=== PATIENT | male | born 1955 | race Hispanic/Latino ===

== ENCOUNTER 2018-02-18 11:12 | Emergency (ER) | payer OTHER ==
--- OUTSIDE RECORDS SUMMARY | 2018-02-18 11:14 | XMS REPORT | Clinical Summary ---
:1955 Author Organization [facility] Address [address] [place] [address] Care Team Providers Name Role Phone Michael Castaneda MD Primary Care Provider Unavailable Allergies No Known Allergies Current Medications Prescription Sig. Disp. Refills Start Date End Date Status insulin lispro (HumaLOG) Inject under the Active 100 unit/mL injection skin 2 (two) times a day before meals. (PER SLIDING SCALE) ARIPiprazole (ABILIFY) 10 Take 10 mg by Active MG tablet mouth every morning. esomeprazole (NexIUM) 40 Take 40 mg by Active MG capsule mouth every morning. FLUoxetine (PROzac) 20 MG Take 20 mg by Active capsule mouth 2 (two) times a day. gabapentin (NEURONTIN) 600 Take 600 mg by Active mg tablet mouth 3 (three) times a day. insulin detemir (LEVEMIR) Inject 20 Units Active 100 unit/mL injection under the skin 2 (two) times a day. tamsulosin (FLOMAX) 0.4 mg Take 0.4 mg by Active capsule,extended release mouth every 24hr morning. traZODone (DESYREL) 50 MG Take 50 mg by Active tablet mouth nightly as needed for sleep. venlafaxine XR Take 37.5 mg by Active (EFFEXOR-XR) 37.5 MG 24 hr mouth daily. capsule metFORMIN (GLUCOPHAGE) 500 Take 500 mg by Active mg tablet mouth 3 (three) times a day. cyanocobalamin 1000 MCG Take 1,000 mcg by Active tablet mouth every morning. ascorbic acid, vitamin C, Take 1,000 mg by Active (vitamin C) 1000 MG tablet mouth daily. cholecalciferol, vitamin Take 1,000 Units Active D3, (VITAMIN D3) 1,000 by mouth daily. unit tablet Active Problems Problem Noted Date Bradycardia 12/08/2016 Acidosis 12/08/2016 Parkinson disease 12/08/2016 Encounters Date Type Specialty Care Team Description 10/13/2017 Hospital Encounter Radiology Jessie García MD 10/13/2017 Hospital Encounter Radiology Jessie García MD Tremor 10/04/2017 Transcribe Orders Radiology Jessie García MD Tremor ( Primary Dx) after 02/17/2017 Social History Tobacco Use Types Packs/Day Years Used Date Never Smoker Alcohol Use Drinks/Week oz/Week Comments No Sex Assigned at Date Recorded Not on file Last Filed Vital Signs Not on file Plan of Treatment Health Maintenance Due Date Last Done Comments COLON CANCER SCREENING 2006 SHINGRIX VACCINE (#1) 2006 ZOSTER VACCINE 2016 INFLUENZA VACCINE 03/02/2018 Procedures Procedure Name Priority Date/Time Associated Diagnosis Comments NM BRAIN SPECT W I Routine 10/13/2017 2:43 PM Tremor Results for this 123 DATSCAN CDT procedure are in the results section. after 02/17/2017 Results NM Brain Spect W I 123 Datscan (10/13/2017 2:43 PM) Narrative Performed At PROCEDURE:NM BRAIN SPECT W I 123 DATSCAN [facility] INDICATION:Tremor. TECHNIQUE: The patient was pretreated with potassium iodide drops for thyroid protection and then injected with 4 mCi of I-123 DaTscan IV. Brain SPECT imaging was then performed. FINDINGS:Striatal uptake appears normal, bilaterally. IMPRESSION: 1.Normal study.No evidence for an underlying primary Parkinsonian syndrome. [facility]-[id number] Procedure Note Interface, Radiology Results Incoming - 10/13/2017 4:37 PM CDT PROCEDURE: NM BRAIN SPECT W I 123 DATSCAN INDICATION: Tremor. TECHNIQUE: The patient was pretreated with potassium iodide drops for thyroid protection and then injected with 4 mCi of I-123 DaTscan IV. Brain SPECT imaging was then performed. FINDINGS: Striatal uptake appears normal, bilaterally. IMPRESSION: 1. Normal study. No evidence for an underlying primary Parkinsonian syndrome. [facility]-[id number] Performing Organization Address City/State/Zipcode Phone Number [facility] [address] [place] [address] after 02/17/2017 Insurance Payer Benefit Plan / Group Subscriber ID Type Phone Address UHC MEDICARE AARP MEDICARE COMPLETE MCR xxxxxxxxx O [phone] [address] [place] [address]
[2018-02-18 11:42] LABS: Arterial Blood Carboxyhemoglob 1.7 % (0-1.5); Blood Gas Oxyhemoglobin 92.3 % (94-97); Blood O2 Saturation 94.5 % (92-98.5)
[2018-02-18 11:44] LABS: Protime INR 1.08
[2018-02-18 11:45] LABS: Absolute Lymphocytes (CBC) 2.1 K/uL (0.7-4.9); Absolute Monocytes 0.4 K/uL (0.1-1.3); Basophils % 0.7 % (0-1.3); Eosinophils % 2.9 % (0-4.4); Hematocrit 43.4 % (39.6-49.0); Lymphocytes % 46.1 % (15.3-44.8); MCH 32.1 pg (27.0-35.0); MCV 94.6 fL (80-100); MPV 9.3 fL (7.6-11.3); Monocytes % 7.8 % (3.3-12.3); RBC Red Blood Cell Count 4.59 M/uL (4.33-5.43)
--- NOTE | 2018-02-18 12:02 | RAD REPORT ---
EXAM DESCRIPTION: CT - Head Brain Wo Cont - 02/18/2018 11:44 am CLINICAL HISTORY: Transient alteration of awareness, patient found unresponsive COMPARISON: CT head November 2015 TECHNIQUE: Axial 5 mm thick images of the head were obtained without IV contrast. All CT scans are performed using dose optimization technique as appropriate and may include automated exposure control or mA/KV adjustment according to patient size. FINDINGS: No intracranial hemorrhage, mass, edema or shift of mid-line structures. No acute cortical based infarction. No cortical edema or sulcal effacement. Patient has underlying atrophy and chronic ischemic changes are mild to moderate in degree for the patient's age. Pattern is not substantially different from 2016. Ventricles are in proportion to any volume loss. No abnormal extra-axial fluid c ollections. Physiologic calcifications are present Mastoid air cells and visualized portions of the paranasal sinuses are clear. No acute bony findings. IMPRESSION: No hemorrhage, edema or other acute intracranial finding. Atrophy and chronic ischemic pattern similar to the 2016.
[2018-02-18 12:35] LABS: Urine Blood NEGATIVE (NEG); Urine Glucose 3+ (NEG); Urine Protein NEGATIVE (NEG)
[2018-02-18 12:40] LABS: Barbiturates NEGATIVE (NEGATIVE); Benzodiazepines POSITIVE (NEGATIVE); Cocaine NEGATIVE (NEGATIVE); METHAMPHETAM NEGATIVE (NEGATIVE); Methadone NEGATIVE (NEGATIVE); Opiates NEGATIVE (NEGATIVE); Phencyclidine NEGATIVE (NEGATIVE); THC Cannibis NEGATIVE (NEGATIVE); Urine Bacteria NONE SEEN /HPF (NONE SEEN); Urine RBC NONE SEEN /HPF (NONE SEEN)
[2018-02-18 12:41] LABS: Urine Amorphous Sediment 2+ /HPF (NONE SEEN); Urine Culture Reflex Order NOT NEEDED
[2018-02-18 13:16] LABS: Albumin 3.4 g/dL (3.4-5.0); Bilirubin Direct 0.1 mg/dL (0-0.2); Bilirubin Total 0.5 mg/dL (0.2-1.0); Potassium 3.9 mmol/L (3.5-5.1); Protein, Total 8.3 g/dL (6.4-8.2)
--- NOTE | 2018-02-18 13:35 | RAD REPORT ---
EXAM DESCRIPTION: Itzel Single View02/18/2018 1:25 pm CLINICAL HISTORY: Shortness breath COMPARISON: 2017 FINDINGS: The lungs appear clear of acute infiltrate. The heart is normal size IMPRESSION: No acute abnormalities displayed
[2018-02-18] MEDS ORDERED: NA CHLORIDE 0.9% 1,000 ML ONE (14:33)
--- NOTE | 2018-02-18 15:14 | ER ---
Nurse's Notes [facility] Name: David Lopez Age: 62 yrs Sex: Male : 1955 Arrival Date: 02/18/2018 Time: 11:13 Bed 2 Private MD: Diagnosis: Altered mental status, unspecified Presentation: 02/18 11:16 Presenting complaint: EMS states: family called, the was unresponsive, family was tw2 crying, not much information given from family. Transition of care: patient was not received from another setting of care. Onset of symptoms was February 18, 2018. Risk Assessment: Do you want to hurt yourself or someone else? Patient reports no desire to harm self or others. Care prior to arrival: None. 11:16 Method Of Arrival: EMS: [facility] tw2 11:16 Acuity: LEANNA 2 tw2 11:44 Initial Sepsis Screen: Does the patient meet any 2 criteria? Altered Mental Status. hb Does the patient have a suspected source of infection? No. Patient's initial sepsis screen is negative. Historical: - Allergies: 11:15 No Known Allergies; tw2 - Home Meds: 11:21 tamsulosin 0.4 mg oral cp24 1 cap once daily [Active]; simvastatin 20 mg Oral tab 1 tab iw once daily [Active]; gemfibrozil 600 mg Oral tab daily [Active]; sotalol 80 mg Oral tab 1 tab 2 times per day [Active]; trazodone 50 mg Oral tab nightly [Active]; fluoxetine 40 mg Oral cap 1 cap once daily [Active]; Lyrica 50 mg Oral daily [Active]; oxycodone-acetaminophen 10-650 mg Oral tab every 4 hours [Active]; gabapentin 600 mg oral tab 1 tab 3 times per day [Active]; Risperdal 2 mg Oral tab 1 tab once daily [Active]; alprazolam 1 mg Oral TbDL 1 tab 3 times per day [Active]; omeprazole 20 mg Oral cpDR 1 cap once daily [Active]; - PMHx: 11:15 CVA; Parkinsons; kidney failure; NIDDM; Diabetes - IDDM; Hypertension; tw2 - Immunization history:: Adult Immunizations. - Social history:: Smoking status: unknown. - Ebola Screening: : Patient denies travel to an Ebola-affected area in the 21 days before illness onset Patient negative for fever greater than or equal to 101.5 degrees Fahrenheit, and additional compatible Ebola Virus Disease symptoms Patient denies exposure to infectious person Patient denies travel to an Ebola-affected area in the 21 days before illness onset No symptoms or risks identified at this time. Screenin:18 Abuse screen: Denies threats or abuse. Nutritional screening: No deficits noted. tw2 Tuberculosis screening: No symptoms or risk factors identified. Fall Risk Secondary diagnosis (15 points) impaired mobility, CVA. Assessment: 11:20 General: Appears in no apparent distress. Behavior is Responsive to painful stimuli. hb Pain: Unable to use pain scale. FLACC scale score is 0 out of 10. Neuro: Level of Consciousness is obtunded, Oriented to none Speech is slurred, Pupils are PERRLA, sluggish. Cardiovascular: Heart tones S1 S2 present Capillary refill < 3 seconds Patient's skin is warm and dry. Rhythm is regular. Respiratory: Airway is patent Trachea midline Respiratory effort is even, unlabored, Respiratory pattern is regular, symmetrical, Breath sounds are clear bilaterally. GI: Abdomen is non-distended, Bowel sounds present X 4 quads. Abd is soft and non tender X 4 quads. : No signs and/or symptoms were reported regarding the genitourinary system. Genitalia appear normal. EENT: No deficits noted. Derm: Skin is intact, is healthy with good turgor, Skin is pink, warm \T\ dry. Musculoskeletal: Capillary refill < 3 seconds. 11:39 Reassessment: Pt transported to CT via stretcher with tech. hb 12:00 Reassessment: Patient appears in no apparent distress at this time. No changes from hb previously documented assessment. Patient and/or family updated on plan of care and expected duration. Pain level reassessed. 13:00 Reassessment: Patient appears in no apparent distress at this time. No changes from hb previously documented assessment. Patient and/or family updated on plan of care and expected duration. Pain level reassessed. 13:32 Reassessment: BRICE Avalos at bedside with . hb 15:05 Reassessment: Patient appears in no apparent distress at this time. Patient and/or hb family updated on plan of care and expected duration. Pain level reassessed. pt more alert at this time, eyes open and responds to verbal stimuli. 15:41 Reassessment: Patient appears in no apparent distress at this time. No changes from hb previously documented assessment. Patient and/or family updated on plan of care and expected duration. Pain level reassessed. 16:30 Reassessment: Patient appears in no apparent distress at this time. No changes from hb previously documented assessment. Patient and/or family updated on plan of care and expected duration. Pain level reassessed. Pt remains confused, alert to person and place only. Transfer to [facility] pending. 17:07 Reassessment: Patient appears in no apparent distress at this time. No changes from tw2 previously documented assessment. Patient and/or family updated on plan of care and expected duration. Pain level reassessed. Vital Signs: 11:17 BP 167 / 80; Pulse 64; Resp 17; Temp 98.7(A); Pulse Ox 98% on R/A; tw2 11:53 BP 136 / 71; Pulse 63; Resp 15; Pulse Ox 100% on R/A; hb 13:07 BP 136 / 80; Pulse 61; Resp 14; Pulse Ox 96% on R/A; tw2 13:30 BP 139 / 68; Pulse 59; Resp 16; Pulse Ox 96% on R/A; hb 14:00 BP 140 / 63; Pulse 62; Resp 17; Pulse Ox 96% on R/A; tw2 15:06 BP 143 / 63; Pulse 63; Resp 15; Pulse Ox 98% on R/A; tw2 15:41 BP 151 / 63; Pulse 63; Resp 16; Pulse Ox 96% on R/A; tw2 16:56 BP 129 / 55; Pulse 62; Resp 15; Pulse Ox 96% on R/A; hb [place] Coma Score: 11:27 Eye Response: to pain(2). Verbal Response: incomprehensible(2). Motor Response: jr8 localizes pain(5). Total: 9. ED Course: 11:13 Patient arrived in ED. tw2 11:17 Triage completed. tw2 11:17 Inserted saline lock: 20 gauge in right antecubital area, using aseptic technique. tw2 ,using aseptic technique. per BERNY Martinez Blood collected. 11:18 Robbie Brown PA is PHCP. jr8 11:18 Scooter Hill MD is Attending Physician. jr8 11:18 Arm band placed on. tw2 11:18 Bed in low position. Call light in reach. Side rails up X2. supervisor cabinetmaker on. Pulse tw2 ox on. NIBP on. 11:32 Michelle Alvarez, RN is Primary Nurse. hb 11:37 Mckeon cath inserted, using sterile technique, 16 Fr., by la, balloon inflated, to hb gravity drainage, urine specimen collected. returned clear yellow urine. Patient tolerated well. 11:[address] via stretcher. nj 11:44 CT Head Brain wo Cont In Process Unspecified. EDMS 12:07 EKG done, by geotechnical intern. reviewed by Scooter Hill MD. tc 13:26 Chest Single View XRAY In Process Unspecified. EDMS Administered Medications: 14:33 Drug: NS 0.9% 1000 ml Route: IV; Rate: 75 ml/hr; Site: right antecubital; tw2 17:07 Follow up: IV Status: Infusion continued upon transfer tw2 Outcome: 15:14 ER care complete, transfer ordered by . jr8 17:14 Patient left the ED. hb Signatures: Dispatcher [employer] EDMS Joi Zheng RN RN iw Robbie Brown PA PA jr8 Sarah Guardado, taxi truck driver EKG Ttc Michelle Alvarez RN RN Marsha Enriquez RN RN tw2 Kailash Delgado Corrections: (The following items were deleted from the chart) 11:22 11:15 PMHx: CVA; iw iw 11:22 11:15 PMHx: Diabetes - IDDM; iw iw 11 11:15 PMHx: Hypertension; iw iw 11: 11:15 PMHx: kidney failure; iw iw 11:15 PMHx: NIDDM; iw iw 11:22 11:15 PMHx: Parkinsons; iw iw 16:54 15:05 Reassessment: Patient appears in no apparent distress at this time. Patient hb and/or family updated on plan of care and expected duration. Pain level reassessed. Patient is alert, oriented x 3, equal unlabored respirations, skin warm/dry/pink. pt more alert at this time, eyes open and responds to verbal stimuli tw2 16:55 15:05 Reassessment: Patient appears in no apparent distress at this time. Patient hb and/or family updated on plan of care and expected duration. Pain level reassessed. Patient is alert, oriented x 3, equal unlabored respirations, skin warm/dry/pink. pt more alert at this time, eyes open and responds to verbal stimuli hb 16:55 15:41 Reassessment: Patient appears in no apparent distress at this time. No changes hb from previously documented assessment. Patient and/or family updated on plan of care and expected duration. Pain level reassessed. Patient is alert, oriented x 3, equal unlabored respirations, skin warm/dry/pink. tw2
--- NOTE | 2018-02-18 15:14 | EDPHYS ---
Physician Documentation [facility] Name: David Lopez Age: 62 yrs Sex: Male : 1955 Arrival Date: 02/18/2018 Time: 11:13 Bed 2 Private MD: ED Physician Scooter Hill HPI: 02/18 11:27 This 62 yrs old Male presents to ER via EMS with complaints of Unresponsive. jr8 11:27 Onset: The symptoms/episode began/occurred acutely, today. Severity of symptoms: At jr8 their worst the symptoms were moderate in the emergency department the symptoms are unchanged. Patient's baseline: Neuro: alert and fully oriented, Speech: normal. It is unknown whether or not the patient has had similar symptoms in the past. It is unknown whether or not the patient has recently seen a physician. Patient came in by EMS after being called out for unresponsive patient. EMS stated that family found him like that. Last known normal unknown. Patient upon arrival on responsive to painful stimulus. Speech incomprehensible . Historical: - Allergies: 11:15 No Known Allergies; tw2 - Home Meds: 11:21 tamsulosin 0.4 mg oral cp24 1 cap once daily [Active]; simvastatin 20 mg Oral tab 1 tab iw once daily [Active]; gemfibrozil 600 mg Oral tab daily [Active]; sotalol 80 mg Oral tab 1 tab 2 times per day [Active]; trazodone 50 mg Oral tab nightly [Active]; fluoxetine 40 mg Oral cap 1 cap once daily [Active]; Lyrica 50 mg Oral daily [Active]; oxycodone-acetaminophen 10-650 mg Oral tab every 4 hours [Active]; gabapentin 600 mg oral tab 1 tab 3 times per day [Active]; Risperdal 2 mg Oral tab 1 tab once daily [Active]; alprazolam 1 mg Oral TbDL 1 tab 3 times per day [Active]; omeprazole 20 mg Oral cpDR 1 cap once daily [Active]; - PMHx: 11:15 CVA; Parkinsons; kidney failure; NIDDM; Diabetes - IDDM; Hypertension; tw2 - Immunization history:: Adult Immunizations. - Social history:: Smoking status: unknown. - Ebola Screening: : Patient denies travel to an Ebola-affected area in the 21 days before illness onset Patient negative for fever greater than or equal to 101.5 degrees Fahrenheit, and additional compatible Ebola Virus Disease symptoms Patient denies exposure to infectious person Patient denies travel to an Ebola-affected area in the 21 days before illness onset No symptoms or risks identified at this time. ROS: 11:27 Unable to obtain ROS due to altered mental status. jr8 Exam: 11:27 Head/Face: Normocephalic, atraumatic. Eyes: Pupils equal round and reactive to light jr8 but sluggish. Lids and lashes normal. Conjunctiva and sclera are non-icteric and not injected. Cornea within normal limits. Periorbital areas with no swelling, redness, or edema. ENT: Nares patent. No nasal discharge, no septal abnormalities noted. Tympanic membranes are normal and external auditory canals are clear. Oropharynx with no redness, swelling, or masses, exudates, or evidence of obstruction, uvula midline. Mucous membranes moist. Cardiovascular: Regular rate and rhythm with a normal S1 and S2. No gallops, murmurs, or rubs. Normal PMI, no JVD. No pulse deficits. Respiratory: Lungs have equal breath sounds bilaterally, clear to auscultation and percussion. No rales, rhonchi or wheezes noted. No increased work of breathing, no retractions or nasal flaring. Abdomen/GI: Soft, non-tender, with normal bowel sounds. No distension or tympany Skin: Warm, dry with normal turgor. Normal color with no rashes, no lesions, and no evidence of cellulitis. 11:27 Neuro: Orientation: Not oriented to person, place, time, situation, Mentation: slow to respond, confused, unable to follow commands, somnolent, responsive to pain, seizure activity, is not displayed by the patient, Abnormal movements: there are no abnormal movements. 15:14 Radiologist reports: negative for acute findings jr8 Vital Signs: 11:17 BP 167 / 80; Pulse 64; Resp 17; Temp 98.7(A); Pulse Ox 98% on R/A; tw2 11:53 BP 136 / 71; Pulse 63; Resp 15; Pulse Ox 100% on R/A; hb 13:07 BP 136 / 80; Pulse 61; Resp 14; Pulse Ox 96% on R/A; tw2 13:30 BP 139 / 68; Pulse 59; Resp 16; Pulse Ox 96% on R/A; hb 14:00 BP 140 / 63; Pulse 62; Resp 17; Pulse Ox 96% on R/A; tw2 15:06 BP 143 / 63; Pulse 63; Resp 15; Pulse Ox 98% on R/A; tw2 15:41 BP 151 / 63; Pulse 63; Resp 16; Pulse Ox 96% on R/A; tw2 16:56 BP 129 / 55; Pulse 62; Resp 15; Pulse Ox 96% on R/A; hb [place] Coma Score: 11:27 Eye Response: to pain(2). Verbal Response: incomprehensible(2). Motor Response: jr8 localizes pain(5). Total: 9. MDM: 11:18 Patient medically screened. jr8 14:29 Data reviewed: vital signs, nurses notes, lab test result(s), EKG, radiologic studies, jr8 CT scan, plain films. Data interpreted: Pulse oximetry: on room air is 96 %. Interpretation: normal. Counseling: I had a detailed discussion with the patient and/or guardian regarding: the historical points, exam findings, and any diagnostic results supporting the discharge/admit diagnosis, lab results, radiology results, the need for further work-up and treatment in the hospital. ED course: The of showed up after a while. I went in to introduce myself and discussed with her that thus far all labs and imaging along with EKG has been unremarkable. Before being able to finish talking to her she cut me off and asked if I was a doctor. I told her I was a PA and she goes on to say that she needs to see a "doctor doctor". I told her that we have done everything that is medically prudent thus far but if you like I can go get my attending. kept interrupting me while trying to talk to her. I was finally able to tell her that we are not trying to send him home and want to admit him. finally listened and was pleased. Wants to be transferred to another facility though for further care which I told her we would be more then happy to do so. 15:13 ED course: Dr. Hill Talked to [facility] in which they accepted patient . 8 02/18 11:20 Order name: ABG; Complete Time: 12:20 8 07/20 11:20 Order name: Urine Microscopic Only; Complete Time: 12:42 02/18 11:20 Order name: Basic Metabolic Panel; Complete Time: 13:21 02/18 11:20 Order name: Blood Culture Adult (2) 02/18 11:20 Order name: CBC with Diff; Complete Time: 12:20 02/18 11:20 Order name: CPK; Complete Time: 13:21 02/18 11:20 Order name: Lactate; Complete Time: 12:20 02/18 11:20 Order name: LFT's; Complete Time: 13:21 02/18 11:20 Order name: Lipase; Complete Time: 13:21 02/18 11:20 Order name: Procalcitonin; Complete Time: 12:20 02/18 11:20 Order name: Protime (+inr); Complete Time: 12:20 02/18 11:20 Order name: Troponin (emerg Dept Use Only); Complete Time: 12:20 02/18 11:20 Order name: UDS; Complete Time: 12:42 02/18 11:23 Order name: AMMONIA; Complete Time: 12:20 02/18 11:20 Order name: Cath; Complete Time: 11:39 02/18 11:20 Order name: Chest Single View XRAY; Complete Time: 13:38 02/18 11:20 Order name: Accucheck; Complete Time: 11:33 02/18 11:20 Order name: Cardiac monitoring; Complete Time: 11:02/18 11:20 Order name: EKG - Nurse/Tech; Complete Time: 12:17 02/18 11:20 Order name: IV Saline Lock - Large Bore; Complete Time: 11:02/18 11:20 Order name: Labs collected and sent; Complete Time: :02/18 11:20 Order name: O2 Per Protocol; Complete Time: :02/18 11:20 Order name: O2 Sat Monitoring; Complete Time: :02/18 11:20 Order name: Urine Dipstick-Ancillary (obtain specimen); Complete Time: 11:39 02/18 11:20 Order name: CT Head Brain wo Cont; Complete Time: 12:20 jr8 02/18 12:22 Order name: Urine Dipstick--Ancillary (enter results); Complete Time: 12:42 bd 02/18 14:38 Order name: EKG Electrocardiogram EDMS Administered Medications: 14:33 Drug: NS 0.9% 1000 ml Route: IV; Rate: 75 ml/hr; Site: right antecubital; tw2 17:07 Follow up: IV Status: Infusion continued upon transfer tw2 Disposition: 02/19 07:12 Co-signature as Attending Physician, Scooter Hill MD. rn Disposition: 02/18/18 15:14 Transfer ordered to [facility]. Diagnosis is Altered mental status, unspecified. - Reason for transfer: Higher level of care. - Accepting physician is Grupo. - Condition is Stable. - Problem is new. - Symptoms have improved. Signatures: Dispatcher [employer] EDMS Joi Zheng RN RN iw Scooter Hill MD MD rn Roszak, Josh, PA PA jr8 Michelle Alvarez RN RN Marsha Enriquez RN RN tw2 Corrections: (The following items were deleted from the chart) 02/18 11:22 11:15 PMHx: CVA; [facility] 11:22 11:15 PMHx: Diabetes - IDDM; [facility] 11:22 11:15 PMHx: Hypertension; [facility] 11:22 11:15 PMHx: kidney failure; [facility] 11:22 11:15 PMHx: NIDDM; [facility] 11:22 11:15 PMHx: Parkinsons; [facility] 17:14 15:14 02/18/2018 15:14 Transfer ordered to [facility]. hb Diagnosis is Altered mental status, unspecified. Reason for transfer: Higher level of care. Accepting physician is Grupo. Condition is Stable. Problem is new. Symptoms have improved. jr8
[2018-02-18 17:18] VITALS: TEMP 98.7
[2018-02-18 17:25] VITALS: O2SAT 96
[2018-02-18 17:26] VITALS: BP 129/55
--- NOTE | 2018-02-18 18:49 | EKG ---
Test Date: 2018-02-18 Test Time: 11:58:58 [employer] Sales Representative: CHERRY MEASUREMENT RESULTS: Intervals: Rate: 61 MA: 186 QRSD: 88 QT: 408 QTc: 410 [place]: P: 50 MA: 186 QRS: 31 T: -55 INTERPRETIVE STATEMENTS: Normal sinus rhythm T wave abnormality, consider inferolateral ischemia Abnormal ECG Compared to ECG 11/20/2016 15:20:03 T-wave abnormality now present Possible ischemia now present Sinus bradycardia no longer present Myocardial infarct finding no longer present Electronically Signed On 02-18-18 18:47:21 CDT by Fransisco Edouard
== END 2018-02-18 17:14 | disposition short-term general hospital (02) ==
LOC: ER 11:12
DX: R41.82 Altered mental status, unspecified (principal); N19 Unspecified kidney failure; I10 Essential (primary) hypertension; E11.9 Type 2 diabetes mellitus without complications; G20 Parkinson's disease; Z86.73 Personal history of transient ischemic attack (TIA), and cerebral infarction without residual deficits
CPT/HCPCS: 36415; 51702; 70450; 71045; 80048; 80076; 80307 ×8; 82140; 82550; 82805; 83605; 83690; 84145; 84484; 85025; 85610; 87040 ×2; 93005; 96360; 96361; 99285; J7030; 81003; 81015

== ENCOUNTER 2018-05-27 18:58 | Inpatient (IN) | payer OTHER ==
--- OUTSIDE RECORDS SUMMARY | 2018-05-27 19:00 | XMS REPORT ---
:1955 Author Organization [employer] Care Team Providers Name Role Phone Roxanne Norris Provider Role Unavailable Allergies No Known Allergies Problems Problem Type Condition Code Onset Dates Condition Status Problem Chronic kidney disease, unspecified N18.9 Active CKD stage Problem Bipolar affective disorder, F31.9 Active remission status unspecified Problem Chronic constipation K59.09 Active Problem Polyarthralgia M25.50 Active Problem Chronic pain syndrome G89.4 Active Problem History of CVA (cerebrovascular Z86.73 Active accident) Problem Type 2 diabetes mellitus with E11.21 Active diabetic nephropathy Problem Hyperlipidemia, unspecified E78.5 Active hyperlipidemia type Problem Depression with anxiety F41.8 Active Problem Long-term insulin use Z79.4 Active Problem Uncontrolled type 2 diabetes E11.65 Active mellitus with hyperglycemia Problem 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 Problem Hypertension, unspecified type I10 Active Medications No Known Medications Results No Known Results Summary Purpose [employer] Submission
--- OUTSIDE RECORDS SUMMARY | 2018-05-27 19:00 | XMS REPORT ---
:1955 Author Organization [employer] Care Team Providers Name Role Phone Roxnane Norris Provider Role Unavailable Allergies, Adverse Reactions, Alerts Substance Reaction Event Type N.K.D.A. 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 Assessment Depression with anxiety F41.8 Active Problem Hypertension, unspecified type I10 Active Assessment Chronic pain syndrome G89.4 Active Problem Chronic kidney disease, unspecified N18.9 Active CKD stage Problem Bipolar affective disorder, F31.9 Active remission status unspecified Problem Chronic constipation K59.09 Active Problem Polyarthralgia M25.50 Active Problem Chronic pain syndrome G89.4 Active Assessment Chronic constipation K59.09 Active Assessment Polyarthralgia M25.50 Active Problem History of CVA (cerebrovascular Z86.73 Active accident) Assessment History of CVA (cerebrovascular Z86.73 Active accident) Problem Type 2 diabetes mellitus with E11.21 Active diabetic nephropathy Problem Hyperlipidemia, unspecified E78.5 Active hyperlipidemia type Problem Depression with anxiety F41.8 Active Problem Long-term insulin use Z79.4 Active Assessment Long-term insulin use Z79.4 Active Assessment 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 Assessment Hyperlipidemia, unspecified E78.5 Active hyperlipidemia type Assessment Chronic kidney disease, unspecified N18.9 Active CKD stage Problem Uncontrolled type 2 diabetes E11.65 Active mellitus with hyperglycemia Assessment Uncontrolled type 2 diabetes E11.65 Active mellitus with hyperglycemia Assessment Hypertension, unspecified type I10 Active Medications Medication Code Code Instructions Start End Status Dosage System Date Date Gemfibrozil ND 57143434870 600 MG Orally Apr 20, Active 1 tablet Once a day 2017 Simvastatin ND 43484590828 20 mg Orally Active 1 tablet in Once a day the evening Risperidone ND 39806048533 2 MG Orally Active 1 tablet in Once a day evening Tamsulosin HCl ND 30489424364 0.4 MG Orally December Active 1 capsule Once a day 2018 Lyrica [facility] 08000098136 50 MG Orally Active 1 capsule Twice a day Levemir [facility] 30373709883 100 UNIT/ML Apr 20, Active 20 units FlexTouch Subcutaneous 2017 Twice daily BusPIRone HCl [facility] 93221485608 7.5 MG Orally Apr 20, Active 1 tablet as Twice a day 2017 needed for anxiety Sotalol HCl [facility] 31753619047 80 MG Orally Active 1 tablet every 12 hrs F34-Duodaj [facility] 82605023989 1 MG Orally Active as directed Alprazolam [facility] 14948742589 1 MG Orally Active 1 tablet Twice a day Oxycodone-Aceta [facility] 99582777323 10-325 MG Active 1 tablet as minophen Orally every 6 needed hrs Fluoxetine HCl [facility] 58453207767 40 MG Orally Active 1 capsule Once a day Results No Known Results Summary Purpose eClinicalWorks Submission
--- OUTSIDE RECORDS SUMMARY | 2018-05-27 19:00 | XMS REPORT | Clinical Summary ---
:1955 Author Organization [facility] Address [address] [place] [address] Care Team Providers Name Role Phone Michael [...] Date Bradycardia 12/08/2016 Acidosis 12/08/2016 Parkinson disease (HCC) 12/08/2016 Encounters Date Type Specialty Care Team Description 10/13/2017 Hospital Encounter Radiology Jessie García MD 10/13/2017 Hospital Encounter Radiology Jessie García MD Tremor 10/04/2017 Transcribe Orders Radiology Jessie García MD Tremor ( Primary Dx) after 05/26/2017 Social History Tobacco Use Types Packs/Day Years [...] procedure are in the results section. after 05/26/2017 Results NM Brain Spect W I 123 Datscan (10/13/2017 2:43 PM) Narrative Performed At PROCEDURE:NM BRAIN SPECT W I [facility] INDICATION:Tremor. TECHNIQUE: The patient was pretreated with potassium iodide drops for thyroid protection and then injected with 4 mCi of I-123 DaTscan IV. Brain SPECT imaging was then performed. FINDINGS:Striatal uptake appears normal, bilaterally. IMPRESSION: 1.Normal study.No evidence for an underlying primary Parkinsonian syndrome. [facility]-[id number] Procedure Note Interface, Radiology Results Incoming - [...] evidence for an underlying primary Parkinsonian syndrome. [facility]-[id number] Performing Organization Address City/State/Zipcode Phone Number [facility] [address] [place] [address] after 05/26/2017 Insurance Payer Benefit Plan / Group Subscriber ID Type Phone Address UHC MEDICARE AARP MEDICARE COMPLETE [facility] xxxxxxxxx O
--- NOTE | 2018-05-27 19:58 | RAD REPORT ---
EXAM DESCRIPTION: CT - Head Brain Wo Cont - 05/27/2018 7:46 pm CLINICAL HISTORY: Alteration of awareness/confusion COMPARISON: November 2016 TECHNIQUE: Computed axial tomography of the head was obtained. IV contrast was not requested. All CT scans are performed using dose optimization technique as appropriate and may include automated exposure control or mA/KV adjustment according to patient size. FINDINGS: An intracranial bleed is not seen . The ventricles are normal in caliber. No extra-axial fluid collection is noted. Mild low-density areas within periventricular, deep and sub cortical white matter likely represent ischemic changes secondary to small vessel disease. Fluid within the sinuses/ mastoids is not seen. IMPRESSION: No acute intracranial abnormality is seen. If patient's symptoms persist MRI of the bra in would be recommended.
--- NOTE | 2018-05-27 20:38 | RAD REPORT ---
EXAM DESCRIPTION: Itzel Single View05/27/2018 8:00 pm CLINICAL HISTORY: Chest pain COMPARISON: January 2018 FINDINGS: The lungs appear clear of acute infiltrate. The heart is normal size IMPRESSION: No acute abnormalities displayed
[2018-05-27 21:41] LABS: Absolute Lymphocytes (CBC) 2.4 K/uL (0.7-4.9); Absolute Monocytes 0.5 K/uL (0.1-1.3); Absolute Neutrophil 3.3 K/uL (1.8-8.0); Basophils % 0.6 % (0-1.3); Eosinophils % 1.8 % (0-4.4); Hematocrit 38.9 % (39.6-49.0); Lymphocytes % 38.3 % (15.3-44.8); MCH 32.4 pg (27.0-35.0); MCV 95.8 fL (80-100); MPV 8.5 fL (7.6-11.3); Monocytes % 7.1 % (3.3-12.3); Protime INR 1.11; RBC Red Blood Cell Count 4.06 M/uL (4.33-5.43)
[2018-05-27 22:06] LABS: ALT/SGPT 28 U/L (12-78); AST/SGOT 24 U/L (15-37); Albumin 3.7 g/dL (3.4-5.0); Alkaline Phosphatase 97 U/L (45-117); BUN Blood Urea Nitrogen 21 mg/dL (7-18); Bicarbonate 25 mmol/L (21-32); Bilirubin Direct 0.1 mg/dL (0-0.2); Bilirubin Total 0.4 mg/dL (0.2-1.0); CKMB Creatine Kinase MB < 1.0 ng/mL (0.3-3.6); Creatine Phosphokinase 102 U/L (39-308); Glucose Level 138 mg/dL (74-106); Lipase 135 U/L (73-393); Potassium 4.8 mmol/L (3.5-5.1); Protein, Total 8.4 g/dL (6.4-8.2); Sodium Level 142 mmol/L (136-145); Troponin (Emerg Dept Use Only) < 0.02 ng/mL (0.0-0.045)
--- NOTE | 2018-05-27 22:37 | ER ---
Nurse's Notes [facility] Name: David Lopez Age: 63 yrs Sex: Male : 1955 Arrival Date: 05/27/2018 Time: 19:07 Bed 6 Private MD: Diagnosis: Altered mental status, unspecified Presentation: 05/27 19:13 Presenting complaint: EMS states: "Family says he has has some altered mental status jd3 for the past 2 hours.". Transition of care: patient was not received from another setting of care. Onset of symptoms was May 27, 2018. Risk Assessment: Do you want to hurt yourself or someone else? Patient reports no desire to harm self or others. Initial Sepsis Screen: Does the patient meet any 2 criteria? Altered Mental Status. No. Patient's initial sepsis screen is negative. Does the patient have a suspected source of infection? No. Patient's initial sepsis screen is negative. Care prior to arrival: None. 19:13 Acuity: LEANNA 2 jd3 19:13 Method Of Arrival: EMS: [facility] jd3 Historical: - Allergies: 21:55 No Known Allergies; jd3 - Home Meds: 19:17 simvastatin 20 mg Oral tab 1 tab once daily [Active]; Risperdal 2 mg Oral tab 1 tab jd3 once daily [Active]; 21:55 alprazolam 1 mg Oral TbDL 1 tab 3 times per day [Active]; fluoxetine 40 mg Oral cap 1 jd3 cap once daily [Active]; gabapentin 600 mg Oral tab 1 tab 3 times per day [Active]; gemfibrozil 600 mg Oral tab daily [Active]; Lyrica 50 mg Oral daily [Active]; omeprazole 20 mg Oral cpDR 1 cap once daily [Active]; oxycodone-acetaminophen 10-650 mg Oral tab every 4 hours [Active]; sotalol 80 mg Oral tab 1 tab 2 times per day [Active]; tamsulosin 0.4 mg Oral cp24 1 cap once daily [Active]; trazodone 50 mg Oral tab nightly [Active]; - PMHx: 21:55 CVA; Diabetes - NIDDM; Hypertension; jd3 - PSHx: 21:55 back sx; neck sx; hip sx; jd3 - Immunization history:: Adult Immunizations unknown. - Social history:: Smoking status: unknown. - Ebola Screening: : Patient negative for fever greater than or equal to 101.5 degrees Fahrenheit, and additional compatible Ebola Virus Disease symptoms. Screenin:24 Abuse screen: Denies threats or abuse. Nutritional screening: No deficits noted. jd3 Tuberculosis screening: No symptoms or risk factors identified. Fall Risk Ambulatory Aid- Crutches/Cane/Walker (15 pts). Gait- Impaired (20 pts.). Mental Status- Overestimates/Forgets Limitations (15 pts.). Total Bassett Fall Scale indicates High Risk Score (45 or more points). Fall prevention measures have been instituted. Side Rails Up X 2 Placed Close to Nursing Station Frequent Obs/Assessments Occuring. Assessment: 19:18 General: Appears uncomfortable, Behavior is calm, inappropriate for age. Pain: Denies jd3 pain. Neuro: Level of Consciousness is awake, confused, Oriented to person, place. Cardiovascular: Heart tones S1 S2 present Capillary refill < 3 seconds Patient's skin is warm and dry. Respiratory: Airway is patent Respiratory effort is even, unlabored, Respiratory pattern is regular, symmetrical, Breath sounds are clear bilaterally. GI: Abdomen is round non-distended, Bowel sounds present X 4 quads. Abd is soft and non tender X 4 quads. Patient currently denies nausea, vomiting. : No signs and/or symptoms were reported regarding the genitourinary system. EENT: No signs and/or symptoms were reported regarding the EENT system. Derm: Skin is intact, Skin is dry, Skin is normal, Skin temperature is warm. 20:20 Reassessment: Patient appears in no apparent distress at this time. Patient and/or jd3 family updated on plan of care and expected duration. Pain level reassessed. even and unlabored respirations, no distress noted at this time. 21:05 Reassessment: Patient appears in no apparent distress at this time. No changes from jd3 previously documented assessment. Patient and/or family updated on plan of care and expected duration. Pain level reassessed. 21:56 Reassessment: Patient appears in no apparent distress at this time. No changes from jd3 previously documented assessment. Patient and/or family updated on plan of care and expected duration. Pain level reassessed. family at bedside. 22:30 Reassessment: Patient appears in no apparent distress at this time. No changes from jd3 previously documented assessment. Patient and/or family updated on plan of care and expected duration. Pain level reassessed. 23:18 Reassessment: Patient appears in no apparent distress at this time. No changes from jd3 previously documented assessment. Patient and/or family updated on plan of care and expected duration. Pain level reassessed. 05/28 00:08 Reassessment: Patient appears in no apparent distress at this time. No changes from jd3 previously documented assessment. Patient and/or family updated on plan of care and expected duration. Pain level reassessed. Vital Signs: 05/27 19:17 BP 121 / 77; Pulse 85; Resp 16 S; Temp 98.3(O); Pulse Ox 96% on R/A; Weight 97.52 kg jd3 (R); Height 5 ft. 0 in. (152.40 cm) (R); Pain 0/10; 20:30 BP 124 / 74; Pulse 84; Resp 16 S; Pulse Ox 98% on R/A; jd3 21:03 BP 100 / 69; Pulse 72; Resp 17 S; Pulse Ox 97% on R/A; jd3 21:55 BP 95 / 81; Pulse 70; Resp 16 S; Pulse Ox 100% on R/A; jd3 23:00 BP 106 / 75; Pulse 74; Resp 15 S; Pulse Ox 97% on R/A; jd3 05/28 00:08 BP 121 / 68; Pulse 77; Resp 16 S; Pulse Ox 96% on R/A; jd3 05/27 19:17 Body Mass Index 41.99 (97.52 kg, 152.40 cm) jd3 ED Course: 05/27 19:07 Patient arrived in ED. ak1 19:08 Rory Rust, BERNY is Primary Nurse. jd3 19:14 Triage completed. jd3 19:18 Dannie Rudolph MD is Attending Physician. kdr 19:18 Arm band placed on. jd3 19:24 Patient has correct armband on for positive identification. Placed in gown. Bed in low jd3 position. Call light in reach. Side rails up X2. 19:46 CT Head Brain wo Cont In Process Unspecified. EDMS 19:53 CT completed. Patient tolerated procedure well. Patient moved to radiology. vm2 19:58 X-ray completed. Patient tolerated procedure well. Patient moved back from radiology. 1 19:59 Chest Single View XRAY In Process Unspecified. EDMS 20:17 Inserted saline lock: 20 gauge in right antecubital area, using aseptic technique. jd3 Blood collected. 22:10 Notified ED physician of a critical lab result(s). LAC 2.1 Notified primary nurse of jb4 LAC 2.1. 22:11 Blood Culture Adult (2) Sent. mw2 22:11 CBC with Diff Sent. mw2 22:11 Ckmb Sent. mw2 22:11 CPK Sent. mw2 22:11 Lactate Sent. mw2 22:12 LFT's Sent. mw2 22:12 Lipase Sent. mw2 22:14 Basic Metabolic Panel Sent. mw2 22:36 Reshma Byrd MD is Hospitalizing Provider. kdr 22:45 Straight cath inserted, using sterile technique, 16 Fr. Specimen obtained. Returned jd3 clear yellow urine. Patient tolerated well. 23:26 No provider procedures requiring assistance completed. Patient admitted, IV remains in jd3 place. Administered Medications: No medications were administered Outcome: 22:36 Decision to Hospitalize by Provider. kdr 05/28 00:18 Admitted to Tele accompanied by tech, via stretcher, room 215, with chart, Report jd3 called to [place] RN Condition: stable Instructed on the need for admit, Demonstrated understanding of instructions. 00:36 Patient left the ED. jd3 Signatures: Dispatcher [employer] EDMS Dannie Rudolph MD MD kdr Harvey, Martha 1 Dona Gilmore, RN RN ak1 Rodney Borrero RN RN jb4 Rianna Abdul [facility] Rory Rust RN RN jPrabhjot Miles mw2 Corrections: (The following items were deleted from the chart) 05/27 21:04 20:57 BP 124 / 74; Pulse 84bpm; Resp 16bpm; Spontaneous; Pulse Ox 98% RA; jd3 jd3 21:05 20:20 Reassessment: Patient appears in no apparent distress at this time. Patient jd3 and/or family updated on plan of care and expected duration. Pain level reassessed. Patient is alert, oriented x 3, equal unlabored respirations, skin warm/dry/pink. jd3 21:55 19:25 PMHx: Dementia; jd3 jd3 22:05 19:18 Musculoskeletal: Circulation, motion, and sensation intact. jd3 jd3 22:28 19:13 Initial Sepsis Screen: Does the patient meet any 2 criteria? No. Patient's jd3 initial sepsis screen is negative. Does the patient have a suspected source of infection? No. Patient's initial sepsis screen is negative. jd3
--- NOTE | 2018-05-27 22:37 | EDPHYS ---
Physician Documentation [facility] Name: David Lopez Age: 63 yrs Sex: Male : 1955 Arrival Date: 05/27/2018 Time: 19:07 Bed 6 Private MD: ED Physician Dannie Rudolph HPI: 05/27 21:37 This 63 yrs old Male presents to ER via EMS with complaints of AMS. kdr 21:37 The patient presents with confusion, decreased mental status, decreased responsiveness. kdr The patient presents with Altered mental status - oriented to person and place only. Onset: The symptoms/episode began/occurred gradually, 2 hour(s) ago. Possible causes: low blood sugar, sepsis. Associated signs and symptoms: Pertinent positives: confusion. Current symptoms: In the emergency department the patient's symptoms are unchanged from the initial presentation. It is unknown whether or not the patient has had similar symptoms in the past. It is unknown whether or not the patient has recently seen a physician. Historical: - Allergies: 21:55 No Known Allergies; jd3 - Home Meds: 19:17 simvastatin 20 mg Oral tab 1 tab once daily [Active]; Risperdal 2 mg Oral tab 1 tab jd3 once daily [Active]; 21:55 alprazolam 1 mg Oral TbDL 1 tab 3 times per day [Active]; fluoxetine 40 mg Oral cap 1 jd3 cap once daily [Active]; gabapentin 600 mg Oral tab 1 tab 3 times per day [Active]; gemfibrozil 600 mg Oral tab daily [Active]; Lyrica 50 mg Oral daily [Active]; omeprazole 20 mg Oral cpDR 1 cap once daily [Active]; oxycodone-acetaminophen 10-650 mg Oral tab every 4 hours [Active]; sotalol 80 mg Oral tab 1 tab 2 times per day [Active]; tamsulosin 0.4 mg Oral cp24 1 cap once daily [Active]; trazodone 50 mg Oral tab nightly [Active]; - PMHx: 21:55 CVA; Diabetes - NIDDM; Hypertension; jd3 - PSHx: 21:55 back sx; neck sx; hip sx; jd3 - Immunization history:: Adult Immunizations unknown. - Social history:: Smoking status: unknown. - Ebola Screening: : Patient negative for fever greater than or equal to 101.5 degrees Fahrenheit, and additional compatible Ebola Virus Disease symptoms. ROS: 21:37 Constitutional: Unable to obtain since the patient is confused Eyes: Negative for kdr injury, pain, redness, and discharge, Neck: Negative for injury, pain, and swelling, Cardiovascular: Negative for chest pain, palpitations, and edema, Respiratory: Negative for shortness of breath, cough, wheezing, and pleuritic chest pain, Abdomen/GI: Negative for abdominal pain, nausea, vomiting, diarrhea, and constipation, Back: Negative for injury and pain, : Negative for injury, bleeding, discharge, and swelling. Exam: 21:37 Constitutional: This is a well developed, well nourished patient who is awake, alert, kdr and in no acute distress. Head/Face: Normocephalic, atraumatic. Eyes: Pupils equal round and reactive to light, extra-ocular motions intact. Lids and lashes normal. Conjunctiva and sclera are non-icteric and not injected. Cornea within normal limits. Periorbital areas with no swelling, redness, or edema. Neck: Trachea midline, no thyromegaly or masses palpated, and no cervical lymphadenopathy. Supple, full range of motion without nuchal rigidity, or vertebral point tenderness. No Meningismus. Chest/axilla: Normal chest wall appearance and motion. Nontender with no deformity. No lesions are appreciated. 21:37 ENT: Mouth: Lips: dry, cracked. Vital Signs: 19:17 BP 121 / 77; Pulse 85; Resp 16 S; Temp 98.3(O); Pulse Ox 96% on R/A; Weight 97.52 kg jd3 (R); Height 5 ft. 0 in. (152.40 cm) (R); Pain 0/10; 20:30 BP 124 / 74; Pulse 84; Resp 16 S; Pulse Ox 98% on R/A; jd3 21:03 BP 100 / 69; Pulse 72; Resp 17 S; Pulse Ox 97% on R/A; jd3 21:55 BP 95 / 81; Pulse 70; Resp 16 S; Pulse Ox 100% on R/A; jd3 23:00 BP 106 / 75; Pulse 74; Resp 15 S; Pulse Ox 97% on R/A; jd3 05/28 00:08 BP 121 / 68; Pulse 77; Resp 16 S; Pulse Ox 96% on R/A; jd3 05/27 19:17 Body Mass Index 41.99 (97.52 kg, 152.40 cm) jd3 MDM: 05/27 21:37 Data reviewed: vital signs, nurses notes, lab test result(s), EKG, radiologic studies. kdr Counseling: I had a detailed discussion with the patient and/or guardian regarding: the historical points, exam findings, and any diagnostic results supporting the discharge/admit diagnosis, lab results, radiology results. 22:36 Patient medically screened. [facility] 05/27 19:34 Order name: Basic Metabolic Panel [facility] 05/27 19:34 Order name: Blood Culture Adult (2) kdr 05/27 19:34 Order name: CBC with Diff [facility] 05/27 19:34 Order name: Ckmb [facility] 05/27 19:34 Order name: CPK [facility] 05/27 19:34 Order name: Lactate [facility] 05/27 19:34 Order name: LFT's [facility] 05/27 19:34 Order name: Lipase [facility] 05/27 19:34 Order name: Procalcitonin; Complete Time: 22:25 [facility] 05/27 19:34 Order name: Protime (+inr); Complete Time: 22:04 [facility] 05/27 19:34 Order name: Ptt, Activated; Complete Time: 22:04 [facility] 05/27 19:34 Order name: Troponin (emerg Dept Use Only); Complete Time: 22:25 kdr 05/27 19:34 Order name: Urine Microscopic Only [facility] 05/27 19:34 Order name: Basic Metabolic Panel; Complete Time: 22:25 EDSD 05/27 19:34 Order name: Chest Single View XRAY; Complete Time: 21:35 [facility] 05/27 19:34 Order name: CT Head Brain wo Cont; Complete Time: 21:35 kdr 05/27 19:35 Order name: Blood Culture EDMS 05/27 19:35 Order name: CBC with Automated Diff; Complete Time: 22:04 EDSD 05/27 19:35 Order name: CKMB Creatine Kinase MB; Complete Time: 22:25 EDMS 05/27 19:35 Order name: Creatine Phosphokinase; Complete Time: 22:25 EDMS 05/27 19:35 Order name: Lactate; Complete Time: 22:25 EDSD 05/27 19:35 Order name: Liver (Hepatic) Function; Complete Time: 22:25 EDSD 05/27 19:35 Order name: Lipase; Complete Time: 22:25 EDSD 05/27 19:39 Order name: EKG; Complete Time: 19:39 jd3 05/27 20:31 Order name: Glucose, Ancillary Testing; Complete Time: 21:35 EDSD 05/27 22:46 Order name: CBC with Automated Diff [facility] 05/27 22:46 Order name: CBC with Automated Diff [facility] 05/27 22:46 Order name: Comprehensive Metabolic Panel [facility] 05/27 22:46 Order name: Comprehensive Metabolic Panel [facility] 05/27 22:54 Order name: Urine Dipstick--Ancillary (enter results) ms 05/27 19:34 Order name: Accucheck; Complete Time: 22:11 [facility] 05/27 19:34 Order name: Cardiac monitoring; Complete Time: 19:38 [facility] 05/27 19:34 Order name: EKG - Nurse/Tech; Complete Time: 19:38 [facility] 05/27 19:34 Order name: IV Saline Lock - Large Bore; Complete Time: 20:19 [facility] 05/27 19:34 Order name: Labs collected and sent; Complete Time: 20:19 kdr 05/27 19:34 Order name: O2 Per Protocol; Complete Time: 19:38 kdr 05/27 19:34 Order name: O2 Sat Monitoring; Complete Time: 19:38 [facility] 05/27 19:34 Order name: Urine Dipstick-Ancillary (obtain specimen); Complete Time: 22:54 [facility] 05/27 22:46 Order name: CONS Pharmacy Consult [facility] 05/27 22:46 Order name: NPO [facility] 05/27 22:54 Order name: Straight Cath; Complete Time: 22:54 jd3 Administered Medications: No medications were administered Disposition: 05/27/18 22:36 Hospitalization ordered by Reshma Byrd for Inpatient Admission. Preliminary diagnosis is Altered mental status, unspecified. - Bed requested for Telemetry/MedSurg (Inpatient). - Status is Inpatient Admission. jd3 - Condition is Fair. - Problem is an acute exacerbation. - Symptoms are unchanged. UTI on Admission? No Signatures: Dispatcher [employer] [facility] Anali Weathers RN RN Dannie Rudolph MD MD [facility] Rory Rust RN RN jd3 Corrections: (The following items were deleted from the chart) 21:55 19:25 PMHx: Dementia; jd3 jd3 22:47 22:36 Hospitalization Ordered by Reshma Byrd MD for Inpatient Admission. Preliminary mw diagnosis is Altered mental status, unspecified. Bed requested for Telemetry/MedSurg (Inpatient). Status is Inpatient Admission. Condition is Fair. Problem is an acute exacerbation. Symptoms are unchanged. UTI on Admission? No. kdr 05/28 00:36 05/27 22:47 05/27/2018 22:36 Hospitalization Ordered by Reshma Byrd MD for Inpatient jd3 Admission. Preliminary diagnosis is Altered mental status, unspecified. Bed requested for Telemetry/MedSurg (Inpatient). Status is Inpatient Admission. Condition is Fair. Problem is an acute exacerbation. Symptoms are unchanged. UTI on Admission? No. mw
[2018-05-27] MEDS ORDERED: MORPHINE 2 MG/ML SYR IV PRN (22:44)
[2018-05-27] MEDS ORDERED: ACETAMINOPHEN 500 MG TAB PO PRN (22:44)
[2018-05-27] MEDS ORDERED: ONDANSETRON 4 MG/2 ML VIAL IV PRN (22:44)
[2018-05-27 23:08] LABS: Urine Blood NEGATIVE (NEG); Urine Glucose NEGATIVE (NEG); Urine Protein NEGATIVE (NEG); Urine Specific Gravity 1.025 (1.005-1.030)
[2018-05-27 23:16] LABS: Urine Bacteria <20 /HPF (NONE SEEN); Urine Culture Reflex Order NOT NEEDED; Urine Mucus MOD /HPF (NONE SEEN); Urine RBC NONE SEEN /HPF (NONE SEEN)
[2018-05-28] MEDS: NA CHLORIDE 0.9% 1,000 ML IV SCH ×4 (01:09→23:17)
[2018-05-28 01:54] VITALS: BMI 24.9
[2018-05-28] MEDS: SOTALOL HCL 80 MG TAB PO SCH ×3 (06:19→21:27)
[2018-05-28 07:02] LABS: Albumin 3.3 g/dL (3.4-5.0); Bilirubin Total 0.3 mg/dL (0.2-1.0); Protein, Total 7.7 g/dL (6.4-8.2)
[2018-05-28 07:08] LABS: Absolute Monocytes 0.5 K/uL (0.1-1.3); Absolute Neutrophil 2.5 K/uL (1.8-8.0); Basophils % 0.5 % (0-1.3); Eosinophils % 2.4 % (0-4.4); Hematocrit 34.7 % (39.6-49.0); Lymphocytes % 48.5 % (15.3-44.8); MCV 94.9 fL (80-100); MPV 9.1 fL (7.6-11.3); Monocytes % 7.8 % (3.3-12.3); RBC Red Blood Cell Count 3.65 M/uL (4.33-5.43)
[2018-05-28] MEDS ORDERED: INFLUENZA VACCINE (for 3y+) 0.5 ML DOSE IMVAC ONE (08:00)
[2018-05-28] MEDS: cloNIDine HCl 0.1 MG TAB PO SCH ×2 (09:00→21:00)
[2018-05-28] MEDS ORDERED: GLUCAGON 1 MG/VIAL IM PRN (12:06)
[2018-05-28] MEDS ORDERED: D50W 25 GM/50 ML SYRINGE IV PRN (12:06)
--- NOTE | 2018-05-28 12:27 | EKG ---
Test Date: 2018-05-27 Test Time: 19:28:26 [employer]: JARED MEASUREMENT RESULTS: Intervals: Rate: 75 WV: 164 QRSD: 84 QT: 394 QTc: 439 [place]: P: 37 WV: 164 QRS: 42 T: 14 INTERPRETIVE STATEMENTS: Normal sinus rhythm Possible Inferior infarct, age undetermined Possible Anterior infarct, age undetermined Abnormal ECG Compared to ECG 02/18/2018 11:58:58 Myocardial infarct finding now present T-wave abnormality no longer present Possible ischemia no longer present Electronically Signed On 05-28-18 12:25:41 CDT by Fransisco Edouard
--- NOTE | 2018-05-28 14:42 | PN ---
History: Currently the patient lying in bed. He looks comfortable. He is alert, but not oriented. He has no chest pain. No abdominal pain. No fever. No chills. Review of Systems: Otherwise unobtainable. Physical Examination: Vital Signs: Currently, blood pressure 140/67, respiratory rate 16, pulse 66, temperature 97.9. The patient is saturating 94 on room air. General: He is fully alert, oriented x1. Does not look in any distress. HEENT: Atraumatic, normocephalic. PERRLA. Oral mucosa is moist. Neck: Supple. No JVD. No carotid bruits. Chest: Clear to auscultation. Good air entry. Heart: Regular rate and rhythm. S1, S2 normal. No gallop or murmur. Abdomen: Soft, nontender. No masses. No hepatosplenomegaly. Positive bowel sounds. Extremities: No clubbing, no cyanosis, no edema. No calf tenderness. Neurologic: Grossly intact. Cranial nerve exam 2 through 12 intact. Normal sensation. Normal reflexes. Normal muscle strength. Laboratory Data: This morning, CMP within normal except for chloride 110, BUN of 24, glucose 157. His CBC within normal except for anemia at 12. CT scan was negative for any acute changes. Assessment And Plan: This is a 63-year-old gentleman with history of multiple medical problems, admitted with mental status change and confusion. 1. Mental status change, acute, improved. The patient is totally alert, but he still confused now, most likely polypharmacy based on multiple drug use. We will keep his medicine that can cause confusion on hold, like Lyrica, oxycodone , trazodone, Risperdal, and Xanax for now. GCS score 10 will proceed with Brain MRI, work up for CVA ,check lipid panel and start on daily ASA , 2. Diabetes mellitus. I will resume his home medication when brings his medication list. 3. Hypertension. He is on sotalol. We will continue that. 4. History of Parkinson disease. We will resume his levodopa carbidopa orally 3 times a day. 5. Benign prostatic hyperplasia on Flomax. We will resume that. 6. If Mental status not any better in AM , will consider neurologic consult, if mental status does not improve of sedating medications. 7. Deep vein thrombosis prophylaxis with Lovenox. 8. PT/OT evaluation will be consulted if the patient's mental status improves in a.m. 9. Swallow eval at bed side MT/OSEAS Voice ID: [id number] Report ID: [id number] MTDD
[2018-05-28] MEDS ORDERED: ASPIRIN EC 81 MG TAB PO SCH (16:00)
[2018-05-28] MEDS: ENOXAPARIN 40 MG/0.4 ML SQ SCH (16:21)
--- NOTE | 2018-05-28 18:20 | P.HP ---
Certification for Inpatient Patient admitted to: Inpatient With expected LOS: >2 Midnights Patient will require the following post-hospital care: None Practitioner: I am a practitioner with admitting privileges, knowledge of patient current condition, hospital course, and medical plan of care. Services: Services provided to patient in accordance with Admission requirements found in Title 42 Section 412.3 of the Code of Federal Regulations Patient History Date of Service: 05/27/18 Reason for admission: Altered mental status History of Present Illness: The patient is a 63-year-old gentleman who has a history of Parkinson's disease, chronic pain, hypertension, and diabetes. Patient has had multiple prior admissions for similar complaints. He came into the hospital lethargic and difficult to arouse. Patient was diagnosed with altered mental status. patient has had multiple prior admissions as mentioned before and we last treated him with a similar complaint about a year ago. Once he was hydrated his mentation improved and he was stable for discharge home. At this time will go ahead and check a urine drug screen. He is more awake and following commands. As long as he is able participate with therapy and he is tolerating his diet hopefully he will be able to go home in the morning. Continue with medications as mentioned before. CT of the head was negative. Allergies No Known Allergies Allergy (Uncoded 05/28/18 01:22) Unknown - Past Medical/Surgical History Has patient received pneumonia vaccine in the past: No Diabetic: Yes -: NIDDM -: GERD -: BPH -: Depression -: HTN -: Chronic Pain -: Herpes zoster January 21, 2014 -: asbestos -: left kidney cancer 18 years ago -: femur sx X3 -: neck surg -: [place] hip replacement -: right knee replacement -: left kidney removal -: back surgery - Family History Mother Medical History: Diabetes Brother Medical History: Diabetes - Social History Smoking Status: Former smoker Alcohol use: No CD- Drugs: No Caffeine use: No Place of Residence: Home Review of Systems 10-point ROS is otherwise unremarkable Physical Examination - Vital Signs Temperature: 98.2 F Blood Pressure: 101/58 Pulse: 62 Respirations: 16 Pulse Ox (%): 94 - Physical Exam General: Alert, In no apparent distress, Oriented x2 HEENT: Atraumatic, PERRLA, Mucous membr. moist/pink, EOMI, Sclerae nonicteric Neck: Supple, 2+ carotid pulse no bruit, No LAD, Without JVD or thyroid abnormality Respiratory: Clear to auscultation bilaterally, Normal air movement Cardiovascular: Regular rate/rhythm, Normal S1 S2 Gastrointestinal: Normal bowel sounds, Soft and benign, Non-distended, No tenderness Musculoskeletal: No clubbing, No swelling, No tenderness Integumentary: No rashes Neurological: Normal gait, Normal speech, Normal tone, Normal affect, Abnormal strength Lymphatics: No axilla or inguinal lymphadenopathy - Studies Laboratory Data (last 24 hrs) 05/27/18 21:20: PT 13.1 H, INR 1.11, APTT 37.4 H 05/27/18 21:20: WBC 6.4, Hgb 13.2 L, Hct 38.9 L, Plt Count 177 05/27/18 21:20: Sodium 142, Potassium 4.8, BUN 21 H, Creatinine 1.10, Glucose 138 H, Total Bilirubin 0.4, AST 24, ALT 28, Alkaline Phosphatase 97, Lipase 135 Assessment & Plan - Problems (Diagnosis) (1) Altered mental status Current Visit: No Status: Acute (2) Dehydration Onset Date: 02/21/15 Current Visit: No Status: Acute (3) Diabetes mellitus type II, uncontrolled Onset Date: 06/04/16 Current Visit: No Status: Acute (4) GI bleed Onset Date: 02/21/15 Current Visit: No Status: Acute (5) Parkinson disease Onset Date: 06/04/16 Current Visit: No Status: Acute (6) Weakness Onset Date: 06/04/16 Current Visit: No Status: Acute - Plan Plan: -IV hydration -rule out infection and check UDS -check renal function and electrolytes -MRI of the brain if symptoms do not improve -bed check in place -physical therapy evaluation once mentation is improved -discuss code status with family - Advance Directives Does patient have a Living Will: No Does patient have a Durable POA for Healthcare: No - Code Status/Comfort Care Code Status Assessed: Yes Code Status: Full Code Critical Care: No Time Spent Managing PTS Care (In Minutes): 50
[2018-05-28] MEDS ORDERED: TAMSULOSIN 0.4 MG SR CAP PO SCH (21:00)
[2018-05-29] MEDS ORDERED: OXYCODONE HCL PO PRN (02:23)
[2018-05-29] MEDS ORDERED: TRAZODONE 50 MG TABLET PO PRN (02:23)
[2018-05-29] MEDS ORDERED: DOCUSATE NA 100 MG CAP PO PRN (02:23)
[2018-05-29] MEDS ORDERED: ACETAMINOPHEN PO PRN (02:23)
[2018-05-29] MEDS: SOTALOL HCL 80 MG TAB PO SCH ×3 (06:00→21:29)
[2018-05-29] MEDS ORDERED: OXYCODONE HCL 5 MG TAB PO PRN (06:01)
[2018-05-29] MEDS ORDERED: Oxycodone HCl/Acetaminophen 1 TAB TAB PO PRN (06:04)
[2018-05-29] MEDS: NA CHLORIDE 0.9% 1,000 ML IV SCH ×3 (06:38→21:28)
[2018-05-29] MEDS: INDOMETHACIN 25 MG CAP PO SCH ×2 (08:00→17:05)
[2018-05-29] MEDS: hydrOXYzine HCl 25 MG TAB PO SCH ×3 (09:00→21:36)
[2018-05-29] MEDS: PREGABALIN 50 MG CAP PO SCH ×3 (09:00→19:49)
[2018-05-29] MEDS: GEMFIBROZIL 600 MG TAB PO SCH (09:00)
[2018-05-29] MEDS: CARBIDOPA PO SCH ×3 (09:00→21:00)
[2018-05-29] MEDS: ARIPiprazole 5 MG TAB PO SCH (09:00)
[2018-05-29] MEDS: TAMSULOSIN 0.4 MG SR CAP PO SCH (09:00)
[2018-05-29] MEDS: LEVODOPA PO SCH ×3 (09:00→21:00)
[2018-05-29] MEDS: FLUOXETINE 20 MG CAP PO SCH (09:00)
[2018-05-29] MEDS: ALPRAZOLAM 1 MG TABLET PO SCH ×3 (09:00→19:49)
[2018-05-29] MEDS: ASPIRIN EC 81 MG TAB PO SCH (09:00)
[2018-05-29] MEDS: cloNIDine HCl 0.1 MG TAB PO SCH ×2 (09:00→21:00)
[2018-05-29] MEDS: GABAPENTIN 300 MG CAP PO SCH ×3 (09:00→21:30)
[2018-05-29 10:17] LABS: Barbiturates NEGATIVE (NEGATIVE); Benzodiazepines NEGATIVE (NEGATIVE); Cocaine NEGATIVE (NEGATIVE); METHAMPHETAM NEGATIVE (NEGATIVE); Methadone NEGATIVE (NEGATIVE); Opiates NEGATIVE (NEGATIVE); Phencyclidine NEGATIVE (NEGATIVE); THC Cannibis NEGATIVE (NEGATIVE)
[2018-05-29] MEDS ORDERED: D50W 25 GM/50 ML SYRINGE IV PRN (10:43)
[2018-05-29] MEDS ORDERED: GLUCAGON 1 MG/VIAL IM PRN (10:43)
[2018-05-29] MEDS: INSULIN -REGULAR HUMAN 50 UNIT/0.5 ML ML SQ SCH ×3 (11:30→21:00)
[2018-05-29 12:23] LABS: Absolute Lymphocytes (CBC) 1.9 K/uL (0.7-4.9); Absolute Monocytes 0.4 K/uL (0.1-1.3); Basophils % 0.5 % (0-1.3); Eosinophils % 2.3 % (0-4.4); Hematocrit 33.4 % (39.6-49.0); Lymphocytes % 34.4 % (15.3-44.8); MCH 32.3 pg (27.0-35.0); Monocytes % 8.2 % (3.3-12.3); RBC Red Blood Cell Count 3.55 M/uL (4.33-5.43)
[2018-05-29 12:40] LABS: Albumin 3.1 g/dL (3.4-5.0); Bilirubin Total 0.4 mg/dL (0.2-1.0); Potassium 3.8 mmol/L (3.5-5.1); Protein, Total 7.2 g/dL (6.4-8.2)
--- NOTE | 2018-05-29 16:25 | PN ---
Subjective: Currently, the patient lying in bed. He looks comfortable. at the bedside. He co ntinued to be slow, but he is fully alert. He is able to answer some questions. feels he is ba ck to his baseline. Objective: Vital Signs: Currently; blood pressure is 132/68, respiratory rate 18, pulse 61, tempera ture 98. General: He is alert and oriented x2. Does not look in any distress. HEENT: Atraumatic, normocephalic. PERRLA. Oral mucosa is moist. Neck: Supple. No JVD. No bruits. Chest: Clear to auscultation with good air entry. Heart: Regular rate and rhythm. Normal S1, S2 normal. No gallop. Abdomen: Soft. No masses. No hepatosplenomegaly. Positive bowel sounds. Extremities: No clubbing, cyanosis, or edema. No calf tenderness. Neurologic: Generalized weakness all over extremities. Muscle strength 4/5. There are no good refl exes most likely from his Parkinson. Laboratory Data: Labs today all pending except for glucose in the range of 143 to 200. Lipid panel showed triglyceride 250, ADL of 43, HDL of 31. Assessment And Plan: 1.Mental status changes, improved since admission. Workup in progress. CAT scan was negative, but MRI is still pending. Most likely secondary to polypharmacy with multiple sedative drugs and drug fo r pain control. GCS yesterday was 10, so MRI was ordered. Repeat panel showed elevated triglyceride with low LDL. The patient is on aspirin. 2.Diabetes mellitus. Not well controlled. Continue insulin sliding scale. Check hemoglobin A1c to see if patient will need to be on medication for diabetes as outpatient. 3.Hypertension, on sotalol, well controlled. 4.Neuropathy history, on Lyrica, continue. 5.Benign prostatic hyperplasia history, on Flomax. 6.Elevated triglyceride. The patient is on gemfibrozil 600 mg daily. 7.Deep veinous thrombosis prophylaxis, on Lovenox. 8.PT/OT eval for discharge planning. Hopefully if MRI is negative, the patient can be discharged sa [facility]. 9.Parkinson disease. Continue Rytary ER 1 tablet 3 times a day as before. 10.Hypertension, well controlled, on clonidine 0.1 mg twice a day. MT/RAQUELL Voice ID: [id number] Report ID: [id number]
[2018-05-29] MEDS: ENOXAPARIN 40 MG/0.4 ML SQ SCH (17:04)
[2018-05-29] MEDS ORDERED: RISPERIDONE 1 MG TABLET PO SCH (21:00)
[2018-05-29] MEDS ORDERED: ATORVASTATIN 10 MG TAB PO SCH (21:00)
[2018-05-29] MEDS: BENZTROPINE 1 MG TAB PO SCH (21:28)
[2018-05-30] MEDS: NA CHLORIDE 0.9% 1,000 ML IV SCH ×4 (01:00→21:00)
[2018-05-30 06:26] LABS: Absolute Lymphocytes (CBC) 2.1 K/uL (0.7-4.9); Absolute Monocytes 0.5 K/uL (0.1-1.3); Absolute Neutrophil 2.5 K/uL (1.8-8.0); Basophils % 0.3 % (0-1.3); Eosinophils % 2.6 % (0-4.4); Lymphocytes % 39.6 % (15.3-44.8); MCH 32.8 pg (27.0-35.0); MCV 94.7 fL (80-100); MPV 8.6 fL (7.6-11.3); Monocytes % 9.6 % (3.3-12.3); RBC Red Blood Cell Count 3.38 M/uL (4.33-5.43)
[2018-05-30 06:47] LABS: ALT/SGPT 24 U/L (12-78); AST/SGOT 29 U/L (15-37); Albumin 3.1 g/dL (3.4-5.0); Alkaline Phosphatase 74 U/L (45-117); BUN Blood Urea Nitrogen 10 mg/dL (7-18); Bicarbonate 25 mmol/L (21-32); Bilirubin Total 0.4 mg/dL (0.2-1.0); Glucose Level 127 mg/dL (74-106); Potassium 3.7 mmol/L (3.5-5.1); Protein, Total 6.9 g/dL (6.4-8.2); Sodium Level 143 mmol/L (136-145)
[2018-05-30] MEDS: INSULIN -REGULAR HUMAN 50 UNIT/0.5 ML ML SQ SCH ×4 (07:30→21:00)
[2018-05-30] MEDS: CARBIDOPA PO SCH ×3 (09:00→21:00)
[2018-05-30] MEDS: PREGABALIN 50 MG CAP PO SCH (09:00)
[2018-05-30] MEDS: LEVODOPA PO SCH ×3 (09:00→21:00)
[2018-05-30] MEDS: ALPRAZOLAM 1 MG TABLET PO SCH (09:00)
--- NOTE | 2018-05-30 10:45 | RAD REPORT ---
EXAM DESCRIPTION: MRI - Brain W/Wo Cont - 05/30/2018 10:29 am CLINICAL HISTORY: TIA/CVA COMPARISON: MRA Head Wo Cont dated 05/30/2018; MRA Neck W/Wo Cont dated 05/30/2018; Head Brain Wo Co nt dated 05/27/2018; Head Brain Wo Cont dated 02/18/2018; Brain Wo Cont dated 01/30/2016; Head Brain Wo Cont dated 11/20/2015 TECHNIQUE: Multi-sequence, multiplanar MR imaging of the brain was performed with contrast. FINDINGS: No intracranial hemorrhage, hydrocephalus, extra-axial fluid collection or acute infarctio n.Moderate generalized brain atrophy is present with moderate periventricular and deep white matter c hronic microvascular ischemic changes. No edema or shift of midline structures. No intracranial mass. DWI is negative for acute CVA. The midline structures are normally formed. Mastoid air cells and paranasal sinuses are clear. Post-contrast images show no abnormal enhancement to suggest tumor or infection. IMPRESSION: Negative for acute CVA or other acute intracranial abnormality. No pathologic post-contrast enhancement suspected.
--- NOTE | 2018-05-30 10:47 | RAD REPORT ---
EXAM DESCRIPTION: MRI - MRA Head Wo Cont - 05/30/2018 10:25 am CLINICAL HISTORY: TIA/CVA CVA COMPARISON: Head Brain Wo Cont dated 05/27/2018 FINDINGS: 3D noncontrast [id number] MR angiography of the [place] was performed. No aneurysm, flow-limiting stenosis or vascular malformation is seen. Forward flow seen in codominant vertebral arteries. The visualized dural venous sinuses appear patent. IMPRESSION: No significant flow abnormality of the [place] is identified.
[2018-05-30] MEDS: ARIPiprazole 5 MG TAB PO SCH (10:52)
[2018-05-30] MEDS: GABAPENTIN 300 MG CAP PO SCH ×3 (10:52→21:23)
[2018-05-30] MEDS: INDOMETHACIN 25 MG CAP PO SCH ×2 (10:53→17:09)
[2018-05-30] MEDS: SOTALOL HCL 80 MG TAB PO SCH ×2 (10:53→21:00)
[2018-05-30] MEDS: TAMSULOSIN 0.4 MG SR CAP PO SCH (10:53)
[2018-05-30] MEDS: cloNIDine HCl 0.1 MG TAB PO SCH ×2 (10:53→21:23)
[2018-05-30] MEDS: hydrOXYzine HCl 25 MG TAB PO SCH ×3 (10:53→21:23)
[2018-05-30] MEDS: GEMFIBROZIL 600 MG TAB PO SCH (10:53)
[2018-05-30] MEDS: FLUOXETINE 20 MG CAP PO SCH (10:53)
[2018-05-30] MEDS: ASPIRIN EC 81 MG TAB PO SCH (10:54)
--- NOTE | 2018-05-30 11:07 | RAD REPORT ---
EXAM DESCRIPTION: MRI - MRA Neck W/Wo Cont - 05/30/2018 10:27 am CLINICAL HISTORY: R/O STROKE CVA COMPARISON: No comparisons FINDINGS: Contrast enhance 2D [id number] MR angiography of the neck vessels was performed. Both common carotid arteries are normal in size and contrast enhancement. The right the internal [place] tid artery shows no flow abnormality or evidence of stenosis. There is evidence of a significant stenosis involving the proximal left internal carotid artery bulb estimated at 95-99% based on NASCET criteria. Left external carotid artery branches appear mildly enl arged. Forward flow is seen in both vertebral arteries. IMPRESSION: High-grade stenosis estimated at 95-99% based on NASCET criteria suspected involving the left carotid bulb.
--- NOTE | 2018-05-30 12:12 | P.PN ---
Subjective Date of Service: 05/30/18 Chief Complaint: Altered mental status Patient seen and examined at bedside. No family at bedside. Case discussed with nursing staff. Patient looks comfortable, lying in bed. Alert and oriented x3. No concerns or complaints this morning. Denies any chest pain, shortness of breath, abdominal pain, nausea or vomiting, vision changes, speech changes, headache or episodes of lightheadedness/syncope since being admitted. Review of Systems As noted above Physical Examination - Vital Signs Temperature: 97.8 F Blood Pressure: 139/65 Pulse: 63 Respirations: 16 Pulse Ox (%): 99 - Physical Exam General: Alert, In no apparent distress HEENT: Atraumatic, PERRLA, EOMI Neck: Supple, JVD not distended Respiratory: Clear to auscultation bilaterally, Normal air movement Cardiovascular: Regular rate/rhythm, Normal S1 S2 Gastrointestinal: Normal bowel sounds, No tenderness Musculoskeletal: No tenderness Integumentary: No rashes Neurological: Normal speech, Normal tone, Normal affect - Studies Medications List Reviewed: Yes Assessment And Plan - Current Problems (Diagnosis) (1) Hypertriglyceridemia Current Visit: Yes Status: Acute (2) Carotid stenosis, left Current Visit: Yes Status: Acute (3) Altered mental status Onset Date: 05/30/18 Current Visit: Yes Status: Acute (4) Diabetes mellitus type II, uncontrolled Onset Date: 06/04/16 Current Visit: No Status: Acute (5) Parkinson disease Onset Date: 06/04/16 Current Visit: No Status: Acute - Plan This is a 63-year-old male with history of Parkinson's, hypertension and diabetes admitted for altered mental status, now back to baseline. Patient has multiple admissions due to similar complaints recently. - mental status changes, resolved and back to baseline. CT scan was negative. MRI of the brain negative. MRA of the neck with 95-99% stenosis in left carotid bulb area. This could be the cause of patient's multiple admissions for mental status changes. Cardiology consulted for further evaluation. Continue medical management with aspirin. Increase statin to high intensity ( atorvastatin 40 daily). - diabetes, not well controlled. Continue sliding scale insulin. A1c of 8, elevated. Last inpatient was on any diabetes medication prior to admission. Will need to be discharged on oral diabetes medications, with follow up with primary care physician for further management. - Hypertension: On sotalol and clonidine 0.1 mg twice a day. Well controlled. monitor blood pressure, especially secondary to carotid stenosis. - history of neuropathy: Continue Lyrica - history of BPH: Continue Flomax - elevated triglycerides: Continue home gemfibrozil, increase Atorvastatin to 40 mg daily - history of Parkinson disease: Continue home medications of Rytary ER 1 tablet 3 times a day
[2018-05-30] MEDS: ENOXAPARIN 40 MG/0.4 ML SQ SCH (17:09)
[2018-05-30] MEDS ORDERED: ATORVASTATIN 80 MG TAB PO SCH (21:00)
[2018-05-30] MEDS: BENZTROPINE 1 MG TAB PO SCH (21:22)
--- NOTE | 2018-05-31 02:27 | CON ---
Date of Consultation: 05/30/2018 Reason For Consultation: Altered mental status and severe carotid stenosis. History Of Present Illness: Mr. Lopez is 63 years old and has a history of CVA, diabetes, and hyper tension. Came in with altered mental status, was found to have a fairly unremarkable workup so far i ncluding hemoglobin of 11.1. He, however, had a neck MRA showing 95% to 99% stenosis in the left car otid bulb. I have discussed the case with Dr. Medley. I saw the patient, Mr. Lopez. He was letharg ic. Mental status was not very clear. His family had left the room, but apparently they had express ed interest in going home and go to [place] for further evaluation to be done on his carotids. The p atient denied any cardiac symptoms. Allergies: NONE. Review of Systems: Negative. Social History: Negative. Family History: Noncontributory. Medications: List is extensive and include Lopid, Xanax, aripiprazole, Indocin, Tylenol No. 3, aspir in, Cogentin, Prozac, gabapentin, Lyrica, Zocor, and sotalol. Physical Examination: Vital Signs: Stable. He was in sinus rhythm. HEENT: Negative. Neck: Supple without any lymphadenopathy or JVD. He has a left carotid bruit. Chest: Clear. Cardiac: Revealed a regular rhythm and rate with an S4 gallop. No murmurs or rubs. Abdomen: Benign. Extremities: Revealed no clubbing, cyanosis, or edema. Diagnostic Data: As stated earlier. Impression And Plan: 1.Severe carotid stenosis on the left bulb that needs to be surgically repaired. He may be a candid ate for a stent as well, but the family wants to have him evaluated in [place]. He is to have a card iac workup before his carotid surgery. No cardiac symptoms reported. 2.History of cerebrovascular accident. 3.Diabetes. 4.Hypertension. 5.Dyslipidemia. 6.Atrial fibrillation, in sinus rhythm, on sotalol. I agree with his present regimen. If the famil y decide to keep him here, we will investigate his heart before any further workup. CHAO/OSEAS Voice ID: [id number] Report ID: [id number]
[2018-05-31] MEDS: NA CHLORIDE 0.9% 1,000 ML IV SCH ×2 (03:38→04:42)
[2018-05-31] MEDS: INSULIN -REGULAR HUMAN 50 UNIT/0.5 ML ML SQ SCH ×2 (07:30→12:48)
[2018-05-31] MEDS: LEVODOPA PO SCH (09:00)
[2018-05-31] MEDS: CARBIDOPA PO SCH (09:00)
[2018-05-31] MEDS: GABAPENTIN 300 MG CAP PO SCH ×2 (09:30→13:07)
[2018-05-31] MEDS: ARIPiprazole 5 MG TAB PO SCH (09:30)
[2018-05-31] MEDS: GEMFIBROZIL 600 MG TAB PO SCH (09:31)
[2018-05-31] MEDS: hydrOXYzine HCl 25 MG TAB PO SCH ×2 (09:31→13:07)
[2018-05-31] MEDS: ASPIRIN EC 81 MG TAB PO SCH (09:31)
[2018-05-31] MEDS: FLUOXETINE 20 MG CAP PO SCH (09:31)
[2018-05-31] MEDS: INDOMETHACIN 25 MG CAP PO SCH (09:32)
[2018-05-31] MEDS: cloNIDine HCl 0.1 MG TAB PO SCH (09:32)
[2018-05-31] MEDS: TAMSULOSIN 0.4 MG SR CAP PO SCH (09:32)
[2018-05-31] MEDS: SOTALOL HCL 80 MG TAB PO SCH (09:33)
--- NOTE | 2018-05-31 12:47 | P.DS ---
Admission Date: 05/27/18 Discharge Date: 05/31/18 Disposition: ROUTINE DISCHARGE Discharge Condition: GOOD Reason for Admission: Altered mental status Consultations: Cardiology - Problems (1) Hypertriglyceridemia Current Visit: Yes Status: Acute (2) Carotid stenosis, left Current Visit: Yes Status: Acute (3) Altered mental status Onset Date: 05/30/18 Current Visit: Yes Status: Acute (4) Diabetes mellitus type II, uncontrolled Onset Date: 06/04/16 Current Visit: No Status: Acute (5) Parkinson disease Onset Date: 06/04/16 Current Visit: No Status: Acute Brief History of Present Illness: The patient is a 63-year-old gentleman who has a history of Parkinson's disease , chronic pain, hypertension, and diabetes. Patient has had multiple prior admissions for similar complaints. He came into the hospital lethargic and difficult to arouse. Patient was diagnosed with altered mental status. patient has had multiple prior admissions as mentioned before and we last treated him with a similar complaint about a year ago. Once he was hydrated his mentation improved and he was stable for discharge home. At this time will go ahead and check a urine drug screen. He is more awake and following commands. As long as he is able participate with therapy and he is tolerating his diet hopefully he will be able to go home in the morning. Continue with medications as mentioned before. CT of the head was negative. Hospital Course: Patient was admitted for mental status changes. CT scan was negative as well as the MRI of the brain. The MRA of the neck degenerative dementia percent stenosis of the left carotid bulb area. Patient's statin was continued along with his gemfibrozil and aspirin. Cardiology was consulted. The family decided that they wanted care in [place]. As patient was hemodynamically stable , he was discharged with instructions to the/treated at a hospital in [place], per family's wishes. His diabetes was not well controlled. He did receive sliding scale insulin though his A1c was elevated at 8. Per patient, he was not on any diabetes medications prior to admission. He was discharged home on metformin 1000 mg daily with instructions to follow up outpatient for further diabetes management. He was also instructed not to start taking the metformin until after evaluation at [facility] for possible surgical intervention for carotid stenosis. His hypertension is well controlled throughout the stay on his home sotalol 1 clonidine. No medication changes made to blood pressure medications on discharge. His Lyrica was continued for his history of neuropathy, which remained stable. His Flomax was continued for his history of BPH which also remained stable. His gemfibrozil was continued along with his statin. Did not increase statin to high-intensity on discharge, as patient already on gemfibrozil. For his history of Parkinson disease. He continues home medications. Vital Signs/Physical Exam: Temp Pulse Resp BP Pulse Ox 97.4 F 52 17 153/77 H 98 05/31/18 08:00 05/31/18 09:32 05/31/18 08:00 05/31/18 09:32 05/31/18 08:00 General: Alert, In no apparent distress HEENT: Atraumatic, PERRLA, EOMI Neck: Supple, JVD not distended Respiratory: Clear to auscultation bilaterally, Normal air movement Cardiovascular: Regular rate/rhythm, Normal S1 S2 Gastrointestinal: Normal bowel sounds, No tenderness Musculoskeletal: No tenderness Integumentary: No rashes Neurological: Normal speech, Normal tone, Normal affect Lymphatics: No axilla or inguinal lymphadenopathy Laboratory Data at Discharge: WBC 5.3 K/uL (4.3-10.9) 05/30/18 05:47 Hgb 11.1 g/dL (13.6-17.9) L 05/30/18 05:47 Hct 32.0 % (39.6-49.0) L 05/30/18 05:47 Plt Count 125 K/uL (152-406) L 05/30/18 05:47 PT 13.1 SECONDS (9.5-12.5) H 05/27/18 21:20 INR 1.11 05/27/18 21:20 APTT 37.4 SECONDS (24.3-36.9) H 05/27/18 21:20 Sodium 143 mmol/L (136-145) 05/30/18 05:47 Potassium 3.7 mmol/L (3.5-5.1) 05/30/18 05:47 BUN 10 mg/dL (7-18) 05/30/18 05:47 Creatinine 0.80 mg/dL (0.55-1.3) 05/30/18 05:47 Glucose 127 mg/dL (74-106) H 05/30/18 05:47 Total Bilirubin 0.4 mg/dL (0.2-1.0) 05/30/18 05:47 AST 29 U/L (15-37) 05/30/18 05:47 ALT 24 U/L (12-78) 05/30/18 05:47 Alkaline Phosphatase 74 U/L (45-117) 05/30/18 05:47 Triglycerides 250 mg/dL (<150) H 05/28/18 15:36 Cholesterol 124 mg/dL (<200) 05/28/18 15:36 HDL Cholesterol 31 mg/dL (40-60) L 05/28/18 15:36 Cholesterol/HDL Ratio 4.00 05/28/18 15:36 Lipase 135 U/L (73-393) 05/27/18 21:20 Home Medications: ALPRAZolam [Alprazolam] 1 mg PO TID 05/28/18 ARIPiprazole [Aripiprazole] 10 mg PO DAILY 05/28/18 Aspirin [Aspirin EC 81 MG] 1 tab PO DAILY 05/28/18 Benztropine Mesylate 2 mg PO BEDTIME 05/28/18 Docusate Sodium [Stool Softener] 1 tab PO TIDP PRN 05/28/18 Fluoxetine HCl [Prozac] 1 tab PO DAILY 05/28/18 Gabapentin 1 tab PO TID 05/28/18 Gemfibrozil [Lopid*] 1 tab PO DAILY 05/28/18 Indomethacin 1 tab PO BID 05/28/18 Oxycodone HCl/Acetaminophen [Percocet 10-325 mg Tablet] 1 tab PO Q4HP PRN Pregabalin [Lyrica*] 50 mg PO TID 05/28/18 Simvastatin 20 mg PO BEDTIME 05/28/18 Sotalol HCl [Betapace*] 1 tab PO Q12HR 05/28/18 Tamsulosin HCl 1 tab PO DAILY 05/28/18 Trazodone [Desyrel*] 1 tab PO BEDTIME PRN PRN 05/28/18 hydrOXYzine pamoate [Hydroxyzine Pamoate] 1 tab PO TID 05/28/18 risperiDONE [Risperidone] 2 mg PO BEDTIME 05/28/18 Metformin ER [Glucophage ER*] 1,000 mg PO DAILY #30 tab.sa 05/31/18 New Medications: Metformin ER [Glucophage ER*] 1,000 mg PO DAILY #30 tab.sa Patient Discharge Instructions: You were seen as well as altered mental status/ syncope. You were found to have 95-99% stenosis in left carotid artery, noted on MRA of the neck. As she requested to be evaluated in [place], I would recommend he use to get treatment/further evaluation by going to the hospital in [place] via [facility]. Diet: AHA Activity: Fall precautions Time spent managing pt's care (in minutes): 50
[2018-05-31 14:35] VITALS: BP 176/75; TEMP 97.3
[2018-05-31 14:48] VITALS: O2SAT 97
== END 2018-05-31 14:40 | disposition home health service (06) | DRG 948 ==
LOC: ER 18:58 → ERHOLD 22:42 → 2ND 23:47
PROVIDERS: ADMIT Hospitalist; ATTEND Hospitalist
DX: R41.82 Altered mental status, unspecified (principal); I65.22 Occlusion and stenosis of left carotid artery; G20 Parkinson's disease; E78.1 Pure hyperglyceridemia; I10 Essential (primary) hypertension; G62.9 Polyneuropathy, unspecified; N40.0 Benign prostatic hyperplasia without lower urinary tract symptoms; I48.91 Unspecified atrial fibrillation; E11.65 Type 2 diabetes mellitus with hyperglycemia; Z96.643 Presence of artificial hip joint, bilateral; Z96.651 Presence of right artificial knee joint; Z79.01 Long term (current) use of anticoagulants; Z86.73 Personal history of transient ischemic attack (TIA), and cerebral infarction without residual deficits; Z23 Encounter for immunization
CPT/HCPCS: 36415; 51702; 70450; 70544; 70549; 70553; 71045; 80048; 80053; 80061; 80076; 80307; 81003; 81015; 82550; 82553; 82962; 83036; 83605; 83690; 84145; 84484; 85025; 85610; 85730; 87040; 93005; 97163; 99285; A9577; G0008; J1650; J2270; J2405; J7030; Q2035

== ENCOUNTER 2018-08-11 19:01 | Observation (INO) | payer OTHER ==
--- OUTSIDE RECORDS SUMMARY | 2018-08-11 19:03 | XMS REPORT | Clinical Summary ---
:1955 Author Organization [facility] Address [address] [place] [address] Care Team Providers Name Role Phone Michael Castaneda MD Primary Care Provider Unavailable Allergies No Known Allergies Medications Medication Sig Dispensed Refills Start Date End Date Status insulin lispro (HumaLOG) Inject under the 0 Active 100 unit/mL injection skin 2 (two) times a day before meals. (PER SLIDING SCALE) ARIPiprazole (ABILIFY) Take 10 mg by 0 Active 10 MG tablet mouth every morning. esomeprazole (NexIUM) 40 Take 40 mg by 0 Active MG capsule mouth every morning. FLUoxetine (PROzac) 20 Take 20 mg by 0 Active MG capsule mouth 2 (two) times a day. gabapentin (NEURONTIN) Take 600 mg by 0 Active 600 mg tablet mouth 3 (three) times a day. insulin detemir Inject 20 Units 0 Active (LEVEMIR) 100 unit/mL under the skin 2 injection (two) times a day. tamsulosin (FLOMAX) 0.4 Take 0.4 mg by 0 Active mg capsule,extended mouth every release 24hr morning. traZODone (DESYREL) 50 Take 50 mg by 0 Active MG tablet mouth nightly as needed for sleep. venlafaxine XR Take 37.5 mg by 0 Active (EFFEXOR-XR) 37.5 MG 24 mouth daily. hr capsule metFORMIN (GLUCOPHAGE) Take 500 mg by 0 Active 500 mg tablet mouth 3 (three) times a day. cyanocobalamin 1000 MCG Take 1,000 mcg 0 Active tablet by mouth every morning. ascorbic acid, vitamin Take 1,000 mg by 0 Active C, (vitamin C) 1000 MG mouth daily. tablet cholecalciferol, vitamin Take 1,000 Units 0 Active D3, (VITAMIN D3) 1,000 by mouth daily. unit tablet Active Problems Problem Noted Date Bradycardia 12/08/2016 Acidosis 12/08/2016 Parkinson disease 12/08/2016 Encounters Date Type Specialty Care Team Description 07/15/2018 Telephone Neurology Anali Iyer 10/13/2017 Hospital Encounter Radiology Jessie García MD 10/13/2017 Hospital Encounter Radiology Jessie García MD Tremor 10/04/2017 Transcribe Orders Radiology Jessie García MD Tremor ( Primary Dx) after 08/10/2017 Social History Tobacco Use Types Packs/Day Years Used Date Never Smoker Alcohol Use Drinks/Week oz/Week Comments No Sex Assigned at Date Recorded Not on file Job Start Date Occupation Industry Not on file Not on file Not on file Travel History Travel Start Travel End No recent travel history available. Last Filed Vital Signs Not on file Plan of Treatment Date Type Specialty Care Team Description 08/24/2018 Office Visit Neurology Harshal Anthony MD [address] [facility] [address] [place], [place] [id number] Regan Carter MD [address] [place], [place] [id number] Health Maintenance Due Date Last Done Comments COLON CANCER SCREENING 2006 SHINGLES VACCINES (1 of 2) 2006 INFLUENZA VACCINE 03/02/2018 Procedures Procedure Name Priority Date/Time Associated Diagnosis Comments NM BRAIN SPECT W I Routine 10/13/2017 2:43 PM Tremor Results for this 123 DATSCAN CDT procedure are in the results section. after 08/10/2017 Results NM Brain Spect W I 123 Datscan (10/13/2017 2:43 PM CDT) Narrative Performed At PROCEDURE:NM BRAIN SPECT W I 123 DATSCAN RADIANT INDICATION:Tremor. TECHNIQUE: The patient was pretreated with potassium iodide drops for thyroid protection and then injected with 4 mCi of I-123 DaTscan IV. Brain SPECT imaging was then performed. FINDINGS:Striatal uptake appears normal, bilaterally. IMPRESSION: 1.Normal study.No evidence for an underlying primary Parkinsonian syndrome. [facility]-[id number] Procedure Note Interface, Radiology Results Incoming - [...] evidence for an underlying primary Parkinsonian syndrome. [facility]-[id number] Performing Organization Address City/State/Zipcode Phone Number [facility] [address] [place] [address] after 08/10/2017 Insurance Payer Benefit Plan / Group Subscriber ID Type Phone Address [facility] MEDICARE AARP MEDICARE COMPLETE MCR xxxxxxxxx HMO ([place]) [place] [address] Advance Directives Patient has advance care planning documents on file. For more information, please contact:Carson Valladares[address] [place] [address]
--- OUTSIDE RECORDS SUMMARY | 2018-08-11 19:03 | XMS REPORT ---
:1955 [facility] Address [address] [place] [address] Dr. Castorena [address] [place] [id number] Care Team Providers Name Role Phone Unavailable Unavailable Unavailable Problems This patient has no known problems. Allergies, Adverse Reactions, Alerts This patient has no known allergies or adverse reactions. Medications This patient has no known medications.
--- OUTSIDE RECORDS SUMMARY | 2018-08-11 19:04 | XMS REPORT ---
:1955 Author Organization [employer] Care Team Providers Name Role Phone Roxanne Norris Provider Role Unavailable Allergies, Adverse Reactions, [...] Status Dosage System Date Date Gemfibrozil ND 43246925903 600 MG Orally Apr 20, Active 1 tablet Once a day 2017 Simvastatin ND 05250917134 20 mg Orally Active 1 tablet in Once a day the evening Risperidone ND 97846391376 2 MG Orally Active 1 tablet in Once a day evening Tamsulosin HCl ND 08850043603 0.4 MG Orally December Active 1 capsule Once a day 2018 Lyrica [facility] 30505840015 50 MG Orally Active 1 capsule Twice a day Levemir [facility] 95454517857 100 UNIT/ML Apr 20, Active 20 units FlexTouch Subcutaneous 2017 Twice daily BusPIRone HCl [facility] 26651075687 7.5 MG Orally Apr 20, Active 1 tablet as Twice a day 2017 needed for anxiety Sotalol HCl [facility] 38005474291 80 MG Orally Active 1 tablet every 12 hrs Q53-Suhmil [facility] 24744962021 1 MG Orally Active as directed Alprazolam [facility] 83982254000 1 MG Orally Active 1 tablet Twice a day Oxycodone-Aceta [facility] 06810036921 10-325 MG Active 1 tablet as minophen Orally every 6 needed hrs Fluoxetine HCl [facility] 07916513676 40 MG Orally Active 1 capsule Once a day Results No Known Results Summary Purpose [employer]Works Submission
--- OUTSIDE RECORDS SUMMARY | 2018-08-11 19:04 | XMS REPORT ---
:1955 Author Organization [facility] Care Team Providers Name Role Phone Roxanne Norris Provider Role Unavailable Allergies No Known Allergies Problems Problem Type Condition Code Onset Dates Condition Status Problem Long-term insulin use Z79.4 Active Problem Chronic pain syndrome G89.4 Active Problem Depression with anxiety F41.8 Active Problem Chronic constipation K59.09 Active Problem Bipolar affective disorder, F31.9 Active remission status unspecified Problem Hyperlipidemia, unspecified E78.5 Active hyperlipidemia type Problem Type 2 diabetes mellitus with E11.21 Active diabetic nephropathy Problem Chronic kidney disease, unspecified N18.9 Active CKD stage Problem Hypertension, unspecified type I10 Active Problem Insomnia, unspecified type G47.00 Active Problem History of CVA (cerebrovascular Z86.73 Active accident) Problem Polyarthralgia M25.50 Active Problem 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 Problem Uncontrolled type 2 diabetes E11.65 Active mellitus with hyperglycemia Medications No Known Medications Results No Known Results Summary Purpose Zenph Submission
--- OUTSIDE RECORDS SUMMARY | 2018-08-11 19:04 | XMS REPORT ---
:1955 Author Organization [facility] Care Team Providers Name Role Phone Roxanne [...] Medications Results No Known Results Summary Purpose i-drive Submission
--- OUTSIDE RECORDS SUMMARY | 2018-08-11 19:04 | XMS REPORT ---
:1955 Author Organization [facility] Care Team Providers Name Role Phone Roxanne [...] Medications Results No Known Results Summary Purpose ConforMIS Submission
--- OUTSIDE RECORDS SUMMARY | 2018-08-11 19:04 | XMS REPORT ---
[...] Depression with anxiety F41.8 Active Problem Chronic kidney disease, unspecified N18.9 Active CKD stage Assessment Chronic pain syndrome G89.4 Active Problem Hypertension, unspecified type I10 Active Assessment Insomnia, unspecified type G47.00 Active Assessment Depression with anxiety F41.8 Active Problem Insomnia, unspecified type G47.00 Active Problem History of CVA (cerebrovascular Z86.73 Active accident) Problem Polyarthralgia M25.50 Active Problem 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 Problem Uncontrolled type 2 diabetes E11.65 Active mellitus with hyperglycemia Assessment Long-term insulin use Z79.4 Active Assessment Type 2 diabetes mellitus with E11.21 Active diabetic nephropathy Assessment Hyperlipidemia, unspecified E78.5 Active hyperlipidemia type Assessment Chronic kidney disease, unspecified N18.9 Active CKD stage Problem Chronic constipation K59.09 Active Problem Bipolar affective disorder, F31.9 Active remission status unspecified Assessment Hypertension, unspecified type I10 Active Problem Hyperlipidemia, unspecified E78.5 Active hyperlipidemia type Problem Type 2 diabetes mellitus with E11.21 Active diabetic nephropathy Medications Medication Code Code Instructions Start End Status Dosage System Date Date Fluoxetine HCl [facility] 56444425006 40 MG Orally Active 1 capsule Once a day BusPIRone HCl ND 29157539001 7.5 MG Orally Apr 20, Active 1 tablet as Twice a day 2018 needed for anxiety Alprazolam ND 88611172206 1 MG Orally Active 1 tablet Twice a day Oxycodone-Aceta ND 95288756502 10-325 MG Active 1 tablet as minophen Orally every 6 needed hrs Simvastatin ND 57541254175 20 mg Orally Active 1 tablet in Once a day the evening Levemir ND 36096329561 100 UNIT/ML Apr 20, Active 20 units FlexTouch Subcutaneous 2017 Twice daily Lyrica ND 38022537533 50 MG Orally Active 1 capsule Twice a day Risperidone ND 75803179064 2 MG Orally Active 1 tablet in Once a day evening A17-Mzbmwp [facility] 13912533866 1 MG Orally Active as directed Lancets [facility] 26047304694 - as directed Jul 22, Active as directed Test BS three 2017 (dispense times daily lancets of record) Blood Glucose ND 0 as directed Jul 22, Active as directed Test Strip Test BS three 2017 (DISPENSE times daily BLOOD TEST STRIPS OF RECORD) Gemfibrozil ND 92464750276 600 MG Orally Apr 20, Active 1 tablet Once a day 2017 Sotalol HCl [facility] 90644559038 80 MG Orally Active 1 tablet every 12 hrs [place] [facility] 79787735202 32G X 5 MM Jul 14, Active (TRUE PLUS subcutaneous 2017 PEN Use with NEEDLES) as Levemir directed FlexTouch BID Tamsulosin HCl [facility] 66041810105 0.4 MG Orally Britta Active 1 capsule Once a day 2018 Results No Known Results Summary Purpose [employer]ClinicalWorks Submission
--- OUTSIDE RECORDS SUMMARY | 2018-08-11 19:04 | XMS REPORT ---
:1955 [facility] Team Providers Name Role Phone Roxanne [...] diabetes E11.65 Active mellitus with hyperglycemia Problem Chronic constipation K59.09 Active Problem Bipolar affective disorder, F31.9 Active remission status unspecified Assessment Uncontrolled type 2 diabetes E11.65 Active mellitus with hyperglycemia Problem Hyperlipidemia, unspecified E78.5 Active hyperlipidemia type Problem Type 2 diabetes mellitus with E11.21 Active diabetic nephropathy Medications Medication Code Code Instructions Start End Status Dosage System Date Date Gemfibrozil [facility] 63395611899 600 MG Orally Apr 20, Active 1 tablet Once a day 2017 BusPIRone HCl ND 02126606838 7.5 MG Orally Apr 20, Active 1 tablet as Twice a day 2017 needed for anxiety I90-Ojvabd [facility] 85585879593 1 MG Orally Active as directed Levemir [facility] 25076822708 100 UNIT/ML Apr 20 Active 20 units FlexTouch Subcutaneous 2017 Twice daily Lyrica ND 40636700080 50 MG Orally Active 1 capsule Twice a day Fluoxetine HCl ND 89310883656 40 MG Orally Active 1 capsule Once a day Risperidone ND 27961008679 2 MG Orally Active 1 tablet in Once a day evening [place] [facility] 04758515627 32G X 5 MM Jul 14 (TRUE PLUS subcutaneous 2017 PEN Use with NEEDLES) as Levemir directed FlexTouch BID Tamsulosin HCl ND 49469388623 0.4 MG Orally December Active 1 capsule Once a day 2018 Alprazolam [facility] 94374546142 1 MG Orally Active 1 tablet Twice a day Sotalol HCl [facility] 89954912955 80 MG Orally Active 1 tablet every 12 hrs Oxycodone-Aceta [facility] 55513582868 10-325 MG Active 1 tablet as minophen Orally every 6 needed hrs Simvastatin [facility] 65323458622 20 mg Orally Active 1 tablet in Once a day the evening Results No Known Results Summary Purpose [employer]ClinicalWorks Submission
--- NOTE | 2018-08-11 19:25 | RAD REPORT ---
EXAM DESCRIPTION: CT - Ct Stroke Brain Wo Cont - 08/11/2018 7:11 pm CLINICAL HISTORY: Slurred speech, right-sided facial droop, CVA CLINICAL HISTORY: CT head May 2018 TECHNIQUE: Axial 5 millimeter thick images of the head were obtained without IV contrast. All CT scans are performed using dose optimization technique as appropriate and may include automated exposure control or mA/KV adjustment according to patient size. FINDINGS: No intracranial hemorrhage, mass, or cerebral edema. No acute infarction identifiable. Pat ient has relatively mild underlying atrophy and chronic ischemic change. Findings match the May omparison study. Freitas matter-white matter differentiation is preserved. Visualized portions of the mastoid air cells, paranasal sinuses, and orbits are unremarkable. Findings telephoned to the referring physician 7:20 p.m. IMPRESSION: No hemorrhage is present. No acute cortical based infarction. Mild atrophy and chronic ischemic changes are present. Chronic ischemic changes can mask nonhemorrhagic acute infarction. MR brain followup can be obtained if there is ongoing concern for acute ischemia.
[2018-08-11 19:27] LABS: Absolute Lymphocytes (CBC) 2.4 K/uL (0.7-4.9); Absolute Monocytes 0.3 K/uL (0.1-1.3); Absolute Neutrophil 1.9 K/uL (1.8-8.0); Basophils % 0.8 % (0-1.3); Eosinophils % 3.9 % (0-4.4); Hematocrit 37.7 % (39.6-49.0); Lymphocytes % 48.7 % (15.3-44.8); MPV 9.3 fL (7.6-11.3); Monocytes % 7.1 % (3.3-12.3); RBC Red Blood Cell Count 4.01 M/uL (4.33-5.43)
[2018-08-11 19:31] LABS: Protime INR 1.04
[2018-08-11 19:56] LABS: ALT/SGPT 30 U/L (12-78); AST/SGOT 28 U/L (15-37); Albumin 3.4 g/dL (3.4-5.0); Alkaline Phosphatase 93 U/L (45-117); BUN Blood Urea Nitrogen 13 mg/dL (7-18); Bicarbonate 28 mmol/L (21-32); Bilirubin Direct < 0.1 mg/dL (0-0.2); Bilirubin Total 0.2 mg/dL (0.2-1.0); Glucose Level 189 mg/dL (74-106); Protein, Total 8.2 g/dL (6.4-8.2); Sodium Level 142 mmol/L (136-145); Troponin (Emerg Dept Use Only) < 0.02 ng/mL (0.0-0.045)
--- NOTE | 2018-08-11 20:16 | RAD REPORT ---
EXAM DESCRIPTION: RAD - Chest Single View - 08/11/2018 7:36 pm CLINICAL HISTORY: Facial weakness, Stroke protocol chest exam, shortness of breath COMPARISON: May 27, 2018 TECHNIQUE: AP portable chest image was obtained 1929 hours . FINDINGS: Lung volumes are low accentuating lung markings. No peripheral mass or consolidation. Fail ure and volume overload are not suspected. Heart and vasculature are normal. No measurable pleural ef fusion and no pneumothorax. No acute bony abnormality seen. No acute aortic findings suspected. IMPRESSION: No acute cardiopulmonary process.
--- NOTE | 2018-08-11 20:56 | EDPHYS ---
Physician Documentation [facility] Name: David Lopez Age: 63 yrs Sex: Male : 1955 Arrival Date: 08/11/2018 Time: 19:05 Bed 7 Private MD: ED Physician Michael Monique HPI: 08/11 20:16 This 63 yrs old Male presents to ER via EMS with complaints of S/S of Possible wa Stroke. 20:16 The patient's problem is reported as a facial droop, on right, paresthesias, in right wa side of face, weakness, per , last seen at baseline at 1500 hours. pt noted with right facial droop, mild slurred speech and food dripping from right side of mouth when eating. pt admits to MOSER x 4 days. denies dizziness. admits to SOB but denies chest pain. denies abd pain, nausea, vomiting, fever or problems with urination. pt states has not walked for over a year. uses wheelchair. h/o prior CVA. also has Parkinson's-like tremor he says he developed after a stroke several years back. States was receiving treatment for Parkinson's but has been told lately that he does not have parkinson's . Onset: The symptoms/episode began/occurred at 15:00. Duration: This was a single incident, The episode is continuous. Context: the episode(s) was witnessed, self. , symptoms became apparent at 15:00. occurred at home, occurred while the patient was at rest, Possible contributing factors include: unknown. h/o CVA. The symptoms are alleviated by nothing. The symptoms are aggravated by nothing. Associated signs and symptoms: Pertinent positives: headache, shortness of breath, slurred speech, Pertinent negatives: abdominal pain, agitation, blurred vision, chest pain, confusion, diaphoresis, dizziness, lightheadedness, nausea, palpitations, seizure. Severity of symptoms: At their worst the symptoms were moderate in the emergency department the symptoms are unchanged Pain is currently a 4 / 10. Patient's baseline: Neuro: alert and fully oriented, Motor: bilateral upper and lower extremity weakness. unable to walk at baseline. yes. h/o CVA. The patient has not recently seen a physician. Historical: - Home Meds: 19:19 alprazolam 1 mg Oral TbDL 1 tab 3 times per day [Active]; fluoxetine 40 mg Oral cap 1 tl2 cap once daily [Active]; gabapentin 600 mg Oral tab 1 tab 3 times per day [Active]; gemfibrozil 600 mg Oral tab daily [Active]; Lyrica 50 mg Oral daily [Active]; omeprazole 20 mg Oral cpDR 1 cap once daily [Active]; oxycodone-acetaminophen 10-650 mg Oral tab every 4 hours [Active]; Risperdal 2 mg Oral tab 1 tab once daily [Active]; simvastatin 20 mg Oral tab 1 tab once daily [Active]; sotalol 80 mg Oral tab 1 tab 2 times per day [Active]; tamsulosin 0.4 mg Oral cp24 1 cap once daily [Active]; trazodone 50 mg Oral tab nightly [Active]; - PMHx: 19:19 CVA; Diabetes - NIDDM; Hypertension; Parkinsons; tl2 - Immunization history:: Adult Immunizations up to date. - Social history:: Smoking status: Patient/guardian denies using tobacco. - Ebola Screening: : No symptoms or risks identified at this time. - Family history:: Mother has/had hypertension, Father has/had diabetes, hypertension. - Hospitalizations: : No recent hospitalization is reported. ROS: 20:31 Constitutional: Negative for fever, chills, and weight loss, Eyes: Negative for injury, wa pain, redness, and discharge, ENT: Negative for injury, pain, and discharge, Abdomen/GI: Negative for abdominal pain, nausea, vomiting, diarrhea, and constipation, Back: Negative for injury and pain, : Negative for injury, bleeding, discharge, and swelling, Skin: Negative for injury, rash, and discoloration. 20:31 MS/Extremity: Negative for injury and deformity. 20:31 Neck: Positive for pain at rest. 20:31 Cardiovascular: Negative for chest pain, edema, palpitations. 20:31 Respiratory: Positive for shortness of breath, Negative for cough, hemoptysis, wheezing. 20:31 Neuro: Positive for headache, speech changes, weakness, of the right face, Negative for altered mental status, dizziness, loss of consciousness, seizure activity, syncope, tingling, visual changes. 20:31 All other systems are negative. Exam: 20:33 Radiologist reports: No acute bleed. chronic ischemic changes and mild atrophy wa 20:33 Constitutional: This is a well developed, well nourished patient who is awake, alert, and in no acute distress. Head/Face: Normocephalic, atraumatic. Eyes: Pupils equal round and reactive to light, extra-ocular motions intact. Lids and lashes normal. Conjunctiva and sclera are non-icteric and not injected. Cornea within normal limits. Periorbital areas with no swelling, redness, or edema. ENT: Nares patent. No nasal discharge, no septal abnormalities noted. Tympanic membranes are normal and external auditory canals are clear. Oropharynx with no redness, swelling, or masses, exudates, or evidence of obstruction, uvula midline. Mucous membranes moist. Chest/axilla: Normal chest wall appearance and motion. Nontender with no deformity. No lesions are appreciated. Cardiovascular: Regular rate and rhythm with a normal S1 and S2. No gallops, murmurs, or rubs. Normal PMI, no JVD. No pulse deficits. Respiratory: Lungs have equal breath sounds bilaterally, clear to auscultation and percussion. No rales, rhonchi or wheezes noted. No increased work of breathing, no retractions or nasal flaring. Abdomen/GI: Soft, non-tender, with normal bowel sounds. No distension or tympany. No guarding or rebound. No evidence of tenderness throughout. Back: No spinal tenderness. No costovertebral tenderness. Full range of motion. Skin: Warm, dry with normal turgor. Normal color with no rashes, no lesions, and no evidence of cellulitis. 20:33 Neck: External neck: is normal, C-spine: diffuse tenderness. 20:33 Neuro: Orientation: is normal, Mentation: is normal, Memory: is normal, Cranial nerves: grossly normal, Cerebellar function: not tested due to generalized weakness, Motor: noted flattening of the right nasolabial fold. forehead involvement difficult to assess as pt does not raise eyebrows to my command. bilateral tremor noted. bilateral muscle atrophy noted. no pronator drift. speech not slurred. motor weakness noted in all extremities but symmetrical. 20:33 Psych: Behavior/mood is cooperative, Affect is calm, Judgement / Insight is normal. Vital Signs: 19:19 BP 154 / 80; Pulse 66; Resp 18; Temp 98.9(O); Pulse Ox 99% on R/A; Weight 77.11 kg; tl2 Height 5 ft. 7 in. (170.18 cm); 19:53 BP 141 / 74; Pulse 68; Resp 13; Pulse Ox 98% ; ea 20:01 BP 141 / 74; Pulse 72; Resp 12; Pulse Ox 98% on R/A; tl2 20:53 BP 125 / 91; Pulse 65; Resp 11; Pulse Ox 98% on R/A; tl2 22:05 BP 103 / 69; Pulse 65; Resp 11; Pulse Ox 97% on R/A; tl2 23:11 BP 106 / 66; Pulse 63; Resp 13; Pulse Ox 98% on R/A; ea 19:19 Body Mass Index 26.63 (77.11 kg, 170.18 cm) tl2 NIH Stroke Scale Scores: 19:10 NIHSS Score: 3 tl2 MDM: 19:08 Patient medically screened. wa 20:37 Differential diagnosis: CVA, TIA, metabolic disorder, concern for new CVA. last seen wa normal 4 hours prior to presentation. Not TPA candidate at this time. will work up. if negative CT, ASA, admit for MRI and further neuro eval. admits to SOB. will assess cardiopulm system to r/o acute pathology. Data reviewed: vital signs, nurses notes. Test interpretation: by ED physician or midlevel provider: EKG: at 1917 hrs: HR 67. no acute ischemic changes. no dysrythmia. 20:40 Test interpretation: by ED physician or midlevel provider: labs noted for hyperglycemia nc at 189. . 20:42 Test interpretation: by ED physician or midlevel provider: CXR: no acute process. wa 20:42 Test interpretation: by ED physician or midlevel provider: CXR: no acute process. ED wa course: failed initial swallow study per nurse. will administer ASA [place]. 20:53 Physician consultation: Yvon Perez MD. ED course: will admit. consult neuro on wa call. . 08/11 19:09 Order name: Hepatic Function; Complete Time: 20:06 08/11 19:09 Order name: Troponin (emerg Dept Use Only); Complete Time: 20:06 08/11 19:09 Order name: Basic Metabolic Panel; Complete Time: 20:08/11 19:09 Order name: CBC with Diff; Complete Time: 20:06 08/11 19:09 Order name: Protime (+inr); Complete Time: 20:07 08/11 19:09 Order name: Ptt, Activated; Complete Time: 20:07 08/11 19:07 Order name: CT Stroke Brain w/o Contrast; Complete Time: 20:06 08/11 19:09 Order name: Stroke CXR 1 View; Complete Time: 20:42 08/11 19:09 Order name: EKG; Complete Time: 19:11 08/11 19:09 Order name: Accucheck; Complete Time: 19:26 08/11 19:09 Order name: Cardiac monitoring; Complete Time: 19:26 08/11 20:41 Order name: Urine Microscopic Only 08/11 20:48 Order name: Urine Drug Screen 08/11 19:09 Order name: EKG - Nurse/Tech; Complete Time: 19:26 08/11 19:09 Order name: IV Saline Lock; Complete Time: 19:08/11 19:09 Order name: Labs collected and sent; Complete Time: 19:08/11 19:09 Order name: NPO; Complete Time: 19:29 08/11 19:09 Order name: O2 Per Protocol; Complete Time: 19:08/11 19:09 Order name: O2 Sat Monitoring; Complete Time: 19:08/11 19:09 Order name: Stroke Swallow Screen; Complete Time: 19:31 nc Administered Medications: 20:39 Drug: Aspirin Suppository 300 mg Route: [place]; ea 21:00 Follow up: Response: No adverse reaction ea Point of Care Testing: Blood Glucose: 19:19 Blood Glucose: 204 mg/dL; tl2 Ranges: Critical Glucose Levels:Adult <50 mg/dl or >400 mg/dl <40 mg/dl or >180 mg/dl Disposition: 08/11/18 20:56 Hospitalization ordered by Yvon Perez for Inpatient Admission. Preliminary diagnosis are Acute Right Facial Weakness, Slurred Speech. - Bed requested for Telemetry/MedSurg (Inpatient). - Status is Inpatient Admission. tl2 - Condition is Stable. - Problem is new. - Symptoms have improved. UTI on Admission? No NIH Stroke Scale - NIH Stroke Score Date: 08/11/2018 Time: 19:10 Total Score = 3 1a. Level of Consciousness (LOC) - 0(Alert) 1b. Level of Consciousness (LOC) (Year \T\ Age) - 0(Both) 1c. LOC Commands (Open \T\ Closes Eyes/Protective Signal Operations Supervisor) - 0(Both) 2. Best Gaze (Lateral Gaze Paresis) - 0(Normal) 3. Visual Field Loss - 0(No visual loss) 4. Facial Palsy - 1(Minor Paralysis) 5a. Left Arm: Motor (10-second hold) - 0(No drift) 5b. Right Arm: Motor (10-second hold) - 0(No drift) 6a. Left Leg: Motor (5-second hold - always test supine) - 0(No drift) 6b. Right Leg: Motor (5-second hold - always test supine) - 0(No drift) 7. Limb Ataxia (finger/nose \T\ heel/donato - test with eyes open) - 0(Absent) 8. Sensory Loss (pinprick arms/legs/face) - 1(Mild to moderate loss) 9. Best Language: Aphasia (description/naming/reading) - 0(No aphasia) 10. Dysarthria (speech clarity - read or repeat words) - 1(Mild to Moderate) 11. Extinction and Inattention (visual/tactile/auditory/spatial/personal) - 0(No abnormality) Initials: tl2 Signatures: Dispatcher [employer] EDMS Sudha Lozoya RN RN kl Knox, Taylor, RN RN 2 Janette Santana RN RN ea Appiah, William, MD MD wa Corrections: (The following items were deleted from the chart) 23:17 20:56 Hospitalization Ordered by Yvon Perez MD for Inpatient Admission. brett Preliminary diagnosis is Acute Right Facial Weakness; Slurred Speech. Bed requested for Telemetry/MedSurg (Inpatient). Status is Inpatient Admission. Condition is Stable. Problem is new. Symptoms have improved. UTI on Admission? No. sriram 08/12 00:33 08/11 23:17 08/11/2018 20:56 Hospitalization Ordered by Yvon Perez MD for tl2 Inpatient Admission. Preliminary diagnosis is Acute Right Facial Weakness; Slurred Speech. Bed requested for Telemetry/MedSurg (Inpatient). Status is Inpatient Admission. Condition is Stable. Problem is new. Symptoms have improved. UTI on Admission? No. kl
--- NOTE | 2018-08-11 20:56 | ER ---
Nurse's Notes [facility] Name: David Lopez Age: 63 yrs Sex: Male : 1955 Arrival Date: 08/11/2018 Time: 19:05 Bed 7 Private MD: Diagnosis: Acute Right Facial Weakness;Slurred Speech Presentation: 08/11 19:12 Presenting complaint: EMS states: noticed that when she went to feed pt, he had a tl2 droop on the right side and was having difficulty eating and moderate slurred speech. Pt has hx of parkinson's and is bed bound. Pt AOx3, reports decreased sensation on right side of face. states last known normal was at 1500 today. Transition of care: patient was not received from another setting of care. An acute neurological deficit is present. The charge nurse has been notified. The patients blood glucose was checked prior to arriving to the hospital and was found to be hyperglycemic. Onset of symptoms was August 11, 2018 at 18:30. Risk Assessment: Do you want to hurt yourself or someone else? Patient reports no desire to harm self or others. Initial Sepsis Screen: Does the patient meet any 2 criteria? No. Patient's initial sepsis screen is negative. Does the patient have a suspected source of infection? No. Patient's initial sepsis screen is negative. Care prior to arrival: Glucose check: 182. 19:12 Method Of Arrival: EMS: [facility] tl2 19:12 Acuity: LEANNA 2 tl2 Triage Assessment: 19:10 The onset of the patients symptoms was August 11, 2018 at 15:00. tl2 19:19 The onset of the patients symptoms was more than three but less than six hours ago. tl2 General: Appears in no apparent distress. uncomfortable, Behavior is calm, cooperative, appropriate for age. Pain: Complains of pain in headache, neck pain. Neuro: Level of Consciousness is awake, alert, obeys commands, Oriented to person, place, time, Vibration Technician are equal bilaterally Speech is slurred, Facial droop on right, Tingling in right side of face Reports headache Denies blurred vision dizziness. Cardiovascular: Denies chest pain. Cardiovascular: Rhythm is sinus rhythm. Respiratory: Airway is patent Respiratory effort is even, unlabored, Respiratory pattern is regular, symmetrical. GI: No signs and/or symptoms were reported involving the gastrointestinal system. : No signs and/or symptoms were reported regarding the genitourinary system. Derm: Skin is pink, warm \T\ dry. Musculoskeletal: Circulation, motion, and sensation intact. Stroke Activation: Physician: Stroke Attending; Name: ; Notified At: ; Arrived At: Physician: Chief Stroke Resident; Name: ; Notified At: ; Arrived At: Physician: Stroke Resident; Name: ; Notified At: ; Arrived At: Physician: ED Attending; Name: Kayden; Notified At: 19:06; Arrived At: 19:06 Physician: ED Resident; Name: ; Notified At: ; Arrived At: Historical: - Home Meds: 19:19 alprazolam 1 mg Oral TbDL 1 tab 3 times per day [Active]; fluoxetine 40 mg Oral cap 1 tl2 cap once daily [Active]; gabapentin 600 mg Oral tab 1 tab 3 times per day [Active]; gemfibrozil 600 mg Oral tab daily [Active]; Lyrica 50 mg Oral daily [Active]; omeprazole 20 mg Oral cpDR 1 cap once daily [Active]; oxycodone-acetaminophen 10-650 mg Oral tab every 4 hours [Active]; Risperdal 2 mg Oral tab 1 tab once daily [Active]; simvastatin 20 mg Oral tab 1 tab once daily [Active]; sotalol 80 mg Oral tab 1 tab 2 times per day [Active]; tamsulosin 0.4 mg Oral cp24 1 cap once daily [Active]; trazodone 50 mg Oral tab nightly [Active]; - PMHx: 19:19 CVA; Diabetes - NIDDM; Hypertension; Parkinsons; tl2 - Immunization history:: Adult Immunizations up to date. - Social history:: Smoking status: Patient/guardian denies using tobacco. - Ebola Screening: : No symptoms or risks identified at this time. - Family history:: Mother has/had hypertension, Father has/had diabetes, hypertension. - Hospitalizations: : No recent hospitalization is reported. Screenin:32 Abuse screen: Denies threats or abuse. Nutritional screening: No deficits noted. tl2 Tuberculosis screening: No symptoms or risk factors identified. Fall Risk IV access (20 points). Ambulatory Aid- None/Bed Rest/Nurse Assist (0 pts). Gait- Impaired (20 pts.). Mental Status- Oriented to own ability (0 pts). Assessment: 19:08 Reassessment: Code Stroke called at 1904. iw 19:27 Reassessment: Kaye at [facility] notified to consult stroke team. iw 19:30 T-PA (Activase) Screening: Contraindications: Rapidly improving condition or minor tl2 deficit: Yes. Reassessment: MD denied need for TPA due to last known normal being greater than 3 hours ago. 19:31 The patient has not been NPO before screening. The patient is alert, and able to follow tl2 commands. The patient does not exhibit slurred or garbled speech. The patient is not exhibiting difficulty speaking. The patient does not exhibit difficulty understanding words. The patient is able to swallow own secretions with no drooling or need for suction. Patient tolerated one teaspoon of water. No drooling, immediate coughing, gurgling, or clearing of the throat was noted. The patient did not tolerate 90mL of water. Drooling, immediate coughing, gurgling, or clearing of the throat was noted. Bedside swallow screening discontinued. Patient kept NPO until cleared by Speech Therapy or Physician. The patient failed the bedside swallow screening. The patient will be kept NPO until cleared by Speech Therapy or Physician. Provider notified of bedside swallow screening results: Michael Monique MD. 19:39 Reassessment: called [facility] again, Kaye advises that Dr. Macias is in a procedure at this time and will call back. 19:48 Reassessment: Dr. Monique states he cano snot need consult with Dr. Macias at this time, due iw to Dr. Sy being sales applications engineer. 20:42 Reassessment: Patient and/or family updated on plan of care and expected duration. Pain ea level reassessed. Patient is alert, oriented x 3, equal unlabored respirations, skin warm/dry/pink. 23:10 Reassessment: Patient and/or family updated on plan of care and expected duration. Pain ea level reassessed. Pt resting with eyes closed, respirations even and unlabored. Chest expansions even and symmetrical. No s/s of pain or discomfort noted at this time, pt family member at bedside. Vital Signs: 19:19 BP 154 / 80; Pulse 66; Resp 18; Temp 98.9(O); Pulse Ox 99% on R/A; Weight 77.11 kg; tl2 Height 5 ft. 7 in. (170.18 cm); 19:53 BP 141 / 74; Pulse 68; Resp 13; Pulse Ox 98% ; ea 20:01 BP 141 / 74; Pulse 72; Resp 12; Pulse Ox 98% on R/A; tl2 20:53 BP 125 / 91; Pulse 65; Resp 11; Pulse Ox 98% on R/A; tl2 22:05 BP 103 / 69; Pulse 65; Resp 11; Pulse Ox 97% on R/A; tl2 23:11 BP 106 / 66; Pulse 63; Resp 13; Pulse Ox 98% on R/A; ea 19:19 Body Mass Index 26.63 (77.11 kg, 170.18 cm) tl2 Vitals: 20:01 Cardiac Rhythm Assessment Sinus rhythm. tl2 NIH Stroke Scale Scores: 19:10 NIHSS Score: 3 tl2 ED Course: 19:05 Patient arrived in ED. iw 19:08 Michael Monique MD is Attending Physician. wa 19:08 Inserted saline lock: 20 gauge in right antecubital area, using aseptic technique. ea Blood collected. 19:12 CT Stroke Brain w/o Contrast In Process Unspecified. EDMS 19:16 Triage completed. tl2 19:19 Arm band placed on right wrist. tl2 19:32 Patient has correct armband on for positive identification. Placed in gown. Bed in low tl2 position. Call light in reach. Side rails up X2. 19:36 Stroke CXR 1 View In Process Unspecified. EDMS 20:55 Yvon Perez MD is Hospitalizing Provider. wa 22:05 Jaz Meyer RN is Primary Nurse. tl2 23:12 No provider procedures requiring assistance completed. Patient admitted, IV remains in ea place. Administered Medications: 20:39 Drug: Aspirin Suppository 300 mg Route: AK; ea 21:00 Follow up: Response: No adverse reaction ea Point of Care Testing: Blood Glucose: 19:19 Blood Glucose: 204 mg/dL; tl2 Ranges: Outcome: 20:56 Decision to Hospitalize by Provider. wa 21:30 Discharge instructions given to patient, family, Instructed on the need for admit. ea 08/12 00:31 Admitted to Tele tl2 Condition: stable 00:33 Patient left the ED. tl2 NIH Stroke Scale - NIH Stroke Score Date: 08/11/2018 Time: 19:10 Total Score = 3 1a. Level of Consciousness (LOC) - 0(Alert) 1b. Level of Consciousness (LOC) (Year \T\ Age) - 0(Both) 1c. LOC Commands (Open \T\ Closes Eyes/Technician Preventative Medicine) - 0(Both) 2. Best Gaze (Lateral Gaze Paresis) - 0(Normal) 3. Visual Field Loss - 0(No visual loss) 4. Facial Palsy - 1(Minor Paralysis) 5a. Left Arm: Motor (10-second hold) - 0(No drift) 5b. Right Arm: Motor (10-second hold) - 0(No drift) 6a. Left Leg: Motor (5-second hold - always test supine) - 0(No drift) 6b. Right Leg: Motor (5-second hold - always test supine) - 0(No drift) 7. Limb Ataxia (finger/nose \T\ heel/donato - test with eyes open) - 0(Absent) 8. Sensory Loss (pinprick arms/legs/face) - 1(Mild to moderate loss) 9. Best Language: Aphasia (description/naming/reading) - 0(No aphasia) 10. Dysarthria (speech clarity - read or repeat words) - 1(Mild to Moderate) 11. Extinction and Inattention (visual/tactile/auditory/spatial/personal) - 0(No abnormality) Initials: tl2 Signatures: Dispatcher [employer] EDAK Joi Zheng RN RN Jaz Meyer RN RN 2 Janette Santana RN RN ea Appiah, William, MD MD wa Corrections: (The following items were deleted from the chart) 00:33 00:32 The onset of the patients symptoms was August 11, 2018 at 15:00 tl2 tl2
--- NOTE | 2018-08-11 23:45 | P.HP ---
Certification for Inpatient Patient admitted to: Observation With expected LOS: <2 Midnights Practitioner: I am a practitioner with admitting privileges, knowledge of patient current condition, hospital course, and medical plan of care. 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 No diagnostic made yet) who was in his usual state until today at 3:00 PM, when his noticed that the patient had right facial droop. He was complaining of numbness around his mouth. BS at this time was about 160's. The patient was complaining of headache since 4 days ago. He is not ambulatory, bed bound, he denied new weakeness on his limbs. No history of fever or chills. CT head shows no acute abnormalities. Allergies No Known Allergies Allergy (Unverified 05/30/18 12:45) Home medications list reviewed: Yes Home Medications: ALPRAZolam [Alprazolam] 1 mg PO TID 05/28/18 ARIPiprazole [Aripiprazole] 10 mg PO DAILY 05/28/18 Aspirin [Aspirin EC 81 MG] 1 tab PO DAILY 05/28/18 Benztropine Mesylate 2 mg PO BEDTIME 05/28/18 Docusate Sodium [Stool Softener] 1 tab PO TIDP PRN 05/28/18 Fluoxetine HCl [Prozac] 1 tab PO DAILY 05/28/18 Gabapentin 1 tab PO TID 05/28/18 Gemfibrozil [Lopid*] 1 tab PO DAILY 05/28/18 Indomethacin 1 tab PO BID 05/28/18 Oxycodone HCl/Acetaminophen [Percocet 10-325 mg Tablet] 1 tab PO Q4HP PRN Pregabalin [Lyrica*] 50 mg PO TID 05/28/18 Simvastatin 20 mg PO BEDTIME 05/28/18 Sotalol HCl [Betapace*] 1 tab PO Q12HR 05/28/18 Tamsulosin HCl 1 tab PO DAILY 05/28/18 Trazodone [Desyrel*] 1 tab PO BEDTIME PRN PRN 05/28/18 hydrOXYzine pamoate [Hydroxyzine Pamoate] 1 tab PO TID 05/28/18 risperiDONE [Risperidone] 2 mg PO BEDTIME 05/28/18 Metformin ER [Glucophage ER*] 1,000 mg PO DAILY #30 tab.sa 05/31/18 - Past Medical/Surgical History Diabetic: Yes -: NIDDM -: GERD -: BPH -: Depression -: HTN -: Chronic Pain -: Herpes zoster January 21, 2014 -: asbestos -: left kidney cancer 18 years ago -: femur sx X3 -: neck surg -: [place] hip replacement -: right knee replacement -: left kidney removal -: back surgery - Family History Mother -: Diabetes Brother -: Diabetes - Social History Alcohol use: No CD- Drugs: No Caffeine use: No Place of Residence: Home Review of Systems 10-point ROS is otherwise unremarkable Physical Examination - Physical Exam General: Alert, In no apparent distress HEENT: Atraumatic, PERRLA, Mucous membr. moist/pink, EOMI, Sclerae nonicteric Neck: Supple, 2+ carotid pulse no bruit, No LAD, Without JVD or thyroid abnormality Respiratory: Clear to auscultation bilaterally, Normal air movement Cardiovascular: Regular rate/rhythm, Normal S1 S2 Gastrointestinal: Normal bowel sounds, No tenderness Musculoskeletal: No tenderness Integumentary: No rashes Neurological: Normal speech, Normal tone, Normal affect, Other (the patiet has right facial hemiparesis), Abnormal strength (bilateral LE 1/5, bilateral upper exremity 3/5 (seems to be his baseline)) Lymphatics: No axilla or inguinal lymphadenopathy - Studies Laboratory Data (last 24 hrs) 08/11/18 19:09: PT 12.3, INR 1.04, APTT 35.8 08/11/18 19:09: WBC 4.8, Hgb 12.8 L, Hct 37.7 L, Plt Count 154 08/11/18 19:09: Sodium 142, Potassium 5.0, BUN 13, Creatinine 1.02, Glucose 189 H, Total Bilirubin 0.2, AST 28, ALT 30, Alkaline Phosphatase 93 Assessment and Plan - Problems (Diagnosis) (1) Facial hemiparesis Current Visit: Yes Status: Acute (2) HTN (hypertension) Current Visit: Yes Status: Acute Qualifiers: Hypertension type: essential hypertension Qualified Code(s): I10 - Essential (primary) hypertension (3) Diabetes mellitus Current Visit: Yes Status: Acute Qualifiers: Diabetes mellitus type: type 2 Diabetes mellitus detention insulin 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 The patient arrived to ED outside of thrombolitic therapeutic window. Will start plavix since the patient was taking ASA already, statins, order echo, brain MRI, carotid doppler and neurologist consult. - Advance Directives Does patient have a Living Will: No Does patient have a Durable POA for Healthcare: No - Code Status/Comfort Care Code Status Assessed: Yes Code Status: Full Code
[2018-08-12 00:57] VITALS: O2SAT 98
[2018-08-12] MEDS: INSULIN -REGULAR HUMAN 50 UNIT/0.5 ML ML SQ SCH ×4 (01:39→17:42)
[2018-08-12] MEDS ORDERED: ONDANSETRON 4 MG/2 ML VIAL IV PRN (01:39)
[2018-08-12] MEDS: NA CHLORIDE 0.9% 1,000 ML IV SCH ×3 (01:39→14:59)
[2018-08-12 03:58] VITALS: BMI 26.6
[2018-08-12] MEDS ORDERED: KETOROLAC 30 MG/ML INJ IV ONE (04:03)
[2018-08-12 04:41] LABS: Urine Bacteria <20 /HPF (NONE SEEN); Urine RBC <5 /HPF (NONE SEEN)
[2018-08-12 04:42] LABS: Urine Culture Reflex Order NOT NEEDED
[2018-08-12 04:43] LABS: Barbiturates NEGATIVE (NEGATIVE); Benzodiazepines NEGATIVE (NEGATIVE); Cocaine NEGATIVE (NEGATIVE); METHAMPHETAM NEGATIVE (NEGATIVE); Methadone NEGATIVE (NEGATIVE); Opiates NEGATIVE (NEGATIVE); Phencyclidine NEGATIVE (NEGATIVE); THC Cannibis NEGATIVE (NEGATIVE)
[2018-08-12 06:21] LABS: Absolute Monocytes 0.4 K/uL (0.1-1.3); Basophils % 0.8 % (0-1.3); Eosinophils % 3.4 % (0-4.4); Hematocrit 32.8 % (39.6-49.0); Lymphocytes % 53.1 % (15.3-44.8); MPV 9.2 fL (7.6-11.3); Monocytes % 7.5 % (3.3-12.3); RBC Red Blood Cell Count 3.49 M/uL (4.33-5.43)
[2018-08-12 06:43] LABS: Potassium 4.2 mmol/L (3.5-5.1)
[2018-08-12] MEDS ORDERED: INFLUENZA VACCINE (for 3y+) 0.5 ML DOSE IMVAC ONE (08:00)
--- NOTE | 2018-08-12 09:39 | EKG ---
Test Date: 2018-08-11 Test Time: 19:17:15 Melt Down Furnace Operator: DELMY MEASUREMENT RESULTS: Intervals: Rate: 67 [place]: 150 QRSD: 86 QT: 442 QTc: 467 [place]: P: 71 [place]: 150 QRS: 26 T: 22 INTERPRETIVE STATEMENTS: Normal sinus rhythm Normal ECG Compared to ECG 05/27/2018 19:28:26 Myocardial infarct finding no longer present Electronically Signed On 08-12-18 09:38:20 SERVICE COUNTER CASHIER by Jakob Abdullahi
[2018-08-12] MEDS ORDERED: ALPRAZOLAM 1 MG TABLET PO PRN (10:59)
[2018-08-12] MEDS: ENOXAPARIN 40 MG/0.4 ML SQ SCH (11:04)
--- NOTE | 2018-08-12 11:04 | RAD REPORT ---
EXAM DESCRIPTION: RAD - Chest Single View - 08/12/2018 10:54 am CLINICAL HISTORY: Stroke Chest pain. COMPARISON: Chest Single View dated 08/11/2018; Chest Single View dated 05/27/2018; Chest Single View dated 02/18/2018; Chest Single View dated 11/20/2016 FINDINGS: Portable technique limits examination quality. The lungs are grossly clear. The heart is normal in size. No displaced fractures. IMPRESSION: No acute intrathoracic process suspected.
--- NOTE | 2018-08-12 12:10 | RAD REPORT ---
EXAM DESCRIPTION: MRI - Brain W/Wo Cont - 08/12/2018 12:00 pm CLINICAL HISTORY: cva CVA symptomology, weakness, headache COMPARISON: MRA Head Wo Cont dated 08/12/2018; Brain W/Wo Cont dated 05/30/2018; MRA Head Wo Cont [place] ed 05/30/2018; Brain Wo Cont dated 01/30/2016 TECHNIQUE: Multi-sequence, multiplanar MR imaging of the brain was performed with contrast. FINDINGS: No intracranial hemorrhage, hydrocephalus, or extra-axial fluid collection.Areas of T2/FLA IR hyperintensity in the periventricular and deep white matter most compatible with chronic microvasc ular ischemic changes. No edema or shift of midline structures. No intracranial mass. DWI is negative for acute CVA. The midline structures are normally formed. Mastoid air cells and paranasal sinuses are clear. Post-contrast images show no abnormal enhancement to suggest tumor or infection. IMPRESSION: Negative for acute CVA or other acute intracranial abnormality. No pathologic post-contrast enhancement suspected.
--- NOTE | 2018-08-12 12:11 | RAD REPORT ---
EXAM DESCRIPTION: MRI - MRA Head Wo Cont - 08/12/2018 11:59 am CLINICAL HISTORY: R/O Acute CVA CVA symptomology, weakness, headache COMPARISON: Ct Stroke Brain Wo Cont dated 08/11/2018; Brain W/Wo Cont dated 05/30/2018; MRA Head Wo C ont dated 05/30/2018; Brain Wo Cont dated 01/30/2016 FINDINGS: 3D noncontrast [id number] MR angiography of the [place] of [place] was performed. No aneurysm, flow-limiting stenosis or vascular malformation is seen. Forward flow seen in codominant vertebral arteries. The visualized dural venous sinuses appear patent. IMPRESSION: No significant flow abnormality of the [place] is identified.
--- NOTE | 2018-08-12 12:14 | RAD REPORT ---
EXAM DESCRIPTION: MRI - MRA Neck W/Wo Cont - 08/12/2018 12:00 pm CLINICAL HISTORY: cva CVA symptomology, neck pain COMPARISON: MRA Neck W/Wo Cont dated 05/30/2018; Carotid Artery Bilateral dated 08/12/2018; Brain W/W o Cont dated 05/30/2018; MRA Head Wo Cont dated 05/30/2018 FINDINGS: Contrast enhance 2D [id number] MR angiography of the neck vessels was performed. Atherosclerotic narrowing is present involving the left carotid bulb. Estimated stenosis is 70% based on NASCET criteria. No significant right internal carotid artery stenosis seen. Both common carotid arteries are widely patent. Codominant antegrade flow seen in both vertebral yelena nakul. IMPRESSION: Atherosclerotic stenosis of the left carotid bulb is seen estimated at 70%.
--- NOTE | 2018-08-12 12:34 | RAD REPORT ---
EXAM DESCRIPTION: USCarotid Artery Bilateral08/12/2018 9:35 am CLINICAL HISTORY: CVA COMPARISON: May 2018 MRA FINDINGS: The velocity of the right internal carotid artery equals 55 cm/sec. The right ICA/CCA rati o 0.9 The velocity of the left internal carotid artery equals 73 cm/sec. The left ICA/CCA ratio 1.1 Severe plaque is present within the left carotid bulb. The velocity of the left internal carotid yelena ry is not elevated. This probably is secondary to technical factors as a high-grade stenosis is seen on the MRA as well as the current ultrasound Mild plaque is present within the remainder of the common carotid and right internal carotid arteries . The vertebral arteries demonstrate antegrade flow IMPRESSION: Severe plaque plaque within the left carotid bulb NASCET criteria used. Mild 0-49% stenosis Moderate 50-69% stenosis Severe 70-99% stenosis
--- NOTE | 2018-08-12 14:14 | RAD REPORT ---
EXAM DESCRIPTION: RAD - Barium Swallow Modified - 08/12/2018 2:07 pm CLINICAL HISTORY: DIFFICULTY SWALLOWING FINDINGS: PHARYNGEAL RESIDUE: VALLECULAR AND PYRIFORM - MILD WITH REGULAR SOLIDS, CLEARED WITH THIN LIQUID WASH 2 SECOND SWALLOW DELAY NO ASPIRATION SEEN. SUPRAGLOTTIC PENETRATION NOT VISUALIZED FLUOROSCOPY TIME 3 MINUTES 1 SECOND. Eighteen fluoroscopic spot series obtained
--- NOTE | 2018-08-12 15:08 | RAD REPORT ---
EXAM DESCRIPTION: MRI - C Spine Wo Cont - 08/12/2018 2:22 pm CLINICAL HISTORY: Left arm radiculopathy. COMPARISON: 2009 MRI. TECHNIQUE: Axial and sagittal magnetic resonance imaging of the cervical spine obtained. FINDINGS: Disc bulge and osteophytes are present at C2-C3 which do not significantly encroach upon t he thecal sac. Mild narrowing the right neural foramina is noted. Postsurgical changes involve the mid and distal cervical spine. Laminectomies have been performed wit h posterior instrumentation. Artifact from the hardware does limit detail somewhat. A small disc bulge is present at C3-C4 with osteophytes. Facet hypertrophy is present. There is moder ate narrowing of the right neural foramina and mild narrowing of the left neural foramina Disc bulge and osteophytes are present at C4-C5 minimally encroaching upon the thecal sac. Mild narro wing neural foramina bilaterally is noted. Disc bulge and osteophytes are present C5-C6. Facet hypertrophy facet hypertrophy is present. There i s moderate narrowing of the neural foramina bilaterally. Facet hypertrophy and osteophytes at C6-C7 result in moderate narrowing left and mild narrowing the r ight neural foramina. C7-T1 demonstrates no significant abnormality. No significant abnormal signal within the spinal cord is noted. Vertebra demonstrate normal signal. IMPRESSION: 1. Postsurgical changes involving the mid and distal cervical spine. 2. Spondylosis resulting in mild to moderate narrowing of the neural foramina of the mid and distal c ervical spine.
--- NOTE | 2018-08-12 17:00 | ECHO ---
HEIGHT: 5 ft 7 in WEIGHT: 170 lb 0 oz DATE OF STUDY: 08/12/[address]: Yvon Forte MD 2-DIMENSIONAL: YES M.MODE: YES DOPPLER: YES COLOR FLOW: YES TDS: PORTABLE: DEFINITY: BUBBLE STUDY: DIAGNOSIS: STROKE CARDIAC HISTORY: CATHERIZATION: NO SURGERY: NO PROSTHETIC VALVE: NO PACEMAKER: NO MEASUREMENTS (cm) DIASTOLIC (NORMALS) SYSTOLIC (NORMALS) IVSd 1.1 (0.6-1.2) LA Diam 3.5 (1.9-4.0) LVEF 69% LVIDd 4.5 (3.5-5.7) LVIDs 2.7 (2.0-3.5) %FS 39% LVPWd 1.2 (0.6-1.2) Ao Diam 3.0 (2.0-3.7) 2 DIMENSIONAL ASSESSMENT: RIGHT ATRIUM: NORMAL LEFT ATRIUM: NORMAL RIGHT VENTRICLE: NORMAL LEFT VENTRICLE: NORMAL TRICUSPID VALVE: NORMAL MITRAL VALVE: NORMAL PULMONIC VALVE: NORMAL AORTIC VALVE: SCLEROSIS PERICARDIAL EFFUSION: NONE AORTIC ROOT: NORMAL LEFT VENTRICULAR WALL MOTION: NORMAL DOPPLER/COLOR FLOW: TRACE MITRAL REGURGITATION. NORMAL RIGHT VENTRICULAR SYSTOLIC PRESSURE. NO AORTIC STENOSIS OR AORTIC REGURGITATION. COMMENTS: NORMAL LEFT VENTRICULAR EJECTION FRACTION. AORTIC SCLEROSIS WITH NO AORTIC STENOSIS OR AORTIC REGURGITATION. TRACE TRICUSPID REGURGITATION. TECHNOLOGIST: CORI MCDONNELL
[2018-08-12] MEDS: CLOPIDOGREL 75 MG TABLET PO SCH (17:23)
[2018-08-12] MEDS: GABAPENTIN 300 MG CAP PO SCH ×2 (17:24→21:00)
[2018-08-12] MEDS: METHYLPREDNISOLONE 40 MG INJ IV SCH (17:27)
[2018-08-12] MEDS ORDERED: ATORVASTATIN 20 MG TAB PO SCH (21:00)
[2018-08-12] MEDS: INSULIN GLARGINE 100 UNITS/ML SQ SCH (21:00)
[2018-08-12] MEDS: PROMOD 30 ML DOSE PO SCH (21:00)
[2018-08-12] MEDS ORDERED: TRAZODONE 50 MG TABLET PO SCH (21:00)
[2018-08-12] MEDS: Oxycodone HCl/Acetaminophen 1 TAB TAB PO PRN (21:26)
[2018-08-12] MEDS: PHENYTOIN ER 100 MG CAP PO SCH (22:00)
[2018-08-12] MEDS: SOTALOL HCL 80 MG TAB PO SCH (22:00)
--- NOTE | 2018-08-12 22:43 | PN ---
Date of Progress Note: 08/12/2018 Subjective: Patient is seen and examined. Chart reviewed and case discussed with RN and Dr. Sy. Family at the bedside. Treatment plan explained. All questions answered. The patient still has facial droop, consistent with Richards's palsy. Medications: List reviewed. Physical Examination: Vital Signs: Temperature 97.1, heart rate 52, blood pressure 153/76, respirations 18, O2 99% on room air. General: Awake, alert, oriented x3. Elderly male, ill-appearing. CV: S1 and S2. Regular rate and rhythm. Peripheral pulses present bilaterally. Respiratory: Moving air well bilaterally. No wheezing or stridor. Gastrointestinal: Abdomen is soft, nontender, nondistended. Positive bowel sounds. Extremities: No clubbing, cyanosis, or edema. Neuro: The patient has facial droop on the right including the forehead. The sounds are louder on the right side. Decreased sensation on the right side as well to light touch. Patient overall has no focal weakness, however does have some stiffness. Reflexes are minimal to absent. Laboratory Data: Sodium 143, potassium 4.2, chloride 110, CO2 25, BUN 15, creatinine 0.89, glucose 122, calcium 8.6. Triglycerides 216, cholesterol 102, LDL 35, HDL 34. WBC 5.7, H and H 11.6 and 32.8, platelets 154. UDS negative. UA negative. Chest x-ray shows no acute intrathoracic process. Carotid artery ultrasound shows severe plaque within the left carotid bulb. MRA of the head shows no significant flow abnormality of [place]. Neck MRA shows atherosclerotic stenosis of the left carotid bulb, estimated at 70%. Cervical spine MRI; postsurgical changes involving the mid and distal cervical spine, spondylosis at C4-C5 and C5-C6 resulting in moderate bilateral foraminal stenosis. Brain MRI; negative for acute CVA or other acute intracranial abnormality, no pathologic postcontrast enhancement suspected. Assessment And Plan: 1. 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 Cerebrovascular accident has been ruled out. Appreciate Dr. Sy's input. We will start on IV steroids. 2. Essential hypertension. We will resume home medications as appropriate. 3. Diabetes mellitus type 2 without long-term use of insulin. We will continue sliding scale insulin and continue Accu-Cheks. 4. Left carotid stenosis. The patient will need outpatient workup and stenting. The patient does have appointment with neurologist in [place]. 5. Stiff person syndrome. We will start trial of Dilantin per Neurology recommendations and baclofen if not improving. Parkinson's has been ruled out in the patient. Plan; continue Plavix, statin, and Lovenox for deep venous thrombosis prophylaxis. Resume home medications as appropriate. We will hold Lyrica for now. The patient is already on gabapentin. We will hold Risperdal. The patient does seem to have some extrapyramidal symptoms. Plan; monitor for signs of clinical improvement. Likely discharge in the next 24-48 hours. /OSEAS Voice ID: [id number] Report ID: [id number] MTDD
--- NOTE | 2018-08-12 23:28 | CON ---
Reason For Consultation: Consultation called because of possible stroke. History Of Present Illness: Mr. Lopez is a 63-year-old patient who is admitted to the hospital afte r and a family member noted more right facial drooping and some mild decrease in orientation. Keily de león was brought in back for hospital on 08/11/2018. Head CT scan was done showing no acute ischemic or hemorrhagic change. Subsequent brain MRI identified no acute ischemic or hemorrhagic stroke. There was mild atrophy. Magnetic resonance angiogram of the head showed no abnormalities to the [place] or intracranial vessels, but neck MRA identified about 70% stenosis on the left internal barragan tid, 50% stenosis on the right. A subsequent MRI of the neck identified postsurgical changes on mult ilevel, from C2 through C6 with no significant cord compression. The patient's noted, this is p rior history, he began having tremors in the lower extremities about 4 years ago and was evaluated an d initially diagnosed as Parkinson disease. He was put on medications for Parkinson disease, but juliet t did not improve his tremors. Subsequently, a PET scan ruled out Parkinson's as it was normal and w as not consistent with idiopathic Parkinson disease. Medications for Parkinson were discontinued. H owever, since that time, the patient has had progressive stiffness in the lower more than upper extre mities and has been unable to ambulate for about 2 years, due to this stiffness where his feet actual ly is dorsiflexed and knees are extended. He also has more stiffness but to a lesser degree in the u pper extremities bilaterally, and in his face with decreased smiling or facial expression. With rega rd to the facial drooping, the patient's thought over the last day or so, actually 2 days, his r ight face seemed to be somewhat some more droopy than the left side. Past Medical History: Irg-lbiwdwo-ufyzowyqs diabetes mellitus, gastroesophageal reflux disease, bianca gn prostatic hypertrophy, hypertension, depression, cervical spondylosis, history of herpes zoster, a sbestosis, left kidney cancer. Surgical History: Extensive decompression of neck, surgery on the femur, bilateral hip replacement, right knee replacement, left kidney removal, and lower back surgery. Family History: Positive for diabetes in mother and brother. Current Medications: 1.Alprazolam 1 mg, 3 times daily. 2.Aripiprazole 10 mg daily. 3.Aspirin 1 tablet daily. 4.Benztropine mesylate 2 mg at bedtime. 5.Stool softener, Colace 1 daily. 6.Prozac 1 daily. 7.Gabapentin 1 tablet 3 times daily. 8.Lopid daily. 9.Indomethacin twice daily. 10.Percocet 10/325 every 4 hours. 11.Lyrica 50 mg 3 times daily. 12.Simvastatin 20 mg at bedtime. 13.Betapace 1 twice daily. 14.Tamsulosin daily. 15.Desyrel 10 mg at bedtime. 16.Risperidone 2 mg at bedtime. 17.Metformin 1000 mg daily. Social History: The patient resides with family, at home. No alcohol, tobacco, or IV drug use. Review of Systems: As indicated, the patient has had diffuse stiffness in the legs more than arms, unable to walk for at least 2 years, had some difficulty with swallowing with loose liquids from the right corner of the out, but has no fevers, chills. No myalgias, arthralgias, headache, weight change, rash. No psychi atric issues. Physical Examination: Vital Signs: Blood pressure 185/84, earlier today was 118/64, pulse ranged 52 to 61, respiratory rat e 15 to 18, temperature 98.0. General: Mr. Lopez is resting in bed. He appears to be in no acute distress. He has some mild droo ling from the right corner of his mouth. HEENT: He is otherwise atraumatic, normocephalic. Sclera are anicteric. Oropharynx is moist. Chest: Shows good air movement. Abdomen: Soft. Extremities: Show markedly increased stiffness with his toes pointed down and ankles plantar flexed. Neurological examination: On cranial nerves, he does have a mild decrease of the right nasolabial fol d and mild decrease in wrinkling of the right forehead, although there is very little movement bilate rally noted in his forehead. He has more movement to the left eyebrow than the right, and he has elisa e eye closure weakness on the right compared to the left side. His tongue and palate appear midline. On motor examination, he has marked increased tone in the upper extremities with some paratonia not ed and cogwheeling in both upper extremities. He does have 4+ strength in the upper extremities bila terally, proximally and distally. In the lower extremities, he has 3+/5 strength proximally and dist ally a 2/5 with markedly increased tone in the lower extremities. Reflexes are depressed despite the patient's increased tone, was unable to elicit at the patellae and in the biceps and triceps. Unabl e to perform coordination exam in the lower extremities due to the marked stiffness as the patient is unable to bend and extend with any degree of ease. His upper extremities, his movements appeared sm ooth, but very slow. Unable to ambulate. Laboratory Studies: He had complete blood count with differential, remarkable for slightly low hemog lobin, hematocrit, platelets are normal. INR is normal at 1.04. Chemistries showed elevated glucose ranging from 122 to 152, otherwise normal calcium. Sodium, potas sium, carbon dioxide, and BUN. Liver function studies are normal. Urinalysis unremarkable. Echocardiogram shows ejection fraction of 69%, essentially unremarkable study except for aortic scler osis with no stenosis and trace regurgitation of the tricuspid. Assessment: Mr. 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 He does have progressive stiffness in the distal to proximal pattern of lower more than upper ex tremity. He has history of cervical cord compression, status post decompression, but his MRI of the cervical spine does not show any active compression. He does not have loss of bowel or bladder contr ol as well. Brain MRI does not show any acute stroke and his carotid artery ultrasound and MRA of th e neck show some stenosis, around 70% to the left, 50% to the right, that does not explain the patien t's symptoms. He does have what appears to be a partial right Richards's palsy as well. Plan: 1.We will try the patient on Dilantin or benzodiazepine for his possible stiff person syndrome. May also use baclofen to try to improve his tone. 2.We may use steroids for his partial Richards's palsy. 3.The patient may benefit from a range of motion exercises to the upper and lower extremities. 4.He may be discharged home with family with home health to perform the range of motion exercises fr om both physical and occupational therapy standpoint. 5.He should have a speech evaluation to determine his ability to swallow safely prior to discharge. He actually did have earlier today a modified barium swallow study, which showed no aspiration. Pen etration was not visualized. However, there was a 2 second swallow delay, but his issues in terms of swallowing were flared with thin liquids. Therefore, he should be able to swallow without significa nt difficulty. Again after discharge, the patient may follow up in Dr. Sy's clinic in a month. NELSY/OSEAS Voice ID: [id number] Report ID: [id number]
[2018-08-13] MEDS: METHYLPREDNISOLONE 40 MG INJ IV SCH ×2 (01:00→09:27)
[2018-08-13] MEDS: NA CHLORIDE 0.9% 1,000 ML IV SCH ×2 (01:05→11:11)
[2018-08-13 06:14] LABS: Magnesium 1.9 mg/dL (1.8-2.4); Potassium 4.4 mmol/L (3.5-5.1)
[2018-08-13] MEDS ORDERED: PANTOPRAZOLE 40MG TABLET PO SCH (06:30)
[2018-08-13] MEDS ORDERED: PREGABALIN 50 MG CAP PO SCH (09:00)
[2018-08-13] MEDS: PROMOD 30 ML DOSE PO SCH (09:00)
[2018-08-13] MEDS ORDERED: RISPERIDONE 1 MG TABLET PO SCH (09:00)
[2018-08-13] MEDS ORDERED: GEMFIBROZIL 600 MG TAB PO SCH (09:00)
[2018-08-13] MEDS ORDERED: TAMSULOSIN 0.4 MG SR CAP PO SCH (09:00)
[2018-08-13] MEDS ORDERED: FLUOXETINE 20 MG CAP PO SCH (09:00)
[2018-08-13] MEDS: SOTALOL HCL 80 MG TAB PO SCH (09:26)
[2018-08-13] MEDS: GABAPENTIN 300 MG CAP PO SCH ×2 (09:26→13:22)
[2018-08-13] MEDS: PHENYTOIN ER 100 MG CAP PO SCH (09:26)
[2018-08-13] MEDS: CLOPIDOGREL 75 MG TABLET PO SCH (09:26)
[2018-08-13] MEDS: INSULIN GLARGINE 100 UNITS/ML SQ SCH (09:27)
[2018-08-13] MEDS: INSULIN -REGULAR HUMAN 50 UNIT/0.5 ML ML SQ SCH ×4 (09:27→12:32)
[2018-08-13] MEDS: ENOXAPARIN 40 MG/0.4 ML SQ SCH (09:28)
[2018-08-13] MEDS: Oxycodone HCl/Acetaminophen 1 TAB TAB PO PRN (11:11)
[2018-08-13 12:33] VITALS: BP 169/72; TEMP 97.7
--- NOTE | 2018-08-14 08:18 | DS ---
Date of Discharge: 08/13/2018 Pulper: Dr. Sy with Neurology. Admitting Diagnoses: 1. Facial hemiparesis. 2. Essential hypertension. 3. Diabetes mellitus type 2 without long-term use of insulin. 4. Left carotid stenosis. Discharge Diagnoses: 1. 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 2. Essential hypertension. 3. Diabetes mellitus type 2 without long-term use of insulin with hyperglycemia. 4. Left carotid stenosis. 5. Non-parkinsonian stiff person syndrome. 6. Oral phase dysphagia. Hospital Course: The patient is a 63-year-old male who was admitted to the hospital after he was noticed to have right-sided facial drooping and decreased mental status. Initial CT scan was negative. MRI did not show any acute ischemic or hemorrhagic stroke, did show some mild atrophy. It should be noted that the patient has been ruled out for Parkinson's previously with extensive neurological workup including PET scan and trial of antiparkinsonian medications. MRA did not show any abnormalities of [place] or intracranial vessels. Neck MRA, however, did identify 70% stenosis on the left internal carotid artery and 50% stenosis on the right. MRI of the neck, cervical spine identified postsurgical changes from C2 through C6, no significant cord compression. The patient was evaluated by Dr. Sy with Neurology and was found to have stiffness in the lower extremities and upper extremities and regarding the facial drooping was thought to be due to Richards's palsy. The patient was started on IV steroids for the Richards's palsy. He showed some improvement regarding the stiff person syndrome, which is non- parkinsonian. The patient was placed on trial of Dilantin 100 mg twice a day, which showed some mild improvement. The patient will need extensive physical therapy, and he will need to follow up with Neurology in [place] as outpatient for stent placement in the left carotid artery. The patient already has an appointment set up. Overall, the patient did well. He was able to tolerate his diet. He did have a modified barium swallow study done and was placed on a modified diet due to some oropharyngeal dysphagia. The patient was then cleared for discharge. He was sent home in a stable condition with home health care. Medications: As per medication reconciliation list. Followup: Follow up with primary care physician in 2 to 3 days. Follow up with neurologist in [place] in 2 weeks. Return to ER for worsening condition. Diet: Diabetic with modified diet. Activity: Fall precautions. Physical Examination: General: Awake, alert, oriented x3, no acute distress. CV: S1, S2. No murmurs. Respiratory: Moving air well bilaterally. No wheezing. Gastrointestinal: Abdomen is soft, nontender, nondistended. Positive bowel sounds. Extremities: No clubbing, cyanosis, edema. Neuro: The patient has right-sided facial droop and stiffness of the lower extremities, worse in the upper extremities. SA/MODYashira Voice ID: [id number] Report ID: [id number] MTDD
== END 2018-08-13 15:31 | disposition home health service (06) ==
LOC: ER 19:01 → ERHOLD 22:26 → 4TH 08-12 00:01
PROVIDERS: ADMIT Internal Medicine; ATTEND Internal Medicine
DX: G51.0 Bell's palsy (principal); I10 Essential (primary) hypertension; E11.65 Type 2 diabetes mellitus with hyperglycemia; I65.22 Occlusion and stenosis of left carotid artery; G81.91 Hemiplegia, unspecified affecting right dominant side; G25.82 Stiff-man syndrome; R13.11 Dysphagia, oral phase; Z96.643 Presence of artificial hip joint, bilateral; Z96.651 Presence of right artificial knee joint; Z79.82 Long term (current) use of aspirin
CPT/HCPCS: 36415 ×2; 70450; 70544; 70549; 70553; 71045 ×2; 72141; 74230; 80048 ×3; 80061; 80076; 80307 ×8; 81015; 82962 ×12; 83735; 84484; 85025 ×2; 85610; 85730; 92611; 93005; 93306; 93880; 97163; 99285; A9577; G0378 ×2; J1650 ×2; J2920 ×3; J7030 ×3

== ENCOUNTER 2018-08-19 07:26 | Emergency (ER) | payer OTHER ==
--- OUTSIDE RECORDS SUMMARY | 2018-08-19 07:29 | XMS REPORT ---
:1955 [facility] Address [address] [place] [address] Dr. Castorena [address] [place] [address] Care Team Providers Name Role Phone Unavailable Unavailable Unavailable Problems This patient has no known problems. Allergies, Adverse Reactions, Alerts This patient has no known allergies or adverse reactions. Medications This patient has no known medications.
--- OUTSIDE RECORDS SUMMARY | 2018-08-19 07:29 | XMS REPORT ---
:1955 Author Organization [employer] Care Team Providers Name Role Phone Roxanne [...] Medications Results No Known Results Summary Purpose [employer] Submission
--- OUTSIDE RECORDS SUMMARY | 2018-08-19 07:29 | XMS REPORT ---
[...] Status Dosage System Date Date Gemfibrozil ND 78185750096 600 MG Orally Apr 20, Active 1 tablet Once a day 2017 Simvastatin ND 13441752871 20 mg Orally Active 1 tablet in Once a day the evening Risperidone ND 13987869116 2 MG Orally Active 1 tablet in Once a day evening Tamsulosin HCl ND 87724733107 0.4 MG Orally December Active 1 capsule Once a day 2018 Lyrica [facility] 91416262754 50 MG Orally Active 1 capsule Twice a day Levemir [facility] 95529992703 100 UNIT/ML Apr 20, Active 20 units FlexTouch Subcutaneous 2017 Twice daily BusPIRone HCl [facility] 42030646510 7.5 MG Orally Apr 20, Active 1 tablet as Twice a day 2017 needed for anxiety Sotalol HCl [facility] 98966184254 80 MG Orally Active 1 tablet every 12 hrs U56-Xroebs [facility] 36679803974 1 MG Orally Active as directed Alprazolam [facility] 41503740059 1 MG Orally Active 1 tablet Twice a day Oxycodone-Aceta [facility] 95921470895 10-325 MG Active 1 tablet as minophen Orally every 6 needed hrs Fluoxetine HCl [facility] 92281948446 40 MG Orally Active 1 capsule Once a day Results No Known Results Summary Purpose [employer] Submission
--- OUTSIDE RECORDS SUMMARY | 2018-08-19 07:29 | XMS REPORT ---
[...] Status Dosage System Date Date Fluoxetine HCl [facility] 30328513544 40 MG Orally Active 1 capsule Once a day BusPIRone HCl ND 14587954222 7.5 MG Orally Apr 20, Active 1 tablet as Twice a day 2018 needed for anxiety Alprazolam ND 64586835024 1 MG Orally Active 1 tablet Twice a day Oxycodone-Aceta ND 68442827957 10-325 MG Active 1 tablet as minophen Orally every 6 needed hrs Simvastatin ND 17144677253 20 mg Orally Active 1 tablet in Once a day the evening Levemir ND 33141246371 100 UNIT/ML Apr 20, Active 20 units FlexTouch Subcutaneous 2017 Twice daily Lyrica ND 08067260078 50 MG Orally Active 1 capsule Twice a day Risperidone ND 89456595292 2 MG Orally Active 1 tablet in Once a day evening I19-Wdbjil [facility] 88139359290 1 MG Orally Active as directed Lancets [facility] 75959562668 - as directed Jul 22, Active as directed Test BS three 2017 (dispense times daily lancets of record) Blood Glucose ND 0 as directed Jul 22, Active as directed Test Strip Test BS three 2017 (DISPENSE times daily BLOOD TEST STRIPS OF RECORD) Gemfibrozil ND 88844760113 600 MG Orally Apr 20, Active 1 tablet Once a day 2017 Sotalol HCl [facility] 16605743683 80 MG Orally Active 1 tablet every 12 hrs Pen Leigh [facility] 25336834532 32G X 5 MM Jul 14, Active (TRUE PLUS subcutaneous 2017 PEN Use with NEEDLES) as Levemir directed FlexTouch BID Tamsulosin HCl [facility] 50406070982 0.4 MG Orally Britta Active 1 capsule Once a day 2018 Results No Known Results Summary Purpose [employer]Clinical[employer] Submission
--- OUTSIDE RECORDS SUMMARY | 2018-08-19 07:29 | XMS REPORT ---
:1955 Author Organization [employer] Care Team Providers Name Role Phone Roxanne [...] Medications Results No Known Results Summary Purpose [employer] Submission
--- OUTSIDE RECORDS SUMMARY | 2018-08-19 07:29 | XMS REPORT | Clinical Summary ---
:1955 Author Organization [facility] Address [address] [place] [address] Care Team Providers Name Role Phone Michael [...] García MD Tremor ( Primary Dx) after 08/18/2017 Social History Tobacco Use Types Packs/Day Years [...] 08/24/2018 Office Visit Neurology Harshal Anthony MD [address] [place], [place] [id number] Regan Carter MD [address] [place], [place] [id number] Health Maintenance Due Date Last Done Comments COLON CANCER SCREENING 2006 SHINGLES VACCINES (1 of 2) 2006 INFLUENZA VACCINE 03/02/2018 Procedures Procedure Name Priority Date/Time Associated Diagnosis Comments NM BRAIN SPECT W I Routine 10/13/2017 2:43 PM Tremor Results for this 123 DATSCAN CDT procedure are in the results section. after 08/18/2017 Results NM Brain Spect W I 123 [...] evidence for an underlying primary Parkinsonian syndrome. [facility]-[id number] Procedure Note Interface, Radiology Results Incoming - [...] evidence for an underlying primary Parkinsonian syndrome. [facility]-[id number] Performing Organization Address City/State/Zipcode Phone Number [facility] [address] [place] [address] after 08/18/2017 Insurance Payer Benefit Plan / Group Subscriber ID Type Phone Address [facility] MEDICARE AARP MEDICARE COMPLETE MCR xxxxxxxxx HMO ([place]) [place] [address] Advance Directives Patient has advance care planning documents on file. For more information, please contact:Carson Valladares[address] [place] [address]
--- OUTSIDE RECORDS SUMMARY | 2018-08-19 07:29 | XMS REPORT ---
[...] Start End Status Dosage System Date Date Risperidone [facility] 53373852291 2 MG Orally Active 1 tablet in Once a day evening Fluoxetine HCl [facility] 81375146102 40 MG Orally Active 1 capsule Once a day Oxycodone-Aceta ND 72406522822 10-325 MG Active 1 tablet as minophen Orally every 6 needed hrs Lyrica ND 93878586601 50 MG Orally Active 1 capsule Twice a day Sotalol HCl ND 02128368049 80 MG Orally Active 1 tablet every 12 hrs Q98-Hrkure [facility] 05903154559 1 MG Orally Active as directed Simvastatin ND 59896890431 20 mg Orally Active 1 tablet in Once a day the evening BusPIRone HCl ND 94141493969 7.5 MG Orally Apr 20, Active 1 tablet as Twice a day 2017 needed for anxiety Gemfibrozil ND 46155371924 600 MG Orally Apr 20, Active 1 tablet Once a day 2017 Tamsulosin HCl ND 67431388410 0.4 MG Orally Britta Active 1 capsule Once a day 2018 Blood Glucose NDC 0 as directed Jul 22, Active as directed Test Strip Test BS three 2017 (DISPENSE times daily BLOOD TEST STRIPS OF RECORD) Lancets ND 63509332077 - as directed Jul 22, Active as directed Test BS three 2017 (dispense times daily lancets of record) Pen [place] [facility] 96207424315 32G X 5 MM Jul 14, Active (TRUE PLUS subcutaneous 2017 PEN Use with NEEDLES) as Levemir directed FlexTouch BID Alprazolam ND 53141041484 1 MG Orally Active 1 tablet Twice a day Levemir ND 51033293859 100 UNIT/ML Apr 20, Active 20 units FlexTouch Subcutaneous 2017 Twice daily MetFORMIN HCl ND 22764657155 500 MG Orally Active 1 tablet ER Twice a day Results No Known Results Summary Purpose [employer] Submission
--- OUTSIDE RECORDS SUMMARY | 2018-08-19 07:29 | XMS REPORT ---
:1955 [facility] Care Team Providers Name Role Phone [...] End Status Dosage System Date Date Gemfibrozil [facility] 84064108264 600 MG Orally Apr 20, Active 1 tablet Once a day 2017 BusPIRone HCl ND 97876018952 7.5 MG Orally Apr 20, Active 1 tablet as Twice a day 2017 needed for anxiety R86-Tvbegm [facility] 20282499285 1 MG Orally Active as directed Levemir [facility] 34831670557 100 UNIT/ML Apr 20 Active 20 units FlexTouch Subcutaneous 2017 Twice daily Lyrica ND 03068529912 50 MG Orally Active 1 capsule Twice a day Fluoxetine HCl ND 20442979815 40 MG Orally Active 1 capsule Once a day Risperidone ND 06994543271 2 MG Orally Active 1 tablet in Once a day evening Pen [place] [facility] 02453866080 32G X 5 MM Jul 14 (TRUE PLUS subcutaneous 2017 PEN Use with NEEDLES) as Levemir directed FlexTouch BID Tamsulosin HCl ND 56336330055 0.4 MG Orally December Active 1 capsule Once a day 2018 Alprazolam [facility] 63106765831 1 MG Orally Active 1 tablet Twice a day Sotalol HCl [facility] 87862121479 80 MG Orally Active 1 tablet every 12 hrs Oxycodone-Aceta [facility] 58531404706 10-325 MG Active 1 tablet as minophen Orally every 6 needed hrs Simvastatin [facility] 94951235070 20 mg Orally Active 1 tablet in Once a day the evening Results No Known Results Summary Purpose [employer] Submission
--- OUTSIDE RECORDS SUMMARY | 2018-08-19 07:29 | XMS REPORT ---
:1955 Author Organization [employer] Care Team Providers Name Role Phone Roxanne [...] Medications Results No Known Results Summary Purpose [facility] Submission
[2018-08-19] MEDS ORDERED: MEPERIDINE HCL 25 MG/0.5 ML ONE (07:57)
--- NOTE | 2018-08-19 08:08 | RAD REPORT ---
EXAM DESCRIPTION: CT - Head Brain Wo Cont - 08/19/2018 7:52 am CLINICAL HISTORY: HEADACHE Drowsiness COMPARISON: Ct Stroke Brain Wo Cont dated 08/11/2018; Head Brain Wo Cont dated 05/27/2018; Brain W/Wo Cont dated 08/12/2018 TECHNIQUE: All CT scans are performed using dose optimization technique as appropriate and may inclu de automated exposure control or mA/KV adjustment according to patient size. FINDINGS: No intracranial hemorrhage, hydrocephalus or extra-axial fluid collection.No areas of brai n edema or evidence of midline shift. The paranasal sinuses and mastoids are clear. The calvarium is intact. IMPRESSION: No acute intracranial abnormality.
[2018-08-19 08:51] LABS: Potassium 3.9 mmol/L (3.5-5.1)
[2018-08-19] MEDS ORDERED: NA CHLORIDE 0.9% 500 ML ONE (10:13)
--- NOTE | 2018-08-19 10:28 | ER ---
Nurse's Notes [facility] Name: David Lopez Age: 63 yrs Sex: Male : 1955 Arrival Date: 08/19/2018 Time: 07:32 Bed 15 Private MD: Diagnosis: Headache Presentation: 08/19 07:34 Presenting complaint: EMS states: He was here 5 days ago and dx with [place] Palsy, since jl7 then his MOSER has gotten worse. Transition of care: patient was not received from another setting of care. Onset of symptoms was August 14, 2018. Risk Assessment: Do you want to hurt yourself or someone else? Patient reports no desire to harm self or others. Initial Sepsis Screen: Does the patient meet any 2 criteria? No. Patient's initial sepsis screen is negative. Does the patient have a suspected source of infection? No. Patient's initial sepsis screen is negative. Care prior to arrival: None. 07:34 Method Of Arrival: EMS: [facility] 07:34 Acuity: LEANNA 3 jl7 Historical: - Allergies: 07:56 No Known Allergies; jl7 - Home Meds: 07:56 alprazolam 1 mg Oral TbDL 1 tab 3 times per day [Active]; fluoxetine 40 mg Oral cap 1 jl7 cap once daily [Active]; gabapentin 600 mg Oral tab 1 tab 3 times per day [Active]; gemfibrozil 600 mg Oral tab daily [Active]; Lyrica 50 mg Oral daily [Active]; omeprazole 20 mg Oral cpDR 1 cap once daily [Active]; oxycodone-acetaminophen 10-650 mg Oral tab every 4 hours [Active]; Risperdal 2 mg Oral tab 1 tab once daily [Active]; simvastatin 20 mg Oral tab 1 tab once daily [Active]; sotalol 80 mg Oral tab 1 tab 2 times per day [Active]; tamsulosin 0.4 mg Oral cp24 1 cap once daily [Active]; trazodone 50 mg Oral tab nightly [Active]; - PMHx: 07:56 CVA; Diabetes - NIDDM; Hypertension; Parkinsons; jl7 - Immunization history:: Adult Immunizations up to date. - Social history:: Smoking status: . - Family history:: not pertinent. - Ebola Screening: : No symptoms or risks identified at this time. - Hospitalizations: : No recent hospitalization is reported. Screenin:40 Abuse screen: Denies threats or abuse. Denies injuries from another. Nutritional jl7 screening: No deficits noted. Tuberculosis screening: No symptoms or risk factors identified. Fall Risk None identified. Gait- Normal/Bed Rest/Wheelchair (0 pts). Assessment: 07:40 General: Appears in no apparent distress. uncomfortable, Behavior is calm, cooperative, jl7 appropriate for age. Pain: Complains of pain in occipital area Pain does not radiate. Pain currently is 8 out of 10 on a pain scale. Pain began 2-3 days ago. Is continuous. Neuro: Level of Consciousness is awake, alert, obeys commands, Oriented to person, place, time, situation. Cardiovascular: Heart tones S1 S2 present Patient's skin is warm and dry. Respiratory: Airway is patent Respiratory effort is even, unlabored, Respiratory pattern is regular, symmetrical. GI: No signs and/or symptoms were reported involving the gastrointestinal system. : No signs and/or symptoms were reported regarding the genitourinary system. EENT: No signs and/or symptoms were reported regarding the EENT system. Derm: Skin is pink, warm \\T\\ dry. Musculoskeletal: No signs and/or symptoms reported regarding the musculoskeletal system. 08:42 Reassessment: Patient appears in no apparent distress at this time. Patient and/or jl7 family updated on plan of care and expected duration. Pain level reassessed. Patient is alert, oriented x 3, equal unlabored respirations, skin warm/dry/pink. pt reports mild decrease in pain, rated 6-7/10 at this time. 10:32 Reassessment: Pt's is on her way to pick pt up. Pt will be discharged once she jl7 arrives. 13:05 Reassessment: Pt's reports "He was supposed to have something done for his neck. jl7 His neck has been hurting for 3 days." informed that the pt only c/o a MOSER. ERD notified and told that the ERD would be in as soon as he is done with another pt. 13:10 Reassessment: Pt's states "We're ready to go." does not want to wait for ERD jl7 at this time. 13:19 Reassessment: Harshal and Asaf, house designer's preparing pt to transport to private vehicle, jl7 ERD at bedside talking with the . Vital Signs: 07:34 BP 139 / 74; Pulse 58; Resp 16 S; Temp 97.2(O); Pulse Ox 97% on R/A; jl7 09:30 BP 132 / 75; Pulse 60; Resp 16; Pulse Ox 98% on R/A; jl7 11:30 BP 135 / 75; Pulse 61; Resp 16 S; Pulse Ox 97% on R/A; jl7 13:00 BP 134 / 74; Pulse 62; Resp 16 S; Pulse Ox 97% on R/A; jl7 Bridger Coma Score: 10:06 Eye Response: spontaneous(4). Verbal Response: oriented(5). Motor Response: obeys rn commands(6). Total: 15. ED Course: 07:32 Patient arrived in ED. ss 07:32 Scooter Hill MD is Attending Physician. rn 07:34 Argelia Abreu RN is Primary Nurse. jl7 07:34 Arm band placed on right wrist. jl7 07:36 Triage completed. jl7 07:[address] vm2 07:40 Patient has correct armband on for positive identification. Placed in gown. Bed in low jl7 position. Call light in reach. Side rails up X2. shelter monitor on. Pulse ox on. NIBP on. Warm blanket given. 07:51 CT completed. Patient tolerated procedure well. Patient moved back from CT. sj 07:53 CT Head Brain wo Cont In Process Unspecified. EDMS 08:13 Initial lab(s) drawn, by me, sent to lab. Inserted saline lock: 22 gauge in right jl7 antecubital area, using aseptic technique. Blood collected. 13:23 No provider procedures requiring assistance completed. IV discontinued, intact, jl7 bleeding controlled, No redness/swelling at site. Pressure dressing applied. Administered Medications: 08:13 Drug: Demerol 25 mg Route: IVP; Site: right antecubital; jl7 08:43 Follow up: Response: No adverse reaction; Pain is decreased jl7 10:20 Drug: NS 0.9% 500 ml Route: IV; Rate: bolus; Site: right antecubital; jl7 11:00 Follow up: Response: No adverse reaction; IV Status: Completed infusion jl7 Outcome: 10:07 Discharge ordered by . rn 13:23 Discharged to home ambulatory. jl7 13:23 Condition: stable 13:23 Discharge instructions given to patient, family, Instructed on discharge instructions, follow up and referral plans. Demonstrated understanding of instructions, follow-up care. 13:23 Patient left the ED. jl7 Signatures: Dispatcher [employer] Mica Gorman Roman, MD MD rn Smirch, Shelby, RN RN ss Leal, Jahala, RN RN jl7 Rianna Abdul [facility]
--- NOTE | 2018-08-19 10:28 | EDPHYS ---
Physician Documentation [facility] Name: David Lopez Age: 63 yrs Sex: Male : 1955 Arrival Date: 08/19/2018 Time: 07:32 Bed 15 Private MD: ED Physician Scooter Hill HPI: 08/19 07:45 This 63 yrs old Male presents to ER via EMS with complaints of Headache > rn 24hrs Old. 07:45 The patient complains of pain to the back of head. The patient describes the headache rn as aching. Onset: The symptoms/episode began/occurred 1 week(s) ago. Associated signs and symptoms: Pertinent positives: This patient does not have any pertinent positive signs or symptoms associated with a headache. Pertinent negatives: altered mental status, dizziness, fever, neck stiffness, paresthesias, Photophobia rash, vision changes, vision loss, vomiting. Severity of symptoms: At its worst the pain was moderate, in the emergency department the pain has improved. The patient has not experienced similar symptoms in the past. The patient has been recently seen by a physician:. Reports seen here approx 1 week ago, told had bells palsy, reports since then having increased headaches, back of head, no vomiting, no head trauma, no neck pain, no new focal neurological deficits, + hx of stroke and parkinsons. . Historical: - Allergies: 07:56 No Known Allergies; jl7 - Home Meds: 07:56 alprazolam 1 mg Oral TbDL 1 tab 3 times per day [Active]; fluoxetine 40 mg Oral cap 1 jl7 cap once daily [Active]; gabapentin 600 mg Oral tab 1 tab 3 times per day [Active]; gemfibrozil 600 mg Oral tab daily [Active]; Lyrica 50 mg Oral daily [Active]; omeprazole 20 mg Oral cpDR 1 cap once daily [Active]; oxycodone-acetaminophen 10-650 mg Oral tab every 4 hours [Active]; Risperdal 2 mg Oral tab 1 tab once daily [Active]; simvastatin 20 mg Oral tab 1 tab once daily [Active]; sotalol 80 mg Oral tab 1 tab 2 times per day [Active]; tamsulosin 0.4 mg Oral cp24 1 cap once daily [Active]; trazodone 50 mg Oral tab nightly [Active]; - PMHx: 07:56 CVA; Diabetes - NIDDM; Hypertension; Parkinsons; jl7 - Immunization history:: Adult Immunizations up to date. - Social history:: Smoking status: . - Family history:: not pertinent. - Ebola Screening: : No symptoms or risks identified at this time. - Hospitalizations: : No recent hospitalization is reported. ROS: 07:45 Constitutional: Negative for fever, chills, and weight loss, Eyes: Negative for injury, rn pain, redness, and discharge, Neck: Negative for injury, pain, and swelling, Cardiovascular: Negative for chest pain, palpitations, and edema, Respiratory: Negative for shortness of breath, cough, wheezing, and pleuritic chest pain, Abdomen/GI: Negative for abdominal pain, nausea, vomiting, diarrhea, and constipation, MS/Extremity: Negative for injury and deformity, Skin: Negative for injury, rash, and discoloration, Neuro: Negative for weakness, numbness, tingling, and seizure. Exam: 07:45 Constitutional: This is a well developed, well nourished patient who is awake, alert, rn and in no acute distress. Head/Face: Normocephalic, atraumatic. Eyes: Pupils equal round and reactive to light, extra-ocular motions intact. Lids and lashes normal. Conjunctiva and sclera are non-icteric and not injected. Cornea within normal limits. Periorbital areas with no swelling, redness, or edema. Neck: Trachea midline, no thyromegaly or masses palpated, and no cervical lymphadenopathy. Supple, full range of motion without nuchal rigidity, or vertebral point tenderness. No Meningismus. Cardiovascular: Bradycardic, regular, no murmur Respiratory: Lungs have equal breath sounds bilaterally, clear to auscultation. No increased work of breathing, no retractions or nasal flaring. Abdomen/GI: soft, non-tender Skin: Warm, dry with normal turgor. Normal color with no rashes, no lesions, and no evidence of cellulitis. Neuro: Awake and alert, GCS 15, oriented to person, place, time, and situation. Cranial nerves II-XII grossly intact. Motor strength 4/5 bilateral upper ext and 3/5 strength, sensation intact, + coarse extremity tremor. Vital Signs: 07:34 BP 139 / 74; Pulse 58; Resp 16 S; Temp 97.2(O); Pulse Ox 97% on R/A; jl7 09:30 BP 132 / 75; Pulse 60; Resp 16; Pulse Ox 98% on R/A; jl7 11:30 BP 135 / 75; Pulse 61; Resp 16 S; Pulse Ox 97% on R/A; jl7 13:00 BP 134 / 74; Pulse 62; Resp 16 S; Pulse Ox 97% on R/A; jl7 Maite Coma Score: 10:06 Eye Response: spontaneous(4). Verbal Response: oriented(5). Motor Response: obeys rn commands(6). Total: 15. MDM: 07:32 Patient medically screened. rn 10:06 Differential diagnosis: hypertensive headache, migraine, tension headache, vasomotor rn headache. Data reviewed: vital signs, nurses notes, lab test result(s), radiologic studies, CT scan, and as a result, I will discharge patient. Counseling: I had a detailed discussion with the patient and/or guardian regarding: the historical points, exam findings, and any diagnostic results supporting the discharge/admit diagnosis, lab results, radiology results, the need for outpatient follow up, to return to the emergency department if symptoms worsen or persist or if there are any questions or concerns that arise at home. Response to treatment: the patient's symptoms have markedly improved after treatment, the patient's condition has returned to base line, the patient is now symptom free, patient is well hydrated. and as a result, I will discharge patient. Special discussion: I discussed with the patient/guardian in detail that at this point there is no indication for admission to the hospital. It is understood, however, that if the symptoms persist or worsen the patient needs to return immediately for re-evaluation. 08/19 07:32 Order name: CBC with Diff rn 08/19 07:32 Order name: Basic Metabolic Panel; Complete Time: 09:22 rn 08/19 07:32 Order name: Protime (+inr); Complete Time: 08:49 rn 08/19 07:32 Order name: Ptt, Activated; Complete Time: 08:49 rn 08/19 07:32 Order name: CT Head Brain wo Cont; Complete Time: 08:12 rn 08/19 07:32 Order name: IV Start; Complete Time: 08:38 rn Administered Medications: 08:13 Drug: Demerol 25 mg Route: IVP; Site: right antecubital; jl7 08:43 Follow up: Response: No adverse reaction; Pain is decreased jl7 10:20 Drug: NS 0.9% 500 ml Route: IV; Rate: bolus; Site: right antecubital; jl7 11:00 Follow up: Response: No adverse reaction; IV Status: Completed infusion jl7 Disposition: 08/19/18 10:07 Discharged to Home. Impression: Headache. - Condition is Stable. - Discharge Instructions: General Headache Without Cause, Migraine Headache, Hypertension. - Prescriptions for Medrol ([place]) 4 mg Oral Tablets, Dose Pack - take 1 tablet by ORAL route as directed - follow package instructions; 1 packet. - Medication Reconciliation Form, Thank You Letter, Antibiotic Education, Prescription Opioid Use form. - Follow up: Private Physician; When: As needed; Reason: Recheck today's complaints, Re-evaluation by your physician. - Problem is new. - Symptoms have improved. Signatures: Dispatcher [employer] EDMS Scooter Hill MD MD rn Leal, Jahala, RN RN jl7 Corrections: (The following items were deleted from the chart) 13:23 10:07 08/19/2018 10:07 Discharged to Home. Impression: Headache. Condition is Stable. jl7 Forms are Medication Reconciliation Form, Thank You Letter, Antibiotic Education, Prescription Opioid Use. Follow up: Private Physician; When: As needed; Reason: Recheck today's complaints, Re-evaluation by your physician. Problem is new. Symptoms have improved. rn
[2018-08-19 13:35] VITALS: TEMP 97.2
[2018-08-19 13:38] VITALS: O2SAT 97
[2018-08-19 13:39] VITALS: BP 134/74
== END 2018-08-19 13:23 | disposition home or self-care (01) ==
LOC: ER 07:26
DX: R51 Headache (principal); I10 Essential (primary) hypertension; E11.9 Type 2 diabetes mellitus without complications; G20 Parkinson's disease
CPT/HCPCS: 36415; 70450; 80048; 85025; 85610; 85730; J2175

== ENCOUNTER 2018-09-17 15:03 | Emergency (ER) | payer OTHER ==
--- OUTSIDE RECORDS SUMMARY | 2018-09-17 15:05 | XMS REPORT ---
:1955 [facility] Address [address] [place] [address] Dr. Castorena [address] [place] [id number] Care Team Providers Name Role Phone Unavailable Unavailable Unavailable Problems This patient has no known problems. Allergies, Adverse Reactions, Alerts This patient has no known allergies or adverse reactions. Medications This patient has no known medications.
--- OUTSIDE RECORDS SUMMARY | 2018-09-17 15:05 | XMS REPORT ---
[...] Status Dosage System Date Date Gemfibrozil ND 72446355441 600 MG Orally Apr 20, Active 1 tablet Once a day 2017 Simvastatin ND 89958836167 20 mg Orally Active 1 tablet in Once a day the evening Risperidone ND 60750009213 2 MG Orally Active 1 tablet in Once a day evening Tamsulosin HCl ND 05514612134 0.4 MG Orally December Active 1 capsule Once a day 2018 Lyrica [facility] 30334504869 50 MG Orally Active 1 capsule Twice a day Levemir [facility] 85918699258 100 UNIT/ML Apr 20, Active 20 units FlexTouch Subcutaneous 2017 Twice daily BusPIRone HCl [facility] 81586672732 7.5 MG Orally Apr 20, Active 1 tablet as Twice a day 2017 needed for anxiety Sotalol HCl [facility] 56219532094 80 MG Orally Active 1 tablet every 12 hrs P48-Uebcty [facility] 98406328207 1 MG Orally Active as directed Alprazolam [facility] 29987875773 1 MG Orally Active 1 tablet Twice a day Oxycodone-Aceta [facility] 90106662409 10-325 MG Active 1 tablet as minophen Orally every 6 needed hrs Fluoxetine HCl [facility] 73638828120 40 MG Orally Active 1 capsule Once a day Results No Known Results Summary Purpose [employer] Submission
--- OUTSIDE RECORDS SUMMARY | 2018-09-17 15:05 | XMS REPORT | Clinical Summary ---
:1955 Author Organization [facility] Address [address] [place] [address] Care Team Providers Name Role Phone Michael Castaneda MD Primary Care Provider Unavailable Allergies No Known Allergies Medications Medication Sig Dispensed Refills Start Date End Date Status insulin lispro Inject under 0 Active (HumaLOG) 100 the skin 2 unit/mL injection (two) times a day before meals. (PER SLIDING SCALE) ARIPiprazole Take 10 mg by 0 Active (ABILIFY) 10 MG mouth every tablet morning. FLUoxetine (PROzac) Take 20 mg by 0 Active 20 MG capsule mouth 2 (two) times a day. gabapentin Take 600 mg 0 Active (NEURONTIN) 600 mg by mouth 3 tablet (three) times a day. insulin detemir Inject 20 0 Active (LEVEMIR) 100 Units under unit/mL injection the skin 2 (two) times a day. tamsulosin (FLOMAX) Take 0.4 mg 0 Active 0.4 mg by mouth capsule,extended every release 24hr morning. traZODone (DESYREL) Take 50 mg by 0 Active 50 MG tablet mouth nightly as needed for sleep. venlafaxine XR Take 37.5 mg 0 Active (EFFEXOR-XR) 37.5 MG by mouth 24 hr capsule daily. metFORMIN Take 500 mg 0 Active (GLUCOPHAGE) 500 mg by mouth 3 tablet (three) times a day. cyanocobalamin 1000 Take 1,000 0 Active MCG tablet mcg by mouth every morning. ascorbic acid, Take 1,000 mg 0 Active vitamin C, (vitamin by mouth C) 1000 MG tablet daily. hydrOXYzine Take 25 mg by 0 Active (VISTARIL) 25 MG mouth 3 capsule (three) times a day as needed for itching. clopidogrel (PLAVIX) Take 75 mg by 0 Active 75 mg tablet mouth daily. phenytoin (DILANTIN) Take by 0 Active 100 MG ER capsule mouth. gemfibrozil (LOPID) Take 600 mg 0 Active 600 MG tablet by mouth 2 (two) times a day before meals. predniSONE Take 40 mg by 0 Active (DELTASONE) 20 mg mouth daily. tablet atorvastatin Take 80 mg by 0 Active (LIPITOR) 80 MG mouth daily. tablet aspirin (ECOTRIN) 81 Take 81 mg by 0 Active MG enteric coated mouth daily. tablet docusate sodium Take by 0 Active (STOOL SOFTENER mouth. ORAL) esomeprazole Take 40 mg by 0 08/24/2018 Discontinued (NexIUM) 40 MG mouth every capsule morning. cholecalciferol, Take 1,000 0 08/24/2018 Discontinued vitamin D3, (VITAMIN Units by D3) 1,000 unit mouth daily. 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 Last Filed Vital Signs Vital Sign Reading Time Taken Blood Pressure 142/75 08/24/2018 9:38 AM [employer] Pulse 73 08/24/2018 9:38 AM [employer] Temperature - - Respiratory Rate - - Oxygen Saturation - - Inhaled Oxygen Concentration - - Weight - - Height 162.6 cm (5' 4") 08/24/2018 9:38 AM [employer] Body Mass Index - - Plan of Treatment Date Type Specialty Care Team Description 09/21/2018 Office Visit Neurology Regan Carter MD [address] [facility] [address] [place] [address] Health Maintenance Due Date Last Done Comments COLON CANCER SCREENING 2006 SHINGLES VACCINES (1 of 2) 2006 INFLUENZA VACCINE 03/02/2018 Procedures Procedure Name Priority Date/Time Associated Diagnosis Comments NM BRAIN SPECT W I Routine 10/13/2017 2:43 PM Tremor Results for this 123 DATSCAN CDT procedure are in the results section. after 09/16/2017 Results NM Brain Spect W I 123 Datscan (10/13/2017 2:43 PM CDT) Narrative Performed At PROCEDURE:[facility] I [facility] INDICATION:Tremor. TECHNIQUE: The patient was pretreated with potassium iodide drops for thyroid protection and then injected with 4 mCi of I-123 DaTscan IV. Brain SPECT imaging was then performed. FINDINGS:Striatal uptake appears normal, bilaterally. IMPRESSION: 1.Normal study.No evidence for an underlying primary Parkinsonian syndrome. [facility]-[id number] Procedure Note Interface, Radiology Results Incoming - [...] evidence for an underlying primary Parkinsonian syndrome. [facility]-[id number] Performing Organization Address City/State/Zipcode Phone Number [facility] [address] [place] [address] after 09/16/2017 Insurance Payer Benefit Plan / Group Subscriber ID Type Phone Address UHC MEDICARE AARP MEDICARE COMPLETE [facility] xxxxxxxxx O Advance Directives Patient has advance care planning documents on file. For more information, please contact:Carson Valladares[address] [place] [address]
--- OUTSIDE RECORDS SUMMARY | 2018-09-17 15:06 | XMS REPORT ---
:1955 Author Organization [facility] [employer] [employer] Care Team Providers Name Role Phone Roxanne [...] Medications Results No Known Results Summary Purpose [employer] Submission
--- OUTSIDE RECORDS SUMMARY | 2018-09-17 15:06 | XMS REPORT ---
:1955 Author Organization [employer] Care Team Providers Name Role Phone Roxanne [...] Medications Results No Known Results Summary Purpose [employer] Submission
--- OUTSIDE RECORDS SUMMARY | 2018-09-17 15:06 | XMS REPORT ---
[...] Status Dosage System Date Date Fluoxetine HCl [facility] 65907167563 40 MG Orally Active 1 capsule Once a day BusPIRone HCl ND 54792885377 7.5 MG Orally Apr 20, Active 1 tablet as Twice a day 2018 needed for anxiety Alprazolam ND 00788391293 1 MG Orally Active 1 tablet Twice a day Oxycodone-Aceta ND 45743428989 10-325 MG Active 1 tablet as minophen Orally every 6 needed hrs Simvastatin ND 84744127388 20 mg Orally Active 1 tablet in Once a day the evening Levemir ND 57803477820 100 UNIT/ML Apr 20, Active 20 units FlexTouch Subcutaneous 2017 Twice daily Lyrica ND 57058500460 50 MG Orally Active 1 capsule Twice a day Risperidone ND 61394566454 2 MG Orally Active 1 tablet in Once a day evening Q07-Fdzcqn [facility] 24360015827 1 MG Orally Active as directed Lancets [facility] 66762464636 - as directed Jul 22, Active as directed Test BS three 2017 (dispense times daily lancets of record) Blood Glucose ND 0 as directed Jul 22, Active as directed Test Strip Test BS three 2017 (DISPENSE times daily BLOOD TEST STRIPS OF RECORD) Gemfibrozil ND 82329696087 600 MG Orally Apr 20, Active 1 tablet Once a day 2017 Sotalol HCl [facility] 16909704664 80 MG Orally Active 1 tablet every 12 hrs Pen Stitzer [facility] 18657165888 32G X 5 MM Jul 14, Active (TRUE PLUS subcutaneous 2017 PEN Use with NEEDLES) as Levemir directed FlexTouch BID Tamsulosin HCl [facility] 90431653034 0.4 MG Orally Britta Active 1 capsule Once a day 2018 Results No Known Results Summary Purpose [employer] Submission
--- OUTSIDE RECORDS SUMMARY | 2018-09-17 15:06 | XMS REPORT ---
[...] End Status Dosage System Date Date Risperidone [facility] 93112567026 2 MG Orally Active 1 tablet in Once a day evening Fluoxetine HCl [facility] 04088530423 40 MG Orally Active 1 capsule Once a day Oxycodone-Aceta ND 64166549356 10-325 MG Active 1 tablet as minophen Orally every 6 needed hrs Lyrica ND 75780366117 50 MG Orally Active 1 capsule Twice a day Sotalol HCl ND 51674222456 80 MG Orally Active 1 tablet every 12 hrs L77-Vqcbyn [facility] 91757044181 1 MG Orally Active as directed Simvastatin ND 64235952397 20 mg Orally Active 1 tablet in Once a day the evening BusPIRone HCl ND 08151589500 7.5 MG Orally Apr 20, Active 1 tablet as Twice a day 2017 needed for anxiety Gemfibrozil ND 25669615735 600 MG Orally Apr 20, Active 1 tablet Once a day 2017 Tamsulosin HCl ND 05904811449 0.4 MG Orally Britta Active 1 capsule Once a day 2018 Blood Glucose NDC 0 as directed Jul 22, Active as directed Test Strip Test BS three 2017 (DISPENSE times daily BLOOD TEST STRIPS OF RECORD) Lancets ND 13739213399 - as directed Jul 22, Active as directed Test BS three 2017 (dispense times daily lancets of record) Pen [place] [facility] 38492693800 32G X 5 MM Jul 14, Active (TRUE PLUS subcutaneous 2017 PEN Use with NEEDLES) as Levemir directed FlexTouch BID Alprazolam ND 25153624006 1 MG Orally Active 1 tablet Twice a day Levemir ND 56024577491 100 UNIT/ML Apr 20, Active 20 units FlexTouch Subcutaneous 2017 Twice daily MetFORMIN HCl ND 66653378023 500 MG Orally Active 1 tablet ER Twice a day Results No Known Results Summary Purpose [employer] Submission
--- OUTSIDE RECORDS SUMMARY | 2018-09-17 15:06 | XMS REPORT ---
:1955 Author Organization [employer] Care Team Providers Name Role Phone Roxanne [...] Medications Results No Known Results Summary Purpose [employer] Submission
--- OUTSIDE RECORDS SUMMARY | 2018-09-17 15:06 | XMS REPORT ---
:1955 [facility] Care Team Providers Name Role Phone [...] End Status Dosage System Date Date Gemfibrozil [facility] 22293201488 600 MG Orally Apr 20, Active 1 tablet Once a day 2017 BusPIRone HCl ND 22174463187 7.5 MG Orally Apr 20, Active 1 tablet as Twice a day 2017 needed for anxiety C82-Ewkalh [facility] 75372960139 1 MG Orally Active as directed Levemir [facility] 88116602095 100 UNIT/ML Apr 20 Active 20 units FlexTouch Subcutaneous 2017 Twice daily Lyrica ND 55645469945 50 MG Orally Active 1 capsule Twice a day Fluoxetine HCl ND 47714838692 40 MG Orally Active 1 capsule Once a day Risperidone ND 95873344805 2 MG Orally Active 1 tablet in Once a day evening Pen [place] [facility] 54626227306 32G X 5 MM Jul 14 (TRUE PLUS subcutaneous 2017 PEN Use with NEEDLES) as Levemir directed FlexTouch BID Tamsulosin HCl ND 80124914035 0.4 MG Orally December Active 1 capsule Once a day 2018 Alprazolam [facility] 37520557663 1 MG Orally Active 1 tablet Twice a day Sotalol HCl [facility] 99004032593 80 MG Orally Active 1 tablet every 12 hrs Oxycodone-Aceta [facility] 01645457213 10-325 MG Active 1 tablet as minophen Orally every 6 needed hrs Simvastatin [facility] 86999562778 20 mg Orally Active 1 tablet in Once a day the evening Results No Known Results Summary Purpose [employer]Works Submission
--- OUTSIDE RECORDS SUMMARY | 2018-09-17 15:06 | XMS REPORT ---
:1955 Author Organization [employer] Care Team Providers Name Role Phone Roxanne [...] Medications Results No Known Results Summary Purpose [employer] Submission
[2018-09-17] MEDS ORDERED: METRONIDAZOLE 500mg IVPB 500 MG/100 ML BAG IV ONE (15:45)
[2018-09-17] MEDS ORDERED: KETOROLAC 30 MG/ML INJ ONE (15:57)
[2018-09-17] MEDS ORDERED: NA CHLORIDE 0.9% 1,000 ML ONE (15:58)
[2018-09-17] MEDS ORDERED: ONDANSETRON 4 MG/2 ML VIAL ONE (15:58)
[2018-09-17 16:03] LABS: Absolute Lymphocytes (CBC) 1.8 K/uL (0.7-4.9); Absolute Monocytes 0.4 K/uL (0.1-1.3); Absolute Neutrophil 3.1 K/uL (1.8-8.0); Basophils % 1.2 % (0-1.3); Eosinophils % 4.6 % (0-4.4); Hematocrit 37.3 % (39.6-49.0); Lymphocytes % 32.4 % (15.3-44.8); MPV 8.5 fL (7.6-11.3); Monocytes % 7.1 % (3.3-12.3); RBC Red Blood Cell Count 3.98 M/uL (4.33-5.43)
[2018-09-17 16:19] LABS: ALT/SGPT 30 U/L (12-78); AST/SGOT 34 U/L (15-37); Albumin 3.3 g/dL (3.4-5.0); Alkaline Phosphatase 154 U/L (45-117); BUN Blood Urea Nitrogen 9 mg/dL (7-18); Bicarbonate 25 mmol/L (21-32); Bilirubin Direct < 0.1 mg/dL (0-0.2); Bilirubin Total 0.2 mg/dL (0.2-1.0); Glucose Level 157 mg/dL (74-106); Lipase 121 U/L (73-393); Potassium 4.4 mmol/L (3.5-5.1); Protein, Total 7.5 g/dL (6.4-8.2); Sodium Level 143 mmol/L (136-145)
--- NOTE | 2018-09-17 17:13 | RAD REPORT ---
EXAM DESCRIPTION: CTAbdomen Pelvis W Contrast - 09/17/2018 5:03 pm CLINICAL HISTORY: Abdominal pain. upper abdomen and back pain COMPARISON: No comparisons TECHNIQUE: Biphasic CT imaging of the abdomen and pelvis was performed with 100 ml non-ionic IV cont rast. All CT scans are performed using dose optimization technique as appropriate and may include automated exposure control or mA/KV adjustment according to patient size. FINDINGS: The lung bases are clear. The liver, spleen, pancreas, right adrenal gland and right kidney are within normal limits. 14 mm nod ule is present left adrenal gland. Left kidney appears absent. No bowel obstruction, free air, free fluid or abscess. The appendix is normal. No evidence of signi ficant lymphadenopathy. Bilateral hip arthroplasties noted. IMPRESSION: No acute intra-abdominal or pelvic finding.
[2018-09-17] MEDS ORDERED: FENTANYL CITR 100 MCG/2 ML ONE (17:56)
[2018-09-17 18:16] LABS: Urine Blood NEGATIVE (NEG); Urine Glucose NEGATIVE (NEG); Urine Protein TRACE (NEG); Urine pH 6.5 (5.0-7.0)
[2018-09-17 18:20] LABS: Urine Bacteria NONE SEEN /HPF (NONE SEEN); Urine RBC <5 /HPF (NONE SEEN)
[2018-09-17 18:21] LABS: Urine Culture Reflex Order NOT NEEDED; Urine Mucus 1+ /HPF (NONE SEEN)
--- NOTE | 2018-09-17 18:32 | EDPHYS ---
Physician Documentation [facility] Name: David Lopez Age: 63 yrs Sex: Male : 1955 Arrival Date: 09/17/2018 Time: 15:06 Bed 30 Private MD: ED Physician David Parker HPI: 09/17 15:45 This 63 yrs old Male presents to ER via EMS with complaints of epigastric and cp mid back pain. 15:45 The patient presents with abdominal pain in the epigastric area, in the upper abdomen. cp 15:45 Onset: The symptoms/episode began/occurred 1 week(s) ago. Associated signs and cp symptoms: Pertinent positives: mid back pain, Pertinent negatives: blood in stools, chest pain, constipation, fever, palpitations, shortness of breath, testicular pain. The symptoms are described as waxing/waning. Severity of pain: in the emergency department the pain is unchanged. Historical: - Allergies: 15:15 No Known Allergies; mg2 - Home Meds: 15:15 alprazolam 1 mg Oral TbDL 1 tab 3 times per day [Active]; fluoxetine 40 mg Oral cap 1 mg2 cap once daily [Active]; gabapentin 600 mg Oral tab 1 tab 3 times per day [Active]; gemfibrozil 600 mg Oral tab daily [Active]; Lyrica 50 mg Oral daily [Active]; omeprazole 20 mg Oral cpDR 1 cap once daily [Active]; oxycodone-acetaminophen 10-650 mg Oral tab every 4 hours [Active]; Risperdal 2 mg Oral tab 1 tab once daily [Active]; simvastatin 20 mg Oral tab 1 tab once daily [Active]; sotalol 80 mg Oral tab 1 tab 2 times per day [Active]; tamsulosin 0.4 mg Oral cp24 1 cap once daily [Active]; trazodone 50 mg Oral tab nightly [Active]; - PMHx: 15:15 CVA; Diabetes - NIDDM; Hypertension; Parkinsons; mg2 - PSHx: 15:15 Knee surgery; hip replacement; elbow surgery; back surgery; mg2 - Immunization history:: Flu vaccine is not up to date. - Social history:: Smoking status: Patient/guardian denies using tobacco, Patient/guardian denies using alcohol, street drugs, IV drugs. - Ebola Screening: : No symptoms or risks identified at this time. ROS: 15:50 Constitutional: Negative for body aches, chills, fever, poor PO intake. cp 15:50 Eyes: Negative for injury, pain, redness, and discharge. cp 15:50 Cardiovascular: Negative for chest pain, edema, palpitations. cp 15:50 ENT: Negative for drainage from ear(s), ear pain, difficulty swallowing, difficulty cp handling secretions. 15:50 Neck: Negative for pain with movement, pain at rest, stiffness. 15:50 Respiratory: Negative for cough, shortness of breath, wheezing. 15:50 Abdomen/GI: Positive for abdominal pain, Negative for vomiting, diarrhea, constipation, black/tarry stool, rectal bleeding. 15:50 Back: Positive for pain at rest, pain with movement, of the mid back area. 15:50 : Negative for urinary symptoms, testicular pain 15:50 Skin: Negative for cellulitis, rash. 15:50 Neuro: Negative for altered mental status. 15:50 All other systems are negative. Exam: 16:00 Constitutional: The patient appears in no acute distress, alert, awake, cp non-diaphoretic, non-toxic, well developed, well nourished. 16:00 Head/face: Exam is negative for acute changes. cp 16:00 Eyes: Periorbital structures: appear normal, Conjunctiva: normal, no exudate, no injection, Sclera: no appreciated abnormality, Lids and lashes: appear normal, bilaterally. 16:00 ENT: External ear(s): are unremarkable, Nose: is normal, Mouth: Lips: moist, Oral mucosa: pink and intact, moist, Posterior pharynx: is normal, airway is patent, no erythema, no exudate. 16:00 Chest/axilla: Inspection: normal, Palpation: is normal, no crepitus, no tenderness. 16:00 Cardiovascular: Rate: normal, Rhythm: regular, Edema: is not appreciated. 16:00 Respiratory: the patient does not display signs of respiratory distress, Respirations: normal, no use of accessory muscles, no retractions, no splinting, no tachypnea, labored breathing, is not present, Breath sounds: are clear throughout, no decreased breath sounds, no stridor, no wheezing. 16:00 Abdomen/GI: Inspection: abdomen appears normal, Bowel sounds: active, all quadrants, Palpation: soft, in all quadrants, moderate abdominal tenderness, in the epigastric area and right upper quadrant, rebound tenderness, is not appreciated, involuntary guarding, is not appreciated. 16:00 Back: pain, that is moderate, of the right mid back. 16:00 Skin: cellulitis, is not appreciated, no rash present. 16:00 Neuro: Orientation: to person, place \T\ time. Mentation: is normal. Vital Signs: 15:11 BP 154 / 81; Pulse 83; Resp 18; Temp 97.9(TE); Pulse Ox 98% on R/A; Weight 77.11 kg; mg2 Height 5 ft. 3 in. (160.02 cm); Pain 3/10; 16:14 BP 137 / 71; Pulse 80; Resp 18; Pulse Ox 100% on R/A; mg2 17:28 BP 144 / 71; Pulse 75; Resp 18; Pulse Ox 98% on R/A; tl3 18:17 BP 152 / 78; Pulse 70; Resp 18; Pulse Ox 98% on R/A; mg2 18:49 BP 138 / 80; Pulse 80; Resp 18; Pulse Ox 100% on R/A; Pain 0/10; mg2 15:11 Body Mass Index 30.11 (77.11 kg, 160.02 cm) mg2 MDM: 15:13 Patient medically screened. cp 16:00 Differential diagnosis: bowel obstruction, cholecystitis, Cholelithiasis, cp diverticulitis, gastritis, pancreatitis, Ureterolithiasis, urinary tract infection. 18:30 Data reviewed: vital signs, nurses notes, lab test result(s), radiologic studies, CT cp scan. 18:30 Counseling: I had a detailed discussion with the patient and/or guardian regarding: the cp historical points, exam findings, and any diagnostic results supporting the discharge/admit diagnosis, lab results, radiology results, to return to the emergency department if symptoms worsen or persist or if there are any questions or concerns that arise at home. Response to treatment: the patient's symptoms have markedly improved after treatment, and as a result, I will discharge patient. 09/17 15:39 Order name: Basic Metabolic Panel; Complete Time: 16:59 cp 09/17 16:59 Interpretation: Normal except: CL 111; GLUC 157. cp 09/17 15:39 Order name: CBC with Diff; Complete Time: 16:14 cp 09/17 17:19 Interpretation: Normal except: RBC 3.98; HGB 12.7; HCT 37.3; PLT 147; EOSINOPHIL % 4.6. cp 09/17 15:39 Order name: Creatinine for Radiology; Complete Time: 16:59 cp 09/17 15:39 Order name: Hepatic Function; Complete Time: 16:59 cp 16 16:59 Interpretation: Normal except: ALK 154; ALB 3.3; GLOB 4.2; A/G 0.8. cp 09/17 15:39 Order name: Lipase; Complete Time: 16:59 cp 09/17 15:39 Order name: Urine Microscopic Only; Complete Time: 18:23 cp 09/17 16:15 Order name: CT Abd/Pelvis - W/Contrast: no oral contrast; Complete Time: 17:18 cp 09/17 17:20 Order name: US Abdomen Limited cp 09/17 18:05 Order name: Urine Dipstick--Ancillary (enter results); Complete Time: 18:23 ms 09/17 15:39 Order name: IV Saline Lock; Complete Time: 15:59 cp 09/17 15:39 Order name: Labs collected and sent; Complete Time: 15:59 cp 09/17 15:39 Order name: Urine Dipstick-Ancillary (obtain specimen); Complete Time: 18:04 cp 09/17 17:00 Order name: Cath; Complete Time: 18:04 cp Administered Medications: 15:58 Drug: TORadol 30 mg Route: IVP; Site: right antecubital; mg2 17:29 Follow up: Response: No adverse reaction tl3 15:58 Drug: NS 0.9% 500 ml Route: IV; Rate: bolus; Site: right antecubital; mg2 16:30 Follow up: IV Status: Completed infusion; IV Intake: 500ml tl3 15:59 Drug: Zofran 4 mg Route: IVP; Site: right antecubital; mg2 17:29 Follow up: Response: No adverse reaction tl3 16:38 Drug: NS 0.9% 1000 ml Route: IV; Rate: 125 ml/hr; Site: right antecubital; mg2 18:34 Follow up: Response: No adverse reaction; IV Status: Order to discontinue infusion mg2 17:47 Drug: fentaNYL (PF) 25 mcg Route: IVP; Site: right antecubital; mg2 18:34 Follow up: Response: No adverse reaction; Marked relief of symptoms mg2 Disposition: 19:00 Chart complete. 09/18 17:37 Co-signature as Attending Physician, David Parker MD. Disposition: 09/17/18 18:31 Discharged to Home. Impression: Upper abdominal pain, unspecified, Back Pain. - Condition is Stable. - Discharge Instructions: Abdominal Pain, Adult, Back Pain, Adult. - Prescriptions for Protonix 40 mg Oral Tablet, Delayed Release (E.C.) - take 1 tablet by ORAL route once daily; 10 tablet. Diclofenac Sodium 75 mg Oral Tablet, Delayed Release (E.C.) - take 1 tablet by ORAL route 2 times per day; 15 tablet. - Medication Reconciliation Form, Thank You Letter, Antibiotic Education, Prescription Opioid Use form. - Follow up: Private Physician; When: 2 - 3 days; Reason: Recheck today's complaints. - Problem is new. - Symptoms have improved. Signatures: Dispatcher [employer] EDMS Forest Kc PA PA David Parker MD MD Arturo Sewell RN RN [facility] Sol Fink RN tl3 Corrections: (The following items were deleted from the chart) 09/17 18:50 18:31 09/17/2018 18:31 Discharged to Home. Impression: Upper abdominal pain, mg2 unspecified; Back Pain. Condition is Stable. Discharge Instructions: Abdominal Pain, Adult, Back Pain, Adult. Prescriptions for Diclofenac Sodium 75 mg Oral Tablet, Delayed Release (E.C.) - take 1 tablet by ORAL route 2 times per day; 15 tablet, Protonix 40 mg Oral Tablet, Delayed Release (E.C.) - take 1 tablet by ORAL route once daily; 10 tablet. and Forms are Medication Reconciliation Form, Thank You Letter, Antibiotic Education, Prescription Opioid Use. Follow up: Private Physician; When: 2 - 3 days; Reason: Recheck today's complaints. Problem is new. Symptoms have improved. cp
--- NOTE | 2018-09-17 18:32 | ER ---
Nurse's Notes [facility] Name: David Lopez Age: 63 yrs Sex: Male : 1955 Arrival Date: 09/17/2018 Time: 15:06 Bed 30 Private MD: Diagnosis: Upper abdominal pain, unspecified;Back Pain Presentation: 09/17 15:09 Presenting complaint: EMS states: patient is complaining of back pain and epigastric mg2 pain for a week now. denies n/v. Temp on scene 99.7 F. Transition of care: patient was not received from another setting of care. Onset of symptoms was September 2018. Risk Assessment: Do you want to hurt yourself or someone else? Patient reports no desire to harm self or others. Initial Sepsis Screen: Does the patient meet any 2 criteria? No. Patient's initial sepsis screen is negative. Does the patient have a suspected source of infection? No. Patient's initial sepsis screen is negative. Care prior to arrival: None. 15:09 Method Of Arrival: EMS: [facility] 15:09 Acuity: LEANNA 3 mg2 Triage Assessment: 15:59 General: Appears in no apparent distress. comfortable, Behavior is calm, cooperative. mg2 Pain: Complains of pain in back and epigastrium Pain does not radiate. Pain currently is 10 out of 10 on a pain scale. Quality of pain is described as aching, Pain began gradually, 1 week ago Is intermittent. EENT: No signs and/or symptoms were reported regarding the EENT system. Neuro: Level of Consciousness is awake, alert, obeys commands, Oriented to person, place, time, situation. Cardiovascular: Capillary refill < 3 seconds Patient's skin is warm and dry. Respiratory: Airway is patent Respiratory effort is even, unlabored, Respiratory pattern is regular, symmetrical. GI: No signs and/or symptoms were reported involving the gastrointestinal system. GI: GI: Reports epigastric pain. : No signs and/or symptoms were reported regarding the genitourinary system. Derm: Skin is intact, is healthy with good turgor, Skin is pink, warm \T\ dry. normal. Musculoskeletal: Circulation, motion, and sensation intact. Capillary refill < 3 seconds, Reports pain in back. Historical: - Allergies: 15:15 No Known Allergies; mg2 - Home Meds: 15:15 alprazolam 1 mg Oral TbDL 1 tab 3 times per day [Active]; fluoxetine 40 mg Oral cap 1 mg2 cap once daily [Active]; gabapentin 600 mg Oral tab 1 tab 3 times per day [Active]; gemfibrozil 600 mg Oral tab daily [Active]; Lyrica 50 mg Oral daily [Active]; omeprazole 20 mg Oral cpDR 1 cap once daily [Active]; oxycodone-acetaminophen 10-650 mg Oral tab every 4 hours [Active]; Risperdal 2 mg Oral tab 1 tab once daily [Active]; simvastatin 20 mg Oral tab 1 tab once daily [Active]; sotalol 80 mg Oral tab 1 tab 2 times per day [Active]; tamsulosin 0.4 mg Oral cp24 1 cap once daily [Active]; trazodone 50 mg Oral tab nightly [Active]; - PMHx: 15:15 CVA; Diabetes - NIDDM; Hypertension; Parkinsons; mg2 - PSHx: 15:15 Knee surgery; hip replacement; elbow surgery; back surgery; mg2 - Immunization history:: Flu vaccine is not up to date. - Social history:: Smoking status: Patient/guardian denies using tobacco, Patient/guardian denies using alcohol, street drugs, IV drugs. - Ebola Screening: : No symptoms or risks identified at this time. Screenin:15 Abuse screen: Denies threats or abuse. Denies injuries from another. Nutritional mg2 screening: No deficits noted. Tuberculosis screening: No symptoms or risk factors identified. Fall Risk Ambulatory Aid- None/Bed Rest/Nurse Assist (0 pts). Gait- Impaired (20 pts.). Assessment: 16:01 Reassessment: see triage assessment. mg2 16:57 Reassessment: patient sent to ct scan via stretcher. mg2 17:28 Reassessment: Patient appears in no apparent distress at this time. No changes from tl3 previously documented assessment. Patient and/or family updated on plan of care and expected duration. Pain level reassessed. Patient is alert, oriented x 3, equal unlabored respirations, skin warm/dry/pink. no needs at this time. 18:49 Reassessment: Patient denies pain at this time. mg2 Vital Signs: 15:11 BP 154 / 81; Pulse 83; Resp 18; Temp 97.9(TE); Pulse Ox 98% on R/A; Weight 77.11 kg; mg2 Height 5 ft. 3 in. (160.02 cm); Pain 3/10; 16:14 BP 137 / 71; Pulse 80; Resp 18; Pulse Ox 100% on R/A; mg2 17:28 BP 144 / 71; Pulse 75; Resp 18; Pulse Ox 98% on R/A; tl3 18:17 BP 152 / 78; Pulse 70; Resp 18; Pulse Ox 98% on R/A; mg2 18:49 BP 138 / 80; Pulse 80; Resp 18; Pulse Ox 100% on R/A; Pain 0/10; mg2 15:11 Body Mass Index 30.11 (77.11 kg, 160.02 cm) mg2 ED Course: 15:06 Patient arrived in ED. mg2 15:09 Arturo Sewell, BERNY is Primary Nurse. mg2 15:11 Triage completed. mg2 15:12 Forest Kc PA is PHCP. cp 15:13 David Parker MD is Attending Physician. cp 15:15 Arm band placed on. mg2 16:01 Patient has correct armband on for positive identification. Door closed. Warm blanket mg2 given. 16:01 No provider procedures requiring assistance completed. Inserted saline lock: 20 gauge mg2 in right antecubital area, using aseptic technique. Blood collected. 17:02 CT completed. Patient tolerated procedure well. Patient moved back from CT. mw3 17:02 CT Abd/Pelvis - W/Contrast: no oral contrast In Process Unspecified. EDMS 18:04 Straight cath inserted, using sterile technique, 16 Fr. Returned clear yellow urine. mg2 Patient tolerated well. 18:30 US Abdomen Limited In Process Unspecified. EDMS 18:50 IV discontinued, intact, bleeding controlled, No redness/swelling at site. Pressure mg2 dressing applied. Administered Medications: 15:58 Drug: TORadol 30 mg Route: IVP; Site: right antecubital; mg2 17:29 Follow up: Response: No adverse reaction tl3 15:58 Drug: NS 0.9% 500 ml Route: IV; Rate: bolus; Site: right antecubital; mg2 16:30 Follow up: IV Status: Completed infusion; IV Intake: 500ml tl3 15:59 Drug: Zofran 4 mg Route: IVP; Site: right antecubital; mg2 17:29 Follow up: Response: No adverse reaction tl3 16:38 Drug: NS 0.9% 1000 ml Route: IV; Rate: 125 ml/hr; Site: right antecubital; mg2 18:34 Follow up: Response: No adverse reaction; IV Status: Order to discontinue infusion mg2 17:47 Drug: fentaNYL (PF) 25 mcg Route: IVP; Site: right antecubital; mg2 18:34 Follow up: Response: No adverse reaction; Marked relief of symptoms mg2 Intake: 16:30 IV: 500ml; Total: 500ml. tl3 Outcome: 18:31 Discharge ordered by MD. cp 18:49 Discharged to home via wheelchair, with family. mg2 18:49 Condition: stable 18:49 Discharge instructions given to patient, family, Instructed on discharge instructions, follow up and referral plans. medication usage, Demonstrated understanding of instructions, follow-up care, medications, Prescriptions given X 2. 18:50 Patient left the ED. mg2 Signatures: Dispatcher [employer] EDMS Forest Kc PA PA cp Lowrey, Tammy, RN RN tl3 Arturo Sewell RN RN mg2 Audra Roth mw3
--- NOTE | 2018-09-17 18:38 | RAD REPORT ---
EXAM DESCRIPTION: US - Abdomen Exam Limited - 09/17/2018 6:29 pm CLINICAL HISTORY: EPIGASTRIC PAIN COMPARISON: RP EXAM COMPLETE dated 07/20/2015 FINDINGS: The gallbladder demonstrates no gallstones. No pericholecystic fluid or gallbladder wall t hickening. The common bile duct is normal measuring 4 mm. The liver demonstrates no findings of intrahepatic biliary dilatation. IMPRESSION: Unremarkable examination.
[2018-09-17 19:38] VITALS: TEMP 97.9
[2018-09-17 19:43] VITALS: BP 138/80; O2SAT 100
== END 2018-09-17 18:50 | disposition home or self-care (01) ==
LOC: ER 15:03
DX: M54.9 Dorsalgia, unspecified (principal); I10 Essential (primary) hypertension; E11.9 Type 2 diabetes mellitus without complications; G20 Parkinson's disease; Z86.73 Personal history of transient ischemic attack (TIA), and cerebral infarction without residual deficits
CPT/HCPCS: 36415; 51702; 74177; 76705; 80048; 80076; 83690; 85025; 96361; 96374; 96375; 99284; J2405; J3010; J7030; Q9967; 81003; 81015

== ENCOUNTER 2019-06-21 15:37 | Emergency (ER) | payer OTHER ==
--- OUTSIDE RECORDS SUMMARY | 2019-06-21 15:39 | XMS REPORT | Summary of Care ---
:1955 Author Organization [facility] Address [address] [place] [address] Care Team Providers Name Role Phone Unknown, Attending Primary Care Provider Unavailable Reason for Referral (Routine) Status Reason Specialty Diagnoses / Referred By Referred To Procedures Contact Contact New Request Sleep Disorder Diagnoses Dyspnea on exertion Jalen, Diagnostic Procedures SLEEP STUDY, ATTENDED Madelyn Morales MD [address] [place], [place] [phone] (Routine) Status Reason Specialty Diagnoses / Referred By Referred To Procedures Contact Contact New Request Pulmonary Function Diagnoses Dyspnea on exertion Jalen, Technologist Procedures DIAGNOSTIC PROCEDURE Preferred Location: [place] [facility] Madelyn Morales MD [address] [place], [place] [phone] (Routine) Status Reason Specialty Diagnoses / Referred By Referred To Procedures Contact Contact New Request Speech-Language Diagnoses Dyspnea on exertion Jalen, Pathologist Procedures CONSULT SPEECH (DYSPHAGIA) Madelyn Morales MD [address] [place] [phone] Reason for Visit Reason Comments Follow-up dyspnea and cough Encounter Details Date Type Department Care Team Description 02/23/2019 Office Visit [facility] Madelyn Rao MD [address] [place] [address], [place] [address] [phone] Dyspnea on exertion Pulmonary- [place] Enoch Cabrera MD [address] [place] [phone] (Primary Dx) [facility] [address] [place] [address] Allergies Active Allergy Reactions Severity Noted Date Comments Carbidopa-Levodopa Other - See comments 03/25/2017 Unable to walk. documented as of this encounter (statuses as of 02/23/2019) Medications Medication Sig Dispensed Refills Start Date End Date Status triamcinolone acetonide Apply to 80 g 3 10/04/2014 Active (TRIDERM) 0.1 % area(s) 2 (two) creamIndications: times daily. Pruritus ARIPiprazole 10 mg TK 1 T PO QD 5 09/10/2016 Active tablet documented as of this encounter (statuses as of 02/23/2019) Active Problems Problem Noted Date Fever, unknown origin 09/20/2017 Bradycardia 12/08/2016 Parkinson's disease 01/02/2016 Hypotension 12/30/2015 Right wrist injury 11/08/2015 DM (diabetes mellitus) 08/26/2015 CHAPO on CPAP 08/26/2015 Chest pain 08/24/2015 SOB (shortness of breath) 03/29/2014 Dyspnea and respiratory abnormality 03/23/2011 Overview: ICD10 Diagnosis Term Operater Utility Surgical aftercare, musculoskeletal system 08/01/2009 GERD (gastroesophageal reflux disease) 08/01/2009 Other voice and resonance disorders 12/21/2008 Enlarged prostate without lower urinary tract symptoms (luts) 12/07/2008 Overview: ICD10 Diagnosis Term Operater Utility Fasciitis 11/22/2008 Overview: ICD10 Diagnosis Term Operater Utility Arthropathy associated with another systemic disease 11/22/2008 Overview: ICD10 Diagnosis Term Operater Utility Degeneration of intervertebral disc, site unspecified Overview: 2 to trauma Malignant neoplasm of kidney excluding renal pelvis Overview: left nephrectomy in ICD10 Diagnosis Term Operater Utility Essential hypertension Overview: ICD10 Diagnosis Term Operater Utility Backache Overview: back surgeries in , ICD10 Diagnosis Term Operater Utility Hip joint replacement by other means Overview: B/L Asbestosis Overview: ICD10 Diagnosis Term Operater Utility Gout Overview: ICD10 Diagnosis Term Operater Utility HLD (hyperlipidemia) Overview: ICD10 Diagnosis Term Operater Utility documented as of this encounter (statuses as of 02/23/2019) Resolved Problems Problem Noted Date Resolved Date Other diseases of vocal cords 12/21/2008 02/11/2009 documented as of this encounter (statuses as of 02/23/2019) Immunizations Name Administration Dates Next Due Pneumococcal Polysaccharide, PPSV23 (PNEUMOVAX) 08/31/2011 documented as of this encounter Social History Tobacco Use Types Packs/Day Years Used Date Former Smoker Cigarettes Smokeless Tobacco: Current User Comments: states smoked occasionly for about 3 years Alcohol Use Drinks/Week oz/Week Comments Yes .5 Standard drinks or equivalent 0.0 once per month Sex Assigned at Date Recorded Not on file Job Start Date Occupation Industry Not on file Not on file Not on file Travel History Travel Start Travel End No recent travel history available. documented as of this encounter Last Filed Vital Signs Vital Sign Reading Time Taken Comments Blood Pressure 146/86 02/23/2019 3:43 PM CDT Pulse 66 02/23/2019 3:43 PM CDT Temperature 36.6 C (97.9 F) 02/23/2019 3:43 PM CDT Respiratory Rate 12 02/23/2019 3:43 PM CDT Oxygen Saturation 97% 02/23/2019 3:43 PM CDT Inhaled Oxygen Concentration - - Weight 67.4 kg (148 lb 11.2 oz) 02/23/2019 3:43 PM CDT Height 162.6 cm (5' 4") 02/23/2019 3:43 PM CDT Body Mass Index 25.52 02/23/2019 3:43 PM CDT documented in this encounter Progress Notes Enoch Cabrera MD - 02/23/2019 3:00 PM CDT PULMONARY MEDICINE CONSULTATION NOTE Consultation requested by: No admitting provider for patient encounter. Date of Service: 02/23/2019 15:46 HD #: 0 CC: dyspnea Reason for Consultation: dyspnea History of Present Illness David Lopez Sr. is a 63 year old male with chronic dyspnea , worse with activities. Patient has seen 3 different neurologist and is being evaluated for a neuro muscular disorder that has progressively worsened over the years to the point that he is unable to walk anymore. He reports chronic cough, worse when drinks or eats liquid foods. He reports chronic back pain in his lumbar spine . His is concerned that pain may be coming from his lungs. 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 Patient has had left kidney cancer s/p nephrectomy . Patient is a non smoker. Grandfather had lung cancer. He was a non smoker. on his Patient's notices that patient has difficulty sleeping at night. Patient is sleepy all day. He does take morphine intermittently for pain. Social History Tobacco Use Smoking Status Former Smoker Types: Cigarettes Smokeless Tobacco Current User Tobacco Comment states smoked occasionly for about 3 years PAST MEDICAL HISTORY Past Medical History: Diagnosis Date Asbestosis(501) CHRONIC BACK PAIN back surgeries in , Degeneration of intervertebral disc, site unspecified 2 to trauma Gout Hip joint replacement by other means B/L Other and unspecified hyperlipidemia Parkinson's disease RA (rheumatoid arthritis) RENAL CANCER left nephrectomy in Renal failure Right wrist injury 11/08/2015 Stroke Transfusion history Type II or unspecified type diabetes mellitus without mention of complication, not stated as uncontrolled diet controlled Unspecified essential hypertension Past Surgical History: Procedure Laterality Date BACK SURGERY FEMUR ORIF 11/16/2011 Surgeon:Ness MONTAÑO; Location:[facility] OR [facility] HYDROCELECTOMY 08/15/2013 Surgeon: Maldonado Ramirez MD; Location: [facility] OR [facility] LAMINECTOMY,CERVICAL 2008 NEPHRECTOMY left nephrectomy 1997 TOTAL HIP ARTHROPLASTY TOTAL KNEE ARTHROPLASTY 07/31/2009 Right Family History Problem Relation Age of Onset Other - see comments Other multiple family members with gout Diabetes Maternal Grandmother Social History Socioeconomic History Marital status: Spouse name: Not on file Number of children: Not on file Years of education: Not on file Highest education level: Not on file Occupational History Not on file Social Needs Financial resource strain: Not on file Food insecurity: Worry: Not on file Inability: Not on file Transportation needs: Medical: Not on file Non-medical: Not on file Tobacco Use Smoking status: Former Smoker Types: Cigarettes Smokeless tobacco: Current User Tobacco comment: states smoked occasionly for about 3 years Substance and Sexual Activity Alcohol use: Yes Alcohol/week: 0.0 oz Types: 1 Standard drinks or equivalent per week Comment: once per month Drug use: No Sexual activity: Not on file Lifestyle Physical activity: Days per week: Not on file Minutes per session: Not on file Stress: Not on file Relationships Social connections: Talks on phone: Not on file Gets together: Not on file Attends uatsdin service: Not on file Active member of club or organization: Not on file Attends meetings of clubs or organizations: Not on file Relationship status: Not on file Intimate partner violence: Fear of current or ex partner: Not on file Emotionally abused: Not on file Physically abused: Not on file Forced sexual activity: Not on file Other Topics Concern Not on file Social History Narrative Not on file Allergies: Rytary [carbidopa-levodopa] Current Hospital Medications: Current Outpatient Medications Medication Sig Dispense Refill ARIPiprazole 10 mg tablet TK 1 T PO QD 5 triamcinolone acetonide (TRIDERM) 0.1 % cream Apply to area(s) 2 (two) times daily. 80 g 3 No current facility-administered medications for this visit. Home Medications: Current Outpatient Medications Medication Sig Dispense Refill ARIPiprazole 10 mg tablet TK 1 T PO QD 5 triamcinolone acetonide (TRIDERM) 0.1 % cream Apply to area(s) 2 (two) times daily. 80 g 3 No current facility-administered medications for this visit. Review of Systems: General: - fever, - chills, + weight loss, - dizziness, + fatigue, - change in appetite HEENT: - headache, - change in hearing, - change in vision, - sinus congestion, rhinorrhea, - post nasal drainage, - watery eyes, - sore throat Hematologic: - bleeding disorder Respiratory: +cough, +shortness of breath, + dyspnea on exertion, - wheezing - orthopnea, - PND Cardiovascular: - chest pain, - palpitations, - syncope, -lower extremity swelling, Gastrointestinal: - abdominal pain, - nausea, - vomiting, - diarrhea, - constipation, - melena, - hematochezia, - hematemesis Genitourinary: - dysuria, - hematuria, - increased frequency, - difficulty urinating, - difficulty initiating Neurologic: -weakness, -dizziness, -headache Endocrine: - heat/cold intolerance, -polyuria Musculoskeletal: - joint pain, - back pain, - muscle spasms Integument: - rash, - lesion Psych: -depression, -anxiety Physical Exam and Objective Data BP (!) 146/86 (BP Location: Right arm, Patient Position: Sitting, BP CUFF SIZE: Adult Medium) | Pulse 66 | Temp 36.6 C (97.9 F) (Oral) | Resp 12 | Ht 5 ' 4" (1.626 m) | Wt 148 lb 11.2 oz (67.4 kg) | SpO2 97% | BMI 25.52 kg/m Constitutional: patient alert and in no acute distress Head: normocephalic and atraumatic Eyes: normal external eye, corneas clear, conjunctiva and sclera normal and pupils equal, round, reactive to light and accomodation ENT: nasal passages clear ; moist oral mucosa, no erythema or tonsillar enlargement, posterior pharynx clear; no cervical lymphadenopathy Cardiovascular: regular rate and rhythm, no murmur, no JVD, no lower extremity pitting edema, symmetrical peripheral pulses Respiratory: clear to auscultation bilaterally, without wheezes, rales or rhonchi Gastrointestinal: soft, non-tender, non-distended , obese abdomen Musculoskeletal: No clubbing or cyanosis Neurologic: cranial nerves II - XII grossly intact Integument: skin color, texture and turgor are normal; no bruising, rashes or lesions noted Lymphatic: No appreciable supraclavicular, submandibular or axillary LAD appreciable LABORATORY CBC BMP LFTs WBC x10^3 (/uL) Date Value 10/04/2014 8.0 WBC (10*3/uL) Date Value 09/21/2017 6.30 NA Date Value 05/23/2018 144 mmol/L 10/04/2014 144 MMOL/L ALK PHOS (U/L) Date Value 09/20/2017 120 10/04/2014 126 (H) HGB Date Value 09/21/2017 12.1 g/dL (L) 10/04/2014 12.7 G/DL K Date Value 05/23/2018 4.6 mmol/L 10/04/2014 5.0 MMOL/L ALT(SGPT) (U/L) Date Value 09/20/2017 78 (H) 10/04/2014 52 (H) HCT (%) Date Value 09/21/2017 36.1 (L) 10/04/2014 37.0 (L) CALCIUM Date Value 05/23/2018 9.6 mg/dL 10/04/2014 10.3 MG/DL AST(SGOT) (U/L) Date Value 09/20/2017 96 (H) 10/04/2014 85 (H) PLT x10^3 (/uL) Date Value 10/04/2014 234 PLT (10*3/uL) Date Value 09/21/2017 155 CL Date Value 05/23/2018 112 mmol/L (H) 10/04/2014 102 MMOL/L RBC x10^6 (/uL) Date Value 10/04/2014 3.89 (L) RBC (10*6/uL) Date Value 09/21/2017 3.95 (L) BUN Date Value 05/23/2018 14 mg/dL 10/04/2014 30 MG/DL (H) Cardio CREATININE Date Value 05/23/2018 0.83 mg/dL 10/04/2014 1.20 MG/DL NT-proBNP (pg/mL) Date Value 10/25/2015 398 (H) 03/28/2014 399 (H) Thyroid TSH Date Value 09/20/2017 0.96 mIU/L 03/17/2011 1.39 uIU/mL No components found for: GLUC RESULTS REVIEWED: CT thorax 10/2015 personally reviewed. No severe pulmonary parenchymal disease noted. PFTs 04/2011 Arterial Blood Gas / Pulse Oximetry: Room air pulse oximetry is 95 %. Predicted A-a gradient for the patient's age (age x 0.3) is 16 mmHg. The patient's calculated A-a gradient [150 - (PCO2/0.8) - PO2] is 13 mmHg (with a PO2 of 82 mmHg). Mixed respiratory and metabolic acidosis is present. Shunt Study: PaO2 on 100% oxygen was 283 mmHg. The A-a gradient on 100% oxygen [713 - (PCO2/0.8) - PaO2] was 370 mmHg. Shunt fraction [ (A-a gradient0 / (A-a gradient + 1670) ] was 18 % (normal <= 5 %). Impression: Increased shunt fraction. Anatomic (pulmonary circulation), intra- cardiac (such as ASD, PF, ...), may also be lobar atelectasis, pneumonia and pulmonary edema 03/2011 Spirometry: FVC is slightly reduced FEV1 is mildly reduced FEF 25-75% is normal FEV1/FVC is normal Bronchodilator response is not significant (FEV1 improvement of < 12% or < 200 ml's). Lung Volumes: TLC is normal ERV is reduced RV is normal Diffusion Capacity: Diffusing capacity is normal Diffusing capacity per alveolar volume is normal. Arterial Blood Gas / Pulse Oximetry Room air pulse oximetry is 94.3 % Predicted A-a gradient for the patient's age (age x 0.3) is 16 mmHg. The patient's calculated A-a gradient ( 150-(PCO2/0.8)-PO2) is 26.6 mmHg Chronic respiratory acidosis is present Impression: Nonspecific ventilatory defect. The response to bronhodilators is not significant based on ATS standards but there is still a 10% response. TTE 08/2015 Interpretation Summary Left ventricular systolic function is normal. Ejection Fraction=55-60%. The left ventricular wall motion is normal. Right ventricular systolic pressure is elevated at 35-40 mmHg. Assessment & Plan David Lopez Sr. is a 63 year old male with: // Dyspnea with mild activities. Plan: PFTs and abg ordered. CBC, CMP, NT-pro bnp prdered to evaluate for other causes of dyspnea. CXR 2 views ordered. // Chronic cough specially with liquid food, suspect due to chronic aspiration. Speech evaluation ordered. // Probable sleep disordered breathing. Plan: Sleep study ordered. // Chronic Degenerative neuromuscular disease, suspect is the main wheelchair driver for all of patient's symptoms. // Chronic hypercapnic respiratory failure likely due to chronic neuromuscular disease. Plan After sleep study and pfts with abg will see if patient qualifies for RAD and or BPAP. // Occupational exposure to asbestos [address] chest from 2016 do not show evidence of pulmonary fibrosis suggestive of asbestosis, pfts from 2010 with normal lung volumes. //Chronic back pain, unlikely related To primary pulmonary etiology. Asked patient to be evaluate by pain specialist. Plan was reviewed with Dr Sin and discussed with the patient. All concerns were addressed and all questions answered. Enoch Tang MD PGY4 Fellow Pulmonary & Critical Care Medicine Pager [phone] documented in this encounter Plan of Treatment Date Type Specialty Care Team Description 02/23/2019 Truck Driver Helper Visit Phlebotomy aMdelyn Rao MD [address] [place] [address] [phone] Arrived [facility] 04/25/2019 Office Visit Urology Uriah Cantrell [id number] [place] [address] [phone] 07/07/2019 Office Visit Pulmonary Disease Fellow, Pulmonary Name Type Priority Associated Order Schedule Diagnoses DIAGNOSTIC PROCEDURE PULMONARY FUNCTION Routine Dyspnea on exertion Expected: Preferred Location: LAB 02/23/2019, [place] [facility] Expires: 08/26/2020 SLEEP STUDY, ATTENDED PROCEDURES Routine Dyspnea on exertion Expected: 02/23/2019, Expires: 08/26/2020 XR CHEST 2 VW IMAGING Routine Dyspnea on exertion Expected: 02/23/2019, Expires: 02/24/2020 N-TERMINAL PRO-BNP LAB Routine Dyspnea on exertion Ordered: 02/23/2019 CBC WITH DIFF LAB Routine Dyspnea on exertion Ordered: 02/23/2019 COMP. METABOLIC PANEL LAB Routine Dyspnea on exertion Ordered: ([id number]) 02/23/2019 CBC WITH DIFFERENTIAL LAB Routine Dyspnea on exertion Ordered: 02/23/2019 Health Maintenance Due Date Last Done Comments EYE EXAM 1966 URINE MICROALBUMIN 1966 FOOT EXAM 1974 DTaP,Tdap,and Td Vaccines (1 - 1975 Tdap) COLONOSCOPY 2006 Zoster Recombinant Vaccine 2006 (SHINGRIX) (1 of 2) PNEUMOCOCCAL 0-64 YEARS COMBINED 08/31/2012 08/31/2011 SERIES (2 of 3 - PCV13) LDL-C 11/13/2012 11/14/2011, 03/17/2011, 09/02/2005 HgA1C 09/29/2014 03/29/2014, 08/30/2011, 11/22/2008 LUNG CANCER SCREEN: Recommended 03/29/2015 03/29/2014, 04/08/2011 for age 55-80 with 30 + pack year history INFLUENZA VACCINE 04/02/2019 CREATININE (SERUM) 05/23/2019 05/23/2018, 09/21/2017, 09/20/2017, Additional history exists HEPATITIS C (HCV) SCREEN Completed 11/22/2008 documented as of this encounter Implants Implanted Type Area Horse Racing Analyst Device Identifier Shelf Expiration Model / Serial Date / Lot Femur Femur Hip HIP Teofilo TEOFILO documented as of this encounter Results Not on filedocumented in this encounter Visit Diagnoses Diagnosis Dyspnea on exertion - Primary Other dyspnea and respiratory abnormality documented in this encounter Insurance Payer Benefit Plan / Subscriber ID Effective Phone Address Type Group Dates [facility] [id number] 2017-Prese Medicare Adv HEALTHCARE - HEALTHCARE nt PPO MANAGED MEDICARE GOLD MEDICARE documented as of this encounter Advance Directives Type Date Recorded Patient Control Operator Flow Coat Explanation Advance Directives and 08/04/2013 10:53 AM Living Will Power of Calender Tender Kina Cruz
--- OUTSIDE RECORDS SUMMARY | 2019-06-21 15:39 | XMS REPORT | Summary of Care ---
:1955 Author Organization [facility] Address [address] [place] [address] Care Team Providers Name Role Phone Unknown, Attending Primary Care Provider Unavailable Reason for Referral (Routine) Status Reason Specialty Diagnoses / Referred By Referred To Procedures Contact Contact New Request Sleep Disorder Diagnoses Dyspnea on exertion Jalen, Diagnostic Procedures SLEEP STUDY, ATTENDED Madelyn Morales MD [address] [place], [place] [phone] (Routine) Status Reason Specialty Diagnoses / Referred By Referred To Procedures Contact Contact New Request Pulmonary Function Diagnoses Dyspnea on exertion Jalen, Technologist Procedures DIAGNOSTIC PROCEDURE Preferred Location: [place] [facility] Madelyn Morales MD [address] [place], [place] [phone] (Routine) Status Reason Specialty Diagnoses / Referred By Referred To Procedures Contact Contact New Request Speech-Language Diagnoses Dyspnea on exertion Jalen, Pathologist Procedures CONSULT SPEECH (DYSPHAGIA) Madelyn Morales MD [address] [place] [phone] Reason for Visit Reason Comments Follow-up dyspnea and cough Encounter Details Date Type Department Care Team Description 02/23/2019 Office Visit [facility] Madelyn Rao MD [address] [place] [address], [place] [address] [phone] Dyspnea on exertion Pulmonary- [place] Enoch Cabrera MD [address] [place] [phone] (Primary Dx) [facility] [address] [place] [address] Allergies Active Allergy Reactions Severity [...] respiratory abnormality 03/23/2011 Overview: ICD10 Diagnosis Term Senior Chemical Process Engineer Utility Surgical aftercare, musculoskeletal system 08/01/2009 GERD (gastroesophageal reflux disease) 08/01/2009 Other voice and resonance disorders 12/21/2008 Enlarged prostate without lower urinary tract symptoms (luts) 12/07/2008 Overview: ICD10 Diagnosis Term Senior Chemical Process Engineer Utility Fasciitis 11/22/2008 Overview: ICD10 Diagnosis Term Senior Chemical Process Engineer Utility Arthropathy associated with another systemic disease 11/22/2008 Overview: ICD10 Diagnosis Term Senior Chemical Process Engineer Utility Degeneration of intervertebral disc, site unspecified Overview: 2 to trauma Malignant neoplasm of kidney excluding renal pelvis Overview: left nephrectomy in ICD10 Diagnosis Term Senior Chemical Process Engineer Utility Essential hypertension Overview: ICD10 Diagnosis Term Senior Chemical Process Engineer Utility Backache Overview: back surgeries in , ICD10 Diagnosis Term Senior Chemical Process Engineer Utility Hip joint replacement by other means Overview: B/L Asbestosis Overview: ICD10 Diagnosis Term Senior Chemical Process Engineer Utility Gout Overview: ICD10 Diagnosis Term Senior Chemical Process Engineer Utility HLD (hyperlipidemia) Overview: ICD10 Diagnosis Term Senior Chemical Process Engineer Utility documented as of this encounter (statuses [...] BACK SURGERY FEMUR ORIF 11/16/2011 Surgeon:Ness MONTAÑO; [facility] 08/15/2013 Surgeon: Maldonado Ramirez MD; Location: [facility] OR [facility] LAMINECTOMY,CERVICAL 2008 NEPHRECTOMY left nephrectomy 1997 TOTAL [...] file Gets together: Not on file Attends hinduism service: Not on file Active member of [...] Degenerative neuromuscular disease, suspect is the main clark driver for all of patient's symptoms. // [...] Fellow Pulmonary & Critical Care Medicine Pager [phone] documented in this encounter Plan of Treatment Date Type Specialty Care Team Description 02/23/2019 Slot Editor Visit Phlebotomy Madelyn Rao MD [address] [place] [address] [phone] Arrived [facility] 04/25/2019 Office Visit Urology Uriah Cantrell [id number] [place] [address] [phone] 07/07/2019 Office Visit Pulmonary Disease Fellow, Pulmonary Name Type Priority Associated Order Schedule Diagnoses DIAGNOSTIC PROCEDURE PULMONARY FUNCTION Routine Dyspnea on exertion Expected: Preferred Location: LAB 02/23/2019, [place] [facility] Expires: 08/26/2020 SLEEP STUDY, ATTENDED PROCEDURES Routine Dyspnea on exertion Expected: 02/23/2019, Expires: 08/26/2020 XR CHEST 2 VW IMAGING Routine Dyspnea on exertion Expected: 02/23/2019, Expires: 02/24/2020 N-TERMINAL PRO-BNP LAB Routine Dyspnea on exertion Ordered: 02/23/2019 CBC WITH DIFF LAB Routine Dyspnea on exertion Ordered: 02/23/2019 COMP. METABOLIC PANEL LAB Routine Dyspnea on exertion Ordered: ([id number]) 02/23/2019 CBC WITH DIFFERENTIAL LAB Routine Dyspnea [...] of this encounter Implants Implanted Type Area Cleat Layer Device Identifier Shelf Expiration Model / Serial Date / Lot Femur Femur Hip HIP Teofilo TEOFILO documented as of this encounter Results Not on filedocumented in this encounter Visit Diagnoses Diagnosis Dyspnea on exertion - Primary Other dyspnea and respiratory abnormality documented in this encounter Insurance Payer Benefit Plan / Subscriber ID Effective Phone Address Type Group Dates [facility] [id number] 2017-Prese Medicare Adv HEALTHCARE - HEALTHCARE nt PPO MANAGED MEDICARE GOLD MEDICARE documented as of this encounter Advance Directives Type Date Recorded Patient Feeder Catcher Explanation Advance Directives and 08/04/2013 10:53 AM Living Will Power of Childhood Teacher Kina Cruz
--- OUTSIDE RECORDS SUMMARY | 2019-06-21 15:39 | XMS REPORT ---
:1955 Author Organization [facility] Address [address] [place] [address] Dr. Castorena [address] [place] [address] Care Team Providers Name Role Phone Unavailable Unavailable Unavailable Problems This patient has no known problems. Allergies, Adverse Reactions, Alerts This patient has no known allergies or adverse reactions. Medications This patient has no known medications.
--- OUTSIDE RECORDS SUMMARY | 2019-06-21 15:40 | XMS REPORT | Summary of Care ---
:1955 Author Organization [facility] - [facility] Address [address] [place] [address] Care Team Providers Name Role Phone Unknown, Attending Primary Care Provider Unavailable Reason for Visit Reason Comments LAB Encounter Details Date Type Department Care Team Description 02/23/2019 Hunter Guide Visit ANCILLARY LABS Madelyn Rao MD [address] [place] [address] Dyspnea on exertion [facility] Allergies Active Allergy Reactions Severity Noted Date [...] respiratory abnormality 03/23/2011 Overview: ICD10 Diagnosis Term Wood Milling Machine Hand Utility Surgical aftercare, musculoskeletal system 08/01/2009 GERD (gastroesophageal reflux disease) 08/01/2009 Other voice and resonance disorders 12/21/2008 Enlarged prostate without lower urinary tract symptoms (luts) 12/07/2008 Overview: ICD10 Diagnosis Term Wood Milling Machine Hand Utility Fasciitis 11/22/2008 Overview: ICD10 Diagnosis Term Wood Milling Machine Hand Utility Arthropathy associated with another systemic disease 11/22/2008 Overview: ICD10 Diagnosis Term Wood Milling Machine Hand Utility Degeneration of intervertebral disc, site unspecified Overview: 2 to trauma Malignant neoplasm of kidney excluding renal pelvis Overview: left nephrectomy in ICD10 Diagnosis Term Wood Milling Machine Hand Utility Essential hypertension Overview: ICD10 Diagnosis Term Wood Milling Machine Hand Utility Backache Overview: back surgeries in , ICD10 Diagnosis Term Wood Milling Machine Hand Utility Hip joint replacement by other means Overview: B/L Asbestosis Overview: ICD10 Diagnosis Term Wood Milling Machine Hand Utility Gout Overview: ICD10 Diagnosis Term Wood Milling Machine Hand Utility HLD (hyperlipidemia) Overview: ICD10 Diagnosis Term Wood Milling Machine Hand Utility documented as of this encounter (statuses [...] of this encounter Last Filed Vital Signs Not on filedocumented in this encounter Plan of Treatment Date Type Specialty Care Team Description 04/25/2019 Office Visit Urology [id number] [place] [address] [phone] 07/07/2019 Office Visit Pulmonary Disease Fellow, Pulmonary Health Maintenance Due Date Last Done Comments [...] of this encounter Implants Implanted Type Area Penetration Tester Device Identifier Shelf Expiration Model / Serial Date / Lot Femur Femur Hip HIP Teofilo TEOFILO documented as of this encounter Results Not on filedocumented in this encounter Visit Diagnoses Diagnosis Dyspnea on exertion Other dyspnea and respiratory abnormality documented in this encounter Insurance Payer Benefit Plan / Subscriber ID Effective Phone Address Type Group Dates [facility] [id number] 2017-[facility] Medicare [facility] GOLD MEDICARE documented as of this encounter Advance Directives Type Date Recorded Patient Funeral Planner Explanation Advance Directives and 08/04/2013 10:53 AM Living Will Power of Correction Officer Kina Cruz
--- OUTSIDE RECORDS SUMMARY | 2019-06-21 15:40 | XMS REPORT | Summary of Care ---
:1955 Author Organization [facility] - [facility] Address [address] [place] [address] Care Team Providers Name Role Phone Unknown, Attending Primary Care Provider Unavailable Encounter Details Date Type Department Care Team Description 02/23/2019 Hospital Encounter [facility] Radiology Madelyn Rao Arrived [address] Andrew MD [place] [id number] [facility] [phone] [place] [address] [phone] Allergies Active Allergy Reactions Severity Noted Date Comments Carbidopa-Levodopa Other - See comments 03/25/2017 Unable to walk. documented as of this encounter (statuses as of 02/24/2019) Medications Medication Sig Dispensed Refills Start Date End Date Status triamcinolone acetonide Apply to 80 g 3 10/04/2014 Active (TRIDERM) 0.1 % area(s) 2 (two) creamIndications: times daily. Pruritus ARIPiprazole 10 mg TK 1 T PO QD 5 09/10/2016 Active tablet documented as of this encounter (statuses as of 02/24/2019) Active Problems Problem Noted Date Fever, unknown origin 09/20/2017 Bradycardia 12/08/2016 Parkinson's disease 01/02/2016 Hypotension 12/30/2015 Right wrist injury 11/08/2015 DM (diabetes mellitus) 08/26/2015 CHAPO on CPAP 08/26/2015 Chest pain 08/24/2015 SOB (shortness of breath) 03/29/2014 Dyspnea and respiratory abnormality 03/23/2011 Overview: ICD10 Diagnosis Term Interior Block Wirer Utility Surgical aftercare, musculoskeletal system 08/01/2009 GERD (gastroesophageal reflux disease) 08/01/2009 Other voice and resonance disorders 12/21/2008 Enlarged prostate without lower urinary tract symptoms (luts) 12/07/2008 Overview: ICD10 Diagnosis Term Interior Block Wirer Utility Fasciitis 11/22/2008 Overview: ICD10 Diagnosis Term Interior Block Wirer Utility Arthropathy associated with another systemic disease 11/22/2008 Overview: ICD10 Diagnosis Term Interior Block Wirer Utility Degeneration of intervertebral disc, site unspecified Overview: 2 to trauma Malignant neoplasm of kidney excluding renal pelvis Overview: left nephrectomy in ICD10 Diagnosis Term Interior Block Wirer Utility Essential hypertension Overview: ICD10 Diagnosis Term Interior Block Wirer Utility Backache Overview: back surgeries in , ICD10 Diagnosis Term Interior Block Wirer Utility Hip joint replacement by other means Overview: B/L Asbestosis Overview: ICD10 Diagnosis Term Interior Block Wirer Utility Gout Overview: ICD10 Diagnosis Term Interior Block Wirer Utility HLD (hyperlipidemia) Overview: ICD10 Diagnosis Term Interior Block Wirer Utility documented as of this encounter (statuses as of 02/24/2019) Resolved Problems Problem Noted Date Resolved Date Other diseases of vocal cords 12/21/2008 02/11/2009 documented as of this encounter (statuses as of 02/24/2019) Immunizations Name Administration Dates Next Due Pneumococcal [...] 04/25/2019 Office Visit Urology [id number] [place], [place] [id number] 07/07/2019 Office Visit Pulmonary Disease Fellow, Pulmonary [...] of this encounter Implants Implanted Type Area Trash Truck Driver Device Identifier Shelf Expiration Model / Serial Date / Lot Femur Femur Hip HIP Teofilo TEOFILO documented as of this encounter Procedures Procedure Name Priority Date/Time Associated Diagnosis Comments XR CHEST 2 VW Routine 02/23/2019 5:21 PM Dyspnea on exertion Results for this CDT procedure are in the results section. documented in this encounter Results XR CHEST 2 VW (02/23/2019 5:21 PM CDT) Specimen Impressions Performed At PACS/VR/DOSE No acute intrathoracic abnormality. Narrative Performed At * * * * * * * * ORIGINAL REPORT * * * * * * * * PACS/VR/DOSE PROCEDURE: XR CHEST 2 VW CLINICAL INDICATION: dyspnea COMPARISON: 09/20/2017 FINDINGS: The lungs are clear, no infiltrate or nodule seen. No pleural effusion or pneumothorax is seen. The cardiomediastinal silhouette is normal. No acute bony abnormality. Mild arthritic changes throughout spine and shoulders. Procedure Note [facility], Radiant Results Inft User - 02/23/2019 8:04 PM CDT * * * * * * * * ORIGINAL REPORT * * * * * * * * PROCEDURE: XR CHEST 2 VW CLINICAL INDICATION: dyspnea COMPARISON: 09/20/2017 FINDINGS: The lungs are clear, no infiltrate or nodule seen. No pleural effusion or pneumothorax is seen. The cardiomediastinal silhouette is normal. No acute bony abnormality. Mild arthritic changes throughout spine and shoulders. IMPRESSION No acute intrathoracic abnormality. Performing Organization Address City/State/Zipcode Phone Number PACS/VR/DOSE documented in this encounter Visit Diagnoses Diagnosis Dyspnea on exertion Other dyspnea and respiratory abnormality documented in this encounter Insurance Payer Benefit Plan / Subscriber ID Effective Phone Address Type Group Dates [facility] [id number] 2017-Prese Medicare Adv [facility] - [facility] MANAGED MEDICARE GOLD MEDICARE documented as of this encounter Advance Directives Type Date Recorded Patient Platinum And Palladium Kettle Tender Explanation Advance Directives and 08/04/2013 10:53 AM Living Will Power of Roller Billet Mill Kina Cruz
--- OUTSIDE RECORDS SUMMARY | 2019-06-21 15:40 | XMS REPORT | Summary of Care ---
:1955 Author Organization [facility] - [facility] Address [address] [place] [address] Care Team Providers Name Role Phone Unknown, Attending Primary Care Provider Unavailable Reason for Referral (Routine) Status Reason Specialty Diagnoses / Referred By Referred To Procedures Contact Contact New Request Speech-Language Diagnoses Aspiration pneumonitis Jalen, Pathologist Procedures CONSULT SPEECH Madelyn Morales MD [address] [place] [address] (Routine) Status Reason Specialty Diagnoses / Referred By Referred To Procedures Contact Contact New Request Diagnostic Diagnoses Aspiration pneumonitis Jalen, Radiology Procedures MOD BARIUM SWALLOW, (COOKIE) Madelyn Morales MD [address] [place] [address] Reason for Visit Reason Comments Case Management Encounter Details Date Type Department Care Team Description 03/07/2019 Case Management [facility] Pulmonary- Madelyn Rao Case Management Akila Morales MD [facility] [address] [place] [address] [facility], [address] [address] [phone] Allergies Active Allergy Reactions Severity Noted Date Comments Carbidopa-Levodopa Other - See comments 03/25/2017 Unable to walk. documented as of this encounter (statuses as of 03/07/2019) Medications Medication Sig Dispensed Refills Start Date End Date Status triamcinolone acetonide Apply to 80 g 3 10/04/2014 Active (TRIDERM) 0.1 % area(s) 2 (two) creamIndications: times daily. Pruritus ARIPiprazole 10 mg TK 1 T PO QD 5 09/10/2016 Active tablet documented as of this encounter (statuses as of 03/07/2019) Active Problems Problem Noted Date Fever, unknown origin 09/20/2017 Bradycardia 12/08/2016 Parkinson's disease 01/02/2016 Hypotension 12/30/2015 Right wrist injury 11/08/2015 DM (diabetes mellitus) 08/26/2015 CHAPO on CPAP 08/26/2015 Chest pain 08/24/2015 SOB (shortness of breath) 03/29/2014 Dyspnea and respiratory abnormality 03/23/2011 Overview: ICD10 Diagnosis Term Personnel Arbitrator Utility Surgical aftercare, musculoskeletal system 08/01/2009 GERD (gastroesophageal reflux disease) 08/01/2009 Other voice and resonance disorders 12/21/2008 Enlarged prostate without lower urinary tract symptoms (luts) 12/07/2008 Overview: ICD10 Diagnosis Term Personnel Arbitrator Utility Fasciitis 11/22/2008 Overview: ICD10 Diagnosis Term Personnel Arbitrator Utility Arthropathy associated with another systemic disease 11/22/2008 Overview: ICD10 Diagnosis Term Personnel Arbitrator Utility Degeneration of intervertebral disc, site unspecified Overview: 2 to trauma Malignant neoplasm of kidney excluding renal pelvis Overview: left nephrectomy in '98 ICD10 Diagnosis Term Personnel Arbitrator Utility Essential hypertension Overview: ICD10 Diagnosis Term Personnel Arbitrator Utility Backache Overview: back surgeries in '86, '87 ICD10 Diagnosis Term Personnel Arbitrator Utility Hip joint replacement by other means Overview: B/L Asbestosis Overview: ICD10 Diagnosis Term Personnel Arbitrator Utility Gout Overview: ICD10 Diagnosis Term Personnel Arbitrator Utility HLD (hyperlipidemia) Overview: ICD10 Diagnosis Term Personnel Arbitrator Utility documented as of this encounter (statuses as of 03/07/2019) Resolved Problems Problem Noted Date Resolved Date Other diseases of vocal cords 12/21/2008 02/11/2009 documented as of this encounter (statuses as of 03/07/2019) Immunizations Name Administration Dates Next Due Pneumococcal [...] Treatment Date Type Specialty Care Team Description 04/12/2019 Technical Photographer Visit Pulmonary Function Testing, [facility] Technologist Pulmonary Function 04/25/2019 Office Visit Urology Uriah [id number] [place] [address] 07/07/2019 Office Visit Pulmonary Disease Fellow, Pulmonary Name Type Priority Associated Diagnoses Order Schedule MOD BARIUM SWALLOW, IMAGING Routine Aspiration pneumonitis Expected: 2018, (VAN) Expires: 03/07/2020 Health Maintenance Due Date Last Done Comments [...] year history INFLUENZA VACCINE 04/02/2019 CREATININE (SERUM) 02/24/2020 02/23/2019, 05/23/2018, 09/21/2017, Additional history exists HEPATITIS C (HCV) SCREEN Completed 11/22/2008 documented as of this encounter Implants Implanted Type Area Dramatic Arts Historian Device Identifier Shelf Expiration Model / Serial Date / Lot Femur Femur Hip HIP Teofilo TEOFILO documented as of this encounter Results Not on filedocumented in this encounter Visit Diagnoses Diagnosis Aspiration pneumonitis - Primary Pneumonitis due to inhalation of food or vomitus documented in this encounter Insurance Payer Benefit Plan / Subscriber ID Effective Phone Address Type Group Dates [facility] [id number] 2017-Prese Medicare Adv HEALTHCARE - HEALTHCARE nt O MANAGED MEDICARE GOLD MEDICARE documented as of this encounter Advance Directives Type Date Recorded 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
--- OUTSIDE RECORDS SUMMARY | 2019-06-21 15:40 | XMS REPORT | Summary of Care ---
:1955 Author Organization [address] [address] Care Team Providers Name Role Phone Unknown, Attending Primary Care Provider Unavailable Reason for Visit Reason Comments Results Encounter Details Date Type Department Care Team Description 03/08/2019 Telephone [facility] Pulmonary- Enoch Cabrera MD Results [address] [place] [address] [place] [address] [place] [address] Allergies Active Allergy Reactions Severity Noted Date Comments Carbidopa-Levodopa Other - See comments 03/25/2017 Unable to walk. documented as of this encounter (statuses as of 03/08/2019) Medications Medication Sig Dispensed Refills Start Date End Date Status triamcinolone acetonide Apply to 80 g 3 10/04/2014 Active (TRIDERM) 0.1 % area(s) 2 (two) creamIndications: times daily. Pruritus ARIPiprazole 10 mg TK 1 T PO QD 5 09/10/2016 Active tablet documented as of this encounter (statuses as of 03/08/2019) Active Problems Problem Noted Date Fever, unknown origin 09/20/2017 Bradycardia 12/08/2016 Parkinson's disease 01/02/2016 Hypotension 12/30/2015 Right wrist injury 11/08/2015 DM (diabetes mellitus) 08/26/2015 CHAPO on CPAP 08/26/2015 Chest pain 08/24/2015 SOB (shortness of breath) 03/29/2014 Dyspnea and respiratory abnormality 03/23/2011 Overview: ICD10 Diagnosis Term Crusher Assembler Utility Surgical aftercare, musculoskeletal system 08/01/2009 GERD (gastroesophageal reflux disease) 08/01/2009 Other voice and resonance disorders 12/21/2008 Enlarged prostate without lower urinary tract symptoms (luts) 12/07/2008 Overview: ICD10 Diagnosis Term Crusher Assembler Utility Fasciitis 11/22/2008 Overview: ICD10 Diagnosis Term Crusher Assembler Utility Arthropathy associated with another systemic disease 11/22/2008 Overview: ICD10 Diagnosis Term Crusher Assembler Utility Degeneration of intervertebral disc, site unspecified Overview: 2 to trauma Malignant neoplasm of kidney excluding renal pelvis Overview: left nephrectomy in ICD10 Diagnosis Term Crusher Assembler Utility Essential hypertension Overview: ICD10 Diagnosis Term Crusher Assembler Utility Backache Overview: back surgeries in , ICD10 Diagnosis Term Crusher Assembler Utility Hip joint replacement by other means Overview: B/L Asbestosis Overview: ICD10 Diagnosis Term Crusher Assembler Utility Gout Overview: ICD10 Diagnosis Term Crusher Assembler Utility HLD (hyperlipidemia) Overview: ICD10 Diagnosis Term Crusher Assembler Utility documented as of this encounter (statuses as of 03/08/2019) Resolved Problems Problem Noted Date Resolved Date Other diseases of vocal cords 12/21/2008 02/11/2009 documented as of this encounter (statuses as of 03/08/2019) Immunizations Name Administration Dates Next Due Pneumococcal [...] Treatment Date Type Specialty Care Team Description 03/27/2019 Appointment Radiology Madelyn Rao MD [address] [place] [address] [phone] 04/12/2019 Retail District Manager Visit Pulmonary Function Testing, [facility] Technologist Pulmonary Function 04/25/2019 Office Visit Urology Uriah [id number] [place], [place] [address] 07/07/2019 Office Visit Pulmonary Disease Fellow, Pulmonary [...] of this encounter Implants Implanted Type Area Wastewater Engineer Device Identifier Shelf Expiration Model / Serial Date / Lot Femur Femur Hip HIP Teofilo TEOFILO documented as of this encounter Results Not on filedocumented in this encounter Insurance Payer Benefit Plan / Subscriber ID Effective Phone Address Type Group Dates [facility] [id number] 2017-Prese Medicare Adv HEALTHCARE - HEALTHCARE nt PPO MANAGED MEDICARE GOLD MEDICARE documented as of this encounter Advance Directives Type Date Recorded Patient Complaint Investigations Officer Explanation Advance Directives and 08/04/2013 10:53 AM Living Will Power of Caddymaster Kina Cruz
--- OUTSIDE RECORDS SUMMARY | 2019-06-21 15:40 | XMS REPORT | Summary of Care ---
:1955 Author Organization [facility] Address [address] [place] [address] Care Team Providers Name Role Phone Unknown, Attending Primary Care Provider Unavailable Reason for Referral (Routine) Status Reason Specialty Diagnoses / Referred By Referred To Procedures Contact Contact New Request Sleep Disorder Diagnoses Dyspnea on exertion Jalen, Diagnostic Procedures SLEEP STUDY, ATTENDED Madelyn Morales MD [address] [place], [place] [phone] (Routine) Status Reason Specialty Diagnoses / Referred By Referred To Procedures Contact Contact New Request Pulmonary Function Diagnoses Dyspnea on exertion Jalen, Technologist Procedures DIAGNOSTIC PROCEDURE Preferred Location: [facility] Madelyn Morales MD [address] [place], [place] [phone] (Routine) Status Reason Specialty Diagnoses / Referred By Referred To Procedures Contact Contact New Request Speech-Language Diagnoses Dyspnea on exertion Jalen, Pathologist Procedures CONSULT SPEECH (DYSPHAGIA) Madelyn Morales MD [address] [place] [address] Reason for Visit Reason Comments Follow-up dyspnea and cough Encounter Details Date Type Department Care Team Description 02/23/2019 Office Visit [facility] Madelyn Rao MD [address] [place] [address], [place] [address] [phone] Dyspnea on exertion Pulmonary- [facility] E[facility]ch Cabrera MD [address] [place] [phone] (Primary Dx) [facility] Clinics [address] [place] [address] Allergies Active Allergy Reactions Severity [...] respiratory abnormality 03/23/2011 Overview: ICD10 Diagnosis Term Concrete Products Dispatcher Utility Surgical aftercare, musculoskeletal system 08/01/2009 GERD (gastroesophageal reflux disease) 08/01/2009 Other voice and resonance disorders 12/21/2008 Enlarged prostate without lower urinary tract symptoms (luts) 12/07/2008 Overview: ICD10 Diagnosis Term Concrete Products Dispatcher Utility Fasciitis 11/22/2008 Overview: ICD10 Diagnosis Term Concrete Products Dispatcher Utility Arthropathy associated with another systemic disease 11/22/2008 Overview: ICD10 Diagnosis Term Concrete Products Dispatcher Utility Degeneration of intervertebral disc, site unspecified Overview: 2 to trauma Malignant neoplasm of kidney excluding renal pelvis Overview: left nephrectomy in ICD10 Diagnosis Term Concrete Products Dispatcher Utility Essential hypertension Overview: ICD10 Diagnosis Term Concrete Products Dispatcher Utility Backache Overview: back surgeries in , ICD10 Diagnosis Term Concrete Products Dispatcher Utility Hip joint replacement by other means Overview: B/L Asbestosis Overview: ICD10 Diagnosis Term Concrete Products Dispatcher Utility Gout Overview: ICD10 Diagnosis Term Concrete Products Dispatcher Utility HLD (hyperlipidemia) Overview: ICD10 Diagnosis Term Concrete Products Dispatcher Utility documented as of this encounter (statuses [...] CDT documented in this encounter Progress Notes Demario Sin MD - 02/23/2019 3:00 PM CDTI personally examined the patient on 02/23/[address] Clyde Pacheco's note as written. Iactively participated in the decision-making process. Please see the fellow's note for additional details. 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 // Chronic hypercapnic respiratory failure likely due to chronic neuromuscular disease. Plan After sleep study and pfts with abg will see if patient qualifies for RAD and or BPAP. // Occupational exposure to asbestos [address] chest from 2015 do not show evidence of pulmonary fibrosis [...] Fellow Pulmonary & Critical Care Medicine Pager [phone] documented in this encounter Plan of Treatment Date Type Specialty Care Team Description 04/25[facility]2019 [facility] [id number] [place], [place] [phone] 07/07/2019 Office Visit Pulmonary Disease Fellow, Pulmonary Name Type Priority Associated Diagnoses Date/Time XR CHEST 2 VW IMAGING Routine Dyspnea on exertion 02/23/2019 5:21 PM CDT N-TERMINAL PRO-BNP LAB Routine Dyspnea on exertion 02/23/2019 4:53 PM CDT CBC WITH DIFF LAB Routine Dyspnea on exertion 02/23/2019 4:53 PM CDT COMP. METABOLIC PANEL LAB Routine Dyspnea on exertion 02/23/2019 4:53 PM (39075) CDT CBC WITH DIFFERENTIAL LAB Routine Dyspnea on exertion 02/23/2019 4:53 PM CDT Name Type Priority Associated Order Schedule Diagnoses DIAGNOSTIC PROCEDURE PULMONARY FUNCTION Routine Dyspnea on exertion Expected: Preferred Location: LAB 02/23/2019, [facility] Expires: 08/26/2020 SLEEP STUDY, PROCEDURES Routine Dyspnea on exertion Expected: ATTENDED 02/23/2019, Expires: 08/26/2020 XR CHEST 2 VW IMAGING Routine Dyspnea on exertion Expected: 02/23/2019, Expires: 02/24/2020 Health Maintenance Due Date Last Done Comments [...] of this encounter Implants Implanted Type Area Cancer Researcher Device Identifier Shelf Expiration Model / Serial Date / Lot Femur Femur Hip HIP Teofilo TEOFILO documented as of this encounter Results Not on filedocumented in this encounter Visit Diagnoses Diagnosis Dyspnea on exertion - Primary Other dyspnea and respiratory abnormality documented in this encounter Insurance Payer Benefit Plan / Subscriber ID Effective Phone Address Type Group Dates [facility] [id number] 2017-[facility] Medicare [facility] HEALTHCARE - HEALTHCARE nt PPO MANAGED MEDICARE GOLD MEDICARE documented as of this encounter Advance Directives Type Date Recorded Patient Nurses Superintendent Explanation Advance Directives and 08/04/2013 10:53 AM Living Will Power of Spray Crew Kina Cruz
--- OUTSIDE RECORDS SUMMARY | 2019-06-21 15:41 | XMS REPORT ---
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 Problem Uncontrolled type 2 diabetes E11.65 Active mellitus with hyperglycemia Problem Chronic kidney disease, unspecified N18.9 Active CKD stage Problem Hypertension, unspecified type I10 Active Assessment Uncontrolled type 2 diabetes E11.65 Active mellitus with hyperglycemia Problem Hyperlipidemia, unspecified E78.5 Active hyperlipidemia type Problem Type 2 diabetes mellitus with E11.21 Active diabetic nephropathy Problem Chronic constipation K59.09 Active Problem Long-term insulin use Z79.4 Active Problem Bipolar affective disorder, F31.9 Active remission status unspecified Problem Depression with anxiety F41.8 Active Medications Medication Code Code Instructions Start End Status Dosage System Date Date Pen [place] [facility] 67512885289 32G X 4 MM Jun 12, Active 1 pen subcutaneously 2019 needle twice a day Pen [place] [facility] 90915625001 32G X 5 MM Jul 14, Inactive (TRUE PLUS subcutaneous Use 2018 PEN with Levemir NEEDLES) as FlexTouch BID directed Lancets [facility] [id number] - in vitro three Jun 12, Active 1 lancet times a day 2019 Results No Known Results Summary Purpose eClinicalWorks Submission
--- OUTSIDE RECORDS SUMMARY | 2019-06-21 15:41 | XMS REPORT ---
:1955 Author Organization eClinicalWorks Care Team Providers Name Role Phone Bryant Loera Provider Role Unavailable Allergies, Adverse Reactions, Alerts Substance Reaction Event Type N.K.D.A. Info Not Available Non Drug Allergy Problems Problem Type Condition Code Onset Dates Condition Status Assessment Anemia, unspecified type D64.9 Active Assessment Elevated total protein R77.8 Active Assessment Elevated alkaline phosphatase level R74.8 Active Assessment Benign prostatic hyperplasia with N40.1 Active lower urinary tract symptoms, symptom details unspecified Assessment Left carotid artery stenosis I65.22 Active Assessment History of CVA (cerebrovascular Z86.73 Active accident) Assessment Type 2 diabetes mellitus with E11.21 Active diabetic nephropathy Problem History of CVA (cerebrovascular Z86.73 Active accident) Assessment Chronic kidney disease, unspecified N18.9 Active CKD stage Problem Chronic constipation K59.09 Active Assessment Bipolar affective disorder, F31.9 Active remission status unspecified Problem Bipolar affective disorder, F31.9 Active remission status unspecified Problem Uncontrolled type 2 diabetes E11.65 Active mellitus with hyperglycemia Problem Hyperlipidemia, unspecified E78.5 Active hyperlipidemia type Problem Benign prostatic hyperplasia with N40.1 Active lower urinary tract symptoms, symptom details unspecified Problem Left carotid artery stenosis I65.22 Active Assessment Hyperlipidemia, unspecified E78.5 Active hyperlipidemia type Assessment Hypertension, unspecified type I10 Active Problem Constipation, unspecified K59.00 Active constipation type Assessment Depression with anxiety F41.8 Active Problem Hypertension, unspecified type I10 Active Problem 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 Problem Insomnia, unspecified type G47.00 Active Problem Chronic kidney disease, unspecified N18.9 Active CKD stage Problem Type 2 diabetes mellitus with E11.21 Active diabetic nephropathy Assessment Uncontrolled type 2 diabetes E11.65 Active mellitus with hyperglycemia Assessment Constipation, unspecified K59.00 Active constipation type Problem Chronic pain syndrome G89.4 Active Problem Polyarthralgia M25.50 Active Problem Long-term insulin use Z79.4 Active Problem Depression with anxiety F41.8 Active Medications Medication Code Code Instructions Start End Status Dosage System Date Date Venlafaxine HCl [facility] 45840180362 75 MG Orally Active 1 capsule ER Once a day with food MetFORMIN HCl [facility] 95337171482 500 MG Orally Active 1 tablet ER BID with evening meal Gemfibrozil [facility] 91968481308 600 MG Orally Inactive 1 tablet Once a day Plavix [facility] 73439567245 75 MG Orally Active 1 tablet Once a day Blood Glucose ND 0 as directed Jul 22, Active as Test Strip Test BS three 2017 directed times daily (DISPENSE BLOOD TEST STRIPS OF RECORD) D3 Adult [facility] 32364510724 1000 UNIT Orally Active 1 tablet Once a day Baclofen [facility] 08939159794 10 MG Orally Active 1 tablet Three times a with food day or milk Levemir [facility] 98966016145 100 UNIT/ML Active 20 units FlexTouch Subcutaneous Twice daily Indocin [facility] [address]-34 25 MG Orally Active 1 capsule Twice a day with food or milk Atorvastatin [facility] 87007858898 80 MG Orally Active 1 tablet Calcium Once a day Aspir-Low [facility] 32700739461 81 MG Orally Active 1 tablet Once a day Sotalol HCl [facility] 69529937806 80 MG Orally Active 1 tablet Once a day Lancets [facility] 55845520132 - in vitro three Jun 12, Active 1 lancet times a day 2019 One Touch Ultra [facility] 703403250369 1 In Vitro twice December 01, Active 1 strip to Test Strips daily 2019 test blood glucose Aripiprazole [facility] 40593567530 5 MG Orally Once Inactive 1 tablet a day Atorvastatin [facility] 71252010100 80 MG Orally Active 1 tablet Calcium Once a day Pen [place] [facility] 30247699902 32G X 4 MM Jun 12, Active 1 pen subcutaneously 2019 needle twice a day Desipramine HCl [facility] 06841445423 10 MG Orally Active 1 tablet Once a day R48-Tuezeb [facility] 15888610890 1 MG Orally Active as directed Gabapentin [facility] 53592498498 600 MG Orally Active as TID directed Sotalol HCl [facility] 67745648375 80 MG Orally Active 1 tablet Once a day Results No Known Results Summary Purpose eClinicalWorks Submission
--- OUTSIDE RECORDS SUMMARY | 2019-06-21 15:41 | XMS REPORT ---
[...] Medications Medication Code Code Instructions Start End Date Status Dosage System Date Levemir [facility] [id number] 100 UNIT/ML Active 20 units FlexTouch Subcutaneous Twice a day Results No Known Results Summary Purpose eClinicalWorks Submission
[2019-06-21 17:22] LABS: Absolute Lymphocytes (CBC) 2.1 K/uL (0.7-4.9); Basophils % 0.8 % (0-1.3); Hematocrit 35.8 % (39.6-49.0); Lymphocytes % 26.6 % (15.3-44.8); MPV 8.7 fL (7.6-11.3); RBC Red Blood Cell Count 3.93 M/uL (4.33-5.43)
[2019-06-21 17:41] LABS: Bilirubin Direct 0.2 mg/dL (0-0.2); Bilirubin Total 0.4 mg/dL (0.2-1.0); Potassium 4.7 mmol/L (3.5-5.1); Protein, Total 9.2 g/dL (6.4-8.2)
--- NOTE | 2019-06-21 18:36 | RAD REPORT ---
EXAM DESCRIPTION: CT - Abdomen Pelvis W Contrast - 06/21/2019 6:19 pm CLINICAL HISTORY: Abdominal pain COMPARISON: September 2018 and 2015 TECHNIQUE: Computed axial tomography of the abdomen pelvis was obtained. 100 cc Isovue-300 was admin istered intravenously. All CT scans are performed using dose optimization technique as appropriate and may include automated exposure control or mA/KV adjustment according to patient size. FINDINGS: The liver, spleen, pancreas, right adrenal and right kidney appear unremarkable. Left nephrectomy. Small left adrenal adenoma There is no evidence of diverticulitis. Normal appendix Spondylosis involves the lumbar spine resulting spinal stenosis. Atrophy of the left ileo psoas muscle is present. A portion of the left lateral abdominal wall muscul ature is absent within the lower abdomen. IMPRESSION: No acute abnormality is displayed.
[2019-06-21] MEDS ORDERED: BISACODYL 10 MG RECTAL SUPP ONE (18:50)
[2019-06-21] MEDS ORDERED: MAGNESIUM CITRATE 300 ML BOT ONE (18:51)
[2019-06-21] MEDS ORDERED: FLEET ENEMA ADULT PR ONE (18:51)
--- NOTE | 2019-06-21 20:59 | ER ---
Nurse's Notes [facility] Name: David Lopez Age: 64 yrs Sex: Male : 1955 Arrival Date: 06/21/2019 Time: 15:38 Bed 30 Private MD: Diagnosis: Constipation, unspecified Presentation: 06/21 15:58 Presenting complaint: states: "I took him to Dr. Loera Wednesday, he hasn't been aj1 wanting to eat for about 5 days, and today he didn't want anything not even his Glucerna and last night he was throwing up pretty bad. He has not been able to go to the bathroom for 4 days and his stomach hurts. Transition of care: patient was not received from another setting of care. Onset of symptoms was 2018. Risk Assessment: Do you want to hurt yourself or someone else? Patient reports no desire to harm self or others. Initial Sepsis Screen: Does the patient meet any 2 criteria? No. Patient's initial sepsis screen is negative. Does the patient have a suspected source of infection? Yes: Acute abdominal pain. Care prior to arrival: None. 15:58 Method Of Arrival: Wheelchair aj1 15:58 Acuity: LEANNA 3 aj1 Triage Assessment: 16:07 General: Appears in no apparent distress. comfortable, Behavior is calm, cooperative, aj1 appropriate for age. Pain: Complains of pain in abdomen Pain currently is 8 out of 10 on a pain scale. Neuro: Level of Consciousness is awake, alert, obeys commands, Oriented to person, place, time, situation. Cardiovascular: Patient's skin is warm and dry. Respiratory: Airway is patent Respiratory effort is even, unlabored, Respiratory pattern is regular, symmetrical. GI: Reports lower abdominal pain, upper abdominal pain, constipation, nausea. Historical: - Allergies: 16:07 No Known Allergies; aj1 - Home Meds: 16:07 gabapentin 600 mg Oral tab 1 tab 3 times per day [Active]; sotalol 80 mg Oral tab 1 tab aj1 2 times per day [Active]; lubiprostone oral oral 2 times per day [Active]; metformin 500 mg Oral Tb24 1 tab 2 times per day [Active]; desipramine 10 mg Oral tab 1 tab 3 times per day [Active]; venlafaxine 75 mg oral cp24 1 cap once daily [Active]; atorvastatin 80 mg oral tab 1 tab once daily [Active]; buprenorphine HCl buccal buccal 2 times per day [Active]; clopidogrel 75 mg oral tab 1 tab once daily [Active]; baclofen 10 mg Oral tab 1 tab twice daily [Active]; indomethacin 25 mg Oral cap 1 cap 2 times per day [Active]; aspirin 81 mg Oral chew 1 tab once daily [Active]; Humulin R [Active]; Levemir 100 unit/mL subcutaneous soln 20 units twice a day [Active]; Amitiza 8 mcg oral cap 1 cap 2 times per day [Active]; - PMHx: 16:07 CVA; Diabetes - NIDDM; Hypertension; Parkinsons; aj1 - Immunization history:: Flu vaccine is not up to date. - Social history:: Smoking status: Patient/guardian denies using tobacco. - Ebola Screening: : Patient denies travel to an Ebola-affected area in the 21 days before illness onset. Screenin:25 Abuse screen: Denies threats or abuse. Denies injuries from another. Nutritional rv screening: No deficits noted. Tuberculosis screening: No symptoms or risk factors identified. Fall Risk None identified. Assessment: 18:00 General: Appears in no apparent distress. comfortable, Behavior is calm, cooperative. rv 18:00 Pain: Denies pain. Neuro: Level of Consciousness is awake, alert, obeys commands, rv Oriented to person, place, time, situation. Cardiovascular: Patient's skin is warm and dry. Respiratory: Airway is patent. GI: Bowel sounds present X 4 quads. Abd is soft and non tender X 4 quads. : No signs and/or symptoms were reported regarding the genitourinary system. EENT: No signs and/or symptoms were reported regarding the EENT system. Derm: Skin is intact. Musculoskeletal: No signs and/or symptoms reported regarding the musculoskeletal system. Vital Signs: 16:07 BP 106 / 86; Pulse 66; Resp 18; Temp 97.3; Pulse Ox 100% on R/A; Weight 61.23 kg (R); aj1 Height 5 ft. 4 in. (162.56 cm) (R); Pain 8/10; 16:30 BP 115 / 79 LA (/reg); Pulse 59; Pulse Ox 98% on R/A; jp3 18:26 BP 118 / 73; Pulse 57; Resp 16; Pulse Ox 99% on R/A; rv 19:30 BP 116 / 76; Pulse 61; Resp 16; Pulse Ox 100% on R/A; rv 20:30 BP 118 / 71; Pulse 58; Resp 15; Pulse Ox 100% on R/A; rv 21:00 BP 121 / 78; Pulse 66; Resp 16; Pulse Ox 100% on R/A; rv 16:07 Body Mass Index 23.17 (61.23 kg, 162.56 cm) aj1 ED Course: 15:38 Patient arrived in ED. as 16:01 Triage completed. aj1 16:07 Arm band placed on Patient placed in waiting room, Patient notified of wait time. aj1 16:45 Patient maintains SpO2 saturation greater than 95% on room air. jp3 16:46 Mustapha Justice PA is PHCP. jmm 16:46 Reshma Fox MD is Attending Physician. [facility] 17:00 Marion Olivares, BERNY is Primary Nurse. 17:00 Radiology exam delayed due to lab results not completed at this time. (BUN/Creatinine). az 17:09 Initial lab(s) drawn, by me, sent to lab. Inserted saline lock: 22 gauge in right jp3 antecubital area, using aseptic technique. Blood collected. 17:10 Bed in low position. Call light in reach. Side rails up X 1. Warm blanket given. Verbal jp3 reassurance given. campus monitor on. Pulse ox on. NIBP on. 18:21 CT Abd/Pelvis - IV Contrast Only In Process Unspecified. EDMS 20:58 Juan Carlos Morgan MD is Referral Physician. jmm 21:18 No provider procedures requiring assistance completed. IV discontinued, intact, rv bleeding controlled, No redness/swelling at site. Pressure dressing applied. Administered Medications: 19:19 Drug: Magnesium Citrate Liquid 300 ml Route: PO; rv 21:19 Follow up: Response: No adverse reaction rv 19:19 Drug: Fleet Bisacodyl Enema (10 mg/30mL) 10 mg Route: NE; rv 21:19 Follow up: Response: No adverse reaction rv 20:07 CANCELLED (Duplicate Order): Fleet Enema 133 ml NE once rv Outcome: 20:59 Discharge ordered by . jmm 21:19 Discharged to home via wheelchair, with family. rv 21:19 Condition: good 21:19 Discharge instructions given to patient, family, Instructed on discharge instructions, follow up and referral plans. medication usage, Demonstrated understanding of instructions, follow-up care, medications, Prescriptions given X 1. 21:19 Patient left the ED. rv Signatures: Dispatcher [employer] EDSimona Gómez RN RN aj1 Mustapha Justice PA PA jmm Martinez, Amelia as Smirch, Shelby, BERNY RN Kailash Hackett Ronaldo, RN RN rv Andrews Garcia jp3
--- NOTE | 2019-06-21 21:00 | EDPHYS ---
Physician Documentation [facility] Name: David Lopez Age: 64 yrs Sex: Male : 1955 Arrival Date: 06/21/2019 Time: 15:38 Bed 30 Private MD: ED Physician Reshma Fox HPI: 06/21 16:54 This 64 yrs old Male presents to ER via Wheelchair with complaints of jmm Constipation, Decreased Appetite. 16:54 The patient presents with abdominal pain. Onset: The symptoms/episode began/occurred jmm gradually, 5 day(s) ago. The symptoms do not radiate. Associated signs and symptoms: Pertinent positives: constipation, nausea, Pertinent negatives: vomiting. The symptoms are described as achy, crampy. Modifying factors: The symptoms are alleviated by nothing, the symptoms are aggravated by nothing. Historical: - Allergies: 16:07 No Known Allergies; aj1 - Home Meds: 16:07 gabapentin 600 mg Oral tab 1 tab 3 times per day [Active]; sotalol 80 mg Oral tab 1 tab aj1 2 times per day [Active]; lubiprostone oral oral 2 times per day [Active]; metformin 500 mg Oral Tb24 1 tab 2 times per day [Active]; desipramine 10 mg Oral tab 1 tab 3 times per day [Active]; venlafaxine 75 mg oral cp24 1 cap once daily [Active]; atorvastatin 80 mg oral tab 1 tab once daily [Active]; buprenorphine HCl buccal buccal 2 times per day [Active]; clopidogrel 75 mg oral tab 1 tab once daily [Active]; baclofen 10 mg Oral tab 1 tab twice daily [Active]; indomethacin 25 mg Oral cap 1 cap 2 times per day [Active]; aspirin 81 mg Oral chew 1 tab once daily [Active]; Humulin R [Active]; Levemir 100 unit/mL subcutaneous soln 20 units twice a day [Active]; Amitiza 8 mcg oral cap 1 cap 2 times per day [Active]; - PMHx: 16:07 CVA; Diabetes - NIDDM; Hypertension; Parkinsons; aj1 - Immunization history:: Flu vaccine is not up to date. - Social history:: Smoking status: Patient/guardian denies using tobacco. - Ebola Screening: : Patient denies travel to an Ebola-affected area in the 21 days before illness onset. ROS: 16:54 Constitutional: Negative for fever, chills, and weight loss, Cardiovascular: Negative jm for chest pain, palpitations, and edema, Respiratory: Negative for shortness of breath, cough, wheezing, and pleuritic chest pain. 16:54 Abdomen/GI: Positive for abdominal pain, constipation. 16:54 All other systems are negative. Exam: 16:54 Constitutional: This is a well developed, well nourished patient who is awake, alert, jmm and in no acute distress. Head/Face: atraumatic. Eyes: EOMI, no conjunctival erythema appreciated ENT: Moist Mucus Membranes Neck: Trachea midline, Supple Chest/axilla: Normal chest wall appearance and motion. Cardiovascular: Regular rate and rhythm. No edema appreciated Respiratory: Normal respirations, no respiratory distress appreciated 16:54 Back: Normal ROM Skin: General appearance color normal MS/ Extremity: Moves all extremities, no obvious deformities appreciated, no edema noted to the lower extremities Neuro: Awake and alert, normal gait Psych: Behavior is normal, Mood is normal, Patient is cooperative and pleasant 16:54 Abdomen/GI: Inspection: abdomen appears normal, Bowel sounds: normal, Palpation: abdomen is soft and non-tender, in all quadrants. Vital Signs: 16:07 BP 106 / 86; Pulse 66; Resp 18; Temp 97.3; Pulse Ox 100% on R/A; Weight 61.23 kg (R); aj1 Height 5 ft. 4 in. (162.56 cm) (R); Pain 8/10; 16:30 BP 115 / 79 LA (/reg); Pulse 59; Pulse Ox 98% on R/A; jp3 18:26 BP 118 / 73; Pulse 57; Resp 16; Pulse Ox 99% on R/A; rv 19:30 BP 116 / 76; Pulse 61; Resp 16; Pulse Ox 100% on R/A; rv 20:30 BP 118 / 71; Pulse 58; Resp 15; Pulse Ox 100% on R/A; rv 21:00 BP 121 / 78; Pulse 66; Resp 16; Pulse Ox 100% on R/A; rv 16:07 Body Mass Index 23.17 (61.23 kg, 162.56 cm) aj1 MDM: 16:54 Patient medically screened. [facility] 20:57 Data reviewed: vital signs, nurses notes. Counseling: I had a detailed discussion with [facility] the patient and/or guardian regarding: the historical points, exam findings, and any diagnostic results supporting the discharge/admit diagnosis, lab results, radiology results, the need for outpatient follow up, to return to the emergency department if symptoms worsen or persist or if there are any questions or concerns that arise at home. 20:57 ED course: Patient had a large bowel movement in the ED. Patient is advised to follow jm up with GI for reevaluation. patient was otherwise given strict return precautions. patient understood and agrees with the plan of care. . 06/21 16:55 Order name: Basic Metabolic Panel; Complete Time: 18:01 [facility] 06/21 16:55 Order name: CBC with Diff; Complete Time: 17:50 [facility] 06/21 16:55 Order name: Creatinine for Radiology; Complete Time: 17:50 [facility] 06/21 16:55 Order name: Hepatic Function; Complete Time: 18:01 [facility] 06/21 16:55 Order name: Lipase; Complete Time: 18:01 [facility] 06/21 16:55 Order name: CT Abd/Pelvis - IV Contrast Only; Complete Time: 18:42 [facility] 06/21 16:55 Order name: IV Saline Lock; Complete Time: 17:10 [facility] 06/21 16:55 Order name: Labs collected and sent; Complete Time: 17:10 [facility] Administered Medications: 19:19 Drug: Magnesium Citrate Liquid 300 ml Route: PO; rv 21:19 Follow up: Response: No adverse reaction rv 19:19 Drug: Fleet Bisacodyl Enema (10 mg/30mL) 10 mg Route: TN; rv 21:19 Follow up: Response: No adverse reaction rv 20:07 CANCELLED (Duplicate Order): Fleet Enema 133 ml TN once rv Disposition: 06/21/19 20:59 Discharged to Home. Impression: Constipation, unspecified. - Condition is Stable. - Discharge Instructions: Constipation, Adult. - Prescriptions for Miralax 17 gram/dose Oral - take 1 packet by ORAL route once daily dilute powder in 8 ounces of water or juice; 1 Pack. - Medication Reconciliation Form, Thank You Letter, Antibiotic Education, Prescription Opioid Use form. - Follow up: Juan Carlos Morgan MD; When: 2 - 3 days; Reason: Recheck today's complaints, Continuance of care, Re-evaluation by your physician. Signatures: Dispatcher [employer] Simona Hogan RN RN aj1 Mustapha Justice PA PA jmm Vicente, Ronaldo, BERNY RN rv Corrections: (The following items were deleted from the chart) 20:07 20:06 Fleet Enema 133 ml TN once ordered. rv rv 21:19 20:59 06/21/2019 20:59 Discharged to Home. Impression: Constipation, unspecified. rv Condition is Stable. Forms are Medication Reconciliation Form, Thank You Letter, Antibiotic Education, Prescription Opioid Use. Follow up: Juan Carlos Morgan; When: 2 - 3 days; Reason: Recheck today's complaints, Continuance of care, Re-evaluation by your physician. luisito
[2019-06-21 23:59] VITALS: TEMP 97.3
[2019-06-22 00:31] VITALS: O2SAT 100
[2019-06-22 00:34] VITALS: BP 121/78
== END 2019-06-21 21:19 | disposition home or self-care (01) ==
LOC: ER 15:37
DX: K59.00 Constipation, unspecified (principal); I10 Essential (primary) hypertension; G20 Parkinson's disease; E11.9 Type 2 diabetes mellitus without complications; Z79.82 Long term (current) use of aspirin; Z79.4 Long term (current) use of insulin
CPT/HCPCS: 85025; 80048; 36415; 80076; 83690; 74177; Q9967

== ENCOUNTER 2020-11-14 10:16 | Observation (INO) | payer OTHER ==
--- OUTSIDE RECORDS SUMMARY | 2020-11-14 10:19 | XMS REPORT | Continuity of Care Document ---
:1955 Author Organization [facility] t Address [facility] [place] [address] Care Team Providers Name Role Phone Conner Loera DO Primary Care Physician Sharon Moore MD Attending Clinician Lisa IGNACIO Attending Clinician Clyde Pacheco MD Attending Clinician Andrew Rao MD Attending Clinician Payers Payer Name Policy Type Policy Effective Date Expiration Date Sour ce Number UHC MEDICAREUHC [id number] 2018 [place] MEDICARE 00:00:00 Restoration [id number] /08/2018-PresentHM O Problems Condition Condition Condition Status Onset Resolution Last Treating Co mments Source Name Details Category Date Date Treatment Clinician Date Cervical Cervical Disease Active [place] disc disc 12-08 Methodi disease disease 00:00: st 00 Lumbar Lumbar Disease Active [place] disc disc 12-08 [facility] disease disease 00:00: st 00 Bradycardi Bradycardi Disease Active [place] a a 12-08 Methodi 00:00: st 00 Acidosis Acidosis Disease Active [place] 12-08 Methodi 00:00: st 00 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 00:00: st sm sm 00 Allergies, Adverse Reactions, Alerts Allergy Allergy Status Severity Reaction(s) Onset Inactive Treating Comm ents Source Name Type Date Date Clinician No Known DA Active U 2011-08 [facility] 0 Clear Allergie 00:00: Cabrera s 00 [facility] Social History Social Habit Start Date Stop Date Quantity Comments Source Exposure to Not sure [place] Metho dist SARS-CoV-2 (event) Alcohol intake 2019-08-22 2019-08-22 Current [facility] thodist 00:00:00 00:00:00 non-drinker of alcohol (finding) Tobacco use and 2019-08-22 2019-08-22 Never used [facility] ethodist exposure 00:00:00 00:00:00 [birth year] [facility] ethodist 00:00:00 00:00:00 Smoking Status Start Date Stop Date Source Never smoker [place] Methodis t Medications Ordered Filled Start Stop Current Ordering Indication Dosage Frequency Signature Comments Components Source Medication Medication Date Date Medication? Clinician (SIG) Name Name Humulin R Humulin R 2019- Yes Bryant [address] [facility] 8-07 [place] PRN for BG [facility] - 00:[facility]: >200 1 hr Memoria 00 after l meals Outpati ent Clinics baclofen Yes Paraparesis 10mg Q.5D Take 1 [place] (LIORESAL) 3-11 of both tablet (10 Methodi 10 MG 00:00: lower limbs mg total) st tablet 00 (HCC) by mouth 2 (two) times a day. insulin 2019- Yes Q.5D Inject [place] lispro 1-21 under the Methodi (HumaLOG) 09:04: skin 2 st 100 unit/mL 33 (two) injection times a day before meals. (PER SLIDING SCALE) gabapentin 2020-0 Yes 600mg Q.[id number] Take 600 [place] (NEURONTIN) 1-21 [id number] mg by M ethodi 600 mg 09:04: 3D mouth 3 st tablet 33 (three) times a day. tamsulosin 2020-0 Yes .4mg QD Take 0.4 Ana [place] (FLOMAX) 1-21 mg by Methodi 0.4 mg 09:04: mouth st capsule,ext 33 every ended morning. release 24hr metFORMIN 2020-0 Yes 500mg Q.[id number] Take 500 [place] (GLUCOPHAGE 1-21 [id number] mg by M ethodi ) 500 mg 09:04: 3D mouth 3 st tablet 33 (three) times a day. cyanocobala 2020-0 Yes 1000ug QD Take 1,000 [place] min 1000 1-21 mcg by Methodi MCG tablet 09:04: mouth st 33 every morning. clopidogrel 2020-0 Yes 75mg QD Take 75 mg [place] (PLAVIX) 75 1-21 by mouth Meth ivette mg tablet 09:04: daily. st 33 gemfibrozil 2020-0 Yes 600mg Q.5D Take 600 [place] (LOPID) 600 1-21 mg by Methodi MG tablet 09:04: mouth 2 st 33 (two) times a day before meals. atorvastati 2020-0 Yes 80mg QD Take 80 mg Byrd n (LIPITOR) 1-21 by mouth Meth ivette 80 MG 09:04: daily. st tablet 33 aspirin 2020-0 Yes 81mg QD Take 81 mg [place] (ECOTRIN) 1-21 by mouth Method i 81 MG 09:04: daily. st enteric 33 coated tablet docusate 2020-0 Yes Take by [place] sodium 1-21 mouth. Methodi (STOOL 09:04: st SOFTENER 33 ORAL) buprenorphi 2020-0 Yes 8mg Q.5D 8 mg 2 [place] ne HCL -06 (two) Methodi (SUBUTEX) 8 00:00: times a st mg tablet, 00 day. sublingual Pen [place] Pen Cresson 2018-08 Yes Bryant [address] [facility] 08-12 [facility] needle [facility] - 00:00: Memoria 00 l Outpati ent Clinics Lancets Lancets 2018-08 Yes Bryant [address] 1-11 Loera [facility] - 00:00: Memoria 00 l [facility] Clinics desipramine Yes 10mg QD Take 10 mg [place] (NOPRAMIN) 8-02 by mouth Metho di 10 MG 00:00: nightly. st tablet 00 sotalol Yes 80mg QD Take 80 mg [place] (BETAPACE) 7-31 by mouth Metho di 80 MG 00:00: daily. st tablet 00 LEVEMIR Yes [place] FLEXTOUCH 7-31 Methodi U-100 00:00: st INSULN 100 00 unit/mL (3 mL) insulin pen EMBEDA 50-2 Yes [place] mg 7-24 Methodi capsule,ora 00:00: st l 00 only,ext.re l shelby venlafaxine Yes 37.5mg QD Take 37.5 [place]rd XR 7-19 mg by Methodi (EFFEXOR-XR 00:00: mouth st ) 37.5 MG 00 daily. 24 hr capsule TRUEPLUS Yes [place]rd PEN NEEDLE 6-27 Methodi 32 gauge x 00:00: st 5/32" 00 needle One Touch One Touch Yes Bryant [address] [facility] Ultra Test Ultra Test 5-02 Loera test blood [facility] - Strips Strips 00:00: glucose Memori a 00 l [facility] ent Clinics sertraline Yes 1{tbl} QD Take 1 Ana ston (ZOLOFT) 3-12 tablet by Method i 100 MG 00:00: mouth st tablet 00 daily. Blood Blood 2017-08 Yes Bryant as [facility] Glucose Glucose 2-21 Loera directed Luke s - Test Strip Test Strip 00:00: (DISPENSE Memoria 00 BLOOD TEST l STRIPS OF Outpati RECORD) ent Clinics [id number] Yes Bryant as C HI [facility] Loera directed [facility] Aripiprazol Aripiprazol Yes Bryant [address] e e Loera [facility] Levemir Levemir Yes Bryant [address] FlexTouch FlexTouch Loera [facility] - [facility] Atorvastati Atorvastati Yes Bryant [address] [facility] n Calcium n Calcium Loera [facility] Gemfibrozil Gemfibrozil Yes Bryant [address] Loera [facility] Baclofen Baclofen Yes Bryant [address] Loera with food [facility] - or milk Memoria l [facility] ent Clinics Sotalol HCl Sotalol HCl Yes Bryant [address] Loera [facility] Aspir-Low Aspir-Low Yes Bryant [address] Loera [facility] MetFORMIN MetFORMIN Yes Bryant [address] HCl ER HCl ER Loera with [facility] - evening Memoria meal l [facility] ent Clinics OneTouch OneTouch Yes Bryant USE [address] [facility] [facility] Ultra Ultra Loera STRIP TO [facility] - TEST BLOOD Memoria GLUCOSE l TWICE [facility] ent Clinics Venlafaxine Venlafaxine Yes Bryant [address] HCl ER HCl ER Loera with food [facility] Gabapentin Gabapentin Yes Bryant as C [facility] directed [facility] Plavix Plavix Yes Bryant TAKE [address] [facility] Loera TABLET BY [facility] - MOUTH Memoria DAILY l [facility] MetFORMIN MetFORMIN Yes Bryant TAKE [address] HCl ER HCl ER Loera TABLET BY [facility] - MOUTH Memoria TWICE l DAILY [facility] Indocin Indocin Yes Bryant [address] Loera with food [facility] - or milk Memoria l [facility] Clinics Desipramine Desipramine Yes Bryant [address] [facility] HCl HCl Loera [facility] D3 Adult D3 Adult Yes Bryant [address] Loera [facility] Procedures Procedure Date / Time Performed Performing Clinician [facility] e CT CHEST WO CONTRAST 2020-11-07 13:49:00 Arvind Moore Plan of Care Planned Activity Planned Date Details Comments Source Future Scheduled 2021-03-02 INFLUENZA VACCINE Marato andrew [facility] Test 00:00:00 [code = INFLUENZA VACCINE] Future Scheduled 2006 COLONOSCOPY SCREENING Alton mendoza [facility] 00:00:00 [code = COLONOSCOPY SCREENING] Future Scheduled 2006 SHINGLES VACCINES (#1) H jennifer [facility] Test 00:00:00 [code = SHINGLES VACCINES (#1)] Future Scheduled 1974 Hepatitis C screening [place] [facility] Test 00:00:00 (procedure) [code = 838836074] Future Scheduled 1972 COVID-19 VACCINE (1) Ana ston [facility] 00:00:00 [code = COVID-19 VACCINE (1)] Future Scheduled 1966 DIABETES: RETINAL EYE [place] [facility] 00:00:00 EXAM [code = DIABETES: RETINAL EYE EXAM] Future Scheduled 1966 DIABETIC FOOT EXAM [place] [facility] 00:00:00 [code = DIABETIC FOOT EXAM] Future Scheduled 1966 URINE MICROALBUMIN [place] [facility] Test 00:00:00 [code = URINE MICROALBUMIN] Encounters Start End Encounter Admission Attending Care Care Encounter Source Date/Time Date/Time Type Type Clinicians Facility Department ID 2020-11-07 2020-11-07 Outpatient WEN [facility] [id number] [place] 00:00:00 00:00:00 ARVIND Reed [facility] 2020-10-15 2020-10-15 Outpatient [facility] [id number] [facility] 00:[facility] 2020-09-25 2020-09-25 Outpatient [facility] [id number] [facility] [place]te 00:00:00 00:00:00 [facility] 2020-09-23 2020-09-23 [facility] [id number] [facility] 00[facility]00[facility]00 00[facility]00[facility]00 [facility] 2020-08-23 2020-08-23 [facility] [id number] [facility] 00:00[facility]00 00[facility]00[facility]00 [facility] 2020-08-20 2020-08-20 [facility] [id number] [facility] 00:00[facility]00 00[facility]00[facility]00 [facility] 2020-08-14 2020-08-14 [facility] [id number] [facility] 00[facility]00[facility]00 00[facility]00:00 [facility] 2020-08-12 2020-08-12 Outpatient [facility] [id number] [facility] 2020-08-09 2020-08-09 Outpatient [facility] [id number] [facility] 2020-03-22 2020-03-22 [facility] [id number] 08:45:00 08:45:00 [place] [employer] [place] [facility] - Drive [facility] Medicine Medicine Outpati ent Clinics 2020-03-08 2020-03-08 [facility] [id number] 10:26:00 10:26:00 [place] [employer] [place] [facility] - Drive [facility] Medicine Outpati ent Clinics 2020-03-05 2020-03-05 [facility] [id number] 16:14:00 16:14:00 t [employer] s - Drive [facility] Medicine Outpati ent Clinics 2020-03-01 2020-03-01 [facility] [id number] 10:00:00 10:00:00 [place] [employer] [place] [facility] - Drive [facility] l Medicine Outpati ent Clinics 2020-03-01 2020-03-01 [facility] [id number] 10:00:00 10:00:00 t [employer] s - Drive [facility] Medicine Outpati ent Clinics 2020-01-10 2020-01-10 [facility] [id number] 13:52:00 13:52:00 t Specialty/U Jessica kes - Specialty rology Memori a /Urology Clinic l Clinic Outpati ent Clinics 2019-12-28 2019-12-28 [facility] [id number] 13:15:00 13:15:00 t Specialty/U Jessica kes - Specialty rology Memori a /Urology Clinic l Clinic Outpati ent Clinics 2019-11-16 2019-11-16 [facility] [id number] 15:00:00 15:00:00 t Specialty/U Jessica kes - Specialty rology Memori a /Urology Clinic l Clinic Outpati ent Clinics 2019-10-20 2019-10-20 [facility] [id number] 10:09:00 10:09:00 t Specialty/U Jessica kes - Specialty rology Memori a /Urology Clinic l Clinic Outpati ent Clinics 2019-10-18 2019-10-18 [facility] [id number] 08:30:00 08:30:00 t Specialty/U Jessica kes - Specialty rology Memori a /Urology Clinic l Clinic Outpati ent Clinics 2019-10-17 2019-10-17 [facility] [id number] 15:00:00 15:00:00 t [place] [employer] [facility] - Drive [facility] l Medicine Outpati ent Clinics 2019-10-13 2019-10-13 [facility] [id number] 15:13:00 15:13:00 t [place] [employer] [place] [facility] - Drive [facility] l Medicine Outpati ent Clinics 2019-09-15 2019-09-15 [facility] [id number] 09:00:00 09:00:00 t [place] [employer] [facility] - Drive [facility] l Medicine Outpati ent Clinics 2019-08-10 2019-08-10 [facility] [id number] 11:32:00 11:32:00 t [place] [employer] [facility] - Drive [facility] l Medicine Outpati ent Clinics 2019-07-17 2019-07-17 [facility] [id number] 16:43:00 16:43:00 t [place] [employer] [facility] - Drive [facility] l Medicine Outpati ent Clinics 2019-06-21 2019-06-21 [facility] [id number] 11:12:00 11:12:00 t [place] [employer] [facility] - Drive [facility] l Medicine Outpati ent Clinics 2019-06-19 2019-06-19 [facility] [id number] 14:00:00 14:00:00 [place] [employer] - Drive [facility] Medicine l Medicine Outpati ent Clinics 2019-06-12 2019-06-12 [facility] [id number] 15:55:00 15:55:[address] Luke s - [address] [facility] Medicine Outpati ent Clinics 2019-06-01 2019-06-01 [facility] [id number] 13:44:00 13:44:[address] Luke s - [address] [facility] Medicine l Medicine Outpati ent Clinics 2019-05-24 2019-05-24 [facility] [id number] 13:44:00 13:44:[address] Luke s - [address] [facility] Medicine Medicine Outpati ent Clinics 2019-05-18 2019-05-18 [facility] [id number] 10:50:00 10:50:[address] Luke s - [address] [facility] Medicine Outpati ent Clinics 2019-05-05 2019-05-05 Outpatient LISA, [facility] [id number] [address] [place] [address] 00:00:00 00:00:00 DEB [address] 2019-05-01 2019-05-01 [facility] [id number] 15:00:00 15:00:[address] Luke s - [address] [facility] Medicine Outpati ent Clinics 2019-04-14 2019-04-14 [facility] [id number] 16:09:00 16:09:[address] Luke s - [address] [facility] Medicine Outpati ent Clinics 2019-03-08 2019-03-08 [place] [id number] 00:00:00 00:00:00 Tara, Y HEALTH [id number] [facility] [id number] 082019-03-07 2019-03-07 Case Jalen, [facility] [id number] 00:00:00 00:00:00 Management Madelyn [facility] HE[facility] [id number] [facility] [id number] 2019-03-01 2019-03-01 [facility] [id number] 13:52:00 13:52:[address] Luke s - [address] [facility] Medicine l Medicine Outpati ent Clinics 2019-02-23 2019-02-[address] [facility] [id number] 16:56:13 23:59:00 Encounter Madelyn [facility] [id number] [facility] [id number] 2019-02-23 2019-02-23 Office [facility] [id number] 15:34:50 18:38:56 Visit [facility] [id number] [facility] [id number] 2018-12-01 2018-12-01 [facility] [id number] 10:52:00 10:52:00 [facility] Medicine Outpati ent Clinics 2018-11-29 2018-11-29 [facility] [id number] 14:45:00 14:45:[address] [facility] Medicine Medicine Outpati ent Clinics 2018-09-28 2018-09-28 [facility] [id number] 10:43:00 10:43:00 t [facility] Medicine Outpati ent Clinics 2018-08-16 2018-08-16 [facility] [id number] 12:06:00 12:06:00 t [facility] Medicine l Medicine Outpati ent Clinics 2018-07-25 2018-07-25 [facility] [id number] 10:56:00 10:56:00 t [facility] [employer] [facility] Medicine l Medicine Outpati ent Clinics 2018-07-22 2018-07-22 [facility] [id number] 01:11:00 01:11:00 t [facility] [employer] [facility] Medicine Outpati ent Clinics 2018-07-20 2018-07-20 [facility] [id number] 13:00:00 13:00:00 t Cabrera [facility] Medicine Outpati ent Clinics 2018-07-19 2018-07-19 [facility] [id number] 14:38:00 14:38:00 t [facility] Medicine Outpati ent Clinics 2018-07-15 2018-07-15 [facility] [id number] 16:01:00 16:01:00 t [facility] Medicine Outpati ent Clinics 2018-07-14 2018-07-14 [facility] [id number] 15:35:00 15:35:00 t [facility] Medicine Outpati ent Clinics 2018-04-21 2018-04-21 [facility] [id number] 09:04:00 09:04:00 [facility] Medicine Outpati ent Clinics 2018-04-20 2018-04-20 [facility] [id number] 22:17:00 22:17:00 t [facility] Medicine Outpati ent Clinics 2018-04-20 2018-04-20 [facility] [id number] 14:30:00 14:30:00 [facility] Results Test Description Test Time Test Comments Results Result [facility] e Comments CT Chest Wo 0 [facility] Contrast [address] 13:55:19 Incoming - 11/07/2020 1:58 PM CDT EXAMINATION: CT CHEST WO CONTRASTCLINICAL HISTORY:R06.02 Shortness of breath, SOBTECHNIQUE:Multiple axial images of the chest were obtained without intravenous contrast. The lack of intravenous contrast reduces the sensitivity of detecting solid organ disease and evaluating vasculature. Sagittal and coronal computerized reformatted images were also obtained.CT imaging was performed with iterative reconstruction techniques and/or automated exposure control to reduce radiation dose. COMPARISON:12/11/2016F INDINGS:1.Minor juxtapleural reticular scarring in the posterior lung bases and juxtapleural left anterior upper lobe is stable. Otherwise the lungs are clear.2.There is no pleural or pericardial effusion.3.No significant thoracic lymphadenopathy is seen.4.The heart size is normal.5.There is a stable benign 14 mm left adrenal nodule. There is no acute upper abdominal finding.6.No acute skeletal abnormalities seen.IMPRESSION:No acute cardiopulmonary disease.[id number] GLUCOSE BEDSIDE TESTING 2019-10-02 16:50:00 Test Item Value Reference Range Interpretation Comme nts GLUCOSE BEDSIDE TESTING (test code = GLUBED) 98 mg/dL 70-110 N - XR FLUOROSCOPY 0-60 [id number] 16:05:00 Name: ANABELA RUTH [facility] : 1955 Age/S: 64 / M [address] Unit #: [id number] Loc: [place] [address] Phys: Trever Calvillo MD Acct: [id number] Dis Date: Status: [facility] PHONE #: [phone] Exam Date: 10/02/2019 1500 FAX #: Reason: LEFT FEMUR JUN PLATE REMOVAL EXAMS: CPT: [id number] XR FLUOROSCOPY 0-60 MIN 39220 Fluoro Time: 17 SEC DAP (Gy m2): Air Kerma (mGy): EXAM: - XR FLUOROSCOPY 0-60 MIN HISTORY: LEFT FEMUR JUN PLATE REMOVAL Location code:B2 COMPARISON: CT lower extremity 09/19/2019 FINDINGS: Intraoperative fluoroscopy was provided for orthopedic procedure/partial hardware removal. Radiologist was not present for the procedure. 5 fluoroscopy images were obtained. Please see official surgical report for additional detailed findings. IMPRESSION: 1. As above. Fluoro scopy time: 17.6 seconds Cumulative dose: 1.0 mGy at 1605 Reported and signed by: Sudha Magallanes M.D. CC: Trever Calvillo MD PAGE 1 Signed Report Name: ANABELA RUTH [place] : 1955 Age/S: 64 / M [id number] Unit #: [id number] Loc: [place] [address] Phys: Trever Calvillo MD Acct: [id number] Dis Date: Status: [facility] PHONE #: [phone] Exam Date: 10/02/2019 1500 FAX #: Reason: LEFT FEMUR JUN PLATE REMOVAL EXAMS: CPT: [id number] XR FLUOROSCOPY 0-60 MIN 22471 Fluoro Time: 17 SEC DAP (Gy m2): Air Kerma (mGy): <Continued> Technologist: Raine Vera RT(R) Trnscb Date/Time: 10/02/2019 (8477) [id number] Orig Print D/T: S: 10/02/2019 (7321) PAGE 2 Signed Report UA RFLX MICR CULT IF [id number] 08:47:00 Test Item Value Reference Range Interpretation Comments UA COLOR (test code = LIGHT YELLOW YEL/STRAW COLU) discript UA APPEARANCE (test code CLEAR discript CLEAR = APPU) UA GLUCOSE DIPSTICK (test NEGATIVE mg/dL NEG code = DGLUU) UA BILIRUBIN DIPSTICK NEGATIVE mg/dL NEG (test code = BILU) UA KETONE DIPSTICK (test NEGATIVE mg/dL NEG code = KETU) UA SPECIFIC GRAVITY (test <=1.005 SG 1.005-1.030 code = SGU) UA BLOOD DIPSTICK (test NEGATIVE mg/DL NEG code = MARQUITA) UA PH DIPSTICK (test code 6.5 pH UNITS 5.0-7.0 = ASIA) UA PROTEIN DIPSTICK (test NEGATIVE mg/dL NEG code = PROU) UA UROBILINIOGEN DIPSTICK 0.2 mg/dL <2.0 (test code = URO) UA NITRITE DIPSTICK (test NEGATIVE SCREEN NEG code = ALEJANDRO) UA LEUKOCYTE ESTERASE NEGATIVE Leuk/mcL NEGATIVE DIPSTICK (test code = LEUU) SOURCE OF URINE: CLEAN CATCHIndication for culture: Dysuria/FrequencySpec Comments: INDICATION: PRE OP EVALUA RFLX MICR CULT IF [id number] 08:46:00 Test Item Value Reference Range Interpretation Comments UA COLOR (test code = LIGHT YELLOW YEL/STRAW COLU) discript UA APPEARANCE (test code CLEAR discript CLEAR = APPU) UA GLUCOSE DIPSTICK (test NEGATIVE mg/dL NEG code = DGLUU) UA BILIRUBIN DIPSTICK NEGATIVE mg/dL NEG (test code = BILU) UA KETONE DIPSTICK (test NEGATIVE mg/dL NEG code = KETU) UA SPECIFIC GRAVITY (test <=1.005 SG 1.005-1.030 code = SGU) UA BLOOD DIPSTICK (test NEGATIVE mg/DL NEG code = MARQUITA) UA PH DIPSTICK (test code 6.5 pH UNITS 5.0-7.0 = ASIA) UA PROTEIN DIPSTICK (test NEGATIVE mg/dL NEG code = PROU) UA UROBILINIOGEN DIPSTICK 0.2 mg/dL <2.0 (test code = URO) UA NITRITE DIPSTICK (test NEGATIVE SCREEN NEG code = ALEJANDRO) UA LEUKOCYTE ESTERASE NEGATIVE Leuk/mcL NEGATIVE DIPSTICK (test code = LEUU) UA CULTURE NEEDED? (test Criteria Culture CHK code = UACULT) SOURCE OF URINE: CLEAN CATCHIndication for culture: Dysuria/FrequencySpec Comments: INDICATION: PRE OP EVALBASIC METABOLIC [id number] 07:29:00 Test Item Value Reference Range Interpretation Comments SODIUM (test code = NA) 138 mmol/L 134-147 N POTASSIUM (test code = 3.8 mmol/L 3.4-5.0 N K) CHLORIDE (test code = 107 mmol/L 100-108 N CL) CARBON DIOXIDE (test 26 mmol/L 21-32 N code = CO2) ANION GAP (test code = 5.0 GAP calc 4.0-15.0 N GAP) GLUCOSE (test code = 139 MG/DL 70-110 H GLU) BLOOD UREA NITROGEN 14 MG/DL 7-18 N (test code = BUN) GLOMERULAR FILTRATION >=60 max estimate >60 RATE (test code = GFR) estGFR CREATININE (test code = 1.1 MG/DL 0.8-1.3 N CREAT) CALCIUM (test code = CA) 9.1 MG/DL 8.5-10.1 N VITAMIN D [id number] 07:29:00 Test Item Value Reference Range Interpretation Comments VITAMIN D 14.1 ng/mL 30.0-100.0 A Vitamin D defic iency has 25-HYDROXY (test been define d by the code = VITD25) [place] [facility] edicine and an Endocrine So ciety practice guidel ine as alevel of serum 25-OH vitamin D less than 20 ng/mL (1,2).The Endocrine Society went on to further define vitamin Dinsufficiency as a level between 21 and 29 ng/mL (2).1. IOM (Ins titute of Medicine). 2010 . Dietary reference int akes for calcium and D. [place]: [employer] .2. Sailaja MF, Antonio DELEON, Dianna moody MOSER, et al. Evaluatio n, treatment, and prevention of vitamin D deficiency: an Endocrine Society clinica l practice guideline. CONRAD EM. 2010; 96(2):1911-30.P erformed At: [facility] [id number] [place], [place] [id number] Trever Ac MD Ph:[phone] BASIC METABOLIC [id number] 07:08:00 Test Item Value Reference Range Interpretation Comments SODIUM (test code = NA) 138 mmol/L 134-147 N POTASSIUM (test code = 3.8 mmol/L 3.4-5.0 N K) CHLORIDE (test code = 107 mmol/L 100-108 N CL) CARBON DIOXIDE (test 26 mmol/L 21-32 N code = CO2) ANION GAP (test code = 5.0 GAP calc 4.0-15.0 N GAP) GLUCOSE (test code = 139 MG/DL 70-110 H GLU) BLOOD UREA NITROGEN 14 MG/DL 7-18 N (test code = BUN) GLOMERULAR FILTRATION >=60 max estimate >60 RATE (test code = GFR) estGFR CREATININE (test code = 1.1 MG/DL 0.8-1.3 N CREAT) CALCIUM (test code = CA) 9.1 MG/DL 8.5-10.1 N VITAMIN D [id number] 07:08:00 Test Item Value Reference Range Interpretation Comments VITAMIN D 25-HYDROXY (test code = 14.1 VITD25) CBC W/AUTO [id number] 14:54:00 Test Item Value Reference Range Interpretation Comments WHITE BLOOD CELL (test code = 8.6 K/mm3 3.5-11.0 N WBC) RED BLOOD CELL (test code = RBC) 3.72 M/mm3 4.70-6.10 L HEMOGLOBIN (test code = HGB) 11.3 G/DL 12.3-15.9 L HEMATOCRIT (test code = HCT) 34.6 % 35.8-46.7 L MEAN CELL VOLUME (test code = 93.0 Fl 86.3-98.9 N MCV) MEAN CELL HGB (test code = MCH) 30.4 pg 28.9-34.4 N MEAN CELL HGB CONCETRATION (test 32.7 G/DL 32.1-34.5 N code = MCHC) RED CELL DISTRIBUTION WIDTH (test 13.2 SD 11.5-14.5 N code = RDW) PLATELET COUNT (test code = PLT) 226.0 K/mm3 150-450 N MEAN PLATELET VOLUME (test code = 10.30 fL 7.0-9.6 H MPV) NEUTROPHIL % (test code = NT%) 52.5 % 40-76 N LYMPHOCYTE % (test code = LY%) 38.0 % 20.5-51.1 N MONOCYTE % (test code = MO%) 6.9 % 1.7-9.3 N EOSINOPHIL % (test code = EO%) 2.4 % 0.0-6.0 N BASOPHIL % (test code = BA%) 0.2 % 0.0-2.0 N NEUTROPHIL # (test code = NT#) 4.52 K/mm3 1.8-7.6 N LYMPHOCYTE # (test code = LY#) 3.3 K/mm3 0.6-3.0 H MONOCYTE # (test code = MO#) 0.6 K/mm3 0.2-1.5 N EOSINOPHIL # (test code = EO#) 0.2 K/mm3 0.0-0.4 N BASOPHIL # (test code = BA#) 0.0 K/mm3 0.0-0.2 N MANUAL DIFF REQUIRED (test code = NO DIFF/SCN CRITERIA MDIFF) SED [id number] 14:54:00 Test Item Value Reference Range Interpretation Comments SED RATE (test code = SEDW) 80 mm/hr 0-20 H - XR CHEST 2 [id number] 14:38:00 Name: ANABELA RUTH [facility] : 1955 Age/S: 64 / M [address] Unit #: [id number] Loc: [place] [address] Phys: Trever Calvillo MD Acct: [id number] Dis Date: Status: PRE SDC PHONE #: [phone] Exam Date: 09/19/2019 1400 FAX #: Reason: PREOP EXAMS: CPT: [id number] XR CHEST 2 V 73123 Fluoro Time: DAP (Gy m2): Air Kerma (mGy): EXAMINATION: - XR CHEST 2 V. LOCATION: S17. HISTORY: PREOP, T84.398A. COMPARISON: None. FINDINGS: Cardiac silhouette/Mediastinal contour: Within normal limits. Atherosclerotic calcification of aortic arch. Lungs: No focal consolidation. No pleural effusion. Osseous Structures: Degenerative changes of thoracic spine, including both shoulders. IMPRESSION: No focal consolidation. at 1438 Reported and signed by: Harsh Hendrix M.D. CC: Trever Calvillo MD PAGE 1 Signed Report Name: ANABELA RUTH [facility] : 1955 Age/S: 64 / M [id number] Unit #: [id number] Loc: [place] [address] Phys: Trever Calvillo MD Acct: [id number] Dis Date: Status: PRE [facility] PHONE #: [phone] Exam Date: 09/19/2019 1400 FAX #: Reason: PREOP EXAMS: CPT: [id number] XR CHEST 2 V 92290 Fluoro Time: DAP (Gy m2): Air Kerma (mGy): <Continued> Technologist: Raine Vera, RT(R) Trnscb Date/Time: 09/19/2019 (1438) [email or web address] Orig Print D/T: S: 09/19/2019 (7012) PAGE 2 Signed ReportC REACTIVE [id number] 13:53:00 Test Item Value Reference Range Interpretation Comments C REACTIVE PROTEIN (test code = 0.629 MG/DL 0.000-0.3 H CRP) BASIC METABOLIC [id number] 13:52:00 Test Item Value Reference Range Interpretation Comments SODIUM (test code = NA) 138 mmol/L 134-147 N POTASSIUM (test code = 3.8 mmol/L 3.4-5.0 N K) CHLORIDE (test code = 107 mmol/L 100-108 N CL) CARBON DIOXIDE (test 26 mmol/L 21-32 N code = CO2) ANION GAP (test code = 5.0 GAP calc 4.0-15.0 N GAP) GLUCOSE (test code = 139 MG/DL 70-110 H GLU) BLOOD UREA NITROGEN 14 MG/DL 7-18 N (test code = BUN) GLOMERULAR FILTRATION >=60 max estimate >60 RATE (test code = GFR) estGFR CREATININE (test code = 1.1 MG/DL 0.8-1.3 N CREAT) CALCIUM (test code = CA) 9.1 MG/DL 8.5-10.1 N VITAMIN D [id number] 13:52:00 Test Item Value Reference Range Interpretation Comments VITAMIN D 25-HYDROXY (test code = VITD25) PROTHROMBIN [id number] 13:42:00 Test Item Value Reference Range Interpretation Comments PT PATIENT (test code = PTP) 13.2 SECONDS 9.3-12.9 H INTERNATIONAL NORMAL RATIO 1.16 INR Unit 0.8-1.2 N (test code = INR) THROMBOPLASTIN TIME [id number] 13:42:00 Test Item Value Reference Range Interpretation Comments THROMBOPLASTIN TIME PARTIAL 34.7 SECONDS 26-35 N (test code = PTT) CBC W/AUTO [id number] 13:33:00 Test Item Value Reference Range Interpretation Comments WHITE BLOOD CELL (test code = 8.6 K/mm3 3.5-11.0 N WBC) RED BLOOD CELL (test code = RBC) 3.72 M/mm3 4.70-6.10 L HEMOGLOBIN (test code = HGB) 11.3 G/DL 12.3-15.9 L HEMATOCRIT (test code = HCT) 34.6 % 35.8-46.7 L MEAN CELL VOLUME (test code = 93.0 Fl 86.3-98.9 N MCV) MEAN CELL HGB (test code = MCH) 30.4 pg 28.9-34.4 N MEAN CELL HGB CONCETRATION (test 32.7 G/DL 32.1-34.5 N code = MCHC) RED CELL DISTRIBUTION WIDTH (test 13.2 SD 11.5-14.5 N code = RDW) PLATELET COUNT (test code = PLT) 226.0 K/mm3 150-450 N MEAN PLATELET VOLUME (test code = 10.30 fL 7.0-9.6 H MPV) NEUTROPHIL % (test code = NT%) 52.5 % 40-76 N LYMPHOCYTE % (test code = LY%) 38.0 % 20.5-51.1 N MONOCYTE % (test code = MO%) 6.9 % 1.7-9.3 N EOSINOPHIL % (test code = EO%) 2.4 % 0.0-6.0 N BASOPHIL % (test code = BA%) 0.2 % 0.0-2.0 N NEUTROPHIL # (test code = NT#) 4.52 K/mm3 1.8-7.6 N LYMPHOCYTE # (test code = LY#) 3.3 K/mm3 0.6-3.0 H MONOCYTE # (test code = MO#) 0.6 K/mm3 0.2-1.5 N EOSINOPHIL # (test code = EO#) 0.2 K/mm3 0.0-0.4 N BASOPHIL # (test code = BA#) 0.0 K/mm3 0.0-0.2 N MANUAL DIFF REQUIRED (test code = NO DIFF/SCN CRITERIA MDIFF) SED [id number] 13:33:00 Test Item Value Reference Range Interpretation Comments SED RATE (test code = SEDW) mm/hr 0-20 - CT LOWER EXTRM W/O C [id number] 11:45:00 Name: ANABELA RUTH [facility] : 1955 Age/S: 64 / M [address] Unit #: [id number] Loc: [place] [address] Phys: Trever Calvillo MD Acct: [id number] Dis Date: Status: PRE CLI PHONE #: [phone] Exam Date: 09/19/2019 1100 FAX #: Reason: PAIN LFT KNEE EXAMS: CPT: [id number] [place] L[place] EXTRM W/[place] [address] EXAM: - CTLOWER EXTRM W/O C LT HISTORY: PAIN LFT KNEE Location code:C3 COMPARISON: 05/04/2012 TECHNIQUE: Multiple axial CT images were obtained of the leftfemur without the use of IV contrast. Coronal and sagittal reformatted images are provided. One or more of the following dose reduction techniques were used: Automated exposure control, adjustment of the mA and/or kV according to patient size, and/or utilization of iterative reconstruction technique. DLP: 747 mGy-cm. FINDINGS: Left total hip arthroplasty with 2 separate plate and screw fixation of the left femur present. There is also cerclage wire placement seen. The more anterior plate adjacent to the superior femur lies 12 mm anterior lateral femoral cortex with many of the screws lying within the anterior femoral c ortex rather than centrally through the medullary space with the 2 most distal screws possiblyreaching the superficial anterior femoral cortex. The lateral plate appears intact and fully engaged. The left total hip arthroplasty appears intact and fully engaged. The hardwarecreates significant streak artifact limiting evaluation. On axial image 79 of series 2 there is suggestion of linear lucency in the medial aspect of the femur lying medial to the endometrial femoral stem which could represent nondisplaced fracture however there is no displacement and there is hardware bridging this location. There is also overlying callus formation which appears uninvolved by the fracture. IMPRESSION: 1. Postsurgical fixation as above. 2. Questionable incomplete fracture of the medial femur and medialto the femoral stem of the hip arthroplasty as detailed above however there is overlying callus not involved by the fracture and this is bridged by both the anterolateral and lateral hardware. PAGE 1 Signed Report (CONTINUED) Name: ANABELA RUTH [facility] : 1955 Age/S: 64 / M [id number] [facility] Unit #: [id number] Loc: [place] [address] Phys: Trever Calvillo MD Acct: [id number] Dis Date: Status: PRE CLI PHONE #: [phone] Exam Date: 09/19/2019 1100 FAX #: Reason: PAIN LFT KNEE EXAMS: CPT: [id number] CT LOWER EXTRM W/[place] [address] <Continued> at 1145 Reported and signed by: Oswald Devi MD CC: Trever Calvillo MD; Kiran Loera MD Technologist:Desire Hernandez, RT(R)(MR) CTDI: DLP: Trnscb Date/Time: 09/19/2019 (5597) [email or web address] Orig Print D/T: S: 09/19/2019 (9306) PAGE 2 Signed Report
[2020-11-14 11:32] LABS: Absolute Lymphocytes (CBC) 0.7 K/uL (0.7-4.9); Basophils % 0.6 % (0-1.3); Lymphocytes % 10.6 % (15.3-44.8); RBC Red Blood Cell Count 3.38 M/uL (4.33-5.43)
[2020-11-14] MEDS ORDERED: NA CHLORIDE 0.9% 3,000 ML ONE (11:45)
--- NOTE | 2020-11-14 12:00 | RAD REPORT ---
EXAM DESCRIPTION: RAD - Chest Single View - 11/14/2020 11:45 am CLINICAL HISTORY: FEVER Chest pain. COMPARISON: Chest Single View dated 08/12/2018; Chest Single View dated 08/11/2018; Chest Single View dated 05/27/2018; Chest Single View dated 02/18/2018 FINDINGS: Portable technique limits examination quality. The lungs are grossly clear. The heart is normal in size. No displaced fractures. IMPRESSION: No acute intrathoracic process suspected.
[2020-11-14 12:33] LABS: Protime INR 1.14
[2020-11-14 12:41] LABS: ALT/SGPT 25 U/L (12-78); AST/SGOT 25 U/L (15-37); Alkaline Phosphatase 95 U/L (45-117); Amylase 43 U/L (25-115); BUN Blood Urea Nitrogen 15 mg/dL (7-18); Bicarbonate 25 mmol/L (21-32); Bilirubin Direct 0.2 mg/dL (0-0.2); Bilirubin Total 0.5 mg/dL (0.2-1.0); CKMB Creatine Kinase MB < 1.0 ng/mL (0.3-3.6); Creatine Phosphokinase 86 U/L (39-308); Glucose Level 165 mg/dL (74-106); Lipase 55 U/L (73-393); Protein, Total 7.1 g/dL (6.4-8.2); Sodium Level 137 mmol/L (136-145); Troponin (Emerg Dept Use Only) 0.02 ng/mL (0.0-0.045)
[2020-11-14 13:21] LABS: Urine Blood 2+ (Negative); Urine Glucose Negative (Negative); Urine Protein Trace (Negative); Urine pH 6.5 (5.0-7.0)
[2020-11-14 13:49] LABS: Urine Blood 2+ (Negative); Urine Glucose Negative (Negative); Urine Protein Negative (Negative); Urine pH 6.5 (5.0-7.0)
[2020-11-14 13:59] LABS: Urine Bacteria >50 /HPF (NONE SEEN); Urine RBC <5 /HPF (NONE SEEN)
--- NOTE | 2020-11-14 14:06 | ER ---
Nurse's Notes [facility] Name: David Lopez Age: 65 yrs Sex: Male : 1955 Arrival Date: 11/14/2020 Time: 10:17 Bed 16 Private MD: Diagnosis: Altered mental status, unspecified;Fever, unspecified;Urinary tract infection, site not specified;Weakness Presentation: 11/14 10:18 Chief complaint: Patient states: Fever and AMS. Denies pain. EMS states: Fever 103.0, ll1 fingerstick 169. Given 20 units of insulin this am. 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 Coronavirus screen: Client denies travel out of the [place] in the last 14 days. Ebola Screen: Patient denies travel to an Ebola-affected area in the 21 days before illness onset. Initial Sepsis Screen: Does the patient meet any 2 criteria? No. Patient's initial sepsis screen is negative. Does the patient have a suspected source of infection? Yes: Other: fever'AMS. Risk Assessment: Do you want to hurt yourself or someone else? Patient reports no desire to harm self or others. Onset of symptoms was November 14, 2020. 10:18 Method Of Arrival: EMS: [facility] 1 10:18 Acuity: LEANNA 3 ll1 Historical: - Allergies: 10:17 No Known Allergies; ll1 - PMHx: 10:17 CVA; Diabetes - NIDDM; Hypertension; Parkinsons; ll1 - Immunization history:: Flu vaccine is up to date. - Social history:: Smoking status: Patient denies any tobacco usage or history of. Screenin:21 Abuse screen: Denies threats or abuse. Nutritional screening: No deficits noted. ll1 Tuberculosis screening: No symptoms or risk factors identified. Fall Risk Fall in past 12 months (25 points). Secondary diagnosis (15 points) CVA, IV access (20 points). Gait- Impaired (20 pts.). Mental Status- Overestimates/Forgets Limitations (15 pts.). Total Bassett Fall Scale indicates High Risk Score (45 or more points). Fall prevention measures have been instituted. Side Rails Up X 2 Frequent Obs/Assessments Occuring As available patient and family educated on Fall Prevention Program and Strategies. Assessment: 10:18 General: Appears ill, Behavior is calm, cooperative, appropriate for age. General: ll1 Fever and dizzy for 3 days. Pain: Denies pain. Neuro: Level of Consciousness is awake, alert, obeys commands, Oriented to person, place, Appropriate for age Sox Analyst are weak bilaterally Full function Weakness Speech is normal, Facial symmetry appears normal, Reports dizziness. Cardiovascular: No deficits noted. Respiratory: No deficits noted. GI: No deficits noted. Abdomen is flat, Bowel sounds present X 4 quads. Abd is soft and non tender X 4 quads. Patient currently denies diarrhea, nausea, vomiting. : No deficits noted. 12:00 Reassessment: Patient appears in no apparent distress at this time. Patient and/or ca1 family updated on plan of care and expected duration. Pain level reassessed. Patient is alert, oriented x 3, equal unlabored respirations, skin warm/dry/pink. 13:00 Reassessment: Patient appears in no apparent distress at this time. Patient and/or ca1 family updated on plan of care and expected duration. Pain level reassessed. Patient is alert, oriented x 3, equal unlabored respirations, skin warm/dry/pink. 13:45 Reassessment: Patient appears in no apparent distress at this time. Patient and/or ca1 family updated on plan of care and expected duration. Pain level reassessed. Patient is alert, oriented x 3, equal unlabored respirations, skin warm/dry/pink. 14:30 Reassessment: Patient appears in no apparent distress at this time. Patient and/or ca1 family updated on plan of care and expected duration. Pain level reassessed. Patient is alert, oriented x 3, equal unlabored respirations, skin warm/dry/pink. 15:30 Reassessment: Patient appears in no apparent distress at this time. Patient and/or ca1 family updated on plan of care and expected duration. Pain level reassessed. Patient is alert, oriented x 3, equal unlabored respirations, skin warm/dry/pink. 16:30 Reassessment: Patient appears in no apparent distress at this time. Patient and/or ca1 family updated on plan of care and expected duration. Pain level reassessed. Patient is alert, oriented x 3, equal unlabored respirations, skin warm/dry/pink. 20:54 Reassessment: Patient to CT scan via hospital bed then to floor with automotive maintenance technician. Vital Signs: 10:18 BP 106 / 68; Pulse 84; Resp 20; Temp 99.1; Pulse Ox 97% ; Pain 0/10; ll1 11:19 Weight 72.57 kg (R); Height 5 ft. 7 in. (170.18 cm); ll1 12:10 BP 107 / 58; Pulse 68; Resp 18; Pulse Ox 99% ; ll1 12:46 BP 90 / 56; Pulse 65; Resp 15 S; Pulse Ox 100% on R/A; ca1 13:15 BP 93 / 55; Pulse 67; Resp 15 S; Pulse Ox 98% on R/A; ca1 14:00 BP 110 / 57; Pulse 63; Resp 15 S; Pulse Ox 98% on R/A; ca1 15:00 BP 92 / 54; Pulse 63; Resp 18 S; Pulse Ox 97% on R/A; ca1 15:00 BP 104 / 51; Pulse 58; Resp 19 S; Pulse Ox 100% on R/A; ca1 20:00 BP 108 / 52; Pulse 59; Resp 18; Pulse Ox 100% ; sf 11:19 Body Mass Index 25.06 (72.57 kg, 170.18 cm) ll1 ED Course: 10:17 Patient arrived in ED. ds1 10:17 Laura Lozoya RN is Primary Nurse. ll1 10:17 Arm band placed on Patient placed in an exam room, on a stretcher. ll1 10:21 Triage completed. ll1 10:22 Patient has correct armband on for positive identification. Bed in low position. Call ll1 light in reach. Side rails up X2. Pulse ox on. NIBP on. 10:34 Dannie Rudolph MD is Attending Physician. kdr 11:05 Inserted saline lock: 22 gauge in left forearm, using aseptic technique. Blood ll1 collected. 11:45 Chest Single View XRAY In Process Unspecified. EDMS 13:55 Urine collected: straight cath specimen, cloudy, aj colored. jp3 14:10 Cleaned of incontinence. jp3 14:27 Jin Soler DO is Hospitalizing Provider. kdr 15:27 Moved to Hospital Bed. jp3 15:40 COVID swab sent to lab. jp3 17:51 No provider procedures requiring assistance completed. Patient admitted, IV remains in ca1 place. 19:06 Report given to BERNY Maruqez. ca1 Administered Medications: 11:39 Drug: NS 0.9% (30 ml/kg) 30 ml/kg Route: IV; Rate: bolus; Site: left forearm; ll1 13:30 Follow up: Response: No adverse reaction; IV Status: Completed infusion; IV Intake: ca1 2000ml 14:15 Drug: Rocephin (cefTRIAXone) 1 grams Route: IV; Rate: calculated rate; Site: left ca1 forearm; 14:31 Follow up: Response: No adverse reaction; IV Status: Completed infusion ca1 15:24 Drug: NS 0.9% 500 ml Route: IV; Rate: bolus; Site: left forearm; ca1 16:01 Follow up: Response: No adverse reaction; IV Status: Completed infusion; IV Intake: ca1 500ml Intake: 13:30 IV: 2000ml; Total: 2000ml. ca1 16:01 IV: 500ml; Total: 2500ml. ca1 Outcome: 14:05 Discharge ordered by . kdr 14:28 Decision to Hospitalize by Provider. kdr 17:51 Admitted to ER Hold. Please see [facility] for further documentation. ca1 17:51 Condition: stable 17:51 Instructed on the need for admit. 20:15 Admitted to Tele accompanied by nurse, via stretcher, room 231, Report called to trina Savage RN 20:54 Patient left the ED. sf Signatures: Dispatcher [employer] EDMS Dannie Rudolph MD MD kdr Joy Beaver ds1 Andrews Garcia jp3 Azucena Aburto RN RN ca1 Laura Lozoya RN RN ll1 Jimmy Johnson RN RN sf Corrections: (The following items were deleted from the chart) 14:01 13:45 BP 93 / 55; Pulse 67bpm; Resp 15bpm; Spontaneous; Pulse Ox 98% RA; ca1 ca1 16:51 14:30 BP 92 / 54; Pulse 63bpm; Resp 18bpm; Spontaneous; Pulse Ox 97% RA; ca1 ca1
--- NOTE | 2020-11-14 14:06 | EDPHYS ---
Physician Documentation [facility] Name: David Lopez Age: 65 yrs Sex: Male : 1955 Arrival Date: 11/14/2020 Time: 10:17 Bed 16 Private MD: ED Physician Dannie Rudolph HPI: 11/14 17:49 This 65 yrs old Male presents to ER via EMS with complaints of AMS, fever. kdr 17:49 The patient was noted to be confused and have a fever at home this morning.. Onset: The kdr symptoms/episode began/occurred suddenly, this morning. Severity of symptoms: At their worst the symptoms were mild moderate just prior to arrival, in the emergency department the symptoms are unchanged. The patient has not experienced similar symptoms in the past. The patient has not recently seen a physician. Historical: - Allergies: : No Known Allergies; ll1 - PMHx: : CVA; Diabetes - NIDDM; Hypertension; Parkinsons; ll1 - Immunization history:: Flu vaccine is up to date. - Social history:: Smoking status: Patient denies any tobacco usage or history of. ROS: 17:49 Constitutional: Negative for weight loss - has had fever 103 this AM Eyes: Negative for kdr injury, pain, redness, and discharge, ENT: Negative for injury, pain, and discharge, Neck: Negative for injury, pain, and swelling, Cardiovascular: Negative for chest pain, palpitations, and edema, Respiratory: Negative for shortness of breath, cough, wheezing, and pleuritic chest pain, Abdomen/GI: Negative for abdominal pain, nausea, vomiting, diarrhea, and constipation, Back: Negative for injury and pain, : Negative for injury, bleeding, discharge, and swelling, MS/Extremity: Negative for injury and deformity, Skin: Negative for injury, rash, and discoloration, Psych: Negative for depression, anxiety, suicide ideation, homicidal ideation, and hallucinations, Allergy/Immunology: Negative for hives, rash, and allergies, Endocrine: Negative for neck swelling, polydipsia, polyuria, polyphagia, and marked weight changes, Hematologic/Lymphatic: Negative for swollen nodes, abnormal bleeding, and unusual bruising. 17:49 Neuro: Positive for altered mental status, weakness. Exam: 17:49 Constitutional: This is a well developed, well nourished patient who is awake, alert, kdr and in no acute distress. Head/Face: Normocephalic, atraumatic. Eyes: Pupils equal round and reactive to light, extra-ocular motions intact. Lids and lashes normal. Conjunctiva and sclera are non-icteric and not injected. Cornea within normal limits. Periorbital areas with no swelling, redness, or edema. Neck: Trachea midline, no thyromegaly or masses palpated, and no cervical lymphadenopathy. Supple, full range of motion without nuchal rigidity, or vertebral point tenderness. No Meningismus. Chest/axilla: Normal chest wall appearance and motion. Nontender with no deformity. No lesions are appreciated. Cardiovascular: Regular rate and rhythm with a normal S1 and S2. No gallops, murmurs, or rubs. Normal PMI, no JVD. No pulse deficits. Respiratory: Lungs have equal breath sounds bilaterally, clear to auscultation and percussion. No rales, rhonchi or wheezes noted. No increased work of breathing, no retractions or nasal flaring. Abdomen/GI: Soft, non-tender, with normal bowel sounds. No distension or tympany. No guarding or rebound. No evidence of tenderness throughout. Back: No spinal tenderness. No costovertebral tenderness. Full range of motion. Skin: Warm, dry with normal turgor. Normal color with no rashes, no lesions, and no evidence of cellulitis. Psych: Awake, alert, with orientation to person, place and time. Behavior, mood, and affect are within normal limits. 17:49 Neuro: Mentation: slow to respond, confused, Motor: The patient is bed bound and rigid and does not ambulate. Vital Signs: 10:18 BP 106 / 68; Pulse 84; Resp 20; Temp 99.1; Pulse Ox 97% ; Pain 0/10; ll1 11:19 Weight 72.57 kg (R); Height 5 ft. 7 in. (170.18 cm); ll1 12:10 BP 107 / 58; Pulse 68; Resp 18; Pulse Ox 99% ; ll1 12:46 BP 90 / 56; Pulse 65; Resp 15 S; Pulse Ox 100% on R/A; ca1 13:15 BP 93 / 55; Pulse 67; Resp 15 S; Pulse Ox 98% on R/A; ca1 14:00 BP 110 / 57; Pulse 63; Resp 15 S; Pulse Ox 98% on R/A; ca1 15:00 BP 92 / 54; Pulse 63; Resp 18 S; Pulse Ox 97% on R/A; ca1 15:00 BP 104 / 51; Pulse 58; Resp 19 S; Pulse Ox 100% on R/A; ca1 20:00 BP 108 / 52; Pulse 59; Resp 18; Pulse Ox 100% ; sf 11:19 Body Mass Index 25.06 (72.57 kg, 170.18 cm) [facility] MDM: 14:05 Patient medically screened. kdr 17:56 Data reviewed: vital signs, nurses notes, lab test result(s), radiologic studies. kdr Counseling: I had a detailed discussion with the patient and/or guardian regarding: the historical points, exam findings, and any diagnostic results supporting the discharge/admit diagnosis, lab results, radiology results, the need for further work-up and treatment in the hospital. 11/14 11:18 Order name: Amylase, Serum; Complete Time: 12:45 11/14 11:18 Order name: Basic Metabolic Panel; Complete Time: 12:45 11/14 11:18 Order name: Blood Culture Adult (2) [facility] 11/14 11:18 Order name: CBC with Diff; Complete Time: 12:45 11/14 11:18 Order name: Ckmb; Complete Time: 12:45 11/14 11:18 Order name: CPK; Complete Time: 12:45 11/14 11:18 Order name: Lactate; Complete Time: 12:45 11/14 11:18 Order name: LFT's; Complete Time: 12:45 11/14 11:18 Order name: Lipase; Complete Time: 12:45 11/14 11:18 Order name: Procalcitonin; Complete Time: 14:12 11/14 11:18 Order name: Protime (+inr); Complete Time: 12:45 11/14 11:18 Order name: Ptt, Activated; Complete Time: 12:45 11/14 11:18 Order name: Troponin (emerg Dept Use Only); Complete Time: 12:45 11/14 11:18 Order name: Urine Microscopic Only; Complete Time: 14:12 ll11/14 11:18 Order name: Chest Single View XRAY; Complete Time: 12:45 [facility] 11/14 11:18 Order name: Cardiac monitoring; Complete Time: 11:38 [facility] 11/14 11:18 Order name: EKG - Nurse/Tech; Complete Time: 11:38 [facility] 11/14 11:18 Order name: IV Saline Lock - Large Bore; Complete Time: 11:18 [facility] 11/14 13:21 Order name: Urine Dipstick-Ancillary; Complete Time: 14:12 [facility] 11/14 13:48 Order name: Urine Dipstick-Ancillary; Complete Time: 14:12 [facility] 11/14 14:00 Order name: Urine Culture [facility] 11/14 15:17 Order name: CORONAVIRUS [facility] 11/14 15:19 Order name: Abdomen 1 View (KUB); Complete Time: 18:34 [facility] 11/14 15:30 Order name: COVID-19 : Document "Date of Symptom Onset" if Symptomatic. ca1 11/14 17:03 Order name: SARS-COV-2 RT PCR; Complete Time: 18:34 [facility] 11/14 20:52 Order name: Blood Culture [facility] 11/14 11:18 Order name: Labs collected and sent; Complete Time: 11:18 [facility] 11/14 11:18 Order name: O2 Per Protocol; Complete Time: 11:18 [facility] 11/14 11:18 Order name: O2 Sat Monitoring; Complete Time: 11:19 [facility] 11/14 11:18 Order name: Urine Dipstick-Ancillary (obtain specimen); Complete Time: 13:27 [facility] 11/14 11:40 Order name: Labs - recollect needed: All labs need recollect except lactate; Complete em1 Time: 12:14 Administered Medications: 11:39 Drug: NS 0.9% (30 ml/kg) 30 ml/kg Route: IV; Rate: bolus; Site: left forearm; ll1 13:30 Follow up: Response: No adverse reaction; IV Status: Completed infusion; IV Intake: ca1 2000ml 14:15 Drug: Rocephin (cefTRIAXone) 1 grams Route: IV; Rate: calculated rate; Site: left ca1 forearm; 14:31 Follow up: Response: No adverse reaction; IV Status: Completed infusion ca1 15:24 Drug: NS 0.9% 500 ml Route: IV; Rate: bolus; Site: left forearm; ca1 16:01 Follow up: Response: No adverse reaction; IV Status: Completed infusion; IV Intake: ca1 500ml Disposition: 11/14/20 14:28 Hospitalization ordered by Jin Soler for Observation. Preliminary diagnosis are Altered mental status, unspecified, Fever, unspecified, Urinary tract infection, site not specified, Weakness. - Bed requested for Telemetry/MedSurg (observation). - Status is Observation. sf - Condition is Fair. - Problem is new. - Symptoms have improved. Signatures: Dispatcher [employer] EDMS Dannie Rudolph MD MD kdr [place] em1 Marion Olivares RN RN ss Azucena Aburto RN RN ca1 Laura Lozoya RN RN ll1 Jimmy Johnson RN RN sf Corrections: (The following items were deleted from the chart) 11:39 11:18 Accucheck ordered. ll1 ll1 14:26 14:05 11/14/2020 14:05 Discharged to Home. Impression: Urinary tract infection, site kdr not specified; Weakness. Condition is Stable. Forms are Medication Reconciliation Form, Thank You Letter, Antibiotic Education, Prescription Opioid Use. Follow up: Private Physician; When: 2 - 3 days; Reason: If symptoms return, Further diagnostic work-up, Recheck today's complaints, Continuance of care, Re-evaluation by your physician. Problem is new. Symptoms have improved. kdr 16:57 14:28 Hospitalization Ordered by Jin Soler DO for Observation. Preliminary ss diagnosis is Altered mental status, unspecified; Fever, unspecified; Urinary tract infection, site not specified; Weakness. Bed requested for Telemetry/MedSurg (observation). Status is Observation. Condition is Fair. Problem is new. Symptoms have improved. kdr 18:07 16:57 11/14/2020 14:28 Hospitalization Ordered by Jin Soler DO for Observation. em1 Preliminary diagnosis is Altered mental status, unspecified; Fever, unspecified; Urinary tract infection, site not specified; Weakness. Bed requested for [facility] ER HOLD. Status is Observation. Condition is Fair. Problem is new. Symptoms have improved. ss 20:54 18:07 11/14/2020 14:28 Hospitalization Ordered by Jin Prezas DO for Observation. sf Preliminary diagnosis is Altered mental status, unspecified; Fever, unspecified; Urinary tract infection, site not specified; Weakness. Bed requested for Telemetry/MedSurg (observation). Status is Observation. Condition is Fair. Problem is new. Symptoms have improved. em1
[2020-11-14] MEDS ORDERED: CEFTRIAXONE/SWI 1gm 1 GM/10 ML SYR ONE (14:30)
--- NOTE | 2020-11-14 15:55 | P.HP ---
Certification for Inpatient Patient admitted to: Observation With expected LOS: <2 Midnights Patient will require the following post-hospital care: None Practitioner: I am a practitioner with admitting privileges, knowledge of patient current condition, hospital course, and medical plan of care. Services: Services provided to patient in accordance with Admission requirements found in Title 42 Section 412.3 of the Code of Federal Regulations Patient History Date of Service: 11/14/20 Primary Care Provider: Dr. Loera; Pain-Dr. Payan Reason for admission: Altered mental status History of Present Illness: 65-year-old male with history of diabetes, hypertension, atrial fibrillation, chronic pain, diabetic neuropathy and depression. Patient was brought in by . reports patient has had some confusion overnight. Some fever noted. reports patient feeling tired and weak. Patient has had mild abdominal pain with constipation. No significant nausea, vomiting, chest pain or shortness of breath. Patient came to the ER for further evaluation. Patient takes multiple medications including Metformin, gabapentin, Lipitor, desipramine, sotalol, Effexor, buprenorphine, Plavix, baclofen, aspirin, Levemir and Humulin. In the ER patient was evaluated. Chest x-ray unremarkable. White count normal at 6.5, hemoglobin 10.4. Platelet count 123. Sodium 137, potassium 4.0. BUN of 15, creatinine 0.89 with a GFR of 88. Glucose 168. Urine was positive for UTI. Troponin negative. Procalcitonin 0.23 lactic acid normal. Patient admitted for further evaluation and treatment. Patient given IV fluids in the emergency room. Antibiotics to be initiated. Allergies No Known Allergies Allergy (Verified 08/12/18 00:38) Home medications list reviewed: Yes Home Medications: ALPRAZolam [Xanax*] 1 mg PO TID PRN 08/12/18 Fluoxetine HCl [Prozac] 40 mg PO DAILY 08/12/18 Gabapentin [Neurontin] 600 mg PO TID 08/12/18 Insulin Detemir [Levemir] 20 units SQ BID 08/12/18 Omeprazole 20 mg PO DAILY 08/12/18 Oxycodone HCl/Acetaminophen [Percocet 5/325 Tab*] 2 tab PO Q4H PRN 08/12/18 Sotalol HCl [Betapace*] 80 mg PO BID 08/12/18 Tamsulosin [Flomax*] 0.4 mg PO DAILY 08/12/18 Trazodone [Desyrel*] 50 mg PO BEDTIME 08/12/18 gemfibroziL [Lopid*] 600 mg PO DAILY 08/12/18 Atorvastatin Calcium [Lipitor] 80 mg PO DAILY #30 tablet 08/13/18 Clopidogrel Bisulfate [Plavix*] 75 mg PO DAILY #30 tablet 08/13/18 Insulin -Regular Human [Novolin -R*] See Protocol SQ ACHS #1 vial 08/13/18 PHENYTOIN ER Cap [Dilantin ER Cap*] 100 mg PO BID #60 cap 08/13/18 predniSONE [Prednisone] 40 mg PO DAILY #10 tablet 08/13/18 - Past Medical/Surgical History Diabetic: Yes -: Diabetes mellitus type 2 insulin-dependent -: GERD -: BPH -: Depression -: HTN -: Chronic Pain -: History of asbestosis exposure -: Atrial fibrillation -: left kidney cancer 18 years ago -: CVA -: femur sx X3 -: neck surg -: [place] hip replacement -: right knee replacement -: left kidney removal -: back surgery Psychosocial/ Personal History: Patient lives at home - Family History Mother -: Diabetes Brother -: Diabetes - Social History Smoking Status: Unknown if ever smoked Alcohol use: No CD- Drugs: No Caffeine use: No Place of Residence: Home Review of Systems General: Weakness, As per HPI Eyes: Unremarkable ENT: Unremarkable Respiratory: Unremarkable Cardiovascular: Unremarkable Gastrointestinal: As per HPI Genitourinary: Unremarkable Musculoskeletal: As per HPI Integumentary: Unremarkable Neurological: As per HPI Lymphatics: Unremarkable Physical Examination - Physical Exam General: Alert, In no apparent distress, Oriented x3, Cooperative, Other (Patient no longer confused.) HEENT: Atraumatic Neck: Supple Respiratory: Clear to auscultation bilaterally, Normal air movement Cardiovascular: Normal pulses, Regular rate/rhythm Gastrointestinal: Normal bowel sounds, Soft and benign, Non-distended, No tenderness, No masses, No rebound, No guarding Musculoskeletal: No tenderness, No warmth Integumentary: No tenderness/swelling Neurological: Normal affect, Abnormal strength (Some weakness to the extremities. Patient with multiple surgeries to the right side. Right hip surgery. Right knee surgery scars noted) - Studies Laboratory Data (last 24 hrs) 11/14/20 12:00: PT 13.1 H, INR 1.14, APTT 28.3 11/14/20 12:00: Sodium 137, Potassium 4.0, BUN 15, Creatinine 0.87, Glucose 165 H, Total Bilirubin 0.5, AST 25, ALT 25, Alkaline Phosphatase 95, Amylase 43, Lipase 55 L 11/14/20 11:10: WBC 6.50, Hgb 10.4 L, Hct 31.0 L, Plt Count 123 L Assessment and Plan - Plan Impression: Toxic encephalopathy secondary to UTI with dehydration Diabetes mellitus type 2 insulin-dependent Atrial fibrillation History of CVA Depression with anxiety Chronic pain GERD Plan: Patient will be admitted for further evaluation and treatment. Patient with UTI. Will start Rocephin. Will also give fluid bolus and initiate maintenance IV fluids. Continue home medication of gabapentin, sotalol, Effexor, Plavix, aspirin. Will provide basal insulin. Will have bring in medication that he takes from home for pain to restart. Anticipate improvement over the next 24 hours. Suspect GERD. Will start Protonix. Will also provide folic acid and thiamine. May need to make adjustments to his medications at home. She takes multimedications that can increase sedation and cause confusion. Will monitor closely. Will check CT head as well. Blood, urine cultures obtained. Anticipate improvement over the next 24 to 48 hours. Discharge Plan: Home Plan to discharge in: 48 Hours - Advance Directives Does patient have a Living Will: No Does patient have a Durable POA for Healthcare: No - Code Status/Comfort Care Code Status Assessed: Yes (patient is full code) Time Spent Managing Pts Care (In Minutes): 55
[2020-11-14] MEDS: NA CHLORIDE 0.9% 1,000 ML IV SCH ×2 (16:00→22:27)
--- NOTE | 2020-11-14 16:28 | RAD REPORT ---
EXAM DESCRIPTION: RAD - Abdomen 1 View (KUB) - 11/14/2020 4:19 pm CLINICAL HISTORY: Abdomen pain. FINDINGS: The bowel gas pattern is unremarkable. Bilateral hip arthroplasties have been performed.
[2020-11-14] MEDS ORDERED: PNEUMOCOCCAL VACCINE 0.5 ML IMVAC ONE (20:00)
[2020-11-14] MEDS ORDERED: ACETAMINOPHEN 500 MG TAB PO PRN (20:44)
[2020-11-14] MEDS ORDERED: D50W 25 GM/50 ML SYRINGE IV PRN (20:44)
[2020-11-14] MEDS ORDERED: ONDANSETRON 4 MG/2 ML VIAL IV PRN (20:44)
[2020-11-14] MEDS ORDERED: SOTALOL HCL 80 MG TAB PO SCH (20:44)
[2020-11-14] MEDS ORDERED: GLUCAGON 1 MG/VIAL IM PRN (20:44)
[2020-11-14] MEDS ORDERED: INSULIN GLARGINE 100 UNITS/ML SQ SCH (21:00)
[2020-11-14] MEDS: INSULIN -REGULAR HUMAN 50 UNIT/0.5 ML ML SQ SCH (21:00)
--- NOTE | 2020-11-14 21:28 | RAD REPORT ---
EXAM DESCRIPTION: CT - Head Brain Wo Cont - 11/14/2020 9:00 pm CLINICAL HISTORY: Alteration of awareness/confusion COMPARISON: 2019 TECHNIQUE: Computed axial tomography of the head was obtained. IV contrast was not requested. All CT scans are performed using dose optimization technique as appropriate and may include automated exposure control or mA/KV adjustment according to patient size. FINDINGS: An intracranial bleed is not seen . The ventricles are normal in caliber. No extra-axial fluid collection is noted. Mild low-density areas within periventricular, deep and subcortical white matter likely represent is chemic changes secondary to small vessel disease. Fluid within the sinuses/ mastoids is not seen. IMPRESSION: No acute intracranial abnormality is seen. If patient's symptoms persist MRI of the bra in would be recommended.
[2020-11-14] MEDS: GABAPENTIN 300 MG CAP PO SCH (22:26)
[2020-11-14 22:50] VITALS: BMI 27.6
[2020-11-14] MEDS ORDERED: IBUPROFEN 400 MG TAB PO PRN (23:28)
[2020-11-15] MEDS: BUPRENORPHINE HCL 8 MG SL SCH ×3 (00:59→16:01)
[2020-11-15] MEDS: NA CHLORIDE 0.9% 1,000 ML IV SCH ×2 (02:00→08:29)
[2020-11-15] MEDS ORDERED: PANTOPRAZOLE 40MG TABLET PO SCH ×2 (06:30→09:00)
[2020-11-15 06:40] LABS: BUN Blood Urea Nitrogen 10 mg/dL (7-18); Bicarbonate 22 mmol/L (21-32); Glucose Level 108 mg/dL (74-106); Magnesium 1.5 mg/dL (1.8-2.4); Potassium 4.6 mmol/L (3.5-5.1); Sodium Level 141 mmol/L (136-145); Thyroid Stimulating Hormone 0.197 uIU/mL (0.360-3.740)
[2020-11-15] MEDS ORDERED: Magnesium Sulfate 2gm IVPB 2 G/50 ML BAG IV ONE (06:42)
[2020-11-15 07:00] LABS: Absolute Lymphocytes (CBC) 0.8 K/uL (0.7-4.9); Basophils % 0.6 % (0-1.3); Hematocrit 26.9 % (39.6-49.0); Lymphocytes % 24.7 % (15.3-44.8); MPV 8.2 fL (7.6-11.3); RBC Red Blood Cell Count 2.93 M/uL (4.33-5.43)
[2020-11-15] MEDS: INSULIN -REGULAR HUMAN 50 UNIT/0.5 ML ML SQ SCH ×3 (07:30→16:55)
[2020-11-15] MEDS: GABAPENTIN 300 MG CAP PO SCH ×2 (08:23→15:11)
[2020-11-15 08:46] LABS: Blood Morphology Comment NOT SEEN (NOT SEEN); Platelet Estimate DECR
[2020-11-15] MEDS ORDERED: ENOXAPARIN 40 MG/0.4 ML SQ SCH (09:00)
[2020-11-15] MEDS ORDERED: CEFTRIAXONE/SWI 1gm 1 GM/10 ML SYR IV SCH (09:00)
[2020-11-15] MEDS ORDERED: ASPIRIN EC 81 MG TAB PO SCH (09:00)
[2020-11-15] MEDS ORDERED: SOTALOL HCL 80 MG TAB PO SCH (09:00)
[2020-11-15] MEDS ORDERED: CLOPIDOGREL 75 MG TABLET PO SCH ×2 (09:00)
[2020-11-15] MEDS ORDERED: GABAPENTIN 300 MG CAP PO SCH (09:00)
[2020-11-15] MEDS ORDERED: VENLAFAXINE HCL XR 75 MG CAP PO SCH ×2 (09:00)
[2020-11-15] MEDS ORDERED: ATORVASTATIN 80 MG TAB PO SCH (09:00)
[2020-11-15] MEDS ORDERED: VENLAFAXINE HCL 37.5 MG TAB PO SCH (09:00)
[2020-11-15] MEDS ORDERED: INDOMETHACIN 25 MG CAP PO SCH (09:00)
[2020-11-15] MEDS ORDERED: clonazePAM 0.5 MG TAB PO SCH (09:00)
[2020-11-15 11:25] VITALS: O2SAT 92
--- NOTE | 2020-11-15 12:49 | P.DS ---
Admission Date: 11/14/20 Discharge Date: 11/15/20 Primary Care Provider: Dr. Loera; Pain-Dr. Payan Disposition: DC HOME/HOME HEALTH CARE Discharge Condition: GOOD Reason for Admission: Altered mental status Consultations: none Procedures: COVID: Negative CT Head: FINDINGS: An intracranial bleed is not seen . The ventricles are normal in caliber. No extra-axial fluid collection is noted. Mild low-density areas within periventricular, deep and subcortical white matter likely represent ischemic changes secondary to small vessel disease. Fluid within the sinuses/ mastoids is not seen. IMPRESSION: No acute intracranial abnormality is seen KUB: FINDINGS: The bowel gas pattern is unremarkable. Bilateral hip arthroplasties have been performed. CXR: FINDINGS: Portable technique limits examination quality. The lungs are grossly clear. The heart is normal in size. No displaced fractures. IMPRESSION: No acute intrathoracic process suspected. Medical problem list: Toxic encephalopathy secondary to UTI with dehydration Diabetes mellitus type 2 insulin-dependent Atrial fibrillation History of CVA Depression with anxiety Chronic pain GERD Anemia of chronic disease with iron deficiency Brief History of Present Illness: 65-year-old male with history of diabetes, hypertension, atrial fibrillation, chronic pain, diabetic neuropathy and depression. Patient was brought in by . reports patient has had some confusion overnight. Some fever noted. reports patient feeling tired and weak. Patient has had mild abdominal pain with constipation. No significant nausea, vomiting, chest pain or shortness of breath. Patient came to the ER for further evaluation. Patient takes multiple medications including Metformin, gabapentin, Lipitor, desipramine, sotalol, Effexor, buprenorphine, Plavix, baclofen, aspirin, Levemir and Humulin. In the ER patient was evaluated. Chest x-ray unremarkable. White count normal at 6.5, hemoglobin 10.4. Platelet count 123. Sodium 137, potassium 4.0. BUN of 15, creatinine 0.89 with a GFR of 88. Glucose 168. Urine was positive for UTI. Troponin negative. Procalcitonin 0.23 lactic acid normal. Patient admitted for further evaluation and treatment. Patient given IV fluids in the emergency room. Antibiotics to be initiated. Hospital Course: Patient presented with confusion. This was secondary to toxic encephalopathy related to UTI and dehydration. CT head unremarkable. Chest x-ray unremarkable. Patient was found to have a UTI. Patient was started on antibiotic therapy with improvement. Patient now back to baseline. Patient was evaluated by physical therapy. 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 Patient with prior multiple procedures in the past as well. At discharge physical therapy recommended a Maia lift to help at home. At discharge the patient will continue with Augmentin 500 mg twice daily for 7 days to treat for the UTI. UTI prevention will be educated. Patient will continue with home health and physical therapy at discharge. Recommend follow-up with PCP to monitor and follow-up cultures. Education on UTI prevention provided to who takes care of patient. Patient likely with underlying GERD. Patient had reported some discomfort. KUB unremarkable. Patient tolerating diet. No further pain noted. Patient is madelin ing ibuprofen and indomethacin for chronic pain. Will recommend to discontinue both due to history of gastritis. Will recommend at discharged to discontinue ibuprofen and indomethacin. Will change Prilosec to Protonix 40 mg daily. Recommend follow-up with GI as an outpatient to further address. Patient with anemia of chronic disease and iron deficiency. Previous lab reviewed. Will recommend to start iron supplementation twice daily along with thiamine 100 mg daily and folic acid daily. Recommend to recheck labCBC in 1 week to monitor his progress. Patient with diabetes mellitus type 2. At discharge patient may continue with Metformin 500 mg 1 pill twice daily. Recommend to maintain blood sugar less than 140 fasting and less than 200 after meals. Further adjustment can be done by his PCP. Patient with atrial fibrillation. Rate controlled. Overall stable. At discharge patient will continue with sotalol 80 mg daily. Patient also takes Plavix 75 mg daily. Patient with history of CVA and hyperlipidemia. At discharge patient will continue with Plavix 75 mg daily and Lipitor 80 mg daily. Patient with chronic pain. As mentioned above indomethacin and ibuprofen has been discontinued due to his history of gastritis, anemia. Patient may continue with his other medications including gabapentin 600 mg 1 pill twice daily. Patient also taking buprenorphine 8 mg 3 times a day. This is being managed by pain management. Recommend follow-up with pain management to further monitor and address. As recommended above patient will use Maia lift and continue with home health and physical therapy. Patient with depression and anxiety. At discharge patient will continue with Effexor as directed and clonazepam as directed. Vital Signs/Physical Exam: Temp Pulse Resp BP Pulse Ox 99.1 F 76 16 118/58 L 95 11/15/20 12:00 11/15/20 12:00 11/15/20 12:00 11/15/20 12:00 11/15/20 12:00 General: Alert, In no apparent distress, Oriented x3, Cooperative HEENT: Atraumatic Neck: Supple Respiratory: Clear to auscultation bilaterally, Normal air movement Cardiovascular: Normal pulses, Regular rate/rhythm Gastrointestinal: Soft and benign, Non-distended, No tenderness, No masses, No rebound, No guarding Neurological: Normal affect, Other (Weakness to the lower extremities bilateral. Patient with chronic arthritis especially to the right side.), Abnormal strength Laboratory Data at Discharge: WBC 3.30 K/uL (4.3-10.9) L D 11/15/20 06:39 Hgb 9.0 g/dL (13.6-17.9) L 11/15/20 06:39 Hct 26.9 % (39.6-49.0) L 11/15/20 06:39 Plt Count 87 K/uL (152-406) L D 11/15/20 06:39 PT 13.1 SECONDS (9.5-12.5) H 11/14/20 12:00 INR 1.14 11/14/20 12:00 APTT 28.3 SECONDS (24.3-36.9) 11/14/20 12:00 Sodium 141 mmol/L (136-145) 11/15/20 06:00 Potassium 4.6 mmol/L (3.5-5.1) 11/15/20 06:00 BUN 10 mg/dL (7-18) 11/15/20 06:00 Creatinine 0.62 mg/dL (0.55-1.3) 11/15/20 06:00 Glucose 108 mg/dL (74-106) H 11/15/20 06:00 Magnesium 1.5 mg/dL (1.8-2.4) L 11/15/20 06:00 Total Bilirubin 0.5 mg/dL (0.2-1.0) 11/14/20 12:00 AST 25 U/L (15-37) 11/14/20 12:00 ALT 25 U/L (12-78) 11/14/20 12:00 Alkaline Phosphatase 95 U/L (45-117) 11/14/20 12:00 Amylase 43 U/L (25-115) 11/14/20 12:00 Lipase 55 U/L (73-393) L 11/14/20 12:00 Home Medications: Sotalol HCl [Betapace*] 80 mg PO DAILY 08/12/18 Atorvastatin Calcium [Lipitor] 80 mg PO DAILY #30 tablet 08/13/18 Clopidogrel Bisulfate [Plavix*] 75 mg PO DAILY #30 tablet 08/13/18 Insulin -Regular Human [Novolin -R*] See Protocol SQ ACHS #1 vial 08/13/18 Gabapentin 1 tab PO TID 11/14/20 Metformin HCl [Metformin HCl ER] 1 tab PO BID 11/14/20 Venlafaxine HCl [Venlafaxine HCl ER] 1 cap PO DAILY 11/14/20 buprenorphine HCL [Buprenorphine HCl] 8 mg SL Q8HR 11/14/20 clonazePAM [Clonazepam] 1 tab PO BID 11/14/20 Amox/Clavulanate [Augmentin 500-125 mg Tab] 500 mg PO BID #14 tab 11/15/20 Ferrous Sulfate [Iron] 325 mg PO BID #60 tablet 11/15/20 Folic Acid 1 mg PO DAILY #90 tablet 11/15/20 Pantoprazole [Protonix Tab] 40 mg PO DAILY #40 tab 11/15/20 Thiamine HCl 100 mg PO DAILY #90 tablet 11/15/20 New Medications: Amox/Clavulanate [Augmentin 500-125 mg Tab] 500 mg PO BID #14 tab Folic Acid 1 mg PO DAILY #90 tablet Ferrous Sulfate [Iron] 325 mg PO BID #60 tablet Pantoprazole [Protonix Tab] 40 mg PO DAILY #40 tab Thiamine HCl 100 mg PO DAILY #90 tablet Physician Discharge Instructions: Patient presented with confusion. This was secondary to toxic encephalopathy related to UTI and dehydration. CT head unremarkable. Chest x-ray unremarkable. Patient was found to have a UTI. Patient was started on antibiotic therapy with improvement. Patient now back to baseline. Patient was evaluated by physical therapy. 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 Patient with prior multiple procedures in the past as well. At discharge physical therapy recommended a Maia lift to help at home. At d ischarge the patient will continue with Augmentin 500 mg twice daily for 7 days to treat for the UTI. UTI prevention will be educated. Patient will continue with home health and physical therapy at discharge. Recommend follow-up with PCP to monitor and follow-up cultures. Education on UTI prevention provided to who takes care of patient. Patient likely with underlying GERD. Patient had reported some discomfort. KUB unremarkable. Patient tolerating diet. No further pain noted. Patient is taking ibuprofen and indomethacin for chronic pain. Will recommend to discontinue both due to history of gastritis. Will recommend at discharged to discontinue ibuprofen and indomethacin. Will change Prilosec to Protonix 40 mg daily. Recommend follow-up with GI as an outpatient to further address. Patient with anemia of chronic disease and iron deficiency. Previous lab reviewed. Will recommend to start iron supplementation twice daily along with thiamine 100 mg daily and folic acid daily. Recommend to recheck labCBC in 1 week to monitor his progress. Patient with diabetes mellitus type 2. At discharge patient may continue with Metformin 500 mg 1 pill twice daily. Recommend to maintain blood sugar less than 140 fasting and less than 200 after meals. Further adjustment can be done by his PCP. Patient with atrial fibrillation. Rate controlled. Overall stable. At [facility] patient will continue with sotalol 80 mg daily. Patient also takes Plavix 75 mg daily. Patient with history of CVA and hyperlipidemia. At discharge patient will continue with Plavix 75 mg daily and Lipitor 80 mg daily. Patient with chronic pain. As mentioned above indomethacin and ibuprofen has been discontinued due to his history of gastritis, anemia. Patient may continue with his other medications including gabapentin 600 mg 1 pill twice daily. Patient also taking buprenorphine 8 mg 3 times a day. This is being managed by pain management. Recommend follow-up with pain management to further monitor and address. As recommended above patient will use Maia lift and continue with home health and physical therapy. Patient with depression and anxiety. At discharge patient will continue with Effexor as directed and clonazepam as directed. Diet: ADA Activity: Fall precautions Followup: [facility] [Primary Care Provider] - Time spent managing pt's care (in minutes): 55
[2020-11-15 22:33] VITALS: BP 175/74; TEMP 98.8
== END 2020-11-15 20:45 | disposition home health service (06) ==
LOC: ER 10:16 → ERHOLD 15:01 → 2ND 20:41
PROVIDERS: ADMIT Family Medicine; ATTEND Family Medicine
DX: N39.0 Urinary tract infection, site not specified (principal); E86.0 Dehydration; G92 Toxic encephalopathy; E11.40 Type 2 diabetes mellitus with diabetic neuropathy, unspecified; I48.91 Unspecified atrial fibrillation; I10 Essential (primary) hypertension; N40.0 Benign prostatic hyperplasia without lower urinary tract symptoms; F41.8 Other specified anxiety disorders; G89.29 Other chronic pain; R53.1 Weakness; K21.9 Gastro-esophageal reflux disease without esophagitis; D63.8 Anemia in other chronic diseases classified elsewhere; E61.1 Iron deficiency; E78.5 Hyperlipidemia, unspecified; M19.90 Unspecified osteoarthritis, unspecified site; G20 Parkinson's disease; Z79.02 Long term (current) use of antithrombotics/antiplatelets; Z79.4 Long term (current) use of insulin; Z87.19 Personal history of other diseases of the digestive system; Z86.73 Personal history of transient ischemic attack (TIA), and cerebral infarction without residual deficits; Z85.528 Personal history of other malignant neoplasm of kidney; Z90.5 Acquired absence of kidney; Z77.090 Contact with and (suspected) exposure to asbestos; Z20.822 Contact with and (suspected) exposure to COVID-19; Z83.3 Family history of diabetes mellitus
CPT/HCPCS: 96365; 96367; 96361; 93005; 87040 ×2; 87088; 85025 ×2; 87086; 80048 ×2; 36415; 82150; 83735; 82550; 87205; 85610; 82947 ×5; 80076; 83605; 85730; 84443; 87077 ×2; 87186 ×2; 84484; 82553; 84439; 83690; 84145; 70450; 74018; 71045; 97161; 97530 ×2; 99285; U0003; J1650; J3475; J0696; J7030 ×3; 81003; 81015; G0378; J1815

== ENCOUNTER 2020-11-23 17:18 | Emergency (ER) | payer OTHER ==
--- OUTSIDE RECORDS SUMMARY | 2020-11-23 17:21 | XMS REPORT | Continuity of Care Document ---
:1955 Author Organization [facility] t Address [address] [place] [address] Care Team Providers Name Role Phone WEN Attending Clinician Unavailable LISA Attending Clinician Unavailable Clyde Pacheco MD Attending Clinician Andrew Rao MD Attending Clinician Payers Payer Name Policy Type Policy Number Effective Date Expiration Date S ource Problems This patient has no known problems. Allergies, Adverse Reactions, Alerts Allergy Allergy Status Severity Reaction(s) Onset Inactive Treating Comm ents Source Name Type Date Date Clinician No Known DA Active U 2011-08 [facility] 0-03 Clear Allergie 00:00: Cabrera [facility] Medications Ordered Filled Start Stop Current Ordering Indication Dosage Frequency Signature Comments Components Source Medication Medication Date Date Medication? Clinician (SIG) Name Name Humulin R Humulin R 2020-0 Yes Bryant [address] [facility] 8-07 [place] PRN for BG [facility] >200 1 hr [facility] 00 after l meals Outpati ent Clinics Pen Garnett Pen Garnett 2018-08 Yes Bryant [address] [facility] 1-11 [facility] needle [facility] Lancets Lancets 2018-08 Yes Bryant [address] 1[facility]11 [facility] Clinics One Touch One Touch Yes Bryant [address] [facility] Ultra Test Ultra Test 5-02 [place] test blood [facility] - Strips Strips 00:00: glucose [facility] a 00 l Outpati ent Clinics Blood Blood 2017-08 Yes Bryant as [facility] Glucose Glucose 2-21 [place] directed Luke [facility] - Test Strip Test Strip 00:00: (DISPENSE [facility] 00 BLOOD TEST l STRIPS OF Outpati RECORD) ent Clinics [id number] Yes Bryant as [facility] directed [facility] Aripiprazol Aripiprazol Yes Bryant [address] [facility] e Loera [facility] Levemir Levemir Yes Bryant [address] [facility] [address] FlexTouch FlexTouch [facility] Atorvastati Atorvastati Yes Bryant [address] [facility] n Calcium n Calcium Loera [facility] Gemfibrozil Gemfibrozil Yes Bryant [address] [facility] Baclofen Baclofen Yes Bryant [address] [facility] with food [facility] - or milk [facility] Sotalol HCl Sotalol HCl Yes Bryant [address] [facility] Loera [facility] Aspir-Low Aspir-Low Yes Bryant [address] [facility] Loera [facility] MetFORMIN MetFORMIN Yes Bryant [address] [facility] HCl ER HCl ER [facility] with [facility] evening [facility] meal l [facility] OneTouch OneTouch Yes Bryant USE [address] [facility] Ultra Ultra [place] STRIP TO [facility] - TEST BLOOD [facility] GLUCOSE l TWICE Outpati DAILY ent Clinics Venlafaxine Venlafaxine Yes Bryant [address] [facility] HCl ER HCl ER [place] with food [facility] Gabapentin Gabapentin Yes Bryant as [facility] directed [facility] Plavix Plavix Yes Bryant TAKE [address] [facility] [place]era TABLET BY [facility] - MOUTH [facility] DAILY l Outpati ent Clinics MetFORMIN MetFORMIN Yes Bryant TAKE [address] HCl ER HCl ER [place] TABLET BY [facility] TWICE l DAILY Outpati ent Clinics Indocin Indocin Yes Bryant [address] [facility] with food [facility] - or milk [facility]ics Desipramine Desipramine Yes Bryant [address] [facility] HCl HCl [facility] D3 Adult D3 Adult Yes Bryant [address] [facility] Procedures This patient has no known procedures. Encounters Start End Encounter Admission Attending Care Care Encounter Source Date/Time Date/Time Type Type Clinicians Facility Department ID 2020-11-07 2020-11-07 Outpatient WEN [facility] [id number] [place] 00:00:00 00:00:00 ALICIA [facility] 2020-10-15 2020-10-15 Outpatient [facility] [id number] [facility] 00:00:00 00[facility]00[facility]00 [facility] 2020-09-25 2020-09-25 Outpatient [facility] [id number] [facility] 00:00:00 00[facility]00:00 [facility] 2020-09-23 2020-09-23 Outpatient [facility] [id number] [facility] 00:00:00 00:00:00 [facility] 2020-08-23 2020-08-23 Outpatient [facility] [id number] [facility] 00[facility]00:00 00[facility]00:00 [facility] 2020-08-20 2020-08-20 Outpatient [facility] [id number] [facility] 2020-08-14 2020-08-14 Outpatient [facility] [id number] [facility] 00:00:00 00[facility]00:00 [facility] 2020-08-12 2020-08-12 [facility] [id number] [facility] 2020-08-09 2020-08-09 Outpatient [facility] [id number] [facility] 2020-03-22 2020-03-22 [facility] [id number] [address] 08:45:00 08:45:00 t Conway loanDepot s - Drive [facility] l Medicine Outpati ent Clinics 2020-03-08 2020-03-08 [facility] [id number] 10:26:00 10:26:00 t [place] [employer] s - Drive [facility] Medicine Outpati ent Clinics 2020-03-05 2020-03-05 [facility] [id number] [address] 16:14:00 16:14:00 t Sophie & Juliet s - [place] [facility] l Medicine Outpati ent Clinics 2020-03-01 2020-03-01 [facility] [id number] [address] 10:00:00 10:00:00 t [place] loanDep[employer] s - Drive [facility] Medicine l Medicine Outpati ent Clinics 2020-03-01 2020-03-01 [facility] [id number] 10[facility]00:00 10:00:00 t Sophie & Juliet s - Drive [facility] Medicine Medicine Outpati ent Clinics 2020-01-10 2020-01-10 [facility] [id number] 13:52:00 13:52:00 t Specialty/U Jessica kes - Specialty rology Memori a /Urology Clinic l Clinic Outpati ent Clinics 2019-12-28 2019-12-28 [facility] [id number] 13:15:00 13:15:00 t Specialty/U Jessica kes - Specialty rology Memori a /Urology Clinic l Clinic Outpati ent Clinics 2019-11-16 2019-11-16 [facility] [id number] 15:00:00 15:00:00 t Specialty/U Jessica kes - Specialty rology Memori a /Urology Clinic l Clinic Outpati ent Clinics 2019-10-20 2019-10-20 [facility] [id number] 10:09:00 10:09:00 t Specialty/U Jessica kes - Specialty rology Memori a /Urology Clinic l Clinic Outpati ent Clinics 2019-10-18 2019-10-18 [facility] [id number] 08:30:00 08:30:00 t Specialty/U Jessica kes - Specialty rology Memori a /Urology Clinic l Clinic Outpati ent Clinics 2019-10-17 2019-10-17 [facility] [id number] 15:00:00 15:00:00 t Conway [employer] Project Luke s - Drive [facility] l Medicine Outpati ent Clinics 2019-10-13 2019-10-13 [facility] [id number] 15[facility]13:00 15:13:00 t Sophie & Juliet s - Drive [facility] l Medicine Outpati ent Clinics 2019-09-15 2019-09-15 [facility] [id number] 09:00:00 09:00:00 t [place] [employer] s - Drive [facility] l Medicine Outpati ent Clinics 2019-08-10 2019-08-10 [facility] [id number] 11:32:00 11:32:00 t [place] [employer] s - Drive [facility] l Medicine Outpati ent Clinics 2019-07-17 2019-07-17 [facility] [id number] 16:43:00 16:43:00 t [place] [employer] s - Drive [facility] l Medicine Outpati ent Clinics 2019-06-21 2019-06-21 [facility] [id number] 11:12:00 11:12:00 t [place] [employer] s - Drive [facility] l Medicine Outpati ent Clinics 2019-06-19 2019-06-19 [facility] [id number] 14:00:00 14:00:00 t [place] [employer] s - Drive [facility] Medicine l Medicine Outpati ent Clinics 2019-06-12 2019-06-12 [facility] [id number] 15:55:00 15:55:[address] Luke s - Drive [facility] Medicine Medicine Outpati ent Clinics 2019-06-01 2019-06-01 [facility] [id number] 13:44:00 13:44:[address] Luke s - Drive [facility] l Medicine Outpati ent Clinics 2019-05-24 2019-05-24 [facility] [id number] 13:44:00 13:44:[address] Luke s - Drive [facility] Medicine Medicine Outpati ent Clinics 2019-05-18 2019-05-18 [facility] [id number] 10:50:00 10:50:[address] Luke s - Drive [facility] Medicine Outpati ent Clinics 2019-05-05 2019-05-05 Outpatient LISA, [facility] [id number] [address] [place] [address] 00:00:00 00:00:00 DEB [address] 2019-05-01 2019-05-01 [facility] [id number] 15:00:00 15:00:[address] Luke s - Drive [facility] Medicine Outpati ent Clinics 2019-04-14 2019-04-14 [facility] [id number] 16:09:00 16:09:[address] Luke s - Drive [facility] Medicine Outpati ent Clinics 2019-03-08 2019-03-08 [place] [id number] 00:00:00 00:00:00 Tara, Y HEALTH [id number] [facility] [id number] 082019-03-07 2019-03-07 Case Jalen, [facility] [id number] 00:00:00 00:00:00 Management Madelyn [facility] [id number] [facility] [id number] 2019-03-01 2019-03-01 [facility] [id number] 13:52:00 13:52:[address] Luke s - Drive [facility] l Medicine Outpati ent Clinics 2019-02-23 2019-02-23 [facility] [id number] 16:56:13 23:59:00 Encounter Madelyn [facility] [id number] [facility] [id number] 2019-02-23 2019-02-23 Office [facility] [id number] 15:34:50 18:38:56 Visit [facility] [id number] [facility] [id number] 2018-12-01 2018-12-01 [facility] [id number] 10:52:00 10:52:00 Kiwi Crate [facility] l Medicine Outpati ent Clinics 2018-11-29 2018-11-29 [facility] [id number] 14:45:00 14:45:00 [facility] Medicine l Medicine Outpati ent Clinics 2018-09-28 2018-09-28 [facility] [id number] 10:43:00 10:43:[address] [facility] Medicine l Medicine Outpati ent Clinics 2018-08-16 2018-08-16 [facility] [id number] 12:06:00 12:06:[address] [facility] Medicine l Medicine Outpati ent Clinics 2018-07-25 2018-07-25 [facility] [id number] 10:56:00 10:56:[address] [facility] Medicine l Medicine Outpati ent Clinics 2018-07-22 2018-07-22 [facility] [id number] 01:11:00 01:11:[address] [facility] Medicine l Medicine Outpati ent Clinics 2018-07-20 2018-07-20 [facility] [id number] 13:00:00 13:00:[address] [facility] Medicine l Medicine Outpati ent Clinics 2018-07-19 2018-07-19 [facility] [id number] 14:38:00 14:38:00 t [facility] Medicine Outpati ent Clinics 2018-07-15 2018-07-15 [facility] [id number] 16:01:00 16:01:00 [facility] Medicine Outpati ent Clinics 2018-07-14 2018-07-14 [facility] [id number] 15:35:00 15:35:00 [facility] Medicine Outpati ent Clinics 2018-04-21 2018-04-21 [facility] [id number] 09:04:00 09:04:00 [facility] Medicine Outpati ent Clinics 2018-04-20 2018-04-20 [facility] [id number] [facility] 22:17:00 22:17:00 [facility] Medicine Outpati ent Clinics 2018-04-20 2018-04-20 [facility] [id number] 14:30:00 14:30:00 [facility] Outpati ent Clinics Results Test Description Test Time Test Comments Results Result Comments Source GLUCOSE BEDSIDE TESTING 2019-10-02 16:50:00 Test Item Value Reference Range Interpretation Comme nts GLUCOSE BEDSIDE TESTING (test code = GLUBED) 98 mg/dL 70-110 N - XR FLUOROSCOPY 0-60 [id number] 16:05:00 Name: ANABELA RUTH [facility] : 1955 Age/S: 64 / M [address] Unit #: [id number] Loc: [place] [address] Phys: Trever Calvillo MD Acct: [id number] Dis Date: Status: [facility] PHONE #: [phone] Exam Date: 10/02/2019 1500 FAX #: Reason: LEFT FEMUR JUN PLATE REMOVAL EXAMS: CPT: [id number] XR FLUOROSCOPY 0-60 MIN 14603 Fluoro Time: 17 SEC DAP (Gy m2): [...] PAGE 1 Signed Report Name: ANABELA RUTH [facility] : 1955 Age/S: 64 / M [address] Unit #: [id number] Loc: [place] [address] Phys: Trever Calvillo MD Acct: [id number] Dis Date: Status: REG [facility] PHONE #: [phone] Exam Date: 10/02/2019 1500 FAX #: Reason: LEFT FEMUR JUN PLATE REMOVAL EXAMS: CPT: [id number] XR FLUOROSCOPY 0-60 MIN 84460 Fluoro Time: 17 SEC DAP (Gy m2): Air Kerma (mGy): <Continued> Technologist: Raine Vera, RT(R) Trnscb Date/Time: 10/02/2019 (160) [email or web address] Orig Print D/T: S: 10/02/2019 (9391) PAGE 2 Signed Report UA RFLX MICR CULT IF [id number] 08:47:00 Test Item Value Reference Range Interpretation [...] PRE OP EVALUA RFLX MICR CULT IF [id number] 08:46:00 Test Item Value Reference Range Interpretation [...] Dysuria/FrequencySpec Comments: INDICATION: PRE OP EVALBASIC METABOLIC [id number] 07:29:00 Test Item Value Reference Range Interpretation [...] CA) 9.1 MG/DL 8.5-10.1 N VITAMIN D [id number] 07:29:00 Test Item Value Reference Range Interpretation Comments VITAMIN D 14.1 ng/mL 30.0-100.0 A Vitamin D defic iency has 25-HYDROXY (test been define d by the code = VITD25) [facility] edicine and an Endocrine So ciety practice guidel ine as alevel of serum 25-OH vitamin D less than 20 ng/mL (1,2).The Endocrine Society went on to further define vitamin Dinsufficiency as a level between 21 and 29 ng/mL (2).1. IOM (Ins titute of Medicine). 2010 . Dietary reference int akes for calcium and D. Pace DC: The [employer] .2. Sailaja MF, [place], Dianna i MOSER, et al. Evaluatio n, treatment, and prevention of vitamin D deficiency: an Endocrine Society clinica l practice guideline. CONRAD EM. 2010; 96(7):1911-30.P erformed At: [facility] [id number] [place], [place] [id number] Trever Ac MD Ph:[phone] BASIC METABOLIC [id number] 07:08:00 Test Item Value Reference Range Interpretation [...] CA) 9.1 MG/DL 8.5-10.1 N VITAMIN D [id number] 07:08:00 Test Item Value Reference Range Interpretation Comments VITAMIN D 25-HYDROXY (test code = 14.1 VITD25) CBC W/AUTO [id number] 14:54:00 Test Item Value Reference Range Interpretation [...] code = NO DIFF/SCN CRITERIA MDIFF) SED [id number] 14:54:00 Test Item Value Reference Range Interpretation Comments SED RATE (test code = SEDW) 80 mm/hr 0-20 H - XR CHEST 2 [id number] 14:38:00 [facility] [place] [facility] 1955 Age/S: 64 / M [address] Unit #: [id number] Loc: [place] [address] Phys: Trever Calvillo MD Acct: [id number] Dis Date: Status: PRE NCC PHONE #: [phone] Exam Date: 09/19/2019 1400 FAX #: Reason: PREOP EXAMS: CPT: [id number] XR CHEST 2 V 94881 Fluoro Time: DAP (Gy m2): Air Kerma [...] PAGE 1 Signed Report Name: [facility] [place] [facility] 1955 Age/S: 64 / M [address] Unit #: [id number] Loc: [place] [address] Phys: Trever Calvillo MD Acct: [id number] Dis Date: Status: PRE SDC PHONE #: [phone] Exam Date: 09/19/2019 1400 FAX #: Reason: PREOP EXAMS: CPT: [id number] XR CHEST 2 V 46039 Fluoro Time: DAP (Gy m2): Air Kerma (mGy): <Continued> Technologist: Raine Vera, RT(R) Trnscb Date/Time: 09/19/2019 (9365) [email or web address] Orig Print D/T: S: 09/19/2019 (8760) PAGE 2 Signed ReportC REACTIVE [id number] 13:53:00 Test Item Value Reference Range Interpretation Comments C REACTIVE PROTEIN (test code = 0.629 MG/DL 0.000-0.3 H CRP) BASIC METABOLIC [id number] 13:52:00 Test Item Value Reference Range Interpretation [...] CA) 9.1 MG/DL 8.5-10.1 N VITAMIN D [id number] 13:52:00 Test Item Value Reference Range Interpretation Comments VITAMIN D 25-HYDROXY (test code = VITD25) PROTHROMBIN [id number] 13:42:00 Test Item Value Reference Range Interpretation Comments PT PATIENT (test code = PTP) 13.2 SECONDS 9.3-12.9 H INTERNATIONAL NORMAL RATIO 1.16 INR Unit 0.8-1.2 N (test code = INR) THROMBOPLASTIN TIME [id number] 13:42:00 Test Item Value Reference Range Interpretation Comments THROMBOPLASTIN TIME PARTIAL 34.7 SECONDS 26-35 N (test code = PTT) CBC W/AUTO [id number] 13:33:00 Test Item Value Reference Range Interpretation [...] code = NO DIFF/SCN CRITERIA MDIFF) SED [id number] 13:33:00 Test Item Value Reference Range Interpretation Comments SED RATE (test code = SEDW) mm/hr 0-20 - CT LOWER EXTRM W/O C [id number] 11:45:00 Name[facility] [place] [facility] 1955 Age/S: 64 / M [address] Unit #: [id number] Loc: [place] [address] Phys: Trever Calvillo MD Acct: [id number] Dis Date: Status: PRE CLI PHONE #: [phone] Exam Date: 09/19/2019 1100 FAX #: Reason: PAIN LFT KNEE EXAMS: CPT: [id number] [place]TRM W/[place] [address] EXAM: - CTLOWER EXTRM W/O C LT [...] PAGE 1 Signed Report (CONTINUED) Name: ANABELA RUTHland : 1955 Age/S: 64 / M [address] Unit #: [id number] Loc: [place] [address] Phys: Trever Calvillo MD Acct: [id number] Dis Date: Status: PRE CLI PHONE #: [phone] Exam Date: 09/19/2019 1100 FAX #: Reason: PAIN LFT KNEE EXAMS: CPT: [id number] [place]OWER EXTRM W/[place] [address] <Continued> at 1145 Reported and signed by: Oswald Devi MD CC: Trever Calvillo MD; Kiran Loera MD Technologist:Desire Hernandez RT(R)(MR) CTDI: DLP: Trnscb Date/Time: 09/19/2019 (1145) [email or web address] Orig Print D/T: S: 09/19/2019 (8288) PAGE 2 Signed Report
[2020-11-23 22:07] LABS: Absolute Lymphocytes (CBC) 2.2 K/uL (0.7-4.9); Basophils % 0.3 % (0-1.3); Hematocrit 31.7 % (39.6-49.0); Lymphocytes % 24.1 % (15.3-44.8); MPV 8.1 fL (7.6-11.3); RBC Red Blood Cell Count 3.46 M/uL (4.33-5.43)
[2020-11-23 22:24] LABS: Protime INR 1.08
[2020-11-23] MEDS ORDERED: NA CHLORIDE 0.9% 1,000 ML ONE (22:35)
[2020-11-23] MEDS ORDERED: FAMOTIDINE 20 MG/2 ML VIAL IV ONE (22:35)
[2020-11-23 22:36] LABS: ALT/SGPT 32 U/L (12-78); AST/SGOT 33 U/L (15-37); Albumin 3.6 g/dL (3.4-5.0); Alkaline Phosphatase 112 U/L (45-117); BUN Blood Urea Nitrogen 13 mg/dL (7-18); Bicarbonate 28 mmol/L (21-32); Bilirubin Direct 0.1 mg/dL (0-0.2); Bilirubin Total 0.4 mg/dL (0.2-1.0); Glucose Level 117 mg/dL (74-106); Lipase 78 U/L (73-393); Magnesium 1.7 mg/dL (1.8-2.4); NT PRO-BNP 145 pg/mL (<125); Potassium 4.1 mmol/L (3.5-5.1); Protein, Total 8.7 g/dL (6.4-8.2); Sodium Level 140 mmol/L (136-145); Troponin (Emerg Dept Use Only) < 0.02 ng/mL (0.0-0.045)
[2020-11-23 23:25] LABS: Urine Blood Trace-lysed (Negative); Urine Glucose Negative (Negative); Urine Protein Trace (Negative); Urine pH 5.5 (5.0-7.0)
--- NOTE | 2020-11-24 03:22 | EDPHYS ---
Physician Documentation [facility] Name: David Lopez Age: 65 yrs Sex: Male : 1955 Arrival Date: 11/23/2020 Time: 17:20 Bed 27 Private MD: ED Physician Nemesio Lara HPI: 11/23 22:32 This 65 yrs old Male presents to ER via Wheelchair with complaints of mh7 weakness. diarrhea. dehydration. 22:32 The patient presents to the emergency department with nausea, that is moderate, mh7 diarrhea, that is intermittent. Onset: The symptoms/episode began/occurred yesterday. Possible causes: unknown. The symptoms are aggravated by nothing. The symptoms are alleviated by nothing. Associated signs and symptoms: Pertinent positives: anorexia, diarrhea, nausea, generalized weakness, Pertinent negatives: abdominal pain, belching, constipation, dysuria, fever, flatulence, GI bleeding, hematuria. Severity of symptoms: At their worst the symptoms were moderate yesterday, in the emergency department the symptoms are unchanged. The patient has been recently been admitted at [facility], was discharged earlier this week. Historical: - Allergies: 18:07 No Known Allergies; ll1 - PMHx: 18:07 CVA; Diabetes - NIDDM; Hypertension; ll1 - PSHx: 18:07 back sx x 3, femur x 3, bilat hips; L kidney CA; ll1 - Immunization history:: Client reports receiving the 2nd dose of the Covid vaccine, Flu vaccine is up to date. - Social history:: Smoking status: Patient denies any tobacco usage or history of. ROS: 22:32 Constitutional: Negative for fever, chills, and weight loss, Eyes: Negative for injury, mh7 pain, redness, and discharge, ENT: Negative for injury, pain, and discharge, Neck: Negative for injury, pain, and swelling, Cardiovascular: Negative for chest pain, palpitations, and edema, Respiratory: Negative for shortness of breath, cough, wheezing, and pleuritic chest pain, Back: Negative for injury and pain, : Negative for injury, bleeding, discharge, and swelling, MS/Extremity: Negative for injury and deformity, Skin: Negative for injury, rash, and discoloration. 22:32 Psych: Negative for depression, anxiety, suicide ideation, homicidal ideation, and hallucinations, Allergy/Immunology: Negative for hives, rash, and allergies, Endocrine: Negative for neck swelling, polydipsia, polyuria, polyphagia, and marked weight changes, Hematologic/Lymphatic: Negative for swollen nodes, abnormal bleeding, and unusual bruising. 22:32 Neuro: Positive for altered mental status, per , Negative for dizziness, headache, hearing loss, loss of consciousness, numbness, seizure activity, speech changes, syncope, near syncope, tingling, tinnitus, tremor, visual changes. Exam: 22:36 Head/Face: Normocephalic, atraumatic. Eyes: Pupils equal round and reactive to light, mh7 extra-ocular motions intact. Lids and lashes normal. Conjunctiva and sclera are non-icteric and not injected. Cornea within normal limits. Periorbital areas with no swelling, redness, or edema. Neck: Trachea midline, no thyromegaly or masses palpated, and no cervical lymphadenopathy. Supple, full range of motion without nuchal rigidity, or vertebral point tenderness. No Meningismus. Chest/axilla: Normal chest wall appearance and motion. Nontender with no deformity. No lesions are appreciated. Cardiovascular: Regular rate and rhythm with a normal S1 and S2. No gallops, murmurs, or rubs. Normal PMI, no JVD. No pulse deficits. Respiratory: Lungs have equal breath sounds bilaterally, clear to auscultation and percussion. No rales, rhonchi or wheezes noted. No increased work of breathing, no retractions or nasal flaring. Abdomen/GI: Soft, non-tender, with normal bowel sounds. No distension or tympany. No guarding or rebound. No evidence of tenderness throughout. Back: No spinal tenderness. No costovertebral tenderness. Full range of motion. Skin: Warm, dry with normal turgor. Normal color with no rashes, no lesions, and no evidence of cellulitis. 22:36 Psych: Awake, alert, with orientation to person, place and time. Behavior, mood, and affect are within normal limits. 22:36 Constitutional: The patient appears in no acute distress, alert, awake, frail. 22:36 Musculoskeletal/extremity: Circulation is intact in all extremities. Sensation intact. Weight bearing: is unable to bear weight, baseline non ambulatory. 22:36 Neuro: Orientation: is normal, Mentation: appropriate for stated age, Memory: appropriate for stated age, Cranial nerves: grossly normal, Cerebellar function: is grossly normal, Motor: upper extremities normal, lower extremities rigid, Sensation: is normal, Gait: not tested. seizure activity, is not displayed by the patient, Abnormal movements: there are no abnormal movements. Vital Signs: 18:02 BP 108 / 75; Pulse 91; Resp 16; Temp 99.3; Pulse Ox 96% ; Weight 65.77 kg; Height 5 ft. ll1 2 in. (157.48 cm); Pain 8/10; 21:55 BP 115 / 71 LA Supine (auto/reg); Pulse 73; Resp 18; Pulse Ox 96% on R/A; Pain 8/10; jp3 23:00 BP 134 / 61; Pulse 69; Resp 11; Pulse Ox 97% ; Pain 6/10; jp3 11/24 00:00 BP 133 / 60; Pulse 72; Resp 16 S; Pulse Ox 97% on R/A; bb 01:00 BP 124 / 68; Pulse 73; Resp 16 S; Pulse Ox 97% on R/A; bb 03:11 BP 133 / 69; Pulse 72; Resp 16; Pulse Ox 98% on R/A; tt3 03:39 BP 133 / 67; Pulse 78; Resp 20 S; Temp 98.3(O); Pulse Ox 98% ; bb 11/23 18:02 Body Mass Index 26.52 (65.77 kg, 157.48 cm) ll1 MDM: 03:18 Differential diagnosis: pancreatitis, diverticulitis, viral gastroenteritis, mh7 gastroenteritis, Diarrhea, dehydration. Data reviewed: vital signs, nurses notes, old medical records, lab test result(s), cardiac enzymes, CBC, electrolytes, urinalysis, EKG, radiologic studies, CT scan. Data interpreted: Pulse oximetry: on room air is 98 %. Interpretation: normal. Counseling: I had a detailed discussion with the patient and/or guardian regarding: the historical points, exam findings, and any diagnostic results supporting the discharge/admit diagnosis, lab results, radiology results, the need for outpatient follow up. Response to treatment: the patient's symptoms have resolved after treatment, the patient's blood pressure is in an acceptable range, mental status has returned to baseline, the patient no longer shows bradycardia, the patient is not short of breath, the patient is not tachycardic, the patient's pain is gone, the patient's temperature has normalized, patient is well hydrated. 03:[address] [facility] 11/23 21:43 Order name: Basic Metabolic Panel [facility] 11/23 21:43 Order name: CBC with Diff [facility] 11/23 21:43 Order name: LFT's; Complete Time: 22:45 [facility] 11/23 21:43 Order name: Magnesium; Complete Time: 22:45 [facility] 11/23 21:43 Order name: NT PRO-BNP; Complete Time: 22:45 [facility] 11/23 21:43 Order name: PT-INR; Complete Time: 22:40 [facility] 11/23 21:43 Order name: Troponin (emerg Dept Use Only); Complete Time: 22:45 [facility] 11/23 21:43 Order name: XRAY Chest (1 view) [facility] 11/23 21:43 Order name: Lipase; Complete Time: 22:45 [facility] 11/23 21:43 Order name: Basic Metabolic Panel; Complete Time: 22:45 [facility] 11/23 21:43 Order name: CBC with Automated Diff; Complete Time: 22:13 [facility] 11/23 22:46 Order name: CT Head Brain wo Cont [facility] 11/23 22:46 Order name: CT Abd/Pelvis - IV Contrast Only [facility] 11/23 23:24 Order name: Urine Dipstick-Ancillary; Complete Time: 00:10 [facility] 11/23 21:43 Order name: EKG; Complete Time: 21:44 [facility] 11/23 21:43 Order name: Cardiac monitoring; Complete Time: 23:25 [facility] 11/23 21:43 Order name: EKG - Nurse/Tech; Complete Time: 23:25 [facility] 11/23 21:43 Order name: IV Saline Lock; Complete Time: 23:25 [facility] 11/23 21:43 Order name: Labs collected and sent; Complete Time: 23:25 [facility] 11/23 21:43 Order name: O2 Per Protocol; Complete Time: 23:25 [facility] 11/23 21:43 Order name: O2 Sat Monitoring; Complete Time: 23:25 [facility] 11/23 21:43 Order name: Urine Dipstick-Ancillary (obtain specimen); Complete Time: 23:28 [facility] Administered Medications: 11/23 22:25 Drug: NS 0.9% 1000 ml Route: IV; Rate: 1000 ml; Site: right antecubital; bb 23:00 Follow up: IV Status: Completed infusion; IV Intake: 1000ml 22:25 Drug: Pepcid (famotidine) 20 mg Route: IVP; Site: right antecubital; bb 23:30 Follow up: Response: No adverse reaction bb Disposition: 11/24/20 03:21 Discharged to Home. Impression: Gastroenteritis, Dehydration, Generalized Weakness. - Condition is Stable. - Discharge Instructions: Viral Gastroenteritis, Adult, [id number], Weakness, [id number], Dehydration, Adult, [id number]. - Prescriptions for Zofran ODT 4 mg Oral tablet,disintegrating - place 1 tablet by TRANSLINGUAL route every 8 hours As needed; 6 tablet. Bentyl 20 mg Oral Tablet - take 1 tablet by ORAL route every 6 hours As needed; 20 tablet. Pepcid 20 mg Oral Tablet - take 1 tablet by ORAL route every 12 hours for 5 days; 10 tablet. - Medication Reconciliation Form, Thank You Letter, Antibiotic Education, Prescription Opioid Use form. - Follow up: Private Physician; When: 1 - 2 days; Reason: Worsening of condition, Recheck today's complaints, Continuance of care, Re-evaluation by your physician. Follow up: Michael Kang MD; When: 1 - 2 days; Reason: Worsening of condition, Recheck today's complaints. Signatures: Dispatcher [employer] EDJacquelin Gomez RN RN bb Lewis, Lynsay, RN RN 1 Nemesio Lara MD MD mh7 Corrections: (The following items were deleted from the chart) 11/24 03:41 03:21 11/24/2020 03:21 Discharged to Home. Impression: Gastroenteritis; Dehydration; bb Generalized Weakness. Condition is Stable. Forms are Medication Reconciliation Form, Thank You Letter, Antibiotic Education, Prescription Opioid Use. Follow up: Private Physician; When: 1 - 2 days; Reason: Worsening of condition, Recheck today's complaints, Continuance of care, Re-evaluation by your physician. Follow up: Michael Kang; When: 1 - 2 days; Reason: Worsening of condition, Recheck today's complaints. mh7
--- NOTE | 2020-11-24 03:22 | ER ---
Nurse's Notes [facility] Name: David Lopez Age: 65 yrs Sex: Male : 1955 Arrival Date: 11/23/2020 Time: 17:20 Bed 27 Private MD: Diagnosis: Gastroenteritis;Dehydration;Generalized Weakness Presentation: 11/23 18:02 Chief complaint: Patient states: Weakness, dehydration, diarrhea for 2 days. Finished ll1 antibiotic for UTI last week. states he has slowly been getting worse and more weak recently. Confusion for 2 days, but didn't want us to know ( told me). Coronavirus screen: Client denies travel out of the [place] in the last 14 days. At this time, the client does not indicate any symptoms associated with coronavirus-19. Ebola Screen: Patient denies travel to an Ebola-affected area in the 21 days before illness onset. Initial Sepsis Screen: Does the patient meet any 2 criteria? HR > 90 bpm. No. Patient's initial sepsis screen is negative. Does the patient have a suspected source of infection? Yes: Acute abdominal pain. Risk Assessment: Do you want to hurt yourself or someone else? Patient reports no desire to harm self or others. Onset of symptoms was November 22, 2020. 18:02 Method Of Arrival: Wheelchair ll1 18:02 Acuity: LEANNA 3 ll1 Triage Assessment: 18:08 General: Appears ill, Behavior is calm, cooperative, appropriate for age. Pain: ll1 Complains of pain in abdomen Quality of pain is described as aching, crampy. Neuro: Level of Consciousness is awake, alert, obeys commands, Oriented to person, place, time, situation, Full function Weakness Gait is unsteady, Speech is normal, Facial symmetry appears normal, Reports weakness. Cardiovascular: No deficits noted. Respiratory: No deficits noted. GI: Abdomen is flat, Bowel sounds present X 4 quads. Abd is soft and non tender X 4 quads. Reports lower abdominal pain, upper abdominal pain, diarrhea, nausea. Musculoskeletal: Circulation, motion, and sensation intact. Capillary refill < 3 seconds, Range of motion: intact in all extremities, Reports pain all over. Historical: - Allergies: 18:07 No Known Allergies; ll1 - PMHx: 18:07 CVA; Diabetes - NIDDM; Hypertension; ll1 - PSHx: 18:07 back sx x 3, femur x 3, bilat hips; L kidney CA; ll1 - Immunization history:: Client reports receiving the 2nd dose of the Covid vaccine, Flu vaccine is up to date. - Social history:: Smoking status: Patient denies any tobacco usage or history of. Screenin:40 Abuse screen: Denies threats or abuse. Nutritional screening: No deficits noted. bb Tuberculosis screening: No symptoms or risk factors identified. Fall Risk None identified. Assessment: 21:40 General: Appears in no apparent distress. Neuro: Level of Consciousness is awake, bb alert, obeys commands, Oriented to person, place, situation. Cardiovascular: Capillary refill < 3 seconds Patient's skin is warm and dry. Respiratory: Respiratory effort is even, unlabored, Respiratory pattern is regular. GI: No signs and/or symptoms were reported involving the gastrointestinal system. Derm: Skin is pink, warm \T\ dry. Musculoskeletal: Circulation, motion, and sensation intact. Reports weakness in generalized area. 23:00 Reassessment: Patient is alert, oriented x 3, equal unlabored respirations, skin bb warm/dry/pink. pt awaiting diagnostic results. 11/24 00:00 Reassessment: Patient is alert, oriented x 3, equal unlabored respirations, skin bb warm/dry/pink. pt resting quietly, IV site intact, no erythema or edema noted. 01:18 Reassessment: Patient is alert, oriented x 3, equal unlabored respirations, skin bb warm/dry/pink. pt resting quietly, family at bedside. 03:40 Reassessment: Patient is alert, oriented x 3, equal unlabored respirations, skin bb warm/dry/pink. pt states he is feeling better, pt and family verbalized understanding of and agree on plan of care discharge instructions given pt assisted to wheelchair by [employer] air traffic systems technician and accompanied to exit by spouse. Vital Signs: 11/23 18:02 BP 108 / 75; Pulse 91; Resp 16; Temp 99.3; Pulse Ox 96% ; Weight 65.77 kg; Height 5 ft. ll1 2 in. (157.48 cm); Pain 8/10; 21:55 BP 115 / 71 LA Supine (auto/reg); Pulse 73; Resp 18; Pulse Ox 96% on R/A; Pain 8/10; jp3 23:00 BP 134 / 61; Pulse 69; Resp 11; Pulse Ox 97% ; Pain 6/10; jp3 11/24 00:00 BP 133 / 60; Pulse 72; Resp 16 S; Pulse Ox 97% on R/A; bb 01:00 BP 124 / 68; Pulse 73; Resp 16 S; Pulse Ox 97% on R/A; bb 03:11 BP 133 / 69; Pulse 72; Resp 16; Pulse Ox 98% on R/A; tt3 03:39 BP 133 / 67; Pulse 78; Resp 20 S; Temp 98.3(O); Pulse Ox 98% ; bb 11/23 18:02 Body Mass Index 26.52 (65.77 kg, 157.48 cm) ll1 ED Course: 11/23 17:20 Patient arrived in ED. ds1 18:05 Triage completed. ll1 18:07 Arm band placed on. ll1 21:23 Nemesio Lara MD is Attending Physician. 7 21:45 Initial lab(s) drawn, by ia, sent to lab. Inserted saline lock: 20 gauge in right 3 antecubital area, using aseptic technique. Blood collected. Patient maintains SpO2 saturation greater than 95% on room air. 22:01 Bed in low position. Call light in reach. Side rails up X2. Warm blanket given. Verbal jp3 reassurance given. Pulse ox on. NIBP on. 22:27 XRAY Chest (1 view) In Process Unspecified. EDMS 22:40 EKG done, by ED staff, reviewed by Nemesio Lara MD. 3 23:25 Urine collected: clean catch specimen, clear, aj colored, Amount Voided: 300mL. jp3 11/24 00:24 CT Head Brain wo Cont In Process Unspecified. EDMS 00:24 CT Abd/Pelvis - IV Contrast Only In Process Unspecified. EDMS 03:20 Michael Kang MD is Referral Physician. mh7 03:39 IV discontinued, intact, bleeding controlled, No redness/swelling at site. Pressure bb dressing applied. 03:41 No provider procedures requiring assistance completed. bb Administered Medications: 11/23 22:25 Drug: NS 0.9% 1000 ml Route: IV; Rate: 1000 ml; Site: right antecubital; bb 23:00 Follow up: IV Status: Completed infusion; IV Intake: 1000ml bb 22:25 Drug: Pepcid (famotidine) 20 mg Route: IVP; Site: right antecubital; bb 23:30 Follow up: Response: No adverse reaction bb Intake: 23:00 IV: 1000ml; Total: 1000ml. bb Outcome: 11/24 03:21 Discharge ordered by . dixie 03:41 Discharged to home via wheelchair, with family. bb 03:41 Condition: stable 03:41 Discharge instructions given to patient, family, Instructed on discharge instructions, follow up and referral plans. medication usage, Demonstrated understanding of instructions, follow-up care, medications, Prescriptions given X 3. 03:41 Patient left the ED. bb Signatures: Dispatcher [employer] EDAZ Joy Beaver ds1 Jacquelin Desir RN RN bb Andrews Garcia jp3 Laura Lozoya RN RN ll1 Nemesio Lara MD MD 7 Edgar Cabrales tt3 Corrections: (The following items were deleted from the chart) 11/23 18:09 18:02 Chief complaint: Patient states: Weakness, dehydration, diarrhea for 2 days. ll1 Finished antibiotic for UTI last week. states he has slowly been getting worse and more weak recently. ll1
[2020-11-24 04:04] VITALS: O2SAT 98
[2020-11-24 04:06] VITALS: BP 133/67; TEMP 98.3
--- NOTE | 2020-11-24 08:15 | EKG ---
Test Date: 2020-11-23 Test Time: 22:40:22 Account Resolution Analyst: VANI MEASUREMENT RESULTS: Intervals: Rate: 72 MN: 166 QRSD: 84 QT: 406 QTc: 444 Clio: P: 34 MN: 166 QRS: 80 T: 8 INTERPRETIVE STATEMENTS: Normal sinus rhythm ST abnormality, possible digitalis effect Abnormal ECG Compared to ECG 11/14/2020 11:34:21 ST (T wave) deviation now present T-wave abnormality no longer present Electronically Signed On 11-24-20 08:15:11 CDT by Fransisco Edouard
--- NOTE | 2020-11-24 10:57 | RAD REPORT ---
EXAM DESCRIPTION: Itzel Single View11/23/2020 10:27 pm CLINICAL HISTORY: Abdominal pain COMPARISON: November 14, 2020 FINDINGS: The lungs appear clear of acute infiltrate. The heart is normal size IMPRESSION: No acute abnormalities displayed
--- NOTE | 2020-11-24 12:20 | RAD REPORT ---
EXAM DESCRIPTION: CT - Head Brain Wo Cont - 11/24/2020 6:15 am CLINICAL HISTORY: The patient is 65 years old and is Male; CONFUSED TECHNIQUE: Axial computed tomography images of the head/brain without intravenous contrast. Sagitt al and coronal reformatted images were created and reviewed. This CT exam was performed using one o r more of the following dose reduction techniques: automated exposure control, adjustment of the mA and/or kV according to patient size, and/or use of iterative reconstruction technique. COMPARISON: CT head 11/14/2020. FINDINGS: Brain: Unremarkable. No hemorrhage. No significant white matter disease. No edema. Ventricles: Unremarkable. No ventriculomegaly. Bones/joints: Unremarkable. No acute fracture. Soft tissues: Unremarkable. Sinuses: Unremarkable as visualized. Mastoid air cells: Unremarkable as visualized. No mastoid effusion. IMPRESSION: No acute intracranial abnormality. Electronically signed by: David Crowley MD 11/24/2020 12:48 AM CDT Due to temporary technical issues with the PACS/Fluency reporting system, reports are being signed by the in house radiologists without review as a courtesy to insure prompt reporting. The interpreting radiologist is fully responsible for the content of the report
--- NOTE | 2020-11-24 12:35 | RAD REPORT ---
EXAM DESCRIPTION: CT - Abdomen Pelvis W Contrast - 11/24/2020 6:16 am CLINICAL HISTORY: The patient is 65 years old and is Male; diarrhea;Nausea / vomiting TECHNIQUE: Axial computed tomography images of the abdomen and pelvis with intravenous contrast. S agittal and coronal reformatted images were created and reviewed. This CT exam was performed using one or more of the following dose reduction techniques: automated exposure control, adjustment of t he mA and/or kV according to patient size, and/or use of iterative reconstruction technique. COMPARISON: CT abdomen and pelvis with contrast 06/21/2019. FINDINGS: Lung bases: Bibasilar atelectasis. ABDOMEN: Liver: Unremarkable. No mass. Gallbladder and bile ducts: Unremarkable. No calcified stones. No ductal dilation. Pancreas: Unremarkable. No mass. No ductal dilation. Spleen: Unremarkable. No splenomegaly. Adrenals: Stable 1.2 cm indeterminate left adrenal nodule. ACR White Paper guidelines (Crys et al. JACR 2017; 14(8):5595-2426) suggest no follow-up is necessary. Kidneys and ureters: The left kidney is absent. No hydronephrosis. Stomach and bowel: Unremarkable. No obstruction. No mucosal thickening. PELVIS: Appendix: No findings to suggest acute appendicitis. Bladder: Unremarkable. No mass. Reproductive: Unremarkable as visualized. ABDOMEN and PELVIS: Intraperitoneal space: Unremarkable. No free air. No significant fluid collection. Bones/joints: Minimal anterolisthesis of L5 on S1. 5 mm of retrolisthesis of L3 on L4. Multilevel disc space narrowing with degenerative changes throughout the lower thoracic and t he lumbar spine. Bilateral hip arthroplasty. No acute fracture. No dislocation. Soft tissues: Unremarkable. Vasculature: Scattered atherosclerotic vascular calcifications. No abdominal aortic aneurysm. Lymph nodes: Unremarkable. No enlarged lymph nodes. IMPRESSION: No acute findings in the abdomen or pelvis. Electronically signed by: David Crowley MD 11/24/2020 12:56 AM CDT Due to temporary technical issues with the PACS/Fluency reporting system, reports are being signed by the in house radiologists without review as a courtesy to insure prompt reporting. The interpreting radiologist is fully responsible for the content of the report
== END 2020-11-24 03:41 | disposition home or self-care (01) ==
LOC: ER 17:18
DX: E86.0 Dehydration (principal); K52.9 Noninfective gastroenteritis and colitis, unspecified; I10 Essential (primary) hypertension; E11.9 Type 2 diabetes mellitus without complications; Z85.528 Personal history of other malignant neoplasm of kidney
CPT/HCPCS: 93005; 85025; 80048; 36415; 83735; 85610; 80076; 81003; 84484; 83690; 83880; 70450; 74177; 71045; Q9967; J7030; 96361; 96374; 99285

== ENCOUNTER 2021-04-16 18:48 | Inpatient (IN) | payer OTHER ==
--- OUTSIDE RECORDS SUMMARY | 2021-04-16 18:51 | XMS REPORT | Continuity of Care Document ---
:1955 Author Organization [facility] t Address [address] [place] [address] Care Team Providers Name Role Phone Tiffany Loera Primary Care Physician Ashvin IGNACIO Attending Clinician Wen IGNACIO, Sharon Attending Clinician LISA Attending Clinician Unavailable Clyde Pacheco MD Attending Clinician Jalen IGNACIO, Andrew Attending Clinician Payers Payer Name Policy Type Policy Number Effective Expiration Source Date Date [facility] - [id number] 2017 [facility] rsity of MANAGED 00:00:00 [place] [facility] MEDICAREUNITED Branch HEALTHCARE MEDICARE [id number] 18-PresentMedicare Adv PPO Problems Condition Condition Condition Status Onset Resolution Last Treating Co mments Source Name Details Category Date Date Treatment Clinician Date Urinary Urinary Disease Active Univers tract tract 6-11 ity of infection infection 00:00: Juan Antonio s due to due to 00 Medical ESBL ESBL Branch Klebsiella Klebsiella Cervical Cervical Disease Active Metho di disc disc 12-08 st disease disease 00:00: Hospita 00 l Lumbar Lumbar Disease Active Methodi disc disc 12-08 st disease disease 00:00: Hospita 00 l Fever, Fever, Disease Active Univers unknown unknown 2-19 ity of origin origin 00:00: [place] [facility] Bradycardi Bradycardi Disease Active M ethodi a a 12-08 00:00: Hospita 00 l Acidosis Acidosis Disease Active Metho di 12-08 00:00: Hospita 00 l 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 00:00: Ho spita sm sm 00 l Parkinson' Parkinson' Disease Active U nivers s disease s disease 6-02 ity of 00:00: [place] [facility] Hypotensio Hypotensio Disease Active U nivers n n 5-30 ity of 00:: [place] [facility] Right Right Disease Active Univers wrist wrist 4-08 ity of injury injury 00:00: [place] [facility] DM DM Disease Active Univers (diabetes (diabetes 1-25 ity of mellitus) mellitus) 00:00: [facility] CHAPO on CHAPO on Disease Active Univers CPAP CPAP 1-25 ity of 00:00: [place] [facility] Chest pain Chest pain Disease Active U nivers 1-23 ity of 00:00: [place] [facility] SOB SOB Disease Active Univers (shortness (shortness 8-28 it y of of breath) of breath) 00:[place] [facility] Dyspnea Dyspnea Disease Active Overview: Univ ers and and 8 Formattin ity of respirator respirator 00:00: g of this [place] y y note Medical abnormalit abnormalit might be Branch y y different from the original. ICD10 Diagnosis Term Acid Crane Operator Utility Surgical Surgical Disease Active 2008-08 Unive rs aftercare, aftercare, it y of musculoske musculoske 00:[place] let[place] letal 00 Medical system system Branch GERD GERD Disease Active 2008-08 Univers (gastroeso (gastroeso it y of phageal phageal 00:00: [place] reflux reflux 00 Medical disease) disease) Branch Other Other Disease Active Univers voice and voice and 12-21 ity of resonance resonance 00:00[place] disorders disorders 00 Medi maria esther Branch Enlarged Enlarged Disease Active Overview: Un bib prostate prostate 12-07 Formattin ity of without without 00:00: g of this [place] lower lower 00 note Medical urinary urinary might be Branch tract tract different symptoms symptoms from the (luts) (luts) original. ICD10 Diagnosis Term Acid Crane Operator Utility Fasciitis Fasciitis Disease Active Overview: Univers 11-22 Formattin ity of 00:00: g of this [place] 00 note Medical might be Branch different from the original. ICD10 Diagnosis Term Acid Crane Operator Utility Arthropath Arthropath Disease Active Overview : Univers y y 11-22 Formattin ity of associated associated 00:00: g of this [place] with with 00 note Medical another another might be Branch systemic systemic different disease disease from the original. ICD10 Diagnosis Term Acid Crane Operator Utility Degenerati Degenerati Disease Active Overview : Univers on of on of Formattin ity of interverte interverte g of this [place] bral disc, bral disc, note Me dical site site might be Branch unspecifie unspecifie different d d from the original. 2 to trauma Malignant Malignant Disease Active Overview: Univers neoplasm neoplasm Formattin ity of of kidney of kidney g of this [place] excluding excluding note Medi maria esther renal renal might be Branch pelvis pelvis different from the original. left nephrecto my in [id number] Diagnosis Term Acid Crane Operator Utility Essential Essential Disease Active Overview: Univers hypertensi hypertensi Formattin ity of on on g of this [place] note Medical might be Branch different from the original. ICD10 Diagnosis Term Acid Crane Operator Utility Backache Backache Disease Active Overview: Un bib Formattin ity of g of this [place] note Medical might be Branch different from the original. back surgeries in , [id number] Diagnosis Term Acid Crane Operator Utility Hip joint Hip joint Disease Active Overview: Univers replacemen replacemen Formattin ity of t by other t by other g of this [place] means means note Medical might be Branch different from the original. B/L Asbestosis Asbestosis Disease Active Overview : Univers Formattin ity of g of this [place] note Medical might be Branch different from the original. ICD10 Diagnosis Term Acid Crane Operator Utility Gout Gout Disease Active Overview: Univer s Formattin ity of g of this [place] note Medical might be Branch different from the original. ICD10 Diagnosis Term Acid Crane Operator Utility HLD HLD Disease Active Overview: Univer s (hyperlipi (hyperlipi Formattin ity of demia) demia) g of this [place] note Medical might be Branch different from the original. ICD10 Diagnosis Term Acid Crane Operator Utility Allergies, Adverse Reactions, Alerts Allergy Allergy Status Severity Reaction(s) Onset Inactive Treating Comm ents Source Name Type Date Date Clinician Luma Peters Active Other - See Unable t o Univers a-Levodo ty to comments 03-25 walk. ity of pa adverse 00:00: [place] reaction 00 Medical s Branch No Known DA Active U 2011-08 [facility] 0-03 Clear Allergie 00:00: [place] s [address] [place] [address] Social History Social Habit Start Date Stop Date Quantity Comments Source History of Cigarette Smoker Universi ty of tobacco use [facility] Exposure to Not sure University of SARS-CoV-2 [facility] (event) Branch Tobacco use and 2019-08-22 2019-08-22 Never used [facility] exposure 00:00:00 [facility]:00:00 Hospital Alcohol intake 2019-08-22 2019-08-22 Current [facility] 00:00:00 00:00:00 non-drinker of Hospital alcohol (finding) Alcohol Comment 2008-12-04 2008-12-04 once per month Unive rsity of 00:00:00 00:00:00 [facility] Tobacco Comment 2008-11-22 2008-11-22 states smoked Univer sity of 00:00:00 00:00:00 occasionly for [facility] about 3 years Branch Sex Assigned At [birth year] [facility] 00:00:[facility]:00 [facility] Smoking Status Start Date Stop Date Source Former smoker 2021-02-20 00:00:00 2021-02-20 00:00:00 Universi ty of [facility] smoker [facility] Medications Ordered Filled Start Stop Current Ordering Indication Dosage Frequency Signature Comments Components Source Medication Medication Date Date Medication? Clinician (SIG) Name Name NaCl 0.9% 2020- No 1000mL at 999 Uni vers (NS) bolus 04-01 08-31 mL/hr, ity of infusion 05:30: 05:30 1,000 mL, Dante as 1,000 mL 00 :00 IV Medical Infusion, Branch ONCE, 1 dose, 04/01/21 at 0030, STAT NaCl 0.9% 2020- No 500mL at 999 Univ ers (NS) bolus 04-01 08-31 mL/hr, 500 it y of infusion 02:15: 02:55 mL, IV [place] 500 mL 00 :00 Piggyback, Medical ONCE, 1 Branch dose, 03/31/21 at 2115, STAT amLODIPine 2020- Yes [id number] 10mg Take 1 Univers 10 mg 7-29 10-28 tablet by ity of tablet 00:00: 04:59 mouth [place] 00 :00 daily for Medical 90 days. Branch gabapentin Yes 600mg Take 600 Un bib 300 mg 7-28 mg by ity of capsule 23:25: mouth 3 [place] 24 (three) Medical times Branch daily. venlafaxine Yes 112.5mg Take 112.5 Univers XR 37.5 mg 7-28 mg by ity of 24 hr 23:25: mouth [place] capsule 24 daily with Medica l breakfast. Branch baclofen 5 Yes 10mg Take 10 mg U nivers mg tablet 7-28 by mouth 2 ity of 23:25: (two) [place] 24 times Medical daily as Branch needed (back pain). insulin Yes 20U inject 20 Unive rs detemir 7-28 Units ity of (LEVEMIR 23:25: under the [place] U-100 24 skin 2 Medical INSULIN SC) (two) Branch times daily before breakfast and dinner. atorvastati Yes 80mg Take 80 mg Univers n 80 mg 7-28 by mouth ity of tablet 23:25: at [place] 24 bedtime. Medical Branch metFORMIN Yes 500mg Take 500 Uni vers 500 mg 7-28 mg by ity of tablet 23:25: mouth 2 [place] 24 (two) Medical times Branch daily with meals. clopidogreL Yes 75mg Take 75 mg Univers (PLAVIX) 75 7-28 by mouth ity of mg tablet 23:25: daily. [place] [facility] sennosides Yes [id number] 8.6mg Take 1 Univers 8.6 mg 7-28 tablet by ity of tablet 00:00: mouth 2 [place] 00 (two) Medical times Branch daily. polyethylen Yes [id number] 17g Take 1 Univers e glycol 7-28 Packet by ity of 3350 17 00:00: mouth 2 [place] gram powder 00 (two) Medical times Branch daily. pantoprazol Yes [id number] 40mg Take 1 Univers e 40 mg EC 7-28 tablet by ity of tablet 00:00: mouth 00 daily. Medical Branch bisacodyL Yes [id number] 10mg Insert 1 Univers 10 mg 7-28 Suppositor ity of suppository 00:00: y into [place] 00 rectum at Medical bedtime. Branch clonazePAM Yes [id number] .5mg Take 1 Un bib 0.5 mg 6-18 tablet by ity of tablet 00:00: mouth 2 [place] (two) Medical times [place] daily as needed (anxiety). Humulin R Humulin R 2019-0 Yes [place] [address] 8-07 [place] PRN for BG [facility] - 00:00: >200 1 hr Memoria 00 after l meals Outpati ent Clinics baclofen 2020-0 Yes [id number] 10mg Q.5D Take 1 Meth ivette (LIORESAL) 3-11 tablet (10 st 10 MG 00:00: mg total) Hospita tablet 00 by mouth 2 l (two) times a day. insulin 2020-0 Yes Q.5D Inject Methodi lispro 1-[address] (HumaLOG) 15:04: skin 2 Hospit a 100 unit/mL 33 (two) l injection times a day before meals. (PER SLIDING SCALE) gabapentin 2020-0 Yes 600mg Q.[id number] Take 600 Methodi (NEURONTIN) 1-21 [id number] mg by s t 600 mg 15:04: 3D mouth 3 Hospita tablet 33 (three) l times a day. tamsulosin 2020-0 Yes .4mg QD Take 0.4 Met hodi (FLOMAX) 1-[address] 0.4 mg 15:04: mouth Hospita capsule,ext 33 every l ended morning. release 24hr metFORMIN 2020-0 Yes 500mg Q.[id number] Take 500 Methodi (GLUCOPHAGE 1-21 [id number] mg by s t ) 500 mg 15:04: 3D mouth 3 Hospit a tablet 33 (three) l times a day. cyanocobala 2020-0 Yes 1000ug QD Take 1,000 Methodi min 1000 1-[address] MCG tablet 15:04: mouth Hospit a 33 every l morning. clopidogrel 2020-0 Yes 75mg QD Take 75 mg Methodi (PLAVIX) 75 1-[address] mg tablet 15:04: daily. Hospit a 33 l gemfibrozil 2020-0 Yes 600mg Q.5D Take 600 M ethodi (LOPID) 600 1-[address] MG tablet 15:04: mouth 2 Hospi ta 33 (two) l times a day before meals. atorvastati 2020-0 Yes 80mg QD Take 80 mg Methodi n (LIPITOR) 1-[address] 80 MG 15:04: daily. Hospita tablet 33 l aspirin 2020-0 Yes 81mg QD Take 81 mg Meth ivette (ECOTRIN) 1-[address] 81 MG 15:04: daily. Hospita enteric 33 l coated tablet docusate 2020-0 Yes Take by Method i sodium 1-[address] (STOOL 15:04: Hospita SOFTENER 33 l ORAL) buprenorphi 2020-0 Yes 8mg Q.5D 8 mg 2 Meth ivette ne HCL -06 (two) st (SUBUTEX) 8 00:00: times a Hos vikram mg tablet, 00 day. l sublingual Pen Grayson Pen Grayson 2018-08 Yes Bryant [address] 11 [place] needle [facility] - 00[facility]00: Memoria 00 l [facility] ent Clinics Lancets Lancets 2018-08 Yes [place] [address] 11 [place] [facility] - 00:00: Memoria 00 l [facility] Clinics desipramine Yes 10mg QD Take 10 mg Methodi (NOPRAMIN) 8-[address] 10 MG 00:00: nightly. Hospita tablet 00 l sotalol Yes 80mg QD Take 80 mg Meth ivette (BETAPACE) 7-[address] 80 MG 00:00: daily. Hospita tablet 00 l LEVEMIR Yes Methodi FLEXTOUCH 7-31 st U-100 00:00: Hospita INSULN 100 00 l unit/mL (3 mL) insulin pen EMBEDA 50-2 Yes Method i mg 7-24 st capsule,ora 00:00: Hospit a l 00 l only,ext.re l [place] venlafaxine Yes 37.5mg QD Take 37.5 Methodi XR 7-[address] (EFFEXOR-XR 00:00: mouth Hospi ta ) 37.5 MG 00 daily. l 24 hr capsule TRUEPLUS Yes Methodi PEN NEEDLE 6-27 st 32 gauge x 00:00: Hospita " 00 l needle One Touch One Touch Yes Bryant [address] Ultra Test Ultra Test 5-02 [place] test blood [facility] - Strips Strips 00:00: glucose Memori a 00 l Outpati ent Clinics sertraline Yes 1{tbl} QD Take 1 Met hodi (ZOLOFT) 3-[address] 100 MG 00:00: mouth Hospita tablet 00 daily. l Blood Blood 2017-08 Yes Bryant as [facility] Glucose Glucose 2-21 [place] directed Luke s - Test Strip Test Strip 00:00: (DISPENSE Memoria 00 BLOOD TEST l STRIPS OF Outpati RECORD) ent Clinics [id number] Yes Bryant as C [facility] [place] directed [facility] Aripiprazol Aripiprazol Yes Bryant 1 [...] food [facility]ukes - or milk Memoria l [facility]ics Sotalol HCl Sotalol HCl Yes Bryant [address] Loera [facility] Aspir-Low Aspir-Low Yes Bryant [address] Loera [facility] MetFORMIN MetFORMIN Yes Bryant [address] HCl ER HCl ER [place] with [facility]ukes - evening Memoria meal l [facility] Clinics OneTouch OneTouch Yes Bryant USE [address] [facility] Ultra Ultra [place] STRIP TO Lukes - TEST BLOOD Memoria GLUCOSE l TWICE [facility] DAILY ent Clinics Venlafaxine Venlafaxine Yes Bryant [address] HCl ER HCl ER [place] with food [facility] Gabapentin Gabapentin Yes Bryant as C [facility] [place] directed [facility] Plavix Plavix Yes Bryant TAKE [address] [facility] Loear TABLET BY Lukes - MOUTH Memoria DAILY l [facility] ent Clinics MetFORMIN MetFORMIN Yes Bryant TAKE [address] HCl ER HCl ER [place] TABLET BY [facility]ukes - MOUTH Memoria TWICE l DAILY [facility] Clinics Indocin Indocin Yes Bryant [address] [place] with food [facility]ukes - or milk Memoria l [facility] Clinics Desipramine Desipramine Yes Bryant [address] HCl HCl Loera [facility] D3 Adult D3 Adult Yes Bryant [address] [facility] ent Clinics Immunizations Ordered Filled Immunization Date Status Comments [facility] e Immunization Name Name Pneumococcal 2011-08-31 Completed [place] o f Polysaccharide, 00:00:00 [facility] [place] [facility] ical PPSV23 (PNEUMOVAX) [place] Vital Signs Vital Name Observation Time Observation Value Comments Source Systolic blood 2021-04-01 05:00:00 127 mm[Hg] Univer sity of pressure [facility] Diastolic blood 2021-04-01 05:00:00 60 mm[Hg] [facility] Heart rate 2021-04-01 05:00:00 62 /min [facility] Respiratory rate 2021-04-01 05:00:00 17 /min [facility] Oxygen saturation in 2021-04-01 05:00:00 98 /min [facility] blood by [facility] Pulse oximetry Branch Body temperature 2021-04-01 04:00:00 36.72 Mitzi [facility] Body weight 2021-04-01 00:54:00 63.504 kg [facility] BMI 2021-04-01 00:54:00 23.30 kg/m2 [facility] Procedures Procedure Date / Time Performing Clinician Source Performed BLOOD CULTURE SCREEN 2021-04-01 02:34:00 Laz Lock [facility] CT HEAD WO CONTRAST 2021-04-01 02:07:16 Laz Lock [facility] URINALYSIS 2021-04-01 01:55:00 Laz Lock [facility] COVID-19 (ID NOW RAPID 2021-04-01 01:45:00 Laz Lock [facility] TESTING) [facility] CBC WITH DIFF 2021-04-01 01:41:00 Laz Lock [facility] PROTHROMBIN TIME / INR 2021-04-01 01:41:00 Laz Lock [facility] ACTIVATED PARTIAL 2021-04-01 01:41:00 Laz Lock [facility] THRMPLAS RADHA [facility] BLOOD CULTURE SCREEN 2021-04-01 01:38:00 Laz Lock [facility] LIPASE 2021-04-01 01:38:00 Laz Lock [facility] TROPONIN I 2021-04-01 01:38:00 Laz Lock [facility] COMP. METABOLIC PANEL 2021-04-01 01:38:00 Laz Lock [facility] ([id number]) [facility] N-TERMINAL PRO-BNP 2021-04-01 01:38:00 Laz Lock [facility] AC PANEL 21 + LACTIC 2021-04-01 01:37:00 Laz Lock [facility] ACID [facility] NOTICE OF PRIVACY 2021-04-01 00:48:38 Doctor Unassigned, No Univ [facility] PRACTICES Name [facility] CONSENT/REFUSAL FOR 2021-04-01 00:46:04 [facility]ATMENT Name [facility] CT CHEST WO CONTRAST 2020-11-07 18:49:00 Arvind [facility] Plan of Care Planned Activity Planned Date Details Comments Source Future Scheduled Test DIABETES: RETINAL EYE [facility] EXAM [code = DIABETES: RETINAL EYE EXAM] Future Scheduled Test DIABETIC FOOT EXAM [facility] [code = DIABETIC FOOT EXAM] Future Scheduled Test URINE MICROALBUMIN [facility] [code = URINE MICROALBUMIN] Future Scheduled Test COVID-19 VACCINE (1) [facility] [code = COVID-19 VACCINE (1)] Future Scheduled Test Hepatitis C screening [facility] (procedure) [code = 531870609] Future Scheduled Test COLONOSCOPY SCREENING [facility] [code = COLONOSCOPY SCREENING] Future Scheduled Test SHINGLES VACCINES (#1) [facility] [code = SHINGLES VACCINES (#1)] Future Scheduled Test INFLUENZA VACCINE [code [facility] = INFLUENZA VACCINE] Encounters Start End Encounter Admission Attending Care Care Encounter Source Date/Time Date/Time Type Type Clinicians Facility Department ID 2021-04-14 2021-04-14 Outpatient [facility] [id number] [facility] 2021-04-14 2021-04-14 Outpatient [facility] [id number] [facility] 2021-04-11 2021-04-11 Outpatient [facility] [id number] [facility] 2021-03-31 2021-04-01 Emergency [place], [facility] [id number] Univers 19:55:00 01:41:00 [facility] [id number] i ty [facility] [id number] [facility] [id number] [facility] maria esther 084 Branch 2021-03-21 2021-03-21 [facility] [id number] 2021-03-20 2021-03-20 Outpatient [facility] [id number] [facility] 2021-03-07 2021-03-07 Outpatient [facility] [id number] [facility] 2021-03-07 2021-03-07 Outpatient [facility] [id number] [facility] 2021-02-27 2021-02-27 Outpatient [facility] [id number] [facility] 2021-02-27 2021-02-27 Outpatient [facility] [id number] [facility] 2021-02-24 2021-02-24 Outpatient [facility] [id number] [facility] 2021-02-19 2021-02-19 Outpatient [facility] [id number] [facility] 2021-02-17 2021-02-17 Outpatient [facility] [id number] [facility] 2021-01-01 2021-01-01 Outpatient [facility] [id number] [facility] 2020-12-23 2020-12-23 Outpatient [facility] [id number] [facility] 2020-12-02 2020-12-02 Outpatient [facility] [id number] [facility] 2020-11-07 2020-11-[address]1 [id number] Methodi 13:30:00 23:59:00 Encounter Arvind [id number] [place] 3.430.2.7 Hospit a .3.084359 l .8 2020-11-07 2020-11-07 Outpatient WEN, [facility] [id number] [place] 00:00:00 00:00:[address] 2020-11-07 2020-11-07 Travel 1.2.840.1 [id number] Methodi 00:00:00 00:00:[id number] 3.430.2.7 0.2.7.3.698 Ho spita .[id number] 084.8 l .8 2020-10-18 2020-10-18 Travel 1.2.840.1 [id number] [facility]i 00:00:00 00:00:[address] 3.430.2.7 0.2.7.3.698 Ho spita .3.151321 084.8 l .8 2020-10-15 2020-10-15 Outpatient [facility] [id number] [facility] 2020-10-15 2020-10-15 Transcribe Wen, .2.840.1 [id number] [facility] 00:00:00 00:00:00 Orders Arvind [id number] [facility] 3.430.2.7 Hospit a .3.518365 l .8 2020-09-25 2020-09-25 Outpatient [facility] [id number] [facility] 2020-09-23 2020-09-23 Outpatient [facility] [id number] [facility] 2020-08-23 2020-08-23 Outpatient [facility] [id number] [facility] 2020-08-20 2020-08-20 Outpatient [facility] [id number] [facility] 2020-08-14 2020-08-14 Outpatient [facility] [id number] [facility] 2020-08-12 2020-08-12 Outpatient [facility] [id number] [facility] 2020-08-09 2020-08-09 Outpatient [facility] [id number] [facility] 2020-03-22 2020-03-22 [facility] [id number] 08:45:00 08:45:00 [place] [employer] s - [facility] Medicine l Medicine Outpati ent Clinics 2020-03-08 2020-03-08 [facility] [id number] 10:26:00 10:26:00 t [place] [employer] s - [facility] Medicine l Medicine Outpati ent Clinics 2020-03-05 2020-03-05 [facility] [id number] 16:14:00 16:14:00 t [employer] s - Drive [facility] Medicine l Medicine Outpati ent Clinics 2020-03-01 2020-03-01 [facility] [id number] 10:00:00 10:00:00 t [place] [employer] s - [facility] Medicine l Medicine Outpati ent Clinics 2020-03-01 2020-03-01 [facility] [id number] 10:00:00 10:00:00 t [place] [employer] s - [facility] Medicine l Medicine Outpati ent Clinics 2020-01-10 2020-01-10 [facility] [id number] 13:52:00 13:52:00 t Specialty/U Jessica kes - Specialty rology Memori a /Urology Clinic l Clinic Outpati ent Clinics 2019-12-28 2019-12-28 [facility] [id number] 13:15:00 13:15:00 t Specialty/U Jessica kes - Specialty rology Memori a /Urology Clinic l Clinic Outpati ent Clinics 2019-11-16 2019-11-16 [facility] [id number] 15:00:00 15:00:00 t Specialty/U Jessica kes - Specialty rology Memori a /Urology Clinic l Clinic Outpati ent Clinics 2019-10-20 2019-10-20 [facility] [id number] 10:09:00 10:09:00 t Specialty/U Jessica kes - Specialty rology Memori a /Urology Clinic l Clinic Outpati ent Clinics 2019-10-18 2019-10-18 [facility] [id number] 08:30:00 08:30:00 t Specialty/U Jessica kes - Specialty rology Memori a /Urology [facility] l Clinic Outpati ent Clinics 2019-10-17 2019-10-17 [facility] [id number] [address] 15:00:00 15:00:00 [place] [employer] [address] - [address] [facility] l Medicine Outpati ent Clinics 2019-10-13 2019-10-13 [facility] [id number] 15:13:00 15:13:00 [place] [employer] - [facility] l Medicine Outpati ent Clinics 2019-09-15 2019-09-15 [facility] [id number] 09:00:00 09:00:00 [place] [employer] - [address] [facility] l Medicine Outpati ent Clinics 2019-08-10 2019-08-10 [facility] [id number] 11:32:00 11:32:00 [place] [employer] [address] - [address] [facility] l Medicine Outpati ent Clinics 2019-07-17 2019-07-17 [facility] [id number] 16:43:00 16:43:00 [place] [employer] [place] - Drive [facility] Medicine l Medicine Outpati ent Clinics 2019-06-21 2019-06-21 [facility] [id number] 11:12:00 11:12:00 [place] [address] [place] [address] - Drive [facility] Medicine Outpati ent Clinics 2019-06-19 2019-06-19 [facility] [id number] 14:00:00 14:00:00 [place] [address] [place] [address] - Drive [facility] Medicine Outpati ent Clinics 2019-06-12 2019-06-12 [facility] [id number] 15:55:00 15:55:[address] [place] [address] [place] [address] - Drive [facility] Medicine Outpati ent Clinics 2019-06-01 2019-06-01 [facility] [id number] 13:44:00 13:44:00 [address] [place] [address] [place] [address] - Drive [facility] Medicine Outpati ent Clinics 2019-05-24 2019-05-24 [facility] [id number] 13:44:00 13:44:00 [address] [place] [address] [place] [address] - Drive [facility] Medicine Outpati ent Clinics 2019-05-18 2019-05-18 [facility] [id number] 10:50:00 10:50:00 [address] [place] [address] [place] [address] - Drive [facility] Medicine Outpati ent Clinics 2019-05-05 2019-05-05 Outpatient [facility] [id number] [address] [place] [address] 00:00:00 00:00:00 DEB [address] 2019-05-01 2019-05-01 [facility] [id number] 15:00:00 15:00:00 [address] [place] [address] [place] [address] - Drive [facility] Medicine Outpati ent Clinics 2019-04-14 2019-04-14 [facility] [id number] 16:09:00 16:09:00 [address] [place] [address] [place] [address] - Drive [facility] Medicine Outpati ent Clinics 2019-03-08 2019-03-08 Telephone [facility] [id number] 00:00:00 00:00:00 [facility] 350.1.13.10 [facility] 4.2.7.2.686 [id number] 2019-03-07 2019-03-07 Case [id number] 00:00:00 00:00:00 Management [place] [id number] [facility] 4.2.7.2.686 [id number] 2019-03-01 2019-03-01 [facility] [id number] 13:52:00 13:52:00 [place] [employer] [facility] Medicine l Medicine Outpati ent Clinics 2019-02-23 2019-02-[id number] 16:56:13 23:59:00 Encounter [facility] 350.1.13.10 [facility] 4.2.7.2.686 [id number] 2019-02-23 2019-02-23 [id number] [id number] 15:34:50 18:38:56 Visit [facility] 350.1.13.10 [facility] 4.2.7.2.686 [id number] 2018-12-01 2018-12-01 [facility] [id number] 10:52:00 10:52:00 [place] [employer] [facility] l Medicine Outpati ent Clinics 2018-11-29 2018-11-29 [facility] [id number] 14:45:00 14:45:00 [place] [employer] [address] - Drive [facility] Medicine l Medicine Outpati ent Clinics 2018-09-28 2018-09-28 [facility] [id number] 10:43:00 10:43:00 t [employer] [address] - Road [facility] Medicine l Medicine Outpati ent Clinics 2018-08-16 2018-08-16 [facility] [id number] 12:06:00 12:06:00 t [employer] - Road [facility] Medicine l Medicine Outpati ent Clinics 2018-07-25 2018-07-25 [facility] [id number] 10:56:00 10:56:00 t [facility] Medicine Outpati ent Clinics 2018-07-22 2018-07-22 [facility] [id number] 01:11:00 01:11:00 t [facility] Medicine Outpati ent Clinics 2018-07-20 2018-07-20 [facility] [id number] 13:00:00 13:00:00 [facility] Medicine Outpati ent Clinics 2018-07-19 2018-07-19 [facility] [id number] 14:38:00 14:38:00 [facility] Medicine Outpati ent Clinics 2018-07-15 2018-07-15 [facility] [id number] 16:01:00 16:01:00 [facility] Medicine Outpati ent Clinics 2018-07-14 2018-07-14 [facility] [id number] 15:35:00 15:35:00 [facility] Medicine Outpati ent Clinics 2018-04-21 2018-04-21 [facility] [id number] 09:04:00 09:04:00 [facility] Medicine Outpati ent Clinics 2018-04-20 2018-04-20 [facility] [id number] 22:17:00 22:17:00 [facility] Medicine Outpati ent Clinics 2018-04-20 2018-04-20 [facility] [id number] 14:30:00 14:30:00 [facility] Medicine Outpati ent Clinics Results Test Description Test Time Test Comments Results Result Comments Source URINALYSIS 2021-04-01 03:04:09 Test Item Value Reference Range Interpretation Comme nts APPEARANCE (test code = Clear Clear 2636085050) COLOR (test code = 2196760363) Yellow Yellow PH (test code = 4381247210) 4.8-8.0 SP GRAVITY (test code = 1.003-1.030 1879494159) GLU U QUAL (test code = Normal Normal 6079658100) BLOOD (test code = 9803477158) Negative Negative KETONES (test code = 9140883199) Negative Negative PROTEIN (test code = 2887-8) Negative Negative UROBILIN (test code = 2.0 mg/dL Normal A 2623650636) BILIRUBIN (test code = Negative Negative 0737236334) NITRITE (test code = 3995700371) Negative Negative LEUK MIGDALIA (test code = Negative Negative 7164741992) RBC/HPF (test code = 7833174405) See_Comment H [Automated message] The system which ge nerated this result transmit elaine reference range: 0 - 3 HP F. The reference range was not used to interpret th is result as normal/abnormal . WBC/HPF (test code = 6260178671) See_Comment [Automated message] The system which ge nerated this result transmit elaine reference range: 0 - 5 HP F. The reference range was not used to interpret th is result as normal/abnormal . BACTERIA (test code = Few Negative A 1390092479) MUCOUS (test code = 3675936016) Slight Negative LPF A SQ EPITH (test code = HPF 5852935360) HYAL CAST (test code = See_Comment H [Aut omated message] The 1286258419) system which ge nerated this result transmit elaine reference range: <=2 LPF. The reference range was not used to interpret th is result as normal/abnormal . GRAN CASTS (test code = See_Comment H [Au tomated message] The 1715845507) system which Sendoid nerated this result transmit elaine reference range: <=1 LPF. The reference range was not used to interpret th is result as normal/abnormal . Lab Interpretation (test code = Abnormal 88137-6) [facility]KELLEPRISMA [facility] H[facility]PITALSTU [id number] 02:31:36 Test Item Value Reference Range Interpretation Comments TROPONIN I (test code = 0.003 ng/mL See_Comment [Au tomated 2340452223) message] The sy stem which generated this result transmitted reference range : <=0.034. The reference range was not used to interpret this result as normal/abnormal . ANU (test code = ANU) Lab Interpretation Normal (test code = 39517-6) [facility] SpringsN-TERMINAL [id number] 02:28:37 Test Item Value Reference Range Interpretation Comments NT-proBNP (test code = 231 pg/mL See_Comment H [Aut omated message] 1549535416) The system [employer] generated this result transmit elaine reference range : <=125. The refe rence range was not u sed to interpret th is result as normal/abnormal . ANU (test code = ANU) Lab Interpretation (test Abnormal code = 12788-1) [facility] SpringsACTIVATED PARTIAL THRMPLAS [id number] 02:26:55 Test Item Value Reference Range Interpretation Comments APTT Patient (test code = See_Comment [ Automated message] 3173-2) The system [employer] generated this result transmitted ref erence range: 23 - 38 Seconds. The re ference range was not u sed to interpret this result as normal/abnor mal. ANU (test code = ANU) Lab Interpretation (test Normal code = 66762-0) [facility] SpringsPROTHROMBIN TIME / [id number] 02:24:54 Test Item Value Reference Range Interpretation Comments PROTIME PATIENT (test See_Comment [Auto mated message] code = 5964-2) The system The [facility] [place] generated this result transmitted ref erence range: 12.0 - 1 4.7 Seconds. The re ference range was not u sed to interpret this result as normal/abnor mal. INR (test code = 6301-6) Lab Interpretation (test Normal code = 88967-2) [facility] SpringsCOMP. METABOLIC PANEL (03850)2021-04-01 02:20:56 Test Item Value Reference Range Interpretation Comments NA (test code = 4468510224) 139 mmol/L 135-145 K (test code = 6214701319) 3.6 mmol/L 3.5-5.0 CL (test code = 9920564562) 98 mmol/L 98-108 CO2 TOTAL (test code = 4418972789) 29 mmol/L 23-31 AGAP (test code = 5759812836) 2-16 BUN (test code = 9174918768) 17 mg/dL 7-23 GLUCOSE (test code = 5729903682) 241 mg/dL 70-110 H CREATININE (test code = 0.98 mg/dL 0.60-1.25 7956965746) TOTAL BILI (test code = 0.5 mg/dL 0.1-1.1 1368401364) CALCIUM (test code = 8011689991) 9.5 mg/dL 8.6-10.6 T PROTEIN (test code = 1636535357) 8.9 g/dL 6.3-8.2 H ALBUMIN (test code = 6936377950) 4.6 g/dL 3.5-5.0 ALK PHOS (test code = 4309244189) 124 U/L 34-122 H ALTv (test code = 1742-6) 26 U/L 5-50 AST(SGOT) (test code = 8877987199) 39 U/L 13-40 eGFR (test code = 4552675593) mL/min/1.73m2 ANU (test code = ANU) Lab Interpretation (test code = Abnormal 46405-7) [facility] SpringsLIPASE2021-08-31 02:20:14 Test Item Value Reference Range Interpretation Comments LIPASE (test code = 5052800282) 74 U/L 0-220 Lab Interpretation (test code = Normal 99153-8) [facility] SpringsCOVID-19 (ID NOW RAPID TESTING)2021-04-01 02:20:14 Test Item Value Reference Range Interpretation Comments SARS-CoV-2 Rapid ID NOW (test Not Detected Not Detected code = 02199-2) ANU (test code = ANU) Lab Interpretation (test code = Normal 40216-6) [facility] SpringsCT HEAD WO [id number] 02:13:29No acute findings. HISTORY:Mental status change, unknown cause TECHNIQUE: Noncontrast head CT was performed. COMPARISON:01/10/2021. FINDINGS: The ventricles and sulci are appropriate for patient's age. There is no midline shift. The basal cisterns are preserved. No largevascular territory infarction,intracranial hemorrhage or mass effect isseen. The extracranial tissues demonstrate no acute findings. [facility], Radiant Results Inft User - 03/31/2021 9:14 PM CDT HISTORY:Mental status change, unknown cause TECHNIQUE: Noncontrast head CT was performed.COMPARISON:01/10/2021.FINDINGS:The ventricles and sulci are appropriate for patient's age.There is no midline shift. The basal cisterns are preserved. No largevascular territory infarction, intracranial hemorrhage or mass effect isseen.The extracranial tissues demonstrate no acute findings.IMPRESSIONNo acute findings.[facility] WITH [id number] 02:05:52 Test Item Value Reference Range Interpretation Comments WBC (test code = See_Comment [Automated 6690-2) message] The sy stem which generated this result transmitted reference range : 4.20 - 10.70 10*3/?L. The reference range was not used to interpret this result as normal/abnormal . RBC (test code = See_Comment L [Automated 789-8) message] The sy stem which generated this result transmitted reference range : 4.26 - 5.52 10*6/?L. The reference range was not used to interpret this result as normal/abnormal . HGB (test code = 10.3 g/dL 12.2-16.4 L 718-7) HCT (test code = 31.3 % 38.4-49.3 L 4544-3) MCV (test code = 93.2 fL 81.7-95.6 787-2) MCH (test code = 30.7 pg 26.1-32.7 785-6) MCHC (test code = 32.9 g/dL 31.2-35.0 786-4) RDW-SD (test code = 44.7 fL 38.5-51.6 70905-5) RDW-CV (test code = 13.2 % 12.1-15.4 788-0) PLT (test code = See_Comment [Automated 777-3) message] The sy stem which generated this result transmitted reference range : 150 - 328 10*3/ ?L. The reference r dustin was not used to interpret this result as normal/abnormal . MPV (test code = 10.3 fL 9.8-13.0 06561-9) NRBC/100 WBC (test See_Comment [Automat ed code = 8458264119) message] The system which generated this result transmitted reference range : 0.0 - 10.0 /100 WBCs. The refer ence range was not u sed to interpret th is result as normal/abnormal . NRBC x10^3 (test code <0.01 See_Comment [Auto mated = 0666873426) message] The s ystem which generated this result transmitted reference range : 10*3/?L. The reference range was not used to interpret this result as normal/abnormal . GRAN MAT (NEUT) % 54.9 % (test code = 770-8) IMM GRAN % (test code 0.20 % = 7247767384) LYMPH % (test code = 34.3 % 736-9) MONO % (test code = 7.0 % 5905-5) EOS % (test code = 3.0 % 713-8) BASO % (test code = 0.6 % 706-2) GRAN MAT x10^3(ANC) 4.59 10*3/uL 1.99-6.95 (test code = 1891123792) IMM GRAN x10^3 (test <0.03 0.00-0.06 code = 7816045353) LYMPH x10^3 (test code 2.87 10*3/uL 1.09-3.23 = 731-0) MONO x10^3 (test code 0.59 10*3/uL 0.36-1.02 = 742-7) EOS x10^3 (test code = 0.25 10*3/uL 0.06-0.53 711-2) BASO x10^3 (test code 0.05 10*3/uL 0.01-0.09 = 704-7) Lab Interpretation Abnormal (test code = 67422-8) [facility] SpringsAC PANEL 21 + LACTIC [id number] 01:48:54 Test Item Value Reference Range Interpretation Comments PH (test code = 7.32-7.42 7452250620) PCO2 TAJ (test code = See_Comment H [Auto mated 9111987099) message] The sy stem which generated this result transmitted reference range : 41 - 51 mmHg. The reference range was not used to interpret this result as normal/abnormal . PO2 TAJ (test code = See_Comment [Autom ated 8329777913) message] The sy stem which generated this result transmitted reference range : 25 - 40 mmHg. The reference range was not used to interpret this result as normal/abnormal . HCO3 TAJ (test code = See_Comment [Auto mated 5026185948) message] The sy stem which generated this result transmitted reference range : 24 - 28 mEq/L. The reference range was not used to interpret this result as normal/abnormal . AC VBE(BEAKER) (test mEq/L code = 9153973009) THB TAJ (test code = 11.2 g/dL 13.5-18.0 L 8254426709) %O2HB TAJ (test code = 51.0 % 52.0-63.0 L 9149288339) %COHB TAJ (test code = 1.1 % 0.0-1.5 0410820573) %METHB TAJ (test code = 0.3 % 0.4-1.5 L 6781995121) VOL%O2 TAJ (test code = 8.0 % 6.0-12.0 8754717989) NA (test code = 138 mmol/L 135-145 0112954856) K+ (test code = 3.7 mmol/L 3.5-5.0 9852537003) AC CA IONZ (test code = 4.60 mg/dL 4.50-5.30 1706632695) GLUCOSE (test code = 236 mg/dL 70-110 H 0961725594) LACTIC ACID (test code 2.61 mmol/L 0.50-2.20 H = 2584215960) Lab Interpretation Abnormal (test code = 03035-0) [facility] SpringsCT Chest Wo [id number] 18:55:19 EXAMINATION:CT CHEST WO CONTRAST CLINICAL HISTORY:R06.02 Shortness of breath, SOB TECHNIQUE:Multipleaxial images of the chest were obtained without intravenous contrast. The lack of intravenous contrast reduces the sensitivity of detecting solid organ disease and evaluating vasculature. Sagittal and c oronal computerized reformatted images were also obtained.CT imaging was performed with iterative reconstruction techniques and/or automated exposure control to reduce radiation dose. COMPARISON:12/11/2016 FINDINGS:1.Minor juxtapleural reticular scarring in the posterior lung bases and juxtapleural le ft anterior upper lobe is stable. Otherwise the lungs are clear.2.There is no pleural or pericardialeffusion.3.No significant thoracic lymphadenopathy is seen.4.The heart size is normal.5.There is a stable benign 14 mm left adrenal nodule. There is no acute upper abdominal finding.6.No acute skeletal abnormalities seen. IMPRESSION:No acute cardiopulmonary disease. [id number] Hm Interface, Radiology Results Incoming - 11/07/2020 1:58 PM CDT EXAMINATION:CT CHEST WO CONTRASTCLINICAL HISTORY:R06.02 Shortness of breath, SOBTECHNIQUE:Multiple axial images of the chest were obtained without intravenous contrast. The lack of intravenous contrast reduces the sensitivity of detecting solid organ disease and evaluating vasculature. Sagittal andcoronal computerized reformatted images were also obtained.CT imaging was performed with iterative reconstruction techniques and/or automated exposure control to reduce radiation dose. COMPARISON:12/11/2016FINDINGS:1.Minor juxtapleural reticular scarring in the posterior lung bases and juxtapleural left anterior upper lobe is stable. Otherwise the lungs are clear.2.There is no pleural or pericardial effusion.3.No significant thoracic lymphadenopathy is seen.4.The heart size is normal.5.There is a stable benign 14 mm left adrenal nodule. There is no acute upper abdominal finding.6.No acute skeletal abnormalities seen.IMPRESSION:No acute cardiopulmonary disease.[id number] 2019-10-02 16:50:00 Test Item Value Reference Range Interpretation Comments GLUCOSE BEDSIDE TESTING (test code = 98 mg/dL 70-110 N GLUBED) - XR FLUOROSCOPY 0-60 [id number] 16:05:00 Name: ANABELA LOPEZ [facility] : 1955 Age/S: 64 / M [address] Unit #: [id number] Loc: [place] [address] Phys: Trever Calvillo MD Acct: [id number] Dis Date: Status: [facility] PHONE #: [phone] Exam Date: 10/02/2019 1500 FAX #: Reason: LEFT FEMUR JUN PLATE REMOVAL EXAMS: CPT: [id number] XR FLUOROSCOPY 0-60 MIN 05041 Fluoro Time: 17 SEC DAP (Gy m2): [...] MD PAGE 1 Signed Report Name: ANABELA LOPEZ [facility] : 1955 Age/S: 64 / M [address] Unit #: [id number] Loc: [place] [address] Phys: Trever Calvillo MD Acct: [id number] Dis Date: Status: [facility] PHONE #: [phone] Exam Date: 10/02/2019 1500 FAX #: Reason: LEFT FEMUR JUN PLATE REMOVAL EXAMS: CPT: [id number] XR FLUOROSCOPY 0-60 MIN 81997 Fluoro Time: 17 SEC DAP (Gy m2): Air Kerma (mGy): <Continued> Technologist: Raine Vera, RT(R) Trnscb Date/Time: 10/02/2019 (160) [email or web address] Orig Print D/T: S: 10/02/2019 (1608) PAGE 2 Signed Report UA RFLX MICR CULT IF [id number] 08:47:00 Test Item Value Reference Range Interpretation [...] PRE OP EVALUA RFLX MICR CULT IF [id number] 08:46:00 Test Item Value Reference Range Interpretation [...] Dysuria/FrequencySpec Comments: INDICATION: PRE OP EVALBASIC METABOLIC [id number] 07:29:00 Test Item Value Reference Range Interpretation [...] CA) 9.1 MG/DL 8.5-10.1 N VITAMIN D [id number] 07:29:00 Test Item Value Reference Range Interpretation Comments VITAMIN D 14.1 ng/mL 30.0-100.0 A Vitamin D defic iency has 25-HYDROXY (test been define d by the code = VITD25) [place] of edicine and an Endocrine So ciety practice guidel ine as alevel of serum 25-OH vitamin D less than 20 ng/mL (1,2).The Endocrine Society went on to further define vitamin Dinsufficiency as a level between 21 and 29 ng/mL (2).1. IOM (Ins titute of Medicine). 2010 . Dietary reference int akes for calcium and D. [place]: The [employer] .2. Sailaja MF, [place], Dianna moody MOSER, et al. Evaluatio n, treatment, and prevention of vitamin D deficiency: an Endocrine Society clinica l practice guideline. CONRAD EM. 2010; 96(0):1911-30.P erformed At: [facility] [id number] [place], [place] [id number] Trever Ac MD Ph:[phone] BASIC METABOLIC [id number] 07:08:00 Test Item Value Reference Range Interpretation [...] CA) 9.1 MG/DL 8.5-10.1 N VITAMIN D [id number] 07:08:00 Test Item Value Reference Range Interpretation Comments VITAMIN D 25-HYDROXY (test code = 14.1 VITD25) CBC W/AUTO [id number] 14:54:00 Test Item Value Reference Range Interpretation [...] code = NO DIFF/SCN CRITERIA MDIFF) SED [id number] 14:54:00 Test Item Value Reference Range Interpretation Comments SED RATE (test code = SEDW) 80 mm/hr 0-20 H - XR CHEST 2 [id number] 14:38:00 Name: [facility] [place] : 1955 Age/S: 64 / M [address] Unit #: [id number] Loc: [place] [address] Phys: Trever Calvillo MD Acct: [id number] Dis Date: Status: PRE SDC PHONE #: [phone] Exam Date: 09/19/2019 1400 FAX #: Reason: PREOP EXAMS: CPT: [id number] XR CHEST 2 V 82516 Fluoro Time: DAP (Gy m2): Air Kerma [...] MD PAGE 1 Signed Report Name: ANABELA LOPEZ [facility] [place] : 1955 Age/S: 64 / M [address] Unit #: [id number] Loc: [place] [address] Phys: Trever Calvillo MD Acct: [id number] Dis Date: Status: PRE SDC PHONE #: [phone] Exam Date: 09/19/2019 1400 FAX #: Reason: PREOP EXAMS: CPT: [id number] XR CHEST 2 V 27295 Fluoro Time: DAP (Gy m2): Air Kerma (mGy): <Continued> Technologist: Raine Vera, RT(R) Trnscb Date/Time: 09/19/2019 (1468) [email or web address] Orig Print D/T: S: 09/19/2019 (1432) PAGE 2 Signed ReportC REACTIVE [id number] 13:53:00 Test Item Value Reference Range Interpretation Comments C REACTIVE PROTEIN (test code = 0.629 MG/DL 0.000-0.3 H CRP) BASIC METABOLIC [id number] 13:52:00 Test Item Value Reference Range Interpretation [...] CA) 9.1 MG/DL 8.5-10.1 N VITAMIN D [id number] 13:52:00 Test Item Value Reference Range Interpretation Comments VITAMIN D 25-HYDROXY (test code = VITD25) PROTHROMBIN [id number] 13:42:00 Test Item Value Reference Range Interpretation Comments PT PATIENT (test code = PTP) 13.2 SECONDS 9.3-12.9 H INTERNATIONAL NORMAL RATIO 1.16 INR Unit 0.8-1.2 N (test code = INR) THROMBOPLASTIN TIME [id number] 13:42:00 Test Item Value Reference Range Interpretation Comments THROMBOPLASTIN TIME PARTIAL 34.7 SECONDS 26-35 N (test code = PTT) CBC W/AUTO [id number] 13:33:00 Test Item Value Reference Range Interpretation [...] code = NO DIFF/SCN CRITERIA MDIFF) SED [id number] 13:33:00 Test Item Value Reference Range Interpretation Comments SED RATE (test code = SEDW) mm/hr 0-20 - CT LOWER EXTRM W/O C [id number] 11:45:00 Name: ANABELA LOPEZ [facility]: 1955 Age/S: 64 / M [address] Unit #: [id number] Loc: [place] [address] Phys: Trever Cavlillo MD Acct: [id number] Dis Date: Status: PRE CLI PHONE #: [phone] Exam Date: 09/19/2019 1100 FAX #: Reason: PAIN LFT KNEE EXAMS: CPT: [id number] [place] LOWER EXTRM W/[place] [address] EXAM: - CTLOWER EXTRM W/O C LT [...] PAGE 1 Signed Report (CONTINUED) Name: ANABELA LOPEZ [facility] : 1955 Age/S: 64 / M [address] Unit #: [id number] Loc: [place] [address] Phys: Trever Calvillo MD Acct: [id number] Dis Date: Status: PRE CLI PHONE #: [phone] Exam Date: 09/19/2019 1100 FAX #: Reason: PAIN LFT KNEE EXAMS: CPT: [id number] [place] LOWER EXTRM W/[place] [address] <Continued> at 1145 Reported and signed by: Oswald Devi MD CC: Trever Calvillo MD; Kiran Loera MD Technologist:Desire Hernandez RT(R)(MR) CTDI: DLP: Trnscb Date/Time: 09/19/2019 (1140) [email or web address] Orig Print D/T: S: 09/19/2019 (6826) PAGE 2 Signed Report
[2021-04-16 19:24] LABS: Absolute Lymphocytes (CBC) 1.6 K/uL (0.7-4.9); Basophils % 0.4 % (0-1.3); Hematocrit 32.7 % (39.6-49.0); Lymphocytes % 23.7 % (15.3-44.8); MPV 8.4 fL (7.6-11.3); RBC Red Blood Cell Count 3.53 M/uL (4.33-5.43)
[2021-04-16 19:27] LABS: Protime INR 0.97
--- NOTE | 2021-04-16 19:33 | EDPHYS ---
Physician Documentation [facility] Name: David Lopez Age: 65 yrs Sex: Male : 1955 Arrival Date: 04/16/2021 Time: 18:49 Bed 5 Private MD: ED Physician Forest Guerra HPI: 04/16 19:26 This 65 yrs old Male presents to ER via EMS with complaints of Chest Pain. emerald 19:26 The patient or guardian reports chest pain that is located primarily in the substernal emerald area. Onset: today. The pain radiates to the left arm. Associated signs and symptoms: The patient has no apparent associated signs or symptoms. The chest pain is described as a heaviness. Duration: The patient or guardian reports a single episode, that is still ongoing, but improving. Modifying factors: The symptoms are alleviated by nothing. the symptoms are aggravated by nothing. Severity of pain: At its worst the pain was mild in the emergency department the pain is unchanged. The patient has experienced similar episodes in the past, several times. Historical: - Allergies: 18:51 No Known Allergies; hb - Home Meds: 18:51 alprazolam 1 mg Oral TbDL 1 tab 3 times per day [Active]; Amitiza 8 mcg Oral cap 1 cap hb 2 times per day [Active]; aspirin 81 mg Oral chew 1 tab once daily [Active]; atorvastatin 80 mg Oral tab 1 tab once daily [Active]; baclofen 10 mg Oral tab 1 tab twice daily [Active]; buprenorphine HCl buccal 2 times per day [Active]; clopidogrel 75 mg Oral tab 1 tab once daily [Active]; desipramine 10 mg Oral tab 1 tab 3 times per day [Active]; fluoxetine 40 mg Oral cap 1 cap once daily [Active]; gabapentin 600 mg Oral tab 1 tab 3 times per day [Active]; gemfibrozil 600 mg Oral tab daily [Active]; Humulin R [Active]; indomethacin 25 mg Oral cap 1 cap 2 times per day [Active]; Levemir 100 unit/mL subcutaneous soln 20 units twice a day [Active]; lubiprostone Oral 2 times per day [Active]; Lyrica 50 mg Oral daily [Active]; metformin 500 mg Oral Tb24 1 tab 2 times per day [Active]; omeprazole 20 mg Oral cpDR 1 cap once daily [Active]; oxycodone-acetaminophen 10-650 mg Oral tab every 4 hours [Active]; Risperdal 2 mg Oral tab 1 tab once daily [Active]; simvastatin 20 mg Oral tab 1 tab once daily [Active]; sotalol 80 mg Oral tab 1 tab 2 times per day [Active]; tamsulosin 0.4 mg Oral cp24 1 cap once daily [Active]; trazodone 50 mg Oral tab nightly [Active]; venlafaxine 75 mg Oral cp24 1 cap once daily [Active]; - PMHx: 18:51 CVA; Diabetes - NIDDM; Hypertension; Parkinsons; hb - Immunization history:: Client reports receiving the 2nd dose of the Covid vaccine. - Social history:: Smoking status: Patient denies any tobacco usage or history of. - Family history:: not pertinent. ROS: 19:26 Constitutional: Negative for fever, chills, and weight loss, Eyes: Negative for injury, emerald pain, redness, and discharge, ENT: Negative for injury, pain, and discharge, Neck: Negative for injury, pain, and swelling, Respiratory: Negative for shortness of breath, cough, wheezing, and pleuritic chest pain, Abdomen/GI: Negative for abdominal pain, nausea, vomiting, diarrhea, and constipation, Back: Negative for injury and pain, : Negative for injury, bleeding, discharge, and swelling, MS/Extremity: Negative for injury and deformity, Skin: Negative for injury, rash, and discoloration, Neuro: Negative for headache, weakness, numbness, tingling, and seizure, Psych: Negative for depression, anxiety, suicide ideation, homicidal ideation, and hallucinations, Allergy/Immunology: Negative for hives, rash, and allergies, Endocrine: Negative for neck swelling, polydipsia, polyuria, polyphagia, and marked weight changes, Hematologic/Lymphatic: Negative for swollen nodes, abnormal bleeding, and unusual bruising. 19:26 Cardiovascular: Positive for chest pain, of the chest. Exam: 19:26 Constitutional: This is a well developed, well nourished patient who is awake, alert, emerald and in no acute distress. Head/Face: Normocephalic, atraumatic. Eyes: Pupils equal round and reactive to light, extra-ocular motions intact. Lids and lashes normal. Conjunctiva and sclera are non-icteric and not injected. Cornea within normal limits. Periorbital areas with no swelling, redness, or edema. ENT: Nares patent. No nasal discharge, no septal abnormalities noted. Tympanic membranes are normal and external auditory canals are clear. Oropharynx with no redness, swelling, or masses, exudates, or evidence of obstruction, uvula midline. Mucous membranes moist. Neck: Trachea midline, no thyromegaly or masses palpated, and no cervical lymphadenopathy. Supple, full range of motion without nuchal rigidity, or vertebral point tenderness. No Meningismus. Chest/axilla: Normal chest wall appearance and motion. Nontender with no deformity. No lesions are appreciated. Cardiovascular: Regular rate and rhythm with a normal S1 and S2. No gallops, murmurs, or rubs. Normal PMI, no JVD. No pulse deficits. Respiratory: Lungs have equal breath sounds bilaterally, clear to auscultation and percussion. No rales, rhonchi or wheezes noted. No increased work of breathing, no retractions or nasal flaring. Abdomen/GI: Soft, non-tender, with normal bowel sounds. No distension or tympany. No guarding or rebound. No evidence of tenderness throughout. Back: No spinal tenderness. No costovertebral tenderness. Full range of motion. Male : Normal genitalia with no discharge or lesions. Skin: Warm, dry with normal turgor. Normal color with no rashes, no lesions, and no evidence of cellulitis. MS/ Extremity: Pulses equal, no cyanosis. Neurovascular intact. Full, normal range of motion. Neuro: Awake and alert, GCS 15, oriented to person, place, time, and situation. Cranial nerves II-XII grossly intact. Motor strength 5/5 in all extremities. Sensory grossly intact. Cerebellar exam normal. Normal gait. Psych: Awake, alert, with orientation to person, place and time. Behavior, mood, and affect are within normal limits. 19:26 ECG was reviewed by the Attending Physician. Vital Signs: 18:49 BP 139 / 81; Pulse 91; Resp 17; Temp 98; Pulse Ox 98% on R/A; Weight 77.11 kg; Height 5 hb ft. 4 in. (162.56 cm); Pain 7/10; 20:00 BP 106 / 61; Pulse 89; Resp 18; Pulse Ox 97% on R/A; Pain 6/10; ms4 18:49 Body Mass Index 29.18 (77.11 kg, 162.56 cm) hb MDM: 19:12 Patient medically screened. emerald 19:30 Differential diagnosis: abnormal EKG, acute myocardial infarction, anxiety, coronary emerald artery disease congestive heart failure costochondritis, hiatal hernia, pancreatitis, pericarditis, pleurisy, pneumonia, pneumothorax, pulmonary embolus, stable angina, unstable angina. HEART Score: History: Moderately Suspicious (1), ECG: Non specific repolarization disturbance / LBTB / PM (1), Age: > 45 and < 65 years (1), Risk Factors: > or = 3 Risk factors for atherosclerotic disease (2), [Hypercholesterolemia] [Hypertension] [DM] [+ Family HX] [Obesity] Troponin: < or = 1 x Normal Limit (0). The patient was given aspirin in the Emergency Department. The patient's deep vein thrombosis risk score was calculated as follows: Total Score: 0. This patient was found to be at low risk for a deep vein thrombosis by using the Well's assessment criteria. The patient's pulmonary embolism risk score was calculated as follows: Total Score: 0-2 points. This patient was found to be at low risk for a pulmonary embolism by using the Well's assessment criteria. ROSCOE Risk Score: TOTAL SCORE = 0. Data reviewed: vital signs, nurses notes, lab test result(s), EKG, radiologic studies, CT scan, plain films. Data interpreted: playground monitor: rate is 91 beats/min, rhythm is regular, Pulse oximetry: is not applicable for this patient encounter. Test interpretation: by ED physician or midlevel provider: ECG, plain radiologic studies. 04/16 18:50 Order name: Basic Metabolic Panel; Complete Time: 05:56 ap3 04/16 18:50 Order name: CBC with Diff; Complete Time: 20:02 ap3 04/16 18:50 Order name: LFT's; Complete Time: 05:56 ap3 04/16 18:50 Order name: Magnesium; Complete Time: 05:56 ap3 04/16 18:50 Order name: NT PRO-BNP; Complete Time: 05:56 ap3 04/16 18:50 Order name: PT-INR; Complete Time: 20:02 ap3 04/16 18:50 Order name: Troponin (emerg Dept Use Only); Complete Time: 05:56 ap3 04/16 19:24 Order name: COVID-19 : Document "Date of Symptom Onset" if Symptomatic. [facility] 04/16 20:02 Order name: Lipase [facility] 04/16 20:36 Order name: SARS-COV-2 RT PCR; Complete Time: 05:56 EDMS 04/16 20:50 Order name: Lipase; Complete Time: 05:56 [facility] 04/16 22:33 Order name: Glucose, Ancillary Testing; Complete Time: 05:56 [facility] 04/16 23:11 Order name: Troponin I; Complete Time: 05:56 EDMS 04/16 18:50 Order name: XRAY Chest (1 view); Complete Time: 20:02 ap3 04/17 04:37 Order name: Basic Metabolic Panel; Complete Time: 05:56 [facility] 04/17 04:44 Order name: Troponin I; Complete Time: 05:56 [facility] 04/17 05:16 Order name: CBC with Automated Diff; Complete Time: 05:56 [facility] 04/17 07:44 Order name: Glucose, Ancillary Testing [facility] 04/17 12:28 Order name: Glucose, Ancillary Testing [facility] 04/17 17:17 Order name: Glucose, Ancillary Testing [facility] 04/17 18:45 Order name: Hemoglobin A1c [facility] 04/17 20:53 Order name: Glucose, Ancillary Testing [facility] 04/18 03:38 Order name: CBC with Automated Diff [facility] 04/18 04:05 Order name: Comprehensive Metabolic Panel [facility] 04/18 04:05 Order name: Lipid Profile [facility] 04/18 04:05 Order name: Thyroid Stimulating Hormone [facility] 04/18 08:11 Order name: Glucose, Ancillary Testing [facility] 04/18 12:48 Order name: MRI [facility] 04/18 12:55 Order name: Glucose, Ancillary Testing [facility] 04/16 18:50 Order name: EKG; Complete Time: 18:50 ap3 04/16 18:50 Order name: Cardiac monitoring; Complete Time: 18:50 ap3 04/16 18:50 Order name: EKG - Nurse/Tech; Complete Time: 18:50 ap3 04/16 18:50 Order name: IV Saline Lock; Complete Time: 19:07 ap3 04/16 18:50 Order name: Labs collected and sent; Complete Time: 19:07 ap3 04/16 18:50 Order name: O2 Per Protocol; Complete Time: 18:50 3 04/16 18:50 Order name: O2 Sat Monitoring; Complete Time: 18:50 [facility] 04/16 19:38 Order name: CONS Physician Consult EDMS EC: Rate is 90 beats/min. Rhythm is regular. QRS [place] is Normal. ID interval is normal. QRS emerald interval is normal. QT interval is normal. No Q waves. T waves are Normal in leads II, III, aVF, V3, V4, V5, V6. Clinical impression: Abnormal EKG without significant change. Interpreted by me. Reviewed by me. Administered Medications: : CANCELLED (Duplicate Order): Aspirin Chewable Tablet 162 mg PO once emerald 19:41 Drug: Pepcid (famotidine) 20 mg Route: IVP; Site: left forearm; ms4 19:41 Drug: morphine 2 mg Route: IVP; Site: left forearm; ms4 19:41 Drug: Zofran (Ondansetron) 4 mg Route: IVP; Site: left forearm; ms4 19:42 Drug: Aspirin Chewable Tablet 81 mg Route: PO; ms4 20:00 Drug: Lovenox (enoxaparin) 1 mg/kg Route: Sub-Q; Site: right upper arm; ms4 Disposition Summary: 04/16/21 19:32 Hospitalization Ordered Hospitalization Status: Observation emerald Condition: Stable emerald Problem: new emerald Symptoms: have improved emerald Bed/Room Type: Standard emerald Provider: Mike Victoria(04/17/21 06:03) emerald Location: Telemetry/MedSurg (observation)(04/18/21 12:44) ja1 Room Assignment: [facility](04/18/21 12:44) ja1 Diagnosis - Chest pain, unspecified emerald - Type 2 diabetes mellitus with hyperglycemia emerald - Angina pectoris, unspecified emerald Forms: - Medication Reconciliation Form emerald - SBAR form emerald Signatures: Dispatcher [employer] EDMS Forest Guerra MD MD cha Lasagna, Tonya RN RN tl1 Michelle Alvarez RN RN Rafa Coffman RN RN ja1 Joselyn Dupree RN RN ap3 Brittny Franco RN RN ms4 Corrections: (The following items were deleted from the chart) 19:26 19:24 Aspirin Chewable Tablet 162 mg PO once ordered. formerly [facility] 19:42 19:24 CORONAVIRUS ordered. EDMS EDMS 21:32 19:32 Telemetry/MedSurg (observation) [place] [id number] 21:32 19:32 [place] [id number] 04/17 05:57 04/16 19:32 Samantha Fish formerly [facility] 04/17 06:03 05:57 Tyrese Hill formerly [facility] 04/18 12:44 04/16 21:32 [facility] 04/18 12:44 04/16 21:32 ERHOLD- tl1 ja1
--- NOTE | 2021-04-16 19:33 | ER ---
Nurse's Notes [facility] Name: David Lopez Age: 65 yrs Sex: Male : 1955 Arrival Date: 04/16/2021 Time: 18:49 Bed 5 Private MD: Diagnosis: Chest pain, unspecified;Type 2 diabetes mellitus with hyperglycemia;Angina pectoris, unspecified Presentation: 04/16 18:49 Chief complaint: EMS states: Intermittent substernal chest pain that radiates to left hb arm since this morning. Pain is worse with deep breathing. 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 Coronavirus screen: At this time, the client does not indicate any symptoms associated with coronavirus-19. Ebola Screen: No symptoms or risks identified at this time. Initial Sepsis Screen: Does the patient meet any 2 criteria? No. Patient's initial sepsis screen is negative. Does the patient have a suspected source of infection? No. Patient's initial sepsis screen is negative. Risk Assessment: Do you want to hurt yourself or someone else? Patient reports no desire to harm self or others. Onset of symptoms was April 16, 2021. 18:49 Method Of Arrival: EMS: [facility] 18:49 Acuity: LEANNA 3 hb Triage Assessment: 18:51 General: Appears in no apparent distress. Behavior is calm, cooperative. Pain: Pain hb currently is 7 out of 10 on a pain scale. EENT: No signs and/or symptoms were reported regarding the EENT system. Neuro: Level of Consciousness is awake, alert, obeys commands, Oriented to person, place, time, situation. Cardiovascular: Reports chest pain, Patient's skin is warm and dry. Rhythm is regular. Respiratory: Respiratory effort is even, unlabored, Respiratory pattern is regular, symmetrical. GI: No signs and/or symptoms were reported involving the gastrointestinal system. : No signs and/or symptoms were reported regarding the genitourinary system. Derm: Skin is pink, warm \\T\\ dry. Musculoskeletal: No signs and/or symptoms reported regarding the musculoskeletal system. Historical: - Allergies: 18:51 No Known Allergies; hb - Home Meds: 18:51 alprazolam 1 mg Oral TbDL 1 tab 3 times per day [Active]; Amitiza 8 mcg Oral cap 1 cap hb 2 times per day [Active]; aspirin 81 mg Oral chew 1 tab once daily [Active]; atorvastatin 80 mg Oral tab 1 tab once daily [Active]; baclofen 10 mg Oral tab 1 tab twice daily [Active]; buprenorphine HCl buccal 2 times per day [Active]; clopidogrel 75 mg Oral tab 1 tab once daily [Active]; desipramine 10 mg Oral tab 1 tab 3 times per day [Active]; fluoxetine 40 mg Oral cap 1 cap once daily [Active]; gabapentin 600 mg Oral tab 1 tab 3 times per day [Active]; gemfibrozil 600 mg Oral tab daily [Active]; Humulin R [Active]; indomethacin 25 mg Oral cap 1 cap 2 times per day [Active]; Levemir 100 unit/mL subcutaneous soln 20 units twice a day [Active]; lubiprostone Oral 2 times per day [Active]; Lyrica 50 mg Oral daily [Active]; metformin 500 mg Oral Tb24 1 tab 2 times per day [Active]; omeprazole 20 mg Oral cpDR 1 cap once daily [Active]; oxycodone-acetaminophen 10-650 mg Oral tab every 4 hours [Active]; Risperdal 2 mg Oral tab 1 tab once daily [Active]; simvastatin 20 mg Oral tab 1 tab once daily [Active]; sotalol 80 mg Oral tab 1 tab 2 times per day [Active]; tamsulosin 0.4 mg Oral cp24 1 cap once daily [Active]; trazodone 50 mg Oral tab nightly [Active]; venlafaxine 75 mg Oral cp24 1 cap once daily [Active]; - PMHx: 18:51 CVA; Diabetes - NIDDM; Hypertension; Parkinsons; hb - Immunization history:: Client reports receiving the 2nd dose of the Covid vaccine. - Social history:: Smoking status: Patient denies any tobacco usage or history of. - Family history:: not pertinent. Screenin:53 Abuse screen: Denies threats or abuse. Denies injuries from another. Nutritional hb screening: No deficits noted. Tuberculosis screening: No symptoms or risk factors identified. Fall Risk None identified. Assessment: 18:52 General: see triage assessment.. hb 20:54 General: Appears in no apparent distress. Behavior is calm, cooperative, appropriate ms4 for age. Pain: Complains of pain in chest. Cardiovascular: Reports chest pain, shortness of breath. Vital Signs: 18:49 BP 139 / 81; Pulse 91; Resp 17; Temp 98; Pulse Ox 98% on R/A; Weight 77.11 kg; Height 5 hb ft. 4 in. (162.56 cm); Pain 7/10; 20:00 BP 106 / 61; Pulse 89; Resp 18; Pulse Ox 97% on R/A; Pain 6/10; ms4 18:49 Body Mass Index 29.18 (77.11 kg, 162.56 cm) hb ED Course: 18:49 Patient arrived in ED. hb 18:51 Triage completed. hb 18:51 Arm band placed on. EKG completed in triage. Results shown to MD. hb 18:53 Patient has correct armband on for positive identification. Bed in low position. Call hb light in reach. 18:53 monitoring engineer on. Pulse ox on. NIBP on. hb 18:54 Joselyn Dupree, BERNY is Primary Nurse. ap3 19:08 Inserted saline lock: 20 gauge in left forearm, using aseptic technique. Blood ap3 collected. 19:12 Forest Guerra MD is Attending Physician. emerald 19:27 XRAY Chest (1 view) In Process Unspecified. EDMS 19:32 Samantha Fish MD is Hospitalizing Provider. emerald 19:42 COVID-19 : Document "Date of Symptom Onset" if Symptomatic. Sent. ms4 20:52 Lipase Sent. ms4 04/17 05:57 Tyrese Hill MD is Hospitalizing Provider. emerald 06:03 Mike Victoria MD is Hospitalizing Provider. emerald 07:03 Primary Nurse role handed off by Joselyn Dupree RN [facility] 07:03 Oswald Lundberg RN is Primary Nurse. [facility] Administered Medications: 04/16 19:26 CANCELLED (Duplicate Order): Aspirin Chewable Tablet 162 mg PO once emerald 19:41 Drug: Pepcid (famotidine) 20 mg Route: IVP; Site: left forearm; ms4 19:41 Drug: morphine 2 mg Route: IVP; Site: left forearm; ms4 19:41 Drug: Zofran (Ondansetron) 4 mg Route: IVP; Site: left forearm; ms4 19:42 Drug: Aspirin Chewable Tablet 81 mg Route: PO; ms4 20:00 Drug: Lovenox (enoxaparin) 1 mg/kg Route: Sub-Q; Site: right upper arm; ms4 Outcome: 19:32 Decision to Hospitalize by Provider. emerald 21:51 Admitted to ER Hold. Please see [facility] for further documentation. fern 21:51 Condition: stable 21:51 Instructed on the need for admit. 04/18 15:15 Patient left the ED. ll1 Signatures: Dispatcher [employer] EDForest Goldman MD MD cha Baxter, Heather, RN RN Janette Santana RN RN ea Prokisch, Amanda, RN RN ap3 Laura Lozoya RN RN ll1 Brittny Franco RN RN ms4 Oswald Lundberg RN RN ch5
[2021-04-16 19:40] LABS: ALT/SGPT 39 U/L (12-78); AST/SGOT 43 U/L (15-37); Albumin 3.4 g/dL (3.4-5.0); Alkaline Phosphatase 161 U/L (45-117); BUN Blood Urea Nitrogen 11 mg/dL (7-18); Bicarbonate 26 mmol/L (21-32); Bilirubin Direct 0.1 mg/dL (0-0.2); Bilirubin Total 0.5 mg/dL (0.2-1.0); Glucose Level 350 mg/dL (74-106); Magnesium 1.9 mg/dL (1.8-2.4); NT PRO-BNP 228 pg/mL (<125); Potassium 4.2 mmol/L (3.5-5.1); Protein, Total 8.3 g/dL (6.4-8.2); Sodium Level 138 mmol/L (136-145); Troponin (Emerg Dept Use Only) < 0.02 ng/mL (0.0-0.045)
--- NOTE | 2021-04-16 19:40 | RAD REPORT ---
EXAM DESCRIPTION: RAD - Chest Single View - 04/16/2021 7:27 pm CLINICAL HISTORY: CHEST PAIN Chest pain. COMPARISON: Chest Single View dated 11/23/2020; Abdomen 1 View (KUB) dated 11/14/2020; Chest Single Vi ew dated 11/14/2020; Chest Single View dated 08/12/2018 FINDINGS: Portable technique limits examination quality. The lungs are grossly clear. The heart is normal in size. No displaced fractures.Cervical hardware no elaine. IMPRESSION: No acute intrathoracic process suspected.
[2021-04-16] MEDS ORDERED: ASPIRIN 81 MG CHEWABLE TABLET ONE (19:52)
[2021-04-16] MEDS ORDERED: FAMOTIDINE 20 MG/2 ML VIAL IV ONE (19:53)
[2021-04-16] MEDS ORDERED: ONDANSETRON 4 MG/2 ML VIAL ONE (19:53)
[2021-04-16] MEDS ORDERED: MORPHINE 2 MG/ML SYR ONE (19:53)
[2021-04-16] MEDS ORDERED: ENOXAPARIN 80 MG/0.8 ML SQ ONE (20:21)
[2021-04-16 20:49] LABS: Lipase 96 U/L (73-393)
[2021-04-16] MEDS ORDERED: ACETAMINOPHEN 325 MG TABLET PO PRN (21:57)
[2021-04-16] MEDS ORDERED: ONDANSETRON 4 MG/2 ML VIAL IV PRN (21:57)
[2021-04-16] MEDS ORDERED: MORPHINE 2 MG/ML SYR IV PRN (21:57)
[2021-04-16] MEDS ORDERED: GLUCAGON 1 MG/VIAL IM PRN (21:57)
[2021-04-16] MEDS: FAMOTIDINE 20 MG/2 ML VIAL IV SCH (21:57)
[2021-04-16] MEDS: ENOXAPARIN 80 MG/0.8 ML SQ SCH (21:57)
[2021-04-16] MEDS: INSULIN -REGULAR HUMAN 50 UNIT/0.5 ML ML SQ SCH (21:57)
[2021-04-16] MEDS ORDERED: D50W 25 GM/50 ML SYRINGE IV PRN (21:57)
[2021-04-16] MEDS ORDERED: INSULIN -REGULAR HUMAN 50 UNIT/0.5 ML ML ONE (22:58)
[2021-04-17 04:37] LABS: Potassium 3.9 mmol/L (3.5-5.1)
[2021-04-17 05:04] LABS: Hematocrit 29.7 % (39.6-49.0); RBC Red Blood Cell Count 3.24 M/uL (4.33-5.43)
[2021-04-17 05:05] LABS: Absolute Lymphocytes (CBC) 2.8 K/uL (0.7-4.9); Basophils % 0.7 % (0-1.3); Lymphocytes % 42.6 % (15.3-44.8); MPV 8.5 fL (7.6-11.3)
[2021-04-17] MEDS: INSULIN -REGULAR HUMAN 50 UNIT/0.5 ML ML SQ SCH ×3 (07:30→21:00)
[2021-04-17] MEDS ORDERED: ENOXAPARIN 80 MG/0.8 ML SQ ONE (08:27)
[2021-04-17] MEDS ORDERED: CLOPIDOGREL 75 MG TABLET ONE (08:27)
[2021-04-17] MEDS ORDERED: FAMOTIDINE 20 MG/2 ML VIAL IV ONE (08:28)
[2021-04-17] MEDS: FAMOTIDINE 20 MG/2 ML VIAL IV SCH (09:00)
[2021-04-17] MEDS: CLOPIDOGREL 75 MG TABLET PO SCH (09:00)
[2021-04-17] MEDS: ENOXAPARIN 80 MG/0.8 ML SQ SCH (09:00)
[2021-04-17] MEDS: ASPIRIN EC 81 MG TAB PO SCH (09:00)
[2021-04-17] MEDS ORDERED: INSULIN -REGULAR HUMAN 50 UNIT/0.5 ML ML ONE ×3 (12:50→21:53)
[2021-04-17] MEDS ORDERED: D50W 25 GM/50 ML SYRINGE IV PRN ×2 (15:48→17:11)
[2021-04-17] MEDS ORDERED: GLUCAGON 1 MG/VIAL IM PRN ×2 (15:48→17:11)
[2021-04-17] MEDS: NA CHLORIDE 0.9% 1,000 ML IV SCH (16:00)
[2021-04-17] MEDS ORDERED: INSULIN -REGULAR HUMAN 50 UNIT/0.5 ML ML SQ SCH (16:30)
--- NOTE | 2021-04-17 17:23 | P.HP ---
Certification for Inpatient Patient admitted to: Inpatient With expected LOS: >2 Midnights Patient will require the following post-hospital care: Home Health Services Practitioner: I am a practitioner with admitting privileges, knowledge of patient current condition, hospital course, and medical plan of care. Services: Services provided to patient in accordance with Admission requirements found in Title 42 Section 412.3 of the Code of Federal Regulations Patient History Date of Service: 04/17/21 Primary Care Provider: Tiffany Loera Reason for admission: confusion History of Present Illness: Patient is a pleasant gentleman who comes in complaining of chest pain He has a history of dm2, htn. However his came in and states he has a history of a cva approx 4 years ago. His pcp thought he had parkinsons However work up was negative. He has not been walking for about 4 years. The patient has been confused for the past month. He has not had covid and has been vaccinated. Has been confused and has been speaking to his grandfather. The patient has also been fearing being placed in a assisted. He has been to Dr. Loera. Who was planning on a out patient work up. However the patients conditions worsened. he complaints of chest pain 7/10 dull radiating to his left arm Allergies No Known Allergies Allergy (Verified 08/12/18 00:38) Home Medications: Sotalol HCl [Betapace*] 80 mg PO DAILY 08/12/18 Atorvastatin Calcium [Lipitor] 80 mg PO DAILY #30 tablet 08/13/18 Clopidogrel Bisulfate [Plavix*] 75 mg PO DAILY #30 tablet 08/13/18 Insulin -Regular Human [Novolin -R*] See Protocol SQ ACHS #1 vial 08/13/18 Gabapentin 1 tab PO TID 11/14/20 Metformin HCl [Metformin HCl ER] 1 tab PO BID 11/14/20 Venlafaxine HCl [Venlafaxine HCl ER] 1 cap PO DAILY 11/14/20 buprenorphine HCL [Buprenorphine HCl] 8 mg SL Q8HR 11/14/20 clonazePAM [Clonazepam] 1 tab PO BID 11/14/20 Amox/Clavulanate [Augmentin 500-125 mg Tab] 500 mg PO BID #14 tab 11/15/20 Ferrous Sulfate [Iron] 325 mg PO BID #60 tablet 11/15/20 Folic Acid 1 mg PO DAILY #90 tablet 11/15/20 Pantoprazole [Protonix Tab] 40 mg PO DAILY #40 tab 11/15/20 Thiamine HCl 100 mg PO DAILY #90 tablet 11/15/20 - Past Medical/Surgical History Has patient received pneumonia vaccine in the past: Yes Diabetic: Yes -: Diabetes mellitus type 2 insulin-dependent -: GERD -: BPH -: Depression -: HTN -: Chronic Pain -: History of asbestosis exposure -: Atrial fibrillation -: left kidney cancer 18 years ago -: CVA -: femur sx X3 -: neck surg -: [place] hip replacement -: right knee replacement -: left kidney removal -: back surgery Psychosocial/ Personal History: Patient lives at home - Family History Mother -: Diabetes Brother -: Diabetes - Social History Smoking Status: Unknown if ever smoked Alcohol use: No CD- Drugs: No Caffeine use: No Review of Systems Cardiovascular: Chest Pain Neurological: Confusion Physical Examination - Vital Signs Blood Pressure: 120/63 Pulse: 73 Respirations: 14 Pulse Ox (%): 98 - Physical Exam General: Alert, In no apparent distress HEENT: Atraumatic, PERRLA, Mucous membr. moist/pink, EOMI, Sclerae nonicteric Neck: Supple, 2+ carotid pulse no bruit, No LAD, Without JVD or thyroid abnormality Respiratory: Clear to auscultation bilaterally, Normal air movement Cardiovascular: Regular rate/rhythm, Normal S1 S2 Gastrointestinal: Normal bowel sounds, No tenderness Musculoskeletal: No tenderness Integumentary: No rashes Neurological: Normal gait, Normal speech, Normal strength at 5/5 x4 extr, Normal tone, Normal affect Lymphatics: No axilla or inguinal lymphadenopathy - Studies Laboratory Data (last 24 hrs) 04/16/21 19:05: PT 11.2, INR 0.97 04/16/21 19:05: WBC 6.90, Hgb 11.0 L, Hct 32.7 L, Plt Count 127 L 04/16/21 19:05: Sodium 138, Potassium 4.2, BUN 11, Creatinine 1.10, Glucose 350 H, Magnesium 1.9, Total Bilirubin 0.5, AST 43 H, ALT 39, Alkaline Phosphatase 161 H, Lipase 96 Assessment and Plan - Problems (Diagnosis) (1) Altered mental status Onset Date: 05/30/18 Current Visit: No Status: Chronic Plan: Patient has change in mental status Will consult Dr. Sy. Order an MRI stroke protochol. hold metformin and will give iv fluids as will need contrast. Will have PT evaluate him. Will see if the patient has a Parkinsons syndrome, CVA vs small vessel disease. Will check lipid profile and a1c Qualifiers: Altered mental status type: disorientation Qualified Code(s): R41.0 - Disorientation, unspecified (2) Chest pain Current Visit: Yes Status: Acute Plan: Patient has 3 negative troponins. Will have him seen by Dr Edouard. We can consider an outpatient work up. Qualifiers: Chest pain type: other chest pain Qualified Code(s): R07.89 - Other chest pain; R07.8 - Other chest pain (3) DM2 (diabetes mellitus, type 2) Current Visit: Yes Status: Acute Plan: Will hold the metformin. Will keep him on a sliding scale. Qualifiers: Diabetes mellitus retirement insulin use: without retirement use Diabetes mellitus complication status: without complication Qualified Code(s): E11.9 - Type 2 diabetes mellitus without complications (4) HTN (hypertension) Onset Date: 08/12/18 Current Visit: No Status: Acute Plan: will contine home meds. Adjust as necessary. Qualifiers: Hypertension type: primary hypertension Qualified Code(s): I10 - Essential (primary) hypertension - Advance Directives Does patient have a Living Will: No Does patient have a Durable POA for Healthcare: No - Code Status/Comfort Care Code Status Assessed: Yes Code Status: Full Code Physician Review: Patient Assessed, Agree with Above Assessment and Plan Critical Care: No Time Spent Managing Pts Care (In Minutes): 55
[2021-04-17] MEDS ORDERED: GABAPENTIN 300 MG CAP ONE (20:42)
[2021-04-17] MEDS ORDERED: HOME MED 1 EA UNK (Gabapentin [Gabapentin] 600 MG Tablet) PO SCH (21:00)
[2021-04-17] MEDS: GABAPENTIN 300 MG CAP PO SCH (21:00)
--- NOTE | 2021-04-17 21:25 | CON ---
Date of Consultation: 04/17/2021 Reason For Consultation: Chest pain. History Of Present Illness: This is a 65-year-old male, poor historian, presented with chest pain, r etrosternal, started today, radiates to the left arm. No shortness of breath. Had 1 episode and has resolved on its own. Past Medical History: Diabetes, hypertension, CVA, Parkinson disease. Medications: Refer to reconciliation sheet for detailed list. Allergies: NO KNOWN DRUG ALLERGIES. Family History: No premature coronary artery disease or cancer. Social History: Does not drink or use any drugs. Review of Systems: All systems reviewed are negative except for what mentioned in the HPI. Physical Examination: Vital Signs: Temperature is 98.3, pulse 73, breathing at 14, blood pressure 120/60, saturating 90% o n room air. General: Pleasant middle-aged male, in no apparent distress. Head and Neck: Pupils are equal, reactive to light. Intact eye movements. Neck: No JVD. No cervical lymphadenopathy. Neck is supple. Thyroid is not enlarged. Lungs: Clear to auscultation bilaterally. No rhonchi, rales, or crackles. No accessory muscle use. Heart: Regular rate and rhythm. No extra sounds. Abdomen: Soft, nontender. Bowel sounds positive. No organomegaly. No masses or hernia. No rigidi ty or rebound. Extremities: No edema, clubbing, cyanosis. Intact pulses. Skin: No rashes. Neurologic: Alert, awake, oriented x3. No acute focal deficits appreciated. Investigations: Troponins x3 are negative. Creatinine is normal. Assessment And Recommendation: Chest pain is atypical; however, the patient has risk factors includi ng diabetes and hypertension. Recommend Lexiscan nuclear stress test. If the patient remains chest pain free, can be released and the test can be done as an outpatient along with an echocardiogram. S tart on baby aspirin and lifestyle modification. SR/MODL Voice ID: [id number] Report ID: [id number]
[2021-04-18 03:32] LABS: Absolute Lymphocytes (CBC) 2.1 K/uL (0.7-4.9); Basophils % 0.6 % (0-1.3); Hematocrit 27.9 % (39.6-49.0); Lymphocytes % 37.6 % (15.3-44.8); MPV 8.3 fL (7.6-11.3); RBC Red Blood Cell Count 3.04 M/uL (4.33-5.43)
[2021-04-18 04:05] LABS: Bilirubin Total 0.3 mg/dL (0.2-1.0); Potassium 4.3 mmol/L (3.5-5.1); Protein, Total 7.3 g/dL (6.4-8.2); Thyroid Stimulating Hormone 0.986 uIU/mL (0.360-3.740)
[2021-04-18] MEDS: INSULIN -REGULAR HUMAN 50 UNIT/0.5 ML ML SQ SCH ×4 (07:30→21:15)
--- NOTE | 2021-04-18 07:39 | ECHO ---
HEIGHT: 5 ft 4 in WEIGHT: 169 lb 0 oz DATE OF STUDY: 04/17/[address]: Forest Guerra MD 2-DIMENSIONAL: YES M.MODE: YES DOPPLER: YES COLOR FLOW: YES TDS: PORTABLE: DEFINITY: BUBBLE STUDY: DIAGNOSIS: CHEST PAIN CARDIAC HISTORY: CATHERIZATION: NO SURGERY: NO PROSTHETIC VALVE: NO PACEMAKER: NO MEASUREMENTS (cm) DIASTOLIC (NORMALS) SYSTOLIC (NORMALS) IVSd 1.0 (0.6-1.2) LA Diam 2.8 (1.9-4.0) LVEF 55-60% LVIDd 4.7 (3.5-5.7) LVIDs 3.4 (2.0-3.5) %FS 28% LVPWd 1.2 (0.6-1.2) Ao Diam 2.8 (2.0-3.7) 2 DIMENSIONAL ASSESSMENT: RIGHT ATRIUM: NORMAL LEFT ATRIUM: NORMAL RIGHT VENTRICLE: NORMAL LEFT VENTRICLE: NORMAL TRICUSPID VALVE: NORMAL MITRAL VALVE: NORMAL PULMONIC VALVE: NORMAL AORTIC VALVE: NORMAL PERICARDIAL EFFUSION: NONE AORTIC ROOT: NORMAL LEFT VENTRICULAR WALL MOTION: NORMAL DOPPLER/COLOR FLOW: SEE BELOW COMMENTS: NORMAL LEFT VENTRICULAR EJECTION FRACTION 55-60%. NORMAL WALL MOTION. MILD TRICUSPID REGURGITATION. TECHNOLOGIST: LAN JONES
[2021-04-18] MEDS ORDERED: PANTOPRAZOLE 40MG TABLET PO ONE (07:42)
[2021-04-18] MEDS ORDERED: CLOPIDOGREL 75 MG TABLET ONE (07:43)
[2021-04-18] MEDS ORDERED: FOLIC ACID 1 MG TABLET ONE (07:43)
[2021-04-18] MEDS ORDERED: ASPIRIN EC 81 MG TAB PO ONE (07:43)
[2021-04-18] MEDS ORDERED: THIAMINE HCL 100 MG TABLET ONE (07:43)
[2021-04-18] MEDS ORDERED: GABAPENTIN 300 MG CAP ONE ×2 (07:44→14:31)
[2021-04-18] MEDS: NA CHLORIDE 0.9% 1,000 ML IV SCH ×2 (07:50→17:14)
[2021-04-18] MEDS ORDERED: NA CHLORIDE 0.9% 1,000 ML ONE (08:08)
[2021-04-18] MEDS: ASPIRIN EC 81 MG TAB PO SCH (08:48)
[2021-04-18] MEDS: FOLIC ACID 1 MG TABLET PO SCH (08:48)
[2021-04-18] MEDS: PANTOPRAZOLE 40MG TABLET PO SCH (08:49)
[2021-04-18] MEDS: ATORVASTATIN 80 MG TAB PO SCH (08:49)
[2021-04-18] MEDS: GABAPENTIN 300 MG CAP PO SCH ×3 (08:49→21:15)
[2021-04-18] MEDS: THIAMINE HCL 100 MG TABLET PO SCH (08:49)
[2021-04-18] MEDS: CLOPIDOGREL 75 MG TABLET PO SCH (08:49)
[2021-04-18] MEDS ORDERED: ATORVASTATIN 80 MG TAB ONE (09:05)
--- NOTE | 2021-04-18 12:17 | P.PN ---
Subjective Date of Service: 04/18/21 Primary Care Provider: Tiffany Loera Chief Complaint: confusion Subjective: No new changes Review of Systems 10-point ROS is otherwise unremarkable Physical Examination - Vital Signs Temperature: 98.0 F Blood Pressure: 117/62 Pulse: 72 Respirations: 15 Pulse Ox (%): 100 - Physical Exam General: Alert, In no apparent distress, Oriented x1, Delirious HEENT: Atraumatic, PERRLA, EOMI Neck: Supple, JVD not distended Respiratory: Clear to auscultation bilaterally, Normal air movement Cardiovascular: Regular rate/rhythm, Normal S1 S2 Gastrointestinal: Normal bowel sounds, No tenderness Musculoskeletal: No tenderness Integumentary: No rashes Neurological: Normal speech, Normal tone, Normal affect Lymphatics: No axilla or inguinal lymphadenopathy Assessment & Plan - Problems (Diagnosis) (1) Altered mental status Onset Date: 05/30/18 Current Visit: No Status: Chronic Plan: Patient has change in mental status Will consult Dr. Sy. Order an MRI stroke protochol. hold metformin and will give iv fluids as will need contrast. Will have PT evaluate him. Will see if the patient has a Parkinsons syndrome, CVA vs small vessel disease. Will check lipid profile and a1c 04/18 Awaiting mri and consult with Dr. Sy. Qualifiers: Altered mental status type: disorientation Qualified Code(s): R41.0 - Disorientation, unspecified (2) Chest pain Current Visit: Yes Status: Acute Plan: Patient has 3 negative troponins. Will have him seen by Dr Edouard. We can consider an outpatient work up. Qualifiers: Chest pain type: other chest pain Qualified Code(s): R07.89 - Other chest pain; R07.8 - Other chest pain (3) DM2 (diabetes mellitus, type 2) Current Visit: Yes Status: Acute Plan: Will hold the metformin. Will keep him on a sliding scale. Qualifiers: Diabetes mellitus medical terminologist insulin use: without care home use Diabetes mellitus complication status: without complication Qualified Code(s): E11.9 - Type 2 diabetes mellitus without complications (4) HTN (hypertension) Onset Date: 08/12/18 Current Visit: No Status: Acute Plan: will contine home meds. Adjust as necessary. Qualifiers: Hypertension type: primary hypertension Qualified Code(s): I10 - Essential (primary) hypertension Discharge Plan: Home Plan to discharge in: Greater than 2 days - Code Status/Comfort Care Code Status Assessed: No Physician Review: Patient Assessed, Agree with Above Assessment and Plan Critical Care: No Time Spent Managing Pts Care (In Minutes): 20
--- NOTE | 2021-04-18 12:48 | RAD REPORT ---
EXAM DESCRIPTION: MRI - Brain W/Wo Cont - 04/18/2021 12:29 pm CLINICAL HISTORY: Dementia COMPARISON: 2019 TECHNIQUE: Axial, sagittal, and coronal magnetic images of the brain were obtained. 17 cc MultiHance administered intravenously FINDINGS: Mild to moderate signal within periventricular, deep and subcortical white matter probably ischemic changes secondary to small vessel disease The ventricles are normal in caliber. Diffusion-weighted/ ADC mapping sequences do not demonstrate evidence of an acute infarction. No abnormal enhancement within the brain is seen. An extra-axial fluid collection is not noted. Fluid within the sinuses/mastoids is not seen IMPRESSION: No acute intracranial abnormality displayed
[2021-04-18] MEDS ORDERED: INSULIN -REGULAR HUMAN 50 UNIT/0.5 ML ML ONE (13:23)
[2021-04-18] MEDS ORDERED: ENOXAPARIN 30 MG/0.3 ML SQ SCH (17:00)
[2021-04-18 17:53] LABS: Urine Appearance CLEAR (Clear); Urine Bilirubin NEGATIVE (Negative); Urine Blood NEGATIVE (Negative); Urine Color YELLOW (Yellow); Urine Glucose TRACE (Negative); Urine Protein NEGATIVE (Negative); Urine Urobilinogen 0.2 mg/dL (0.2-1.0)
[2021-04-18 18:01] LABS: Urine Microscopic Reflex NO UMIC
--- NOTE | 2021-04-19 02:15 | PN ---
Reason For Consultation: Consultation called because of confusion. History Of Present Illness: Mr. Lopez is a 65-year-old right-handed patient who is admitte d to [facility] with chest pain and rule out [place]. He has a history of hypertension, diabetes mellitus, reported prior stroke, and Parkinson disease. Dr. Victoria, his primary care physician noted that over the last month or more he has had a decline in cognitive functioning and it is not his bas rodríguez level of functioning including communication with memory, language, and his judgment. At the t jayden of my evaluation, he was already ruled out for myocardial infarction. Head CT scan and brain MRI revealed no acute ischemic or hemorrhagic changes. Brain MRI showed [id number] small-vessel i schemic disease without acute stroke. No evidence of a prior large stroke or hemorrhage. He has ech ocardiogram showed normal ejection fraction of 55% to 60% and otherwise show mild tricuspid regurgita tion. The patient was lying in the emergency room bed. He was oriented to person. He knows he is in the ospital and the emergency room, the city, the year, and the month but did not know the exact floor. He is followed my commands with no difficulty. Past Medical History: As noted. Allergies: NO KNOWN DRUG ALLERGIES. Medications: Alprazolam 1 mg 3 times daily, Amitiza 8 mcg 1 capsule twice daily, aspirin 81 mg daily , atorvastatin 80 mg daily. Baclofen 10 mg twice daily, Plavix 75 mg daily, 10 mg 3 times daily, paroxetine 40 mg daily, gabapentin 600 mg 3 times daily, gemfibrozil 600 mg daily, indomethac in 25 mg twice daily, Levemir 20 units twice daily. Please continue medications Lyrica 50 mg daily, metformin 500 mg daily, omeprazole 20 mg daily, rispe ridone 2 mg daily, Flomax 0.4 mg daily, trazodone 50 mg daily, venlafaxine 75 mg daily. Social History: The patient lives with family. Review of Systems: Aside from mentioned, no recent fevers, chills, nausea, vomiting, myalgias, arthralgias, headache, we ight change, rash. No psychiatric issues. No gastrointestinal or genitourinary issues. He did have chest pain and has noted some confusion. Physical Examination: Vital Signs: Blood pressure 137/73, pulse 72, respiratory rate 16, temperature 98.0, oxygen saturati on 99% on room air. Weight 169 pounds, height 5 feet 4 inches, BMI 29. General: Mr. Lopez is rest ing comfortably. He is in no acute distress. He appears normocephalic, atraumatic. His sclerae are nonicteric. Oropharynx is pink and moist. Neck: Supple. Chest: Clear. Heart: Regular. Extremities: Show no edema or cyanosis. His speech is mildly slur red. He does not have any obvious focal cranial nerve findings with symmetric face and equal excursi ons on smiling. Hearing appears intact bilaterally. Motor examination in the upper and lower extrem ities appears to be equal and symmetric strength at least 5- out of 5 proximally and distally. Lower extremities are similarly so. No significant weakness noted in the left or right lower extremity. Sensation appeared intact except for mild stocking-glove loss, light touch and temperature. Reflexes are trace in upper and lower extremities. The patient had increased tone with some truncal and appe ndicular rigidity, making it difficult for ambulation. Laboratory Studies: Complete blood count with differential shows a low hemoglobin of 9.3, otherwise essentially unremarkable. Coagulation panel unremarkable. Chemistries showed glucose range from 160 to 265. His AST slightly elevated at 60. Otherwise, liver function studies unremarkable. TSH 0.98 6. His urinalysis is negative and COVID-19 test is negative. Assessment: Mr. Lopez is a 65-year-old patient who was on polypharmacy, possibly contributing to co nfusion. He does have parkinsonism with increased tone, stiffness and difficulty with ambulation. Keily de león has no evidence of stroke on brain MRI. He is on aspirin, Plavix along with folic acid and statin combination. He is on gabapentin for peripheral neuropathy. In terms of his cognitive functioning, he would benefit from careful neuropsychologic evaluation, EEG, and blood work to rule out reversible causes of dementia. This was actually discussed with the patient's primary care physician and he is going to be admitted for ambulation, optimization of his medical management, and after discharge, he should call Dr. Sy's office for further workup for cognitive issues. Otherwise, the patient w ill be discharged home once cleared by his primary care physician. NELSY/OSEAS Voice ID: [id number] Report ID: [id number]
[2021-04-19] MEDS: NA CHLORIDE 0.9% 1,000 ML IV SCH (04:17)
[2021-04-19 06:50] LABS: Absolute Lymphocytes (CBC) 1.9 K/uL (0.7-4.9); Basophils % 0.6 % (0-1.3); Hematocrit 31.3 % (39.6-49.0); MPV 8.2 fL (7.6-11.3); RBC Red Blood Cell Count 3.39 M/uL (4.33-5.43)
[2021-04-19 07:03] LABS: ALT/SGPT 62 U/L (12-78); AST/SGOT 55 U/L (15-37); Albumin 3.1 g/dL (3.4-5.0); Alkaline Phosphatase 117 U/L (45-117); BUN Blood Urea Nitrogen 12 mg/dL (7-18); Bicarbonate 29 mmol/L (21-32); Bilirubin Total 0.2 mg/dL (0.2-1.0); Glucose Level 201 mg/dL (74-106); Potassium 4.2 mmol/L (3.5-5.1); Protein, Total 7.8 g/dL (6.4-8.2); Sodium Level 141 mmol/L (136-145)
[2021-04-19 08:44] VITALS: BMI 28.8
[2021-04-19] MEDS: GABAPENTIN 300 MG CAP PO SCH ×2 (08:48→13:58)
[2021-04-19] MEDS: ASPIRIN EC 81 MG TAB PO SCH (08:49)
[2021-04-19] MEDS: THIAMINE HCL 100 MG TABLET PO SCH (08:49)
[2021-04-19] MEDS: ATORVASTATIN 80 MG TAB PO SCH (08:49)
[2021-04-19] MEDS: CLOPIDOGREL 75 MG TABLET PO SCH (08:49)
[2021-04-19] MEDS: PANTOPRAZOLE 40MG TABLET PO SCH (08:49)
[2021-04-19] MEDS: INSULIN -REGULAR HUMAN 50 UNIT/0.5 ML ML SQ SCH ×3 (08:50→16:30)
[2021-04-19] MEDS: FOLIC ACID 1 MG TABLET PO SCH (08:50)
[2021-04-19 09:42] VITALS: O2SAT 98
--- NOTE | 2021-04-19 11:08 | P.DS ---
Admission Date: 04/18/21 Discharge Date: 04/19/21 Primary Care Provider: Tiffany Loera Disposition: ROUTINE DISCHARGE Discharge Condition: FAIR Reason for Admission: confusion - Problems (1) Altered mental status Onset Date: 05/30/18 Current Visit: No Status: Chronic Qualifiers: Altered mental status type: disorientation Qualified Code(s): R41.0 - Disorientation, unspecified (2) Chest pain Current Visit: Yes Status: Acute Qualifiers: Chest pain type: other chest pain Qualified Code(s): R07.89 - Other chest pain; R07.8 - Other chest pain (3) DM2 (diabetes mellitus, type 2) Current Visit: Yes Status: Acute Qualifiers: Diabetes mellitus ocean transportation intermediary insulin use: without ocean transportation intermediary use Diabetes mellitus complication status: without complication Qualified Code(s): E11.9 - Type 2 diabetes mellitus without complications (4) HTN (hypertension) Onset Date: 08/12/18 Current Visit: No Status: Acute Qualifiers: Hypertension type: primary hypertension Qualified Code(s): I10 - Essential (primary) hypertension Brief History of Present Illness: Patient is a pleasant gentleman who comes in complaining of chest pain He has a history of dm2, htn. However his came in and states he has a history of a cva approx 4 years ago. His pcp thought he had parkinsons However work up was negative. He has not been walking for about 4 years. The patient has been confused for the past month. He has not had covid and has been vaccinated. Has been confused and has been speaking to his grandfather. The patient has also been fearing being placed in a alf. He has been to Dr. Loera. Who was planning on a out patient work up. However the patients conditions worsened. he complaints of chest pain 7/10 dull radiating to his left arm Hospital Course: Patient presented with worsening confusion. He suddenly had worsening mental function per his . had a negative mri. The patient was seen by Dr. Sy. Will have him follow up for a full work up. Start the patient on namenda. Arrange for home health and PT. Vital Signs/Physical Exam: Temp Pulse Resp BP Pulse Ox 97.8 F 67 18 147/74 H 98 04/19/21 08:00 04/19/21 08:00 04/19/21 08:00 04/19/21 08:00 04/19/21 08:00 General: Alert, In no apparent distress HEENT: Atraumatic, PERRLA, EOMI Neck: Supple, JVD not distended Respiratory: Clear to auscultation bilaterally, Normal air movement Cardiovascular: Regular rate/rhythm, Normal S1 S2 Gastrointestinal: Normal bowel sounds, No tenderness Musculoskeletal: No tenderness Integumentary: No rashes Neurological: Normal speech, Normal tone, Normal affect Lymphatics: No axilla or inguinal lymphadenopathy Laboratory Data at Discharge: WBC 4.60 K/uL (4.3-10.9) D 04/19/21 06:23 Hgb 10.7 g/dL (13.6-17.9) L 04/19/21 06:23 Hct 31.3 % (39.6-49.0) L 04/19/21 06:23 Plt Count 117 K/uL (152-406) L 04/19/21 06:23 PT 11.2 SECONDS (9.5-12.5) 04/16/21 19:05 INR 0.97 04/16/21 19:05 Sodium 141 mmol/L (136-145) 04/19/21 06:23 Potassium 4.2 mmol/L (3.5-5.1) 04/19/21 06:23 BUN 12 mg/dL (7-18) 04/19/21 06:23 Creatinine 0.75 mg/dL (0.55-1.3) 04/19/21 06:23 Glucose 201 mg/dL (74-106) H 04/19/21 06:23 Magnesium 1.9 mg/dL (1.8-2.4) 04/16/21 19:05 Total Bilirubin 0.2 mg/dL (0.2-1.0) 04/19/21 06:23 AST 55 U/L (15-37) H 04/19/21 06:23 ALT 62 U/L (12-78) 04/19/21 06:23 Alkaline Phosphatase 117 U/L (45-117) 04/19/21 06:23 Troponin I < 0.02 ng/mL (0.0-0.045) 04/17/21 04:10 Triglycerides Cancelled 04/18/21 06:00 Cholesterol Cancelled 04/18/21 06:00 HDL Cholesterol Cancelled 04/18/21 06:00 Cholesterol/HDL Ratio Cancelled 04/18/21 06:00 Lipase Cancelled 04/16/21 20:02 Home Medications: Sotalol HCl [Betapace*] 80 mg PO DAILY 08/12/18 Atorvastatin Calcium [Lipitor] 80 mg PO DAILY #30 tablet 08/13/18 Clopidogrel Bisulfate [Plavix*] 75 mg PO DAILY #30 tablet 08/13/18 Metformin HCl [Metformin HCl ER] 1 tab PO BID 11/14/20 Venlafaxine HCl [Venlafaxine HCl ER] 150 mg PO DAILY 11/14/20 buprenorphine HCL [Buprenorphine HCl] 8 mg SL Q8HR 11/14/20 clonazePAM [Clonazepam] 1 mg PO BID 11/14/20 Pantoprazole [Protonix Tab] 40 mg PO DAILY #40 tab 11/15/20 Amlodipine [Norvasc*] 10 mg PO DAILY 04/18/21 Dicyclomine [Bentyl*] 20 mg PO Q6HP PRN 04/18/21 Indomethacin 25 mg PO BID 04/18/21 Memantine HCl [Namenda] 10 mg PO 30 MIN BEFORE HS 30 Days #30 tablet 04/19/21 New Medications: Memantine HCl [Namenda] 10 mg PO 30 MIN BEFORE HS 30 Days #30 tablet Diet: ADA Activity: Fall precautions Followup: Anant Sy MD [ASSOCIATE-ACTIVE - CAN ADMIT] - 1-2 Weeks Bryant Loera DO [ACTIVE - CAN ADMIT] - 1 Week Time spent managing pt's care (in minutes): 30
[2021-04-19 12:24] VITALS: BP 149/72; TEMP 97.2
--- NOTE | 2021-04-20 08:22 | PN ---
Date of Progress Note: 04/18/2021 History Of Present Illness: Mr. Lopez was admitted by Dr. Fish, seen by Dr. Ha for atypical ananda st pain. He has diabetes, atrial fibrillation, altered mental status, neuropathy, anemia, gastroesop hageal reflux disease, as well as paroxysmal atrial fibrillation and anxiety. He is pain free. Neur ological consultation has been obtained, but the patient has not been seen by them yet. He has no co mplaint today. Has ruled out for myocardial infarction. I am comfortable with him going home, and opal de león will make an arrangement for him to have an outpatient appointment and a stress test. Continue pre sent regimen. CHAO/OSEAS Voice ID: [id number] Report ID: [id number]
== END 2021-04-19 16:55 | disposition home or self-care (01) | DRG 948 ==
LOC: ER 18:48 → ERHOLD 19:36 → 2ND 04-18 14:23 → OBSVTOIN 04-18 17:56
PROVIDERS: ADMIT Internal Medicine; ATTEND Internal Medicine
DX: R41.0 Disorientation, unspecified (principal); R07.89 Other chest pain; E11.9 Type 2 diabetes mellitus without complications; I10 Essential (primary) hypertension; I48.0 Paroxysmal atrial fibrillation; G20 Parkinson's disease; Z86.73 Personal history of transient ischemic attack (TIA), and cerebral infarction without residual deficits; Z96.643 Presence of artificial hip joint, bilateral; Z96.651 Presence of right artificial knee joint; Z20.822 Contact with and (suspected) exposure to COVID-19
CPT/HCPCS: 36415; 70553; 71045; 80048; 80053; 80061; 80076; 81003; 82947; 83036; 83690; 83735; 83880; 84443; 84484; 85025; 85610; 93005; 93306; 96372; 96374; 96375; 97161; 99285; A9577; G0378; J1650; J2270; J2405; J7030; U0003

== ENCOUNTER 2021-09-12 23:51 | Inpatient (IN) | payer OTHER ==
--- OUTSIDE RECORDS SUMMARY | 2021-09-13 | XMS REPORT | Continuity of Care Document ---
:1955 Author Organization [facility] t Address [address] [place] [address] Care Team Providers Name Role Phone Conner Loera DO Primary Care Physician Tiffany Loera Attending Clinician Unavailable Helen Calvillo Attending Clinician Unavailable ALEN STARKEY Attending Clinician Unavailable Samantha COLIN Attending Clinician Unavailable Simran IGNACIO Attending Clinician KRISTIN Attending Clinician Unavailable Ashvin IGNACIO Attending Clinician Doctor Unassigned, Name Attending Clinician Unavailable BREONNA JETER Attending Clinician Unavailable Lisseth ARRIETA Attending Clinician Unavailable Frantz IGNACIO, Vini Attending Clinician Rosalie IGNACIO Attending Clinician Linda IGNACIO Attending Clinician Corona NARVAEZ, Breonna Attending Clinician Teresa IGNACIO, Sharon Attending Clinician Clyde Pacheco MD Attending Clinician Jalen IGNACIO, Andrew Attending Clinician [facility] Attending Clinician Unavailable Linda IGNACIO Admitting Clinician KNOW Admitting Clinician Unavailable Payers Payer Name Policy Type Policy Number Effective Date Expiration Date [place] [facility] [id number] 2017 MEDICARE GOLD 00:00:00 MEDICARE PART A \\T\\ [id number] B - MEDICARE DUAL COMPLETE SNP [id number] PPO(WELLMED)-[facility] Problems Condition Condition Condition Status Onset Resolution Last Treating Co mments Source Name Details Category Date Date Treatment Clinician Date Other Other Disease Active Univers constipati constipati 7-24 it y of on on 00:00: [place] 00 Medical Branch Fever due Fever due Disease Active Uni vers to to 7-23 [place] Urinary Urinary Disease Active Univers tract tract 6-11 [place] 00 [facility] ESBL ESBL Branch Klebsiella Klebsiella UTI UTI Disease Active Univers (urinary (urinary 6-11 ity of tract tract 00:00: [place] infection) infection) 00 Me dical Branch Cervical Cervical Disease Active [facility] di disc disc 12-08 st disease disease 00:00: [facility] 00 l Lumbar Lumbar Disease Active Methodi disc disc 12-08 st disease disease 00:00: [facility] 00 l Fever, Fever, Disease Active Univers unknown unknown 2-19 ity of origin origin 00:00: [place] [facility] Bradycardi Bradycardi Disease Active M ethodi a a 12-08 st 00:00: Hospita 00 l Acidosis Acidosis Disease Active [facility] di 12-08 st 00:00: [facility] 00 l 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 00:00: Ho spita sm sm 00 l Parkinson' Parkinson' Disease Active U nivers s disease s disease 01-01 ity of 00:00: [place] [facility] Hypotensio Hypotensio Disease Active U nivers n n 5-30 ity of 00:00: [place] [facility] Right Right Disease Active Univers wrist wrist 408 ity of injury injury 00:00: [place] [facility] DM DM Disease Active Univers (diabetes (diabetes 1-25 ity of mellitus) mellitus) 00:00[place] [facility] [place] CHAPO on CHAPO on Disease Active Univers CPAP CPAP 1- ity of 00:00: [place] [facility] Chest pain Chest pain Disease Active U nivers 1-23 ity of 00:00: [place] [facility] SOB SOB Disease Active Univers (shortness (shortness 828 it y of of breath) of breath) [place] [facility] [place] Dyspnea Dyspnea Disease Active Overview: Univ ers and and 03-23 Formattin ity of respirator respirator 00:00: g of this [place] y y note Medical abnormalit abnormalit might be Branch y y different from the original. ICD10 Diagnosis Term Community Support Worker Utility Surgical Surgical Disease Active 2008-08 Unive rs aftercare, aftercare, 2 it y of musculoske musculoske [place] letal letal 00 Medical system system Branch GERD GERD Disease Active 2008-08 Univers (gastroeso (gastroeso it y of phageal phageal 00:00: [place] reflux reflux 00 Medical disease) disease) Branch Other Other Disease Active Univers voice and voice and 12-21 ity of resonance resonance 00:00[place] disorders disorders 00 Medi maria esther Branch Other Other Disease Active Univers voice [...] the (luts) (luts) original. ICD10 Diagnosis Term Community Support Worker Utility Fasciitis Fasciitis Disease Active Overview: Univers 4-23 Formattin ity of 00:00: g of this [place] 00 note Medical might be Branch different from the original. ICD10 Diagnosis Term Community Support Worker Utility Arthropath Arthropath Disease Active Overview : Univers y y 4-23 Formattin ity of associated associated 00:00: g of this [place] with with 00 note Medical another another might be Branch systemic systemic different disease disease from the original. ICD10 Diagnosis Term Community Support Worker Utility Degenerati Degenerati Disease Active Overview : Univers on of on of Formattin ity of interverte interverte g of this [place] bral disc, bral disc, note Me dical [...] from the original. left nephrecto my in [id number] Diagnosis Term Community Support Worker Utility Essential Essential Disease Active Overview: Univers hypertensi hypertensi Formattin ity of on on g of this [place] note Medical might be Branch different from the original. ICD10 Diagnosis Term Community Support Worker Utility Backache Backache Disease Active Overview: Un bib Formattin ity of g of this [place] note Medical might be Branch different from the original. back surgeries in , [id number] Diagnosis Term Community Support Worker Utility Hip joint Hip joint Disease Active Overview: Univers replacemen replacemen Formattin ity of t by other t by other g of this [place] means means note Medical might be Branch different from the original. B/L Asbestosis Asbestosis Disease Active Overview : Univers Formattin ity of g of this [place] note Medical might be Branch different from the original. ICD10 Diagnosis Term Community Support Worker Utility Gout Gout Disease Active Overview: Univer s Formattin ity of g of this [place] note Medical might be Branch different from the original. ICD10 Diagnosis Term Community Support Worker Utility HLD HLD Disease Active Overview: Univer s (hyperlipi (hyperlipi Formattin ity of demia) demia) g of this [place] note Medical might be Branch different from the original. ICD10 Diagnosis Term Community Support Worker Utility Allergies, Adverse Reactions, Alerts Allergy Allergy Status Severity Reaction(s) Onset Inactive Treating Comm ents Source Name Type Date Date Clinician Luma Propensi Active Other - See Unable t o Univers a-Levodo ty to comments 03-25 walk. ity of pa adverse 00:00: [place] reaction 00 Medical s Branch CARBIDOP DRUG Active Other-Cmnt Univ ers A-LEVODO 03-25 ity of PA 00:00: [place] 00 Medical Branch No Known DA Active U 2011-08 [facility] 0-03 Clear Allergie 00:00: [place] 00 [facility] No Known DA Active U 2011-08 [facility] 0-03 Clear Allergie 00:00: [place] 00 [facility] Social History Social Habit Start Date Stop Date Quantity Comments Source History of Cigarette Smoker Universi ty of tobacco use [place] [facility] Exposure to Not sure University of SARS-CoV-2 [place] Medical (event) Branch History SDOH University o f Alcohol Frequency [facility] edical Branch History SDOH University o f Alcohol Std [place] Medical Drinks Branch History SDOH University o f Alcohol Binge [place] Medic al Branch Tobacco use and 2021-09-10 2021-09-10 Former smokeless [facility] of exposure 00:00:00 00:00:00 tobacco user Medicine Alcohol intake 2019-08-22 2019-08-22 Current [facility] 00:00:00 00:00:00 non-drinker of Hospital alcohol (finding) Alcohol Comment 2008-12-04 2008-12-04 once per month Unive rsity of 00:00:00 00:00:00 [facility] Branch Tobacco Comment 2008-11-22 2008-11-22 states smoked Univer sity of 00:00:00 00:00:00 occasionly for [facility] maria esther about 3 years Branch Sex Ass[birth year] [facility] of 00:00:00 00:00:00 Medicine Smoking Status Start Date Stop Date Source Ex-smoker 2021-09-10 00:00:00 2021-09-10 00:00:00 [facility] mandeep of Medicine Never smoker [facility] Medications Ordered Filled Start Stop Current Ordering Indication Dosage Frequency Signature Comments Components Source Medication Medication Date Date Medication? Clinician (SIG) Name Name metformin Yes 500mg Take 500 [place] rachel (GLUCOPHAGE 2-09 mg by [place] ) 500 MG 13:58: mouth of tablet 52 daily. Medicin e clonazepam Yes 1mg Take 1 mg [facility] (KLONOPIN) 2-09 by mouth Colle ge 1 MG tablet 13:58: daily. of 52 Medicin e venlafaxine Yes 75mg Take 75 mg Jaren (EFFEXOR-XR 2-09 by mouth Alyssa ege ) 75 MG XR 13:58: daily. of capsule 52 Medicin e clopidogrel Yes 75mg Take 75 mg [facility] (PLAVIX) 75 2-09 by mouth Alyssa ege MG Tablet 13:58: daily. of 52 Medicin e indomethaci Yes 25mg Take 25 mg Jaren n (INDOCIN) 2-09 by mouth 3 Co llege 25 MG 13:58: times of capsule 52 daily. Medicin e Aspirin Yes 81mg Take 81 mg [place] (ASPIR-LOW) 2-09 by mouth Alyssa ege 81 MG 13:58: once. of tablet 52 Medicin e Cyanocobala Yes Take by Ba florenceor min (B-12) 2-09 mouth. [place] 2500 MCG 13:58: of TABS 52 Medicin e Ascorbic Yes Take by [facility] [facility] Acid 2-09 mouth. [place] (VITAMIN C) 13:58: of 500 MG CAPS 52 Medicin e Ferrous Yes Take by [facility] Sulfate 2-09 mouth. [place] (IRON) 325 13:58: of (65 Fe) MG 52 Medicin TABS e Insulin Yes 20U Inject 20 [facility] Detemir 2-09 Units into Colleg e (LEVEMIR 13:58: the skin. of [place]) 52 Medicin e Buprenorphi Yes 8mg Take 8 mg B aylor ne HCl 8 MG 1-19 by mouth [place]a ege SUBL 00:00: every 8 of 00 hours as Medicin needed. e sotalol 2020-08 Yes 80mg Take 80 mg [facility] (BETAPACE) 2-13 by mouth Colle ge 80 MG 00:00: daily. of tablet 00 Medicin e atorvastati 2021-1 Yes 80mg Take 80 mg [facility] n (LIPITOR) 2-13 by mouth Alyssa ege 80 MG 00:00: daily. of tablet 00 Medicin e AMLODIPINE 2020-08 Yes TAKE 1 Unive rs 10 mg 1-26 TABLET BY ity of tablet 00:00: MOUTH [place] 00 DAILY Medical Branch PANTOPRAZOL 2020-08 Yes [id number] 40mg TAKE 1 Univers E 40 mg EC 0-11 TABLET BY ity of tablet 00:00: MOUTH [place] 00 DAILY Medical Branch PANTOPRAZOL 2020-08 Yes [id number] 40mg TAKE 1 Univers E 40 mg EC 0-11 TABLET BY ity of tablet 00:00: MOUTH [place] 00 DAILY Medical Branch memantine Yes 10mg Take 10 mg [facility] (NAMENDA) 9-18 by mouth Colleg e 10 MG 00:00: two times of tablet 00 daily. Medicin e NaCl 0.9% 2020- No 1000mL at 999 Uni vers (NS) bolus 8- 08-31 mL/hr, ity of infusion 05:30: 05:30 1,000 mL, [place] as 1,000 mL 00 :00 IV Medical Infusion, Branch ONCE, 1 dose, 04/01/21 at 0030, STAT NaCl 0.9% 2020- No 1000mL at 999 Uni vers (NS) bolus 8- 08-31 mL/hr, ity of infusion 05:30: 05:30 [...] 1 Branch dose, 03/31/21 at 2115, STAT NaCl 0.9% 0 2020- No 500mL at 999 Univ ers (NS) bolus 04-01 08-31 mL/hr, 500 it y of infusion 02:15: 02:55 mL, IV [place] 500 mL 00 :00 Piggyback, Medical ONCE, 1 Branch dose, 8/30/21 at 2115, STAT amLODIPine 2020- No [id number] 10mg Take 1 Univers 10 mg 7-29 10-28 tablet by ity of tablet 00:00: 04:59 mouth [place] 00 :00 daily for Medical 90 days. Branch amLODIPine 2020- No [id number] 10mg Take 1 Univers 10 mg 7-29 10-28 tablet by ity of tablet 00:00: 04:59 mouth [place] 00 :00 daily for Medical 90 days. Branch amLODIPine 2020- No [id number] 10mg Take 1 Univers 10 mg 7-29 10-28 tablet by ity of tablet 00:00: 04:59 mouth [place] 00 :00 daily for Medical 90 days. Branch amLODIPine 2020- No [id number] 10mg Take 1 Univers 10 mg 7-29 10-28 tablet by ity of tablet 00:00: 04:59 mouth [place] 00 :00 daily for Medical 90 days. Branch amLODIPine 2020- No [id number] 10mg Take 1 Univers 10 mg 7-29 10-28 tablet by ity of tablet 00:00: 04:59 mouth [place] 00 :00 daily for Medical 90 days. Branch amLODIPine 2020- No [id number] 10mg Take 1 Univers 10 mg 7-29 [...] times daily before breakfast and dinner. atorvastati 2020-0 Yes 80mg Take 80 mg Univers n 80 mg 7-28 by mouth ity of tablet 23:25: at [place] [address] bedtime. Medical Branch metFORMIN 2020-0 Yes 500mg Take 500 Uni vers 500 mg 7-28 mg by ity of tablet 23:25: mouth 2 [place] [address] (two) Medical times Branch daily with meals. clopidogreL 2020-0 Yes 75mg Take 75 mg Univers (PLAVIX) 75 7-28 by mouth ity of mg tablet 23:25: daily. [place] [address] Medical Branch gabapentin 2020-0 Yes 600mg Take 600 Un bib 300 mg 7-28 mg by ity of capsule 23:25: mouth 3 [place] [address] (three) Medical times Branch daily. venlafaxine 2020-0 Yes 112.5mg Take 112.5 Univers XR 37.5 mg 7-28 mg by ity of 24 hr 23:25: mouth [facility] 24 daily with Medica l breakfast. Branch baclofen 5 0 Yes 10mg Take 10 mg U nivers mg tablet 7-28 by mouth 2 ity of 23:25: (two) [place] [address] times Medical daily as Branch needed (back pain). insulin 2020-0 Yes 20U inject 20 Unive rs detemir 7-28 Units ity of (LEVEMIR 23:25: under the [facility] s U-100 24 skin 2 Medical INSULIN [place]) (two) Branch times daily before breakfast and dinner. atorvastati 2020-0 Yes 80mg Take 80 mg Univers n 80 mg 7-28 by mouth ity of tablet 23:25: at [place] [address] bedtime. Medical Branch metFORMIN 2020-0 Yes 500mg Take 500 Uni vers 500 mg 7-28 mg by ity of tablet 23:25: mouth 2 [place] [address] (two) Medical times Branch daily with meals. clopidogreL 2020-0 Yes 75mg Take 75 mg Univers (PLAVIX) 75 7-28 by mouth ity of mg tablet 23:25: daily. [place] [address] Medical Branch gabapentin 2020-0 Yes 600mg Take 600 Un bib 300 mg 7-28 mg by ity of capsule 23:25: mouth 3 [place] [address] (three) Medical times Branch daily. venlafaxine 2020-0 Yes 112.5mg Take 112.5 Univers XR 37.5 mg 7-28 mg by ity of 24 hr 23:25: mouth [place] capsule 24 daily with Medica l breakfast. Branch baclofen 5 Yes 10mg Take 10 mg U nivers mg tablet 7-28 by mouth 2 ity of 23:25: (two) [place] 24 times Medical daily as Branch needed (back pain). insulin Yes 20U inject 20 Unive rs detemir 7-28 Units ity of (LEVEMIR 23:25: under the [facility] s U-100 24 skin 2 Medical INSULIN [place]) (two) Branch times daily before breakfast and dinner. atorvastati Yes 80mg Take 80 mg Univers n 80 mg 7-28 by mouth ity of tablet 23:25: at [place] [address] bedtime. Medical Branch metFORMIN Yes 500mg Take 500 Uni vers 500 mg 7-28 mg by ity of tablet 23:25: mouth 2 [place] 24 (two) Medical times Branch daily with meals. clopidogreL Yes 75mg Take 75 mg Univers (PLAVIX) 75 7-28 by mouth ity of mg tablet 23:25: daily. [place] [address] Medical Branch gabapentin Yes 600mg Take 600 Un bib 300 mg 7-28 mg by ity of capsule 23:25: mouth 3 [place] 24 (three) Medical times Branch daily. venlafaxine Yes 112.5mg Take 112.5 Univers XR 37.5 mg 7-28 mg by ity of 24 hr 23:25: mouth [place] capsule 24 daily with Medica l breakfast. Branch baclofen 5 Yes 10mg Take 10 mg U nivers mg tablet 7-28 by mouth 2 ity of 23:25: (two) [place] 24 times Medical daily as Branch needed (back pain). insulin Yes 20U inject 20 Unive rs detemir 7-28 Units ity of (LEVEMIR 23:25: under the [place] U-100 24 skin 2 Medical INSULIN [place]) (two) Branch times daily before breakfast and dinner. atorvastati Yes 80mg Take 80 mg Univers n 80 mg 7-28 by mouth ity of tablet 23:25: at [place] [address] bedtime. Medical Branch metFORMIN Yes 500mg Take 500 Uni vers 500 mg 7-28 mg by ity of tablet 23:25: mouth 2 [place] 24 (two) Medical times Branch daily with meals. clopidogreL 0 Yes 75mg Take 75 mg Univers (PLAVIX) 75 7-28 by mouth ity of mg tablet 23:25: daily. [place] [address] Medical Branch gabapentin 2020-0 Yes 600mg Take 600 Un bib 300 mg 7-28 mg by ity of capsule 23:25: mouth 3 [place] 24 (three) Medical times Branch daily. venlafaxine 2020-0 Yes 112.5mg Take 112.5 Univers XR 37.5 mg 7-28 mg by ity of 24 hr 23:25: mouth [place] capsule 24 daily with Medica l breakfast. Branch baclofen 5 0 Yes 10mg Take 10 mg U nivers mg tablet 7-28 by mouth 2 ity of 23:25: (two) [place] [address] times Medical daily as Branch needed (back pain). insulin 2020-0 Yes 20U inject 20 Unive rs detemir 7-28 Units ity of (LEVEMIR 23:25: under the [facility] s U-100 24 skin 2 Medical INSULIN [place]) (two) Branch times daily before breakfast and dinner. atorvastati 0 Yes 80mg Take 80 mg Univers n 80 mg 7-28 by mouth ity of tablet 23:25: at [place] [address] bedtime. Medical Branch metFORMIN 2020-0 Yes 500mg Take 500 Uni vers 500 mg 7-28 mg by ity of tablet 23:25: mouth 2 [place] [address] (two) Medical times Branch daily with meals. clopidogreL 0 Yes 75mg Take 75 mg Univers (PLAVIX) 75 7-28 by mouth ity of mg tablet 23:25: daily. [place] [address] Medical Branch gabapentin 2020-0 Yes 600mg Take 600 Un bib 300 mg 7-28 mg by ity of capsule 18:25: mouth 3 [place] 24 (three) Medical times Branch daily. venlafaxine 2020-0 Yes 112.5mg Take 112.5 Univers XR 37.5 mg 7-28 mg by ity of 24 hr 18:25: mouth [place] capsule 24 daily with Medica l breakfast. Branch baclofen 5 2020-0 Yes 10mg Take 10 mg U nivers mg tablet 7-28 by mouth 2 ity of 18:25: (two) [place] [address] times Medical daily as Branch needed (back pain). insulin Yes 20U inject 20 Unive rs detemir 7-28 Units ity of (LEVEMIR 18:25: under the [facility] s U-100 24 skin 2 Medical INSULIN [place]) (two) Branch times daily before breakfast and dinner. atorvastati Yes 80mg Take 80 mg Univers n 80 mg 7-28 by mouth ity of tablet 18:25: at [place] [address] bedtime. Medical Branch metFORMIN Yes 500mg Take 500 Uni vers 500 mg 7-28 mg by ity of tablet 18:25: mouth 2 [place] [address] (two) Medical times Branch daily with meals. clopidogreL Yes 75mg Take 75 mg Univers (PLAVIX) 75 7-28 by mouth ity of mg tablet 18:25: daily. [place] [address] Medical Branch gabapentin Yes 600mg Take 600 Un bib 300 mg 7-28 mg by ity of capsule 18:25: mouth 3 [place] [address] (three) Medical times Branch daily. venlafaxine Yes 112.5mg Take 112.5 Univers XR 37.5 mg 7-28 mg by ity of 24 hr 18:25: mouth [place] capsule 24 daily with Medica l breakfast. Branch baclofen 5 Yes 10mg Take 10 mg U nivers mg tablet 7-28 by mouth 2 ity of 18:25: (two) [place] [address] times Medical daily as Branch needed (back pain). insulin Yes 20U inject 20 Unive rs detemir 7-28 Units ity of (LEVEMIR 18:25: under the [facility] U-100 24 skin 2 Medical INSULIN [place]) (two) Branch times daily before breakfast and dinner. atorvastati Yes 80mg Take 80 mg Univers n 80 mg 7-28 by mouth ity of tablet 18:25: at [place] [address] bedtime. Medical Branch metFORMIN Yes 500mg Take 500 Uni vers 500 mg 7-28 mg by ity of tablet 18:25: mouth 2 [place] [address] (two) Medical times Branch daily with meals. clopidogreL Yes 75mg Take 75 mg Univers (PLAVIX) 75 7-28 by mouth ity of mg tablet 18:25: daily. [place] [address] Medical Branch desipramine 2020-0 202- No 10mg Take 10 mg Univers 10 mg 02-26 by mouth 3 ity of tablet 17:05: 00:00 (three) [place] 58 :00 times Medical daily. Branch BUPRENORPHI No 10mg Place 10 U nivers NE HCL 02-26- mg in ity of BUCCAL 17:05: 00:00 cheeks [place] 58 :00 every 12 Medical (twelve) Branch hours. sotaloL 2020- No 80mg Take 80 mg Uni vers (SOTALOL 02-26 by mouth ity of AF) 80 mg 17:05: 00:00 daily. [place] tablet 58 :00 Medical Branch amLODIPine- No amlodipine Univers benazepriL 02-26 10 ity of 10-40 mg 17:05: 00:00 mg-benazep [place] per capsule 58 :00 ril 40 mg Med ical capsule Branch amLODIPine Yes 10mg 10 mg, Unive rs (NORVASC) 02-26 Oral, ity of tablet 10 14:00: DAILY, [place] mg 00 First dose Medical (after Branch last modificati on) on Wed02/26/21 at 0900, Until Discontinu ed, Routine sennosides Yes [id number] 8.6mg Take 1 Univers 8.6 mg 7-28 tablet by ity of tablet 00:00: mouth 2 [place] 00 (two) Medical times Branch daily. polyethylen Yes [id number] 17g Take 1 Univers e glycol -28 Packet by ity of 3350 17 00:00: mouth 2 [place] gram powder 00 (two) Medical times Branch daily. pantoprazol Yes [id number] 40mg Take 1 Univers e 40 mg EC 7-28 tablet by ity of tablet 00:00: mouth [place] 00 daily. Medical Branch bisacodyL Yes [id number] 10mg Insert 1 Univers 10 mg -28 Suppositor ity of suppository 00:00: y into [place] 00 rectum at Medical bedtime. Branch sennosides Yes [id number] 8.6mg Take 1 Univers 8.6 mg 7-28 tablet by ity of tablet 00:00: mouth 2 [place] 00 (two) Medical times Branch daily. polyethylen Yes [id number] 17g Take 1 Univers e glycol 7-28 Packet by ity of 3350 17 00:00: mouth 2 [place] gram powder (two) Medical times Branch daily. pantoprazol Yes [id number] 40mg Take 1 Univers e 40 mg EC 7-28 tablet by ity of tablet 00:00: mouth [place] 00 daily. Medical Branch bisacodyL Yes [id number] 10mg Insert 1 Univers 10 mg 7-28 Suppositor ity of suppository 00:00: y [place] 00 rectum at Medical bedtime. Branch sennosides Yes [id number] 8.6mg Take 1 Univers 8.6 mg 7-28 tablet by ity of tablet 00:00: mouth 2 (two) Medical times Branch daily. polyethylen Yes [id number] 17g Take 1 Univers e glycol 7-28 Packet by ity of 3350 17 00:00: mouth 2 [place] gram powder (two) Medical times Branch daily. pantoprazol Yes [id number] 40mg Take 1 Univers e 40 mg EC 7-28 tablet by ity of tablet 00:00: mouth 00 daily. Medical Branch bisacodyL Yes [id number] 10mg Insert 1 Univers 10 mg 7-28 Suppositor ity of suppository 00:00: y into [place] 00 rectum at Medical bedtime. Branch sennosides Yes [id number] 8.6mg Take 1 Univers 8.6 mg 7-28 tablet by ity of tablet 00:00: mouth 2 (two) Medical times Branch daily. polyethylen Yes [id number] 17g Take 1 Univers e glycol 7-28 Packet by ity of 3350 17 00:00: mouth 2 [place] gram powder (two) Medical times Branch daily. pantoprazol Yes [id number] 40mg Take 1 Univers e 40 mg EC 7-28 tablet by ity of tablet 00:00: mouth [place] 00 daily. Medical Branch bisacodyL Yes [id number] 10mg Insert 1 Univers 10 mg 7-28 Suppositor ity of suppository 00:00: y into [place] 00 rectum at Medical bedtime. Branch sennosides Yes [id number] 8.6mg Take 1 Univers 8.6 mg 7-28 tablet by ity of tablet 00:00: mouth 2 (two) Medical times Branch daily. polyethylen Yes [id number] 17g Take 1 Univers e glycol 7-28 Packet by ity of 3350 17 00:00: mouth 2 [place] gram powder (two) Medical times Branch daily. pantoprazol Yes [id number] 40mg Take 1 Univers e 40 mg EC 7-28 tablet by ity of tablet 00:00: mouth daily. Medical Branch bisacodyL Yes [id number] 10mg Insert 1 Univers 10 mg 7-28 Suppositor ity of suppository 00:00: y into [place] 00 rectum at Medical bedtime. Branch sennosides Yes [id number] 8.6mg Take 1 Univers 8.6 mg 7-28 tablet by ity of tablet 00:00: mouth 2 (two) Medical times Branch daily. polyethylen Yes [id number] 17g Take 1 Univers e glycol 7-28 Packet by ity of 3350 17 00:00: mouth 2 [place] gram powder (two) Medical times Branch daily. bisacodyL Yes [id number] 10mg Insert 1 Univers 10 mg 7-28 Suppositor ity of suppository 00:00: y into [place] 00 rectum at Medical bedtime. Branch sennosides Yes [id number] 8.6mg Take 1 Univers 8.6 mg 7-28 tablet by ity of tablet 00:00: mouth 2 (two) Medical times Branch daily. polyethylen Yes [id number] 17g Take 1 Univers e glycol 7-28 Packet by ity of 3350 17 00:00: mouth 2 [place] gram powder (two) Medical times Branch daily. bisacodyL Yes [id number] 10mg Insert 1 Univers 10 mg 7-28 Suppositor ity of suppository 00:00: y into [place] 00 rectum at Medical bedtime. Branch pantoprazol 2020- No [id number] 40mg Take 1 Univers e 40 mg EC 02-26 tablet by ity of tablet 00:00: 00:00 mouth [place] 00 :00 daily. Medical Branch sulfamethox 2020- No [id number] 1{tbl} Take 1 Univers azole-trime 02-26-11 tablet by it y of thoprim 00:00: 04:59 mouth 2 [place] 800-160 mg 00 :00 (two) Medical per tablet times Branch daily for 13 days. sulfamethox 2020- No [id number] 1{tbl} Take 1 Univers azole-trime 02-26 tablet by it y of thoprim 00:00: 04:59 mouth 2 [place] 800-160 mg 00 :00 (two) Medical per tablet times Branch daily for 13 days. clonazePAM Yes .5mg 0.5 mg, Univ ers (KLONOPIN) 02-25 Oral, ity of tablet 0.5 19:45: DAILY, [place] mg 00 First dose Medical on [facility] 02/25/21 at 1445, Until Discontinu ed, Routine amLODIPine 2020- No 5mg 5 mg, [facility] rs (NORVASC) 02-25 Oral, ity of tablet 5 mg 19:41: 20:59 [place]CE, 1 [place] :[place] dose, [facility] 02/25/21 at Branch 1445, Routine clopidogreL Yes 75mg 75 mg, [facility] ers (PLAVIX) 02-25 Oral, ity of tablet 75 14:00: DAILY, [place] mg 00 First dose Medical on [facility] 02/25/21 at 0900, Until Discontinu ed, Routine insulin Yes 20U 20 Units, [facility] rs detemir 02-25 Subcutaneo ity of U-100 12:30: us, BIDAC, [place] (LEVEMIR 00 First dose Medic al U-100 on [facility] INSULIN) 02/25/21 at injection 0730, 20 Units Until Discontinu ed
Rest ricted - To be dispensed only to: Continuati on from home Sliding Yes Subcutaneo Univ ers Scale 02-25 us, TID ity of Insulin - 02:00: MEALS+HS, [place] as Lispro 00 First dose Medical (HumaLOG) + (after [place] [facility] last Testing modificati on) on [facility] 02/24/21 at 2100, Until Discontinu ed, Routine atorvastati Yes 80mg 80 mg, Univ ers n (LIPITOR) 02-25 Oral, QHS, it y of tablet 80 02:00: [place] dose [place] mg 00 on [facility] 02/24/21 at Branch 2100, Until Discontinu ed, Routine gabapentin Yes 600mg 600 mg, Uni vers (NEURONTIN) 02-25 Oral, TID, it y of capsule 600 01:00: First dose [place] mg 00 on [facility] 02/24/21 at Branch 2000, Until Discontinu ed, Routine sulfamethox Yes 1{tbl} 1 tablet, [facility] azole-trime 02-25 Oral, BID, it [place] of thoprim 01:00: [place] (BACTRIM 00 on [facility] DS) 800-160 02/24/21 at Br anch mg per 1999, tablet 1 Until tablet Discontinu ed, EDIL
Re ason for Anti-Infec tive: Documented Infection< br>Documen elaine Infection Site: Urine
D uration of Therapy: 7 days baclofen Yes 10mg 10 mg, Univers (LIORESAL) 02-24 Oral, ity of tablet 10 22:29: BIDPRN, [place] mg 21 Starting Medical [facility] 02/24/21 at 1729, Until Discontinu ed, Routine, back pain famotidine 2020- No 20mg 20 mg, [facility] ers (PEPCID AC) 02-24 Oral, ity of tablet 20 15:00: 14:19 ONCE, 1 [place] mg 00 :00 dose, [facility] 02/24/21 at Branch 1000, Routine amLODIPine 2020- No 5mg 5 mg, Unive rs (NORVASC) 02-24 Oral, ity of tablet 5 mg 14:00: 19:41 DAILY, [place] 00 :51 First dose Medical on [facility] 02/24/21 at 0900, Until Discontinu ed, Routine bisacodyL Yes 10mg 10 mg, Univer s (DULCOLAX) 02-23 Rectal, ity of suppository 02:00: QHS, First [place] 10 mg 00 dose Medical (after Branch last modificati on) on Wed02/22/21 at 2100, Until Discontinu ed, Routine sennosides Yes 8.6mg 8.6 mg, Uni vers (SENOKOT) 02-21 Oral, BID, ity of tablet 8.6 21:30: First dose [place] mg 00 on Wed Medical 02/21/21 at Branch 1630, Until Discontinu ed, Routine polyethylen Yes 17g 17 g, Unive rs e glycol 02-21 Oral, BID, ity o f 3350 powder 21:30: First dose [place] 17 g 00 on Wed Medical 02/21/21 at Branch 1630, Until Discontinu ed, Routine piperacilli 2020- No 3.375g 3.375 g, Univers n-tazobacta 02-21 IV ity of m (ZOSYN) 14:30: 20:43 Pig[place]back, [place] 3.375 00 :53 Q6H ABX, Medical gram/50 mL First dose Bra [facility] Piggyback (after RTU 3.375 g last reorder) on Wed02/21/21 at 0930, Until Discontinu ed, 50 mL
Reas on for Anti-Infec tive: Documented Infection< br>Documen elaine Infection Site: Urine
D uration of Therapy: Other (see Comments) magnesium 2020- No 2000mg 2,000 mg, Univers sulfate in 02-21 IV ity of water 2 14:15: 16:54 [place]fusion, [place] gram/50 mL 00 :00 ONCE, 1 Medica l (4 %) 2,000 dose, Wed [facility] mg 02/21/21 at piggyback 0915 pantoprazol Yes 40mg 40 mg, Univ ers e 02-21 Oral, ity of (PROTONIX) 14:00: DAILY, [place] EC tablet 00 First dose Medi maria esther 40 mg on Wed Branch 02/21/21 at 0900, Until Discontinu ed, Routine sennosides- 2020- No 1{tbl} 1 tablet, Univers docusate 02-2124 Oral, ity of sodium 14:00: 14:06 DAILY, [place] (SENOKOT-S) 00 :29 First dose Me dical 8.6-50 mg on Wed Branch per tablet 02/21/21 at 1 tablet 0900, Until Discontinu ed, Routine heparin Yes 5000U 5,000 Univers (porcine) 02-21 Units, ity of injection 13:00: Subcutaneo [place] 5,000 Units 00 us, Q12H, Med ical First dose Branch on Wed02/21/21 at 0800, Until Discontinu ed, Routine Sliding 2020- No Subcutaneo Uni vers Scale 02-21 , AC+HS, ity of Insulin-Reg 12:30: 00:28 First dose [place] ular + Fsbg 00 :19 on Wed Medica l Testing 02/21/21 at [place] 0730, Until Discontinu ed, Routine acetaminoph Yes 650mg 650 mg, Un bib en 02-21 Oral, ity of (TYLENOL) 10:38: Q6HPRN, [place] tablet 650 43 Starting Medic al mg Wed Branch 02/21/21 at 0538, Until Discontinu ed, Routine, Pain (scale 1-3), Temp > 38.5 C NaCl 0.9% 2020- No 1000mL at 999 Uni vers (NS) bolus 02-21 mL/hr, ity of infusion 10:15: 11:19 1,000 mL, [place] as 1,000 mL 00 :00 [facility] dose, Wed02/21/21 at 0515, STAT cefTRIAXone 2020- No 1000mg 1,000 mg, Univers (ROCEPHIN) 02-21 IV ity of 1,000 mg in 10:02: 13:18 [place], [place] NaCl 0.9% 00 :11 Q24H ABX, Medic al (NS) 50 mL First dose Bra nch MINI-BAG on Wed02/21/21 at 0515, Until Discontinu ed, 50 mL
R laura for Anti-Infec tive: Documented Infection< br>Documen elaine Infection Site: Urine<br&g t;Duration of Therapy: 14 days piperacilli 2020- No 3.375g 3.375 g, Univers n-tazobacta 02-21 IV ity of m (ZOSYN) 07:15: 07:40 [place]back, [place] 3.375 g in 00 :00 ONCE, 1 Medica l NaCl 0.9% dose, Fri Branc h (NS) 100 mL 02/21/21 at MINI-BAG 0215, 100 mL
Reas on for Anti-Infec tive: Documented Infection< br>Documen elaine Infection Site: Urine
D uration of Therapy: Other (see Comments) NaCl 0.9% 2020- No 1000mL at 100 Uni vers (NS) IV 02-21 mL/hr, ity of infusion 07:00: 17:01 Intravenou [place] 1,000 mL 00 :20 s, Medical [facility] Branch , Starting Wed02/21/21 at 0200, Until Wed02/21/21 at 1201, Routine clindamycin 2020- No 600mg 600 mg, IV Univers (CLEOCIN) 02-21 Piggyback, ity of injection 03:15: 03:15 ONCE, 1 [place] 600 mg 00 :00 dose, [place] Medical 02/20/21 at Branch 2215, EDIL
Re ason for Anti-Infec tive: Documented Infection< br>Documen elaine Infection Site: Urine
D uration of Therapy: Other (see Comments)< br>Restric elaine use approved by: [employer] PROVIDER iopamidol 2020- No [id number] 120mL 120 mL, Univers (ISOVUE 02-21 Intravenou ity o f 370-500 mL) 02:33: 02:33 s, ONCE, 1 [place] injection 00 :00 dose, [facility] Medic al 120 mL 02/20/21 at Branch 2145, Routine NaCl 0.9% 2020- No 1000mL at 999 Uni vers (NS) bolus 02-21 mL/hr, ity of infusion 02:00: 05:10 1,000 mL, [place] as 1,000 mL 00 :00 IV Medical Piggyback, Branch ONCE, 1 dose, [facility] 02/20/21 at 2100, STAT clonazePAM 2020-0 Yes [id number] .5mg Take 1 Un bib 0.5 mg 6-18 tablet by ity of tablet 00:00: mouth 2 (two) Medical times Branch daily as needed (anxiety). amLODIPine 2020-0 Yes [id number] 5mg Take 1 U nivers 5 mg tablet 6-18 tablet by ity of 00:00: mouth [place] 00 daily. Medical Branch carvediloL 2020-0 Yes [id number] 12.5mg Take 1 Univers 12.5 mg 6-18 tablet by ity of tablet 00:00: mouth 2 (two) Medical times Branch daily with meals. NaCl 0.9% 2020-0 Yes [id number] 2000mg Infuse U nivers (NS) SolP 6-18 2,000 mg ity of 100 mL with 00:00: every 8 [place] ceFAZolin 00 (eight) Medical 10 gram hours. Branch SolR 2,000 mg clonazePAM 2020-0 Yes [id number] .5mg Take 1 Un bib 0.5 mg 6-18 tablet by ity of tablet 00:00: mouth (two) Medical times Branch daily as needed (anxiety). amLODIPine 2020-0 Yes [id number] 5mg Take 1 U nivers 5 mg tablet 6-18 tablet by ity of 00:00: mouth [place] 00 daily. Medical Branch carvediloL 2020-0 Yes [id number] 12.5mg Take 1 Univers 12.5 mg 6-18 tablet by ity of tablet 00:00: mouth 2 (two) Medical times Branch daily with meals. NaCl 0.9% 2020-0 Yes [id number] 2000mg Infuse U nivers (NS) SolP 6-18 2,000 mg ity of 100 mL with 00:00: every 8 [place] ceFAZolin 00 (eight) Medical 10 gram hours. Branch SolR 2,000 mg clonazePAM 1-0 Yes [id number] .5mg Take 1 Un bib 0.5 mg 6-18 tablet by ity of tablet 00:00: mouth 2 00 (two) Medical times Branch daily as needed (anxiety). amLODIPine 2020-0 Yes [id number] 5mg Take 1 U nivers 5 mg tablet 6-18 tablet by ity of 00:00: mouth 00 daily. Medical Branch carvediloL 2020-0 Yes [id number] 12.5mg Take 1 Univers 12.5 mg 6-18 tablet by ity of tablet 00:00: mouth 2 (two) Medical times Branch daily with meals. NaCl 0.9% 1-0 Yes [id number] 2000mg Infuse U nivers (NS) SolP 6-18 2,000 mg ity of 100 mL with 00:00: every 8 [place] ceFAZolin 00 (eight) Medical 10 gram hours. Branch SolR 2,000 mg clonazePAM 1-0 Yes [id number] .5mg Take 1 Un bib 0.5 mg 6-18 tablet by ity of tablet 00:00: mouth (two) Medical times Branch daily as needed (anxiety). amLODIPine 2020-0 Yes [id number] 5mg Take 1 U nivers 5 mg tablet 6-18 tablet by ity of 00:00: mouth 00 daily. Medical Branch carvediloL 2020-0 Yes [id number] 12.5mg Take 1 Univers 12.5 mg 6-18 tablet by ity of tablet 00:00: mouth (two) Medical times Branch daily with meals. NaCl 0.9% 2020-0 Yes [id number] 2000mg Infuse U nivers (NS) SolP 6-18 2,000 mg ity of 100 mL with 00:00: every 8 [place] ceFAZolin 00 (eight) Medical 10 gram hours. Branch SolR 2,000 mg clonazePAM 2021-0 Yes [id number] .5mg Take 1 Un bib 0.5 mg 6-18 tablet by ity of tablet 00:00: mouth (two) Medical times Branch daily as needed (anxiety). clonazePAM 2021-0 Yes [id number] .5mg Take 1 Un bib 0.5 mg 6-18 tablet by ity of tablet 00:00: mouth 2 (two) Medical times Branch daily as needed (anxiety). clonazePAM 2021-0 Yes [id number] .5mg Take 1 Un bib 0.5 mg 6-18 tablet by ity of tablet 00:00: mouth 2 (two) Medical times Branch daily as needed (anxiety). clonazePAM 2020-0 Yes [id number] .5mg Take 1 Un bib 0.5 mg 6-18 tablet by ity of tablet 00:00: mouth 2 (two) Medical times Branch daily as needed (anxiety). clonazePAM 2020-0 Yes [id number] .5mg Take 1 Un bib 0.5 mg 6-18 tablet by ity of tablet 00:00: mouth 2 (two) Medical times Branch daily as needed (anxiety). clonazePAM 2020-0 Yes [id number] .5mg Take 1 Un bib 0.5 mg 6-18 tablet by ity of tablet 00:00: mouth 2 (two) Medical times Branch daily as needed (anxiety). clonazePAM 2020-0 Yes [id number] .5mg Take 1 Un bib 0.5 mg 6-18 tablet by ity of tablet 00:00: mouth 2 (two) Medical times Branch daily as needed (anxiety). amLODIPine 2020- No [id number] 5mg Take 1 Univers 5 mg tablet -18 - tablet by it y of 00:00: 00:00 mouth [place] 00 :00 daily. Medical Branch carvediloL 2020- No [id number] 12.5mg Take 1 Univers 12.5 mg 6-18 - tablet by ity of tablet 00:00: 00:00 mouth 2 00 :00 (two) Medical times Branch daily with meals. NaCl 0.9% 2020- No [id number] 2000mg Infuse Univers (NS) SolP 6-18 - 2,000 mg ity o f 100 mL with 00:00: 00:00 every 8 [place] ceFAZolin 00 :00 (eight) Medical 10 gram hours. Branch SolR 2,000 mg Humulin R Humulin R 2019- Yes [place] [address] 8-07 [place] PRN for BG [facility] - 00:00: >200 1 hr [facility] 00 after l meals Outpati ent Clinics baclofen 2019-0 Yes [id number] 10mg Q.5D Take 1 Meth ivette (LIORESAL) 3-11 tablet (10 st 10 MG 00:00: mg total) Hospita tablet 00 by mouth 2 l (two) times a day. insulin 2020-0 Yes Q.5D Inject Methodi lispro 1-[address] (HumaLOG) 15:04: skin 2 Hospit a 100 unit/mL 33 (two) l injection times a day before meals. (PER SLIDING SCALE) gabapentin 2020-0 Yes 600mg Q.[id number] Take 600 [facility] (NEURONTIN) 1-21 [id number] mg by s t 600 mg 15:04: 3D mouth 3 Hospita tablet 33 (three) l times a day. tamsulosin 2020-0 Yes .4mg QD Take 0.4 Met hodi (FLOMAX) 1-[address] 0.4 mg 15:04: mouth Hospita capsule,ext 33 every l ended morning. release 24hr metFORMIN 2020-0 Yes 500mg Q.[id number] Take 500 [facility] (GLUCOPHAGE 1-21 [id number] mg by s t ) 500 mg [...] 8 mg 2 Meth ivette ne HCL 1-06 (two) st (SUBUTEX) 8 00:00: times a Hos vikram mg tablet, 00 day. l sublingual Pen [place] Pen [place] 2018-08 Yes [place] [address] 1-11 [place] needle [facility] - 00:00: [facility] 00 l [facility] ent Clinics Lancets Lancets 2018-08 Yes [place] [address] 1-11 [facility] - 00:00: [facility] 00 l [facility] ent Clinics desipramine Yes 10mg QD Take [...] 6-27 st 32 gauge x 00:00: Hospita 5/32" 00 l needle One Touch One Touch Yes [place] [address] [address] Ultra Test Ultra Test 5-02 [place] test blood [facility] - Strips Strips 00:00: glucose Memori a 00 l [facility] ent Clinics sertraline Yes 1{tbl} QD Take 1 Met hodi (ZOLOFT) 3-[address] 100 MG 00:00: mouth Hospita tablet 00 daily. l Blood Blood 2017-08 Yes Bryant as [facility] Glucose Glucose 2-21 [place] directed Luke s - Test Strip Test Strip 00:00: (DISPENSE [facility]oria 00 BLOOD TEST l STRIPS OF [facility] RECORD) ent Clinics ARIPiprazol Yes TK 1 T PO U nivers e 10 mg 2-09 QD ity of tablet 00:00: [address] ARIPiprazol 2017-0 Yes TK 1 T PO U nivers e 10 mg 2-09 QD ity of tablet 00:00: [place] 00 Medical Branch ARIPiprazol 2017-0 Yes TK 1 T PO U nivers e 10 mg 2-09 QD ity of tablet 00:00: [place] [facility] Branch ARIPiprazol 2017-0 Yes TK 1 T PO U nivers e 10 mg 2-09 QD ity of tablet 00:00: [place] [facility] Branch ARIPiprazol 2017-0 Yes TK 1 T PO U nivers e 10 mg 2-09 QD ity of tablet 00:00: [place] [facility] ARIPiprazol 2017-0 Yes TK 1 T PO U nivers e 10 mg 2-09 QD ity of tablet 00:00: [place] [facility] ARIPiprazol 2017-0 Yes TK 1 T PO U nivers e 10 mg 2-09 QD ity of tablet 00:00: [place] [facility] ARIPiprazol 2017-0 Yes TK 1 T PO U nivers e 10 mg 2-09 QD ity of tablet 00:00: [place] [facility] ARIPiprazol 2017-0 Yes TK 1 T PO U nivers e 10 mg 2-09 QD ity of tablet 00:00: [place] [facility] ARIPiprazol 2017-0 Yes TK 1 T PO U nivers e 10 mg 2-09 QD ity of tablet 00:00: [place] [facility] ARIPiprazol 2017-0 Yes TK 1 T PO U nivers e 10 mg 2-09 QD ity of tablet 00:00: [place] [facility] ARIPiprazol 2017-0 2021- No TK 1 T PO Univers e 10 mg 2-09 07-28 QD ity of tablet 00:00: 00:00 [place] 00 :00 [facility] triamcinolo 2015-0 Yes [id number] Apply to Univers ne 3-05 area(s) 2 ity of acetonide 00:00: (two) [place] (TRIDER) 00 times Medical 0.1 % cream daily. Branch triamcinolo Yes [id number] Apply to Univers ne 3-05 area(s) 2 ity of acetonide 00:00: (two) [place] (TRIDER) 00 times Medical 0.1 % cream daily. Branch triamcinolo 2015-0 Yes [id number] Apply to [facility] ne 3-05 area(s) 2 ity of acetonide 00:00: (two) [place] (TRIDERM) 00 times Medical 0.1 % cream daily. Branch triamcinbryson 2014- Yes [id number] Apply to Univers ne 3-05 area(s) 2 ity of acetonide 00:00: (two) [place] (TRIDERM) 00 times Medical 0.1 % cream daily. Branch triamcinbryson 2014- Yes [id number] Apply to Univers ne 3-05 area(s) 2 ity of acetonide 00:00: (two) [place] (TRIDERM) 00 times Medical 0.1 % cream daily. Branch triamcinolo Yes [id number] Apply to [facility] ne 3-05 area(s) 2 ity of acetonide 00:00: (two) [place] (TRIDERM) 00 times Medical 0.1 % cream daily. Branch triamcinbryson Yes [id number] Apply to [facility] ne 3-05 area(s) 2 ity of acetonide 00:00: (two) [place] (TRIDERM) 00 times Medical 0.1 % cream daily. Branch triamcinbryson Yes [id number] Apply to [facility] ne 3-05 area(s) 2 ity of acetonide 00:00: (two) [place] (TRIDERM) 00 times Medical 0.1 % cream daily. Branch triamcinbryson Yes [id number] Apply to [facility] ne 3-05 area(s) 2 ity of acetonide 00:00: (two) [place] (TRIDERM) 00 times Medical 0.1 % cream daily. Branch triamcinbryson Yes [id number] Apply to [facility] ne 3-05 area(s) 2 ity of acetonide 00:00: (two) [place] (TRIDERM) 00 times Medical 0.1 % cream daily. Branch triamcinbryson 2014- Yes [id number] Apply to [facility] ne 3-05 area(s) 2 ity of acetonide 00:00: (two) [place] (TRIDERM) 00 times Medical 0.1 % cream daily. Victor Manuel triamcinbryson 2014-2020- No [id number] Apply to [facility] ne 3-05 07-28 area(s) 2 ity of acetonide 00:00: 00:00 (two) [place] (TRIDERM) 00 :00 times Medical 0.1 % cream daily. Branch [id number] Yes [place] as C [facility] directed [facility] Clinics Aripiprazol Aripiprazol Yes [place] [address] e e [facility] Levemir Levemir Yes [place] [address] FlexTouch FlexTouch [facility]ics Atorvastati Atorvastati Yes [place] [address] n Calcium n Calcium Lo[facility]ics Gemfibrozil Gemfibrozil Yes [place] [address] [facility]ics Baclofen Baclofen Yes Bryant [...] HI [facility] Immunizations Ordered Filled Immunization Date Status Comments [facility] e Immunization Name Name Pneumococcal 2011-08-31 Completed University o f Polysaccharide, 00:00:00 [place] Med ical PPSV23 (PNEUMOVAX) Branch Pneumococcal 2011-08-31 Completed University o f Polysaccharide, 00:00:00 [place] Med ical PPSV23 (PNEUMOVAX) Branch Pneumococcal 2011-08-31 Completed University o f Polysaccharide, 00:00:00 [place] Med ical PPSV23 (PNEUMOVAX) Branch Pneumococcal 2011-08-31 Completed University o f Polysaccharide, 00:00:00 [place] Med ical PPSV23 (PNEUMOVAX) Branch Pneumococcal 2011-08-31 Completed University o f Polysaccharide, 00:00:00 [place] Med ical PPSV23 (PNEUMOVAX) Branch Pneumococcal 2011-08-31 Completed University o f Polysaccharide, 00:00:00 [place] Med ical PPSV23 (PNEUMOVAX) Branch Pneumococcal 2011-08-31 Completed University o f Polysaccharide, 00:00:00 [place] Med ical PPSV23 (PNEUMOVAX) Branch Pneumococcal 2011-08-31 Completed University o f Polysaccharide, 00:00:00 [place] Med ical PPSV23 (PNEUMOVAX) Branch Pneumococcal 2011-08-31 Completed University o f Polysaccharide, 00:00:00 [place] Med ical PPSV23 (PNEUMOVAX) Branch Pneumococcal 2011-08-31 Completed University o f Polysaccharide, 00:00:00 [place] Med ical PPSV23 (PNEUMOVAX) Branch Pneumococcal 2011-08-31 Completed University o f Polysaccharide, 00:00:00 [place] Med ical PPSV23 (PNEUMOVAX) Branch Pneumococcal 2011-08-31 Completed University o f Polysaccharide, 00:00:00 [place] Med ical PPSV23 (PNEUMOVAX) Branch Pneumococcal 2011-08-31 Completed University o f Polysaccharide, 00:00:00 [place] Med ical PPSV23 (PNEUMOVAX) Branch Pneumococcal 2011-08-31 Completed University o f Polysaccharide, 00:00:00 [place] Med ical PPSV23 (PNEUMOVAX) Branch Pneumococcal 2011-08-31 Completed University o f Polysaccharide, 00:00:00 [place] Med ical PPSV23 (PNEUMOVAX) Branch Pneumococcal 2011-08-31 Completed University o f Polysaccharide, 00:00:00 [place] Med ical PPSV23 (PNEUMOVAX) Branch Pneumococcal 2011-08-31 Completed [place] o f Polysaccharide, 00:00:00 [facility] ical PPSV23 (PNEUMOVAX) Branch Pneumococcal 2011-08-31 Completed [place] o f Polysaccharide, 00:00:00 [facility] ical PPSV23 (PNEUMOVAX) Branch Vital Signs Vital Name Observation Time Observation Value Comments Source Systolic blood 2021-09-10 19:49:00 116 mm[Hg] [facility] Medicine Diastolic blood 2021-09-10 19:49:00 76 mm[Hg] [facility] Medicine Heart rate 2021-09-10 19:49:00 65 /min [facility] Body temperature 2021-09-10 19:49:00 37 Mitzi [facility] Respiratory rate 2021-09-10 19:49:00 16 /min [facility] Body height 2021-09-10 19:49:00 160 cm [facility] Body weight 2021-09-10 19:49:00 65.772 kg [facility] BMI 2021-09-10 19:49:00 25.69 kg/m2 [facility] Systolic blood 2021-04-01 05:00:00 127 mm[Hg] [facility]iver [facility] Diastolic blood 2021-04-01 05:00:00 60 mm[facility]Hg[facility] 2021-04-01 05:00:00 62 /min [facility] Respiratory rate 2021-04-01 05:00:00 17 /min Univ [facility] Oxygen saturation in 2021-04-01 05:00:00 98 /min [facility] Arterial blood by [facility] Pulse oximetry Branch Body temperature 2021-04-01 04:00:00 36.72 [facility] weight 2021-04-01 00:54:00 63.504 kg [facility] BMI 2021-04-01 00:54:00 23.30 kg/m2 [facility] Systolic blood 2021-02-26 20:30:00 120 mm[Hg] Univer [facility] Diastolic blood 2021-02-26 20:30:00 76 mm[Hg] Unive rsity of pressure [place] [facility] Heart rate 2021-02-26 20:30:00 81 /min [facility] [place] [facility] Body temperature 2021-02-26 20:30:00 36.56 Mitzi Univ ers[facility] [place] [facility] Respiratory rate 2021-02-26 20:30:00 18 /min Univ ers[facility] [place] [facility] Oxygen saturation in 2021-02-26 20:30:00 98 /min University of Arterial blood by [facility] Pulse oximetry Branch Body height 2021-02-21 10:48:00 165.1 cm [facility]i [facility] [place] [facility] Body weight 2021-02-21 10:48:00 63.504 kg [facility]i [facility] [place] [facility] BMI 2021-02-21 10:48:00 23.30 kg/m2 Universi ty of [facility] Branch Systolic blood 2021-02-14 15:12:00 144 mm[Hg] Univer sity of pressure [place] [facility] Diastolic blood 2021-02-14 15:12:00 76 mm[Hg] Unive rsity of pressure [place] [facility] Heart rate 2021-02-14 15:12:00 60 /min [facility]i ty [facility] [place] [facility] Body temperature 2021-02-14 15:12:00 36.67 Mitzi Univ ersity [facility] [place] [facility] Body height 2021-02-14 15:12:00 162.6 cm Universi ty of [facility] Branch Oxygen saturation in 2021-02-14 15:12:00 98 /min University of Arterial blood by [facility] Pulse oximetry Branch Systolic blood 2019-02-23 20:43:00 146 mm[Hg] Univer sity of pressure [place] [facility] Diastolic blood 2019-02-23 20:43:00 86 mm[Hg] Unive rsity of pressure [place] [facility] Heart rate 2019-02-23 20:43:00 66 /min [facility]i [facility] [place] [facility] Body temperature 2019-02-23 20:43:00 36.61 Mitzi Univ ers[facility] [place] [facility] Respiratory rate 2019-02-23 20:43:00 12 /min Univ ers[facility] [place] [facility] Body height 2019-02-23 20:43:00 162.6 cm [facility]i [facility] [place] [facility] Body weight 2019-02-23 20:43:00 67.45 kg [facility]i [facility] [place] [facility] [place] BMI 2019-02-23 20:43:00 25.52 kg/m2 [facility] [place] [facility] [place] Oxygen saturation in 2019-02-23 20:43:00 97 /min University of Arterial blood by [facility] Pulse oximetry Branch Systolic blood 2019-02-23 20:43:00 146 mm[Hg] Univer sity of pressure [facility] Diastolic blood 2019-02-23 20:43:00 86 mm[facility]Hg] [facility] Heart rate 2019-02-23 20:43:00 66 /min Universi ty of [facility] Body temperature 2019-02-23 20:43:00 36.61 Mitzi [facility] Respiratory rate 2019-02-23 20:43:00 12 /min [facility] Body height 2019-02-23 20:43:00 162.6 cm Universi ty of [facility] Body weight 2019-02-23 20:43:00 67.45 kg Universi ty [facility] [place] [facility] BMI 2019-02-23 20:43:00 25.52 kg/m2 Universi ty [facility] [place] [facility] Oxygen saturation in 2019-02-23 20:43:00 97 /min University of Arterial blood by [facility] Pulse oximetry Branch Procedures Procedure Date / Time Performing Clinician Source Performed BLOOD CULTURE SCREEN 2021-04-01 02:34:00 Laz Lock [facility] CT HEAD WO CONTRAST 2021-04-01 02:07:16 Laz Lock [facility] URINALYSIS 2021-04-01 01:55:[address] [facility] COVID-19 (ID NOW RAPID 2021-04-01 01:45:00 [facility] CBC WITH DIFF 2021-04-01 01:41:[address] [facility] PROTHROMBIN TIME / INR 2021-04-01 01:41:00 [facility] ACTIVATED PARTIAL 2021-04-01 01:41:00 Laz Lock [facility] BLOOD CULTURE SCREEN 2021-04-01 01:38:00 Laz Lock [facility] LIPASE 2021-04-01 01:38:00 Laz Lock [facility] TROPONIN I 2021-04-01 01:38:00 Laz Lock [facility] COMP. METABOLIC PANEL 2021-04-01 01:38:00 Laz Lock [facility] ([id number]) [facility] N-TERMINAL PRO-BNP 2021-04-01 01:38:00 [facility] AC PANEL 21 + LACTIC 2021-04-01 01:37:00 Laz Lock [facility] ACID [facility] NOTICE OF PRIVACY 2021-04-01 00:48:38 Doctor Unassigned, No [facility] PRACTICES Name [facility] CONSENT/REFUSAL FOR 2021-04-01 00:46:04 Doctor Unassigned, No [facility] DIAGNOSIS AND TREATMENT Name [facility] REFERRAL- 2021-03-21 05:01:00 Doctor Unassigned, No [facility] REQUEST/RESPONSE Name [facility] POCT GLUCOSE (AUTOMATED) 2021-02-26 22:10:00 Etta Mckeon Un iversity [facility] POCT GLUCOSE (AUTOMATED) 2021-02-26 17:16:00 Etta Mckeon Un iversity [facility] POCT GLUCOSE (AUTOMATED) 2021-02-26 13:42:00 [facility] BASIC METABOLIC PANEL 2021-02-26 10:38:00 [facility] (NA, K, CL, CO2, Medical Branch GLUCOSE, BUN, CREATININE, CA) CBC WITH DIFF 2021-02-26 10:38:00 Lillie Wilkins [facility] POCT GLUCOSE (AUTOMATED) 2021-02-26 02:23:00 Etta Mckeon Un iversity of [facility] POCT GLUCOSE (AUTOMATED) 2021-02-25 21:53:00 Etta Mckeon Un iversity [facility] POCT GLUCOSE (AUTOMATED) 2021-02-25 16:05:00 Etta Mckeon Un iversity of [facility] POCT GLUCOSE (AUTOMATED) 2021-02-25 12:38:00 Etta Mckeon Un iversity of [facility] BASIC METABOLIC PANEL 2021-02-25 08:09:00 Sarah Ricketts [facility] (NA, K, CL, CO2, Medical Branch GLUCOSE, BUN, CREATININE, CA) CBC WITH DIFF 2021-02-25 08:09:00 Sarah Ricketts [facility] POCT GLUCOSE (AUTOMATED) 2021-02-25 02:14:00 Etta Mckeon Un iversity of [facility] POCT GLUCOSE (AUTOMATED) 2021-02-24 21:52:00 Etta Mckeon Un iversity of [facility] POCT GLUCOSE (AUTOMATED) 2021-02-24 16:38:00 Etta Mckeon Un iversity of [facility] POCT GLUCOSE (AUTOMATED) 2021-02-24 12:35:00 Etta Mckeon Un iversity of [facility] BASIC METABOLIC PANEL 2021-02-24 08:47:00 Lillie Wilkins [facility] (NA, K, CL, CO2, Medical Branch GLUCOSE, BUN, CREATININE, CA) CBC WITH DIFF 2021-02-24 08:47:00 Lillie Wilkins [place] [facility] GLYCOSYLATED HEMOGLOBIN 2021-02-24 08:47:00 Zane Ricketts i [facility] (A1C) [facility] POCT GLUCOSE (AUTOMATED) 2021-02-24 01:40:00 Etta Mckeon Un iversity of [facility] POCT GLUCOSE (AUTOMATED) 2021-02-23 22:45:00 Etta Mckeon iversity of [facility] POCT GLUCOSE (AUTOMATED) 2021-02-23 16:55:00 Etta Mckeon Un iversity of [facility] POCT GLUCOSE (AUTOMATED) 2021-02-23 14:08:00 Etta Mckeon Un iversity of [facility] BASIC METABOLIC PANEL 2021-02-23 08:46:00 Sarah Ricketts [facility] (NA, K, CL, CO2, Medical Branch GLUCOSE, BUN, CREATININE, CA) CBC WITH DIFF 2021-02-23 08:46:00 Sarah Ricketts [facility] POCT GLUCOSE (AUTOMATED) 2021-02-23 02:23:00 [facility] PO[facility] GLUCOSE (AUTOMATED) 2021-02-22 22:50:00 [facility] POCT GLUCOSE (AUTOMATED) 2021-02-22 17:08:00 Etta Mckeon Un [facility] BASIC METABOLIC PANEL 2021-02-22 09:31:00 [facility] (NA, K, CL, CO2, Medical Branch GLUCOSE, BUN, CREATININE, CA) CBC WITH DIFF 2021-02-22 09:31:00 Sarah Ricketts [facility] POCT GLUCOSE (AUTOMATED) 2021-02-22 01:56:00 Etta [facility]keon [facility] POCT GLUCOSE (AUTOMATED) 2021-02-21 21:28:00 [facility] POCT GLUCOSE (AUTOMATED) 2021-02-21 17:19:00 Wiggins [facility] POCT GLUCOSE (AUTOMATED) 2021-02-21 14:48:00 Jaclyn Wiggins [facility] PHOSPHORUS 2021-02-21 11:17:00 Joseph [facility] MAGNESIUM 2021-02-21 11:17:00 Joseph [facility] HEPATIC FUNCTION PANEL 2021-02-21 11:17:00 [id number] (ALB,T.PRO,BILI [facility] T,BU/BC,ALT,AST,ALK PHOS) BASIC METABOLIC PANEL 2021-02-21 11:17:00 [facility] ([facility], K, CL, CO2, Medical Branch GLUCOSE, BUN, CREATININE, CA) CBC WITH DIFF 2021-02-21 11:17:00 Joseph [facility] PROTHROMBIN TIME / INR 2021-02-21 11:17:00 Gene Ruiz [facility] ACTIVATED PARTIAL 2021-02-21 11:17:00 Gene Ruiz [facility] THRMPLAS RADHA [facility] LACTIC ACID WHOLE BLOOD 2021-02-21 11:17:00 Gene Ruiz [facility] CHEST 1 VW 2021-02-21 02:52:40 Elsa Landry [facility] CT ABDOMEN PELVIS W 2021-02-21 02:39:56 Elsa Landry [facility] CONTRAST [facility] URINALYSIS 2021-02-21 01:08:00 [facility] URINE CULTURE 2021-02-21 01:08:00 Joseph [facility] HB ECG ROUTINE & RHYTHM 2021-02-21 01:01:32 Elsa Landry [facility] STRIP [facility] BLOOD CULTURE SCREEN 2021-02-21 00:58:00 Shefali Ruiz [facility] LIP[facility] 2021-02-21 00:58:00 Joseph [facility] TROPONIN I 2021-02-21 00:58:00 Joseph [facility] HEPATIC FUNCTION PANEL 2021-02-21 00:58:00 Joseph [facility] ([id number]) (ALB,T.PRO,BILI [facility] T,BU/BC,ALT,AST,ALK PHOS) COMP. METABOLIC PANEL 2021-02-21 00:58:00 Joseph Shefali [facility] ([id number]) [facility] CBC WITH DIFF 2021-02-21 00:58:00 Joseph [facility] COVID-19 (ID NOW RAPID 2021-02-21 00:58:00 Ruiz, [facility] TESTING) [facility] LACTIC ACID WHOLE BLOOD 2021-02-21 00:57:00 Shefali Ruiz [facility] acute hospital NOTICE OF PRIVACY 2021-02-21 00:23:04 Doctor Unassigned, No [facility] PRACTICES Name Medical Branch PATIENT QUESTIONNAIRE 2021-02-14 05:01:00 Doctor Unassigned, No [facility] CT CHEST WO CONTRAST 2020-11-07 18:49:00 Arvind [facility] XR CHEST 2 VW 2019-02-23 22:21:03 Enoch Cabrera [facility] Plan of Care Planned Activity Planned Date Details Comments Source Future Scheduled 2021-09-10 COMPLETE PFT WITHOUT 1 Occurrences [employer] Test 14:22:58 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 [code starting of Medi cine = 05091] 09/10/2021 until 09/10/2022 Future Scheduled 2021-09-10 CT CHEST HIGH 1 Occurrences [facility] [employer] Test 14:14:59 RESOLUTION WO starting of Medicine CONTRAST [code = 09/10/2021 until 15461-5] 09/10/2022 Future Scheduled 2021-09-10 Screening for [facility] [employer] Test 14:00:29 malignant neoplasm of of Med icine colon (procedure) [code = 843540007] Future Scheduled 2021-09-10 COVID-19 Vaccine (1) [employer] [facility] 14:00:29 [code = COVID-19 of Medicine Vaccine (1)] Future Scheduled 2021-09-10 TETANUS SHOT (ADULT) [employer] Test 14:00:29 [code = TETANUS SHOT of Medi cine (ADULT)] Future Scheduled 2021-09-10 Hepatitis C screening [employer] Test 14:00:29 (procedure) [code = of Medic ine [id number]] Future Scheduled 2021-09-10 ZOSTER VACCINE (1 of [employer] Test 14:00:29 2) [code = ZOSTER of Medicin e VACCINE (1 of 2)] Future Scheduled 2021-09-10 FLU VACCINE > 6 [facility] [employer] Test 14:00:29 MONTHS [code = FLU of Medici ne VACCINE > 6 MONTHS] Future Scheduled 2021-09-10 FALL SCREEN [code = [employer] [facility] 14:00:29 FALL SCREEN] of Medicine Future Scheduled 2021-09-10 Pneumococcal 65+ (1 [employer] Test 14:00:29 of 1 - PPSV23) [code of Medi cine = Pneumococcal 65+ (1 of 1 - PPSV23)] Future Scheduled 2021-09-10 MEDICARE AWV [facility] Alyssa ege Test 14:00:29 (Initial) [code = of Medicin e MEDICARE AWV (Initial)] Future Scheduled DIABETES: RETINAL EYE [facility] EXAM [code = Hospital DIABETES: RETINAL EYE EXAM] Future Scheduled DIABETIC FOOT EXAM [facility] [code = DIABETIC FOOT Hospit al EXAM] Future Scheduled URINE MICROALBUMIN [facility] [code = URINE Hospital MICROALBUMIN] Future Scheduled COVID-19 VACCINE (1) [facility] [code = COVID-19 Hospital VACCINE (1)] Future Scheduled Hepatitis C screening [facility] (procedure) [code = Hospital [id number]] Future Scheduled COLONOSCOPY SCREENING [facility] [code = COLONOSCOPY Hospital SCREENING] Future Scheduled SHINGLES VACCINES [facility] (#1) [code = SHINGLES Hospit al VACCINES (#1)] Future Scheduled INFLUENZA VACCINE [facility] [code = INFLUENZA Hospital VACCINE] Encounters Start End Encounter Admission Attending Care Care Encounter Source Date/Time Date/Time Type Type Clinicians Facility Department ID 2021-08-27 Outpatient Loera, [facility] 14:24:19 Bryant [id number] [facility] 2021-08-27 Outpatient Loera, [facility] 14:23:28 Bryant [id number] [facility] 2021-08-27 Outpatient Loera, [facility] 13:11:30 Bryant [id number] [facility] 2021-08-27 Outpatient Loera, [facility] 12:58:11 Bryant [id number] [facility] 2021-08-27 Outpatient Loera, [facility] 12:50:45 Bryant [id number] [facility] 2021-08-27 Outpatient Loera, [facility] 12:33:09 Bryant [id number] [facility] 2021-08-27 Outpatient Loera, [facility] 11:21:28 Bryant [id number] [facility] 2021-08-27 Outpatient Loera, [facility] [id number] 11:14:28 Bryant [id number] [facility] 2021-08-27 Outpatient Loera, [facility]LMLC [facility] [id number] 11:07:10 Bryant [id number] [facility] 2021-08-27 Outpatient Loera, [facility] [id number] 11:01:07 Bryant [id number] [facility] 2021-08-27 Outpatient Loera, [facility]LMLC [facility] [id number] 11:00:53 Bryant [id number] [facility] 2021-08-27 Outpatient Loera, [facility]LMLC [facility] [id number] 10:58:57 Bryant [id number] [facility] 2021-06-02 Emergency [facility] [id number] Univers 19:11:59 ity [facility] 2021-06-02 Emergency [facility] [id number] Univers 10:12:20 ity [facility] 2021-06-02 Emergency [facility] [id number] Univers 00:43:37 ity [facility] 2019-10-02 Inpatient Rajinder [facility] SILAS [id number] [facility] 08:00:00 Trever [facility] 2019-09-19 Inpatient MIHIR Calvillo [facility] RADI [id number] [facility] 11:00:00 Trever [id number] [facility] 2021-09-10 2021-09-10 Office LALITO, [facility] [id number] [facility] 13:40:43 14:43:07 Visit DIPABEN AMBULATOR [id number] College Y 0.2.7.2.686 [id number] [facility] 315 e 2021-07-14 2021-07-14 ambulatory [facility] [id number] [facility] 2021-07-08 2021-07-08 ambulatory [facility]MLC [facility] [id number] [facility] 2021-07-03 2021-07-03 [id number] Univers 10:00:00 10:00:00 SAWYER [id number] [facility] 2021-07-03 2021-07-03 Outpatient Kat[facility] [id number] Univers 10:00:00 10:00:00 SAWYER [facility] 2021-06-11 2021-06-11 [facility] 1.2.840.114 [id number] Univers 00:00:00 00:00:00 [facility] [id number] it y of CANCER 4.2.7.2.686 [facility] [id number] [address] 2021-05-15 2021-05-15 Outpatient [facility] [id number] [facility] St 00:00:00 00:00:00 [facility] 2021-05-09 2021-05-09 [facility] 1.2.840.[id number] [place] [address] 00:00:00 00:00:00 [place] [id number] it y of Cancer 4.2.7.2.686 [facility] [phone] [address] 2021-04-16 2021-04-16 Outpatient [facility] [id number] [facility] 2021-04-14 2021-04-14 Outpatient [facility] [id number] [facility] 2021-04-14 2021-04-14 Outpatient [facility] [id number] [facility] 2021-04-14 2021-04-14 Outpatient [facility] [id number] [facility] 2021-04-11 2021-04-11 Outpatient [facility] [id number] [facility] 2021-04-04 2021-04-04 [facility] [id number] Univers 10:30:00 10:30:00 [facility] [id number] [facility] 2021-04-04 2021-04-04 [facility] [id number] Univers 10:30:00 10:30:00 NANCI [facility] 2021-03-31 2021-04-01 Emergency [facility] [id number] Univers 19:55:00 01:41:00 Laz Sullivan [id number] i ty [facility] 4.2.7.2.686 [facility] [id number] [facility] 084 Branch 2021-03-21 2021-03-21 [facility] [id number] [facility] 2021-03-21 2021-03-21 Orders Doctor MILTON [id number] [id number] Univers 00:00:00 00:00:00 Only Unassigned, MICHAEL 350.1.13.10 ity of [facility] 4.2.7.2.686 [facility] [id number] [facility] 009 Branch 2021-03-20 2021-03-20 [facility] [id number] [facility]00 [facility] 2021-03-07 2021-03-07 Outpatient [facility] [id number] [facility]00 [facility] 2021-03-07 2021-03-07 Outpatient [facility] [id number] [facility]00 [facility] 2021-02-28 2021-02-28 Outpatient Katy JETER [facility] [id number] Univers 10:30:00 10:30:00 BETTYE [id number] ity [facility] 2021-02-28 2021-02-28 Outpatient Katy JETER [facility] [id number] Univers 00:00:00 00:00:00 BETTYE [facility] 2021-02-27 2021-02-27 Outpatient [facility] [id number] [facility]00 [facility] 2021-02-27 2021-02-27 Outpatient [facility] [id number] [facility]00 [facility] 2021-02-27 2021-02-27 Transition Maria L Montanez 1.2.840.114 [id number] Univers 00:00:00 00:00:00 of Care Niya Tobar [id number] it y of [place] 4.2.7.2.686 [facility] [phone] [place] [address] Branch 2021-02-20 2021-02-26 [facility] 1.2.840. 114 [id number] Univers 19:39:00 18:25:00 Encounter Jaclyn Wiggins [id number] ity [facility] 4.2.7.2.686 Angel Camacho [id number] [place] [address] Branch 2021-02-24 2021-02-24 Outpatient [facility] [id number] [facility]00 [facility] 2021-02-19 2021-02-19 Outpatient [facility] [id number] [facility]00 [facility] 2021-02-17 2021-02-17 Outpatient [facility] [id number] [facility]00 [facility] 2021-02-14 2021-02-[address] [facility] 1.2.840.114 [id number] Univers 10:04:09 11:24:24 Visit Bettye SPECIALTY [id number] ity of [place] [facility] 4.2.7.2.686 [place] [phone] Ms reina FUENTES 072 [facility] 2021-02-14 2021-02-14 [facility] [id number] Univers 10:00:00 10:00:00 BETTYE [id number] ity [facility] 2021-02-14 2021-02-14 Outpatient R CORONA [facility] [id number] Univers 10:00:00 10:00:00 BETTYE ity [facility] 2021-02-14 2021-02-14 Orders Doctor MILTON 1.2.840.114 [id number] Univers 00:00:00 00:00:00 Only Unassigned, MICHAEL 350.1.13.10 ity of [place] [facility] 4.2.7.2.686 Dante as [id number] [facility] 009 Branch 2021-02-10 2021-02-10 Outpatient R [facility] [id number] Univers 14:00:00 14:00:00 [id number] ity [facility] 2021-02-10 2021-02-10 Outpatient R [facility] [id number] Univers 14:00:00 14:00:00 ity [facility] 2021-01-20 2021-01-20 Transition Maria L Montanez 1.2.840.114 [id number] Univers 00:00:00 00:00:00 of Care Niya Tobar 350.1.13.10 it [place] of [place]2.7.2.686 [place] [id number] [facility] 403 Branch 2021-01-01 2021-01-01 Outpatient [facility] [id number] [facility] 2020-12-23 2020-12-23 Outpatient [facility] [id number] [facility]00 [facility] 2020-12-02 2020-12-02 Outpatient [facility] [id number] [facility]00 [facility] 2020-11-07 2020-11-07 [facility], 1.2.840.1 [id number] [id number] Methodi 13:30:00 23:59:00 Encounter Arvind 60339.1.[address] [place] 3.430.2.7 Hospit a .3.600366 l .8 2020-11-07 2020-11-07 Travel 1.2.840.1 [id number] [id number] Methodi 00:00:00 00:00:[address] 3.430.2.7 0.2.7.3.698 Ho spita .3.407337 084.8 l .8 2020-10-18 2020-10-18 Travel 1.2.840.1 1.2.724.138 [id number] Methodi 00:00:00 00:00:[address] 3.430.2.7 0.2.7.3.698 Ho spita .3.289095 084.8 l .8 2020-10-15 2020-10-15 Outpatient [facility] [id number] [facility]00 [facility] 2020-10-15 2020-10-15 [facility], 1.2.840.1 [id number] Methodi 00:00:00 00:00:00 Orders Arvind 28014.1.[address] 3.430.2.7 Hospit a .3.759940 l .8 2020-09-25 2020-09-25 Outpatient [facility] [id number] [facility]00 [facility] 2020-09-23 2020-09-23 Outpatient [facility] [id number] [facility] 2020-08-23 2020-08-23 Outpatient [facility] [id number] [facility] 2020-08-20 2020-08-20 Outpatient [facility] [id number] [facility]00 [facility] 2020-08-14 2020-08-14 Outpatient [facility] [id number] [facility] 2020-08-12 2020-08-12 Outpatient [facility] [id number] [facility] 2020-08-09 2020-08-09 Outpatient [facility] [id number] [facility]00 [facility] 2020-03-22 2020-03-22 [facility] [id number] 08:45:00 08:45:00 [place] [employer] [place] - [facility] l Medicine Outpati ent Clinics 2020-03-08 2020-03-08 [facility] [id number] 10:26:00 10:26:00 [place] s - Drive [facility] l Medicine Outpati ent Clinics 2020-03-05 2020-03-05 [facility] [id number] 16:14:00 16:14:00 [place] [employer] [place] - [facility] l Medicine Outpati ent Clinics 2020-03-01 2020-03-01 [facility] [id number] 10:00:00 10:00:00 [place] [employer] [place] - [facility] Medicine l Medicine Outpati ent Clinics 2020-03-01 2020-03-01 [facility] [id number] 10:00:00 10:00:00 [place] [address] [place] - Drive [facility] Medicine l Medicine Outpati ent Clinics 2020-01-10 2020-01-10 [facility] [id number] 13:52:00 13:52:00 t Specialty/U Jessica kes - Specialty rology Memori a /Urology Clinic l Clinic Outpati ent Clinics 2019-12-28 2019-12-28 [facility] [id number] 13:15:00 13:15:00 t Specialty/U Jessica kes - Specialty rology Memori a /Urology Clinic l Clinic Outpati ent Clinics 2019-11-16 2019-11-16 [facility] [id number] 15:00:00 15:00:00 t Specialty/U Jessica kes - Specialty rology Memori a /Urology Clinic l Clinic Outpati ent Clinics 2019-10-20 2019-10-20 [facility] [id number] 10:09:00 10:09:00 t Specialty/U Jessica kes - Specialty rology Memori a /Urology Clinic l Clinic Outpati ent Clinics 2019-10-18 2019-10-18 [facility] [id number] 08:30:00 08:30:00 t Specialty/U Jessica kes - Specialty rology Memori a /Urology Clinic l Clinic Outpati ent Clinics 2019-10-17 2019-10-17 [facility] [id number] 15:00:00 15:00:00 t [employer] [facility] Outpati ent Clinics 2019-10-13 2019-10-13 [facility] [id number] 15:13:00 15:13:00 t [employer] [facility] Outpati ent Clinics 2019-10-02 2019-10-02 Outpatient YOKO Calvillo OUTD [id number] [facility] 23:54:[facility] 23:54:00 Trever [facility] 2019-09-18 2019-09-18 Outpatient ARMANDO Calvillo RADI [id number] [facility] 09:00:00 09:00:00 Trever [id number] [facility] 2019-09-15 2019-09-15 [facility] [id number] 09:00:00 09:00:00 t [employer] [facility] Outpati ent Clinics 2019-08-10 2019-08-10 [facility] [id number] 11:32:00 11:32:00 [place] [address] [place] - Drive [facility] Medicine l Medicine Outpati ent Clinics 2019-07-17 2019-07-17 [facility] [id number] 16:43:00 16:43:00 [place] [address] [place] - Drive [facility] Medicine l Medicine Outpati ent Clinics 2019-06-21 2019-06-21 [facility] [id number] 11:12:00 11:12:00 t [place] [address] [place] - Drive [facility] Medicine l Medicine Outpati ent Clinics 2019-06-19 2019-06-19 Outpatient [facility] [id number] 14:00:00 14:00:00 [place] [employer] [place] - [address] [facility] Medicine l Medicine Outpati ent Clinics 2019-06-12 2019-06-12 [facility] [id number] [address] 15:55:00 15:55:00 [place] [employer] [place] [employer] [place] - Drive [facility] Medicine l Medicine Outpati ent Clinics 2019-06-01 2019-06-01 [facility] [id number] 13:44:00 13:44:00 [place] [employer] [place] - Drive [facility] Medicine l Medicine Outpati ent Clinics 2019-05-24 2019-05-24 [facility] [id number] 13:44:00 13:44:00 [place] [employer] [place] - Drive [facility] Medicine Medicine Outpati ent Clinics 2019-05-18 2019-05-18 [facility] [id number] 10:50:00 10:50:00 [place] - Drive [facility] Medicine Medicine Outpati ent Clinics 2019-05-01 2019-05-01 [facility] [id number] 15:00:00 15:00:00 [place] [address] [place] - Drive [facility] Medicine l Medicine Outpati ent Clinics 2019-04-14 2019-04-14 [facility] [id number] 16:09:00 16:09:00 [facility] Medicine Medicine Outpati ent [facility] 2019-03-08 2019-03-08 [facility]114 [id number] Univers 00:00:00 00:00:00 Tara, Karina HEALTH 350.1.13.10 i [id number] 2532[address] [place] 2019-03-08 2019-03-08 Telephone [facility]ERSIT 1.2.840.114 [id number] 00:00:00 00:00:00 Tara, Y HEALTH 350.1.13.10 [place] [facility] 4.2.7.2.686 [id number] [facility] 2019-03-07 2019-03-07 Case Jalen, [facility] [id number] Univers 00:00:00 00:00:00 Management Madelyn Y HEALTH 350.1.13.10 [id number] [place] 253294 [place] 2019-03-07 2019-03-07 [facility] Jalen, [facility] [id number] 00:00:00 00:00:00 Management Madelyn Y HEALTH 350.1.13.10 [place] [facility] 4.2.7.2.686 [id number] [facility] 2019-03-01 2019-03-01 [facility] [id number] 13:52:00 13:52:00 [facility] Medicine Medicine Outpati ent [facility] 2019-02-23 2019-02-23 [facility] 1.2.840.114 [id number] [facility] 16:56:13 23:59:00 Encounter Madelyn Y HEALTH 350.1.13.10 [place] [id number] [facility] 8[address] Branch 2019-02-23 2019-02-23 [facility] 1.[facility].840.114 [id number] 16:56:13 23:59:00 Encounter Madelyn Y HEALTH 350.1.13.10 [place] CL[facility]ICS 4.2.7.2.686 [id number] 2019-02-23 2019-02-23 Office ClyedEnoch Leiva [facility] 1.2 .840.114 [id number] [facility] 15:34:50 18:38:56 Visit Madelyn Rao HEALTH 350.1. 13.10 it[place] [id number] [facility] 0[address] Branch 2019-02-23 2019-02-23 Office [facility] [id number] 15:34:50 18:38:56 Visit Karina Pacheco 350.1.13.10 [facility] 4.2.7.2.686 [id number] 084 2019-02-23 2019-02-[address] [facility] 1.2.840.114 [id number] [facility] 16:32:11 16:43:54 Visit Madelyn Rao [facility] 350.1. 13.10 ity [place] [id number] [facility] [address] Branch 2018-12-01 2018-12-01 [facility] [id number] 10:52:00 10:52:00 [employer] [facility] Medicine Outpati ent Clinics 2018-11-29 2018-11-29 [facility] [id number] 14:45:00 14:45:00 [facility] Medicine l Medicine Outpati ent Clinics 2018-09-28 2018-09-28 [facility] [id number] 10:43:00 10:43:00 [facility] Medicine l Medicine Outpati ent Clinics 2018-08-16 2018-08-16 [facility] [id number] [address] 12:06:00 12:06:00 [facility] Medicine l Medicine Outpati ent Clinics 2018-07-25 2018-07-25 [facility] [id number] 10:56:00 10:56:00 t [facility] Medicine Outpati ent Clinics 2018-07-22 2018-07-22 [facility] [id number] 01:11:00 01:11:00 t [facility] Medicine Outpati ent Clinics 2018-07-20 2018-07-20 [facility] [id number] 13:00:00 13:00:00 t [facility] Medicine Outpati ent Clinics 2018-07-19 2018-07-19 [facility] [id number] 14:38:00 14:38:00 t [facility] Medicine Outpati ent Clinics 2018-07-15 2018-07-15 [facility] [id number] 16:01:00 16:01:00 t [facility] Medicine Outpati ent Clinics 2018-07-14 2018-07-14 [facility] [id number] 15:35:00 15:35:00 t [facility] Medicine Outpati ent Clinics 2018-04-21 2018-04-21 [facility] [id number] 09:04:00 09:04:00 t [facility] Medicine Outpati ent Clinics 2018-04-20 2018-04-20 [facility] [id number] 22:17:00 22:17:00 t [facility] Medicine Outpati ent Clinics 2018-04-20 2018-04-20 [facility] [id number] 14:30:00 14:30:00 t [facility] Medicine Outpati ent Clinics Results Test Description Test Time Test Comments Results Result Comments Source URINALYSIS 2021-04-01 03:04:09 Test Item Value Reference Range Interpretation Comme nts APPEARANCE (test code = Clear Clear 8293590113) COLOR (test code = 5946870142) Yellow Yellow PH (test code = 6349473748) 4.8-8.0 SP GRAVITY (test code = 1.003-1.030 1037015715) GLU U QUAL (test code = Normal Normal 8373541951) BLOOD (test code = 9834923081) Negative Negative Interference from ascorbic acid may cause false negative results. KETONES (test code = Negative Negative 8176544910) PROTEIN (test code = 2887-8) Negative Negative UROBILIN (test code = 2.0 mg/dL Normal A 7667255659) BILIRUBIN (test code = Negative Negative 2821386389) NITRITE (test code = Negative Negative 7861366319) LEUK MIGDALIA (test code = Negative Negative 8198885810) RBC/HPF (test code = See_Comment H [Autom ated message] The 1914539292) system which ge nerated this result transmit elaine reference range: 0 - 3 HP F. The reference range was not used to interpret th is result as normal/abnormal . WBC/HPF (test code = See_Comment [Autom ated message] The 3300880713) system which ge nerated this result transmit elaine reference range: 0 - 5 HP F. The reference range was not used to interpret th is result as normal/abnormal . BACTERIA (test code = Few Negative A 4327754565) MUCOUS (test code = 1613172397) Slight Negative LPF A SQ EPITH (test code = HPF 8437972573) HYAL CAST (test code = See_Comment H [Aut omated message] The 9948763971) system which ge nerated this result transmit elaine reference range: <=2 LPF. The reference range was not u sed to interpret this result as normal/abnormal . GRAN CASTS (test code = See_Comment H [Au tomated message] The 8794594325) system which ge nerated this result transmit elaine reference range: <=1 LPF. The reference range was not u sed to interpret this result as normal/abnormal . Lab Interpretation (test code = Abnormal 71155-1) [facility] Test Item Value Reference Range Interpretation Comments APPEARANCE (test code = Clear Clear 5405144864) COLOR (test code = Yellow Yellow 7281227364) PH (test code = 4.8-8.0 5213076306) SP GRAVITY (test code = 1.003-1.030 0030301646) GLU U QUAL (test code = Normal Normal 6200686960) BLOOD (test code = Negative Negative 6531910579) KETONES (test code = Negative Negative 2198404615) PROTEIN (test code = Negative Negative 2887-8) UROBILIN (test code = 2.0 mg/dL Normal A 8523171341) BILIRUBIN (test code = Negative Negative 4223013837) NITRITE (test code = Negative Negative 1415136075) LEUK MIGDALIA (test code = Negative Negative 2647894900) RBC/HPF (test code = See_Comment H [Autom ated message] 5958968543) The system [employer] generated this result transmit elaine reference range : 0 - 3 HPF. The refe rence range was not u sed to interpret th is result as normal/abnormal . WBC/HPF (test code = See_Comment [Autom ated message] 7050938047) The system [employer] generated this result transmit elaine reference range : 0 - 5 HPF. The refe rence range was not u sed to interpret th is result as normal/abnormal . BACTERIA (test code = Few Negative A 8946884146) MUCOUS (test code = Slight Negative LPF A 6765679393) SQ EPITH (test code = HPF 7061973040) HYAL CAST (test code = See_Comment H [Aut omated message] 1815981894) The system [employer] generated this result transmit elaine reference range : <=2 LPF. The refere nce range was not u sed to interpret th is result as normal/abnormal . GRAN CASTS (test code = See_Comment H [Au tomated message] 9065293660) The system [employer] generated this result transmit elaine reference range : <=1 LPF. The refere nce range was not u sed to interpret th is result as normal/abnormal . Lab Interpretation (test Abnormal code = 23291-5) [facility] [id number] 02:31:36 Test Item Value Reference Interpretation Comments Range TROPONIN I (test 0.003 ng/mL See_Comment [Automated code = 1144413800) message] The system which generated this result transmitted reference range : <=0.034. The reference range was not used to interpret this result as normal/abnormal . ANU (test code = Reference (Normal) ANU) Range (defined by the 99th percentile reference limit): <= 0.034 ng/mL Note: Cardiac troponin begins to rise 3-4 hours after the onset of ischemia. Repeat in 4-6 hours if the sample was drawn within 3-4 hours of the onset of the symptom and found normal. Diagnosis of myocardial injury is made with acute changes in cTn concentrations with at least one serial sample above the 99th percentile upper reference limit (URL), taken together with the patient's clinical presentation. Biotin has been reported to cause a negative bias, interpret results relative to patient's use of biotin. Lab Interpretation Normal (test code = 08789-3) [facility] [id number] 02:31:36 Test Item Value Reference Range Interpretation Comments TROPONIN I (test code = 0.003 ng/mL See_Comment [Au tomated 7539548802) message] The sy stem which generated this result transmitted reference range : <=0.034. The reference range was not used to interpret this result as normal/abnormal . ANU (test code = ANU) Lab Interpretation Normal (test code = 72741-0) [facility] [id number] 02:28:37 Test Item Value Reference Range Interpretation Comments NT-proBNP (test code 231 pg/mL See_Comment H [Autom ated = 0853117921) message] The system which generated this result transmitted reference range : <=125. The reference range was not used to interpret this result as normal/abnormal . ANU (test code = ANU) Biotin has been reported to cause a negative bias, interpret results relative to patient's use of biotin. Lab Interpretation Abnormal (test code = 27292-6) [facility] [id number] 02:28:37 Test Item Value Reference Range Interpretation Comments NT-proBNP (test code = 231 pg/mL See_Comment H [Aut omated message] 0881001633) The system [employer] generated this result transmit elaine reference range : <=125. The refe rence range was not u sed to interpret th is result as normal/abnormal . ANU (test code = ANU) Lab Interpretation (test Abnormal code = 68010-7) [facility] THRM[facility] [id number] 02:26:55 Test Item Value Reference Range Interpretation Comments APTT Patient (test See_Comment [Automat ed code = 3173-2) message] The system which generated this result transmitted reference range : 23 - 38 Seconds . The reference range was not used to interpr et this result as normal/abnormal . ANU (test code = ANU) The [facility] patient population mean normal value for aPTT is 30 seconds. Lab Interpretation Normal (test code = 38702-4) [facility] TH[facility] [id number] 02:26:55 Test Item Value Reference Range Interpretation Comments APTT Patient (test code = See_Comment [ Automated message] 3173-2) The system [employer] generated this result transmitted ref erence range: 23 - 38 Seconds. The re ference range was not u sed to interpret this result as normal/abnor mal. ANU (test code = ANU) Lab Interpretation (test Normal code = 73164-3) [facility] / [id number] 02:24:54 Test Item Value Reference Range Interpretation Comments PROTIME PATIENT (test See_Comment [Auto mated message] code = 5964-2) The system [employer] generated this result transmitted ref erence range: 12.0 - 1 4.7 Seconds. The re ference range was not u sed to interpret this result as normal/abnor mal. INR (test code = 6301-6) Nor mal INR <1.1; Warfarin Therap eutic range 2.0 to 3. 0 or 2.5 to 3.5, dep ending upon the indica tions. Lab Interpretation (test Normal code = 13306-7) [facility] / [id number] 02:24:54 Test Item Value Reference Range Interpretation Comments PROTIME PATIENT (test See_Comment [Auto mated message] code = 5964-2) The system [employer] generated this result transmitted ref erence range: 12.0 - 1 4.7 Seconds. The re ference range was not u sed to interpret this result as normal/abnor mal. INR (test code = 6301-6) Lab Interpretation (test Normal code = 36430-5) [facility] METABOLIC PANEL (23341)2021-04-01 02:20:56 Test Item Value Reference Range Interpretation Comments NA (test code = 139 mmol/L 135-145 0698116248) K (test code = 3.6 mmol/L 3.5-5.0 8555724609) CL (test code = 98 mmol/L 98-108 0748728639) CO2 TOTAL (test code = 29 mmol/L 23-31 2566865255) AGAP (test code = 2-16 7426480285) BUN (test code = 17 mg/dL 7-23 0829980691) GLUCOSE (test code = 241 mg/dL 70-110 H 9510037678) CREATININE (test code = 0.98 mg/dL 0.60-1.25 6466972937) TOTAL BILI (test code = 0.5 mg/dL 0.1-1.9 8310914933) CALCIUM (test code = 9.5 mg/dL 8.6-10.6 5419920667) T PROTEIN (test code = 8.9 g/dL 6.3-8.2 H 5486428180) ALBUMIN (test code = 4.6 g/dL 3.5-5.0 7466131420) ALK PHOS (test code = 124 U/L 34-122 H 6142435935) ALTv (test code = 26 U/L 5-50 1742-6) AST(SGOT) (test code = 39 U/L 13-40 9772897674) eGFR (test code = mL/min/1.73m2 9978693841) ANU (test code = ANU) Association of Glomerular Filtration Rate (GFR) and Staging of Kidney Disease* + --+ --+ ------+| GFR (mL/min/1.73 m2) ?| With Kidney Damage ?| ?Without Kidney Damage+ --------+ --------+ +| ?>90 ?| ?Stage one ?| ? Normal ?+ ---+ ---+ -------+| ?60-89 ?| ?Stage two ?| ? Decreased GFR ? + --+ --+ ------+| ?30-59 ?| ?Stage three ?| ? Stage three ? + --+ --+ ------+| ?15-29 ?| ?Stage four ? | ? Stage four ?+ ---+ ---+ -------+| ?<15 (or dialysis) ? ?| ?Stage five ? | ? Stage five ?+ ---+ ---+ -------+ *Each stage assumes the associated GFR level has been in effect for at least three months. ?Stages 1 to 5, with or without kidney disease, indicate chronic kidney disease. Notes: Determination of stages one and two (with eGFR >59mL/min/1.73 m2) requires estimation of kidney damage for at least three months as defined by structural or functional abnormalities of the kidney, manifested by either:Pathological abnormalities or Markers of kidney damage (including abnormalities in the composition of the blood or urine or abnormalities in imaging tests). Lab Interpretation Abnormal (test code = 33440-2) [facility]. METABOLIC PANEL (88246)2021-04-01 02:20:56 Test Item Value Reference Range Interpretation Comments NA (test code = 2617424759) 139 mmol/L 135-145 K (test code = 4594758657) 3.6 mmol/L 3.5-5.0 CL (test code = 8890819850) 98 mmol/L 98-108 CO2 TOTAL (test code = 5975532131) 29 mmol/L 23-31 AGAP (test code = 5549175092) 2-16 BUN (test code = 4986205586) 17 mg/dL 7-23 GLUCOSE (test code = 1441469493) 241 mg/dL 70-110 H CREATININE (test code = 0.98 mg/dL 0.60-1.25 8132742373) TOTAL BILI (test code = 0.5 mg/dL 0.1-1.4 1327214941) CALCIUM (test code = 8662035817) 9.5 mg/dL 8.6-10.6 T PROTEIN (test code = 6453052284) 8.9 g/dL 6.3-8.2 H ALBUMIN (test code = 0173506400) 4.6 g/dL 3.5-5.0 ALK PHOS (test code = 1397437571) 124 U/L 34-122 H ALTv (test code = 1742-6) 26 U/L 5-50 AST(SGOT) (test code = 5692382124) 39 U/L 13-40 eGFR (test code = 3060952209) mL/min/1.73m2 ANU (test code = ANU) Lab Interpretation (test code = Abnormal 59491-0) [facility] 02[facility]20:14 Test Item Value Reference Range Interpretation Comments LIPASE (test code = 2708484650) 74 U/L 0-220 Lab Interpretation (test code = Normal 56888-2) [facility] (ID NOW RAPID TESTING)2021-04-01 02:20:14 Test Item Value Reference Range Interpretation Comments SARS-CoV-2 Rapid ID NOW Not Detected Not Detected (test code = 94220-3) ANU (test code = ANU) ID NOW COVID-19 Assay is an isothermal nucleic acid amplification test intended for the qualitative detection of nucleic acid from SARS-CoV-2 viral RNA in nasopharyngeal (TECHNICAL STENOGRAPHER) specimens. It is used under Emergency Use Authorization (EUA) by FDA. The limit of detection (LOD) of the assay is 125 Genome Equivalents/mL. A positive result is indicative of the presence of SARS-CoV-2 RNA. ?Clinical correlation with patient history and other diagnostic information is necessary to determine patient infection status. A negative (Not Detected) result does not preclude SARS-CoV-2 infection. In patients with clinical symptoms and other tests that are consistent with SARS-CoV-2 infection, negative results should be treated as presumptive negative and a new specimen should be tested with alternative PCR molecular test. Invalid: Please collect a new specimen for repeat patient testing if clinically indicated. Lab Interpretation Normal (test code = 99788-0) [facility] 02:20:14 Test Item Value Reference Range Interpretation Comments LIPASE (test code = 9459358330) 74 U/L 0-220 Lab Interpretation (test code = Normal 63096-6) [facility] ([facility] NOW RAPID TESTING)2021-04-01 02:20:14 Test Item Value Reference Range Interpretation Comments SARS-CoV-2 Rapid ID NOW (test Not Detected Not Detected code = 52888-9) ANU (test code = ANU) Lab Interpretation (test code = Normal 98091-4) [facility] WO [id number] 02:13:29No acute findings. HISTORY:Mental status change, unknown [...] extracranial tissues demonstrate no acute findings.IMPRESSIONNo acute findings.[facility] HospitalCT HEAD WO [id number] 02:13:29No acute findings. HISTORY:Mental status change, unknown [...] extracranial tissues demonstrate no acute findings.IMPRESSIONNo acute findings.[facility] HospitalCB WITH [id number] 02:05:52 Test Item Value Reference Range Interpretation Comments WBC (test code = See_Comment [Automated 5875-2) message] The sy stem which generated this [...] RDW-SD (test code = 44.7 fL 38.5-51.6 36453-4) RDW-CV (test code = 13.2 % 12.1-15.4 788-0) PLT (test code = See_Comment [Automated 777-3) message] The sy stem which generated this result transmitted reference range : 150 - 328 10*3/ ?L. The reference r dustin was not used to interpret this result as normal/abnormal . MPV (test code = 10.3 fL 9.8-13.0 92441-0) NRBC/100 WBC (test See_Comment [Automat ed code = 4452834149) message] The system which generated this result transmitted reference range : 0.0 - 10.0 /100 WBCs. The refer ence range was not u sed to interpret th is result as normal/abnormal . NRBC x10^3 (test code <0.01 See_Comment [Auto mated = 2925215844) message] The s ystem which generated this result transmitted reference range : 10*3/?L. The reference range was not used to interpret this result as normal/abnormal . GRAN MAT (NEUT) % 54.9 % (test code = 770-8) IMM GRAN % (test code 0.20 % = 5082555495) LYMPH % (test code = 34.3 % 736-9) MONO % (test code = 7.0 % 5905-5) EOS % (test code = 3.0 % 713-8) BASO % (test code = 0.6 % 706-2) GRAN MAT x10^3(ANC) 4.59 10*3/uL 1.99-6.95 (test code = 9603371544) IMM GRAN x10^3 (test <0.03 0.00-0.06 code = 2370027729) LYMPH x10^3 (test code 2.87 10*3/uL 1.09-3.23 = 731-0) MONO x10^3 (test code 0.59 10*3/uL 0.36-1.02 = 742-7) EOS x10^3 (test code = 0.25 10*3/uL 0.06-0.53 711-2) BASO x10^3 (test code 0.05 10*3/uL 0.01-0.09 = 704-7) Lab Interpretation Abnormal (test code = 80655-9) [facility] WITH [id number] 02:05:52 Test Item Value Reference Range Interpretation Comments WBC (test code = See_Comment [Automated 1690-2) message] The sy stem which generated this result transmitted reference range : 4.20 - 10.70 10*3/?L. The reference range was not used to interpret this result as normal/abnormal . RBC (test code = See_Comment L [Automated 059-8) message] The sy stem which generated this [...] RDW-SD (test code = 44.7 fL 38.5-51.6 90907-7) RDW-CV (test code = 13.2 % 12.1-15.4 788-0) PLT (test code = See_Comment [Automated 777-3) message] The sy stem which generated this result transmitted reference range : 150 - 328 10*3/ ?L. The reference r dustin was not used to interpret this result as normal/abnormal . MPV (test code = 10.3 fL 9.8-13.0 85087-0) NRBC/100 WBC (test See_Comment [Automat ed code = 9679022573) message] The system which generated this result transmitted reference range : 0.0 - 10.0 /100 WBCs. The refer ence range was not u sed to interpret th is result as normal/abnormal . NRBC x10^3 (test code <0.01 See_Comment [Auto mated = 0316298102) message] The s ystem which generated this result transmitted reference range : 10*3/?L. The reference range was not used to interpret this result as normal/abnormal . GRAN MAT (NEUT) % 54.9 % (test code = 770-8) IMM GRAN % (test code 0.20 % = 8465014933) LYMPH % (test code = 34.3 % 736-9) MONO % (test code = 7.0 % 5905-5) EOS % (test code = 3.0 % 713-8) BASO % (test code = 0.6 % 706-2) GRAN MAT x10^3(ANC) 4.59 10*3/uL 1.99-6.95 (test code = 8541787161) IMM GRAN x10^3 (test <0.03 0.00-0.06 code = 5362152785) LYMPH x10^3 (test code 2.87 10*3/uL 1.09-3.23 = 731-0) MONO x10^3 (test code 0.59 10*3/uL 0.36-1.02 = 742-7) EOS x10^3 (test code = 0.25 10*3/uL 0.06-0.53 711-2) BASO x10^3 (test code 0.05 10*3/uL 0.01-0.09 = 704-7) Lab Interpretation Abnormal (test code = 92229-0) [facility] + LACTIC [id number] 01:48:54 Test Item Value Reference Range Interpretation Comments PH (test code = 7.32-7.42 7653983329) PCO2 TAJ (test code = See_Comment H [Auto mated 5874371798) message] The sy stem which generated this result transmitted reference range : 41 - 51 mmHg. The reference range was not used to interpret this result as normal/abnormal . PO2 TAJ (test code = See_Comment [Autom ated 3801270050) message] The sy stem which generated this result transmitted reference range : 25 - 40 mmHg. The reference range was not used to interpret this result as normal/abnormal . HCO3 TAJ (test code = See_Comment [Auto mated 7694771629) message] The sy stem which generated this result transmitted reference range : 24 - 28 mEq/L. The reference range was not used to interpret this result as normal/abnormal . AC VBE(BEAKER) (test mEq/L code = 3115454282) THB TAJ (test code = 11.2 g/dL 13.5-18.0 L 4966161875) %O2HB TAJ (test code = 51.0 % 52.0-63.0 L 6625391613) %COHB TAJ (test code = 1.1 % 0.0-1.5 7856947113) %METHB TAJ (test code = 0.3 % 0.4-1.5 L 8707334349) VOL%O2 TAJ (test code = 8.0 % 6.0-12.0 2251451652) NA (test code = 138 mmol/L 135-145 5291003075) K+ (test code = 3.7 mmol/L 3.5-5.0 2630372562) AC CA IONZ (test code = 4.60 mg/dL 4.50-5.30 8152993293) GLUCOSE (test code = 236 mg/dL 70-110 H 7950496112) LACTIC ACID (test code 2.61 mmol/L 0.50-2.20 H = 9818330447) Lab Interpretation Abnormal (test code = 80723-0) [id number] 01:48:54 Test Item Value Reference Range Interpretation Comments PH (test code = 7.32-7.42 4971430818) PCO2 TAJ (test code = See_Comment H [Auto mated 7431586157) message] The sy stem which generated this result transmitted reference range : 41 - 51 mmHg. The reference range was not used to interpret this result as normal/abnormal . PO2 TAJ (test code = See_Comment [Autom ated 5300020169) message] The sy stem which generated this result transmitted reference range : 25 - 40 mmHg. The reference range was not used to interpret this result as normal/abnormal . HCO3 TAJ (test code = See_Comment [Auto mated 5447298033) message] The sy stem which generated this result transmitted reference range : 24 - 28 mEq/L. The reference range was not used to interpret this result as normal/abnormal . AC VBE(BEAKER) (test mEq/L code = 6957620207) THB TAJ (test code = 11.2 g/dL 13.5-18.0 L 2495002932) %O2HB TAJ (test code = 51.0 % 52.0-63.0 L 9533834726) %COHB TAJ (test code = 1.1 % 0.0-1.5 0884044447) %METHB TAJ (test code = 0.3 % 0.4-1.5 L 7286808898) VOL%O2 TAJ (test code = 8.0 % 6.0-12.0 0747905374) NA (test code = 138 mmol/L 135-145 8869699879) K+ (test code = 3.7 mmol/L 3.5-5.0 0771746189) AC CA IONZ (test code = 4.60 mg/dL 4.50-5.30 0672624544) GLUCOSE (test code = 236 mg/dL 70-110 H 8828770035) LACTIC ACID (test code 2.61 mmol/L 0.50-2.20 H = 4632626988) Lab Interpretation Abnormal (test code = 11130-2) [facility] GLUCOSE (AUTOMATED)2021-02-26 22:12:16 Test Item Value Reference Range Interpretation Comments POCT GLU (test code = 9715681004) 187 mg/dL 70-110 H Lab Interpretation (test code = Abnormal 62173-2) [facility] GLUCOSE (AUTOMATED)2021-02-26 17:17:18 Test Item Value Reference Range Interpretation Comments POCT GLU (test code = 6458511101) 189 mg/dL 70-110 H Lab Interpretation (test code = Abnormal 50641-8) [facility] GLUCOSE (AUTOMATED)2021-02-26 13:53:52 Test Item Value Reference Range Interpretation Comments POCT GLU (test code = 9740823406) 132 mg/dL 70-110 H Lab Interpretation (test code = Abnormal 96944-0) [facility] METABOLIC PANEL (NA, K, CL, CO2, GLUCOSE, BUN, CREATININE, CA)2021-02-26 11:27:38 Test Item Value Reference Range Interpretation Comments NA (test code = 142 mmol/L 135-145 6276929208) K (test code = 4.0 mmol/L 3.5-5.0 9210110128) CL (test code = 106 mmol/L 98-108 3439667611) CO2 TOTAL (test code = 25 mmol/L 23-31 7888551529) AGAP (test code = 2-16 4378579010) BUN (test code = 13 mg/dL 7-23 9751471174) GLUCOSE (test code = 129 mg/dL 70-110 H 1811498323) CREATININE (test code = 0.97 mg/dL 0.60-1.25 4770047539) CALCIUM (test code = 9.3 mg/dL 8.6-10.6 7668440395) eGFR (test code = mL/min/1.73m2 1938320808) ANU (test code = ANU) Association of Glomerular Filtration Rate (GFR) and Staging of Kidney Disease* + --+ --+ ------+| GFR (mL/min/1.73 m2) ?| With Kidney Damage ?| ?Without Kidney Damage+ --------+ --------+ +| ?>90 ?| ?Stage one ?| ? Normal ?+ ---+ ---+ -------+| ?60-89 ?| ?Stage two ?| ? Decreased GFR ? + --+ --+ ------+| ?30-59 ?| ?Stage three ?| ? Stage three ? + --+ --+ ------+| ?15-29 ?| ?Stage four ? | ? Stage four ?+ ---+ ---+ -------+| ?<15 (or dialysis) ? ?| ?Stage five ? | ? Stage five ?+ ---+ ---+ -------+ *Each stage assumes the associated GFR level has been in effect for at least three months. ?Stages 1 to 5, with or without kidney disease, indicate chronic kidney disease. Notes: Determination of stages one and two (with eGFR >59mL/min/1.73 m2) requires estimation of kidney damage for at least three months as defined by structural or functional abnormalities of the kidney, manifested by either:Pathological abnormalities or Markers of kidney damage (including abnormalities in the composition of the blood or urine or abnormalities in imaging tests). Lab Interpretation Abnormal (test code = 09160-8) [facility] WITH [id number] 10:55:37 Test Item Value Reference Range Interpretation Comments WBC (test code = See_Comment [Automated 2190-2) message] The sy stem which generated this [...] as normal/abnormal . HGB (test code = 9.7 g/dL 12.2-16.4 L 718-7) HCT (test code = 28.7 % 38.4-49.3 L 4544-3) MCV (test code = 91.1 fL 81.7-95.6 787-2) MCH (test code = 30.8 pg 26.1-32.7 785-6) MCHC (test code = 33.8 g/dL 31.2-35.0 786-4) RDW-SD (test code = 42.0 fL 38.5-51.6 85480-7) RDW-CV (test code = 12.7 % 12.1-15.4 788-0) PLT (test code = See_Comment [Automated 777-3) message] The sy stem which generated this result transmitted reference range : 150 - 328 10*3/ ?L. The reference r dustin was not used to interpret this result as normal/abnormal . MPV (test code = 9.5 fL 9.8-13.0 L 94852-9) NRBC/100 WBC (test See_Comment [Automat ed code = 5650999784) message] The system which generated this result transmitted reference range : 0.0 - 10.0 /100 WBCs. The refer ence range was not u sed to interpret th is result as normal/abnormal . NRBC x10^3 (test code <0.01 See_Comment [Auto mated = 0134534873) message] The s ystem which generated this result transmitted reference range : 10*3/?L. The reference range was not used to interpret this result as normal/abnormal . GRAN MAT (NEUT) % 59.7 % (test code = 770-8) IMM GRAN % (test code 0.50 % = 2008191878) LYMPH % (test code = 30.1 % 736-9) MONO % (test code = 6.8 % 5905-5) EOS % (test code = 2.3 % 713-8) BASO % (test code = 0.6 % 706-2) GRAN MAT x10^3(ANC) 5.13 10*3/uL 1.99-6.95 (test code = 6708762522) IMM GRAN x10^3 (test 0.04 10*3/uL 0.00-0.06 code = 5286833283) LYMPH x10^3 (test code 2.58 10*3/uL 1.09-3.23 = 731-0) MONO x10^3 (test code 0.58 10*3/uL 0.36-1.02 = 742-7) EOS x10^3 (test code = 0.20 10*3/uL 0.06-0.53 711-2) BASO x10^3 (test code 0.05 10*3/uL 0.01-0.09 = 704-7) Lab Interpretation Abnormal (test code = 13172-2) [facility] 02:24:21 Test Item Value Reference Range Interpretation Comments POCT GLU (test code = 8129503180) 226 mg/dL 70-110 H Lab Interpretation (test code = Abnormal 73877-1) [facility] # [id number] 02:01:55 Test Item Value Reference Range Interpretation Comments Blood Culture-Aerobic No organisms No growth Previo us (test code = 54874-2) isolated prelim inary verified result was Culture In Progress on 02/21/2021 at 00 01 CDTPrevious preliminary verified result was No growth a t 24 hours on 02/21/2021 at 21 01 CDTPrevious preliminary verified result was No growth a t 48 hours on 02/22/2021 at 21 01 CDTPrevious preliminary verified result was No growth a t 72 hours on 02/23/2021 at 21 01 CDT Blood No organisms No growth Previous Culture-Anaerobic isolated preliminar y (test code = 92860-6) verifi ed result was Culture In Progress on 02/21/2021 at 00 01 CDTPrevious preliminary verified result was No growth a t 24 hours on 02/21/2021 at 21 01 CDTPrevious preliminary verified result was No growth a t 48 hours on 02/22/2021 at 21 CDTPrevious preliminary verified result was No growth a t 72 hours on 02/23/2021 at 21 01 CDT Lab Interpretation Normal (test code = 88824-9) [facility] # [id number] 02:01:55 Test Item Value Reference Range Interpretation Comments Blood Culture-Aerobic No organisms No growth Previo us (test code = 33165-1) isolated prelim inary verified result was Culture In Progress on 02/21/2021 at 00 02 CDTPrevious preliminary verified result was No growth a t 24 hours on 02/21/2021 at 21 CDTPrevious preliminary verified result was No growth a t 48 hours on 02/22/2021 at 21 CDTPrevious preliminary verified result was No growth a t 72 hours on 02/23/2021 at 21 01 CDT Blood No organisms No growth Previous Culture-Anaerobic isolated preliminar y (test code = 07251-3) verifi ed result was Culture In Progress on 02/21/2021 at 00 02 CDTPrevious preliminary verified result was No growth a t 24 hours on 02/21/2021 at 21 01 CDTPrevious preliminary verified result was No growth a t 48 hours on 02/22/2021 at 21 01 CDTPrevious preliminary verified result was No growth a t 72 hours on 02/23/2021 at 21 01 CDT Lab Interpretation Normal (test code = 60454-3) [facility] GLUCOSE (AUTOMATED)2021-02-25 21:54:18 Test Item Value Reference Range Interpretation Comments POCT GLU (test code = 0179631091) 254 mg/dL 70-110 H Lab Interpretation (test code = Abnormal 89773-5) [facility] GLUCOSE (AUTOMATED)2021-02-25 16:06:47 Test Item Value Reference Range Interpretation Comments POCT GLU (test code = 4302577067) 178 mg/dL 70-110 H Lab Interpretation (test code = Abnormal 55941-5) [facility] GLUCOSE (AUTOMATED)2021-02-25 12:41:08 Test Item Value Reference Range Interpretation Comments POCT GLU (test code = 8839048298) 141 mg/dL 70-110 H Lab Interpretation (test code = Abnormal 55377-2) [facility] METABOLIC PANEL (NA, K, CL, CO2, GLUCOSE, BUN, CREATININE, CA)2021-02-25 09:30:31 Test Item Value Reference Range Interpretation Comments NA (test code = 140 mmol/L 135-145 5390953628) K (test code = 3.7 mmol/L 3.5-5.0 6444157336) CL (test code = 104 mmol/L 98-108 6508785681) CO2 TOTAL (test code = 27 mmol/L 23-31 2797931227) AGAP (test code = 2-16 4754568963) BUN (test code = 9 mg/dL 7-23 4918885322) GLUCOSE (test code = 143 mg/dL 70-110 H 0767458801) CREATININE (test code = 0.69 mg/dL 0.60-1.25 0571397604) CALCIUM (test code = 9.4 mg/dL 8.6-10.6 0842897037) eGFR (test code = mL/min/1.73m2 4249921746) ANU (test code = ANU) Association of Glomerular Filtration Rate (GFR) and Staging of Kidney Disease* + --+ --+ ------+| GFR (mL/min/1.73 m2) ?| With Kidney Damage ?| ?Without Kidney Damage+ --------+ --------+ +| ?>90 ?| ?Stage one ?| ? Normal ?+ ---+ ---+ -------+| ?60-89 ?| ?Stage two ?| ? Decreased GFR ? + --+ --+ ------+| ?30-59 ?| ?Stage three ?| ? Stage three ? + --+ --+ ------+| ?15-29 ?| ?Stage four ? | ? Stage four ?+ ---+ ---+ -------+| ?<15 (or dialysis) ? ?| ?Stage five ? | ? Stage five ?+ ---+ ---+ -------+ *Each stage assumes the associated GFR level has been in effect for at least three months. ?Stages 1 to 5, with or without kidney disease, indicate chronic kidney disease. Notes: Determination of stages one and two (with eGFR >59mL/min/1.73 m2) requires estimation of kidney damage for at least three months as defined by structural or functional abnormalities of the kidney, manifested by either:Pathological abnormalities or Markers of kidney damage (including abnormalities in the composition of the blood or urine or abnormalities in imaging tests). Lab Interpretation Abnormal (test code = 75619-5) [facility] WITH [id number] 09:12:53 Test Item Value Reference Range Interpretation Comments WBC (test code = See_Comment [Automated 7363-2) message] The sy stem which generated this result transmitted reference range : 4.20 - 10.70 10*3/?L. The reference range was not used to interpret this result as normal/abnormal . RBC (test code = See_Comment L [Automated 979-8) message] The sy stem which generated this result transmitted reference range : 4.26 - 5.52 10*6/?L. The reference range was not used to interpret this result as normal/abnormal . HGB (test code = 9.4 g/dL 12.2-16.4 L 718-7) HCT (test code = 28.4 % 38.4-49.3 L 4544-3) MCV (test code = 92.2 fL 81.7-95.6 787-2) MCH (test code = 30.5 pg 26.1-32.7 785-6) MCHC (test code = 33.1 g/dL 31.2-35.0 786-4) RDW-SD (test code = 42.1 fL 38.5-51.6 03412-1) RDW-CV (test code = 12.7 % 12.1-15.4 788-0) PLT (test code = See_Comment L [Automated 777-3) message] The sy stem which generated this result transmitted reference range : 150 - 328 10*3/ ?L. The reference r dustin was not used to interpret this result as normal/abnormal . MPV (test code = 10.3 fL 9.8-13.0 59683-8) NRBC/100 WBC (test See_Comment [Automat ed code = 7883180025) message] The system which generated this result transmitted reference range : 0.0 - 10.0 /100 WBCs. The refer ence range was not u sed to interpret th is result as normal/abnormal . NRBC x10^3 (test code <0.01 See_Comment [Auto mated = 3994366297) message] The s ystem which generated this result transmitted reference range : 10*3/?L. The reference range was not used to interpret this result as normal/abnormal . GRAN MAT (NEUT) % 48.6 % (test code = 770-8) IMM GRAN % (test code 0.30 % = 4227747098) LYMPH % (test code = 38.6 % 736-9) MONO % (test code = 9.2 % 5905-5) EOS % (test code = 2.7 % 713-8) BASO % (test code = 0.6 % 706-2) GRAN MAT x10^3(ANC) 3.23 10*3/uL 1.99-6.95 (test code = 5097139961) IMM GRAN x10^3 (test <0.03 0.00-0.06 code = 1265463545) LYMPH x10^3 (test code 2.56 10*3/uL 1.09-3.23 = 731-0) MONO x10^3 (test code 0.61 10*3/uL 0.36-1.02 = 742-7) EOS x10^3 (test code = 0.18 10*3/uL 0.06-0.53 711-2) BASO x10^3 (test code 0.04 10*3/uL 0.01-0.09 = 704-7) Lab Interpretation Abnormal (test code = 77130-5) [facility] GLUCOSE (AUTOMATED)2021-02-25 02:15:28 Test Item Value Reference Range Interpretation Comments POCT GLU (test code = 204 mg/dL 70-110 H Notifi ed Provider 7306753233) Lab Interpretation (test Abnormal code = 90234-7) [facility]-25 00:03:48 Test Item Value Reference Range Interpretation Comments HGB A1C (test code = 7.8 % 4.0-5.7 H 4548-4) ANU (test code = ANU) Reference RangesNormal: <5.7%Prediabetes: 5.7 - 6.4%Diabetes: > 6.5% Lab Interpretation (test Abnormal code = 44173-4) [facility] GLUCOSE (AUTOMATED)2021-02-24 21:53:33 Test Item Value Reference Range Interpretation Comments POCT GLU (test code = 2248728269) 170 mg/dL 70-110 H Lab Interpretation (test code = Abnormal 72764-4) [facility] GLUCOSE (AUTOMATED)2021-02-24 16:39:31 Test Item Value Reference Range Interpretation Comments POCT GLU (test code = 5736789804) 147 mg/dL 70-110 H Lab Interpretation (test code = Abnormal 13650-1) [facility] GLUCOSE (AUTOMATED)2021-02-24 12:37:30 Test Item Value Reference Range Interpretation Comments POCT GLU (test code = 3689419104) 141 mg/dL 70-110 H Lab Interpretation (test code = Abnormal 00538-3) [facility] (NA, K, CL, CO2, GLUCOSE, BUN, CREATININE, CA)2021-02-24 09:52:22 Test Item Value Reference Range Interpretation Comments NA (test code = 141 mmol/L 135-145 5388664666) K (test code = 4.3 mmol/L 3.5-5.0 7670024369) CL (test code = 107 mmol/L 98-108 4046441008) CO2 TOTAL (test code = 26 mmol/L 23- 3491602340) AGAP (test code = 2-16 8566902664) BUN (test code = 10 mg/dL 7- 9988344964) GLUCOSE (test code = 145 mg/dL 70-110 H 8059153837) CREATININE (test code = 0.72 mg/dL 0.60-1.25 6372507510) CALCIUM (test code = 9.3 mg/dL 8.6-10.6 9553488537) eGFR (test code = mL/min/1.73m2 2119759684) ANU (test code = ANU) Association of Glomerular Filtration Rate (GFR) and Staging of Kidney Disease* + --+ --+ ------+| GFR (mL/min/1.73 m2) ?| With Kidney Damage ?| ?Without Kidney Damage+ --------+ --------+ +| ?>90 ?| ?Stage one ?| ? Normal ?+ ---+ ---+ -------+| ?60-89 ?| ?Stage two ?| ? Decreased GFR ? + --+ --+ ------+| ?30-59 ?| ?Stage three ?| ? Stage three ? + --+ --+ ------+| ?15-29 ?| ?Stage four ? | ? Stage four ?+ ---+ ---+ -------+| ?<15 (or dialysis) ? ?| ?Stage five ? | ? Stage five ?+ ---+ ---+ -------+ *Each stage assumes the associated GFR level has been in effect for at least three months. ?Stages 1 to 5, with or without kidney disease, indicate chronic kidney disease. Notes: Determination of stages one and two (with eGFR >59mL/min/1.73 m2) requires estimation of kidney damage for at least three months as defined by structural or functional abnormalities of the kidney, manifested by either:Pathological abnormalities or Markers of kidney damage (including abnormalities in the composition of the blood or urine or abnormalities in imaging tests). Lab Interpretation Abnormal (test code = 25978-9) [facility] WITH [id number] 09:19:21 Test Item Value Reference Range Interpretation Comments WBC (test code = See_Comment [Automated 0390-2) message] The sy stem which generated this [...] as normal/abnormal . HGB (test code = 9.2 g/dL 12.2-16.4 L 718-7) HCT (test code = 28.1 % 38.4-49.3 L 4544-3) MCV (test code = 91.8 fL 81.7-95.6 787-2) MCH (test code = 30.1 pg 26.1-32.7 785-6) MCHC (test code = 32.7 g/dL 31.2-35.0 786-4) RDW-SD (test code = 42.5 fL 38.5-51.6 75004-5) RDW-CV (test code = 12.8 % 12.1-15.4 788-0) PLT (test code = See_Comment L [Automated 777-3) message] The sy stem which generated this result transmitted reference range : 150 - 328 10*3/ ?L. The reference r dustin was not used to interpret this result as normal/abnormal . MPV (test code = 9.9 fL 9.8-13.0 22797-7) NRBC/100 WBC (test See_Comment [Automat ed code = 3029021087) message] The system which generated this result transmitted reference range : 0.0 - 10.0 /100 WBCs. The refer ence range was not u sed to interpret th is result as normal/abnormal . NRBC x10^3 (test code <0.01 See_Comment [Auto mated = 9130123242) message] The s ystem which generated this result transmitted reference range : 10*3/?L. The reference range was not used to interpret this result as normal/abnormal . GRAN MAT (NEUT) % 47.7 % (test code = 770-8) IMM GRAN % (test code 0.20 % = 2834570513) LYMPH % (test code = 39.0 % 736-9) MONO % (test code = 10.3 % 5905-5) EOS % (test code = 2.3 % 713-8) BASO % (test code = 0.5 % 706-2) GRAN MAT x10^3(ANC) 2.96 10*3/uL 1.99-6.95 (test code = 8741950658) IMM GRAN x10^3 (test <0.03 0.00-0.06 code = 4217813283) LYMPH x10^3 (test code 2.42 10*3/uL 1.09-3.23 = 731-0) MONO x10^3 (test code 0.64 10*3/uL 0.36-1.02 = 742-7) EOS x10^3 (test code = 0.14 10*3/uL 0.06-0.53 711-2) BASO x10^3 (test code 0.03 10*3/uL 0.01-0.09 = 704-7) Lab Interpretation Abnormal (test code = 07078-1) [facility] GLUCOSE (AUTOMATED)2021-02-24 01:42:01 Test Item Value Reference Range Interpretation Comments POCT GLU (test code = 2672059759) 178 mg/dL 70-110 H Lab Interpretation (test code = Abnormal 65072-8) [facility] GLUCOSE (AUTOMATED)2021-02-23 22:46:27 Test Item Value Reference Range Interpretation Comments POCT GLU (test code = 0400952875) 156 mg/dL 70-110 H Lab Interpretation (test code = Abnormal 37780-9) [facility] GLUCOSE (AUTOMATED)2021-02-23 16:57:14 Test Item Value Reference Range Interpretation Comments POCT GLU (test code = 0924002498) 185 mg/dL 70-110 H Lab Interpretation (test code = Abnormal 67436-6) [facility] GLUCOSE (AUTOMATED)2021-02-23 14:09:23 Test Item Value Reference Range Interpretation Comments POCT GLU (test code = 5854798234) 180 mg/dL 70-110 H Lab Interpretation (test code = Abnormal 59121-1) [facility] METABOLIC PANEL (NA, K, CL, CO2, GLUCOSE, BUN, CREATININE, CA)2021-02-23 09:26:37 Test Item Value Reference Range Interpretation Comments NA (test code = 141 mmol/L 135-145 2950341047) K (test code = 3.9 mmol/L 3.5-5.0 5952431460) CL (test code = 111 mmol/L 98-108 H 6748890821) CO2 TOTAL (test code = 23 mmol/L 23-31 2233262388) AGAP (test code = 2-16 3743688733) BUN (test code = 12 mg/dL 7-23 5488177910) GLUCOSE (test code = 164 mg/dL 70-110 H 5917013037) CREATININE (test code = 0.78 mg/dL 0.60-1.25 9291000840) CALCIUM (test code = 9.1 mg/dL 8.6-10.6 9797770973) eGFR (test code = mL/min/1.73m2 5359653059) ANU (test code = ANU) Association of Glomerular Filtration Rate (GFR) and Staging of Kidney Disease* + --+ --+ ------+| GFR (mL/min/1.73 m2) ?| With Kidney Damage ?| ?Without Kidney Damage+ --------+ --------+ +| ?>90 ?| ?Stage one ?| ? Normal ?+ ---+ ---+ -------+| ?60-89 ?| ?Stage two ?| ? Decreased GFR ? + --+ --+ ------+| ?30-59 ?| ?Stage three ?| ? Stage three ? + --+ --+ ------+| ?15-29 ?| ?Stage four ? | ? Stage four ?+ ---+ ---+ -------+| ?<15 (or dialysis) ? ?| ?Stage five ? | ? Stage five ?+ ---+ ---+ -------+ *Each stage assumes the associated GFR level has been in effect for at least three months. ?Stages 1 to 5, with or without kidney disease, indicate chronic kidney disease. Notes: Determination of stages one and two (with eGFR >59mL/min/1.73 m2) requires estimation of kidney damage for at least three months as defined by structural or functional abnormalities of the kidney, manifested by either:Pathological abnormalities or Markers of kidney damage (including abnormalities in the composition of the blood or urine or abnormalities in imaging tests). Lab Interpretation Abnormal (test code = 72599-2) [facility] WITH [id number] 09:04:37 Test Item Value Reference Range Interpretation Comments [...] as normal/abnormal . HGB (test code = 9.5 g/dL 12.2-16.4 L 718-7) HCT (test code = 29.0 % 38.4-49.3 L 4544-3) MCV (test code = 92.1 fL 81.7-95.6 787-2) MCH (test code = 30.2 pg 26.1-32.7 785-6) MCHC (test code = 32.8 g/dL 31.2-35.0 786-4) RDW-SD (test code = 43.5 fL 38.5-51.6 92947-4) RDW-CV (test code = 12.8 % 12.1-15.4 788-0) PLT (test code = See_Comment L [Automated 777-3) message] The sy stem which generated this result transmitted reference range : 150 - 328 10*3/ ?L. The reference r dustin was not used to interpret this result as normal/abnormal . MPV (test code = 10.1 fL 9.8-13.0 70876-5) NRBC/100 WBC (test See_Comment [Automat ed code = 2337725445) message] The system which generated this result transmitted reference range : 0.0 - 10.0 /100 WBCs. The refer ence range was not u sed to interpret th is result as normal/abnormal . NRBC x10^3 (test code <0.01 See_Comment [Auto mated = 0411732450) message] The s itembasetem which generated this result transmitted reference range : 10*3/?L. The reference range was not used to interpret this result as normal/abnormal . GRAN MAT (NEUT) % 57.5 % (test code = 770-8) IMM GRAN % (test code 0.30 % = 5557985964) LYMPH % (test code = 31.0 % 736-9) MONO % (test code = 8.6 % 5905-5) EOS % (test code = 2.3 % 713-8) BASO % (test code = 0.3 % 706-2) GRAN MAT x10^3(ANC) 3.73 10*3/uL 1.99-6.95 (test code = 9875648017) IMM GRAN x10^3 (test <0.03 0.00-0.06 code = 1101809037) LYMPH x10^3 (test code 2.01 10*3/uL 1.09-3.23 = 731-0) MONO x10^3 (test code 0.56 10*3/uL 0.36-1.02 = 742-7) EOS x10^3 (test code = 0.15 10*3/uL 0.06-0.53 711-2) BASO x10^3 (test code <0.03 0.01-0.09 = 704-7) Lab Interpretation Abnormal (test code = 70389-7) [facility] GLUCOSE (AUTOMATED)2021-02-23 02:29:54 Test Item Value Reference Range Interpretation Comments POCT GLU (test code = 7560444474) 155 mg/dL 70-110 H Lab Interpretation (test code = Abnormal 57098-5) [facility] GLUCOSE (AUTOMATED)2021-02-22 22:51:30 Test Item Value Reference Range Interpretation Comments POCT GLU (test code = 2573768182) 176 mg/dL 70-110 H Lab Interpretation (test code = Abnormal 31973-1) [facility] GLUCOSE (AUTOMATED)2021-02-22 17:09:21 Test Item Value Reference Range Interpretation Comments POCT GLU (test code = 7909760223) 194 mg/dL 70-110 H Lab Interpretation (test code = Abnormal 63796-5) [facility] METABOLIC PANEL (NA, K, CL, CO2, GLUCOSE, BUN, CREATININE, CA)2021-02-22 11:26:26 Test Item Value Reference Range Interpretation Comments NA (test code = 136 mmol/L 135-145 8684188603) K (test code = 3.9 mmol/L 3.5-5.0 4459084284) CL (test code = 108 mmol/L 98-108 5611920935) CO2 TOTAL (test code 25 mmol/L 23-31 = 0220503680) AGAP (test code = 2-16 2586632425) BUN (test code = 14 mg/dL 7-23 6186399574) GLUCOSE (test code = 109 mg/dL 70-110 7760431550) CREATININE (test code 0.84 mg/dL 0.60-1.25 = 2944023273) CALCIUM (test code = 8.6 mg/dL 8.6-10.6 7062700294) eGFR (test code = mL/min/1.73m2 8403614102) ANU (test code = ANU) Association of Glomerular Filtration Rate (GFR) and Staging of Kidney Disease* + + +- +| GFR (mL/min/1.73 m2) ?| With Kidney Damage ?| ?Without Kidney Damage+ ------+ ----+ ------+| ?>90 ?| ?Stage one ?| ? Normal ?+ -+ + -+| ?60-89 ?| ?Stage two ?| ? Decreased GFR ? + + +- +| ?30-59 ?| ?Stage three ?| ? Stage three ? + + +- +| ?15-29 ?| ?Stage four ? | ? Stage four ?+ -+ + -+| ?<15 (or dialysis) ? ?| ?Stage five ? | ? Stage five ?+ -+ + -+ *Each stage assumes the associated GFR level has been in effect for at least three months. ?Stages 1 to 5, with or without kidney disease, indicate chronic kidney disease. Notes: Determination of stages one and two (with eGFR >59mL/min/1.73 m2) requires estimation of kidney damage for at least three months as defined by structural or functional abnormalities of the kidney, manifested by either:Pathological abnormalities or Markers of kidney damage (including abnormalities in the composition of the blood or urine or abnormalities in imaging tests). [facility] WITH [id number] 10:58:44 Test Item Value Reference Range Interpretation Comments [...] as normal/abnormal . HGB (test code = 9.1 g/dL 12.2-16.4 L 718-7) HCT (test code = 27.9 % 38.4-49.3 L 4544-3) MCV (test code = 94.9 fL 81.7-95.6 787-2) MCH (test code = 31.0 pg 26.1-32.7 785-6) MCHC (test code = 32.6 g/dL 31.2-35.0 786-4) RDW-SD (test code = 44.7 fL 38.5-51.6 93503-9) RDW-CV (test code = 12.8 % 12.1-15.4 788-0) PLT (test code = See_Comment L [Automated 777-3) message] The sy stem which generated this result transmitted reference range : 150 - 328 10*3/ ?L. The reference r dustin was not used to interpret this result as normal/abnormal . MPV (test code = 10.5 fL 9.8-13.0 67053-2) NRBC/100 WBC (test See_Comment [Automat ed code = 0465598949) message] The system which generated this result transmitted reference range : 0.0 - 10.0 /100 WBCs. The refer ence range was not u sed to interpret th is result as normal/abnormal . NRBC x10^3 (test code <0.01 See_Comment [Auto mated = 0885108737) message] The s ystem which generated this result transmitted reference range : 10*3/?L. The reference range was not used to interpret this result as normal/abnormal . GRAN MAT (NEUT) % 51.1 % (test code = 770-8) IMM GRAN % (test code 0.30 % = 3989978375) LYMPH % (test code = 36.1 % 736-9) MONO % (test code = 10.3 % 5905-5) EOS % (test code = 1.7 % 713-8) BASO % (test code = 0.5 % 706-2) GRAN MAT x10^3(ANC) 3.31 10*3/uL 1.99-6.95 (test code = 4406343511) IMM GRAN x10^3 (test <0.03 0.00-0.06 code = 2243582428) LYMPH x10^3 (test code 2.34 10*3/uL 1.09-3.23 = 731-0) MONO x10^3 (test code 0.67 10*3/uL 0.36-1.02 = 742-7) EOS x10^3 (test code = 0.11 10*3/uL 0.06-0.53 711-2) BASO x10^3 (test code 0.03 10*3/uL 0.01-0.09 = 704-7) Lab Interpretation Abnormal (test code = 07857-6) [facility] GLUCOSE (AUTOMATED)2021-02-22 02:14:29 Test Item Value Reference Range Interpretation Comments POCT GLU (test code = 0512901957) 151 mg/dL 70-110 H Lab Interpretation (test code = Abnormal 51894-2) [facility] GLUCOSE (AUTOMATED)2021-02-21 21:29:33 Test Item Value Reference Range Interpretation Comments POCT GLU (test code = 5577127039) 147 mg/dL 70-110 H Lab Interpretation (test code = Abnormal 77895-2) [facility] GLUCOSE (AUTOMATED)2021-02-21 17:20:58 Test Item Value Reference Range Interpretation Comments POCT GLU (test code = 1842787379) 155 mg/dL 70-110 H Lab Interpretation (test code = Abnormal 27665-3) [facility] 14:49:36 Test Item Value Reference Range Interpretation Comments POCT GLU (test code = 1588868589) 146 mg/dL 70-110 H Lab Interpretation (test code = Abnormal 82047-3) [facility] WITH [id number] 11:59:53 Test Item Value Reference Range Interpretation Comments [...] as normal/abnormal . HGB (test code = 9.8 g/dL 12.2-16.4 L 718-7) HCT (test code = 29.3 % 38.4-49.3 L 4544-3) MCV (test code = 93.0 fL 81.7-95.6 787-2) MCH (test code = 31.1 pg 26.1-32.7 785-6) MCHC (test code = 33.4 g/dL 31.2-35.0 786-4) RDW-SD (test code = 43.3 fL 38.5-51.6 87366-2) RDW-CV (test code = 12.8 % 12.1-15.4 788-0) PLT (test code = See_Comment L [Automated 777-3) message] The sy stem which generated this result transmitted reference range : 150 - 328 10*3/ ?L. The reference r dustin was not used to interpret this result as normal/abnormal . MPV (test code = 9.9 fL 9.8-13.0 72503-8) NRBC/100 WBC (test See_Comment [Automat ed code = 4273575514) message] The system which generated this result transmitted reference range : 0.0 - 10.0 /100 WBCs. The refer ence range was not u sed to interpret th is result as normal/abnormal . NRBC x10^3 (test code <0.01 See_Comment [Auto mated = 7007867855) message] The s ystem which generated this result transmitted reference range : 10*3/?L. The reference range was not used to interpret this result as normal/abnormal . GRAN MAT (NEUT) % 66.2 % (test code = 770-8) IMM GRAN % (test code 0.50 % = 2087628690) LYMPH % (test code = 20.0 % 736-9) MONO % (test code = 12.7 % 5905-5) EOS % (test code = 0.3 % 713-8) BASO % (test code = 0.3 % 706-2) GRAN MAT x10^3(ANC) 6.16 10*3/uL 1.99-6.95 (test code = 8767652885) IMM GRAN x10^3 (test 0.05 10*3/uL 0.00-0.06 code = 0658801498) LYMPH x10^3 (test code 1.86 10*3/uL 1.09-3.23 = 731-0) MONO x10^3 (test code 1.18 10*3/uL 0.36-1.02 H = 742-7) EOS x10^3 (test code = 0.03 10*3/uL 0.06-0.53 L 711-2) BASO x10^3 (test code 0.03 10*3/uL 0.01-0.09 = 704-7) GIANT PLATELETS (test Present See_Comment A [Auto mated code = 5908-9) message] The system which generated this result transmitted reference range : (none). The reference range was not used to interpret this result as normal/abnormal . Lab Interpretation Abnormal (test code = 35280-7) [facility] Hospital[facility]osphorus [id number] 11:54:57 Test Item Value Reference Range Interpretation Comments PHOSPHORUS (test code = 2040797317) 3.7 mg/dL 2.5-5.0 Lab Interpretation (test code = Normal 90039-3) [facility]OL[facility] PAN[facility] (NA, K, CL, CO2, GLUCOSE, BUN, CREATININE, CA)2021-02-21 11:54:56 Test Item Value Reference Range Interpretation Comments NA (test code = 136 mmol/L 135-145 5496002324) K (test code = 3.6 mmol/L 3.5-5.0 9778212574) CL (test code = 104 mmol/L 98-108 7471668013) CO2 TOTAL (test code = 23 mmol/L 23-31 1651245616) AGAP (test code = 2-16 1987113083) BUN (test code = 17 mg/dL 7-23 4924681000) GLUCOSE (test code = 176 mg/dL 70-110 H 5935558772) CREATININE (test code = 0.82 mg/dL 0.60-1.25 8965372113) CALCIUM (test code = 8.6 mg/dL 8.6-10.6 1442595585) eGFR (test code = mL/min/1.73m2 9115268299) ANU (test code = ANU) Association of Glomerular Filtration Rate (GFR) and Staging of Kidney Disease* + --+ --+ ------+| GFR (mL/min/1.73 m2) ?| With Kidney Damage ?| ?Without Kidney Damage+ --------+ --------+ +| ?>90 ?| ?Stage one ?| ? Normal ?+ ---+ ---+ -------+| ?60-89 ?| ?Stage two ?| ? Decreased GFR ? + --+ --+ ------+| ?30-59 ?| ?Stage three ?| ? Stage three ? + --+ --+ ------+| ?15-29 ?| ?Stage four ? | ? Stage four ?+ ---+ ---+ -------+| ?<15 (or dialysis) ? ?| ?Stage five ? | ? Stage five ?+ ---+ ---+ -------+ *Each stage assumes the associated GFR level has been in effect for at least three months. ?Stages 1 to 5, with or without kidney disease, indicate chronic kidney disease. Notes: Determination of stages one and two (with eGFR >59mL/min/1.73 m2) requires estimation of kidney damage for at least three months as defined by structural or functional abnormalities of the kidney, manifested by either:Pathological abnormalities or Markers of kidney damage (including abnormalities in the composition of the blood or urine or abnormalities in imaging tests). Lab Interpretation Abnormal (test code = 01966-6) [facility] (20541) (ALB,T.PRO,BILI T,BU/BC,ALT,AST,ALK PHOS)2021-02-21 11:54:56 Test Item Value Reference Range Interpretation Comments TOTAL BILI (test code = 4232273614) 0.6 mg/dL 0.1-1.1 BILI UNCON (test code = 8576581030) 0.3 mg/dL 0.1-1.1 BILI CONJ (test code = 9929699130) 0.0 mg/dL 0.0-0.3 T PROTEIN (test code = 7625184092) 7.4 g/dL 6.3-8.2 ALBUMIN (test code = 5484074685) 3.7 g/dL 3.5-5.0 ALK PHOS (test code = 8676700009) 87 U/L 34-122 ALTv (test code = 1742-6) 15 U/L 5-50 AST(SGOT) (test code = 9321854421) 28 U/L 13-40 Lab Interpretation (test code = Normal 57897-6) [facility] HospitalMagnesium [id number] 11:54:56 Test Item Value Reference Range Interpretation Comments MAGNESIUM (test code = 0567868386) 1.5 mg/dL 1.7-2.4 L Lab Interpretation (test code = Abnormal 37525-2) [facility] HospitalProthrombin Time / [id number] 11:47:31 Test Item Value Reference Range Interpretation Comments PROTIME PATIENT (test See_Comment H [Auto mated message] code = 5964-2) The system [employer] generated this result transmitted ref erence range: 10.1 - 1 2.6 Seconds. The reference range was not used to int erpret this result as normal/abnormal . INR (test code = 6301-6) Nor mal INR <1.1; Warfarin Therap eutic range 2.0 to 3. 0 or 2.5 to 3.5, dep ending upon the indica tions. Lab Interpretation (test Abnormal code = 97587-4) [facility] HospitalaPTT2021-07-23 11:47:31 Test Item Value Reference Range Interpretation Comments APTT Patient (test code = See_Comment [ Automated message] 3173-2) The system [employer] generated this result transmitted ref erence range: 26 - 36 Seconds. The re ference range was not u sed to interpret this result as normal/abnor mal. Lab Interpretation (test Normal code = 91374-3) [facility] HospitalLactic Acid Whole [id number] 11:28:22 Test Item Value Reference Range Interpretation Comments LACTIC ACID (test code = 1.83 mmol/L 0.50-2.20 5475151933) Lab Interpretation (test code = Normal 11821-3) [facility] HospitalCT ABDOMEN PELVIS W [id number] 03:45:35 Thickening of the distal gastric wall, with mild mucosal enhancement,possibly reflecting gastritis or peptic ulcer disease. 16 mm left adrenal nodule, indeterminate by density. Comparison with anyprior noncontrast CT of the chest or abdomen or follow-up with renal massprotocol imaging could be considered. RL: 460 AFC: [id number] Ordering physician: ELSA LANDRY Indication: Acute abdominal pain, fever COMPARISON: None TECHNIQUE: Axial images of the abdomen and pelvis are performed followingadministration of intravenous contrast material. Images were reformatted inthe coronal and sagittal plane. CT scan was performed accordingto ALARA(as low as reasonably achievable) policy. FINDINGS: The lung bases are clear. The liver, gallbladder, spleen, rightadrenal gland and pancreas are within normal limits. There is a 16 mm leftadrenal nodule, indeterminate by density. The right kidney is unremarkable.The left kidney is absent. There is no abdominal aortic aneurysm ordissection. There is thickening of the distal gastric wall, withmildmucosal enhancement. There is no free fluid in the pelvis. There is no bowel obstruction,widespread diverticulosis or acute diverticulitis. The appendix isidentified and within normal limits. ?Bonewindows through the abdomen andpelvis demonstrate no osseous destructive lesion. The patient is statuspost bilateral hip arthroplasty. [facility], Radiant Results Inft User - 02/20/2021 10:46 PM CDT Ordering physician: ELSA LANDRYIndication: Acute abdominal pain, feverCOMPARISON: NoneTECHNIQUE: Axial images of the abdomen and pelvis are performed followingadministration of intravenous contrast material. Images were reformatted inthe coronal and sagittal plane. CT scan was performed according to ALARA(as low as reasonably achievable) policy.FINDINGS: The lung bases are clear. The liver, gallbladder, spleen, rightadrenal gland and pancreas are within normal limits. There is a 16 mm leftadrenal nodule, indeterminate by density. The right kidney is unremarkable.The left kidney is absent. There is no abdominal aortic aneurysm ordissection. There is thickening of the distal gastric wall, with mildmucosal enhancement.There is no free fluid in the pelvis. There is no bowel obstruction,widespread diverticulosis or acute diverticulitis. The appendix isidentified and within normal limits. Bone windows through the abdomen andpelvis demonstrate noosseous destructive lesion. The patient is statuspost bilateral hip arthroplasty.IMPRESSIONThickening of the distal gastric wall, with mild mucosal enhancement,possibly reflecting gastritis or peptic ul cer disease.16 mm left adrenal nodule, indeterminate by density. Comparison with anyprior noncontrast CT of the chest or abdomen or follow-up with renal massprotocol imaging could be considered.RL: 460AFC: [id number] [facility] HospitalXR CHEST 1 [id number] 03:38:53No radiographic evidence for acute cardiopulmonary abnormality. RL: 111 EXAMINATION:XR CHEST 1 VW ORDERING PHYSICIAN: ELSA KAHN HISTORY: Fever ; COMPARISON:Chest one view dated 01/14/2021 TECHNIQUE:Single frontal view ofthe chest FINDINGS:Lungs are well expanded. No pulmonary consolidation or confluentpulmonary opacity. No pneumothorax or pleural effusion. Cardiomediastinalsilhouette is within normal limits. Degenerative changes of the thoracicspine. [facility], Radiant Results Inft User - 02/20/2021 10:39 PM CDTFormattingof this note might be different from the original.EXAMINATION:XR CHEST 1 VWORDERING PHYSICIAN: WAKILI S YARIMACLINICAL HISTORY: Fever ;COMPARISON:Chest one view dated 01/14/2021TECHNIQUE:Single frontal view of the chestFINDINGS:Lungs are well expanded. No pulmonary consolidation or confluentpulmonary opacity. No pneumothorax or pleural effusion. Cardiomediastinalsilhouette is within normal limits. Degenerative changes of the thoracicspine.IMPRESSIONNo radiographic evidence for acute cardiopulmonary abnormality.RL: 111 [facility] HospitalTRFORMERLY [facility]ENTERNIN [id number] 01:47:17 Test Item Value Reference Interpretation Comments Range TROPONIN I (test 0.030 ng/mL See_Comment [Automated code = 9253019050) message] The system which generated this result transmitted reference range : <=0.034. The reference range was not used to interpret this result as normal/abnormal . ANU (test code = Reference (Normal) ANU) Range (defined by the 99th percentile reference limit): <= 0.034 ng/mL Note: Cardiac troponin begins to rise 3-4 hours after the onset of ischemia. Repeat in 4-6 hours if the sample was drawn within 3-4 hours of the onset of the symptom and found normal. Diagnosis of myocardial injury is made with acute changes in cTn concentrations with at least one serial sample above the 99th percentile upper reference limit (URL), taken together with the patient's clinical presentation. Biotin has been reported to cause a negative bias, interpret results relative to patient's use of biotin. Lab Interpretation Normal (test code = 61879-1) [facility] HospitalURINALYSIS2021-07-23 01:47:06 Test Item Value Reference Range Interpretation Comments APPEARANCE (test code = Cloudy Clear A 5415455656) COLOR (test code = Dona Yellow A 7209394570) PH (test code = 4.8-8.0 1718242261) SP GRAVITY (test code = 1.003-1.030 2198294004) GLU U QUAL (test code = Normal Normal 8594464197) BLOOD (test code = 2+ Negative A 5825704591) KETONES (test code = Negative Negative 1810464218) PROTEIN (test code = 100 mg/dL Negative A 2887-8) UROBILIN (test code = Normal Normal 5909069294) BILIRUBIN (test code = Negative Negative 1154961784) NITRITE (test code = Negative Negative 9954334226) LEUK MIGDALIA (test code = 250/uL Negative A 7897491903) RBC/HPF (test code = See_Comment H [Autom ated message] 9902128515) The system [employer] generated this result transmit elaine reference range : 0 - 3 HPF. The refe rence range was not u sed to interpret th is result as normal/abnormal . WBC/HPF (test code = >182 See_Comment H [Autom ated message] 3179137338) The system [employer] generated this result transmit elaine reference range : 0 - 5 HPF. The refe rence range was not u sed to interpret th is result as normal/abnormal . BACTERIA (test code = Many Negative A 4202144546) AMORPHOUS (test code = Few Rare HPF A 0381370029) WBC CLUMPS (test code = See_Comment H [Au tomated message] 7776694687) The system [employer] generated this result transmit elaine reference range : <=1 HPF. The refere nce range was not u sed to interpret th is result as normal/abnormal . Lab Interpretation (test Abnormal code = 77088-1) [facility] HospitalHEPATIC FUNCTION PANEL (94237) (ALB,T.PRO,BILI T,BU/BC,ALT,AST,ALK PHOS)2021-02-21 01:36:37 Test Item Value Reference Range Interpretation Comments TOTAL BILI (test code = 7965444380) 0.6 mg/dL 0.1-1.1 BILI UNCON (test code = 3093563179) 0.4 mg/dL 0.1-1.1 BILI CONJ (test code = 9335746998) 0.0 mg/dL 0.0-0.3 T PROTEIN (test code = 8315415861) 9.2 g/dL 6.3-8.2 H ALBUMIN (test code = 0667011422) 4.7 g/dL 3.5-5.0 ALK PHOS (test code = 6214292703) 126 U/L 34-122 H ALTv (test code = 1742-6) 18 U/L 5-50 AST(SGOT) (test code = 4310044847) 38 U/L 13-40 Lab Interpretation (test code = Abnormal 96019-4) [facility] HospitalCOM. METABOLIC PANEL (21661)2021-02-21 01:36:36 Test Item Value Reference Range Interpretation Comments NA (test code = 138 mmol/L 135-145 4494703452) K (test code = 4.4 mmol/L 3.5-5.0 5416253076) CL (test code = 100 mmol/L 98-108 6979155792) CO2 TOTAL (test code = 25 mmol/L 23-31 3334723207) AGAP (test code = 2-16 1463235820) BUN (test code = 19 mg/dL 7-23 8575588123) GLUCOSE (test code = 195 mg/dL 70-110 H 2525506371) CREATININE (test code = 0.90 mg/dL 0.60-1.25 9436453754) TOTAL BILI (test code = 0.6 mg/dL 0.1-1.8 8423352637) CALCIUM (test code = 9.8 mg/dL 8.6-10.6 9049592974) T PROTEIN (test code = 9.2 g/dL 6.3-8.2 H 1398286034) ALBUMIN (test code = 4.7 g/dL 3.5-5.0 9115257531) ALK PHOS (test code = 126 U/L 34-122 H 8407741548) ALTv (test code = 18 U/L 5-50 1742-6) AST(SGOT) (test code = 38 U/L 13-40 4725783109) eGFR (test code = mL/min/1.73m2 4512592436) ANU (test code = ANU) Association of Glomerular Filtration Rate (GFR) and Staging of Kidney Disease* + --+ --+ ------+| GFR (mL/min/1.73 m2) ?| With Kidney Damage ?| ?Without Kidney Damage+ --------+ --------+ +| ?>90 ?| ?Stage one ?| ? Normal ?+ ---+ ---+ -------+| ?60-89 ?| ?Stage two ?| ? Decreased GFR ? + --+ --+ ------+| ?30-59 ?| ?Stage three ?| ? Stage three ? + --+ --+ ------+| ?15-29 ?| ?Stage four ? | ? Stage four ?+ ---+ ---+ -------+| ?<15 (or dialysis) ? ?| ?Stage five ? | ? Stage five ?+ ---+ ---+ -------+ *Each stage assumes the associated GFR level has been in effect for at least three months. ?Stages 1 to 5, with or without kidney disease, indicate chronic kidney disease. Notes: Determination of stages one and two (with eGFR >59mL/min/1.73 m2) requires estimation of kidney damage for at least three months as defined by structural or functional abnormalities of the kidney, manifested by either:Pathological abnormalities or Markers of kidney damage (including abnormalities in the composition of the blood or urine or abnormalities in imaging tests). Lab Interpretation Abnormal (test code = 64199-6) [facility] HospitalLIPASE2021-07-23 01:36:16 Test Item Value Reference Range Interpretation Comments LIPASE (test code = 7656146256) 50 U/L 0-220 Lab Interpretation (test code = Normal 45466-2) [facility] HospitalCOVID-19 (ID NOW RAPID TESTING)2021-02-21 01:35:20 Test Item Value Reference Range Interpretation Comments SARS-CoV-2 Rapid ID NOW Not Detected Not Detected (test code = 69964-0) ANU (test code = ANU) ID NOW COVID-19 Assay is an isothermal nucleic acid amplification test intended for the qualitative detection of nucleic acid from SARS-CoV-2 viral RNA in nasopharyngeal (TECHNICAL STENOGRAPHER) specimens. It is used under Emergency Use Authorization (EUA) by FDA. The limit of detection (LOD) of the assay is 125 Genome Equivalents/mL. A positive result is indicative of the presence of SARS-CoV-2 RNA. ?Clinical correlation with patient history and other diagnostic information is necessary to determine patient infection status. A negative (Not Detected) result does not preclude SARS-CoV-2 infection. In patients with clinical symptoms and other tests that are consistent with SARS-CoV-2 infection, negative results should be treated as presumptive negative and a new specimen should be tested with alternative PCR molecular test. Invalid: Please collect a new specimen for repeat patient testing if clinically indicated. Lab Interpretation Normal (test code = 19927-8) [facility] HospitalCB WITH [id number] 01:28:19 Test Item Value Reference Range Interpretation Comments [...] as normal/abnormal . HGB (test code = 11.5 g/dL 12.2-16.4 L 718-7) HCT (test code = 35.2 % 38.4-49.3 L 4544-3) MCV (test code = 94.6 fL 81.7-95.6 787-2) MCH (test code = 30.9 pg 26.1-32.7 785-6) MCHC (test code = 32.7 g/dL 31.2-35.0 786-4) RDW-SD (test code = 43.2 fL 38.5-51.6 25310-9) RDW-CV (test code = 12.5 % 12.1-15.4 788-0) PLT (test code = See_Comment [Automated 777-3) message] The sy stem which generated this result transmitted reference range : 150 - 328 10*3/ ?L. The reference r dustin was not used to interpret this result as normal/abnormal . MPV (test code = 10.1 fL 9.8-13.0 08828-6) NRBC/100 WBC (test See_Comment [Automat ed code = 1851752820) message] The system which generated this result transmitted reference range : 0.0 - 10.0 /100 WBCs. The refer ence range was not u sed to interpret th is result as normal/abnormal . NRBC x10^3 (test code <0.01 See_Comment [Auto mated = 8624445351) message] The s ystem which generated this result transmitted reference range : 10*3/?L. The reference range was not used to interpret this result as normal/abnormal . GRAN MAT (NEUT) % 78.2 % (test code = 770-8) IMM GRAN % (test code 0.60 % = 6036829790) LYMPH % (test code = 11.1 % 736-9) MONO % (test code = 9.2 % 5905-5) EOS % (test code = 0.4 % 713-8) BASO % (test code = 0.5 % 706-2) GRAN MAT x10^3(ANC) 7.80 10*3/uL 1.99-6.95 H (test code = 6521975990) IMM GRAN x10^3 (test 0.06 10*3/uL 0.00-0.06 code = 2078749540) LYMPH x10^3 (test code 1.11 10*3/uL 1.09-3.23 = 731-0) MONO x10^3 (test code 0.92 10*3/uL 0.36-1.02 = 742-7) EOS x10^3 (test code = 0.04 10*3/uL 0.06-0.53 L 711-2) BASO x10^3 (test code 0.05 10*3/uL 0.01-0.09 = 704-7) Lab Interpretation Abnormal (test code = 37323-5) [facility] HospitalLactic Acid Whole [id number] 01:04:41 Test Item Value Reference Range Interpretation Comments LACTIC ACID (test code = 2.15 mmol/L 0.50-2.20 1074870380) Lab Interpretation (test code = Normal 31323-6) [facility] HospitalCT Chest Wo Pxnrqfuj1054-21-83 18:55:19 EXAMINATION:CT CHEST WO CONTRAST CLINICAL HISTORY:R06.02 [...] abnormalities seen. IMPRESSION:No acute cardiopulmonary disease. [id number] Interface, Radiology Results Incoming - 11/07/2020 1:58 [...] finding.6.No acute skeletal abnormalities seen.IMPRESSION:No acute cardiopulmonary disease.[id number] 2019-10-02 16:50:00 Test Item Value Reference Range Interpretation Comments GLUCOSE BEDSIDE TESTING (test code = 98 mg/dL 70-110 N GLUBED) - XR FLUOROSCOPY 0-60 [id number] 16:05:00 Name: ANABELA RUTH [facility] : 1955 Age/S: 64 / M [address] Unit #: [id number] Loc: [place] [address] Phys: Trever Calvillo MD Acct: [id number] Dis Date: Status: REG [facility] PHONE #: [phone] Exam Date: 10/02/2019 1500 FAX #: Reason: LEFT FEMUR JUN PLATE REMOVAL EXAMS: CPT: [id number] XR FLUOROSCOPY 0-60 MIN 69565 Fluoro Time: 17 SEC DAP (Gy m2): [...] PAGE 1 Signed Report Name: ANABELA RUTH [facility] : 1955 Age/S: 64 / M [address] Unit #: [id number] Loc: [place] [address] Phys: Trever Calvillo MD Acct: [id number] Dis Date: Status: REG [facility] PHONE #: [phone] Exam Date: 10/02/2019 1500 FAX #: Reason: LEFT FEMUR JUN PLATE REMOVAL EXAMS: CPT: [id number] XR FLUOROSCOPY 0-60 MIN 33767 Fluoro Time: 17 SEC DAP (Gy m2): Air Kerma (mGy): <Continued> Technologist: Raine Vera, RT(R) Trnscb Date/Time: 10/02/2019 (160) [email or web address] Orig Print D/T: S: 10/02/2019 (1603) PAGE 2 Signed Report UA RFLX MICR CULT IF [id number] 08:47:00 Test Item Value Reference Range Interpretation [...] PRE OP EVALUA RFLX MICR CULT IF [id number] 08:46:00 Test Item Value Reference Range Interpretation [...] Dysuria/FrequencySpec Comments: INDICATION: PRE OP EVALBASIC METABOLIC [id number] 07:29:00 Test Item Value Reference Range Interpretation [...] CA) 9.1 MG/DL 8.5-10.1 N VITAMIN D [id number] 07:29:00 Test Item Value Reference Range Interpretation Comments VITAMIN D 14.1 ng/mL 30.0-100.0 A Vitamin D defic iency has 25-HYDROXY (test been define d by the code = VITD25) [place] of edicine and an Endocrine So ciety practice guidel ine as alevel of serum 25-OH vitamin D less than 20 ng/mL (1,2).The Endocrine Society went on to further define vitamin Dinsufficiency as a level between 21 and 29 ng/mL (2).1. IOM (Ins titute of Medicine). 2010 . Dietary reference int akes for calcium and D. [place]: [employer] .2. Sailaja MF, Antonio NC, Oscar-Jessica i MOSER, et al. Evaluatio n, treatment, and prevention of vitamin D deficiency: an Endocrine Society clinica l practice guideline. CONRAD EM. 2010; 96(7):1911-30.P erformed At: [facility] [id number] [place], [place] [id number] Kyle L MD Ph:[phone] BASIC METABOLIC [id number] 07:08:00 Test Item Value Reference Range Interpretation [...] CA) 9.1 MG/DL 8.5-10.1 N VITAMIN D [id number] 07:08:00 Test Item Value Reference Range Interpretation Comments VITAMIN D 25-HYDROXY (test code = 14.1 VITD25) CBC W/AUTO [id number] 14:54:00 Test Item Value Reference Range Interpretation [...] code = NO DIFF/SCN CRITERIA MDIFF) SED [id number] 14:54:00 Test Item Value Reference Range Interpretation Comments SED RATE (test code = SEDW) 80 mm/hr 0-20 H - XR CHEST 2 [id number] 14:38:00 Name: ANABELA RUTH [facility] : 1955 Age/S: 64 / M [id number] Unit #: [id number] Loc: [place] [address] Phys: Trever Calvillo MD Acct: [id number] Dis Date: Status: PRE [facility] PHONE #: [phone] Exam Date: 09/19/2019 1400 FAX #: Reason: PREOP EXAMS: CPT: [id number] XR CHEST 2 V 94197 Fluoro Time: DAP (Gy m2): Air Kerma [...] PAGE 1 Signed Report Name: ANABELA RUTH [facility] : 1955 Age/S: 64 / M [id number] Unit #: [id number] Loc: [place] [address] Phys: Trever Calvillo MD Acct: [id number] Dis Date: Status: PRE [facility] PHONE #: [phone] Exam Date: 09/19/2019 1400 FAX #: Reason: PREOP EXAMS: CPT: [id number] XR CHEST 2 V [id number] Fluoro Time: DAP (Gy m2): Air Kerma (mGy): <Continued> Technologist: Raine Vera, RT(R) Trnscb Date/Time: 09/19/2019 (2592) [email or web address] Orig Print D/T: S: 09/19/2019 (2914) PAGE 2 Signed ReportC REACTIVE [id number] 13:53:00 Test Item Value Reference Range Interpretation Comments C REACTIVE PROTEIN (test code = 0.629 MG/DL 0.000-0.3 H CRP) BASIC METABOLIC [id number] 13:52:00 Test Item Value Reference Range Interpretation [...] CA) 9.1 MG/DL 8.5-10.1 N VITAMIN D [id number] 13:52:00 Test Item Value Reference Range Interpretation Comments VITAMIN D 25-HYDROXY (test code = VITD25) PROTHROMBIN [id number] 13:42:00 Test Item Value Reference Range Interpretation Comments PT PATIENT (test code = PTP) 13.2 SECONDS 9.3-12.9 H INTERNATIONAL NORMAL RATIO 1.16 INR Unit 0.8-1.2 N (test code = INR) THROMBOPLASTIN TIME [id number] 13:42:00 Test Item Value Reference Range Interpretation Comments THROMBOPLASTIN TIME PARTIAL 34.7 SECONDS 26-35 N (test code = PTT) CBC W/AUTO [id number] 13:33:00 Test Item Value Reference Range Interpretation [...] code = NO DIFF/SCN CRITERIA MDIFF) SED [id number] 13:33:00 Test Item Value Reference Range Interpretation Comments SED RATE (test code = SEDW) mm/hr 0-20 - CT LOWER EXTRM W/O C [id number] 11:45:00 Name: ANABELA RUTH [facility] : 1955 Age/S: 64 / M [id number] Unit #: [id number] Loc: [place] [address] Phys: Trever Calvillo MD Acct: [id number] Dis Date: Status: PRE CLI PHONE #: [phone] Exam Date: 09/19/2019 1100 FAX #: Reason: PAIN LFT KNEE EXAMS: CPT: [id number] [place] EXTRM W/[place] [address] EXAM: - CTLOWER EXTRM W/O C LT [...] 1 Signed Report (CONTINUED) Name: ANABELA RUTH [facility] : 1955 Age/S: 64 / M [id number] Unit #: [id number] Loc: [place] [address] Phys: Trever Calvillo MD Acct: [id number] Dis Date: Status: PRE CLI PHONE #: [phone] Exam Date: 09/19/2019 1100 FAX #: Reason: PAIN LFT KNEE EXAMS: CPT: [id number] CT LOWER EXTRM W/[place] [address] <Continued> at 1145 Reported and signed by: Oswald Devi MD CC: Trever Calvillo MD; Kiran Loera MD Technologist:Desire Hernandez, RT(R)(MR) CTDI: DLP: Trnscb Date/Time: 09/19/2019 (7259) [email or web address] Orig Print D/T: S: 09/19/2019 (3230) PAGE 2 Signed ReportXR CHEST 2 [id number] 01:04:06 No acute intrathoracic abnormality.* * * * * * * * ORIGINAL REPORT * * * * * * * *PROCEDURE: XR CHEST 2 VW CLINICAL INDICATION: dyspnea COMPARISON: 09/20/2017 FINDINGS: The lungs are clear, no infiltrate or nodule seen. No pleural effusion or pneumothorax is seen. The cardiomediastinal silhouette is normal. No acute bony abnormality. Mild arthritic changes throughout spine andshoulders. [facility], Radiant Results Inft User - 02/23/2019 8:04 PM CDT* * * * * * * * ORIGINAL REPORT * * * * * * * *PROCEDURE: XR CHEST 2 VWCLINICAL INDICATION: dyspnea COMPARISON: 09/20/2017FINDINGS:The lungs are clear, no infiltrate or nodule seen. No pleural effusion or pneumothorax is seen. The cardiomediastinal silhouetteis normal. No acute bony abnormality. Mild arthritic changes throughout spine andshoulders.IMPRESSIONNo acute intrathoracic abnormality.[facility]
[2021-09-13] MEDS ORDERED: NA CHLORIDE 0.9% 500 ML ONE ×2 (01:20→04:48)
[2021-09-13 01:37] LABS: Absolute Lymphocytes (CBC) 1.5 K/uL (0.7-4.9); Hematocrit 31.5 % (39.6-49.0); Lymphocytes % 28.7 % (15.3-44.8); MPV 9.3 fL (7.6-11.3); RBC Red Blood Cell Count 3.33 M/uL (4.33-5.43)
[2021-09-13] MEDS ORDERED: ONDANSETRON 4 MG/2 ML VIAL ONE (02:18)
[2021-09-13] MEDS ORDERED: MORPHINE 4 MG/ML SYR ONE (02:18)
[2021-09-13 02:20] LABS: Albumin 2.7 g/dL (3.4-5.0); Bilirubin Direct 0.1 mg/dL (0-0.2); Bilirubin Total 0.4 mg/dL (0.2-1.0); Potassium 4.1 mmol/L (3.5-5.1); Protein, Total 8.2 g/dL (6.4-8.2)
[2021-09-13 02:57] LABS: Urine Blood 3+ (Negative); Urine Glucose Negative (Negative); Urine Protein 3+ (Negative); Urine Specific Gravity 1.025 (1.005-1.030); Urine pH 5.5 (5.0-7.0)
[2021-09-13 03:08] LABS: Urine Bacteria LOADED /HPF (NONE SEEN); Urine Mucus 1+ /HPF (NONE SEEN); Urine RBC LOADED /HPF (NONE SEEN)
[2021-09-13] MEDS ORDERED: CEFTRIAXONE 1000 MG/VIAL ONE ×3 (03:26→21:36)
[2021-09-13] MEDS ORDERED: NA CHLORIDE 0.9% 50 ML ONE ×3 (03:27→21:49)
[2021-09-13] MEDS ORDERED: MORPHINE 4 MG/ML SYR IV PRN (03:51)
[2021-09-13] MEDS ORDERED: ACETAMINOPHEN 500 MG TAB PO PRN (03:51)
[2021-09-13] MEDS ORDERED: ONDANSETRON 4 MG/2 ML VIAL IV PRN (03:51)
[2021-09-13] MEDS ORDERED: D50W 25 GM/50 ML SYRINGE IV PRN (03:54)
[2021-09-13] MEDS ORDERED: GLUCAGON 1 MG/VIAL IM PRN (03:54)
[2021-09-13] MEDS ORDERED: NA CHLORIDE 0.9% 1,000 ML IV SCH (04:00)
--- NOTE | 2021-09-13 04:05 | EDPHYS ---
Physician Documentation [facility] Name: David Lopez Age: 66 yrs Sex: Male : 1955 Arrival Date: 09/12/2021 Time: 23:53 Bed 5 Private MD: ED Physician Nemesio Lara HPI: 09/13 01:00 This 66 yrs old Male presents to ER via EMS with complaints of Dark Urine. cp 01:00 The patient presents with urinary symptoms, dysuria, dark colored urine, fever. cp 01:00 Onset: The symptoms/episode began/occurred 18 day(s) ago. cp 01:00 Associated signs and symptoms: Pertinent positives: abdominal pain, Pertinent cp negatives: constipation, diarrhea, vomiting. Severity of symptoms: in the emergency department the symptoms are unchanged, despite home interventions. Historical: - Allergies: 09/12 23:59 No Known Allergies; vc1 - Home Meds: 23:59 aspirin 81 mg Oral chew 1 tab once daily [Active]; atorvastatin 80 mg Oral tab 1 tab vc1 once daily [Active]; gabapentin 600 mg Oral tab 1 tab 3 times per day [Active]; Humulin R [Active]; venlafaxine 75 mg Oral cp24 1 cap once daily [Active]; metformin 500 mg Oral Tb24 1 tab 2 times per day [Active]; buprenorphine HCl buccal 2 times per day [Active]; - PMHx: 23:59 Diabetes - NIDDM; Hypertension; vc1 09/13 00:50 CVA; Parkinsons; vc1 - PSHx: 09/12 23:59 hip replacement; vc1 - Immunization history:: Adult Immunizations up to date, Client reports receiving the 2nd dose of the Covid vaccine, Pneumococcal vaccine is up to date, Flu vaccine is up to date. - Social history:: Smoking status: Patient denies any tobacco usage or history of. ROS: 09/13 01:05 Constitutional: Negative for body aches, chills, fever, poor PO intake. cp 01:05 Respiratory: Negative for cough, shortness of breath, wheezing. cp 01:05 Abdomen/GI: Positive for abdominal pain. 01:05 : Positive for dark colored urine. 01:05 Neuro: Negative for altered mental status, headache, weakness. 01:05 All other systems are negative. Exam: 01:10 Constitutional: The patient appears in no acute distress, alert, awake, cp non-diaphoretic, non-toxic, well developed, well nourished. 01:10 Head/Face: Normocephalic, atraumatic. cp 01:10 Eyes: Periorbital structures: appear normal, Conjunctiva: normal, no exudate, no injection, Lids and lashes: appear normal, bilaterally. 01:10 ENT: External ear(s): are unremarkable, Nose: is normal, Mouth: Lips: moist, Oral mucosa: moist, Posterior pharynx: Airway: no evidence of obstruction, patent. 01:10 Neck: ROM/movement: is normal, is supple, without pain, no range of motions limitations. 01:10 Chest/axilla: Inspection: normal. 01:10 Cardiovascular: Rate: normal. 01:10 Respiratory: the patient does not display signs of respiratory distress, Respirations: normal, no use of accessory muscles, no retractions, labored breathing, is not present, Breath sounds: are clear throughout, no decreased breath sounds, no stridor, no wheezing. 01:10 Abdomen/GI: Inspection: distension, that is mild, Bowel sounds: active, all quadrants, Palpation: soft, in all quadrants, moderate abdominal tenderness, in the right lower quadrant and left lower quadrant, rebound tenderness, is not appreciated, involuntary guarding, is not appreciated. 01:10 Back: pain, is absent, ROM is normal. 01:10 Neuro: Orientation: to person, place \\T\\ time. Mentation: is normal. Vital Signs: 00:46 BP 132 / 78; Pulse 74; Resp 20; Temp 97.9; Pulse Ox 98% on R/A; Weight 74.39 kg; Height vc1 5 ft. 4 in. (162.56 cm); 02:10 BP 129 / 57; Pulse 69; Resp 19; Pulse Ox 99% ; ll3 00:46 Body Mass Index 28.15 (74.39 kg, 162.56 cm) vc1 MDM: 00:54 Patient medically screened. cp 01:30 Differential diagnosis: appendicitis, UTI, urinary retention, prostatitis, urethritis, cp sepsis, bowel obstruction. 03:30 Data reviewed: vital signs, nurses notes, lab test result(s), radiologic studies, CT cp scan, and as a result, I will admit patient. 03:45 Counseling: I had a detailed discussion with the patient and/or guardian regarding: the cp historical points, exam findings, and any diagnostic results supporting the discharge/admit diagnosis, lab results, radiology results, the need for further work-up and treatment in the hospital. 03:45 Physician consultation: Conrado NARVAEZ was called at 03:45, was contacted at 03:45, regarding admission, to the medical/surgical unit. patient's condition. 09/13 00:54 Order name: Basic Metabolic Panel cp 09/13 00:54 Order name: CBC with Diff cp 09/13 00:54 Order name: Hepatic Function cp 09/13 00:54 Order name: Lipase; Complete Time: 02:21 cp 09/13 00:54 Order name: CK; Complete Time: 02:21 cp 09/13 00:54 Order name: Urine Microscopic Only; Complete Time: 03:16 cp 02 03:16 Interpretation: Normal except: UWBC 5-10; URBC LOADED; UBACT LOADED. cp 02 00:54 Order name: Basic Metabolic Panel; Complete Time: 02:21 EDMS 02 02:21 Interpretation: Normal except: CL 109; GLUC 306; GFR 68. cp 02 00:54 Order name: CBC with Automated Diff; Complete Time: 02:18 EDMS 02 02:18 Interpretation: Normal except: RBC 3.33; HGB 10.0; HCT 31.5; MCHC 31.9; PLT 128. cp 02 00:54 Order name: Liver (Hepatic) Function; Complete Time: 02:21 EDMS 02 02:22 Interpretation: Normal except: AST 63; ALK 173; ALB 2.7; GLOB 5.5. cp 02 02:53 Order name: Urine Culture cp 09/13 02:57 Order name: Urine Dipstick-Ancillary; Complete Time: 03:16 EDMS 02 03:16 Interpretation: Normal except: UKET Trace; UBLD 3+; UPROT 3+; U NIT Positive; UESTR cp Trace. 02 03:32 Order name: Procalcitonin cp 09/13 03:32 Order name: Lactate cp 09/13 03:32 Order name: Procalcitonin EDMS 09/13 02:22 Order name: CT Stone Protocol 09/13 03:32 Order name: Lactate EDMS 09/13 03:34 Order name: Blood Culture Adult (2) cp 09/13 03:55 Order name: Basic Metabolic Panel EDMS 09/13 03:55 Order name: Basic Metabolic Panel EDMS 09/13 03:55 Order name: CBC with Automated Diff EDMS 09/13 03:55 Order name: CBC with Automated Diff EDMS 09/13 03:55 Order name: Lipase EDMS 09/13 03:55 Order name: Lipase EDMS 09/13 03:55 Order name: Liver (Hepatic) Function EDMS 09/13 03:55 Order name: Liver (Hepatic) Function EDMS 09/13 04:24 Order name: COVID-19/FLU A+B/RSV (Document "Date of Onset" if Symptomatic) cs9 09/13 05:50 Order name: COVID-19/FLU A+B/RSV EDMS 09/13 08:12 Order name: Glucose, Ancillary Testing EDSC 09/13 00:54 Order name: IV Saline Lock; Complete Time: 01:16 cp 09/13 00:54 Order name: Labs collected and sent; Complete Time: 01:16 cp 09/13 00:54 Order name: Urine Dipstick-Ancillary (obtain specimen); Complete Time: 03:30 cp 09/13 04:04 Order name: 60g Consistent Carbohydrate (ADA ) EDMS Administered Medications: 01:26 Drug: NS 0.9% 500 ml Route: IV; Rate: 500 ml/hr; Site: left forearm; st1 02:33 Follow up: Response: No adverse reaction; IV Status: Completed infusion; IV Intake: ll3 500ml 02:28 Drug: Zofran (Ondansetron) 4 mg Route: IVP; Site: left antecubital; ll3 04:49 Follow up: Response: No adverse reaction; Marked relief of symptoms vc1 02:30 Drug: morphine 4 mg Route: IVP; Site: left antecubital; ll3 04:49 Follow up: Response: No adverse reaction; Pain is decreased vc1 03:29 Drug: Rocephin - (cefTRIAXone) 1 grams Route: IVPB; Infused Over: 30 mins; Site: left vc1 antecubital; 04:48 Drug: NS 0.9% 500 ml Route: IV; Rate: bolus; Site: left wrist; vc1 Disposition Summary: 09/13/21 04:04 Hospitalization Ordered Hospitalization Status: Inpatient Admission cp Provider: Reshma Byrd cp Condition: Stable cp Problem: new cp Symptoms: have improved cp Bed/Room Type: Standard cp Location: Telemetry/MedSurg (Inpatient)(09/13/21 06:51) mw Room Assignment: 216(09/13/21 09:18) dw Diagnosis - UTI/ Urinary tract infection, site not specified cp Forms: - Medication Reconciliation Form cp - SBAR form cp Signatures: Dispatcher [employer] EDMS Anali Weathers RN RN Beba Ruano RN RN Forest Rascon PA PA cp Lissett Grant Lynsea RN RN ll3 Amy Fields RN RN st1 Sharri Rosado RN RN vc1 Corrections: (The following items were deleted from the chart) 04:03 03:55 NPO ordered. EDMS EDMS 06:42 04:04 cp eb 06:51 04:04 Telemetry/MedSurg (Inpatient) cp mw 06:51 06:42 216 eb mw 09:18 06:51 mw dw
--- NOTE | 2021-09-13 04:05 | ER ---
Nurse's Notes [facility] Name: David Lopez Age: 66 yrs Sex: Male : 1955 Arrival Date: 09/12/2021 Time: 23:53 Bed 5 Private MD: Diagnosis: UTI/ Urinary tract infection, site not specified Presentation: 09/12 23:58 Chief complaint: EMS states: They called us for dark urine with blood in it. He said vc1 he's been urinating more and it hurts to pee. Normally a water drinker but has been drinking cokes more often. 09/13 00:46 Chief complaint: Patient states: I have been having burning when I pee and peeing more vc1 often. This has been like this for about 18 days. Coronavirus screen: Vaccine status: Patient reports receiving the 2nd dose of the covid vaccine. no booster, Moderna At this time, the client does not indicate any symptoms associated with coronavirus-19. Ebola Screen: No symptoms or risks identified at this time. Initial Sepsis Screen: Does the patient meet any 2 criteria? No. Patient's initial sepsis screen is negative. Does the patient have a suspected source of infection? Yes: Dysuria/Frequency/Urgency/UTI No. Patient's initial sepsis screen is negative. Risk Assessment: Do you want to hurt yourself or someone else? Patient reports no desire to harm self or others. Onset of symptoms is unknown. 00:46 Method Of Arrival: EMS: [facility] vc1 00:46 Acuity: LEANNA 3 vc1 Triage Assessment: 00:46 General: Appears in no apparent distress. comfortable, Behavior is calm, flat. Neuro: vc1 Level of Consciousness is awake, alert, obeys commands, Oriented to person, place, time, situation, Appropriate for age Weakness. : Reports burning with urination, urinary frequency, since 18 days. Historical: - Allergies: 09/12 23:59 No Known Allergies; vc1 - Home Meds: 23:59 aspirin 81 mg Oral chew 1 tab once daily [Active]; atorvastatin 80 mg Oral tab 1 tab vc1 once daily [Active]; gabapentin 600 mg Oral tab 1 tab 3 times per day [Active]; Humulin R [Active]; venlafaxine 75 mg Oral cp24 1 cap once daily [Active]; metformin 500 mg Oral Tb24 1 tab 2 times per day [Active]; buprenorphine HCl buccal 2 times per day [Active]; - PMHx: 23:59 Diabetes - NIDDM; Hypertension; vc1 09/13 00:50 CVA; Parkinsons; vc1 - PSHx: 09/12 23:59 hip replacement; vc1 - Immunization history:: Adult Immunizations up to date, Client reports receiving the 2nd dose of the Covid vaccine, Pneumococcal vaccine is up to date, Flu vaccine is up to date. - Social history:: Smoking status: Patient denies any tobacco usage or history of. Screenin/12 00:47 Abuse screen: Denies threats or abuse. Nutritional screening: No deficits noted. st1 Tuberculosis screening: No symptoms or risk factors identified. Fall Risk None identified. No fall in past 12 months (0 pts). Secondary diagnosis (15 points) CVA, IV access (20 points). Ambulatory Aid- Crutches/Cane/Walker (15 pts). Gait- Impaired (20 pts.). Mental Status- Oriented to own ability (0 pts). Total Bassett Fall Scale indicates High Risk Score (45 or more points). Fall prevention measures have been instituted. Side Rails Up X 2 Placed Close to Nursing Station Frequent Obs/Assessments Occuring As available patient and family educated on Fall Prevention Program and Strategies. Assessment: 00:46 Reassessment: Patient appears in no apparent distress at this time. Patient is alert, st1 oriented x 3, equal unlabored respirations, skin warm/dry/pink. the patient is having abdominal pain upon assessment. General: Appears in no apparent distress. uncomfortable, well groomed, well developed, Behavior is calm, cooperative. Cardiovascular: No deficits noted. Respiratory: No deficits noted. Musculoskeletal: No deficits noted. 00:47 : Reports pain with urination. st1 02:17 Reassessment: Pt requested a "pain shot", stated pain is in lower back and is a 7/10 on ll3 a pain scale of 0/10, SONIDO NARVAEZ, notified, gave VO orders for 4 mg of Zofran and 4 mg of Morphine. 04:00 Reassessment: Patient appears in no apparent distress at this time. Patient is alert, vc1 oriented x 3, equal unlabored respirations, skin warm/dry/pink. Vital Signs: 00:46 BP 132 / 78; Pulse 74; Resp 20; Temp 97.9; Pulse Ox 98% on R/A; Weight 74.39 kg; Height vc1 5 ft. 4 in. (162.56 cm); 02:10 BP 129 / 57; Pulse 69; Resp 19; Pulse Ox 99% ; ll3 00:46 Body Mass Index 28.15 (74.39 kg, 162.56 cm) vc1 ED Course: 09/12 23:53 Patient arrived in ED. wm 09/13 00:31 Forest Kc PA is PHCP. cp 00:31 Nemesio Lara MD is Attending Physician. cp 00:32 Amy Fields, BERNY is Primary Nurse. st1 00:46 Arm band placed on right wrist. vc1 00:48 Patient has correct armband on for positive identification. Fall risk band placed. st1 Placed in gown. Bed in low position. Call light in reach. Side rails up X2. Pulse ox on. NIBP on. Door closed. Verbal reassurance given. Head of bed elevated. shirt removed. 00:49 Triage completed. vc1 01:16 CBC with Automated Diff Sent. st1 01:16 Liver (Hepatic) Function Sent. st1 01:16 Basic Metabolic Panel Sent. st1 01:16 Basic Metabolic Panel Sent. st1 01:16 CBC with Diff Sent. st1 01:16 Hepatic Function Sent. st1 01:27 Inserted saline lock: 22 gauge in left forearm, using aseptic technique. st1 02:45 CT Stone Protocol In Process Unspecified. EDMS 03:30 Urine Culture Sent. vc1 04:04 Reshma Byrd MD is Hospitalizing Provider. cp 04:48 COVID-19/FLU A+B/RSV (Document "Date of Onset" if Symptomatic) Sent. vc1 05:41 Notified ED physician of a critical lab result(s). lactate of 2.5 Dr Lara notified. bb 10:12 No provider procedures requiring assistance completed. Patient admitted, IV remains in vg1 place. Administered Medications: 01:26 Drug: NS 0.9% 500 ml Route: IV; Rate: 500 ml/hr; Site: left forearm; st1 02:33 Follow up: Response: No adverse reaction; IV Status: Completed infusion; IV Intake: ll3 500ml 02:28 Drug: Zofran (Ondansetron) 4 mg Route: IVP; Site: left antecubital; ll3 04:49 Follow up: Response: No adverse reaction; Marked relief of symptoms vc1 02:30 Drug: morphine 4 mg Route: IVP; Site: left antecubital; ll3 04:49 Follow up: Response: No adverse reaction; Pain is decreased vc1 03:29 Drug: Rocephin - (cefTRIAXone) 1 grams Route: IVPB; Infused Over: 30 mins; Site: left vc1 antecubital; 04:48 Drug: NS 0.9% 500 ml Route: IV; Rate: bolus; Site: left wrist; vc1 Intake: 02:33 IV: 500ml; Total: 500ml. ll3 Outcome: 04:04 Decision to Hospitalize by Provider. cp 09:53 Admitted to Tele accompanied by tech, via stretcher, Report called to [facility] 09:53 Condition: stable 09:53 Instructed on the need for admit. 10:13 Patient left the ED. vg1 Signatures: Dispatcher [employer] EDMS Jacquelin Desir, RN RN Forest Cotto PA PA cp Garcia, Victoria RN RN vg1 Sonali Chaudhari Lynsea RN RN ll3 Perla Ariza RN RN 6 Amy Fields RN RN st1 Sharri Rosado RN RN vc1 Corrections: (The following items were deleted from the chart) 02:20 02:17 Reassessment: Pt requested a "pain shot", stated pain is in lower back and is a ll3 7/10 on a pain scale of 0/10 ll3
[2021-09-13] MEDS: NA CHLORIDE 0.9% 1,000 ML IV SCH ×2 (05:03→18:23)
--- NOTE | 2021-09-13 05:08 | P.HP ---
Certification for Inpatient Patient admitted to: Inpatient With expected LOS: <2 Midnights Patient will require the following post-hospital care: None Practitioner: I am a practitioner with admitting privileges, knowledge of patient current condition, hospital course, and medical plan of care. Services: Services provided to patient in accordance with Admission requirements found in Title 42 Section 412.3 of the Code of Federal Regulations <Conrado Oseguera - Last Filed: 09/13/21 05:11> Patient History Date of Service: 09/13/21 Primary Care Provider: Evaristo Reason for admission: UTI History of Present Illness: Mr. Lopez is a 66 yo bedbound M with dementia, DM, HTN, HLD, history of RCC s/p nephrectomy, history of CVA who was brought in for abdominal pain and dark urine. His says for the past few days he has been unwilling to drink water, and has been asking for soda instead. He had an episode of nausea and vomiting last night. Denies fever. UA shows nitrites, leukocyte esterase, WBCs, and bacteria. 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 Hgb 10 Plt 128 GFR 68 Glu 306 - Past Medical/Surgical History Diabetic: Yes -: Diabetes mellitus type 2 insulin-dependent -: GERD -: BPH -: Depression -: HTN -: Chronic Pain -: History of asbestosis exposure -: Atrial fibrillation -: left kidney cancer 18 years ago -: CVA -: femur sx X3 -: neck surg -: [place] hip replacement -: right knee replacement -: left kidney removal -: back surgery Psychosocial/ Personal History: Patient lives at home - Family History Mother -: Diabetes Brother -: Diabetes - Social History Smoking Status: Never smoker Alcohol use: No CD- Drugs: No Caffeine use: No Place of Residence: Home <Conrado Oseguera Vini - Last Filed: 09/13/21 05:11> Date of Service: 09/13/21 <Reshma Byrd - Last Filed: 09/15/21 05:38> Allergies No Known Allergies Allergy (Verified 08/12/18 00:38) Home Medications: Sotalol HCl [Betapace*] 80 mg PO DAILY 08/12/18 Atorvastatin Calcium [Lipitor] 80 mg PO DAILY #30 tablet 08/13/18 Clopidogrel Bisulfate [Plavix*] 75 mg PO DAILY #30 tablet 08/13/18 Metformin HCl [Metformin HCl ER] 1 tab PO BID 11/14/20 buprenorphine HCL [Buprenorphine HCl] 8 mg SL Q8HR 11/14/20 clonazePAM [Clonazepam] 1 mg PO BID 11/14/20 Pantoprazole [Protonix Tab*] 40 mg PO DAILY #40 tab 11/15/20 Ascorbic Acid [Vitamin C] 1 tab PO DAILY 09/13/21 Aspirin 1 tab PO DAILY 09/13/21 Cyanocobalamin (Vitamin B-12) [Vitamin B-12] 1 tab PO DAILY 09/13/21 Insulin Detemir [Levemir Flextouch] 20 unit SQ BID 09/13/21 Iron 65 mg PO DAILY 09/13/21 Memantine HCl [Namenda] 10 mg PO BID 09/13/21 Colchicine [Colcrys *] 0.6 mg PO BID #10 tab 09/14/21 Sulfamethoxazole/Trimethoprim [Bactrim Ds Tablet] 1 each PO BID #20 tablet 09/14/21 allopurinoL [Zyloprim*] 300 mg PO DAILY #30 tab 09/14/21 predniSONE [Prednisone*] 20 mg PO BID #11 tab 09/14/21 Review of Systems 10-point ROS is otherwise unremarkable General: Unremarkable Eyes: Unremarkable ENT: Unremarkable Respiratory: Unremarkable Cardiovascular: Unremarkable Gastrointestinal: Nausea, Vomiting, Abdominal Pain Genitourinary: Hematuria Musculoskeletal: Unremarkable Integumentary: Unremarkable Neurological: Unremarkable Lymphatics: Unremarkable <Conrado Oseguera - Last Filed: 09/13/21 05:11> Physical Examination - Physical Exam General: Alert, In no apparent distress HEENT: Atraumatic, PERRLA, Mucous membr. moist/pink, EOMI, Sclerae nonicteric Neck: Supple, 2+ carotid pulse no bruit, No LAD, Without JVD or thyroid abnormality Respiratory: Clear to auscultation bilaterally, Normal air movement Cardiovascular: No edema, Regular rate/rhythm, Normal S1 S2 Gastrointestinal: Normal bowel sounds, No tenderness Musculoskeletal: No tenderness Integumentary: No rashes Neurological: Sensation intact, Abnormal speech, Abnormal affect (at baseline ) Lymphatics: No axilla or inguinal lymphadenopathy - Studies Laboratory Data (last 24 hrs) 09/13/21 01:15: WBC 5.40, Hgb 10.0 L, Hct 31.5 L, Plt Count 128 L 09/13/21 01:15: Sodium 142, Potassium 4.1, BUN 12, Creatinine 1.09, Glucose 306 H, Total Bilirubin 0.4, AST 63 H, ALT 34, Alkaline Phosphatase 173 H, Lipase 126 <Conrado Oseguera - Last Filed: 09/13/21 05:11> Assessment and Plan - Problems (Diagnosis) (1) UTI (urinary tract infection) Status: Acute Qualifiers: Urinary tract infection type: acute cystitis Hematuria presence: with hematuria Qualified Code(s): N30.01 - Acute cystitis with hematuria (2) Anemia Onset Date: 02/21/15 Status: Chronic Qualifiers: Anemia type: unspecified type Qualified Code(s): D64.9 - Anemia, unspecified (3) DM2 (diabetes mellitus, type 2) Status: Chronic Qualifiers: Diabetes mellitus snf insulin use: without snf use Diabetes mellitus complication status: without complication Qualified Code(s): E11.9 - Type 2 diabetes mellitus without complications (4) HTN (hypertension) Onset Date: 08/12/18 Status: Chronic Qualifiers: Hypertension type: primary hypertension Qualified Code(s): I10 - Essential (primary) hypertension - Plan continue IV ceftriaxone reconcile and continue home medications sliding scale insulin and accuchecks, A1c pending gentle IV fluid hydration pain management, antiemetics as needed DVT ppx Discharge Plan: Home Plan to discharge in: 48 Hours - Advance Directives Does patient have a Living Will: No Does patient have a Durable POA for Healthcare: No - Code Status/Comfort Care Code Status Assessed: Yes (full code ) Critical Care: No Time Spent Managing Pts Care (In Minutes): 70 <Conrado Oseguera - Last Filed: 09/13/21 05:11> Date of Service: 09/13/21 Subjective: HPI as mentioned above Physical Examination: Vitals: Afebrile vital signs are stable Physical exam: Cardiovascular: Within normal limits. Lungs: Within normal limits Abdomen: Within normal limits Neuro: Awake, alert, oriented to person place and time Assessment: 1. Emphysematous cystitis Plan: 1. Continue with current plan of care as mentioned above <Reshma Byrd - Last Filed: 09/15/21 05:38>
[2021-09-13 05:50] LABS: SARS-COV-2 RT PCR NEGATIVE (NEGATIVE)
[2021-09-13] MEDS: INSULIN -REGULAR HUMAN 50 UNIT/0.5 ML ML SQ SCH ×4 (07:30→21:00)
[2021-09-13] MEDS: CEFTRIAXONE 1,000 MG in NA CHLORIDE 0.9% 50 ML IVPB SCH ×2 (08:40→21:00)
[2021-09-13] MEDS ORDERED: NA CHLORIDE 0.9% 1,000 ML ONE (08:45)
[2021-09-13] MEDS ORDERED: INSULIN -REGULAR HUMAN 50 UNIT/0.5 ML ML ONE (08:45)
[2021-09-13 08:48] VITALS: BMI 24.0
[2021-09-13] MEDS ORDERED: MORPHINE 2 MG/ML SYR IV PRN (10:00)
[2021-09-13] MEDS ORDERED: HYDROCORTISONE SUC 100 MG INJ IV ONE (13:13)
[2021-09-13] MEDS ORDERED: COLCHICINE 0.6 MG TAB PO ONE (13:13)
[2021-09-13] MEDS: BUPRENORPHINE HCL 8 MG SL SCH (17:00)
--- NOTE | 2021-09-13 19:04 | RAD REPORT ---
EXAM DESCRIPTION: CT - Stone Protocol - 09/13/2021 7:19 am CLINICAL HISTORY: The patient is 66 years old and is Male; abdominal pain TECHNIQUE: Axial computed tomography images of the abdomen and pelvis without intravenous contrast. Sagittal and coronal reformatted images were created and reviewed. This CT exam was performed usi ng one or more of the following dose reduction techniques: automated exposure control, adjustment o f the mA and/or kV according to patient size, and/or use of iterative reconstruction technique. COMPARISON: No relevant prior studies available. FINDINGS: Lung bases: Unremarkable. No mass. No consolidation. ABDOMEN: Liver: Unremarkable. Gallbladder and bile ducts: Unremarkable. No calcified stones. No ductal dilation. Pancreas: Unremarkable. No ductal dilation. Spleen: Unremarkable. No splenomegaly. Adrenals: 1.3 cm left adrenal nodule with attenuation suggestive of a adrenal adenoma. Kidneys and ureters: [id number] right perinephric/right lower quadrant fat stranding. No hy dronephrosis. Left kidney is absent. The distal right ureter and right UVJ are not visualized due to artifact. Stomach and bowel: Unremarkable. No obstruction. No mucosal thickening. PELVIS: Appendix: No findings to suggest acute appendicitis. Bladder: The bladder is poorly visualized due to artifact, but there appears to be gas within the bladder lumen and bladder wall. No stones. Reproductive: Unremarkable as visualized. ABDOMEN and PELVIS: Intraperitoneal space: Unremarkable. No free air. No significant fluid collection. Bones/joints: Multilevel severe disc space narrowing with degenerative endplate changes in the sp ine. 5 mm of anterolisthesis of L5 on S1. 1.2 cm nonspecific lucent lesion in the T12 vertebral body. Bilateral hip arthroplasty with related artifact limiting evaluation of the pelvis. No acute fracture. No dislocation. Soft tissues: Unremarkable. Vasculature: Scattered atherosclerotic vascular calcifications. No abdominal aortic aneurysm. Lymph nodes: Unremarkable. No enlarged lymph nodes. IMPRESSION: 1. [id number] right perinephric/right lower quadrant fat stranding. No hydroneph rosis. Correlate with any concern for pyelonephritis/UTI. 2. The bladder is poorly visualized due to artifact, but there appears to be gas within the bladder lumen and bladder wall. Findings are concerning for emphysematous cystitis. Electronically signed by: David Crowley MD 09/13/2021 3:23 AM [employer] REPA[employer] Due to temporary technical issues with the PACS/Fluency reporting system, reports are being signed by the in house radiologists without review as a courtesy to insure prompt reporting. The interpreting radiologist is fully responsible for the content of the report.
[2021-09-13] MEDS: HYDROCORTISONE SUC 100 MG INJ IV SCH (21:51)
[2021-09-13] MEDS: clonazePAM 0.5 MG TAB PO SCH (21:52)
[2021-09-13] MEDS: MEMANTINE HCL 10 MG TABLET PO SCH (21:52)
[2021-09-13] MEDS: COLCHICINE 0.6 MG TAB PO SCH (21:52)
[2021-09-13] MEDS: METFORMIN ER 500 MG TAB PO SCH (21:52)
[2021-09-13] MEDS: INSULIN GLARGINE 100 UNIT/ML SQ SCH (21:53)
[2021-09-14] MEDS: BUPRENORPHINE HCL 8 MG SL SCH ×3 (01:00→16:29)
[2021-09-14 06:21] LABS: Absolute Lymphocytes (CBC) 1.1 K/uL (0.7-4.9); Lymphocytes % 22.1 % (15.3-44.8); MPV 8.5 fL (7.6-11.3); RBC Red Blood Cell Count 3.23 M/uL (4.33-5.43)
[2021-09-14 06:42] LABS: Albumin 2.5 g/dL (3.4-5.0); Bilirubin Direct 0.1 mg/dL (0-0.2); Bilirubin Total 0.3 mg/dL (0.2-1.0); Magnesium 1.8 mg/dL (1.8-2.4); Phosphorus 2.6 mg/dL (2.5-4.9); Potassium 3.9 mmol/L (3.5-5.1); Protein, Total 7.5 g/dL (6.4-8.2)
[2021-09-14] MEDS: NA CHLORIDE 0.9% 1,000 ML IV SCH (07:43)
[2021-09-14] MEDS ORDERED: ASCORBIC ACID 500 MG TABLET PO SCH (09:00)
[2021-09-14] MEDS ORDERED: CLOPIDOGREL 75 MG TABLET PO SCH (09:00)
[2021-09-14] MEDS ORDERED: CYANOCOBALAMIN 1,000 MCG TAB PO SCH (09:00)
[2021-09-14] MEDS ORDERED: FERROUS SULFATE 325 MG TAB PO SCH (09:00)
[2021-09-14] MEDS ORDERED: allopurinoL 300 MG TAB PO SCH (09:00)
[2021-09-14] MEDS ORDERED: PANTOPRAZOLE 40MG TABLET PO SCH (09:00)
[2021-09-14] MEDS ORDERED: ATORVASTATIN 80 MG TAB PO SCH (09:00)
[2021-09-14] MEDS ORDERED: ASPIRIN 81 MG CHEWABLE TABLET PO SCH (09:00)
[2021-09-14] MEDS ORDERED: SOTALOL HCL 80 MG TAB PO SCH (09:00)
[2021-09-14] MEDS: HYDROCORTISONE SUC 100 MG INJ IV SCH (09:04)
[2021-09-14] MEDS: INSULIN GLARGINE 100 UNIT/ML SQ SCH (09:05)
[2021-09-14] MEDS: CEFTRIAXONE 1,000 MG in NA CHLORIDE 0.9% 50 ML IVPB SCH (09:05)
[2021-09-14] MEDS: INSULIN -REGULAR HUMAN 50 UNIT/0.5 ML ML SQ SCH ×3 (09:05→16:28)
[2021-09-14] MEDS: COLCHICINE 0.6 MG TAB PO SCH (09:08)
[2021-09-14] MEDS: METFORMIN ER 500 MG TAB PO SCH (09:08)
[2021-09-14] MEDS: clonazePAM 0.5 MG TAB PO SCH (09:08)
[2021-09-14] MEDS: MEMANTINE HCL 10 MG TABLET PO SCH (09:08)
[2021-09-14 10:02] VITALS: O2SAT 97
[2021-09-14 13:44] VITALS: BP 142/63; TEMP 98
--- NOTE | 2021-09-15 05:39 | P.DS ---
Discharge Date: 09/14/21 Primary Care Provider: Evaristo Disposition: ROUTINE DISCHARGE Discharge Condition: GOOD Reason for Admission: UTI Brief History of Present Illness: Mr. Lopez is a 66 yo bedbound M with dementia, DM, HTN, HLD, history of RCC s/p nephrectomy, history of CVA who was brought in for abdominal pain and dark urine. His says for the past few days he has been unwilling to drink water, and has been asking for soda instead. He had an episode of nausea and vomiting last night. Denies fever. UA shows nitrites, leukocyte esterase, WBCs, and bacteria. 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 Hgb 10 Plt 128 GFR 68 Glu 306 Hospital Course: Patient is doing well during hospital stay. At this time, will switch to oral antibiotics. Patient should continue this for another 10-14 days. Patient is afebrile and he feels much better. He is wanting to go home. Plan to discharge patient home. Outpatient follow with PCP. Vital Signs/Physical Exam: Temp Pulse Resp BP Pulse Ox 98 F 57 19 142/63 H 98 09/14/21 12:00 09/14/21 12:00 09/14/21 12:00 09/14/21 12:00 09/14/21 12:00 General: Alert, In no apparent distress, Oriented x3 Respiratory: Clear to auscultation bilaterally, Normal air movement Cardiovascular: Regular rate/rhythm, Normal S1 S2, Systolic murmur Gastrointestinal: Normal bowel sounds, Soft and benign, Non-distended Laboratory Data at Discharge: WBC 4.80 K/uL (4.3-10.9) 09/14/21 05:33 Hgb 9.9 g/dL (13.6-17.9) L 09/14/21 05:33 Hct 30.0 % (39.6-49.0) L 09/14/21 05:33 Plt Count 102 K/uL (152-406) L D 09/14/21 05:33 Sodium 140 mmol/L (136-145) 09/14/21 05:33 Potassium 3.9 mmol/L (3.5-5.1) 09/14/21 05:33 BUN 11 mg/dL (7-18) 09/14/21 05:33 Creatinine 0.92 mg/dL (0.55-1.3) 09/14/21 05:33 Glucose 278 mg/dL (74-106) H 09/14/21 05:33 Phosphorus 2.6 mg/dL (2.5-4.9) 09/14/21 05:33 Magnesium 1.8 mg/dL (1.8-2.4) 09/14/21 05:33 Total Bilirubin 0.3 mg/dL (0.2-1.0) 09/14/21 05:33 AST 48 U/L (15-37) H 09/14/21 05:33 ALT 31 U/L (12-78) 09/14/21 05:33 Alkaline Phosphatase 152 U/L (45-117) H 09/14/21 05:33 Lipase 87 U/L (73-393) 09/14/21 05:33 Home Medications: Sotalol HCl [Betapace*] 80 mg PO DAILY 08/12/18 Atorvastatin Calcium [Lipitor] 80 mg PO DAILY #30 tablet 08/13/18 Clopidogrel Bisulfate [Plavix*] 75 mg PO DAILY #30 tablet 08/13/18 Metformin HCl [Metformin HCl ER] 1 tab PO BID 11/14/20 buprenorphine HCL [Buprenorphine HCl] 8 mg SL Q8HR 11/14/20 clonazePAM [Clonazepam] 1 mg PO BID 11/14/20 Pantoprazole [Protonix Tab*] 40 mg PO DAILY #40 tab 11/15/20 Ascorbic Acid [Vitamin C] 1 tab PO DAILY 09/13/21 Aspirin 1 tab PO DAILY 09/13/21 Cyanocobalamin (Vitamin B-12) [Vitamin B-12] 1 tab PO DAILY 09/13/21 Insulin Detemir [Levemir Flextouch] 20 unit SQ BID 09/13/21 Iron 65 mg PO DAILY 09/13/21 Memantine HCl [Namenda] 10 mg PO BID 09/13/21 Colchicine [Colcrys *] 0.6 mg PO BID #10 tab 09/14/21 Sulfamethoxazole/Trimethoprim [Bactrim Ds Tablet] 1 each PO BID #20 tablet 09/14/21 allopurinoL [Zyloprim*] 300 mg PO DAILY #30 tab 09/14/21 predniSONE [Prednisone*] 20 mg PO BID #11 tab 09/14/21 New Medications: Sulfamethoxazole/Trimethoprim [Bactrim Ds Tablet] 1 each PO BID #20 tablet Colchicine [Colcrys *] 0.6 mg PO BID #10 tab predniSONE [Prednisone*] 20 mg PO BID #11 tab allopurinoL [Zyloprim*] 300 mg PO DAILY #30 tab Physician Discharge Instructions: -DC IV and DC home -Follow-up with PCP in 1 to 2 weeks -Follow-up with Urology in 1 to 2 weeks -Please call Dr. Byrd at [phone] if any questions regarding hospital stay -Please call nursing station at [phone] if any nursing or medication questions -Return to the emergency room if symptoms worsen Diet: AHA Activity: Fall precautions Followup: NONE,NONE [Primary Care Provider] - Time spent managing pt's care (in minutes): 35
== END 2021-09-14 17:15 | disposition home or self-care (01) | DRG 690 ==
LOC: ER 23:51 → ERHOLD 09-13 04:06 → 2ND 09-13 09:53
PROVIDERS: ADMIT Hospitalist; ATTEND Hospitalist
DX: N30.81 Other cystitis with hematuria (principal); F03.90 Unspecified dementia, unspecified severity, without behavioral disturbance, psychotic disturbance, mood disturbance, and anxiety; E11.9 Type 2 diabetes mellitus without complications; I10 Essential (primary) hypertension; E78.5 Hyperlipidemia, unspecified; K21.9 Gastro-esophageal reflux disease without esophagitis; N40.0 Benign prostatic hyperplasia without lower urinary tract symptoms; D64.9 Anemia, unspecified; Z85.528 Personal history of other malignant neoplasm of kidney; Z90.5 Acquired absence of kidney; Z96.643 Presence of artificial hip joint, bilateral; Z96.651 Presence of right artificial knee joint; Z74.01 Bed confinement status; Z20.822 Contact with and (suspected) exposure to COVID-19
CPT/HCPCS: 0241U; 36415; 74176; 76377; 80048; 80076; 81003; 81015; 82550; 82947; 83036; 83605; 83690; 83735; 84100; 84145; 85025; 87040; 87077; 87086; 87088; 87186; 96361; 96374; 96375; 99285; J1720; J2405; J7030; J7040

== ENCOUNTER 2021-11-14 01:11 | Emergency (ER) | payer OTHER ==
--- OUTSIDE RECORDS SUMMARY | 2021-11-14 01:23 | XMS REPORT | Continuity of Care Document ---
:1955 Author Organization [facility] t Address [address] [place] [address] Care Team Providers Name Role Phone Conner Loera DO Primary Care Physician Tiffany Loera Attending Clinician Unavailable Helen Calvillo Attending Clinician Unavailable ALEN STARKEY Attending Clinician Unavailable ALEN STARKEY Attending Clinician Unavailable Simran IGNACIO Attending Clinician Samantha COLIN Attending Clinician Unavailable KRISTIN Attending Clinician Unavailable Ashvin IGNACIO Attending Clinician Doctor Unassigned, Name Attending Clinician Unavailable BREONNA JETER Attending Clinician Unavailable Lisseth ARRIETA Attending Clinician Unavailable Frantz IGNACIO, Vini Attending Clinician Rosalie IGNACIO Attending Clinician Linda IGNACIO Attending Clinician Breonna Pierce Attending Clinician Teresa IGNACIO, Sharon Attending Clinician Clyde Pacheco MD Attending Clinician Jalen IGNACIO, Tyrelmn Attending Clinician [facility] Attending Clinician Unavailable Linda IGNACIO Admitting Clinician KNOW Admitting Clinician Unavailable Payers Payer Name Policy Type Policy Number Effective Date Expiration Date S [place] [facility] [id number] 2017 MEDICARE GOLD 00:00:00 [facility] SECURE [id number] 2021 HORIZONS 00:00:00 MEDICARE PART A \\T\\ [id number] B - MEDICARE WELLMED DUAL [id number] COMPLETE SNP [facility] MEDIGAP-GENERIC - [id number] GENERIC PAYOR Problems Condition Condition Condition Status Onset Resolution Last Treating Co mments Source Name Details Category Date Date Treatment Clinician Date Other Other Disease Active Univers constipati constipati 7-24 it y of on on 00:00: [place] 00 Medical Branch Fever due Fever due Disease Active Uni vers to to 7-23 [place] Urinary Urinary Disease Active Univers tract tract 6-11 [place] 00 Medical ESBL ESBL Branch Klebsiella Klebsiella UTI UTI Disease Active Univers (urinary (urinary 6-11 ity of tract tract 00:00: [place] infection) infection) 00 Me dical Branch Cervical Cervical Disease Active [facility] di disc disc 5-09 st disease disease 00:00: [facility] 00 l Lumbar Lumbar Disease Active Methodi disc disc 5-09 st disease disease 00:00: [facility] 00 l Fever, Fever, Disease Active Univers unknown unknown 2-19 ity of origin origin 00:00: [place] [facility] Bradycardi Bradycardi Disease Active M ethodi a a 5-09 st 00:00: [facility]ospita 00 l Acidosis Acidosis Disease Active [facility] di 12-08 00:00: [facility]osp[facility] 00 l 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 00:00: Ho spita sm sm 00 l Parkinson' Parkinson' Disease Active U nivers s disease s disease 01-01 ity of 00:00: Medical Branch Hypotensio Hypotensio Disease Active U nivers n n 5-30 ity of 00:00: Medical Branch Right Right Disease Active Univers wrist wrist 4 ity of injury injury 00:00: Medical Branch DM DM Disease Active Univers (diabetes (diabetes 1-25 ity of mellitus) mellitus) [place] [facility] [place] CHAPO on CHAPO on Disease Active Univers CPAP CPAP 1-25 ity of 00:00: [place] [facility] Chest pain Chest pain Disease Active U nivers 1-23 ity of 00:00: Medical Branch SOB SOB Disease Active Univers (shortness (shortness 828 it y of of breath) of breath) [place] [facility] [place] Dyspnea Dyspnea Disease Active Overview: Univ ers and and 03-23 Formattin ity of respirator respirator 00:00: g of this [place] y y 00 note Medical abnormalit abnormalit might be Branch y y different from the original. 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 ICD10 Diagnosis [employer] Utility Fasciitis Fasciitis Disease Active Overview: Univers 4-23 Formattin ity of 00:00: g of this [place] 00 note Medical might be Branch different from the original. ICD10 Diagnosis [employer] Special[facility] Utility Arthropath Arthropath Disease Active Overview : Univers y y 4- Formattin ity of associated associated 00:00: g of this [place] with with 00 note Medical another another might be Branch systemic systemic different disease disease from the original. ICD10 Diagnosis Term [employer] Specialist Utility Degenerati Degenerati Disease Active Overview : [...] from the original. left nephrecto my in [id number] Diagnosis Term [employer] Special[facility] Utility Essential Essential Disease Active Overview: Univers hypertensi hypertensi Formattin ity of on on g of this [place] note Medical might be Branch different from the original. ICD10 Diagnosis [facility] [employer] Utility Backache Backache Disease Active Overview: Un bib Formattin ity of g of this [place] note Medical might be Branch different from the original. back surgeries in , [id number] Diagnosis [employer] Utility Hip joint Hip joint Disease Active Overview: Univers replacemen replacemen Formattin ity of t by other t by other g of this [place] means means note Medical might be Branch different from the original. B/L Asbestosis Asbestosis Disease Active Overview : Univers Formattin ity of g of this [place] note Medical might be Branch different from the original. ICD10 Diagnosis Term [employer] [facility] Special[facility] Utility Gout Gout Disease Active Overview: Univer s Formattin ity of g of this [place] note Medical might be Branch different from the original. ICD10 Diagnosis Term [employer] Special[facility] Utility HLD HLD Disease Active Overview: Univer s (hyperlipi (hyperlipi Formattin ity of demia) demia) g of this [place] note Medical might be Branch different from the original. 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 ity of pa adverse 00:00: [place] reaction 00 Medical s Branch CARBIDOP DRUG Active Other-Cmnt Univ ers A-LEVODO 03-25 ity of [place] 00:00: [place] 00 Medical Branch No Known DA Active U 2011-08 [facility]03 Clear Allergie 00:00: [place] 00 [facility] No Known DA Active U 2011-08 [facility] 0-03 Clear Allergie 00:00: [place] 00 [facility] NO KNOWN Allergy Active [facility] Social History Social Habit Start Date Stop Date Quantity Comments Source History of Cigarette Smoker Universi ty of tobacco use [facility] Branch Exposure to Not sure University of SARS-CoV-2 [place] Medical (event) Branch History SDOH University o f Alcohol Frequency [facility] edical Branch History SDOH University o f Alcohol Std [place] Medical Drinks Branch History SDOH University o f Alcohol Binge [place] Medic al Branch Tobacco use and 2021-09-10 2021-09-10 Former smokeless [facility] of exposure 00:00:00 00:00:00 tobacco user Medicine Alcohol intake 2019-08-22 2019-08-22 Current [facility] 00:00:00 00:00:00 non-drinker of Hospital alcohol (finding) Alcohol Comment 2008-12-04 2008-12-04 once per month Unive rsity of 00:00:00 00:00:00 [facility] Branch Tobacco Comment 2008-11-22 2008-11-22 states smoked Univer sity of 00:00:00 00:00:00 occasionly for [facility] about 3 years Branch Sex Ass[birth year] [employer] of 00:00:00 00:00:00 Medicine Smoking Status Start Date Stop Date Source Ex-smoker 2021-09-10 00:00:00 2021-09-10 00:00:00 [facility] mandeep of Medicine Never smoker [facility] Medications Ordered Filled Start Stop Current Ordering Indication Dosage Frequency Signature Comments Components Source Medication Medication Date Date Medication? Clinician (SIG) Name Name metformin Yes 500mg Take 500 [place] rachel (GLUCOPHAGE 2-09 mg by [place] ) 500 MG 13:58: mouth of tablet 52 daily. Medicin e clonazepam Yes 1mg Take 1 mg [facility] (KLONOPIN) 2-09 by mouth Colle ge 1 MG tablet 13:58: daily. of 52 Medicin e venlafaxine Yes 75mg Take 75 mg [place] (EFFEXOR-XR 2-09 by mouth Alyssa ege ) 75 MG XR 13:58: daily. of capsule 52 Medicin e clopidogrel Yes 75mg Take 75 mg J[facility] (PLAVIX) 75 2-09 by mouth Alyssa ege MG Tablet 13:58: daily. of 52 Medicin e indomethaci Yes 25mg Take 25 mg [place] n (INDOCIN) 2-09 by mouth 3 [facility] 25 MG 13:58: times of capsule 52 daily. Medicin e Aspirin Yes 81mg Take 81 mg [place] (ASPIR-LOW) 2-09 by mouth Alyssa ege 81 MG 13:58: once. of tablet 52 Medicin e Cyanocobala Yes Take by Jayy gomez min (B-12) 2-09 mouth. [place] 2500 MCG 13:58: of TABS 52 Medicin e Ascorbic Yes Take by [facility] [facility] Acid 2-09 mouth. [place] (VITAMIN C) 13:58: of 500 MG CAPS 52 Medicin e Ferrous Yes Take by [place] Sulfate 2-09 mouth. [place] (IRON) 325 13:58: of (65 Fe) MG 52 Medicin TABS e Insulin Yes 20U Inject 20 [facility] Detemir 2-09 Units into Colle e (LEVEMIR 13:58: the skin. of [place]) 52 Medicin e Buprenorphi Yes 8mg Take 8 mg B aylor ne HCl 8 MG 1-19 by mouth [place] e[place] SUBL 00:00: every 8 of 00 hours as Medicin needed. e sotalol 2020-08 Yes 80mg Take 80 mg [place] (BETAPACE) 2-13 by mouth Colle ge 80 MG 00:00: daily. of tablet 00 Medicin e atorvastati 2020-08 Yes 80mg Take 80 mg J[place] n (LIPITOR) 2-13 by mouth [place] e[place] 80 MG 00:00: daily. of tablet 00 Medicin e AMLODIPINE 2020-08 Yes TAKE 1 Unive rs 10 mg 1-26 TABLET BY ity of tablet 00:00: MOUTH [place] 00 DAILY Medical Branch AMLODIPINE 2020-08 Yes TAKE 1 Unive rs 10 mg 1-26 TABLET BY ity of tablet 00:00: MOUTH [place] 00 DAILY Medical Branch PANTOPRAZOL 2020-08 Yes [id number] 40mg TAKE 1 Univers E 40 mg EC 0-11 TABLET BY ity of tablet 00:00: MOUTH [place] 00 DAILY Medical Branch PANTOPRAZOL 2020-08 Yes [id number] 40mg TAKE 1 Univers E 40 mg EC 0-11 TABLET BY ity of tablet 00:00: MOUTH [place] 00 DAILY Medical Branch PANTOPRAZOL 2020-08 Yes [id number] 40mg TAKE 1 Univers E 40 mg EC 0-11 TABLET BY ity of tablet 00:00: MOUTH [place] 00 DAILY Medical Branch memantine Yes 10mg Take 10 mg [facility] (NAMENDA) 9-18 by mouth Colleg e 10 MG 00:00: two times of tablet 00 daily. Medicin e NaCl 0.9% 2020- No 1000mL at 999 Uni vers (NS) bolus 8 08-31 mL/hr, ity of infusion 05:30: 05:30 1,000 mL, [place] as 1,000 mL 00 :00 IV Medical Infusion, Branch ONCE, 1 dose, Wed04/01/21 at 0030, STAT NaCl 0.9% 2020- No 1000mL at 999 Uni vers (NS) bolus 8 08-31 mL/hr, ity of infusion 05:30: 05:30 1,000 mL, [place] as 1,000 mL 00 :00 IV Medical Infusion, Branch ONCE, 1 dose, Wed04/01/21 at 0030, STAT NaCl 0.9% 2020- No 500mL at 999 Univ ers (NS) bolus 8 08-31 mL/hr, 500 it y of infusion 02:15: 02:55 mL, IV [place] 500 mL 00 :00 Piggyback, Medical ONCE, 1 Branch dose, 03/31/21 at 2115, STAT NaCl 0.9% 2020- No 500mL at 999 Univ ers (NS) bolus 04-01 08-31 mL/hr, 500 it y of infusion 02:15: 02:55 mL, IV [place] 500 mL 00 :00 Piggyback, Medical ONCE, 1 Branch dose, 03/31/21 at 2115, STAT amLODIPine 2020- No [id number] 10mg Take 1 Univers 10 mg 7-29 10-28 tablet by ity of tablet 00:00: 04:59 mouth [place] 00 :00 daily for Medical 90 days. Branch amLODIPine 2020- No [id number] 10mg Take 1 Univers 10 mg 7-29 10-28 tablet by ity of tablet 00:00: 04:59 mouth [place] 00 :00 daily for Medical 90 days. Branch amLODIPine 2020- No [id number] 10mg Take 1 Univers 10 mg 7-29 10-28 tablet by ity of tablet 00:00: 04:59 mouth [place] 00 :00 daily for Medical 90 days. Branch amLODIPine 2020- No [id number] 10mg Take 1 Univers 10 mg 7-29 10-28 tablet by ity of tablet 00:00: 04:59 mouth [place] 00 :00 daily for Medical 90 days. Branch amLODIPine 2020- No [id number] 10mg Take 1 Univers 10 mg 7-29 10-28 tablet by ity of tablet 00:00: 04:59 mouth [place] 00 :00 daily for Medical 90 days. Branch amLODIPine 2020- No [id number] 10mg Take 1 Univers 10 mg 7-29 [...] by mouth 2 ity of 23:25: (two) [place] 24 times Medical daily as Branch needed (back pain). insulin 0 Yes 20U inject 20 Unive rs detemir 7-28 Units ity of (LEVEMIR 23:25: under the [facility] s U-100 24 skin 2 Medical INSULIN SC) (two) Branch times daily before breakfast and dinner. atorvastati Yes 80mg Take 80 mg Univers n 80 mg 7-28 by mouth ity of tablet 23:25: at [place] [address] bedtime. Medical Branch metFORMIN Yes 500mg Take 500 Uni vers 500 mg 7-28 mg by ity of tablet 23:25: mouth 2 [place] [address] (two) Medical times Branch daily with meals. clopidogreL Yes 75mg Take 75 mg Univers (PLAVIX) 75 7-28 by mouth ity of mg tablet 23:25: daily. [place] [address] Medical Branch gabapentin Yes 600mg Take 600 Un bib 300 mg 7-28 mg by ity of capsule 23:25: mouth 3 [place] 24 (three) Medical times Branch daily. venlafaxine Yes 112.5mg Take 112.5 Univers XR 37.5 mg 7-28 mg by ity of 24 hr 23:25: mouth [place] capsule 24 daily with Medica l breakfast. Branch baclofen 5 Yes 10mg Take 10 mg U nivers mg tablet 7-28 by mouth 2 ity of 23:25: (two) [place] 24 times Medical daily as Branch needed (back pain). insulin 0 Yes 20U inject 20 Unive rs detemir 7-28 Units ity of (LEVEMIR 23:25: [facility] the [place] [facility] U-100 24 skin 2 Medical INSULIN SC) (two) Branch times daily before breakfast and dinner. atorvastati Yes 80mg Take 80 mg Univers n 80 mg 7-28 by mouth ity of tablet 23:25: at [place] [address] bedtime. Medical Branch metFORMIN Yes 500mg Take 500 Uni vers 500 mg 7-28 mg by ity of tablet 23:25: mouth 2 [place] 24 (two) Medical times Branch daily with meals. clopidogreL 2021-0 Yes 75mg Take 75 mg Univers (PLAVIX) 75 7-28 by mouth ity of mg tablet 23:25: daily. [place] [address] Medical Branch gabapentin 2020-0 Yes 600mg Take 600 Un bib 300 mg 7-28 mg by ity of capsule 23:25: mouth 3 [place] 24 (three) Medical times Branch daily. venlafaxine 0 Yes 112.5mg Take 112.5 Univers XR 37.5 mg 7-28 mg by ity of 24 hr 23:25: mouth [place] capsule 24 daily with Medica l breakfast. Branch baclofen 5 Yes 10mg Take 10 mg U nivers mg tablet 7-28 by mouth 2 ity of 23:25: (two) [place] [address] times Medical daily as Branch needed (back pain). insulin 2020-0 Yes 20U inject 20 Unive rs detemir 7-28 Units ity of (LEVEMIR 23:25: under the [facility] s U-100 24 skin 2 Medical INSULIN SC) (two) Branch times daily before breakfast and dinner. atorvastati 0 Yes 80mg Take 80 mg Univers n 80 mg 7-28 by mouth ity of tablet 23:25: at [place] [address] bedtime. Medical Branch metFORMIN 0 Yes 500mg Take 500 Uni vers 500 mg 7-28 mg by ity of tablet 23:25: mouth 2 [place] [address] (two) Medical times Branch daily with meals. clopidogreL 0 Yes 75mg Take 75 mg Univers (PLAVIX) 75 7-28 by mouth ity of mg tablet 23:25: daily. [place] [address] Medical Branch gabapentin 0 Yes 600mg Take 600 Un bib 300 mg 7-28 mg by ity of capsule 23:25: mouth 3 [place] 24 (three) Medical times Branch daily. venlafaxine 2020-0 Yes 112.5mg Take 112.5 Univers XR 37.5 mg 7-28 mg by ity of 24 hr 23:25: mouth [place] capsule 24 daily with Medica l breakfast. Branch baclofen 5 Yes 10mg Take 10 mg U nivers mg tablet 7-28 by mouth 2 ity of 23:25: (two) [place] 24 times Medical daily as Branch needed (back pain). insulin 2020-0 Yes 20U inject 20 Unive rs detemir 7-28 Units ity of (LEVEMIR 23:25: under the [facility] s U-100 24 skin 2 Medical INSULIN SC) (two) Branch times daily before breakfast and dinner. atorvastati 2020-0 Yes 80mg Take 80 mg Univers n 80 mg 7-28 by mouth ity of tablet 23:25: at [place] [address] bedtime. Medical Branch metFORMIN 2020-0 Yes 500mg Take 500 Uni vers 500 mg 7-28 mg by ity of tablet 23:25: mouth 2 [place] [address] (two) Medical times Branch daily with meals. clopidogreL 2020-0 Yes 75mg Take 75 mg Univers (PLAVIX) 75 7-28 by mouth ity of mg tablet 23:25: daily. [place] [address] Medical Branch gabapentin 2020-0 Yes 600mg Take 600 Un bib 300 mg 7-28 mg by ity of capsule 23:25: mouth 3 [place] [address] (three) Medical times Branch daily. venlafaxine 2020-0 Yes 112.5mg Take 112.5 Univers XR 37.5 mg 7-28 mg by ity of 24 hr 23:25: mouth [facility] 24 daily with Medica l breakfast. Branch baclofen 5 0 Yes 10mg Take 10 mg U nivers mg tablet 7-28 by mouth 2 ity of 23:25: (two) [place] [address] times [facility] daily as Branch needed (back pain). insulin 0 Yes 20U inject 20 Unive rs detemir 7-28 Units ity of (LEVEMIR 23:25: under the [facility] s U-100 24 skin 2 Medical INSULIN SC) (two) Branch times daily before breakfast and dinner. atorvastati 0 Yes 80mg Take 80 mg Univers n 80 mg 7-28 by mouth ity of tablet 23:25: at [place] [address] bedtime. Medical Branch metFORMIN 2020-0 Yes 500mg Take 500 Uni vers 500 mg 7-28 mg by ity of tablet 23:25: mouth 2 [place] [address] (two) Medical times Branch daily with meals. clopidogreL 2020-0 Yes 75mg Take 75 mg Univers (PLAVIX) 75 7-28 by mouth ity of mg tablet 23:25: daily. [place] [address] Medical Branch gabapentin 2020-0 Yes 600mg Take 600 Un bib 300 mg 7-28 mg by ity of capsule 18:25: mouth 3 [place] [address] (three) Medical times Branch daily. venlafaxine Yes 112.5mg Take 112.5 Univers XR 37.5 mg 7-28 mg by ity of 24 hr 18:25: mouth [place] capsule 24 daily with Medica l breakfast. Branch baclofen 5 Yes 10mg Take 10 mg U nivers mg tablet 7-28 by mouth 2 ity of 18:25: (two) [place] [address] times Medical daily as Branch needed (back pain). insulin 0 Yes 20U inject 20 Unive rs detemir 7-28 Units ity of (LEVEMIR 18:25: under the [place] [facility] U-100 24 skin 2 Medical INSULIN SC) (two) Branch times daily before breakfast and dinner. atorvastati Yes 80mg Take 80 mg Univers n 80 mg 7-28 by mouth ity of tablet 18:25: at [place] [address] bedtime. Medical Branch metFORMIN Yes 500mg Take 500 Uni vers 500 mg 7-28 mg by ity of tablet 18:25: mouth 2 [place] [address] (two) Medical times Branch daily with meals. clopidogreL Yes 75mg Take 75 mg Univers (PLAVIX) 75 7-28 by mouth ity of mg tablet 18:25: daily. [place] [address] Medical Branch gabapentin Yes 600mg Take 600 Un bib 300 mg 7-28 mg by ity of capsule 18:25: mouth 3 [place] 24 (three) Medical times Branch daily. venlafaxine Yes 112.5mg Take 112.5 Univers XR 37.5 mg 7-28 mg by ity of 24 hr 18:25: mouth [place] capsule 24 daily with Medica l breakfast. Branch baclofen 5 Yes 10mg Take 10 mg U nivers mg tablet 7-28 by mouth 2 ity of 18:25: (two) [place] [address] times Medical daily as Branch needed (back pain). insulin 0 Yes 20U inject 20 Unive rs detemir 7-28 Units ity of (LEVEMIR 18:25: under the [place] U-100 24 skin 2 Medical INSULIN SC) (two) Branch times daily before breakfast and dinner. atorvastati Yes 80mg Take 80 mg Univers n 80 mg 7-28 by mouth ity of tablet 18:25: at [place] [address] bedtime. Medical Branch metFORMIN Yes 500mg Take 500 Uni vers 500 mg 7-28 mg by ity of tablet 18:25: mouth 2 [place] [address] (two) Medical times Branch daily with meals. clopidogreL Yes 75mg Take 75 mg Univers (PLAVIX) 75 7-28 by mouth ity of mg tablet 18:25: daily. [place] [address] Medical Branch gabapentin 0 Yes 600mg Take 600 Un bib 300 mg 7-28 mg by ity of capsule 18:25: mouth 3 [place] 24 (three) Medical times Branch daily. venlafaxine Yes 112.5mg Take 112.5 Univers XR 37.5 mg 7-28 mg by ity of 24 hr 18:25: mouth [place] capsule 24 daily with Medica l breakfast. Branch baclofen 5 Yes 10mg Take 10 mg U nivers mg tablet 7-28 by mouth 2 ity of 18:25: (two) [place] [address] times Medical daily as Branch needed (back pain). insulin Yes 20U inject 20 Unive rs detemir 7-28 Units ity of (LEVEMIR 18:25: under the [place] U-100 24 skin 2 Medical INSULIN SC) (two) Branch times daily before breakfast and dinner. atorvastati Yes 80mg Take 80 mg Univers n 80 mg 7-28 by mouth ity of tablet 18:25: at [place] [address] bedtime. Medical Branch metFORMIN Yes 500mg Take 500 Uni vers 500 mg 7-28 mg by ity of tablet 18:25: mouth 2 [place] [address] (two) Medical times Branch daily with meals. clopidogreL Yes 75mg Take 75 mg Univers (PLAVIX) 75 7-28 by mouth ity of mg tablet 18:25: daily. [place] [address] Medical Branch desipramine 2020-2020- No 10mg Take 10 mg Univers 10 mg 7-28 07-28 by mouth 3 ity of tablet 17:05: 00:00 (three) [place] 58 :00 times Medical daily. Branch BUPRENORPHI 2020-0 2020- No 10mg Place 10 U nivers NE HCL 7-28 07-28 mg in ity of BUCCAL 17:05: 00:00 cheeks [place] 58 :00 every 12 Medical (twelve) Branch hours. sotaloL 2020- No 80mg Take 80 mg Uni vers (SOTALOL 02-26 by mouth ity of AF) 80 mg 17:05: 00:00 daily. [place] tablet 58 :00 Medical Branch amLODIPine- 2020- No amlodipine Univers benazepriL 02-26- 10 ity of 10-40 mg 17:05: 00:00 mg-benazep [place] per capsule 58 :00 ril 40 mg Med ical capsule Branch amLODIPine Yes 10mg 10 mg, Unive rs (NORVASC) -28 Oral, ity of tablet 10 14:00: DAILY, [place] mg 00 First dose Medical (after Branch last modificati on) on Wed02/26/21 at 0900, Until Discontinu ed, Routine sennosides Yes [id number] 8.6mg Take 1 Univers 8.6 mg 7-28 tablet by ity of tablet 00:00: mouth 2 (two) Medical times Branch daily. polyethylen Yes [id number] 17g Take 1 Univers e glycol 7-28 Packet by ity of 3350 17 00:00: mouth 2 [place] gram powder 00 (two) Medical times Branch daily. pantoprazol Yes [id number] 40mg Take 1 Univers e 40 mg EC 7-28 tablet by ity of tablet 00:00: mouth [place] 00 daily. Medical Branch bisacodyL Yes [id number] 10mg Insert 1 Univers 10 mg 7-28 Suppositor ity of suppository 00:00: y into [place] 00 rectum at Medical bedtime. Branch sennosides Yes [id number] 8.6mg Take 1 Univers 8.6 mg 7-28 tablet by ity of tablet 00:00: mouth 2 [place] (two) Medical times Branch daily. polyethylen Yes [id number] 17g Take 1 Univers e glycol 7-28 Packet by ity of 3350 17 00:00: mouth 2 [place] gram powder 00 (two) Medical times Branch daily. pantoprazol Yes [id number] 40mg Take 1 Univers e 40 mg EC 7-28 tablet by ity of tablet 00:00: mouth [place] 00 daily. Medical Branch bisacodyL Yes [id number] 10mg Insert 1 Univers 10 mg 7-28 Suppositor ity of suppository 00:00: y into [place] 00 rectum at Medical bedtime. Branch sennosides Yes [id number] 8.6mg Take 1 Univers 8.6 mg 7-28 tablet by ity of tablet 00:00: mouth 2 (two) Medical times Branch daily. polyethylen Yes [id number] 17g Take 1 Univers e glycol 7-28 Packet by ity of 3350 17 00:00: mouth 2 [place] gram powder (two) Medical times Branch daily. pantoprazol Yes [id number] 40mg Take 1 Univers e 40 mg EC 7-28 tablet by ity of tablet 00:00: mouth 00 daily. Medical Branch bisacodyL Yes [id number] 10mg Insert 1 Univers 10 mg 7-28 Suppositor ity of suppository 00:00: y into [place] 00 rectum at Medical bedtime. Branch sennosides Yes [id number] 8.6mg Take 1 Univers 8.6 mg 7-28 tablet by ity of tablet 00:00: mouth (two) Medical times Branch daily. polyethylen Yes [id number] 17g Take 1 Univers e glycol 7-28 Packet by ity of 3350 17 00:00: mouth 2 [place] gram powder (two) Medical times Branch daily. pantoprazol Yes [id number] 40mg Take 1 Univers e 40 mg EC 7-28 tablet by ity of tablet 00:00: mouth 00 daily. Medical Branch bisacodyL Yes [id number] 10mg Insert 1 Univers 10 mg 7-28 Suppositor ity of suppository 00:00: y into [place] 00 rectum at Medical bedtime. Branch sennosides Yes [id number] 8.6mg Take 1 Univers 8.6 mg 7-28 tablet by ity of tablet 00:00: mouth 2 (two) Medical times Branch daily. polyethylen Yes [id number] 17g Take 1 Univers e glycol 7-28 Packet by ity of 3350 17 00:00: mouth 2 [place] gram powder 00 (two) Medical times Branch daily. pantoprazol Yes [id number] 40mg Take 1 Univers e 40 mg EC 7-28 tablet by ity of tablet 00:00: mouth 00 daily. Medical Branch bisacodyL Yes [id number] 10mg Insert 1 Univers 10 mg 7-28 Suppositor ity of suppository 00:00: y into [place] 00 rectum at Medical bedtime. Branch sennosides Yes [id number] 8.6mg Take 1 Univers 8.6 mg 7-28 tablet by ity of tablet 00:00: mouth 2 (two) Medical times Branch daily. polyethylen Yes [id number] 17g Take 1 Univers e glycol 7-28 Packet by ity of 3350 17 00:00: mouth 2 [place] gram powder (two) Medical times Branch daily. bisacodyL Yes [id number] 10mg Insert 1 Univers 10 mg 7-28 Suppositor [place] of suppository 00:00: [place] 00 rectum at Medical bedtime. Branch sennosides Yes [id number] 8.6mg Take 1 Univers 8.6 mg 7-28 tablet by ity of tablet 00:00: mouth 2 (two) Medical times Branch daily. polyethylen Yes [id number] 17g Take 1 Univers e glycol 7-28 Packet by ity of 3350 17 00:00: mouth 2 [place] gram powder (two) Medical times Branch daily. bisacodyL Yes [id number] 10mg Insert 1 Univers 10 mg 7-28 Suppositor [place] of suppository 00:00: [place] 00 rectum at Medical bedtime. Branch sennosides Yes [id number] 8.6mg Take 1 Univers 8.6 mg 7-28 tablet by ity of tablet 00:00: mouth 2 [place] (two) Medical times Branch daily. polyethylen Yes [id number] 17g Take 1 Univers e glycol 7-28 Packet by ity of 3350 17 00:00: mouth 2 [place] gram powder 00 (two) Medical times Branch daily. bisacodyL Yes [id number] 10mg Insert 1 Univers 10 mg 02-26 Suppositor ity of suppository 00:00: y [place] 00 rectum at Medical bedtime. Branch pantoprazol 2020- No [id number] 40mg Take 1 Univers e 40 mg EC 02-26 10-11 tablet by ity of tablet 00:00: 00:00 mouth [place] 00 :00 daily. Medical Branch sulfamethox 2020- No [id number] 1{tbl} Take 1 Univers azole-trime - 08-11 tablet by it y of thoprim 00:00: 04:59 mouth 2 [place] 800-160 mg 00 :00 (two) Medical per tablet times Branch daily for 13 days. sulfamethox 2020- No [id number] 1{tbl} Take 1 Univers azole-trime 02-26 08-11 tablet by it y of thoprim 00:00: 04:59 mouth 2 [place] 800-160 mg 00 :00 (two) Medical per tablet times Branch daily for 13 days. clonazePAM Yes .5mg 0.5 mg, Univ ers (KLONOPIN) 02-25 Oral, ity of tablet 0.5 19:45: DAILY, [place] mg 00 First dose Medical on [facility] 02/25/21 at 1445, Until Discontinu ed, Routine amLODIPine 2020- No 5mg 5 mg, [facility] (NORVASC) 02-25 0727 Oral, ity of tablet 5 mg 19:41: 20:59 ONCE, 1 [place] 00 :[place] dose, [facility] 02/25/21 at Branch 1445, Routine clopidogreL Yes 75mg 75 mg, Univ ers (PLAVIX) 02-25 Oral, ity of tablet 75 14:00: DAILY, [place] mg 00 First dose Medical on [facility] 02/25/21 at 0900, Until Discontinu ed, Routine insulin Yes 20U 20 Units, [facility] detemir 02-25 Subcutaneo ity of U-100 12:30: us, BIDAC, [place] (LEVEMIR 00 First dose Medic al U-100 on [facility] INSULIN) 02/25/21 at injection 0730, 20 Units Until Discontinu ed
Rest ricted - To be dispensed only to: Continuati on from home Sliding Yes Subcutaneo Univ ers Scale 02-25 us, TID ity of Insulin - 02:00: MEALS+HS, [place] as Lispro 00 First dose Medical (HumaLOG) + (after Vivian Fsbg last Testing modificati on) on [facility] 02/24/21 at 2100, Until Discontinu ed, Routine atorvastati Yes 80mg 80 mg, Univ ers n (LIPITOR) 02-25 Oral, QHS, it y of tablet 80 02:00: First dose [place] mg 00 on [facility] 02/24/21 at Vivian 2100, Until Discontinu ed, Routine gabapentin Yes 600mg 600 mg, Uni vers (NEURONTIN) 02-25 Oral, TID, it y of capsule 600 01:00: First dose [place] mg 00 on [facility] 02/24/21 at Branch 2000, Until Discontinu ed, Routine sulfamethox Yes 1{tbl} 1 tablet, [facility] azole-trime 02-25 Oral, BID, it y of thoprim 01:00: [place] (BACTRIM 00 on [facility] DS) 800-160 02/24/21 at Br anch mg per 1999, tablet 1 Until tablet Discontinu ed, EDIL
Re ason for Anti-Infec tive: Documented Infection< br>Documen elaine Infection Site: Urine
D uration of Therapy: 7 days baclofen Yes 10mg 10 mg, Univers (LIORESAL) 02-24 Oral, ity of tablet 10 22:29: BIDPRN, [place] mg 21 Starting Medical [facility] 02/24/21 at 1729, Until Discontinu ed, Routine, back pain famotidine 2020- No 20mg 20 mg, Univ ers (PEPCID AC) 02-24 Oral, ity of tablet 20 15:00: 14:19 ONCE, 1 [place] mg 00 :00 dose, [facility] 02/24/21 at Vivian 1000, Routine amLODIPine 2020- No 5mg 5 mg, Unive rs (NORVASC) 02-24 Oral, ity of tablet 5 mg 14:00: 19:41 DAILY, [place] as 00 :51 First dose Medical on Wed Branch 02/24/21 at 0900, Until Discontinu ed, Routine [...] dose [place] mg 00 on Wed [facility] 02/21/21 at Branch 1630, Until Discontinu ed, [...] Q6H ABX, Medical gram/50 mL First dose [facility] Piggyback (after RTU 3.375 g last reorder) on Wed02/21/21 at 0930, Until Discontinu ed, 50 mL
Reas on for Anti-Infec tive: Documented Infection< br>Documen elaine Infection Site: Urine
D uration of Therapy: Other (see Comments) magnesium 2020-0 2020- No 2000mg 2,000 mg, Univers sulfate in 02-21 IV ity of water 2 14:15: 16:54 Infusion, [place] gram/50 mL 00 :00 ONCE, 1 Medica l (4 %) 2,000 dose, Fri Bra ndh mg 02/21/21 at piggyback 0915 pantoprazol Yes 40mg 40 mg, Univ ers e 02-21 Oral, ity of (PROTONIX) 14:00: DAILY, [place] EC tablet 00 First dose Medi maria esther 40 mg on Wed Branch 02/21/21 at 0900, Until Discontinu ed, Routine sennosides- 2020- No 1{tbl} 1 tablet, Univers docusate 02-2124 Oral, ity of sodium 14:00: 14:06 DAILY, [place] (SENOKOT-S) 00 :29 First dose Me dical [...] 2020- No Subcutaneo Uni vers Scale 02-21 0727 , AC+HS, ity of Insulin-Reg 12:30: 00:28 First dose [place] ular + Fsbg 00 :19 on Wed Medica l Testing 02/21/21 at Branch 0730, Until Discontinu ed, Routine acetaminoph Yes 650mg 650 mg, Un bib en 02-21 Oral, ity of (TYLENOL) 10:38: Q6HPRN, [place] tablet 650 43 Starting Medic al mg Fri Branch 02/21/21 at 0538, Until Discontinu ed, Routine, Pain (scale 1-3), Temp > 38.5 C NaCl 0.9% 2020- No 1000mL at 999 Uni vers (NS) bolus 02-21 mL/hr, ity of infusion 10:15: 11:19 1,000 mL, [place] as 1,000 mL 00 :00 IV Medical Piggyback, [place] ONCE, 1 dose, Wed02/21/21 at 0515, STAT cefTRIAXone 2020- No 1000mg 1,000 mg, Univers (ROCEPHIN) 02-21 IV ity of 1,000 mg in 10:02: 13:18 Piggyback, [place] NaCl 0.9% 00 :11 Q24H ABX, Medic [...] [place] 1,000 mL 00 :20 s, [facility] , Starting Wed02/21/21 at 0200, Until Wed02/21/21 at 1201, Routine clindamycin 2020- No 600mg 600 mg, IV Univers (CLEOCIN) 02-21 Piggyback, ity of injection 03:15: 03:15 ONCE, 1 [place] 600 mg 00 :00 dose, [facility] Medical 02/20/21 at Branch 2215, EDIL
Re ason for Anti-Infec tive: Documented Infection< br>Documen elaine Infection Site: Urine
D uration of Therapy: Other (see Comments)< br>Restric elaine use approved by: [employer] PROVIDER iopamidol 2020- No [id number] 120mL 120 mL, Univers (ISOVUE 02-21 Intravenou ity o f 370-500 mL) 02:33: 02:33 s, ONCE, 1 [place] injection 00 :00 dose, Maricel Medic al 120 mL 02/20/21 at Branch 2145, Routine NaCl 0.9% 2020-0 2020- No 1000mL at 999 Uni vers (NS) bolus 02-21 07-23 mL/hr, ity of infusion 02:00: 05:10 1,000 mL, [place] as 1,000 mL 00 :00 IV Medical Piggyback, Branch ONCE, 1 dose, [place] 02/20/21 at 2100, STAT clonazePAM 2020-0 Yes [id number] .5mg Take 1 Un bib 0.5 mg 6-18 tablet by ity of tablet 00:00: mouth 2 (two) Medical times Vivian daily as needed (anxiety). amLODIPine 2020-0 Yes [id number] 5mg Take 1 U nivers 5 mg tablet 6-18 tablet by ity of 00:00: mouth [place] 00 daily. [facility] Branch carvediloL 2020-0 Yes [id number] 12.5mg Take 1 Univers 12.5 mg 6-18 tablet by ity of tablet 00:00: mouth 2 (two) Medical times Vivian daily with meals. NaCl 0.9% 2020-0 Yes [id number] 2000mg Infuse U nivers (NS) SolP 6-18 2,000 mg ity of 100 mL with 00:00: every 8 [place] as ceFAZolin 00 (eight) Medical 10 gram hours. Branch SolR 2,000 mg clonazePAM 2020-0 Yes [id number] .5mg Take 1 Un bib 0.5 mg 6-18 tablet by ity of tablet 00:00: mouth 2 (two) Medical times Vivian daily as needed (anxiety). amLODIPine 2020-0 Yes [id number] 5mg Take 1 U nivers 5 mg tablet 6-18 tablet by ity of 00:00: mouth [place] 00 daily. Medical Branch carvediloL 2020-0 Yes [id number] 12.5mg Take 1 Univers 12.5 mg 6-18 tablet by ity of tablet 00:00: mouth 2 (two) Medical [facility] daily with meals. NaCl 0.9% 2020-0 Yes [id number] 2000mg Infuse U nivers (NS) SolP 6-18 2,000 mg ity of 100 mL with 00:00: every 8 [place] ceFAZolin 00 (eight) Medical 10 gram hours. Branch SolR 2,000 mg clonazePAM 2020-0 Yes [id number] .5mg Take 1 Un bib 0.5 mg 6-18 tablet by ity of tablet 00:00: mouth (two) Medical times Branch daily as needed (anxiety). amLODIPine 1-0 Yes [id number] 5mg Take 1 U nivers 5 mg tablet 6-18 tablet by ity of 00:00: mouth 00 daily. Medical Branch carvediloL 2020-0 Yes [id number] 12.5mg Take 1 Univers 12.5 mg 6-18 tablet by ity of tablet 00:00: mouth (two) Medical times Branch daily with meals. NaCl 0.9% 2021-0 Yes [id number] 2000mg Infuse U nivers (NS) SolP 6-18 2,000 mg ity of 100 mL with 00:00: every 8 [place] ceFAZolin 00 (eight) Medical 10 gram hours. Branch SolR 2,000 mg clonazePAM 1-0 Yes [id number] .5mg Take 1 Un bib 0.5 mg 6-18 tablet by ity of tablet 00:00: mouth (two) Medical times Branch daily as needed (anxiety). amLODIPine 2020-0 Yes [id number] 5mg Take 1 U nivers 5 mg tablet 6-18 tablet by ity of 00:00: mouth 00 daily. Medical Branch carvediloL 2020-0 Yes [id number] 12.5mg Take 1 Univers 12.5 mg 6-18 tablet by ity of tablet 00:00: mouth (two) Medical times Branch daily with meals. NaCl 0.9% 1-0 Yes [id number] 2000mg Infuse U nivers (NS) SolP 6-18 2,000 mg ity of 100 mL with 00:00: every 8 [place] as ceFAZolin 00 (eight) Medical 10 gram hours. Branch SolR 2,000 mg clonazePAM 2021-0 Yes [id number] .5mg Take 1 Un bib 0.5 mg 6-18 tablet by ity of tablet 00:00: mouth (two) Medical times Branch daily as needed (anxiety). clonazePAM 2021-0 Yes [id number] .5mg Take 1 Un bib 0.5 mg 6-18 tablet by ity of tablet 00:00: mouth (two) Medical times Branch daily as needed (anxiety). clonazePAM 2021-0 Yes [id number] .5mg Take 1 Un bib 0.5 mg 6-18 tablet by ity of tablet 00:00: mouth (two) Medical times Branch daily as needed (anxiety). clonazePAM 2021-0 Yes [id number] .5mg Take 1 Un bib 0.5 mg 6-18 tablet by ity of tablet 00:00: mouth (two) Medical times Branch daily as needed (anxiety). clonazePAM 2021-0 Yes [id number] .5mg Take 1 Un bib 0.5 mg 6-18 tablet by ity of tablet 00:00: mouth (two) Medical times Branch daily as needed (anxiety). clonazePAM 2021-0 Yes [id number] .5mg Take 1 Un bib 0.5 mg 6-18 tablet by ity of tablet 00:00: mouth (two) Medical times Branch daily as needed (anxiety). clonazePAM 2021-0 Yes [id number] .5mg Take 1 Un bib 0.5 mg 6-18 tablet by ity of tablet 00:00: mouth (two) Medical times Branch daily as needed (anxiety). clonazePAM 2021-0 Yes [id number] .5mg Take 1 Un bib 0.5 mg 6-18 tablet by ity of tablet 00:00: mouth (two) Medical times Branch daily as needed (anxiety). amLODIPine 2020-2020- No [id number] 5mg Take 1 Univers 5 mg tablet 6-18 - tablet by it y of 00:00: 00:00 mouth [place] 00 :00 daily. Medical Branch carvediloL 2020-2020- No [id number] 12.5mg Take 1 Univers 12.5 mg 6-18 - tablet by ity of tablet 00:00: 00:00 mouth 2 [place] 00 :00 (two) Medical times Branch daily with meals. NaCl 0.9% 2020-2020- No [id number] 2000mg Infuse Univers (NS) SolP 6-18 07-28 2,000 mg ity o f 100 mL with 00:00: 00:00 every 8 [place] ceFAZolin 00 :00 (eight) Medical 10 gram hours. Branch SolR 2,000 mg Humulin R Humulin R 2020-0 Yes [place] [address] [facility] [address] 8-07 [place] PRN for BG [facility] - 00:00: >200 1 hr [facility] 00 after l meals Outpati ent Clinics baclofen 2020-0 Yes [id number] 10mg Q.5D Take 1 Meth ivette (LIORESAL) 3-11 tablet (10 st 10 MG 00:00: mg total) Hospita tablet 00 by mouth 2 l (two) times a day. insulin 2020-0 Yes Q.5D Inject [facility]i lispro 1-[address] (HumaLOG) 15:04: skin 2 Hospit a 100 unit/mL 33 (two) l injection times a day before meals. (PER SLIDING SCALE) gabapentin 2020-0 Yes 600mg Q.[id number] Take 600 [facility] (NEURONTIN) 1-21 [id number] mg by s t 600 mg 15:04: 3D mouth 3 Hospita tablet 33 (three) l times a day. tamsulosin 2020-0 Yes .4mg QD Take 0.4 Met hodi (FLOMAX) 1-[address] 0.4 mg 15:04: mouth Hospita capsule,ext 33 every l ended morning. release 24hr metFORMIN 2020-0 Yes 500mg Q.[id number] Take 500 [facility] (GLUCOPHAGE 1-21 [id number] mg by s t ) 500 mg [...] Hospita enteric 33 l coated tablet docusate Yes Take by Method i sodium 1-[address] (STOOL 15:04: Hospita SOFTENER 33 l ORAL) buprenorphi Yes 8mg Q.5D 8 mg 2 Meth ivette ne HCL 1-06 (two) st (SUBUTEX) 8 00:00: times a Hos ivkram mg tablet, 00 day. l sublingual Pen [facility] Pen [facility] 2018-08 Yes [place] [address] 1-11 [place] needle [facility] - 00[facility]00: Memoria 00 [facility] ent Clinics Lancets Lancets 2018-08 Yes [place] [address] -11 [facility] - 00:00: Memoria 00 [facility] ent [facility] desipramine Yes 10mg QD Take 10 mg [facility] (NOPRAMIN) 8-[address] 10 MG 00:00: nightly. Hospita tablet 00 l sotalol Yes 80mg QD Take 80 mg Meth ivette (BETAPACE) [address] 80 MG 00:00: daily. [...] 6-27 st 32 gauge x 00:00: Hospita 532" 00 l needle One Touch One Touch Yes [place] [address] [facility] [address] Ultra Test Ultra Test 5-02 [place] test blood [facility] - Strips Strips 00:00: glucose Memori a 00 l [facility] ent [facility] sertraline Yes 1{tbl} QD Take 1 Met hodi (ZOLOFT) 3-[address] 100 MG 00:00: mouth Hospita tablet 00 daily. l Blood Blood 2018- Yes Bryant as [facility] Glucose Glucose 2-21 [place] directed Luke s - Test Strip Test Strip 00:00: [facility] l STRIPS OF Outpati RECORD) ent Clinics ARIPiprazol Yes TK 1 T PO U nivers e 10 mg 2-09 QD ity of tablet 00:00: [place] [facility] ARIPiprazol 2017 Yes TK 1 T PO U nivers e 10 mg 2-09 QD ity of tablet 00:00: [place] [facility] ARIPiprazol Yes TK 1 T PO U nivers e 10 mg 2-09 QD ity of tablet 00:00: [place] [facility] ARIPiprazol Yes TK 1 T PO U nivers e 10 mg 2-09 QD ity of tablet 00:00: [place] [facility] ARIPiprazol Yes TK 1 T PO U nivers e 10 mg 2-09 QD ity of tablet 00:00: [place] [facility] ARIPiprazol Yes TK 1 T PO U nivers e 10 mg 2-09 QD ity of tablet 00:00: [place] [facility] ARIPiprazol Yes TK 1 T PO U nivers e 10 mg 2-09 QD ity of tablet 00:00: [place] [facility] ARIPiprazol Yes TK 1 T PO U nivers e 10 mg 2-09 QD ity of tablet 00:00: [place] [facility] ARIPiprazol 2017 Yes TK 1 T PO U nivers e 10 mg 2-09 QD ity of tablet 00:00: [place] [facility] ARIPiprazol 2017 Yes TK 1 T PO U nivers e 10 mg 2-09 QD ity of tablet 00:00: [place] [facility] ARIPiprazol Yes TK 1 T PO U nivers e 10 mg 2-09 QD ity of tablet 00:00: [place] [facility] ARIPiprazol 2017-0 2020- No TK 1 T PO Univers e 10 mg 2-09 07-28 QD ity of tablet 00:00: 00:00 [place] 00 :00 [facility] 2015-0 Yes [id number] Apply to Univers ne 3-05 area(s) 2 ity of acetonide 00:00: (two) [place] (TRIDERM) 00 times Medical 0.1 % cream daily. Branch triamcinolo 2014-0 Yes [id number] Apply to Univers ne 3-05 area(s) 2 ity of acetonide 00:00: (two) [place] (TRIDERM) 00 times Medical 0.1 % cream daily. Branch triamcinolo 2014-0 Yes [id number] Apply to Univers ne 3-05 area(s) 2 ity of acetonide 00:00: (two) [place] (TRIDERM) 00 times Medical 0.1 % cream daily. Branch triamcinolo 2014-0 Yes [id number] Apply to Univers ne 3-05 area(s) 2 ity of acetonide 00:00: (two) [place] (TRIDERM) 00 times Medical 0.1 % cream daily. Branch triamcinolo 2014-0 Yes [id number] Apply to Univers ne 3-05 area(s) 2 ity of acetonide 00:00: (two) [place] (TRIDERM) 00 times Medical 0.1 % cream daily. Branch triamcinolo 2014-0 Yes [id number] Apply to Univers ne 3-05 area(s) 2 ity of acetonide 00:00: (two) [place] (TRIDERM) 00 times Medical 0.1 % cream daily. Branch triamcinolo 2014-0 Yes [id number] Apply to Univers ne 3-05 area(s) 2 ity of acetonide 00:00: (two) [place] (TRIDERM) 00 times Medical 0.1 % cream daily. Branch triamcinolo 2014-0 Yes [id number] Apply to Univers ne 3-05 area(s) 2 ity of acetonide 00:00: (two) [place] (TRIDERM) 00 times Medical 0.1 % cream daily. Branch triamcinolo 2014-0 Yes [id number] Apply to Univers ne 3-05 area(s) 2 ity of acetonide 00:00: (two) [place] (TRIDERM) 00 times Medical 0.1 % cream daily. Branch triamcinolo 2014-0 Yes [id number] Apply to Univers ne 3-05 area(s) 2 ity of acetonide 00:00: (two) [place] (TRIDER) 00 times Medical 0.1 % cream daily. Branch triamcinbryson Yes [id number] Apply to [facility] 10-04 area(s) 2 ity of acetonide 00:00: (two) [place] (TRIDER) 00 times Medical 0.1 % cream daily. Branch triamcinbryson 2021- No [id number] Apply to [facility] 10-04 07-28 area(s) 2 ity of acetonide 00:00: 00:00 (two) [place] (TRIDERM) 00 :00 times Medical 0.1 % cream daily. Branch [id number] Yes [place] as [facility] [...] with [facility] - evening [facility] meal l Outpati ent Clinics OneTouch OneTouch Yes Bryant USE [...] [facility] - MOUTH [facility] TWICE l DAILY [facility] Indocin Indocin Yes [place] [address] [place] with food [facility] - or milk [facility] l [facility] Clinics Desipramine Desipramine Yes [place] [address] HCl HCl [facility] - [facility] l [facility] Clinics D3 Adult D3 Adult Yes [place] [address] [facility] - [facility] l [facility] Clinics Immunizations Ordered Filled Immunization Date Status Comments [facility] Immunization Name Name Pneumococcal 2011-08-31 Completed [...] 00:00:00 [place] Med ical PPSV23 (PNEUMOVAX) Branch Vital Signs Vital Name Observation Time Observation Value Comments Source Systolic blood 2021-09-10 19:49:00 116 mm[Hg] [facility] Medicine Diastolic blood 2021-09-10 19:49:00 76 mm[Hg] [facility] Medicine Heart rate 2021-09-10 19:49:00 65 /min [facility] Body temperature 2021-09-10 19:49:00 37 Mitzi [facility] Respiratory rate 2021-09-10 19:49:00 16 /min [facility] Body height 2021-09-10 19:49:00 160 cm [facility] Body weight 2021-09-10 19:49:00 65.772 kg [facility] BMI 2021-09-10 19:49:00 25.69 kg/m2 [facility] Systolic blood 2021-04-01 05:00:00 127 mm[Hg] Univer sity of [facility] Diastolic blood 2021-04-01 05:00:00 60 mm[Hg] Unive rsity of [facility] Heart rate 2021-04-01 05:00:00 62 /min Universi ty of [facility] Respiratory rate 2021-04-01 05:00:00 17 /min Univ ersity of [place] [facility] Oxygen saturation in 2021-04-01 05:00:00 98 /min University of Arterial blood by [place] [employer] maria esther Pulse oximetry Branch Body temperature 2021-04-01 04:00:00 36.72 Mitzi Univ ersity of [place] [facility] Body weight 2021-04-01 00:54:00 63.504 kg Universi ty [facility] [place] [facility] BMI 2021-04-01 00:54:00 23.30 kg/m2 [facility]i ty [facility] [place] [facility] Systolic blood 2021-02-26 20:30:00 120 mm[Hg] Univer sity of pressure [place] [facility] Diastolic blood 2021-02-26 20:30:00 76 mm[Hg] Unive rsity of pressure [place] [facility] Heart rate 2021-02-26 20:30:00 81 /min Universi ty [facility] [place] [facility] Body temperature 2021-02-26 20:30:00 36.56 Mitzi Univ ers[facility] [place] [facility] Respiratory rate 2021-02-26 20:30:00 18 /min Univ ersity of [place] [facility] Oxygen saturation in 2021-02-26 20:30:00 98 /min University of Arterial blood by [place] [employer] maria esther Pulse oximetry Branch Body height 2021-02-21 10:48:00 165.1 cm Universi ty [facility] [place] [facility] Body weight 2021-02-21 10:48:00 63.504 kg [facility]i ty [facility] [place] [facility] BMI 2021-02-21 10:48:00 23.30 kg/m2 [facility]i [facility] [place] [facility] Systolic blood 2021-02-14 15:12:00 144 mm[Hg] Univer sity of pressure [place] [facility] Diastolic blood 2021-02-14 15:12:00 76 mm[Hg] Unive rsity of pressure [place] [facility] Heart rate 2021-02-14 15:12:00 60 /min Universi ty [facility] [place] [facility] Body temperature 2021-02-14 15:12:00 36.67 Mitzi Univ ers[facility] [place] [facility] Body height 2021-02-14 15:12:00 162.6 cm Universi ty [facility] [place] [facility] Oxygen saturation in 2021-02-14 15:12:00 98 /min University of Arterial blood by [place] [employer] maria esther Pulse oximetry Branch Systolic blood 2019-02-23 20:43:00 146 mm[Hg] Univer sity of pressure [place] Medical Vivian Diastolic blood 2019-02-23 20:43:00 86 mm[Hg] Unive rsity of pressure [place] [facility] Heart rate 2019-02-23 20:43:00 66 /min Universi ty of [place] [facility] Vivian Body temperature 2019-02-23 20:43:00 36.61 Mitzi Univ ersity [facility] [place] [facility] Respiratory rate 2019-02-23 20:43:00 12 /min Univ ersity [facility] [place] [facility] Body height 2019-02-23 20:43:00 162.6 cm [facility]i ty [facility] [place] [facility] Body weight 2019-02-23 20:43:00 67.45 kg [facility]i ty [facility] [place] [facility] BMI 2019-02-23 20:43:00 25.52 kg/m2 Universi ty of [facility] Oxygen saturation in 2019-02-23 20:43:00 97 /min University of Arterial blood by [facility] Pulse oximetry Branch Systolic blood 2019-02-23 20:43:00 146 mm[Hg] Univer sity of pressure [place] [facility] Diastolic blood 2019-02-23 20:43:00 86 mm[Hg] Unive rsity of pressure [place] [facility] Heart rate 2019-02-23 20:43:00 66 /min Universi ty [facility] [place] [facility] Body temperature 2019-02-23 20:43:00 36.61 Mitzi Univ ersity of [facility] Respiratory rate 2019-02-23 20:43:00 12 /min Univ ersity of [facility] Body height 2019-02-23 20:43:00 162.6 cm [facility] [place] [facility] Body weight 2019-02-23 20:43:00 67.45 kg [facility]i [facility] [place] [facility] BMI 2019-02-23 20:43:00 25.52 kg/m2 [facility] [place] [facility] Oxygen saturation in 2019-02-23 20:43:00 97 /min University of Arterial blood by [place] [employer] [facility] Pulse oximetry Branch Procedures Procedure Date / Time Performing Clinician Source Performed BLOOD CULTURE SCREEN 2021-04-01 02:34:[address] [facility] CT HEAD WO CONTRAST 2021-04-01 02:07:16 Laz Lock [facility] URINALYSIS 2021-04-01 01:55:00 Lock, Laz [facility] COVID-19 (ID NOW RAPID 2021-04-01 01:45:00 Laz Lock [facility] TESTING) Medical Branch CBC WITH DIFF 2021-04-01 01:41:00 Laz Lock [facility] PROTHROMBIN TIME / INR 2021-04-01 01:41:00 Laz Lock [facility] ACTIVATED PARTIAL 2021-04-01 01:41:[address] [facility] THRMPLAS RADHA [facility] BLOOD CULTURE SCREEN 2021-04-01 01:38:[address] [facility] LIPASE 2021-04-01 01:38:00 Laz Lock [facility] TROPONIN I 2021-04-01 01:38:00 Laz Lock [facility] COMP. METABOLIC PANEL 2021-04-01 01:38:00 Laz Lock [facility] ([id number]) [facility] Branch N-TERMINAL PRO-BNP 2021-04-01 01:38:00 Laz Lock [facility] AC PANEL 21 + LACTIC 2021-04-01 01:37:00 Laz Lock [facility] ACID [facility] NOTICE OF PRIVACY 2021-04-01 00:48:38 Doctor Unassigned, No [facility] PRACTICES Name [facility] CONSENT/REFUSAL FOR 2021-04-01 00:46:04 Doctor Unassigned, No [facility] DIAGNOSIS AND TREATMENT Name [facility] REFERRAL- 2021-03-21 05:01:00 Doctor Unassigned, No [facility] REQUEST/RESPONSE Name [facility] POCT GLUCOSE (AUTOMATED) 2021-02-26 22:10:00 [facility]) 2021-02-26 17:16:00 [facility] (AUTOMATED) 2021-02-26 13:42:00 Etta Mckeon Un [facility] BASIC METABOLIC PANEL 2021-02-26 10:38:00 Lillie Wilkins [facility] (NA, K, CL, CO2, Medical Branch GLUCOSE, BUN, CREATININE, CA) CBC WITH DIFF 2021-02-26 10:38:00 [facility] 2021-02-26 02:23:00 [facility] POCT GLUCOSE (AUTOMATED) 2021-02-25 21:53:00 Etta Mckeon [facility] POCT GLUCOSE (AUTOMATED) 2021-02-25 16:05:00 Etta Mckeon [facility] POCT GLUCOSE (AUTOMATED) 2021-02-25 12:38:00 Etta Mckeon Un [facility] BASIC METABOLIC PANEL 2021-02-25 08:09:[address] [facility] (NA, K, CL, CO2, Medical Branch GLUCOSE, BUN, CREATININE, CA) CBC WITH DIFF 2021-02-25 08:09:00 Sarah Ricketts [facility] POCT GLUCOSE (AUTOMATED) 2021-02-25 02:14:00 Etta Mckeon Un [facility] POCT GLUCOSE (AUTOMATED) 2021-02-24 21:52:00 Etta Mckeon Un [facility] POCT GLUCOSE (AUTOMATED) 2021-02-24 16:38:00 Etta Mckeon Un [facility] POCT GLUCOSE (AUTOMATED) 2021-02-24 12:35:00 Etta Mckeon Un iversity of [facility] BASIC METABOLIC PANEL 2021-02-24 08:47:00 Lillie Wilkins [facility] (NA, K, CL, CO2, Medical Branch GLUCOSE, BUN, CREATININE, CA) CBC WITH DIFF 2021-02-24 08:47:00 [facility] GLYCOS[facility]EMOGLOBIN 2021-02-24 08:47:[address] [facility] (A1C) [facility] POCT GLUCOSE (AUTOMATED) 2021-02-24 01:40:00 Etta Mckeon Un [facility] POCT GLUCOSE (AUTOMATED) 2021-02-23 22:45:00 Etta Mckeon Un [facility] POCT GLUCOSE (AUTOMATED) 2021-02-23 16:55:00 Etta Mckeon Un [facility] POCT GLUCOSE (AUTOMATED) 2021-02-23 14:08:00 Etta Mckeon Un [facility] BASIC METABOLIC PANEL 2021-02-23 08:46:[address] [facility] (NA, K, CL, CO2, Medical Branch GLUCOSE, BUN, CREATININE, CA) CBC WITH DIFF 2021-02-23 08:46:00 [facility] POCT GLUCOSE (AUTOMATED) 2021-02-23 02:23:00 Etta Mckeon Un [facility] POCT GLUCOSE (AUTOMATED) 2021-02-22 22:50:00 Etta Mckeon Un [facility] POCT GLUCOSE (AUTOMATED) 2021-02-22 17:08:00 Etta Mckeon Un [facility] BASIC METABOLIC PANEL 2021-02-22 09:31:[address] [facility] (NA, K, CL, CO2, Medical Branch GLUCOSE, BUN, CREATININE, CA) CBC WITH DIFF 2021-02-22 09:31:00 Sarah Ricketts [facility] POCT GLUCOSE (AUTOMATED) 2021-02-22 01:56:00 Etta Mckeon Un [facility] POCT GLUCOSE (AUTOMATED) 2021-02-21 21:28:00 Rosaile Jaclyn Uni versity [facility] POCT GLUCOSE (AUTOMATED) 2021-02-21 17:19:00 Wiggins Jaclyn Uni versity [facility] POCT GLUCOSE (AUTOMATED) 2021-02-21 14:48:00 Wiggins [facility] 2021-02-21 11:17:00 [facility] 2021-02-21 11:17:00 Joseph [facility] HEPATIC FUNCTION PANEL 2021-02-21 11:17:00 Gene Ruiz [facility] ([id number]) (ALB,T.PRO,[facility] Medical Branch T,BU/BC,ALT,AST,ALK PHOS) BASIC METABOLIC PANEL 2021-02-21 11:17:00 [facility] (NA, K, CL, CO2, Medical Branch GLUCOSE, BUN, CREATININE, CA) CBC WITH DIFF 2021-02-21 11:17:00 [facility] INR 2021-02-21 11:17:00 Gene Ruiz [facility] ACTIVATED PARTIAL 2021-02-21 11:17:00 Gene Ruiz [facility] L[facility] ACID WHOLE BLOOD 2021-02-21 11:17:00 [facility]ST 1 VW 2021-02-21 02:52:40 Elsa Landry [facility] CT ABDOMEN PELVIS W 2021-02-21 02:39:56 Elsa Landry [facility] URINALYSIS 2021-02-21 01:08:00 Joseph [facility] URINE CULTURE 2021-02-21 01:08:00 Joseph [facility] HB ECG ROUTINE & RHYTHM 2021-02-21 01:01:32 Elsa Landry [facility] BLOOD CULTURE SCREEN 2021-02-21 00:58:00 Shefali Ruiz [facility] LIPASE 2021-02-21 00:58:00 Joseph [facility] TROPONIN I 2021-02-21 00:58:00 Joseph [facility] HEPATIC FUNCTION PANEL 2021-02-21 00:58:00 Joseph [facility] ([id number]) (ALB,T.PRO,[facility] T,BU/BC,ALT,AST,ALK PHOS) COMP. METABOLIC PANEL 2021-02-21 00:58:00 Shefali Ruiz [facility] ([id number]) Medical Branch CBC WITH DIFF 2021-02-21 00:58:00 Shefali Ruiz [facility] COVID-19 (ID NOW RAPID 2021-02-21 00:58:00 Shefali Ruiz [facility] TESTING) Medical Branch LACTIC ACID WHOLE BLOOD 2021-02-21 00:57:00 Shefali Ruiz [facility] NOTICE OF PRIVACY 2021-02-21 00:23:04 Doctor Unassigned, No [facility] PRACTICES Name [facility] PATIENT QUESTIONNAIRE 2021-02-14 05:01:00 Doctor Unassigned, No 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 [code starting of Medi cine = 92007] 09/10/2021 until 09/10/2022 Future Scheduled 2021-09-10 CT CHEST HIGH 1 Occurrences [employer] [facility] 14:14:59 RESOLUTION WO starting of Medicine CONTRAST [code = 09/10/2021 until 33023-4] 09/10/2022 Future Scheduled 2021-09-10 Screening for [employer] [facility] 14:00:29 malignant neoplasm of of Med icine colon (procedure) [code = 100874350] Future Scheduled 2021-09-10 COVID-19 Vaccine (1) [employer] [facility] 14:00:29 [code = COVID-19 of Medicine Vaccine (1)] Future Scheduled 2021-09-10 TETANUS SHOT (ADULT) [employer] [facility] 14:00:29 [code = TETANUS SHOT of Medi cine (ADULT)] Future Scheduled 2021-09-10 Hepatitis C screening [employer] [facility] 14:00:29 (procedure) [code = of Medic ine 766610126] Future Scheduled 2021-09-10 ZOSTER VACCINE (1 of [employer] Test 14:00:29 2) [code = ZOSTER of Medicin e VACCINE (1 of 2)] Future Scheduled 2021-09-10 FLU VACCINE > 6 [employer] [facility] 14:00:29 MONTHS [code = FLU of Medici ne VACCINE > 6 MONTHS] Future Scheduled 2021-09-10 FALL SCREEN [code = [employer] [facility] 14:00:29 FALL SCREEN] of Medicine Future Scheduled 2021-09-10 Pneumococcal 65+ (1 [employer] [facility] 14:00:29 of 1 - PPSV23) [code of Medi cine = Pneumococcal 65+ (1 of 1 - PPSV23)] Future Scheduled 2021-09-10 MEDICARE AWV Jaren Alyssa [employer] Test 14:00:29 (Initial) [code = [...] [facility] (procedure) [code = Hospital [id number]] Future Scheduled COLONOSCOPY SCREENING [facility] Test [code = COLONOSCOPY Hospital SCREENING] Future Scheduled SHINGLES VACCINES Method ist Test (#1) [code = SHINGLES Hospit al VACCINES (#1)] Future Scheduled INFLUENZA VACCINE Method ist Test [code = INFLUENZA Hospital VACCINE] Encounters Start End Encounter Admission Attending Care Care Encounter Source Date/Time Date/Time Type Type Clinicians Facility Department ID 2021-08-27 Outpatient Loera, [facility] [id number] 14:24:19 [facility] [id number] [facility] 2021-08-27 Outpatient Loera, [facility] [id number] 14:23:28 Bryant 47704 [facility] 2021-08-27 Outpatient Loera, [facility] [id number] 13:11:30 Bryant 13270 [facility] 2021-08-27 Outpatient Loera, [facility] [id number] 12:58:11 Bryant 66977 [facility] 2021-08-27 [facility], [facility] [id number] 12:50:45 Bryant 73856 [facility] 2021-08-27 Outpatient Loera, [facility] [id number] 12:33:09 Bryant 99855 [facility] 2021-08-27 Outpatient Loera, [facility] [id number] 11:21:28 Bryant 83566 [facility] 2021-08-27 Outpatient Loera, [facility] [id number] 11:14:28 Bryant [id number] [facility] 2021-08-27 Outpatient Loera, [facility] [id number] 11:07:10 Bryant 66980 [facility] 2021-08-27 Outpatient Loera, [facility] [id number] 11:01:07 Bryant 76864 [facility] 2021-08-27 Outpatient Loera, [facility] [id number] 11:00:53 Bryant 99638 [facility] 2021-08-27 Outpatient Loera, [facility] [id number] 10:58:57 Bryant [id number] [facility] 2021-06-02 Emergency [facility] [id number] Univers 19:11:59 ity [facility] 2021-06-02 Emergency [facility] [id number] Univers 10:12:20 ity [facility] 2021-06-02 Emergency [facility] [id number] Univers 00:43:37 ity [facility] 2019-10-02 Inpatient CalvilloARMANDO SILAS [id number] [facility] 08:00:00 Trever [facility] 2019-09-19 Inpatient ARMANDO Vernon RADI [id number] [facility] 11:00:00 Trever [id number] [facility] 2021-10-24 2021-10-[address] [facility] [id number] [facility] 00:00:00 00:00:00 DIPABEN 2021-10-23 2021-10-23 ambulatory [facility]MLC [facility] [id number] [facility] 2021-10-20 2021-10-20 ambulatory [facility]LMLC [facility] [id number] [facility] 2021-10-17 2021-10-17 Outpatient B[facility] [id number] [address] [place] [address] 13:09:29 13:09:29 Donnie de león of Medicin e 2021-09-29 2021-09-29 Outpatient JASWINDER [facility] [id number] [facility] 00:00:00 00:00:00 DIPABEN 2021-09-22 2021-09-22 ambulatory STLMLC [facility]LML[facility] [id number] [facility] 2021-09-22 2021-09-22 ambulatory [facility]LMLC [facility] [id number] [facility]00 [facility] 2021-09-10 2021-09-10 Office LALITO, ABBIE 1.2.840.[id number] [place] [address] 13:40:43 14:43:07 Visit DIPABEN AMBULATOR 350.1.13.21 College Y 0.2.7.2.686 [id number] Medi carmelina 315 e 2021-08-26 2021-08-26 Refill Simran, [facility] 1.2.840.[id number] [place] [address] 00:00:00 00:00:00 Angel HEALTH 350.1.13.10 it y of CANCER 4.2.7.2.686 [facility] [id number] Med ical MDA 144 Branch 2021-07-14 2021-07-14 ambulatory STLMLC [facility] [id number] [facility]00 [facility] 2021-07-08 2021-07-08 ambulatory [facility]LMLC STLC [id number] [facility]00 [facility] 2021-07-03 2021-07-03 Outpatient Katy COLIN [facility] [id number] Univers 10:00:00 10:00:00 SAWYER [id number] [facility] 2021-07-03 2021-07-03 Outpatient Katy COLIN [facility] [id number] Univers 10:00:00 10:00:00 SAWYER [facility] 2021-06-11 2021-06-11 [facility] 1.2.840.114 [id number] Univers 00:00:00 00:00:00 [facility] 350.1.13.10 it y of CANCER 4.2.7.2.686 [facility] [id number] [address] 2021-05-15 2021-05-15 Outpatient STLMLC STLC [id number] [facility]00 [facility] 2021-05-09 2021-05-09 [facility] 1.2.840.114 [id number] Univers 00:00:00 00:00:00 [facility] 350.1.13.10 it y of Cancer 4.2.7.2.686 [facility] [id number] [address] 2021-04-16 2021-04-16 Outpatient STLMLC STLC [id number] [facility]00 [facility] 2021-04-14 2021-04-14 Outpatient STLMLC STLC [id number] [facility]00 [facility] 2021-04-14 2021-04-14 Outpatient STLMLC [facility]ML[facility] [id number] [facility]00 [facility] 2021-04-14 2021-04-14 Outpatient [facility]LMLC STLC [id number] [facility]00 [facility] 2021-04-11 2021-04-11 [facility] [id number] [facility]00 [facility] 2021-04-04 2021-04-04 [facility] [id number] Univers 10:30:00 10:30:00 NANCI [id number] ity [facility] 2021-04-04 2021-04-04 [facility] [id number] Univers 10:30:00 10:30:00 NANCI [facility] 2021-03-31 2021-04-01 Emergency [facility] [id number] Univers 19:55:00 01:41:00 Laz Sullivan 350.1.13.10 i [facility] 4.2.7.2.686 [facility] [id number] [facility] 084 Branch 2021-03-21 2021-03-21 [facility] [id number] 2021-03-21 2021-03-21 Orders Doctor MILTON 1.2.840.114 [id number] Univers 00:00:00 00:00:00 Only Unassigned, MARIA C 350.1.13.10 ity [facility] 4.2.7.2.686 [facility] [id number] [facility] 009 Branch 2021-03-20 2021-03-20 [facility] [id number] [facility]00 [facility] 2021-03-07 2021-03-07 [facility] [id number] [facility]00 [facility] 2021-03-07 2021-03-07 [facility] [id number] [facility]00 [facility] 2021-02-28 2021-02-28 Outpatient Katy JETER [facility] [id number] Univers 10:30:00 10:30:00 BETTYE [id number] ity [facility] 2021-02-28 2021-02-28 Outpatient Katy JETER [facility] [id number] Univers 00:00:00 00:00:00 BETTYE [facility] 2021-02-27 2021-02-27 Outpatient [facility] [id number] [facility]00 [facility] 2021-02-27 2021-02-27 Out[facility] [id number] [facility]00 [facility] 2021-02-27 2021-02-27 Transition Maria L Montanez 1.2.840.114 [id number] Univers 00:00:00 00:00:00 of Care Niya Tobar 350.1.13.10 it y of [place] 4.2.7.2.686 [facility] [id number] [place] [address] Branch 2021-02-20 2021-02-26 [facility] AlissonmoElsa 1.2.840. 114 [id number] Univers 19:39:00 18:25:00 Encounter Wiggins Jaclyn Maria C 350.1.13.10 ity [facility] 4.2.7.2.686 Angel Camacho [id number] [place] [id number] Branch 2021-02-24 2021-02-24 Outpatient [facility] [id number] [facility]00 [facility] 2021-02-19 2021-02-19 Outpatient [facility]MLC [facility] [id number] [facility]00 [facility] 2021-02-17 2021-02-17 Outpatient [facility] [id number] [facility]00 [facility] 2021-02-14 2021-02-[address] [facility] 1.2.840.114 [id number] Univers 10:04:09 11:24:24 Visit Bettye SPECIALTY 350.1.13.10 ity of [place] [facility] 4.2.7.2.686 [place] [phone] Ca reina FUENTES [address] [place] [address] 2021-02-14 2021-02-14 [facility] [id number] Univers 10:00:00 10:00:00 BETTYE [id number] ity [facility] 2021-02-14 2021-02-14 [facility] [id number] Univers 10:00:00 10:00:00 BETTYE [facility] 2021-02-14 2021-02-14 Orders Doctor MILTON 1.2.840.114 [id number] Univers 00:00:00 00:00:00 Only Unassigned, MARIA C 350.1.13.10 ity of [place] [facility] 4.2.7.2.686 Dante as [id number] [facility] 009 Vivian 2021-02-10 2021-02-10 Outpatient R [facility] [id number] Univers 14:00:00 14:00:00 [id number] ity [facility] 2021-02-10 2021-02-10 Outpatient R [facility] [id number] Univers 14:00:00 14:00:00 ity [facility] 2021-01-20 2021-01-20 Transition Maria L Montanez 1.2.840.114 [id number] Univers 00:00:00 00:00:00 of Care Niya Tobar 350.1.13.10 [place]2.[place] [id number] [facility] 403 Branch 2021-01-01 2021-01-01 [facility] [id number] [facility]00 [facility] 2020-12-23 2020-12-23 Out[facility] [id number] [facility]00 [facility] 2020-12-022020-12-02 Outpatient [facility]MLC [facility] [id number] [facility]00 [facility] 2020-11-07 2020-11-07 [facility], 1.2.840.1 [id number] Methodi 13:30:00 23:59:00 Encounter Arvind 72403.1.[address] [place] 3.430.2.7 Hospit a .3.892883 l .8 2020-11-07 2020-11-07 Travel 1.2.840.1 [id number] [id number] Methodi 00:00:00 00:00:[address] 3.430.2.7 0.2.7.3.698 Ho spita .3.357082 084.8 l .8 2020-10-18 2020-10-18 Travel 1.2.840.1 1.2.405.386 [id number] Methodi 00:00:00 00:00:[address] 3.430.2.7 0.2.7.3.698 Ho spita .3.696738 084.8 l .8 2020-10-15 2020-10-15 Outpatient [facility] [id number] [facility] 00:00:00 [facility] 2020-10-15 2020-10-15 [facility], 1.2.840.1 [id number] Methodi 00:00:00 00:00:00 Orders Arvind 49490.1.[address] [place] 3.430.2.7 Hospit a .3.704431 l .8 2020-09-25 2020-09-25 Outpatient [facility]MLC [facility] [id number] [facility] 2020-09-23 2020-09-23 Outpatient [facility] [id number] [facility] 2020-08-23 2020-08-23 Outpatient [facility]LMLC [facility] [id number] [facility]00 [facility] 2020-08-20 2020-08-20 Outpatient [facility]LMLC [facility] [id number] [facility]00 [facility] 2020-08-14 2020-08-14 Outpatient [facility]LMLC [facility] [id number] [facility]00 [facility] 2020-08-12 2020-08-12 Outpatient [facility]LMLC [facility] [id number] [facility]00 [facility] 2020-08-09 2020-08-09 Outpatient [facility]LMLC [facility] [id number] [facility]00 [facility] 2020-03-22 2020-03-22 [facility] [id number] 08:45:00 08:45:[address] Luke s - Drive [facility] Family Medicine l Medicine Outpati ent Clinics 2020-03-08 2020-03-08 [facility] [id number] 10:26:00 10:26:[address] Luke s - Drive [facility] Family Medicine l Medicine Outpati ent Clinics 2020-03-05 2020-03-05 [facility] [id number] 16:14:00 16:14:[address] Luke s - Drive [facility] Family Medicine l Medicine Outpati ent Clinics 2020-03-01 2020-03-01 [facility] [id number] 10:00:00 10:00:[address] Luke s - Drive [facility] Family Medicine l Medicine Outpati ent Clinics 2020-03-01 2020-03-01 [facility] [id number] 10:00:00 10:00:[address] Luke s - Drive [facility] Family Medicine l Medicine Outpati ent Clinics 2020-01-10 2020-01-10 [facility] [id number] 13:52:00 13:52:00 t Specialty/U Jessica kes - Specialty rology Memori a /Urology Clinic l Clinic Outpati ent Clinics 2019-12-28 2019-12-28 [facility] [id number] 13:15:00 13:15:00 t Specialty/U Jessica kes - Specialty rology Memori a /Urology Clinic l Clinic Outpati ent Clinics 2019-11-16 2019-11-16 [facility] [id number] 15:00:00 15:00:00 t Specialty/U Jessica kes - Specialty rology Memori a /Urology Clinic l Clinic Outpati ent Clinics 2019-10-20 2019-10-20 [facility] [id number] 10:09:00 10:09:00 t Specialty/U Jessica kes - Specialty rology Memori a /Urology Clinic l Clinic Outpati ent Clinics 2019-10-18 2019-10-18 [facility] [id number] 08:30:00 08:30:00 t Specialty/U Jessica [facility] Clinic Outpati ent Clinics 2019-10-17 2019-10-17 [facility] [id number] 15:00:00 15:00:00 t Aireon [facility] Outpati ent Clinics 2019-10-13 2019-10-13 [facility] [id number] 15:13:00 15:13:00 t Aireon [facility] Outpati ent Clinics 2019-10-02 2019-10-02 Outpatient Calvillo JORDICL OUTD [id number] [facility] 23:54:00 23:54:00 Trever [facility] 2019-09-18 2019-09-18 Outpatient Rajinder JORDIPM RADI [id number] [facility] 09:00:00 09:00:00 Trever [id number] [facility] 2019-09-15 2019-09-15 [facility] [id number] 09:00:00 09:00:[address] Luke s - Drive [facility] Medicine Medicine Outpati ent Clinics 2019-08-10 2019-08-10 [facility] [id number] 11:32:00 11:32:[address] Luke s - Drive [facility] Medicine l Medicine Outpati ent Clinics 2019-07-17 2019-07-17 [facility] [id number] 16:43:00 16:43:00 t [place] Luke s - Drive [facility] Medicine Outpati ent Clinics 2019-06-21 2019-06-21 [facility] [id number] [facility] 11:12:00 11:12:00 t [place] Luke s - Drive [facility] l Medicine Outpati ent Clinics 2019-06-19 2019-06-19 [facility] [id number] [facility] 14:00:00 14:00:00 [place] LuTBS s - Drive [facility] Medicine Outpati ent Clinics 2019-06-12 2019-06-12 [facility] [id number] [facility] [address] 15:55:00 15:55:00 t [place] Luke s - Drive [facility] Medicine l Medicine Outpati ent Clinics 2019-06-01 2019-06-01 [facility] [id number] [facility] [address] 13:44:00 13:44:00 t [place] LuTBS s - Drive [facility] l Medicine Outpati ent Clinics 2019-05-24 2019-05-24 [facility] [id number] [facility] 13:44:00 13:44:00 t [place] Luke s - Drive [facility] Medicine Medicine Outpati ent Clinics 2019-05-18 2019-05-18 [facility] [id number] [facility] 10:50:00 10:50:00 t [place] Luke s - Drive [facility] Medicine l Medicine Outpati ent Clinics 2019-05-01 2019-05-01 [facility] [id number] 15:00:00 15:00:00 [place] [facility] [address] [facility] l Medicine Outpati ent Clinics 2019-04-14 2019-04-14 [facility] [id number] 16:09:00 16:09:00 [facility] [place] [facility] LuTBS s - [facility] Medicine Medicine Outpati ent Clinics 2019-03-08 2019-03-08 [facility] 1.2.840.114 [id number] Univers 00:00:00 00:00:00 Tara, Y HEALTH 350.1.13.10 i ty of [id number] [address] Vivian 2019-03-08 2019-03-08 [facility] 1.2.840.114 [id number] 00:00:00 00:00:00 Tara, Y HEALTH 350.1.13.10 [place] [facility] 4.2.7.2.686 [id number] [facility] 2019-03-07 2019-03-07 [facility] Jalen, [facility] 1.2.930.540 [id number] [facility] 00:00:00 00:00:00 Management Madelyn Y HEALTH 350.1.13.10 ity of [id number] [address]284 Vivian 2019-03-07 2019-03-07 [facility] 1.2.705.806 [id number] 00:00:00 00:00:00 Management Madelyn Y HEALTH 350.1.13.10 [place] CL[facility]ICS 4.2.7.2.686 [id number] [facility] 2019-03-01 2019-03-01 [facility] [id number] [facility] 13:52:00 13:52:00 [facility] [place] [facility] Medicine Medicine Outpati ent Clinics 2019-02-23 2019-02-23 [facility] 1.2.840.114 [id number] [facility] 16:56:13 23:59:00 Encounter Madelyn Y HEALTH 350.1.13.10 ity [place] [id number] [facility] [address] 2019-02-23 2019-02-23 [facility] 1.2.840.114 [id number] 16:56:13 23:59:00 Encounter Madelyn Y [facility] 350.1.13.10 [place] CLINICS 4.2.7.2.686 [id number] 807 2019-02-23 2019-02-23 Office [facility] 1.2 .840.114 [id number] [facility] 15:34:50 18:38:56 [facility] 350.1. 13.10 [place] [id number] [facility] [address] 2019-02-23 2019-02-23 Office [facility] 1.2.700.112 [id number] 15:34:50 18:38:56 Visit Tara [facility] 350.1.13.10 [place] [facility] 4.2.7.2.686 [id number] 08 2019-02-23 2019-02-23 [employer] [facility] UNIVERS 1.2.840.114 [id number] [facility] 16:32:11 16:43:54 [facility] 350.1. 13.10 [place] [id number] [facility] [address] 2018-12-01 2018-12-01 [facility] [id number] 10:52:00 10:52:00 [facility] Suniva [facility] Medicine Outpati ent Clinics 2018-11-29 2018-11-29 [facility] [id number] 14:45:00 14:45:00 [facility] l Medicine Outpati ent Clinics 2018-09-28 2018-09-28 [facility] [id number] 10:43:00 10:43:00 [facility] Medicine l Medicine Outpati ent Clinics 2018-08-16 2018-08-16 [facility] [id number] 12:06:00 12:06:00 [facility] Medicine l Medicine Outpati ent Clinics 2018-07-25 2018-07-25 [facility] [id number] 10:56:00 10:56:00 t [facility] Medicine Outpati ent Clinics 2018-07-22 2018-07-22 [facility] [id number] 01:11:00 01:11:00 t [facility] Medicine Outpati ent Clinics 2018-07-20 2018-07-20 [facility] [id number] 13:00:00 13:00:00 t [facility] Medicine Outpati ent Clinics 2018-07-19 2018-07-19 [facility] [id number] 14:38:00 14:38:00 t [facility] Medicine Outpati ent Clinics 2018-07-15 2018-07-15 [facility] [id number] 16:01:00 16:01:00 t [facility] Medicine Outpati ent Clinics 2018-07-14 2018-07-14 [facility] [id number] 15:35:00 15:35:00 t [facility] Medicine Outpati ent Clinics 2018-04-21 2018-04-21 [facility] [id number] 09:04:00 09:04:00 t [facility] Medicine Outpati ent Clinics 2018-04-20 2018-04-20 [facility] [id number] 22:17:00 22:17:00 t [facility] Medicine Outpati ent Clinics 2018-04-20 2018-04-20 [facility] [id number] 14:30:00 14:30:00 t [facility] Medicine Outpati ent Clinics Results Test Description Test Time Test Comments Results Result Comments Source URINALYSIS 2021-04-01 03:04:09 Test Item Value Reference Range Interpretation Comme nts APPEARANCE (test code = Clear Clear 1860116981) COLOR (test code = 4110285588) Yellow Yellow PH (test code = 1266158180) 4.8-8.0 SP GRAVITY (test code = 1.003-1.030 8962289827) GLU U QUAL (test code = Normal Normal 3291679817) BLOOD (test code = 4063143681) Negative Negative Interference from ascorbic acid may cause false negative results. KETONES (test code = Negative Negative 0331746295) PROTEIN (test code = 2887-8) Negative Negative UROBILIN (test code = 2.0 mg/dL Normal A 1913928881) BILIRUBIN (test code = Negative Negative 8004122743) NITRITE (test code = Negative Negative 3910267162) LEUK MIGDALIA (test code = Negative Negative 2345516841) RBC/HPF (test code = See_Comment H [Autom ated message] The 4320878121) system which ge nerated this result transmit elaine reference range: 0 - 3 HP F. The reference range was not used to interpret th is result as normal/abnormal . WBC/HPF (test code = See_Comment [Autom ated message] The 6833006389) system which ge nerated this result transmit elaine reference range: 0 - 5 HP F. The reference range was not used to interpret th is result as normal/abnormal . BACTERIA (test code = Few Negative A 5530905577) MUCOUS (test code = 5665959385) Slight Negative LPF A SQ EPITH (test code = HPF 9131550398) HYAL CAST (test code = See_Comment H [Aut omated message] The 1598096961) system which ge nerated this result transmit elaine reference range: <=2 LPF. The reference range was not u sed to interpret this result as normal/abnormal . GRAN CASTS (test code = See_Comment H [Au tomated message] The 0297889122) system which ge nerated this result transmit elaine reference range: <=1 LPF. The reference range was not u sed to interpret this result as normal/abnormal . Lab Interpretation (test code = Abnormal 93746-9) [facility] [id number] 03:04:09 Test Item Value Reference Range Interpretation Comments APPEARANCE (test code = Clear Clear 9822215426) COLOR (test code = Yellow Yellow 5212432778) PH (test code = 4.8-8.0 9415117862) SP GRAVITY (test code = 1.003-1.030 9251958228) GLU U QUAL (test code = Normal Normal 7781423093) BLOOD (test code = Negative Negative 5515542614) KETONES (test code = Negative Negative 8505596946) PROTEIN (test code = Negative Negative 2887-8) UROBILIN (test code = 2.0 mg/dL Normal A 2425194069) BILIRUBIN (test code = Negative Negative 6697568091) NITRITE (test code = Negative Negative 2007189264) LEUK MIGDALIA (test code = Negative Negative 9452178264) RBC/HPF (test code = See_Comment H [Autom ated message] 6786226551) The system [employer] generated this result transmit elaine reference range : 0 - 3 HPF. The refe rence range was not u sed to interpret th is result as normal/abnormal . WBC/HPF (test code = See_Comment [Autom ated message] 7990230532) The system [employer] generated this result transmit elaine reference range : 0 - 5 HPF. The refe rence range was not u sed to interpret th is result as normal/abnormal . BACTERIA (test code = Few Negative A 9463613380) MUCOUS (test code = Slight Negative LPF A 6865014915) SQ EPITH (test code = HPF 2058361606) HYAL CAST (test code = See_Comment H [Aut omated message] 6049228020) The system [employer] generated this result transmit elaine reference range : <=2 LPF. The refere nce range was not u sed to interpret th is result as normal/abnormal . GRAN CASTS (test code = See_Comment H [Au tomated message] 0713184060) The system [employer] generated this result transmit elaine reference range : <=1 LPF. The refere nce range was not u sed to interpret th is result as normal/abnormal . Lab Interpretation (test Abnormal code = 25574-4) [id number] 02:31:36 Test Item Value Reference Interpretation Comments Range TROPONIN I (test 0.003 ng/mL See_Comment [Automated code = 2419532231) message] The system which generated this result [...] biotin. Lab Interpretation Normal (test code = 36771-7) [facility] [id number] 02:31:36 Test Item Value Reference Range Interpretation Comments TROPONIN I (test code = 0.003 ng/mL See_Comment [Au tomated 8215896076) message] The sy stem which generated this result transmitted reference range : <=0.034. The reference range was not used to interpret this result as normal/abnormal . ANU (test code = ANU) Lab Interpretation Normal (test code = 15530-8) [facility] [id number] 02:28:37 Test Item Value Reference Range Interpretation Comments NT-proBNP (test code 231 pg/mL See_Comment H [Autom ated = 8326896863) message] The system which generated this result transmitted reference range : <=125. The reference range was not used to interpret this result as normal/abnormal . ANU (test code = ANU) Biotin has been reported to cause a negative bias, interpret results relative to patient's use of biotin. Lab Interpretation Abnormal (test code = 09321-2) [facility] [id number] 02:28:37 Test Item Value Reference Range Interpretation Comments NT-proBNP (test code = 231 pg/mL See_Comment H [Aut omated message] 5496512633) The system [employer] generated this result transmit elaine reference range : <=125. The refe rence range was not u sed to interpret th is result as normal/abnormal . ANU (test code = ANU) Lab Interpretation (test Abnormal code = 85162-8) [facility]icsACT[facility] PART[facility] THRMPLAS [id number] 02:26:55 Test Item Value Reference Range Interpretation Comments APTT Patient (test See_Comment [Automat ed code = 3173-2) message] The system which generated this result transmitted reference range : 23 - 38 Seconds . The reference range was not used to interpr et this result as normal/abnormal . ANU (test code = ANU) The [facility] patient population mean normal value for aPTT is 30 seconds. Lab Interpretation Normal (test code = 03075-7) [facility] PART[facility] THRMPLAS [id number] 02:26:55 Test Item Value Reference Range Interpretation Comments APTT Patient (test code = See_Comment [ Automated message] 3173-2) The system gau[employer] h generated this result transmitted ref erence range: 23 - 38 Seconds. The re ference range was not u sed to interpret this result as normal/abnor mal. ANU (test code = ANU) Lab Interpretation (test Normal code = 56905-8) [facility]icsPROTHROMBIN TIME / [id number] 02:24:54 Test Item Value Reference Range Interpretation Comments PROTIME PATIENT (test See_Comment [Auto mated message] code = 5964-2) The system [employer] generated this result transmitted ref erence range: 12.0 - 1 4.7 Seconds. The re ference range was not u sed to interpret this result as normal/abnor mal. INR (test code = 6301-6) Nor mal INR <1.1; Warfarin Therap eutic range 2.0 to 3. 0 or 2.5 to 3.5, dep ending upon the indica tions. Lab Interpretation (test Normal code = 06765-7) [facility]icsPROTHROMBIN TIME / [id number] 02:24:54 Test Item Value Reference Range Interpretation Comments PROTIME PATIENT (test See_Comment [Auto mated message] code = 5964-2) The system [employer] generated this result transmitted ref erence range: 12.0 - 1 4.7 Seconds. The re ference range was not u sed to interpret this result as normal/abnor mal. INR (test code = 6301-6) Lab Interpretation (test Normal code = 87056-0) [facility]. METABOLIC PANEL ([id number])2021-04-01 02:20:56 Test Item Value Reference Range Interpretation Comments NA (test code = 139 mmol/L 135-145 5271213757) K (test code = 3.6 mmol/L 3.5-5.0 5226131847) CL (test code = 98 mmol/L 98-108 9644686561) CO2 TOTAL (test code = 29 mmol/L 23-31 4003098292) AGAP (test code = 2-16 7344845665) BUN (test code = 17 mg/dL 7-23 1690768639) GLUCOSE (test code = 241 mg/dL 70-110 H 3870093757) CREATININE (test code = 0.98 mg/dL 0.60-1.25 2205443897) TOTAL BILI (test code = 0.5 mg/dL 0.1-1.8 5660307824) CALCIUM (test code = 9.5 mg/dL 8.6-10.6 1371428447) T PROTEIN (test code = 8.9 g/dL 6.3-8.2 H 3490103842) ALBUMIN (test code = 4.6 g/dL 3.5-5.0 9818413821) ALK PHOS (test code = 124 U/L 34-122 H 4943899019) ALTv (test code = 26 U/L 5-50 1742-6) AST(SGOT) (test code = 39 U/L 13-40 2778949017) eGFR (test code = mL/min/1.73m2 4370741457) ANU (test code = ANU) Association of [...] tests). Lab Interpretation Abnormal (test code = 06291-8) [facility]. METABOLIC PANEL (19969)2021-04-01 02:20:56 Test Item Value Reference Range Interpretation Comments NA (test code = 1964774962) 139 mmol/L 135-145 K (test code = 9274132739) 3.6 mmol/L 3.5-5.0 CL (test code = 6055781990) 98 mmol/L 98-108 CO2 TOTAL (test code = 0727214440) 29 mmol/L 23-31 AGAP (test code = 9144576839) 2-16 BUN (test code = 5534073591) 17 mg/dL 7-23 GLUCOSE (test code = 6310871922) 241 mg/dL 70-110 H CREATININE (test code = 0.98 mg/dL 0.60-1.25 9408525594) TOTAL BILI (test code = 0.5 mg/dL 0.1-1.0 8053417774) CALCIUM (test code = 7055578562) 9.5 mg/dL 8.6-10.6 T PROTEIN (test code = 0846510635) 8.9 g/dL 6.3-8.2 H ALBUMIN (test code = 4646520153) 4.6 g/dL 3.5-5.0 ALK PHOS (test code = 4819623323) 124 U/L 34-122 H ALTv (test code = 1742-6) 26 U/L 5-50 AST(SGOT) (test code = 2842361438) 39 U/L 13-40 eGFR (test code = 6083340426) mL/min/1.73m2 ANU (test code = ANU) Lab Interpretation (test code = Abnormal 70763-8) [facility]icsLIPASE2021-08-31 02:20:14 Test Item Value Reference Range Interpretation Comments LIPASE (test code = 3049803349) 74 U/L 0-220 Lab Interpretation (test code = Normal 12833-5) [facility]icsCOVID-19 (ID NOW RAPID TESTING)2021-04-01 02:20:14 Test Item Value Reference Range Interpretation Comments SARS-CoV-2 Rapid ID NOW Not Detected Not Detected (test code = 94784-7) ANU (test code = ANU) ID NOW COVID-19 Assay is an isothermal nucleic acid amplification test intended for the qualitative detection of nucleic acid from SARS-CoV-2 viral RNA in nasopharyngeal (ROTARY OPERATOR) specimens. It is used under Emergency Use [...] indicated. Lab Interpretation Normal (test code = 38290-9) [facility]icsL[facility]ASE2021-08-31 02:20:14 Test Item Value Reference Range Interpretation Comments LIPASE (test code = 5376386435) 74 U/L 0-220 Lab Interpretation (test code = Normal 52952-7) [facility]icsC[facility] (ID NOW RAPID TESTING)2021-04-01 02:20:14 Test Item Value Reference Range Interpretation Comments SARS-CoV-2 Rapid ID NOW (test Not Detected Not Detected code = 92812-5) ANU (test code = ANU) Lab Interpretation (test code = Normal 70962-4) [facility] ClinicsCT HEAD WO [id number] 02:13:29No acute findings. HISTORY:Mental status change, unknown [...] extracranial tissues demonstrate no acute findings.IMPRESSIONNo acute findings.[facility] ClinicsCT HEAD WO [id number] 02:13:29No acute findings. HISTORY:Mental status change, unknown [...] extracranial tissues demonstrate no acute findings.IMPRESSIONNo acute findings.[facility] ClinicsCB WITH [id number] 02:05:52 Test Item Value Reference Range Interpretation [...] RDW-SD (test code = 44.7 fL 38.5-51.6 52529-8) RDW-CV (test code = 13.2 % 12.1-15.4 788-0) PLT (test code = See_Comment [Automated 777-3) message] The sy stem which generated this result transmitted reference range : 150 - 328 10*3/ ?L. The reference r dustin was not used to interpret this result as normal/abnormal . MPV (test code = 10.3 fL 9.8-13.0 39988-3) NRBC/100 WBC (test See_Comment [Automat ed code = 7392056110) message] The system which generated this result transmitted reference range : 0.0 - 10.0 /100 WBCs. The refer ence range was not u sed to interpret th is result as normal/abnormal . NRBC x10^3 (test code <0.01 See_Comment [Auto mated = 8959902823) message] The s ystem which generated this result transmitted reference range : 10*3/?L. The reference range was not used to interpret this result as normal/abnormal . GRAN MAT (NEUT) % 54.9 % (test code = 770-8) IMM GRAN % (test code 0.20 % = 3004428908) LYMPH % (test code = 34.3 % 736-9) MONO % (test code = 7.0 % 5905-5) EOS % (test code = 3.0 % 713-8) BASO % (test code = 0.6 % 706-2) GRAN MAT x10^3(ANC) 4.59 10*3/uL 1.99-6.95 (test code = 5723618312) IMM GRAN x10^3 (test <0.03 0.00-0.06 code = 9965227429) LYMPH x10^3 (test code 2.87 10*3/uL 1.09-3.23 = 731-0) MONO x10^3 (test code 0.59 10*3/uL 0.36-1.02 = 742-7) EOS x10^3 (test code = 0.25 10*3/uL 0.06-0.53 711-2) BASO x10^3 (test code 0.05 10*3/uL 0.01-0.09 = 704-7) Lab Interpretation Abnormal (test code = 98160-7) [facility] WITH [id number] 02:05:52 Test Item Value Reference Range Interpretation [...] RDW-SD (test code = 44.7 fL 38.5-51.6 69005-4) RDW-CV (test code = 13.2 % 12.1-15.4 788-0) PLT (test code = See_Comment [Automated 777-3) message] The sy stem which generated this result transmitted reference range : 150 - 328 10*3/ ?L. The reference r dustin was not used to interpret this result as normal/abnormal . MPV (test code = 10.3 fL 9.8-13.0 84092-9) NRBC/100 WBC (test See_Comment [Automat ed code = 7299200206) message] The system which generated this result transmitted reference range : 0.0 - 10.0 /100 WBCs. The refer ence range was not u sed to interpret th is result as normal/abnormal . NRBC x10^3 (test code <0.01 See_Comment [Auto mated = 9612842899) message] The s ystem which generated this result transmitted reference range : 10*3/?L. The reference range was not used to interpret this result as normal/abnormal . GRAN MAT (NEUT) % 54.9 % (test code = 770-8) IMM GRAN % (test code 0.20 % = 8208034371) LYMPH % (test code = 34.3 % 736-9) MONO % (test code = 7.0 % 5905-5) EOS % (test code = 3.0 % 713-8) BASO % (test code = 0.6 % 706-2) GRAN MAT x10^3(ANC) 4.59 10*3/uL 1.99-6.95 (test code = 4035349036) IMM GRAN x10^3 (test <0.03 0.00-0.06 code = 0197254969) LYMPH x10^3 (test code 2.87 10*3/uL 1.09-3.23 = 731-0) MONO x10^3 (test code 0.59 10*3/uL 0.36-1.02 = 742-7) EOS x10^3 (test code = 0.25 10*3/uL 0.06-0.53 711-2) BASO x10^3 (test code 0.05 10*3/uL 0.01-0.09 = 704-7) Lab Interpretation Abnormal (test code = 75785-1) [facility] + LACTIC [id number] 01:48:54 Test Item Value Reference Range Interpretation Comments PH (test code = 7.32-7.42 3512837684) PCO2 TAJ (test code = See_Comment H [Auto mated 8751821228) message] The sy stem which generated this result transmitted reference range : 41 - 51 mmHg. The reference range was not used to interpret this result as normal/abnormal . PO2 TAJ (test code = See_Comment [Autom ated 3728760370) message] The sy stem which generated this result transmitted reference range : 25 - 40 mmHg. The reference range was not used to interpret this result as normal/abnormal . HCO3 TAJ (test code = See_Comment [Auto mated 7597491221) message] The sy stem which generated this result transmitted reference range : 24 - 28 mEq/L. The reference range was not used to interpret this result as normal/abnormal . AC VBE(BEAKER) (test mEq/L code = 9670402397) THB TAJ (test code = 11.2 g/dL 13.5-18.0 L 4301085549) %O2HB TAJ (test code = 51.0 % 52.0-63.0 L 8596546377) %COHB TAJ (test code = 1.1 % 0.0-1.5 4650501565) %METHB TAJ (test code = 0.3 % 0.4-1.5 L 7357603391) VOL%O2 TAJ (test code = 8.0 % 6.0-12.0 2772288760) NA (test code = 138 mmol/L 135-145 5361247843) K+ (test code = 3.7 mmol/L 3.5-5.0 5300586039) AC CA IONZ (test code = 4.60 mg/dL 4.50-5.30 3621865685) GLUCOSE (test code = 236 mg/dL 70-110 H 6035773653) LACTIC ACID (test code 2.61 mmol/L 0.50-2.20 H = 4528449268) Lab Interpretation Abnormal (test code = 56230-7) [facility] + LACTIC [id number] 01:48:54 Test Item Value Reference Range Interpretation Comments PH (test code = 7.32-7.42 7390614334) PCO2 TAJ (test code = See_Comment H [Auto mated 3054537477) message] The sy stem which generated this result transmitted reference range : 41 - 51 mmHg. The reference range was not used to interpret this result as normal/abnormal . PO2 TAJ (test code = See_Comment [Autom ated 8408020019) message] The sy stem which generated this result transmitted reference range : 25 - 40 mmHg. The reference range was not used to interpret this result as normal/abnormal . HCO3 TAJ (test code = See_Comment [Auto mated 6366834456) message] The sy stem which generated this result transmitted reference range : 24 - 28 mEq/L. The reference range was not used to interpret this result as normal/abnormal . AC VBE(BEAKER) (test mEq/L code = 0419986717) THB TAJ (test code = 11.2 g/dL 13.5-18.0 L 2822851457) %O2HB TAJ (test code = 51.0 % 52.0-63.0 L 8081407619) %COHB TAJ (test code = 1.1 % 0.0-1.5 0349888249) %METHB TAJ (test code = 0.3 % 0.4-1.5 L 8742968258) VOL%O2 TAJ (test code = 8.0 % 6.0-12.0 2421066955) NA (test code = 138 mmol/L 135-145 1197042962) K+ (test code = 3.7 mmol/L 3.5-5.0 5182034713) AC CA IONZ (test code = 4.60 mg/dL 4.50-5.30 9560723336) GLUCOSE (test code = 236 mg/dL 70-110 H 0848763400) LACTIC ACID (test code 2.61 mmol/L 0.50-2.20 H = 0124622872) Lab Interpretation Abnormal (test code = 34856-3) [facility] GLUCOSE (AUTOMATED)2021-02-26 22:12:16 Test Item Value Reference Range Interpretation Comments POCT GLU (test code = 9389393260) 187 mg/dL 70-110 H Lab Interpretation (test code = Abnormal 91089-4) [facility] GLUCOSE (AUTOMATED)2021-02-26 17:17:18 Test Item Value Reference Range Interpretation Comments POCT GLU (test code = 7906475635) 189 mg/dL 70-110 H Lab Interpretation (test code = Abnormal 44357-2) [facility]2021-02-26 13:53:52 Test Item Value Reference Range Interpretation Comments POCT GLU (test code = 6680946199) 132 mg/dL 70-110 H Lab Interpretation (test code = Abnormal 04239-5) [facility] METABOLIC PANEL (NA, K, CL, CO2, GLUCOSE, BUN, CREATININE, CA)2021-02-26 11:27:38 Test Item Value Reference Range Interpretation Comments NA (test code = 142 mmol/L 135-145 1865177255) K (test code = 4.0 mmol/L 3.5-5.0 3643225503) CL (test code = 106 mmol/L 98-108 9813545340) CO2 TOTAL (test code = 25 mmol/L 23-31 7389357143) AGAP (test code = 2-16 7946691357) BUN (test code = 13 mg/dL 7-23 6317597434) GLUCOSE (test code = 129 mg/dL 70-110 H 7992691771) CREATININE (test code = 0.97 mg/dL 0.60-1.25 6458069466) CALCIUM (test code = 9.3 mg/dL 8.6-10.6 2780255123) eGFR (test code = mL/min/1.73m2 3546693748) ANU (test code = ANU) Association of [...] tests). Lab Interpretation Abnormal (test code = 63189-0) [facility] WITH [id number] 10:55:37 Test Item Value Reference Range Interpretation Comments WBC (test code = See_Comment [Automated 1590-2) message] The sy stem which generated this result transmitted reference range : 4.20 - 10.70 10*3/?L. The reference range was not used to interpret this result as normal/abnormal . RBC (test code = See_Comment L [Automated 529-8) message] The sy stem which generated this [...] RDW-SD (test code = 42.0 fL 38.5-51.6 68375-4) RDW-CV (test code = 12.7 % 12.1-15.4 788-0) PLT (test code = See_Comment [Automated 777-3) message] The sy stem which generated this result transmitted reference range : 150 - 328 10*3/ ?L. The reference r dustin was not used to interpret this result as normal/abnormal . MPV (test code = 9.5 fL 9.8-13.0 L 21954-5) NRBC/100 WBC (test See_Comment [Automat ed code = 5947040951) message] The system which generated this result transmitted reference range : 0.0 - 10.0 /100 WBCs. The refer ence range was not u sed to interpret th is result as normal/abnormal . NRBC x10^3 (test code <0.01 See_Comment [Auto mated = 7402209228) message] The s ystem which generated this result transmitted reference range : 10*3/?L. The reference range was not used to interpret this result as normal/abnormal . GRAN MAT (NEUT) % 59.7 % (test code = 770-8) IMM GRAN % (test code 0.50 % = 3014006194) LYMPH % (test code = 30.1 % 736-9) MONO % (test code = 6.8 % 5905-5) EOS % (test code = 2.3 % 713-8) BASO % (test code = 0.6 % 706-2) GRAN MAT x10^3(ANC) 5.13 10*3/uL 1.99-6.95 (test code = 3278343561) IMM GRAN x10^3 (test 0.04 10*3/uL 0.00-0.06 code = 0008591531) LYMPH x10^3 (test code 2.58 10*3/uL 1.09-3.23 = 731-0) MONO x10^3 (test code 0.58 10*3/uL 0.36-1.02 = 742-7) EOS x10^3 (test code = 0.20 10*3/uL 0.06-0.53 711-2) BASO x10^3 (test code 0.05 10*3/uL 0.01-0.09 = 704-7) Lab Interpretation Abnormal (test code = 65676-4) [facility] GLUCOSE (AUTOMATED)2021-02-26 02:24:21 Test Item Value Reference Range Interpretation Comments POCT GLU (test code = 4187383168) 226 mg/dL 70-110 H Lab Interpretation (test code = Abnormal 69975-2) [facility] Culture - Peripheral # [id number] 02:01:55 Test Item Value Reference Range Interpretation Comments Blood Culture-Aerobic No organisms No growth Previo us (test code = 26350-5) isolated prelim inary verified result was Culture [...] Culture-Anaerobic isolated preliminar y (test code = 05821-4) verifi ed result was Culture In Progress [...] CDT Lab Interpretation Normal (test code = 84072-0) [facility] Culture - Peripheral # [id number] 02:01:55 Test Item Value Reference Range Interpretation Comments Blood Culture-Aerobic No organisms No growth Previo us (test code = 89232-1) isolated prelim inary verified result was Culture [...] Culture-Anaerobic isolated preliminar y (test code = 32947-1) verifi ed result was Culture In Progress [...] CDT Lab Interpretation Normal (test code = 30040-4) [facility] GLUCOSE (AUTOMATED)2021-02-25 21:54:18 Test Item Value Reference Range Interpretation Comments POCT GLU (test code = 0727417327) 254 mg/dL 70-110 H Lab Interpretation (test code = Abnormal 64636-1) [facility] GLUCOSE (AUTOMATED)2021-02-25 16:06:47 Test Item Value Reference Range Interpretation Comments POCT GLU (test code = 3859119027) 178 mg/dL 70-110 H Lab Interpretation (test code = Abnormal 18350-2) [facility] GLUCOSE (AUTOMATED)2021-02-25 12:41:08 Test Item Value Reference Range Interpretation Comments POCT GLU (test code = 1027504403) 141 mg/dL 70-110 H Lab Interpretation (test code = Abnormal 15345-9) [facility] METABOLIC PANEL (NA, K, CL, CO2, GLUCOSE, BUN, CREATININE, CA)2021-02-25 09:30:31 Test Item Value Reference Range Interpretation Comments NA (test code = 140 mmol/L 135-145 7444800066) K (test code = 3.7 mmol/L 3.5-5.0 1621472175) CL (test code = 104 mmol/L 98-108 3873293665) CO2 TOTAL (test code = 27 mmol/L 23-31 8797127950) AGAP (test code = 2-16 9482434887) BUN (test code = 9 mg/dL 7-23 8333289145) GLUCOSE (test code = 143 mg/dL 70-110 H 1798999101) CREATININE (test code = 0.69 mg/dL 0.60-1.25 5432743266) CALCIUM (test code = 9.4 mg/dL 8.6-10.6 4016550383) eGFR (test code = mL/min/1.73m2 6914939116) ANU (test code = ANU) Association of [...] tests). Lab Interpretation Abnormal (test code = 28393-2) [facility] WITH [id number] 09:12:53 Test Item Value Reference Range Interpretation Comments WBC (test code = See_Comment [Automated 8042-2) message] The sy stem which generated this result transmitted reference range : 4.20 - 10.70 10*3/?L. The reference range was not used to interpret this result as normal/abnormal . RBC (test code = See_Comment L [Automated 868-8) message] The sy stem which generated this [...] RDW-SD (test code = 42.1 fL 38.5-51.6 87188-6) RDW-CV (test code = 12.7 % 12.1-15.4 788-0) PLT (test code = See_Comment L [Automated 777-3) message] The sy stem which generated this result transmitted reference range : 150 - 328 10*3/ ?L. The reference r dustin was not used to interpret this result as normal/abnormal . MPV (test code = 10.3 fL 9.8-13.0 13402-7) NRBC/100 WBC (test See_Comment [Automat ed code = 2986391650) message] The system which generated this result transmitted reference range : 0.0 - 10.0 /100 WBCs. The refer ence range was not u sed to interpret th is result as normal/abnormal . NRBC x10^3 (test code <0.01 See_Comment [Auto mated = 6085405597) message] The s ystem which generated this result transmitted reference range : 10*3/?L. The reference range was not used to interpret this result as normal/abnormal . GRAN MAT (NEUT) % 48.6 % (test code = 770-8) IMM GRAN % (test code 0.30 % = 3120678765) LYMPH % (test code = 38.6 % 736-9) MONO % (test code = 9.2 % 5905-5) EOS % (test code = 2.7 % 713-8) BASO % (test code = 0.6 % 706-2) GRAN MAT x10^3(ANC) 3.23 10*3/uL 1.99-6.95 (test code = 6975564553) IMM GRAN x10^3 (test <0.03 0.00-0.06 code = 0854990583) LYMPH x10^3 (test code 2.56 10*3/uL 1.09-3.23 = 731-0) MONO x10^3 (test code 0.61 10*3/uL 0.36-1.02 = 742-7) EOS x10^3 (test code = 0.18 10*3/uL 0.06-0.53 711-2) BASO x10^3 (test code 0.04 10*3/uL 0.01-0.09 = 704-7) Lab Interpretation Abnormal (test code = 49342-8) [facility] GLUCOSE (AUTOMATED)2021-02-25 02:15:28 Test Item Value Reference Range Interpretation Comments POCT GLU (test code = 204 mg/dL 70-110 H Notifi ed Provider [id number]) Lab Interpretation (test Abnormal code = 51833-4) [facility]21-02-25 00:03:48 Test Item Value Reference Range Interpretation Comments HGB A1C (test code = 7.8 % 4.0-5.7 H 4548-4) ANU (test code = ANU) Reference RangesNormal: <5.7%Prediabetes: 5.7 - 6.4%Diabetes: > 6.5% Lab Interpretation (test Abnormal code = 85871-9) [facility] GLUCOSE (AUTOMATED)2021-02-24 21:53:33 Test Item Value Reference Range Interpretation Comments POCT GLU (test code = 0450239532) 170 mg/dL 70-110 H Lab Interpretation (test code = Abnormal 19063-4) [facility] GLUCOSE (AUTOMATED)2021-02-24 16:39:31 Test Item Value Reference Range Interpretation Comments POCT GLU (test code = 1213294083) 147 mg/dL 70-110 H Lab Interpretation (test code = Abnormal 03540-0) [facility] GLUCOSE (AUTOMATED)2021-02-24 12:37:30 Test Item Value Reference Range Interpretation Comments POCT GLU (test code = 5335452450) 141 mg/dL 70-110 H Lab Interpretation (test code = Abnormal 22487-7) [facility] (NA, K, CL, CO2, GLUCOSE, BUN, CREATININE, CA)2021-02-24 09:52:22 Test Item Value Reference Range Interpretation Comments NA (test code = 141 mmol/L 135-145 6810623175) K (test code = 4.3 mmol/L 3.5-5.0 0140472269) CL (test code = 107 mmol/L 98-108 2065232893) CO2 TOTAL (test code = 26 mmol/L 23-31 4493574809) AGAP (test code = 2-16 2943322821) BUN (test code = 10 mg/dL 7-23 6939957222) GLUCOSE (test code = 145 mg/dL 70-110 H 6503923524) CREATININE (test code = 0.72 mg/dL 0.60-1.25 1674070233) CALCIUM (test code = 9.3 mg/dL 8.6-10.6 8338794107) eGFR (test code = mL/min/1.73m2 8198738630) ANU (test code = ANU) Association of [...] tests). Lab Interpretation Abnormal (test code = 00330-4) [facility] WITH [id number] 09:19:21 Test Item Value Reference Range Interpretation [...] RDW-SD (test code = 42.5 fL 38.5-51.6 41354-4) RDW-CV (test code = 12.8 % 12.1-15.4 788-0) PLT (test code = See_Comment L [Automated 777-3) message] The sy stem which generated this result transmitted reference range : 150 - 328 10*3/ ?L. The reference r dustin was not used to interpret this result as normal/abnormal . MPV (test code = 9.9 fL 9.8-13.0 55190-1) NRBC/100 WBC (test See_Comment [Automat ed code = 3720976941) message] The system which generated this result transmitted reference range : 0.0 - 10.0 /100 WBCs. The refer ence range was not u sed to interpret th is result as normal/abnormal . NRBC x10^3 (test code <0.01 See_Comment [Auto mated = 5167580795) message] The s ystem which generated this result transmitted reference range : 10*3/?L. The reference range was not used to interpret this result as normal/abnormal . GRAN MAT (NEUT) % 47.7 % (test code = 770-8) IMM GRAN % (test code 0.20 % = 8224111234) LYMPH % (test code = 39.0 % 736-9) MONO % (test code = 10.3 % 5905-5) EOS % (test code = 2.3 % 713-8) BASO % (test code = 0.5 % 706-2) GRAN MAT x10^3(ANC) 2.96 10*3/uL 1.99-6.95 (test code = 6008881219) IMM GRAN x10^3 (test <0.03 0.00-0.06 code = 0670454674) LYMPH x10^3 (test code 2.42 10*3/uL 1.09-3.23 = 731-0) MONO x10^3 (test code 0.64 10*3/uL 0.36-1.02 = 742-7) EOS x10^3 (test code = 0.14 10*3/uL 0.06-0.53 711-2) BASO x10^3 (test code 0.03 10*3/uL 0.01-0.09 = 704-7) Lab Interpretation Abnormal (test code = 67473-1) [facility] GLUCOSE (AUTOMATED)2021-02-24 01:42:01 Test Item Value Reference Range Interpretation Comments POCT GLU (test code = 7821134498) 178 mg/dL 70-110 H Lab Interpretation (test code = Abnormal 19267-8) [facility] GLUCOSE (AUTOMATED)2021-02-23 22:46:27 Test Item Value Reference Range Interpretation Comments POCT GLU (test code = 3730416410) 156 mg/dL 70-110 H Lab Interpretation (test code = Abnormal 39926-0) [facility] GLUCOSE (AUTOMATED)2021-02-23 16:57:14 Test Item Value Reference Range Interpretation Comments POCT GLU (test code = 4597346108) 185 mg/dL 70-110 H Lab Interpretation (test code = Abnormal 63113-3) [facility] GLUCOSE (AUTOMATED)2021-02-23 14:09:23 Test Item Value Reference Range Interpretation Comments POCT GLU (test code = 7154905742) 180 mg/dL 70-110 H Lab Interpretation (test code = Abnormal 09175-1) [facility] METABOLIC PANEL (NA, K, CL, CO2, GLUCOSE, BUN, CREATININE, CA)2021-02-23 09:26:37 Test Item Value Reference Range Interpretation Comments NA (test code = 141 mmol/L 135-145 5267804243) K (test code = 3.9 mmol/L 3.5-5.0 2392158240) CL (test code = 111 mmol/L 98-108 H 6921019000) CO2 TOTAL (test code = 23 mmol/L 23-31 5195063943) AGAP (test code = 2-16 5861114982) BUN (test code = 12 mg/dL 7-23 6034672088) GLUCOSE (test code = 164 mg/dL 70-110 H 9891079739) CREATININE (test code = 0.78 mg/dL 0.60-1.25 0495552366) CALCIUM (test code = 9.1 mg/dL 8.6-10.6 4313941524) eGFR (test code = mL/min/1.73m2 2097095290) ANU (test code = ANU) Association of [...] tests). Lab Interpretation Abnormal (test code = 73535-8) [facility] WITH [id number] 09:04:37 Test Item Value Reference Range Interpretation [...] RDW-SD (test code = 43.5 fL 38.5-51.6 08773-7) RDW-CV (test code = 12.8 % 12.1-15.4 788-0) PLT (test code = See_Comment L [Automated 777-3) message] The sy stem which generated this result transmitted reference range : 150 - 328 10*3/ ?L. The reference r dustin was not used to interpret this result as normal/abnormal . MPV (test code = 10.1 fL 9.8-13.0 72991-2) NRBC/100 WBC (test See_Comment [Automat ed code = 1238760157) message] The system which generated this result transmitted reference range : 0.0 - 10.0 /100 WBCs. The refer ence range was not u sed to interpret th is result as normal/abnormal . NRBC x10^3 (test code <0.01 See_Comment [Auto mated = 4039789397) message] The s ystem which generated this result transmitted reference range : 10*3/?L. The reference range was not used to interpret this result as normal/abnormal . GRAN MAT (NEUT) % 57.5 % (test code = 770-8) IMM GRAN % (test code 0.30 % = 9062193519) LYMPH % (test code = 31.0 % 736-9) MONO % (test code = 8.6 % 5905-5) EOS % (test code = 2.3 % 713-8) BASO % (test code = 0.3 % 706-2) GRAN MAT x10^3(ANC) 3.73 10*3/uL 1.99-6.95 (test code = 5285631528) IMM GRAN x10^3 (test <0.03 0.00-0.06 code = 7581502095) LYMPH x10^3 (test code 2.01 10*3/uL 1.09-3.23 = 731-0) MONO x10^3 (test code 0.56 10*3/uL 0.36-1.02 = 742-7) EOS x10^3 (test code = 0.15 10*3/uL 0.06-0.53 711-2) BASO x10^3 (test code <0.03 0.01-0.09 = 704-7) Lab Interpretation Abnormal (test code = 75587-4) [facility] GLUCOSE (AUTOMATED)2021-02-23 02:29:54 Test Item Value Reference Range Interpretation Comments POCT GLU (test code = 0509867361) 155 mg/dL 70-110 H Lab Interpretation (test code = Abnormal 94601-2) [facility] GLUCOSE (AUTOMATED)2021-02-22 22:51:30 Test Item Value Reference Range Interpretation Comments POCT GLU (test code = 2502307971) 176 mg/dL 70-110 H Lab Interpretation (test code = Abnormal 73677-5) [facility] GLUCOSE (AUTOMATED)2021-02-22 17:09:21 Test Item Value Reference Range Interpretation Comments POCT GLU (test code = 5747674930) 194 mg/dL 70-110 H Lab Interpretation (test code = Abnormal 73298-1) [facility] (NA, K, CL, CO2, GLUCOSE, BUN, CREATININE, CA)2021-02-22 11:26:26 Test Item Value Reference Range Interpretation Comments NA (test code = 136 mmol/L 135-145 0168427629) K (test code = 3.9 mmol/L 3.5-5.0 2419438641) CL (test code = 108 mmol/L 98-108 0768933132) CO2 TOTAL (test code 25 mmol/L 23-31 = 6489042961) AGAP (test code = 2-16 5799474089) BUN (test code = 14 mg/dL 7-23 9654260577) GLUCOSE (test code = 109 mg/dL 70-110 6751526075) CREATININE (test code 0.84 mg/dL 0.60-1.25 = 7290450513) CALCIUM (test code = 8.6 mg/dL 8.6-10.6 3078437880) eGFR (test code = mL/min/1.73m2 1779419140) ANU (test code = ANU) Association of [...] or urine or abnormalities in imaging tests). [facility] WITH [id number] 10:58:44 Test Item Value Reference Range Interpretation [...] RDW-SD (test code = 44.7 fL 38.5-51.6 39294-8) RDW-CV (test code = 12.8 % 12.1-15.4 788-0) PLT (test code = See_Comment L [Automated 777-3) message] The sy stem which generated this result transmitted reference range : 150 - 328 10*3/ ?L. The reference r dustin was not used to interpret this result as normal/abnormal . MPV (test code = 10.5 fL 9.8-13.0 32287-9) NRBC/100 WBC (test See_Comment [Automat ed code = 2116513445) message] The system which generated this result transmitted reference range : 0.0 - 10.0 /100 WBCs. The refer ence range was not u sed to interpret th is result as normal/abnormal . NRBC x10^3 (test code <0.01 See_Comment [Auto mated = 0057669078) message] The s ystem which generated this result transmitted reference range : 10*3/?L. The reference range was not used to interpret this result as normal/abnormal . GRAN MAT (NEUT) % 51.1 % (test code = 770-8) IMM GRAN % (test code 0.30 % = 2654144065) LYMPH % (test code = 36.1 % 736-9) MONO % (test code = 10.3 % 5905-5) EOS % (test code = 1.7 % 713-8) BASO % (test code = 0.5 % 706-2) GRAN MAT x10^3(ANC) 3.31 10*3/uL 1.99-6.95 (test code = 3939326869) IMM GRAN x10^3 (test <0.03 0.00-0.06 code = 0081810300) LYMPH x10^3 (test code 2.34 10*3/uL 1.09-3.23 = 731-0) MONO x10^3 (test code 0.67 10*3/uL 0.36-1.02 = 742-7) EOS x10^3 (test code = 0.11 10*3/uL 0.06-0.53 711-2) BASO x10^3 (test code 0.03 10*3/uL 0.01-0.09 = 704-7) Lab Interpretation Abnormal (test code = 40923-5) [facility] GLUCOSE (AUTOMATED)2021-02-22 02:14:29 Test Item Value Reference Range Interpretation Comments POCT GLU (test code = 5344699784) 151 mg/dL 70-110 H Lab Interpretation (test code = Abnormal 03139-2) [facility] GLUCOSE (AUTOMATED)2021-02-21 21:29:33 Test Item Value Reference Range Interpretation Comments POCT GLU (test code = 9765447037) 147 mg/dL 70-110 H Lab Interpretation (test code = Abnormal 62370-1) [facility] GLUCOSE (AUTOMATED)2021-02-21 17:20:58 Test Item Value Reference Range Interpretation Comments POCT GLU (test code = 6378546006) 155 mg/dL 70-110 H Lab Interpretation (test code = Abnormal 69364-1) [facility]-21 14:49:36 Test Item Value Reference Range Interpretation Comments POCT GLU (test code = 0961948943) 146 mg/dL 70-110 H Lab Interpretation (test code = Abnormal 67061-0) [facility] WITH [id number] 11:59:53 Test Item Value Reference Range Interpretation [...] RDW-SD (test code = 43.3 fL 38.5-51.6 27052-9) RDW-CV (test code = 12.8 % 12.1-15.4 788-0) PLT (test code = See_Comment L [Automated 777-3) message] The sy stem which generated this result transmitted reference range : 150 - 328 10*3/ ?L. The reference r dustin was not used to interpret this result as normal/abnormal . MPV (test code = 9.9 fL 9.8-13.0 28022-8) NRBC/100 WBC (test See_Comment [Automat ed code = 3908414278) message] The system which generated this result transmitted reference range : 0.0 - 10.0 /100 WBCs. The refer ence range was not u sed to interpret th is result as normal/abnormal . NRBC x10^3 (test code <0.01 See_Comment [Auto mated = 1838063901) message] The s ystem which generated this result transmitted reference range : 10*3/?L. The reference range was not used to interpret this result as normal/abnormal . GRAN MAT (NEUT) % 66.2 % (test code = 770-8) IMM GRAN % (test code 0.50 % = 5884072654) LYMPH % (test code = 20.0 % 736-9) MONO % (test code = 12.7 % 5905-5) EOS % (test code = 0.3 % 713-8) BASO % (test code = 0.3 % 706-2) GRAN MAT x10^3(ANC) 6.16 10*3/uL 1.99-6.95 (test code = 3084657235) IMM GRAN x10^3 (test 0.05 10*3/uL 0.00-0.06 code = 9383257745) LYMPH x10^3 (test code 1.86 10*3/uL 1.09-3.23 [...] . Lab Interpretation Abnormal (test code = 93024-2) [facility]icsPhosphorus [id number] 11:54:57 Test Item Value Reference Range Interpretation Comments PHOSPHORUS (test code = 8252590147) 3.7 mg/dL 2.5-5.0 Lab Interpretation (test code = Normal 68547-8) [facility] (NA, K, CL, CO2, GLUCOSE, BUN, CREATININE, CA)2021-02-21 11:54:56 Test Item Value Reference Range Interpretation Comments NA (test code = 136 mmol/L 135-145 7225501252) K (test code = 3.6 mmol/L 3.5-5.0 8652390387) CL (test code = 104 mmol/L 98-108 0563557220) CO2 TOTAL (test code = 23 mmol/L 23-31 1601420379) AGAP (test code = 2-16 8671256123) BUN (test code = 17 mg/dL 7-23 0366480797) GLUCOSE (test code = 176 mg/dL 70-110 H 0629574116) CREATININE (test code = 0.82 mg/dL 0.60-1.25 7966210620) CALCIUM (test code = 8.6 mg/dL 8.6-10.6 4009158561) eGFR (test code = mL/min/1.73m2 0692412686) ANU (test code = ANU) Association of [...] tests). Lab Interpretation Abnormal (test code = 49923-6) [facility]icsHEPATIC FUNCTION PANEL (59755) (ALB,T.PRO,BILI T,BU/BC,ALT,AST,ALK PHOS)2021-02-21 11:54:56 Test Item Value Reference Range Interpretation Comments TOTAL BILI (test code = 5958235213) 0.6 mg/dL 0.1-1.1 BILI UNCON (test code = 3691395193) 0.3 mg/dL 0.1-1.1 BILI CONJ (test code = 4290515234) 0.0 mg/dL 0.0-0.3 T PROTEIN (test code = 1121069387) 7.4 g/dL 6.3-8.2 ALBUMIN (test code = 8526067634) 3.7 g/dL 3.5-5.0 ALK PHOS (test code = 0960969731) 87 U/L 34-122 ALTv (test code = 1742-6) 15 U/L 5-50 AST(SGOT) (test code = 2883955255) 28 U/L 13-40 Lab Interpretation (test code = Normal 01368-2) [facility] ClinicsMagnesium [id number] 11:54:56 Test Item Value Reference Range Interpretation Comments MAGNESIUM (test code = 8377568162) 1.5 mg/dL 1.7-2.4 L Lab Interpretation (test code = Abnormal 49489-1) [facility] ClinicsProthrombin Time / [id number] 11:47:31 Test Item Value Reference Range Interpretation Comments PROTIME PATIENT (test See_Comment H [Auto mated message] code = 5964-2) The system [employer] generated this result transmitted ref erence range: 10.1 - 1 2.6 Seconds. The reference range was not used to int erpret this result as normal/abnormal . INR (test code = 6301-6) Nor mal INR <1.1; Warfarin Therap eutic range 2.0 to 3. 0 or 2.5 to 3.5, dep ending upon the indica tions. Lab Interpretation (test Abnormal code = 98374-9) [facility] ClinicsaPTT2021-07-23 11:47:31 Test Item Value Reference Range Interpretation Comments APTT Patient (test code = See_Comment [ Automated message] 3173-2) The system [employer] generated this result transmitted ref erence range: 26 - 36 Seconds. The re ference range was not u sed to interpret this result as normal/abnor mal. Lab Interpretation (test Normal code = 52097-8) [facility] ClinicsLactic Acid Whole [id number] 11:28:22 Test Item Value Reference Range Interpretation Comments LACTIC ACID (test code = 1.83 mmol/L 0.50-2.20 1875355006) Lab Interpretation (test code = Normal 04644-8) [facility] ClinicsCT ABDOMEN PELVIS W [id number] 03:45:35 Thickening of the distal gastric wall, with mild mucosal enhancement,possibly reflecting gastritis or peptic ulcer disease. 16 mm left adrenal nodule, indeterminate by density. Comparison with anyprior noncontrast CT of the chest or abdomen or follow-up with renal massprotocol imaging could be considered. RL: 460 AFC: [id number] Ordering physician: ELSA LANDRY Indication: Acute abdominal [...] The patient is statuspost bilateral hip arthroplasty. [facility], Radiant Results Inft User - 02/20/2021 10:46 [...] renal massprotocol imaging could be considered.RL: 460AFC: [id number] [facility] ClinicsXR CHEST 1 [id number] 03:38:53No radiographic evidence for acute cardiopulmonary abnormality. RL: 111 EXAMINATION:XR CHEST 1 VW ORDERING PHYSICIAN: ELSA BECKERMACLINICAL HISTORY: Fever ; COMPARISON:Chest one view dated 01/14/2021 TECHNIQUE:Single frontal view ofthe chest FINDINGS:Lungs are well expanded. No pulmonary consolidation or confluentpulmonary opacity. No pneumothorax or pleural effusion. Cardiomediastinalsilhouette is within normal limits. Degenerative changes of the thoracicspine. [facility], Radiant Results Inft User - 02/20/2021 10:39 PM CDTFormattingof this note might be different from the original.EXAMINATION:XR CHEST 1 VWORDERING PHYSICIAN: ELSA Martini YARIMACLINICAL HISTORY: Fever ;COMPARISON:Chest one view dated 01/14/2021TECHNIQUE:Single frontal view of the chestFINDINGS:Lungs are well expanded. No pulmonary consolidation or confluentpulmonary opacity. No pneumothorax or pleural effusion. Cardiomediastinalsilhouette is within normal limits. Degenerative changes of the thoracicspine.IMPRESSIONNo radiographic evidence for acute cardiopulmonary abnormality.RL: 111 [id number] 01:47[facility]17 Test Item Value Reference Interpretation Comments Range TROPONIN I (test 0.030 ng/mL See_Comment [Automated code = 9520384640) message] The system which generated this result [...] biotin. Lab Interpretation Normal (test code = 62094-4) [facility] ClinicsURINALYSIS2021-07-23 01:47:06 Test Item Value Reference Range Interpretation Comments APPEARANCE (test code = Cloudy Clear A 4399634349) COLOR (test code = Dona Yellow A 5531466168) PH (test code = 4.8-8.0 9472939788) SP GRAVITY (test code = 1.003-1.030 9287011190) GLU U QUAL (test code = Normal Normal 5652795922) BLOOD (test code = 2+ Negative A 7365837000) KETONES (test code = Negative Negative 9636127261) PROTEIN (test code = 100 mg/dL Negative A 2887-8) UROBILIN (test code = Normal Normal 7074077303) BILIRUBIN (test code = Negative Negative 5695346360) NITRITE (test code = Negative Negative 5055902381) LEUK MIGDALIA (test code = 250/uL Negative A 3282399533) RBC/HPF (test code = See_Comment H [Autom ated message] [id number]) The system [employer] generated this result transmit elaine reference range : 0 - 3 HPF. The refe rence range was not u sed to interpret th is result as normal/abnormal . WBC/HPF (test code = >182 See_Comment H [Autom ated message] 2345143789) The system [employer] generated this result transmit eliane reference range : 0 - 5 HPF. The refe rence range was not u sed to interpret th is result as normal/abnormal . BACTERIA (test code = Many Negative A 5591378648) AMORPHOUS (test code = Few Rare HPF A 4904362248) WBC CLUMPS (test code = See_Comment H [Au tomated message] 7516569154) The system [employer] generated this result transmit elaine reference range : <=1 HPF. The refere nce range was not u sed to interpret th is result as normal/abnormal . Lab Interpretation (test Abnormal code = 18543-6) [facility]26287[facility] (ALB,T.PRO,BILI T,BU/BC,ALT,AST,ALK PHOS)2021-02-21 01:36:37 Test Item Value Reference Range Interpretation Comments TOTAL BILI (test code = 6015041423) 0.6 mg/dL 0.1-1.1 BILI UNCON (test code = 9900976641) 0.4 mg/dL 0.1-1.1 BILI CONJ (test code = 0443578677) 0.0 mg/dL 0.0-0.3 T PROTEIN (test code = 3911323041) 9.2 g/dL 6.3-8.2 H ALBUMIN (test code = 5731651981) 4.7 g/dL 3.5-5.0 ALK PHOS (test code = 6412298235) 126 U/L 34-122 H ALTv (test code = 1742-6) 18 U/L 5-50 AST(SGOT) (test code = 4717693509) 38 U/L 13-40 Lab Interpretation (test code = Abnormal 79142-3) [facility]. METABOLIC PANEL (79811)2021-02-21 01:36:36 Test Item Value Reference Range Interpretation Comments NA (test code = 138 mmol/L 135-145 7281725168) K (test code = 4.4 mmol/L 3.5-5.0 2496467859) CL (test code = 100 mmol/L 98-108 6788437068) CO2 TOTAL (test code = 25 mmol/L 23-31 1064658697) AGAP (test code = 2-16 9365834851) BUN (test code = 19 mg/dL 7-23 9295539696) GLUCOSE (test code = 195 mg/dL 70-110 H 2796259817) CREATININE (test code = 0.90 mg/dL 0.60-1.25 0485156070) TOTAL BILI (test code = 0.6 mg/dL 0.1-1.6 7814734466) CALCIUM (test code = 9.8 mg/dL 8.6-10.6 2575142050) T PROTEIN (test code = 9.2 g/dL 6.3-8.2 H 6802994288) ALBUMIN (test code = 4.7 g/dL 3.5-5.0 8616246661) ALK PHOS (test code = 126 U/L 34-122 H 5569138403) ALTv (test code = 18 U/L 5-50 1742-6) AST(SGOT) (test code = 38 U/L 13-40 3163528198) eGFR (test code = mL/min/1.73m2 9512594459) ANU (test code = ANU) Association of [...] tests). Lab Interpretation Abnormal (test code = 82656-5) [facility]2021-[facility] 01:36:16 Test Item Value Reference Range Interpretation Comments LIPASE (test code = 6473814455) 50 U/L 0-220 Lab Interpretation (test code = Normal 99225-5) [facility]icsCOVID-19 (ID NOW RAPID TESTING)2021-02-21 01:35:20 Test Item Value Reference Range Interpretation Comments SARS-CoV-2 Rapid ID NOW Not Detected Not Detected (test code = 54560-6) ANU (test code = ANU) ID NOW COVID-19 Assay is an isothermal nucleic acid amplification test intended for the qualitative detection of nucleic acid from SARS-CoV-2 viral RNA in nasopharyngeal (ROTARY OPERATOR) specimens. It is used under Emergency Use [...] indicated. Lab Interpretation Normal (test code = 41830-4) [facility] WITH [id number] 01:28:19 Test Item Value Reference Range Interpretation [...] RDW-SD (test code = 43.2 fL 38.5-51.6 78538-0) RDW-CV (test code = 12.5 % 12.1-15.4 788-0) PLT (test code = See_Comment [Automated 777-3) message] The sy stem which generated this result transmitted reference range : 150 - 328 10*3/ ?L. The reference r dustin was not used to interpret this result as normal/abnormal . MPV (test code = 10.1 fL 9.8-13.0 28898-8) NRBC/100 WBC (test See_Comment [Automat ed code = 8858475076) message] The system which generated this result transmitted reference range : 0.0 - 10.0 /100 WBCs. The refer ence range was not u sed to interpret th is result as normal/abnormal . NRBC x10^3 (test code <0.01 See_Comment [Auto mated = 8882644189) message] The s ystem which generated this result transmitted reference range : 10*3/?L. The reference range was not used to interpret this result as normal/abnormal . GRAN MAT (NEUT) % 78.2 % (test code = 770-8) IMM GRAN % (test code 0.60 % = 6763843879) LYMPH % (test code = 11.1 % 736-9) MONO % (test code = 9.2 % 5905-5) EOS % (test code = 0.4 % 713-8) BASO % (test code = 0.5 % 706-2) GRAN MAT x10^3(ANC) 7.80 10*3/uL 1.99-6.95 H (test code = 4670500595) IMM GRAN x10^3 (test 0.06 10*3/uL 0.00-0.06 code = 8860303732) LYMPH x10^3 (test code 1.11 10*3/uL 1.09-3.23 = 731-0) MONO x10^3 (test code 0.92 10*3/uL 0.36-1.02 = 742-7) EOS x10^3 (test code = 0.04 10*3/uL 0.06-0.53 L 711-2) BASO x10^3 (test code 0.05 10*3/uL 0.01-0.09 = 704-7) Lab Interpretation Abnormal (test code = 08935-0) [facility]icsLactic Acid Whole [id number] 01:04:41 Test Item Value Reference Range Interpretation Comments LACTIC ACID (test code = 2.15 mmol/L 0.50-2.20 8048334677) Lab Interpretation (test code = Normal 87709-6) [facility]icsCT Chest Wo [id number] 18:55:19 EXAMINATION:CT CHEST WO CONTRAST CLINICAL HISTORY:R06.02 [...] finding.6.No acute skeletal abnormalities seen.IMPRESSION:No acute cardiopulmonary disease.[id number] 2019-10-02 16:50:00 Test Item Value Reference Range Interpretation Comments GLUCOSE BEDSIDE TESTING (test code = 98 mg/dL 70-110 N GLUBED) - XR FLUOROSCOPY 0-60 [id number] 16:05:00 Name: ANABELA RUTH [facility] : 1955 Age/S: 64 / M [address] Unit #: [id number] Loc: [place] [address] Phys: Trever Calvillo MD Acct: [id number] Dis Date: [place] [facility] [facility] [place]: [phone] Exam Date: 10/02/2019 1500 FAX #: Reason: LEFT FEMUR JUN PLATE REMOVAL EXAMS: CPT: [id number] XR FLUOROSCOPY 0-60 MIN 19903 Fluoro Time: 17 SEC DAP (Gy m2): [...] PAGE 1 Signed Report Name: ANABELA RUTH [facility] : 1955 Age/S: 64 / M [address] Unit #: [id number] Loc: [place] [address] Phys: Trever Calvillo MD Acct: [id number] Dis Date: [place] [facility] [place] #: [phone] Exam Date: 10/02/2019 1500 FAX #: Reason: LEFT FEMUR JUN PLATE REMOVAL EXAMS: CPT: [id number] XR FLUOROSCOPY 0-60 MIN 27629 Fluoro Time: 17 SEC DAP (Gy m2): Air Kerma (mGy): <Continued> Technologist: Raine Vera, RT(R) Trnscb Date/Time: 10/02/2019 (160) [email or web address] Orig Print D/T: S: 10/02/2019 (1601) PAGE 2 Signed Report UA RFLX MICR CULT IF [id number] 08:47:00 Test Item Value Reference Range Interpretation [...] PRE OP EVALUA RFLX MICR CULT IF [id number] 08:46:00 Test Item Value Reference Range Interpretation [...] Dysuria/FrequencySpec Comments: INDICATION: PRE OP EVALBASIC METABOLIC [id number] 07:29:00 Test Item Value Reference Range Interpretation [...] CA) 9.1 MG/DL 8.5-10.1 N VITAMIN D [id number] 07:29:00 Test Item Value Reference Range Interpretation Comments VITAMIN D 14.1 ng/mL 30.0-100.0 A Vitamin D defic iency has 25-HYDROXY (test been define d by the code = VITD25) [facility] edicine and an Endocrine So ciety practice guidel ine as alevel of serum 25-OH vitamin D less than 20 ng/mL (1,2).The Endocrine Society went on to further define vitamin Dinsufficiency as a level between 21 and 29 ng/mL (2).1. IOM (Ins titute of Medicine). 2010 . Dietary reference int akes for calcium and D. [place]: The [employer] .2. Sail[place] MF, [place], Osacr-Jessica i MOSER, et al. Evaluatio n, treatment, and prevention of vitamin D deficiency: an Endocrine Society clinica l practice guideline. EM. 2010; 96(7):1911-30.P erformed At: [facility] [address] [place], [place] [id number] Trever Ac MD Ph:[phone] BASIC METABOLIC [id number] 07:08:00 Test Item Value Reference Range Interpretation [...] CA) 9.1 MG/DL 8.5-10.1 N VITAMIN D [id number] 07:08:00 Test Item Value Reference Range Interpretation Comments VITAMIN D 25-HYDROXY (test code = 14.1 VITD25) CBC W/AUTO [id number] 14:54:00 Test Item Value Reference Range Interpretation [...] code = NO DIFF/SCN CRITERIA MDIFF) SED [id number] 14:54:00 Test Item Value Reference Range Interpretation Comments SED RATE (test code = SEDW) 80 mm/hr 0-20 H - XR CHEST 2 [id number] 14:38:00 Name: ANABELA RUTH [facility] : 1955 Age/S: 64 / M [address] Unit #: [id number] Loc: [place] [address] Phys: Trevre Calvillo MD Acct: [id number] Dis Date: Status: PRE SDC PHONE #: [phone] Exam Date: 09/19/2019 1400 FAX #: Reason: PREOP EXAMS: CPT: [id number] XR CHEST 2 V 01083 Fluoro Time: DAP (Gy m2): Air Kerma [...] PAGE 1 Signed Report Name: ANABELA RUTH [facility] : 1955 Age/S: 64 / M [address] Unit #: [id number] Loc: [place] [address] Phys: Trever Calvillo MD Acct: [id number] Dis Date: Status: PRE SDC PHONE #: [phone] Exam Date: 09/19/2019 1400 FAX #: Reason: PREOP EXAMS: CPT: [id number] XR CHEST 2 V 18172 Fluoro Time: DAP (Gy m2): Air Kerma (mGy): <Continued> Technologist: Raine Vera, RT(R) Trnscb Date/Time: 09/19/2019 (0689) [email or web address] Orig Print D/T: S: 09/19/2019 (6695) PAGE 2 Signed ReportC REACTIVE [id number] 13:53:00 Test Item Value Reference Range Interpretation Comments C REACTIVE PROTEIN (test code = 0.629 MG/DL 0.000-0.3 H CRP) BASIC METABOLIC [id number] 13:52:00 Test Item Value Reference Range Interpretation [...] CA) 9.1 MG/DL 8.5-10.1 N VITAMIN D [id number] 13:52:00 Test Item Value Reference Range Interpretation Comments VITAMIN D 25-HYDROXY (test code = VITD25) PROTHROMBIN [id number] 13:42:00 Test Item Value Reference Range Interpretation Comments PT PATIENT (test code = PTP) 13.2 SECONDS 9.3-12.9 H INTERNATIONAL NORMAL RATIO 1.16 INR Unit 0.8-1.2 N (test code = INR) THROMBOPLASTIN TIME [id number] 13:42:00 Test Item Value Reference Range Interpretation Comments THROMBOPLASTIN TIME PARTIAL 34.7 SECONDS 26-35 N (test code = PTT) CBC W/AUTO [id number] 13:33:00 Test Item Value Reference Range Interpretation [...] code = NO DIFF/SCN CRITERIA MDIFF) SED [id number] 13:33:00 Test Item Value Reference Range Interpretation Comments SED RATE (test code = SEDW) mm/hr 0-20 - CT LOWER EXTRM W/O C [id number] 11:45:00 Name: ANABELA RUTH : 1955 Age/S: 64 / M [address] Unit #: [id number] Loc: [place] [address] Phys: Trever Calvillo MD Acct: [id number] Dis Date: Status: PRE CLI PHONE #: [phone] Exam Date: 09/19/2019 1100 FAX #: Reason: PAIN LFT KNEE EXAMS: CPT: [id number] [place] LOWER EXTRM W/[place] [address] EXAM: - CTLOWER EXTRM W/O C LT [...] 1 Signed Report (CONTINUED) Name: ANABELA RUTH [facility] : 1955 Age/S: 64 / M [address] Unit #: [id number] Loc: [place] [address] Phys: Trever Calvillo MD Acct: [id number] Dis Date: Status: PRE CLI PHONE #: [phone] Exam Date: 09/19/2019 1100 FAX #: Reason: PAIN LFT KNEE EXAMS: CPT: [id number] [place] LOWER EXTRM W/[place] [address] <Continued> at 1145 Reported and signed by: Oswald Devi MD CC: Trever Calvillo MD; Kiran Loera MD Technologist:Desire Hernandez, RT(R)(MR) CTDI: DLP: Trnscb Date/Time: 09/19/2019 (2555) [email or web address] Orig Print D/T: S: 09/19/2019 (5649) PAGE 2 Signed ReportXR CHEST 2 [id number] 01:04:06 No acute intrathoracic abnormality.* * * [...] arthritic changes throughout spine andshoulders.IMPRESSIONNo acute intrathoracic abnormality.[facility]
[2021-11-14 01:59] LABS: Urine Blood 3+ (Negative); Urine Glucose Negative (Negative); Urine Protein 3+ (Negative); Urine Specific Gravity >=1.030 (1.005-1.030)
--- NOTE | 2021-11-14 02:21 | EDPHYS ---
Physician Documentation [facility] Name: David Lopez Age: 66 yrs Sex: Male : 1955 Arrival Date: 11/14/2021 Time: 01:17 Bed Treatment Private MD: ED Physician Dannie Rudolph HPI: 11/14 04:51 This 66 yrs old Male presents to ER via EMS with complaints of Concern for kdr possible UTI. 04:51 The patient presents with urinary symptoms, dribbling of urine, dysuria, urinary kdr frequency. Onset: The symptoms/episode began/occurred at an unknown time. Modifying factors: The symptoms are alleviated by nothing, the symptoms are aggravated by nothing. Associated signs and symptoms: The patient has no apparent associated signs or symptoms. Severity of symptoms: At their worst the symptoms were very mild, in the emergency department the symptoms are unchanged. It is unknown whether or not the patient has had similar symptoms in the past. The patient has not recently seen a physician. Patient is concerned that he may have a urinary tract infection and wants to be evaluated.. Historical: - Allergies: 01:25 No Known Allergies; ag7 - Home Meds: 01:25 gabapentin 600 mg Oral tab 1 tab 3 times per day [Active]; baclofen 10 mg Oral tab 1 ag7 tab twice daily [Active]; buprenorphine HCl buccal 2 times per day [Active]; atorvastatin 80 mg Oral tab 1 tab once daily [Active]; aspirin 81 mg Oral chew 1 tab once daily [Active]; fluoxetine 40 mg Oral cap 1 cap once daily [Active]; Humulin R [Active]; metformin 500 mg Oral Tb24 1 tab 2 times per day [Active]; venlafaxine 75 mg Oral cp24 1 cap once daily [Active]; - PMHx: 01:25 CVA; Diabetes - NIDDM; Hypertension; Parkinsons; ag7 - PSHx: 01:25 hip replacement; ag7 - Immunization history:: Adult Immunizations up to date, Client reports having NOT received the Covid vaccine. Flu vaccine is not up to date. Patient has never been vaccinated. - Social history:: Smoking status: Patient denies any tobacco usage or history of. ROS: 04:51 Constitutional: Negative for fever, chills, and weight loss, Eyes: Negative for injury, kdr pain, redness, and discharge, ENT: Negative for injury, pain, and discharge, Neck: Negative for injury, pain, and swelling, Cardiovascular: Negative for chest pain, palpitations, and edema, Respiratory: Negative for shortness of breath, cough, wheezing, and pleuritic chest pain, Abdomen/GI: Negative for abdominal pain, nausea, vomiting, diarrhea, and constipation, Back: Negative for injury and pain, : Negative for injury, bleeding, discharge, and swelling, MS/Extremity: Negative for injury and deformity, Skin: Negative for injury, rash, and discoloration, Neuro: Negative for headache, weakness, numbness, tingling, and seizure activity. Psych: Negative for depression, anxiety, suicide ideation, homicidal ideation, and hallucinations, Allergy/Immunology: Negative for hives, rash, and allergies, Endocrine: Negative for neck swelling, polydipsia, polyuria, polyphagia, and marked weight changes, Hematologic/Lymphatic: Negative for swollen nodes, abnormal bleeding, and unusual bruising. Exam: 04:51 Constitutional: This is a well developed, well nourished patient who is awake, alert, kdr and in no acute distress. Head/Face: Normocephalic, atraumatic. Eyes: Pupils equal round and reactive to light, extra-ocular motions intact. Lids and lashes normal. Conjunctiva and sclera are non-icteric and not injected. Cornea within normal limits. Periorbital areas with no swelling, redness, or edema. ENT: Nares patent. No nasal discharge, no septal abnormalities noted. Tympanic membranes are normal and external auditory canals are clear. Oropharynx with no redness, swelling, or masses, exudates, or evidence of obstruction, uvula midline. Mucous membranes moist. Neck: Trachea midline, no thyromegaly or masses palpated, and no cervical lymphadenopathy. Supple, full range of motion without nuchal rigidity, or vertebral point tenderness. No Meningismus. Chest/axilla: Normal chest wall appearance and motion. Nontender with no deformity. No lesions are appreciated. Cardiovascular: Regular rate and rhythm with a normal S1 and S2. No gallops, murmurs, or rubs. Normal PMI, no JVD. No pulse deficits. Respiratory: Lungs have equal breath sounds bilaterally, clear to auscultation and percussion. No rales, rhonchi or wheezes noted. No increased work of breathing, no retractions or nasal flaring. Abdomen/GI: Soft, non-tender, with normal bowel sounds. No distension or tympany. No guarding or rebound. No evidence of tenderness throughout. Back: No spinal tenderness. No costovertebral tenderness. Full range of motion. Skin: Warm, dry with normal turgor. Normal color with no rashes, no lesions, and no evidence of cellulitis. MS/ Extremity: Pulses equal, no cyanosis. Neurovascular intact. Full, normal range of motion. Neuro: Awake and alert, GCS 15, oriented to person, place, time, and situation. Cranial nerves II-XII grossly intact. Motor strength 5/5 in all extremities. Sensory grossly intact. Cerebellar exam normal. Normal gait. Psych: Awake, alert, with orientation to person, place and time. Behavior, mood, and affect are within normal limits. 04:51 : Exam negative for Vital Signs: 01:22 BP 119 / 69 RA (auto/reg); Pulse 76 MON; Resp 16 S; Temp 98.1(O); Pulse Ox 96% on R/A; ag7 Weight 69.4 kg (R); Height 5 ft. 4 in. (162.56 cm) (R); Pain 9/10; 01:22 Body Mass Index 26.26 (69.40 kg, 162.56 cm) ag7 MDM: 02:20 Patient medically screened. kdr 04:51 Data reviewed: vital signs, nurses notes, lab test result(s). Counseling: I had a kdr detailed discussion with the patient and/or guardian regarding: the historical points, exam findings, and any diagnostic results supporting the discharge/admit diagnosis, lab results, radiology results, the need for outpatient follow up. 11/14 01:59 Order name: Urine Dipstick-Ancillary EDNH 11/14 02:04 Order name: Urine Microscopic Only vc1 11/14 01:18 Order name: Urine Dipstick-Ancillary (obtain specimen); Complete Time: 02:00 kdr 11/14 01:55 Order name: Straight Cath - Urine; Complete Time: 01:55 vc1 11/14 02:33 Order name: Urine Culture EDMS Administered Medications: 02:29 Drug: Cipro (ciprofloxacin) 500 mg Route: PO; ag7 03:00 Follow up: Response: No adverse reaction ag7 Disposition Summary: 11/14/21 02:20 Discharge Ordered Location: Home kdr Problem: new kdr Symptoms: have improved kdr Condition: Stable kdr Diagnosis - UTI/ Urinary tract infection, site not specified kdr Followup: kdr - With: Private Physician - When: 2 - 3 days - Reason: If symptoms return, Further diagnostic work-up, Recheck today's complaints, Continuance of care, Re-evaluation by your physician Discharge Instructions: - Discharge Summary Sheet kdr - Urinary Tract Infection, Adult, Wegb-gw-Ujfj kdr Forms: - Medication Reconciliation Form kdr - Thank You Letter kdr - Antibiotic Education kdr Prescriptions: - Cipro 500 mg Oral Tablet - take 1 tablet by ORAL route every 12 hours for 7 days; 14 tablet; Refills: 0, kdr Product Selection Permitted Signatures: Dispatcher [employer] Dannie Ferrera MD MD kdr Sharri Rosado RN RN vc1 Simona Lynn RN RN ag7
--- NOTE | 2021-11-14 02:21 | ER ---
Nurse's Notes [facility] Name: David Lopez Age: 66 yrs Sex: Male : 1955 Arrival Date: 11/14/2021 Time: 01:17 Bed Treatment Private MD: Diagnosis: UTI/ Urinary tract infection, site not specified Presentation: 11/14 01:22 Chief complaint: EMS states: EMS report that the patient is complaining of pain with ag7 urination and wants to be checked for a UTI. Coronavirus screen: Client denies travel out of the [place] in the last 14 days. At this time, the client does not indicate any symptoms associated with coronavirus-19. Ebola Screen: Patient negative for fever greater than or equal to 101.5 degrees Fahrenheit, and additional compatible Ebola Virus Disease symptoms Patient denies exposure to infectious person. Patient denies travel to an Ebola-affected area in the 21 days before illness onset. Initial Sepsis Screen: Does the patient meet any 2 criteria? No. Patient's initial sepsis screen is negative. Does the patient have a suspected source of infection? No. Patient's initial sepsis screen is negative. Risk Assessment: Do you want to hurt yourself or someone else? Patient reports no desire to harm self or others. Onset of symptoms was November 14, 2021. :22 Method Of Arrival: EMS: [facility] 01:22 Acuity: LEANNA 3 ag7 Historical: - Allergies: 01:25 No Known Allergies; ag7 - Home Meds: 01:25 gabapentin 600 mg Oral tab 1 tab 3 times per day [Active]; baclofen 10 mg Oral tab 1 ag7 tab twice daily [Active]; buprenorphine HCl buccal 2 times per day [Active]; atorvastatin 80 mg Oral tab 1 tab once daily [Active]; aspirin 81 mg Oral chew 1 tab once daily [Active]; fluoxetine 40 mg Oral cap 1 cap once daily [Active]; Humulin R [Active]; metformin 500 mg Oral Tb24 1 tab 2 times per day [Active]; venlafaxine 75 mg Oral cp24 1 cap once daily [Active]; - PMHx: 01:25 CVA; Diabetes - NIDDM; Hypertension; Parkinsons; ag7 - PSHx: 01:25 hip replacement; ag7 - Immunization history:: Adult Immunizations up to date, Client reports having NOT received the Covid vaccine. Flu vaccine is not up to date. Patient has never been vaccinated. - Social history:: Smoking status: Patient denies any tobacco usage or history of. Screenin:46 Abuse screen: Denies threats or abuse. Nutritional screening: No deficits noted. ag7 Tuberculosis screening: No symptoms or risk factors identified. Fall Risk No fall in past 12 months (0 pts). Secondary diagnosis (15 points) impaired mobility, No IV (0 pts). Ambulatory Aid- None/Bed Rest/Nurse Assist (0 pts). Gait- Weak (10 pts.). Mental Status- Oriented to own ability (0 pts). Total Bassett Fall Scale indicates Low Risk Score (25-44 pts). Fall prevention measures have been instituted. Side Rails Up X 2 Placed close to Nursing Station Frequent Obs/Assesments occuring As available Patient and Family Educated on Fall Prevention Program and strategies. Assessment: 01:28 General: Appears in no apparent distress. Behavior is calm, cooperative, appropriate ag7 for age. Pain: Complains of pain in pelvis Pain does not radiate. Pain currently is 9 out of 10 on a pain scale. Quality of pain is described as Pain began suddenly, Is continuous. Neuro: Level of Consciousness is awake, alert, obeys commands, Oriented to person, place, situation, Release Coordinator are weak bilaterally. Cardiovascular: Heart tones S1 S2 present Capillary refill < 3 seconds in bilateral fingers. Respiratory: Airway is patent Trachea midline Respiratory effort is even, unlabored, Breath sounds are diminished bilaterally. : Reports pain with urination, difficulty urinating. 01:59 Reassessment: Patient straight cath per MD request and charge nurse collect, urine ag7 collected, patient tolerate well. Vital Signs: 01:22 BP 119 / 69 RA (auto/reg); Pulse 76 MON; Resp 16 S; Temp 98.1(O); Pulse Ox 96% on R/A; ag7 Weight 69.4 kg (R); Height 5 ft. 4 in. (162.56 cm) (R); Pain 9/10; 01:22 Body Mass Index 26.26 (69.40 kg, 162.56 cm) ag7 ED Course: 01:17 Patient arrived in ED. ll3 01:17 Dannie Rudolph MD is Attending Physician. kdr 01:22 Simona Lynn, RN is Primary Nurse. ag7 01:25 Triage completed. ag7 01:47 Arm band placed on left wrist. ag7 01:47 Patient has correct armband on for positive identification. Bed in low position. Call ag7 light in reach. Side rails up X 1. 01:47 No provider procedures requiring assistance completed. ag7 03:00 Patient did not have IV access during this emergency room visit. ag7 Administered Medications: 02:29 Drug: Cipro (ciprofloxacin) 500 mg Route: PO; ag7 03:00 Follow up: Response: No adverse reaction ag7 Outcome: 02:20 Discharge ordered by . kdr 02:59 Condition: stable ag7 02:59 Discharge instructions given to patient, Instructed on discharge instructions, follow up and referral plans. medication usage, Demonstrated understanding of instructions, follow-up care, medications, Prescriptions given X 1. 03:20 Patient left the ED. vc1 Signatures: Dannie Rudolph MD MD [facility] Eusebio Miller RN RN 3 Sharri Rosado RN RN vc1 Simona Lynn, RN RN ag7 Corrections: (The following items were deleted from the chart) 01:31 01:22 BP 119 / 69 Auto R Arm Regular; Pulse 76bpm; MonitorResp 16bpm; Spontaneous; ag7 Pulse Ox 96% RA; Temp 98.1F Oral; 69.4 kg Reported; Height 5 ft. 4 in. Reported; BMI: 26.2; Pain 3/10; ag7
[2021-11-14 02:29] LABS: Urine Bacteria LOADED /HPF (NONE SEEN); Urine Mucus 2+ /HPF (NONE SEEN); Urine RBC >50 /HPF (NONE SEEN)
[2021-11-14] MEDS ORDERED: CIPROFLOXACIN HCL 500 MG TAB ONE (02:30)
[2021-11-14 11:15] VITALS: BP 119/69; TEMP 98.1; O2SAT 96
== END 2021-11-14 03:20 | disposition home or self-care (01) ==
LOC: ER 01:11
DX: N39.0 Urinary tract infection, site not specified (principal); E11.9 Type 2 diabetes mellitus without complications; I10 Essential (primary) hypertension; G20 Parkinson's disease; Z86.73 Personal history of transient ischemic attack (TIA), and cerebral infarction without residual deficits; Z79.82 Long term (current) use of aspirin; Z79.4 Long term (current) use of insulin
CPT/HCPCS: 81003; 81015; 87077; 87086; 87088; 87186; 99283

== ENCOUNTER 2021-12-06 14:19 | Emergency (ER) | payer OTHER ==
--- OUTSIDE RECORDS SUMMARY | 2021-12-06 14:27 | XMS REPORT | Continuity of Care Document ---
:1955 Author Organization [facility] t Address [address] [place] [place] [address] Care Team Providers Name Role Phone Conner [...] Clinician Unavailable Lisseth ARRIETA Attending Clinician Unavailable Vini Landry MD Attending Clinician Rosalie IGNACIO Attending Clinician Linda IGNACIO Attending Clinician Breonna Pierce Attending Clinician Teresa IGNACIO, Sharon Attending Clinician Clyde Pacheco MD Attending Clinician Jalen IGNACIO, Tyrelfl Attending Clinician [facility] Attending Clinician Unavailable Linda IGNACIO Admitting Clinician KNOW Admitting Clinician Unavailable Payers Payer Name Policy Type Policy Number Effective Date Expiration Date S apolinar [facility] [id number] 2017 MEDICARE GOLD 00:00:00 [facility] [id number] 2021 HORIZONS 00:00:00 MEDICARE PART A \\T\\ [id number] B - MEDICARE WELLMED DUAL [id number] COMPLETE SNP [facility] - [id number] GENERIC PAYOR Problems Condition Condition Condition Status Onset Resolution Last Treating Co mments Source Name Details Category Date Date Treatment Clinician Date Other Other Disease Active NPI:183 constipati constipati 02-22 13 17139 on on 00:00: 00 Fever due Fever due Disease Active NPI :183 to to 723 [id number] infection infection 00:00: 00 Urinary Urinary Disease Active NPI:183 tract tract 6-11 4049207 infection infection 00:00: due to due to 00 ESBL ESBL Klebsiella Klebsiella UTI UTI Disease Active NPI:183 (urinary (urinary 6-11 995932 1 tract tract 00:00: infection) infection) 00 Cervical Cervical Disease Active [facility]o di disc disc 5-09 st disease disease 00:00: Hospita 00 l Lumbar Lumbar Disease Active Methodi disc disc 5-09 st disease disease 00:00: Hospita 00 l Fever, Fever, Disease Active NPI:183 unknown unknown 2-19 1431366 origin origin 00:00: 00 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 00:00: Ho spita sm sm 00 l Bradycardi Bradycardi Disease Active M ethodi a a 12-08 00:00: Hospita 00 l Acidosis Acidosis Disease Active Metho di 12-08 00:00: Hospita 00 l Parkinson' Parkinson' Disease Active N PI:183 s disease s disease 01-01 1318 781 00:00: 00 Hypotensio Hypotensio Disease Active N PI:183 n n 12-29 5190547 00:00: 00 Right Right Disease Active NPI:183 wrist wrist 11-07 3013592 injury injury 00:00: 00 DM DM Disease Active NPI:183 (diabetes (diabetes 08-26 1318 781 mellitus) mellitus) 00:00: 00 CHAPO on CHAPO on Disease Active NPI:183 CPAP CPAP 08-26 1083681 00:00: 00 Chest pain Chest pain Disease Active N PI:183 08-24 [id number] 00:00: 00 SOB SOB Disease Active NPI:183 (shortness (shortness 03-29 13 45880 of breath) of breath) 00:00: 00 Dyspnea Dyspnea Disease Active Overview: NPI: 183 and and 03-23 Formatt[place] 3322769 respirator respirator 00:00: g of this y y 00 note abnormalit abnormalit might be y y different from the original. 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 ICD10 Diagnosis Term Lay Out And Detail Drafter Utility Fasciitis Fasciitis Disease Active Overview: NPI:183 4 Formattin [id number] 00:00: g of this 00 note might be different from the original. ICD10 Diagnosis Term Lay Out And Detail Drafter Utility Arthropath Arthropath Disease Active Overview : NPI:183 y y 4 Formattin [id number] associated associated 00:00: g of this with with 00 note another another might be systemic systemic different disease disease from the original. ICD10 Diagnosis Term Lay Out And Detail Drafter Utility Degenerati Degenerati Disease Active Overview : NPI:183 on of on of Formatt[place] 9955422 interverte interverte g of this bral disc, bral disc, note site site might be unspecifie unspecifie different d d from the original. 2 to trauma Malignant Malignant Disease Active Overview: NPI:183 neoplasm neoplasm Formatt[place] 131 8781 of kidney of kidney g of this excluding excluding note renal renal might be pelvis pelvis different from the original. left nephrecto my in [id number] Diagnosis Term Lay Out And Detail Drafter Utility Essential Essential Disease Active Overview: NPI:183 hypertensi hypertensi Form[place] 3985494 on on g of this note might be different from the original. ICD10 Diagnosis Term Lay Out And Detail Drafter Utility Backache Backache Disease Active Overview: [employer] I:183 Formattin 4177183 g of this note might be different from the original. back surgeries in ', [id number] Diagnosis Term Lay Out And Detail Drafter Utility Hip joint Hip joint Disease Active Overview: NPI:183 replacemen replacemen Formatt[place] 9834304 t by other t by other g of this means means note might be different from the original. B/L Asbestosis Asbestosis Disease Active Overview : NPI:183 Form[place] 0835328 g of this note might be different from the original. ICD10 Diagnosis Term Lay Out And Detail Drafter Utility Gout Gout Disease Active Overview: NPI:18 3 Formattin 9787193 g of this note might be different from the original. ICD10 Diagnosis Term Lay Out And Detail Drafter Utility HLD HLD Disease Active Overview: NPI:18 3 (hyperlipi (hyperlipi Formattin 3059346 demia) demia) g of this note might be different from the original. ICD10 Diagnosis Term Lay Out And Detail Drafter Utility Allergies, Adverse Reactions, Alerts Allergy Allergy Status Severity Reaction(s) Onset Inactive Treating Comm ents Source Name Type Date Date Clinician Luma Propensi Active Other - See Unable t o NPI:183 a-Levodo ty to comments 03-25 walk. 714068 1 pa adverse 00:00: reaction 00 s CARBIDOP DRUG Active Other-Cmnt NPI: 183 A-LEVODO 03-25 [id number] PA 00:00: 00 No Known DA Active U 2011-08 [facility] 0-03 Clear Allergie 00:00: Cabrera s [address] [facility] No Known DA Active U 2011-08 [facility] 0-03 Clear Allergie 00:00: Cabrera s [address] [facility] NO KNOWN Allergy Active NPI:118 ALLERGIE [id number] S Social History Social Habit Start Date Stop Date Quantity Comments Source History of Cigarette Smoker NPI:1831 [id number] tobacco use Exposure to Not sure NPI:[id number] 1 SARS-CoV-2 (event) History SDOH NPI:[id number] Alcohol Frequency History SDOH NPI:[id number] Alcohol Std Drinks History SDOH NPI:[id number] 81 Alcohol Binge Tobacco use and 2021-09-10 2021-09-10 Former smokeless [facility] exposure 00:00:00 00:00:00 tobacco user of Medicine Alcohol intake 2019-08-22 2019-08-22 Current [employer] 00:00:00 00:00:00 non-drinker of Hospital alcohol (finding) Alcohol Comment 2008-12-04 2008-12-04 once per month NPI:1 [id number] 00:00:00 00:00:00 Tobacco Comment 2008-11-22 2008-11-22 states smoked NPI:18 [id number] 00:00:00 00:00:00 occasionly for about 3 years Sex [birth year] [facility] 00:00:00 00:00:00 of Medicine Smoking Status Start Date Stop Date Source Ex-smoker 2021-09-10 00:00:00 2021-09-10 00:00:00 [facility] mandeep of Medicine [facility] smoker [facility] Medications Ordered Filled Start Stop Current Ordering Indication Dosage Frequency Signature Comments Components Source Medication Medication Date Date Medication? Clinician (SIG) Name Name metformin Yes 500mg Take 500 [place] rachel (GLUCOPHAGE 2-09 mg by [place] ) 500 MG 13:58: mouth of tablet 52 daily. Medicin e clonazepam Yes 1mg Take 1 mg [facility] (KLONOPIN) 2-09 by mouth Colle ge 1 MG tablet 13:58: daily. of 52 Medicin e venlafaxine Yes 75mg Take 75 mg [facility] (EFFEXOR-XR 2-09 by mouth Alyssa ege ) 75 MG XR 13:58: daily. of capsule 52 Medicin e clopidogrel 0 Yes 75mg Take 75 mg [facility] (PLAVIX) 75 2-09 by mouth Alyssa ege [...] Medicin e Cyanocobala Yes Take by [facility] min (B-12) 2-09 mouth. [place] 2500 MCG 13:58: of TABS 52 Medicin e Ascorbic Yes Take by [place] [facility] Acid 2-09 mouth. [place] (VITAMIN C) 13:58: of 500 MG CAPS 52 Medicin e Ferrous Yes Take by [facility] Sulfate 2-09 mouth. [place] (IRON) 325 13:58: of (65 Fe) MG [...] atorvastati 2020-08 Yes 80mg Take 80 mg [facility] n (LIPITOR) 2-13 by mouth Alyssa ege 80 MG 00:00: daily. of tablet 00 Medicin e AMLODIPINE 2020-08 Yes TAKE 1 NPI:1 83 10 mg 1-26 TABLET BY [id number] tablet 00:00: MOUTH 00 DAILY AMLODIPINE 2020-08 Yes TAKE 1 NPI:1 83 10 mg 1-26 TABLET BY [id number] tablet 00:00: MOUTH 00 DAILY PANTOPRAZOL 2020-08 Yes [id number] 40mg TAKE 1 NPI:183 E 40 mg EC 0-11 TABLET BY 1318 781 tablet 00:00: MOUTH 00 DAILY PANTOPRAZOL 2020-08 Yes [id number] 40mg TAKE 1 NPI:183 E 40 mg EC 0-11 TABLET BY 1318 781 tablet 00:00: MOUTH 00 DAILY PANTOPRAZOL 2020-08 Yes [id number] 40mg TAKE 1 NPI:183 E 40 mg EC 0-11 TABLET BY 1318 781 tablet 00:00: MOUTH 00 DAILY memantine Yes 10mg Take 10 mg [facility] (NAMENDA) 9-18 by mouth Colleg e 10 MG 00:00: two times of tablet 00 daily. Medicin e NaCl 0.9% 2020- No 1000mL at 999 NPI :183 (NS) bolus 8- 08-31 mL/hr, [id number] 1 infusion 05:30: 05:30 1,000 mL, 1,000 mL 00 :00 IV Infusion, ONCE, 1 dose, Wed04/01/21 at 0030, STAT NaCl 0.9% 2020- No 1000mL at 999 NPI :183 (NS) bolus 8-31 08-31 mL/hr, [id number] 1 infusion 05:30: 05:30 1,000 mL, 1,000 mL 00 :00 IV Infusion, ONCE, 1 dose, Wed04/01/21 at 0030, STAT NaCl 0.9% 2020- No 500mL at 999 NPI: 183 (NS) bolus 8-31 08-31 mL/hr, 500 13 [id number] infusion 02:15: 02:55 mL, IV 500 mL 00 :00 Piggyback, ONCE, 1 dose, Wed03/31/21 at 2115, STAT NaCl 0.9% 2020- No 500mL at 999 NPI: 183 (NS) bolus 04-01 08-31 mL/hr, 500 13 [id number] infusion 02:15: 02:55 mL, IV 500 mL 00 :00 Piggyback, ONCE, 1 dose, 03/31/21 at 2115, STAT amLODIPine 2020- No [id number] 10mg Take 1 NPI:183 10 mg 7-29 10-28 tablet by [id number] tablet 00:00: 04:59 mouth 00 :00 daily for 90 days. amLODIPine 2020- No [id number] 10mg Take 1 NPI:183 10 mg 7-29 10-28 tablet by [id number] tablet 00:00: 04:59 mouth 00 :00 daily for 90 days. amLODIPine 2020- No [id number] 10mg Take 1 NPI:183 10 mg 7-29 10-28 tablet by [id number] tablet 00:00: 04:59 mouth 00 :00 daily for 90 days. amLODIPine 2020- No [id number] 10mg Take 1 NPI:183 10 mg 7-29 10-28 tablet by [id number] tablet 00:00: 04:59 mouth 00 :00 daily for 90 days. amLODIPine 2020- No [id number] 10mg Take 1 NPI:183 10 mg 7-29 10-28 tablet by [id number] tablet 00:00: 04:59 mouth 00 :00 daily for 90 days. amLODIPine 2020- No [id number] 10mg Take 1 NPI:183 10 mg 7-29 10-28 tablet by [id number] tablet 00:00: 04:59 mouth 00 :00 daily for 90 days. gabapentin Yes 600mg Take 600 [employer] I:183 300 mg 7-28 mg by [id number] capsule 23:25: mouth 3 24 (three) times daily. venlafaxine Yes 112.5mg Take 112.5 NPI:183 XR 37.5 mg 7-28 mg by [id number] 24 hr 23:25: mouth capsule 24 daily with breakfast. baclofen 5 Yes 10mg Take 10 mg N PI:183 mg tablet 7-28 by mouth 2 1318 781 23:25: (two) 24 times daily as needed (back pain). insulin 2020 Yes 20U inject 20 NPI:1 83 detemir 7-28 Units [id number] (LEVEMIR 23:25: under the U-100 24 skin 2 INSULIN SC) (two) times daily before breakfast and dinner. atorvastati 0 Yes 80mg Take 80 mg NPI:183 n 80 mg 7-28 by mouth [id number] tablet 23:25: at 24 bedtime. metFORMIN 2020-0 Yes 500mg Take 500 NPI :183 500 mg 7-28 mg by [id number] tablet 23:25: mouth 2 24 (two) times daily with meals. clopidogreL 0 Yes 75mg Take 75 mg NPI:183 (PLAVIX) 75 7-28 by mouth 1318 781 mg tablet 23:25: daily. 24 gabapentin 2020-0 Yes 600mg Take 600 [employer] I:183 300 mg 7-28 mg by [id number] capsule 23:25: mouth 3 24 (three) times daily. venlafaxine 0 Yes 112.5mg Take 112.5 NPI:183 XR 37.5 mg 7-28 mg by [id number] 24 hr 23:25: mouth capsule 24 daily with breakfast. baclofen 5 0 Yes 10mg Take 10 mg N PI:183 mg tablet 7-28 by mouth 2 1318 781 23:25: (two) 24 times daily as needed (back pain). insulin 0 Yes 20U inject 20 NPI:1 83 detemir 7-28 Units [id number] (LEVEMIR 23:25: under the U-100 24 skin 2 INSULIN SC) (two) times daily before breakfast and dinner. atorvastati 0 Yes 80mg Take 80 mg NPI:183 n 80 mg 7-28 by mouth [id number] tablet 23:25: at 24 bedtime. metFORMIN 2020-0 Yes 500mg Take 500 NPI :183 500 mg 7-28 mg by [id number] tablet 23:25: mouth 2 24 (two) times daily with meals. clopidogreL 2020-0 Yes 75mg Take 75 mg NPI:183 (PLAVIX) 75 7-28 by mouth 1318 781 mg tablet 23:25: daily. 24 gabapentin 2020-0 Yes 600mg Take 600 [employer] I:183 300 mg 7-28 mg by [id number] capsule 23:25: mouth 3 24 (three) times daily. venlafaxine 0 Yes 112.5mg Take 112.5 NPI:183 XR 37.5 mg 7-28 mg by [id number] 24 hr 23:25: mouth capsule 24 daily with breakfast. baclofen 5 0 Yes 10mg Take 10 mg N PI:183 mg tablet 7-28 by mouth 2 1318 781 23:25: (two) 24 times daily as needed (back pain). insulin 2020-0 Yes 20U inject 20 NPI:1 83 detemir 7-28 Units [id number] (LEVEMIR 23:25: under the U-100 24 skin 2 INSULIN SC) (two) times daily before breakfast and dinner. atorvastati 0 Yes 80mg Take 80 mg NPI:183 n 80 mg 7-28 by mouth [id number] tablet 23:25: at 24 bedtime. metFORMIN 0 Yes 500mg Take 500 NPI :183 500 mg 7-28 mg by [id number] tablet 23:25: mouth 2 24 (two) times daily with meals. clopidogreL 0 Yes 75mg Take 75 mg NPI:183 (PLAVIX) 75 7-28 by mouth 1318 781 mg tablet 23:25: daily. 24 gabapentin 0 Yes 600mg Take 600 [employer] I:183 300 mg 7-28 mg by [id number] capsule 23:25: mouth 3 24 (three) times daily. venlafaxine 2020-0 Yes 112.5mg Take 112.5 NPI:183 XR 37.5 mg 7-28 mg by [id number] 24 hr 23:25: mouth capsule 24 daily with breakfast. baclofen 5 0 Yes 10mg Take 10 mg N PI:183 mg tablet 7-28 by mouth 2 1318 781 23:25: (two) 24 times daily as needed (back pain). insulin 2020-0 Yes 20U inject 20 NPI:1 83 detemir 7-28 Units [id number] (LEVEMIR 23:25: under the U-100 24 skin 2 INSULIN SC) (two) times daily before breakfast and dinner. atorvastati 2020-0 Yes 80mg Take 80 mg NPI:183 n 80 mg 7-28 by mouth [id number] tablet 23:25: at 24 bedtime. metFORMIN 2021-0 Yes 500mg Take 500 NPI :183 500 mg 7-28 mg by [id number] tablet 23:25: mouth 2 24 (two) times daily with meals. clopidogreL 2021-0 Yes 75mg Take 75 mg NPI:183 (PLAVIX) 75 7-28 by mouth 1318 781 mg tablet 23:25: daily. 24 gabapentin 202-0 Yes 600mg Take 600 [employer] I:183 300 mg 7-28 mg by [id number] capsule 23:25: mouth 3 24 (three) times daily. venlafaxine 202-0 Yes 112.5mg Take 112.5 NPI:183 XR 37.5 mg 7-28 mg by [id number] 24 hr 23:25: mouth capsule 24 daily with breakfast. baclofen 5 2020-0 Yes 10mg Take 10 mg N PI:183 mg tablet 7-28 by mouth 2 1318 781 23:25: (two) 24 times daily as needed (back pain). insulin 2020-0 Yes 20U inject 20 NPI:1 83 detemir 7-28 Units [id number] (LEVEMIR 23:25: under the U-100 24 skin 2 INSULIN SC) (two) times daily before breakfast and dinner. atorvastati 2020-0 Yes 80mg Take 80 mg NPI:183 n 80 mg 7-28 by mouth [id number] tablet 23:25: at 24 bedtime. metFORMIN 2020-0 Yes 500mg Take 500 NPI :183 500 mg 7-28 mg by [id number] tablet 23:25: mouth 2 24 (two) times daily with meals. clopidogreL 2021-0 Yes 75mg Take 75 mg NPI:183 (PLAVIX) 75 7-28 by mouth 1318 781 mg tablet 23:25: daily. 24 gabapentin 2021-0 Yes 600mg Take 600 [employer] I:183 300 mg 7-28 mg by [id number] capsule 18:25: mouth 3 24 (three) times daily. venlafaxine 2021-0 Yes 112.5mg Take 112.5 NPI:183 XR 37.5 mg 7-28 mg by [id number] 24 hr 18:25: mouth capsule 24 daily with breakfast. baclofen 5 2020-0 Yes 10mg Take 10 mg N PI:183 mg tablet 7-28 by mouth 2 1318 781 18:25: (two) 24 times daily as needed (back pain). insulin 202-0 Yes 20U inject 20 NPI:1 83 detemir 7-28 Units [id number] (LEVEMIR 18:25: under the U-100 24 skin 2 INSULIN SC) (two) times daily before breakfast and dinner. atorvastati 0 Yes 80mg Take 80 mg NPI:183 n 80 mg 7-28 by mouth [id number] tablet 18:25: at 24 bedtime. metFORMIN 0 Yes 500mg Take 500 NPI :183 500 mg 7-28 mg by [id number] tablet 18:25: mouth 2 24 (two) times daily with meals. clopidogreL 0 Yes 75mg Take 75 mg NPI:183 (PLAVIX) 75 7-28 by mouth 1318 781 mg tablet 18:25: daily. 24 gabapentin 0 Yes 600mg Take 600 [employer] I:183 300 mg 7-28 mg by [id number] capsule 18:25: mouth 3 24 (three) times daily. venlafaxine 0 Yes 112.5mg Take 112.5 NPI:183 XR 37.5 mg 7-28 mg by [id number] 24 hr 18:25: mouth capsule 24 daily with breakfast. baclofen 5 0 Yes 10mg Take 10 mg N PI:183 mg tablet 7-28 by mouth 2 1318 781 18:25: (two) 24 times daily as needed (back pain). insulin 0 Yes 20U inject 20 NPI:1 83 detemir 7-28 Units [id number] (LEVEMIR 18:25: under the U-100 24 skin 2 INSULIN SC) (two) times daily before breakfast and dinner. atorvastati 0 Yes 80mg Take 80 mg NPI:183 n 80 mg 7-28 by mouth [id number] tablet 18:25: at 24 bedtime. metFORMIN 0 Yes 500mg Take 500 NPI :183 500 mg 7-28 mg by [id number] tablet 18:25: mouth 2 24 (two) times daily with meals. clopidogreL 2020-0 Yes 75mg Take 75 mg NPI:183 (PLAVIX) 75 7-28 by mouth 1318 781 mg tablet 18:25: daily. 24 gabapentin 2021-0 Yes 600mg Take 600 [employer] I:183 300 mg 7-28 mg by [id number] capsule 18:25: mouth 3 24 (three) times daily. venlafaxine Yes 112.5mg Take 112.5 NPI:183 XR 37.5 mg 7-28 mg by [id number] 24 hr 18:25: mouth capsule 24 daily with breakfast. baclofen 5 Yes 10mg Take 10 mg N PI:183 mg tablet 7-28 by mouth 2 1318 781 18:25: (two) 24 times daily as needed (back pain). insulin Yes 20U inject 20 NPI:1 83 detemir 7-28 Units [id number] (LEVEMIR 18:25: under the U-100 24 skin 2 INSULIN SC) (two) times daily before breakfast and dinner. atorvastati Yes 80mg Take 80 mg NPI:183 n 80 mg 7-28 by mouth [id number] tablet 18:25: at 24 bedtime. metFORMIN Yes 500mg Take 500 NPI :183 500 mg 7-28 mg by [id number] tablet 18:25: mouth 2 24 (two) times daily with meals. clopidogreL Yes 75mg Take 75 mg NPI:183 (PLAVIX) 75 7-28 by mouth 1318 781 mg tablet 18:25: daily. 24 desipramine 2020- No 10mg Take 10 mg NPI:183 10 mg -26 02-28 by mouth 3 [id number] tablet 17:05: 00:00 (three) 58 :00 times daily. BUPRENORPHI 2020- No 10mg Place 10 N PI:183 NE HCL 02-26-28 mg in [id number] BUCCAL 17:05: 00:00 cheeks 58 :00 every 12 (twelve) hours. sotaloL 2020- No 80mg Take 80 mg NPI :183 (SOTALOL 02-26- by mouth [id number] 1 AF) 80 mg 17:05: 00:00 daily. tablet 58 :00 amLODIPine- 2020- No amlodipine NPI:183 benazepriL - 07-28 10 [id number] 10-40 mg 17:05: 00:00 mg-benazep per capsule 58 :00 ril 40 mg capsule amLODIPine Yes 10mg 10 mg, NPI:1 83 (NORVASC) 7-28 Oral, [id number] tablet 10 14:00: DAILY, mg 00 First dose (after last modificati on) on Wed02/26/21 at 0900, Until Discontinu ed, Routine sennosides Yes [id number] 8.6mg Take 1 NPI:183 8.6 mg 7-28 tablet by [id number] tablet 00:00: mouth 2 00 (two) times daily. polyethylen Yes [id number] 17g Take 1 NPI:183 e glycol 7-28 Packet by [id number] 1 3350 17 00:00: mouth 2 gram powder 00 (two) times daily. pantoprazol Yes [id number] 40mg Take 1 NPI:183 e 40 mg EC 7-28 tablet by 1318 781 tablet 00:00: mouth 00 daily. bisacodyL Yes [id number] 10mg Insert 1 NPI:183 10 mg 7-28 Suppositor [id number] suppository 00:00: y into 00 rectum at bedtime. sennosides Yes [id number] 8.6mg Take 1 NPI:183 8.6 mg 7-28 tablet by [id number] tablet 00:00: mouth 2 00 (two) times daily. polyethylen Yes [id number] 17g Take 1 NPI:183 e glycol 7-28 Packet by [id number] 1 3350 17 00:00: mouth 2 gram powder 00 (two) times daily. pantoprazol Yes [id number] 40mg Take 1 NPI:183 e 40 mg EC 7-28 tablet by 1318 781 tablet 00:00: mouth 00 daily. bisacodyL Yes [id number] 10mg Insert 1 NPI:183 10 mg 7-28 Suppositor [id number] suppository 00:00: y into 00 rectum at bedtime. sennosides Yes [id number] 8.6mg Take 1 NPI:183 8.6 mg 7-28 tablet by [id number] tablet 00:00: mouth 2 00 (two) times daily. polyethylen Yes [id number] 17g Take 1 NPI:183 e glycol 7-28 Packet by [id number] 1 3350 17 00:00: mouth 2 gram powder 00 (two) times daily. pantoprazol Yes [id number] 40mg Take 1 NPI:183 e 40 mg EC 7-28 tablet by 1318 781 tablet 00:00: mouth 00 daily. bisacodyL Yes [id number] 10mg Insert 1 NPI:183 10 mg 7-28 Suppositor [id number] suppository 00:00: y into 00 rectum at bedtime. sennosides Yes [id number] 8.6mg Take 1 NPI:183 8.6 mg 7-28 tablet by [id number] tablet 00:00: mouth 2 00 (two) times daily. polyethylen Yes [id number] 17g Take 1 NPI:183 e glycol 7-28 Packet by [id number] 1 3350 17 00:00: mouth 2 gram powder 00 (two) times daily. pantoprazol Yes [id number] 40mg Take 1 NPI:183 e 40 mg EC 7-28 tablet by 1318 781 tablet 00:00: mouth 00 daily. bisacodyL Yes [id number] 10mg Insert 1 NPI:183 10 mg 7-28 Suppositor [id number] suppository 00:00: y into 00 rectum at bedtime. sennosides Yes [id number] 8.6mg Take 1 NPI:183 8.6 mg 7-28 tablet by [id number] tablet 00:00: mouth 2 00 (two) times daily. polyethylen Yes [id number] 17g Take 1 NPI:183 e glycol 7-28 Packet by [id number] 1 3350 17 00:00: mouth 2 gram powder 00 (two) times daily. pantoprazol Yes [id number] 40mg Take 1 NPI:183 e 40 mg EC 7-28 tablet by 1318 781 tablet 00:00: mouth 00 daily. bisacodyL Yes [id number] 10mg Insert 1 NPI:183 10 mg 7-28 Suppositor [id number] suppository 00:00: y into 00 rectum at bedtime. sennosides 0 Yes [id number] 8.6mg Take 1 NPI:183 8.6 mg 7-28 tablet by [id number] tablet 00:00: mouth 2 00 (two) times daily. polyethylen 0 Yes [id number] 17g Take 1 NPI:183 e glycol 7-28 Packet by [id number] 1 3350 17 00:00: mouth 2 gram powder 00 (two) times daily. bisacodyL 0 Yes [id number] 10mg Insert 1 NPI:183 10 mg 7-28 Suppositor [id number] suppository 00:00: y into 00 rectum at bedtime. sennosides 0 Yes [id number] 8.6mg Take 1 NPI:183 8.6 mg 7-28 tablet by [id number] tablet 00:00: mouth 2 00 (two) times daily. polyethylen 0 Yes [id number] 17g Take 1 NPI:183 e glycol 7-28 Packet by [id number] 1 3350 17 00:00: mouth 2 gram powder 00 (two) times daily. bisacodyL 0 Yes [id number] 10mg Insert 1 NPI:183 10 mg 7-28 Suppositor [id number] suppository 00:00: y into 00 rectum at bedtime. sennosides 0 Yes [id number] 8.6mg Take 1 NPI:183 8.6 mg 7-28 tablet by [id number] tablet 00:00: mouth 2 00 (two) times daily. polyethylen 0 Yes [id number] 17g Take 1 NPI:183 e glycol 7-28 Packet by [id number] 1 3350 17 00:00: mouth 2 gram powder 00 (two) times daily. bisacodyL 0 Yes [id number] 10mg Insert 1 NPI:183 10 mg 7-28 Suppositor [id number] suppository 00:00: y into 00 rectum at bedtime. pantoprazol 202- No [id number] 40mg Take 1 NPI:183 e 40 mg EC 7-28 10-11 tablet by [id number] tablet 00:00: 00:00 mouth 00 :00 daily. sulfamethox 2020- No [id number] 1{tbl} Take 1 NPI:183 azole-trime 02-26 tablet by thoprim 00:00: 04:59 mouth 2 800-160 mg 00 :00 (two) per tablet times daily for 13 days. sulfamethox 2020- No [id number] 1{tbl} Take 1 NPI:183 azole-trime 02-26 tablet by thoprim 00:00: 04:59 mouth 2 800-160 mg 00 :00 (two) per tablet times daily for 13 days. clonazePAM Yes .5mg 0.5 mg, NPI: 183 (KLONOPIN) 02-25 Oral, [id number] tablet 0.5 19:45: DAILY, mg 00 First dose on Wed02/25/21 at 1445, Until Discontinu ed, Routine amLODIPine 2020- No 5mg 5 mg, NPI:1 83 (NORVASC) 02-25 Oral, [id number] tablet 5 mg 19:41: 20:59 ONCE, 1 00 :00 dose, Wed02/25/21 at 1445, Routine clopidogreL Yes 75mg 75 mg, NPI: 183 (PLAVIX) 02-25 Oral, [id number] tablet 75 14:00: DAILY, mg 00 First dose on Wed02/25/21 at 0900, Until Discontinu ed, Routine insulin Yes 20U 20 Units, NPI:1 83 [id number] U-100 12:30: us, BIDAC, (LEVEMIR 00 First dose U-100 on Wed INSULIN) 02/25/21 at injection 0730, 20 Units Until Discontinu ed
Rest ricted - To be dispensed only to: Continuati on from home Sliding Yes Subcutaneo NPI: 183 Scale 02-25 us, TID [id number] Insulin - 02:00: MEALS+HS, Lispro 00 First dose (HumaLOG) + (after Fsbg last Testing modificati on) on Wed02/24/21 at 2100, Until Discontinu ed, Routine atorvastati Yes 80mg 80 mg, NPI: 183 n (LIPITOR) 02-25 Oral, QHS, tablet 80 02:00: First dose mg 00 on Wed02/24/21 at 2100, Until Discontinu ed, Routine gabapentin Yes 600mg 600 mg, NPI :183 (NEURONTIN) 02-25 Oral, TID, capsule 600 01:00: First dose mg 00 on Wed02/24/21 at 2000, Until Discontinu ed, Routine sulfamethox Yes 1{tbl} 1 tablet, NPI:183 azole-trime 02-25 Oral, BID, thoprim 01:00: First dose (BACTRIM 00 on Wed) 800-160 02/24/21 at mg per 1999, tablet 1 Until tablet Discontinu ed, EDIL
Re ason for Anti-Infec tive: Documented Infection< br>Documen elaine Infection Site: Urine
D uration of Therapy: 7 days baclofen Yes 10mg 10 mg, NPI:183 (LIORESAL) 02-24 Oral, [id number] tablet 10 22:29: BIDPRN, mg 21 Starting Wed02/24/21 at 1729, Until Discontinu ed, Routine, back pain famotidine 2020- No 20mg 20 mg, NPI: 183 (PEPCID AC) 02-24 Oral, [id number] 1 tablet 20 15:00: 14:19 ONCE, 1 mg 00 :00 dose, Wed02/24/21 at 1000, Routine amLODIPine 2020- No 5mg 5 mg, NPI:1 83 (NORVASC) 02-24 Oral, [id number] tablet 5 mg 14:00: 19:41 DAILY, 00 :51 First dose on Wed02/24/21 at 0900, Until Discontinu ed, Routine bisacodyL Yes 10mg 10 mg, NPI:18 3 (DULCOLAX) 02-23 Rectal, [id number] 1 suppository 02:00: QHS, First 10 mg 00 dose (after last modificati on) on Wed02/22/21 at 2100, Until Discontinu ed, Routine sennosides Yes 8.6mg 8.6 mg, NPI :183 (SENOKOT) 02-21 Oral, BID, [id number] 781 tablet 8.6 21:30: First dose mg 00 on Wed02/21/21 at 1630, Until Discontinu ed, Routine polyethylen Yes 17g 17 g, NPI:1 83 e glycol 02-21 Oral, BID, 80264 81 3350 powder 21:30: First dose 17 g 00 on Wed02/21/21 at 1630, Until Discontinu ed, Routine piperacilli 2020- No 3.375g 3.375 g, NPI:183 n-tazobacta 02-21 IV [id number] m (ZOSYN) 14:30: 20:43 Piggyback, 3.375 00 :53 Q6H ABX, gram/50 mL First dose Piggyback (after RTU 3.375 g last reorder) on Wed02/21/21 at 0930, Until Discontinu ed, 50 mL
Reas on for Anti-Infec tive: Documented Infection< br>Documen elaine Infection Site: Urine
D uration of Therapy: Other (see Comments) magnesium 2020- No 2000mg 2,000 mg, NPI:183 sulfate in 02-21 IV [id number] water 2 14:15: 16:54 Infusion, gram/50 mL 00 :00 ONCE, 1 (4 %) 2,000 dose, Fri mg 02/21/21 at piggyback 0915 pantoprazol Yes 40mg 40 mg, NPI: 183 e 02-21 Oral, [id number] (PROTONIX) 14:00: DAILY, EC tablet 00 First dose 40 mg on Wed02/21/21 at 0900, Until Discontinu ed, Routine sennosides- 2020- No 1{tbl} 1 tablet, NPI:183 docusate 02-21 Oral, [id number] sodium 14:00: 14:06 DAILY, (SENOKOT-S) 00 :29 First dose 8.6-50 mg on Fri per tablet 02/21/21 at 1 tablet 0900, Until Discontinu ed, Routine heparin Yes 5000U 5,000 NPI:183 (porcine) 02-21 Units, [id number] injection 13:00: Subcutaneo 5,000 Units 00 us, Q12H, First dose on Wed02/21/21 at 0800, Until Discontinu ed, Routine Sliding 2020- No Subcutaneo NPI :183 Scale 02-21 07-27 us, AC+HS, [id number] Insulin-Reg 12:30: 00:28 First dose ular + Fsbg 00 :19 on Wed Testing 02/21/21 at 0730, Until Discontinu ed, Routine acetaminoph Yes 650mg 650 mg, [employer] I:183 en 02-21 Oral, [id number] (TYLENOL) 10:38: Q6HPRN, tablet 650 43 Starting mg Wed02/21/21 at 0538, Until Discontinu ed, Routine, Pain (scale 1-3), Temp > 38.5 C NaCl 0.9% 2020- No 1000mL at 999 NPI :183 (NS) bolus 02-21 mL/hr, [id number] 1 infusion 10:15: 11:19 1,000 mL, 1,000 mL 00 :00 IV Piggyback, ONCE, 1 dose, Wed02/21/21 at 0515, STAT cefTRIAXone No 1000mg 1,000 mg, NPI:183 (ROCEPHIN) 02-21 IV [id number] 1,000 mg in 10:02: 13:18 Piggyback, NaCl 0.9% 00 :11 Q24H ABX, (NS) 50 mL First dose MINI-BAG on Wed02/21/21 at 0515, Until Discontinu ed, 50 mL
R laura for Anti-Infec tive: Documented Infection< br>Documen elaine Infection Site: Urine<br&g t;Duration of Therapy: 14 days piperacilli 2020- No 3.375g 3.375 g, NPI:183 n-tazobacta 02-21 IV [id number] m (ZOSYN) 07:15: 07:40 Piggyback, 3.375 g in 00 :00 ONCE, 1 NaCl 0.9% dose, Wed (NS) 100 mL 02/21/21 at MINI-BAG 0215, 100 mL
Reas on for Anti-Infec tive: Documented Infection< br>Documen elaine Infection Site: Urine
D uration of Therapy: Other (see Comments) NaCl 0.9% 2020- No 1000mL at 100 NPI :183 (NS) IV 02-21-23 mL/hr, [id number] infusion 07:00: 17:01 Intravenou 1,000 mL 00 :20 s, CONTINUOUS , Starting Wed02/21/21 at 0200, Until Wed02/21/21 at 1201, Routine clindamycin 2020- No 600mg 600 mg, IV NPI:183 (CLEOCIN) 02-21 Piggyback, [id number] injection 03:15: 03:15 ONCE, 1 600 mg 00 :00 dose, Maricel 02/20/21 at 2215, EDIL
Re ason for Anti-Infec tive: Documented Infection< br>Documen elaine Infection Site: Urine
D uration of Therapy: Other (see Comments)< br>Restric elaine use approved by: [employer] PROVIDER iopamidol 2020- No [id number] 120mL 120 mL, NPI:183 (ISOVUE 02-21 Intravenou 60555 81 370-500 mL) 02:33: 02:33 s, ONCE, 1 injection 00 :00 dose, Maricel 120 mL 02/20/21 at 2145, Routine NaCl 0.9% 2020- No 1000mL at 999 NPI :183 (NS) bolus 02-21 mL/hr, [id number] 1 infusion 02:00: 05:10 1,000 mL, 1,000 mL 00 :00 IV Piggyback, ONCE, 1 dose, Maricel 02/20/21 at 2100, STAT clonazePAM Yes [id number] .5mg Take 1 [employer] I:183 0.5 mg 6-18 tablet by [id number] tablet 00:00: mouth 2 00 (two) times daily as needed (anxiety). amLODIPine Yes [id number] 5mg Take 1 N PI:183 5 mg tablet 6-18 tablet by 131 8781 00:00: mouth 00 daily. carvediloL 2021-0 Yes [id number] 12.5mg Take 1 NPI:183 12.5 mg 6-18 tablet by [id number] tablet 00:00: mouth 2 00 (two) times daily with meals. NaCl 0.9% 1-0 Yes [id number] 2000mg Infuse N PI:183 (NS) SolP 6-18 2,000 mg [id number] 1 100 mL with 00:00: every 8 ceFAZolin 00 (eight) 10 gram hours. SolR 2,000 mg clonazePAM 2021-0 Yes [id number] .5mg Take 1 [employer] I:183 0.5 mg 6-18 tablet by [id number] tablet 00:00: mouth 2 00 (two) times daily as needed (anxiety). amLODIPine 1-0 Yes [id number] 5mg Take 1 N PI:183 5 mg tablet 6-18 tablet by 131 8781 00:00: mouth 00 daily. carvediloL 1-0 Yes [id number] 12.5mg Take 1 NPI:183 12.5 mg 6-18 tablet by [id number] tablet 00:00: mouth 2 00 (two) times daily with meals. NaCl 0.9% 2020-0 Yes [id number] 2000mg Infuse N PI:183 (NS) SolP 6-18 2,000 mg [id number] 1 100 mL with 00:00: every 8 ceFAZolin 00 (eight) 10 gram hours. SolR 2,000 mg clonazePAM 1-0 Yes [id number] .5mg Take 1 [employer] I:183 0.5 mg 6-18 tablet by [id number] tablet 00:00: mouth 2 00 (two) times daily as needed (anxiety). amLODIPine 1-0 Yes [id number] 5mg Take 1 N PI:183 5 mg tablet 6-18 tablet by 131 8781 00:00: mouth 00 daily. carvediloL 2021-0 Yes [id number] 12.5mg Take 1 NPI:183 12.5 mg 6-18 tablet by [id number] tablet 00:00: mouth 2 00 (two) times daily with meals. NaCl 0.9% 2021-0 Yes [id number] 2000mg Infuse N PI:183 (NS) SolP 6-18 2,000 mg 945198 1 100 mL with 00:00: every 8 ceFAZolin 00 (eight) 10 gram hours. SolR 2,000 mg clonazePAM 2021-0 Yes [id number] .5mg Take 1 [employer] I:183 0.5 mg 6-18 tablet by [id number] tablet 00:00: mouth 2 00 (two) times daily as needed (anxiety). amLODIPine 1-0 Yes [id number] 5mg Take 1 N PI:183 5 mg tablet 6-18 tablet by 131 8781 00:00: mouth 00 daily. carvediloL 2021-0 Yes [id number] 12.5mg Take 1 NPI:183 12.5 mg 6-18 tablet by [id number] tablet 00:00: mouth 2 00 (two) times daily with meals. NaCl 0.9% 2021-0 Yes [id number] 2000mg Infuse N PI:183 (NS) SolP 6-18 2,000 mg 194623 1 100 mL with 00:00: every 8 ceFAZolin 00 (eight) 10 gram hours. SolR 2,000 mg clonazePAM 2021-0 Yes [id number] .5mg Take 1 [employer] I:183 0.5 mg 6-18 tablet by [id number] tablet 00:00: mouth 2 00 (two) times daily as needed (anxiety). clonazePAM 2021-0 Yes [id number] .5mg Take 1 [employer] I:183 0.5 mg 6-18 tablet by [id number] tablet 00:00: mouth 2 00 (two) times daily as needed (anxiety). clonazePAM 2021-0 Yes [id number] .5mg Take 1 [employer] I:183 0.5 mg 6-18 tablet by [id number] tablet 00:00: mouth 2 00 (two) times daily as needed (anxiety). clonazePAM 2021-0 Yes [id number] .5mg Take 1 [employer] I:183 0.5 mg 6-18 tablet by [id number] tablet 00:00: mouth 2 00 (two) times daily as needed (anxiety). clonazePAM 2021-0 Yes [id number] .5mg Take 1 [employer] I:183 0.5 mg 6-18 tablet by [id number] tablet 00:00: mouth 2 00 (two) times daily as needed (anxiety). clonazePAM 2021-0 Yes [id number] .5mg Take 1 [employer] I:183 0.5 mg 6-18 tablet by [id number] tablet 00:00: mouth 2 00 (two) times daily as needed (anxiety). clonazePAM 2020-0 Yes [id number] .5mg Take 1 [employer] I:183 0.5 mg 6-18 tablet by [id number] tablet 00:00: mouth 2 00 (two) times daily as needed (anxiety). clonazePAM 2020-0 Yes [id number] .5mg Take 1 [employer] I:183 0.5 mg 6-18 tablet by [id number] tablet 00:00: mouth 2 00 (two) times daily as needed (anxiety). amLODIPine 2020- No [id number] 5mg Take 1 NPI:183 5 mg tablet 01-17- tablet by 13 61355 00:00: 00:00 mouth 00 :00 daily. carvediloL 2020- No [id number] 12.5mg Take 1 NPI:183 12.5 mg -18 - tablet by [id number] 1 tablet 00:00: 00:00 mouth 2 00 :00 (two) times daily with meals. NaCl 0.9% 2020- No [id number] 2000mg Infuse NPI:183 (NS) SolP -18 - 2,000 mg 78158 81 100 mL with 00:00: 00:00 every 8 ceFAZolin 00 :00 (eight) 10 gram hours. SolR 2,000 mg Humulin R Humulin R 2020-0 Yes Bryant 5 units NPI:174 8-07 [facility] PRN for BG [id number] 00:00: >200 1 hr 00 after meals baclofen 2020-0 Yes [id number] 10mg Q.5D Take 1 Meth ievtte (LIORESAL) 3-11 tablet (10 st 10 MG 00:00: mg total) [facility] tablet 00 by mouth 2 l (two) times a day. insulin 2020-0 Yes Q.5D Inject [facility] lispro 1-[address] (HumaLOG) 15:04: skin 2 Hospit a 100 unit/mL 33 (two) l injection times a day before meals. (PER SLIDING SCALE) gabapentin 2020-0 Yes 600mg Q.48684176 Take 600 [facility] (NEURONTIN) 1-21 [id number] mg by s t 600 mg 15:04: 3D mouth 3 [facility] tablet 33 (three) l times a day. tamsulosin 2020-0 Yes .4mg QD Take 0.4 [facility] (FLOMAX) 1-[address] 0.4 mg 15:04: mouth [facility] capsule,ext 33 every l ended morning. release 24hr metFORMIN 2020-0 Yes 500mg Q.18425397 Take 500 [facility] (GLUCOPHAGE 1-21 [id number] mg by s t ) 500 mg [...] mg tablet, 00 day. l sublingual Pen [place] Pen [place] 2018-08 Yes Bryatn 1 pen NPI:174 1-11 [facility] needle [id number] 00:00: 00 Lancets Lancets 2018-08 Yes Bryant 1 lancet N PI:174 1-11 [facility] [id number] 00:00: 00 desipramine 2019-0 Yes 10mg QD Take 10 mg [facility] (NOPRAMIN) -[address] 10 MG 00:00: nightly. [facility] tablet 00 l sotalol 2019-0 Yes 80mg QD Take 80 mg Meth [...] 6-27 st 32 gauge x 00:00: [facility]osp[facility] /32" 00 l needle One Touch One Touch Yes Bryant 1 strip to NPI:174 Ultra Test Ultra Test 5-02 [facility] test blood [id number] Strips Strips 00:00: glucose 00 sertraline Yes 1{tbl} QD Take 1 [facility] (ZOLOFT) 3-[address] 100 MG 00:00: mouth [facility] tablet 00 daily. l Blood Blood 2017-08 Yes Bryant as NPI:174 Glucose Glucose 2-21 [facility] directed 0805 876 Test Strip Test Strip 00:00: (DISPENSE 00 BLOOD TEST STRIPS OF RECORD) ARIPiprazol Yes TK 1 T PO N PI:183 e 10 mg 2-09 QD [id number] tablet 00:00: 00 ARIPiprazol Yes TK 1 T PO N PI:183 e 10 mg 2-09 QD [id number] tablet 00:00: 00 ARIPiprazol Yes TK 1 T PO N PI:183 e 10 mg 2-09 QD [id number] tablet 00:00: 00 ARIPiprazol Yes TK 1 T PO N PI:183 e 10 mg 2-09 QD [id number] tablet 00:00: 00 ARIPiprazol Yes TK 1 T PO N PI:183 e 10 mg 2-09 QD [id number] tablet 00:00: 00 ARIPiprazol Yes TK 1 T PO N PI:183 e 10 mg 2-09 QD [id number] tablet 00:00: 00 ARIPiprazol 2017-0 Yes TK 1 T PO N PI:183 e 10 mg 2-09 QD [id number] tablet 00:00: 00 ARIPiprazol 2017-0 Yes TK 1 T PO N PI:183 e 10 mg 2-09 QD [id number] tablet 00:00: 00 ARIPiprazol 2017-0 Yes TK 1 T PO N PI:183 e 10 mg 2-09 QD [id number] tablet 00:00: 00 ARIPiprazol 2017-0 Yes TK 1 T PO N PI:183 e 10 mg 2-09 QD [id number] tablet 00:00: 00 ARIPiprazol 2017-0 Yes TK 1 T PO N PI:183 e 10 mg 2-09 QD [id number] tablet 00:00: 00 ARIPiprazol 2017-0 2021- No TK 1 T PO NPI:183 e 10 mg 2-09 07-28 QD [id number] tablet 00:00: 00:00 00 :00 triamcinolo 2015-0 Yes [id number] Apply to NPI:183 ne 3-05 area(s) 2 [id number] acetonide 00:00: (two) (TRIDERM) 00 times 0.1 % cream daily. triamcinolo 2015-0 Yes [id number] Apply to NPI:183 ne 3-05 area(s) 2 [id number] acetonide 00:00: (two) (TRIDERM) 00 times 0.1 % cream daily. triamcinolo 2015-0 Yes [id number] Apply to NPI:183 ne 3-05 area(s) 2 [id number] acetonide 00:00: (two) (TRIDERM) 00 times 0.1 % cream daily. triamcinolo 2015-0 Yes [id number] Apply to NPI:183 ne 3-05 area(s) 2 [id number] acetonide 00:00: (two) (TRIDERM) 00 times 0.1 % cream daily. triamcinolo 2015-0 Yes [id number] Apply to NPI:183 ne 3-05 area(s) 2 [id number] acetonide 00:00: (two) (TRIDERM) 00 times 0.1 % cream daily. triamcinolo 2015-0 Yes [id number] Apply to NPI:183 ne 3-05 area(s) 2 [id number] acetonide 00:00: (two) (TRIDERM) 00 times 0.1 % cream daily. triamcinolo Yes [id number] Apply to NPI:183 ne 3-05 area(s) 2 [id number] acetonide 00:00: (two) (TRIDERM) 00 times 0.1 % cream daily. triamcinolo Yes [id number] Apply to NPI:183 ne 3-05 area(s) 2 [id number] acetonide 00:00: (two) (TRIDERM) 00 times 0.1 % cream daily. triamcinolo Yes [id number] Apply to NPI:183 ne 3-05 area(s) 2 [id number] acetonide 00:00: (two) (TRIDERM) 00 times 0.1 % cream daily. triamcinolo Yes [id number] Apply to NPI:183 ne 3-05 area(s) 2 [id number] acetonide 00:00: (two) (TRIDERM) 00 times 0.1 % cream daily. triamcinolo Yes [id number] Apply to NPI:183 ne 3-05 area(s) 2 3015394 acetonide 00:00: (two) (TRIDERM) 00 times 0.1 % cream daily. triamcinolo 2020- No [id number] Apply to NPI:183 ne 3-05 07-28 area(s) 2 [id number] acetonide 00:00: 00:00 (two) (TRIDERM) 00 :00 times 0.1 % cream daily. Z30-Oazzdc O94-Wcshls Yes Bryant as N PI:174 [facility] directed [id number] Aripiprazol Aripiprazol Yes Bryant 1 tablet NPI:174 e e [facility] [id number] Levemir Levemir Yes Bryant 20 units NPI :174 FlexTouch FlexTouch [facility] 0485 879 Atorvastati Atorvastati Yes Bryant 1 tablet NPI:174 n Calcium n Calcium [facility] 0485 879 Gemfibrozil Gemfibrozil Yes Bryant 1 tablet NPI:174 [facility] [id number] Baclofen Baclofen Yes Bryant 1 tablet N PI:174 [facility] with food 0811881 or milk Sotalol HCl Sotalol HCl Yes Bryant 1 tablet NPI:174 [facility] 6475619 Aspir-Low Aspir-Low Yes Bryant 1 tablet NPI:174 [facility] 7427338 MetFORMIN MetFORMIN Yes Bryant 1 tablet NPI:174 HCl ER HCl ER [facility] with 4814212 evening meal OneTouch OneTouch Yes Bryant USE 1 NPI: 174 Ultra Ultra [facility] STRIP TO [id number] TEST BLOOD GLUCOSE TWICE DAILY Venlafaxine Venlafaxine Yes Bryant 1 capsule NPI:174 HCl ER HCl ER [facility] with food 57300 79 Gabapentin Gabapentin Yes Bryant as N PI:174 [facility] directed 7265176 Plavix Plavix Yes Bryant TAKE 1 NPI:174 [facility] TABLET BY 1466385 MOUTH DAILY MetFORMIN MetFORMIN Yes Bryant TAKE 1 N PI:174 [place] [address] 79 MOUTH TWICE DAILY Indocin Indocin Yes Bryant 1 capsule [employer] I:174 [facility] with food 6963802 or milk Desipramine Desipramine Yes Bryant 1 tablet NPI:174 HCl HCl [facility] 9971422 D3 Adult D3 Adult Yes Bryant 1 tablet N PI:174 [facility] 7092386 Immunizations Ordered Immunization Filled Immunization Date Status Commen ts Source Name Name Pneumococcal 2011-08-31 Completed NPI:[id number] Polysaccharide, 00:00:00 PPSV23 (PNEUMOVAX) Pneumococcal 2011-08-31 Completed NPI:[id number] Polysaccharide, 00:00:00 PPSV23 (PNEUMOVAX) Pneumococcal 2011-08-31 Completed NPI:[id number] 81 Polysaccharide, 00:00:00 PPSV23 (PNEUMOVAX) Pneumococcal 2011-08-31 Completed NPI:[id number] 81 Polysaccharide, 00:00:00 PPSV23 (PNEUMOVAX) Pneumococcal 2011-08-31 Completed NPI:[id number] 81 Polysaccharide, 00:00:00 PPSV23 (PNEUMOVAX) Pneumococcal 2011-08-31 Completed NPI:[id number] 81 Polysaccharide, 00:00:00 PPSV23 (PNEUMOVAX) Pneumococcal 2011-08-31 Completed NPI:[id number] 81 Polysaccharide, 00:00:00 PPSV23 (PNEUMOVAX) Pneumococcal 2011-08-31 Completed NPI:[id number] 81 Polysaccharide, 00:00:00 PPSV23 (PNEUMOVAX) Pneumococcal 2011-08-31 Completed NPI:[id number] 81 Polysaccharide, 00:00:00 PPSV23 (PNEUMOVAX) Pneumococcal 2011-08-31 Completed NPI:[id number] 81 Polysaccharide, 00:00:00 PPSV23 (PNEUMOVAX) Pneumococcal 2011-08-31 Completed NPI:[id number] 81 Polysaccharide, 00:00:00 PPSV23 (PNEUMOVAX) Pneumococcal 2011-08-31 Completed NPI:[id number] 81 Polysaccharide, 00:00:00 PPSV23 (PNEUMOVAX) Pneumococcal 2011-08-31 Completed NPI:[id number] 81 Polysaccharide, 00:00:00 PPSV23 (PNEUMOVAX) Pneumococcal 2011-08-31 Completed NPI:[id number] 81 Polysaccharide, 00:00:00 PPSV23 (PNEUMOVAX) Pneumococcal 2011-08-31 Completed NPI:[id number] 81 Polysaccharide, 00:00:00 PPSV23 (PNEUMOVAX) Pneumococcal 2011-08-31 Completed NPI:[id number] 81 Polysaccharide, 00:00:00 PPSV23 (PNEUMOVAX) Pneumococcal 2011-08-31 Completed NPI:[id number] 81 Polysaccharide, 00:00:00 PPSV23 (PNEUMOVAX) Pneumococcal 2011-08-31 Completed NPI:[id number] 81 Polysaccharide, 00:00:00 PPSV23 (PNEUMOVAX) Pneumococcal 2011-08-31 Completed NPI:[id number] 81 Polysaccharide, 00:00:00 PPSV23 (PNEUMOVAX) Vital Signs Vital Name Observation Time Observation Value Comments Source Systolic blood 2021-09-10 19:49:00 116 mm[Hg] [facility] pressure Medicine Diastolic blood 2021-09-10 19:49:00 76 mm[Hg] [facility] Medicine Heart rate 2021-09-10 19:49:00 65 /min [facility] Body temperature 2021-09-10 19:49:00 37 Mitzi [facility] Respiratory rate 2021-09-10 19:49:00 16 /min [facility] Body height 2021-09-10 19:49:00 160 cm [facility] Body weight 2021-09-10 19:49:00 65.772 kg [facility] BMI 2021-09-10 19:49:00 25.69 kg/m2 [facility] Systolic blood 2021-04-01 05:00:00 127 mm[Hg] NPI:18 [id number] pressure Diastolic blood 2021-04-01 05:00:00 60 mm[Hg] NPI:1 [id number] pressure Heart rate 2021-04-01 05:00:00 62 /min NPI:1831 [id number] Respiratory rate 2021-04-01 05:00:00 17 /min Oxygen saturation in 2021-04-01 05:00:00 98 /min Arterial blood by Pulse oximetry Body temperature 2021-04-01 04:00:00 36.72 Mitzi Body weight 2021-04-01 00:54:00 63.504 kg NPI:1831 [id number] BMI 2021-04-01 00:54:00 23.30 kg/m2 NPI:1831 [id number] Systolic blood 2021-02-26 20:30:00 120 mm[Hg] NPI:18 [id number] pressure Diastolic blood 2021-02-26 20:30:00 76 mm[Hg] NPI:1 [id number] pressure Heart rate 2021-02-26 20:30:00 81 /min NPI:1831 [id number] Body temperature 2021-02-26 20:30:00 36.56 Mitzi Respiratory rate 2021-02-26 20:30:00 18 /min Oxygen saturation in 2021-02-26 20:30:00 98 /min Arterial blood by Pulse oximetry Body height 2021-02-21 10:48:00 165.1 cm NPI:1831 [id number] Body weight 2021-02-21 10:48:00 63.504 kg NPI:1831 311805 BMI 2021-02-21 10:48:00 23.30 kg/m2 NPI:1831 [id number] Systolic blood 2021-02-14 15:12:00 144 mm[Hg] NPI:18 [id number] pressure Diastolic blood 2021-02-14 15:12:00 76 mm[Hg] NPI:1 [id number] pressure Heart rate 2021-02-14 15:12:00 60 /min NPI:1831 [id number] Body temperature 2021-02-14 15:12:00 36.67 Mitzi Body height 2021-02-14 15:12:00 162.6 cm NPI:1831 124644 Oxygen saturation in 2021-02-14 15:12:00 98 /min Arterial blood by Pulse oximetry Body weight 2019-02-23 20:43:00 67.45 kg NPI:1831 443162 BMI 2019-02-23 20:43:00 25.52 kg/m2 NPI:1831 119800 Oxygen saturation in 2019-02-23 20:43:00 97 /min Arterial blood by Pulse oximetry Systolic blood 2019-02-23 20:43:00 146 mm[Hg] NPI:18 [id number] pressure Diastolic blood 2019-02-23 20:43:00 86 mm[Hg] NPI:1 [id number] pressure Heart rate 2019-02-23 20:43:00 66 /min NPI:1831 903329 Body temperature 2019-02-23 20:43:00 36.61 Mitzi Respiratory rate 2019-02-23 20:43:00 12 /min Body height 2019-02-23 20:43:00 162.6 cm NPI:1831 [id number] Body weight 2019-02-23 20:43:00 67.45 kg NPI:1831 057595 BMI 2019-02-23 20:43:00 25.52 kg/m2 NPI:1831 093092 Oxygen saturation in 2019-02-23 20:43:00 97 /min Arterial blood by Pulse oximetry Systolic blood 2019-02-23 20:43:00 146 mm[Hg] NPI:18 [id number] pressure Diastolic blood 2019-02-23 20:43:00 86 mm[Hg] NPI:1 [id number] pressure Heart rate 2019-02-23 20:43:00 66 /min NPI:1831 658755 Body temperature 2019-02-23 20:43:00 36.61 Mitzi Respiratory rate 2019-02-23 20:43:00 12 /min Body height 2019-02-23 20:43:00 162.6 cm NPI:1831 [id number] Procedures Procedure Date / Time Performing Clinician Source Performed BLOOD CULTURE SCREEN 2021-04-01 02:34:00 Laz Lock NPI:[id number] HEAD WO CONTRAST 2021-04-01 02:07:16 Laz Lock NPI:1831 [id number] URINALYSIS 2021-04-01 01:55:00 Laz Lock NPI:[id number] COVID-19 (ID NOW RAPID 2021-04-01 01:45:00 Laz Lock NPI:1 [id number] TESTING) CBC WITH DIFF 2021-04-01 01:41:00 Laz Lock NPI:[id number] PROTHROMBIN TIME / INR 2021-04-01 01:41:00 Laz Lock NPI:1 [id number] ACTIVATED PARTIAL 2021-04-01 01:41:00 Laz Lock NPI:[id number] THRMPLAS RADHA BLOOD CULTURE SCREEN 2021-04-01 01:38:00 Laz Lock NPI:037 [id number] LIPASE 2021-04-01 01:38:00 Laz Lock NPI:[id number] TROPONIN I 2021-04-01 01:38:00 Laz Lock NPI:[id number] 81 COMP. 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 I:[id number] NOTICE OF PRIVACY 2021-04-01 00:48:38 Doctor Unassigned, No PRACTICES Name CONSENT/REFUSAL FOR 2021-04-01 00:46:04 Doctor Unassigned, No [employer] I:[id number] DIAGNOSIS AND TREATMENT Name REFERRAL- 2021-03-21 05:01:00 Doctor Unassigned, No NPI:18 [id number] REQUEST/RESPONSE Name POCT GLUCOSE (AUTOMATED) 2021-02-26 22:10:00 Etta Mckeon [employer] FINANCE I:[id number] POCT GLUCOSE (AUTOMATED) 2021-02-26 17:16:00 Etta Mckeon [employer]ICE PRES[employer] FINANCE I:[id number] POCT GLUCOSE (AUTOMATED) 2021-02-26 13:42:00 Etta Mckeon [employer]ICE [employer] FINANCE I:[id number] BASIC METABOLIC PANEL 2021-02-26 10:38:00 ClaudetteLillie NPI:18 [id number] (NA, K, CL, CO2, GLUCOSE, BUN, CREATININE, CA) CBC WITH DIFF 2021-02-26 10:38:00 ClaudetteLillie NPI:[id number] POCT GLUCOSE (AUTOMATED) 2021-02-26 02:23:00 Etta Mckeon [employer]ICE PRESIDENT [employer] FINANCE I:[id number] POCT GLUCOSE (AUTOMATED) 2021-02-25 21:53:00 Etta Mckeon VICE PRESIDENT OF FINANCE I:[id number] POCT GLUCOSE (AUTOMATED) 2021-02-25 16:05:00 Etta Mckeon VICE PRESIDENT OF FINANCE I:[id number] POCT GLUCOSE (AUTOMATED) 2021-02-25 12:38:00 Etta Mckeon VICE PRESIDENT OF FINANCE I:[id number] BASIC METABOLIC PANEL 2021-02-25 08:09:00 Rhea Rickettsjali (NA, K, CL, CO2, GLUCOSE, BUN, CREATININE, CA) CBC WITH DIFF 2021-02-25 08:09:00 Jamarcus Sarah NPI:[id number] POCT GLUCOSE (AUTOMATED) 2021-02-25 02:14:00 Etta Mckeon VICE PRESIDENT OF FINANCE I:[id number] POCT GLUCOSE (AUTOMATED) 2021-02-24 21:52:00 Etta Mckeon VICE PRESIDENT OF FINANCE I:[id number] POCT GLUCOSE (AUTOMATED) 2021-02-24 16:38:00 Etta Mckeon VICE PRESIDENT OF FINANCE I:[id number] POCT GLUCOSE (AUTOMATED) 2021-02-24 12:35:00 Etta Mckeon VICE PRESIDENT OF FINANCE I:[id number] BASIC METABOLIC PANEL 2021-02-24 08:47:00 Lillie Wilkins NPI:[id number] (NA, K, CL, CO2, GLUCOSE, BUN, CREATININE, CA) CBC WITH DIFF 2021-02-24 08:47:00 Lillie Wilkins NPI:[id number] GLYCOSYLATED HEMOGLOBIN 2021-02-24 08:47:00 Zane Ricketts i (A1C) POCT GLUCOSE (AUTOMATED) 2021-02-24 01:40:00 CesardaniloJeffryEtta VICE PRESIDENT OF FINANCE I:[id number] POCT GLUCOSE (AUTOMATED) 2021-02-23 22:45:00 Etta Mckeon VICE PRESIDENT OF FINANCE I:[id number] POCT GLUCOSE (AUTOMATED) 2021-02-23 16:55:00 Etta Mckeon VICE PRESIDENT OF FINANCE I:[id number] POCT GLUCOSE (AUTOMATED) 2021-02-23 14:08:00 Etta Mckeon VICE PRESIDENT OF FINANCE I:[id number] BASIC METABOLIC PANEL 2021-02-23 08:46:00 Shuningrid Sarah (NA, K, CL, CO2, GLUCOSE, BUN, CREATININE, CA) CBC WITH DIFF 2021-02-23 08:46:00 Shuningrid Sarah NPI:[id number] POCT GLUCOSE (AUTOMATED) 2021-02-23 02:23:00 Jovannamitesh Etta VICE PRESIDENT OF FINANCE I:[id number] POCT GLUCOSE (AUTOMATED) 2021-02-22 22:50:00 Etta Mckeon VICE PRESIDENT OF FINANCE I:[id number] POCT GLUCOSE (AUTOMATED) 2021-02-22 17:08:00 Jeffry Mckeonina VICE PRESIDENT OF FINANCE I:[id number] BASIC METABOLIC PANEL 2021-02-22 09:31:00 Jamarcus Sarah (NA, K, CL, CO2, GLUCOSE, BUN, CREATININE, CA) CBC WITH DIFF 2021-02-22 09:31:00 ShunrobyalexisjanelRheaSarah NPI:[id number] POCT GLUCOSE (AUTOMATED) 2021-02-22 01:56:00 Etta Mckeon VICE PRESIDENT OF FINANCE I:[id number] POCT GLUCOSE (AUTOMATED) 2021-02-21 21:28:00 Jaclyn Wiggins NPI :[id number] POCT GLUCOSE (AUTOMATED) 2021-02-21 17:19:00 Jaclyn Wiggins NPI :[id number] POCT GLUCOSE (AUTOMATED) 2021-02-21 14:48:00 Jaclyn Wiggins NPI :[id number] PHOSPHORUS 2021-02-21 11:17:00 Gene Ruiz NPI:[id number] MAGNESIUM 2021-02-21 11:17:00 Gene Ruiz NPI:[id number] HEPATIC FUNCTION PANEL 2021-02-21 11:17:00 RuizJohn patiñoo NPI :[id number] ([id number]) (ALB,T.PRO,BILI T,BU/BC,ALT,AST,ALK PHOS) BASIC METABOLIC PANEL 2021-02-21 11:17:00 RuizJohn patiñoo (NA, K, CL, CO2, GLUCOSE, BUN, CREATININE, CA) CBC WITH DIFF 2021-02-21 11:17:00 John Ruizo NPI:[id number] PROTHROMBIN TIME / INR 2021-02-21 11:17:00 RuizJohn patiñoo NPI :[id number] ACTIVATED PARTIAL 2021-02-21 11:17:00 RuizJohn patiñoo NPI:[id number] THRMPLAS RADHA LACTIC ACID WHOLE BLOOD 2021-02-21 11:17:00 JosephJosé LuisGene VICE PRESIDENT OF FINANCE I:[id number] XR CHEST 1 VW 2021-02-21 02:52:40 Elsa Landry NPI:[id number] CT ABDOMEN PELVIS W 2021-02-21 02:39:56 Elsa Landry NPI:[id number] CONTRAST URINALYSIS 2021-02-21 01:08:00 Shefali Ruiz NPI:[id number] URINE CULTURE 2021-02-21 01:08:00 Shefali Ruiz NPI:[id number] HB ECG ROUTINE & RHYTHM 2021-02-21 01:01:32 Elsa Landry NPI :[id number] STRIP BLOOD CULTURE SCREEN 2021-02-21 00:58:00 Shefali Ruiz NPI:[id number] LIPASE 2021-02-21 00:58:00 Ruiz, Shefali NPI:[id number] TROPONIN I 2021-02-21 00:58:00 Ruiz, Shefali NPI:[id number] HEPATIC FUNCTION PANEL 2021-02-21 00:58:00 Reyna Ruizanne ([id number]) (ALB,T.PRO,BILI T,BU/BC,ALT,AST,ALK PHOS) COMP. METABOLIC PANEL 2021-02-21 00:58:00 Ruiz, Shefali NPI:1 [id number] ([id number]) CBC WITH DIFF 2021-02-21 00:58:00 Ruiz Shefali NPI:[id number] COVID-19 (ID NOW RAPID 2021-02-21 00:58:00 RuizShefali TESTING) LACTIC ACID WHOLE BLOOD 2021-02-21 00:57:00 RuizShefali NPI :[id number] NOTICE OF PRIVACY 2021-02-21 00:23:04 Doctor Unassigned, No PRACTICES Name PATIENT QUESTIONNAIRE 2021-02-14 05:01:00 Doctor Unassigned, No Name CT CHEST WO CONTRAST 2020-11-07 18:49:[address] [facility] XR CHEST 2 VW 2019-02-23 22:21:03 Enoch Cabrera NPI:[id number] Plan of Care Planned Activity Planned Date Details Comments Source Future Scheduled 2021-09-10 COMPLETE PFT WITHOUT 1 Occurrences [employer] Test 14:22:58 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 [code starting of Medi cine = 96623] 09/10/2021 until 09/10/2022 Future Scheduled 2021-09-10 CT CHEST HIGH 1 Occurrences [facility] [employer] Test 14:14:59 RESOLUTION WO starting of Medicine CONTRAST [code = 09/10/2021 until 32614-1] 09/10/2022 Future Scheduled 2021-09-10 Screening for [employer] [employer] Test 14:00:29 malignant neoplasm of of Med icine colon (procedure) [code = 379527712] Future Scheduled 2021-09-10 COVID-19 Vaccine (1) [facility] Test 14:00:29 [code = COVID-19 of Medicine Vaccine (1)] Future Scheduled 2021-09-10 TETANUS SHOT (ADULT) [facility] Test 14:00:29 [code = TETANUS SHOT of Medi cine (ADULT)] Future Scheduled 2021-09-10 Hepatitis C screening Ba [facility] Test 14:00:29 (procedure) [code = of Medic ine 122186276] Future Scheduled 2021-09-10 ZOSTER VACCINE (1 of [facility] Test 14:00:29 2) [code = ZOSTER of Medicin e VACCINE (1 of 2)] Future Scheduled 2021-09-10 FLU VACCINE > 6 [facility] [employer] Test 14:00:29 MONTHS [code = FLU of Medici ne VACCINE > 6 MONTHS] Future Scheduled 2021-09-10 FALL SCREEN [code = [employer] Test 14:00:29 FALL SCREEN] of Medicine Future Scheduled 2021-09-10 Pneumococcal 65+ (1 [employer] Test 14:00:29 of 1 - PPSV23) [code of Medi cine = Pneumococcal 65+ (1 of 1 - PPSV23)] Future Scheduled 2021-09-10 MEDICARE AWV [facility] Alyssa ege Test 14:00:29 (Initial) [code = [...] [facility] (procedure) [code = Hospital [id number]] Future Scheduled COLONOSCOPY SCREENING [facility] [code = COLONOSCOPY Hospital SCREENING] Future Scheduled SHINGLES VACCINES Method ist Test (#1) [code = SHINGLES Hospit al VACCINES (#1)] Future Scheduled INFLUENZA VACCINE Method ist Test [code = INFLUENZA Hospital VACCINE] Encounters Start End Encounter Admission Attending Care Care Encounter Source Date/Time Date/Time Type Type Clinicians Facility Department ID 2021-11-26 Outpatient Loera, STLMLC STLMLC [id number] NPI:174 09:54:01 Bryant [id number] 2021-08-27 Outpatient Loera, STLMLC STLMLC [id number] NPI:174 14:24:19 Bryant [id number] 2021-08-27 Outpatient Loera, STLMLC STLMLC [id number] NPI:174 14:23:28 Bryant [id number] 2021-08-27 Outpatient Loera, STLMLC STLMLC [id number] NPI:174 13:11:30 Bryant [id number] 2021-08-27 Outpatient Loera, STLMLC STLMLC [id number] NPI:174 12:58:11 Bryant [id number] 2021-08-27 Outpatient Loera, STLMLC STLMLC [id number] NPI:174 12:50:45 Bryant [id number] 2021-08-27 Outpatient Loera, STLMLC STLMLC [id number] NPI:174 12:33:09 Bryant [id number] 2021-08-27 Outpatient Loera, STLMLC STLMLC [id number] NPI:174 11:21:28 Bryant [id number] 2021-08-27 Outpatient Loera, STLMLC STLMLC [id number] NPI:174 11:14:28 Bryant [id number] 2021-08-27 Outpatient Loera, STLMLC STLMLC [id number] NPI:174 11:07:10 Bryant [id number] 2021-08-27 Outpatient Loera, STLMLC STLMLC [id number] NPI:174 11:01:07 Bryant [id number] 2021-08-27 Outpatient Loera, STLMLC STLMLC [id number] NPI:174 11:00:53 Bryant [id number] 2021-08-27 Outpatient Olera, STLMLC STLMLC [id number] NPI:174 10:58:57 Bryant [id number] 2021-06-02 Emergency [facility] [id number] NPI:183 19:11:59 [id number] 2001-11-01 Emergency [facility] [id number] NPI:183 10:12:20 [id number] 8526-11-01 Emergency [facility] [id number] NPI:183 00:43:37 [id number] 0450-03-02 Inpatient ARMANDO Calvillo SILAS [id number] [facility] 08:00:00 Trever [facility] 2019-09-19 Inpatient ARMANDO Vernon RADI [id number] [facility] 11:00:00 Trever [id number] [facility] 2021-11-26 2021-11-26 Outpatient MIHIR STARKEY [facility] [id number] [facility] 00:00:00 00:00:00 DIPABEN 2021-11-25 2021-11-25 ambulatory STLMLC STLMLC [id number] NPI:174 00:00:00 00:00:00 [id number] 2021-10-24 2021-10-24 Outpatient MIHIR STARKEY [facility] [id number] [facility] 00:00:00 00:00:00 DIPABEN 2021-10-23 2021-10-23 ambulatory STLMLC STLMLC [id number] NPI:174 00:00:00 00:00:00 [id number] 2021-10-20 2021-10-20 ambulatory STLMLC STLMLC [id number] NPI:174 00:00:00 00:00:00 [id number] 9 2021-10-17 2021-10-17 Outpatient [facility] [id number] [facility] 13:09:29 13:09:29 Génesisin e 2021-09-29 2021-09-29 Outpatient MIHIR STARKEY [facility] [id number] [facility] 00:00:00 00:00:00 DIPABEN 2021-09-22 2021-09-22 ambulatory STLMLC STLMLC [id number] NPI:174 00:00:00 00:00:00 [id number] 2021-09-22 2021-09-22 ambulatory STLMLC STLMLC [id number] NPI:174 00:00:00 00:00:00 [id number] 2021-09-10 2021-09-10 Office LALITO, [facility] 1.2.840.114 [id number] [facility] 13:40:43 14:43:07 Visit DIPABEN AMBULATOR 350.1.13.21 College Y 0.2.7.2.686 [id number] [facility] 315 e 2021-08-26 2021-08-26 [facility] 1.2.840.114 [id number] NPI:183 00:00:00 00:00:00 Angel HEALTH 350.1.13.10 13 [id number] CANCER 4.2.7.2.686 [place] - [phone] MDA 144 2021-07-14 2021-07-14 ambulatory STLMLC STLMLC [id number] NPI:174 00:00:00 00:00:00 [id number] 2021-07-08 2021-07-08 ambulatory STLMLC STLMLC [id number] NPI:174 00:00:00 00:00:00 [id number] 9 2021-07-03 2021-07-03 [id number]P-20 NPI:183 10:00:00 10:00:00 SAWYER [id number] 2021-07-03 2021-07-03 [id number] NPI:183 10:00:00 10:00:00 SAWYER 0702 223 8512-11-10 2021[facility]06[facility] 1.2.840.114 [id number] NPI:183 00:00:00 00:00:00 Angel HEALTH 350.1.13.10 13 [id number] CANCER 4.2.7.2.686 [facility] [phone] MDA 144 2021-05-15 2021-05-15 Outpatient STLMLC STLMLC [id number] NPI:174 00:00:00 00:00:00 [id number] 2021-05-09 2021-05-09 [facility] 1.2.840.114 [id number] NPI:183 00:00:00 00:00:00 [facility] 350.1.13.10 13 [id number] Cancer 4.2.7.2.686 [facility] [id number] [facility] 144 2021-04-16 2021-04-16 Outpatient STLMLC STLMLC [id number] NPI:174 00:00:00 00:00:00 [id number] 9 2021-04-14 2021-04-14 Outpatient STLMLC STLMLC [id number] NPI:174 00:00:00 00:00:00 [id number] 9 2021-04-14 2021-04-14 Outpatient STLMLC STLMLC [id number] NPI:174 00:00:00 00:00:00 [id number] 9 2021-04-14 2021-04-14 Outpatient STLMLC STLMLC [id number] NPI:174 00:00:00 00:00:00 [id number] 9 2021-04-11 2021-04-11 Outpatient STLMLC STLMLC [id number] NPI:174 00:00:00 00:00:00 [id number] 9 2021-04-04 2021-04-04 Outpatient Katy [facility] [id number] -20 NPI:183 10:30:00 10:30:00 NANCI [id number] 1 2021-04-04 2021-04-04 Outpatient [facility] [id number] NPI:183 10:30:00 10:30:00 NANCI [id number] 1 2021-03-31 2021-04-01 Emergency [facility] 1.2.847.698 [id number] NPI:183 19:55:00 01:41:00 Laz Sullivan 350.1.13.10 1 [id number] Martin 4.2.7.2.686 [place] [id number] 084 2021-03-21 2021-03-21 Outpatient STLMLC STLMLC [id number] NPI:174 00:00:00 00:00:00 [id number] 2021-03-21 2021-03-21 Orders Doctor ROSE 1.2.840.114 [id number] NPI:183 00:00:00 00:00:00 Only Unassigned, MICHAEL 350.1.13.[id number] [facility] 4.2.7.2.686 [id number] 009 2021-03-20 2021-03-20 Outpatient STLMLC STLMLC [id number] NPI:174 00:00:00 00:00:00 [id number] 9 2021-03-07 2021-03-07 Outpatient STLMLC STLMLC [id number] NPI:174 00:00:00 00:00:00 [id number] 9 2021-03-07 2021-03-07 Outpatient STLMLC STLMLC [id number] NPI:174 00:00:00 00:00:00 [id number] 9 2021-02-28 2021-02-28 [id number] -[id number] NPI:183 10:30:00 10:30:00 BETTYE [id number] 1 2021-02-28 2021-02-28 Outpatient Katy CORONA [facility] [id number] NPI:183 00:00:00 00:00:00 BETTYE [id number] 1 2021-02-27 2021-02-27 Outpatient STLMLC STLMLC [id number] NPI:174 00:00:00 00:00:00 [id number] 9 2021-02-27 2021-02-27 Outpatient STLMLC STLMLC [id number] NPI:174 00:00:00 00:00:00 [id number] 9 2021-02-27 2021-02-27 [facility] Maria L Montanez 1.2.840.114 [id number] NPI:183 00:00:00 00:00:00 of Anayeli Tobar 350.1.13.10 13 [id number] Jason 4.2.7.2.686 [id number] 2021-02-20 2021-02-26 [facility] Elsa Landry 1.2.840. 114 [id number] NPI:183 19:39:00 18:25:00 Encounter Jaclyn Wiggins 350.1.13.[id number] [facility] 4.2.7.2.686 Angel Khalil [id number] 096 2021-02-24 2021-02-24 Outpatient STLMLC STLMLC [id number] NPI:174 00:00:00 00:00:00 [id number] 9 2021-02-19 2021-02-19 [facility] [id number] NPI:174 00:00:00 00:00:00 [id number] 9 2021-02-17 2021-02-17 [facility] [id number] NPI:174 00:00:00 00:00:00 [id number] 9 2021-02-14 2021-02-14 [facility] 1.2.840.114 [id number] NPI:183 10:04:09 11:24:24 Visit [facility]e [facility] 350.1.13.10 [id number] [facility] 4.2.7.2.686 CENTER AT [id number] JESUSITAKarina 0[address] [place] 2021-02-14 2021-02-14 [facility] [id number] -[id number] NPI:183 10:00:00 10:00:00 [place] [id number] 1 2021-02-14 2021-02-14 Out[facility] [id number] NPI:183 10:00:00 10:00:00 [place] [id number] 1 2021-02-14 2021-02-14 Orders Doctor MILTON 1.2.840.114 [id number] NPI:183 00:00:00 00:00:00 Only Unassigned, MICHAEL 350.1.13.10 [id number] [place] [facility] 4.2.7.2.686 [id number] 009 2021-02-10 2021-02-10 Outpatient R [facility] [id number] -20 NPI:183 14:00:00 14:00:00 [id number] 1 2021-02-10 2021-02-10 Outpatient R [facility] [id number] NPI:183 14:00:00 14:00:00 [id number] 1 2021-01-20 2021-01-20 Transition Maria L Montanez 1.2.840.114 [id number] NPI:183 00:00:00 00:00:00 of Care Niya Tobar 350.1.13.10 13 [id number] [place] 4.2.7.2.686 [id number] 403 2021-01-01 2021-01-01 Outpatient STLMLC STLMLC [id number] NPI:174 00:00:00 00:00:00 [id number] 9 2020-12-23 2020-12-23 Outpatient STLMLC STLMLC [id number] NPI:174 00:00:00 00:00:00 [id number] 9 2020-12-02 2020-12-02 Outpatient STLMLC STLMLC [id number] NPI:174 00:00:00 00:00:00 [id number] 9 2020-11-07 2020-11-07 [facility], 1.2.840.1 [id number] [id number] Methodi 13:30:00 23:59:00 Encounter Arvind 47268.1.[address] [place] 3.430.2.7 Hospit a .3.554398 l .8 2020-11-07 2020-11-07 Travel 1.2.840.1 1.2.747.054 [id number] Methodi 00:00:00 00:00:[address] 3.430.2.7 0.2.7.3.698 Ho spita .3.154315 084.8 l .8 2020-10-18 2020-10-18 Travel 1.2.840.1 1.2.304.966 2627 [id number] Methodi 00:00:00 00:00:[address] 3.430.2.7 0.2.7.3.698 Ho spita .3.794738 084.8 l .8 2020-10-15 2020-10-15 Outpatient STLMLC STLMLC [id number] NPI:174 00:00:00 00:00:00 [id number] 9 2020-10-15 2020-10-15 [facility] 1.2.840.1 [id number] Methodi 00:00:00 00:00:00 Orders Arvind 36563.1.[address] [place] 3.430.2.7 [facility] .[facility].122257 l .8 2020-09-25 2020-09-25 Outpatient STLMLC STLMLC [id number] NPI:174 00:00:00 00:00:00 [id number] 9 2020-09-23 2020-09-23 Outpatient STLMLC STLMLC [id number] NPI:174 00:00:00 00:00:00 [id number] 9 2020-08-23 2020-08-23 Outpatient STLMLC STLMLC [id number] NPI:174 00:00:00 00:00:00 [id number] 9 2020-08-20 2020-08-20 Outpatient STLMLC STLMLC [id number] NPI:174 00:00:00 00:00:00 [id number] 9 2020-08-14 2020-08-14 Outpatient STLMLC STLMLC [id number] NPI:174 00:00:00 00:00:00 [id number] 9 2020-08-12 2020-08-12 Outpatient STLMLC STLMLC [id number] NPI:174 00:00:00 00:00:00 [id number] 9 2020-08-09 2020-08-09 Outpatient STLMLC STLMLC [id number] NPI:174 00:00:00 00:00:00 [id number] 9 2020-03-22 2020-03-22 [facility] [id number] NPI:174 08:45:00 08:45:[address] [facility] Medicine Medicine 2020-03-08 2020-03-08 Out[facility] 31 [id number] NPI:174 10:26:00 10:26:[address] [facility] Medicine Medicine 2020-03-05 2020-03-05 Out[facility] 31 [id number] NPI:174 16:14:00 16:14:[address] [facility] Medicine Medicine 2020-03-01 2020-03-01 Outpatient [facility] 30 [id number] NPI:174 10:00:00 10:00:[address] [facility] Medicine Medicine 2020-03-01 2020-03-01 Outpatient [facility] 30 [id number] NPI:174 10:00:00 10:00:00 t Pressi [address] [facility] Medicine 2020-01-10 2020-01-10 Outpatient [facility] 31 [id number] NPI:174 13:52:00 13:52:00 t Specialty/U 04 38178 Specialty rology /Urology Clinic Clinic 2019-12-28 2019-12-28 Out[facility] 30 [id number] NPI:174 13:15:00 13:15:00 t Specialty/U 04 25874 Specialty rology /Urology Clinic Clinic 2019-11-16 2019-11-16 Out[facility] 30 [id number] NPI:174 15:00:00 15:00:00 t Specialty/U 04 07897 Specialty rology /Urology Clinic Clinic 2019-10-20 2019-10-20 Outpatient [facility] 30 [id number] NPI:174 10:09:00 10:09:00 t Specialty/U 04 42702 Specialty rology /Urology Clinic Clinic 2019-10-18 2019-10-18 Outpatient [facility] 30 [id number] NPI:174 08:30:00 08:30:00 t Specialty/U 04 18845 Specialty rology /Urology Clinic Clinic 2019-10-17 2019-10-17 Outpatient [facility] 29 [id number] NPI:174 15:00:00 15:00:00 t [address] [facility] 2019-10-13 2019-10-13 Out[facility] 29 [id number] NPI:174 15:13:00 15:13:00 t Pressi [address] [facility] 2019-10-02 2019-10-02 Outpatient Rajinder JORDICL OUTD [id number] 0-20 [facility] 23:54:00 23:54:00 Trever [facility] 2019-09-18 2019-09-18 Outpatient Calvillo JORDIPM RADI [id number] 0-20 [facility] 09:00:00 09:00:00 Trever [id number] [facility] 2019-09-15 2019-09-15 [facility] 29 [id number] NPI:174 09:00:00 09:00:00 t [address] [facility] Medicine 2019-08-10 2019-08-10 Out[facility] 29 [id number] NPI:174 11:32:00 11:32:00 t [address] [facility] Medicine 2019-07-17 2019-07-17 Outpatient [facility] 28 [id number] NPI:174 16:43:00 16:43:00 t [address] [facility] Medicine 2019-06-21 2019-06-21 Outpatient [facility] 28 [id number] NPI:174 11:12:00 11:12:00 t [address] [facility] Medicine 2019-06-19 2019-06-19 Out[facility] 28 [id number] NPI:174 14:00:00 14:00:00 t [address] [facility] Medicine 2019-06-12 2019-06-12 Out[facility] 28 [id number] NPI:174 15:55:00 15:55:00 t [address] [facility] Medicine 2019-06-01 2019-06-01 Outpatient [facility] 28 [id number] NPI:174 13:44:00 13:44:00 t [address] [facility] Medicine 2019-05-24 2019-05-24 Outpatient [facility] 28 [id number] NPI:174 13:44:00 13:44:00 t [employer] [address] [facility] Medicine 2019-05-18 2019-05-18 Outpatient [facility] 27 [id number] NPI:174 10:50:00 10:50:00 t [address] [facility] Medicine 2019-05-01 2019-05-01 Outpatient [facility] 27 [id number] NPI:174 15:00:00 15:00:00 t [address] [facility] Medicine 2019-04-14 2019-04-14 Outpatient [facility] 27 [id number] NPI:174 16:09:00 16:09:00 t [address] [employer] [address] [facility] Medicine 2019-03-08 2019-03-08 [facility] 1.2.840.114 [id number] 00:00:00 00:00:00 [facility] 350.1.13.10 [facility] 4.2.7.2.686 [id number] 2019-03-08 2019-03-[address]114 70 [id number] NPI:183 00:00:00 00:00:00 TaraKarina [facility] 350.1.13.10 1 [id number] [facility] 4.2.7.2.686 [id number] [facility] 2019-03-07 2019-03-07 [facility] 1.2.916.841 [id number] 00:00:00 00:00:00 Management [facility] 350.1.13.10 [facility] 4.2.7.2.686 [id number] 08 2019-03-07 2019-03-07 [facility] [place] [address].2.117.161 [id number] NPI:183 00:00:00 00:00:00 Management [facility] 350.1.13.10 [id number] [facility] 4.2.7.2.686 [id number] [facility] 2019-03-01 2019-03-01 Outpatient [facility] 26 [id number] NPI:174 13:52:00 13:52:[address] Medicine Medicine 2019-02-23 2019-02-23 [place] [address]57.2.840.114 705 [id number] 16:56:13 23:59:00 Encounter Madelyn [facility] 350.1.13.10 [facility] 4.2.7.2.686 [id number] [facility] 2019-02-23 2019-02-[address]840[address]114 705 84571 NPI:183 16:56:13 23:59:00 Encounter [facility] 350.1.13.10 [id number] [facility] 4.2.7.2.686 [id number] 2019-02-23 2019-02-[address]108[address]649 9571 6906 15:34:50 18:38:56 Visit Karina Pacheco [facility] 350.1.13.10 [facility] 4.2.7.2.686 [id number] 084 2019-02-23 2019-02-23 Office Enoch Cabrera [facility] 1.2 .840.114 [id number] NPI:183 15:34:50 18:38:56 Visit Madelyn Rao [place] [address].1. 13.10 [id number] [facility] 4.2.7.2.686 [id number] 084 2019-02-23 2019-02-23 Floor Coverings [facility] 1.2.840.114 [id number] NPI:183 16:32:11 16:43:54 Visit Madelyn Rao [facility] 350.1. 13.10 [id number] [facility] 4.2.7.2.686 [id number] 316 2018-12-01 2018-12-01 Out[facility] 25 [id number] NPI:174 10:52:00 10:52:[address] [place] [address] 2018-11-29 2018-11-29 [facility] 25 [id number] NPI:174 14:45:00 14:45:[address] [place] [address] 2018-09-28 2018-09-28 Out[facility] 24 [id number] NPI:174 10:43:00 10:43:[address] [employer] [address] [place] [address] Medicine 2018-08-16 2018-08-16 Out[facility] 23 [id number] NPI:174 12:06:00 12:06:00 [employer] [address] [place] [address] Medicine 2018-07-25 2018-07-25 Outpatient [facility] 23 [id number] NPI:174 10:56:00 10:56:[address] [employer] [address] [place] [address] Medicine 2018-07-22 2018-07-22 Out[facility] 23 [id number] NPI:174 01:11:00 01:11:[address] [employer] [address] [place] [address] Medicine 2018-07-20 2018-07-20 Out[facility] 21 [id number] NPI:174 13:00:00 13:00:[address] 2018-07-19 2018-07-19 Out[facility] 23 [id number] NPI:174 14:38:00 14:38:[address] 2018-07-15 2018-07-15 Out[facility] 23 [id number] NPI:174 16:01:00 16:01:[address] 2018-07-14 2018-07-14 [facility] [id number] NPI:174 15:35:00 15:35:[address] 2018-04-21 2018-04-21 [facility] [id number] NPI:174 09:04:00 09:04:[address] 2018-04-20 2018-04-20 [facility] [id number] NPI:174 22:17:00 22:17:[address] 2018-04-20 2018-04-20 [facility] 15 [id number] NPI:174 14:30:00 14:30:[address] Results Test Description Test Time Test Comments Results Result Comments Source URINALYSIS 2021-04-01 03:04:09 Test Item Value Reference Range Interpretation Comme nts APPEARANCE (test code = Clear Clear 6711322542) COLOR (test code = 2406945132) Yellow Yellow PH (test code = 7636031373) 4.8-8.0 SP GRAVITY (test code = 1.003-1.030 2628996139) GLU U QUAL (test code = Normal Normal 8819803921) BLOOD (test code = 1109222119) Negative Negative Interference from ascorbic acid may cause false negative results. KETONES (test code = Negative Negative 9201717965) PROTEIN (test code = 2887-8) Negative Negative UROBILIN (test code = 2.0 mg/dL Normal A 3129359544) BILIRUBIN (test code = Negative Negative 0756593685) NITRITE (test code = Negative Negative 1770541498) LEUK MIGDALIA (test code = Negative Negative 3313526761) RBC/HPF (test code = See_Comment H [Autom ated message] The 2355462720) system which ge nerated this result transmit elaine reference range: 0 - 3 HP F. The reference range was not used to interpret th is result as normal/abnormal . WBC/HPF (test code = See_Comment [Autom ated message] The 1484224550) system which ge nerated this result transmit elaine reference range: 0 - 5 HP F. The reference range was not used to interpret th is result as normal/abnormal . BACTERIA (test code = Few Negative A 7982234772) MUCOUS (test code = 5447683295) Slight Negative LPF A SQ EPITH (test code = HPF 4009482974) HYAL CAST (test code = See_Comment H [Aut omated message] The 7324901646) system which ge nerated this result transmit elaine reference range: <=2 LPF. The reference range was not u sed to interpret this result as normal/abnormal . GRAN CASTS (test code = See_Comment H [Au tomated message] The 7397055555) system which ge nerated this result transmit elaine reference range: <=1 LPF. The reference range was not u sed to interpret this result as normal/abnormal . Lab Interpretation (test code = Abnormal 59273-0) NPI:[id number] 03:04:09 Test Item Value Reference Range Interpretation Comments APPEARANCE (test code = Clear Clear 9892909727) COLOR (test code = Yellow Yellow 2604280673) PH (test code = 4.8-8.0 6184616724) SP GRAVITY (test code = 1.003-1.030 5345078874) GLU U QUAL (test code = Normal Normal 1759699438) BLOOD (test code = Negative Negative 3931009353) KETONES (test code = Negative Negative 5548301382) PROTEIN (test code = Negative Negative 2887-8) UROBILIN (test code = 2.0 mg/dL Normal A 6653514583) BILIRUBIN (test code = Negative Negative 5480166608) NITRITE (test code = Negative Negative 6077440823) LEUK MIGDALIA (test code = Negative Negative 5120793332) RBC/HPF (test code = See_Comment H [Autom ated message] 0100071542) The system Mobill[employer] generated this result transmit elaine reference range : 0 - 3 HPF. The refe rence range was not u sed to interpret th is result as normal/abnormal . WBC/HPF (test code = See_Comment [Autom ated message] 6195997335) The system [employer] generated this result transmit elaine reference range : 0 - 5 HPF. The refe rence range was not u sed to interpret th is result as normal/abnormal . BACTERIA (test code = Few Negative A 4064158861) MUCOUS (test code = Slight Negative LPF A 4638747838) SQ EPITH (test code = HPF 1291541467) HYAL CAST (test code = See_Comment H [Aut omated message] 3521657935) The system Mobill[employer] generated this result transmit elaine reference range : <=2 LPF. The refere nce range was not u sed to interpret th is result as normal/abnormal . GRAN CASTS (test code = See_Comment H [Au tomated message] 6184935205) The system [employer] generated this result transmit elaine reference range : <=1 LPF. The refere nce range was not u sed to interpret th is result as normal/abnormal . Lab Interpretation (test Abnormal code = 57536-6) NPI:[id number] [id number] 02:31:36 Test Item Value Reference Interpretation Comments Range TROPONIN I (test 0.003 ng/mL See_Comment [Automated code = 1163163268) message] The system which generated this result [...] biotin. Lab Interpretation Normal (test code = 97596-8) NPI:[id number] [id number] 02:31:36 Test Item Value Reference Range Interpretation Comments TROPONIN I (test code = 0.003 ng/mL See_Comment [Au tomated 6955396306) message] The sy stem which generated this result transmitted reference range : <=0.034. The reference range was not used to interpret this result as normal/abnormal . ANU (test code = ANU) Lab Interpretation Normal (test code = 65368-2) NPI:[id number] 02:28:37 Test Item Value Reference Range Interpretation Comments NT-proBNP (test code 231 pg/mL See_Comment H [Autom ated = 2264730085) message] The system which generated this result transmitted reference range : <=125. The reference range was not used to interpret this result as normal/abnormal . ANU (test code = ANU) Biotin has been reported to cause a negative bias, interpret results relative to patient's use of biotin. Lab Interpretation Abnormal (test code = 56318-3) NPI:[id number] 02:28:37 Test Item Value Reference Range Interpretation Comments NT-proBNP (test code = 231 pg/mL See_Comment H [Aut omated message] 7084773478) The system [employer] h generated this result transmit elaine reference range : <=125. The refe rence range was not u sed to interpret th is result as normal/abnormal . ANU (test code = ANU) Lab Interpretation (test Abnormal code = 03779-1) NPI:[id number] PARTIAL THRMPLAS [id number] 02:26:55 Test Item Value Reference Range Interpretation Comments APTT Patient (test See_Comment [Automat ed code = 3173-2) message] The system which generated this result transmitted reference range : 23 - 38 Seconds . The reference range was not used to interpr et this result as normal/abnormal . ANU (test code = ANU) The [facility] patient population mean normal value for aPTT is 30 seconds. Lab Interpretation Normal (test code = 89236-2) NPI:[id number] PARTIAL THRMPLAS [id number] 02:26:55 Test Item Value Reference Range Interpretation Comments APTT Patient (test code = See_Comment [ Automated message] 3173-2) The system [employer] h generated this result transmitted ref erence range: 23 - 38 Seconds. The re ference range was not u sed to interpret this result as normal/abnor mal. ANU (test code = ANU) Lab Interpretation (test Normal code = 82428-6) NPI:[id number] TIME / [id number] 02:24:54 Test Item Value Reference Range Interpretation Comments PROTIME PATIENT (test See_Comment [Auto mated message] code = 5964-2) The system [employer] generated this result transmitted ref erence range: 12.0 - 1 4.7 Seconds. The re ference range was not u sed to interpret this result as normal/abnor mal. INR (test code = 6301-6) Nor mal INR <1.1; Warfarin Therap eutic range 2.0 to 3. 0 or 2.5 to 3.5, dep ending upon the indica tions. Lab Interpretation (test Normal code = 79920-3) NPI:[id number] TIME / [id number] 02:24:54 Test Item Value Reference Range Interpretation Comments PROTIME PATIENT (test See_Comment [Auto mated message] code = 5964-2) The system [employer] generated this result transmitted ref erence range: 12.0 - 1 4.7 Seconds. The re ference range was not u sed to interpret this result as normal/abnor mal. INR (test code = 6301-6) Lab Interpretation (test Normal code = 49563-2) NPI:[id number]. METABOLIC PANEL (90352)2021-04-01 02:20:56 Test Item Value Reference Range Interpretation Comments NA (test code = 139 mmol/L 135-145 2284221360) K (test code = 3.6 mmol/L 3.5-5.0 3682779168) CL (test code = 98 mmol/L 98-108 4094676406) CO2 TOTAL (test code = 29 mmol/L - 0356041886) AGAP (test code = 2-16 0712888326) BUN (test code = 17 mg/dL 7-23 9749201489) GLUCOSE (test code = 241 mg/dL 70-110 H 7526095731) CREATININE (test code = 0.98 mg/dL 0.60-1.25 9385019493) TOTAL BILI (test code = 0.5 mg/dL 0.1-1.8 9152116233) CALCIUM (test code = 9.5 mg/dL 8.6-10.6 4243325587) T PROTEIN (test code = 8.9 g/dL 6.3-8.2 H 6283048002) ALBUMIN (test code = 4.6 g/dL 3.5-5.0 4680050368) ALK PHOS (test code = 124 U/L 34-122 H 9562698926) ALTv (test code = 26 U/L 5-50 2-6) AST(SGOT) (test code = 39 U/L 13-40 5482330914) eGFR (test code = mL/min/1.73m2 7022353244) ANU (test code = ANU) Association of [...] tests). Lab Interpretation Abnormal (test code = 29666-9) NPI:[id number]. METABOLIC PANEL (51213)2021-04-01 02:20:56 Test Item Value Reference Range Interpretation Comments NA (test code = 3608689884) 139 mmol/L 135-145 K (test code = 5116920151) 3.6 mmol/L 3.5-5.0 CL (test code = 8328528736) 98 mmol/L 98-108 CO2 TOTAL (test code = 7834000743) 29 mmol/L 23-31 AGAP (test code = 7453578365) 2-16 BUN (test code = 3240488525) 17 mg/dL 7-23 GLUCOSE (test code = 5493959228) 241 mg/dL 70-110 H CREATININE (test code = 0.98 mg/dL 0.60-1.25 4652084229) TOTAL BILI (test code = 0.5 mg/dL 0.1-1.4 6494346694) CALCIUM (test code = 7208774696) 9.5 mg/dL 8.6-10.6 T PROTEIN (test code = 4448096106) 8.9 g/dL 6.3-8.2 H ALBUMIN (test code = 6504209735) 4.6 g/dL 3.5-5.0 ALK PHOS (test code = 5901326982) 124 U/L 34-122 H ALTv (test code = 1742-6) 26 U/L 5-50 AST(SGOT) (test code = 5885870084) 39 U/L 13-40 eGFR (test code = 1599064937) mL/min/1.73m2 ANU (test code = ANU) Lab Interpretation (test code = Abnormal 51162-0) NPI:[id number] 02:20:14 Test Item Value Reference Range Interpretation Comments LIPASE (test code = 8576011059) 74 U/L 0-220 Lab Interpretation (test code = Normal 60085-2) NPI:[id number] (ID NOW RAPID TESTING)2021-04-01 02:20:14 Test Item Value Reference Range Interpretation Comments SARS-CoV-2 Rapid ID NOW Not Detected Not Detected (test code = 74541-0) ANU (test code = ANU) ID NOW COVID-19 Assay is an isothermal nucleic acid amplification test intended for the qualitative detection of nucleic acid from SARS-CoV-2 viral RNA in nasopharyngeal ([employer]) specimens. It is used under Emergency Use [...] indicated. Lab Interpretation Normal (test code = 85908-3) NPI:[id number] 02:20:14 Test Item Value Reference Range Interpretation Comments LIPASE (test code = 9187165283) 74 U/L 0-220 Lab Interpretation (test code = Normal 97291-4) NPI:[id number] (ID NOW RAPID TESTING)2021-04-01 02:20:14 Test Item Value Reference Range Interpretation Comments SARS-CoV-2 Rapid ID NOW (test Not Detected Not Detected code = 47857-8) ANU (test code = ANU) Lab Interpretation (test code = Normal 11137-8) NPI:[id number] HEAD WO [id number] 02:13:29No acute findings. HISTORY:Mental status change, unknown [...] extracranial tissues demonstrate no acute findings.IMPRESSIONNo acute findings.NPI:[id number] HEAD WO [id number] 02:13:29No acute findings. HISTORY:Mental status change, unknown [...] extracranial tissues demonstrate no acute findings.IMPRESSIONNo acute findings.NPI:[id number] WITH [id number] 02:05:52 Test Item Value Reference Range Interpretation Comments WBC (test code = See_Comment [Automated 9527-2) message] The sy stem which generated this result transmitted reference range : 4.20 - 10.70 10*3/?L. The reference range was not used to interpret this result as normal/abnormal . RBC (test code = See_Comment L [Automated 601-8) message] The sy stem which generated this [...] RDW-SD (test code = 44.7 fL 38.5-51.6 87481-7) RDW-CV (test code = 13.2 % 12.1-15.4 788-0) PLT (test code = See_Comment [Automated 777-3) message] The sy stem which generated this result transmitted reference range : 150 - 328 10*3/ ?L. The reference r dustin was not used to interpret this result as normal/abnormal . MPV (test code = 10.3 fL 9.8-13.0 88040-1) NRBC/100 WBC (test See_Comment [Automat ed code = 9998682569) message] The system which generated this result transmitted reference range : 0.0 - 10.0 /100 WBCs. The refer ence range was not u sed to interpret th is result as normal/abnormal . NRBC x10^3 (test code <0.01 See_Comment [Auto mated = 9869708119) message] The s ystem which generated this result transmitted reference range : 10*3/?L. The reference range was not used to interpret this result as normal/abnormal . GRAN MAT (NEUT) % 54.9 % (test code = 770-8) IMM GRAN % (test code 0.20 % = 0153723943) LYMPH % (test code = 34.3 % 736-9) MONO % (test code = 7.0 % 5905-5) EOS % (test code = 3.0 % 713-8) BASO % (test code = 0.6 % 706-2) GRAN MAT x10^3(ANC) 4.59 10*3/uL 1.99-6.95 (test code = 8318221772) IMM GRAN x10^3 (test <0.03 0.00-0.06 code = 3926903859) LYMPH x10^3 (test code 2.87 10*3/uL 1.09-3.23 = 731-0) MONO x10^3 (test code 0.59 10*3/uL 0.36-1.02 = 742-7) EOS x10^3 (test code = 0.25 10*3/uL 0.06-0.53 711-2) BASO x10^3 (test code 0.05 10*3/uL 0.01-0.09 = 704-7) Lab Interpretation Abnormal (test code = 56961-1) NPI:[id number] WITH [id number] 02:05:52 Test Item Value Reference Range Interpretation [...] RDW-SD (test code = 44.7 fL 38.5-51.6 05334-8) RDW-CV (test code = 13.2 % 12.1-15.4 788-0) PLT (test code = See_Comment [Automated 777-3) message] The sy stem which generated this result transmitted reference range : 150 - 328 10*3/ ?L. The reference r dustin was not used to interpret this result as normal/abnormal . MPV (test code = 10.3 fL 9.8-13.0 35073-4) NRBC/100 WBC (test See_Comment [Automat ed code = 4480332945) message] The system which generated this result transmitted reference range : 0.0 - 10.0 /100 WBCs. The refer ence range was not u sed to interpret th is result as normal/abnormal . NRBC x10^3 (test code <0.01 See_Comment [Auto mated = 8138560663) message] The s ystem which generated this result transmitted reference range : 10*3/?L. The reference range was not used to interpret this result as normal/abnormal . GRAN MAT (NEUT) % 54.9 % (test code = 770-8) IMM GRAN % (test code 0.20 % = 3858754106) LYMPH % (test code = 34.3 % 736-9) MONO % (test code = 7.0 % 5905-5) EOS % (test code = 3.0 % 713-8) BASO % (test code = 0.6 % 706-2) GRAN MAT x10^3(ANC) 4.59 10*3/uL 1.99-6.95 (test code = 3667026500) IMM GRAN x10^3 (test <0.03 0.00-0.06 code = 5697822161) LYMPH x10^3 (test code 2.87 10*3/uL 1.09-3.23 = 731-0) MONO x10^3 (test code 0.59 10*3/uL 0.36-1.02 = 742-7) EOS x10^3 (test code = 0.25 10*3/uL 0.06-0.53 711-2) BASO x10^3 (test code 0.05 10*3/uL 0.01-0.09 = 704-7) Lab Interpretation Abnormal (test code = 61568-1) NPI:[id number] PANEL 21 + LACTIC [id number] 01:48:54 Test Item Value Reference Range Interpretation Comments PH (test code = 7.32-7.42 9218685467) PCO2 TAJ (test code = See_Comment H [Auto mated 2622444385) message] The sy stem which generated this result transmitted reference range : 41 - 51 mmHg. The reference range was not used to interpret this result as normal/abnormal . PO2 TAJ (test code = See_Comment [Autom ated 8896263468) message] The sy stem which generated this result transmitted reference range : 25 - 40 mmHg. The reference range was not used to interpret this result as normal/abnormal . HCO3 TAJ (test code = See_Comment [Auto mated 8269744770) message] The sy stem which generated this result transmitted reference range : 24 - 28 mEq/L. The reference range was not used to interpret this result as normal/abnormal . AC VBE(BEAKER) (test mEq/L code = 8058447079) THB TAJ (test code = 11.2 g/dL 13.5-18.0 L 2042090905) %O2HB TAJ (test code = 51.0 % 52.0-63.0 L 7760846585) %COHB TAJ (test code = 1.1 % 0.0-1.5 7388862787) %METHB TAJ (test code = 0.3 % 0.4-1.5 L 0627788544) VOL%O2 TAJ (test code = 8.0 % 6.0-12.0 6442625153) NA (test code = 138 mmol/L 135-145 5310871289) K+ (test code = 3.7 mmol/L 3.5-5.0 2408976271) AC CA IONZ (test code = 4.60 mg/dL 4.50-5.30 6217756317) GLUCOSE (test code = 236 mg/dL 70-110 H 4534534526) LACTIC ACID (test code 2.61 mmol/L 0.50-2.20 H = 2071198316) Lab Interpretation Abnormal (test code = 62799-3) NPI:[id number] PANEL 21 + LACTIC [id number] 01:48:54 Test Item Value Reference Range Interpretation Comments PH (test code = 7.32-7.42 1382264198) PCO2 TAJ (test code = See_Comment H [Auto mated 0025411467) message] The sy stem which generated this result transmitted reference range : 41 - 51 mmHg. The reference range was not used to interpret this result as normal/abnormal . PO2 TAJ (test code = See_Comment [Autom ated 7993879624) message] The sy stem which generated this result transmitted reference range : 25 - 40 mmHg. The reference range was not used to interpret this result as normal/abnormal . HCO3 TAJ (test code = See_Comment [Auto mated 4806048824) message] The sy stem which generated this result transmitted reference range : 24 - 28 mEq/L. The reference range was not used to interpret this result as normal/abnormal . AC VBE(BEAKER) (test mEq/L code = 1061037119) THB TAJ (test code = 11.2 g/dL 13.5-18.0 L 4648887319) %O2HB TAJ (test code = 51.0 % 52.0-63.0 L 0127383005) %COHB TJA (test code = 1.1 % 0.0-1.5 0011928623) %METHB TAJ (test code = 0.3 % 0.4-1.5 L 6202049676) VOL%O2 TAJ (test code = 8.0 % 6.0-12.0 0742970782) NA (test code = 138 mmol/L 135-145 3239903649) K+ (test code = 3.7 mmol/L 3.5-5.0 4308939582) AC CA IONZ (test code = 4.60 mg/dL 4.50-5.30 4514748716) GLUCOSE (test code = 236 mg/dL 70-110 H 7737210985) LACTIC ACID (test code 2.61 mmol/L 0.50-2.20 H = 1543793138) Lab Interpretation Abnormal (test code = 19615-6) NPI:[id number] GLUCOSE (AUTOMATED)2021-02-26 22:12:16 Test Item Value Reference Range Interpretation Comments POCT GLU (test code = 3994491477) 187 mg/dL 70-110 H Lab Interpretation (test code = Abnormal 51563-8) NPI:[id number] GLUCOSE (AUTOMATED)2021-02-26 17:17:18 Test Item Value Reference Range Interpretation Comments POCT GLU (test code = 9619296753) 189 mg/dL 70-110 H Lab Interpretation (test code = Abnormal 67872-0) NPI:[id number] GLUCOSE (AUTOMATED)2021-02-26 13:53:52 Test Item Value Reference Range Interpretation Comments POCT GLU (test code = 8055115598) 132 mg/dL 70-110 H Lab Interpretation (test code = Abnormal 21174-6) NPI:[id number] METABOLIC PANEL (NA, K, CL, CO2, GLUCOSE, BUN, CREATININE, CA)2021-02-26 11:27:38 Test Item Value Reference Range Interpretation Comments NA (test code = 142 mmol/L 135-145 0538101452) K (test code = 4.0 mmol/L 3.5-5.0 8083967188) CL (test code = 106 mmol/L 98-108 9727738789) CO2 TOTAL (test code = 25 mmol/L 23-31 9200531249) AGAP (test code = 2-16 6086027971) BUN (test code = 13 mg/dL 7-23 4073888899) GLUCOSE (test code = 129 mg/dL 70-110 H 7828900716) CREATININE (test code = 0.97 mg/dL 0.60-1.25 2491340199) CALCIUM (test code = 9.3 mg/dL 8.6-10.6 2156829540) eGFR (test code = mL/min/1.73m2 8192198182) ANU (test code = ANU) Association of [...] tests). Lab Interpretation Abnormal (test code = 17258-7) NPI:[id number] WITH [id number] 10:55:37 Test Item Value Reference Range Interpretation [...] RDW-SD (test code = 42.0 fL 38.5-51.6 45426-5) RDW-CV (test code = 12.7 % 12.1-15.4 788-0) PLT (test code = See_Comment [Automated 777-3) message] The sy stem which generated this result transmitted reference range : 150 - 328 10*3/ ?L. The reference r dustin was not used to interpret this result as normal/abnormal . MPV (test code = 9.5 fL 9.8-13.0 L 29975-0) NRBC/100 WBC (test See_Comment [Automat ed code = 3615149100) message] The system which generated this result transmitted reference range : 0.0 - 10.0 /100 WBCs. The refer ence range was not u sed to interpret th is result as normal/abnormal . NRBC x10^3 (test code <0.01 See_Comment [Auto mated = 4865412971) message] The s ystem which generated this result transmitted reference range : 10*3/?L. The reference range was not used to interpret this result as normal/abnormal . GRAN MAT (NEUT) % 59.7 % (test code = 770-8) IMM GRAN % (test code 0.50 % = 2787601911) LYMPH % (test code = 30.1 % 736-9) MONO % (test code = 6.8 % 5905-5) EOS % (test code = 2.3 % 713-8) BASO % (test code = 0.6 % 706-2) GRAN MAT x10^3(ANC) 5.13 10*3/uL 1.99-6.95 (test code = 7985623861) IMM GRAN x10^3 (test 0.04 10*3/uL 0.00-0.06 code = 0762543702) LYMPH x10^3 (test code 2.58 10*3/uL 1.09-3.23 = 731-0) MONO x10^3 (test code 0.58 10*3/uL 0.36-1.02 = 742-7) EOS x10^3 (test code = 0.20 10*3/uL 0.06-0.53 711-2) BASO x10^3 (test code 0.05 10*3/uL 0.01-0.09 = 704-7) Lab Interpretation Abnormal (test code = 42148-7) NPI:[id number] GLUCOSE (AUTOMATED)2021-02-26 02:24:21 Test Item Value Reference Range Interpretation Comments POCT GLU (test code = 6914367999) 226 mg/dL 70-110 H Lab Interpretation (test code = Abnormal 27154-9) NPI:[id number] Culture - Peripheral # 02:01:55 Test Item Value Reference Range Interpretation Comments Blood Culture-Aerobic No organisms No growth Previo us (test code = 66469-1) isolated prelim inary verified result was Culture [...] Culture-Anaerobic isolated preliminar y (test code = 45719-7) verifi ed result was Culture In Progress on 02/21/2021 at 00 01 CDTPrevious preliminary verified result was No growth a t 24 hours on 02/21/2021 at 21 CDTPrevious preliminary verified result was No growth a t 48 hours on 02/22/2021 at 21 CDTPrevious preliminary verified result was No growth a t 72 hours on 02/23/2021 at 21 CDT Lab Interpretation Normal (test code = 97052-0) NPI:[id number] Culture - Peripheral # [id number] 02:01:55 Test Item Value Reference Range Interpretation Comments Blood Culture-Aerobic No organisms No growth Previo us (test code = 00353-2) isolated prelim inary verified result was Culture [...] Culture-Anaerobic isolated preliminar y (test code = 28103-6) verifi ed result was Culture In Progress [...] CDT Lab Interpretation Normal (test code = 16493-2) NPI:[id number] GLUCOSE (AUTOMATED)2021-02-25 21:54:18 Test Item Value Reference Range Interpretation Comments POCT GLU (test code = 2513518721) 254 mg/dL 70-110 H Lab Interpretation (test code = Abnormal 75315-5) NPI:[id number] GLUCOSE (AUTOMATED)2021-02-25 16:06:47 Test Item Value Reference Range Interpretation Comments POCT GLU (test code = 5803766723) 178 mg/dL 70-110 H Lab Interpretation (test code = Abnormal 55742-5) NPI:[id number] GLUCOSE (AUTOMATED)2021-02-25 12:41:08 Test Item Value Reference Range Interpretation Comments POCT GLU (test code = 4218483402) 141 mg/dL 70-110 H Lab Interpretation (test code = Abnormal 77656-6) NPI:[id number] METABOLIC PANEL (NA, K, CL, CO2, GLUCOSE, BUN, CREATININE, CA)2021-02-25 09:30:31 Test Item Value Reference Range Interpretation Comments NA (test code = 140 mmol/L 135-145 1849738262) K (test code = 3.7 mmol/L 3.5-5.0 5843295782) CL (test code = 104 mmol/L 98-108 9542172714) CO2 TOTAL (test code = 27 mmol/L 23-31 1652353243) AGAP (test code = 2-16 2605361664) BUN (test code = 9 mg/dL 7-23 9570370175) GLUCOSE (test code = 143 mg/dL 70-110 H 1772578502) CREATININE (test code = 0.69 mg/dL 0.60-1.25 3542101634) CALCIUM (test code = 9.4 mg/dL 8.6-10.6 7503913068) eGFR (test code = mL/min/1.73m2 9417609892) ANU (test code = ANU) Association of [...] tests). Lab Interpretation Abnormal (test code = 34878-8) NPI:[id number] WITH [id number] 09:12:53 Test Item Value Reference Range Interpretation Comments WBC (test code = See_Comment [Automated 2190-2) message] The sy stem which generated this result transmitted reference range : 4.20 - 10.70 10*3/?L. The reference range was not used to interpret this result as normal/abnormal . RBC (test code = See_Comment L [Automated 359-8) message] The sy stem which generated this [...] RDW-SD (test code = 42.1 fL 38.5-51.6 81632-1) RDW-CV (test code = 12.7 % 12.1-15.4 788-0) PLT (test code = See_Comment L [Automated 777-3) message] The sy stem which generated this result transmitted reference range : 150 - 328 10*3/ ?L. The reference r dustin was not used to interpret this result as normal/abnormal . MPV (test code = 10.3 fL 9.8-13.0 77120-7) NRBC/100 WBC (test See_Comment [Automat ed code = 7184925017) message] The system which generated this result transmitted reference range : 0.0 - 10.0 /100 WBCs. The refer ence range was not u sed to interpret th is result as normal/abnormal . NRBC x10^3 (test code <0.01 See_Comment [Auto mated = 3082983025) message] The s ystem which generated this result transmitted reference range : 10*3/?L. The reference range was not used to interpret this result as normal/abnormal . GRAN MAT (NEUT) % 48.6 % (test code = 770-8) IMM GRAN % (test code 0.30 % = 6668127421) LYMPH % (test code = 38.6 % 736-9) MONO % (test code = 9.2 % 5905-5) EOS % (test code = 2.7 % 713-8) BASO % (test code = 0.6 % 706-2) GRAN MAT x10^3(ANC) 3.23 10*3/uL 1.99-6.95 (test code = 3121077294) IMM GRAN x10^3 (test <0.03 0.00-0.06 code = 0656503503) LYMPH x10^3 (test code 2.56 10*3/uL 1.09-3.23 = 731-0) MONO x10^3 (test code 0.61 10*3/uL 0.36-1.02 = 742-7) EOS x10^3 (test code = 0.18 10*3/uL 0.06-0.53 711-2) BASO x10^3 (test code 0.04 10*3/uL 0.01-0.09 = 704-7) Lab Interpretation Abnormal (test code = 39947-5) NPI:[id number] GLUCOSE (AUTOMATED)2021-02-25 02:15:28 Test Item Value Reference Range Interpretation Comments POCT GLU (test code = 204 mg/dL 70-110 H Notifi ed Provider 3971283460) Lab Interpretation (test Abnormal code = 28772-6) NPI:[id number] HEMOGLOBIN (A1C)2021-02-25 00:03:48 Test Item Value Reference Range Interpretation Comments HGB A1C (test code = 7.8 % 4.0-5.7 H 4548-4) ANU (test code = ANU) Reference RangesNormal: <5.7%Prediabetes: 5.7 - 6.4%Diabetes: > 6.5% Lab Interpretation (test Abnormal code = 92116-4) NPI:[id number] GLUCOSE (AUTOMATED)2021-02-24 21:53:33 Test Item Value Reference Range Interpretation Comments POCT GLU (test code = 4599056687) 170 mg/dL 70-110 H Lab Interpretation (test code = Abnormal 09518-3) NPI:[id number] GLUCOSE (AUTOMATED)2021-02-24 16:39:31 Test Item Value Reference Range Interpretation Comments POCT GLU (test code = 4232034578) 147 mg/dL 70-110 H Lab Interpretation (test code = Abnormal 70806-4) NPI:[id number] GLUCOSE (AUTOMATED)2021-02-24 12:37:30 Test Item Value Reference Range Interpretation Comments POCT GLU (test code = [id number]) 141 mg/dL 70-110 H Lab Interpretation (test code = Abnormal 84527-6) NPI:[id number] METABOLIC PANEL (NA, K, CL, CO2, GLUCOSE, BUN, CREATININE, CA)2021-02-24 09:52:22 Test Item Value Reference Range Interpretation Comments NA (test code = 141 mmol/L 135-145 [id number]) K (test code = 4.3 mmol/L 3.5-5.0 2041792625) CL (test code = 107 mmol/L 98-108 1959599979) CO2 TOTAL (test code = 26 mmol/L 23-31 3293146016) AGAP (test code = 2-16 8630256213) BUN (test code = 10 mg/dL 7-23 [id number]) GLUCOSE (test code = 145 mg/dL 70-110 H [id number]) CREATININE (test code = 0.72 mg/dL 0.60-1.25 4841641633) CALCIUM (test code = 9.3 mg/dL 8.6-10.6 1802895104) eGFR (test code = mL/min/1.73m2 7774358802) ANU (test code = ANU) Association of [...] tests). Lab Interpretation Abnormal (test code = 26870-4) NPI:[id number] WITH [id number] 09:19:21 Test Item Value Reference Range Interpretation [...] RDW-SD (test code = 42.5 fL 38.5-51.6 92887-9) RDW-CV (test code = 12.8 % 12.1-15.4 788-0) PLT (test code = See_Comment L [Automated 777-3) message] The sy stem which generated this result transmitted reference range : 150 - 328 10*3/ ?L. The reference r dustin was not used to interpret this result as normal/abnormal . MPV (test code = 9.9 fL 9.8-13.0 33138-7) NRBC/100 WBC (test See_Comment [Automat ed code = 3762976861) message] The system which generated this result transmitted reference range : 0.0 - 10.0 /100 WBCs. The refer ence range was not u sed to interpret th is result as normal/abnormal . NRBC x10^3 (test code <0.01 See_Comment [Auto mated = 6351466127) message] The s ystem which generated this result transmitted reference range : 10*3/?L. The reference range was not used to interpret this result as normal/abnormal . GRAN MAT (NEUT) % 47.7 % (test code = 770-8) IMM GRAN % (test code 0.20 % = 3990006520) LYMPH % (test code = 39.0 % 736-9) MONO % (test code = 10.3 % 5905-5) EOS % (test code = 2.3 % 713-8) BASO % (test code = 0.5 % 706-2) GRAN MAT x10^3(ANC) 2.96 10*3/uL 1.99-6.95 (test code = 2198421849) IMM GRAN x10^3 (test <0.03 0.00-0.06 code = 1107517674) LYMPH x10^3 (test code 2.42 10*3/uL 1.09-3.23 = 731-0) MONO x10^3 (test code 0.64 10*3/uL 0.36-1.02 = 742-7) EOS x10^3 (test code = 0.14 10*3/uL 0.06-0.53 711-2) BASO x10^3 (test code 0.03 10*3/uL 0.01-0.09 = 704-7) Lab Interpretation Abnormal (test code = 40927-6) NPI:[id number] GLUCOSE (AUTOMATED)2021-02-24 01:42:01 Test Item Value Reference Range Interpretation Comments POCT GLU (test code = 8955932642) 178 mg/dL 70-110 H Lab Interpretation (test code = Abnormal 20539-1) NPI:[id number] GLUCOSE (AUTOMATED)2021-02-23 22:46:27 Test Item Value Reference Range Interpretation Comments POCT GLU (test code = 0913936780) 156 mg/dL 70-110 H Lab Interpretation (test code = Abnormal 11512-0) NPI:[id number] GLUCOSE (AUTOMATED)2021-02-23 16:57:14 Test Item Value Reference Range Interpretation Comments POCT GLU (test code = 1074340811) 185 mg/dL 70-110 H Lab Interpretation (test code = Abnormal 62681-6) NPI:[id number] GLUCOSE (AUTOMATED)2021-02-23 14:09:23 Test Item Value Reference Range Interpretation Comments POCT GLU (test code = 0709272143) 180 mg/dL 70-110 H Lab Interpretation (test code = Abnormal 91314-5) NPI:[id number] METABOLIC PANEL (NA, K, CL, CO2, GLUCOSE, BUN, CREATININE, CA)2021-02-23 09:26:37 Test Item Value Reference Range Interpretation Comments NA (test code = 141 mmol/L 135-145 8667854056) K (test code = 3.9 mmol/L 3.5-5.0 2164733619) CL (test code = 111 mmol/L 98-108 H 9174489367) CO2 TOTAL (test code = 23 mmol/L 23-31 7975307727) AGAP (test code = 2-16 6975461780) BUN (test code = 12 mg/dL 7-23 4207353497) GLUCOSE (test code = 164 mg/dL 70-110 H 7384451181) CREATININE (test code = 0.78 mg/dL 0.60-1.25 4112792339) CALCIUM (test code = 9.1 mg/dL 8.6-10.6 9695489606) eGFR (test code = mL/min/1.73m2 8371110090) ANU (test code = ANU) Association of [...] tests). Lab Interpretation Abnormal (test code = 88274-1) NPI:[id number] WITH [id number] 09:04:37 Test Item Value Reference Range Interpretation [...] RDW-SD (test code = 43.5 fL 38.5-51.6 52477-9) RDW-CV (test code = 12.8 % 12.1-15.4 788-0) PLT (test code = See_Comment L [Automated 777-3) message] The sy stem which generated this result transmitted reference range : 150 - 328 10*3/ ?L. The reference r dustin was not used to interpret this result as normal/abnormal . MPV (test code = 10.1 fL 9.8-13.0 47414-9) NRBC/100 WBC (test See_Comment [Automat ed code = 9624571857) message] The system which generated this result transmitted reference range : 0.0 - 10.0 /100 WBCs. The refer ence range was not u sed to interpret th is result as normal/abnormal . NRBC x10^3 (test code <0.01 See_Comment [Auto mated = 8490536486) message] The s ystem which generated this result transmitted reference range : 10*3/?L. The reference range was not used to interpret this result as normal/abnormal . GRAN MAT (NEUT) % 57.5 % (test code = 770-8) IMM GRAN % (test code 0.30 % = 5906149219) LYMPH % (test code = 31.0 % 736-9) MONO % (test code = 8.6 % 5905-5) EOS % (test code = 2.3 % 713-8) BASO % (test code = 0.3 % 706-2) GRAN MAT x10^3(ANC) 3.73 10*3/uL 1.99-6.95 (test code = 1622225155) IMM GRAN x10^3 (test <0.03 0.00-0.06 code = 2850504367) LYMPH x10^3 (test code 2.01 10*3/uL 1.09-3.23 = 731-0) MONO x10^3 (test code 0.56 10*3/uL 0.36-1.02 = 742-7) EOS x10^3 (test code = 0.15 10*3/uL 0.06-0.53 711-2) BASO x10^3 (test code <0.03 0.01-0.09 = 704-7) Lab Interpretation Abnormal (test code = 14569-5) NPI:[id number] GLUCOSE (AUTOMATED)2021-02-23 02:29:54 Test Item Value Reference Range Interpretation Comments POCT GLU (test code = 2094265824) 155 mg/dL 70-110 H Lab Interpretation (test code = Abnormal 74224-9) NPI:[id number] GLUCOSE (AUTOMATED)2021-02-22 22:51:30 Test Item Value Reference Range Interpretation Comments POCT GLU (test code = 6351923226) 176 mg/dL 70-110 H Lab Interpretation (test code = Abnormal 02990-3) NPI:[id number] GLUCOSE (AUTOMATED)2021-02-22 17:09:21 Test Item Value Reference Range Interpretation Comments POCT GLU (test code = 3117944048) 194 mg/dL 70-110 H Lab Interpretation (test code = Abnormal 73668-7) NPI:[id number] METABOLIC PANEL (NA, K, CL, CO2, GLUCOSE, BUN, CREATININE, CA)2021-02-22 11:26:26 Test Item Value Reference Range Interpretation Comments NA (test code = 136 mmol/L 135-145 1218245041) K (test code = 3.9 mmol/L 3.5-5.0 5440698569) CL (test code = 108 mmol/L 98-108 9319627532) CO2 TOTAL (test code 25 mmol/L 23-31 = 5724978869) AGAP (test code = 2-16 8335576449) BUN (test code = 14 mg/dL 7-23 0353996066) GLUCOSE (test code = 109 mg/dL 70-110 9478460608) CREATININE (test code 0.84 mg/dL 0.60-1.25 = 8162908328) CALCIUM (test code = 8.6 mg/dL 8.6-10.6 1545734831) eGFR (test code = mL/min/1.73m2 8530606746) ANU (test code = ANU) Association of [...] or urine or abnormalities in imaging tests). NPI:[id number] WITH [id number] 10:58:44 Test Item Value Reference Range Interpretation [...] RDW-SD (test code = 44.7 fL 38.5-51.6 70013-9) RDW-CV (test code = 12.8 % 12.1-15.4 788-0) PLT (test code = See_Comment L [Automated 777-3) message] The sy stem which generated this result transmitted reference range : 150 - 328 10*3/ ?L. The reference r dustin was not used to interpret this result as normal/abnormal . MPV (test code = 10.5 fL 9.8-13.0 13671-2) NRBC/100 WBC (test See_Comment [Automat ed code = 7712166162) message] The system which generated this result transmitted reference range : 0.0 - 10.0 /100 WBCs. The refer ence range was not u sed to interpret th is result as normal/abnormal . NRBC x10^3 (test code <0.01 See_Comment [Auto mated = 9054749661) message] The s ystem which generated this result transmitted reference range : 10*3/?L. The reference range was not used to interpret this result as normal/abnormal . GRAN MAT (NEUT) % 51.1 % (test code = 770-8) IMM GRAN % (test code 0.30 % = 0961473665) LYMPH % (test code = 36.1 % 736-9) MONO % (test code = 10.3 % 5905-5) EOS % (test code = 1.7 % 713-8) BASO % (test code = 0.5 % 706-2) GRAN MAT x10^3(ANC) 3.31 10*3/uL 1.99-6.95 (test code = 0294128216) IMM GRAN x10^3 (test <0.03 0.00-0.06 code = 7912368496) LYMPH x10^3 (test code 2.34 10*3/uL 1.09-3.23 = 731-0) MONO x10^3 (test code 0.67 10*3/uL 0.36-1.02 = 742-7) EOS x10^3 (test code = 0.11 10*3/uL 0.06-0.53 711-2) BASO x10^3 (test code 0.03 10*3/uL 0.01-0.09 = 704-7) Lab Interpretation Abnormal (test code = 68600-8) NPI:[id number] GLUCOSE (AUTOMATED)2021-02-22 02:14:29 Test Item Value Reference Range Interpretation Comments POCT GLU (test code = 2502021944) 151 mg/dL 70-110 H Lab Interpretation (test code = Abnormal 67440-9) NPI:[id number] GLUCOSE (AUTOMATED)2021-02-21 21:29:33 Test Item Value Reference Range Interpretation Comments POCT GLU (test code = 5707351065) 147 mg/dL 70-110 H Lab Interpretation (test code = Abnormal 67022-4) NPI:[id number] GLUCOSE (AUTOMATED)2021-02-21 17:20:58 Test Item Value Reference Range Interpretation Comments POCT GLU (test code = 7897860241) 155 mg/dL 70-110 H Lab Interpretation (test code = Abnormal 99363-0) NPI:[id number] GLUCOSE (AUTOMATED)2021-02-21 14:49:36 Test Item Value Reference Range Interpretation Comments POCT GLU (test code = 2980347426) 146 mg/dL 70-110 H Lab Interpretation (test code = Abnormal 45687-9) NPI:[id number] WITH [id number] 11:59:53 Test Item Value Reference Range Interpretation [...] RDW-SD (test code = 43.3 fL 38.5-51.6 84834-6) RDW-CV (test code = 12.8 % 12.1-15.4 788-0) PLT (test code = See_Comment L [Automated 777-3) message] The sy stem which generated this result transmitted reference range : 150 - 328 10*3/ ?L. The reference r dustin was not used to interpret this result as normal/abnormal . MPV (test code = 9.9 fL 9.8-13.0 82608-8) NRBC/100 WBC (test See_Comment [Automat ed code = 3306463962) message] The system which generated this result transmitted reference range : 0.0 - 10.0 /100 WBCs. The refer ence range was not u sed to interpret th is result as normal/abnormal . NRBC x10^3 (test code <0.01 See_Comment [Auto mated = 7640700091) message] The s ystem which generated this result transmitted reference range : 10*3/?L. The reference range was not used to interpret this result as normal/abnormal . GRAN MAT (NEUT) % 66.2 % (test code = 770-8) IMM GRAN % (test code 0.50 % = 3243722002) LYMPH % (test code = 20.0 % 736-9) MONO % (test code = 12.7 % 5905-5) EOS % (test code = 0.3 % 713-8) BASO % (test code = 0.3 % 706-2) GRAN MAT x10^3(ANC) 6.16 10*3/uL 1.99-6.95 (test code = 8136944225) IMM GRAN x10^3 (test 0.05 10*3/uL 0.00-0.06 code = 9137005431) LYMPH x10^3 (test code 1.86 10*3/uL 1.09-3.23 [...] . Lab Interpretation Abnormal (test code = 56888-1) NPI:[id number] Bbjil4228-76-90 11:54:57 Test Item Value Reference Range Interpretation Comments PHOSPHORUS (test code = 5694564675) 3.7 mg/dL 2.5-5.0 Lab Interpretation (test code = Normal 70752-1) NPI:[id number] METABOLIC PANEL (NA, K, CL, CO2, GLUCOSE, BUN, CREATININE, CA)2021-02-21 11:54:56 Test Item Value Reference Range Interpretation Comments NA (test code = 136 mmol/L 135-145 0841977791) K (test code = 3.6 mmol/L 3.5-5.0 2419425379) CL (test code = 104 mmol/L 98-108 1264962712) CO2 TOTAL (test code = 23 mmol/L 23-31 3528881769) AGAP (test code = 2-16 3533458046) BUN (test code = 17 mg/dL 7-23 9789539072) GLUCOSE (test code = 176 mg/dL 70-110 H 2702775225) CREATININE (test code = 0.82 mg/dL 0.60-1.25 9713503718) CALCIUM (test code = 8.6 mg/dL 8.6-10.6 1076511417) eGFR (test code = mL/min/1.73m2 1387401702) ANU (test code = ANU) Association of [...] tests). Lab Interpretation Abnormal (test code = 62500-0) NPI:[id number] FUNCTION PANEL (93359) (ALB,T.PRO,BILI T,BU/BC,ALT,AST,ALK PHOS)2021-02-21 11:54:56 Test Item Value Reference Range Interpretation Comments TOTAL BILI (test code = 8978198690) 0.6 mg/dL 0.1-1.1 BILI UNCON (test code = 0295604206) 0.3 mg/dL 0.1-1.1 BILI CONJ (test code = 7650877921) 0.0 mg/dL 0.0-0.3 T PROTEIN (test code = 4507435148) 7.4 g/dL 6.3-8.2 ALBUMIN (test code = 8239365827) 3.7 g/dL 3.5-5.0 ALK PHOS (test code = 0374000839) 87 U/L 34-122 ALTv (test code = 1742-6) 15 U/L 5-50 AST(SGOT) (test code = 4117926855) 28 U/L 13-40 Lab Interpretation (test code = Normal 51967-1) NPI:[id number] Emzgb1820-39-77 11:54:56 Test Item Value Reference Range Interpretation Comments MAGNESIUM (test code = 2512251287) 1.5 mg/dL 1.7-2.4 L Lab Interpretation (test code = Abnormal 06826-2) NPI:[id number] Time / [id number] 11:47:31 Test Item Value Reference Range Interpretation Comments PROTIME PATIENT (test See_Comment H [Auto mated message] code = 5964-2) The system [employer] generated this result transmitted ref erence range: 10.1 - 1 2.6 Seconds. The reference range was not used to int erpret this result as normal/abnormal . INR (test code = 6301-6) Nor mal INR <1.1; Warfarin Therap eutic range 2.0 to 3. 0 or 2.5 to 3.5, dep ending upon the indica tions. Lab Interpretation (test Abnormal code = 55224-8) NPI:[id number] 11:47:31 Test Item Value Reference Range Interpretation Comments APTT Patient (test code = See_Comment [ Automated message] 3173-2) The system [employer] generated this result transmitted ref erence range: 26 - 36 Seconds. The re ference range was not u sed to interpret this result as normal/abnor mal. Lab Interpretation (test Normal code = 16565-0) NPI:[id number] Acid Whole Hogsg1969-59-25 11:28:22 Test Item Value Reference Range Interpretation Comments LACTIC ACID (test code = 1.83 mmol/L 0.50-2.20 4195053476) Lab Interpretation (test code = Normal 19218-9) NPI:[id number] ABDOMEN PELVIS W [id number] 03:45:35 Thickening of the distal gastric wall, with mild mucosal enhancement,possibly reflecting gastritis or peptic ulcer disease. 16 mm left adrenal nodule, indeterminate by density. Comparison with anyprior noncontrast CT of the chest or abdomen or follow-up with renal massprotocol imaging could be considered. RL: 460 AFC: 05012 Or dering physician: ELSA LANDRY Indication: Acute abdominal pain, [...] renal massprotocol imaging could be considered.RL: 460AFC: 92976 NPI:[id number] CHEST 1 VW 2021-02-21 03:38:53No radiographic evidence for acute cardiopulmonary abnormality. [...] the original.EXAMINATION:XR CHEST 1 VWORDERING PHYSICIAN: ELSA MAHONEYRIMACLINICAL HISTORY: Fever ;COMPARISON:Chest one view dated 01/14/2021TECHNIQUE:Single frontal view of the chestFINDINGS:Lungs are well expanded. No pulmonary consolidation or confluentpulmonary opacity. No pneumothorax or pleural effusion. Cardiomediastinalsilhouette is within normal limits. Degenerative changes of the thoracicspine.IMPRESSIONNo radiographic evidence for acute cardiopulmonary ab normality.RL: 111 NPI:[id number] T5715-52-62 01:47:17 Test Item Value Reference Interpretation Comments Range TROPONIN I (test 0.030 ng/mL See_Comment [Automated code = 5424520440) message] The system which generated this result [...] biotin. Lab Interpretation Normal (test code = 26309-1) NPI:[id number] 01:47:06 Test Item Value Reference Range Interpretation Comments APPEARANCE (test code = Cloudy Clear A 8575278256) COLOR (test code = Dona Yellow A 2052252934) PH (test code = 4.8-8.0 0245982883) SP GRAVITY (test code = 1.003-1.030 0826272264) GLU U QUAL (test code = Normal Normal 3731170885) BLOOD (test code = 2+ Negative A 4702667205) KETONES (test code = Negative Negative 9149232796) PROTEIN (test code = 100 mg/dL Negative A 2887-8) UROBILIN (test code = Normal Normal 5241330928) BILIRUBIN (test code = Negative Negative 2108104524) NITRITE (test code = Negative Negative 6463749506) LEUK MIGDALIA (test code = 250/uL Negative A 1585194036) RBC/HPF (test code = See_Comment H [Autom ated message] 9709211518) The system [employer] generated this result transmit elaine reference range : 0 - 3 HPF. The refe rence range was not u sed to interpret th is result as normal/abnormal . WBC/HPF (test code = >182 See_Comment H [Autom ated message] 2711037052) The system [employer] generated this result transmit elaine reference range : 0 - 5 HPF. The refe rence range was not u sed to interpret th is result as normal/abnormal . BACTERIA (test code = Many Negative A 2597274299) AMORPHOUS (test code = Few Rare HPF A 8281597233) WBC CLUMPS (test code = See_Comment H [Au tomated message] 0640779812) The system [employer] generated this result transmit elaine reference range : <=1 HPF. The refere nce range was not u sed to interpret th is result as normal/abnormal . Lab Interpretation (test Abnormal code = 83982-3) NPI:[id number] FUNCTION PANEL (11504) (ALB,T.PRO,BILI T,BU/BC,ALT,AST,ALK PHOS)2021-02-21 01:36:37 Test Item Value Reference Range Interpretation Comments TOTAL BILI (test code = 6299118459) 0.6 mg/dL 0.1-1.1 BILI UNCON (test code = 4295345233) 0.4 mg/dL 0.1-1.1 BILI CONJ (test code = 4340350008) 0.0 mg/dL 0.0-0.3 T PROTEIN (test code = 8831395267) 9.2 g/dL 6.3-8.2 H ALBUMIN (test code = 5757401558) 4.7 g/dL 3.5-5.0 ALK PHOS (test code = 4320194815) 126 U/L 34-122 H ALTv (test code = 1742-6) 18 U/L 5-50 AST(SGOT) (test code = 9953775903) 38 U/L 13-40 Lab Interpretation (test code = Abnormal 27011-7) NPI:[id number]. METABOLIC PANEL (31195)2021-02-21 01:36:36 Test Item Value Reference Range Interpretation Comments NA (test code = 138 mmol/L 135-145 2929912216) K (test code = 4.4 mmol/L 3.5-5.0 3589780680) CL (test code = 100 mmol/L 98-108 9460229881) CO2 TOTAL (test code = 25 mmol/L 23-31 0369772402) AGAP (test code = 2-16 9095179974) BUN (test code = 19 mg/dL 7-23 2169271498) GLUCOSE (test code = 195 mg/dL 70-110 H 5553219582) CREATININE (test code = 0.90 mg/dL 0.60-1.25 3683271719) TOTAL BILI (test code = 0.6 mg/dL 0.1-1.2 1454752605) CALCIUM (test code = 9.8 mg/dL 8.6-10.6 7557312730) T PROTEIN (test code = 9.2 g/dL 6.3-8.2 H 1837530113) ALBUMIN (test code = 4.7 g/dL 3.5-5.0 8265981252) ALK PHOS (test code = 126 U/L 34-122 H 4665601153) ALTv (test code = 18 U/L 5-50 1742-6) AST(SGOT) (test code = 38 U/L 13-40 7308617519) eGFR (test code = mL/min/1.73m2 9399027538) ANU (test code = ANU) Association of [...] tests). Lab Interpretation Abnormal (test code = 02131-1) NPI:[id number] 01:36:16 Test Item Value Reference Range Interpretation Comments LIPASE (test code = 0604256262) 50 U/L 0-220 Lab Interpretation (test code = Normal 71745-6) NPI:[id number] (ID NOW RAPID TESTING)2021-02-21 01:35:20 Test Item Value Reference Range Interpretation Comments SARS-CoV-2 Rapid ID NOW Not Detected Not Detected (test code = 96874-2) ANU (test code = ANU) ID NOW COVID-19 Assay is an isothermal nucleic acid amplification test intended for the qualitative detection of nucleic acid from SARS-CoV-2 viral RNA in nasopharyngeal ([employer]) specimens. It is used under Emergency Use [...] indicated. Lab Interpretation Normal (test code = 00697-1) NPI:[id number] WITH [id number] 01:28:19 Test Item Value Reference Range Interpretation [...] RDW-SD (test code = 43.2 fL 38.5-51.6 98950-4) RDW-CV (test code = 12.5 % 12.1-15.4 788-0) PLT (test code = See_Comment [Automated 777-3) message] The sy stem which generated this result transmitted reference range : 150 - 328 10*3/ ?L. The reference r dustin was not used to interpret this result as normal/abnormal . MPV (test code = 10.1 fL 9.8-13.0 64092-8) NRBC/100 WBC (test See_Comment [Automat ed code = 2173062276) message] The system which generated this result transmitted reference range : 0.0 - 10.0 /100 WBCs. The refer ence range was not u sed to interpret th is result as normal/abnormal . NRBC x10^3 (test code <0.01 See_Comment [Auto mated = 9386595343) message] The s ystem which generated this result transmitted reference range : 10*3/?L. The reference range was not used to interpret this result as normal/abnormal . GRAN MAT (NEUT) % 78.2 % (test code = 770-8) IMM GRAN % (test code 0.60 % = 4477733406) LYMPH % (test code = 11.1 % 736-9) MONO % (test code = 9.2 % 5905-5) EOS % (test code = 0.4 % 713-8) BASO % (test code = 0.5 % 706-2) GRAN MAT x10^3(ANC) 7.80 10*3/uL 1.99-6.95 H (test code = 9441496151) IMM GRAN x10^3 (test 0.06 10*3/uL 0.00-0.06 code = 1588896408) LYMPH x10^3 (test code 1.11 10*3/uL 1.09-3.23 = 731-0) MONO x10^3 (test code 0.92 10*3/uL 0.36-1.02 = 742-7) EOS x10^3 (test code = 0.04 10*3/uL 0.06-0.53 L 711-2) BASO x10^3 (test code 0.05 10*3/uL 0.01-0.09 = 704-7) Lab Interpretation Abnormal (test code = 28451-8) NPI:[id number] Acid Whole [id number] 01:04:41 Test Item Value Reference Range Interpretation Comments LACTIC ACID (test code = 2.15 mmol/L 0.50-2.20 1107618917) Lab Interpretation (test code = Normal 30500-2) NPI:[id number] Chest Wo Hmxjjony1037-03-55 18:55:19EXAMINATION:CT CHEST WO CONTRAST CLINICAL HISTORY:R06.02 Shortness of breath, SOB TECHNIQUE:Multiple axial images of the chest were obtained [...] is no acute upper abdominal finding.6.No acute skeletalabnormalities seen. IMPRESSION:No acute cardiopulmonary disease. [id number] Interface, [...] are clear.2.There is no pleural or pericardial e ffusion.3.No significant thoracic lymphadenopathy is seen.4.The heart size is normal.5.There is a stable benign 14 mm left adrenal nodule. There is no acute upper abdominal finding.6.No acute skeletal abnormalities seen.IMPRESSION:No acute cardiopulmonary disease.[id number] [id number] 16:50:00 Test Item Value Reference Range Interpretation Comments GLUCOSE BEDSIDE TESTING (test code = 98 mg/dL 70-110 N GLUBED) - XR FLUOROSCOPY 0-60 [id number] 16:05:00 Name: ANABELA RUTH [facility] : 1955 Age/S: 64 / M [address] [place] Unit #: [id number] Loc: [place] [address] Phys: Trever Calvillo MD Acct: [id number] Dis Date: Status: [facility] PHONE #: [phone] Exam Date: 10/02/2019 1500 FAX #: Reason: LEFT FEMUR JUN PLATE REMOVAL EXAMS: CPT: [id number] XR FLUOROSCOPY 0-60 MIN 44593 Fluoro Time: 17 SEC DAP (Gy m2): [...] Signed Report Name: ANABELA RUTH [facility] : 1955 Age/S: 64 / M [address] [place] Unit #: [id number] Loc: [place] [address] Phys: Trever Calvillo MD Acct: [id number] Dis Date: Status: [facility] [place]ONE #: [phone] Exam Date: 10/02/2019 1500 FAX #: Reason: LEFT FEMUR JUN PLATE REMOVAL EXAMS: CPT: [id number] XR FLUOROSCOPY 0-60 MIN 70421 Fluoro Time: 17 SEC DAP (Gy m2): Air Kerma (mGy): <Continued> Technologist: Raine Vera, RT(R) Trnscb Date/Time: 10/02/2019 (160) [id number] Orig Print D/T: S: 10/02/2019 (9553) PAGE 2 Signed Report UA RFLX MICR CULT IF [id number] 08:47:00 Test Item Value Reference Range Interpretation [...] PRE OP EVALUA RFLX MICR CULT IF [id number] 08:46:00 Test Item Value Reference Range Interpretation [...] Dysuria/FrequencySpec Comments: INDICATION: PRE OP EVALBASIC METABOLIC [id number] 07:29:00 Test Item Value Reference Range Interpretation [...] CA) 9.1 MG/DL 8.5-10.1 N VITAMIN D [id number] 07:29:00 Test Item Value Reference Range Interpretation Comments VITAMIN D 14.1 ng/mL 30.0-100.0 A Vitamin D defic iency has 25-HYDROXY (test been define d by the code = VITD25) [facility] edicine and an Endocrine So ciety practice guidel ine as alevel of serum 25-OH vitamin D less than 20 ng/mL (1,2).The Endocrine Society went on to further define vitamin Dinsufficiency as a level between 21 and 29 ng/mL (2).1. IOM (Ins titute of Medicine). 2010 . Dietary reference int akes for calcium and D. [place]: The [employer] .2. Sailaja MF, Antonio NC, Dianna i MOSER, et al. Evaluatio n, treatment, and prevention of vitamin D deficiency: an Endocrine Society clinica l practice guideline. [employer]RAD EM. 2010; 96(7):1911-30.P erformed At: [facility] [address] [place], [place] [id number] Trever Ac MD Ph:[phone] BASIC METABOLIC [id number] 07:08:00 Test Item Value Reference Range Interpretation [...] CA) 9.1 MG/DL 8.5-10.1 N VITAMIN D [id number] 07:08:00 Test Item Value Reference Range Interpretation Comments VITAMIN D 25-HYDROXY (test code = 14.1 VITD25) CBC W/AUTO [id number] 14:54:00 Test Item Value Reference Range Interpretation [...] code = NO DIFF/SCN CRITERIA MDIFF) SED [id number] 14:54:00 Test Item Value Reference Range Interpretation Comments SED RATE (test code = SEDW) 80 mm/hr 0-20 H - XR CHEST 2 [id number] 14:38:00 Name: ANABELA RUTH [facility] : 1955 Age/S: 64 / M [id number] [place] Unit #: [id number] Loc: [place] [place] [address] Phys: Trever Calvillo MD Acct: [id number] Dis Date: Status: PRE SDC PHONE #: [phone] Exam Date: 09/19/2019 1400 FAX #: Reason: PREOP EXAMS: CPT: [id number] XR CHEST 2 V 22606 Fluoro Time: DAP (Gy m2): Air Kerma [...] PAGE 1 Signed Report Name: [facility] : 1955 Age/S: 64 / M [id number] [place] Unit #: [id number] Loc: [place] [address] Phys: Trever Calvillo MD Acct: [id number] Dis Date: Status: PRE SDC PHONE #: [phone] Exam Date: 09/19/2019 1400 FAX #: Reason: PREOP EXAMS: CPT: [id number] XR CHEST 2 V 07726 Fluoro Time: DAP (Gy m2): Air Kerma (mGy): <Continued> Technologist: Raine Vera, RT(R) Trnscb Date/Time: 09/19/2019 (9118) [email or web address] Orig Print D/T: S: 09/19/2019 (3310) PAGE 2 Signed ReportC REACTIVE [id number] 13:53:00 Test Item Value Reference Range Interpretation Comments C REACTIVE PROTEIN (test code = 0.629 MG/DL 0.000-0.3 H CRP) BASIC METABOLIC [id number] 13:52:00 Test Item Value Reference Range Interpretation [...] CA) 9.1 MG/DL 8.5-10.1 N VITAMIN D [id number] 13:52:00 Test Item Value Reference Range Interpretation Comments VITAMIN D 25-HYDROXY (test code = VITD25) PROTHROMBIN [id number] 13:42:00 Test Item Value Reference Range Interpretation Comments PT PATIENT (test code = PTP) 13.2 SECONDS 9.3-12.9 H INTERNATIONAL NORMAL RATIO 1.16 INR Unit 0.8-1.2 N (test code = INR) THROMBOPLASTIN TIME [id number] 13:42:00 Test Item Value Reference Range Interpretation Comments THROMBOPLASTIN TIME PARTIAL 34.7 SECONDS 26-35 N (test code = PTT) CBC W/AUTO [id number] 13:33:00 Test Item Value Reference Range Interpretation [...] code = NO DIFF/SCN CRITERIA MDIFF) SED [id number] 13:33:00 Test Item Value Reference Range Interpretation Comments SED RATE (test code = SEDW) mm/hr 0-20 - CT LOWER EXTRM W/O C [id number] 11:45:00 Name: ANABELA RUTH Transfer : 1955 Age/S: 64 / M [address] [place] Unit #: [id number] Loc: [place] [address] Phys: Trever Calvillo MD Acct: [id number] Dis Date: Status: PRE CLI PHONE #: [phone] Exam Date: 09/19/2019 1100 FAX #: Reason: PAIN LFT KNEE EXAMS: CPT: [id number] [place] LOWER EXTRM W/[place] [address] EXAM: - CTLOWER EXTRM W/O C LT [...] 1 Signed Report (CONTINUED) Name: ANABELA RUTH : 1955 Age/S: 64 / M [address] [place] Unit #: [id number] Loc: [place] [address] Phys: Trever Calvillo MD Acct: [id number] Dis Date: Status: PRE CLI PHONE #: [phone] Exam Date: 09/19/2019 1100 FAX #: Reason: PAIN LFT KNEE EXAMS: CPT: [id number] CT LOWER EXTRM W/[place] [address] <Continued> at 1145 Reported and signed by: Oswald Devi MD CC: Trever Calvillo MD; Kiran Loera MD Technologist:Desire Hernandez, RT(R)(MR) CTDI: DLP: Trnscb Date/Time: 09/19/2019 (1145) [email or web address] Orig Print D/T: S: 09/19/2019 (9507) PAGE 2 Signed ReportXR CHEST 2 [id number] 01:04:06 No acute intrathoracic abnormality.* * * * * * * * ORIGINAL REPORT * * * * * * * *PROCEDURE: XR CHEST 2 VW CLINICAL INDICATION: dyspnea COMPARISON: 09/20/2017 FINDINGS: The lungs are clear, no infiltrate or nodule seen. No pleural effusion or pneumothorax is seen. The cardiomediastinal silhouette is normal. No acute bony abnormality. Mild arthritic changes throughout spine andshoulders. [facility], Radiant Results Inft User - 02/23/2019 8:04 [...] arthritic changes throughout spine andshoulders.IMPRESSIONNo acute intrathoracic abnormality.
[2021-12-06 15:14] LABS: Absolute Lymphocytes (CBC) 2.5 K/uL (0.7-4.9); Hematocrit 36.9 % (39.6-49.0); Lymphocytes % 27.8 % (15.3-44.8); MPV 8.4 fL (7.6-11.3); RBC Red Blood Cell Count 3.86 M/uL (4.33-5.43)
[2021-12-06 15:24] LABS: Albumin 3.2 g/dL (3.4-5.0); Potassium 4.3 mmol/L (3.5-5.1)
[2021-12-06 15:28] LABS: Bilirubin Total 0.4 mg/dL (0.2-1.0); Protein, Total 7.8 g/dL (6.4-8.2)
--- NOTE | 2021-12-06 15:46 | RAD REPORT ---
EXAM DESCRIPTION: RAD - Chest Single View - 12/06/2021 3:39 pm CLINICAL HISTORY: ABDOMINAL DISTENTION COMPARISON: <Comparisons> FINDINGS: Lines: None. Lungs: No evidence of edema or pneumonia. Pleural: No significant pleural effusions or pneumothorax. Cardiac: The heart size is within normal limits. Bones: No acute fractures. Fusion hardware in the cervical spine. Other: IMPRESSION: No acute cardiopulmonary disease.
--- NOTE | 2021-12-06 15:58 | RAD REPORT ---
EXAM DESCRIPTION: CTAbdomen Pelvis W Contrast - 12/06/2021 3:49 pm CLINICAL HISTORY: Abdominal pain, acute, nonlocalized COMPARISON: Abdomen Pelvis W Contrast dated 11/23/2020; Abdomen Pelvis W Contrast dated 9; Abdomen Pelvis W Contrast dated 09/17/2018 TECHNIQUE: CT of the abdomen and pelvis was performed. All CT scans are performed using dose optimization technique as appropriate and may include automated exposure control or mA/KV adjustment according to patient size. FINDINGS: Lower chest: No acute abnormality. Liver: No acute abnormality or suspicious lesions. Biliary: No biliary ductal dilatation. Stomach: No significant focal abnormality. Duodenum: No significant focal abnormality. Pancreas: No significant abnormality. Spleen: No significant abnormality. Adrenal: Unchanged benign left adrenal nodule. Kidney/ureter: No hydronephrosis. No renal calculi. Absent left kidney. Too small to characterize rig ht renal lesion, likely a cyst. Retroperitoneum: No retroperitoneal adenopathy. Vascular: No aneurysm. Bowel: Large sigmoid and rectal stool burden.. Peritoneum: No ascites or free air. Bladder: Grossly unremarkable. Reproductive: High-riding right testicle in the right inguinal canal. Bones: No acute fracture. Multilevel degenerative changes are present in the spine. Other: n/a IMPRESSION: Large stool burden in the sigmoid and rectum consistent with constipation. Equivocal for fecal impaction.
[2021-12-06] MEDS ORDERED: BISACODYL 10 MG RECTAL SUPP ONE ×2 (16:42→19:01)
[2021-12-06] MEDS ORDERED: LACTULOSE 20 GM/30 ML UCUP ONE (16:42)
[2021-12-06] MEDS ORDERED: NA CHLORIDE 0.9% 500 ML ONE (16:42)
[2021-12-06] MEDS ORDERED: MORPHINE 2 MG/ML SYR ONE (16:58)
[2021-12-06] MEDS ORDERED: ONDANSETRON 4 MG/2 ML VIAL ONE (16:59)
[2021-12-06] MEDS ORDERED: MINERAL OIL ENEMA 135 ML BTL PR ONE (18:32)
--- NOTE | 2021-12-06 19:17 | ER ---
Nurse's Notes [facility] Name: David Lopez Age: 66 yrs Sex: Male : 1955 Arrival Date: 12/06/2021 Time: 14:22 Bed 4 Private MD: Diagnosis: Constipation, unspecified Presentation: 12/06 14:22 Chief complaint: EMS states: constipation and abdominal pain x3 days. enema not sun working. Coronavirus screen: Vaccine status: Patient reports being unvaccinated. Ebola Screen: Patient denies travel to an Ebola-affected area in the 21 days before illness onset. Initial Sepsis Screen: Does the patient meet any 2 criteria? No. Patient's initial sepsis screen is negative. Does the patient have a suspected source of infection? No. Patient's initial sepsis screen is negative. Risk Assessment: Do you want to hurt yourself or someone else? Patient reports no desire to harm self or others. Onset of symptoms was December 03, 2021. 14:22 Method Of Arrival: EMS: [facility] 14:22 Acuity: LEANNA 3 sun Triage Assessment: 14:28 General: Appears in no apparent distress. Behavior is calm, cooperative. sun Historical: - Home Meds: 14:26 aspirin 81 mg Oral chew 1 tab once daily [Active]; atorvastatin 80 mg Oral tab 1 tab sun once daily [Active]; baclofen 10 mg Oral tab 1 tab twice daily [Active]; buprenorphine HCl buccal 2 times per day [Active]; fluoxetine 40 mg Oral cap 1 cap once daily [Active]; gabapentin 600 mg Oral tab 1 tab 3 times per day [Active]; Humulin R [Active]; metformin 500 mg Oral Tb24 1 tab 2 times per day [Active]; venlafaxine 75 mg Oral cp24 1 cap once daily [Active]; - PMHx: 14:26 CVA; Diabetes - NIDDM; Hypertension; Parkinsons; sun - PSHx: 14:26 hip replacement; sun - Immunization history:: Adult Immunizations. - Social history:: Smoking status: Patient denies any tobacco usage or history of. Screenin:26 Abuse screen: Denies threats or abuse. Denies injuries from another. Nutritional sun screening: No deficits noted. Tuberculosis screening: No symptoms or risk factors identified. Fall Risk Secondary diagnosis (15 points) CVA, Mental Status- Overestimates/Forgets Limitations (15 pts.). Assessment: 14:25 Pain: Complains of pain in abdomen. GI: Abdomen is non-distended, Abd is soft sun Parent/caregiver reports the patient having constipation, pain. 19:43 Reassessment: pt is resting quietly spouses states he has had bowel movement. Spouse bb verbalized understanding of and agrees to plan of care discharge instructions given, EMS notified of pt's need for transportation home. Vital Signs: 14:22 BP 144 / 86; Pulse 70; Resp 17; Temp 98.1; Pulse Ox 98% on R/A; Weight 63.5 kg; Height sun 5 ft. 5 in. (165.10 cm); 19:17 BP 140 / 74; Pulse 76; Resp 18 S; Pulse Ox 98% on R/A; as6 19:43 BP 142 / 76; Pulse 81; Resp 16 S; Pulse Ox 99% on R/A; bb 14:22 Body Mass Index 23.30 (63.50 kg, 165.10 cm) sun ED Course: 14:22 Patient arrived in ED. sun 14:22 Forest Kc PA is PHCP. cp 14:22 Forest Guerra MD is Attending Physician. cp 14:24 Triage completed. sun 14:25 Michelle Coley, RN is Primary Nurse. sun 14:28 Arm band placed on. sun 14:28 Patient has correct armband on for positive identification. Bed in low position. sun 14:28 No provider procedures requiring assistance completed. sun 14:57 CBC with Diff Sent. sun 14:57 CMP Sent. sun 14:57 Lipase Sent. sun 15:40 XRAY Chest (1 view) In Process Unspecified. EDMS 15:50 CT Abd/Pelvis - IV Contrast Only In Process Unspecified. EDMS 19:29 Primary Nurse role handed off by Michelle Coley, RN mw2 19:52 IV discontinued, intact, bleeding controlled, No redness/swelling at site. Pressure bb dressing applied. Administered Medications: 16:58 Drug: Lactulose 30 grams Volume: 45 ml; Route: PO; sun 16:59 Follow up: Response: No adverse reaction sun 16:58 Drug: Dulcolax (bisacodyl) Suppository 10 mg Route: GA; sun 17:00 Follow up: Response: No adverse reaction sun 16:58 Drug: NS 0.9% 500 ml Route: IV; Rate: 500 ml/hr; Site: right antecubital; sun 20:38 Follow up: Response: No adverse reaction; IV Status: Completed infusion; IV Intake: as6 500ml 16:59 Drug: Zofran (Ondansetron) 4 mg Route: IVP; Site: right antecubital; sun 16:59 Follow up: Response: No adverse reaction sun 16:59 Drug: morphine 2 mg Route: IVP; Site: right antecubital; sun 20:37 Follow up: Response: No adverse reaction; RASS: Alert and Calm (0) as6 18:51 Drug: Fleet Enema (sodium phosphate) 133 ml Route: GA; sun 18:51 Follow up: Response: No adverse reaction sun Intake: 20:38 IV: 500ml; Total: 500ml. as6 Outcome: 19:16 Discharge ordered by MD. tanya 19:44 Discharged to home via ambulance, with family. bb 19:44 Condition: stable 19:44 Discharge instructions given to family, Instructed on discharge instructions, follow up and referral plans. medication usage, Demonstrated understanding of instructions, follow-up care, medications, Prescriptions given X 2. 20:39 Patient left the ED. as6 Signatures: Dispatcher [employer] EDMS Jacquelin Desir RN RN bb Forest Kc PA PA cp [place], MyKena mw2 Israel Santoyo RN RN as6 Thania-Michelle Sauer RN RN sun
--- NOTE | 2021-12-06 19:17 | EDPHYS ---
Physician Documentation [facility] Name: David Lopez Age: 66 yrs Sex: Male : 1955 Arrival Date: 12/06/2021 Time: 14:22 Bed 4 Private MD: ED Physician Forest Guerra HPI: 12/06 14:30 This 66 yrs old Male presents to ER via EMS with complaints of Constipation. cp 14:30 The patient presents with abdominal pain that is diffuse. Associated signs and cp symptoms: Pertinent positives: constipation, Pertinent negatives: anorexia, blood in stools, chest pain, diarrhea, dysuria, fever, vomiting. 14:30 Severity of pain: in the emergency department the pain is unchanged despite home cp interventions. 14:30 reports she has given several enemas without patient having bowel movement. cp reports last bowel movement was 1 week ago. Historical: - Home Meds: 14:26 aspirin 81 mg Oral chew 1 tab once daily [Active]; atorvastatin 80 mg Oral tab 1 tab sun once daily [Active]; baclofen 10 mg Oral tab 1 tab twice daily [Active]; buprenorphine HCl buccal 2 times per day [Active]; fluoxetine 40 mg Oral cap 1 cap once daily [Active]; gabapentin 600 mg Oral tab 1 tab 3 times per day [Active]; Humulin R [Active]; metformin 500 mg Oral Tb24 1 tab 2 times per day [Active]; venlafaxine 75 mg Oral cp24 1 cap once daily [Active]; - PMHx: 14:26 CVA; Diabetes - NIDDM; Hypertension; Parkinsons; sun - PSHx: 14:26 hip replacement; sun - Immunization history:: Adult Immunizations. - Social history:: Smoking status: Patient denies any tobacco usage or history of. ROS: 14:35 Constitutional: Negative for body aches, chills, fever, poor PO intake. cp 14:35 Eyes: Negative for injury, pain, redness, and discharge. cp 14:35 Cardiovascular: Negative for chest pain. 14:35 Respiratory: Negative for cough, shortness of breath, wheezing. 14:35 Abdomen/GI: Positive for abdominal pain, constipation, Negative for vomiting, diarrhea. 14:35 Back: Positive for pain at rest, pain with movement. 14:35 : Negative for urinary symptoms. 14:35 Neuro: Negative for altered mental status. 14:35 All other systems are negative. Exam: 17:00 Head/Face: Normocephalic, atraumatic. cp 17:00 Constitutional: The patient appears in no acute distress, alert, awake, non-diaphoretic, well developed, well nourished. 17:00 Chest/axilla: Inspection: normal, Palpation: is normal, no crepitus, no tenderness. 17:00 Cardiovascular: Rate: normal, Rhythm: regular, Edema: is not appreciated, JVD: is not appreciated. 17:00 Respiratory: the patient does not display signs of respiratory distress, Respirations: normal, no use of accessory muscles, no retractions, labored breathing, is not present, Breath sounds: are clear throughout, no decreased breath sounds, no stridor, no wheezing. 17:00 Abdomen/GI: Inspection: distension, that is mild, in the abdomen diffusely, Bowel sounds: active, all quadrants, Palpation: soft, in all quadrants, mild abdominal tenderness, in all quadrants, rebound tenderness, is not appreciated, voluntary guarding, is elicited in the abdomen diffusely, Rectal exam: Stool: brown, guaiac negative, loose. 17:00 Back: CVA tenderness, is absent. cp 17:00 Neuro: Orientation: no acute changes, per EMS, Mentation: no acute changes, per EMS. Vital Signs: 14:22 BP 144 / 86; Pulse 70; Resp 17; Temp 98.1; Pulse Ox 98% on R/A; Weight 63.5 kg; Height sun 5 ft. 5 in. (165.10 cm); 19:17 BP 140 / 74; Pulse 76; Resp 18 S; Pulse Ox 98% on R/A; as6 19:43 BP 142 / 76; Pulse 81; Resp 16 S; Pulse Ox 99% on R/A; bb 14:22 Body Mass Index 23.30 (63.50 kg, 165.10 cm) sun MDM: 14:24 Patient medically screened. cp 15:00 Differential diagnosis: bowel obstruction, constipation, ileus. cp 19:15 Data reviewed: vital signs, nurses notes, lab test result(s), radiologic studies, CT cp scan. 19:15 Counseling: I had a detailed discussion with the patient and/or guardian regarding: the cp historical points, exam findings, and any diagnostic results supporting the discharge/admit diagnosis, lab results, radiology results, to return to the emergency department if symptoms worsen or persist or if there are any questions or concerns that arise at home. Response to treatment: Improved. Patient observed to have several small bowel movements by nurse. Will discharge to home for continued monitoring. 12/06 14:24 Order name: CBC with Diff; Complete Time: 15:48 12/06 15:48 Interpretation: Normal except: RBC 3.86; HGB 12.0; HCT 36.9; PLT 129; RDW 16.1. cp 12/06 14:24 Order name: CMP; Complete Time: 15:48 12/06 15:48 Interpretation: Normal except: CL 110; GLUC 62; ALB 3.2; GFR 63; ALK 130; A/G 0.7; GLOB cp 4.6. 12/06 14:24 Order name: Lipase; Complete Time: 15:48 12/06 14:24 Order name: XRAY Chest (1 view); Complete Time: 15:48 12/06 15:49 Interpretation: Report review. 12/06 15:02 Order name: CT Abd/Pelvis - IV Contrast Only; Complete Time: 16:01 12/06 14:24 Order name: IV Saline Lock; Complete Time: 14:56 12/06 14:24 Order name: Labs collected and sent; Complete Time: 14:56 12/06 14:24 Order name: Urine Dipstick-Ancillary (obtain specimen) cp Administered Medications: 16:58 Drug: Lactulose 30 grams Volume: 45 ml; Route: PO; sun 16:59 Follow up: Response: No adverse reaction sun 16:58 Drug: Dulcolax (bisacodyl) Suppository 10 mg Route: OR; sun 17:00 Follow up: Response: No adverse reaction sun 16:58 Drug: NS 0.9% 500 ml Route: IV; Rate: 500 ml/hr; Site: right antecubital; sun 20:38 Follow up: Response: No adverse reaction; IV Status: Completed infusion; IV Intake: as6 500ml 16:59 Drug: Zofran (Ondansetron) 4 mg Route: IVP; Site: right antecubital; snu 16:59 Follow up: Response: No adverse reaction sun 16:59 Drug: morphine 2 mg Route: IVP; Site: right antecubital; sun 20:37 Follow up: Response: No adverse reaction; RASS: Alert and Calm (0) as6 18:51 Drug: Fleet Enema (sodium phosphate) 133 ml Route: OR; sun 18:51 Follow up: Response: No adverse reaction sun Disposition Summary: 12/06/21 19:16 Discharge Ordered Location: Home cp Problem: new cp Symptoms: have improved cp Condition: Stable cp Diagnosis - Constipation, unspecified cp Followup: cp - With: Private Physician - When: 2 - 3 days - Reason: Recheck today's complaints Discharge Instructions: - Discharge Summary Sheet cp - Constipation, Adult cp Forms: - Medication Reconciliation Form cp - Thank You Letter cp - Antibiotic Education cp - Prescription Opioid Use cp - SBAR form as6 Prescriptions: - Dulcolax (bisacodyl) 10 mg Rectal suppository - insert 1 suppository by RECTAL route once daily as needed for constipation; 20 cp suppository; Refills: 0, Product Selection Permitted - Miralax 17 gram Oral powder in packet - take 1 packet by ORAL route once daily As needed; 20 packet; Refills: 0, cp Product Selection Permitted Signatures: Dispatcher [employer] EDMS Forest Kc PA PA cp Michelle Coley RN RN Israel Santoyo RN as6 Corrections: (The following items were deleted from the chart) 12/07 17:41 12/06 17:00 Abdomen/GI: Inspection: distension, that is mild, in the abdomen diffusely, cp Bowel sounds: active, all quadrants, Palpation: soft, in all quadrants, mild abdominal tenderness, in all quadrants, rebound tenderness, is not appreciated, voluntary guarding, is elicited in the abdomen diffusely, cp 12/07 18:58 12/06 14:30 Associated signs and symptoms: Pertinent positives: constipation, cp cp
[2021-12-06 21:16] VITALS: TEMP 98.1
[2021-12-06 21:19] VITALS: BP 142/76; O2SAT 99
== END 2021-12-06 20:39 | disposition home or self-care (01) ==
LOC: ER 14:19
DX: K59.00 Constipation, unspecified (principal); I10 Essential (primary) hypertension; G20 Parkinson's disease; E11.9 Type 2 diabetes mellitus without complications; Z86.73 Personal history of transient ischemic attack (TIA), and cerebral infarction without residual deficits; Z79.82 Long term (current) use of aspirin
CPT/HCPCS: 96361; 85025; 36415; 83690; 80053; 74177; 71045; 96375; 96374; 99284; Q9967; J2270; J7040; J2405

== ENCOUNTER 2021-12-23 03:39 | Observation (INO) | payer OTHER ==
--- OUTSIDE RECORDS SUMMARY | 2021-12-23 03:48 | XMS REPORT | Continuity of Care Document ---
:1955 Author Organization [facility] t Address [address] [place] [address] Care Team Providers Name Role Phone Conner [...] Clyde Pacheco MD Attending Clinician Jalen IGNACIO, Tyrelpa Attending Clinician [facility] Attending Clinician Unavailable Linda IGNACIO Admitting Clinician KNOW Admitting Clinician Unavailable Payers Payer Name Policy Type Policy Number Effective Date Expiration Date S [place] [facility] [id number] 2017 MEDICARE GOLD 00:00:00 [facility] SECURE [id number] 2021 HORIZONS 00:00:00 MEDICARE PART A \\T\\ [id number] B - MEDICARE WELLMED DUAL [id number] COMPLETE SNP [facility] MEDIGAP-GENERIC - [id number] GENERIC PAYOR Problems Condition Condition Condition Status [...] different from the original. ICD10 Diagnosis Term Dependency Program Director Utility Surgical Surgical Disease Active 2008-08 Unive [...] the (luts) (luts) original. ICD10 Diagnosis Term Dependency Program Director Utility Fasciitis Fasciitis Disease Active Overview: Univers 4-23 Formattin ity of 00:00: g of this [place] 00 note Medical might be Branch different from the original. ICD10 Diagnosis Term Dependency Program Director Utility Arthropath Arthropath Disease Active Overview : Univers y y 4- Formattin ity of associated associated 00:00: g of this [place] with with 00 note Medical another another might be Branch systemic systemic different disease disease from the original. ICD10 Diagnosis Term Dependency Program Director Utility Degenerati Degenerati Disease Active Overview : [...] from the original. left nephrecto my in [id number] Diagnosis Term Dependency Program Director Utility Essential Essential Disease Active Overview: Univers hypertensi hypertensi Formattin ity of on on g of this [place] note Medical might be Branch different from the original. ICD10 Diagnosis Term Dependency Program Director Utility Backache Backache Disease Active Overview: Un bib Formattin ity of g of this [place] note Medical might be Branch different from the original. back surgeries in , [id number] Diagnosis Term Dependency Program Director Utility Hip joint Hip joint Disease Active Overview: Univers replacemen replacemen Formattin ity of t by other t by other g of this [place] means means note Medical might be Branch different from the original. B/L Asbestosis Asbestosis Disease Active Overview : Univers Formattin ity of g of this [place] note Medical might be Branch different from the original. ICD10 Diagnosis Term Dependency Program Director Utility Gout Gout Disease Active Overview: Univer s Formattin ity of g of this [place] note Medical might be Branch different from the original. ICD10 Diagnosis Term Dependency Program Director Utility HLD HLD Disease Active Overview: Univer s (hyperlipi (hyperlipi Formattin ity of demia) demia) g of this [place] note Medical might be Branch different from the original. ICD10 Diagnosis Term Dependency Program Director Utility Allergies, Adverse Reactions, Alerts Allergy Allergy [...] 0-03 Clear Allergie 00:00: [place] s 00 [facility] No Known DA Active U 2011-08 [facility] 0-03 Clear Allergie 00:00: [place] 00 [facility] NO KNOWN Allergy Active [facility] Social History Social Habit Start Date Stop Date Quantity Comments Source History of Cigarette Smoker Universi ty of tobacco use [place] [facility] Branch Exposure to Not sure University of SARS-CoV-2 [place] Medical (event) Branch History SDOH University o f Alcohol Frequency [facility] edical Branch History SDOH University o f Alcohol Std [place] Medical Drinks Branch History SDOH University o f Alcohol Binge [place] Medic al Branch Tobacco use and 2021-09-10 2021-09-10 Former smokeless [facility] of exposure 00:00:00 00:00:00 tobacco user Medicine Alcohol intake 2019-08-22 2019-08-22 Current [facility] 00:00:00 00:00:00 non-drinker of Hospital alcohol (finding) Alcohol Comment 2008-12-04 2008-12-04 once per month Unive rsity of 00:00:00 00:00:00 [facility] Branch Tobacco Comment 2008-11-22 2008-11-22 states smoked Univer sity of 00:00:00 00:00:00 occasionly for [facility] about 3 years Branch Sex Ass[birth year] [facility] Co llege of 00:00:00 00:00:00 Medicine Smoking Status Start Date Stop Date Source Ex-smoker 2021-09-10 00:00:00 2021-09-10 00:00:00 [facility] mandeep of Medicine Never smoker [facility] Medications Ordered Filled Start Stop Current Ordering Indication Dosage Frequency Signature Comments Components Source Medication Medication Date Date Medication? Clinician (SIG) Name Name metformin Yes 500mg Take 500 [place] rachel (GLUCOPHAGE 2-09 mg by [place] ) 500 MG 13:58: mouth of tablet [...] e clopidogrel Yes 75mg Take 75 mg [facility] (PLAVIX) 75 2-09 by mouth Alyssa ege MG Tablet 13:58: daily. of 52 Medicin e indomethaci Yes 25mg Take 25 mg [facility] n (INDOCIN) 2-09 by mouth 3 Co llege 25 MG 13:58: times of capsule 52 daily. Medicin e Aspirin Yes 81mg Take 81 mg [place] (ASPIR-LOW) 2-09 by mouth Alyssa ege 81 MG 13:58: once. of tablet 52 Medicin e Cyanocobala Yes Take by Jayy gomez min (B-12) 2-09 mouth. [place] 2500 MCG 13:58: of TABS 52 Medicin e Ascorbic Yes Take by [place] Acid 2-09 mouth. [place] (VITAMIN C) 13:58: of 500 MG CAPS 52 Medicin e Ferrous Yes Take by Jaren Sulfate 2-09 mouth. [place] (IRON) 325 13:58: of (65 Fe) MG [...] atorvastati 2020-08 Yes 80mg Take 80 mg [facility] n (LIPITOR) 2-13 by mouth [...] 00 DAILY Medical Branch PANTOPRAZOL 2020-08 Yes [id number] 40mg TAKE 1 Univers E 40 mg EC 0-11 TABLET BY ity of tablet 00:00: MOUTH [place] 00 DAILY Medical Branch PANTOPRAZOL 2020-08 Yes [id number] 40mg TAKE 1 Univers E 40 mg EC 0-11 TABLET BY ity of tablet 00:00: MOUTH [place] 00 DAILY Medical Branch PANTOPRAZOL 2020-08 Yes [id number] 40mg TAKE 1 Univers E 40 mg [...] 03/31/21 at 2115, STAT amLODIPine 2020- No [id number] 10mg Take 1 Univers 10 mg 7-29 10-28 tablet by ity of tablet 00:00: 04:59 mouth [place] 00 :00 daily for Medical 90 days. Branch amLODIPine 2020- No [id number] 10mg Take 1 Univers 10 mg 7-29 10-28 tablet by ity of tablet 00:00: 04:59 mouth [place] 00 :00 daily for Medical 90 days. Branch amLODIPine 2020- No [id number] 10mg Take 1 Univers 10 mg 7-29 10-28 tablet by ity of tablet 00:00: 04:59 mouth [place] 00 :00 daily for Medical 90 days. Branch amLODIPine 2020- No [id number] 10mg Take 1 Univers 10 mg 7-29 10-28 tablet by ity of tablet 00:00: 04:59 mouth [place] 00 :00 daily for Medical 90 days. Branch amLODIPine 2020- No [id number] 10mg Take 1 Univers 10 mg 7-29 10-28 tablet by ity of tablet 00:00: 04:59 mouth [place] 00 :00 daily for Medical 90 days. Branch amLODIPine 2020- No [id number] 10mg Take 1 Univers 10 mg 7-29 [...] Units ity of (LEVEMIR 23:25: [facility] U-100 24 skin 2 Medical INSULIN SC) (two) Branch times daily before breakfast and dinner. atorvastati Yes 80mg Take 80 mg Univers n 80 mg 7-28 by mouth ity of tablet 23:25: at [place] [address] bedtime. Medical Branch metFORMIN Yes 500mg Take 500 Uni vers 500 mg 7-28 mg by ity of tablet 23:25: mouth 2 [place] [address] (two) Medical times Branch daily with meals. clopidogreL Yes 75mg Take 75 mg Univers (PLAVIX) 75 7-28 by mouth ity of mg tablet 23:25: daily. [place] [address] Medical Branch gabapentin Yes 600mg Take 600 [...] by mouth ity of tablet 23:25: at [place] [address] bedtime. Medical Branch metFORMIN 0 Yes 500mg Take 500 Uni vers 500 mg 7-28 mg by ity of tablet 23:25: mouth 2 [place] 24 (two) Medical times Branch daily with meals. clopidogreL 2020-0 Yes 75mg Take 75 mg Univers (PLAVIX) 75 7-28 by mouth ity of mg tablet 23:25: daily. [place] [address] Medical Branch gabapentin 0 Yes 600mg Take [...] Units ity of (LEVEMIR 23:25: under the [facility] s U-100 24 skin 2 Medical INSULIN SC) (two) Branch times daily before breakfast and dinner. atorvastati Yes 80mg Take 80 mg Univers n 80 mg 7-28 by mouth ity of tablet 23:25: at [place] [address] bedtime. Medical Branch metFORMIN Yes 500mg Take 500 Uni vers 500 mg 7-28 mg by ity of tablet 23:25: mouth 2 [place] [address] (two) Medical times Branch daily with meals. clopidogreL Yes 75mg Take 75 mg Univers (PLAVIX) 75 7-28 by mouth ity of mg tablet 23:25: daily. [place] [address] Medical Branch gabapentin Yes 600mg Take 600 [...] Units ity of (LEVEMIR 23:25: under the [facility] s U-100 24 skin 2 Medical INSULIN SC) (two) Branch times daily before breakfast and dinner. atorvastati 0 Yes 80mg Take 80 mg Univers n 80 mg 7-28 by mouth ity of tablet 23:25: at [place] [address] bedtime. Medical Branch metFORMIN 2020-0 Yes 500mg Take 500 Uni vers 500 mg 7-28 mg by ity of tablet 23:25: mouth 2 [place] [address] (two) Medical times Branch daily with meals. clopidogreL 2020-0 Yes 75mg Take 75 mg Univers (PLAVIX) 75 7-28 by mouth ity of mg tablet 23:25: daily. [place] [address] Medical Branch gabapentin 2020-0 Yes 600mg Take 600 Un bib 300 mg 7-28 mg by ity of capsule 23:25: mouth 3 [place] [address] (three) Medical times Branch daily. venlafaxine 2020-0 Yes 112.5mg Take 112.5 Univers XR 37.5 mg 7-28 mg by ity of 24 hr 23:25: mouth [facility] 24 daily with Medica l breakfast. Branch baclofen 5 Yes 10mg Take 10 mg U nivers mg tablet 7-28 by mouth 2 ity of 23:25: (two) [place] [address] times [facility] daily as Branch needed (back pain). insulin 0 Yes 20U inject 20 Unive rs detemir 7-28 Units ity of (LEVEMIR 23:25: under the [facility] [employer] s U-100 24 skin 2 Medical INSULIN SC) (two) Branch times daily before breakfast and dinner. atorvastati 0 Yes 80mg Take 80 mg Univers n 80 mg 7-28 by mouth ity of tablet 23:25: at [place] [address] bedtime. Medical Branch metFORMIN 2020-0 Yes 500mg Take 500 Uni vers 500 mg 7-28 mg by ity of tablet 23:25: mouth 2 [place] [address] (two) Medical times Branch daily with meals. clopidogreL 2020-0 Yes 75mg Take 75 mg Univers (PLAVIX) 75 7-28 by mouth ity of mg tablet 23:25: daily. [place] [address] Medical Branch gabapentin 2020-0 Yes 600mg Take 600 Un bib 300 mg 7-28 mg by ity of capsule 18:25: mouth 3 [place] 24 (three) Medical times Branch daily. venlafaxine Yes 112.5mg Take 112.5 Univers XR 37.5 mg 7-28 mg by ity of 24 hr 18:25: mouth [place] capsule 24 daily with Medica l breakfast. Branch baclofen 5 Yes 10mg Take 10 mg U nivers mg tablet 7-28 by mouth 2 ity of 18:25: (two) [place] 24 times Medical daily as Branch needed (back pain). insulin 0 Yes 20U inject 20 Unive rs detemir 7-28 Units ity of (LEVEMIR 18:25: [place] the [place] U-100 24 skin 2 Medical INSULIN SC) (two) Branch times daily before breakfast and dinner. atorvastati Yes 80mg Take 80 mg Univers n 80 mg 7-28 by mouth ity of tablet 18:25: at [place] [address] bedtime. Medical Branch metFORMIN Yes 500mg Take 500 Uni vers 500 mg 7-28 mg by ity of tablet 18:25: mouth 2 [place] 24 (two) Medical times Branch daily with meals. clopidogreL Yes 75mg Take 75 mg Univers (PLAVIX) 75 7-28 by mouth ity of mg tablet 18:25: daily. [place] [address] Medical Branch gabapentin Yes 600mg Take 600 [...] by mouth 2 ity of 18:25: (two) [place] 24 times Medical daily as Branch needed (back pain). insulin 0 Yes 20U inject 20 Unive rs detemir 7-28 Units ity of (LEVEMIR 18:25: [place] U-100 24 skin 2 Medical INSULIN SC) (two) Branch times daily before breakfast and dinner. atorvastati Yes 80mg Take 80 mg Univers n 80 mg 7-28 by mouth ity of tablet 18:25: at [place] [address] bedtime. Medical Branch metFORMIN Yes 500mg Take 500 Uni vers 500 mg 7-28 mg by ity of tablet 18:25: mouth 2 [place] [address] (two) Medical times Branch daily with meals. clopidogreL Yes 75mg Take 75 mg Univers (PLAVIX) 75 7-28 by mouth ity of mg tablet 18:25: daily. [place] [address] Medical Branch gabapentin Yes 600mg Take 600 [...] by mouth 2 ity of 18:25: (two) [place] [address] times Medical daily as Branch needed (back pain). insulin Yes 20U inject 20 Unive rs detemir 7-28 Units ity of (LEVEMIR 18:25: under [place] U-100 24 skin 2 Medical INSULIN SC) (two) Branch times daily before breakfast and dinner. atorvastati Yes 80mg Take 80 mg Univers n 80 mg 7-28 by mouth ity of tablet 18:25: at [place] [address] bedtime. Medical Branch metFORMIN Yes 500mg Take 500 Uni vers 500 mg 7-28 mg by ity of tablet 18:25: mouth 2 [place] [address] (two) Medical times Branch daily with meals. clopidogreL Yes 75mg Take 75 mg Univers (PLAVIX) 75 7-28 by mouth ity of mg tablet 18:25: daily. [place] [address] Medical Branch desipramine 2020-2020- No 10mg Take [...] 0900, Until Discontinu ed, Routine sennosides Yes [id number] 8.6mg Take 1 Univers 8.6 mg 7-28 tablet by ity of tablet 00:00: mouth 2 [place] 00 (two) Medical times Branch daily. polyethylen Yes [id number] 17g Take 1 Univers e glycol 7-28 Packet by ity of 3350 17 00:00: mouth 2 [place] gram powder 00 (two) Medical times Branch daily. pantoprazol Yes [id number] 40mg Take 1 Univers e 40 mg EC 7-28 tablet by ity of tablet 00:00: mouth [place] 00 daily. Medical Branch bisacodyL Yes [id number] 10mg Insert 1 Univers 10 mg 7-28 Suppositor ity of suppository 00:00: y [place] 00 rectum at Medical bedtime. Branch sennosides Yes [id number] 8.6mg Take 1 Univers 8.6 mg 7-28 tablet by ity of tablet 00:00: mouth 2 [place] 00 (two) Medical times Branch daily. polyethylen Yes [id number] 17g Take 1 Univers e glycol 7-28 Packet by ity of 3350 17 00:00: mouth 2 [place] gram powder 00 (two) Medical times Branch daily. pantoprazol Yes [id number] 40mg Take 1 Univers e 40 mg EC 7-28 tablet by ity of tablet 00:00: mouth [place] 00 daily. Medical Branch bisacodyL Yes [id number] 10mg Insert 1 Univers 10 mg 7-28 Suppositor ity of suppository 00:00: y into [place] 00 rectum at Medical bedtime. Branch sennosides Yes [id number] 8.6mg Take 1 Univers 8.6 mg 7-28 tablet by ity of tablet 00:00: mouth 2 (two) Medical times Branch daily. polyethylen Yes [id number] 17g Take 1 Univers e glycol 7-28 Packet by ity of 3350 17 00:00: mouth 2 [place] gram powder (two) Medical times Branch daily. pantoprazol Yes [id number] 40mg Take 1 Univers e 40 mg EC 7-28 tablet by ity of tablet 00:00: mouth 00 daily. Medical Branch bisacodyL Yes [id number] 10mg Insert 1 Univers 10 mg 7-28 Suppositor ity of suppository 00:00: y into [place] 00 rectum at Medical bedtime. Branch sennosides Yes [id number] 8.6mg Take 1 Univers 8.6 mg 7-28 tablet by ity of tablet 00:00: mouth (two) Medical times Branch daily. polyethylen Yes [id number] 17g Take 1 Univers e glycol 7-28 Packet by ity of 3350 17 00:00: mouth 2 [place] gram powder (two) Medical times Branch daily. pantoprazol Yes [id number] 40mg Take 1 Univers e 40 mg EC 7-28 tablet by ity of tablet 00:00: mouth 00 daily. Medical Branch bisacodyL Yes [id number] 10mg Insert 1 Univers 10 mg 7-28 Suppositor ity of suppository 00:00: y into [place] 00 rectum at Medical bedtime. Branch sennosides Yes [id number] 8.6mg Take 1 Univers 8.6 mg 7-28 tablet by ity of tablet 00:00: mouth 2 (two) Medical times Branch daily. polyethylen Yes [id number] 17g Take 1 Univers e glycol 7-28 Packet by ity of 3350 17 00:00: mouth 2 [place] gram powder 00 (two) Medical times Branch daily. pantoprazol Yes [id number] 40mg Take 1 Univers e 40 mg EC 7-28 tablet by ity of tablet 00:00: mouth [place] 00 daily. Medical Branch bisacodyL Yes [id number] 10mg Insert 1 Univers 10 mg 7-28 Suppositor ity of suppository 00:00: y into [place] 00 rectum at Medical bedtime. Branch sennosides Yes [id number] 8.6mg Take 1 Univers 8.6 mg 7-28 tablet by ity of tablet 00:00: mouth 2 (two) Medical times Branch daily. polyethylen Yes [id number] 17g Take 1 Univers e glycol 7-28 Packet by ity of 3350 17 00:00: mouth 2 [place] gram powder (two) Medical times Branch daily. bisacodyL Yes [id number] 10mg Insert 1 Univers 10 mg 7-28 Suppositor ity of suppository 00:00: y into [place] 00 rectum at Medical bedtime. Branch sennosides Yes [id number] 8.6mg Take 1 Univers 8.6 mg 7-28 tablet by ity of tablet 00:00: mouth 2 (two) Medical times Branch daily. polyethylen Yes [id number] 17g Take 1 Univers e glycol 7-28 Packet by ity of 3350 17 00:00: mouth 2 [place] gram powder (two) Medical times Branch daily. bisacodyL Yes [id number] 10mg Insert 1 Univers 10 mg 7-28 Suppositor ity of suppository 00:00: y into [place] 00 rectum at Medical bedtime. Branch sennosides Yes [id number] 8.6mg Take 1 Univers 8.6 mg 7-28 tablet by ity of tablet 00:00: mouth 2 (two) Medical times Branch daily. polyethylen Yes [id number] 17g Take 1 Univers e glycol 7-28 Packet by ity of 3350 17 00:00: mouth 2 [place] gram powder 00 (two) Medical times Branch daily. bisacodyL Yes [id number] 10mg Insert 1 Univers 10 mg 02-26 Suppositor ity of suppository 00:00: y into [place] 00 rectum at Medical bedtime. Branch pantoprazol 2020- No [id number] 40mg Take 1 Univers e 40 mg EC 02-26 10-11 tablet by ity of tablet 00:00: 00:00 mouth [place] 00 :00 daily. Medical Branch sulfamethox 2020- No [id number] 1{tbl} Take 1 Univers azole-trime - 08-11 tablet by it y of thoprim 00:00: 04:59 mouth 2 [place] 800-160 mg 00 :00 (two) Medical per tablet times Branch daily for 13 days. sulfamethox 2020- No [id number] 1{tbl} Take 1 Univers azole-trime 02-26 08-11 tablet by it y of thoprim 00:00: 04:59 mouth 2 [place] 800-160 mg 00 :00 (two) Medical per tablet times Branch daily for 13 days. clonazePAM Yes .5mg 0.5 mg, Univ ers (KLONOPIN) 02-25 Oral, ity of tablet 0.5 19:45: DAILY, [place] mg 00 First dose Medical on [facility] 02/25/21 at 1445, Until Discontinu ed, Routine amLODIPine 2020- No [facility]mg 5 [facility], [facility] 02-25 0727 Oral, ity of tablet 5 mg 19:41: 20:59 ONCE, 1 [place] 00 :[place] dose, [facility] 02/25/21 at Branch 1445, Routine clopidogreL Yes 75mg 75 mg, [facility] ers (PLAVIX) 02-25 Oral, ity of tablet 75 14:00: DAILY, [place] mg 00 First dose Medical on [facility] 02/25/21 at 0900, Until Discontinu ed, Routine insulin Yes 20U 20 Units, [facility] detemir 02-25 Subcutaneo ity of U-100 12:30: us, BIDAC, [place] (LEVEMIR 00 First dose Medic al U-[facility] on [facility] INSULIN) 02/25/21 at injection 0730, 20 Units Until Discontinu ed
Rest ricted - To be dispensed only to: Continuati on from home Sliding Yes Subcutaneo Univ ers Scale 02-25 us, TID ity of Insulin - 02:00: MEALS+HS, [place] Lispro 00 First dose Medical (HumaLOG) + (after [place] [facility] last Testing modificati on) on [facility] 02/24/21 at 2100, Until Discontinu ed, Routine atorvastati Yes 80mg 80 mg, Univ ers n (LIPITOR) 02-25 Oral, QHS, it y of tablet 80 02:00: First dose [place] mg 00 on [facility] 02/24/21 at [place] 2100, Until Discontinu ed, Routine gabapentin Yes 600mg 600 mg, Uni vers (NEURONTIN) 02-25 Oral, TID, it y of capsule 600 01:00: First dose [place] mg 00 on [facility] 02/24/21 at [place] 2000, Until Discontinu ed, Routine sulfamethox Yes 1{tbl} 1 tablet, [facility] azole-trime 02-25 Oral, BID, it y of thoprim 01:00: First [place] (BACTRIM 00 on [facility] DS) 800-160 02/24/21 at Br anch mg per 1999, tablet 1 Until tablet Discontinu ed, EDIL
Re ason for Anti-Infec tive: Documented Infection< br>Documen elaine Infection Site: Urine
D uration of Therapy: 7 days baclofen Yes 10mg 10 mg, Univers (LIORESAL) 02-24 Oral, ity of tablet 10 22:29: BIDPRN, [place] mg 21 Starting Medical [facility] 02/24/21 at 1729, Until Discontinu ed, Routine, back pain famotidine 2020- No 20mg 20 mg, Univ ers (PEPCID AC) 02-24 Oral, ity of tablet 20 15:00: 14:19 ONCE, 1 [place] mg 00 :00 dose, [facility] 02/24/21 at [place] 1000, Routine amLODIPine 2020- No 5mg 5 mg, Unive rs (NORVASC) 02-24 Oral, ity of tablet 5 mg 14:00: 19:41 DAILY, [place] 00 :51 First dose Medical on Mon Branch 02/24/21 at 0900, Until Discontinu ed, [...] Q6H ABX, Medical gram/50 mL First dose [facility] Piggyback (after RTU 3.375 g last reorder) on Wed02/21/21 at 0930, Until Discontinu ed, 50 mL
Reas on for Anti-Infec tive: Documented Infection< br>Documen elaine Infection Site: Urine
D uration of Therapy: Other (see Comments) magnesium 2020-2020- No 2000mg 2,000 mg, Univers sulfate in 02-21 IV ity of water 2 14:15: 16:54 Infusion, [place] gram/50 mL 00 :00 ONCE, 1 Medica l (4 %) 2,000 dose, Fri Bra nch mg 02/21/21 at piggyback 0915 pantoprazol [...] 1,000 mL 00 :00 IV Medical Piggyback, [place] ONCE, 1 dose, Wed02/21/21 at 0515, STAT cefTRIAXone 2020- No 1000mg 1,000 mg, Univers (ROCEPHIN) 02-21 IV ity of 1,000 mg in 10:02: 13:18 Piggyback, [place] NaCl 0.9% 00 :11 Q24H ABX, Medic al (NS) 50 mL First dose Bra [facility] MINI-BAG on Wed02/21/21 at 0515, Until Discontinu [...] 1,000 mL 00 :20 s, [facility] , Starting Wed02/21/21 at 0200, Until Wed02/21/21 at 1201, Routine clindamycin 2020- No 600mg 600 mg, IV Univers (CLEOCIN) 02-21 Piggyback, ity of injection 03:15: 03:15 ONCE, 1 [place] 600 mg 00 :00 dose, [facility] 02/20/21 at Branch 2215, EDIL
Re ason for Anti-Infec tive: Documented Infection< br>Documen elaine Infection Site: Urine
D uration of Therapy: Other (see Comments)< br>Restric elaine use approved by: [employer] PROVIDER iopamidol 2020- No [id number] 120mL 120 mL, Univers (ISOVUE 02-21 Intravenou ity o f 370-500 mL) 02:33: 02:33 s, ONCE, 1 [place] injection 00 :00 dose, [facility] Medic al 120 mL 7/22/21 at Branch 2145, Routine NaCl 0.9% 2020-0 2021- No 1000mL at 999 Uni vers (NS) bolus 02-21 07-23 mL/hr, ity of infusion 02:00: 05:10 1,000 mL, [place] 1,000 mL 00 :00 IV Medical Piggyback, Branch ONCE, 1 dose, [place] 02/20/21 at 2100, STAT clonazePAM 2020-0 Yes [id number] .5mg Take 1 Un bib 0.5 mg 6-18 tablet by ity of tablet 00:00: mouth 2 (two) Medical times [place] daily as needed (anxiety). amLODIPine 2020-0 Yes [id number] 5mg Take 1 U nivers 5 mg tablet 6-18 tablet by ity of 00:00: mouth [place] 00 daily. [facility] Branch carvediloL 2020-0 Yes [id number] 12.5mg Take 1 Univers 12.5 mg 6-18 tablet by ity of tablet 00:00: mouth 2 (two) Medical [facility] daily with meals. NaCl 0.9% 2020-0 Yes [id number] 2000mg Infuse U nivers (NS) SolP 6-18 2,000 mg ity of 100 mL with 00:00: every 8 [place] ceFAZolin 00 (eight) Medical 10 gram hours. Branch SolR 2,000 mg clonazePAM 2020-0 Yes [id number] .5mg Take 1 Un bib 0.5 mg 6-18 tablet by ity of tablet 00:00: mouth 2 00 (two) Medical [facility] daily as needed (anxiety). amLODIPine 2020-0 Yes [id number] 5mg Take 1 U nivers 5 mg tablet 6-18 tablet by ity of 00:00: mouth [place] 00 daily. Medical Branch carvediloL 2020-0 Yes [id number] 12.5mg Take 1 Univers 12.5 mg 6-18 tablet by ity of tablet 00:00: mouth 2 (two) Medical [facility] daily with meals. NaCl 0.9% 2020-0 Yes [id number] 2000mg Infuse U nivers (NS) SolP 6-18 2,000 mg ity of 100 mL with 00:00: every 8 [place] ceFAZolin 00 (eight) Medical 10 gram hours. Branch SolR 2,000 mg clonazePAM 2020-0 Yes [id number] .5mg Take 1 Un bib 0.5 mg 6-18 tablet by ity of tablet 00:00: mouth (two) Medical times Branch daily as needed (anxiety). amLODIPine 1-0 Yes [id number] 5mg Take 1 U nivers 5 mg tablet 6-18 tablet by ity of 00:00: mouth 00 daily. Medical Branch carvediloL 2020-0 Yes [id number] 12.5mg Take 1 Univers 12.5 mg 6-18 tablet by ity of tablet 00:00: mouth (two) Medical times Branch daily with meals. NaCl 0.9% 1-0 Yes [id number] 2000mg Infuse U nivers (NS) SolP 6-18 2,000 mg ity of 100 mL with 00:00: every 8 [place] ceFAZolin 00 (eight) Medical 10 gram hours. Branch SolR 2,000 mg clonazePAM 1-0 Yes [id number] .5mg Take 1 Un bib 0.5 mg 6-18 tablet by ity of tablet 00:00: mouth (two) Medical times Branch daily as needed (anxiety). amLODIPine 2020-0 Yes [id number] 5mg Take 1 U nivers 5 mg tablet 6-18 tablet by ity of 00:00: mouth 00 daily. Medical Branch carvediloL 2020-0 Yes [id number] 12.5mg Take 1 Univers 12.5 mg 6-18 tablet by ity of tablet 00:00: mouth (two) Medical times Branch daily with meals. NaCl 0.9% 1-0 Yes [id number] 2000mg Infuse U nivers (NS) SolP 6-18 2,000 mg ity of 100 mL with 00:00: every 8 [place] as ceFAZolin 00 (eight) Medical 10 gram hours. Branch SolR 2,000 mg clonazePAM 2021-0 Yes [id number] .5mg Take 1 Un bib 0.5 mg 6-18 tablet by ity of tablet 00:00: mouth (two) Medical times Branch daily as needed (anxiety). clonazePAM 2021-0 Yes [id number] .5mg Take 1 Un bib 0.5 mg 6-18 tablet by ity of tablet 00:00: mouth (two) Medical times Branch daily as needed (anxiety). clonazePAM 2021-0 Yes [id number] .5mg Take 1 Un bib 0.5 mg 6-18 tablet by ity of tablet 00:00: mouth 2 (two) Medical times Branch daily as needed (anxiety). clonazePAM 2021-0 Yes [id number] .5mg Take 1 Un bib 0.5 mg 6-18 tablet by ity of tablet 00:00: mouth (two) Medical times Branch daily as needed (anxiety). clonazePAM 2021-0 Yes [id number] .5mg Take 1 Un bib 0.5 mg 6-18 tablet by ity of tablet 00:00: mouth (two) Medical times Branch daily as needed (anxiety). clonazePAM 2021-0 Yes [id number] .5mg Take 1 Un bib 0.5 mg 6-18 tablet by ity of tablet 00:00: mouth (two) Medical times Branch daily as needed (anxiety). clonazePAM 2021-0 Yes [id number] .5mg Take 1 Un bib 0.5 mg 6-18 tablet by ity of tablet 00:00: mouth (two) Medical times Branch daily as needed (anxiety). clonazePAM 2021-0 Yes [id number] .5mg Take 1 Un bib 0.5 mg 6-18 tablet by ity of tablet 00:00: mouth (two) Medical times Branch daily as needed (anxiety). amLODIPine 2020-2020- No [id number] 5mg Take 1 Univers 5 mg tablet 6-18 - tablet by it y of 00:00: 00:00 mouth [place] 00 :00 daily. Medical Branch carvediloL 2020-2020- No [id number] 12.5mg Take 1 Univers 12.5 mg 6-18 - tablet by ity of tablet 00:00: 00:00 mouth 2 [place] 00 :00 (two) Medical times Branch daily with meals. NaCl 0.9% 2020- No [id number] 2000mg Infuse Univers (NS) SolP 6-18 07-28 2,000 mg ity o f 100 mL with 00:00: 00:00 every 8 [place] ceFAZolin 00 :00 (eight) Medical 10 gram hours. Branch SolR 2,000 mg Humulin R Humulin R 2020-0 Yes Bryant 5 units Common 8-07 [place] PRN for BG Spirit 00:00: >200 1 hr - [facility] [address] [facility] baclofen 2020-0 Yes [id number] 10mg Q.5D Take 1 Meth ivette (LIORESAL) 3-11 tablet (10 st 10 MG 00:00: mg total) Hospita tablet 00 by mouth 2 l (two) times a day. insulin 2020-0 Yes Q.5D Inject Methodi lispro 1-[address] (HumaLOG) 15:04: skin 2 Hospit a 100 unit/mL 33 (two) l injection times a day before meals. (PER SLIDING SCALE) gabapentin 2020-0 Yes 600mg Q.[id number] Take 600 Methodi (NEURONTIN) 1-21 [id number] mg by s t 600 mg 15:04: 3D mouth 3 Hospita tablet 33 (three) l times a day. tamsulosin 2020-0 Yes .4mg QD Take 0.4 Met hodi (FLOMAX) 1-[address] 0.4 mg 15:04: mouth Hospita capsule,ext 33 every l ended morning. release 24hr metFORMIN 2020-0 Yes 500mg Q.[id number] Take 500 Methodi (GLUCOPHAGE 1-21 [id number] mg by s t ) 500 mg [...] mg tablet, 00 day. l sublingual Pen Bussey Pen Bussey 2018-08 Yes Bryant 1 pen Common 08-12 [facility] needle Spirit 00:00: - [facility] Lancets Lancets 2018-08 Yes Bryant 1 lancet C ommon 11 [facility] Spirit 00:00: - [facility] desipramine Yes 10mg QD Take 10 mg Methodi (NOPRAMIN) [address] 10 MG 00:00: nightly. Hospita tablet 00 l sotalol Yes 80mg QD Take 80 mg Meth ivette (BETAPACE) 03-[address] 80 MG 00:00: daily. Hospita tablet 00 l LEVEMIR Yes Methodi FLEXTOUCH 731 st U-100 00:00: Hospita INSULN 100 00 [...] One Touch Yes Bryant 1 strip to Common Ultra Test Ultra Test 12-01 [facility] test blood Spirit Strips Strips 00:00: glucose - [facility] sertraline 2018- Yes 1{tbl} QD Take 1 Met hodi (ZOLOFT) 3-[address] 100 MG 00:00: mouth Hospita tablet 00 daily. l Blood Blood 2017-08 Yes Rbyant as Common Glucose Glucose 2-21 [facility] directed Spir it Test Strip Test Strip 00:00: (DISPENSE - CHI [address] STRIPS OF [facility]) [facility] rosezol Yes TK 1 T PO U nivers e 10 mg 2-09 QD ity of tablet 00:00: [place] [facility] ARIPiprazol Yes TK 1 T PO U nivers e 10 mg 2-09 QD ity of tablet 00:00: [place] [facility] ARIPiprazol Yes TK 1 T PO U nivers e 10 mg 2-09 QD ity of tablet 00:00: [place] [facility] ARIPiprazol Yes TK 1 T PO U nivers e 10 mg 2-09 QD ity of tablet 00:00: [place] [facility] ARIPiprazol Yes TK 1 T PO U nivers e 10 mg 2-09 QD ity of tablet 00:00: [place] [facility] ARIPiprazol Yes TK 1 T PO U nivers e 10 mg 2-09 QD ity of tablet 00:00: [place] [facility] ARIPiprazol Yes TK 1 T PO U nivers e 10 mg 2-09 QD ity of tablet 00:00: [place] [facility] ARIPiprazol Yes TK 1 T PO U nivers e 10 mg 2-09 QD ity of tablet 00:00: [place] [facility] ARIPiprazol Yes TK 1 T PO U nivers e 10 mg 2-09 QD ity of tablet 00:00: [place] [facility] ARIPiprazol Yes TK 1 T PO U nivers e 10 mg 2-09 QD ity of tablet 00:00: [place] [facility] ARIPiprazol Yes TK 1 T PO U nivers e 10 mg 2-09 QD ity of tablet 00:00: [place] [facility] ARIPiprazol 2017-0 2020- No TK 1 T PO Univers e 10 mg 2-09 07-28 QD ity of tablet 00:00: 00:00 [place] 00 :00 [facility] triamcinolo 2015-0 Yes [id number] Apply to [facility] 3-05 area(s) 2 ity of acetonide 00:00: (two) [place] (TRIDERM) 00 times Medical 0.1 % cream daily. Branch triamcinolo 2015-0 Yes [id number] Apply to Univers ne 3-05 area(s) 2 ity of acetonide 00:00: (two) [place] (TRIDERM) 00 times Medical 0.1 % cream daily. Branch triamcinolo 2015-0 Yes [id number] Apply to Univers ne 3-05 area(s) 2 ity of acetonide 00:00: (two) [place] (TRIDERM) 00 times Medical 0.1 % cream daily. Branch triamcinolo 2014-0 Yes [id number] Apply to Univers ne 3-05 area(s) 2 ity of acetonide 00:00: (two) [place] (TRIDERM) 00 times Medical 0.1 % cream daily. Branch triamcinolo 2014-0 Yes [id number] Apply to Univers ne 3-05 area(s) 2 ity of acetonide 00:00: (two) [place] (TRIDERM) 00 times Medical 0.1 % cream daily. Branch triamcinolo 2014-0 Yes [id number] Apply to Univers ne 3-05 area(s) 2 ity of acetonide 00:00: (two) [place] (TRIDERM) 00 times Medical 0.1 % cream daily. Branch triamcinolo 2014-0 Yes [id number] Apply to Univers ne 3-05 area(s) 2 ity of acetonide 00:00: (two) [place] (TRIDERM) 00 times Medical 0.1 % cream daily. Branch triamcinolo 2014-0 Yes [id number] Apply to Univers ne 3-05 area(s) 2 ity of acetonide 00:00: (two) [place] (TRIDERM) 00 times Medical 0.1 % cream daily. Branch triamcinolo 2014-0 Yes [id number] Apply to Univers ne 3-05 area(s) 2 ity of acetonide 00:00: (two) [place] (TRIDERM) 00 times Medical 0.1 % cream daily. Branch triamcinolo 2014-0 Yes [id number] Apply to Univers ne 3-05 area(s) 2 ity of acetonide 00:00: (two) [place] (TRIDERM) 00 times Medical 0.1 % cream daily. [facility] [id number] Apply to [facility] 10-04 area(s) 2 ity of acetonide 00:00: (two) [place] (TRIDERM) 00 times Medical 0.1 % cream daily. Victor Manuel price 202- No [id number] Apply to [facility] 10-04 07-28 area(s) 2 ity of acetonide 00:00: 00:00 (two) [place] (TRIDERM) 00 :00 times Medical 0.1 % cream daily. Branch [id number] Yes Bryant as C ommon [facility] directed [facility] Aripiprazol Aripiprazol Yes Bryant 1 tablet Common e e Loera [facility] Levemir Levemir Yes Bryant 20 units Com mon FlexTouch FlexTouch [facility] Spir [facility] Atorvastati Atorvastati Yes Bryant 1 tablet Common n Calcium n Calcium [facility] Spir [facility] Gemfibrozil Gemfibrozil Yes Bryant 1 tablet Common Loera [facility] Baclofen Baclofen Yes Bryant 1 tablet C ommon [facility] with food Spirit or milk - [facility] Sotalol HCl Sotalol HCl Yes Bryant 1 tablet Common Loera [facility] Aspir-Low Aspir-Low Yes Bryant 1 tablet Common Loera [facility] MetFORMIN MetFORMIN Yes Bryant 1 tablet Common HCl ER HCl ER [facility] with Spirit evening - CHI meal [facility] OneTouch OneTouch Yes Bryant USE 1 Comm on Ultra Ultra [facility] STRIP TO Spirit TEST BLOOD - CHI GLUCOSE [facility] Venlafaxine Venlafaxine Yes Bryant 1 capsule Common HCl ER HCl ER [facility] with food [facility] t [facility] Gabapentin Gabapentin Yes Bryant as C ommon [facility] directed [facility] Plavix Plavix Yes Bryant TAKE 1 Common [facility] TABLET BY Spirit MOUTH - CHI DAILY [facility] MetFORMIN MetFORMIN Yes Bryant TAKE 1 C ommon HCl ER HCl ER [facility] TABLET BY Spiri t MOUTH - CHI TWICE [facility] Indocin Indocin Yes Bryant 1 capsule Co mmon [place] with food Spirit or milk - [facility] Desipramine Desipramine Yes Bryant 1 tablet Common HCl HCl [facility] D3 Adult D3 Adult Yes Bryant 1 tablet C ommon [facility] Immunizations Ordered Filled Immunization Date Status Comments Sour e Immunization Name Name Pneumococcal 2011-08-31 Completed [...] 2011-08-31 Completed University o f Polysaccharide, 00:00:00 [place] Med ical PPSV23 (PNEUMOVAX) Branch Vital Signs Vital Name Observation Time Observation Value Comments Source Systolic blood 2021-09-10 19:49:00 116 mm[Hg] [facility] Diastolic blood 2021-09-10 19:49:00 76 mm[Hg] [facility] Heart rate 2021-09-10 19:49:00 65 /min [facility] Body temperature 2021-09-10 19:49:00 37 Mitzi [facility] Respiratory rate 2021-09-10 19:49:00 16 /min [facility] Body height 2021-09-10 19:49:00 160 cm [facility] Body weight 2021-09-10 19:49:00 65.772 kg [facility] BMI 2021-09-10 19:49:00 25.69 kg/m2 [facility] Systolic blood 2021-04-01 05:00:00 127 mm[Hg] Univer sity of pressure [facility] Diastolic blood 2021-04-01 05:00:00 60 mm[Hg] Unive rsity of [facility] Heart rate 2021-04-01 05:00:00 62 /min [facility] Respiratory rate 2021-04-01 05:00:00 17 /min [facility] Oxygen saturation in 2021-04-01 05:00:00 98 /min [facility] Arterial blood by [facility] Pulse oximetry Branch Body temperature 2021-04-01 04:00:00 36.72 Mitzi [facility] Body weight 2021-04-01 00:54:00 63.504 kg Universi [...] /min University of Arterial blood by [place] Uniregistry maria esther Pulse oximetry Branch Body height [...] 98 /min University of Arterial blood by Starteed maria sether Pulse oximetry Branch Diastolic blood 2019-02-23 20:43:00 86 mm[Hg] [...] 25.52 kg/m2 Universi ty of [place] [facility] [place] Oxygen saturation in 2019-02-23 20:43:00 97 /min University of Arterial blood by [facility] Pulse oximetry Branch Systolic blood 2019-02-23 20:43:00 146 mm[Hg] Univer sity [facility] [place] Diastolic blood 2019-02-23 20:43:00 86 mm[Hg] [facility] Heart rate 2019-02-23 20:43:00 66 /min Universi ty of [facility] Body temperature 2019-02-23 20:43:00 36.61 Mitzi [facility] [place] [facility] [place] Respiratory rate 2019-02-23 20:43:00 12 /min [facility] ersity of [place] [facility] Body height 2019-02-23 20:43:00 162.6 cm Universi ty [facility] [place] [facility] Body weight 2019-02-23 20:43:00 67.45 kg Universi ty [facility] [place] [facility] BMI 2019-02-23 20:43:00 25.52 kg/m2 [facility]i ty [facility] [place] [facility] Oxygen saturation in 2019-02-23 20:43:00 97 /min University of Arterial blood by [facility] Pulse oximetry Branch Systolic blood 2019-02-23 20:43:00 146 mm[Hg] [facility] Procedure Date / Time Performing Clinician Source Performed BLOOD CULTURE SCREEN 2021-04-01 02:34:00 Laz Lock [facility] CT HEAD WO CONTRAST 2021-04-01 02:07:16 Laz Lock [facility] of [facility] URINALYSIS 2021-04-01 01:55:00 Laz Lock o [facility] COVID-19 (ID NOW RAPID 2021-04-01 01:45:00 [facility] Medical Branch CBC WITH DIFF 2021-04-01 01:41:00 Lock, Laz [facility] PROTHROMBIN TIME / INR 2021-04-01 01:41:00 Laz Lock [facility] ACTIVATED PARTIAL 2021-04-01 01:41:00 Laz Lock [facility] THRMPLAS RADHA [facility] BLOOD CULTURE SCREEN 2021-04-01 01:38:00 Laz Lock [facility] LIPASE 2021-04-01 01:38:00 Laz Lock [facility] TROPONIN I 2021-04-01 01:38:00 Laz Lock [facility] COMP. METABOLIC PANEL 2021-04-01 01:38:00 Laz Lock [facility] ([id number]) [facility] N-TERMINAL PRO-BNP 2021-04-01 01:38:00 Laz Lock [facility] AC PANEL 21 + LACTIC 2021-04-01 01:37:00 Laz Lock [facility] ACID [facility] Branch NOTICE OF PRIVACY 2021-04-01 00:48:38 Doctor Unassigned, No [facility] PRACTICES Name [facility] CONSENT/REFUSAL FOR 2021-04-01 00:46:04 Doctor Unassigned, No [facility] DIAGNOSIS AND TREATMENT Name Medical Branch REFERRAL- 2021-03-21 05:01:00 Doctor Unassigned, No [facility] REQUEST/RESPONSE Name [facility] POCT GLUCOSE (AUTOMATED) 2021-02-26 22:10:00 [facility] 2021-02-26 17:16:00 [facility] PO[facility]SE (AUTOMATED) 2021-02-26 13:42:00 Etta Mckeon [facility] BASIC METABOLIC PANEL 2021-02-26 10:38:00 [facility] (NA, K, CL, CO2, Medical Branch GLUCOSE, BUN, CREATININE, CA) CBC WITH DIFF 2021-02-26 10:38:00 Lillie Wilkins [facility] POCT GLUCOSE (AUTOMATED) 2021-02-26 02:23:00 Etta Mckeon Un iversity of [place] [facility] POCT GLUCOSE (AUTOMATED) 2021-02-25 21:53:00 Etta Mckeon iversity of [facility] Branch POCT GLUCOSE (AUTOMATED) 2021-02-25 16:05:00 Etta Mckeon Un iversity of [facility] Branch POCT GLUCOSE (AUTOMATED) 2021-02-25 12:38:00 Etta Mckeon iversity of [facility] BASIC METABOLIC PANEL 2021-02-25 08:09:00 Sarah Ricketts [facility] (NA, K, CL, CO2, Medical Branch GLUCOSE, BUN, CREATININE, CA) CBC WITH DIFF 2021-02-25 08:09:00 Sarah Ricketts [facility] POCT GLUCOSE (AUTOMATED) 2021-02-25 02:14:00 Etta Mckeon Un iversity of [facility] POCT GLUCOSE (AUTOMATED) 2021-02-24 21:52:00 Etta Mckeon iversity of [facility] Branch POCT GLUCOSE (AUTOMATED) 2021-02-24 16:38:00 Etta Mckeon Un iversity of [facility] POCT GLUCOSE (AUTOMATED) 2021-02-24 12:35:00 Etta Mckeon iversity of [facility] BASIC METABOLIC PANEL 2021-02-24 08:47:00 Lillie Wilkins [facility] (NA, K, CL, CO2, Medical Branch GLUCOSE, BUN, CREATININE, CA) CBC WITH DIFF 2021-02-24 08:47:00 Lillie Wilkins [place] [facility] Branch GLYCOSYLATED HEMOGLOBIN 2021-02-24 08:47:00 Zane Ricketts i [facility] (A1C) [facility] POCT GLUCOSE (AUTOMATED) 2021-02-24 01:40:00 Etta Mckeon Un iversity of [facility] Branch POCT GLUCOSE (AUTOMATED) 2021-02-23 22:45:00 Etta Mckeon Un iversity of [facility] POCT GLUCOSE (AUTOMATED) 2021-02-23 16:55:00 [facility] PO[facility] GLUCOSE (AUTOMATED) 2021-02-23 14:08:00 Etta Mckeon Un iversity [facility] BASIC METABOLIC PANEL 2021-02-23 08:46:00 [facility] (NA, K, CL, CO2, Medical Branch GLUCOSE, BUN, CREATININE, CA) CBC WITH DIFF 2021-02-23 08:46:00 [facility] ([facility]OMATED) 2021-02-23 02:23:00 Etta Mckeon Un iversity of [facility] POCT GLUCOSE (AUTOMATED) 2021-02-22 22:50:00 Etta Mckeon Un iversity [facility] POCT GLUCOSE (AUTOMATED) 2021-02-22 17:08:00 [facility] BASIC METABOLIC PANEL 2021-02-22 09:31:00 [facility] (NA, K, CL, CO2, Medical Branch GLUCOSE, BUN, CREATININE, CA) CBC WITH DIFF 2021-02-22 09:31:00 [facility] ([facility]) 2021-02-22 01:56:00 Etta Mckeon Un iversity [facility] POCT GLUCOSE (AUTOMATED) 2021-02-21 21:28:[address] W[address] Uni [facility] POCT GLUCOSE (AUTOMATED) 2021-02-21 17:19:00 Wiggins, Jaclyn Uni [facility] POCT GLUCOSE (AUTOMATED) 2021-02-21 14:48:[address] Uni [facility] PHOSPHORUS 2021-02-21 11:17:00 Gene Ruiz [facility] MAGNESIUM 2021-02-21 11:17:00 Joseph [facility] HEPATIC FUNCTION PANEL 2021-02-21 11:17:00 Gene Ruiz [facility] ([id number]) (ALB,T.PRO,BILI Medical Branch T,BU/BC,ALT,AST,ALK PHOS) BASIC METABOLIC PANEL 2021-02-21 11:17:00 Gene Ruiz [facility] (NA, K, CL, CO2, Medical Branch GLUCOSE, BUN, CREATININE, CA) CBC WITH DIFF 2021-02-21 11:17:00 Gene Ruiz [facility] PROTHROMBIN TIME / INR 2021-02-21 11:17:00 Gene Ruiz [facility] ACTIVATED PARTIAL 2021-02-21 11:17:00 Gene Ruiz [facility] LACTIC ACID WHOLE BLOOD 2021-02-21 11:17:00 Gene [facility]ST 1 VW 2021-02-21 02:52:40 Elsa Landry [facility] CT ABDOMEN PELVIS W 2021-02-21 02:39:56 Elsa Landry [facility] CONTRAST [facility] URINALYSIS 2021-02-21 01:08:00 Joseph [facility] URINE CULTURE 2021-02-21 01:08:00 Joseph [facility] HB ECG ROUTINE & RHYTHM 2021-02-21 01:01:32 Elsa Landry [facility] [place] BLOOD CULTURE SCREEN 2021-02-21 00:58:00 Shefali Ruiz [facility] LIPASE 2021-02-21 00:58:00 Joseph [facility] TROPONIN I 2021-02-21 00:58:00 Joseph [facility] HEPATIC FUNCTION PANEL 2021-02-21 00:58:00 Joseph [facility] ([id number]) (ALB,T.PRO,BILI [facility] Branch T,BU/BC,ALT,AST,ALK PHOS) COMP. METABOLIC PANEL 2021-02-21 00:58:00 [id number] Branch CBC WITH DIFF 2021-02-21 00:58:00 Joseph [facility] COVID-19 (ID NOW RAPID 2021-02-21 00:58:00 Shefali Ruiz [facility] TESTING) [facility] Branch LACTIC ACID WHOLE BLOOD 2021-02-21 00:57:00 Shefali Ruiz [facility] NOTICE OF PRIVACY 2021-02-21 00:23:04 Doctor Unassigned, No [facility] Name [facility] PATIENT QUESTIONNAIRE 2021-02-14 05:01:00 Doctor Unassigned, No [facility] CT CHEST WO CONTRAST 2020-11-07 18:49:00 Arvind Moore [facility] XR CHEST 2 VW 2019-02-23 22:21:03 Enoch Cabrera [facility] Plan of Care Planned Activity Planned Date Details Comments Source Future Scheduled 2021-09-10 COMPLETE PFT WITHOUT 1 Occurrences [employer] Test 14:22:58 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 [code starting of Medi cine = 99327] 09/10/2021 until 09/10/2022 Future Scheduled 2021-09-10 CT CHEST HIGH 1 Occurrences [facility] Test 14:14:59 RESOLUTION WO starting of Medicine CONTRAST [code = 09/10/2021 until 38569-5] 09/10/2022 Future Scheduled 2021-09-10 Screening for [facility] Col lege Test 14:00:29 malignant neoplasm of of Med icine colon (procedure) [code = 249920766] Future Scheduled 2021-09-10 COVID-19 Vaccine (1) [facility] Test 14:00:29 [code = COVID-19 of Medicine Vaccine (1)] Future Scheduled 2021-09-10 TETANUS SHOT (ADULT) [employer] Test 14:00:29 [code = TETANUS SHOT of Medi cine (ADULT)] Future Scheduled 2021-09-10 Hepatitis C screening [employer] Test 14:00:29 (procedure) [code = of Medic ine 758270720] Future Scheduled 2021-09-10 ZOSTER VACCINE (1 of [employer] Test 14:00:29 2) [code = ZOSTER of Medicin e VACCINE (1 of 2)] Future Scheduled 2021-09-10 FLU VACCINE > 6 [facility] C [facility]lege Test 14:00:29 MONTHS [...] [facility] Test (procedure) [code = Hospital 375683109] Future Scheduled COLONOSCOPY SCREENING [facility] Test [code = COLONOSCOPY Hospital SCREENING] Future Scheduled SHINGLES VACCINES Method ist Test (#1) [code = SHINGLES Hospit al VACCINES (#1)] Future Scheduled INFLUENZA VACCINE Method ist Test [code = INFLUENZA Hospital VACCINE] Encounters Start End Encounter Admission Attending Care Care Encounter Source Date/Time Date/Time Type Type Clinicians Facility Department ID 2021-11-26 Outpatient [place], [facility] [id number] Common 09:54:01 [facility] 2021-08-27 Outpatient [place], [facility] [id number] Common 14:24:19 Bryant [address] [facility] 2021-08-27 Outpatient [place], [facility] [id number] Common 14:23:28 Bryant [address] [facility] 2021-08-27 Outpatient [place], [facility] [id number] Common 13:11:30 Bryant [address]236 [facility] 2021-08-27 Outpatient [place], [facility] [id number] Common 12:58:11 Bryant [address] [facility] 2021-08-27 Outpatient [place], STLMLC STLMLC [id number] Common 12:50:45 Bryant [address] [facility] 2021-08-27 Outpatient [place], STLMLC STLMLC [id number] Common 12:33:09 Bryant [address] [facility] 2021-08-27 Outpatient [place], STLMLC STLMLC [id number] Common 11:21:28 Bryant [address] [facility] 2021-08-27 Outpatient [place], STLMLC STLMLC [id number] Common 11:14:28 Bryant [address] [facility] 2021-08-27 Outpatient [place], STLMLC STLMLC [id number] Common 11:07:10 Bryant [address] [facility] 2021-08-27 Outpatient [place], STLMLC STLMLC [id number] Common 11:01:07 Bryant [address] [facility] 2021-08-27 Outpatient [place], STLMLC STLMLC [id number] Common 11:00:53 Bryant [address] [facility] 2021-08-27 Outpatient [place], STLMLC STLMLC [id number] Common 10:58:57 Bryant [address] [facility] 2021-06-02 Emergency [facility] [id number] Univers 19:11:59 ity [facility] 2021-06-02 Emergency [facility] [id number] Univers [facility]:12[facility] [id number] Univers 00:43:37 ity [facility] 2019-10-02 [id number] 08:00:00 Tre[facility] 2019-09-19 Inpatient MIHIR Calvillo HCAPM RADI [id number] [facility] 11:00:00 Trever [id number] [facility] 2021-12-18 2021-12-18 Outpatient EL LALITO, SLEKeily SLE [id number] [facility] 13:32:29 23:59:00 DIPABEN 2021-11-26 2021-11-26 Outpatient EL LALITO, SLEH SLEH [id number] [facility] 00:00:00 00:00:00 DIPABEN 2021-11-25 2021-11-25 ambulatory STLMLC STLMLC [id number] Common 00:00:00 00:00:00 [facility] 2021-10-24 2021-10-24 [facility] [id number] SLEH 00:00:00 00:00:00 DIPABEN 2021-10-23 2021-10-23 ambulatory STLMLC STLMLC [id number] Common 00:00:00 00:00:00 [facility] 2021-10-20 2021-10-20 ambulatory STLMLC STLMLC [id number] Common 00:00:00 00:00:00 [facility] 2021-10-17 2021-10-17 Outpatient BCM [facility] [id number] [address] [place] [address] 13:09:29 13:09:29 Wilfrid Medicin e 2021-09-29 2021-09-29 Outpatient EL LALITO, [facility] [id number] SLE 00:00:00 00:00:00 DIPABEN 2021-09-22 2021-09-22 ambulatory STLMLC STLMLC [id number] Common 00:00:00 00:00:00 [facility] 2021-09-22 2021-09-22 ambulatory STLMLC STLMLC [id number] Common 00:00:00 00:00:00 [facility] 2021-09-10 2021-09-10 Office JACKELIN STARKEY 1.2.840.114 [id number] [facility] 13:40:43 14:43:07 Visit DIPABEN AMBULATOR 350.1.13.21 College Y 0.2.7.2.686 [id number] Medi carmelina 315 e 2021-08-26 2021-08-26 Refill MARLENI Khalil 1.2.840.[id number] [place] [address] 00:00:00 00:00:00 Angel HEALTH 350.1.13.10 it y of CANCER 4.2.7.2.686 [facility] [id number] Med ica MDA [address] 2021-07-14 2021-07-14 ambulatory STLMLC STLMLC [id number] Common 00:00:00 00:00:00 [facility] 2021-07-08 2021-07-08 ambulatory STLMLC STLMLC [id number] Common 00:00:00 00:00:00 [facility] 2021-07-03 2021-07-03 Outpatient Katy COLIN [facility] [id number] 00P-20 Univers 10:00:00 10:00:00 SAWYER [id number] [facility] 2021-07-03 2021-07-03 [facility]patient [facility] [id number] Univers 10:00:00 10:00:00 SAWYER [facility] 2021-06-11 2021-06-11 [facility] 1.2.840.114 [id number] Univers 00:00:00 00:00:00 [facility] 350.1.13.10 it y of CANCER 4.2.7.2.686 [facility] [id number] [facility] MDA [address] 2021-05-15 2021-05-15 Outpatient STLMLC STLMLC [id number] Common 00:00:00 00:00:00 [facility] 2021-05-09 2021-05-09 [facility] 1.2.840.114 [id number] Univers 00:00:00 00:00:00 [facility] 350.1.13.10 it y of Cancer 4.2.7.2.686 [facility] [phone] Med ica MDA [address] 2021-04-16 2021-04-16 Outpatient STLMLC STLMLC [id number] Common 00:00:00 00:00:00 [facility] 2021-04-14 2021-04-14 Outpatient STLMLC STLMLC [id number] Common 00:00:00 00:00:00 [facility] 2021-04-14 2021-04-14 Outpatient STLMLC STLMLC [id number] Common 00:00:00 00:00:00 [facility] 2021-04-14 2021-04-14 Outpatient STLMLC STLMLC [id number] Common 00:00:00 00:00:00 [facility] 2021-04-11 2021-04-11 Outpatient STLMLC STLMLC [id number] Common 00:00:00 00:00:00 [facility] 2021-04-04 2021-04-04 Outpatient Katy FOSTER [facility] [id number] Univers 10:30:00 10:30:00 NANCI [id number] ity [facility] 2021-04-04 2021-04-04 Outpatient Kat[facility] [id number] Univers 10:30:00 10:30:00 NANCI [facility] 2021-03-31 2021-04-01 Emergency [facility] 1.2.793.397 [id number] Univers 19:55:00 01:41:00 Laz Sullivan 350.1.13.10 i [facility] 4.2.7.2.686 [facility] [id number] [facility] 084 Branch 2021-03-21 2021-03-21 Outpatient STLMLC STLMLC [id number] Common 00:00:00 00:00:00 [facility] 2021-03-21 2021-03-21 Orders Doctor ROSE 1.2.840.114 [id number] Univers 00:00:00 00:00:00 Only Unassigned, MICHAEL 350.1.13.10 ity [facility] 4.2.7.2.686 [facility] [id number] [facility] 009 Branch 2021-03-20 2021-03-20 Outpatient STLMLC STLMLC [id number] Common 00:00:00 00:00:00 [facility] 2021-03-07 2021-03-07 Outpatient STLMLC STLMLC [id number] Common 00:00:00 00:00:00 [facility] 2021-03-07 2021-03-07 Outpatient STLMLC STLMLC [id number] Common 00:00:00 00:00:00 [facility] 2021-02-28 2021-02-28 Outpatient Katy JETER [facility] [id number] -[id number] Univers 10:30:00 10:30:00 BETTYE [id number] ity [facility] 2021-02-28 2021-02-28 Outpatient Katy JETER [facility] [id number] Univers 00:00:00 00:00:00 BETTYE jada [facility] 2021-02-27 2021-02-27 Outpatient STLMLC STLMLC [id number] Common 00:00:00 00:00:00 [facility] 2021-02-27 2021-02-27 Outpatient STLMLC STLMLC [id number] Common 00:00:00 00:00:00 [facility] 2021-02-27 2021-02-27 Transition Maria L Montanez 1.2.840.114 [id number] Univers 00:00:00 00:00:00 of Care Niya Tobar 350.1.13.10 it y of [place] 4.2.7.2.686 [facility] [id number] [place] [address] Branch 2021-02-20 2021-02-26 [facility] Elsa Landry 1.2.840. 114 [id number] Univers 19:39:00 18:25:00 Encounter Jaclyn Wiggins 350.1.13.10 ity [facility] 4.2.7.2.686 Angel Camacho [phone] [place] [id number] Branch 2021-02-24 2021-02-24 Outpatient STLMLC STLMLC [id number] Common 00:00:00 00:00:00 [facility] 2021-02-19 2021-02-19 Outpatient STLMLC STLMLC [id number] Common 00:00:00 00:00:00 [facility] 2021-02-17 2021-02-17 Outpatient STLMLC STLMLC [id number] Common 00:00:00 00:00:00 [facility] 2021-02-14 2021-02-14 Office [facility] 1.2.840.114 [id number] Univers 10:04:09 11:24:24 Visit Bettye SPECIALTY 350.1.13.10 ity [id number] N[place] reina FUENTES 072 [facility] 2021-02-14 2021-02-14 Outpatient R [facility] [id number] -[id number] Univers 10:00:00 10:00:00 BETTYE [id number] ity [facility] 2021-02-14 2021-02-14 Outpatient R [facility] [id number] Univers 10:00:00 10:00:00 BETTYE jada [facility] 2021-02-14 2021-02-14 Orders Doctor MILTON 1.2.840.114 [id number] Univers 00:00:00 00:00:00 Only Unassigned, MICHAEL 350.1.13.10 ity of [place] [facility] 4.2.7.2.686 Dante as [phone] [facility] 009 Branch 2021-02-10 2021-02-10 Outpatient R [facility] [id number] -[id number] Univers 14:00:00 14:00:00 [id number] ity [facility] 2021-02-10 2021-02-10 Outpatient R [facility] [id number] Univers 14:00:00 14:00:00 ity [facility] 2021-01-20 2021-01-20 Transition Maria L Montanez 1.2.840.114 [id number] Univers 00:00:00 00:00:00 of Care Niya Tobar 350.1.13.10 [place] [phone] [facility] 403 [address] 2021-01-01 2021-01-01 Outpatient STLMLC STLMLC [id number] Common 00:00:00 00:00:00 [facility] 2020-12-23 2020-12-23 Outpatient STLMLC STLMLC [id number] Common 00:00:00 00:00:00 [facility] 2020-12-022020-12-02 Outpatient STLMLC STLMLC [id number] Common 00:00:00 00:00:00 [facility] 2020-11-07 2020-11-07 [facility], 1.2.840.1 [id number] Methodi 13:30:00 23:59:00 Encounter Arvind 47531.1.[address] [place] 3.430.2.7 Hospit a .3.491072 l .8 2020-11-07 2020-11-07 Travel 1.2.840.1 1.2.262.801 [id number] Methodi 00:00:00 00:00:[address] 3.430.2.7 0.2.7.3.698 Ho spita .3.668097 084.8 l .8 2020-10-18 2020-10-18 Travel 1.2.840.1 1.2.215.674 [id number] Methodi 00:00:00 00:00:[address] 3.430.2.7 0.2.7.3.698 Ho spita .3.185266 084.8 l .8 2020-10-15 2020-10-15 Transcribe [facility], 1.2.840.1 [id number] Methodi 00:00:00 00:00:00 Orders Arvind 52840.1.[address] [place] 3.430.2.7 Hospit a .3.052343 l .8 2020-10-15 2020-10-15 Outpatient STLMLC STLMLC [id number] Common 00:00:00 00:00:00 [facility] 2020-09-25 2020-09-25 Outpatient STLMLC STLMLC [id number] Common 00:00:00 00:00:00 [facility] 2020-09-23 2020-09-23 Outpatient STLMLC STLMLC [id number] Common 00:00:00 00:00:00 [facility] 2020-08-23 2020-08-23 Outpatient STLMLC STLMLC [id number] Common 00:00:00 00:00:00 [facility] 2020-08-20 2020-08-20 Outpatient STLMLC STLMLC [id number] Common 00:00:00 00:00:00 [facility] 2020-08-14 2020-08-14 Outpatient STLMLC STLMLC [id number] Common 00:00:00 00:00:00 [facility] 2020-08-12 2020-08-12 Outpatient STLMLC STLMLC [id number] Common 00:00:00 00:00:00 [facility] 2020-08-09 2020-08-09 Outpatient STLMLC STLMLC [id number] Common 00:00:00 00:00:00 [facility] 2020-03-22 2020-03-22 [facility] [id number] Common 08:45:00 08:45:[address] [facility] 2020-03-08 2020-03-08 [facility] [id number] Common 10:26:00 10:26:[address] [facility] 2020-03-05 2020-03-05 [facility] [id number] Common 16:14:00 16:14:[address] [facility] 2020-03-01 2020-03-01 [facility] [id number] Common 10:00:00 10:00:[address] [facility] 2020-03-01 2020-03-01 Out[facility] [id number] Common 10:00:00 10:00:[address] [facility] 2020-01-10 2020-01-10 [facility] [id number] Common 13:52:00 13:52:00 t Specialty/U Sp g[facility] Specialty rology - [facility] 2019-12-28 2019-12-28 [facility] [id number] Common 13:15:00 13:15:00 t Specialty/U Sp garth Specialty rology - [facility] /Urology Clinic [facility] 2019-11-16 2019-11-16 [facility] [id number] Common 15:00:00 15:00:00 t Specialty/U Sp garth Specialty rology - [facility] 2019-10-20 2019-10-20 [facility] [id number] Common 10:09:00 10:09:00 t Specialty/U Sp garth Specialty rology - [facility] 2019-10-18 2019-10-18 [facility] [id number] Common 08:30:00 08:30:00 t Specialty/U Sp garth Specialty rology - [facility] /Urology Clinic [facility] 2019-10-17 2019-10-17 [facility] [id number] Common 15:00:00 15:00:00 t [place] [address] [facility] 2019-10-13 2019-10-13 [facility] [id number] Common 15:13:00 15:13:00 t [place] [address] [facility] 2019-10-02 2019-10-02 Outpatient JORDI CalvilloCL OUTD [id number] 0-20 [facility] 23:54:00 23:54:00 [facility] 2019-09-18 2019-09-18 Outpatient JORDI CalvilloPM RADI [id number] [facility] 09:00:00 09:00:00 Tre[place] [id number] [facility] 2019-09-15 2019-09-15 [facility] [id number] Common 09:00:00 09:00:00 t [place] [address] [facility] 2019-08-10 2019-08-10 Out[facility] [id number] Common 11:32:00 11:32:00 t [place] [address] [facility] 2019-07-17 2019-07-17 [facility] [id number] Common 16:43:00 16:43:[address] [facility] 2019-06-21 2019-06-21 [facility] [id number] Common 11:12:00 11:12:[address] [facility] 2019-06-19 2019-06-19 [facility] [id number] Common 14:00:00 14:00:[address] [facility] 2019-06-12 2019-06-12 [facility] [id number] Common 15:55:00 15:55:[address] [facility] 2019-06-01 2019-06-01 [facility] [id number] Common 13:44:00 13:44:[address] [facility] 2019-05-24 2019-05-24 [facility] [id number] Common 13:44:00 13:44:[address] [facility] 2019-05-18 2019-05-18 [facility] [id number] Common 10:50:00 10:50:[address] [facility] 2019-05-01 2019-05-01 Out[facility] [id number] Common 15:00:00 15:00:[address] [facility] 2019-04-14 2019-04-14 [facility] [id number] Common 16:09:00 16:09:[address] [facility] 2019-03-08 2019-03-08 [facility] 1.2.840.114 [id number] Univers 00:00:00 00:00:00 Tara, Y HEALTH 350.1.13.10 i ty of [facility] [place].2.[place] [id number] [facility] 084 [address] 2019-03-08 2019-03-08 [facility] 1.2.840.114 [id number] 00:00:00 00:00:00 Tara, Y HEALTH 350.1.13.10 [facility] 4.2.7.2.686 [id number] [facility] 2019-03-07 2019-03-07 [facility] Jalen [facility] 1.2.904.231 [id number] Univers 00:00:00 00:00:00 Management Madelyn Y HEALTH 350.1.13.10 ity of [place] [facility] [id number] [facility] 084 [address] 2019-03-07 2019-03-07 [facility] Jalen [facility] 1.2.053.641 [id number] 00:00:00 00:00:00 Management Madelyn Y HEALTH 350.1.13.10 [place] [facility] .2.7.2.686 [id number] [facility] 2019-03-01 2019-03-01 Out[facility] [id number] Common 13:52:00 13:52:00 [employer] [facility] 2019-02-23 2019-02-23 [facility] 1.2.840.114 [id number] [facility] 16:56:13 23:59:00 Encounter Madelyn Y HEALTH 350.1.13.10 ity of [place] [id number] [facility] [address] [place] 2019-02-23 2019-02-23 [facility] 1.2.840.114 [id number] 16:56:13 23:59:00 Encounter Madelyn Y HEALTH 350.1.13.10 [place] [facility] 4.2.7.2.686 [id number] [facility] 2019-02-23 2019-02-23 Office Enoch Cabrera [facility] 1.2 .840.114 [id number] [facility] 15:34:50 18:38:56 Visit Madelyn Raopa Y HEALTH 350.1. 13.10 ity of CL[place]ICS [place] [id number] [facility] 0[address] 2019-02-23 2019-02-23 Office [facility] 1.2.849.819 [id number] 15:34:50 18:38:56 Visit Jada Pacheco HEALTH 350.1.13.10 [place] 4.2.7.2.686 [id number] [facility] 2019-02-23 2019-02-23 Environmental Systems Coordinator [facility] 1.2.840.114 [id number] [facility] 16:32:11 16:43:54 Visit Madelyn Rao [facility] 350.1. 13.10 ity of CLINICS 4[place]2.[place] [id number] [facility] 316 [address] 2018-12-01 2018-12-01 [facility] [id number] Common 10:52:00 10:52:[address] [facility] 2018-11-29 2018-11-29 [facility] [id number] Common 14:45:00 14:45:[address] [facility] 2018-09-28 2018-09-28 [facility] [id number] Common 10:43:00 10:43:[address] [facility] 2018-08-16 2018-08-16 [facility] [id number] Common 12:06:00 12:06:[address] [facility] 2018-07-25 2018-07-25 [facility] [id number] Common 10:56:00 10:56:[address] [facility] 2018-07-22 2018-07-22 [facility] [id number] Common 01:11:00 01:11:[address] [facility] 2018-07-20 2018-07-20 [facility] [id number] Common 13:00:00 13:00:00 t [facility] [address] [facility] 2018-07-19 2018-07-19 [facility] [id number] Common 14:38:00 14:38:00 t [facility] [address] [facility] 2018-07-15 2018-07-15 [facility] [id number] Common 16:01:00 16:01:[address] [facility] 2018-07-14 2018-07-14 [facility] [id number] Common 15:35:00 15:35:00 t [facility] [address] [facility] 2018-04-21 2018-04-21 [facility] [id number] Common 09:04:00 09:04:00 t [facility] [address] [facility] 2018-04-20 2018-04-20 [facility] [id number] Common 22:17:00 22:17:[address] [facility] 2018-04-20 2018-04-20 [facility] [id number] Common 14:30:00 14:30:00 t [facility] [address] [facility] Results Test Description Test Time Test Comments Results Result Comments Source URINALYSIS 2021-04-01 03:04:09 Test Item Value Reference Range Interpretation Comme nts APPEARANCE (test code = Clear Clear 8048043926) COLOR (test code = 2284016260) Yellow Yellow PH (test code = 5037934377) 4.8-8.0 SP GRAVITY (test code = 1.003-1.030 0034419855) GLU U QUAL (test code = Normal Normal 2833792138) BLOOD (test code = 8869481826) Negative Negative Interference from ascorbic acid may cause false negative results. KETONES (test code = Negative Negative 0277541455) PROTEIN (test code = 2887-8) Negative Negative UROBILIN (test code = 2.0 mg/dL Normal A 0988850165) BILIRUBIN (test code = Negative Negative 0684277683) NITRITE (test code = Negative Negative 0494350512) LEUK MIGDALIA (test code = Negative Negative 8302398266) RBC/HPF (test code = See_Comment H [Autom ated message] The 8383787413) system which ge nerated this result transmit elaine reference range: 0 - 3 HP F. The reference range was not used to interpret th is result as normal/abnormal . WBC/HPF (test code = See_Comment [Autom ated message] The 6612889027) system which ge nerated this result transmit elaine reference range: 0 - 5 HP F. The reference range was not used to interpret th is result as normal/abnormal . BACTERIA (test code = Few Negative A 5030308825) MUCOUS (test code = 3603037311) Slight Negative LPF A SQ EPITH (test code = HPF 5063107688) HYAL CAST (test code = See_Comment H [Aut omated message] The 9223363613) system which ge nerated this result transmit elaine reference range: <=2 LPF. The reference range was not u sed to interpret this result as normal/abnormal . GRAN CASTS (test code = See_Comment H [Au tomated message] The 3889636701) system which ge nerated this result transmit elaine reference range: <=1 LPF. The reference range was not u sed to interpret this result as normal/abnormal . Lab Interpretation (test code = Abnormal 37635-3) [facility] Test Item Value Reference Range Interpretation Comments APPEARANCE (test code = Clear Clear 1447543760) COLOR (test code = Yellow Yellow 0986116171) PH (test code = 4.8-8.0 2617567082) SP GRAVITY (test code = 1.003-1.030 6034236266) GLU U QUAL (test code = Normal Normal 5334876298) BLOOD (test code = Negative Negative 4939186637) KETONES (test code = Negative Negative 0503109913) PROTEIN (test code = Negative Negative 2887-8) UROBILIN (test code = 2.0 mg/dL Normal A 4946148255) BILIRUBIN (test code = Negative Negative 7225638189) NITRITE (test code = Negative Negative 9750772151) LEUK MIGDALIA (test code = Negative Negative 2036919008) RBC/HPF (test code = See_Comment H [Autom ated message] 0325429263) The system [employer] generated this result transmit elaine reference range : 0 - 3 HPF. The refe rence range was not u sed to interpret th is result as normal/abnormal . WBC/HPF (test code = See_Comment [Autom ated message] 5497372468) The system [employer] generated this result transmit elaine reference range : 0 - 5 HPF. The refe rence range was not u sed to interpret th is result as normal/abnormal . BACTERIA (test code = Few Negative A 9963115753) MUCOUS (test code = Slight Negative LPF A 8122236611) SQ EPITH (test code = HPF 3779848753) HYAL CAST (test code = See_Comment H [Aut omated message] 3013925007) The system [employer] generated this result transmit elaine reference range : <=2 LPF. The refere nce range was not u sed to interpret th is result as normal/abnormal . GRAN CASTS (test code = See_Comment H [Au tomated message] 7164063505) The system [employer] generated this result transmit elaine reference range : <=1 LPF. The refere nce range was not u sed to interpret th is result as normal/abnormal . Lab Interpretation (test Abnormal code = 57817-7) [facility] [id number] 02:31:36 Test Item Value Reference Interpretation Comments Range TROPONIN I (test 0.003 ng/mL See_Comment [Automated code = 2214865495) message] The system which generated this result [...] biotin. Lab Interpretation Normal (test code = 93184-7) [facility] [id number] 02:31:36 Test Item Value Reference Range Interpretation Comments TROPONIN I (test code = 0.003 ng/mL See_Comment [Au tomated 7242717980) message] The sy stem which generated this result transmitted reference range : <=0.034. The reference range was not used to interpret this result as normal/abnormal . ANU (test code = ANU) Lab Interpretation Normal (test code = 94141-0) [facility] [id number] 02:28:37 Test Item Value Reference Range Interpretation Comments NT-proBNP (test code 231 pg/mL See_Comment H [Autom ated = 6992634726) message] The system which generated this result transmitted reference range : <=125. The reference range was not used to interpret this result as normal/abnormal . ANU (test code = ANU) Biotin has been reported to cause a negative bias, interpret results relative to patient's use of biotin. Lab Interpretation Abnormal (test code = 97722-5) [facility] [id number] 02:28:37 Test Item Value Reference Range Interpretation Comments NT-proBNP (test code = 231 pg/mL See_Comment H [Aut omated message] 1154664163) The system [employer] h generated this result transmit elaine reference range : <=125. The refe rence range was not u sed to interpret th is result as normal/abnormal . ANU (test code = ANU) Lab Interpretation (test Abnormal code = 07702-2) [facility] TH[facility] [id number] 02:26:55 Test Item Value Reference Range Interpretation Comments APTT Patient (test See_Comment [Automat ed code = 3173-2) message] The system which generated this result transmitted reference range : 23 - 38 Seconds . The reference range was not used to interpr et this result as normal/abnormal . ANU (test code = ANU) The [facility] patient population mean normal value for aPTT is 30 seconds. Lab Interpretation Normal (test code = 45050-3) [facility] [id number] 02:26:55 Test Item Value Reference Range Interpretation Comments APTT Patient (test code = See_Comment [ Automated message] 3173-2) The system [employer] h generated this result transmitted ref erence range: 23 - 38 Seconds. The re ference range was not u sed to interpret this result as normal/abnor mal. ANU (test code = ANU) Lab Interpretation (test Normal code = 73688-8) [facility] / [id number] 02:24:54 Test Item Value Reference Range Interpretation Comments PROTIME PATIENT (test See_Comment [Auto mated message] code = 5964-2) The system [employer] ich generated this result transmitted ref erence range: 12.0 - 1 4.7 Seconds. The re ference range was not u sed to interpret this result as normal/abnor mal. INR (test code = 6301-6) Nor mal INR <1.1; Warfarin Therap eutic range 2.0 to 3. 0 or 2.5 to 3.5, dep ending upon the indica tions. Lab Interpretation (test Normal code = 98401-7) [facility] / [id number] 02:24:54 Test Item Value Reference Range Interpretation Comments PROTIME PATIENT (test See_Comment [Auto mated message] code = 5964-2) The system [employer] ich generated this result transmitted ref erence range: 12.0 - 1 4.7 Seconds. The re ference range was not u sed to interpret this result as normal/abnor mal. INR (test code = 6301-6) Lab Interpretation (test Normal code = 26625-3) [facility]OL[facility] PANEL ([id number])2021-04-01 02:20:56 Test Item Value Reference Range Interpretation Comments NA (test code = 139 mmol/L 135-145 8734041479) K (test code = 3.6 mmol/L 3.5-5.0 3545902612) CL (test code = 98 mmol/L 98-108 7696813200) CO2 TOTAL (test code = 29 mmol/L - 9804933342) AGAP (test code = 2-16 3226513195) BUN (test code = 17 mg/dL 7-23 6340316003) GLUCOSE (test code = 241 mg/dL 70-110 H 8555653298) CREATININE (test code = 0.98 mg/dL 0.60-1.25 4449291601) TOTAL BILI (test code = 0.5 mg/dL 0.1-1.0 1324722889) CALCIUM (test code = 9.5 mg/dL 8.6-10.6 8980085757) T PROTEIN (test code = 8.9 g/dL 6.3-8.2 H 9730027241) ALBUMIN (test code = 4.6 g/dL 3.5-5.0 3151508631) ALK PHOS (test code = 124 U/L 34-122 H 4443103723) ALTv (test code = 26 U/L 5-50 1742-6) AST(SGOT) (test code = 39 U/L 13-40 8645104793) eGFR (test code = mL/min/1.73m2 8727751439) ANU (test code = ANU) Association of [...] tests). Lab Interpretation Abnormal (test code = 08575-3) [facility] ([id number])2021-04-01 02:20:56 Test Item Value Reference Range Interpretation Comments NA (test code = 8528291148) 139 mmol/L 135-145 K (test code = 2823381799) 3.6 mmol/L 3.5-5.0 CL (test code = 3246742947) 98 mmol/L 98-108 CO2 TOTAL (test code = 6025197258) 29 mmol/L 23-31 AGAP (test code = 1694401073) 2-16 BUN (test code = 6334498102) 17 mg/dL 7-23 GLUCOSE (test code = 1552345781) 241 mg/dL 70-110 H CREATININE (test code = 0.98 mg/dL 0.60-1.25 2568246900) TOTAL BILI (test code = 0.5 mg/dL 0.1-1.6 0749811465) CALCIUM (test code = 6503453376) 9.5 mg/dL 8.6-10.6 T PROTEIN (test code = 4231896378) 8.9 g/dL 6.3-8.2 H ALBUMIN (test code = 3131222074) 4.6 g/dL 3.5-5.0 ALK PHOS (test code = 6260855778) 124 U/L 34-122 H ALTv (test code = 1742-6) 26 U/L 5-50 AST(SGOT) (test code = 0074984570) 39 U/L 13-40 eGFR (test code = 0921801221) mL/min/1.73m2 ANU (test code = ANU) Lab Interpretation (test code = Abnormal 03217-1) [facility] 02:20:14 Test Item Value Reference Range Interpretation Comments LIPASE (test code = 6578585863) 74 U/L 0-220 Lab Interpretation (test code = Normal 72629-0) [facility] CenterCOVID-[facility] (ID NOW RAPID TESTING)2021-04-01 02:20:14 Test Item Value Reference Range Interpretation Comments SARS-CoV-2 Rapid ID NOW Not Detected Not Detected (test code = 66783-2) ANU (test code = ANU) ID NOW COVID-19 Assay is an isothermal nucleic acid amplification test intended for the qualitative detection of nucleic acid from SARS-CoV-2 viral RNA in nasopharyngeal (TABLE MAKER) specimens. It is used under Emergency Use [...] indicated. Lab Interpretation Normal (test code = 66545-0) [facility]20[facility] 02:20:14 Test Item Value Reference Range Interpretation Comments LIPASE (test code = 6037648698) 74 U/L 0-220 Lab Interpretation (test code = Normal 35067-8) [facility] ([facility] NOW RAPID TESTING)2021-04-01 02:20:14 Test Item Value Reference Range Interpretation Comments SARS-CoV-2 Rapid ID NOW (test Not Detected Not Detected code = 60723-5) ANU (test code = ANU) Lab Interpretation (test code = Normal 20186-3) [facility] CenterCT [facility] WO [id number] 02:13:29No acute findings. HISTORY:Mental status change, unknown [...] extracranial tissues demonstrate no acute findings.IMPRESSIONNo acute findings.[facility] CenterCT HEAD WO [id number] 02:13:29No acute findings. HISTORY:Mental status change, unknown [...] extracranial tissues demonstrate no acute findings.IMPRESSIONNo acute findings.[facility] CenterCBC WITH [id number] 02:05:52 Test Item Value Reference Range Interpretation Comments WBC (test code = See_Comment [Automated 0490-2) message] The sy stem which generated this result transmitted reference range : 4.20 - 10.70 10*3/?L. The reference range was not used to interpret this result as normal/abnormal . RBC (test code = See_Comment L [Automated 269-8) message] The sy stem which generated this [...] RDW-SD (test code = 44.7 fL 38.5-51.6 70166-8) RDW-CV (test code = 13.2 % 12.1-15.4 788-0) PLT (test code = See_Comment [Automated 777-3) message] The sy stem which generated this result transmitted reference range : 150 - 328 10*3/ ?L. The reference r dustin was not used to interpret this result as normal/abnormal . MPV (test code = 10.3 fL 9.8-13.0 48180-3) NRBC/100 WBC (test See_Comment [Automat ed code = 1114285625) message] The system which generated this result transmitted reference range : 0.0 - 10.0 /100 WBCs. The refer ence range was not u sed to interpret th is result as normal/abnormal . NRBC x10^3 (test code <0.01 See_Comment [Auto mated = 2285290671) message] The s ystem which generated this result transmitted reference range : 10*3/?L. The reference range was not used to interpret this result as normal/abnormal . GRAN MAT (NEUT) % 54.9 % (test code = 770-8) IMM GRAN % (test code 0.20 % = 8745314584) LYMPH % (test code = 34.3 % 736-9) MONO % (test code = 7.0 % 5905-5) EOS % (test code = 3.0 % 713-8) BASO % (test code = 0.6 % 706-2) GRAN MAT x10^3(ANC) 4.59 10*3/uL 1.99-6.95 (test code = 7909003947) IMM GRAN x10^3 (test <0.03 0.00-0.06 code = 7906031012) LYMPH x10^3 (test code 2.87 10*3/uL 1.09-3.23 = 731-0) MONO x10^3 (test code 0.59 10*3/uL 0.36-1.02 = 742-7) EOS x10^3 (test code = 0.25 10*3/uL 0.06-0.53 711-2) BASO x10^3 (test code 0.05 10*3/uL 0.01-0.09 = 704-7) Lab Interpretation Abnormal (test code = 30915-9) [facility] WITH [id number] 02:05:52 Test Item Value Reference Range Interpretation [...] RDW-SD (test code = 44.7 fL 38.5-51.6 91430-6) RDW-CV (test code = 13.2 % 12.1-15.4 788-0) PLT (test code = See_Comment [Automated 777-3) message] The sy stem which generated this result transmitted reference range : 150 - 328 10*3/ ?L. The reference r dustin was not used to interpret this result as normal/abnormal . MPV (test code = 10.3 fL 9.8-13.0 67802-4) NRBC/100 WBC (test See_Comment [Automat ed code = 2813737387) message] The system which generated this result transmitted reference range : 0.0 - 10.0 /100 WBCs. The refer ence range was not u sed to interpret th is result as normal/abnormal . NRBC x10^3 (test code <0.01 See_Comment [Auto mated = 8673129926) message] The s ystem which generated this result transmitted reference range : 10*3/?L. The reference range was not used to interpret this result as normal/abnormal . GRAN MAT (NEUT) % 54.9 % (test code = 770-8) IMM GRAN % (test code 0.20 % = 4243577723) LYMPH % (test code = 34.3 % 736-9) MONO % (test code = 7.0 % 5905-5) EOS % (test code = 3.0 % 713-8) BASO % (test code = 0.6 % 706-2) GRAN MAT x10^3(ANC) 4.59 10*3/uL 1.99-6.95 (test code = 2924722070) IMM GRAN x10^3 (test <0.03 0.00-0.06 code = 6566596350) LYMPH x10^3 (test code 2.87 10*3/uL 1.09-3.23 = 731-0) MONO x10^3 (test code 0.59 10*3/uL 0.36-1.02 = 742-7) EOS x10^3 (test code = 0.25 10*3/uL 0.06-0.53 711-2) BASO x10^3 (test code 0.05 10*3/uL 0.01-0.09 = 704-7) Lab Interpretation Abnormal (test code = 68663-2) [facility] CenterAC [facility] + LACTIC [id number] 01:48:54 Test Item Value Reference Range Interpretation Comments PH (test code = 7.32-7.42 7697061342) PCO2 TAJ (test code = See_Comment H [Auto mated 7952053304) message] The sy stem which generated this result transmitted reference range : 41 - 51 mmHg. The reference range was not used to interpret this result as normal/abnormal . PO2 TAJ (test code = See_Comment [Autom ated 4279291837) message] The sy stem which generated this result transmitted reference range : 25 - 40 mmHg. The reference range was not used to interpret this result as normal/abnormal . HCO3 TAJ (test code = See_Comment [Auto mated 0117275081) message] The sy stem which generated this result transmitted reference range : 24 - 28 mEq/L. The reference range was not used to interpret this result as normal/abnormal . AC VBE(BEAKER) (test mEq/L code = 5235321561) THB TAJ (test code = 11.2 g/dL 13.5-18.0 L 6578174546) %O2HB TAJ (test code = 51.0 % 52.0-63.0 L 4334913565) %COHB TAJ (test code = 1.1 % 0.0-1.5 5818230614) %METHB TAJ (test code = 0.3 % 0.4-1.5 L 7355372017) VOL%O2 TAJ (test code = 8.0 % 6.0-12.0 6001757345) NA (test code = 138 mmol/L 135-145 2299960269) K+ (test code = 3.7 mmol/L 3.5-5.0 4872772838) AC CA IONZ (test code = 4.60 mg/dL 4.50-5.30 3963219296) GLUCOSE (test code = 236 mg/dL 70-110 H 4256016286) LACTIC ACID (test code 2.61 mmol/L 0.50-2.20 H = 9185490175) Lab Interpretation Abnormal (test code = 29522-8) [facility] L[facility] [id number] 01:48:54 Test Item Value Reference Range Interpretation Comments PH (test code = 7.32-7.42 8450949145) PCO2 TAJ (test code = See_Comment H [Auto mated 5157916254) message] The sy stem which generated this result transmitted reference range : 41 - 51 mmHg. The reference range was not used to interpret this result as normal/abnormal . PO2 TAJ (test code = See_Comment [Autom ated 2829251642) message] The sy stem which generated this result transmitted reference range : 25 - 40 mmHg. The reference range was not used to interpret this result as normal/abnormal . HCO3 TAJ (test code = See_Comment [Auto mated 4824434340) message] The sy stem which generated this result transmitted reference range : 24 - 28 mEq/L. The reference range was not used to interpret this result as normal/abnormal . AC VBE(BEAKER) (test mEq/L code = 5103470066) THB TAJ (test code = 11.2 g/dL 13.5-18.0 L 9128952191) %O2HB TAJ (test code = 51.0 % 52.0-63.0 L 3859422182) %COHB TAJ (test code = 1.1 % 0.0-1.5 1260200644) %METHB TAJ (test code = 0.3 % 0.4-1.5 L 6078507831) VOL%O2 TAJ (test code = 8.0 % 6.0-12.0 1145524489) NA (test code = 138 mmol/L 135-145 9744381838) K+ (test code = 3.7 mmol/L 3.5-5.0 8166121361) AC CA IONZ (test code = 4.60 mg/dL 4.50-5.30 4298208862) GLUCOSE (test code = 236 mg/dL 70-110 H 5138593195) LACTIC ACID (test code 2.61 mmol/L 0.50-2.20 H = 8546857618) Lab Interpretation Abnormal (test code = 97059-4) [facility] GLUCOSE (AUTOMATED)2021-02-26 22:12:16 Test Item Value Reference Range Interpretation Comments POCT GLU (test code = 9620998862) 187 mg/dL 70-110 H Lab Interpretation (test code = Abnormal 87200-2) [facility] GLUCOSE (AUTOMATED)2021-02-26 17:17:18 Test Item Value Reference Range Interpretation Comments POCT GLU (test code = 6919120707) 189 mg/dL 70-110 H Lab Interpretation (test code = Abnormal 72846-6) [facility] GLUCOSE (AUTOMATED)2021-02-26 13:53:52 Test Item Value Reference Range Interpretation Comments POCT GLU (test code = 0256004926) 132 mg/dL 70-110 H Lab Interpretation (test code = Abnormal 60660-7) [facility] METABOLIC PANEL (NA, K, CL, CO2, GLUCOSE, BUN, CREATININE, CA)2021-02-26 11:27:38 Test Item Value Reference Range Interpretation Comments NA (test code = 142 mmol/L 135-145 0314740035) K (test code = 4.0 mmol/L 3.5-5.0 1579536595) CL (test code = 106 mmol/L 98-108 9002719691) CO2 TOTAL (test code = 25 mmol/L 23-31 7248528812) AGAP (test code = 2-16 3896288363) BUN (test code = 13 mg/dL 7-23 4526015578) GLUCOSE (test code = 129 mg/dL 70-110 H 5253508530) CREATININE (test code = 0.97 mg/dL 0.60-1.25 7270338976) CALCIUM (test code = 9.3 mg/dL 8.6-10.6 0468570828) eGFR (test code = mL/min/1.73m2 1419457355) ANU (test code = ANU) Association of [...] tests). Lab Interpretation Abnormal (test code = 18532-9) [facility] WITH [id number] 10:55:37 Test Item Value Reference Range Interpretation [...] RDW-SD (test code = 42.0 fL 38.5-51.6 07662-5) RDW-CV (test code = 12.7 % 12.1-15.4 788-0) PLT (test code = See_Comment [Automated 777-3) message] The sy stem which generated this result transmitted reference range : 150 - 328 10*3/ ?L. The reference r dustin was not used to interpret this result as normal/abnormal . MPV (test code = 9.5 fL 9.8-13.0 L 94762-7) NRBC/100 WBC (test See_Comment [Automat ed code = 1240527359) message] The system which generated this result transmitted reference range : 0.0 - 10.0 /100 WBCs. The refer ence range was not u sed to interpret th is result as normal/abnormal . NRBC x10^3 (test code <0.01 See_Comment [Auto mated = 1496085362) message] The s ystem which generated this result transmitted reference range : 10*3/?L. The reference range was not used to interpret this result as normal/abnormal . GRAN MAT (NEUT) % 59.7 % (test code = 770-8) IMM GRAN % (test code 0.50 % = 6141295182) LYMPH % (test code = 30.1 % 736-9) MONO % (test code = 6.8 % 5905-5) EOS % (test code = 2.3 % 713-8) BASO % (test code = 0.6 % 706-2) GRAN MAT x10^3(ANC) 5.13 10*3/uL 1.99-6.95 (test code = 9526223867) IMM GRAN x10^3 (test 0.04 10*3/uL 0.00-0.06 code = 4886083429) LYMPH x10^3 (test code 2.58 10*3/uL 1.09-3.23 = 731-0) MONO x10^3 (test code 0.58 10*3/uL 0.36-1.02 = 742-7) EOS x10^3 (test code = 0.20 10*3/uL 0.06-0.53 711-2) BASO x10^3 (test code 0.05 10*3/uL 0.01-0.09 = 704-7) Lab Interpretation Abnormal (test code = 73917-4) [facility] 02:24:21 Test Item Value Reference Range Interpretation Comments POCT GLU (test code = 1682269183) 226 mg/dL 70-110 H Lab Interpretation (test code = Abnormal 03894-1) [facility] - [facility]ipheral # [id number] 02:01:55 Test Item Value Reference Range Interpretation Comments Blood Culture-Aerobic No organisms No growth Previo us (test code = 49415-6) isolated prelim inary verified result was Culture [...] Culture-Anaerobic isolated preliminar y (test code = 74384-3) verifi ed result was Culture In Progress [...] CDT Lab Interpretation Normal (test code = 00428-7) [facility] Culture - Peripheral # [id number] 02:01:55 Test Item Value Reference Range Interpretation Comments Blood Culture-Aerobic No organisms No growth Previo us (test code = 17518-1) isolated prelim inary verified result was Culture [...] Culture-Anaerobic isolated preliminar y (test code = 64115-7) verifi ed result was Culture In Progress [...] CDT Lab Interpretation Normal (test code = 56681-3) [facility] GLUCOSE (AUTOMATED)2021-02-25 21:54:18 Test Item Value Reference Range Interpretation Comments POCT GLU (test code = 4039065891) 254 mg/dL 70-110 H Lab Interpretation (test code = Abnormal 50060-2) [facility] GLUCOSE (AUTOMATED)2021-02-25 16:06:47 Test Item Value Reference Range Interpretation Comments POCT GLU (test code = 7205479262) 178 mg/dL 70-110 H Lab Interpretation (test code = Abnormal 83341-0) [facility]21-[facility]-25 12:41:08 Test Item Value Reference Range Interpretation Comments POCT GLU (test code = 8159525783) 141 mg/dL 70-110 H Lab Interpretation (test code = Abnormal 47417-5) [facility] METABOLIC PANEL (NA, K, CL, CO2, GLUCOSE, BUN, CREATININE, CA)2021-02-25 09:30:31 Test Item Value Reference Range Interpretation Comments NA (test code = 140 mmol/L 135-145 2088134973) K (test code = 3.7 mmol/L 3.5-5.0 8922746101) CL (test code = 104 mmol/L 98-108 7179068909) CO2 TOTAL (test code = 27 mmol/L 23-31 7136837879) AGAP (test code = 2-16 6781452466) BUN (test code = 9 mg/dL 7-23 7671502582) GLUCOSE (test code = 143 mg/dL 70-110 H 4184903793) CREATININE (test code = 0.69 mg/dL 0.60-1.25 3963470168) CALCIUM (test code = 9.4 mg/dL 8.6-10.6 7779387102) eGFR (test code = mL/min/1.73m2 6399393667) ANU (test code = ANU) Association of [...] tests). Lab Interpretation Abnormal (test code = 87450-4) [facility] WITH [id number] 09:12:53 Test Item Value Reference Range Interpretation Comments WBC (test code = See_Comment [Automated 3090-2) message] The sy stem which generated this [...] RDW-SD (test code = 42.1 fL 38.5-51.6 16457-8) RDW-CV (test code = 12.7 % 12.1-15.4 788-0) PLT (test code = See_Comment L [Automated 777-3) message] The sy stem which generated this result transmitted reference range : 150 - 328 10*3/ ?L. The reference r dustin was not used to interpret this result as normal/abnormal . MPV (test code = 10.3 fL 9.8-13.0 99269-9) NRBC/100 WBC (test See_Comment [Automat ed code = 1612618959) message] The system which generated this result transmitted reference range : 0.0 - 10.0 /100 WBCs. The refer ence range was not u sed to interpret th is result as normal/abnormal . NRBC x10^3 (test code <0.01 See_Comment [Auto mated = 1958674355) message] The s ystem which generated this result transmitted reference range : 10*3/?L. The reference range was not used to interpret this result as normal/abnormal . GRAN MAT (NEUT) % 48.6 % (test code = 770-8) IMM GRAN % (test code 0.30 % = 5590513644) LYMPH % (test code = 38.6 % 736-9) MONO % (test code = 9.2 % 5905-5) EOS % (test code = 2.7 % 713-8) BASO % (test code = 0.6 % 706-2) GRAN MAT x10^3(ANC) 3.23 10*3/uL 1.99-6.95 (test code = 5216011864) IMM GRAN x10^3 (test <0.03 0.00-0.06 code = 8604187719) LYMPH x10^3 (test code 2.56 10*3/uL 1.09-3.23 = 731-0) MONO x10^3 (test code 0.61 10*3/uL 0.36-1.02 = 742-7) EOS x10^3 (test code = 0.18 10*3/uL 0.06-0.53 711-2) BASO x10^3 (test code 0.04 10*3/uL 0.01-0.09 = 704-7) Lab Interpretation Abnormal (test code = 20495-6) [facility] 02:15:28 Test Item Value Reference Range Interpretation Comments POCT GLU (test code = 204 mg/dL 70-110 H Notifi ed Provider 3003617415) Lab Interpretation (test Abnormal code = 44289-9) [facility]GL[facility] (A1C)2021-02-25 00:03:48 Test Item Value Reference Range Interpretation Comments HGB A1C (test code = 7.8 % 4.0-5.7 H 4548-4) ANU (test code = ANU) Reference RangesNormal: <5.7%Prediabetes: 5.7 - 6.4%Diabetes: > 6.5% Lab Interpretation (test Abnormal code = 84849-8) [facility] GLUCOSE (AUTOMATED)2021-02-24 21:53:33 Test Item Value Reference Range Interpretation Comments POCT GLU (test code = 6028405705) 170 mg/dL 70-110 H Lab Interpretation (test code = Abnormal 85454-5) [facility] GLUCOSE (AUTOMATED)2021-02-24 16:39:31 Test Item Value Reference Range Interpretation Comments POCT GLU (test code = 6133273753) 147 mg/dL 70-110 H Lab Interpretation (test code = Abnormal 20445-0) [facility] GLUCOSE (AUTOMATED)2021-02-24 12:37:30 Test Item Value Reference Range Interpretation Comments POCT GLU (test code = 1379754835) 141 mg/dL 70-110 H Lab Interpretation (test code = Abnormal 77489-9) [facility] METABOLIC PANEL (NA, K, CL, CO2, GLUCOSE, BUN, CREATININE, CA)2021-02-24 09:52:22 Test Item Value Reference Range Interpretation Comments NA (test code = 141 mmol/L 135-145 0917594948) K (test code = 4.3 mmol/L 3.5-5.0 3292220665) CL (test code = 107 mmol/L 98-108 2380036978) CO2 TOTAL (test code = 26 mmol/L 23-31 9250871469) AGAP (test code = 2-16 4764895940) BUN (test code = 10 mg/dL 7-23 6530506886) GLUCOSE (test code = 145 mg/dL 70-110 H 6817719154) CREATININE (test code = 0.72 mg/dL 0.60-1.25 1518043743) CALCIUM (test code = 9.3 mg/dL 8.6-10.6 8506220496) eGFR (test code = mL/min/1.73m2 8115475832) ANU (test code = ANU) Association of [...] tests). Lab Interpretation Abnormal (test code = 20977-6) [facility] WITH [id number] 09:19:21 Test Item Value Reference Range Interpretation Comments WBC (test code = See_Comment [Automated 5507-2) message] The sy stem which generated this result transmitted reference range : 4.20 - 10.70 10*3/?L. The reference range was not used to interpret this result as normal/abnormal . RBC (test code = See_Comment L [Automated 273-8) message] The sy stem which generated this [...] RDW-SD (test code = 42.5 fL 38.5-51.6 84323-7) RDW-CV (test code = 12.8 % 12.1-15.4 788-0) PLT (test code = See_Comment L [Automated 777-3) message] The sy stem which generated this result transmitted reference range : 150 - 328 10*3/ ?L. The reference r dustin was not used to interpret this result as normal/abnormal . MPV (test code = 9.9 fL 9.8-13.0 49373-7) NRBC/100 WBC (test See_Comment [Automat ed code = 3275162841) message] The system which generated this result transmitted reference range : 0.0 - 10.0 /100 WBCs. The refer ence range was not u sed to interpret th is result as normal/abnormal . NRBC x10^3 (test code <0.01 See_Comment [Auto mated = 0325814101) message] The s ystem which generated this result transmitted reference range : 10*3/?L. The reference range was not used to interpret this result as normal/abnormal . GRAN MAT (NEUT) % 47.7 % (test code = 770-8) IMM GRAN % (test code 0.20 % = 3358347861) LYMPH % (test code = 39.0 % 736-9) MONO % (test code = 10.3 % 5905-5) EOS % (test code = 2.3 % 713-8) BASO % (test code = 0.5 % 706-2) GRAN MAT x10^3(ANC) 2.96 10*3/uL 1.99-6.95 (test code = 6752567645) IMM GRAN x10^3 (test <0.03 0.00-0.06 code = 7059711682) LYMPH x10^3 (test code 2.42 10*3/uL 1.09-3.23 = 731-0) MONO x10^3 (test code 0.64 10*3/uL 0.36-1.02 = 742-7) EOS x10^3 (test code = 0.14 10*3/uL 0.06-0.53 711-2) BASO x10^3 (test code 0.03 10*3/uL 0.01-0.09 = 704-7) Lab Interpretation Abnormal (test code = 19678-0) [facility] GLUCOSE (AUTOMATED)2021-02-24 01:42:01 Test Item Value Reference Range Interpretation Comments POCT GLU (test code = 6601420386) 178 mg/dL 70-110 H Lab Interpretation (test code = Abnormal 44015-1) [facility] GLUCOSE (AUTOMATED)2021-02-23 22:46:27 Test Item Value Reference Range Interpretation Comments POCT GLU (test code = 9203751379) 156 mg/dL 70-110 H Lab Interpretation (test code = Abnormal 33458-3) [facility] GLUCOSE (AUTOMATED)2021-02-23 16:57:14 Test Item Value Reference Range Interpretation Comments POCT GLU (test code = 7206766292) 185 mg/dL 70-110 H Lab Interpretation (test code = Abnormal 31827-5) [facility] GLUCOSE (AUTOMATED)2021-02-23 14:09:23 Test Item Value Reference Range Interpretation Comments POCT GLU (test code = 7254135524) 180 mg/dL 70-110 H Lab Interpretation (test code = Abnormal 87436-1) [facility] METABOLIC PANEL (NA, K, CL, CO2, GLUCOSE, BUN, CREATININE, CA)2021-02-23 09:26:37 Test Item Value Reference Range Interpretation Comments NA (test code = 141 mmol/L 135-145 5700618211) K (test code = 3.9 mmol/L 3.5-5.0 3943350157) CL (test code = 111 mmol/L 98-108 H 4853528404) CO2 TOTAL (test code = 23 mmol/L 23-31 7758485122) AGAP (test code = 2-16 1972970846) BUN (test code = 12 mg/dL 7-23 5936737533) GLUCOSE (test code = 164 mg/dL 70-110 H [id number]) CREATININE (test code = 0.78 mg/dL 0.60-1.25 3115076902) CALCIUM (test code = 9.1 mg/dL 8.6-10.6 7583885866) eGFR (test code = mL/min/1.73m2 2603416485) ANU (test code = ANU) Association of [...] tests). Lab Interpretation Abnormal (test code = 37279-7) [facility] WITH [id number] 09:04:37 Test Item Value Reference Range Interpretation [...] RDW-SD (test code = 43.5 fL 38.5-51.6 50388-3) RDW-CV (test code = 12.8 % 12.1-15.4 788-0) PLT (test code = See_Comment L [Automated 777-3) message] The sy stem which generated this result transmitted reference range : 150 - 328 10*3/ ?L. The reference r dustin was not used to interpret this result as normal/abnormal . MPV (test code = 10.1 fL 9.8-13.0 54863-1) NRBC/100 WBC (test See_Comment [Automat ed code = 4728042368) message] The system which generated this result transmitted reference range : 0.0 - 10.0 /100 WBCs. The refer ence range was not u sed to interpret th is result as normal/abnormal . NRBC x10^3 (test code <0.01 See_Comment [Auto mated = 0608436714) message] The s ystem which generated this result transmitted reference range : 10*3/?L. The reference range was not used to interpret this result as normal/abnormal . GRAN MAT (NEUT) % 57.5 % (test code = 770-8) IMM GRAN % (test code 0.30 % = 1590827895) LYMPH % (test code = 31.0 % 736-9) MONO % (test code = 8.6 % 5905-5) EOS % (test code = 2.3 % 713-8) BASO % (test code = 0.3 % 706-2) GRAN MAT x10^3(ANC) 3.73 10*3/uL 1.99-6.95 (test code = 0235412184) IMM GRAN x10^3 (test <0.03 0.00-0.06 code = 8792608620) LYMPH x10^3 (test code 2.01 10*3/uL 1.09-3.23 = 731-0) MONO x10^3 (test code 0.56 10*3/uL 0.36-1.02 = 742-7) EOS x10^3 (test code = 0.15 10*3/uL 0.06-0.53 711-2) BASO x10^3 (test code <0.03 0.01-0.09 = 704-7) Lab Interpretation Abnormal (test code = 24994-0) [facility] GLUCOSE (AUTOMATED)2021-02-23 02:29:54 Test Item Value Reference Range Interpretation Comments POCT GLU (test code = 3320883952) 155 mg/dL 70-110 H Lab Interpretation (test code = Abnormal 45502-2) [facility] GLUCOSE (AUTOMATED)2021-02-22 22:51:30 Test Item Value Reference Range Interpretation Comments POCT GLU (test code = 2132499330) 176 mg/dL 70-110 H Lab Interpretation (test code = Abnormal 56658-3) [facility] GLUCOSE (AUTOMATED)2021-02-22 17:09:21 Test Item Value Reference Range Interpretation Comments POCT GLU (test code = 5440064384) 194 mg/dL 70-110 H Lab Interpretation (test code = Abnormal 38510-7) [facility] (NA, K, CL, CO2, GLUCOSE, BUN, CREATININE, CA)2021-02-22 11:26:26 Test Item Value Reference Range Interpretation Comments NA (test code = 136 mmol/L 135-145 5181972002) K (test code = 3.9 mmol/L 3.5-5.0 0024215663) CL (test code = 108 mmol/L 98-108 2335664522) CO2 TOTAL (test code 25 mmol/L 23-31 = 4900754651) AGAP (test code = 2-16 7450577825) BUN (test code = 14 mg/dL 7-23 6647096483) GLUCOSE (test code = 109 mg/dL 70-110 2811961261) CREATININE (test code 0.84 mg/dL 0.60-1.25 = 0886064615) CALCIUM (test code = 8.6 mg/dL 8.6-10.6 4480179494) eGFR (test code = mL/min/1.73m2 3771708944) ANU (test code = ANU) Association of [...] or urine or abnormalities in imaging tests). [facility] WITH [id number] 10:58:44 Test Item Value Reference Range Interpretation [...] RDW-SD (test code = 44.7 fL 38.5-51.6 77605-1) RDW-CV (test code = 12.8 % 12.1-15.4 788-0) PLT (test code = See_Comment L [Automated 777-3) message] The sy stem which generated this result transmitted reference range : 150 - 328 10*3/ ?L. The reference r dustin was not used to interpret this result as normal/abnormal . MPV (test code = 10.5 fL 9.8-13.0 07150-3) NRBC/100 WBC (test See_Comment [Automat ed code = 6393708850) message] The system which generated this result transmitted reference range : 0.0 - 10.0 /100 WBCs. The refer ence range was not u sed to interpret th is result as normal/abnormal . NRBC x10^3 (test code <0.01 See_Comment [Auto mated = 4776173015) message] The s ystem which generated this result transmitted reference range : 10*3/?L. The reference range was not used to interpret this result as normal/abnormal . GRAN MAT (NEUT) % 51.1 % (test code = 770-8) IMM GRAN % (test code 0.30 % = 8166217559) LYMPH % (test code = 36.1 % 736-9) MONO % (test code = 10.3 % 5905-5) EOS % (test code = 1.7 % 713-8) BASO % (test code = 0.5 % 706-2) GRAN MAT x10^3(ANC) 3.31 10*3/uL 1.99-6.95 (test code = 0455431493) IMM GRAN x10^3 (test <0.03 0.00-0.06 code = 9221359712) LYMPH x10^3 (test code 2.34 10*3/uL 1.09-3.23 = 731-0) MONO x10^3 (test code 0.67 10*3/uL 0.36-1.02 = 742-7) EOS x10^3 (test code = 0.11 10*3/uL 0.06-0.53 711-2) BASO x10^3 (test code 0.03 10*3/uL 0.01-0.09 = 704-7) Lab Interpretation Abnormal (test code = 36247-0) [facility] GLUCOSE (AUTOMATED)2021-02-22 02:14:29 Test Item Value Reference Range Interpretation Comments POCT GLU (test code = 6000703711) 151 mg/dL 70-110 H Lab Interpretation (test code = Abnormal 50764-3) [facility] GLUCOSE (AUTOMATED)2021-02-21 21:29:33 Test Item Value Reference Range Interpretation Comments POCT GLU (test code = 8168416503) 147 mg/dL 70-110 H Lab Interpretation (test code = Abnormal 04321-8) [facility] GLUCOSE (AUTOMATED)2021-02-21 17:20:58 Test Item Value Reference Range Interpretation Comments POCT GLU (test code = 0500490021) 155 mg/dL 70-110 H Lab Interpretation (test code = Abnormal 87946-4) [facility] GLUCOSE (AUTOMATED)2021-02-21 14:49:36 Test Item Value Reference Range Interpretation Comments POCT GLU (test code = 1370861925) 146 mg/dL 70-110 H Lab Interpretation (test code = Abnormal 92757-7) [facility] WITH [id number] 11:59:53 Test Item Value Reference Range Interpretation [...] RDW-SD (test code = 43.3 fL 38.5-51.6 06144-4) RDW-CV (test code = 12.8 % 12.1-15.4 788-0) PLT (test code = See_Comment L [Automated 777-3) message] The sy stem which generated this result transmitted reference range : 150 - 328 10*3/ ?L. The reference r dustin was not used to interpret this result as normal/abnormal . MPV (test code = 9.9 fL 9.8-13.0 42429-7) NRBC/100 WBC (test See_Comment [Automat ed code = 5527265224) message] The system which generated this result transmitted reference range : 0.0 - 10.0 /100 WBCs. The refer ence range was not u sed to interpret th is result as normal/abnormal . NRBC x10^3 (test code <0.01 See_Comment [Auto mated = 4896103057) message] The s ystem which generated this result transmitted reference range : 10*3/?L. The reference range was not used to interpret this result as normal/abnormal . GRAN MAT (NEUT) % 66.2 % (test code = 770-8) IMM GRAN % (test code 0.50 % = 3040334916) LYMPH % (test code = 20.0 % 736-9) MONO % (test code = 12.7 % 5905-5) EOS % (test code = 0.3 % 713-8) BASO % (test code = 0.3 % 706-2) GRAN MAT x10^3(ANC) 6.16 10*3/uL 1.99-6.95 (test code = 4595503020) IMM GRAN x10^3 (test 0.05 10*3/uL 0.00-0.06 code = 9845001547) LYMPH x10^3 (test code 1.86 10*3/uL 1.09-3.23 [...] . Lab Interpretation Abnormal (test code = 29805-2) [facility]osphorus Cscpp6046-62-29 11:54:57 Test Item Value Reference Range Interpretation Comments PHOSPHORUS (test code = 3865283722) 3.7 mg/dL 2.5-5.0 Lab Interpretation (test code = Normal 23597-4) [facility] (NA, K, CL, CO2, GLUCOSE, BUN, CREATININE, CA)2021-02-21 11:54:56 Test Item Value Reference Range Interpretation Comments NA (test code = 136 mmol/L 135-145 7299803692) K (test code = 3.6 mmol/L 3.5-5.0 6275812436) CL (test code = 104 mmol/L 98-108 5249693540) CO2 TOTAL (test code = 23 mmol/L 23-31 8448016216) AGAP (test code = 2-16 4755729729) BUN (test code = 17 mg/dL 7-23 6046574835) GLUCOSE (test code = 176 mg/dL 70-110 H 2599869849) CREATININE (test code = 0.82 mg/dL 0.60-1.25 6328491493) CALCIUM (test code = 8.6 mg/dL 8.6-10.6 5300581584) eGFR (test code = mL/min/1.73m2 2305771784) ANU (test code = ANU) Association of [...] tests). Lab Interpretation Abnormal (test code = 75273-4) [facility] PAN[facility] (41610) (ALB,T.PRO,BILI T,BU/BC,ALT,AST,ALK PHOS)2021-02-21 11:54:56 Test Item Value Reference Range Interpretation Comments TOTAL BILI (test code = 5997539593) 0.6 mg/dL 0.1-1.1 BILI UNCON (test code = 4163513130) 0.3 mg/dL 0.1-1.1 BILI CONJ (test code = 4195473996) 0.0 mg/dL 0.0-0.3 T PROTEIN (test code = 8821406340) 7.4 g/dL 6.3-8.2 ALBUMIN (test code = 1409974793) 3.7 g/dL 3.5-5.0 ALK PHOS (test code = 7527372676) 87 U/L 34-122 ALTv (test code = 1742-6) 15 U/L 5-50 AST(SGOT) (test code = 8246601833) 28 U/L 13-40 Lab Interpretation (test code = Normal 36817-0) [facility] CenterMagnesium Iccoi6527-52-44 11:54:56 Test Item Value Reference Range Interpretation Comments MAGNESIUM (test code = 4653337521) 1.5 mg/dL 1.7-2.4 L Lab Interpretation (test code = Abnormal 01117-3) [facility] CenterProthrombin Time / [id number] 11:47:31 Test Item Value Reference Range Interpretation Comments PROTIME PATIENT (test See_Comment H [Auto mated message] code = 5964-2) The system [employer] generated this result transmitted ref erence range: 10.1 - 1 2.6 Seconds. The reference range was not used to int erpret this result as normal/abnormal . INR (test code = 6301-6) Nor mal INR <1.1; Warfarin Therap eutic range 2.0 to 3. 0 or 2.5 to 3.5, dep ending upon the indica tions. Lab Interpretation (test Abnormal code = 92442-7) [facility]eraPTT2021-07-23 11:47:31 Test Item Value Reference Range Interpretation Comments APTT Patient (test code = See_Comment [ Automated message] 3173-2) The system [employer] generated this result transmitted ref erence range: 26 - 36 Seconds. The re ference range was not u sed to interpret this result as normal/abnor mal. Lab Interpretation (test Normal code = 92550-4) [facility] CenterLactic Acid Whole [id number] 11:28:22 Test Item Value Reference Range Interpretation Comments LACTIC ACID (test code = 1.83 mmol/L 0.50-2.20 1972988814) Lab Interpretation (test code = Normal 57892-2) [facility] CenterCT ABDOMEN PELVIS W [id number] 03:45:35 Thickening of the distal gastric wall, with mild mucosal enhancement,possibly reflecting gastritis or peptic ulcer disease. 16 mm left adrenal nodule, indeterminate by density. Comparison with anyprior noncontrast CT of the chest or abdomen or follow-up with renal massprotocol imaging could be considered. RL: 460 AF: 59184 Ordering physician: ELSA LANDRY Indication: Acute abdominal [...] The patient is statuspost bilateral hip arthroplasty. Nemb, Radiant Results Inft User - 02/20/2021 10:46 [...] renal massprotocol imaging could be considered.RL: 460AFC: 21072 [facility] CenterXR CHEST 1 [id number] 03:38:53No radiographic evidence for acute cardiopulmonary abnormality. RL: 111 EXAMINATION:XR CHEST 1 VW ORDERING PHYSICIAN: ELSA MAHONEYRIMACLINICAL HISTORY: Fever ; COMPARISON:Chest one view dated 01/14/2021 TECHNIQUE:Single frontal view ofthe chest FINDINGS:Lungs are well expanded. No pulmonary consolidation or confluentpulmonary opacity. No pneumothorax or pleural effusion. Cardiomediastinalsilhouette is within normal limits. Degenerative changes of the thoracicspine. Nemb, Radiant Results Inft User - 02/20/2021 10:39 PM CDTFormattingof this note might be different from the original.EXAMINATION:XR CHEST 1 VWORDERING PHYSICIAN: ELSA AGUILARLINMACY HISTORY: Fever ;COMPARISON:Chest one view dated 01/14/2021TECHNIQUE:Single frontal view of the chestFINDINGS:Lungs are well expanded. No pulmonary consolidation or confluentpulmonary opacity. No pneumothorax or pleural effusion. Cardiomediastinalsilhouette is within normal limits. Degenerative changes of the thoracicspine.IMPRESSIONNo radiographic evidence for acute cardiopulmonary abnormality.RL: 111 [facility] CenterTRJEAN CLAUDEN [id number] 01:47:17 Test Item Value Reference Interpretation Comments Range TROPONIN I (test 0.030 ng/mL See_Comment [Automated code = 1014841210) message] The system which generated this result [...] biotin. Lab Interpretation Normal (test code = 96753-9) [facility] CenterURINALYSIS2021-07-23 01:47:06 Test Item Value Reference Range Interpretation Comments APPEARANCE (test code = Cloudy Clear A 5999713520) COLOR (test code = Dona Yellow A 5114465144) PH (test code = 4.8-8.0 9580716508) SP GRAVITY (test code = 1.003-1.030 5608492197) GLU U QUAL (test code = Normal Normal 7212762805) BLOOD (test code = 2+ Negative A 8484199271) KETONES (test code = Negative Negative 0017503319) PROTEIN (test code = 100 mg/dL Negative A 2887-8) UROBILIN (test code = Normal Normal 4999691298) BILIRUBIN (test code = Negative Negative 3069855791) NITRITE (test code = Negative Negative 9449914813) LEUK MIGDALIA (test code = 250/uL Negative A 7625500206) RBC/HPF (test code = See_Comment H [Autom ated message] 5012310062) The system [employer] generated this result transmit elaine reference range : 0 - 3 HPF. The refe rence range was not u sed to interpret th is result as normal/abnormal . WBC/HPF (test code = >182 See_Comment H [Autom ated message] 4162191995) The system [employer] generated this result transmit elaine reference range : 0 - 5 HPF. The refe rence range was not u sed to interpret th is result as normal/abnormal . BACTERIA (test code = Many Negative A 6337675937) AMORPHOUS (test code = Few Rare HPF A 4411980273) WBC CLUMPS (test code = See_Comment H [Au tomated message] 1185867321) The system [employer] generated this result transmit elaine reference range : <=1 HPF. The refere nce range was not u sed to interpret th is result as normal/abnormal . Lab Interpretation (test Abnormal code = 67191-2) [facility] CenterHEPATIC FUNCTION PANEL (88130) (ALB,T.PRO,BILI T,BU/BC,ALT,AST,ALK PHOS)2021-02-21 01:36:37 Test Item Value Reference Range Interpretation Comments TOTAL BILI (test code = 7205810932) 0.6 mg/dL 0.1-1.1 BILI UNCON (test code = 3903554506) 0.4 mg/dL 0.1-1.1 BILI CONJ (test code = 1887062567) 0.0 mg/dL 0.0-0.3 T PROTEIN (test code = 2368505285) 9.2 g/dL 6.3-8.2 H ALBUMIN (test code = 8737955091) 4.7 g/dL 3.5-5.0 ALK PHOS (test code = 9984661567) 126 U/L 34-122 H ALTv (test code = 1742-6) 18 U/L 5-50 AST(SGOT) (test code = 7070540126) 38 U/L 13-40 Lab Interpretation (test code = Abnormal 71205-5) [facility] CenterCOMP. METABOLIC PANEL (10037)2021-02-21 01:36:36 Test Item Value Reference Range Interpretation Comments NA (test code = 138 mmol/L 135-145 4370195973) K (test code = 4.4 mmol/L 3.5-5.0 2776745552) CL (test code = 100 mmol/L 98-108 9468945916) CO2 TOTAL (test code = 25 mmol/L 23-31 9158067503) AGAP (test code = 2-16 0760023641) BUN (test code = 19 mg/dL 7-23 3091420556) GLUCOSE (test code = 195 mg/dL 70-110 H 1174170317) CREATININE (test code = 0.90 mg/dL 0.60-1.25 9235392163) TOTAL BILI (test code = 0.6 mg/dL 0.1-1.4 5947922132) CALCIUM (test code = 9.8 mg/dL 8.6-10.6 8618992338) T PROTEIN (test code = 9.2 g/dL 6.3-8.2 H 8722960195) ALBUMIN (test code = 4.7 g/dL 3.5-5.0 8168711583) ALK PHOS (test code = 126 U/L 34-122 H 1649161610) ALTv (test code = 18 U/L 5-50 1742-6) AST(SGOT) (test code = 38 U/L 13-40 6502972634) eGFR (test code = mL/min/1.73m2 3992002367) ANU (test code = ANU) Association of [...] tests). Lab Interpretation Abnormal (test code = 75459-1) [facility] CenterLIPASE2021-07-23 01:36:16 Test Item Value Reference Range Interpretation Comments LIPASE (test code = 8264562848) 50 U/L 0-220 Lab Interpretation (test code = Normal 96413-5) [facility] CenterCOVID-19 (ID NOW RAPID TESTING)2021-02-21 01:35:20 Test Item Value Reference Range Interpretation Comments SARS-CoV-2 Rapid ID NOW Not Detected Not Detected (test code = 99091-5) ANU (test code = ANU) ID NOW COVID-19 Assay is an isothermal nucleic acid amplification test intended for the qualitative detection of nucleic acid from SARS-CoV-2 viral RNA in nasopharyngeal (TABLE MAKER) specimens. It is used under Emergency Use [...] indicated. Lab Interpretation Normal (test code = 73384-8) [facility] CenterCB WITH [id number] 01:28:19 Test Item Value Reference Range Interpretation Comments WBC (test code = See_Comment [Automated 9790-2) message] The sy stem which generated this [...] RDW-SD (test code = 43.2 fL 38.5-51.6 72601-2) RDW-CV (test code = 12.5 % 12.1-15.4 788-0) PLT (test code = See_Comment [Automated 777-3) message] The sy stem which generated this result transmitted reference range : 150 - 328 10*3/ ?L. The reference r dustin was not used to interpret this result as normal/abnormal . MPV (test code = 10.1 fL 9.8-13.0 30104-5) NRBC/100 WBC (test See_Comment [Automat ed code = 6667355765) message] The system which generated this result transmitted reference range : 0.0 - 10.0 /100 WBCs. The refer ence range was not u sed to interpret th is result as normal/abnormal . NRBC x10^3 (test code <0.01 See_Comment [Auto mated = 7190912671) message] The s ystem which generated this result transmitted reference range : 10*3/?L. The reference range was not used to interpret this result as normal/abnormal . GRAN MAT (NEUT) % 78.2 % (test code = 770-8) IMM GRAN % (test code 0.60 % = 2427899789) LYMPH % (test code = 11.1 % 736-9) MONO % (test code = 9.2 % 5905-5) EOS % (test code = 0.4 % 713-8) BASO % (test code = 0.5 % 706-2) GRAN MAT x10^3(ANC) 7.80 10*3/uL 1.99-6.95 H (test code = 4301823458) IMM GRAN x10^3 (test 0.06 10*3/uL 0.00-0.06 code = 7096521938) LYMPH x10^3 (test code 1.11 10*3/uL 1.09-3.23 = 731-0) MONO x10^3 (test code 0.92 10*3/uL 0.36-1.02 = 742-7) EOS x10^3 (test code = 0.04 10*3/uL 0.06-0.53 L 711-2) BASO x10^3 (test code 0.05 10*3/uL 0.01-0.09 = 704-7) Lab Interpretation Abnormal (test code = 03349-1) [facility] CenterLactic Acid Whole Wywnx4677-77-08 01:04:41 Test Item Value Reference Range Interpretation Comments LACTIC ACID (test code = 2.15 mmol/L 0.50-2.20 1692114277) Lab Interpretation (test code = Normal 65398-9) [facility] CenterCT Chest Wo Zktricwc9008-15-28 18:55:19 EXAMINATION:CT CHEST WO CONTRAST CLINICAL HISTORY:R06.02 [...] acute cardiopulmonary disease. [id number] Interface, Radiology Results 11/07/2020 1:58 PM CDT EXAMINATION:CT CHEST WO [...] finding.6.No acute skeletal abnormalities seen.IMPRESSION:No acute cardiopulmonary disease.[id number] 2019-10-02 16:50:00 Test Item Value Reference Range Interpretation Comments GLUCOSE BEDSIDE TESTING (test code = 98 mg/dL 70-110 N GLUBED) - XR FLUOROSCOPY 0-60 [id number] 16:05:00 Name: ANABELA RUTH [facility] : 1955 Age/S: 64 / M [address] [address] Unit #: [id number] Loc: [place] [address] Phys: Trever Calvillo MD Acct: [id number] Dis Date: Status: [facility] PHONE #: [phone] Exam Date: 10/02/2019 1500 FAX #: Reason: LEFT FEMUR JUN PLATE REMOVAL EXAMS: CPT: [id number] XR FLUOROSCOPY 0-60 MIN 93321 Fluoro Time: 17 SEC DAP (Gy m2): [...] MD PAGE 1 Signed Report Name: [place] : 1955 Age/S: 64 / M [address] [address] Unit #: [id number] Loc: [place] [address] Phys: Trever Calvillo MD Acct: [id number] Dis Date: Status: REG SDC PHONE #: [phone] Exam Date: 10/02/2019 1500 FAX #: Reason: LEFT FEMUR JUN PLATE REMOVAL EXAMS: CPT: [id number] XR FLUOROSCOPY 0-60 MIN 36014 Fluoro Time: 17 SEC DAP (Gy m2): Air Kerma (mGy): <Continued> Technologist: Raine Vera, RT(R) Trnscb Date/Time: 10/02/2019 (4852) [email or web address] Orig Print D/T: S: 10/02/2019 (5608) PAGE 2 Signed Report UA RFLX MICR CULT IF [id number] 08:47:00 Test Item Value Reference Range Interpretation [...] PRE OP EVALUA RFLX MICR CULT IF [id number] 08:46:00 Test Item Value Reference Range Interpretation [...] Dysuria/FrequencySpec Comments: INDICATION: PRE OP EVALBASIC METABOLIC [id number] 07:29:00 Test Item Value Reference Range Interpretation [...] CA) 9.1 MG/DL 8.5-10.1 N VITAMIN D 80-[id number] 07:29:00 Test Item Value Reference Range Interpretation Comments VITAMIN D 14.1 ng/mL 30.0-100.0 A Vitamin D defic iency has 25-HYDROXY (test been define d by the code = VITD25) [place] of edicine and an Endocrine So ciety practice guidel ine as alevel of serum 25-OH vitamin D less than 20 ng/mL (1,2).The Endocrine Society went on to further define vitamin Dinsufficiency as a level between 21 and 29 ng/mL (2).1. IOM (Ins titute of Medicine). 2010 . Dietary reference int akes for calcium and D. [place]: [employer] .2. Sailaja MF, [place], Dianna i MOSER, et al. Evaluatio n, treatment, and prevention of vitamin D deficiency: an Endocrine Society clinica l practice guideline. CONRAD EM. 2010; 96(7):1911-30.P erformed At: [facility] [address] [place], [place] [id number] Trever Ac MD Ph:[phone] BASIC METABOLIC [id number] 07:08:00 Test Item Value Reference Range Interpretation [...] CA) 9.1 MG/DL 8.5-10.1 N VITAMIN D 47-[id number] 07:08:00 Test Item Value Reference Range Interpretation Comments VITAMIN D 25-HYDROXY (test code = 14.1 VITD25) CBC W/AUTO [id number] 14:54:00 Test Item Value Reference Range Interpretation [...] code = NO DIFF/SCN CRITERIA MDIFF) SED [id number] 14:54:00 Test Item Value Reference Range Interpretation Comments SED RATE (test code = SEDW) 80 mm/hr 0-20 H - XR CHEST 2 [id number] 14:38:00 Name: ANABELA RUTH [place] : 1955 Age/S: 64 / M [address] [address] Unit #: [id number] Loc: [place] [address] Phys: Trever Calvillo MD Acct: [id number] Dis Date: Status: PRE SDC PHONE #: [phone] Exam Date: 09/19/2019 1400 FAX #: Reason: PREOP EXAMS: CPT: [id number] XR CHEST 2 V 83938 Fluoro Time: DAP (Gy m2): Air Kerma [...] PAGE 1 Signed Report Name: ANABELA RUTH [place] : 1955 Age/S: 64 / M [address] [address] Unit #: [id number] Loc: [place] [address] Phys: Trever Calvillo MD Acct: [id number] Dis Date: Status: PRE ALC PHONE #: [phone] Exam Date: 09/19/2019 1400 FAX #: Reason: PREOP EXAMS: CPT: [id number] XR CHEST 2 V 47562 Fluoro Time: DAP (Gy m2): Air Kerma (mGy): <Continued> Technologist: Raine Vera, RT(R) Trnscb Date/Time: 09/19/2019 (1438) [email or web address] Orig Print D/T: S: 09/19/2019 (7045) PAGE 2 Signed ReportC REACTIVE [id number] 13:53:00 Test Item Value Reference Range Interpretation Comments C REACTIVE PROTEIN (test code = 0.629 MG/DL 0.000-0.3 H CRP) BASIC METABOLIC [id number] 13:52:00 Test Item Value Reference Range Interpretation [...] CA) 9.1 MG/DL 8.5-10.1 N VITAMIN D [id number] 13:52:00 Test Item Value Reference Range Interpretation Comments VITAMIN D 25-HYDROXY (test code = VITD25) PROTHROMBIN [id number] 13:42:00 Test Item Value Reference Range Interpretation Comments PT PATIENT (test code = PTP) 13.2 SECONDS 9.3-12.9 H INTERNATIONAL NORMAL RATIO 1.16 INR Unit 0.8-1.2 N (test code = INR) THROMBOPLASTIN TIME [id number] 13:42:00 Test Item Value Reference Range Interpretation Comments THROMBOPLASTIN TIME PARTIAL 34.7 SECONDS 26-35 N (test code = PTT) CBC W/AUTO [id number] 13:33:00 Test Item Value Reference Range Interpretation [...] code = NO DIFF/SCN CRITERIA MDIFF) SED [id number] 13:33:00 Test Item Value Reference Range Interpretation Comments SED RATE (test code = SEDW) mm/hr 0-20 - CT LOWER EXTRM W/O C [id number] 11:45:00 Name: ANABELA RUTH [facility] : 1955 Age/S: 64 / M [address] [address] Unit #: [id number] Loc: [place] [address] Phys: Trever Calvillo MD Acct: [id number] Dis Date: Status: PRE CLI PHONE #: [phone] Exam Date: 09/19/2019 1100 FAX #: Reason: PAIN LFT KNEE EXAMS: CPT: [id number] [place] L[place] EXTRM W/[place] [address] EXAM: - CTLOWER EXTRM W/O C LT [...] 1 Signed Report (CONTINUED) Name: ANABELA RUTH [facility] : 1955 Age/S: 64 / M [address] [address] [place] Unit #: [id number] Loc: [place] [address] Phys: Trever Calvillo MD Acct: [id number] Dis Date: Status: PRE CLI PHONE #: [phone] Exam Date: 09/19/2019 1100 FAX #: Reason: PAIN LFT KNEE EXAMS: CPT: [id number] CT LOWER EXTRM W/[place] [address] <Continued> at 1145 Reported and signed by: Oswald Devi MD CC: Trever Calvillo MD; Kiran Loera MD Technologist:Desire Hernandez, RT(R)(MR) CTDI: DLP: Trnscb Date/Time: 09/19/2019 (5228) [email or web address] Orig Print D/T: S: 09/19/2019 (0832) PAGE 2 Signed ReportXR CHEST 2 [id number] 01:04:06 No acute intrathoracic abnormality.* * * [...] arthritic changes throughout spine andshoulders.IMPRESSIONNo acute intrathoracic abnormality.[facility]
[2021-12-23 04:33] LABS: Absolute Lymphocytes (CBC) 1.8 K/uL (0.7-4.9); Hematocrit 36.3 % (39.6-49.0); Lymphocytes % 27.5 % (15.3-44.8); MPV 7.9 fL (7.6-11.3); RBC Red Blood Cell Count 3.78 M/uL (4.33-5.43)
[2021-12-23 04:45] LABS: Albumin 3.1 g/dL (3.4-5.0); Bilirubin Total 0.4 mg/dL (0.2-1.0); Potassium 3.6 mmol/L (3.5-5.1); Protein, Total 8.1 g/dL (6.4-8.2)
[2021-12-23] MEDS ORDERED: ONDANSETRON 4 MG/2 ML VIAL ONE ×2 (04:52→09:47)
[2021-12-23] MEDS ORDERED: MORPHINE 4 MG/ML SYR ONE ×2 (04:52→09:47)
[2021-12-23 05:43] LABS: Urine Blood 3+ (Negative); Urine Glucose Negative (Negative); Urine Protein 3+ (Negative)
[2021-12-23 06:01] LABS: Protime INR 1.09
--- NOTE | 2021-12-23 06:42 | EDPHYS ---
Physician Documentation [facility] Name: David Lopez Age: 66 yrs Sex: Male : 1955 Arrival Date: 12/23/2021 Time: 03:42 Bed 15 Private MD: ED Physician Dannie Rudolph HPI: 12/24 07:31 This 66 yrs old Male presents to ER via Wheelchair with complaints of kdr hematuria. 07:31 The patient presents with Patient's states that patient has been urinating blood kdr off and on for the last couple days. To have gotten worse today. He is also had some mild suprapubic abdominal pain. Onset: The symptoms/episode began/occurred gradually, 2 day(s) ago. Modifying factors: The symptoms are alleviated by nothing, the symptoms are aggravated by nothing. Associated signs and symptoms: The patient has no apparent associated signs or symptoms. Severity of symptoms: At their worst the symptoms were mild, in the emergency department the symptoms are unchanged. The patient has experienced similar episodes in the past, a few times. The patient has not recently seen a physician. Historical: - Allergies: 12/23 03:50 No Known Allergies; lp1 - Home Meds: 03:44 metformin 500 mg Oral Tb24 1 tab 2 times per day [Active]; sotalol 80 mg Oral tab daily lp1 [Active]; atorvastatin 80 mg Oral tab 1 tab once daily [Active]; clopidogrel 75 mg oral tab 1 tab once daily [Active]; Levemir U-100 Insulin 100 unit/mL subcutaneous soln 20 unit [Active]; clonazepam 1 mg Oral tab 1 tab 2 times per day [Active]; venlafaxine 150 mg oral tr24 once daily [Active]; buprenorphine HCl 8 mg sublingual subl every 8 hours [Active]; indomethacin 25 mg Oral cap 1 cap 2 times per day [Active]; pantoprazole 40 mg oral TbEC 1 tab once daily [Active]; memantine 10 mg oral tab 1 tab 2 times per day [Active]; aspirin 81 mg oral TbEC once daily [Active]; - PMHx: 03:44 CVA; Diabetes - NIDDM; Hypertension; Parkinsons; lp1 - PSHx: 03:44 hip replacement; lp1 - Immunization history:: Adult Immunizations unknown. - Social history:: Smoking status: Patient denies any tobacco usage or history of. ROS: 12/24 07:31 Constitutional: Negative for fever, chills, and weight loss, Eyes: Negative for injury, kdr pain, redness, and discharge, ENT: Negative for injury, pain, and discharge, Neck: Negative for injury, pain, and swelling, Cardiovascular: Negative for chest pain, palpitations, and edema, Respiratory: Negative for shortness of breath, cough, wheezing, and pleuritic chest pain, Back: Negative for injury and pain, MS/Extremity: Negative for injury and deformity, Skin: Negative for injury, rash, and discoloration, Neuro: Negative for headache, weakness, numbness, tingling, and seizure activity. Psych: Negative for depression, anxiety, suicide ideation, homicidal ideation, and hallucinations, Allergy/Immunology: Negative for hives, rash, and allergies, Endocrine: Negative for neck swelling, polydipsia, polyuria, polyphagia, and marked weight changes, Hematologic/Lymphatic: Negative for swollen nodes, abnormal bleeding, and unusual bruising. Abdomen/GI: Positive for abdominal pain, nausea. : Positive for urinary symptoms, hematuria, Negative for injury or acute deformity. Exam: 07:31 Constitutional: This is a well developed, well nourished patient who is awake, alert, kdr and in no acute distress. Head/Face: Normocephalic, atraumatic. Eyes: Pupils equal round and reactive to light, extra-ocular motions intact. Lids and lashes normal. Conjunctiva and sclera are non-icteric and not injected. Cornea within normal limits. Periorbital areas with no swelling, redness, or edema. Neck: Trachea midline, no thyromegaly or masses palpated, and no cervical lymphadenopathy. Supple, full range of motion without nuchal rigidity, or vertebral point tenderness. No Meningismus. Chest/axilla: Normal chest wall appearance and motion. Nontender with no deformity. No lesions are appreciated. Cardiovascular: Regular rate and rhythm with a normal S1 and S2. No gallops, murmurs, or rubs. Normal PMI, no JVD. No pulse deficits. Respiratory: Lungs have equal breath sounds bilaterally, clear to auscultation and percussion. No rales, rhonchi or wheezes noted. No increased work of breathing, no retractions or nasal flaring. Abdomen/GI: Soft, non-tender, with normal bowel sounds. No distension or tympany. No guarding or rebound. No evidence of tenderness throughout. Back: No spinal tenderness. No costovertebral tenderness. Full range of motion. Skin: Warm, dry with normal turgor. Normal color with no rashes, no lesions, and no evidence of cellulitis. MS/ Extremity: Pulses equal, no cyanosis. Neurovascular intact. Full, normal range of motion. Neuro: Awake and alert, GCS 15, oriented to person, place, time, and situation. Cranial nerves II-XII grossly intact. Motor strength 5/5 in all extremities. Sensory grossly intact. Cerebellar exam normal. Normal gait. Psych: Awake, alert, with orientation to person, place and time. Behavior, mood, and affect are within normal limits. Vital Signs: 12/23 03:50 BP 117 / 61; Pulse 73; Resp 19; Pulse Ox 100% on R/A; Weight 65.77 kg; Height 5 ft. 4 5 in. (162.56 cm); 07:00 BP 132 / 77; Pulse 79; Resp 18; Pulse Ox 99% on R/A; ph 08:00 BP 142 / 97; Pulse 85; Resp 18; Pulse Ox 98% on R/A; ph 09:00 BP 136 / 91; Pulse 85; Resp 16; Pulse Ox 100% on R/A; ph 09:53 BP 153 / 80; Pulse 83; Resp 18; Pulse Ox 99% on R/A; ph 11:00 BP 141 / 89; Pulse 84; Resp 18; Pulse Ox 98% on R/A; ph 12:00 BP 132 / 78; Pulse 81; Resp 18; Pulse Ox 99% on R/A; ph 13:00 BP 146 / 78; Pulse 85; Resp 16; Temp 97.9; Pulse Ox 100% on R/A; ph 03:50 Body Mass Index 24.89 (65.77 kg, 162.56 cm) 5 MDM: 06:41 Patient medically screened. kdr 12/24 07:31 Data reviewed: vital signs, nurses notes, lab test result(s), radiologic studies. kdr Counseling: I had a detailed discussion with the patient and/or guardian regarding: the historical points, exam findings, and any diagnostic results supporting the discharge/admit diagnosis, lab results, radiology results, the need for outpatient follow up. 12/23 04:00 Order name: CBC with Diff; Complete Time: 06:38 [facility] 12/23 04:00 Order name: CMP; Complete Time: 06:38 [facility] 12/23 04:00 Order name: Lipase; Complete Time: 06:38 [facility] 12/23 04:00 Order name: PT-INR; Complete Time: 06:38 [facility] 12/23 04:00 Order name: Urine Culture [facility] 12/23 04:00 Order name: Type And Screen; Complete Time: 06:38 [facility] 12/23 04:00 Order name: CT Abd/Pelvis - IV Contrast Only [facility] 12/23 04:28 Order name: Glucose, Ancillary Testing; Complete Time: 06:38 [facility] 12/23 05:43 Order name: Urine Dipstick-Ancillary; Complete Time: 06:38 [facility] 12/23 07:29 Order name: COVID-19 SARS RT PCR (Document "Date of Onset" if Symptomatic) ph 12/23 09:40 Order name: CBC with Automated Diff [facility] 12/23 09:40 Order name: Comprehensive Metabolic Panel [facility] 12/23 12:27 Order name: CBC Smear Scan [facility] 12/23 04:00 Order name: IV Saline Lock; Complete Time: 04:19 [facility] 12/23 04:00 Order name: Labs collected and sent; Complete Time: 04:19 [facility] 12/23 07:15 Order name: Mckeon: 18 Fr Coude; Complete Time: 08:20 [facility] 12/23 09:40 Order name: 60g Consistent Carbohydrate (ADA 1800/1999) EDMS Administered Medications: 12/23 04:55 Drug: morphine 4 mg Route: IVP; Site: left antecubital; sm5 04:55 Drug: Zofran (Ondansetron) 4 mg Route: IVP; Site: left antecubital; sm5 07:00 Drug: Rocephin - (cefTRIAXone) 1 grams Route: IVPB; Infused Over: 30 mins; Site: left sm5 antecubital; 07:30 Follow up: Response: No adverse reaction; IV Status: Completed infusion; IV Intake: 50mlph 07:45 Drug: Ativan (LORazepam) 0.5 mg Route: IVP; Site: left antecubital; ph 08:40 Follow up: Response: No adverse reaction; RASS: Alert and Calm (0) ph 09:47 Drug: Zofran (Ondansetron) 4 mg Route: IVP; Site: left antecubital; ph 10:30 Follow up: Response: No adverse reaction ph 09:49 Drug: morphine 4 mg Route: IVP; Site: left antecubital; ph 10:30 Follow up: Response: No adverse reaction; Pain is decreased ph Disposition Summary: 12/23/21 07:19 Hospitalization Ordered Hospitalization Status: Inpatient Admission kdr Location: Telemetry/[facility] (Inpatient)(12/23/21 07:19) kdr Condition: Fair(12/23/21 07:19) kdr Problem: new(12/23/21 07:19) kdr Symptoms: have improved(12/23/21 07:19) kdr Bed/Room Type: Standard kdr Provider: Forrest Riggs(12/23/21 07:20) kdr Room Assignment: [facility](12/23/21 12:52) dw Diagnosis - Acute cystitis with hematuria(12/23/21 07:19) kdr - Emphysematous Cystitis kdr Forms: - Medication Reconciliation Form kdr - SBAR form kdr Signatures: Dispatcher [employer] EDMS Rebecca Gonzalez Diana RN RN dw Dannie Rudolph MD MD kdr Lyndsay Benitez RN RN lp1 Brianna Belle RN RN Bettye Dean, RN RN sm5 Corrections: (The following items were deleted from the chart) 07:17 06:41 Home kdr kdr 07:17 06:41 new kdr kdr 07:17 06:41 have improved kdr kdr 07:17 06:41 Stable kdr kdr 07:17 06:41 UTI/ Urinary tract infection, site not specified kdr kdr 07:17 06:41 Acute cystitis with hematuria kdr kdr 07:20 07:19 Tyrese Hill kdr kdr 12:52 07:19 kdr dw
--- NOTE | 2021-12-23 06:42 | ER ---
Nurse's Notes [facility] Name: David Lopez Age: 66 yrs Sex: Male : 1955 Arrival Date: 12/23/2021 Time: 03:42 Bed 15 Private MD: Diagnosis: Acute cystitis with hematuria;Emphysematous Cystitis Presentation: 12/23 03:43 Chief complaint: Spouse and/or significant other states: reports patient has been lp1 urinating blood off and on for a few days, increased amount of blood today, reports abdominal pain. Coronavirus screen: At this time, the client does not indicate any symptoms associated with coronavirus-19. Ebola Screen: No symptoms or risks identified at this time. Risk Assessment: Do you want to hurt yourself or someone else? Patient reports no desire to harm self or others. 03:43 Method Of Arrival: Wheelchair lp1 03:54 Initial Sepsis Screen: Does the patient meet any 2 criteria? No. Patient's initial sm5 sepsis screen is negative. Does the patient have a suspected source of infection? No. Patient's initial sepsis screen is negative. Onset of symptoms was December 23, 2021. 03:54 Acuity: LEANNA 3 sm5 Historical: - Allergies: 03:50 No Known Allergies; lp1 - Home Meds: 03:44 metformin 500 mg Oral Tb24 1 tab 2 times per day [Active]; sotalol 80 mg Oral tab daily lp1 [Active]; atorvastatin 80 mg Oral tab 1 tab once daily [Active]; clopidogrel 75 mg oral tab 1 tab once daily [Active]; Levemir U-100 Insulin 100 unit/mL subcutaneous soln 20 unit [Active]; clonazepam 1 mg Oral tab 1 tab 2 times per day [Active]; venlafaxine 150 mg oral tr24 once daily [Active]; buprenorphine HCl 8 mg sublingual subl every 8 hours [Active]; indomethacin 25 mg Oral cap 1 cap 2 times per day [Active]; pantoprazole 40 mg oral TbEC 1 tab once daily [Active]; memantine 10 mg oral tab 1 tab 2 times per day [Active]; aspirin 81 mg oral TbEC once daily [Active]; - PMHx: 03:44 CVA; Diabetes - NIDDM; Hypertension; Parkinsons; lp1 - PSHx: 03:44 hip replacement; lp1 - Immunization history:: Adult Immunizations unknown. - Social history:: Smoking status: Patient denies any tobacco usage or history of. Screenin:53 Abuse screen: Denies threats or abuse. Denies injuries from another. Nutritional sm5 screening: No deficits noted. Tuberculosis screening: No symptoms or risk factors identified. Fall Risk No fall in past 12 months (0 pts). Secondary diagnosis (15 points) impaired mobility, No IV (0 pts). Ambulatory Aid- None/Bed Rest/Nurse Assist (0 pts). Gait- Normal/Bed Rest/Wheelchair (0 pts) Mental Status- Oriented to own ability (0 pts). Total Bassett Fall Scale indicates No Risk (0-24 pts). Assessment: 03:52 General: Appears in no apparent distress. Behavior is cooperative. Pain: Complains of sm5 pain in abdomen. Neuro: No deficits noted. Level of Consciousness is awake, alert, obeys commands, Oriented to person, place, time, situation. Cardiovascular: No deficits noted. Capillary refill < 3 seconds Patient's skin is warm and dry. Respiratory: No deficits noted. Airway is patent Trachea midline Respiratory effort is even, unlabored. GI: Reports lower abdominal pain, upper abdominal pain, constipation. : Reports hematuria. 07:15 General: Appears in no apparent distress. well groomed, Behavior is calm, cooperative. ph Pain: Denies pain. Complains of pain in reports having abdominal pain which has been relieved w/ IV pain meds. Neuro: Level of Consciousness is awake, alert, obeys commands, Oriented to person, place, time, situation. Cardiovascular: Capillary refill < 3 seconds in bilateral fingers Patient's skin is warm and dry. Respiratory: Airway is patent Respiratory effort is even, unlabored. GI: Reports lower abdominal pain. : Parent/caregiver report the patient having blood in urine. Derm: Skin is intact, Skin is pink, warm \\T\\ dry. Musculoskeletal: Circulation, motion, and sensation intact. Range of motion: limited in lower extremities, legs are contracted, pt non-ambulatory. 08:27 Reassessment: Patient appears in no apparent distress at this time. Patient and/or ph family updated on plan of care and expected duration. Pain level reassessed. Patient is alert, oriented x 3, equal unlabored respirations, skin warm/dry/pink. 09:49 Reassessment: Patient appears in no apparent distress at this time. Patient and/or ph family updated on plan of care and expected duration. Pain level reassessed. Patient is alert, oriented x 3, equal unlabored respirations, skin warm/dry/pink. Pt c/o pain in lower abdomen, left to go home, states, " I've been up all night and I need to go home and rest." Family contact information: Kina () [phone], Sudha (daughter) [phone]. 11:00 Reassessment: Patient appears in no apparent distress at this time. No changes from ph previously documented assessment. Patient and/or family updated on plan of care and expected duration. Pain level reassessed. Pt resting comfortably w/ eyes closed. 12:00 Reassessment: Patient appears in no apparent distress at this time. Patient and/or ph family updated on plan of care and expected duration. Pain level reassessed. 13:35 Reassessment: Patient appears in no apparent distress at this time. No changes from ph previously documented assessment. Patient and/or family updated on plan of care and expected duration. Pain level reassessed. Report called to Mary ARRIETA on 4th floor, pt currently eating lunch, will transport to inpatient room after pt is done eating. Vital Signs: 03:50 BP 117 / 61; Pulse 73; Resp 19; Pulse Ox 100% on R/A; Weight 65.77 kg; Height 5 ft. 4 sm5 in. (162.56 cm); 07:00 BP 132 / 77; Pulse 79; Resp 18; Pulse Ox 99% on R/A; ph 08:00 BP 142 / 97; Pulse 85; Resp 18; Pulse Ox 98% on R/A; ph 09:00 BP 136 / 91; Pulse 85; Resp 16; Pulse Ox 100% on R/A; ph 09:53 BP 153 / 80; Pulse 83; Resp 18; Pulse Ox 99% on R/A; ph 11:00 BP 141 / 89; Pulse 84; Resp 18; Pulse Ox 98% on R/A; ph 12:00 BP 132 / 78; Pulse 81; Resp 18; Pulse Ox 99% on R/A; ph 13:00 BP 146 / 78; Pulse 85; Resp 16; Temp 97.9; Pulse Ox 100% on R/A; ph 03:50 Body Mass Index 24.89 (65.77 kg, 162.56 cm) sm5 ED Course: 03:42 Patient arrived in ED. bp1 03:43 Dannie Rudolph MD is Attending Physician. kdr 03:49 Bettye Dean, RN is Primary Nurse. sm5 03:50 Arm band placed on right wrist. lp1 03:54 Triage completed. sm5 03:54 Patient has correct armband on for positive identification. Bed in low position. Call sm5 light in reach. Side rails up X2. 04:19 CBC with Diff Sent. sm5 04:19 CMP Sent. sm5 04:20 Lipase Sent. sm5 04:20 PT-INR Sent. sm5 04:20 Type And Screen Sent. sm5 04:20 Inserted saline lock: 22 gauge in left antecubital area, using aseptic technique. Blood sm5 collected. 04:20 Inserted saline lock: 22 gauge in right forearm, using aseptic technique. sm5 05:21 CT Abd/Pelvis - IV Contrast Only In Process Unspecified. EDMS 05:50 Urine Culture Sent. sm5 05:50 PT-INR Sent. sm5 07:18 Tyrese Hill MD is Hospitalizing Provider. kdr 07:20 Forrest Riggs MD is Hospitalizing Provider. kdr 07:57 Primary Nurse role handed off by Bettye Dean, BERNY bd 07:57 Brianna Belle, BERNY is Primary Nurse. ph 08:00 Coud inserted, using sterile technique, 18 Fr. Returned bloody urine. To gravity ph drainage. Patient tolerated poorly. 08:32 No provider procedures requiring assistance completed. Patient admitted, IV remains in ph place. Administered Medications: 04:55 Drug: morphine 4 mg Route: IVP; Site: left antecubital; sm5 04:55 Drug: Zofran (Ondansetron) 4 mg Route: IVP; Site: left antecubital; sm5 07:00 Drug: Rocephin - (cefTRIAXone) 1 grams Route: IVPB; Infused Over: 30 mins; Site: left sm5 antecubital; 07:30 Follow up: Response: No adverse reaction; IV Status: Completed infusion; IV Intake: 50mlph 07:45 Drug: Ativan (LORazepam) 0.5 mg Route: IVP; Site: left antecubital; ph 08:40 Follow up: Response: No adverse reaction; RASS: Alert and Calm (0) ph 09:47 Drug: Zofran (Ondansetron) 4 mg Route: IVP; Site: left antecubital; ph 10:30 Follow up: Response: No adverse reaction ph 09:49 Drug: morphine 4 mg Route: IVP; Site: left antecubital; ph 10:30 Follow up: Response: No adverse reaction; Pain is decreased ph Medication: 08:32 VIS not applicable for this client. ph Intake: 07:30 IV: 50ml; Total: 50ml. ph Outcome: 06:41 Discharge ordered by MD. kdr 07:19 Decision to Hospitalize by Provider. kdr 14:26 Patient left the ED. ph 14:26 Admitted to Med/surg via stretcher, with chart, Report called to Mary ARRIETA ph 14:26 Condition: stable 14:26 Instructed on the need for admit. Signatures: Dispatcher [employer] EDMS Rebecca Gonzalez Kevin, MD MD [facility] Lyndsay Benitez, RN RN lp1 Brianna Belle RN RN Myesha Colmenares Sarah, RN RN sm5 Corrections: (The following items were deleted from the chart) 03:53 03:53 Fall Risk None identified. 5 5
[2021-12-23] MEDS ORDERED: CEFTRIAXONE 1000 MG/VIAL ONE (07:00)
[2021-12-23] MEDS ORDERED: NA CHLORIDE 0.9% 50 ML ONE (07:00)
[2021-12-23] MEDS ORDERED: LORazepam 2 MG/ML VIAL ONE (07:36)
[2021-12-23] MEDS ORDERED: MORPHINE 2 MG/ML SYR IV PRN (09:37)
[2021-12-23] MEDS ORDERED: ACETAMINOPHEN 500 MG TAB PO PRN (09:37)
[2021-12-23] MEDS ORDERED: ALBUTEROL 2.5 MG/3 ML NEB SOL NEB PRN (09:37)
[2021-12-23] MEDS: INSULIN -REGULAR HUMAN 50 UNIT/0.5 ML ML SQ SCH ×3 (11:30→21:00)
[2021-12-23 11:40] LABS: Absolute Lymphocytes (CBC) 1.9 K/uL (0.7-4.9); Hematocrit 34.6 % (39.6-49.0); Lymphocytes % 22.5 % (15.3-44.8); MPV 8.3 fL (7.6-11.3); RBC Red Blood Cell Count 3.62 M/uL (4.33-5.43)
[2021-12-23 12:10] VITALS: BMI 24.8
--- NOTE | 2021-12-23 12:25 | P.HP ---
Certification for Inpatient Patient admitted to: Observation With expected LOS: <2 Midnights Patient will require the following post-hospital care: None Practitioner: I am a practitioner with admitting privileges, knowledge of patient current condition, hospital course, and medical plan of care. Services: Services provided to patient in accordance with Admission requirements found in Title 42 Section 412.3 of the Code of Federal Regulations Patient History Date of Service: 12/23/21 Reason for admission: Hematuria History of Present Illness: 66-year-old male with past medical history of hypertension, chronic pain syndrome follows with Dr. Saldana at the pain clinic, history of CAD, atrial fibrillation-not on any anticoagulation, Parkinson's disease, diabetes mellitus, CVA with mild right hemiparesis, recurrent UTI admitted because of noted hematuria since the last 3 days. Patient denies any fever or chills. He admits to some suprapubic cramps. On presentation in the ED he had a CT with findings of emphysematous cystitis. Urology consult was obtained. We recommend Mckeon placement and antibiotics. Mckeon was placed with darkish urine output. Patient denies prior cystoscopy or history of renal calculus. He has been admitted for IV antibiotics. Review of his medication shows patient has been taking Plavix and was recently added indomethacin for pain control. Allergies No Known Allergies Allergy (Verified 08/12/18 00:38) Home Medications: Sotalol HCl [Betapace*] 80 mg PO DAILY 08/12/18 Atorvastatin Calcium [Lipitor] 80 mg PO DAILY #30 tablet 08/13/18 Clopidogrel Bisulfate [Plavix*] 75 mg PO DAILY #30 tablet 08/13/18 Metformin HCl [Metformin HCl ER] 1 tab PO BID 11/14/20 buprenorphine HCL [Buprenorphine HCl] 8 mg SL Q8HR 11/14/20 clonazePAM [Clonazepam] 1 mg PO BID 11/14/20 Pantoprazole [Protonix Tab*] 40 mg PO DAILY #40 tab 11/15/20 Ascorbic Acid [Vitamin C] 1 tab PO DAILY 09/13/21 Aspirin 1 tab PO DAILY 09/13/21 Cyanocobalamin (Vitamin B-12) [Vitamin B-12] 1 tab PO DAILY 09/13/21 Insulin Detemir [Levemir Flextouch] 20 unit SQ BID 09/13/21 Iron 65 mg PO DAILY 09/13/21 Memantine HCl [Namenda] 10 mg PO BID 09/13/21 Indomethacin 25 mg PO BID 12/23/21 Venlafaxine HCl [Venlafaxine HCl ER] 150 mg PO DAILY 12/23/21 - Past Medical/Surgical History Diabetic: Yes -: Diabetes mellitus type 2 insulin-dependent -: GERD -: BPH -: Depression -: HTN -: Chronic Pain -: History of asbestosis exposure -: Atrial fibrillation -: left kidney cancer 18 years ago -: CVA -: femur sx X3 -: neck surg -: [place] hip replacement -: right knee replacement -: left kidney removal -: back surgery Psychosocial/ Personal History: Patient lives at home - Family History Mother -: Diabetes Brother -: Diabetes - Social History Smoking Status: Smoker current status UNK Alcohol use: No CD- Drugs: No Caffeine use: No Place of Residence: Home Review of Systems 10-point ROS is otherwise unremarkable Physical Examination - Physical Exam General: Alert, In no apparent distress, Oriented x3 HEENT: Atraumatic, Normocephalic, PERRLA Neck: Supple, 2+ carotid pulse no bruit, JVD not distended Respiratory: Clear to auscultation bilaterally, Normal air movement Cardiovascular: No edema, Normal pulses, Regular rate/rhythm, Normal S1 S2 Gastrointestinal: Normal bowel sounds, Soft and benign, Non-distended Integumentary: No rashes, No breakdown Neurological: Normal speech, Normal strength at 5/5 x4 extr Urinary: Mckeon catheter - Studies Laboratory Data (last 24 hrs) 12/23/21 05:46: PT 12.0, INR 1.09 12/23/21 04:14: Sodium 142, Potassium 3.6, BUN 12, Creatinine 1.01, Glucose 118 H, Total Bilirubin 0.4, AST 30, ALT 19, Alkaline Phosphatase 136 H, Lipase 109 12/23/21 04:14: WBC 6.7, Hgb 11.8 L, Hct 36.3 L, Plt Count 128 L Assessment and Plan Discharge Plan: Home - Advance Directives Does patient have a Living Will: No Does patient have a Durable POA for Healthcare: Yes Physician Review: Patient Assessed, Agree with Above Assessment and Plan Physician Review Additional Text: Impression UTI with emphysematous cystitis Hematuria- due to cystitis as well as combine NSAIDsPlavix/indometacin use History of A. fibnot on any anticoagulation History of chronic pain syndrome Hypertension CVA Parkinson's diseasestable Diabetes mellituscontrolled Plan We will start patient on IV Rocephin Obtain urine culture Follow blood culture Continue indwelling Mckeon, possibility of underlining urinary retention considered If negative blood culture as well as full urine culture specificity obtain in a.m., can discharge home on oral antibiotics Continue sotalol Avoid indometacin Continue Plavix for now Subcutaneous Lovenox for DVT prophylaxis Strict glycemic control Resume home regimen except for nonessential NSAIDs Time Spent Managing Pts Care (In Minutes): 65
[2021-12-23 12:27] LABS: Blood Morphology Comment NOT SEEN (NOT SEEN); Platelet Estimate ADEQ; White Blood Cell Scan OK (OK)
[2021-12-23 13:47] LABS: Bilirubin Total 0.3 mg/dL (0.2-1.0); Potassium 4.1 mmol/L (3.5-5.1); Protein, Total 7.6 g/dL (6.4-8.2)
--- NOTE | 2021-12-23 14:51 | RAD REPORT ---
EXAM DESCRIPTION: CT - Abdomen Pelvis W Contrast - 12/23/2021 8:57 am CLINICAL HISTORY: Hematuria, gross/macroscopic COMPARISON: 12/06/2021. TECHNIQUE: CT ABDOMEN PELVIS WITH IV CONTRAST on 12/23/2021 4:00 AM CDT This exam was performed according to our departmental dose-optimization program, which includes autom ated exposure control, adjustment of the mA and/or kV according to patient size and/or use of iterati ve reconstruction technique. FINDINGS: Lower lungs are clear. Abdomen: The liver is normal in appearance. There is no biliary dilatation. Gallbladder is normal in appearance. The pancreas and spleen are normal in appearance. Left adrenal nodule measures 1.4 cm. Ri ght adrenal gland is normal as is the right kidney. The left kidney is absent. Abdominal aorta is normal in course and caliber without aneurysm. There is no free air. There is no r etroperitoneal adenopathy. There is a small fat-containing left lumbar abdominal wall hernia. Pelvis: There is large amount of stool throughout the colon. There is microscopic air within the urin lawrence bladder wall which is mildly thickened on the left side. There is no free fluid. Appendix is norm al. Skeleton: There are no acute osseous findings. No suspicious bony lesions. Images are somewhat limite d by bilateral hip arthroplasty changes. IMPRESSION: Emphysematous cystitis. Electronically signed by: Silver Moore MD 12/23/2021 6:47 AM CDT Due to temporary technical issues with the PACS/Fluency reporting system, reports are being signed by the in house radiologists without review as a courtesy to insure prompt reporting. The interpreting radiologist is fully responsible for the content of the report.
[2021-12-23 14:55] VITALS: O2SAT 99
[2021-12-23] MEDS: BUPRENORPHINE HCL 8 MG SL SCH (17:00)
[2021-12-23] MEDS: METFORMIN ER 500 MG TAB PO SCH (17:47)
[2021-12-23] MEDS ORDERED: HYDRALAZINE HCL 20 MG/ML VIAL IV PRN (20:14)
[2021-12-23] MEDS: INSULIN GLARGINE 100 UNIT/ML SQ SCH (21:00)
[2021-12-23] MEDS: MEMANTINE HCL 10 MG TABLET PO SCH (21:45)
[2021-12-23] MEDS: clonazePAM 1 MG TAB PO SCH (21:45)
[2021-12-24] MEDS: BUPRENORPHINE HCL 8 MG SL SCH ×2 (01:00→09:00)
[2021-12-24] MEDS ORDERED: NACHLORIDE 0.45% 1,000 ML IV SCH (06:00)
[2021-12-24] MEDS: INSULIN -REGULAR HUMAN 50 UNIT/0.5 ML ML SQ SCH ×2 (07:30→11:30)
[2021-12-24] MEDS ORDERED: ASPIRIN 81 MG CHEWABLE TABLET PO SCH (09:00)
[2021-12-24] MEDS ORDERED: FERROUS SULFATE 325 MG TAB PO SCH (09:00)
[2021-12-24] MEDS ORDERED: PANTOPRAZOLE 40MG TABLET PO SCH (09:00)
[2021-12-24] MEDS ORDERED: VENLAFAXINE HCL XR 75 MG CAP PO SCH (09:00)
[2021-12-24] MEDS ORDERED: ATORVASTATIN 80 MG TAB PO SCH (09:00)
[2021-12-24] MEDS ORDERED: CEFTRIAXONE 1,000 MG in NA CHLORIDE 0.9% 50 ML IVPB SCH (09:00)
[2021-12-24] MEDS ORDERED: SOTALOL HCL 80 MG TAB PO SCH (09:00)
[2021-12-24] MEDS ORDERED: CLOPIDOGREL 75 MG TABLET PO SCH (09:00)
[2021-12-24] MEDS: METFORMIN ER 500 MG TAB PO SCH (10:21)
[2021-12-24] MEDS: clonazePAM 1 MG TAB PO SCH (10:21)
[2021-12-24] MEDS: MEMANTINE HCL 10 MG TABLET PO SCH (10:21)
[2021-12-24] MEDS: INSULIN GLARGINE 100 UNIT/ML SQ SCH (10:41)
--- NOTE | 2021-12-24 11:20 | P.DS ---
Admission Date: 12/23/21 Discharge Date: 12/24/21 Disposition: DC HOME/HOME HEALTH CARE Discharge Condition: FAIR Reason for Admission: Hematuria Brief History of Present Illness: 66-year-old male with past medical history of hypertension, chronic pain syndrome follows with Dr. Saldana at the pain clinic, history of CAD, atrial fibrillation-not on any anticoagulation, Parkinson's disease, diabetes mellitus, CVA with mild right hemiparesis, recurrent UTI admitted because of noted hematuria since the last 3 days. Patient denies any fever or chills. He admits to some suprapubic cramps. On presentation in the ED he had a CT with findings of emphysematous cystitis. Urology consult was obtained. We recommend Mckeon placement and antibiotics. Mckeon was placed with darkish urine output. Patient denies prior cystoscopy or history of renal calculus. He has been admitted for IV antibiotics. Review of his medication shows patient has been taking Plavix and was recently added indomethacin for pain control. Hospital Course: Hospital course Patient with history of history of atrial fibrillation, not on chronic anticoagulation, prior GI bleeding, CAD/CVA, HTN, on aspirin Plavix as well as recently added indomethacin for pain control presented with new onset hematuria and suprapubic cramps. CT scan shows evidence of emphysematous cystitis with a mildly thickened bladder. Urine culture grew gram-negative karina. Urology was discussed with and recommended placement of Mckeon. His dose of indometacin as well as Plavix were held. Patient was started on empirical antibiotics with Levaquin. His vitals remained stable. He has been afebrile. He is still having trace amount of hematuria but much clear. Patient will be discharged home with continue Mckeon for the next 10 to 14 days, follow with urology in outpatient after completing antibiotics course. He may benefit from cystoscopy. Patient also advised to continue to hold Plavix for the next 1 week. Patient advised to avoid further NSAID including indomethacin use in the future. Vital Signs/Physical Exam: Temp Pulse Resp BP Pulse Ox 97.2 F 73 16 114/67 95 12/24/21 08:00 12/24/21 08:00 12/24/21 08:00 12/24/21 08:00 12/24/21 08:00 General: Alert, In no apparent distress, Oriented x3 HEENT: Atraumatic, Normocephalic Neck: Supple, 2+ carotid pulse no bruit, JVD not distended Respiratory: Clear to auscultation bilaterally, Normal air movement Cardiovascular: No edema, Normal pulses, Regular rate/rhythm, Normal S1 S2 Gastrointestinal: Normal bowel sounds, Soft and benign, Non-distended Urinary: Mckeon catheter Laboratory Data at Discharge: WBC 8.2 K/uL (4.3-10.9) D 12/23/21 11:26 Hgb 11.4 g/dL (13.6-17.9) L 12/23/21 11:26 Hct 34.6 % (39.6-49.0) L 12/23/21 11:26 Plt Count 102 K/uL (152-406) L D 12/23/21 11:26 PT 12.0 SECONDS (9.5-12.5) 12/23/21 05:46 INR 1.09 12/23/21 05:46 Sodium 142 mmol/L (136-145) 12/23/21 12:41 Potassium 4.1 mmol/L (3.5-5.1) 12/23/21 12:41 BUN 10 mg/dL (7-18) 12/23/21 12:41 Creatinine 0.97 mg/dL (0.55-1.3) 12/23/21 12:41 Glucose 72 mg/dL (74-106) L 12/23/21 12:41 Total Bilirubin 0.3 mg/dL (0.2-1.0) 12/23/21 12:41 AST 28 U/L (15-37) 12/23/21 12:41 ALT 17 U/L (12-78) 12/23/21 12:41 Alkaline Phosphatase 113 U/L (45-117) 12/23/21 12:41 Lipase 109 U/L (73-393) 12/23/21 04:14 Home Medications: Sotalol HCl [Betapace*] 80 mg PO DAILY 08/12/18 Atorvastatin Calcium [Lipitor] 80 mg PO DAILY #30 tablet 08/13/18 Metformin HCl [Metformin HCl ER] 1 tab PO BID 11/14/20 buprenorphine HCL [Buprenorphine HCl] 8 mg SL Q8HR 11/14/20 clonazePAM [Clonazepam] 1 mg PO BID 11/14/20 Pantoprazole [Protonix Tab*] 40 mg PO DAILY #40 tab 11/15/20 Ascorbic Acid [Vitamin C] 1 tab PO DAILY 09/13/21 Aspirin 1 tab PO DAILY 09/13/21 Cyanocobalamin (Vitamin B-12) [Vitamin B-12] 1 tab PO DAILY 09/13/21 Insulin Detemir [Levemir Flextouch] 20 unit SQ BID 09/13/21 Iron 65 mg PO DAILY 09/13/21 Memantine HCl [Namenda] 10 mg PO BID 09/13/21 Venlafaxine HCl [Venlafaxine HCl ER] 150 mg PO DAILY 12/23/21 Levofloxacin [Levaquin] 500 mg PO DAILY #12 tablet 12/24/21 New Medications: Levofloxacin [Levaquin] 500 mg PO DAILY #12 tablet Physician Discharge Instructions: Hold plavix for 1 week then restart -stop indomethacin use -you can continue aspirin for now Diet: Low sodium Activity: Ad asad Followup: NONE,NONE [Primary Care Provider] - Corey Cotsa [ACTIVE - CAN ADMIT] - 1 Week Time spent managing pt's care (in minutes): 35
[2021-12-24 17:20] VITALS: BP 131/80; TEMP 97
== END 2021-12-24 17:15 | disposition home health service (06) ==
LOC: ER 03:39 → ERHOLD 09:37 → 4TH 13:34
PROVIDERS: ADMIT Internal Medicine; ATTEND Internal Medicine
DX: N30.81 Other cystitis with hematuria (principal); I48.91 Unspecified atrial fibrillation; I10 Essential (primary) hypertension; G89.4 Chronic pain syndrome; G20 Parkinson's disease; I69.951 Hemiplegia and hemiparesis following unspecified cerebrovascular disease affecting right dominant side; E11.9 Type 2 diabetes mellitus without complications; I25.10 Atherosclerotic heart disease of native coronary artery without angina pectoris; K21.9 Gastro-esophageal reflux disease without esophagitis; F32.A Depression, unspecified; Z20.822 Contact with and (suspected) exposure to COVID-19; Z79.84 Long term (current) use of oral hypoglycemic drugs; Z79.02 Long term (current) use of antithrombotics/antiplatelets; Z79.899 Other long term (current) drug therapy; Z85.528 Personal history of other malignant neoplasm of kidney; Z90.5 Acquired absence of kidney; Z96.643 Presence of artificial hip joint, bilateral; Z96.651 Presence of right artificial knee joint; Z83.3 Family history of diabetes mellitus
CPT/HCPCS: 96365; 87088; 85025 ×2; 87086; 36415; 86900; 86850; 85610; 86901; 82947 ×5; 87077; 87186; 81003; 83690; 80053 ×2; 74177; 96375; 99285; U0003; Q9967; J0360; J2270; J2405 ×2; G0378 ×3

== ENCOUNTER 2022-01-01 10:27 | Inpatient (IN) | payer OTHER ==
--- OUTSIDE RECORDS SUMMARY | 2022-01-01 10:36 | XMS REPORT | Continuity of Care Document ---
:1955 Author Organization [facility] t Address [address] [place] [address] Care Team Providers Name Role Phone Conner [...] Clyde Pacheco MD Attending Clinician Jalen IGNACIO, Tyrelva Attending Clinician [facility] Attending Clinician Unavailable Linda IGNACIO Admitting Clinician KNOW Admitting Clinician Unavailable Payers Payer Name Policy Type Policy Number Effective Date Expiration Date Vini jiang [facility] [id number] 2017 MEDICARE GOLD 00:00:00 MEDICARE PART A \\T\\ [id number] B - MEDICARE WELLMED DUAL [id number] COMPLETE SNP [facility] MEDIGAP-GENERIC - [id number] GENERIC [facility] MCR SECURE [id number] 2021 HORIZONS 00:00:00 Problems Condition Condition Condition Status Onset Resolution Last Treating Co mments Source Name Details Category Date Date Treatment Clinician Date Other Other Disease Active Univers constipati constipati 7-24 it y of on on 00:00: [place] 00 Medical Branch Fever due Fever due [...] unknown 2-19 ity of origin origin 00:00: [place] 00 Medical Branch Bradycardi Bradycardi Disease Active M [...] Univers CPAP CPAP 1-25 ity of 00:00: [place] [facility] Chest pain Chest pain Disease [...] different from the original. ICD10 Diagnosis Term [facility] Surgical Surgical Disease Active 2008-08 Unive [...] the (luts) (luts) original. ICD10 Diagnosis Term [facility] Fasciitis Fasciitis Disease Active Overview: Univers 4-23 Formattin ity of 00:00: g of this [place] 00 note Medical might be Branch different from the original. ICD10 Diagnosis Term [facility] Arthropath Arthropath Disease Active Overview : Univers y y 4- Formattin ity of associated associated 00:00: g of this [place] with with 00 note Medical another another might be Branch systemic systemic different disease disease from the original. ICD10 Diagnosis Term [facility] Degenerati Degenerati Disease Active Overview : [...] from the original. left nephrecto my in [id number] Diagnosis Term [facility] Essential Essential Disease Active Overview: Univers hypertensi hypertensi Formattin ity of on on g of this [place] note Medical might be Branch different from the original. ICD10 Diagnosis Term [facility] Backache Backache Disease Active Overview: Un bib Formattin ity of g of this [place] note Medical might be Branch different from the original. back surgeries in , [id number] Diagnosis Term [facility] Hip joint Hip joint Disease Active Overview: Univers replacemen replacemen Formattin ity of t by other t by other g of this [place] means means note Medical might be Branch different from the original. B/L Asbestosis Asbestosis Disease Active Overview : Univers Formattin ity of g of this [place] note Medical might be Branch different from the original. ICD10 Diagnosis Term [facility] Gout Gout Disease Active Overview: Univer s Formattin ity of g of this [place] note Medical might be Branch different from the original. ICD10 Diagnosis Term [facility] HLD HLD Disease Active Overview: Univer s (hyperlipi (hyperlipi Formattin ity of demia) demia) g of this [place] note Medical might be Branch different from the original. ICD10 Diagnosis Term [facility] Allergies, Adverse Reactions, Alerts Allergy Allergy [...] 0-03 Clear Allergie 00:00: [place] 00 [facility] No Known DA Active U 2011-08 [facility] 0-03 Clear Allergie 00:00: [place] 00 [facility] NO KNOWN Allergy Active [facility] Social History Social Habit Start Date Stop Date Quantity Comments Source History of Cigarette Smoker Universi ty of tobacco use [place] [facility] Exposure to Not sure University of SARS-CoV-2 [place] [facility] (event) Branch History SDOH University o f Alcohol Frequency [facility] edical Branch History SDOH University o f Alcohol Std [place] [facility] Drinks Branch History SDOH University o f Alcohol Binge [place] Medic al Branch Tobacco use and 2021-09-10 2021-09-10 Former smokeless [facility] of exposure 00:00:00 00:00:00 tobacco user Medicine Cigarette 2021-09-10 2021-09-10 [facility] of pack-years 00:00:00 00:00:00 Medicine Alcohol intake 2019-08-22 2019-08-22 Current [facility] 00:00:00 00:00:00 non-drinker of Hospital alcohol (finding) Alcohol Comment 2008-12-04 2008-12-04 once per month Unive rsity of 00:00:00 00:00:00 [facility] Tobacco Comment 2008-11-22 2008-11-22 states smoked Univer sity of 00:00:00 00:00:00 occasionly for [facility] about 3 years Branch Sex Ass[birth year] [facility] llege of 00:00:00 00:00:00 Medicine Smoking Status Start Date Stop Date Source Ex-smoker 2021-09-10 00:00:00 2021-09-10 00:00:[address] [facility] [address] [facility] Never smoker [facility] Medications Ordered Filled Start Stop Current Ordering Indication Dosage Frequency Signature Comments Components Source Medication Medication Date Date Medication? Clinician (SIG) Name Name amoxicillin Yes amoxicilli Jaren (AMOXIL) 5-27 n 500 mg College 500 mg 14:15: capsule of capsule 03 Medicin e metformin Yes 500mg Take 500 [place] [facility] (GLUCOPHAGE 5-27 mg by [place] ) 500 MG 14:13: mouth of tablet 58 daily. Medicin e clonazepam Yes 1mg Take 1 mg [facility] (KLONOPIN) 5-27 by mouth Colle ge 1 MG tablet 14:13: daily. of 58 Medicin e venlafaxine Yes 75mg Take 75 mg Jaren (EFFEXOR-XR 5-27 by mouth Alyssa ege ) 75 MG XR 14:13: daily. of capsule 58 Medicin e clopidogrel Yes 75mg Take 75 mg [facility] (PLAVIX) 75 5-27 by mouth Alyssa ege MG Tablet 14:13: daily. of 58 Medicin e indomethaci Yes 25mg Take 25 mg [facility] n (INDOCIN) 5-27 by mouth 3 Co llege 25 MG 14:13: times of capsule 58 daily. Medicin e Aspirin 81 Yes 81mg Take 81 mg B aylor MG tablet 5-27 by mouth Colleg e 14:13: once. of 58 Medicin e Cyanocobala Yes Take by Jayy gomez min (B-12) 5-27 mouth. College 2500 MCG 14:13: of TABS 58 Medicin e Ascorbic Yes Take by [facility] [facility] Acid 5-27 mouth. [place] (VITAMIN C) 14:13: of 500 MG CAPS 58 Medicin e Ferrous Yes Take by Jaren Sulfate 5-27 mouth. [place] (IRON) 325 14:13: of (65 Fe) MG 58 Medicin TABS e Insulin 0 Yes 20U Inject 20 [facility] Detemir 5-27 Units into Colleg e (LEVEMIR 14:13: the skin. of [place]) 58 Medicin e Insulin 0 Yes 20U Inject 20 [facility] Detemir 2-09 Units into Colleg e (LEVEMIR 13:58: the skin. of [place]) 52 Medicin e metformin 0 Yes 500mg Take 500 [place] (GLUCOPHAGE 2-09 mg by [place] ) 500 MG 13:58: mouth of tablet 52 daily. Medicin e clonazepam 0 Yes 1mg Take 1 mg [facility] (KLONOPIN) 2-09 by mouth Colle ge 1 MG tablet 13:58: daily. of 52 Medicin e venlafaxine 0 Yes 75mg Take 75 mg Jaren (EFFEXOR-XR 2-09 by mouth [place]a ege ) 75 MG XR 13:58: daily. of capsule 52 Medicin e clopidogrel 0 Yes 75mg Take 75 mg [facility] (PLAVIX) 75 2-09 by mouth [...] by Jayy gomez min (B-12) 2-09 mouth. [place] 2500 MCG 13:58: of TABS 52 Medicin e Ascorbic 0 Yes Take by [facility] [facility] Acid 2-09 mouth. [place] (VITAMIN C) 13:58: of 500 MG CAPS 52 Medicin e Ferrous Yes Take by Jaren Sulfate 2-09 mouth. [place] (IRON) 325 13:58: of (65 Fe) MG 52 Medicin TABS e Buprenorphi Yes 8mg Take 8 mg B ayl[facility] ne HCl 8 MG 1-19 by mouth [place] e[place] SUBL 00:00: every 8 of 00 hours as Medicin needed. e Buprenorphi 0 Yes 8mg Take 8 mg B [place] ne HCl 8 MG 1-19 by mouth [place] SUBL 00:00: every 8 of 00 hours as Medicin needed. e sotalol 2020-08 Yes 80mg Take 80 mg [facility] (BETAPACE) 2-13 by mouth Colle ge 80 MG 00:00: daily. of tablet 00 Medicin e atorvastati 2020-08 Yes 80mg Take 80 mg [facility] n (LIPITOR) 2-13 by mouth [place]a ege 80 MG 00:00: daily. of tablet 00 Medicin e sotalol 2020-08 Yes 80mg Take 80 mg [facility] (BETAPACE) 2-13 by mouth Colle ge 80 MG 00:00: daily. of tablet 00 Medicin e atorvastati 2020-08 Yes 80mg Take 80 mg [facility] n (LIPITOR) 2-13 by mouth [place] e[place] 80 MG 00:00: daily. of tablet 00 Medicin e AMLODIPINE 2020-08 Yes TAKE 1 Unive rs 10 mg 1-26 TABLET BY ity of tablet 00:00: MOUTH [place] DAILY Medical Branch AMLODIPINE 2020-08 Yes TAKE 1 Unive rs 10 mg 1-26 TABLET BY ity of tablet 00:00: [facility] DAILY Medical Branch PANTOPRAZOL 2020-08 Yes [id number] 40mg TAKE 1 Univers E 40 mg EC 0-11 TABLET BY ity of tablet 00:00: MOUTH [place] DAILY Medical Branch PANTOPRAZOL 2020-08 Yes [id number] 40mg TAKE 1 Univers E 40 mg EC 0-11 TABLET BY ity of tablet 00:00: MOUTH [place] DAILY Medical Branch PANTOPRAZOL 2020-08 Yes [id number] 40mg TAKE 1 Univers E 40 mg EC 0-11 TABLET BY ity of tablet 00:00: MOUTH [place] DAILY Medical Branch memantine Yes 10mg Take 10 mg [facility] (NAMENDA) 9-18 by mouth Colleg e 10 MG 00:00: two times of tablet 00 daily. Medicin e memantine Yes 10mg Take 10 mg [facility] (NAMENDA) 9-18 by mouth Colleg e 10 MG 00:00: two times of tablet 00 daily. Medicin e NaCl 0.9% 1000mL at 999 Uni vers (NS) bolus 04-01 08-31 mL/hr, ity of infusion 05:30: 05:30 1,000 mL, Dante as 1,000 mL 00 :00 IV Medical Infusion, Branch ONCE, 1 dose, 8/31/21 at 0030, STAT NaCl 0.9% 2020- No [...] 500mL at 999 Univ ers (NS) bolus 8- 08-31 mL/hr, 500 it y of infusion 02:15: 02:55 mL, IV [place] 500 mL 00 :00 Piggyback, Medical ONCE, 1 Branch dose, 03/31/21 at 2115, STAT amLODIPine 2020- No [id number] 10mg Take 1 Univers 10 mg 7-29 10-28 tablet by ity of tablet 00:00: 04:59 mouth [place] 00 :00 daily for Medical 90 days. Branch amLODIPine 2020- No [id number] 10mg Take 1 Univers 10 mg 7-29 10-28 tablet by ity of tablet 00:00: 04:59 mouth [place] 00 :00 daily for Medical 90 days. Branch amLODIPine 2020- No [id number] 10mg Take 1 Univers 10 mg 7-29 10-28 tablet by ity of tablet 00:00: 04:59 mouth [place] 00 :00 daily for Medical 90 days. Branch amLODIPine 2020-2020- No [id number] 10mg Take 1 Univers 10 mg 7-29 10-28 tablet by ity of tablet 00:00: 04:59 mouth [place] 00 :00 daily for Medical 90 days. Branch amLODIPine 2020- No [id number] 10mg Take 1 Univers 10 mg 7-29 10-28 tablet by ity of tablet 00:00: 04:59 mouth [place] 00 :00 daily for Medical 90 days. Branch amLODIPine 2020- No [id number] 10mg Take 1 Univers 10 mg 7-29 10-28 tablet by ity of tablet 00:00: 04:59 mouth [place] 00 :00 daily for Medical 90 days. Branch gabapentin Yes 600mg Take 600 Un bib 300 mg 7-28 mg by ity of capsule 23:25: mouth 3 [place] 24 (three) Medical times Branch daily. venlafaxine Yes 112.5mg Take 112.5 Univers XR 37.5 mg 7-28 mg by ity of 24 hr 23:25: mouth [place] capsule 24 daily with Medica l breakfast. Branch baclofen 5 Yes 10mg Take 10 mg U nivers mg tablet 7-28 by mouth 2 ity of 23:25: (two) [place] 24 times Medical daily as Branch needed (back pain). insulin Yes 20U inject 20 Unive rs detemir 7-28 Units ity of (LEVEMIR 23:25: under the [facility] s U-100 24 skin 2 Medical INSULIN [place]) (two) Branch times daily before breakfast and dinner. atorvastati Yes 80mg Take 80 mg Univers n 80 mg 7-28 by mouth ity of tablet 23:25: at [place] [address] bedtime. Medical Branch metFORMIN Yes 500mg Take 500 Uni vers 500 mg 7-28 mg by ity of tablet 23:25: mouth 2 [place] 24 (two) Medical times Branch daily with meals. clopidogreL Yes 75mg Take 75 mg Univers (PLAVIX) 75 7-28 by mouth ity of mg tablet 23:25: daily. [place] 24 Medical Branch gabapentin Yes 600mg Take 600 Un bib 300 mg 7-28 mg by ity of capsule 23:25: mouth 3 [place] 24 (three) Medical times Branch daily. venlafaxine Yes 112.5mg Take 112.5 Univers XR 37.5 mg 7-28 mg by ity of 24 hr 23:25: mouth [place] capsule 24 daily with Medica l breakfast. Branch baclofen 5 Yes 10mg Take 10 mg U nivers mg tablet 7-28 by mouth 2 ity of 23:25: (two) [place] 24 times Medical daily as Branch needed (back pain). insulin 2021-0 Yes 20U inject 20 Unive rs detemir 7-28 Units ity of (LEVEMIR 23:25: under the [facility] [place] [facility] U-100 24 skin 2 Medical INSULIN [place]) (two) Branch times daily before breakfast and dinner. atorvastati 0 Yes 80mg Take 80 mg Univers n 80 mg 7-28 by mouth ity of tablet 23:25: at [place] [address] bedtime. Medical Branch metFORMIN 0 Yes 500mg Take 500 Uni vers 500 mg 7-28 mg by ity of tablet 23:25: mouth 2 [place] [address] (two) Medical times Branch daily with meals. clopidogreL 0 Yes 75mg Take 75 mg Univers (PLAVIX) 75 7-28 by mouth ity of mg tablet 23:25: daily. [place] [address] Medical Branch gabapentin 0 Yes 600mg Take 600 Un bib 300 mg 7-28 mg by ity of capsule 23:25: mouth 3 [place] [address] (three) Medical times Branch daily. venlafaxine 0 Yes 112.5mg Take 112.5 Univers XR 37.5 mg 7-28 mg by ity of 24 hr 23:25: mouth [facility] 24 daily with Medica l breakfast. Branch baclofen 5 Yes 10mg Take 10 mg U nivers mg tablet 7-28 by mouth 2 ity of 23:25: (two) [place] [address] times [facility] daily as Branch needed (back pain). insulin 2020-0 Yes 20U inject 20 Unive rs detemir 7-28 Units ity of (LEVEMIR 23:25: under the [facility] [place] [facility] U-100 24 skin 2 Medical INSULIN [place]) (two) Branch times daily before breakfast and dinner. atorvastati 0 Yes 80mg Take 80 mg Univers n 80 mg 7-28 by mouth ity of tablet 23:25: at [place] [address] bedtime. Medical Branch metFORMIN 0 Yes 500mg Take 500 Uni vers 500 mg 7-28 mg by ity of tablet 23:25: mouth 2 [place] [address] (two) Medical times Branch daily with meals. clopidogreL 2020-0 Yes 75mg Take 75 mg Univers (PLAVIX) 75 7-28 by mouth ity of mg tablet 23:25: daily. [place] [address] Medical Branch gabapentin 2020-0 Yes 600mg Take 600 Un bib 300 mg 7-28 mg by ity of capsule 23:25: mouth 3 [place] 24 (three) Medical times Branch daily. venlafaxine Yes 112.5mg Take 112.5 Univers XR 37.5 mg 7-28 mg by ity of 24 hr 23:25: mouth [place] capsule 24 daily with Medica l breakfast. Branch baclofen 5 Yes 10mg Take 10 mg U nivers mg tablet 7-28 by mouth 2 ity of 23:25: (two) [place] 24 times Medical daily as Branch needed (back pain). insulin 0 Yes 20U inject 20 Unive rs detemir 7-28 Units ity of (LEVEMIR 23:25: under the [place] U-100 24 skin 2 Medical INSULIN [place]) (two) Branch times daily before breakfast and dinner. atorvastati Yes 80mg Take 80 mg Univers n 80 mg 7-28 by mouth ity of tablet 23:25: at [place] [address] bedtime. Medical Branch metFORMIN Yes 500mg Take 500 Uni vers 500 mg 7-28 mg by ity of tablet 23:25: mouth 2 [place] 24 (two) Medical times Branch daily with meals. clopidogreL Yes 75mg Take 75 mg Univers (PLAVIX) 75 7-28 by mouth ity of mg tablet 23:25: daily. [place] [address] Medical Branch gabapentin Yes 600mg Take 600 Un bib 300 mg 7-28 mg by ity of capsule 23:25: mouth 3 [place] 24 (three) Medical times Branch daily. venlafaxine Yes 112.5mg Take 112.5 Univers XR 37.5 mg 7-28 mg by ity of 24 hr 23:25: mouth [place] capsule 24 daily with Medica l breakfast. Branch baclofen 5 Yes 10mg Take 10 mg U nivers mg tablet 7-28 by mouth 2 ity of 23:25: (two) [place] 24 times Medical daily as Branch needed (back pain). insulin 0 Yes 20U inject 20 Unive rs detemir 7-28 Units ity of (LEVEMIR 23:25: under the [place] U-100 24 skin 2 Medical INSULIN [place]) (two) Branch times daily before breakfast and dinner. atorvastati 0 Yes 80mg Take 80 mg Univers n 80 mg 7-28 by mouth ity of tablet 23:25: at [place] [address] bedtime. Medical Branch metFORMIN 0 Yes 500mg Take 500 Uni vers 500 mg 7-28 mg by ity of tablet 23:25: mouth 2 [place] [address] (two) Medical times Branch daily with meals. clopidogreL 0 Yes 75mg Take 75 mg Univers (PLAVIX) 75 7-28 by mouth ity of mg tablet 23:25: daily. [place] [address] Medical Branch gabapentin 0 Yes 600mg Take 600 Un bib 300 mg 7-28 mg by ity of capsule 18:25: mouth 3 [place] [address] (three) Medical times Branch daily. venlafaxine Yes 112.5mg Take 112.5 Univers XR 37.5 mg 7-28 mg by ity of 24 hr 18:25: mouth [place] capsule 24 daily with Medica l breakfast. Branch baclofen Yes 10mg Take 10 mg U nivers mg tablet 7-28 by mouth 2 ity of 18:25: (two) [place] [address] times Medical daily as Branch needed (back pain). insulin 0 Yes 20U inject 20 Unive rs detemir 7-28 Units ity of (LEVEMIR 18:25: under the [facility] s U-100 24 skin 2 Medical INSULIN [place]) (two) Branch times daily before breakfast and dinner. atorvastati Yes 80mg Take 80 mg Univers n 80 mg 7-28 by mouth ity of tablet 18:25: at [place] [address] bedtime. Medical Branch metFORMIN Yes 500mg Take 500 Uni vers 500 mg 7-28 mg by ity of tablet 18:25: mouth 2 [place] [address] (two) Medical times Branch daily with meals. clopidogreL Yes 75mg Take 75 mg Univers (PLAVIX) 75 7-28 by mouth ity of mg tablet 18:25: daily. [place] [address] Medical Branch gabapentin 0 Yes 600mg Take 600 Un bib 300 mg 7-28 mg by ity of capsule 18:25: mouth 3 [place] [address] (three) Medical times Branch daily. venlafaxine 0 Yes 112.5mg Take 112.5 Univers XR 37.5 mg 7-28 mg by ity of 24 hr 18:25: mouth [place] capsule 24 daily with Medica l breakfast. Branch baclofen 5 Yes 10mg Take 10 mg U nivers mg tablet 7-28 by mouth 2 ity of 18:25: (two) [place] 24 times Medical daily as Branch needed (back pain). insulin 0 Yes 20U inject 20 Unive rs detemir 7-28 Units ity of (LEVEMIR 18:25: under the [place] U-100 24 skin 2 Medical INSULIN [place]) (two) Branch times daily before breakfast and dinner. atorvastati Yes 80mg Take 80 mg Univers n 80 mg 7-28 by mouth ity of tablet 18:25: at [place] [address] bedtime. Medical Branch metFORMIN Yes 500mg Take 500 Uni vers 500 mg 7-28 mg by ity of tablet 18:25: mouth 2 [place] [address] (two) Medical times Branch daily with meals. clopidogreL Yes 75mg Take 75 mg Univers (PLAVIX) 75 7-28 by mouth ity of mg tablet 18:25: daily. [place] [address] Medical Branch gabapentin Yes 600mg Take 600 Un bib 300 mg 7-28 mg by ity of capsule 18:25: mouth 3 [place] 24 (three) Medical times Branch daily. venlafaxine Yes 112.5mg Take 112.5 Univers XR 37.5 mg 7-28 mg by ity of 24 hr 18:25: mouth [facility] 24 daily with Medica l breakfast. Branch baclofen 5 Yes 10mg Take 10 mg U nivers mg tablet 7-28 by mouth 2 ity of 18:25: (two) [place] 24 times Medical daily as Branch needed (back pain). insulin 0 Yes 20U inject 20 Unive rs detemir 7-28 Units ity of (LEVEMIR 18:25: under the [place] U-100 24 skin 2 Medical INSULIN [place]) (two) Branch times daily before breakfast and dinner. atorvastati Yes 80mg Take 80 mg Univers n 80 mg 7-28 by mouth ity of tablet 18:25: at [place] [address] bedtime. Medical Branch metFORMIN Yes 500mg Take 500 Uni vers 500 mg 7-28 mg by ity of tablet 18:25: mouth 2 [place] 24 (two) Medical times Branch daily with meals. clopidogreL 2021-0 Yes 75mg Take 75 mg Univers (PLAVIX) 75 02-26 by mouth ity of mg tablet 18:25: daily. [place] 24 Medical Branch desipramine 2020- No 10mg Take 10 mg Univers 10 mg -26 02- by mouth 3 ity of tablet 17:05: 00:00 (three) [place] 58 :00 times Medical daily. Branch BUPRENORPHI 2020- No 10mg Place 10 U nivers NE HCL 02-26- mg in ity of BUCCAL 17:05: 00:00 cheeks [place] 58 :00 every 12 Medical (twelve) Branch hours. sotaloL 2020- No 80mg Take 80 mg Uni vers (SOTALOL 02-26 by mouth ity of AF) 80 mg 17:05: 00:00 daily. [place] tablet 58 :00 Medical Branch amLODIPine- 2020- No amlodipine Univers benazepriL 02-26 10 ity of 10-40 mg 17:05: 00:00 mg-benazep [place] per capsule 58 :00 ril 40 mg Med ical capsule Branch amLODIPine Yes 10mg 10 mg, Unive rs (NORVASC) - Oral, ity of tablet 10 14:00: DAILY, [place] mg 00 First dose Medical (after Branch last modificati on) on Wed02/26/21 at 0900, Until Discontinu ed, Routine sennosides Yes [id number] 8.6mg Take 1 Univers 8.6 mg - tablet by ity of tablet 00:00: mouth 2 [place] 00 (two) Medical times Branch daily. polyethylen Yes [id number] 17g Take 1 Univers e glycol - Packet by ity of 3350 17 00:00: mouth 2 [place] gram powder 00 (two) Medical times Branch daily. pantoprazol Yes [id number] 40mg Take 1 Univers e 40 mg EC -28 tablet by ity of tablet 00:00: mouth [place] 00 daily. Medical Branch bisacodyL Yes [id number] 10mg Insert 1 Univers 10 mg 02-26 Suppositor ity of suppository 00:00: y [place] 00 rectum at Medical bedtime. Branch sennosides Yes [id number] 8.6mg Take 1 Univers 8.6 mg 7-28 tablet by ity of tablet 00:00: mouth 2 (two) Medical times Branch daily. polyethylen Yes [id number] 17g Take 1 Univers e glycol 7-28 Packet by ity of 3350 17 00:00: mouth 2 [place] gram powder (two) Medical times Branch daily. pantoprazol Yes [id number] 40mg Take 1 Univers e 40 mg EC 7-28 tablet by ity of tablet 00:00: mouth [place] 00 daily. Medical Branch bisacodyL Yes [id number] 10mg Insert 1 Univers 10 mg 7-28 Suppositor ity of suppository 00:00: y [place] 00 rectum at Medical bedtime. Branch sennosides Yes [id number] 8.6mg Take 1 Univers 8.6 mg 7-28 tablet by ity of tablet 00:00: mouth 2 (two) Medical times Branch daily. polyethylen Yes [id number] 17g Take 1 Univers e glycol 7-28 Packet by ity of 3350 17 00:00: mouth 2 [place] gram powder (two) Medical times Branch daily. pantoprazol Yes [id number] 40mg Take 1 Univers e 40 mg EC 7-28 tablet by ity of tablet 00:00: mouth [place] 00 daily. Medical Branch bisacodyL Yes [id number] 10mg Insert 1 Univers 10 mg 7-28 Suppositor ity of suppository 00:00: y [place] 00 rectum at Medical bedtime. Branch sennosides Yes [id number] 8.6mg Take 1 Univers 8.6 mg 7-28 tablet by ity of tablet 00:00: mouth 2 (two) Medical times Branch daily. polyethylen Yes [id number] 17g Take 1 Univers e glycol 7-28 Packet by ity of 3350 17 00:00: mouth 2 [place] gram powder (two) Medical times Branch daily. pantoprazol Yes [id number] 40mg Take 1 Univers e 40 mg EC 7-28 tablet by ity of tablet 00:00: mouth [place] 00 daily. Medical Branch bisacodyL Yes [id number] 10mg Insert 1 Univers 10 mg 7-28 Suppositor ity of suppository 00:00: y [place] 00 rectum at Medical bedtime. Branch sennosides Yes [id number] 8.6mg Take 1 Univers 8.6 mg 7-28 tablet by ity of tablet 00:00: mouth 2 (two) Medical times Branch daily. polyethylen Yes [id number] 17g Take 1 Univers e glycol 7-28 Packet by ity of 3350 17 00:00: mouth 2 [place] gram powder (two) Medical times Branch daily. pantoprazol Yes [id number] 40mg Take 1 Univers e 40 mg EC 7-28 tablet by ity of tablet 00:00: mouth 00 daily. Medical Branch bisacodyL Yes [id number] 10mg Insert 1 Univers 10 mg 7-28 Suppositor ity of suppository 00:00: y into [place] 00 rectum at Medical bedtime. Branch sennosides Yes [id number] 8.6mg Take 1 Univers 8.6 mg 7-28 tablet by ity of tablet 00:00: mouth 2 (two) Medical times Branch daily. polyethylen Yes [id number] 17g Take 1 Univers e glycol 7-28 Packet by ity of 3350 17 00:00: mouth 2 [place] gram powder (two) Medical times Branch daily. bisacodyL Yes [id number] 10mg Insert 1 Univers 10 mg 7-28 Suppositor ity of suppository 00:00: y into [place] 00 rectum at Medical bedtime. Branch sennosides Yes [id number] 8.6mg Take 1 Univers 8.6 mg 7-28 tablet by ity of tablet 00:00: mouth 2 (two) Medical times Branch daily. polyethylen Yes [id number] 17g Take 1 Univers e glycol 7-28 Packet by ity of 3350 17 00:00: mouth 2 [place] gram powder (two) Medical times Branch daily. bisacodyL Yes [id number] 10mg Insert 1 Univers 10 mg 7-28 Suppositor ity of suppository 00:00: y into [place] 00 rectum at Medical bedtime. Branch sennosides Yes [id number] 8.6mg Take 1 Univers 8.6 mg 7-28 tablet by ity of tablet 00:00: mouth 2 [place] 00 (two) Medical times Branch daily. polyethylen Yes [id number] 17g Take 1 Univers e glycol 7-28 Packet by ity of 3350 17 00:00: mouth 2 [place] gram powder 00 (two) Medical times Branch daily. bisacodyL Yes [id number] 10mg Insert 1 Univers 10 mg 7-28 Suppositor ity of suppository 00:00: y into [place] 00 rectum at Medical bedtime. Branch pantoprazol 2020- No [id number] 40mg Take 1 Univers e 40 mg EC 7-28 10-11 tablet by ity of tablet 00:00: 00:00 mouth [place] 00 :00 daily. Medical Branch sulfamethox 2020- No [id number] 1{tbl} Take 1 Univers azole-trime 7-28 08-11 tablet by it y of thoprim 00:00: 04:59 mouth 2 [place] 800-160 mg 00 :00 (two) Medical per tablet times Branch daily for 13 days. sulfamethox 2020- No [id number] 1{tbl} Take 1 Univers azole-trime 7-28 08-11 tablet by it y of thoprim 00:00: 04:59 mouth 2 [place] 800-160 mg 00 :00 (two) Medical per tablet times Branch daily for 13 days. clonazePAM Yes .5mg 0.5 mg, Univ ers (KLONOPIN) 02-25 Oral, ity of tablet 0.5 19:45: DAILY, [place] mg 00 First dose Medical on Wed Branch 02/25/21 at 1445, Until Discontinu ed, Routine amLODIPine 2020- No 5mg 5 mg, Unive rs (NORVASC) 02-25 07-27 Oral, ity of tablet 5 mg 19:41: 20:59 ONCE, 1 [place] :[place] dose, [facility] 02/25/21 at Branch 1445, Routine clopidogreL Yes 75mg 75 mg, Univ ers (PLAVIX) 02-25 Oral, ity of tablet 75 14:00: DAILY, [place] mg 00 First dose Medical on [facility] 02/25/21 at 0900, Until Discontinu ed, Routine insulin Yes 20U 20 Units, [facility] rs detemir 02-25 Subcutaneo ity of U-100 12:30: us, BIDAC, [place] (LEVEMIR 00 First dose Medic al U-100 on [facility] INSULIN) 02/25/21 at injection 0730, 20 Units Until Discontinu ed
Rest ricted - To be dispensed only to: Continuati on from home Sliding Yes Subcutaneo [facility] ers Scale 02-25 us, TID ity of Insulin - 02:00: MEALS+HS, [place] as Lispro First dose Medical (HumaLOG) + (after [place] [facility] last Testing modificati on) on [facility] 02/24/21 at 2100, Until Discontinu ed, Routine atorvastati Yes 80mg 80 mg, [place] [facility] ers n (LIPITOR) 02-25 Oral, QHS, it y of tablet 80 02:00: First dose [place] mg 00 on [facility] 02/24/21 at Branch 2100, Until Discontinu ed, Routine gabapentin Yes 600mg 600 mg, Uni vers (NEURONTIN) 02-25 Oral, TID, it y of capsule 600 01:00: First dose [place] mg 00 on [facility] 02/24/21 at Branch 2000, Until Discontinu ed, Routine sulfamethox Yes 1{tbl} 1 tablet, [facility] azole-trime 02-25 Oral, BID, it y of thoprim 01:00: [place] (BACTRIM 00 on [facility] DS) 800-160 02/24/21 at Br anch mg per 1999, tablet 1 Until tablet Discontinu ed, EDIL
Re ason for Anti-Infec tive: Documented Infection< br>Documen elaine Infection Site: Urine
D uration of Therapy: 7 days baclofen Yes 10mg 10 mg, Univers (LIORESAL) 02-24 Oral, ity of tablet 10 22:29: BIDPRN, [place] mg 21 Starting Medical [facility] 02/24/21 at 1729, Until Discontinu ed, Routine, back pain famotidine 2020- No 20mg 20 mg, Univ ers (PEPCID AC) 02-24 Oral, ity of tablet 20 15:00: 14:19 ONCE, 1 [place] mg 00 :00 dose, [facility] 02/24/21 at Branch 1000, Routine amLODIPine 2020- No 5mg 5 mg, Unive rs (NORVASC) 02-24 Oral, ity of tablet 5 mg 14:00: 19:41 DAILY, [place] as 00 :51 First dose Medical on [facility] 02/24/21 at 0900, Until Discontinu ed, Routine bisacodyL Yes 10mg 10 mg, Univer s (DULCOLAX) 02-23 Rectal, ity of suppository 02:00: QHS, First [place] 10 mg 00 dose Medical (after Branch last modificati on) on [facility] 02/22/21 at 2100, Until Discontinu ed, Routine sennosides Yes 8.6mg 8.6 mg, Uni vers (SENOKOT) 02-21 Oral, BID, ity of tablet 8.6 21:30: First dose [place] mg 00 on Wed [facility] 02/21/21 at Branch 1630, Until Discontinu ed, Routine polyethylen Yes 17g 17 g, Unive rs e glycol 02-21 Oral, BID, ity o f 3350 powder 21:30: First dose [place] 17 g 00 on [facility] 02/21/21 at Branch 1630, Until Discontinu ed, Routine piperacilli 2020- No 3.375g 3.375 g, Univers n-tazobacta 02-21 IV ity of m (ZOSYN) 14:30: 20:43 Piggyback, [place] 3.375 00 :53 Q6H ABX, Medical gram/50 mL First dose Bra nch Piggyback (after RTU 3.375 g last reorder) on [facility] 02/21/21 at 0930, Until Discontinu ed, 50 mL
Reas on for Anti-Infec tive: Documented Infection< br>Documen elaine Infection Site: Urine
D uration of Therapy: Other (see Comments) magnesium 2020- No 2000mg 2,000 mg, Univers sulfate in 02-2123 IV ity of water 2 14:15: 16:54 Infusion, [place] gram/50 mL 00 :00 ONCE, 1 Medica l (4 %) 2,000 dose, Fri Bra nch mg 02/21/21 at piggyback 0915 pantoprazol Yes 40mg 40 mg, Univ ers e 02-21 Oral, ity of (PROTONIX) 14:00: DAILY, [place] EC tablet 00 First dose Medi maria esther 40 mg on Wed Branch 02/21/21 at 0900, Until Discontinu ed, Routine sennosides- 2020- No 1{tbl} 1 tablet, Univers docusate 02-21 Oral, ity of sodium 14:00: 14:06 DAILY, [place] (SENOKOT-S) 00 :29 First dose Me dical 8.6-50 mg on Wed Branch per tablet 02/21/21 at 1 tablet 0900, Until Discontinu ed, Routine heparin Yes 5000U 5,000 Univers (porcine) 02-21 Units, ity of injection 13:00: Subcutaneo [place] 5,000 Units 00 us, Q12H, Med ical First dose Branch on 02/21/21 at 0800, Until Discontinu ed, Routine Sliding 2020- No Subcutaneo Uni vers Scale 02-21 0727 us, AC+HS, ity of Insulin-Reg 12:30: 00:28 First dose [place] ular + Fsbg 00 :19 on Fri Medica l Testing 02/21/21 at Branch 0730, Until Discontinu ed, Routine acetaminoph Yes 650mg 650 mg, Un bib en 02-21 Oral, ity of (TYLENOL) 10:38: Q6HPRN, [place] tablet 650 43 Starting Medic al mg Fri Branch 02/21/21 at 0538, Until Discontinu ed, Routine, Pain (scale 1-3), Temp > 38.5 C NaCl 0.9% 2020- No 1000mL at 999 Uni vers (NS) bolus 02-21 mL/hr, ity of infusion 10:15: 11:19 1,000 mL, [place] as 1,000 mL 00 :00 IV [facility] ONCE, 1 dose, Wed02/21/21 at 0515, STAT cefTRIAXone 2020- No 1000mg 1,000 mg, Univers (ROCEPHIN) 02-21 IV ity of 1,000 mg in 10:02: 13:18 [place], [place] NaCl 0.9% 00 :11 Q24H ABX, Medic al (NS) 50 mL First dose Bra [facility] MINI-BAG on Wed02/21/21 at 0515, Until Discontinu ed, 50 mL
R laura for Anti-Infec tive: Documented Infection< br>Documen elaine Infection Site: Urine<br&g t;Duration of Therapy: 14 days piperacilli 2020- No 3.375g 3.375 g, Univers n-tazobacta 02-21 IV ity of m (ZOSYN) 07:15: 07:40 Piggyback, [place] 3.375 g in 00 :00 ONCE, 1 Medica l NaCl 0.9% dose, [facility] Branc h (NS) 100 mL 02/21/21 at MINI-BAG 0215, 100 mL
Reas on for Anti-Infec tive: Documented Infection< br>Documen elaine Infection Site: Urine
D uration of Therapy: Other (see Comments) NaCl 0.9% 2020- No 1000mL at 100 Uni vers (NS) IV 02-21 mL/hr, ity of infusion 07:00: 17:01 Intravenou [place] 1,000 mL 00 :20 s, [facility] , Starting Wed02/21/21 at 0200, Until Wed02/21/21 at 1201, Routine clindamycin 2020- No 600mg 600 mg, IV Univers (CLEOCIN) 02-21 Piggyback, ity of injection 03:15: 03:15 ONCE, 1 [place] 600 mg 00 :00 dose, [facility] 02/20/21 at Branch 2215, EDIL
Re ason for Anti-Infec tive: Documented Infection< br>Documen elaine Infection Site: Urine
D uration of Therapy: Other (see Comments)< br>Restric elaine use approved by: [employer] PROVIDER iopamidol 2020- No [id number] 120mL 120 mL, Univers (ISOVUE 02-21 Intravenou ity o f 370-500 mL) 02:33: 02:33 s, ONCE, 1 [place] injection 00 :00 dose, Maricel Medic al 120 mL 02/20/21 at Branch 2145, Routine NaCl 0.9% 2020- No 1000mL at 999 Uni vers (NS) bolus 02-21 mL/hr, ity of infusion 02:00: 05:10 1,000 mL, [place] as 1,000 mL 00 :00 IV Medical Piggyback, [place] ONCE, 1 dose, Maricel 02/20/21 at 2100, STAT clonazePAM Yes [id number] .5mg Take 1 Un bib 0.5 mg 6-18 tablet by ity of tablet 00:00: mouth 2 00 (two) Medical times [place] daily as needed (anxiety). amLODIPine Yes [id number] 5mg Take 1 U nivers 5 mg tablet 6-18 tablet by ity of 00:00: mouth [place] 00 daily. Medical Branch carvediloL Yes [id number] 12.5mg Take 1 Univers 12.5 mg 6-18 tablet by ity of tablet 00:00: mouth 2 00 (two) Medical times [place] daily with meals. NaCl 0.9% Yes [id number] 2000mg Infuse U nivers (NS) SolP 6-18 2,000 mg ity of 100 mL with 00:00: every 8 [place] as ceFAZolin 00 (eight) Medical 10 gram hours. [place] SolR 2,000 mg clonazePAM Yes [id number] .5mg Take 1 Un bib 0.5 mg 6-18 tablet by ity of tablet 00:00: mouth 2 [place] 00 (two) Medical times [place] daily as needed (anxiety). amLODIPine Yes [id number] 5mg Take 1 U nivers 5 mg tablet 6-18 tablet by ity of 00:00: mouth [place] 00 daily. Medical Branch carvediloL 2020-0 Yes [id number] 12.5mg Take 1 Univers 12.5 mg 6-18 tablet by ity of tablet 00:00: mouth 2 (two) Medical times Branch daily with meals. NaCl 0.9% 2020-0 Yes [id number] 2000mg Infuse U nivers (NS) SolP 6-18 2,000 mg ity of 100 mL with 00:00: every 8 [place] as ceFAZolin 00 (eight) Medical 10 gram hours. Branch SolR 2,000 mg clonazePAM 2020-0 Yes [id number] .5mg Take 1 Un bib 0.5 mg 6-18 tablet by ity of tablet 00:00: mouth (two) Medical times Branch daily as needed (anxiety). amLODIPine 2020-0 Yes [id number] 5mg Take 1 U nivers 5 mg tablet 6-18 tablet by ity of 00:00: mouth 00 daily. Medical Branch carvediloL 2020-0 Yes [id number] 12.5mg Take 1 Univers 12.5 mg 6-18 tablet by ity of tablet 00:00: mouth (two) Medical times Branch daily with meals. NaCl 0.9% 2020-0 Yes [id number] 2000mg Infuse U nivers (NS) SolP 6-18 2,000 mg ity of 100 mL with 00:00: every 8 [place] ceFAZolin 00 (eight) Medical 10 gram hours. Branch SolR 2,000 mg clonazePAM 2020-0 Yes [id number] .5mg Take 1 Un bib 0.5 mg 6-18 tablet by ity of tablet 00:00: mouth (two) Medical times Branch daily as needed (anxiety). amLODIPine 1-0 Yes [id number] 5mg Take 1 U nivers 5 mg tablet 6-18 tablet by ity of 00:00: mouth 00 daily. Medical Branch carvediloL 2020-0 Yes [id number] 12.5mg Take 1 Univers 12.5 mg 6-18 tablet by ity of tablet 00:00: mouth 2 (two) Medical times Branch daily with meals. NaCl 0.9% 1-0 Yes [id number] 2000mg Infuse U nivers (NS) SolP 6-18 2,000 mg ity of 100 mL with 00:00: every 8 [place] as ceFAZolin 00 (eight) Medical 10 gram hours. Branch SolR 2,000 mg clonazePAM 2021-0 Yes [id number] .5mg Take 1 Un bib 0.5 mg 6-18 tablet by ity of tablet 00:00: mouth (two) Medical times Branch daily as needed (anxiety). clonazePAM 2021-0 Yes [id number] .5mg Take 1 Un bib 0.5 mg 6-18 tablet by ity of tablet 00:00: mouth (two) Medical times Branch daily as needed (anxiety). clonazePAM 2021-0 Yes [id number] .5mg Take 1 Un bib 0.5 mg 6-18 tablet by ity of tablet 00:00: mouth (two) Medical times Branch daily as needed (anxiety). clonazePAM 2021-0 Yes [id number] .5mg Take 1 Un bib 0.5 mg 6-18 tablet by ity of tablet 00:00: mouth (two) Medical times Branch daily as needed (anxiety). clonazePAM 2021-0 Yes [id number] .5mg Take 1 Un bib 0.5 mg 6-18 tablet by ity of tablet 00:00: mouth (two) Medical times Branch daily as needed (anxiety). clonazePAM 2021-0 Yes [id number] .5mg Take 1 Un bib 0.5 mg 6-18 tablet by ity of tablet 00:00: mouth (two) Medical times Branch daily as needed (anxiety). clonazePAM 2021-0 Yes [id number] .5mg Take 1 Un bib 0.5 mg 6-18 tablet by ity of tablet 00:00: mouth (two) Medical times Branch daily as needed (anxiety). clonazePAM 2021-0 Yes [id number] .5mg Take 1 Un bib 0.5 mg 6-18 tablet by ity of tablet 00:00: mouth (two) Medical times Branch daily as needed (anxiety). amLODIPine 2021-0 2021- No [id number] 5mg Take 1 Univers 5 mg tablet 6-18 - tablet by it y of 00:00: 00:00 mouth [place] 00 :00 daily. Medical Branch carvediloL 0 2020- No [id number] 12.5mg Take 1 Univers 12.5 mg 01-17- tablet by ity of tablet 00:00: 00:00 mouth 2 [place] 00 :00 (two) Medical times Branch daily with meals. NaCl 0.9% 0 2020- No [id number] 2000mg Infuse Univers (NS) SolP -16 02- 2,000 mg ity o f 100 mL with 00:00: 00:00 every 8 [place] ceFAZolin 00 :00 (eight) Medical 10 gram hours. Branch SolR 2,000 mg Humulin R Humulin R 2020-0 Yes [place] 5 units Common 8 [place] PRN for BG Spirit 00:00: >200 1 hr - [facility] [address] meals [facility] baclofen 2020-0 Yes [id number] 10mg Q.5D Take 1 Meth ivette (LIORESAL) 3-11 tablet (10 st 10 MG 00:00: mg total) Hospita tablet 00 by mouth 2 l (two) times a day. insulin 2020-0 Yes Q.5D Inject Methodi lispro 1-[address] (HumaLOG) 15:04: skin 2 Hospit a 100 unit/mL 33 (two) l injection times a day before meals. (PER SLIDING SCALE) gabapentin 2020-0 Yes 600mg Q.[id number] Take 600 [facility] (NEURONTIN) 1-21 [id number] mg by s t 600 mg 15:04: 3D mouth 3 Hospita tablet 33 (three) l times a day. tamsulosin 2020-0 Yes .4mg QD Take 0.4 Met hodi (FLOMAX) 1-[address] 0.4 mg 15:04: mouth Hospita capsule,ext 33 every l ended morning. release 24hr metFORMIN 2020-0 Yes 500mg Q.[id number] Take 500 [facility] (GLUCOPHAGE 1-21 [id number] mg by s t ) 500 mg [...] Hospita enteric 33 l coated tablet docusate 2019-0 Yes Take by Method i sodium 1-[address] (STOOL 15:04: Hospita SOFTENER 33 l ORAL) buprenorphi 2020-0 Yes 8mg Q.5D 8 mg 2 Meth ivette ne HCL -06 (two) st (SUBUTEX) 8 00:00: times a Hos vikram mg tablet, 00 day. l sublingual Pen Flomaton Pen Flomaton 2018-08 Yes [place] 1 pen Common 11 [place] needle Spirit 00:00: - [facility] 00 [facility] Lancets Lancets 2018- Yes [place] 1 lancet C ommon 11 [place] Spirit 00:00: - [facility] 00 [facility] desipramine Yes 10mg QD Take 10 mg Methodi (NOPRAMIN) 03-[address] 10 MG 00:00: nightly. Hospita tablet 00 l sotalol Yes 80mg QD Take 80 mg Meth ivette (BETAPACE) 03-[address] 80 MG 00:00: daily. Hospita tablet 00 l LEVEMIR 2018-0 Yes Methodi FLEXTOUCH 03-01 st U-100 00:00: Hospita INSULN 100 00 l unit/mL (3 mL) insulin pen EMBEDA 50-2 2018-0 Yes Method i mg 7-24 st capsule,ora 00:00: Hospit a l 00 l only,ext.re l [place] venlafaxine 2018- Yes 37.5mg QD Take 37.5 [facility]i XR 7-[address] (EFFEXOR-XR 00:00: mouth Hospi ta ) 37.5 MG 00 daily. l 24 hr capsule TRUEPLUS Yes Methodi PEN NEEDLE 6-27 st 32 gauge x 00:00: Hospita 32" 00 l needle One Touch One Touch Yes Bryant 1 strip to Common Ultra Test Ultra Test 5-02 [place] test blood Spirit Strips Strips 00:00: glucose - [facility] 00 [facility] sertraline Yes 1{tbl} QD Take 1 Met hodi (ZOLOFT) 3-[address] 100 MG 00:00: mouth Hospita tablet 00 daily. l Blood Blood 2017-08 Yes [place] as Common Glucose Glucose 2-21 [place] directed Spir it Test Strip Test Strip 00:00: (DISPENSE - [facility]I BLOOD TEST [facility] STRIPS OF [facility]) [facility] ARIPiprazol Yes TK 1 T PO U nivers e 10 mg 2-09 QD ity of tablet 00:00: [facility] ARIPiprazol Yes TK 1 T PO U nivers e 10 mg 2-09 QD ity of tablet 00:00: [facility] ARIPiprazol Yes TK 1 T PO U nivers e 10 mg 2-09 QD ity of tablet 00:00: [facility] ARIPiprazol Yes TK 1 T PO U nivers e 10 mg 2-09 QD ity of tablet 00:00: [facility] ARIPiprazol Yes TK 1 T PO U nivers e 10 mg 2-09 QD ity of tablet 00:00: [facility] ARIPiprazol Yes TK 1 T PO U nivers e 10 mg 2-09 QD ity of tablet 00:00: [facility] ARIPiprazol Yes TK 1 T PO U nivers e 10 mg 2-09 QD ity of tablet 00:00: [facility] ARIPiprazol Yes TK 1 T PO U nivers e 10 mg 2-09 QD ity of tablet 00:00: [facility] ARIPiprazol Yes TK 1 T PO U nivers e 10 mg 2-09 QD ity of tablet 00:00: [facility] ARIPiprazol Yes TK 1 T PO U nivers e 10 mg 2- QD ity of tablet 00:00: [place] 00 Medical Branch ARIPiprazol 2016- Yes TK 1 T PO U nivers e 10 mg 2- QD ity of tablet 00:00: [place] 00 Medical Branch ARIPiprazol 2017-2020- No TK 1 T PO Univers e 10 mg 09-10- QD ity of tablet 00:00: 00:00 [place] 00 :00 Medical Branch triamcinolo 2015-0 Yes [id number] Apply to Univers ne 3-05 area(s) 2 ity of acetonide 00:00: (two) [place] (TRIDERM) 00 times Medical 0.1 % cream daily. Branch triamcinolo Yes [id number] Apply to Univers ne 3-05 area(s) 2 ity of acetonide 00:00: (two) [place] (TRIDERM) 00 times Medical 0.1 % cream daily. Branch triamcinolo Yes [id number] Apply to Univers ne 3-05 area(s) 2 ity of acetonide 00:00: (two) [place] (TRIDERM) 00 times Medical 0.1 % cream daily. Branch triamcinolo Yes [id number] Apply to Univers ne 3-05 area(s) 2 ity of acetonide 00:00: (two) [place] (TRIDERM) 00 times Medical 0.1 % cream daily. Branch triamcinolo 2014- Yes [id number] Apply to Univers ne 3-05 area(s) 2 ity of acetonide 00:00: (two) [place] (TRIDERM) 00 times Medical 0.1 % cream daily. Branch triamcinolo Yes [id number] Apply to Univers ne 3-05 area(s) 2 ity of acetonide 00:00: (two) [place] (TRIDERM) 00 times Medical 0.1 % cream daily. Branch triamcinolo 2014- Yes [id number] Apply to Univers ne 3-05 area(s) 2 ity of acetonide 00:00: (two) [place] (TRIDERM) 00 times Medical 0.1 % cream daily. Branch triamcinolo 2014- Yes [id number] Apply to Univers ne 3-05 area(s) 2 ity of acetonide 00:00: (two) [place] (TRIDERM) 00 times Medical 0.1 % cream daily. Branch triamcinbryson Yes [id number] Apply to [facility] 3- area(s) 2 ity of acetonide 00:00: (two) [place] (TRIDERM) 00 times Medical 0.1 % cream daily. Branch triamcinbryson Yes [id number] Apply to [facility] area(s) 2 ity of acetonide 00:00: (two) [place] (TRIDERM) 00 times Medical 0.1 % cream daily. Branch triamcinolo Yes [id number] Apply to [facility] 3- area(s) 2 ity of acetonide 00:00: (two) [place] (TRIDERM) 00 times Medical 0.1 % cream daily. Branch rudolphamgiana 2021- No [id number] Apply to [facility] 07-28 area(s) 2 ity of acetonide 00:00: 00:00 (two) [place] (TRIDERM) 00 :00 times Medical 0.1 % cream daily. Branch [id number] Yes Bryant as C ommon [place] directed [facility] Aripiprazol Aripiprazol Yes [place] 1 tablet Common e e Loera [facility] Levemir Levemir Yes [place] 20 units Com mon FlexTouch FlexTouch [place] Spir [facility] Atorvastati Atorvastati Yes Bryant 1 tablet Common n Calcium n Calcium [place] Spir [facility] Gemfibrozil Gemfibrozil Yes Bryant 1 tablet Common Lo[place] [facility] Baclofen Baclofen Yes [place] 1 tablet C ommon [place] with food Spirit or milk - CHI [facility] Sotalol HCl Sotalol HCl Yes Bryant 1 tablet Common Loera [facility] Aspir-Low Aspir-Low Yes [place] 1 tablet Common Lo[place] [facility] MetFORMIN MetFORMIN Yes [place] 1 tablet Common HCl ER HCl ER [place] with Spirit evening - CHI meal [facility] OneTouch OneTouch Yes [place] USE 1 Comm on Ultra Ultra [place] STRIP TO Spirit TEST BLOOD - CHI GLUCOSE [facility] Venlafaxine Venlafaxine Yes Bryant 1 capsule Common HCl ER HCl ER [place] with food Spiri t - [facility] Gabapentin Gabapentin Yes [place] as C ommon [place] directed [facility] Plavix Plavix Yes [place] TAKE 1 Common [place] TABLET BY Spirit MOUTH - CHI DAILY [facility] MetFORMIN MetFORMIN Yes [place] TAKE 1 C ommon HCl ER HCl ER [place] TABLET BY Spiri t MOUTH - CHI TWICE [facility] Indocin Indocin Yes Bryant 1 capsule Co mmon [place] with food Spirit or milk - CHI [facility] Desipramine Desipramine Yes Bryant 1 tablet Common HCl HCl Loera [facility] D3 Adult D3 Adult Yes [place] 1 tablet C ommon Lo[place] [facility] Immunizations Ordered Filled Immunization Date Status Comments [facility] e Immunization Name Name Pneumococcal 2011-08-31 [...] Time Observation Value Comments Source Systolic blood 2021-12-26 19:15:00 96 mm[Hg] [facility] Medicine Diastolic blood 2021-12-26 19:15:00 63 mm[Hg] [facility] Medicine Heart rate 2021-12-26 19:15:00 79 /min [facility] Body temperature 2021-12-26 19:15:00 36.83 Mitzi [facility] Body height 2021-12-26 19:15:00 160 cm [facility] Body weight 2021-12-26 19:15:00 63.504 kg [facility] BMI 2021-12-26 19:15:00 24.80 kg/m2 [facility] Systolic blood 2021-09-10 19:49:00 116 mm[Hg] [facility] Medicine Diastolic blood 2021-09-10 19:49:00 76 mm[Hg] [facility] Medicine Heart rate 2021-09-10 19:49:00 65 /min [facility] Body temperature 2021-09-10 19:49:00 37 Mitzi [facility] Respiratory rate 2021-09-10 19:49:00 16 /min [facility] Body height 2021-09-10 19:49:00 160 cm [facility] Body weight 2021-09-10 19:49:00 65.772 kg [facility] BMI 2021-09-10 19:49:00 25.69 kg/m2 [facility] Systolic blood 2021-04-01 05:00:00 127 mm[Hg] Univer sity of pressure [facility] Diastolic blood 2021-04-01 05:00:00 60 mm[Hg] Unive rsity of pressure [facility] Branch Heart rate 2021-04-01 05:00:00 62 /min [facility] [place] [facility] Respiratory rate 2021-04-01 05:00:00 17 /min Univ ersity of [facility] Oxygen saturation in 2021-04-01 05:00:00 98 /min University of Arterial blood by [facility] Pulse oximetry Branch Body temperature 2021-04-01 04:00:00 36.72 Mitzi [facility] ersity [facility] [place] [facility] Body weight 2021-04-01 00:54:00 63.504 kg [facility] [place] [facility] BMI 2021-04-01 00:54:00 23.30 kg/m2 [facility] [place] [facility] Systolic blood 2021-02-26 20:30:00 120 mm[Hg] Univer sity of pressure [place] [facility] Diastolic blood 2021-02-26 20:30:00 76 mm[Hg] Unive rsity of pressure [place] [facility] Heart rate 2021-02-26 20:30:00 81 /min Universi ty of [facility] Body temperature 2021-02-26 20:30:00 36.56 Mitzi Univ ersity [facility] [place] [facility] Respiratory rate 2021-02-26 20:30:00 18 /min Univ ersity of [facility] Oxygen saturation in 2021-02-26 20:30:00 98 /min University of Arterial blood by [place] Medi maria esther Pulse oximetry Branch Body height 2021-02-21 10:48:00 165.1 cm [facility] [place] [facility] Body weight 2021-02-21 10:48:00 63.504 kg [facility] [place] [facility] BMI 2021-02-21 10:48:00 23.30 kg/m2 [facility] [place] [facility] Systolic blood 2021-02-14 15:12:00 144 mm[Hg] Univer sity of pressure [place] [facility] Diastolic blood 2021-02-14 15:12:00 76 mm[Hg] Unive rsity of pressure [place] [facility] Heart rate 2021-02-14 15:12:00 60 /min [facility] [place] [facility] Body temperature 2021-02-14 15:12:00 36.67 Mitzi [facility] [place] [facility] Body height 2021-02-14 15:12:00 162.6 cm [facility] [place] [facility] Oxygen saturation in 2021-02-14 15:12:00 98 /min University of Arterial blood by [facility] Pulse oximetry Branch Systolic blood 2019-02-23 20:43:00 146 mm[Hg] Univer sity of pressure [place] [facility] Diastolic blood 2019-02-23 20:43:00 86 mm[Hg] Unive rsity of pressure [place] [facility] Heart rate 2019-02-23 20:43:00 66 /min [facility] [place] [facility] Body temperature 2019-02-23 20:43:00 36.61 Mitzi [facility] [place] [facility] Respiratory rate 2019-02-23 20:43:00 12 /min Univ [facility] [place] [facility] Body height 2019-02-23 20:43:00 162.6 cm [facility] [place] [facility] Body weight 2019-02-23 20:43:00 67.45 kg [facility] [place] [facility] BMI 2019-02-23 20:43:00 25.52 kg/m2 [facility] [place] [facility] Oxygen saturation in 2019-02-23 20:43:00 97 /min University of Arterial blood by [facility] Pulse oximetry Branch Systolic blood 2019-02-23 20:43:00 146 mm[Hg] Univer sity of pressure [place] [facility] Diastolic blood 2019-02-23 20:43:00 86 mm[Hg] Unive rsity of pressure [facility] Heart rate 2019-02-23 20:43:00 66 /min [facility] Body temperature 2019-02-23 20:43:00 36.61 Mitzi [facility] Respiratory rate 2019-02-23 20:43:00 12 /min [facility] Body height 2019-02-23 20:43:00 162.6 cm [facility] Body weight 2019-02-23 20:43:00 67.45 kg [facility] BMI 2019-02-23 20:43:00 25.52 kg/m2 [facility] Oxygen saturation in 2019-02-23 20:43:00 97 /min [facility] Arterial blood by [facility] Pulse oximetry Branch Procedures Procedure Date / Time Performing Clinician Source Performed BLOOD CULTURE SCREEN 2021-04-01 02:34:00 Laz Lock [facility] CT HEAD WO CONTRAST 2021-04-01 02:07:16 Laz Lock [facility] URINALYSIS 2021-04-01 01:55:00 Laz Lock [facility] COVID-19 (ID NOW RAPID 2021-04-01 01:45:00 Laz Lock [facility] TESTING) [facility] CBC WITH DIFF 2021-04-01 01:41:00 Laz Lock [facility] PROTHROMBIN TIME / INR 2021-04-01 01:41:00 Laz Lock [facility] ACTIVATED PARTIAL 2021-04-01 01:41:00 Laz Lock [facility] THRMPLAS RADHA [facility] BLOOD CULTURE SCREEN 2021-04-01 01:38:00 Laz Lock [facility] LIPASE 2021-04-01 01:38:00 Laz Lock [facility] TROPONIN I 2021-04-01 01:38:00 Laz Lock [facility] COMP. METABOLIC PANEL 2021-04-01 01:38:00 Laz Lock [facility] ([id number]) [facility] N-TERMINAL PRO-BNP 2021-04-01 01:38:00 Laz Lock [facility] AC PANEL 21 + LACTIC 2021-04-01 01:37:00 Laz Lock [facility] ACID [facility] NOTICE OF PRIVACY 2021-04-01 00:48:38 Doctor Unassigned, No [facility] PRACTICES Name Medical Branch CONSENT/REFUSAL FOR 2021-04-01 00:46:04 [facility], [facility]AT[facility] Name Medical Branch REFERRAL- 2021-03-21 05:01:00 Doctor Unassigned, No [facility] REQUEST/RESPONSE Name [facility] POCT GLUCOSE (AUTOMATED) 2021-02-26 22:10:00 Etta Mckeon Un iversity of [facility] POCT GLUCOSE (AUTOMATED) 2021-02-26 17:16:00 Etta Mckeon Un iversity of [facility] POCT GLUCOSE (AUTOMATED) 2021-02-26 13:42:00 Etta Mckeon Un iversity of [facility] BASIC METABOLIC PANEL 2021-02-26 10:38:00 Lillie Wilkins [facility] (NA, K, CL, CO2, Medical Branch GLUCOSE, BUN, CREATININE, CA) CBC WITH DIFF 2021-02-26 10:38:00 Lillie Wilkins [place] [facility] POCT GLUCOSE (AUTOMATED) 2021-02-26 02:23:00 Etta Mckeon Un iversity of [facility] POCT GLUCOSE (AUTOMATED) 2021-02-25 21:53:00 Etta Mckeon Un iversity of [facility] POCT GLUCOSE (AUTOMATED) 2021-02-25 16:05:00 Etta Mckeon Un iversity of [facility] Branch POCT GLUCOSE (AUTOMATED) 2021-02-25 12:38:00 Etta Mckeon Un iversity of [facility] BASIC METABOLIC PANEL 2021-02-25 08:09:00 Sarah Ricketts [facility] (NA, K, CL, CO2, Medical Branch GLUCOSE, BUN, CREATININE, CA) CBC WITH DIFF 2021-02-25 08:09:00 Sarah Ricketts [facility] POCT GLUCOSE (AUTOMATED) 2021-02-25 02:14:00 Etta Mckeon Un iversity of [facility] POCT GLUCOSE (AUTOMATED) 2021-02-24 21:52:00 Etta Mckeon Un [facility]versity of [place] [facility] POCT GLUCOSE (AUTOMATED) 2021-02-24 16:38:00 Etta Mckeon Un iversity of [facility] POCT GLUCOSE (AUTOMATED) 2021-02-24 12:35:00 Etta Mckeon Un iversity of [facility] BASIC METABOLIC PANEL 2021-02-24 08:47:00 Claudette [facility] (NA, K, CL, CO2, Medical Branch GLUCOSE, BUN, CREATININE, CA) CBC WITH DIFF 2021-02-24 08:47:00 [facility] GLYCOSYLATED HEMOGLOBIN 2021-02-24 08:47:00 Zane Ricketts i [facility] (A1C) [facility] Clinic POCT GLUCOSE (AUTOMATED) 2021-02-24 01:40:00 Etta Mckeon Un iversity of [facility] POCT GLUCOSE (AUTOMATED) 2021-02-23 22:45:00 Etta Mckeon Un iversity of [facility] POCT GLUCOSE (AUTOMATED) 2021-02-23 16:55:00 Etta Mckeon Un iversity of [facility] Branch POCT GLUCOSE (AUTOMATED) 2021-02-23 14:08:00 Etta Mckeon iversity of [facility] BASIC METABOLIC PANEL 2021-02-23 08:46:00 Sarah Ricketts [facility] (NA, K, CL, CO2, Medical Branch GLUCOSE, BUN, CREATININE, CA) CBC WITH DIFF 2021-02-23 08:46:00 Sarah Ricketts [facility] POCT GLUCOSE (AUTOMATED) 2021-02-23 02:23:00 Etta Mckeon Un iversity of [facility] POCT GLUCOSE (AUTOMATED) 2021-02-22 22:50:00 Etta Mckeon Un iversity of [facility] POCT GLUCOSE (AUTOMATED) 2021-02-22 17:08:00 Etta Mckeon Un [facility] BASIC METABOLIC PANEL 2021-02-22 09:31:00 Sarah Ricketts [facility] (NA, K, CL, CO2, Medical Branch GLUCOSE, BUN, CREATININE, CA) CBC WITH DIFF 2021-02-22 09:31:00 Sraah Ricketts [facility] POCT GLUCOSE (AUTOMATED) 2021-02-22 01:56:00 Etta Mckeon Un [facility] POCT GLUCOSE (AUTOMATED) 2021-02-21 21:28:00 Wiggins, Jaclyn [facility] acute hospital POCT GLUCOSE (AUTOMATED) 2021-02-21 17:19:00 Wiggins, Jaclyn [facility] acute hospital POCT GLUCOSE (AUTOMATED) 2021-02-21 14:48:00 Jaclyn Wiggins [facility] acute hospital PHOSPHORUS 2021-02-21 11:17:00 Gene Ruiz [facility] MAGNESIUM 2021-02-21 11:17:00 Joseph Gene [facility] HEPATIC FUNCTION PANEL 2021-02-21 11:17:00 Gene Ruiz [facility] ([id number]) [facility] T,BU/BC,ALT,AST,ALK PHOS) BASIC METABOLIC PANEL 2021-02-21 11:17:00 Gene Ruiz [facility] (NA, K, CL, CO2, Medical Branch GLUCOSE, BUN, CREATININE, CA) CBC WITH DIFF 2021-02-21 11:17:00 Gene Ruiz [facility] PROTHROMBIN TIME / INR 2021-02-21 11:17:00 Gene Ruiz General acute hospital ACTIVATED PARTIAL 2021-02-21 11:17:00 Gene Ruiz [facility] THRMPLAS [facility] LACTIC ACID WHOLE BLOOD 2021-02-21 11:17:00 Gene Ruiz [facility] XR CHEST 1 VW 2021-02-21 02:52:40 Elsa Landry [facility] CT ABDOMEN PELVIS W 2021-02-21 02:39:56 Elsa Landry [facility] CONTRAST [facility] URINALYSIS 2021-02-21 01:08:00 [facility] URINE CULTURE 2021-02-21 01:08:00 [facility]OUT[facility] & RHYTHM 2021-02-21 01:01:32 Elsa Landry [facility] STRIP [facility] BLOOD CULTURE SCREEN 2021-02-21 00:58:00 [facility] LIPASE 2021-02-21 00:58:00 [facility] TROPONIN I 2021-02-21 00:58:00 Joseph [facility] HEPATIC FUNCTION PANEL 2021-02-21 00:58:00 Joseph [facility] ([id number]) (ALB,T.PRO,BILI [facility] T,BU/BC,ALT,AST,ALK PHOS) COMP. METABOLIC PANEL 2021-02-21 00:58:00 Joseph [facility] ([id number] CBC WITH DIFF 2021-02-21 00:58:00 Joseph [facility] COVID-19 (ID NOW RAPID 2021-02-21 00:58:00 Joseph [facility] TESTING) [facility] LACTIC ACID WHOLE BLOOD 2021-02-21 00:57:00 Shefali Ruiz General acute hospital NOTICE OF PRIVACY 2021-02-21 00:23:04 Doctor Unassigned, No [facility] PRACTICES Name [facility] Center Clinic PATIENT QUESTIONNAIRE 2021-02-14 05:01:00 Doctor Unassigned, No [facility] Name [facility] CT CHEST WO CONTRAST 2020-11-07 18:49:00 Arvind Moore [facility] XR CHEST 2 VW 2019-02-23 22:21:03 Enoch Cabrera [facility] Plan of Care Planned Activity Planned Date Details Comments Source Future Scheduled 2021-12-26 Screening for [facility] Col lege Test 14:13:18 malignant neoplasm of of Med icine colon (procedure) [code = 255141366] Future Scheduled 2021-12-26 COVID-19 Vaccine (#1) [employer] Test 14:13:18 [code = COVID-19 of Medicine Vaccine (#1)] Future Scheduled 2021-12-26 TETANUS SHOT (ADULT) [employer] Test 14:13:18 [code = TETANUS SHOT of Medi cine (ADULT)] Future Scheduled 2021-12-26 BMI FOLLOW UP PLAN [facility] r College Test 14:13:18 [code = BMI FOLLOW UP of Med icine PLAN] Future Scheduled 2021-12-26 Hepatitis C screening [employer] Test 14:13:18 (procedure) [code = of Medic ine 068007220] Future Scheduled 2021-12-26 ZOSTER VACCINE (1 of [facility] College Test 14:13:18 2) [code = ZOSTER of Medicin e VACCINE (1 of 2)] Future Scheduled 2021-12-26 Abdominal aortic [facility] Test 14:13:18 aneurysm screening of Medici ne (procedure) [code = 629535903] Future Scheduled 2021-12-26 FALL SCREEN [code = [employer] Test 14:13:18 FALL SCREEN] of Medicine Future Scheduled 2021-12-26 Pneumococcal 65+ (1 - [employer] Test 14:13:18 PCV) [code = of Medicine Pneumococcal 65+ (1 - PCV)] Future Scheduled 2021-12-26 FLU VACCINE > 6 [facility] C ollege Test 14:13:18 MONTHS [code = FLU of Medici ne VACCINE > 6 MONTHS] Future Scheduled 2021-12-26 MEDICARE AWV [facility] Alyssa ege Test 14:13:18 (Initial) [code = of Medicin e MEDICARE AWV (Initial)] Future Scheduled 2021-09-10 COMPLETE PFT WITHOUT 1 Occurrences [employer] Test 14:22:58 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 [code starting of Medi cine = 88524] 09/10/2021 until 09/10/2022 Future Scheduled 2021-09-10 CT CHEST HIGH 1 Occurrences [facility] Co [employer]lege Test 14:14:59 RESOLUTION WO starting of Medicine CONTRAST [code = 09/10/2021 until 52635-7] 09/10/2022 Future Scheduled 2021-09-10 Screening for [facility] Col lege Test 14:00:29 malignant neoplasm of of Med icine colon (procedure) [code = 444153816] Future Scheduled 2021-09-10 COVID-19 Vaccine (1) [employer] Test 14:00:29 [code = COVID-19 of Medicine Vaccine (1)] Future Scheduled 2021-09-10 TETANUS SHOT (ADULT) [employer] Test 14:00:29 [code = TETANUS SHOT of Medi cine (ADULT)] Future Scheduled 2021-09-10 Hepatitis C screening [facility] [place] Test 14:00:29 (procedure) [code = of Medic ine 913275782] Future Scheduled 2021-09-10 ZOSTER VACCINE (1 of [facility] Test 14:00:29 2) [code = ZOSTER of Medicin e VACCINE (1 of 2)] Future Scheduled 2021-09-10 FLU VACCINE > 6 [facility] C ollege Test 14:00:29 MONTHS [...] - PPSV23)] Future Scheduled 2021-09-10 MEDICARE AWV [facility] Alyssa ege Test 14:00:29 (Initial) [...] [facility]odist Test (procedure) [code = Hospital 729393507] Future Scheduled COLONOSCOPY SCREENING Me thodist Test [code = COLONOSCOPY Hospital SCREENING] Future Scheduled SHINGLES VACCINES Method ist Test (#1) [code = SHINGLES Hospit al VACCINES (#1)] Future Scheduled INFLUENZA VACCINE Method ist Test [code = INFLUENZA Hospital VACCINE] Encounters Start End Encounter Admission Attending Care Care Encounter Source Date/Time Date/Time Type Type Clinicians Facility Department ID 2021-12-24 Outpatient Loera, STLMLC STLMLC [id number] Common 09:19:00 Bryant [facility] 2021-11-26 Outpatient Loera, STLMLC STLMLC [id number] Common 09:54:01 Bryant [facility] 2021-08-27 Outpatient Loera, STLMLC STLMLC [id number] Common 14:24:19 Bryant [facility] 2021-08-27 Outpatient Loera, STLMLC STLMLC [id number] Common 14:23:28 Bryant 26583 [facility] 2021-08-27 Outpatient Loera, STLMLC STLMLC [id number] Common 13:11:30 Bryant 05404 [facility] 2021-08-27 Outpatient Loera, STLMLC STLMLC [id number] Common 12:58:11 Bryant 00087 [facility] 2021-08-27 Outpatient Loera, STLMLC STLMLC [id number] Common 12:50:45 Bryant 93309 [facility] 2021-08-27 Outpatient Loera, STLMLC STLMLC [id number] Common 12:33:09 Bryant 39452 [facility] 2021-08-27 Outpatient Loera, STLMLC STLMLC [id number] Common 11:21:28 Bryant 77262 [facility] 2021-08-27 Outpatient Loera, STLMLC STLMLC [id number] Common 11:14:28 Bryant 17259 [facility] 2021-08-27 Outpatient Loera, STLMLC STLMLC [id number] Common 11:07:10 Bryant 59279 [facility] 2021-08-27 Outpatient Loera, STLMLC STLMLC [id number] Common 11:01:07 Bryant 52158 [facility] 2021-08-27 Outpatient Loera, STLMLC STLMLC [id number] Common 11:00:53 Bryant 12500 [facility] 2021-08-27 Outpatient Loera, STLMLC STLMLC [id number] Common 10:58:57 [facility] 04322 [facility] 2021-06-02 Emergency [facility] [id number] Univers 19:11:59 ity [facility] 2021-06-02 Emergency [facility] [id number] Univers 10:12:20 ity [facility] 2021-06-02 Emergency [facility] [id number] Univers 00:43:37 ity [facility] 2019-10-02 Inpatient Rajinder HCAPM SILAS [id number] [facility] 08:00:00 Trever [facility] 2019-09-19 Inpatient MIHIR Calvillo HCAPM RADI [id number] [facility] 11:00:00 Trever [id number] [facility] 2021-12-26 2021-12-26 Office LALITO, BCM [id number] [facility] 14:05:54 14:59:54 Visit DIPABEN AMBULATOR 350.1.13.21 College Y 0.2.7.2.686 [id number] [facility] 315 e 2021-12-18 2021-12-18 Outpatient EL LALITO, SLEH SLE [id number] [facility] 13:32:29 23:59:00 DIPABEN 2021-11-26 2021-11-26 Outpatient EL LALITO, SLEH SLE [id number] [facility] 00:00:00 00:00:00 DIPABEN 2021-11-25 2021-11-25 ambulatory STLMLC STLMLC [id number] Common 00:00:00 00:00:00 [facility] 2021-10-24 2021-10-24 Outpatient EL LALITO, SLEH SLE [id number] [facility] 00:00:00 00:00:00 DIPABEN 2021-10-23 2021-10-23 ambulatory STLMLC STLMLC [id number] Common 00:00:00 00:00:00 [facility] 2021-10-20 2021-10-20 ambulatory STLMLC STLMLC [id number] Common 00:00:00 00:00:00 [facility] 2021-10-17 2021-10-17 Outpatient [facility] [id number] [address] [place] [address] 13:09:29 13:09:29 Colleg e of Medicin e 2021-09-29 2021-09-29 Outpatient MIHIR STARKEY, SLEH SLEH [id number] [facility] 00:00:00 00:00:00 DIPABEN 2021-09-22 2021-09-22 ambulatory STLMLC STLMLC [id number] Common 00:00:00 00:00:00 [facility] 2021-09-22 2021-09-22 ambulatory STLMLC STLMLC [id number] Common 00:00:00 00:00:00 [facility] 2021-09-10 2021-09-10 Office ABBIE STARKEY 1.2.840.114 [id number] [facility] 13:40:43 14:43:07 Visit DIPABEN AMBULATOR 350.1.13.21 College Y 0.2.7.2.686 [id number] Medi carmelina 315 e 2021-08-26 2021-08-26 Refill [facility] 1.2.840.[id number] [place] [address] 00:00:00 00:00:00 [facility] 350.1.13.10 it y of CANCER 4.2.7.2.686 [facility] [phone] [place] [address] Branch 2021-07-14 2021-07-14 ambulatory STLMLC STLMLC [id number] Common 00:00:00 00:00:00 [facility] 2021-07-08 2021-07-08 ambulatory STLMLC STLMLC [id number] Common 00:00:00 00:00:00 [facility] 2021-07-03 2021-07-03 Outpatient Katy COLIN [facility] [id number] Univers 10:00:00 10:00:00 SAWYER [id number] ity of [facility] 2021-07-03 2021-07-03 Outpatient Katy COLIN [facility] [id number] Univers 10:00:00 10:00:00 SAWYER [facility] 2021-06-11 2021-06-11 [facility] 1.2.840.114 [id number] Univers 00:00:00 00:00:00 [place] [id number] it y of CANCER 4.2.7.2.686 [facility] [phone] [address] 2021-05-15 2021-05-15 Outpatient STLMLC STLMLC [id number] Common 00:00:00 00:00:00 [facility] 2021-05-09 2021-05-09 [facility] 1.2.840.114 [id number] Univers 00:00:00 00:00:00 [facility] 350.1.13.10 it y of Cancer 4.2.7.2.686 [facility] [phone] [address] 2021-04-16 2021-04-16 Outpatient STLMLC STLMLC [id number] Common 00:00:00 00:00:00 [facility] 2021-04-14 2021-04-14 Outpatient STLMLC STLMLC [id number] Common 00:00:00 00:00:00 [facility] 2021-04-14 2021-04-14 Outpatient STLMLC STLMLC [id number] Common 00:00:00 00:00:00 [facility] 2021-04-14 2021-04-14 Outpatient STLMLC STLMLC [id number] Common 00:00:00 00:00:00 [facility] 2021-04-11 2021-04-11 Outpatient STLMLC STLMLC [id number] Common 00:00:00 00:00:00 [facility] 2021-04-04 2021-04-04 [facility] [id number] Univers 10:30:00 10:30:00 NANCI [id number] [facility] 2021-04-04 2021-04-04 [facility]patient [facility] [id number] Univers 10:30:00 10:30:00 [facility]CI [facility] 2021-03-31 2021-04-01 [facility] [id number] [id number] Univers 19:55:00 01:41:00 Laz Sullivan 350.1.13.10 i [facility] 4.2.7.2.686 [facility] [id number] [facility] 084 Branch 2021-03-21 2021-03-21 Outpatient STLMLC STLMLC [id number] Common 00:00:00 00:00:00 [facility] 2021-03-21 2021-03-21 Orders Doctor ROSE 1.2.840.114 [id number] Univers 00:00:00 00:00:00 Only Unassigned, MICHAEL 350.1.13.10 ity of [facility] 4.2.7.2.686 [facility] [phone] [facility] 009 Branch 2021-03-20 2021-03-20 Outpatient STLMLC STLMLC [id number] Common 00:00:00 00:00:00 [facility] 2021-03-07 2021-03-07 Outpatient STLMLC STLMLC [id number] Common 00:00:00 00:00:00 [facility] 2021-03-07 2021-03-07 Outpatient STLMLC STLMLC [id number] Common 00:00:00 00:00:00 [facility] 2021-02-28 2021-02-28 Outpatient Katy JETER [facility] [id number] Univers 10:30:00 10:30:00 BETTYE [id number] [facility] 2021-02-28 2021-02-28 Outpatient Katy JETER [facility] [id number] Univers 00:00:00 00:00:00 BETTYE [facility] 2021-02-27 2021-02-27 Outpatient STLMLC STLMLC [id number] Common 00:00:00 00:00:00 [facility] 2021-02-27 2021-02-27 Outpatient STLMLC STLMLC [id number] Common 00:00:00 00:00:00 [facility] 2021-02-27 2021-02-27 Transition Maria L Montanez 1.2.840.114 [id number] Univers 00:00:00 00:00:00 of Care Niya Gutierrezy 350.1.13.10 it y of [phone] [address] Branch 2021-02-20 2021-02-26 [facility] Gwendolyn Landrylizette Vini Arriola 1.2.840. 114 [id number] Univers 19:39:00 18:25:00 Encounter Jaclyn Wigginsy 350.1.13.10 ity of [facility] 4.2.7.2.[address] [phone] [place] [id number] Branch 2021-02-24 2021-02-24 Outpatient STLMLC STLMLC [id number] Common 00:00:00 00:00:00 [facility] 2021-02-19 2021-02-19 Outpatient STLMLC STLMLC [id number] Common 00:00:00 00:00:00 [facility] 2021-02-17 2021-02-17 Outpatient STLMLC STLMLC [id number] Common 00:00:00 00:00:00 [facility] 2021-02-14 2021-02-14 Office Micha [facility] 1.2.840.114 [id number] Univers 10:04:09 11:24:24 Visit Bettye TORRES 350.1.13.10 it[facility] 4.2.7.2.686 [facility] AT [phone] Ia reina [place] 509262 Branch [facility] 2021-02-14 2021-02-14 Outpatient Katy JETER [facility] [id number] Univers 10:00:00 10:00:00 BETTYE [id number] wendy [facility] 2021-02-14 2021-02-14 Outpatient Katy JETER [facility] [id number] Univers 10:00:00 10:00:00 BETTYE nguyen [facility] 2021-02-14 2021-02-14 Orders Doctor MILTON 1.2.840.114 [id number] Univers 00:00:00 00:00:00 Only Unassigned, MICHAEL 350.1.13.10 ity of [place] [facility] 4.2.7.2.686 Dante as [id number] [facility] 009 Branch 2021-02-10 2021-02-10 Outpatient R [facility] [id number] Univers 14:00:00 14:00:00 [id number] ity [facility] 2021-02-10 2021-02-10 Outpatient R [facility] [id number] Univers 14:00:00 14:00:00 ity [facility] 2021-01-20 2021-01-20 Transition Maria L Montanez 1.2.840.114 [id number] Univers 00:00:00 00:00:00 of Care Niya Tobar 350.1.13.10 it y [place] [phone] [facility] 403 Branch 2021-01-01 2021-01-01 Outpatient STLMLC STLMLC [id number] Common 00:00:00 00:00:00 [facility] 2020-12-23 2020-12-23 Outpatient STLMLC STLMLC [id number] Common 00:00:00 00:00:00 [facility] 2020-12-02 2020-12-02 Outpatient STLMLC STLMLC [id number] Common 00:00:00 00:00:00 [facility] 2020-11-07 2020-11-07 [facility], 1.2.840.1 [id number] Methodi 13:30:00 23:59:00 Encounter Arvind 72456.1.[address] [place] 3.430.2.7 Hospit a .3.025257 l .8 2020-11-07 2020-11-07 Travel 1.2.840.1 1.2.686.970 [id number] Methodi 00:00:00 00:00:[address] 3.430.2.7 0.2.7.3.698 Ho spita .3.380753 084.8 l .8 2020-10-18 2020-10-18 Travel 1.2.840.1 [id number] [id number] Methodi 00:00:00 00:00:[address] 3.430.2.7 0.2.7.3.698 Ho spita .3.225416 084.8 l .8 2020-10-15 2020-10-15 Transcribe [place], 1.2.840.1 [id number] Methodi 00:00:00 00:00:00 Orders Arvind 50595.1.[address] [place] 3.430.2.7 Hospit a .3.230509 l .8 2020-10-15 2020-10-15 Outpatient STLMLC STLMLC [id number] Common 00:00:00 00:00:00 [facility] 2020-09-25 2020-09-25 Outpatient STLMLC STLMLC [id number] Common 00:00:00 00:00:00 [facility] 2020-09-23 2020-09-23 Outpatient STLMLC STLMLC [id number] Common 00:00:00 00:00:00 [facility] 2020-08-23 2020-08-23 Outpatient STLMLC STLMLC [id number] Common 00:00:00 00:00:00 [facility] 2020-08-20 2020-08-20 Outpatient STLMLC STLMLC [id number] Common 00:00:00 00:00:00 [facility] 2020-08-14 2020-08-14 Outpatient STLMLC STLMLC [id number] Common 00:00:00 00:00:00 [facility] 2020-08-12 2020-08-12 Outpatient STLMLC STLMLC [id number] Common 00:00:00 00:00:00 [facility] 2020-08-09 2020-08-09 Outpatient STLMLC STLMLC [id number] Common 00:00:00 00:00:00 [facility] 2020-03-22 2020-03-22 [facility] [id number] Common 08:45:00 08:45:00 [place] [address] [facility] 2020-03-08 2020-03-08 [facility] [id number] Common 10:26:00 10:26:00 t [employer] [place] [address] [facility] 2020-03-05 2020-03-05 [facility] [id number] Common 16:14:00 16:14:00 t [employer] [place] [address] [facility] 2020-03-01 2020-03-01 Outpatient [facility] [id number] Common 10:00:00 10:00:00 t [employer] [place] [address] [facility] 2020-03-01 2020-03-01 Outpatient [facility] [id number] Common 10:00:00 10:00:00 t [employer] [place] [address] [facility] 2020-01-10 2020-01-10 Out[facility] [id number] Common 13:52:00 13:52:00 t Specialty/[facility] 2019-12-28 2019-12-28 [facility] [id number] Common 13:15:00 13:15:00 t Specialty/U [facility] 2019-11-16 2019-11-16 [facility] [id number] Common 15:00:00 15:00:00 t Specialty/U Sp [facility] ro[facility] 2019-10-20 2019-10-20 Outpatient [facility] [facility] [id number] Common 10:09:00 10:09:00 t Specialty/U Sp garth Specialty rology - [facility] 2019-10-18 2019-10-18 [facility] [id number] Common 08:30:00 08:30:00 t Specialty/U Sp garth Specialty rology - [facility] /Urology Clinic [facility] 2019-10-17 2019-10-17 [facility] 29 [id number] Common 15:00:00 15:00:00 [place] [address] [facility] 2019-10-13 2019-10-13 [facility] 29 [id number] Common 15:13:00 15:13:00 t [place] [address] [facility] 2019-10-02 2019-10-02 Outpatient JORDI CalvilloCL OUTD [id number] [facility] 23:54:00 23:54:00 [facility] 2019-09-18 2019-09-18 Outpatient JORDI CalvilloPM RADI [id number] [id number] [facility] 09:00:00 09:00:00 [place] [id number] [facility] 2019-09-15 2019-09-15 [facility] 29 [id number] Common 09:00:00 09:00:00 t [place] [address] [facility] 2019-08-10 2019-08-10 [facility] 29 [id number] Common 11:32:00 11:32:00 t [place] [address] [facility] 2019-07-17 2019-07-17 [facility] 28 [id number] Common 16:43:00 16:43:00 [place] [address] [facility] 2019-06-21 2019-06-21 [facility] 28 [id number] Common 11:12:00 11:12:00 [place] [address] [facility] 2019-06-19 2019-06-19 [facility] 28 [id number] Common 14:00:00 14:00:00 t [place] [address] [facility] 2019-06-12 2019-06-12 [facility] 28 [id number] Common 15:55:00 15:55:00 t [place] [address] [facility] 2019-06-01 2019-06-01 Outpatient [facility] 28 [id number] Common 13:44:00 13:44:00 [address] [place] [address] [facility] 2019-05-24 2019-05-24 [facility] [id number] Common 13:44:00 13:44:00 [place] [address] [facility] 2019-05-18 2019-05-18 [facility] 27 [id number] Common 10:50:00 10:50:00 [place] [address] [facility] 2019-05-01 2019-05-01 [facility] 27 [id number] Common 15:00:00 15:00:00 [address] [place] [address] [facility] 2019-04-14 2019-04-14 [facility] 27 [id number] Common 16:09:00 16:09:00 [address] [place] [address] [facility] 2019-03-08 2019-03-08 Telephone Critical access hospital [id number] 00:00:00 00:00:00 Tara, Y HEALTH 350.1.13.10 [facility] [place] 4.2.7.2.686 [id number] [facility] 2019-03-08 2019-03-08 Telephone Critical access hospital [id number] [facility] 00:00:00 00:00:00 Tara, Y HEALTH 350.1.13.10 i ty of [facility] [id number] [address] [place] 2019-03-07 2019-03-07 Case Jalen [facility] [id number] 00:00:00 00:00:00 Management Madelyn Y HEALTH 350.1.13.10 [facility] 4.2.7.2.686 [id number] [facility] 2019-03-07 2019-03-07 Case Zaidan, UNIVERSIT [id number] Univers 00:00:00 00:00:00 Management [facility] Y HEALTH 350.1.13.10 ity of [place] [facility] [id number] [place] [address] [place] 2019-03-01 2019-03-01 Outpatient Chely Smart [id number] Common 13:52:00 13:52:00 t [employer] [facility] it Drive [facility] 2019-02-23 2019-02-23 [facility] [id number] 16:56:13 23:59:00 Encounter Madelyn Y HEALTH 350.1.13.10 [facility] 4.2.7.2.686 [id number] 7 2019-02-23 2019-02-23 [facility] [id number] [facility] 16:56:13 23:59:00 Encounter Madelyn Y HEALTH 350.1.13.10 ity of [place] [id number] [facility] 807 Branch 2019-02-23 2019-02-23 Office Critical access hospital [id number] 15:34:50 18:38:56 Visit Tara, Y HEALTH 350.1.13.10 [facility] 4.2.7.2.686 [id number] [facility] 2019-02-23 2019-02-23 Office [facility] .840.114 [id number] [facility] 15:34:50 18:38:56 [facility] 350.1. 13.10 [place] [id number] [place] [address] Branch 2019-02-23 2019-02-23 Manager Med Surg [facility] UNIVERSIT [id number] [facility] 16:32:11 16:43:54 Visit Madelyn Rao Fatva Y HEALTH 350.1. 13.10 ity of CL[place]ICS [place] [id number] [facility] 316 [address] 2018-12-01 2018-12-01 Out[facility] 25 [id number] Common 10:52:00 10:52:00 [address] [place] [address] [facility] 2018-11-29 2018-11-29 [facility] 25 [id number] Common 14:45:00 14:45:00 t [place] [address] [facility] 2018-09-28 2018-09-28 Out[facility] 24 [id number] Common 10:43:00 10:43:[address] [facility] 2018-08-16 2018-08-16 [facility] 23 [id number] Common 12:06:00 12:06:[address] [facility] 2018-07-25 2018-07-25 Out[facility] 23 [id number] Common 10:56:00 10:56:[address] [facility] 2018-07-22 2018-07-22 Out[facility] 23 [id number] Common 01:11:00 01:11:[address] [facility] 2018-07-20 2018-07-20 [facility] [id number] Common 13:00:00 13:00:[address] [facility] 2018-07-19 2018-07-19 Out[facility] 23 [id number] Common 14:38:00 14:38:[address] [facility] 2018-07-15 2018-07-15 [facility] 23 [id number] Common 16:01:00 16:01:[address] [facility] 2018-07-14 2018-07-14 Out[facility] 23 [id number] Common 15:35:00 15:35:[address] [facility] 2018-04-21 2018-04-21 Outpatient Chely Smart 21 [id number] Common 09:04:00 09:04:00 [facility] [address] [facility] 2018-04-20 2018-04-20 Outpatient Chely Smart 21 [id number] Common 22:17:00 22:17:00 [facility] [address] [facility] 2018-04-20 2018-04-20 Outpatient Chely Smart 15 [id number] Common 14:30:00 14:30:00 [facility] Spir [facility] Results Test Description Test Time Test Comments Results Result Comments Source URINALYSIS 2021-04-01 03:04:09 Test Item Value Reference Range Interpretation Comme nts APPEARANCE (test code = Clear Clear 9769912633) COLOR (test code = 2079468602) Yellow Yellow PH (test code = 2055296989) 4.8-8.0 SP GRAVITY (test code = 1.003-1.030 1772805725) GLU U QUAL (test code = Normal Normal 5698784115) BLOOD (test code = 1073647887) Negative Negative Interference from ascorbic acid may cause false negative results. KETONES (test code = Negative Negative 5025186013) PROTEIN (test code = 2887-8) Negative Negative UROBILIN (test code = 2.0 mg/dL Normal A 7336027030) BILIRUBIN (test code = Negative Negative 5605616484) NITRITE (test code = Negative Negative 5413925173) LEUK MIGDALIA (test code = Negative Negative 0713446682) RBC/HPF (test code = See_Comment H [Autom ated message] The 5222059238) system which ge nerated this result transmit elaine reference range: 0 - 3 HP F. The reference range was not used to interpret th is result as normal/abnormal . WBC/HPF (test code = See_Comment [Autom ated message] The 5805821096) system which ge nerated this result transmit elaine reference range: 0 - 5 HP F. The reference range was not used to interpret th is result as normal/abnormal . BACTERIA (test code = Few Negative A 7420744588) MUCOUS (test code = 7782670228) Slight Negative LPF A SQ EPITH (test code = HPF 4392245956) HYAL CAST (test code = See_Comment H [Aut omated message] The 8167092638) system which ge nerated this result transmit elaine reference range: <=2 LPF. The reference range was not u sed to interpret this result as normal/abnormal . GRAN CASTS (test code = See_Comment H [Au tomated message] The 2328787653) system which [employer] nerated this result transmit elaine reference range: <=1 LPF. The reference range was not u sed to interpret this result as normal/abnormal . Lab Interpretation (test code = Abnormal 65490-4) [facility] Test Item Value Reference Range Interpretation Comments APPEARANCE (test code = Clear Clear 4062110949) COLOR (test code = Yellow Yellow 4369458566) PH (test code = 4.8-8.0 7680896804) SP GRAVITY (test code = 1.003-1.030 6020057379) GLU U QUAL (test code = Normal Normal 7073007019) BLOOD (test code = Negative Negative 1504181288) KETONES (test code = Negative Negative 5202332135) PROTEIN (test code = Negative Negative 2887-8) UROBILIN (test code = 2.0 mg/dL Normal A 2554289112) BILIRUBIN (test code = Negative Negative 4192696616) NITRITE (test code = Negative Negative 5386735425) LEUK MIGDALIA (test code = Negative Negative 8793762919) RBC/HPF (test code = See_Comment H [Autom ated message] 6931958183) The system [employer] generated this result transmit elaine reference range : 0 - 3 HPF. The refe rence range was not u sed to interpret th is result as normal/abnormal . WBC/HPF (test code = See_Comment [Autom ated message] 4967361359) The system [employer] generated this result transmit elaine reference range : 0 - 5 HPF. The refe rence range was not u sed to interpret th is result as normal/abnormal . BACTERIA (test code = Few Negative A 0457303268) MUCOUS (test code = Slight Negative LPF A 7500844690) SQ EPITH (test code = HPF 8766693795) HYAL CAST (test code = See_Comment H [Aut omated message] 2274597362) The system [employer] generated this result transmit elaine reference range : <=2 LPF. The refere nce range was not u sed to interpret th is result as normal/abnormal . KIRAN VALENZUELA (test code = See_Comment H [Au tomated message] 9465532727) The system [employer] generated this result transmit elaine reference range : <=1 LPF. The refere nce range was not u sed to interpret th is result as normal/abnormal . Lab Interpretation (test Abnormal code = 79026-6) [facility] [id number] 02:31:36 Test Item Value Reference Interpretation Comments Range TROPONIN I (test 0.003 ng/mL See_Comment [Automated code = 0671027644) message] The system which generated this result [...] biotin. Lab Interpretation Normal (test code = 70834-2) [facility] [id number] 02:31:36 Test Item Value Reference Range Interpretation Comments TROPONIN I (test code = 0.003 ng/mL See_Comment [Au tomated 6203851860) message] The sy stem which generated this result transmitted reference range : <=0.034. The reference range was not used to interpret this result as normal/abnormal . ANU (test code = ANU) Lab Interpretation Normal (test code = 83453-3) [facility] [id number] 02:28:37 Test Item Value Reference Range Interpretation Comments NT-proBNP (test code 231 pg/mL See_Comment H [Autom ated = 5361938022) message] The system which generated this result transmitted reference range : <=125. The reference range was not used to interpret this result as normal/abnormal . ANU (test code = ANU) Biotin has been reported to cause a negative bias, interpret results relative to patient's use of biotin. Lab Interpretation Abnormal (test code = 19943-2) [facility] [id number] 02:28:37 Test Item Value Reference Range Interpretation Comments NT-proBNP (test code = 231 pg/mL See_Comment H [Aut omated message] 7072311977) The system [employer] generated this result transmit elaine reference range : <=125. The refe rence range was not u sed to interpret th is result as normal/abnormal . ANU (test code = ANU) Lab Interpretation (test Abnormal code = 88733-9) [facility] [id number] 02:26:55 Test Item Value Reference Range Interpretation Comments APTT Patient (test See_Comment [Automat ed code = 3173-2) message] The system which generated this result transmitted reference range : 23 - 38 Seconds . The reference range was not used to interpr et this result as normal/abnormal . ANU (test code = ANU) The [facility] patient population mean normal value for aPTT is 30 seconds. Lab Interpretation Normal (test code = 59927-4) [facility] [id number] 02:26:55 Test Item Value Reference Range Interpretation Comments APTT Patient (test code = See_Comment [ Automated message] 3173-2) The system [employer] generated this result transmitted ref erence range: 23 - 38 Seconds. The re ference range was not u sed to interpret this result as normal/abnor mal. ANU (test code = ANU) Lab Interpretation (test Normal code = 45074-3) [facility] / [id number] 02:24:54 Test Item Value Reference Range Interpretation Comments PROTIME PATIENT (test See_Comment [Auto mated message] code = 5964-2) The system [employer] generated this result transmitted ref erence range: 12.0 - 1 4.7 Seconds. The re ference range was not u sed to interpret this result as normal/abnor mal. INR (test code = 6301-6) Nor mal INR <1.1; Warfarin Therap eutic range 2.0 to 3. 0 or 2.5 to 3.5, dep ending upon the indica tions. Lab Interpretation (test Normal code = 63147-5) [facility] / [id number] 02:24:54 Test Item Value Reference Range Interpretation Comments PROTIME PATIENT (test See_Comment [Auto mated message] code = 5964-2) The system [employer] generated this result transmitted ref erence range: 12.0 - 1 4.7 Seconds. The re ference range was not u sed to interpret this result as normal/abnor mal. INR (test code = 6301-6) Lab Interpretation (test Normal code = 78146-5) [facility]OLIC PANEL (40950)2021-04-01 02:20:56 Test Item Value Reference Range Interpretation Comments NA (test code = 139 mmol/L 135-145 0253142820) K (test code = 3.6 mmol/L 3.5-5.0 3564128238) CL (test code = 98 mmol/L 98-108 5037413954) CO2 TOTAL (test code = 29 mmol/L 23-31 6153086501) AGAP (test code = 2-16 8072995750) BUN (test code = 17 mg/dL 7-23 9309631842) GLUCOSE (test code = 241 mg/dL 70-110 H 9557340940) CREATININE (test code = 0.98 mg/dL 0.60-1.25 5778956272) TOTAL BILI (test code = 0.5 mg/dL 0.1-1.2 1925377599) CALCIUM (test code = 9.5 mg/dL 8.6-10.6 7185851468) T PROTEIN (test code = 8.9 g/dL 6.3-8.2 H 5460304726) ALBUMIN (test code = 4.6 g/dL 3.5-5.0 7498934290) ALK PHOS (test code = 124 U/L 34-122 H 2015600742) ALTv (test code = 26 U/L 5-50 1742-6) AST(SGOT) (test code = 39 U/L 13-40 8140067793) eGFR (test code = mL/min/1.73m2 6685768966) ANU (test code = ANU) Association of [...] tests). Lab Interpretation Abnormal (test code = 47287-8) [facility]. METABOLIC PANEL (23887)2021-04-01 02:20:56 Test Item Value Reference Range Interpretation Comments NA (test code = 0377468043) 139 mmol/L 135-145 K (test code = 1517265066) 3.6 mmol/L 3.5-5.0 CL (test code = 0582853139) 98 mmol/L 98-108 CO2 TOTAL (test code = 8104439887) 29 mmol/L 23-31 AGAP (test code = 6338591236) 2-16 BUN (test code = 3945427563) 17 mg/dL 7-23 GLUCOSE (test code = 8932194421) 241 mg/dL 70-110 H CREATININE (test code = 0.98 mg/dL 0.60-1.25 8893918313) TOTAL BILI (test code = 0.5 mg/dL 0.1-1.5 9678401246) CALCIUM (test code = 6445579059) 9.5 mg/dL 8.6-10.6 T PROTEIN (test code = 5029852461) 8.9 g/dL 6.3-8.2 H ALBUMIN (test code = 7894046873) 4.6 g/dL 3.5-5.0 ALK PHOS (test code = 6121872925) 124 U/L 34-122 H ALTv (test code = 1742-6) 26 U/L 5-50 AST(SGOT) (test code = 6794179252) 39 U/L 13-40 eGFR (test code = 3385963920) mL/min/1.73m2 ANU (test code = ANU) Lab Interpretation (test code = Abnormal 26584-4) [facility] 02:20:14 Test Item Value Reference Range Interpretation Comments LIPASE (test code = 8994155538) 74 U/L 0-220 Lab Interpretation (test code = Normal 09330-3) [facility]ID NOW RAPID TESTING)2021-04-01 02:20:14 Test Item Value Reference Range Interpretation Comments SARS-CoV-2 Rapid ID NOW Not Detected Not Detected (test code = 99936-0) ANU (test code = ANU) ID NOW COVID-19 Assay is an isothermal nucleic acid amplification test intended for the qualitative detection of nucleic acid from SARS-CoV-2 viral RNA in nasopharyngeal (PARTS WASHER) specimens. It is used under Emergency Use [...] indicated. Lab Interpretation Normal (test code = 68576-4) [facility] 02:20:14 Test Item Value Reference Range Interpretation Comments LIPASE (test code = 6402470519) 74 U/L 0-220 Lab Interpretation (test code = Normal 77515-8) [facility] NOW RAPID TESTING)2021-04-01 02:20:14 Test Item Value Reference Range Interpretation Comments SARS-CoV-2 Rapid ID NOW (test Not Detected Not Detected code = 09751-5) ANU (test code = ANU) Lab Interpretation (test code = Normal 16967-3) [facility] [id number] 02:13:29No acute findings. HISTORY:Mental status change, unknown [...] extracranial tissues demonstrate no acute findings.IMPRESSIONNo acute findings.[facility] WO [id number] 02:13:29No acute findings. HISTORY:Mental status change, unknown [...] extracranial tissues demonstrate no acute findings.IMPRESSIONNo acute findings.[facility] WITH [id number] 02:05:52 Test Item Value Reference Range Interpretation [...] RDW-SD (test code = 44.7 fL 38.5-51.6 26091-0) RDW-CV (test code = 13.2 % 12.1-15.4 788-0) PLT (test code = See_Comment [Automated 777-3) message] The sy stem which generated this result transmitted reference range : 150 - 328 10*3/ ?L. The reference r dustin was not used to interpret this result as normal/abnormal . MPV (test code = 10.3 fL 9.8-13.0 85066-9) NRBC/100 WBC (test See_Comment [Automat ed code = 2178424143) message] The system which generated this result transmitted reference range : 0.0 - 10.0 /100 WBCs. The refer ence range was not u sed to interpret th is result as normal/abnormal . NRBC x10^3 (test code <0.01 See_Comment [Auto mated = 5005594022) message] The s ystem which generated this result transmitted reference range : 10*3/?L. The reference range was not used to interpret this result as normal/abnormal . GRAN MAT (NEUT) % 54.9 % (test code = 770-8) IMM GRAN % (test code 0.20 % = 2975396908) LYMPH % (test code = 34.3 % 736-9) MONO % (test code = 7.0 % 5905-5) EOS % (test code = 3.0 % 713-8) BASO % (test code = 0.6 % 706-2) GRAN MAT x10^3(ANC) 4.59 10*3/uL 1.99-6.95 (test code = 1572339798) IMM GRAN x10^3 (test <0.03 0.00-0.06 code = 6928610520) LYMPH x10^3 (test code 2.87 10*3/uL 1.09-3.23 = 731-0) MONO x10^3 (test code 0.59 10*3/uL 0.36-1.02 = 742-7) EOS x10^3 (test code = 0.25 10*3/uL 0.06-0.53 711-2) BASO x10^3 (test code 0.05 10*3/uL 0.01-0.09 = 704-7) Lab Interpretation Abnormal (test code = 14535-0) [facility] WITH [id number] 02:05:52 Test Item Value Reference Range Interpretation Comments WBC (test code = See_Comment [Automated 9890-2) message] The sy stem which generated this result transmitted reference range : 4.20 - 10.70 10*3/?L. The reference range was not used to interpret this result as normal/abnormal . RBC (test code = See_Comment L [Automated 459-8) message] The sy stem which generated this [...] RDW-SD (test code = 44.7 fL 38.5-51.6 80161-0) RDW-CV (test code = 13.2 % 12.1-15.4 788-0) PLT (test code = See_Comment [Automated 777-3) message] The sy stem which generated this result transmitted reference range : 150 - 328 10*3/ ?L. The reference r dustin was not used to interpret this result as normal/abnormal . MPV (test code = 10.3 fL 9.8-13.0 67893-5) NRBC/100 WBC (test See_Comment [Automat ed code = 2424175445) message] The system which generated this result transmitted reference range : 0.0 - 10.0 /100 WBCs. The refer ence range was not u sed to interpret th is result as normal/abnormal . NRBC x10^3 (test code <0.01 See_Comment [Auto mated = 9950261536) message] The s ystem which generated this result transmitted reference range : 10*3/?L. The reference range was not used to interpret this result as normal/abnormal . GRAN MAT (NEUT) % 54.9 % (test code = 770-8) IMM GRAN % (test code 0.20 % = 7699199129) LYMPH % (test code = 34.3 % 736-9) MONO % (test code = 7.0 % 5905-5) EOS % (test code = 3.0 % 713-8) BASO % (test code = 0.6 % 706-2) GRAN MAT x10^3(ANC) 4.59 10*3/uL 1.99-6.95 (test code = 6206057039) IMM GRAN x10^3 (test <0.03 0.00-0.06 code = 5949203971) LYMPH x10^3 (test code 2.87 10*3/uL 1.09-3.23 = 731-0) MONO x10^3 (test code 0.59 10*3/uL 0.36-1.02 = 742-7) EOS x10^3 (test code = 0.25 10*3/uL 0.06-0.53 711-2) BASO x10^3 (test code 0.05 10*3/uL 0.01-0.09 = 704-7) Lab Interpretation Abnormal (test code = 34067-8) [facility] + LACTIC [id number] 01:48:54 Test Item Value Reference Range Interpretation Comments PH (test code = 7.32-7.42 0045994355) PCO2 TAJ (test code = See_Comment H [Auto mated 4232854296) message] The sy stem which generated this result transmitted reference range : 41 - 51 mmHg. The reference range was not used to interpret this result as normal/abnormal . PO2 TAJ (test code = See_Comment [Autom ated 5432938099) message] The sy stem which generated this result transmitted reference range : 25 - 40 mmHg. The reference range was not used to interpret this result as normal/abnormal . HCO3 TAJ (test code = See_Comment [Auto mated 0762719448) message] The sy stem which generated this result transmitted reference range : 24 - 28 mEq/L. The reference range was not used to interpret this result as normal/abnormal . AC VBE(BEAKER) (test mEq/L code = 0869297009) THB TAJ (test code = 11.2 g/dL 13.5-18.0 L 4543527087) %O2HB TAJ (test code = 51.0 % 52.0-63.0 L 3689765737) %COHB TAJ (test code = 1.1 % 0.0-1.5 4696002629) %METHB TAJ (test code = 0.3 % 0.4-1.5 L 3197451510) VOL%O2 TAJ (test code = 8.0 % 6.0-12.0 8953933736) NA (test code = 138 mmol/L 135-145 4966972416) K+ (test code = 3.7 mmol/L 3.5-5.0 9802298857) AC CA IONZ (test code = 4.60 mg/dL 4.50-5.30 7773798950) GLUCOSE (test code = 236 mg/dL 70-110 H 0614773364) LACTIC ACID (test code 2.61 mmol/L 0.50-2.20 H = 0523781352) Lab Interpretation Abnormal (test code = 32067-0) [facility] [id number] 01:48:54 Test Item Value Reference Range Interpretation Comments PH (test code = 7.32-7.42 2668309461) PCO2 TAJ (test code = See_Comment H [Auto mated 9579242625) message] The sy stem which generated this result transmitted reference range : 41 - 51 mmHg. The reference range was not used to interpret this result as normal/abnormal . PO2 TAJ (test code = See_Comment [Autom ated 8708412502) message] The sy stem which generated this result transmitted reference range : 25 - 40 mmHg. The reference range was not used to interpret this result as normal/abnormal . HCO3 TAJ (test code = See_Comment [Auto mated 0230275693) message] The sy stem which generated this result transmitted reference range : 24 - 28 mEq/L. The reference range was not used to interpret this result as normal/abnormal . AC VBE(BEAKER) (test mEq/L code = 5209206592) THB TAJ (test code = 11.2 g/dL 13.5-18.0 L 0657259156) %O2HB TAJ (test code = 51.0 % 52.0-63.0 L 7211164146) %COHB TAJ (test code = 1.1 % 0.0-1.5 3523131601) %METHB TAJ (test code = 0.3 % 0.4-1.5 L 4207207697) VOL%O2 TAJ (test code = 8.0 % 6.0-12.0 2857529376) NA (test code = 138 mmol/L 135-145 4052684754) K+ (test code = 3.7 mmol/L 3.5-5.0 8938891676) AC CA IONZ (test code = 4.60 mg/dL 4.50-5.30 8683800108) GLUCOSE (test code = 236 mg/dL 70-110 H 2505473372) LACTIC ACID (test code 2.61 mmol/L 0.50-2.20 H = 5552271914) Lab Interpretation Abnormal (test code = 84184-2) [facility] GLUCOSE (AUTOMATED)2021-02-26 22:12:16 Test Item Value Reference Range Interpretation Comments POCT GLU (test code = 7361260397) 187 mg/dL 70-110 H Lab Interpretation (test code = Abnormal 02032-9) [facility] GLUCOSE (AUTOMATED)2021-02-26 17:17:18 Test Item Value Reference Range Interpretation Comments POCT GLU (test code = 8195017171) 189 mg/dL 70-110 H Lab Interpretation (test code = Abnormal 64126-8) [facility] GLUCOSE (AUTOMATED)2021-02-26 13:53:52 Test Item Value Reference Range Interpretation Comments POCT GLU (test code = 4678641062) 132 mg/dL 70-110 H Lab Interpretation (test code = Abnormal 27155-0) [facility] METABOLIC PANEL (NA, K, CL, CO2, GLUCOSE, BUN, CREATININE, CA)2021-02-26 11:27:38 Test Item Value Reference Range Interpretation Comments NA (test code = 142 mmol/L 135-145 8659690951) K (test code = 4.0 mmol/L 3.5-5.0 0160008100) CL (test code = 106 mmol/L 98-108 1539644104) CO2 TOTAL (test code = 25 mmol/L 23-31 0765413370) AGAP (test code = 2-16 3754661548) BUN (test code = 13 mg/dL 7-23 9261066349) GLUCOSE (test code = 129 mg/dL 70-110 H 3239150082) CREATININE (test code = 0.97 mg/dL 0.60-1.25 6821843420) CALCIUM (test code = 9.3 mg/dL 8.6-10.6 1152063376) eGFR (test code = mL/min/1.73m2 5216551322) ANU (test code = ANU) Association of [...] tests). Lab Interpretation Abnormal (test code = 14857-0) [facility] WITH [id number] 10:55:37 Test Item Value Reference Range Interpretation Comments WBC (test code = See_Comment [Automated 6784-2) message] The sy stem which generated this result transmitted reference range : 4.20 - 10.70 10*3/?L. The reference range was not used to interpret this result as normal/abnormal . RBC (test code = See_Comment L [Automated 316-2) message] The sy stem which generated this [...] RDW-SD (test code = 42.0 fL 38.5-51.6 32187-0) RDW-CV (test code = 12.7 % 12.1-15.4 788-0) PLT (test code = See_Comment [Automated 777-3) message] The sy stem which generated this result transmitted reference range : 150 - 328 10*3/ ?L. The reference r dustin was not used to interpret this result as normal/abnormal . MPV (test code = 9.5 fL 9.8-13.0 L 01144-1) NRBC/100 WBC (test See_Comment [Automat ed code = 0283170005) message] The system which generated this result transmitted reference range : 0.0 - 10.0 /100 WBCs. The refer ence range was not u sed to interpret th is result as normal/abnormal . NRBC x10^3 (test code <0.01 See_Comment [Auto mated = 8141586158) message] The s ystem which generated this result transmitted reference range : 10*3/?L. The reference range was not used to interpret this result as normal/abnormal . GRAN MAT (NEUT) % 59.7 % (test code = 770-8) IMM GRAN % (test code 0.50 % = 2848983762) LYMPH % (test code = 30.1 % 736-9) MONO % (test code = 6.8 % 5905-5) EOS % (test code = 2.3 % 713-8) BASO % (test code = 0.6 % 706-2) GRAN MAT x10^3(ANC) 5.13 10*3/uL 1.99-6.95 (test code = 0889569594) IMM GRAN x10^3 (test 0.04 10*3/uL 0.00-0.06 code = 2497237451) LYMPH x10^3 (test code 2.58 10*3/uL 1.09-3.23 = 731-0) MONO x10^3 (test code 0.58 10*3/uL 0.36-1.02 = 742-7) EOS x10^3 (test code = 0.20 10*3/uL 0.06-0.53 711-2) BASO x10^3 (test code 0.05 10*3/uL 0.01-0.09 = 704-7) Lab Interpretation Abnormal (test code = 80620-4) [facility] GLUCOSE (AUTOMATED)2021-02-26 02:24:21 Test Item Value Reference Range Interpretation Comments POCT GLU (test code = 7676241716) 226 mg/dL 70-110 H Lab Interpretation (test code = Abnormal 31373-6) [facility] Culture - Peripheral # [id number] 02:01:55 Test Item Value Reference Range Interpretation Comments Blood Culture-Aerobic No organisms No growth Previo us (test code = 79114-6) isolated prelim inary verified result was Culture [...] Culture-Anaerobic isolated preliminar y (test code = 28266-3) verifi ed result was Culture In Progress [...] CDT Lab Interpretation Normal (test code = 65910-9) [facility] Culture - Peripheral # [id number] 02:01:55 Test Item Value Reference Range Interpretation Comments Blood Culture-Aerobic No organisms No growth Previo us (test code = 73810-0) isolated prelim inary verified result was Culture [...] Culture-Anaerobic isolated preliminar y (test code = 38493-3) verifi ed result was Culture In Progress [...] CDT Lab Interpretation Normal (test code = 65109-2) [facility] GLUCOSE (AUTOMATED)2021-02-25 21:54:18 Test Item Value Reference Range Interpretation Comments POCT GLU (test code = 7179754478) 254 mg/dL 70-110 H Lab Interpretation (test code = Abnormal 77536-4) [facility] GLUCOSE (AUTOMATED)2021-02-25 16:06:47 Test Item Value Reference Range Interpretation Comments POCT GLU (test code = 2586435378) 178 mg/dL 70-110 H Lab Interpretation (test code = Abnormal 21875-1) [facility] GLUCOSE (AUTOMATED)2021-02-25 12:41:08 Test Item Value Reference Range Interpretation Comments POCT GLU (test code = 3360799667) 141 mg/dL 70-110 H Lab Interpretation (test code = Abnormal 18521-5) [facility] (NA, K, CL, CO2, GLUCOSE, BUN, CREATININE, CA)2021-02-25 09:30:31 Test Item Value Reference Range Interpretation Comments NA (test code = 140 mmol/L 135-145 4751451292) K (test code = 3.7 mmol/L 3.5-5.0 6282854513) CL (test code = 104 mmol/L 98-108 1231574048) CO2 TOTAL (test code = 27 mmol/L 23-31 5728565331) AGAP (test code = 2-16 4360266512) BUN (test code = 9 mg/dL 7-23 8645216992) GLUCOSE (test code = 143 mg/dL 70-110 H 5429789342) CREATININE (test code = 0.69 mg/dL 0.60-1.25 5974155879) CALCIUM (test code = 9.4 mg/dL 8.6-10.6 1763979485) eGFR (test code = mL/min/1.73m2 6036957028) ANU (test code = ANU) Association of [...] tests). Lab Interpretation Abnormal (test code = 59167-4) [facility] WITH [id number] 09:12:53 Test Item Value Reference Range Interpretation [...] RDW-SD (test code = 42.1 fL 38.5-51.6 03393-1) RDW-CV (test code = 12.7 % 12.1-15.4 788-0) PLT (test code = See_Comment L [Automated 777-3) message] The sy stem which generated this result transmitted reference range : 150 - 328 10*3/ ?L. The reference r dustin was not used to interpret this result as normal/abnormal . MPV (test code = 10.3 fL 9.8-13.0 84734-0) NRBC/100 WBC (test See_Comment [Automat ed code = 8430955500) message] The system which generated this result transmitted reference range : 0.0 - 10.0 /100 WBCs. The refer ence range was not u sed to interpret th is result as normal/abnormal . NRBC x10^3 (test code <0.01 See_Comment [Auto mated = 0703661085) message] The s ystem which generated this result transmitted reference range : 10*3/?L. The reference range was not used to interpret this result as normal/abnormal . GRAN MAT (NEUT) % 48.6 % (test code = 770-8) IMM GRAN % (test code 0.30 % = 0298755132) LYMPH % (test code = 38.6 % 736-9) MONO % (test code = 9.2 % 5905-5) EOS % (test code = 2.7 % 713-8) BASO % (test code = 0.6 % 706-2) GRAN MAT x10^3(ANC) 3.23 10*3/uL 1.99-6.95 (test code = 9876355159) IMM GRAN x10^3 (test <0.03 0.00-0.06 code = 6913511477) LYMPH x10^3 (test code 2.56 10*3/uL 1.09-3.23 = 731-0) MONO x10^3 (test code 0.61 10*3/uL 0.36-1.02 = 742-7) EOS x10^3 (test code = 0.18 10*3/uL 0.06-0.53 711-2) BASO x10^3 (test code 0.04 10*3/uL 0.01-0.09 = 704-7) Lab Interpretation Abnormal (test code = 47307-4) [facility] GLUCOSE (AUTOMATED)2021-02-25 02:15:28 Test Item Value Reference Range Interpretation Comments POCT GLU (test code = 204 mg/dL 70-110 H Notifi ed Provider 4252823221) Lab Interpretation (test Abnormal code = 08692-3) [facility]-25 00:03:48 Test Item Value Reference Range Interpretation Comments HGB A1C (test code = 7.8 % 4.0-5.7 H 4548-4) ANU (test code = ANU) Reference RangesNormal: <5.7%Prediabetes: 5.7 - 6.4%Diabetes: > 6.5% Lab Interpretation (test Abnormal code = 32647-2) [facility] GLUCOSE (AUTOMATED)2021-02-24 21:53:33 Test Item Value Reference Range Interpretation Comments POCT GLU (test code = 7026879940) 170 mg/dL 70-110 H Lab Interpretation (test code = Abnormal 25019-6) [facility] GLUCOSE (AUTOMATED)2021-02-24 16:39:31 Test Item Value Reference Range Interpretation Comments POCT GLU (test code = 5227119176) 147 mg/dL 70-110 H Lab Interpretation (test code = Abnormal 59220-1) [facility]21-[facility]-24 12:37:30 Test Item Value Reference Range Interpretation Comments POCT GLU (test code = 8391470724) 141 mg/dL 70-110 H Lab Interpretation (test code = Abnormal 40229-5) [facility] METABOLIC PANEL (NA, K, CL, CO2, GLUCOSE, BUN, CREATININE, CA)2021-02-24 09:52:22 Test Item Value Reference Range Interpretation Comments NA (test code = 141 mmol/L 135-145 8978805795) K (test code = 4.3 mmol/L 3.5-5.0 9314176668) CL (test code = 107 mmol/L 98-108 0398907772) CO2 TOTAL (test code = 26 mmol/L 23-31 1652965951) AGAP (test code = 2-16 0578165660) BUN (test code = 10 mg/dL 7-23 0811943366) GLUCOSE (test code = 145 mg/dL 70-110 H 1971906696) CREATININE (test code = 0.72 mg/dL 0.60-1.25 9047664395) CALCIUM (test code = 9.3 mg/dL 8.6-10.6 3540800193) eGFR (test code = mL/min/1.73m2 1209793496) ANU (test code = ANU) Association of [...] tests). Lab Interpretation Abnormal (test code = 81970-5) [facility] WITH [id number] 09:19:21 Test Item Value Reference Range Interpretation Comments WBC (test code = See_Comment [Automated 3290-2) message] The sy stem which generated this [...] RDW-SD (test code = 42.5 fL 38.5-51.6 00510-6) RDW-CV (test code = 12.8 % 12.1-15.4 788-0) PLT (test code = See_Comment L [Automated 777-3) message] The sy stem which generated this result transmitted reference range : 150 - 328 10*3/ ?L. The reference r dustin was not used to interpret this result as normal/abnormal . MPV (test code = 9.9 fL 9.8-13.0 88620-0) NRBC/100 WBC (test See_Comment [Automat ed code = 8190466677) message] The system which generated this result transmitted reference range : 0.0 - 10.0 /100 WBCs. The refer ence range was not u sed to interpret th is result as normal/abnormal . NRBC x10^3 (test code <0.01 See_Comment [Auto mated = 0146422119) message] The s ystem which generated this result transmitted reference range : 10*3/?L. The reference range was not used to interpret this result as normal/abnormal . GRAN MAT (NEUT) % 47.7 % (test code = 770-8) IMM GRAN % (test code 0.20 % = 2327478621) LYMPH % (test code = 39.0 % 736-9) MONO % (test code = 10.3 % 5905-5) EOS % (test code = 2.3 % 713-8) BASO % (test code = 0.5 % 706-2) GRAN MAT x10^3(ANC) 2.96 10*3/uL 1.99-6.95 (test code = 0128131100) IMM GRAN x10^3 (test <0.03 0.00-0.06 code = 1822447663) LYMPH x10^3 (test code 2.42 10*3/uL 1.09-3.23 = 731-0) MONO x10^3 (test code 0.64 10*3/uL 0.36-1.02 = 742-7) EOS x10^3 (test code = 0.14 10*3/uL 0.06-0.53 711-2) BASO x10^3 (test code 0.03 10*3/uL 0.01-0.09 = 704-7) Lab Interpretation Abnormal (test code = 04025-6) [facility] GLUCOSE (AUTOMATED)2021-02-24 01:42:01 Test Item Value Reference Range Interpretation Comments POCT GLU (test code = 1815767912) 178 mg/dL 70-110 H Lab Interpretation (test code = Abnormal 63490-4) [facility] GLUCOSE (AUTOMATED)2021-02-23 22:46:27 Test Item Value Reference Range Interpretation Comments POCT GLU (test code = 4222069632) 156 mg/dL 70-110 H Lab Interpretation (test code = Abnormal 81697-8) [facility] GLUCOSE (AUTOMATED)2021-02-23 16:57:14 Test Item Value Reference Range Interpretation Comments POCT GLU (test code = 7959018295) 185 mg/dL 70-110 H Lab Interpretation (test code = Abnormal 39494-1) [facility] GLUCOSE (AUTOMATED)2021-02-23 14:09:23 Test Item Value Reference Range Interpretation Comments POCT GLU (test code = 1985607458) 180 mg/dL 70-110 H Lab Interpretation (test code = Abnormal 52555-6) [facility] METABOLIC PANEL (NA, K, CL, CO2, GLUCOSE, BUN, CREATININE, CA)2021-02-23 09:26:37 Test Item Value Reference Range Interpretation Comments NA (test code = 141 mmol/L 135-145 3879631996) K (test code = 3.9 mmol/L 3.5-5.0 1350421837) CL (test code = 111 mmol/L 98-108 H 1340221221) CO2 TOTAL (test code = 23 mmol/L 23-31 4839655414) AGAP (test code = 2-16 4569868020) BUN (test code = 12 mg/dL 7-23 6423424684) GLUCOSE (test code = 164 mg/dL 70-110 H 1788249791) CREATININE (test code = 0.78 mg/dL 0.60-1.25 0177485762) CALCIUM (test code = 9.1 mg/dL 8.6-10.6 2479719852) eGFR (test code = mL/min/1.73m2 0925509079) ANU (test code = ANU) Association of [...] tests). Lab Interpretation Abnormal (test code = 76840-6) [facility] WITH [id number] 09:04:37 Test Item Value Reference Range Interpretation Comments WBC (test code = See_Comment [Automated 0090-2) message] The sy stem which generated this result transmitted reference range : 4.20 - 10.70 10*3/?L. The reference range was not used to interpret this result as normal/abnormal . RBC (test code = See_Comment L [Automated 919-8) message] The sy stem which generated this [...] RDW-SD (test code = 43.5 fL 38.5-51.6 93251-4) RDW-CV (test code = 12.8 % 12.1-15.4 788-0) PLT (test code = See_Comment L [Automated 777-3) message] The sy stem which generated this result transmitted reference range : 150 - 328 10*3/ ?L. The reference r dustin was not used to interpret this result as normal/abnormal . MPV (test code = 10.1 fL 9.8-13.0 82143-9) NRBC/100 WBC (test See_Comment [Automat ed code = 1586839202) message] The system which generated this result transmitted reference range : 0.0 - 10.0 /100 WBCs. The refer ence range was not u sed to interpret th is result as normal/abnormal . NRBC x10^3 (test code <0.01 See_Comment [Auto mated = 7153488086) message] The s ystem which generated this result transmitted reference range : 10*3/?L. The reference range was not used to interpret this result as normal/abnormal . GRAN MAT (NEUT) % 57.5 % (test code = 770-8) IMM GRAN % (test code 0.30 % = 4855231309) LYMPH % (test code = 31.0 % 736-9) MONO % (test code = 8.6 % 5905-5) EOS % (test code = 2.3 % 713-8) BASO % (test code = 0.3 % 706-2) GRAN MAT x10^3(ANC) 3.73 10*3/uL 1.99-6.95 (test code = 4604317292) IMM GRAN x10^3 (test <0.03 0.00-0.06 code = 2148403188) LYMPH x10^3 (test code 2.01 10*3/uL 1.09-3.23 = 731-0) MONO x10^3 (test code 0.56 10*3/uL 0.36-1.02 = 742-7) EOS x10^3 (test code = 0.15 10*3/uL 0.06-0.53 711-2) BASO x10^3 (test code <0.03 0.01-0.09 = 704-7) Lab Interpretation Abnormal (test code = 63801-4) [facility] GLUCOSE (AUTOMATED)2021-02-23 02:29:54 Test Item Value Reference Range Interpretation Comments POCT GLU (test code = 9327212152) 155 mg/dL 70-110 H Lab Interpretation (test code = Abnormal 81842-9) [facility] GLUCOSE (AUTOMATED)2021-02-22 22:51:30 Test Item Value Reference Range Interpretation Comments POCT GLU (test code = 6310360363) 176 mg/dL 70-110 H Lab Interpretation (test code = Abnormal 58113-8) [facility] GLUCOSE (AUTOMATED)2021-02-22 17:09:21 Test Item Value Reference Range Interpretation Comments POCT GLU (test code = 2602040246) 194 mg/dL 70-110 H Lab Interpretation (test code = Abnormal 00244-0) [facility] METABOLIC PANEL (NA, K, CL, CO2, GLUCOSE, BUN, CREATININE, CA)2021-02-22 11:26:26 Test Item Value Reference Range Interpretation Comments NA (test code = 136 mmol/L 135-145 7660895770) K (test code = 3.9 mmol/L 3.5-5.0 0372939896) CL (test code = 108 mmol/L 98-108 6356121773) CO2 TOTAL (test code 25 mmol/L 23-31 = 1528869497) AGAP (test code = 2-16 6531772124) BUN (test code = 14 mg/dL 7-23 5366309782) GLUCOSE (test code = 109 mg/dL 70-110 9230853520) CREATININE (test code 0.84 mg/dL 0.60-1.25 = 2931459727) CALCIUM (test code = 8.6 mg/dL 8.6-10.6 6435104534) eGFR (test code = mL/min/1.73m2 6999557202) ANU (test code = ANU) Association of [...] or urine or abnormalities in imaging tests). [facility] WITH [id number] 10:58:44 Test Item Value Reference Range Interpretation Comments WBC (test code = See_Comment [Automated 7590-2) message] The sy stem which generated this result transmitted reference range : 4.20 - 10.70 10*3/?L. The reference range was not used to interpret this result as normal/abnormal . RBC (test code = See_Comment L [Automated 899-8) message] The sy stem which generated this [...] RDW-SD (test code = 44.7 fL 38.5-51.6 02262-8) RDW-CV (test code = 12.8 % 12.1-15.4 788-0) PLT (test code = See_Comment L [Automated 777-3) message] The sy stem which generated this result transmitted reference range : 150 - 328 10*3/ ?L. The reference r dustin was not used to interpret this result as normal/abnormal . MPV (test code = 10.5 fL 9.8-13.0 19174-3) NRBC/100 WBC (test See_Comment [Automat ed code = 1100810327) message] The system which generated this result transmitted reference range : 0.0 - 10.0 /100 WBCs. The refer ence range was not u sed to interpret th is result as normal/abnormal . NRBC x10^3 (test code <0.01 See_Comment [Auto mated = 6481796975) message] The s ystem which generated this result transmitted reference range : 10*3/?L. The reference range was not used to interpret this result as normal/abnormal . GRAN MAT (NEUT) % 51.1 % (test code = 770-8) IMM GRAN % (test code 0.30 % = 1038839717) LYMPH % (test code = 36.1 % 736-9) MONO % (test code = 10.3 % 5905-5) EOS % (test code = 1.7 % 713-8) BASO % (test code = 0.5 % 706-2) GRAN MAT x10^3(ANC) 3.31 10*3/uL 1.99-6.95 (test code = 9755997582) IMM GRAN x10^3 (test <0.03 0.00-0.06 code = 0690218409) LYMPH x10^3 (test code 2.34 10*3/uL 1.09-3.23 = 731-0) MONO x10^3 (test code 0.67 10*3/uL 0.36-1.02 = 742-7) EOS x10^3 (test code = 0.11 10*3/uL 0.06-0.53 711-2) BASO x10^3 (test code 0.03 10*3/uL 0.01-0.09 = 704-7) Lab Interpretation Abnormal (test code = 77592-2) [facility] GLUCOSE (AUTOMATED)2021-02-22 02:14:29 Test Item Value Reference Range Interpretation Comments POCT GLU (test code = 0407987542) 151 mg/dL 70-110 H Lab Interpretation (test code = Abnormal 39629-2) [facility] GLUCOSE (AUTOMATED)2021-02-21 21:29:33 Test Item Value Reference Range Interpretation Comments POCT GLU (test code = 4952747617) 147 mg/dL 70-110 H Lab Interpretation (test code = Abnormal 92271-2) [facility] GLUCOSE (AUTOMATED)2021-02-21 17:20:58 Test Item Value Reference Range Interpretation Comments POCT GLU (test code = 1584916094) 155 mg/dL 70-110 H Lab Interpretation (test code = Abnormal 32096-8) [facility] GLUCOSE (AUTOMATED)2021-02-21 14:49:36 Test Item Value Reference Range Interpretation Comments POCT GLU (test code = 5639739030) 146 mg/dL 70-110 H Lab Interpretation (test code = Abnormal 24694-0) [facility] WITH [id number] 11:59:53 Test Item Value Reference Range Interpretation Comments WBC (test code = See_Comment [Automated 6690-2) message] The sy stem which generated this result transmitted reference range : 4.20 - 10.70 10*3/?L. The reference range was not used to interpret this result as normal/abnormal . RBC (test code = See_Comment L [Automated 569-8) message] The sy stem which generated this [...] RDW-SD (test code = 43.3 fL 38.5-51.6 99230-9) RDW-CV (test code = 12.8 % 12.1-15.4 788-0) PLT (test code = See_Comment L [Automated 777-3) message] The sy stem which generated this result transmitted reference range : 150 - 328 10*3/ ?L. The reference r dustin was not used to interpret this result as normal/abnormal . MPV (test code = 9.9 fL 9.8-13.0 76618-7) NRBC/100 WBC (test See_Comment [Automat ed code = 8215777121) message] The system which generated this result transmitted reference range : 0.0 - 10.0 /100 WBCs. The refer ence range was not u sed to interpret th is result as normal/abnormal . NRBC x10^3 (test code <0.01 See_Comment [Auto mated = 7118805553) message] The s ystem which generated this result transmitted reference range : 10*3/?L. The reference range was not used to interpret this result as normal/abnormal . GRAN MAT (NEUT) % 66.2 % (test code = 770-8) IMM GRAN % (test code 0.50 % = 4440033413) LYMPH % (test code = 20.0 % 736-9) MONO % (test code = 12.7 % 5905-5) EOS % (test code = 0.3 % 713-8) BASO % (test code = 0.3 % 706-2) GRAN MAT x10^3(ANC) 6.16 10*3/uL 1.99-6.95 (test code = 3900924420) IMM GRAN x10^3 (test 0.05 10*3/uL 0.00-0.06 code = 7965936052) LYMPH x10^3 (test code 1.86 10*3/uL 1.09-3.23 [...] . Lab Interpretation Abnormal (test code = 64375-4) [facility] [id number] 11:54:57 Test Item Value Reference Range Interpretation Comments PHOSPHORUS (test code = 7678441171) 3.7 mg/dL 2.5-5.0 Lab Interpretation (test code = Normal 70022-4) [facility] (NA, K, CL, CO2, GLUCOSE, BUN, CREATININE, CA)2021-02-21 11:54:56 Test Item Value Reference Range Interpretation Comments NA (test code = 136 mmol/L 135-145 0906824841) K (test code = 3.6 mmol/L 3.5-5.0 5748699810) CL (test code = 104 mmol/L 98-108 1900048928) CO2 TOTAL (test code = 23 mmol/L 23-31 4319212404) AGAP (test code = 2-16 1630353261) BUN (test code = 17 mg/dL 7-23 8554472856) GLUCOSE (test code = 176 mg/dL 70-110 H 7147884183) CREATININE (test code = 0.82 mg/dL 0.60-1.25 5936057987) CALCIUM (test code = 8.6 mg/dL 8.6-10.6 0255167173) eGFR (test code = mL/min/1.73m2 9392282106) ANU (test code = ANU) Association of [...] tests). Lab Interpretation Abnormal (test code = 04676-7) [facility] (ALB,T.PRO,BILI T,BU/BC,ALT,AST,ALK PHOS)2021-02-21 11:54:56 Test Item Value Reference Range Interpretation Comments TOTAL BILI (test code = 9007464671) 0.6 mg/dL 0.1-1.1 BILI UNCON (test code = 3836166717) 0.3 mg/dL 0.1-1.1 BILI CONJ (test code = 7033079620) 0.0 mg/dL 0.0-0.3 T PROTEIN (test code = 7884762334) 7.4 g/dL 6.3-8.2 ALBUMIN (test code = 5700628121) 3.7 g/dL 3.5-5.0 ALK PHOS (test code = 5936274487) 87 U/L 34-122 ALTv (test code = 1742-6) 15 U/L 5-50 AST(SGOT) (test code = 5438733014) 28 U/L 13-40 Lab Interpretation (test code = Normal 86767-5) [facility] [id number] 11:54:56 Test Item Value Reference Range Interpretation Comments MAGNESIUM (test code = 4366638643) 1.5 mg/dL 1.7-2.4 L Lab Interpretation (test code = Abnormal 22084-4) [facility] HospitalProthrombin Time / [id number] 11:47:31 Test Item Value Reference Range Interpretation Comments PROTIME PATIENT (test See_Comment H [Auto mated message] code = 5964-2) The system [employer] generated this result transmitted ref erence range: 10.1 - 1 2.6 Seconds. The reference range was not used to int erpret this result as normal/abnormal . INR (test code = 6301-6) Nor mal INR <1.1; Warfarin Therap eutic range 2.0 to 3. 0 or 2.5 to 3.5, dep ending upon the indica tions. Lab Interpretation (test Abnormal code = 25492-3) [facility]aPTT[facility]21[facility] 11:47:31 Test Item Value Reference Range Interpretation Comments APTT Patient (test code = See_Comment [ Automated message] 3173-2) The system [employer] generated this result transmitted ref erence range: 26 - 36 Seconds. The re ference range was not u sed to interpret this result as normal/abnor mal. Lab Interpretation (test Normal code = 63001-1) [facility] HospitalL[facility] Acid Whole [id number] 11:28:22 Test Item Value Reference Range Interpretation Comments LACTIC ACID (test code = 1.83 mmol/L 0.50-2.20 [id number]) Lab Interpretation (test code = Normal 82046-3) [facility] PELVIS W [id number] 03:45:35 Thickening of the distal gastric wall, with mild mucosal enhancement,possibly reflecting gastritis or peptic ulcer disease. 16 mm left adrenal nodule, indeterminate by density. Comparison with anyprior noncontrast CT of the chest or abdomen or follow-up with renal massprotocol imaging could be considered. RL: 460 AFC: 46987 Ordering physician: ELSA LANDRY Indication: Acute abdominal [...] The patient is statuspost bilateral hip arthroplasty. [facility], Radiant Results Inft User - 02/20/2021 10:46 [...] with renal massprotocol imaging could be considered.RL: 460AF: 21676 [facility] [id number] 03:38:53No radiographic evidence for acute cardiopulmonary abnormality. RL: 111 EXAMINATION:XR CHEST 1 ORDERING PHYSICIAN: ELSA MAHONEYRIMACLINICAL HISTORY: Fever ; [...] radiographic evidence for acute cardiopulmonary abnormality.RL: 111 [facility] [id number] 01:47:17 Test Item Value Reference Interpretation Comments Range TROPONIN I (test 0.030 ng/mL See_Comment [Automated code = 7277561029) message] The system which generated this result [...] biotin. Lab Interpretation Normal (test code = 22349-0) [facility] 01:47:06 Test Item Value Reference Range Interpretation Comments APPEARANCE (test code = Cloudy Clear A 6362359686) COLOR (test code = Dona Yellow A 3473292867) PH (test code = 4.8-8.0 5401877797) SP GRAVITY (test code = 1.003-1.030 7536677601) GLU U QUAL (test code = Normal Normal 3908533192) BLOOD (test code = 2+ Negative A 6960503408) KETONES (test code = Negative Negative 5121918715) PROTEIN (test code = 100 mg/dL Negative A 2887-8) UROBILIN (test code = Normal Normal 2356347133) BILIRUBIN (test code = Negative Negative 0783374540) NITRITE (test code = Negative Negative 4101310874) LEUK MIGDALIA (test code = 250/uL Negative A 4596882341) RBC/HPF (test code = See_Comment H [Autom ated message] 0408885600) The system [employer] generated this result transmit elaine reference range : 0 - 3 HPF. The refe rence range was not u sed to interpret th is result as normal/abnormal . WBC/HPF (test code = >182 See_Comment H [Autom ated message] 3156696071) The system [employer] generated this result transmit elaine reference range : 0 - 5 HPF. The refe rence range was not u sed to interpret th is result as normal/abnormal . BACTERIA (test code = Many Negative A 0200035561) AMORPHOUS (test code = Few Rare HPF A 8694491000) WBC CLUMPS (test code = See_Comment H [Au tomated message] 7348271856) The system [employer] generated this result transmit elaine reference range : <=1 HPF. The refere nce range was not u sed to interpret th is result as normal/abnormal . Lab Interpretation (test Abnormal code = 29622-5) [facility] (70096[facility] (ALB,T.PRO,BILI T,BU/BC,ALT,AST,ALK PHOS)2021-02-21 01:36:37 Test Item Value Reference Range Interpretation Comments TOTAL BILI (test code = 5183381253) 0.6 mg/dL 0.1-1.1 BILI UNCON (test code = 0921152710) 0.4 mg/dL 0.1-1.1 BILI CONJ (test code = 1145822953) 0.0 mg/dL 0.0-0.3 T PROTEIN (test code = 2252565712) 9.2 g/dL 6.3-8.2 H ALBUMIN (test code = 7323338653) 4.7 g/dL 3.5-5.0 ALK PHOS (test code = 1460803179) 126 U/L 34-122 H ALTv (test code = 1742-6) 18 U/L 5-50 AST(SGOT) (test code = 7231314160) 38 U/L 13-40 Lab Interpretation (test code = Abnormal 37013-2) [facility]. METABOLIC PANEL (07115)2021-02-21 01:36:36 Test Item Value Reference Range Interpretation Comments NA (test code = 138 mmol/L 135-145 5428959073) K (test code = 4.4 mmol/L 3.5-5.0 7822827580) CL (test code = 100 mmol/L 98-108 0038558514) CO2 TOTAL (test code = 25 mmol/L 23-31 4539520586) AGAP (test code = 2-16 7764276503) BUN (test code = 19 mg/dL 7-23 3895366777) GLUCOSE (test code = 195 mg/dL 70-110 H 8135634830) CREATININE (test code = 0.90 mg/dL 0.60-1.25 9155161348) TOTAL BILI (test code = 0.6 mg/dL 0.1-1.2 3842049526) CALCIUM (test code = 9.8 mg/dL 8.6-10.6 7384142648) T PROTEIN (test code = 9.2 g/dL 6.3-8.2 H 6229809027) ALBUMIN (test code = 4.7 g/dL 3.5-5.0 3908757586) ALK PHOS (test code = 126 U/L 34-122 H 8993099590) ALTv (test code = 18 U/L 5-50 1742-6) AST(SGOT) (test code = 38 U/L 13-40 9560645122) eGFR (test code = mL/min/1.73m2 8628188925) ANU (test code = ANU) Association of [...] tests). Lab Interpretation Abnormal (test code = 37183-8) [facility]IP[facility]2021-[facility] 01:36:16 Test Item Value Reference Range Interpretation Comments LIPASE (test code = 8278027347) 50 U/L 0-220 Lab Interpretation (test code = Normal 43133-2) [facility]COVID[facility] (ID NOW RAPID TESTING)2021-02-21 01:35:20 Test Item Value Reference Range Interpretation Comments SARS-CoV-2 Rapid ID NOW Not Detected Not Detected (test code = 22663-9) ANU (test code = ANU) ID NOW COVID-19 Assay is an isothermal nucleic acid amplification test intended for the qualitative detection of nucleic acid from SARS-CoV-2 viral RNA in nasopharyngeal (PARTS WASHER) specimens. It is used under Emergency Use [...] indicated. Lab Interpretation Normal (test code = 59162-1) [facility] WITH [id number] 01:28:19 Test Item Value Reference Range Interpretation Comments WBC (test code = See_Comment [Automated 2384-2) message] The sy stem which generated this result transmitted reference range : 4.20 - 10.70 10*3/?L. The reference range was not used to interpret this result as normal/abnormal . RBC (test code = See_Comment L [Automated 439-8) message] The sy stem which generated this [...] RDW-SD (test code = 43.2 fL 38.5-51.6 31655-8) RDW-CV (test code = 12.5 % 12.1-15.4 788-0) PLT (test code = See_Comment [Automated 777-3) message] The sy stem which generated this result transmitted reference range : 150 - 328 10*3/ ?L. The reference r dustin was not used to interpret this result as normal/abnormal . MPV (test code = 10.1 fL 9.8-13.0 05839-5) NRBC/100 WBC (test See_Comment [Automat ed code = 5308991940) message] The system which generated this result transmitted reference range : 0.0 - 10.0 /100 WBCs. The refer ence range was not u sed to interpret th is result as normal/abnormal . NRBC x10^3 (test code <0.01 See_Comment [Auto mated = 6919546148) message] The s ystem which generated this result transmitted reference range : 10*3/?L. The reference range was not used to interpret this result as normal/abnormal . GRAN MAT (NEUT) % 78.2 % (test code = 770-8) IMM GRAN % (test code 0.60 % = 1458562220) LYMPH % (test code = 11.1 % 736-9) MONO % (test code = 9.2 % 5905-5) EOS % (test code = 0.4 % 713-8) BASO % (test code = 0.5 % 706-2) GRAN MAT x10^3(ANC) 7.80 10*3/uL 1.99-6.95 H (test code = 6586461086) IMM GRAN x10^3 (test 0.06 10*3/uL 0.00-0.06 code = 8375485290) LYMPH x10^3 (test code 1.11 10*3/uL 1.09-3.23 = 731-0) MONO x10^3 (test code 0.92 10*3/uL 0.36-1.02 = 742-7) EOS x10^3 (test code = 0.04 10*3/uL 0.06-0.53 L 711-2) BASO x10^3 (test code 0.05 10*3/uL 0.01-0.09 = 704-7) Lab Interpretation Abnormal (test code = 75398-7) [facility] Whole [id number] 01:04:41 Test Item Value Reference Range Interpretation Comments LACTIC ACID (test code = 2.15 mmol/L 0.50-2.20 9120106969) Lab Interpretation (test code = Normal 02148-3) [facility] HospitalCT Chest Wo [id number] 18:55:19 EXAMINATION:CT CHEST WO CONTRAST CLINICAL HISTORY:R06.02 [...] finding.6.No acute skeletal abnormalities seen.IMPRESSION:No acute cardiopulmonary disease.[id number] BEDSIDE TESTING 2019-10-02 16:50:00 Test Item Value Reference Range Interpretation Comments GLUCOSE BEDSIDE TESTING (test code = 98 mg/dL 70-110 N GLUBED) - XR FLUOROSCOPY 0-60 [id number] 16:05:00 Name: ANABELA RUTH Runnells : 1955 Age/S: 64 / M [address] Unit #: [id number] Loc: [place] [address] Phys: Trever Calvillo MD Acct: [id number] Dis Date: Status: [place] [facility] [place] #: [phone] Exam Date: 10/02/2019 1500 FAX #: Reason: LEFT FEMUR JUN PLATE REMOVAL EXAMS: CPT: [id number] XR FLUOROSCOPY 0-60 MIN 30741 Fluoro Time: 17 SEC DAP (Gy m2): [...] PAGE 1 Signed Report Name: ANABELA RUTH Runnells : 1955 Age/S: 64 / M [address] Unit #: [id number] Loc: [place] [address] Phys: Trever Calvillo MD Acct: [id number] Dis Date: Status: [place] [facility] [place] #: [phone] Exam Date: 10/02/2019 1500 FAX #: Reason: LEFT FEMUR JUN PLATE REMOVAL EXAMS: CPT: [id number] XR FLUOROSCOPY 0-60 MIN 66752 Fluoro Time: 17 SEC DAP (Gy m2): Air Kerma (mGy): <Continued> Technologist: Raine Vera RT(R) Trnscb Date/Time: 10/02/2019 (6910) [id number] Orig Print D/T: S: 10/02/2019 (6114) PAGE 2 Signed Report UA RFLX MICR CULT IF [id number] 08:47:00 Test Item Value Reference Range Interpretation [...] PRE OP EVALUA RFLX MICR CULT IF [id number] 08:46:00 Test Item Value Reference Range Interpretation [...] Dysuria/FrequencySpec Comments: INDICATION: PRE OP EVALBASIC METABOLIC [id number] 07:29:00 Test Item Value Reference Range Interpretation [...] CA) 9.1 MG/DL 8.5-10.1 N VITAMIN D 70-[id number] 07:29:00 Test Item Value Reference Range Interpretation Comments VITAMIN D 14.1 ng/mL 30.0-100.0 A Vitamin D defic iency has 25-HYDROXY (test been define d by the code = VITD25) [facility] edicine and an Endocrine So ciety practice guidel ine as alevel of serum 25-OH vitamin D less than 20 ng/mL (1,2).The Endocrine Society went on to further define vitamin Dinsufficiency as a level between 21 and 29 ng/mL (2).1. IOM (Ins titute of Medicine). 2010 . Dietary reference int akes for calcium and D. [place]: The [employer] .2. Sailaja MF, [place], Dianna moody MOSER, et al. Evaluatio n, treatment, and prevention of vitamin D deficiency: an Endocrine Society clinica l practice guideline. CONRAD EM. 2010; 96(9):7781-30.P erformed At: [facility] [address] [place], [place] [id number] Trever Ac MD Ph:[phone] BASIC METABOLIC [id number] 07:08:00 Test Item Value Reference Range Interpretation [...] CA) 9.1 MG/DL 8.5-10.1 N VITAMIN D 82-[id number] 07:08:00 Test Item Value Reference Range Interpretation Comments VITAMIN D 25-HYDROXY (test code = 14.1 VITD25) CBC W/AUTO [id number] 14:54:00 Test Item Value Reference Range Interpretation [...] code = NO DIFF/SCN CRITERIA MDIFF) SED [id number] 14:54:00 Test Item Value Reference Range Interpretation Comments SED RATE (test code = SEDW) 80 mm/hr 0-20 H - XR CHEST 2 [id number] 14:38:00 Name: ANABELA RUTH [facility] : 1955 Age/S: 64 / M [address] Unit #: [id number] Loc: [place] [address] Phys: Trever Calvillo MD Acct: [id number] Dis Date: Status: [place] [facility] [place] #: [phone] Exam Date: 09/19/2019 1400 FAX #: Reason: PREOP EXAMS: CPT: [id number] XR CHEST 2 V 33315 Fluoro Time: DAP (Gy m2): Air Kerma [...] Signed Report Name: ANABELA RUTH [facility] : 1955 Age/S: 64 / M [address] Unit #: [id number] Loc: [place] [address] Phys: Trever Calvillo MD Acct: [id number] Dis Date: Status: PRE SDC PHONE #: [phone] Exam Date: 09/19/2019 1400 FAX #: Reason: PREOP EXAMS: CPT: [id number] XR CHEST 2 V 57119 Fluoro Time: DAP (Gy m2): Air Kerma (mGy): <Continued> Technologist: Raine Vera, RT(R) Trnscb Date/Time: 09/19/2019 (6118) [id number] Orig Print D/T: S: 09/19/2019 (2257) PAGE 2 Signed ReportC REACTIVE [id number] 13:53:00 Test Item Value Reference Range Interpretation Comments C REACTIVE PROTEIN (test code = 0.629 MG/DL 0.000-0.3 H CRP) BASIC METABOLIC [id number] 13:52:00 Test Item Value Reference Range Interpretation [...] CA) 9.1 MG/DL 8.5-10.1 N VITAMIN D 29-[id number] 13:52:00 Test Item Value Reference Range Interpretation Comments VITAMIN D 25-HYDROXY (test code = VITD25) PROTHROMBIN [id number] 13:42:00 Test Item Value Reference Range Interpretation Comments PT PATIENT (test code = PTP) 13.2 SECONDS 9.3-12.9 H INTERNATIONAL NORMAL RATIO 1.16 INR Unit 0.8-1.2 N (test code = INR) THROMBOPLASTIN TIME [id number] 13:42:00 Test Item Value Reference Range Interpretation Comments THROMBOPLASTIN TIME PARTIAL 34.7 SECONDS 26-35 N (test code = PTT) CBC W/AUTO [id number] 13:33:00 Test Item Value Reference Range Interpretation [...] code = NO DIFF/SCN CRITERIA MDIFF) SED [id number] 13:33:00 Test Item Value Reference Range Interpretation Comments SED RATE (test code = SEDW) mm/hr 0-20 - CT LOWER EXTRM W/O C [id number] 11:45:00 Name: ANABELA RUTH [facility] : 1955 Age/S: 64 / M [address] Unit #: [id number] Loc: [place] [address] Phys: Trever Calvillo MD Acct: [id number] Dis Date: Status: PRE CLI PHONE #: [phone] Exam Date: 09/19/2019 1100 FAX #: Reason: PAIN LFT KNEE EXAMS: CPT: [id number] [place] L[place] EXTRM W/[place] [address] EXAM: - CTLOWER EXTRM W/O C LT [...] 1 Signed Report (CONTINUED) Name: ANABELA RUTH [facility] : 1955 Age/S: 64 / M [address] Unit #: [id number] Loc: [place] [address] Phys: Trever Calvillo MD Acct: [id number] Dis Date: Status: PRE CLI PHONE #: [phone] Exam Date: 09/19/2019 1100 FAX #: Reason: PAIN LFT KNEE EXAMS: CPT: [id number] [place] LOWER EXTRM W/[place] [address] <Continued> at 1145 Reported and signed by: Oswald Devi MD CC: Trever Calvillo MD; Kiran Loera MD Technologist:Desire Hernandez, RT(R)(MR) CTDI: DLP: Trnscb Date/Time: 09/19/2019 (1145) [email or web address] Orig Print D/T: S: 09/19/2019 (4954) PAGE 2 Signed ReportXR CHEST 2 [id number] 01:04:06 No acute intrathoracic abnormality.* * * * * * * * ORIGINAL REPORT * * * * * * * *PROCEDURE: XR CHEST 2 VW CLINICAL INDICATION: dyspnea COMPARISON: 09/20/2017 FINDINGS: The lungs are clear, no infiltrate or nodule seen. No pleural effusion or pneumothorax is seen. The cardiomediastinal silhouette is normal. No acute bony abnormality. Mild arthritic changes throughout spine andshoulders. [facility], Radiant Results Inft User - 02/23/2019 8:04 [...] arthritic changes throughout spine andshoulders.IMPRESSIONNo acute intrathoracic abnormality.[facility]
[2022-01-01] MEDS ORDERED: NA CHLORIDE 0.9% 1,000 ML ONE ×3 (11:13→16:08)
[2022-01-01] MEDS ORDERED: NA CHLORIDE 0.9% 100 ML ONE (11:28)
[2022-01-01] MEDS ORDERED: CEFTRIAXONE 1000 MG/VIAL ONE (11:28)
[2022-01-01 11:38] LABS: Absolute Lymphocytes (CBC) 1.8 K/uL (0.7-4.9); Hematocrit 36.5 % (39.6-49.0); Lymphocytes % 21.5 % (15.3-44.8); MPV 7.8 fL (7.6-11.3); RBC Red Blood Cell Count 3.81 M/uL (4.33-5.43)
[2022-01-01 11:41] LABS: Protime INR 1.2
--- NOTE | 2022-01-01 11:42 | RAD REPORT ---
EXAM DESCRIPTION: RAD - Chest Single View - 01/01/2022 11:36 am CLINICAL HISTORY: COUGH COMPARISON: Chest Single View dated 12/06/2021; Chest Single View dated 04/16/2021; Chest Single View d ated 11/23/2020; Abdomen 1 View (KUB) dated 11/14/2020 FINDINGS: Lines: None. Lungs: No evidence of edema or pneumonia. Pleural: No significant pleural effusions or pneumothorax. Cardiac: The heart size is within normal limits. Bones: No acute fractures. Other: IMPRESSION: No acute cardiopulmonary disease.
[2022-01-01 11:50] LABS: Urine Blood Negative (Negative); Urine Glucose Negative (Negative); Urine Protein 2+ (Negative); Urine Specific Gravity >=1.030 (1.005-1.030)
[2022-01-01 11:58] LABS: Bilirubin Direct 0.2 mg/dL (0-0.2); Bilirubin Total 0.3 mg/dL (0.2-1.0); Magnesium 1.7 mg/dL (1.8-2.4); Potassium 4.6 mmol/L (3.5-5.1); Protein, Total 7.9 g/dL (6.4-8.2); Troponin High Sensitivity 9.8 pg/mL (<58.9)
--- NOTE | 2022-01-01 12:06 | ER ---
Nurse's Notes [facility] Name: David Lopez Age: 66 yrs Sex: Male : 1955 Arrival Date: 01/01/2022 Time: 10:34 Bed 13 Private MD: Diagnosis: Weakness;Hypotension, unspecified;Sepsis, unspecified organism;Constipation-fecal/rectal impaction Presentation: 01/01 09:25 Chief complaint: EMS states: Urinary Catheter pain-recent insertion 2 days ago, unknown jg9 why patient has the catheter, patient has dementia and is alert to self. Coronavirus screen: Vaccine status:. Ebola Screen: Patient negative for fever greater than or equal to 101.5 degrees Fahrenheit, and additional compatible Ebola Virus Disease symptoms Patient denies exposure to infectious person. Patient denies travel to an Ebola-affected area in the 21 days before illness onset. Initial Sepsis Screen: Does the patient meet any 2 criteria? No. Patient's initial sepsis screen is negative. Does the patient have a suspected source of infection? No. Patient's initial sepsis screen is negative. Risk Assessment: Do you want to hurt yourself or someone else? Patient reports no desire to harm self or others. Onset of symptoms is unknown. 09:25 Method Of Arrival: EMS: [facility] 9 09:25 Acuity: LEANNA 3 jg9 Triage Assessment: 09:25 General: Appears in no apparent distress. Behavior is calm, cooperative. Pain: jg9 Complains of pain in abdomen, pelvis, right leg, left leg, back of neck and back-bilateral knee Pain currently is 8 out of 10 on a pain scale. EENT: No deficits noted. Neuro: Level of Consciousness is awake, alert, confused, Oriented to person. Cardiovascular: No deficits noted. Respiratory: No deficits noted. GI: Reports lower abdominal pain, upper abdominal pain. : Reports pain to knott. Derm: No deficits noted. Musculoskeletal: patient has bilateral lower extremity contractures and upper extremity contractures. Historical: - Allergies: 10:43 No Known Allergies; jg9 - PMHx: 10:43 CVA; Diabetes - NIDDM; Hypertension; Parkinsons; jg9 - Immunization history:: Adult Immunizations unknown. - Social history:: Smoking status: Patient denies any tobacco usage or history of. - Family history:: not pertinent. Screenin:25 Abuse screen: Denies threats or abuse. Denies injuries from another. Nutritional jg9 screening: No deficits noted. Tuberculosis screening: No symptoms or risk factors identified. Fall Risk None identified. Assessment: 09:45 : Knott in place Penile discharge is white. jg9 10:30 Reassessment: knott removed-patient tolerated ok. jg9 11:51 Reassessment: No changes from previously documented assessment. Patient and/or family jg9 updated on plan of care and expected duration. Pain level reassessed. Patient is alert, oriented x 3, equal unlabored respirations, skin warm/dry/pink. 13:47 Reassessment: patient has not urinated yet, urinal at bedside. jg9 15:15 Reassessment: Patient had extra large BM-loose/watery, color-greenish. jg9 Vital Signs: 09:25 BP 98 / 71; Pulse 75; Resp 16; Temp 97(A); Pulse Ox 96% on R/A; Weight 63.5 kg (R); jg9 Height 5 ft. 6 in. (167.64 cm) (R); Pain 8/10; 10:30 BP 102 / 70; Pulse 76; Resp 16 S; Pulse Ox 97% on R/A; jg9 11:00 BP 82 / 65; Pulse 76; Resp 17 S; Pulse Ox 98% on R/A; jg9 11:30 BP 94 / 68; Pulse 74; Resp 17 S; Pulse Ox 97% on R/A; jg9 11:45 BP 86 / 65; Pulse 72; Resp 17 S; Pulse Ox 96% on R/A; jg9 13:00 BP 103 / 45; Pulse 72; Resp 17 S; Pulse Ox 100% ; jg9 13:30 BP 98 / 66; Pulse 73; Resp 14; Pulse Ox 100% ; jg9 14:30 BP 104 / 64; Pulse 74; Resp 17 S; Pulse Ox 98% on R/A; jg9 15:00 BP 95 / 68; Pulse 74; Resp 17 S; Pulse Ox 96% on R/A; jg9 09:25 Body Mass Index 22.60 (63.50 kg, 167.64 cm) jg9 ED Course: 10:34 Patient arrived in ED. jg9 10:35 Perla Robb, BERNY is Primary Nurse. jg9 10:38 Forest Guerra MD is Attending Physician. emerald 10:40 Triage completed. jg9 10:43 Arm band placed on right wrist. jg9 10:44 Patient has correct armband on for positive identification. Bed in low position. Call jg9 light in reach. Side rails up X 1. 11:38 XRAY Chest (1 view) In Process Unspecified. EDMS 11:40 Inserted saline lock: 22 gauge in right hand, using aseptic technique. jg9 11:51 No apparent distress. Pt visited by . jg9 12:04 Reshma Byrd MD is Hospitalizing Provider. emerald 12:[address] In Process Unspecified. EDMS 13:48 No apparent distress. Resting quietly. Pt visited by . jg9 16:55 No provider procedures requiring assistance completed. jg9 16:56 Patient admitted, IV remains in place. jg9 Administered Medications: 11:45 Drug: NS 0.9% 1000 ml Route: IV; Rate: 1 bolus; Site: left hand; jg9 13:46 Follow up: IV Status: Completed infusion; IV Intake: 1000ml jg9 11:45 Drug: Rocephin (cefTRIAXone) 1 grams Route: IV; Rate: per protocol; Site: left hand; jg9 13:07 Follow up: Response: No adverse reaction jg9 13:08 Follow up: IV Status: Completed infusion; IV Intake: 50ml jg9 12:26 Drug: NS 0.9% 500 ml Route: IV; Rate: bolus; Site: left hand; jg9 13:46 Follow up: IV Status: Completed infusion; IV Intake: 500ml jg9 12:39 Drug: Magnesium Sulfate 1 grams Route: IVPB; Infused Over: 1 hrs; Site: left hand; jg9 13:47 Follow up: IV Status: Completed infusion; IV Intake: 100ml jg9 14:02 Drug: NS 0.9% 1000 ml Route: IV; Rate: 125 ml/hr; Site: left hand; jg9 15:36 Drug: NS 0.9% 1000 ml Route: IV; Rate: 1 bolus; Site: left hand; jg9 16:56 Follow up: IV Status: Completed infusion; IV Intake: 1000ml jg9 Medication: 10:44 VIS not applicable for this client. jg9 Intake: 13:08 IV: 50ml; Total: 50ml. jg9 13:46 IV: 500ml; Total: 550ml. jg9 13:46 IV: 1000ml; Total: 1550ml. jg9 13:47 IV: 100ml; Total: 1650ml. jg9 16:56 IV: 1000ml; Total: 2650ml. jg9 Outcome: 12:05 Decision to Hospitalize by Provider. emearld 16:55 Admitted to Med/surg accompanied by aram, via stretcher, room 212, Report called to linda Woods RN 16:56 Condition: stable linda 17:03 Patient left the ED. jg9 Signatures: Dispatcher [employer] Forest Vera MD MD cha Gilmore, Jennifer RN RN jg9
--- NOTE | 2022-01-01 12:06 | EDPHYS ---
Physician Documentation [facility] Name: David Lopez Age: 66 yrs Sex: Male : 1955 Arrival Date: 01/01/2022 Time: 10:34 Bed 13 Private MD: ED Physician Forest Guerra HPI: 01/01 11:09 This 66 yrs old Male presents to ER via EMS with complaints of Problem With emerald Urinary Catheter - c/o diffuse lower abd pain-puss noted at insertion site. 11:09 The patient presents with a Knott catheter problem, is leaking urine. Onset: The emerald symptoms/episode began/occurred 1 day(s) ago. Modifying factors: The symptoms are alleviated by nothing, the symptoms are aggravated by nothing. pain all over , low bp , pus at meatus. Associated signs and symptoms: Pertinent positives: abdominal pain. Severity of symptoms: At their worst the symptoms were moderate, in the emergency department the symptoms are unchanged. Severity of symptoms: At their worst the symptoms were mild in the emergency department the symptoms are unchanged. The patient has not experienced similar symptoms in the past. Historical: - Allergies: 10:43 No Known Allergies; jg9 - PMHx: 10:43 CVA; Diabetes - NIDDM; Hypertension; Parkinsons; jg9 - Immunization history:: Adult Immunizations unknown. - Social history:: Smoking status: Patient denies any tobacco usage or history of. - Family history:: not pertinent. ROS: 11:09 Constitutional: Negative for fever, chills, and weight loss, Eyes: Negative for injury, emerald pain, redness, and discharge, ENT: Negative for injury, pain, and discharge, Neck: Negative for injury, pain, and swelling, Cardiovascular: Negative for chest pain, palpitations, and edema, Respiratory: Negative for shortness of breath, cough, wheezing, and pleuritic chest pain, Back: Negative for injury and pain, Skin: Negative for injury, rash, and discoloration, Neuro: Negative for headache, weakness, numbness, tingling, and seizure, Psych: Negative for depression, anxiety, suicide ideation, homicidal ideation, and hallucinations, Allergy/Immunology: Negative for hives, rash, and allergies, Endocrine: Negative for neck swelling, polydipsia, polyuria, polyphagia, and marked weight changes, Hematologic/Lymphatic: Negative for swollen nodes, abnormal bleeding, and unusual bruising. 11:09 Abdomen/GI: Positive for abdominal pain. 11:09 : Positive for knott. Exam: 11:09 Constitutional: This is a well developed, well nourished patient who is awake, alert, emerald and in no acute distress. Head/Face: Normocephalic, atraumatic. Eyes: Pupils equal round and reactive to light, extra-ocular motions intact. Lids and lashes normal. Conjunctiva and sclera are non-icteric and not injected. Cornea within normal limits. Periorbital areas with no swelling, redness, or edema. ENT: Nares patent. No nasal discharge, no septal abnormalities noted. Tympanic membranes are normal and external auditory canals are clear. Oropharynx with no redness, swelling, or masses, exudates, or evidence of obstruction, uvula midline. Mucous membranes moist. Neck: Trachea midline, no thyromegaly or masses palpated, and no cervical lymphadenopathy. Supple, full range of motion without nuchal rigidity, or vertebral point tenderness. No Meningismus. Chest/axilla: Normal chest wall appearance and motion. Nontender with no deformity. No lesions are appreciated. Cardiovascular: Regular rate and rhythm with a normal S1 and S2. No gallops, murmurs, or rubs. Normal PMI, no JVD. No pulse deficits. Respiratory: Lungs have equal breath sounds bilaterally, clear to auscultation and percussion. No rales, rhonchi or wheezes noted. No increased work of breathing, no retractions or nasal flaring. Abdomen/GI: Soft, non-tender, with normal bowel sounds. No distension or tympany. No guarding or rebound. No evidence of tenderness throughout. Back: No spinal tenderness. No costovertebral tenderness. Full range of motion. Skin: Warm, dry with normal turgor. Normal color with no rashes, no lesions, and no evidence of cellulitis. Neuro: Awake and alert, GCS 15, oriented to person, place, time, and situation. Cranial nerves II-XII grossly intact. Motor strength 5/5 in all extremities. Sensory grossly intact. Cerebellar exam normal. Normal gait. Psych: Awake, alert, with orientation to person, place and time. Behavior, mood, and affect are within normal limits. 11:09 : CVA tenderness, is absent, Male external genitalia: penile discharge, purulent, tenderness, that is mild. 11:09 Musculoskeletal/extremity: ROM: limited active range of motion due to pain, limited passive range of motion due to pain, in the right leg and left leg. 11:09 Neuro: Orientation: is normal, appropriate for stated age, no acute changes, Mentation: is normal, appropriate for stated age, no acute changes, Memory: is normal, appropriate for stated age, no acute changes, Cranial nerves: grossly normal, Cerebellar function: is grossly normal, Gait: not tested. 15:38 ECG was reviewed by the Attending Physician. [facility] Vital Signs: 09:25 BP 98 / 71; Pulse 75; Resp 16; Temp 97(A); Pulse Ox 96% on R/A; Weight 63.5 kg (R); jg9 Height 5 ft. 6 in. (167.64 cm) (R); Pain 8/10; 10:30 BP 102 / 70; Pulse 76; Resp 16 S; Pulse Ox 97% on R/A; jg9 11:00 BP 82 / 65; Pulse 76; Resp 17 S; Pulse Ox 98% on R/A; jg9 11:30 BP 94 / 68; Pulse 74; Resp 17 S; Pulse Ox 97% on R/A; jg9 11:45 BP 86 / 65; Pulse 72; Resp 17 S; Pulse Ox 96% on R/A; jg9 13:00 BP 103 / 45; Pulse 72; Resp 17 S; Pulse Ox 100% ; jg9 13:30 BP 98 / 66; Pulse 73; Resp 14; Pulse Ox 100% ; jg9 14:30 BP 104 / 64; Pulse 74; Resp 17 S; Pulse Ox 98% on R/A; jg9 15:00 BP 95 / 68; Pulse 74; Resp 17 S; Pulse Ox 96% on R/A; jg9 09:25 Body Mass Index 22.60 (63.50 kg, 167.64 cm) 9 MDM: 10:38 Patient medically screened. [facility] 11:14 Differential diagnosis: nonspecific abdominal pain, UTI, urinary retention, Knott emerald catheter problem, prostatitis, urethritis. Differential Diagnosis sepsis. Data reviewed: vital signs, nurses notes, lab test result(s), EKG, radiologic studies, plain films. Data interpreted: air sampling and monitoring: rate is 76 beats/min, rhythm is regular, Pulse oximetry: on room air is 97 %. Test interpretation: by ED physician or midlevel provider: ECG, plain radiologic studies. Counseling: I had a detailed discussion with the patient and/or guardian regarding: the historical points, exam findings, and any diagnostic results supporting the discharge/admit diagnosis, lab results, radiology results. 01/01 11:08 Order name: Basic Metabolic Panel; Complete Time: 12:03 [facility] 01/01 11:08 Order name: CBC with Diff; Complete Time: 11:56 [facility] 01/01 11:08 Order name: LFT's; Complete Time: 12:03 [facility] 01/01 11:08 Order name: Magnesium; Complete Time: 12:03 [facility] 01/01 11:08 Order name: NT PRO-BNP; Complete Time: 12:03 [facility] 01/01 11:08 Order name: PT-INR; Complete Time: 11:56 [facility] 01/01 11:08 Order name: Troponin HS; Complete Time: 12:03 [facility] 01/01 11:08 Order name: Lipase; Complete Time: 12:03 [facility] 01/01 11:08 Order name: Urine Culture [facility] 01/01 11:08 Order name: Lactate; Complete Time: 12:03 [facility] 01/01 11:08 Order name: Procalcitonin; Complete Time: 13:07 [facility] 01/01 11:08 Order name: SARS-COV-2 RT PCR (Document "Date of Onset" if Symptomatic); Complete Time: [facility] 15:34 01/01 11:50 Order name: Urine Dipstick-Ancillary; Complete Time: 11:56 [facility] 01/01 14:44 Order name: Lactate Sepsis 2 HR Follow-up; Complete Time: 15:34 [facility] 01/01 11:08 Order name: XRAY Chest (1 view); Complete Time: 11:56 [facility] 01/01 11:08 Order name: EKG; Complete Time: 11:09 [facility] 01/01 11:08 Order name: Cardiac monitoring; Complete Time: 11:15 [facility] 01/01 11:08 Order name: EKG - Nurse/Tech; Complete Time: 11:50 [facility] 01/01 11:47 Order name: Stone Protocol CT; Complete Time: 13:07 01/01 15:58 Order name: Heart Healthy [facility] 01/01 15:58 Order name: CBC with Automated Diff EDMS 01/01 15:58 Order name: CBC with Automated Diff EDMS 01/01 15:58 Order name: Comprehensive Metabolic Panel EDMS 01/01 15:58 Order name: Comprehensive Metabolic Panel EDMS 01/01 11:08 Order name: IV Saline Lock; Complete Time: 11:50 [facility] 01/01 11:08 Order name: Labs collected and sent; Complete Time: 11:50 [facility] 01/01 11:08 Order name: O2 Per Protocol; Complete Time: 15:18 [facility] 01/01 11:08 Order name: O2 Sat Monitoring; Complete Time: 11:50 [facility] 01/01 11:08 Order name: Urine Dipstick-Ancillary (obtain specimen); Complete Time: 11:50 [facility] 01/01 11:08 Order name: Knott: remove and replace; Complete Time: 11:50 [facility] EC:38 Rate is 75 beats/min. Rhythm is regular. QRS [place] is Normal. RI interval is normal. QRS emerald interval is normal. QT interval is normal. No Q waves. T waves are Inverted in leads II, III, aVF, V4, V5, V6. No ST changes noted. Clinical impression: NSR w/ Non-specific ST/T Changes. Interpreted by me. Reviewed by me. Administered Medications: 11:45 Drug: NS 0.9% 1000 ml Route: IV; Rate: 1 bolus; Site: left hand; jg9 13:46 Follow up: IV Status: Completed infusion; IV Intake: 1000ml jg9 11:45 Drug: Rocephin (cefTRIAXone) 1 grams Route: IV; Rate: per protocol; Site: left hand; jg9 13:07 Follow up: Response: No adverse reaction 9 13:08 Follow up: IV Status: Completed infusion; IV Intake: 50ml jg9 12:26 Drug: NS 0.9% 500 ml Route: IV; Rate: bolus; Site: left hand; jg9 13:46 Follow up: IV Status: Completed infusion; IV Intake: 500ml jg9 12:39 Drug: Magnesium Sulfate 1 grams Route: IVPB; Infused Over: 1 hrs; Site: left hand; jg9 13:47 Follow up: IV Status: Completed infusion; IV Intake: 100ml jg9 14:02 Drug: NS 0.9% 1000 ml Route: IV; Rate: 125 ml/hr; Site: left hand; jg9 15:36 Drug: NS 0.9% 1000 ml Route: IV; Rate: 1 bolus; Site: left hand; jg9 16:56 Follow up: IV Status: Completed infusion; IV Intake: 1000ml jg9 Disposition Summary: 01/01/22 12:05 Hospitalization Ordered Hospitalization Status: Inpatient Admission emerald Provider: Reshma Byrd cha [facility] emerald Condition: Fair emerald Problem: new emerald Symptoms: have improved emerald Bed/Room Type: Standard emerald Room Assignment: 212(01/01/22 16:39) dw Diagnosis - Weakness emerald - Hypotension, unspecified emerald - Sepsis, unspecified organism emerald - Constipation - fecal/rectal impaction emerald Forms: - Medication Reconciliation Form emerald - SBAR form emerald Signatures: Dispatcher [employer] Beba Son RN RN dw Anderson, Corey, MD MD cha Calderon, Audri RN RN aa5 Perla Robb RN RN jg9 Corrections: (The following items were deleted from the chart) 15:35 12:05 Parkinson's disease emerald emerald 16:39 12:05 emerald dw
[2022-01-01] MEDS ORDERED: NA CHLORIDE 0.9% 500 ML ONE (12:07)
--- NOTE | 2022-01-01 12:21 | RAD REPORT ---
EXAM DESCRIPTION: CTStone Protocol - 01/01/2022 12:03 pm CLINICAL HISTORY: Abd pain COMPARISON: Abdomen Pelvis W Contrast dated 12/23/2021; Abdomen Pelvis W Contrast dated 12/06/2021; Stone Protocol dated 09/13/2021; Abdomen Pelvis W Contrast dated 11/23/2020 TECHNIQUE: CT of the abdomen and pelvis was performed. All CT scans are performed using dose optimization technique as appropriate and may include automated exposure control or mA/KV adjustment according to patient size. FINDINGS: Lower chest: Coronary artery calcifications. Liver: No acute abnormality or suspicious lesions. Biliary: No biliary ductal dilatation. Stomach: No significant focal abnormality. Duodenum: No significant focal abnormality. Pancreas: No significant abnormality. Spleen: No significant abnormality. Adrenal: Left adrenal nodules unchanged and benign. Kidney/ureter: No hydronephrosis. No renal calculi. Left nephrectomy Retroperitoneum: No retroperitoneal adenopathy. Vascular: No aneurysm. Bowel: Large stool burden which is predominantly in the sigmoid and rectum. No bowel obstruction.. No rmal appendix. Mild stranding along the right paracolic gutter Peritoneum: No ascites or free air. Bladder: The bladder is decompressed and not well evaluated. In addition, there is streak artifact. T he bladder wall gas and does appear to have resolved. Reproductive: No adnexal masses. Bones: No acute fracture. Hip arthroplasties. Bone graft site in the left iliac bone. Multilevel dege nerative changes are present in the spine. Other: n/a IMPRESSION: Large sigmoid and rectal stool burden consistent with constipation and possible fecal im paction. No bowel obstruction. Bladder gas identified on the prior CT has resolved.
[2022-01-01] MEDS ORDERED: MAGNESIUM SULFATE 1 gm IVPB 1 GM/100 ML BAG IV ONE (12:34)
[2022-01-01] MEDS ORDERED: ACETAMINOPHEN 500 MG TAB PO PRN (15:45)
[2022-01-01] MEDS ORDERED: ONDANSETRON 4 MG/2 ML VIAL IV PRN (15:45)
[2022-01-01] MEDS ORDERED: MORPHINE 2 MG/ML SYR IV PRN (15:45)
[2022-01-01 16:12] VITALS: BMI 22.6
[2022-01-01] MEDS ORDERED: MINERAL OIL 30 ML UCUP PO ONE ×2 (17:00→21:00)
[2022-01-01] MEDS ORDERED: BISACODYL E.C. 5 MG TAB PO ONE (17:00)
[2022-01-01 17:53] VITALS: O2SAT 96
[2022-01-01] MEDS: MEMANTINE HCL 10 MG TABLET PO SCH (20:18)
[2022-01-01] MEDS: clonazePAM 0.5 MG TAB PO SCH (20:18)
[2022-01-01] MEDS: NA CHLORIDE 0.9% 1,000 ML IV SCH (20:19)
[2022-01-01] MEDS: INSULIN GLARGINE 100 UNIT/ML SQ SCH (20:19)
[2022-01-01] MEDS ORDERED: HOME MED 1 EA UNK (Insulin Detemir [Levemir Flextouch] 100 UNIT/ML Insuln.Pen) SQ SCH (21:00)
[2022-01-02 04:15] LABS: Absolute Lymphocytes (CBC) 1.7 K/uL (0.7-4.9); Hematocrit 29.7 % (39.6-49.0); Lymphocytes % 27.2 % (15.3-44.8); MPV 7.9 fL (7.6-11.3)
[2022-01-02 04:39] LABS: Albumin 2.4 g/dL (3.4-5.0); Bilirubin Total 0.2 mg/dL (0.2-1.0); Protein, Total 6.3 g/dL (6.4-8.2)
[2022-01-02] MEDS: NA CHLORIDE 0.9% 1,000 ML IV SCH ×2 (06:18→18:43)
[2022-01-02] MEDS: INSULIN GLARGINE 100 UNIT/ML SQ SCH ×2 (09:00→21:00)
[2022-01-02] MEDS: clonazePAM 0.5 MG TAB PO SCH ×2 (10:31→21:04)
[2022-01-02] MEDS: SOTALOL HCL 80 MG TAB PO SCH (10:31)
[2022-01-02] MEDS: MEMANTINE HCL 10 MG TABLET PO SCH ×2 (10:32→21:04)
[2022-01-03] MEDS: NA CHLORIDE 0.9% 1,000 ML IV SCH (06:39)
[2022-01-03] MEDS: INSULIN GLARGINE 100 UNIT/ML SQ SCH (09:00)
[2022-01-03] MEDS: MEMANTINE HCL 10 MG TABLET PO SCH (09:31)
[2022-01-03] MEDS: clonazePAM 0.5 MG TAB PO SCH (09:31)
[2022-01-03] MEDS: SOTALOL HCL 80 MG TAB PO SCH (09:31)
--- NOTE | 2022-01-03 14:32 | EKG ---
Test Date: 2022-01-01 Test Time: 15:30:08 Rotor Plate Washer: RIO MEASUREMENT RESULTS: Intervals: Rate: 75 NE: 174 QRSD: 84 QT: 432 QTc: 482 [place]: P: 33 NE: 174 QRS: 87 T: 18 INTERPRETIVE STATEMENTS: Normal sinus rhythm T wave abnormality, consider inferior ischemia Abnormal ECG Compared to ECG 04/16/2021 18:47:10 T-wave abnormality now present Possible ischemia now present ST (T wave) deviation no longer present Electronically Signed On 01-03-22 14:31:54 CDT by Yuval Ha
[2022-01-03 16:21] VITALS: BP 119/66; TEMP 97.7
--- NOTE | 2022-01-17 02:33 | P.HP ---
Certification for Inpatient Patient admitted to: Inpatient With expected LOS: >2 Midnights Patient will require the following post-hospital care: None Practitioner: I am a practitioner with admitting privileges, knowledge of patient current condition, hospital course, and medical plan of care. Services: Services provided to patient in accordance with Admission requirements found in Title 42 Section 412.3 of the Code of Federal Regulations Patient History Date of Service: 01/01/22 Reason for admission: Dysuria History of Present Illness: Pt is a 66 yrs old male presents to ER via EMS with complaints of issues with her urinary catheter - c/o diffuse lower abdominal pain-pus was noted at insertion site. Pt is presents with a Mckeon catheter problem, is leaking urine. Pt is also abdominal pain. Patient will be admitted to the hospital for further evaluation that Allergies No Known Allergies Allergy (Verified 08/12/18 00:38) Home Medications: Sotalol HCl [Betapace*] 80 mg PO DAILY 08/12/18 Atorvastatin Calcium [Lipitor] 80 mg PO DAILY #30 tablet 08/13/18 Metformin HCl [Metformin HCl ER] 1 tab PO BID 11/14/20 buprenorphine HCL [Buprenorphine HCl] 8 mg SL Q8HR 11/14/20 clonazePAM [Clonazepam] 1 mg PO BID 11/14/20 Pantoprazole [Protonix Tab*] 40 mg PO DAILY #40 tab 11/15/20 Ascorbic Acid [Vitamin C] 1 tab PO DAILY 09/13/21 Aspirin 1 tab PO DAILY 09/13/21 Cyanocobalamin (Vitamin B-12) [Vitamin B-12] 1 tab PO DAILY 09/13/21 Insulin Detemir [Levemir Flextouch] 20 unit SQ BID 09/13/21 Iron 65 mg PO DAILY 09/13/21 Memantine HCl [Namenda] 10 mg PO BID 09/13/21 Venlafaxine HCl [Venlafaxine HCl ER] 150 mg PO DAILY 12/23/21 Levofloxacin [Levaquin] 500 mg PO DAILY #12 tablet 12/24/21 - Past Medical/Surgical History Has patient received pneumonia vaccine in the past: Yes Diabetic: Yes -: Diabetes mellitus type 2 insulin-dependent -: GERD -: BPH -: Depression -: HTN -: Chronic Pain -: History of asbestosis exposure -: Atrial fibrillation -: left kidney cancer 18 years ago -: CVA -: femur sx X3 -: neck surg -: [place] hip replacement -: right knee replacement -: left kidney removal -: back surgery Psychosocial/ Personal History: Patient lives at home - Family History Mother History Unknown: Yes Medical History: Diabetes Brother History Unknown: Yes Medical History: Diabetes - Social History Smoking Status: Never smoker Alcohol use: No CD- Drugs: No Caffeine use: No Place of Residence: Home Review of Systems 10-point ROS is otherwise unremarkable Physical Examination - Vital Signs Temperature: 97.7 F Blood Pressure: 119/66 Pulse: 70 Respirations: 16 Pulse Ox (%): 99 - Physical Exam General: Alert, In no apparent distress, Oriented x3 HEENT: Atraumatic, PERRLA, Mucous membr. moist/pink, EOMI, Sclerae nonicteric Neck: Supple, 2+ carotid pulse no bruit, No LAD, Without JVD or thyroid abno rmality Respiratory: Clear to auscultation bilaterally, Normal air movement Cardiovascular: Regular rate/rhythm, Normal S1 S2, No murmurs Gastrointestinal: Normal bowel sounds, Soft and benign, Non-distended, No rebound, No guarding, Tenderness Musculoskeletal: No clubbing, No swelling, No tenderness Integumentary: No rashes Neurological: Normal gait, Normal speech, Normal strength at 5/5 x4 extr, Normal tone, Sensation intact, Cranial nerves 3-12 intact, Normal affect Lymphatics: No axilla or inguinal lymphadenopathy Assessment & Plan - Problems (Diagnosis) (1) Urinary bladder disorder Status: Acute (2) Diabetes mellitus Onset Date: 08/12/18 Status: Acute (3) Hypertriglyceridemia Status: Acute (4) Parkinson disease Onset Date: 06/04/16 Status: Acute (5) UTI (urinary tract infection) Status: Acute Qualifiers: (6) HTN (hypertension) Onset Date: 08/12/18 Status: Chronic Qualifiers: - Plan PLAN: 1. IV antibiotics 2. Monitor labs 3. Urine cx 4. IVFs Discharge Plan: Home Plan to discharge in: 24 Hours - Advance Directives Does patient have a Living Will: No Does patient have a Durable POA for Healthcare: Yes - Code Status/Comfort Care Code Status Assessed: Yes Code Status: Full Code Critical Care: No Time Spent Managing PTS Care (In Minutes): 45
--- NOTE | 2022-01-17 02:34 | P.PN ---
Subjective Date of Service: 01/02/22 Subjective: No new changes, No C/O voiced, Improving Review of Systems 10-point ROS is otherwise unremarkable Physical Examination - Vital Signs Temperature: 97.7 F Blood Pressure: 119/66 Pulse: 70 Respirations: 16 Pulse Ox (%): 99 - Physical Exam General: Alert, In no apparent distress, Oriented x3 HEENT: Atraumatic, PERRLA, EOMI Neck: Supple, JVD not distended Respiratory: Clear to auscultation bilaterally, Normal air movement Cardiovascular: Regular rate/rhythm, Normal S1 S2 Gastrointestinal: Normal bowel sounds, No tenderness Musculoskeletal: No tenderness Integumentary: No rashes Neurological: Normal speech, Normal tone, Normal affect Lymphatics: No axilla or inguinal lymphadenopathy - Studies Medications List Reviewed: Yes Assessment & Plan - Problems (Diagnosis) (1) Urinary bladder disorder Status: Acute (2) Diabetes mellitus Onset Date: 08/12/18 Status: Acute (3) Hypertriglyceridemia Status: Acute (4) Parkinson disease Onset Date: 06/04/16 Status: Acute (5) UTI (urinary tract infection) Status: Acute Qualifiers: (6) HTN (hypertension) Onset Date: 08/12/18 Status: Chronic Qualifiers: - Plan PLAN: Continue with POC as mentioned above: 1. IV antibiotics 2. Monitor labs 3. Urine cx 4. IVFs Discharge Plan: Home Plan to discharge in: Greater than 2 days - Advance Directives Does patient have a Living Will: No Does patient have a Durable POA for Healthcare: Yes - Code Status/Comfort Care Code Status: Full Code Critical Care: No Time Spent Managing PTS Care (In Minutes): 35
--- NOTE | 2022-01-17 02:37 | P.DS ---
Discharge Date: 01/03/22 Disposition: DC HOME/HOME HEALTH CARE Discharge Condition: GOOD Reason for Admission: Dysuria - Problems (1) Urinary bladder disorder Status: Acute (2) Diabetes mellitus Onset Date: 08/12/18 Status: Acute (3) Hypertriglyceridemia Status: Acute (4) Parkinson disease Onset Date: 06/04/16 Status: Acute (5) UTI (urinary tract infection) Status: Acute Qualifiers: (6) HTN (hypertension) Onset Date: 08/12/18 Status: Chronic Qualifiers: Brief History of Present Illness: Pt is a 66 yrs old male presents to ER via EMS with complaints of issues with her urinary catheter - c/o diffuse lower abdominal pain-pus was noted at insertion site. Pt is presents with a Mckeon catheter problem, is leaking urine. Pt is also abdominal pain. Patient will be admitted to the hospital for further evaluation that Hospital Course: Patient has done well during hospital stay. Clinically, patient is much better. At this time, patient is stable for discharge home. Patient will follow-up with consultants and PCP as an outpatient. Vital Signs/Physical Exam: Temp Pulse Resp BP Pulse Ox 97.7 F 70 16 119/66 99 01/17/22 02:34 01/17/22 02:34 01/17/22 02:34 01/17/22 02:34 01/17/22 02:34 General: Alert, In no apparent distress, Oriented x3 Laboratory Data at Discharge: WBC 6.2 K/uL (4.3-10.9) D 01/02/22 03:23 Hgb 9.9 g/dL (13.6-17.9) L 01/02/22 03:23 Hct 29.7 % (39.6-49.0) L D 01/02/22 03:23 Plt Count 92 K/uL (152-406) L D 01/02/22 03:23 PT 13.3 SECONDS (9.5-12.5) H 01/01/22 10:28 INR 1.20 01/01/22 10:28 Sodium 142 mmol/L (136-145) 01/02/22 03:23 Potassium 4.0 mmol/L (3.5-5.1) 01/02/22 03:23 BUN 13 mg/dL (7-18) 01/02/22 03:23 Creatinine 0.74 mg/dL (0.55-1.3) 01/02/22 03:23 Glucose 100 mg/dL (74-106) 01/02/22 03:23 Magnesium 1.7 mg/dL (1.8-2.4) L 01/01/22 10:28 Total Bilirubin 0.2 mg/dL (0.2-1.0) 01/02/22 03:23 AST 23 U/L (15-37) 01/02/22 03:23 ALT 14 U/L (12-78) 01/02/22 03:23 Alkaline Phosphatase 87 U/L (45-117) 01/02/22 03:23 Lipase 80 U/L (73-393) 01/01/22 10:28 Home Medications: Sotalol HCl [Betapace*] 80 mg PO DAILY 08/12/18 Atorvastatin Calcium [Lipitor] 80 mg PO DAILY #30 tablet 08/13/18 Metformin HCl [Metformin HCl ER] 1 tab PO BID 11/14/20 buprenorphine HCL [Buprenorphine HCl] 8 mg SL Q8HR 11/14/20 clonazePAM [Clonazepam] 1 mg PO BID 11/14/20 Pantoprazole [Protonix Tab*] 40 mg PO DAILY #40 tab 11/15/20 Ascorbic Acid [Vitamin C] 1 tab PO DAILY 09/13/21 Aspirin 1 tab PO DAILY 09/13/21 Cyanocobalamin (Vitamin B-12) [Vitamin B-12] 1 tab PO DAILY 09/13/21 Insulin Detemir [Levemir Flextouch] 20 unit SQ BID 09/13/21 Iron 65 mg PO DAILY 09/13/21 Memantine HCl [Namenda] 10 mg PO BID 09/13/21 Venlafaxine HCl [Venlafaxine HCl ER] 150 mg PO DAILY 12/23/21 Levofloxacin [Levaquin] 500 mg PO DAILY #12 tablet 12/24/21 Physician Discharge Instructions: -DC IV and DC home -Follow-up with PCP in 1 to 2 weeks -Please call Dr. Byrd at [phone] if any questions regarding hospital stay -Please call nursing station at [phone] if any nursing or medication questions -Return to the emergency room if symptoms worsen Diet: Regular Activity: Fall precautions Followup: Bryant Loera, DO [Primary Care Provider] - (Call to schedule appointment) Time spent managing pt's care (in minutes): 35
== END 2022-01-03 17:10 | disposition home health service (06) | DRG 690 ==
LOC: ER 10:27 → ERHOLD 15:49 → 2ND 16:58
PROVIDERS: ADMIT Hospitalist; ATTEND Hospitalist
DX: N39.0 Urinary tract infection, site not specified (principal); E11.9 Type 2 diabetes mellitus without complications; K21.9 Gastro-esophageal reflux disease without esophagitis; I10 Essential (primary) hypertension; I48.91 Unspecified atrial fibrillation; E78.1 Pure hyperglyceridemia; G20 Parkinson's disease; N40.0 Benign prostatic hyperplasia without lower urinary tract symptoms; N32.9 Bladder disorder, unspecified; Z96.643 Presence of artificial hip joint, bilateral; Z96.651 Presence of right artificial knee joint; Z85.528 Personal history of other malignant neoplasm of kidney; Z86.73 Personal history of transient ischemic attack (TIA), and cerebral infarction without residual deficits; Z96.0 Presence of urogenital implants; Z20.822 Contact with and (suspected) exposure to COVID-19
CPT/HCPCS: 36415; 71045; 74176; 76377; 80048; 80053; 80076; 81003; 82947; 83605; 83690; 83735; 83880; 84145; 84484; 85025; 85610; 87086; 87088; 93005; 96361; 96365; 97161; 99285; J3475; J7030; J7040; U0003

== ENCOUNTER 2022-03-14 14:45 | Observation (INO) | payer OTHER ==
--- OUTSIDE RECORDS SUMMARY | 2022-03-14 14:54 | XMS REPORT | Continuity of Care Document ---
:1955 Author Organization [facility] t Address [address] [place] [address] Care Team Providers Name Role Phone Bryant Loera DO Primary Care Physician [phone] Bryant Loera Attending Clinician Unavailable Trever Calvillo Attending Clinician Unavailable TRUMAN STARKEY Attending Clinician Unavailable TRUMAN STARKEY Attending Clinician Unavailable Angel Khalil MD Attending Clinician SAWYER COLIN Attending Clinician Unavailable NANCI FOSTER Attending Clinician Unavailable Laz Lock MD Attending Clinician Doctor Unassigned, Kiel Attending Clinician Unavailable BETTYE JETER Attending Clinician Unavailable Lisseth RN, Niya Attending Clinician Unavailable Frantz IGNACIO, Elsa Martini Attending Clinician Rosalie IGNACIO, Jaclyn Attending Clinician Linda IGNACIO, Etta Attending Clinician Corona NARVAEZ, Bettye Nelson Attending Clinician CHELLY NOLAN Attending Clinician Unavailable Teresa IGNACIO, Arvind Herrera Attending Clinician Clyde Pacheco MD, Enoch Attending Clinician Jalen IGNACIO, Madelyn Morales Attending Clinician [phone] [facility] Attending Clinician Unavailable Etta Mckeon MD Admitting Clinician CHELLY NOLAN Admitting Clinician Unavailable KNOW, DOES_NOT Admitting Clinician Unavailable Payers Payer Name Policy Type Policy Number Effective Date Expiration Date [facility] [id number] 2017 MEDICARE GOLD 00:00:00 MEDICARE PART A \\T\\ [id number] B - MEDICARE WELLMED DUAL [id number] COMPLETE SNP [facility] MEDIGAP-GENERIC - [id number] GENERIC PAYOR [facility] SECURE [id number] 2021 HORIZONS 00:00:00 Problems Condition Condition Condition Status Onset Resolution Last Treating Co mments Source Name Details Category Date Date Treatment Clinician Date Other Other Disease Active Univers constipati constipati 7-24 it y of on on 00:00: [place] 00 Medical Branch Fever due Fever due Disease Active Uni vers to to 7-23 [place] Urinary Urinary Disease Active Univers tract tract 6-11 [place] 00 [facility] ESBL ESBL Branch Klebsiella Klebsiella UTI UTI Disease Active 2021-0 Univers (urinary (urinary 6-11 ity of tract tract 00:00: [place] infection) infection) 00 Me dical Branch Cervical Cervical Disease Active [facility] di disc disc - st disease disease 00:00: [facility] 00 l Lumbar Lumbar Disease Active Methodi disc disc - st disease disease 00:00: [facility] 00 l Fever, Fever, Disease Active Univers unknown unknown 2-19 ity of origin origin 00:00: [place] [facility] Bradycardi Bradycardi Disease Active M ethodi a a 12-08 st 00:00: [facility]ospita 00 l Acidosis Acidosis Disease Active Metho di 12-08 st 00:00: [facility] 00 l 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 00:00: Ho spita sm sm 00 l Parkinson' Parkinson' Disease Active U nivers s disease s disease 6-02 ity of 00:00: [place] [facility] Hypotensio Hypotensio Disease Active U nivers n n 5-30 ity of 00:00: [place] [facility] Right Right Disease Active Univers wrist wrist 4-08 ity of injury injury 00:00: [place] [facility] DM DM Disease Active Univers (diabetes (diabetes 1-25 ity of mellitus) mellitus) 00:[place] [facility] [place] CHAPO on CHAPO on Disease Active Univers CPAP CPAP 1-25 ity of 00:00: [place] [facility] Chest pain Chest pain Disease Active U nivers 1-23 ity of 00:00: [place] [facility] SOB SOB Disease Active Univers (shortness (shortness 8-28 it y of of breath) of breath) [place] [facility] [place] Dyspnea Dyspnea Disease Active Overview: Univ ers and and 822 Formattin ity of respirator respirator 00:00: g of this [place] y y note Medical abnormalit abnormalit might be Branch y y different from the original. 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 Surgical Surgical Disease Active 2008-08 Unive rs aftercare, aftercare, 2-31 it y of musculoske musculoske [place] letal [facility] system system Branch GERD GERD Disease Active 2008-08 Univers (gastroeso (gastroeso 2-31 it y of phageal phageal 00:00: [place] reflux reflux 00 Medical disease) disease) Branch Other Other Disease Active Univers voice and voice and 5-22 ity of resonance resonance 00:[place] disorders disorders 00 Medi maria esther Branch Other Other Disease Active Univers voice and voice and 5-22 [place] of resonance resonance 00:[place] disorders 00 [facility] maria esther Branch Enlarged Enlarged Disease Active Overview: Un bib prostate prostate 12-07 Formattin ity of without without 00:00: g of this [place] lower lower 00 note Medical urinary urinary might be Branch tract tract different symptoms symptoms from the (luts) (luts) original. 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 renal renal might be Branch pelvis pelvis different from the original. left nephrecto my in [id number] Diagnosis Term Systems Design Engineer Utility Essential Essential Disease Active Overview: Univers hypertensi hypertensi Formattin ity of on on g of this [place] note Medical might be Branch different from the original. 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 back surgeries in , [id number] Diagnosis Term Systems Design Engineer Utility Hip joint Hip joint Disease Active Overview: Univers replacemen replacemen Formattin ity of t by other t by other g of this [place] means means note Medical might be Branch different from the original. B/L Asbestosis Asbestosis Disease Active Overview : Univers Formattin ity of g of this [place] note Medical might be Branch different from the original. 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 HLD HLD Disease Active Overview: Univer s (hyperlipi (hyperlipi Formattin ity of demia) demia) g of this [place] note Medical might be Branch different from the original. 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 ity of pa adverse 00:00: [place] reaction 00 Medical s Branch CARBIDOP DRUG Active Other-Cmnt Univ ers A-LEVODO 03-25 ity of PA 00:00: [place] [facility] No Known DA Active U 2011-08 [facility] 0[facility]03 Clear Allergie 00:00: [place] s 00 [facility] No Known DA Active U 2011-08 [facility] 0-03 Clear Allergie 00:00: [place] 00 [facility] NO KNOWN Allergy Active [facility] Social History Social Habit Start Date Stop Date Quantity Comments Source History of Cigarette Smoker Universi ty of tobacco use [place] [facility] Exposure to Not sure University of SARS-CoV-2 [place] Medical (event) Branch History SDOH University o f Alcohol Frequency [facility] edical Branch History SDOH University o f Alcohol Std [place] [facility] Drinks Branch History [facility] University o f Alcohol Binge [place] Medic al Branch Tobacco use and 2021-09-10 2021-09-10 Former smokeless [facility] of exposure 00:00:00 00:00:00 tobacco user Medicine Cigarette 2021-09-10 2021-09-10 [facility] of pack-years 00:00:00 00:00:00 Medicine Alcohol intake 2019-08-22 2019-08-22 Current Islam 00:00:00 00:00:00 non-drinker of Hospital alcohol (finding) Alcohol Comment 2008-12-04 2008-12-04 once per month Unive rsity of 00:00:00 00:00:00 [facility] Tobacco Comment 2008-11-22 2008-11-22 states smoked Univer sity of 00:00:00 00:00:00 occasionly for Judah mayo about 3 years Branch Sex Ass[birth year] [facility] Co llege of 00:00:00 00:00:00 Medicine Smoking Status Start Date Stop Date Source Ex-smoker 2021-09-10 00:00:00 2021-09-10 00:00:00 [facility] Edilberto kaufman of Medicine Never smoker [facility] Medications Ordered Filled Start Stop Current Ordering Indication Dosage Frequency Signature Comments Components Source Medication Medication Date Date Medication? Clinician (SIG) Name Name amoxicillin Yes amoxicilli [facility] (AMOXIL) 5-27 n 500 mg College 500 mg 14:15: capsule of capsule 03 Medicin e metformin Yes 500mg Take 500 Vaughn rachel (GLUCOPHAGE 5-27 mg by [place] ) 500 MG 14:13: mouth of tablet 58 daily. Medicin e clonazepam Yes 1mg Take 1 mg [facility] (KLONOPIN) 5-27 by mouth Colle ge 1 MG tablet 14:13: daily. of 58 Medicin e venlafaxine Yes 75mg Take 75 mg [facility] (EFFEXOR-XR 5-27 by mouth Alyssa ege ) 75 MG XR 14:13: daily. of capsule 58 Medicin e clopidogrel Yes 75mg Take 75 mg [facility] (PLAVIX) 75 5-27 by mouth Alyssa ege MG Tablet 14:13: daily. of 58 Medicin e indomethaci Yes 25mg Take 25 mg [facility] n (INDOCIN) 5-27 by mouth 3 Co llege 25 MG 14:13: times of capsule 58 daily. Medicin e Aspirin 81 0 Yes 81mg Take 81 mg B aylor MG tablet 5-27 by mouth Colleg e 14:13: once. of 58 Medicin e Cyanocobala Yes Take by Vaughn rachel min (B-12) 5-27 mouth. College 2500 MCG 14:13: of TABS 58 Medicin e Ascorbic Yes Take by [facility] Acid 5-27 mouth. College (VITAMIN C) 14:13: of 500 MG CAPS 58 Medicin e Ferrous 0 Yes Take by Jaren Sulfate -27 mouth. [place] (IRON) 325 14:13: of (65 Fe) MG 58 Medicin TABS e Insulin 2021-0 Yes 20U Inject 20 Bay[facility] r Detemir 5-27 Units into Colleg e (LEVEMIR 14:13: the skin. of SC) 58 Medicin e Aspirin 0 Yes 81mg Take 81 mg Bayl or (ASPIR-LOW) 2-09 by mouth Alyssa ege 81 MG 13:58: once. of tablet 52 Medicin e Cyanocobala Yes Take by Vaughn rachel min (B-12) 2-09 mouth. [place] 2500 MCG 13:58: of TABS 52 Medicin e Ascorbic 0 Yes Take by [facility] Acid 2- mouth. [place] (VITAMIN C) 13:58: of 500 MG CAPS 52 Medicin e Ferrous Yes Take by Jaren Sulfate 2-09 mouth. [place] (IRON) 325 13:58: of (65 Fe) MG 52 Medicin TABS e Insulin 0 Yes 20U Inject 20 Baylo r Detemir 2-09 Units into Colleg e (LEVEMIR 13:58: the skin. of SC) 52 Medicin e metformin Yes 500mg Take 500 Vaughn rachel (GLUCOPHAGE 2-09 mg by [place] ) 500 MG 13:58: mouth of tablet [...] clopidogrel 0 Yes 75mg Take 75 mg [facility] (PLAVIX) 75 2-09 by mouth Alyssa ege MG Tablet 13:58: daily. of 52 Medicin e indomethaci 0 Yes 25mg Take 25 mg [facility] n (INDOCIN) 2-09 by mouth 3 Co llege 25 MG 13:58: times of capsule 52 daily. Medicin e Buprenorphi Yes 8mg Take 8 mg B aylor ne HCl 8 MG 1-19 by mouth Alyssa ege SUBL 00:00: every 8 of 00 hours as Medicin needed. e Buprenorphi Yes 8mg Take 8 mg [...] atorvastati 2020-08 Yes 80mg Take 80 mg [facility] n (LIPITOR) 2-13 by mouth Alyssa ege 80 MG 00:00: daily. of tablet 00 Medicin e AMLODIPINE 2020-08 Yes TAKE 1 Unive rs 10 mg 1-26 TABLET BY ity of tablet 00:00: MOUTH [place] DAILY Medical Branch AMLODIPINE 2020-08 Yes TAKE 1 Unive rs 10 mg 1-26 TABLET BY ity of tablet 00:00: MOUTH [place] DAILY Medical Branch PANTOPRAZOL 2020-08 Yes [id number] 40mg TAKE 1 Univers E 40 mg EC 0-11 TABLET BY ity of tablet 00:00: MOUTH [place] DAILY Medical Branch PANTOPRAZOL 2020-08 Yes [id number] 40mg TAKE 1 Univers E 40 mg EC 0-11 TABLET BY ity of tablet 00:00: MOUTH [place] DAILY Medical Branch PANTOPRAZOL 2020-08 Yes [id number] 40mg TAKE 1 Univers E 40 mg EC 0-11 TABLET BY ity of tablet 00:00: MOUTH [place] DAILY Medical Branch memantine Yes 10mg Take [...] 1000mL at 999 Uni vers (NS) bolus 8-31 08-31 mL/hr, ity of infusion 05:30: 05:30 1,000 mL, Dante as 1,000 mL 00 :00 IV Medical Infusion, Branch ONCE, 1 dose, 04/01/21 at 0030, STAT NaCl 0.9% 2020- No 1000mL at 999 Uni vers (NS) bolus 8-31 08-31 mL/hr, ity of infusion 05:30: 05:30 1,000 mL, Dante as 1,000 mL 00 :00 IV Medical Infusion, Branch ONCE, 1 dose, 04/01/21 at 0030, STAT NaCl 0.9% 0 2020- No 500mL at 999 Univ ers (NS) bolus 8-31 08-31 mL/hr, 500 it y of infusion 02:15: 02:55 mL, IV [place] 500 mL 00 :00 Piggyback, Medical ONCE, 1 Branch dose, 03/31/21 at 2115, STAT NaCl 0.9% 0 2020- No 500mL at 999 Univ ers (NS) bolus 8-31 08-31 mL/hr, 500 it y of infusion 02:15: 02:55 mL, IV [place] 500 mL 00 :00 Piggyback, Medical ONCE, 1 Branch dose, 03/31/21 at 2115, STAT amLODIPine 2020- No [id number] 10mg Take 1 Univers 10 mg 7-29 10-28 tablet by ity of tablet 00:00: 04:59 mouth [place] 00 :00 daily for Medical 90 days. Branch amLODIPine 2020-2020- No [id number] 10mg Take 1 Univers 10 mg 7-29 10-28 tablet by ity of tablet 00:00: 04:59 mouth [place] 00 :00 daily for Medical 90 days. Branch amLODIPine 2020- No [id number] 10mg Take 1 Univers 10 mg 7-29 10-28 tablet by ity of tablet 00:00: 04:59 mouth [place] 00 :00 daily for Medical 90 days. Branch amLODIPine 2020- No [id number] 10mg Take 1 Univers 10 mg 7-29 10-28 tablet by ity of tablet 00:00: 04:59 mouth [place] 00 :00 daily for Medical 90 days. Branch amLODIPine 0 2020- No [id number] 10mg Take 1 Univers 10 mg 7-29 10-28 tablet by ity of tablet 00:00: 04:59 mouth [place] 00 :00 daily for Medical 90 days. Branch amLODIPine 2020- No [id number] 10mg Take 1 Univers 10 mg 7-29 10-28 tablet by ity of tablet 00:00: 04:59 mouth [place] 00 :00 daily for Medical 90 days. Branch gabapentin Yes 600mg Take 600 Un bib 300 mg 7-28 mg by ity of capsule 23:25: mouth 3 [place] 24 (three) Medical times Branch daily. venlafaxine Yes 112.5mg Take 112.5 Univers XR 37.5 mg 7-28 mg by ity of 24 hr 23:25: mouth [place] capsule 24 daily with Medica l breakfast. Branch baclofen 5 Yes 10mg Take 10 mg U nivers mg tablet 7-28 by mouth 2 ity of 23:25: (two) [place] 24 times Medical daily as Branch needed (back pain). insulin Yes 20U inject 20 Unive rs detemir 7-28 Units ity of (LEVEMIR 23:25: under the [facility] U-100 24 skin 2 Medical INSULIN SC) (two) Branch times daily before breakfast and dinner. atorvastati Yes 80mg Take 80 mg Univers n 80 mg 7-28 by mouth ity of tablet 23:25: at [place] [address] bedtime. Medical Branch metFORMIN Yes 500mg Take 500 Uni vers 500 mg 7-28 mg by ity of tablet 23:25: mouth 2 [place] 24 (two) Medical times Branch daily with meals. clopidogreL 0 Yes 75mg Take 75 mg Univers (PLAVIX) 75 7-28 by mouth ity of mg tablet 23:25: daily. [place] 24 Medical Branch gabapentin 2020-0 Yes 600mg Take 600 Un bib 300 mg 7-28 mg by ity of capsule 23:25: mouth 3 [place] 24 (three) Medical times Branch daily. venlafaxine 2020-0 Yes 112.5mg Take 112.5 Univers XR 37.5 mg 7-28 mg by ity of 24 hr 23:25: mouth [place] capsule 24 daily with Medica l breakfast. Branch baclofen 5 0 Yes 10mg Take 10 mg U nivers mg tablet 7-28 by mouth 2 ity of 23:25: (two) [place] 24 times Medical daily as Branch needed (back pain). insulin 2020-0 Yes 20U inject 20 Unive rs detemir 7-28 Units ity of (LEVEMIR 23:25: [facility] skin 2 Medical INSULIN SC) (two) Branch times daily before breakfast and dinner. atorvastati 0 Yes 80mg Take 80 mg Univers n 80 mg 7-28 by mouth ity of tablet 23:25: at [place] [address] bedtime. Medical Branch metFORMIN 0 Yes 500mg Take 500 Uni vers 500 mg 7-28 mg by ity of tablet 23:25: mouth 2 [place] 24 (two) Medical times Branch daily with meals. clopidogreL 0 Yes 75mg Take 75 mg Univers (PLAVIX) 75 7-28 by mouth ity of mg tablet 23:25: daily. [place] [address] Medical Branch gabapentin 2020-0 Yes 600mg Take 600 Un bib 300 mg 7-28 mg by ity of capsule 23:25: mouth 3 [place] 24 (three) Medical times Branch daily. venlafaxine Yes 112.5mg Take 112.5 Univers XR 37.5 mg 7-28 mg by ity of 24 hr 23:25: mouth [place] capsule 24 daily with Medica l breakfast. Branch baclofen 5 0 Yes 10mg Take 10 mg U nivers mg tablet 7-28 by mouth 2 ity of 23:25: (two) [place] 24 times Medical daily as Branch needed (back pain). insulin 2020-0 Yes 20U inject 20 Unive rs detemir 7-28 Units ity of (LEVEMIR 23:25: under the [place] U-100 24 skin 2 Medical INSULIN SC) (two) Branch times daily before breakfast and dinner. atorvastati 2020-0 Yes 80mg Take 80 mg Univers n 80 mg 7-28 by mouth ity of tablet 23:25: at [place] [address] bedtime. Medical Branch metFORMIN 0 Yes 500mg Take 500 Uni vers 500 mg 7-28 mg by ity of tablet 23:25: mouth 2 [place] [address] (two) Medical times Branch daily with meals. clopidogreL 2020-0 Yes 75mg Take 75 mg Univers (PLAVIX) 75 7-28 by mouth ity of mg tablet 23:25: daily. [place] [address] Medical Branch gabapentin 0 Yes 600mg Take 600 Un bib 300 mg 7-28 mg by ity of capsule 23:25: mouth 3 [place] [address] (three) Medical times Branch daily. venlafaxine 0 Yes 112.5mg Take 112.5 Univers XR 37.5 mg 7-28 mg by ity of 24 hr 23:25: mouth [place] capsule 24 daily with Medica l breakfast. Branch baclofen 5 Yes 10mg Take 10 mg U nivers mg tablet 7-28 by mouth 2 ity of 23:25: (two) [place] [address] times Medical daily as Branch needed (back pain). insulin 0 Yes 20U inject 20 Unive rs detemir 7-28 Units ity of (LEVEMIR 23:25: under the [place] U-100 24 skin 2 Medical INSULIN SC) (two) Branch times daily before breakfast and dinner. atorvastati 0 Yes 80mg Take 80 mg Univers n 80 mg 7-28 by mouth ity of tablet 23:25: at [place] [address] bedtime. Medical Branch metFORMIN 0 Yes 500mg Take 500 Uni vers 500 mg 7-28 mg by ity of tablet 23:25: mouth 2 [place] [address] (two) Medical times Branch daily with meals. clopidogreL 0 Yes 75mg Take 75 mg Univers (PLAVIX) 75 7-28 by mouth ity of mg tablet 23:25: daily. [place] [address] Medical Branch gabapentin 2020-0 Yes 600mg Take 600 Un bib 300 mg 7-28 mg by ity of capsule 23:25: mouth 3 [place] [address] (three) Medical times Branch daily. venlafaxine 2020-0 Yes 112.5mg Take 112.5 Univers XR 37.5 mg 7-28 mg by ity of 24 hr 23:25: mouth [place] capsule 24 daily with Medica l breakfast. Branch baclofen 5 2021-0 Yes 10mg Take 10 mg U nivers mg tablet 7-28 by mouth 2 ity of 23:25: (two) [place] [address] times Medical daily as Branch needed (back pain). insulin Yes 20U inject 20 Unive rs detemir 7-28 Units ity of (LEVEMIR 23:25: under the [place] U-100 24 skin 2 Medical INSULIN SC) (two) Branch times daily before breakfast and dinner. atorvastati Yes 80mg Take 80 mg Univers n 80 mg 7-28 by mouth ity of tablet 23:25: at [place] [address] bedtime. Medical Branch metFORMIN Yes 500mg Take 500 Uni vers 500 mg 7-28 mg by ity of tablet 23:25: mouth 2 [place] [address] (two) Medical times Branch daily with meals. clopidogreL Yes 75mg Take 75 mg Univers (PLAVIX) 75 7-28 by mouth ity of mg tablet 23:25: daily. [place] [address] Medical Branch gabapentin Yes 600mg Take 600 Un bib 300 mg 7-28 mg by ity of capsule 18:25: mouth 3 [place] 24 (three) Medical times Branch daily. venlafaxine Yes 112.5mg Take 112.5 Univers XR 37.5 mg 7-28 mg by ity of 24 hr 18:25: mouth [facility] 24 daily with Medica l breakfast. Branch baclofen 5 Yes 10mg Take 10 mg U nivers mg tablet 7-28 by mouth 2 ity of 18:25: (two) [place] 24 times Medical daily as Branch needed (back pain). insulin Yes 20U inject 20 Unive rs detemir 7-28 Units ity of (LEVEMIR 18:25: [facility] skin 2 Medical INSULIN SC) (two) Branch times daily before breakfast and dinner. atorvastati Yes 80mg Take 80 mg Univers n 80 mg 7-28 by mouth ity of tablet 18:25: at [place] [address] bedtime. Medical Branch metFORMIN Yes 500mg Take 500 Uni vers 500 mg 7-28 mg by ity of tablet 18:25: mouth 2 [place] 24 (two) Medical times Branch daily with meals. clopidogreL 0 Yes 75mg Take 75 mg Univers (PLAVIX) 75 7-28 by mouth ity of mg tablet 18:25: daily. [place] [address] Medical Branch gabapentin Yes 600mg Take 600 Un bib 300 mg 7-28 mg by ity of capsule 18:25: mouth 3 [place] 24 (three) Medical times Branch daily. venlafaxine Yes 112.5mg Take 112.5 Univers XR 37.5 mg 7-28 mg by ity of 24 hr 18:25: mouth [place] capsule 24 daily with Medica l breakfast. Branch baclofen 5 Yes 10mg Take 10 mg U nivers mg tablet 7-28 by mouth 2 ity of 18:25: (two) [place] 24 times Medical daily as Branch needed (back pain). insulin Yes 20U inject 20 Unive rs detemir 7-28 Units ity of (LEVEMIR 18:25: [place] the [place] U-100 24 skin 2 Medical INSULIN SC) (two) Branch times daily before breakfast and dinner. atorvastati Yes 80mg Take 80 mg Univers n 80 mg 7-28 by mouth ity of tablet 18:25: at [place] [address] bedtime. Medical Branch metFORMIN Yes 500mg Take 500 Uni vers 500 mg 7-28 mg by ity of tablet 18:25: mouth 2 [place] [address] (two) Medical times Branch daily with meals. clopidogreL Yes 75mg Take 75 mg Univers (PLAVIX) 75 7-28 by mouth ity of mg tablet 18:25: daily. [place] [address] Medical Branch gabapentin Yes 600mg Take 600 Un bib 300 mg 7-28 mg by ity of capsule 18:25: mouth 3 [place] 24 (three) Medical times Branch daily. venlafaxine Yes 112.5mg Take 112.5 Univers XR 37.5 mg 7-28 mg by ity of 24 hr 18:25: mouth [place] capsule 24 daily with Medica l breakfast. Branch baclofen 5 Yes 10mg Take 10 mg U nivers mg tablet 7-28 by mouth 2 ity of 18:25: (two) [place] 24 times Medical daily as Branch needed (back pain). insulin 0 Yes 20U inject 20 Unive rs detemir 7-28 Units ity of (LEVEMIR 18:25: under the [place] U-100 24 skin 2 Medical INSULIN SC) (two) Branch times daily before breakfast and dinner. atorvastati Yes 80mg Take 80 mg Univers n 80 mg - by mouth ity of tablet 18:25: at [place] [address] bedtime. Medical Branch metFORMIN Yes 500mg Take 500 Uni vers 500 mg 7-28 mg by ity of tablet 18:25: mouth 2 [place] 24 (two) Medical times Branch daily with meals. clopidogreL Yes 75mg Take 75 mg Univers (PLAVIX) 75 - by mouth ity of mg tablet 18:25: daily. [place] [address] Medical Branch desipramine 2020- No 10mg Take [...] 80mg Take 80 mg Uni vers (SOTALOL 02-26- by mouth ity of AF) 80 mg [...] 0900, Until Discontinu ed, Routine sennosides Yes [id number] 8.6mg Take 1 Univers 8.6 mg - tablet by ity of tablet 00:00: mouth 2 [place] 00 (two) Medical times Branch daily. polyethylen Yes [id number] 17g Take 1 Univers e glycol 7-28 Packet by ity of 3350 17 00:00: mouth 2 [place] gram powder 00 (two) Medical times Branch daily. pantoprazol Yes [id number] 40mg Take 1 Univers e 40 mg EC 7-28 tablet by ity of tablet 00:00: mouth [place] 00 daily. Medical Branch bisacodyL Yes [id number] 10mg Insert 1 Univers 10 mg 7-28 Suppositor ity of suppository 00:00: y into [place] 00 rectum at Medical bedtime. Branch sennosides Yes [id number] 8.6mg Take 1 Univers 8.6 mg 7-28 tablet by ity of tablet 00:00: mouth 2 (two) Medical times Branch daily. polyethylen Yes [id number] 17g Take 1 Univers e glycol 7-28 Packet by ity of 3350 17 00:00: mouth 2 [place] gram powder 00 (two) Medical times Branch daily. pantoprazol Yes [id number] 40mg Take 1 Univers e 40 mg EC 7-28 tablet by ity of tablet 00:00: mouth [place] 00 daily. Medical Branch bisacodyL Yes [id number] 10mg Insert 1 Univers 10 mg 7-28 Suppositor ity of suppository 00:00: y [place] 00 rectum at Medical bedtime. Branch sennosides Yes [id number] 8.6mg Take 1 Univers 8.6 mg 7-28 tablet by ity of tablet 00:00: mouth 2 (two) Medical times Branch daily. polyethylen Yes [id number] 17g Take 1 Univers e glycol 7-28 Packet by ity of 3350 17 00:00: mouth 2 [place] gram powder 00 (two) Medical times Branch daily. pantoprazol Yes [id number] 40mg Take 1 Univers e 40 mg EC 7-28 tablet by ity of tablet 00:00: mouth [place] 00 daily. Medical Branch bisacodyL Yes [id number] 10mg Insert 1 Univers 10 mg 7-28 Suppositor [place]y of suppository 00:00: [place] 00 rectum at Medical bedtime. Branch sennosides Yes [id number] 8.6mg Take 1 Univers 8.6 mg 7-28 tablet by ity of tablet 00:00: mouth 2 (two) Medical times Branch daily. polyethylen Yes [id number] 17g Take 1 Univers e glycol 7-28 Packet by ity of 3350 17 00:00: mouth 2 [place] gram powder 00 (two) Medical times Branch daily. pantoprazol Yes [id number] 40mg Take 1 Univers e 40 mg EC 7-28 tablet by ity of tablet 00:00: mouth [place] 00 daily. Medical Branch bisacodyL Yes [id number] 10mg Insert 1 Univers 10 mg 7-28 Suppositor [place]y of suppository 00:00: [place] 00 rectum at Medical bedtime. Branch sennosides Yes [id number] 8.6mg Take 1 Univers 8.6 mg 7-28 tablet by ity of tablet 00:00: mouth 2 (two) Medical times Branch daily. polyethylen Yes [id number] 17g Take 1 Univers e glycol 7-28 Packet by ity of 3350 17 00:00: mouth 2 [place] gram powder 00 (two) Medical times Branch daily. pantoprazol Yes [id number] 40mg Take 1 Univers e 40 mg EC 7-28 tablet by ity of tablet 00:00: mouth 00 daily. Medical Branch bisacodyL Yes [id number] 10mg Insert 1 Univers 10 mg 7-28 Suppositor ity of suppository 00:00: y [place] 00 rectum at Medical bedtime. Branch sennosides Yes [id number] 8.6mg Take 1 Univers 8.6 mg 7-28 tablet by ity of tablet 00:00: mouth 2 (two) Medical times Branch daily. polyethylen Yes [id number] 17g Take 1 Univers e glycol 7-28 Packet by ity of 3350 17 00:00: mouth 2 [place] gram powder 00 (two) Medical times Branch daily. bisacodyL Yes [id number] 10mg Insert 1 Univers 10 mg 7-28 Suppositor ity of suppository 00:00: y [place] 00 rectum at Medical bedtime. Branch sennosides Yes [id number] 8.6mg Take 1 Univers 8.6 mg 7-28 tablet by ity of tablet 00:00: mouth 2 [place] 00 (two) Medical times Branch daily. polyethylen Yes [id number] 17g Take 1 Univers e glycol 7-28 Packet by ity of 3350 17 00:00: mouth 2 [place] gram powder 00 (two) Medical times Branch daily. bisacodyL Yes [id number] 10mg Insert 1 Univers 10 mg 7-28 Suppositor ity of suppository 00:00: y [place] 00 rectum at Medical bedtime. Branch sennosides Yes [id number] 8.6mg Take 1 Univers 8.6 mg 7-28 tablet by ity of tablet 00:00: mouth 2 [place] 00 (two) Medical times Branch daily. polyethylen Yes [id number] 17g Take 1 Univers e glycol 7-28 Packet by ity of 3350 17 00:00: mouth 2 [place] gram powder 00 (two) Medical times Branch daily. bisacodyL Yes [id number] 10mg Insert 1 Univers 10 mg 7-28 Suppositor ity of suppository 00:00: y [place] 00 rectum at Medical bedtime. Branch pantoprazol 2020- No [id number] 40mg Take 1 Univers e 40 mg EC 7-28 10-11 tablet by ity of tablet 00:00: 00:00 mouth [place] 00 :00 daily. Medical Branch sulfamethox 2020- No [id number] 1{tbl} Take 1 Univers azole-trime 7-28 08-11 tablet by it y of thoprim 00:00: 04:59 mouth 2 [place] 800-160 mg 00 :00 (two) Medical per tablet times Branch daily for 13 days. sulfamethox 2020- No [id number] 1{tbl} Take 1 Univers azole-trime 7-28 08-11 tablet by it y of thoprim 00:00: 04:59 mouth 2 [place] 800-160 mg 00 :00 (two) Medical per tablet times Branch daily for 13 days. clonazePAM Yes .5mg 0.5 mg, [facility] ers (KLONOPIN) 02-25 Oral, ity of tablet 0.5 19:45: DAILY, [place] mg 00 First dose Medical on [facility] 02/25/21 at 1445, Until Discontinu ed, Routine amLODIPine No 5mg 5 mg, [facility] rs (NORVASC) 02-25 0727 Oral, ity of tablet 5 mg 19:41: 20:59 ONCE, 1 [place] 00 :[place] dose, [facility] 02/25/21 at Branch 1445, Routine clopidogreL Yes 75mg 75 mg, [facility] ers (PLAVIX) 02-25 Oral, ity of tablet 75 14:00: DAILY, [place] mg 00 First dose Medical on [facility] 02/25/21 at 0900, Until Discontinu ed, Routine insulin Yes 20U 20 Units, [facility] detemir 02-25 Subcutaneo ity of U-100 12:30: us, BIDAC, [place] (LEVEMIR 00 First dose Medic al U-100 on [facility] INSULIN) 02/25/21 at injection 0730, 20 Units Until Discontinu ed
Rest ricted - To be dispensed only to: Continuati on from home Sliding Yes Subcutaneo [facility] ers Scale 02-25 us, TID ity of Insulin - 02:00: MEALS+HS, [place] as Lispro 00 First dose Medical (HumaLOG) + (after [place] [facility] last Testing modificati on) on [facility] 02/24/21 at 2100, Until Discontinu ed, Routine atorvastati Yes 80mg 80 mg, [facility] ers n (LIPITOR) 02-25 Oral, QHS, it y of tablet 80 02:00: First dose [place] 00 on [facility] 02/24/21 at Branch 2100, Until Discontinu ed, Routine gabapentin Yes 600mg 600 mg, Uni vers (NEURONTIN) 02-25 Oral, TID, it y of capsule 600 01:00: First dose [place] mg 00 on [facility] 02/24/21 at Branch 2000, Until Discontinu ed, Routine sulfamethox Yes 1{tbl} 1 tablet, Univers azole-trime 02-25 Oral, BID, it y of thoprim 01:00: [place] (BACTRIM 00 on [facility] DS) 800-160 02/24/21 at Br anch mg per 2000, tablet 1 Until tablet Discontinu ed, EDIL
Re ason for Anti-Infec tive: Documented Infection< br>Documen elaine Infection Site: Urine
D uration of Therapy: 7 days baclofen Yes 10mg 10 mg, Univers (LIORESAL) 02-24 Oral, ity of tablet 10 22:29: BIDPRN, [place] mg [address] [facility] 02/24/21 at 1729, Until Discontinu ed, Routine, back pain famotidine 2020- No 20mg 20 mg, Univ ers (PEPCID AC) 02-24 Oral, ity of tablet 20 15:00: 14:19 ONCE, 1 [place] mg 00 :00 dose, [facility] 02/24/21 at Branch 1000, Routine amLODIPine 2020- No 5mg 5 mg, Unive rs (NORVASC) 02-24 Oral, ity of tablet 5 mg 14:00: 19:41 DAILY, [place] as 00 :51 First dose Medical on [facility] 02/24/21 at 0900, Until Discontinu ed, Routine bisacodyL Yes 10mg 10 mg, Univer s (DULCOLAX) 02-23 Rectal, ity of suppository 02:00: QHS, First [place] 10 mg 00 dose Medical (after Branch last modificati on) on [facility] 02/22/21 at 2100, Until Discontinu ed, Routine sennosides Yes 8.6mg 8.6 mg, Uni vers (SENOKOT) 02-21 Oral, BID, ity of tablet 8.6 21:30: First dose [place] mg 00 on [facility] 02/21/21 at Branch 1630, Until Discontinu ed, Routine polyethylen Yes 17g 17 g, Unive rs e glycol 02-21 Oral, BID, ity o f 3350 powder 21:30: First dose [place] 17 g 00 on Wed [facility] 02/21/21 at Branch 1630, Until Discontinu ed, Routine piperacilli 2020- No 3.375g 3.375 g, Univers n-tazobacta 02-21 IV ity of m (ZOSYN) 14:30: 20:43 Piggyback, [place] 3.375 00 :53 Q6H ABX, Medical gram/50 mL First dose [facility] Piggyback (after RTU 3.375 g last reorder) [...] Medica l (4 %) 2,000 dose, Wed [facility] mg 02/21/21 at piggyback 0915 pantoprazol Yes 40mg 40 mg, Univ ers e 02-21 Oral, ity of (PROTONIX) 14:00: DAILY, [place] EC tablet 00 First dose Medi maria esther 40 mg on Wed Branch 02/21/21 at 0900, Until Discontinu ed, Routine sennosides- 2020- No 1{tbl} 1 tablet, Univers docusate 02-21 Oral, ity of sodium 14:00: 14:06 DAILY, [place] (SENOKOT-S) 00 :29 First dose Me dical [...] ity of Insulin-Reg 12:30: 00:28 First dose [place] ular + Fsbg 00 :19 on Wed Medica l Testing 02/21/21 at [place] 0730, Until Discontinu ed, Routine acetaminoph Yes 650mg 650 mg, Un bib en 02-21 Oral, ity of (TYLENOL) 10:38: [place], [place] tablet 650 43 Starting Medic al mg [facility] 02/21/21 at 0538, Until Discontinu ed, Routine, Pain (scale 1-3), Temp > 38.5 C NaCl 0.9% 2020- No 1000mL at 999 Uni vers (NS) bolus 02-21 mL/hr, ity of infusion 10:15: 11:19 1,000 mL, [place] as 1,000 mL 00 :00 IV Medical [facility] ONCE, 1 dose, Wed02/21/21 at 0515, STAT cefTRIAXone 2020- No 1000mg 1,000 mg, Univers (ROCEPHIN) 02-21 IV ity of 1,000 mg in 10:02: 13:18 [place], [place] NaCl 0.9% 00 :11 Q24H ABX, Medic al (NS) 50 mL First dose [facility] MINI-BAG on Wed02/21/21 at 0515, Until Discontinu ed, 50 mL
R laura for Anti-Infec tive: Documented Infection< br>Documen elaine Infection Site: Urine<br&g t;Duration of Therapy: 14 days piperacilli 2020- No 3.375g 3.375 g, Univers n-tazobacta 02-21 IV ity of m (ZOSYN) 07:15: 07:40 Piggyback, [place] 3.375 g in 00 :00 ONCE, 1 Medica l NaCl 0.9% dose, Wed Branc h (NS) 100 mL 02/21/21 at MINI-BAG 0215, 100 mL
Reas on for Anti-Infec tive: Documented Infection< br>Documen elaine Infection Site: Urine
D uration of Therapy: Other (see Comments) NaCl 0.9% 2020- No 1000mL at 100 Uni vers (NS) IV 02-21 mL/hr, ity of infusion 07:00: 17:01 Intravenou [place] 1,000 mL 00 :20 s, Medical CONTINUOUS [place] , Starting Wed02/21/21 at 0200, Until Wed02/21/21 at 1201, Routine clindamycin 2020- No 600mg 600 mg, IV Univers (CLEOCIN) 02-21 Piggyback, ity of injection 03:15: 03:15 ONCE, 1 [place] 600 mg 00 :00 dose, [facility] 02/20/21 at Branch 2215, EDIL
Re ason for Anti-Infec tive: Documented Infection< br>Documen elaine Infection Site: Urine
D uration of Therapy: Other (see Comments)< br>Restric elaine use approved by: [employer] PROVIDER iopamidol 2020- No [id number] 120mL 120 mL, Univers (ISOVUE 02-21 Intravenou ity o f 370-500 mL) 02:33: 02:33 s, ONCE, 1 [place] injection 00 :00 dose, [facility] Medic al 120 mL 02/20/21 at Branch 2145, Routine NaCl 0.9% 2020- No 1000mL at 999 Uni vers (NS) bolus 02-21 mL/hr, ity of infusion 02:00: 05:10 1,000 mL, [place] 1,000 mL 00 :00 IV Medical [facility], [place] ONCE, 1 dose, [facility] 02/20/21 at 2100, STAT amLODIPine Yes [id number] 5mg Take 1 U nivers 5 mg tablet 6-18 tablet by ity of 00:00: mouth [place] 00 daily. [facility] Branch carvediloL Yes [id number] 12.5mg Take 1 Univers 12.5 mg 6-18 tablet by ity of tablet 00:00: mouth 2 [place] 00 (two) Medical times [place] daily with meals. NaCl 0.9% Yes [id number] 2000mg Infuse U nivers (NS) SolP 6-18 2,000 mg ity of 100 mL with 00:00: every 8 [place] ceFAZolin 00 (eight) Medical 10 gram hours. [place] SolR 2,000 mg clonazePAM Yes [id number] .5mg Take 1 Un bib 0.5 mg 6-18 tablet by ity of tablet 00:00: mouth (two) Medical times Branch daily as needed (anxiety). amLODIPine 2020-0 Yes [id number] 5mg Take 1 U nivers 5 mg tablet 6-18 tablet by ity of 00:00: mouth 00 daily. Medical Branch carvediloL 2020-0 Yes [id number] 12.5mg Take 1 Univers 12.5 mg 6-18 tablet by ity of tablet 00:00: mouth (two) Medical times Branch daily with meals. NaCl 0.9% 2020-0 Yes [id number] 2000mg Infuse U nivers (NS) SolP 6-18 2,000 mg ity of 100 mL with 00:00: every 8 [place] ceFAZolin 00 (eight) Medical 10 gram hours. Branch SolR 2,000 mg clonazePAM 2020-0 Yes [id number] .5mg Take 1 Un bib 0.5 mg 6-18 tablet by ity of tablet 00:00: mouth (two) Medical times Branch daily as needed (anxiety). amLODIPine 2020-0 Yes [id number] 5mg Take 1 U nivers 5 mg tablet 6-18 tablet by ity of 00:00: mouth 00 daily. Medical Branch carvediloL 2020-0 Yes [id number] 12.5mg Take 1 Univers 12.5 mg 6-18 tablet by ity of tablet 00:00: mouth (two) Medical times Branch daily with meals. NaCl 0.9% 2020-0 Yes [id number] 2000mg Infuse U nivers (NS) SolP 6-18 2,000 mg ity of 100 mL with 00:00: every 8 [place] ceFAZolin 00 (eight) Medical 10 gram hours. Branch SolR 2,000 mg clonazePAM 2020-0 Yes [id number] .5mg Take 1 Un bib 0.5 mg 6-18 tablet by ity of tablet 00:00: mouth (two) Medical times Branch daily as needed (anxiety). clonazePAM 1-0 Yes [id number] .5mg Take 1 Un bib 0.5 mg 6-18 tablet by ity of tablet 00:00: mouth (two) Medical times Branch daily as needed (anxiety). clonazePAM 2021-0 Yes [id number] .5mg Take 1 Un bib 0.5 mg 6-18 tablet by ity of tablet 00:00: mouth (two) Medical times Branch daily as needed (anxiety). clonazePAM 2021-0 Yes [id number] .5mg Take 1 Un bib 0.5 mg 6-18 tablet by ity of tablet 00:00: mouth (two) Medical times Branch daily as needed (anxiety). clonazePAM 2021-0 Yes [id number] .5mg Take 1 Un bib 0.5 mg 6-18 tablet by ity of tablet 00:00: mouth (two) Medical times Branch daily as needed (anxiety). clonazePAM 2021-0 Yes [id number] .5mg Take 1 Un bib 0.5 mg 6-18 tablet by ity of tablet 00:00: mouth (two) Medical times Branch daily as needed (anxiety). clonazePAM 2021-0 Yes [id number] .5mg Take 1 Un bib 0.5 mg 6-18 tablet by ity of tablet 00:00: mouth (two) Medical times Branch daily as needed (anxiety). clonazePAM 2021-0 Yes [id number] .5mg Take 1 Un bib 0.5 mg 6-18 tablet by ity of tablet 00:00: mouth (two) Medical times Branch daily as needed (anxiety). clonazePAM 2021-0 Yes [id number] .5mg Take 1 Un bib 0.5 mg 6-18 tablet by ity of tablet 00:00: mouth (two) Medical times Branch daily as needed (anxiety). amLODIPine 2021-0 Yes [id number] 5mg Take 1 U nivers 5 mg tablet 6-18 tablet by ity of 00:00: mouth 00 daily. Medical Branch carvediloL 2021-0 Yes [id number] 12.5mg Take 1 Univers 12.5 mg 6-18 tablet by ity of tablet 00:00: mouth (two) Medical times Branch daily with meals. NaCl 0.9% 2021-0 Yes [id number] 2000mg Infuse U nivers (NS) SolP 6-18 2,000 mg ity of 100 mL with 00:00: every 8 [place] ceFAZolin 00 (eight) Medical 10 gram hours. Branch SolR 2,000 mg clonazePAM Yes [id number] .5mg Take 1 Un bib 0.5 mg 6-18 tablet by ity of tablet 00:00: mouth 2 [place] 00 (two) Medical times Branch daily as needed (anxiety). amLODIPine 2020- No [id number] 5mg Take 1 Univers 5 mg tablet 01-17 tablet by it y of 00:00: 00:00 mouth [place] 00 :00 daily. Medical Branch carvediloL 2020- No [id number] 12.5mg Take 1 Univers 12.5 mg -16 02- tablet by ity of tablet 00:00: 00:00 mouth 2 [place] 00 :00 (two) Medical times Branch daily with meals. NaCl 0.9% 2020- No [id number] 2000mg Infuse Univers (NS) SolP 6-18 - 2,000 mg ity o f 100 mL with 00:00: 00:00 every 8 [place] ceFAZolin 00 :00 (eight) Medical 10 gram hours. Branch SolR 2,000 mg Humulin R Humulin R 2020-0 Yes [place] 5 units Common 8-07 [place] PRN for BG Spirit 00:00: >200 1 hr - [facility] [address] meals [facility] baclofen 2020-0 Yes [id number] 10mg Q.5D Take 1 Meth ivette (LIORESAL) 3-11 tablet (10 st 10 MG 00:00: mg total) Hospita tablet 00 by mouth 2 l (two) times a day. insulin 2020-0 Yes Q.5D Inject Methodi lispro 1-[address] (HumaLOG) 15:04: skin 2 Hospit a 100 unit/mL 33 (two) l injection times a day before meals. (PER SLIDING SCALE) gabapentin 2020-0 Yes 600mg Q.[id number] Take 600 [facility] (NEURONTIN) 1-21 [id number] mg by s t 600 mg 15:04: 3D mouth 3 Hospita tablet 33 (three) l times a day. tamsulosin 2020-0 Yes .4mg QD Take 0.4 Met hodi (FLOMAX) 1-[address] 0.4 mg 15:04: mouth Hospita capsule,ext 33 every l ended morning. release 24hr metFORMIN 2020-0 Yes 500mg Q.[id number] Take 500 [facility] (GLUCOPHAGE 1-21 [id number] mg by s t ) 500 mg [...] mg tablet, 00 day. l sublingual Pen [place] Pen [place] 2018-08 Yes [place] 1 pen Common 11 [place] needle Spirit 00:00: - [facility] 00 [facility] Lancets Lancets 2018- Yes [place] 1 lancet C ommon 11 [place] [facility] 00:00: - [facility] 00 [facility] desipramine 2018- Yes 10mg QD Take 10 mg [facility] (NOPRAMIN) [address] 10 MG 00:00: nightly. Hospita tablet 00 l sotalol 2018-0 Yes 80mg QD Take 80 mg Meth [...] Strips 00:00: glucose - [facility] 00 [facility] sertraline Yes 1{tbl} QD Take 1 Met hodi (ZOLOFT) 3-[address] 100 MG 00:00: mouth Hospita tablet 00 daily. l Blood Blood 2017-08 Yes [place] as Common Glucose Glucose 2-21 [place] directed Spir it Test Strip Test Strip 00:00: (DISPENSE - [facility] [address] STRIPS OF [facility]) [facility] ARIPiprazol Yes TK 1 T PO U nivers e 10 mg 2-09 QD ity of tablet 00:00: [place] [facility] ARIPiprazol Yes TK 1 T PO U nivers e 10 mg 2-09 QD ity of tablet 00:00: [place] [facility] ARIPiprazol Yes TK 1 T PO U nivers e 10 mg 2-09 QD ity of tablet 00:00: [place] [facility] ARIPiprazol Yes TK 1 T PO U nivers e 10 mg 2-09 QD ity of tablet 00:00: [place] [facility] ARIPiprazol Yes TK 1 T PO U nivers e 10 mg 2-09 QD ity of tablet 00:00: [place] [facility] ARIPiprazol Yes TK 1 T PO U [...] 00:00: [place] 00 Medical Branch ARIPiprazol 2017-0 2021- No TK 1 T PO Univers e 10 mg 2-09 07-28 QD ity of tablet 00:00: 00:00 [place] 00 :00 Medical Branch triamcinolo 2015-0 Yes [id number] Apply to Univers ne 3-05 area(s) 2 ity of acetonide 00:00: (two) [place] (TRIDERM) 00 times Medical 0.1 % cream daily. Branch triamcinolo Yes [id number] Apply to Univers ne 3-05 area(s) 2 ity of acetonide 00:00: (two) [place] (TRIDERM) 00 times Medical 0.1 % cream daily. Branch triamcinolo 2014- Yes [id number] Apply to Univers ne 3-05 area(s) 2 ity of acetonide 00:00: (two) [place] (TRIDERM) 00 times Medical 0.1 % cream daily. Branch triamcinolo 2014- Yes [id number] Apply to Univers ne 3-05 area(s) 2 ity of acetonide 00:00: (two) [place] (TRIDERM) 00 times Medical 0.1 % cream daily. Branch triamcinolo 2014- Yes [id number] Apply to Univers ne 3-05 area(s) 2 ity of acetonide 00:00: (two) [place] (TRIDERM) 00 times Medical 0.1 % cream daily. Branch triamcinolo 2014- Yes [id number] Apply to Univers ne 3-05 area(s) 2 ity of acetonide 00:00: (two) [place] (TRIDERM) 00 times Medical 0.1 % cream daily. Branch triamcinbryson Yes [id number] Apply to [facility] ne 3-05 area(s) 2 ity of acetonide 00:00: (two) [place] (TRIDERM) 00 times Medical 0.1 % cream daily. Victor Manuel triamcinbryson Yes [id number] Apply to [facility] ne 3-05 area(s) 2 ity of acetonide 00:00: (two) [place] (TRIDERM) 00 times Medical 0.1 % cream daily. Victor Manuel triamcinbryson Yes [id number] Apply to [facility] ne 3-05 area(s) 2 ity of acetonide 00:00: (two) [place] (TRIDERM) 00 times Medical 0.1 % cream daily. Victor Manuel triamcinbryson Yes [id number] Apply to [facility] 3-05 area(s) 2 ity of acetonide 00:00: (two) [place] (TRIDERM) 00 times Medical 0.1 % cream daily. Victor Manuel triamcinbryson Yes [id number] Apply to [facility] ne 3-05 area(s) 2 ity of acetonide 00:00: (two) [place] (TRIDERM) 00 times Medical 0.1 % cream daily. Victor Manuel galdamezamgiana 2021- No [id number] Apply to [place] [facility] ne 3-05 07-28 area(s) 2 ity of acetonide 00:00: 00:00 (two) [place] (TRIDERM) 00 :00 times Medical 0.1 % cream daily. Branch [id number] Yes [place] as C ommon [place] directed [facility] Aripiprazol Aripiprazol Yes [place] 1 tablet Common e e [place] Levemir Levemir Yes [place] 20 units Com mon FlexTouch FlexTouch [facility] Atorvastati Atorvastati Yes [place] 1 tablet Common n Calcium n Calcium [facility] Gemfibrozil Gemfibrozil Yes [place] 1 tablet Common [place] Baclofen Baclofen Yes [place] 1 tablet C ommon [place] with food Spirit or milk - [facility] Sotalol HCl Sotalol HCl Yes Bryant 1 tablet Common [place] [facility] Aspir-Low Aspir-Low Yes Bryant 1 tablet Common [place] [facility] MetFORMIN MetFORMIN Yes [place] 1 tablet Common HCl ER HCl ER [place] with Spirit evening - [facility] meal [facility] OneTouch OneTouch Yes [place] USE 1 Comm on Ultra Ultra [place] STRIP TO Spirit TEST BLOOD - [facility] GLUCOSE [facility] Venlafaxine Venlafaxine Yes [place] 1 capsule Common HCl ER HCl ER [place] with food [facility] Gabapentin Gabapentin Yes [place] as C ommon [place] directed [facility] Plavix Plavix Yes [place] TAKE 1 Common [place] TABLET BY Spirit MOUTH - [facility] DAILY [facility] MetFORMIN MetFORMIN Yes [place] TAKE 1 C ommon HCl ER HCl ER [place] TABLET BY Spiri MOUTH [facility] TWICE [facility] Indocin Indocin Yes [place] 1 capsule Co mmon [place] with food Spirit or milk [facility] Desipramine Desipramine Yes [place] 1 tablet Common HCl HCl [place] D3 Adult D3 Adult Yes [place] 1 tablet C ommon [place] [facility] Immunizations Ordered Filled Immunization Date Status Comments Sour e Immunization Name Name Pneumococcal 2011-08-31 Completed University o f Polysaccharide, 00:00:00 [place] Med ical PPSV23 (PNEUMOVAX) Branch Pneumococcal 2011-08-31 Completed University o f Polysaccharide, 00:00:00 [place] Med ical PPSV23 (PNEUMOVAX) Branch Pneumococcal 2011-08-31 Completed University o f Polysaccharide, 00:00:00 [place] Med ical PPSV23 (PNEUMOVAX) Branch Pneumococcal 2011-08-31 Completed University o f Polysaccharide, 00:00:00 [place] Med ical PPSV23 (PNEUMOVAX) Branch Pneumococcal 2011-08-31 Completed University o f Polysaccharide, 00:00:00 [place] Med ical PPSV23 (PNEUMOVAX) Branch Pneumococcal 2011-08-31 Completed University o f Polysaccharide, 00:00:00 [place] Med ical PPSV23 (PNEUMOVAX) Branch Pneumococcal 2011-08-31 [...] Source Systolic blood 2021-12-26 19:15:00 96 mm[Hg] [facility] pressure Medicine Diastolic blood 2021-12-26 19:15:00 63 mm[Hg] [facility] Medicine Heart rate 2021-12-26 19:15:00 79 /min [facility] Body temperature 2021-12-26 19:15:00 36.83 [facility] Body height 2021-12-26 19:15:00 160 cm [facility] Body weight 2021-12-26 19:15:00 63.504 kg [facility] BMI 2021-12-26 19:15:00 24.80 kg/m2 [facility] Systolic blood 2021-09-10 19:49:00 116 mm[Hg] [facility] Medicine Diastolic blood 2021-09-10 19:49:00 76 mm[Hg] [facility] Medicine Heart rate 2021-09-10 19:49:00 65 /min [facility] Body temperature 2021-09-10 19:49:00 37 [facility] Respiratory rate 2021-09-10 19:49:00 16 /min [facility] Body height 2021-09-10 19:49:00 160 cm [facility] Body weight 2021-09-10 19:49:00 65.772 kg [facility] BMI 2021-09-10 19:49:00 25.69 kg/m2 [facility] Systolic blood 2021-04-01 05:00:00 127 mm[Hg] Univer [facility]ity of [facility] Diastolic blood 2021-04-01 05:00:00 60 mm[Hg] Unive rsity of [facility] Heart rate 2021-04-01 05:00:00 62 /min Universi ty of [facility] Respiratory rate 2021-04-01 05:00:00 17 /min [facility] Oxygen saturation in 2021-04-01 05:00:00 98 /min [facility] Arterial blood by [facility] Pulse oximetry Branch Body temperature 2021-04-01 04:00:00 36.72 Mitzi Univ ersity of [facility] Body weight 2021-04-01 00:54:00 63.504 kg Universi ty of [facility] BMI 2021-04-01 00:54:00 23.30 kg/m2 Universi ty of [facility] Systolic blood 2021-02-26 20:30:00 120 mm[Hg] Univer sity of pressure [facility] Diastolic blood 2021-02-26 20:30:00 76 mm[Hg] Unive rsity of pressure [place] [facility] Heart rate 2021-02-26 20:30:00 81 /min Universi ty of [place] [facility] Body temperature 2021-02-26 20:30:00 36.56 Mitzi Univ ersity of [place] [facility] Respiratory rate 2021-02-26 20:30:00 18 /min Univ ersity of [place] [facility] Oxygen saturation in 2021-02-26 20:30:00 98 /min University of Arterial blood by [facility] Pulse oximetry Branch Body height 2021-02-21 10:48:00 165.1 cm Universi ty of [place] Medical [place] Body weight 2021-02-21 10:48:00 63.504 kg Universi ty of [place] [facility] BMI 2021-02-21 10:48:00 23.30 kg/m2 Universi ty of [facility] Systolic blood 2021-02-14 15:12:00 144 mm[Hg] Univer sity of pressure [place] [facility] Branch Diastolic blood 2021-02-14 15:12:00 76 mm[Hg] Unive rsity of [facility] Heart rate 2021-02-14 15:12:00 60 /min [facility] Body temperature 2021-02-14 15:12:00 36.67 Mitzi [facility] Body height 2021-02-14 15:12:00 162.6 cm [facility] Oxygen saturation in 2021-02-14 15:12:00 98 /min University of Arterial blood by [facility] Pulse oximetry Branch Systolic blood 2019-02-23 20:43:00 146 mm[Hg] Univer sity of [facility] Diastolic blood 2019-02-23 20:43:00 86 mm[Hg] Unive rsity of [facility] Heart rate 2019-02-23 20:43:00 66 /min [facility] Body temperature 2019-02-23 20:43:00 36.61 Mitzi [facility] Respiratory rate 2019-02-23 20:43:00 12 /min [facility] Body height 2019-02-23 20:43:00 162.6 cm [facility] Body weight 2019-02-23 20:43:00 67.45 kg [facility] [place] [facility] [place] BMI 2019-02-23 20:43:00 25.52 kg/m2 Universi ty of [facility] Oxygen saturation in 2019-02-23 20:43:00 97 /min University of Arterial blood by [facility] Pulse oximetry Branch Systolic blood 2019-02-23 20:43:00 146 mm[Hg] Univer sity of pressure [facility] Diastolic blood 2019-02-23 20:43:00 86 mm[Hg] [facility] Heart rate 2019-02-23 20:43:00 66 /min Universi ty [facility] Body temperature 2019-02-23 20:43:00 36.61 Mitzi [facility] Respiratory rate 2019-02-23 20:43:00 12 /min [facility] Body height 2019-02-23 20:43:00 162.6 cm Universi [facility] Body weight 2019-02-23 20:43:00 67.45 kg Universi ty [facility] BMI 2019-02-23 20:43:00 25.52 kg/m2 Universi ty [facility] Oxygen saturation in 2019-02-23 20:43:00 97 /min University of Arterial blood by [facility] Pulse oximetry [place] Procedures Procedure Date / Time Performing Clinician Source Performed BLOOD CULTURE SCREEN 2021-04-01 02:34:00 Laz Lock [facility] CT HEAD WO CONTRAST 2021-04-01 02:07:16 Laz Lock [facility] URINALYSIS 2021-04-01 01:55:00 Laz Lock [facility] COVID-19 (ID NOW RAPID 2021-04-01 01:45:00 [facility]az [facility] CBC WITH DIFF 2021-04-01 01:41:00 Laz Lock [facility] PROTHROMBIN TIME / INR 2021-04-01 01:41:00 Laz Lock [facility] ACTIVATED PARTIAL 2021-04-01 01:41:00 Laz Lock [facility] THRMPLAS [facility] BLOOD CULTURE SCREEN 2021-04-01 01:38:00 Laz Lock [facility] LIPASE 2021-04-01 01:38:00 Laz Lock [place] [facility] TROPONIN I 2021-04-01 01:38:00 Laz Lock [facility] COMP. METABOLIC PANEL 2021-04-01 01:38:00 Laz Lock [facility] ([id number]) [facility] N-TERMINAL PRO-BNP 2021-04-01 01:38:00 Laz Lock [facility] AC PANEL 21 + LACTIC 2021-04-01 01:37:[address] [facility] ACID [facility] NOTICE OF PRIVACY 2021-04-01 00:48:38 Doctor Unassigned, No [facility] PRACTICES Name [facility] CONSENT/REFUSAL FOR 2021-04-01 00:46:04 Doctor Unassigned, No [facility] DIAGNOSIS AND TREATMENT Name [facility] REFERRAL- 2021-03-21 05:01:00 Doctor Unassigned, No [facility] REQUEST/RESPONSE Name [facility] POCT GLUCOSE (AUTOMATED) 2021-02-26 22:10:00 Etta Mckeon Un iversity [facility] POCT GLUCOSE (AUTOMATED) 2021-02-26 17:16:00 Et[facility] POCT GLUCOSE (AUTOMATED) 2021-02-26 13:42:00 [facility] BASIC METABOLIC PANEL 2021-02-26 10:38:00 Lillie Wilkins [facility] (NA, K, CL, CO2, Medical Branch GLUCOSE, BUN, CREATININE, CA) CBC WITH DIFF 2021-02-26 10:38:00 Lillie Wilkins [facility] POCT GLUCOSE (AUTOMATED) 2021-02-26 02:23:00 Etta Mckeon Un iversity of [facility] POCT GLUCOSE (AUTOMATED) 2021-02-25 21:53:00 Etta Mckeon Un iversity of [facility] POCT GLUCOSE (AUTOMATED) 2021-02-25 16:05:00 Etta Mckeon Un iversity of [facility] POCT GLUCOSE (AUTOMATED) 2021-02-25 12:38:00 Etta Mckeon Un iversity of [facility] BASIC METABOLIC PANEL 2021-02-25 08:09:00 Sarah Ricketts [facility] (NA, K, CL, CO2, Medical Branch GLUCOSE, BUN, CREATININE, CA) CBC WITH DIFF 2021-02-25 08:09:00 Sarah Ricketts [facility] POCT GLUCOSE (AUTOMATED) 2021-02-25 02:14:00 Etta Mckeon Un iversity of [facility] POCT GLUCOSE (AUTOMATED) 2021-02-24 21:52:00 Etta Mckeon Un iversity of [facility] POCT GLUCOSE (AUTOMATED) 2021-02-24 16:38:00 Etta Mckeon Un iversity of [facility] POCT GLUCOSE (AUTOMATED) 2021-02-24 12:35:00 Etta Mckeon Un iversity of [facility] BASIC METABOLIC PANEL 2021-02-24 08:47:00 Lillie Wilkins [facility] (NA, K, CL, CO2, Medical Branch GLUCOSE, BUN, CREATININE, CA) CBC WITH DIFF 2021-02-24 08:47:00 Lillie Wilkins [place] f [facility] GLYCOSYLATED HEMOGLOBIN 2021-02-24 08:47:00 Zane Ricketts i [facility] (A1C) [facility] POCT GLUCOSE (AUTOMATED) 2021-02-24 01:40:00 Etta Mckeon Un iversity of [facility] POCT GLUCOSE (AUTOMATED) 2021-02-23 22:45:00 Etta Mckeon iversity of [facility] POCT GLUCOSE (AUTOMATED) 2021-02-23 16:55:00 Etta Mckeon Un iversity of [facility] POCT GLUCOSE (AUTOMATED) 2021-02-23 14:08:00 Etta Mckeon Un iversity of [facility] BASIC METABOLIC PANEL 2021-02-23 08:46:00 Sarah Ricketts [facility] (NA, K, CL, CO2, Medical Branch GLUCOSE, BUN, CREATININE, CA) CBC WITH DIFF 2021-02-23 08:46:00 Sarah Ricketts [facility] POCT GLUCOSE (AUTOMATED) 2021-02-23 02:23:00 Etta [facility] POCT GLUCOSE (AUTOMATED) 2021-02-22 22:50:00 Etta [facility]keon [facility] POCT GLUCOSE (AUTOMATED) 2021-02-22 17:08:00 Etta Mckeon Un [facility] BASIC METABOLIC PANEL 2021-02-22 09:31:00 Jamarcus [facility] (NA, K, CL, CO2, Medical Branch GLUCOSE, BUN, CREATININE, CA) CBC WITH DIFF 2021-02-22 09:31:00 Sarah Ricketts [facility] POCT GLUCOSE (AUTOMATED) 2021-02-22 01:56:00 [facility] POCT GLUCOSE (AUTOMATED) 2021-02-21 21:28:00 Wiggins Jaclyn [facility] POCT GLUCOSE (AUTOMATED) 2021-02-21 17:19:00 Wiggins [facility] POCT GLUCOSE (AUTOMATED) 2021-02-21 14:48:00 [facility] PHOSPHORUS 2021-02-21 11:17:00 Joseph [facility] MAGNESIUM 2021-02-21 11:17:00 Joseph [facility] HEPATIC FUNCTION PANEL 2021-02-21 11:17:00 [id number] (ALB,T.PRO,BILI [facility] T,BU/BC,ALT,AST,ALK PHOS) BASIC METABOLIC PANEL 2021-02-21 11:17:00 Gene Ruiz [facility] (NA, K, CL, CO2, Medical Branch GLUCOSE, BUN, CREATININE, CA) CBC WITH DIFF 2021-02-21 11:17:00 Joseph [facility] PROTHROMBIN TIME / INR 2021-02-21 11:17:00 Gene [facility] ACTIVATED PARTIAL 2021-02-21 11:17:00 [facility] THRMPLAS RADHA [facility] LACTIC ACID WHOLE BLOOD 2021-02-21 11:17:00 [facility] XR CHEST 1 VW 2021-02-21 02:52:40 Elsa Landry [facility] CT ABDOMEN PELVIS W 2021-02-21 02:39:[address] [facility] CONTRAST [facility] URINALYSIS 2021-02-21 01:08:00 [facility] 2021-02-21 01:08:00 Joseph [facility] HB ECG ROUTINE & RHYTHM 2021-02-21 01:01:32 Elsa Landry [facility] STRIP [facility] BLOOD CULTURE SCREEN 2021-02-21 00:58:00 Shefali Ruiz [facility] LIPASE 2021-02-21 00:58:00 Joseph [facility] TROPONIN I 2021-02-21 00:58:00 Joseph [facility] HEPATIC FUNCTION PANEL 2021-02-21 00:58:00 Joseph [facility] ([id number]) (ALB,T.PRO,BILI [facility] T,BU/BC,ALT,AST,ALK PHOS) COMP. METABOLIC PANEL 2021-02-21 00:58:00 Joseph Shefali [facility] ([id number]) [facility] CBC WITH DIFF 2021-02-21 00:58:00 Joseph [facility] COVID-19 (ID NOW RAPID 2021-02-21 00:58:00 Joseph [facility] TESTING) [facility] LACTIC ACID WHOLE BLOOD 2021-02-21 00:57:00 Shefali Ruiz [facility] NOTICE OF PRIVACY 2021-02-21 00:23:04 Doctor Unassigned, No [facility] PRACTICES Name [facility] PATIENT QUESTIONNAIRE 2021-02-14 05:01:00 Doctor Unassigned, No [facility] CT CHEST WO CONTRAST 2020-11-07 18:49:00 Arvind Moore [facility] XR CHEST 2 VW 2019-02-23 22:21:03 Enoch Cabrera [facility] Plan of Care Planned Activity Planned Date Details Comments Source Future Scheduled 2021-12-26 Screening for [facility] [employer] Test 14:13:18 malignant neoplasm of of Med icine colon (procedure) [code = 551031861] Future Scheduled 2021-12-26 COVID-19 Vaccine (#1) [employer] [facility] 14:13:18 [code = COVID-19 of Medicine Vaccine (#1)] Future Scheduled 2021-12-26 TETANUS SHOT (ADULT) [employer] Test 14:13:18 [code = TETANUS SHOT of Medi cine (ADULT)] Future Scheduled 2021-12-26 BMI FOLLOW UP PLAN [employer] [facility] 14:13:18 [code = BMI FOLLOW UP of Med icine PLAN] Future Scheduled 2021-12-26 Hepatitis C screening [employer] [facility] 14:13:18 (procedure) [code = of Medic ine 158082839] Future Scheduled 2021-12-26 ZOSTER VACCINE (1 of [employer] Test 14:13:18 2) [code = ZOSTER of Medicin e VACCINE (1 of 2)] Future Scheduled 2021-12-26 Abdominal aortic [employer] Test 14:13:18 aneurysm screening of Medici ne (procedure) [code = 537920733] Future Scheduled 2021-12-26 FALL SCREEN [code = [employer] Test 14:13:18 FALL SCREEN] of Medicine Future Scheduled 2021-12-26 Pneumococcal 65+ (1 - [employer] [facility] 14:13:18 PCV) [code = of Medicine Pneumococcal 65+ (1 - PCV)] Future Scheduled 2021-12-26 FLU VACCINE > 6 [facility] [employer] Test 14:13:18 MONTHS [code = FLU of Medici ne VACCINE > 6 MONTHS] Future Scheduled 2021-12-26 MEDICARE AWV [facility] Alyssa ege Test 14:13:18 (Initial) [code = of Medicin e MEDICARE AWV (Initial)] Future Scheduled 2021-09-10 COMPLETE PFT WITHOUT 1 Occurrences [employer] [facility] 14:22:58 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 [code starting of Medi cine = 54441] 09/10/2021 until 09/10/2022 Future Scheduled 2021-09-10 CT CHEST HIGH 1 Occurrences [facility] [employer] Test 14:14:59 RESOLUTION WO starting of Medicine CONTRAST [code = 09/10/2021 until 98302-2] 09/10/2022 Future Scheduled 2021-09-10 Screening for [facility] [employer]ge Test 14:00:29 malignant neoplasm of of Med icine colon (procedure) [code = 095479661] Future Scheduled 2021-09-10 COVID-19 Vaccine (1) [employer] 14:00:29 [code = COVID-19 of Medicine Vaccine (1)] Future Scheduled 2021-09-10 TETANUS SHOT (ADULT) [employer] Test 14:00:29 [code = TETANUS SHOT of Medi cine (ADULT)] Future Scheduled 2021-09-10 Hepatitis C screening [employer] Test 14:00:29 (procedure) [code = of Medic ine 647774201] Future Scheduled 2021-09-10 ZOSTER VACCINE (1 of [employer] Test 14:00:29 2) [code = ZOSTER of Medicin e VACCINE (1 of 2)] Future Scheduled 2021-09-10 FLU VACCINE > 6 [facility] C [employer]lege Test 14:00:29 MONTHS [...] - PPSV23)] Future Scheduled 2021-09-10 MEDICARE AWV [facility] Alyssa [employer] Test 14:00:29 (Initial) [...] [facility] Test (procedure) [code = Hospital 963035542] Future Scheduled COLONOSCOPY SCREENING Me thodist Test [code = COLONOSCOPY Hospital SCREENING] Future Scheduled SHINGLES VACCINES Method ist Test (#1) [code = SHINGLES Hospit al VACCINES (#1)] Future Scheduled INFLUENZA VACCINE Method ist Test [code = INFLUENZA Hospital VACCINE] Encounters Start End Encounter Admission Attending Care Care Encounter Source Date/Time Date/Time Type Type Clinicians Facility Department ID 2022-01-15 Outpatient Loera, STLMLC STLC [id number] Common 11:22:00 Bryant [facility] 2021-12-24 Outpatient Loera, STLMLC STLC [id number] Common 09:19:00 Bryant [facility] 2021-11-26 Outpatient Loera, STLMLC STLC [id number] Common 09:54:01 Bryant [facility] 2021-08-27 Outpatient Loera, STLMLC STLC [id number] Common 14:24:19 Bryant 50986 [facility] 2021-08-27 Outpatient Loera, STLMLC STLC [id number] Common 14:23:28 Bryant 58197 [facility] 2021-08-27 Outpatient Loera, STLMLC STLC [id number] Common 13:11:30 Bryant 79078 [facility] 2021-08-27 Outpatient Loera, STLMLC STLC [id number] Common 12:58:11 Bryant 46900 [facility] 2021-08-27 Outpatient Loera, STLMLC STLC [id number] Common 12:50:45 Bryant 40172 [facility] 2021-08-27 Outpatient Loera, STLMLC STLC [id number] Common 12:33:09 Bryant 98754 [facility] 2021-08-27 Outpatient Loera, STLMLC STLC [id number] Common 11:21:28 Bryant 97196 [facility] 2021-08-27 Outpatient Loera, STLMLC STLMLC [id number] Common 11:14:28 Bryant 89870 [facility] 2021-08-27 Outpatient Loera, STLMLC STLMLC [id number] Common 11:07:10 Bryant 00669 [facility] 2021-08-27 Outpatient Loera, STLMLC STLMLC [id number] Common 11:01:07 Bryant 14071 [facility] 2021-08-27 Outpatient Loera, STLMLC STLMLC [id number] Common 11:00:53 Bryant 88117 [facility] 2021-08-27 Outpatient Loera, STLMLC STLMLC [id number] Common 10:58:57 Bryant 66715 [facility] 2021-06-02 Emergency [facility] [id number] Univers 19:11:59 ity [facility] 2021-06-02 Emergency [facility] [id number] [facility]-02 Inpatient Rajinder, HCAPM SILAS [id number] [facility] 08:00:00 Trever [facility] [place] 2019-09-19 Inpatient MIHIR Calvillo, HCAPM RADI [id number] [facility] 11:00:00 Trever [id number] [facility] [place] 2022-03-13 2022-03-13 ambulatory STLMLC STLMLC [id number] Common 00:00:00 00:00:00 [facility] 2022-03-11 2022-03-11 Outpatient [facility] [id number] [place] 00:00:00 00:00:[address] 2022-03-09 2022-03-09 ambulatory STLMLC STLMLC [id number] Common 00:00:00 00:00:00 [facility] 2022-03-09 2022-03-09 ambulatory STLMLC STLMLC [id number] Common 00:00:00 00:00:00 [facility] 2022-02-23 2022-02-23 ambulatory STLMLC STLMLC [id number] Common 00:00:00 00:00:00 [facility] 2022-02-11 2022-02-11 Outpatient [facility] [id number] [place] 00:00:00 00:00:[address] 2022-01-30 2022-01-30 ambulatory STLMLC STLMLC [id number] Common 00:00:00 00:00:00 [facility] 2022-01-23 2022-01-23 ambulatory STLMLC STLMLC [id number] Common 00:00:00 00:00:00 [facility] 2022-01-16 2022-01-16 ambulatory STLMLC STLMLC [id number] Common 00:00:00 00:00:00 [facility] 2022-01-16 2022-01-16 ambulatory STLMLC STLMLC [id number] Common 00:00:00 00:00:00 [facility] 2022-01-13 2022-01-13 ambulatory STLMLC STLMLC [id number] Common 00:00:00 00:00:00 [facility] 2022-01-06 2022-01-06 ambulatory STLMLC STLMLC [id number] Common 00:00:00 00:00:00 [facility] 2022-01-01 2022-01-01 ambulatory STLMLC STLMLC [id number] Common 00:00:00 00:00:00 [facility] 2021-12-30 2021-12-30 ambulatory STLMLC STLMLC [id number] Common 00:00:00 00:00:00 [facility] 2021-12-26 2021-12-26 Office LALITO, [facility] [id number] [place] [address] 14:05:54 14:59:54 Visit DIPABEN AMBULATOR [id number] College Y 0.2.7.2.686 of [id number] [facility] 315 e 2021-12-18 2021-12-18 Outpatient EL LALITO, SLE SLE [id number] [facility] 13:32:29 23:59:00 DIPABEN 2021-11-26 2021-11-26 Outpatient EL LALITO, SLEH SLE [id number] [facility] 00:00:00 00:00:00 DIPABEN 2021-11-25 2021-11-25 ambulatory STLMLC STLMLC [id number] Common 00:00:00 00:00:00 [facility] 2021-10-24 2021-10-24 Outpatient EL LALITO, SLE SLE [id number] [facility]H 00:00:00 00:00:00 DIPABEN 2021-10-23 2021-10-23 ambulatory STLMLC STLMLC [id number] Common 00:00:00 00:00:00 [facility] 2021-10-20 2021-10-20 ambulatory STLMLC STLMLC [id number] Common 00:00:00 00:00:00 [facility] 2021-10-17 2021-10-17 Outpatient [facility] [id number] [address] [place] [address] 13:09:29 13:09:29 [facility] 2021-09-29 2021-09-29 [id number] [facility] 00:00:00 00:00:00 DIPABEN 2021-09-22 2021-09-22 ambulatory STLMLC STLMLC [id number] Common 00:00:00 00:00:00 [facility] 2021-09-22 2021-09-22 ambulatory STLMLC STLMLC [id number] Common 00:00:00 00:00:00 [facility] 2021-09-10 2021-09-10 Office LALITO, BCM [id number] [facility] 13:40:43 14:43:07 Visit TRUMAN AMBULATOR 350.1.13.21 College Y 0.2.7.2.686 of [id number] Medi carmelina 315 e 2021-08-26 2021-08-26 Refill MARLENI Khalil 1.2.840.[id number] [place] [address] 00:00:00 00:00:00 Angel HEALTH [id number] it y of CANCER 4.2.7.2.686 [facility] [id number] [facility] 144 Branch 2021-07-14 2021-07-14 ambulatory STLMLC STLMLC [id number] Common 00:00:00 00:00:00 [facility] 2021-07-08 2021-07-08 ambulatory STLMLC STLMLC [id number] Common 00:00:00 00:00:00 [facility] 2021-07-03 2021-07-03 Outpatient Katy COLIN [facility] [id number] Univers 10:00:00 10:00:00 SAWYER [id number] [facility] 2021-07-03 2021-07-03 [facility] [id number] Univers 10:00:00 10:00:00 SAWYER [facility] 2021-06-11 2021-06-11 [facility] [id number] Univers 00:00:00 00:00:00 [facility] [id number] it y of CANCER 4.2.7.2.686 [facility] [id number] [facility] 144 Branch 2021-05-15 2021-05-15 Outpatient STLMLC STLMLC [id number] Common 00:00:00 00:00:00 [facility] 2021-05-09 2021-05-09 [facility] 1.2.840.114 [id number] Univers 00:00:00 00:00:00 [facility] [id number] it y of Cancer 4.2.7.2.686 [facility] - [phone] [facility] 144 Branch 2021-04-16 2021-04-16 Outpatient STLMLC STLMLC [id number] Common 00:00:00 00:00:00 [facility] 2021-04-14 2021-04-14 Outpatient STLMLC STLMLC [id number] Common 00:00:00 00:00:00 [facility] 2021-04-14 2021-04-14 Outpatient STLMLC STLMLC [id number] Common 00:00:00 00:00:00 [facility] 2021-04-14 2021-04-14 Outpatient STLMLC STLMLC [id number] Common 00:00:00 00:00:00 [facility] 2021-04-11 2021-04-11 Outpatient STLMLC STLMLC [id number] Common 00:00:00 00:00:00 [facility] 2021-04-04 2021-04-04 Outpatient [facility] [id number] Univers 10:30:00 10:30:00 NANCI [id number] ity [facility] 2021-04-04 2021-04-04 Outpatient [facility] [id number] Univers 10:30:00 10:30:00 NANCI [facility] 2021-03-31 2021-04-01 Emergency [facility] [id number] Univers 19:55:00 01:41:00 Laz Sullivan 350.1.13.10 i [facility] 4.2.7.2.[address] [facility] [id number] [facility] 084 Branch 2021-03-21 2021-03-21 Outpatient STLMLC STLMLC [id number] Common 00:00:00 00:00:00 [facility] 2021-03-21 2021-03-21 Orders Doctor ROSE 1.2.840.114 [id number] Univers 00:00:00 00:00:00 Only Unassigned, MICHAEL 350.1.13.10 ity [facility] 4.2.7.2.686 [facility] [id number] [facility] 009 Branch 2021-03-20 2021-03-20 Outpatient STLMLC STLMLC [id number] Common 00:00:00 00:00:00 [facility] 2021-03-07 2021-03-07 Outpatient STLMLC STLMLC [id number] Common 00:00:00 00:00:00 [facility] 2021-03-07 2021-03-07 Outpatient STLMLC STLMLC [id number] Common 00:00:00 00:00:00 [facility] 2021-02-28 2021-02-28 Outpatient Katy JETER [facility] [id number] Univers 10:30:00 10:30:00 BETTYE [id number] y [facility] 2021-02-28 2021-02-28 Outpatient Katy CORONA [facility] [id number] Univers 00:00:00 00:00:00 BETTYE [facility] 2021-02-27 2021-02-27 Outpatient STLMLC STLMLC [id number] Common 00:00:00 00:00:00 [facility] 2021-02-27 2021-02-27 Outpatient STLMLC STLMLC [id number] Common 00:00:00 00:00:00 [facility] 2021-02-27 2021-02-27 Transition Maria L Montanez 1.2.840.114 [id number] Univers 00:00:00 00:00:00 of Care Niya Tobar 350.1.13.10 it y of [place] 4.2.7.2.686 [facility] [id number] [place] [address] Branch 2021-02-20 2021-02-26 [facility] Am[facility]ale[facility]ls[facility] 1.2.840. 114 [id number] Univers 19:39:00 18:25:00 Encounter Jaclyn Wiggins 350.1.13.10 ity of [facility] 4.2.7.2.686 Angel Camacho [id number] [place] [id number] Branch 2021-02-24 2021-02-24 Outpatient STLMLC STLMLC [id number] Common 00:00:00 00:00:00 [facility] 2021-02-19 2021-02-19 Outpatient STLMLC STLMLC [id number] Common 00:00:00 00:00:00 [facility] 2021-02-17 2021-02-17 Outpatient STLMLC STLMLC [id number] Common 00:00:00 00:00:00 [facility] 2021-02-14 2021-02-14 [facility] 1.2.840.114 [id number] Univers 10:04:09 11:24:24 Visit Bettye BRIAN 350.1.13.10 ity of [place] [facility] 4.[place].7.[place] [phone] Ms reina FUENTES 2 [facility] 2021-02-14 2021-02-14 Outpatient [facility] [id number] Univers 10:00:00 10:00:00 BETTYE [id number] ity [facility] 2021-02-14 2021-02-14 Outpatient [facility] [id number] Univers 10:00:00 10:00:00 BETTYE [facility] 2021-02-14 2021-02-14 Orders Doctor MILTON 1.2.840.114 [id number] Univers 00:00:00 00:00:00 Only Unassigned, MICHAEL 350.1.13.10 ity of Kiel [facility] 4.2.7.2.[id number] [facility] 009 Branch 2021-02-10 2021-02-10 Outpatient R [facility] [id number] Univers 14:00:00 14:00:00 [id number] ity [facility] 2021-02-10 2021-02-10 Outpatient R [facility] [id number] Univers 14:00:00 14:00:00 ity [facility] [facility] 2021-01-20 2021-01-20 Transition Maria L Montanez 1.2.840.114 [id number] Univers 00:00:00 00:00:00 of Care Niya Gutierrezy 350.1.13.10 it y [place] [place] [id number] [facility] [address] 2021-01-10 2021-01-17 [facility] [id number] Univers 14:21:00 22:26:00 CHELLY ity [facility] 2021-01-01 2021-01-01 Outpatient [facility] [id number] Common 00:00:00 00:00:00 [facility] 2020-12-23 2020-12-23 Outpatient STLMLC [facility] [id number] Common 00:00:00 00:00:00 [facility] 2020-12-02 2020-12-02 Outpatient STLMLC ST[facility] [id number] Common 00:00:00 00:00:00 [facility] 2020-11-07 2020-11-07 [facility], 1.2.840.1 [id number] Methodi 13:30:00 23:59:00 Encounter Arvind 48502.1.[address] [place] 3.430.2.7 Hospit a .3.045161 l .8 2020-11-07 2020-11-07 Travel 1.2.840.1 1.2.242.134 [id number] Methodi 00:00:00 00:00:[address] 3.430.2.7 0.2.7.3.698 Ho spita .3.590267 084.8 l .8 2020-10-18 2020-10-18 Travel 1.2.840.1 1.2.585.699 [id number] Methodi 00:00:00 00:00:[address] 3.430.2.7 0.2.7.3.698 Ho spita .3.173332 084.8 l .8 2020-10-15 2020-10-15 Transcribe [facility], 1.2.840.1 [id number] Methodi 00:00:00 00:00:00 Orders Arvind 59075.1.[address] [place] 3.430.2.7 Hospit a .3.506184 l .8 2020-10-15 2020-10-15 Outpatient STLMLC ST[facility]C [id number] Common 00:00:00 00:00:00 [facility] 2020-09-25 2020-09-25 Outpatient STLMLC STLMLC [id number] Common 00:00:00 00:00:00 [facility] 2020-09-23 2020-09-23 Outpatient STLMLC STLMLC [id number] Common 00:00:00 00:00:00 [facility] 2020-08-23 2020-08-23 Outpatient STLMLC ST[facility]C [id number] Common 00:00:00 00:00:00 [facility] 2020-08-20 2020-08-20 Outpatient STLMLC STLMLC [id number] Common 00:00:00 00:00:00 [facility] 2020-08-14 2020-08-14 Outpatient STLMLC STLMLC [id number] Common 00:00:00 00:00:00 [facility] 2020-08-12 2020-08-12 Outpatient STLMLC STLMLC [id number] Common 00:00:00 00:00:00 [facility] 2020-08-09 2020-08-09 Outpatient STLMLC STLMLC [id number] Common 00:00:00 00:00:00 [facility] 2020-03-22 2020-03-22 [facility] [id number] Common 08:45:00 08:45:[address] [facility] 2020-03-08 2020-03-08 [facility] [id number] Common 10:26:00 10:26:[address] [facility] 2020-03-05 2020-03-05 [facility] [id number] Common 16:14:00 16:14:[address] [facility] 2020-03-01 2020-03-01 [facility] [id number] Common 10:00:00 10:00:[address] [facility] 2020-03-01 2020-03-01 [facility] [id number] Common 10:00:00 10:00:[address] [facility] 2020-01-10 2020-01-10 [facility] [id number] Common 13:52:00 13:52:00 t Specialty/U Sp garth Specialty rology - [facility] 2019-12-28 2019-12-28 [facility] [id number] Common 13:15:00 13:15:00 t Specialty/U Sp g[facility] Specialty rology - [facility] 2019-11-16 2019-11-16 [facility] [id number] Common 15:00:00 15:00:00 t Specialty/U Sp garth Specialty rology - [facility] 2019-10-20 2019-10-20 [facility] [id number] Common 10:09:00 10:09:00 t Specialty/U Sp garth Specialty rology - [facility] 2019-10-18 2019-10-18 [facility] [id number] Common 08:30:00 08:30:00 t Specialty/U Sp garth Specialty rology - [facility] 2019-10-17 2019-10-17 [facility] [id number] Common 15:00:00 15:00:00 t [employer] [address] [facility] 2019-10-13 2019-10-13 [facility] [id number] Common 15:13:00 15:13:[address] [employer] [facility] 2019-10-02 2019-10-02 Outpatient CalvilloJORDICL OUTD [id number] [facility] 23:54:00 23:54:00 [facility] 2019-09-18 2019-09-18 Outpatient [place] JORDIPM RADI [id number] 0-20 [facility] 09:00:00 09:00:00 Trever [id number] [facility] 2019-09-15 2019-09-15 [facility] [id number] Common 09:00:00 09:00:00 t [employer] [address] [facility] 2019-08-10 2019-08-10 [facility] [id number] Common 11:32:00 11:32:[address] [facility] 2019-07-17 2019-07-17 [facility] [id number] Common 16:43:00 16:43:[address] [facility] 2019-06-21 2019-06-21 [facility] [id number] Common 11:12:00 11:12:[address] [facility] 2019-06-19 2019-06-19 [facility] [id number] Common 14:00:00 14:00:[address] [facility] 2019-06-12 2019-06-12 [facility] [id number] Common 15:55:00 15:55:[address] [facility] 2019-06-01 2019-06-01 [facility] [id number] Common 13:44:00 13:44:[address] [facility] 2019-05-24 2019-05-24 [facility] [id number] Common 13:44:00 13:44:[address] [facility] 2019-05-18 2019-05-18 [facility] [id number] Common 10:50:00 10:50:[address] [facility] 2019-05-01 2019-05-01 [facility] [id number] Common 15:00:00 15:00:[address] [facility] 2019-04-14 2019-04-14 [facility] [id number] Common 16:09:00 16:09:[address] [facility] 2019-03-08 2019-03-08 [facility] 1.2.840.114 [id number] 00:00:00 00:00:00 Tara, Y HEALTH 350.1.13.10 [facility] 4.2.7.2.686 [id number] [facility] 2019-03-08 2019-03-08 [facility] 1.2.840.114 [id number] Univers 00:00:00 00:00:00 Tara, Y HEALTH 350.1.13.10 i ty of [place] [id number] [id number] [place] 2019-03-07 2019-03-07 Case Jalen [facility] 1.2.115.252 [id number] 00:00:00 00:00:00 Management Madelyn Y HEALTH 350.1.13.10 [place] [facility] 4.2.7.2.686 [id number] [facility] 2019-03-07 2019-03-07 [facility] Jalen [facility] 1.2.850.814 [id number] Univers 00:00:00 00:00:00 Management Madelyn Y HEALTH 350.1.13.10 ity of [id number] [address] [address] 2019-03-01 2019-03-01 Outpatient [facility] [id number] Common 13:52:00 13:52:00 [employer] [facility] it [facility] 2019-02-23 2019-02-23 [facility] 1.2.840.114 [id number] 16:56:13 23:59:00 Encounter Madelyn Y HEALTH 350.1.13.10 [place] [facility] 4.2.7.2.686 [id number] [facility] 2019-02-23 2019-02-23 [facility] 1.2.840.114 [id number] [facility] 16:56:13 23:59:00 Encounter Madelyn Y HEALTH 350.1.13.10 ity of [id number] [address] [address] 2019-02-23 2019-02-23 Office [facility] 1.2.520.029 [id number] 15:34:50 18:38:56 Visit Karina Pacheco [facility].13.10 [facility] 4.2.7.2.686 [id number] [facility] 2019-02-23 2019-02-23 Office ClydeEnoch Leiva [facility] 1.2 .840.114 [id number] [facility] 15:34:50 18:38:56 Visit Madelyn Rao [facility] 350.1. 13.10 ity of CLINICS 4[place].7.[place] [place] [id number] 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 13.10 ity of CLINICS 4[place] [place] [id number] [facility] [address] 2018-12-01 2018-12-01 [facility] [id number] Common 10:52:00 10:52:[address] [facility] 2018-11-29 2018-11-29 [facility] [id number] Common 14:45:00 14:45:[address] [facility] 2018-09-28 2018-09-28 [facility] [id number] Common 10:43:00 10:43:[address] [facility] 2018-08-16 2018-08-16 [facility] 23 [id number] Common 12:06:00 12:06:[address] [facility] 2018-07-25 2018-07-25 [facility] 23 [id number] Common 10:56:00 10:56:[address] [facility] 2018-07-22 2018-07-22 [facility] [id number] Common 01:11:00 01:11:[address] [facility] 2018-07-20 2018-07-20 [facility] [id number] Common 13:00:00 13:00:[address] [facility] 2018-07-19 2018-07-19 [facility] [id number] Common 14:38:00 14:38:[address] [facility] 2018-07-15 2018-07-15 [facility] 23 [id number] Common 16:01:00 16:01:[address] [facility] 2018-07-14 2018-07-14 [facility] [id number] Common 15:35:00 15:35:[address] [facility] 2018-04-21 2018-04-21 [facility] [id number] Common 09:04:00 09:04:[address] [facility] 2018-04-20 2018-04-20 [facility] [id number] Common 22:17:00 22:17:[address] [facility] 2018-04-20 2018-04-20 [facility] [id number] Common 14:30:00 14:30:[address] [facility] Results Test Description Test Time Test Comments Results Result Sour e Comments CT, CHEST, WITHOUT 2021-12-19 Unlisted IV CONTRAST 12:44:00 Reason for Exam - Click CHI Yes and Enter [facility] Reason CENTERName: Francine LOPEZ->Arianna MUSE : sted Reason 1955 Sex: for M Exam->Z77.090, R06.02 FI NAL REPORT EXAMINATION: CT, CHEST, WITHOUT IV CONTRAST INDICATION: Shortness of breath. History of asbestos exposure. TECHNIQUE:Chest was scanned utilizing a multidetector helical scanner from the lung apex through the level of the adrenal glands without administration of IV contrast. Absence of intravenous contrast decreases sensitivity for detection of lymphadenopathy and vascular pathology. Coronal and sagittal reformations were obtained. High resolution chest CT protocol was performed. RADIATION DOSE:Total DLP: 398 mGy*cmEstimated effective dose: 398 x 0.014 mSvCTDIvol has been reviewed. It is below the limits set by the Radiation Protocol Committee (RPC). FINDINGS: LUNGS AND AIRWAYS: Mild subpleural atelectatic changes in the posterior basal segments of both lower lobes. There is a 2 mm calcified granuloma in the superior segment of the right lower lobe. There are no suspicious pulmonary nodules or masses. No groundglass opacities or focal consolidation. There is no interstitial lung disease. Airways are normal. No bronchiectasis/bronch iolectasis. No air trapping on expiratory imaging. PLEURA: No plaques or pleural calcifications identified. No pleural effusion or pneumothorax. HEART AND MEDIASTINUM: The thyroid gland is normal. No mediastinal, hilar or axillary lymphadenopathy. The heart is normal in size. There is no pericardial effusion. Extensive coronary calcifications in the proximal and mid LAD. Moderate RCA calcifications. Mild proximal LCx calcifications The thoracic aorta and pulmonary arteries are unremarkable. UPPER ABDOMEN: A 4 mm calcified granuloma in the spleen. BONES: Moderate bilateral glenohumeral joint osteoarthritis. Old fracture deformities of the anterior segments of the right 3rd-7th ribs. There is moderate to severe degenerative changes of the thoracolumbar vertebrae. There is severe narrowing of T11-T12 disc space with vacuum clefts. SOFT TISSUES: Unremarkable. IMPRESSION: 1. No specific CT findings to suggest asbestos-related pleural disease or asbestosis. 2. Evidence of remote granulomatous infection. 3. Coronary artery disease. Extensive coronary calcifications in the proximal and mid LAD. 4. Chronic fracture deformities of the anterior segments of right 3rd-7th ribs. Signed: Elder Haney Verified Date/Time: 12/19/2021 12:44:16 Reading Location: [facility] Reading Room [address] [place] [address] ALYSIS 2021-04-01 03:04:09 Test Item Value Reference Range Interpretation Comme nts APPEARANCE (test code = Clear Clear 7659547154) COLOR (test code = 2084190309) Yellow Yellow PH (test code = 9022100295) 4.8-8.0 SP GRAVITY (test code = 1.003-1.030 8800134167) GLU U QUAL (test code = Normal Normal 7670905065) BLOOD (test code = 8655610425) Negative Negative Interference from ascorbic acid may cause false negative results. KETONES (test code = Negative Negative 9878208881) PROTEIN (test code = 2887-8) Negative Negative UROBILIN (test code = 2.0 mg/dL Normal A 8975360470) BILIRUBIN (test code = Negative Negative 3779657653) NITRITE (test code = Negative Negative 9098256654) LEUK MIGDALIA (test code = Negative Negative 1653235598) RBC/HPF (test code = See_Comment H [Autom ated message] The 9753490719) system which ge nerated this result transmit elaine reference range: 0 - 3 HP F. The reference range was not used to interpret th is result as normal/abnormal . WBC/HPF (test code = See_Comment [Autom ated message] The 4782278290) system which ge nerated this result transmit elaine reference range: 0 - 5 HP F. The reference range was not used to interpret th is result as normal/abnormal . BACTERIA (test code = Few Negative A 7464030364) MUCOUS (test code = 7024763021) Slight Negative LPF A SQ EPITH (test code = HPF 5037563728) HYAL CAST (test code = See_Comment H [Aut omated message] The 5928387299) system which ge nerated this result transmit elaine reference range: <=2 LPF. The reference range was not u sed to interpret this result as normal/abnormal . GRAN CASTS (test code = See_Comment H [Au tomated message] The 5410676958) system which ge nerated this result transmit elaine reference range: <=1 LPF. The reference range was not u sed to interpret this result as normal/abnormal . Lab Interpretation (test code = Abnormal 17841-8) [facility] 03[facility]04:09 Test Item Value Reference Range Interpretation Comments APPEARANCE (test code = Clear Clear 5564161095) COLOR (test code = Yellow Yellow 7446213854) PH (test code = 4.8-8.0 5166333900) SP GRAVITY (test code = 1.003-1.030 8377717799) GLU U QUAL (test code = Normal Normal 4374436288) BLOOD (test code = Negative Negative 9035329390) KETONES (test code = Negative Negative 7359468082) PROTEIN (test code = Negative Negative 2887-8) UROBILIN (test code = 2.0 mg/dL Normal A 8498034434) BILIRUBIN (test code = Negative Negative 9108911312) NITRITE (test code = Negative Negative 2333551860) LEUK MIGDALIA (test code = Negative Negative 4855234405) RBC/HPF (test code = See_Comment H [Autom ated message] 2906149883) The system [employer] generated this result transmit elaine reference range : 0 - 3 HPF. The refe rence range was not u sed to interpret th is result as normal/abnormal . WBC/HPF (test code = See_Comment [Autom ated message] 2379883510) The system [employer] generated this result transmit elaine reference range : 0 - 5 HPF. The refe rence range was not u sed to interpret th is result as normal/abnormal . BACTERIA (test code = Few Negative A 6145510239) MUCOUS (test code = Slight Negative LPF A 5260329537) SQ EPITH (test code = HPF 7820875954) HYAL CAST (test code = See_Comment H [Aut omated message] 3949085457) The system [employer] generated this result transmit elaine reference range : <=2 LPF. The refere nce range was not u sed to interpret th is result as normal/abnormal . GRAN CASTS (test code = See_Comment H [Au tomated message] 6434543938) The system [employer] generated this result transmit elaine reference range : <=1 LPF. The refere nce range was not u sed to interpret th is result as normal/abnormal . Lab Interpretation (test Abnormal code = 34116-9) [facility] [id number] 02:31:36 Test Item Value Reference Interpretation Comments Range TROPONIN I (test 0.003 ng/mL See_Comment [Automated code = 8718357049) message] The system which generated this result [...] biotin. Lab Interpretation Normal (test code = 08782-3) [facility] [id number] 02:31:36 Test Item Value Reference Range Interpretation Comments TROPONIN I (test code = 0.003 ng/mL See_Comment [Au tomated 7836353606) message] The sy stem which generated this result transmitted reference range : <=0.034. The reference range was not used to interpret this result as normal/abnormal . ANU (test code = ANU) Lab Interpretation Normal (test code = 85061-9) [id number] 02:28:37 Test Item Value Reference Range Interpretation Comments NT-proBNP (test code 231 pg/mL See_Comment H [Autom ated = 5388574645) message] The system which generated this result transmitted reference range : <=125. The reference range was not used to interpret this result as normal/abnormal . ANU (test code = ANU) Biotin has been reported to cause a negative bias, interpret results relative to patient's use of biotin. Lab Interpretation Abnormal (test code = 22523-5) [facility] [id number] 02:28:37 Test Item Value Reference Range Interpretation Comments NT-proBNP (test code = 231 pg/mL See_Comment H [Aut omated message] 9133091290) The system [employer] generated this result transmit elaine reference range : <=125. The refe rence range was not u sed to interpret th is result as normal/abnormal . ANU (test code = ANU) Lab Interpretation (test Abnormal code = 73177-9) [facility] [id number] 02:26:55 Test Item Value Reference Range Interpretation [...] seconds. Lab Interpretation Normal (test code = 74239-5) [facility] [id number] 02:26:55 Test Item Value Reference Range Interpretation Comments APTT Patient (test code = See_Comment [ Automated message] 3173-2) The system [employer] generated this result transmitted ref erence range: 23 - 38 Seconds. The re ference range was not u sed to interpret this result as normal/abnor mal. ANU (test code = ANU) Lab Interpretation (test Normal code = 70963-2) [facility] / [id number] 02:24:54 Test Item Value Reference Range Interpretation Comments PROTIME PATIENT (test See_Comment [Auto mated message] code = 5964-2) The system [employer] generated this result transmitted ref erence range: 12.0 - 1 4.7 Seconds. The re ference range was not u sed to interpret this result as normal/abnor mal. INR (test code = 6301-6) Nor mal INR <1.1; Warfarin Therap eutic range 2.0 to 3. 0 or 2.5 to 3.5, dep ending upon the indica tions. Lab Interpretation (test Normal code = 93249-6) [facility] / [id number] 02:24:54 Test Item Value Reference Range Interpretation Comments PROTIME PATIENT (test See_Comment [Auto mated message] code = 5964-2) The system [employer] generated this result transmitted ref erence range: 12.0 - 1 4.7 Seconds. The re ference range was not u sed to interpret this result as normal/abnor mal. INR (test code = 6301-6) Lab Interpretation (test Normal code = 06165-0) [facility]. METABOLIC PANEL (80153)2021-04-01 02:20:56 Test Item Value Reference Range Interpretation Comments NA (test code = 139 mmol/L 135-145 7303003549) K (test code = 3.6 mmol/L 3.5-5.0 0598646788) CL (test code = 98 mmol/L 98-108 5262568062) CO2 TOTAL (test code = 29 mmol/L 23-31 8252512010) AGAP (test code = 2-16 8815638270) BUN (test code = 17 mg/dL 7-23 6566108531) GLUCOSE (test code = 241 mg/dL 70-110 H 4379853700) CREATININE (test code = 0.98 mg/dL 0.60-1.25 6964388841) TOTAL BILI (test code = 0.5 mg/dL 0.1-1.0 2629093477) CALCIUM (test code = 9.5 mg/dL 8.6-10.6 9474849040) T PROTEIN (test code = 8.9 g/dL 6.3-8.2 H 6890956927) ALBUMIN (test code = 4.6 g/dL 3.5-5.0 2415305978) ALK PHOS (test code = 124 U/L 34-122 H 9600468205) ALTv (test code = 26 U/L 5-50 1742-6) AST(SGOT) (test code = 39 U/L 13-40 5767404528) eGFR (test code = mL/min/1.73m2 5858925918) ANU (test code = ANU) Association of [...] tests). Lab Interpretation Abnormal (test code = 23212-3) [facility]. METABOLIC PANEL (65640)2021-04-01 02:20:56 Test Item Value Reference Range Interpretation Comments NA (test code = 4448390517) 139 mmol/L 135-145 K (test code = 4416297738) 3.6 mmol/L 3.5-5.0 CL (test code = 0780787459) 98 mmol/L 98-108 CO2 TOTAL (test code = 9831328631) 29 mmol/L 23-31 AGAP (test code = 9456142627) 2-16 BUN (test code = 5603326512) 17 mg/dL 7-23 GLUCOSE (test code = 0416657104) 241 mg/dL 70-110 H CREATININE (test code = 0.98 mg/dL 0.60-1.25 3976904920) TOTAL BILI (test code = 0.5 mg/dL 0.1-1.0 0524833445) CALCIUM (test code = 6411806219) 9.5 mg/dL 8.6-10.6 T PROTEIN (test code = 3033608334) 8.9 g/dL 6.3-8.2 H ALBUMIN (test code = 5007054868) 4.6 g/dL 3.5-5.0 ALK PHOS (test code = 6631249997) 124 U/L 34-122 H ALTv (test code = 1742-6) 26 U/L 5-50 AST(SGOT) (test code = 7444349027) 39 U/L 13-40 eGFR (test code = 2521383556) mL/min/1.73m2 ANU (test code = ANU) Lab Interpretation (test code = Abnormal 01407-8) [facility]2021-[facility] 02:20:14 Test Item Value Reference Range Interpretation Comments LIPASE (test code = 0718025817) 74 U/L 0-220 Lab Interpretation (test code = Normal 02671-6) [facility]OVID[facility] (ID NOW RAPID TESTING)2021-04-01 02:20:14 Test Item Value Reference Range Interpretation Comments SARS-CoV-2 Rapid ID NOW Not Detected Not Detected (test code = 71250-1) ANU (test code = ANU) ID NOW COVID-19 Assay is an isothermal nucleic acid amplification test intended for the qualitative detection of nucleic acid from SARS-CoV-2 viral RNA in nasopharyngeal ([employer]) specimens. It is used under Emergency Use [...] indicated. Lab Interpretation Normal (test code = 88771-1) [facility]21-[facility]-31 02:20:14 Test Item Value Reference Range Interpretation Comments LIPASE (test code = 8073871837) 74 U/L 0-220 Lab Interpretation (test code = Normal 01616-0) [facility] (ID NOW RAPID TESTING)2021-04-01 02:20:14 Test Item Value Reference Range Interpretation Comments SARS-CoV-2 Rapid ID NOW (test Not Detected Not Detected code = 93144-3) ANU (test code = ANU) Lab Interpretation (test code = Normal 71959-1) [facility] HEAD WO [id number] 02:13:29No acute findings. HISTORY:Mental status change, unknown cause TECHNIQUE: Noncontrast head CT was performed. COMPARISON:01/10/2021. FINDINGS: The ventricles and sulci are appropriate for patient's age. There is no midline shift. The basal cisterns are preserved. No largevascular territory infarction, intracranial hemorrhage or mass effect isseen. The extracranial tissues demonstrate no acute findings.[facility], [facility] Results Inft User - 03/31/2021 9:14 PM CDT HISTORY:Mental status change, unknown cause TECHNIQUE: Noncontrast head CT was performed.COMPARISON:01/10/2021.FINDINGS:The ventricles and sulci are appropriate for patient's age.There is no midline shift. The basal cisterns are preserved. No largevascular territory infarction, intracranial hemorrhage or mass effect isseen.The extracranial tissues demonstrate no acute findings.IMPRESSIONNo acute findings.[facility] HEAD WO [id number] 02:13:29No acute findings. HISTORY:Mental status change, unknown cause TECHNIQUE: Noncontrast head CT was performed. COMPARISON:01/10/2021. FINDINGS: The ventricles and sulci are appropriate for patient's age. There is no midline shift. The basal cisterns are preserved. No largevascular territory infarction, intracranial hemorrhage or mass effect isseen. The extracranial tissues demonstrate no acute findings.[facility], [facility] Results In[facility] User - 03/31/2021 9:14 PM CDT HISTORY:Mental status change, unknown cause TECHNIQUE: Noncontrast head CT was performed.COMPARISON:01/10/2021.FINDINGS:The ventricles and sulci are appropriate for patient's age.There is no midline shift. The basal cisterns are preserved. No largevascular territory infarction, intracranial hemorrhage or mass effect isseen.The extracranial tissues demonstrate no acute findings.IMPRESSIONNo acute findings.[facility] WITH [id number] 02:05:52 Test Item Value Reference Range Interpretation [...] RDW-SD (test code = 44.7 fL 38.5-51.6 69162-6) RDW-CV (test code = 13.2 % 12.1-15.4 788-0) PLT (test code = See_Comment [Automated 777-3) message] The sy stem which generated this result transmitted reference range : 150 - 328 10*3/ ?L. The reference r dustin was not used to interpret this result as normal/abnormal . MPV (test code = 10.3 fL 9.8-13.0 16269-3) NRBC/100 WBC (test See_Comment [Automat ed code = 6664071926) message] The system which generated this result transmitted reference range : 0.0 - 10.0 /100 WBCs. The refer ence range was not u sed to interpret th is result as normal/abnormal . NRBC x10^3 (test code <0.01 See_Comment [Auto mated = 9368419713) message] The s ystem which generated this result transmitted reference range : 10*3/?L. The reference range was not used to interpret this result as normal/abnormal . GRAN MAT (NEUT) % 54.9 % (test code = 770-8) IMM GRAN % (test code 0.20 % = 7751188125) LYMPH % (test code = 34.3 % 736-9) MONO % (test code = 7.0 % 5905-5) EOS % (test code = 3.0 % 713-8) BASO % (test code = 0.6 % 706-2) GRAN MAT x10^3(ANC) 4.59 10*3/uL 1.99-6.95 (test code = 1818288884) IMM GRAN x10^3 (test <0.03 0.00-0.06 code = 2500673148) LYMPH x10^3 (test code 2.87 10*3/uL 1.09-3.23 = 731-0) MONO x10^3 (test code 0.59 10*3/uL 0.36-1.02 = 742-7) EOS x10^3 (test code = 0.25 10*3/uL 0.06-0.53 711-2) BASO x10^3 (test code 0.05 10*3/uL 0.01-0.09 = 704-7) Lab Interpretation Abnormal (test code = 03927-4) [facility] WITH [id number] 02:05:52 Test Item Value Reference Range Interpretation Comments WBC (test code = See_Comment [Automated 6590-2) message] The sy stem which generated this result transmitted reference range : 4.20 - 10.70 10*3/?L. The reference range was not used to interpret this result as normal/abnormal . RBC (test code = See_Comment L [Automated 009-8) message] The sy stem which generated this [...] RDW-SD (test code = 44.7 fL 38.5-51.6 01610-6) RDW-CV (test code = 13.2 % 12.1-15.4 788-0) PLT (test code = See_Comment [Automated 777-3) message] The sy stem which generated this result transmitted reference range : 150 - 328 10*3/ ?L. The reference r dustin was not used to interpret this result as normal/abnormal . MPV (test code = 10.3 fL 9.8-13.0 61862-2) NRBC/100 WBC (test See_Comment [Automat ed code = 1495072564) message] The system which generated this result transmitted reference range : 0.0 - 10.0 /100 WBCs. The refer ence range was not u sed to interpret th is result as normal/abnormal . NRBC x10^3 (test code <0.01 See_Comment [Auto mated = 5010868730) message] The s ystem which generated this result transmitted reference range : 10*3/?L. The reference range was not used to interpret this result as normal/abnormal . GRAN MAT (NEUT) % 54.9 % (test code = 770-8) IMM GRAN % (test code 0.20 % = 8252108302) LYMPH % (test code = 34.3 % 736-9) MONO % (test code = 7.0 % 5905-5) EOS % (test code = 3.0 % 713-8) BASO % (test code = 0.6 % 706-2) GRAN MAT x10^3(ANC) 4.59 10*3/uL 1.99-6.95 (test code = 1461130740) IMM GRAN x10^3 (test <0.03 0.00-0.06 code = 4214995244) LYMPH x10^3 (test code 2.87 10*3/uL 1.09-3.23 = 731-0) MONO x10^3 (test code 0.59 10*3/uL 0.36-1.02 = 742-7) EOS x10^3 (test code = 0.25 10*3/uL 0.06-0.53 711-2) BASO x10^3 (test code 0.05 10*3/uL 0.01-0.09 = 704-7) Lab Interpretation Abnormal (test code = 81793-2) [facility] [id number] 01:48:54 Test Item Value Reference Range Interpretation Comments PH (test code = 7.32-7.42 1006767114) PCO2 TAJ (test code = See_Comment H [Auto mated 9617096745) message] The sy stem which generated this result transmitted reference range : 41 - 51 mmHg. The reference range was not used to interpret this result as normal/abnormal . PO2 TAJ (test code = See_Comment [Autom ated 2983699121) message] The sy stem which generated this result transmitted reference range : 25 - 40 mmHg. The reference range was not used to interpret this result as normal/abnormal . HCO3 TAJ (test code = See_Comment [Auto mated 2105315349) message] The sy stem which generated this result transmitted reference range : 24 - 28 mEq/L. The reference range was not used to interpret this result as normal/abnormal . AC VBE(BEAKER) (test mEq/L code = 4158001829) THB TAJ (test code = 11.2 g/dL 13.5-18.0 L 0516899046) %O2HB TAJ (test code = 51.0 % 52.0-63.0 L 0983645275) %COHB TAJ (test code = 1.1 % 0.0-1.5 7643032796) %METHB TAJ (test code = 0.3 % 0.4-1.5 L 1565118817) VOL%O2 TAJ (test code = 8.0 % 6.0-12.0 6590180345) NA (test code = 138 mmol/L 135-145 7117518268) K+ (test code = 3.7 mmol/L 3.5-5.0 6206594592) AC CA IONZ (test code = 4.60 mg/dL 4.50-5.30 5632570448) GLUCOSE (test code = 236 mg/dL 70-110 H 7239391513) LACTIC ACID (test code 2.61 mmol/L 0.50-2.20 H = 9570304944) Lab Interpretation Abnormal (test code = 93615-9) [facility] [id number] 01:48:54 Test Item Value Reference Range Interpretation Comments PH (test code = 7.32-7.42 6337990232) PCO2 TAJ (test code = See_Comment H [Auto mated 2513663557) message] The sy stem which generated this result transmitted reference range : 41 - 51 mmHg. The reference range was not used to interpret this result as normal/abnormal . PO2 TAJ (test code = See_Comment [Autom ated 7562607958) message] The sy stem which generated this result transmitted reference range : 25 - 40 mmHg. The reference range was not used to interpret this result as normal/abnormal . HCO3 TAJ (test code = See_Comment [Auto mated 7399952082) message] The sy stem which generated this result transmitted reference range : 24 - 28 mEq/L. The reference range was not used to interpret this result as normal/abnormal . AC VBE(BEAKER) (test mEq/L code = 3759890554) THB TAJ (test code = 11.2 g/dL 13.5-18.0 L 2008048567) %O2HB TAJ (test code = 51.0 % 52.0-63.0 L 9973791958) %COHB TAJ (test code = 1.1 % 0.0-1.5 8624478689) %METHB TAJ (test code = 0.3 % 0.4-1.5 L 3577689740) VOL%O2 TAJ (test code = 8.0 % 6.0-12.0 8905143888) NA (test code = 138 mmol/L 135-145 8532865548) K+ (test code = 3.7 mmol/L 3.5-5.0 5228609501) AC CA IONZ (test code = 4.60 mg/dL 4.50-5.30 3688090756) GLUCOSE (test code = 236 mg/dL 70-110 H 5631591226) LACTIC ACID (test code 2.61 mmol/L 0.50-2.20 H = 1973110430) Lab Interpretation Abnormal (test code = 78389-2) [facility] GLUCOSE (AUTOMATED)2021-02-26 22:12:16 Test Item Value Reference Range Interpretation Comments POCT GLU (test code = 4448277490) 187 mg/dL 70-110 H Lab Interpretation (test code = Abnormal 77590-2) [facility] GLUCOSE (AUTOMATED)2021-02-26 17:17:18 Test Item Value Reference Range Interpretation Comments POCT GLU (test code = 4013106363) 189 mg/dL 70-110 H Lab Interpretation (test code = Abnormal 94448-9) [facility] GLUCOSE (AUTOMATED)2021-02-26 13:53:52 Test Item Value Reference Range Interpretation Comments POCT GLU (test code = 7619434995) 132 mg/dL 70-110 H Lab Interpretation (test code = Abnormal 55930-8) [facility] METABOLIC PANEL (NA, K, CL, CO2, GLUCOSE, BUN, CREATININE, CA)2021-02-26 11:27:38 Test Item Value Reference Range Interpretation Comments NA (test code = 142 mmol/L 135-145 2706539290) K (test code = 4.0 mmol/L 3.5-5.0 7100835887) CL (test code = 106 mmol/L 98-108 1572668675) CO2 TOTAL (test code = 25 mmol/L 23-31 9577273750) AGAP (test code = 2-16 6708820317) BUN (test code = 13 mg/dL 7-23 6423210381) GLUCOSE (test code = 129 mg/dL 70-110 H 5548609944) CREATININE (test code = 0.97 mg/dL 0.60-1.25 1320646241) CALCIUM (test code = 9.3 mg/dL 8.6-10.6 4066632404) eGFR (test code = mL/min/1.73m2 0078685283) ANU (test code = ANU) Association of [...] tests). Lab Interpretation Abnormal (test code = 88892-8) [facility] WITH [id number] 10:55:37 Test Item Value Reference Range Interpretation Comments WBC (test code = See_Comment [Automated 6190-2) message] The sy stem which generated this result transmitted reference range : 4.20 - 10.70 10*3/?L. The reference range was not used to interpret this result as normal/abnormal . RBC (test code = See_Comment L [Automated 408-8) message] The sy stem which generated this [...] RDW-SD (test code = 42.0 fL 38.5-51.6 46576-7) RDW-CV (test code = 12.7 % 12.1-15.4 788-0) PLT (test code = See_Comment [Automated 777-3) message] The sy stem which generated this result transmitted reference range : 150 - 328 10*3/ ?L. The reference r dustin was not used to interpret this result as normal/abnormal . MPV (test code = 9.5 fL 9.8-13.0 L 62768-3) NRBC/100 WBC (test See_Comment [Automat ed code = 3075132315) message] The system which generated this result transmitted reference range : 0.0 - 10.0 /100 WBCs. The refer ence range was not u sed to interpret th is result as normal/abnormal . NRBC x10^3 (test code <0.01 See_Comment [Auto mated = 1336418434) message] The s ystem which generated this result transmitted reference range : 10*3/?L. The reference range was not used to interpret this result as normal/abnormal . GRAN MAT (NEUT) % 59.7 % (test code = 770-8) IMM GRAN % (test code 0.50 % = 4864066564) LYMPH % (test code = 30.1 % 736-9) MONO % (test code = 6.8 % 5905-5) EOS % (test code = 2.3 % 713-8) BASO % (test code = 0.6 % 706-2) GRAN MAT x10^3(ANC) 5.13 10*3/uL 1.99-6.95 (test code = 5982146983) IMM GRAN x10^3 (test 0.04 10*3/uL 0.00-0.06 code = 4112709056) LYMPH x10^3 (test code 2.58 10*3/uL 1.09-3.23 = 731-0) MONO x10^3 (test code 0.58 10*3/uL 0.36-1.02 = 742-7) EOS x10^3 (test code = 0.20 10*3/uL 0.06-0.53 711-2) BASO x10^3 (test code 0.05 10*3/uL 0.01-0.09 = 704-7) Lab Interpretation Abnormal (test code = 65565-7) [facility] GLUCOSE (AUTOMATED)2021-02-26 02:24:21 Test Item Value Reference Range Interpretation Comments POCT GLU (test code = 8856446763) 226 mg/dL 70-110 H Lab Interpretation (test code = Abnormal 58071-6) [facility] Culture - Peripheral # [id number] 02:01:55 Test Item Value Reference Range Interpretation Comments Blood Culture-Aerobic No organisms No growth Previo us (test code = 27158-7) isolated prelim inary verified result was Culture [...] Culture-Anaerobic isolated preliminar y (test code = 11955-0) verifi ed result was Culture In Progress [...] CDT Lab Interpretation Normal (test code = 53495-7) [facility] Culture - Peripheral # 02:01:55 Test Item Value Reference Range Interpretation Comments Blood Culture-Aerobic No organisms No growth Previo us (test code = 93777-9) isolated prelim inary verified result was Culture [...] Culture-Anaerobic isolated preliminar y (test code = 94250-9) verifi ed result was Culture In Progress [...] CDT Lab Interpretation Normal (test code = 83817-2) [facility] GLUCOSE (AUTOMATED)2021-02-25 21:54:18 Test Item Value Reference Range Interpretation Comments POCT GLU (test code = 2804600391) 254 mg/dL 70-110 H Lab Interpretation (test code = Abnormal 22317-4) [facility] GLUCOSE (AUTOMATED)2021-02-25 16:06:47 Test Item Value Reference Range Interpretation Comments POCT GLU (test code = 4402858173) 178 mg/dL 70-110 H Lab Interpretation (test code = Abnormal 24022-9) [facility] GLUCOSE (AUTOMATED)2021-02-25 12:41:08 Test Item Value Reference Range Interpretation Comments POCT GLU (test code = 4546819305) 141 mg/dL 70-110 H Lab Interpretation (test code = Abnormal 45243-1) [facility] METABOLIC PANEL (NA, K, CL, CO2, GLUCOSE, BUN, CREATININE, CA)2021-02-25 09:30:31 Test Item Value Reference Range Interpretation Comments NA (test code = 140 mmol/L 135-145 7066407961) K (test code = 3.7 mmol/L 3.5-5.0 3509039090) CL (test code = 104 mmol/L 98-108 6546278889) CO2 TOTAL (test code = 27 mmol/L - 4947456503) AGAP (test code = 2-16 3781803130) BUN (test code = 9 mg/dL 7- 7389206459) GLUCOSE (test code = 143 mg/dL 70-110 H 9637026735) CREATININE (test code = 0.69 mg/dL 0.60-1.25 1653635324) CALCIUM (test code = 9.4 mg/dL 8.6-10.6 8822608299) eGFR (test code = mL/min/1.73m2 5179422530) ANU (test code = ANU) Association of [...] tests). Lab Interpretation Abnormal (test code = 28522-2) [facility] WITH [id number] 09:12:53 Test Item Value Reference Range Interpretation Comments WBC (test code = See_Comment [Automated 9990-2) message] The sy stem which generated this [...] RDW-SD (test code = 42.1 fL 38.5-51.6 16014-9) RDW-CV (test code = 12.7 % 12.1-15.4 788-0) PLT (test code = See_Comment L [Automated 777-3) message] The sy stem which generated this result transmitted reference range : 150 - 328 10*3/ ?L. The reference r dustin was not used to interpret this result as normal/abnormal . MPV (test code = 10.3 fL 9.8-13.0 31907-9) NRBC/100 WBC (test See_Comment [Automat ed code = 5633041970) message] The system which generated this result transmitted reference range : 0.0 - 10.0 /100 WBCs. The refer ence range was not u sed to interpret th is result as normal/abnormal . NRBC x10^3 (test code <0.01 See_Comment [Auto mated = 6549409319) message] The s ystem which generated this result transmitted reference range : 10*3/?L. The reference range was not used to interpret this result as normal/abnormal . GRAN MAT (NEUT) % 48.6 % (test code = 770-8) IMM GRAN % (test code 0.30 % = 8789773075) LYMPH % (test code = 38.6 % 736-9) MONO % (test code = 9.2 % 5905-5) EOS % (test code = 2.7 % 713-8) BASO % (test code = 0.6 % 706-2) GRAN MAT x10^3(ANC) 3.23 10*3/uL 1.99-6.95 (test code = 5667259467) IMM GRAN x10^3 (test <0.03 0.00-0.06 code = 2445352071) LYMPH x10^3 (test code 2.56 10*3/uL 1.09-3.23 = 731-0) MONO x10^3 (test code 0.61 10*3/uL 0.36-1.02 = 742-7) EOS x10^3 (test code = 0.18 10*3/uL 0.06-0.53 711-2) BASO x10^3 (test code 0.04 10*3/uL 0.01-0.09 = 704-7) Lab Interpretation Abnormal (test code = 18603-8) [facility] GLUCOSE (AUTOMATED)2021-02-25 02:15:28 Test Item Value Reference Range Interpretation Comments POCT GLU (test code = 204 mg/dL 70-110 H Notifi ed Provider 9934198713) Lab Interpretation (test Abnormal code = 90653-5) [facility]-25 00:03:48 Test Item Value Reference Range Interpretation Comments HGB A1C (test code = 7.8 % 4.0-5.7 H 4548-4) ANU (test code = ANU) Reference RangesNormal: <5.7%Prediabetes: 5.7 - 6.4%Diabetes: > 6.5% Lab Interpretation (test Abnormal code = 16786-8) [facility] GLUCOSE (AUTOMATED)2021-02-24 21:53:33 Test Item Value Reference Range Interpretation Comments POCT GLU (test code = 1248051655) 170 mg/dL 70-110 H Lab Interpretation (test code = Abnormal 27991-6) [facility] GLUCOSE (AUTOMATED)2021-02-24 16:39:31 Test Item Value Reference Range Interpretation Comments POCT GLU (test code = 2463783784) 147 mg/dL 70-110 H Lab Interpretation (test code = Abnormal 26386-7) [facility] GLUCOSE (AUTOMATED)2021-02-24 12:37:30 Test Item Value Reference Range Interpretation Comments POCT GLU (test code = 3975337774) 141 mg/dL 70-110 H Lab Interpretation (test code = Abnormal 42418-1) [facility] METABOLIC PANEL (NA, K, CL, CO2, GLUCOSE, BUN, CREATININE, CA)2021-02-24 09:52:22 Test Item Value Reference Range Interpretation Comments NA (test code = 141 mmol/L 135-145 6711803935) K (test code = 4.3 mmol/L 3.5-5.0 3972397429) CL (test code = 107 mmol/L 98-108 7017871253) CO2 TOTAL (test code = 26 mmol/L 23-31 9542935202) AGAP (test code = 2-16 0101842867) BUN (test code = 10 mg/dL 7-23 9976898292) GLUCOSE (test code = 145 mg/dL 70-110 H 2517619379) CREATININE (test code = 0.72 mg/dL 0.60-1.25 1344524015) CALCIUM (test code = 9.3 mg/dL 8.6-10.6 7525979015) eGFR (test code = mL/min/1.73m2 4170858308) ANU (test code = ANU) Association of [...] tests). Lab Interpretation Abnormal (test code = 05744-4) [facility] WITH [id number] 09:19:21 Test Item Value Reference Range Interpretation [...] RDW-SD (test code = 42.5 fL 38.5-51.6 31726-0) RDW-CV (test code = 12.8 % 12.1-15.4 788-0) PLT (test code = See_Comment L [Automated 777-3) message] The sy stem which generated this result transmitted reference range : 150 - 328 10*3/ ?L. The reference r dustin was not used to interpret this result as normal/abnormal . MPV (test code = 9.9 fL 9.8-13.0 77809-8) NRBC/100 WBC (test See_Comment [Automat ed code = 3135518134) message] The system which generated this result transmitted reference range : 0.0 - 10.0 /100 WBCs. The refer ence range was not u sed to interpret th is result as normal/abnormal . NRBC x10^3 (test code <0.01 See_Comment [Auto mated = 2176329691) message] The s ystem which generated this result transmitted reference range : 10*3/?L. The reference range was not used to interpret this result as normal/abnormal . GRAN MAT (NEUT) % 47.7 % (test code = 770-8) IMM GRAN % (test code 0.20 % = 9858217144) LYMPH % (test code = 39.0 % 736-9) MONO % (test code = 10.3 % 5905-5) EOS % (test code = 2.3 % 713-8) BASO % (test code = 0.5 % 706-2) GRAN MAT x10^3(ANC) 2.96 10*3/uL 1.99-6.95 (test code = 7481149879) IMM GRAN x10^3 (test <0.03 0.00-0.06 code = 2761703968) LYMPH x10^3 (test code 2.42 10*3/uL 1.09-3.23 = 731-0) MONO x10^3 (test code 0.64 10*3/uL 0.36-1.02 = 742-7) EOS x10^3 (test code = 0.14 10*3/uL 0.06-0.53 711-2) BASO x10^3 (test code 0.03 10*3/uL 0.01-0.09 = 704-7) Lab Interpretation Abnormal (test code = 73810-5) [facility] GLUCOSE (AUTOMATED)2021-02-24 01:42:01 Test Item Value Reference Range Interpretation Comments POCT GLU (test code = 6710035128) 178 mg/dL 70-110 H Lab Interpretation (test code = Abnormal 40245-3) [facility] GLUCOSE (AUTOMATED)2021-02-23 22:46:27 Test Item Value Reference Range Interpretation Comments POCT GLU (test code = 7217750907) 156 mg/dL 70-110 H Lab Interpretation (test code = Abnormal 64075-6) [facility] GLUCOSE (AUTOMATED)2021-02-23 16:57:14 Test Item Value Reference Range Interpretation Comments POCT GLU (test code = 9014538407) 185 mg/dL 70-110 H Lab Interpretation (test code = Abnormal 68303-0) [facility] GLUCOSE (AUTOMATED)2021-02-23 14:09:23 Test Item Value Reference Range Interpretation Comments POCT GLU (test code = 3250285105) 180 mg/dL 70-110 H Lab Interpretation (test code = Abnormal 61372-4) [facility] METABOLIC PANEL (NA, K, CL, CO2, GLUCOSE, BUN, CREATININE, CA)2021-02-23 09:26:37 Test Item Value Reference Range Interpretation Comments NA (test code = 141 mmol/L 135-145 6273249603) K (test code = 3.9 mmol/L 3.5-5.0 6243180164) CL (test code = 111 mmol/L 98-108 H 9822551054) CO2 TOTAL (test code = 23 mmol/L 23-31 2611095516) AGAP (test code = 2-16 2717066337) BUN (test code = 12 mg/dL 7-23 2469214273) GLUCOSE (test code = 164 mg/dL 70-110 H 2780521204) CREATININE (test code = 0.78 mg/dL 0.60-1.25 3641919404) CALCIUM (test code = 9.1 mg/dL 8.6-10.6 0424649675) eGFR (test code = mL/min/1.73m2 6809959157) ANU (test code = ANU) Association of [...] tests). Lab Interpretation Abnormal (test code = 71240-3) [facility] WITH [id number] 09:04:37 Test Item Value Reference Range Interpretation Comments WBC (test code = See_Comment [Automated 8835-2) message] The sy stem which generated this result transmitted reference range : 4.20 - 10.70 10*3/?L. The reference range was not used to interpret this result as normal/abnormal . RBC (test code = See_Comment L [Automated 729-8) message] The sy stem which generated this [...] RDW-SD (test code = 43.5 fL 38.5-51.6 45710-7) RDW-CV (test code = 12.8 % 12.1-15.4 788-0) PLT (test code = See_Comment L [Automated 777-3) message] The sy stem which generated this result transmitted reference range : 150 - 328 10*3/ ?L. The reference r dustin was not used to interpret this result as normal/abnormal . MPV (test code = 10.1 fL 9.8-13.0 49677-3) NRBC/100 WBC (test See_Comment [Automat ed code = 1499488286) message] The system which generated this result transmitted reference range : 0.0 - 10.0 /100 WBCs. The refer ence range was not u sed to interpret th is result as normal/abnormal . NRBC x10^3 (test code <0.01 See_Comment [Auto mated = 4626477076) message] The s ystem which generated this result transmitted reference range : 10*3/?L. The reference range was not used to interpret this result as normal/abnormal . GRAN MAT (NEUT) % 57.5 % (test code = 770-8) IMM GRAN % (test code 0.30 % = 5453589374) LYMPH % (test code = 31.0 % 736-9) MONO % (test code = 8.6 % 5905-5) EOS % (test code = 2.3 % 713-8) BASO % (test code = 0.3 % 706-2) GRAN MAT x10^3(ANC) 3.73 10*3/uL 1.99-6.95 (test code = 7597931215) IMM GRAN x10^3 (test <0.03 0.00-0.06 code = 8341679062) LYMPH x10^3 (test code 2.01 10*3/uL 1.09-3.23 = 731-0) MONO x10^3 (test code 0.56 10*3/uL 0.36-1.02 = 742-7) EOS x10^3 (test code = 0.15 10*3/uL 0.06-0.53 711-2) BASO x10^3 (test code <0.03 0.01-0.09 = 704-7) Lab Interpretation Abnormal (test code = 84277-6) [facility] GLUCOSE (AUTOMATED)2021-02-23 02:29:54 Test Item Value Reference Range Interpretation Comments POCT GLU (test code = 1867677010) 155 mg/dL 70-110 H Lab Interpretation (test code = Abnormal 58076-0) [facility] GLUCOSE (AUTOMATED)2021-02-22 22:51:30 Test Item Value Reference Range Interpretation Comments POCT GLU (test code = 6592691510) 176 mg/dL 70-110 H Lab Interpretation (test code = Abnormal 86563-9) [facility] GLUCOSE (AUTOMATED)2021-02-22 17:09:21 Test Item Value Reference Range Interpretation Comments POCT GLU (test code = 7440232303) 194 mg/dL 70-110 H Lab Interpretation (test code = Abnormal 23589-6) [facility] METABOLIC PANEL (NA, K, CL, CO2, GLUCOSE, BUN, CREATININE, CA)2021-02-22 11:26:26 Test Item Value Reference Range Interpretation Comments NA (test code = 136 mmol/L 135-145 7168910283) K (test code = 3.9 mmol/L 3.5-5.0 5311045132) CL (test code = 108 mmol/L 98-108 3149031762) CO2 TOTAL (test code 25 mmol/L 23-31 = [id number]) AGAP (test code = 2-16 [id number]) BUN (test code = 14 mg/dL 7-23 3290209269) GLUCOSE (test code = 109 mg/dL 70-110 0947663023) CREATININE (test code 0.84 mg/dL 0.60-1.25 = [id number]) CALCIUM (test code = 8.6 mg/dL 8.6-10.6 1402004818) eGFR (test code = mL/min/1.73m2 6730748271) ANU (test code = ANU) Association of [...] or urine or abnormalities in imaging tests). [facility] WITH [id number] 10:58:44 Test Item Value Reference Range Interpretation Comments WBC (test code = See_Comment [Automated 5090-2) message] The sy stem which generated this [...] RDW-SD (test code = 44.7 fL 38.5-51.6 37326-4) RDW-CV (test code = 12.8 % 12.1-15.4 788-0) PLT (test code = See_Comment L [Automated 777-3) message] The sy stem which generated this result transmitted reference range : 150 - 328 10*3/ ?L. The reference r dustin was not used to interpret this result as normal/abnormal . MPV (test code = 10.5 fL 9.8-13.0 03775-3) NRBC/100 WBC (test See_Comment [Automat ed code = 5432576104) message] The system which generated this result transmitted reference range : 0.0 - 10.0 /100 WBCs. The refer ence range was not u sed to interpret th is result as normal/abnormal . NRBC x10^3 (test code <0.01 See_Comment [Auto mated = 5545890588) message] The s ystem which generated this result transmitted reference range : 10*3/?L. The reference range was not used to interpret this result as normal/abnormal . GRAN MAT (NEUT) % 51.1 % (test code = 770-8) IMM GRAN % (test code 0.30 % = 4887400418) LYMPH % (test code = 36.1 % 736-9) MONO % (test code = 10.3 % 5905-5) EOS % (test code = 1.7 % 713-8) BASO % (test code = 0.5 % 706-2) GRAN MAT x10^3(ANC) 3.31 10*3/uL 1.99-6.95 (test code = 9074268875) IMM GRAN x10^3 (test <0.03 0.00-0.06 code = 4493180697) LYMPH x10^3 (test code 2.34 10*3/uL 1.09-3.23 = 731-0) MONO x10^3 (test code 0.67 10*3/uL 0.36-1.02 = 742-7) EOS x10^3 (test code = 0.11 10*3/uL 0.06-0.53 711-2) BASO x10^3 (test code 0.03 10*3/uL 0.01-0.09 = 704-7) Lab Interpretation Abnormal (test code = 50767-9) [facility] GLUCOSE (AUTOMATED)2021-02-22 02:14:29 Test Item Value Reference Range Interpretation Comments POCT GLU (test code = 6339124739) 151 mg/dL 70-110 H Lab Interpretation (test code = Abnormal 31323-6) [facility] GLUCOSE (AUTOMATED)2021-02-21 21:29:33 Test Item Value Reference Range Interpretation Comments POCT GLU (test code = 1417306533) 147 mg/dL 70-110 H Lab Interpretation (test code = Abnormal 39527-2) [facility] GLUCOSE (AUTOMATED)2021-02-21 17:20:58 Test Item Value Reference Range Interpretation Comments POCT GLU (test code = 3453125289) 155 mg/dL 70-110 H Lab Interpretation (test code = Abnormal 04015-5) [facility] GLUCOSE (AUTOMATED)2021-02-21 14:49:36 Test Item Value Reference Range Interpretation Comments POCT GLU (test code = 7810030585) 146 mg/dL 70-110 H Lab Interpretation (test code = Abnormal 89054-8) [facility] WITH [id number] 11:59:53 Test Item Value Reference Range Interpretation [...] RDW-SD (test code = 43.3 fL 38.5-51.6 82832-5) RDW-CV (test code = 12.8 % 12.1-15.4 788-0) PLT (test code = See_Comment L [Automated 777-3) message] The sy stem which generated this result transmitted reference range : 150 - 328 10*3/ ?L. The reference r dustin was not used to interpret this result as normal/abnormal . MPV (test code = 9.9 fL 9.8-13.0 24022-0) NRBC/100 WBC (test See_Comment [Automat ed code = 8273454439) message] The system which generated this result transmitted reference range : 0.0 - 10.0 /100 WBCs. The refer ence range was not u sed to interpret th is result as normal/abnormal . NRBC x10^3 (test code <0.01 See_Comment [Auto mated = 4459989753) message] The s ystem which generated this result transmitted reference range : 10*3/?L. The reference range was not used to interpret this result as normal/abnormal . GRAN MAT (NEUT) % 66.2 % (test code = 770-8) IMM GRAN % (test code 0.50 % = 8450435437) LYMPH % (test code = 20.0 % 736-9) MONO % (test code = 12.7 % 5905-5) EOS % (test code = 0.3 % 713-8) BASO % (test code = 0.3 % 706-2) GRAN MAT x10^3(ANC) 6.16 10*3/uL 1.99-6.95 (test code = 5853705832) IMM GRAN x10^3 (test 0.05 10*3/uL 0.00-0.06 code = 8408658113) LYMPH x10^3 (test code 1.86 10*3/uL 1.09-3.23 [...] . Lab Interpretation Abnormal (test code = 17923-8) [facility] Qlgio3405-25-91 11:54:57 Test Item Value Reference Range Interpretation Comments PHOSPHORUS (test code = 8463380307) 3.7 mg/dL 2.5-5.0 Lab Interpretation (test code = Normal 33932-4) [facility] MET[facility]OLIC PANEL (NA, K, CL, CO2, GLUCOSE, BUN, CREATININE, CA)2021-02-21 11:54:56 Test Item Value Reference Range Interpretation Comments NA (test code = 136 mmol/L 135-145 2544677299) K (test code = 3.6 mmol/L 3.5-5.0 6386225679) CL (test code = 104 mmol/L 98-108 7233033467) CO2 TOTAL (test code = 23 mmol/L 23-31 6435237822) AGAP (test code = 2-16 3947665805) BUN (test code = 17 mg/dL 7-23 6328292568) GLUCOSE (test code = 176 mg/dL 70-110 H 1739517461) CREATININE (test code = 0.82 mg/dL 0.60-1.25 6481044148) CALCIUM (test code = 8.6 mg/dL 8.6-10.6 7384860143) eGFR (test code = mL/min/1.73m2 8084236805) ANU (test code = ANU) Association of [...] tests). Lab Interpretation Abnormal (test code = 04492-8) [facility]HEPAT[facility] FUNCTION PANEL (32857) (ALB,T.PRO,BILI T,BU/BC,ALT,AST,ALK PHOS)2021-02-21 11:54:56 Test Item Value Reference Range Interpretation Comments TOTAL BILI (test code = 0276126179) 0.6 mg/dL 0.1-1.1 BILI UNCON (test code = 0901350467) 0.3 mg/dL 0.1-1.1 BILI CONJ (test code = 9072451902) 0.0 mg/dL 0.0-0.3 T PROTEIN (test code = 8904588894) 7.4 g/dL 6.3-8.2 ALBUMIN (test code = 5790430840) 3.7 g/dL 3.5-5.0 ALK PHOS (test code = 7877551579) 87 U/L 34-122 ALTv (test code = 1742-6) 15 U/L 5-50 AST(SGOT) (test code = 1979939741) 28 U/L 13-40 Lab Interpretation (test code = Normal 93489-9) [facility] TexasMagnesium Uoywn7354-24-94 11:54:56 Test Item Value Reference Range Interpretation Comments MAGNESIUM (test code = 0933833214) 1.5 mg/dL 1.7-2.4 L Lab Interpretation (test code = Abnormal 65512-3) [facility] TexasProthrombin Time / [id number] 11:47:31 Test Item Value Reference Range Interpretation Comments PROTIME PATIENT (test See_Comment H [Auto mated message] code = 5964-2) The system [employer] generated this result transmitted ref erence range: 10.1 - 1 2.6 Seconds. The reference range was not used to int erpret this result as normal/abnormal . INR (test code = 6301-6) Nor mal INR <1.1; Warfarin Therap eutic range 2.0 to 3. 0 or 2.5 to 3.5, dep ending upon the indica tions. Lab Interpretation (test Abnormal code = 23500-4) [facility] TexasaPTT2021-07-23 11:47:31 Test Item Value Reference Range Interpretation Comments APTT Patient (test code = See_Comment [ Automated message] 3173-2) The system [employer] generated this result transmitted ref erence range: 26 - 36 Seconds. The re ference range was not u sed to interpret this result as normal/abnor mal. Lab Interpretation (test Normal code = 25042-6) [facility] TexasLactic Acid Whole Ljgxo2276-61-23 11:28:22 Test Item Value Reference Range Interpretation Comments LACTIC ACID (test code = 1.83 mmol/L 0.50-2.20 1315075160) Lab Interpretation (test code = Normal 45707-5) [facility] TexasCT ABDOMEN PELVIS W [id number] 03:45:35 Thickening of the distal gastric wall, with mild mucosal enhancement,possibly reflecting gastritis or peptic ulcer disease. 16 mm left adrenal nodule, indeterminate by density. Comparison with anyprior noncontrast CT of the chest or abdomen or follow-up with renal massprotocol imaging could be considered. RL: 460 AFC: 49614 Ordering physician: ELSA LANDRY Indication: Acute abdominal pain, fever COMPARISON: None TECHNIQUE: Axial images of the abdomen and pelvis are performed followingadministration of intravenous contrast m aterial. Images were reformatted inthe coronal and sagittal plane. CT scan was performed according to ALARA(as low as reasonably achievable) policy. FINDINGS: The lung bases are clear. The liver, gallbladder, spleen, rightadrenal gland and pancreas are within normal limits. There is a 16 mm leftadrenal nodule, indeterminate by density. The right kidney is unremarkable.The left kidney is absent. Thereis no abdominal aortic aneurysm ordissection. There is thickening of the distal gastric wall, with mildmucosal enhancement. There is no free fluid in the pelvis. There is no bowel obstruction,widespread diverticulosis or acute diverticulitis. The appendix isidentified and within normal limits. ?Bone wi ndows through the abdomen andpelvis demonstrate no osseous destructive lesion. The patient is statuspost bilateral hip arthroplasty. [facility], Radiant Results Inft User - 02/20/2021 10:46 PM CDT Ordering physician: ELSA LANDRYIndication: Acute abdominal pain, feverCOMPARISON: NoneTECHNIQUE: Axial images of the abdomen and pelvis are performed followingadministration of intravenous contrast material. Images were reformatted inthe coronal andsagittal plane. CT scan was performed according to ALARA(as low as reasonably achievable) policy.FINDINGS: The lung bases are clear. The liver, gallbladder, spleen, rightadrenal gland and pancreas are w ithin normal limits. There is a 16 mm leftadrenal nodule, indeterminate by density. The right kidneyis unremarkable.The left kidney is absent. There is no abdominal aortic aneurysm ordissection. Thereis thickening of the distal gastric wall, with mildmucosal enhancement.There is no free fluid in thepelvis. There is no bowel obstruction,widespread diverticulosis or acute diverticulitis. The appendix isidentified and within normal limits. Bone windows through the abdomen andpelvis demonstrate no osseous destructive lesion. The patient is statuspost bilateral hip arthroplasty.IMPRESSIONThickening of the distal gastric wall, with mild mucosal enhancement,possibly reflecting gastritis or peptic ulcer disease.16 mm left adrenal nodule, indeterminate by density. Comparison with anyprior noncontrast CT of the chest or abdomen or follow-up with renal massprotocol imaging could be considered.RL: 460AFC: 88216 [facility] TexasXR CHEST 1 [id number] 03:38:53No radiographic evidence for acute cardiopulmonary abnormality. RL: 111 EXAMINATION:XR CHEST 1 VW ORDERING PHYSICIAN: ELSA LANDRY CLINICAL HISTORY: Fever ; COMPARISON:Chest one view dated 01/14/2021 TECHNIQUE:Single frontal view of the chest FINDINGS:Lungs are well expanded. No pulmonary consolidation or confluentpulmonary opacity. No pneumothorax or pleural effusion. Cardiomediastinalsilhouette is within normal limits. Degenerativechanges of the thoracicspine. [facility], Radiant Results Inft User - 02/20/2021 10:39 PM CDTFormatting ofthis note might be different from the original.EXAMINATION:XR CHEST 1 VWORDERING PHYSICIAN: ELSA BENSONARIMACLINICAL HISTORY: Fever ;COMPARISON:Chest one view dated 01/14/2021TECHNIQUE:Single frontal view of the chestFINDINGS:Lungs are well expanded. No pulmonary consolidation or confluentpulmonary opacity. No pneumothorax or pleural effusion. Cardiomediastinalsilhouette is within normal limits. Degenerative changes of the thoracicspine.IMPRESSIONNo radiographic evidence for acute cardiopulmonary abnormality.RL: 111 [facility] [id number] 01:47:17 Test Item Value Reference Interpretation Comments Range TROPONIN I (test 0.030 ng/mL See_Comment [Automated code = 0290165626) message] The system which generated this result [...] biotin. Lab Interpretation Normal (test code = 99498-7) [facility] TexasURINALYSIS2021-07-23 01:47:06 Test Item Value Reference Range Interpretation Comments APPEARANCE (test code = Cloudy Clear A 5693192019) COLOR (test code = Dona Yellow A 0921238878) PH (test code = 4.8-8.0 5272018525) SP GRAVITY (test code = 1.003-1.030 4684211932) GLU U QUAL (test code = Normal Normal 2720178903) BLOOD (test code = 2+ Negative A 7999146793) KETONES (test code = Negative Negative 0478978323) PROTEIN (test code = 100 mg/dL Negative A 2887-8) UROBILIN (test code = Normal Normal 9928346938) BILIRUBIN (test code = Negative Negative 8639740693) NITRITE (test code = Negative Negative 8414017314) LEUK MIGDALIA (test code = 250/uL Negative A 2242861009) RBC/HPF (test code = See_Comment H [Autom ated message] 2458526081) The system [employer] generated this result transmit elaine reference range : 0 - 3 HPF. The refe rence range was not u sed to interpret th is result as normal/abnormal . WBC/HPF (test code = >182 See_Comment H [Autom ated message] 1272456130) The system [employer] generated this result transmit elaine reference range : 0 - 5 HPF. The refe rence range was not u sed to interpret th is result as normal/abnormal . BACTERIA (test code = Many Negative A 2537394231) AMORPHOUS (test code = Few Rare HPF A 7331467642) WBC CLUMPS (test code = See_Comment H [Au tomated message] 0187817918) The system [employer] generated this result transmit elaine reference range : <=1 HPF. The refere nce range was not u sed to interpret th is result as normal/abnormal . Lab Interpretation (test Abnormal code = 62241-7) [facility]HEPATIC FUNCTION PANEL (02850) (ALB,T.PRO,BILI T,BU/BC,ALT,AST,ALK PHOS)2021-02-21 01:36:37 Test Item Value Reference Range Interpretation Comments TOTAL BILI (test code = 5984174150) 0.6 mg/dL 0.1-1.1 BILI UNCON (test code = 3683987706) 0.4 mg/dL 0.1-1.1 BILI CONJ (test code = 5258305606) 0.0 mg/dL 0.0-0.3 T PROTEIN (test code = 0458741593) 9.2 g/dL 6.3-8.2 H ALBUMIN (test code = 7111559945) 4.7 g/dL 3.5-5.0 ALK PHOS (test code = 1912995445) 126 U/L 34-122 H ALTv (test code = 1742-6) 18 U/L 5-50 AST(SGOT) (test code = 6331153436) 38 U/L 13-40 Lab Interpretation (test code = Abnormal 76159-2) [facility]. METABOLIC PANEL (93848)2021-02-21 01:36:36 Test Item Value Reference Range Interpretation Comments NA (test code = 138 mmol/L 135-145 0815509639) K (test code = 4.4 mmol/L 3.5-5.0 0976637411) CL (test code = 100 mmol/L 98-108 0212284494) CO2 TOTAL (test code = 25 mmol/L 23-31 8419656147) AGAP (test code = 2-16 8731659289) BUN (test code = 19 mg/dL 7-23 6619631664) GLUCOSE (test code = 195 mg/dL 70-110 H 6016630222) CREATININE (test code = 0.90 mg/dL 0.60-1.25 6492443247) TOTAL BILI (test code = 0.6 mg/dL 0.1-1.9 5399116605) CALCIUM (test code = 9.8 mg/dL 8.6-10.6 0132933251) T PROTEIN (test code = 9.2 g/dL 6.3-8.2 H 2561209265) ALBUMIN (test code = 4.7 g/dL 3.5-5.0 4788755424) ALK PHOS (test code = 126 U/L 34-122 H 2533492643) ALTv (test code = 18 U/L 5-50 1742-6) AST(SGOT) (test code = 38 U/L 13-40 0371412233) eGFR (test code = mL/min/1.73m2 2510418713) ANU (test code = ANU) Association of [...] tests). Lab Interpretation Abnormal (test code = 62973-4) [facility] TexasLIPASE2021-07-23 01:36:16 Test Item Value Reference Range Interpretation Comments LIPASE (test code = 2144244869) 50 U/L 0-220 Lab Interpretation (test code = Normal 17368-6) [facility] TexasCOVID-19 (ID NOW RAPID TESTING)2021-02-21 01:35:20 Test Item Value Reference Range Interpretation Comments SARS-CoV-2 Rapid ID NOW Not Detected Not Detected (test code = 86749-5) ANU (test code = ANU) ID NOW COVID-19 Assay is an isothermal nucleic acid amplification test intended for the qualitative detection of nucleic acid from SARS-CoV-2 viral RNA in nasopharyngeal ([employer]) specimens. It is used under Emergency Use [...] indicated. Lab Interpretation Normal (test code = 30434-9) [facility] WITH [id number] 01:28:19 Test Item Value Reference Range Interpretation Comments WBC (test code = See_Comment [Automated 3790-2) message] The sy stem which generated this result transmitted reference range : 4.20 - 10.70 10*3/?L. The reference range was not used to interpret this result as normal/abnormal . RBC (test code = See_Comment L [Automated 229-8) message] The sy stem which generated this [...] RDW-SD (test code = 43.2 fL 38.5-51.6 32162-3) RDW-CV (test code = 12.5 % 12.1-15.4 788-0) PLT (test code = See_Comment [Automated 777-3) message] The sy stem which generated this result transmitted reference range : 150 - 328 10*3/ ?L. The reference r dustin was not used to interpret this result as normal/abnormal . MPV (test code = 10.1 fL 9.8-13.0 87407-3) NRBC/100 WBC (test See_Comment [Automat ed code = 8084650210) message] The system which generated this result transmitted reference range : 0.0 - 10.0 /100 WBCs. The refer ence range was not u sed to interpret th is result as normal/abnormal . NRBC x10^3 (test code <0.01 See_Comment [Auto mated = 6110032432) message] The s ystem which generated this result transmitted reference range : 10*3/?L. The reference range was not used to interpret this result as normal/abnormal . GRAN MAT (NEUT) % 78.2 % (test code = 770-8) IMM GRAN % (test code 0.60 % = 0645273722) LYMPH % (test code = 11.1 % 736-9) MONO % (test code = 9.2 % 5905-5) EOS % (test code = 0.4 % 713-8) BASO % (test code = 0.5 % 706-2) GRAN MAT x10^3(ANC) 7.80 10*3/uL 1.99-6.95 H (test code = 4992378226) IMM GRAN x10^3 (test 0.06 10*3/uL 0.00-0.06 code = 7791418094) LYMPH x10^3 (test code 1.11 10*3/uL 1.09-3.23 = 731-0) MONO x10^3 (test code 0.92 10*3/uL 0.36-1.02 = 742-7) EOS x10^3 (test code = 0.04 10*3/uL 0.06-0.53 L 711-2) BASO x10^3 (test code 0.05 10*3/uL 0.01-0.09 = 704-7) Lab Interpretation Abnormal (test code = 24631-6) [facility] TexasLactic Acid Whole [id number] 01:04:41 Test Item Value Reference Range Interpretation Comments LACTIC ACID (test code = 2.15 mmol/L 0.50-2.20 1065983195) Lab Interpretation (test code = Normal 22306-6) [facility] TexasCT Chest Wo Tfznabyu5085-25-62 18:55:19 EXAMINATION:CT CHEST WO CONTRAST CLINICAL HISTORY:R06.02 [...] no acute upper abdominal finding.6.No acute skeletal ab normalities seen. IMPRESSION:No acute cardiopulmonary disease. [id number] Interface, Radiology Results 11/07/2020 1:58 PM CDT EXAMINATION:CT CHEST WO CONTRASTCLINICAL HISTORY:R06.02 Shortness of breath, SOBTECHNIQUE:Multiple axial images of the chest were obtained without intravenous contrast. The lack of intravenous contrastreduces the sensitivity of detecting solid organ disease [...] seen.4.The heart size is normal.5.There is a stablebenign 14 mm left adrenal nodule. There is no acute upper abdominal finding.6.No acute skeletal abnormalities seen.IMPRESSION:No acute cardiopulmonary disease.[id number] 2019-10-02 16:50:00 Test Item Value Reference Range Interpretation Comments GLUCOSE BEDSIDE TESTING (test code = 98 mg/dL 70-110 N GLUBED) - XR FLUOROSCOPY 0-60 [id number] 16:05:00 Name: DAVID LOPEZ [place] : 1955 Age/S: 64 / M [address] Unit #: [id number] Loc: [place] [address] Phys: Trever Calvillo MD Acct: [id number] Dis Date: Status[facility] [phone] Exam Date: 10/02/2019 1500 FAX #: Reason: LEFT FEMUR JUN PLATE REMOVAL EXAMS:CPT: [id number] XR FLUOROSCOPY 0-60 MIN 48397 Fluoro Time: 17 SEC DAP (Gy m2): Air Kerma (mGy): EXAM:- XR FLUOROSCOPY 0-60 MIN HISTORY: LEFT FEMUR JUN PLATE REMOVAL Location code:B2 COMPARISON: CT lower extremity 09/19/2019 FINDINGS: Intraoperative fluoroscopy was provided for orthopedic procedure/partial hardware removal. Radiologist was not present for the procedure. 5 fluoroscopy images were obtained. Please see official surgical report for additional detailed findings. IMPRESSION: 1. As above. Fluoroscopy time: 17.6 seconds Cumulative dose: 1.0 mGy at 1605 Reported and signed by: Sudha Magallanes M.D. CC: Candido Calvillo MD PAGE 1 Signed Report Name: DAVID LOPEZ [place] : 1955 Age/S: 64/ M [address] Unit #: [id number] Loc: [place] [address] Phys: Trever Calvillo MD Acct: [id number] Dis Date: Status: REG [facility] PHONE #: [phone] Exam Date: 10/02/2019 1500 FAX #: Reason: LEFT FEMUR JUN PLATE REMOVAL EXAMS: CPT: [id number] XR FLUOROSCOPY 0-60 MIN 19528 Fluoro Time: 17 SECDAP (Gy m2): Air Kerma (mGy): <Continued> Technologist: Raine Vera RT(R) Trnscb Date/Time: 10/02/2019 (1605) [id number] Orig Print D/T: S: 10/02/2019 (0901) PAGE 2 Signed ReportUA RFLX MICR CULT IF [id number] 08:47:00 Test Item Value Reference Range Interpretation [...] PRE OP EVALUA RFLX MICR CULT IF [id number] 08:46:00 Test Item Value Reference Range Interpretation [...] Dysuria/FrequencySpec Comments: INDICATION: PRE OP EVALBASIC METABOLIC [id number] 07:29:00 Test Item Value Reference Range Interpretation [...] CA) 9.1 MG/DL 8.5-10.1 N VITAMIN D 89-[id number] 07:29:00 Test Item Value Reference Range Interpretation Comments VITAMIN D 14.1 ng/mL 30.0-100.0 A Vitamin D defic iency has 25-HYDROXY (test been define d by the code = VITD25) [facility] and an Endocrine [facility] guidel ine as alevel of serum 25-OH vitamin D less than 20 ng/mL (1,2).The Endocrine Society went on to further define vitamin Dinsufficiency as a level between 21 and 29 ng/mL (2).1. IOM (Ins titute of Medicine). 2010 . Dietary reference intak es for calcium and D. [place]: [employer] .2. Sailaja MF, Antonio DELEON, Dianna moody MOSER, et al. Evaluation, treatment, and prevention of vitamin D de ficiency: an Endocrine [facility] clinical practi ce guideline. JCEM . 2010; 96(3):1911-30.P erformed At: [facility] [address] [place], [place] [id number] Trever Ac MD Ph:[phone] BASIC METABOLIC [id number] 07:08:00 Test Item Value Reference Range Interpretation [...] CA) 9.1 MG/DL 8.5-10.1 N VITAMIN D 90-[id number] 07:08:00 Test Item Value Reference Range Interpretation Comments VITAMIN D 25-HYDROXY (test code = 14.1 VITD25) CBC W/AUTO [id number] 14:54:00 Test Item Value Reference Range Interpretation [...] code = NO DIFF/SCN CRITERIA MDIFF) SED [id number] 14:54:00 Test Item Value Reference Range Interpretation Comments SED RATE (test code = SEDW) 80 mm/hr 0-20 H - XR CHEST 2 [id number] 14:38:00 Name: DAVID LOPEZ [facility] : 1955 Age/S: 64 / M [address] Unit #: [id number] Loc: [place] [address] Phys: Trever Calvillo MD Acct: [id number] Dis Date: Status: PRE [facility] PHONE #: [phone] Exam Date: 09/19/2019 1400 FAX #: Reason: PREOP EXAMS: CPT: [id number] XR CHEST 2 V 53635 Fluoro Time: DAP (Gy m2): Air Kerma (mGy): EXAMINATION: - XR CHEST 2 V. LOCATION: S17. HISTORY: PREOP, T84.398A. COMPARISON: None. FINDINGS: Cardiac silhouette/Mediastinal contour: Within no rmal limits. Atherosclerotic calcification of aortic arch. Lungs: No focal consolidation. No pleuraleffusion. Osseous Structures: Degenerative changes of thoracic spine, including both shoulders. IMPRESSION: No focal consolidation. at 1438 Reported and signed by: Harsh Hendrix M.D. CC: Trever Calvillo MD PAGE 1 Signed Report Name: [place] : 1955 Age/S: 64 / M [address] Unit #: [id number] Loc: [place] [address] Phys: Trever Calvillo MD Acct: [id number] Dis Date: Status:PRE SDC PHONE #: [phone] Exam Date: 09/19/2019 1400 FAX #: Reason: PREOP EXAMS: CPT: [id number] XR CHEST 2 V 94321 Fluoro Time: DAP (Gy m2): Air Kerma (mGy): <Continued> Technologist: Raine Vera, RT(R) Trnscb Date/Time: 09/19/2019 (1438) [email or web address] Orig Print D/T: S: 09/19/2019 (7624)PAGE 2 Signed ReportC REACTIVE [id number] 13:53:00 Test Item Value Reference Range Interpretation Comments C REACTIVE PROTEIN (test code = 0.629 MG/DL 0.000-0.3 H CRP) BASIC METABOLIC [id number] 13:52:00 Test Item Value Reference Range Interpretation [...] CA) 9.1 MG/DL 8.5-10.1 N VITAMIN D 63-[id number] 13:52:00 Test Item Value Reference Range Interpretation Comments VITAMIN D 25-HYDROXY (test code = VITD25) PROTHROMBIN [id number] 13:42:00 Test Item Value Reference Range Interpretation Comments PT PATIENT (test code = PTP) 13.2 SECONDS 9.3-12.9 H INTERNATIONAL NORMAL RATIO 1.16 INR Unit 0.8-1.2 N (test code = INR) THROMBOPLASTIN TIME [id number] 13:42:00 Test Item Value Reference Range Interpretation Comments THROMBOPLASTIN TIME PARTIAL 34.7 SECONDS 26-35 N (test code = PTT) CBC W/AUTO [id number] 13:33:00 Test Item Value Reference Range Interpretation [...] code = NO DIFF/SCN CRITERIA MDIFF) SED [id number] 13:33:00 Test Item Value Reference Range Interpretation Comments SED RATE (test code = SEDW) mm/hr 0-20 - CT LOWER EXTRM W/O C [id number] 11:45:00 Name: DAVID LOPEZ [facility] : 1955 Age/S: 64 / M [id number] Unit #: [id number] Loc: [place] [address] Phys: Trever Calvillo MD Acct: [id number] Dis Date: Status: PRE CLI PHONE #: [phone] Exam Date: 09/19/2019 1100 FAX #: Reason: PAIN LFT KNEE EXAMS: CPT: [id number] CT LOWER EXTRM W/[place] [address] EXAM: - CT LOWER EXTRM W/O C LT HISTORY: PAIN LFT KNEE Location code:C3 COMPARISON: 05/04/2012 TECHNIQUE: Multiple axial CT images were obtained of the left femur without the use of IV contrast. Coronal and sagittal reformatted images are provided. One or more of the following dose reduction techniques were used: Automated exposure control, adjustment of the mA and/or kVaccording to patient size, and/or utilization of iterative reconstruction technique. DLP: 747 mGy-cm. FINDINGS: Left total hip arthroplasty with 2 separate plate and screw fixation of the left femur present. There is also cerclage wire placement seen. The more anterior plate adjacent to the superior femur lies 12 mm anterior lateral femoral cortex with many of the screws lying within the anterior femoral cortex rather than centrally through the medullary space with the 2 most distal screws possibly reaching the superficial anterior femoral cortex. The lateral plate appears intact and fully engaged.The left total hip arthroplasty appears intact and fully engaged. The hardware creates significant streak artifact limiting evaluation. On axial [...] incomplete fracture of the medial femur and medial tothe femoral stem of the hip arthroplasty as detailed above however there is overlying callus not involved by the fracture and this is bridged by both the anterolateral and lateral hardware. PAGE 1 Signed Report (CONTINUED) Name: DAVID LOPEZ [facility] : 1955 Age/S: 64 / M [id number] [facility] Unit #: [id number] Loc: [place] [address] Phys: Trever Calvillo MD Acct: [id number] DisDate: Status: PRE CLI PHONE #: [phone] Exam Date: 09/19/2019 1100 FAX #: Reason: PAIN LFT KNEEEXAMS: CPT: [id number] [place] LOWER EXTRM W/[place] [address] <Continued> at 1145 Reported and signed by: Oswald Devi, [facility]: Trever Calvillo MD; Kiran Loera MD Technologist:Desire Hernandez, RT(R)(MR) CTDI: DLP: Trnscb Date/Time: 09/19/2019 (1145) t.[email or web address] Orig Print D/T: S: 09/19/2019 (1732) PAGE 2 Signed ReportXR CHEST 2 [id number] 01:04:06 No acute intrathoracic abnormality.* * * * * * * * ORIGINAL REPORT * * * * * * * *PROCEDURE: XR CHEST 2 VW CLINICAL INDICATION: dyspnea COMPARISON: 09/20/2017 FINDINGS: The lungs are clear, no infiltrate or nodule seen. No pleural effusion or pneumothorax is seen. The cardiomediastinal silhouette is no rmal. No acute bony abnormality. Mild arthritic changes throughout spine andshoulders. [facility], RadiantResults Inft User - 02/23/2019 8:04 PM CDT* [...] changes throughout spine andshoulders.IMPRESSIONNo acute intrathoracic abnormality. [facility]
[2022-03-14 15:58] LABS: Protime INR 1.08
[2022-03-14 15:59] LABS: Absolute Lymphocytes (CBC) 1.7 K/uL (0.7-4.9); Hematocrit 31.6 % (39.6-49.0); Lymphocytes % 32.3 % (15.3-44.8); MCV 100.7 fL (80-100); RBC Red Blood Cell Count 3.14 M/uL (4.33-5.43)
[2022-03-14 16:00] LABS: Urine Blood Negative (Negative); Urine Glucose Negative (Negative); Urine Protein Trace (Negative); Urine Specific Gravity 1.025 (1.005-1.030)
[2022-03-14 16:07] LABS: SARS-CoV-2 Antigen Rapid Res Negative (Negative)
[2022-03-14] MEDS ORDERED: THIAMINE 200 MG/2 ML INJ ONE (16:11)
[2022-03-14] MEDS ORDERED: MULTIVITAMINS 10 ML VIAL (INJ) IV ONE (16:11)
[2022-03-14] MEDS ORDERED: NA CHLORIDE 0.9% 1,000 ML ONE ×2 (16:11→17:34)
[2022-03-14] MEDS ORDERED: FOLIC ACID 5 MG/ML VIAL ONE ×2 (16:12→16:37)
[2022-03-14] MEDS ORDERED: FAMOTIDINE 20 MG/2 ML VIAL IV ONE (16:13)
--- NOTE | 2022-03-14 16:22 | RAD REPORT ---
EXAM DESCRIPTION: CT - Head C Spine Cap Wo Con - 03/14/2022 4:01 pm CLINICAL HISTORY: Head and neck injury with chest and abdominal pain status post fall TECHNIQUE: Computed axial tomography of head, neck, chest, abdomen and pelvis obtained. IV and oral contrast not requested. Coronal and sagittal reconstruction performed. All CT scans are performed using dose optimization technique as appropriate and may include automated exposure control or mA/KV adjustment according to patient size. COMPARISON: December 2001 FINDINGS: An intracranial bleed is not seen. The ventricles are normal in caliber. An extra-axial fluid collection is not noted. . Fluid within the sinuses/mastoids is not seen. A cervical fracture is not seen. No dislocation is noted. Postsurgical changes involve the cervical s pine The evaluation of mediastinum, sharon, vessels, solid organs and bowel are limited secondary to the lac k of contrast administration. A mediastinal hematoma is not noted. A pleural effusion is not seen. A lung contusion is not present. The liver,spleen, pancreas, adrenals, right kidney and bladder do not demonstrate a traumatic injury Left nephrectomy. Small left adrenal nodule unchanged probably benign. Spondylosis lumbar spine resul ting spinal stenosis. Moderate amount of stool within the colon IMPRESSION: No acute intracranial abnormality is seen. A cervical fracture is not visualized. If the patient continues have symptoms to suggest intracrania l/spinal cord pathology MRI be recommended No traumatic abnormality involving the chest/abdomen/pelvis.
[2022-03-14 16:28] LABS: ALT/SGPT 15 U/L (12-78); Albumin 2.6 g/dL (3.4-5.0); Alkaline Phosphatase 141 U/L (45-117); BUN Blood Urea Nitrogen 14 mg/dL (7-18); Bicarbonate 27 mmol/L (21-32); Bilirubin Total 0.2 mg/dL (0.2-1.0); Glomerular Filtration Rate 99 ml/min (=/>90); Glucose Level 119 mg/dL (74-106); Lipase 78 U/L (73-393); NT PRO-BNP 170 pg/mL (<125); Protein, Total 6.9 g/dL (6.4-8.2); Sodium Level 142 mmol/L (136-145); Troponin High Sensitivity 5.2 pg/mL (<58.9)
[2022-03-14 16:35] LABS: AST/SGOT 30 U/L (15-37); Bilirubin Direct < 0.1 mg/dL (0-0.2); Magnesium 1.6 mg/dL (1.8-2.4); Potassium 4.2 mmol/L (3.5-5.1)
[2022-03-14] MEDS ORDERED: CEFTRIAXONE 1000 MG/VIAL ONE (16:53)
--- NOTE | 2022-03-14 16:54 | RAD REPORT ---
EXAM DESCRIPTION: Itzel Single View03/14/2022 4:46 pm CLINICAL HISTORY: Cough COMPARISON: December 2021 FINDINGS: The lungs appear clear of acute infiltrate. The heart is normal size IMPRESSION: No acute abnormalities displayed
--- NOTE | 2022-03-14 17:15 | EDPHYS ---
Physician Documentation [facility] Name: David Lopez Age: 66 yrs Sex: Male : 1955 Arrival Date: 03/14/2022 Time: 14:47 Bed 4 Private MD: ED Physician Forest Guerra HPI: 03/14 16:02 This 66 yrs old Male presents to ER via EMS with complaints of Altered Mental emerald Status. 16:02 The patient presents with confusion, decreased responsiveness, trouble concentrating. emerald Onset: The symptoms/episode began/occurred 1 day(s) ago. Possible causes: CVA or TIA, head injury, low blood sugar, seizure, sepsis, unknown. Associated signs and symptoms: Pertinent positives: confusion, dizziness, gait abnormality, lightheadedness. Current symptoms: In the emergency department the patient's symptoms have improved, mildly. Patient's baseline: Neuro: alert but confused. The patient has experienced similar episodes in the past, multiple times. Historical: - Allergies: 15:21 No Known Allergies; jg9 - Home Meds: 16:39 aspirin 81 mg Oral TbEC once daily [Active]; atorvastatin 80 mg Oral tab 1 tab once jg9 daily [Active]; buprenorphine HCl 8 mg sublingual subl every 8 hours [Active]; clonazepam 1 mg Oral tab 1 tab 2 times per day [Active]; clopidogrel 75 mg Oral tab 1 tab once daily [Active]; indomethacin 25 mg Oral cap 1 cap 2 times per day [Active]; Levemir U-100 Insulin 100 unit/mL subcutaneous soln 20 unit [Active]; memantine 10 mg Oral tab 1 tab 2 times per day [Active]; metformin 500 mg Oral Tb24 1 tab 2 times per day [Active]; pantoprazole 40 mg Oral TbEC 1 tab once daily [Active]; sotalol 80 mg Oral tab daily [Active]; venlafaxine 150 mg Oral tr24 once daily [Active]; - PMHx: 14:49 CVA; Hypertension; Diabetes - NIDDM; Parkinsons; ss - PSHx: 14:49 hip replacement; ss - Immunization history:: Adult Immunizations unknown. - Family history:: not pertinent. - Social history:: Smoking status: unknown. ROS: 16:02 Constitutional: Negative for fever, chills, and weight loss, Eyes: Negative for injury, emerald pain, redness, and discharge, ENT: Negative for injury, pain, and discharge, Neck: Negative for injury, pain, and swelling, Cardiovascular: Negative for chest pain, palpitations, and edema, Respiratory: Negative for shortness of breath, cough, wheezing, and pleuritic chest pain, Abdomen/GI: Negative for abdominal pain, nausea, vomiting, diarrhea, and constipation, Back: Negative for injury and pain, : Negative for injury, bleeding, discharge, and swelling, MS/Extremity: Negative for injury and deformity, Skin: Negative for injury, rash, and discoloration, Psych: Negative for depression, anxiety, suicide ideation, homicidal ideation, and hallucinations, Allergy/Immunology: Negative for hives, rash, and allergies, Endocrine: Negative for neck swelling, polydipsia, polyuria, polyphagia, and marked weight changes, Hematologic/Lymphatic: Negative for swollen nodes, abnormal bleeding, and unusual bruising. 16:02 Neuro: Positive for altered mental status, weakness. Exam: 16:02 Constitutional: This is a well developed, well nourished patient who is awake, alert, emerald and in no acute distress. Head/Face: Normocephalic, atraumatic. Eyes: Pupils equal round and reactive to light, extra-ocular motions intact. Lids and lashes normal. Conjunctiva and sclera are non-icteric and not injected. Cornea within normal limits. Periorbital areas with no swelling, redness, or edema. ENT: Nares patent. No nasal discharge, no septal abnormalities noted. Tympanic membranes are normal and external auditory canals are clear. Oropharynx with no redness, swelling, or masses, exudates, or evidence of obstruction, uvula midline. Mucous membranes moist. Neck: Trachea midline, no thyromegaly or masses palpated, and no cervical lymphadenopathy. Supple, full range of motion without nuchal rigidity, or vertebral point tenderness. No Meningismus. Chest/axilla: Normal chest wall appearance and motion. Nontender with no deformity. No lesions are appreciated. Cardiovascular: Regular rate and rhythm with a normal S1 and S2. No gallops, murmurs, or rubs. Normal PMI, no JVD. No pulse deficits. Respiratory: Lungs have equal breath sounds bilaterally, clear to auscultation and percussion. No rales, rhonchi or wheezes noted. No increased work of breathing, no retractions or nasal flaring. Abdomen/GI: Soft, non-tender, with normal bowel sounds. No distension or tympany. No guarding or rebound. No evidence of tenderness throughout. Back: No spinal tenderness. No costovertebral tenderness. Full range of motion. Skin: Warm, dry with normal turgor. Normal color with no rashes, no lesions, and no evidence of cellulitis. MS/ Extremity: Pulses equal, no cyanosis. Neurovascular intact. Full, normal range of motion. Psych: Awake, alert, with orientation to person, place and time. Behavior, mood, and affect are within normal limits. 16:02 Neuro: Orientation: to person, Not oriented to place, time, situation, Mentation: no acute changes, per EMS, slow to respond, Memory: unable to test, Cranial nerves: grossly normal, is grossly normal based on the patient's age, no acute changes, Cerebellar function: unable to test, Motor: moves all fours, Sensation: no obvious gross deficits, appropriate no acute changes, Gait: not tested. Babinski testing is normal, seizure activity, is not displayed by the patient. Vital Signs: 14:50 BP 102 / 72; Pulse 78; Resp 18; Pulse Ox 97% on R/A; ss 15:00 BP 98 / 51; Pulse 77; Resp 14 S; Pulse Ox 100% on R/A; jg9 16:30 BP 122 / 71; Pulse 75; Resp 14 S; Pulse Ox 100% on R/A; jg9 17:00 BP 145 / 77; Pulse 85; Resp 24 S; Pulse Ox 98% on R/A; jg9 17:30 BP 141 / 69; Pulse 74; Resp 16 S; Pulse Ox 97% on R/A; jg9 18:30 BP 156 / 84; Pulse 84; Resp 21 S; Pulse Ox 94% on R/A; jg9 19:11 BP 107 / 79; Pulse 86; Resp 19; Pulse Ox 100% ; vc1 MDM: 14:52 Patient medically screened. emerald 16:10 Differential Diagnosis: CVA, electrolyte abnormality, hypoglycemia, intracranial bleed, emerald overdose, pneumonia, seizure, TIA, volume depletion. Data reviewed: vital signs, nurses notes, EMS record, lab test result(s), EKG, radiologic studies, CT scan, plain films. Data interpreted: groundwater monitoring technician: rate is 77 beats/min, rhythm is regular, Pulse oximetry: on room air is 100 %. Test interpretation: by ED physician or midlevel provider: ECG, plain radiologic studies. Counseling: I had a detailed discussion with the patient and/or guardian regarding: the historical points, exam findings, and any diagnostic results supporting the discharge/admit diagnosis, lab results, radiology results, the need for further work-up and treatment in the hospital. 03/14 15:33 Order name: Basic Metabolic Panel; Complete Time: 16:48 [facility] 03/14 15:33 Order name: CBC with Diff; Complete Time: 16:02 [facility] 03/14 15:33 Order name: LFT's; Complete Time: 16:48 [facility] 03/14 15:33 Order name: Magnesium; Complete Time: 16:48 [facility] 03/14 15:33 Order name: NT PRO-BNP; Complete Time: 16:48 [facility] 03/14 15:33 Order name: PT-INR; Complete Time: 16:02 [facility] 03/14 15:33 Order name: Troponin HS; Complete Time: 16:48 [facility] 03/14 15:33 Order name: XRAY Chest (1 view); Complete Time: 17:03 [facility] 03/14 15:33 Order name: SARS RAPID; Complete Time: 16:13 [facility] 03/14 15:33 Order name: Blood Culture Adult (2) [facility] 03/14 15:33 Order name: Lactate; Complete Time: 17:38 [facility] 03/14 15:33 Order name: Lipase; Complete Time: 16:48 [facility] 03/14 15:41 Order name: Urine Culture [facility] 03/14 16:00 Order name: Urine Dipstick-Ancillary; Complete Time: 16:02 [facility] 03/14 15:33 Order name: EKG; Complete Time: 15:35 [facility] 03/14 15:33 Order name: Cardiac monitoring; Complete Time: 15:37 [facility] 03/14 15:33 Order name: EKG - Nurse/Tech; Complete Time: 15:37 [facility] 03/14 15:33 Order name: IV Saline Lock; Complete Time: 15:37 [facility] 03/14 15:33 Order name: Labs collected and sent; Complete Time: 16:34 [facility] 03/14 15:33 Order name: O2 Sat Monitoring; Complete Time: 15:37 [facility] 03/14 15:33 Order name: Urine Dipstick-Ancillary (obtain specimen); Complete Time: 16:34 [facility] 03/14 15:33 Order name: CT Traumagram (Head C Spine CAP wo con); Complete Time: 16:48 [facility] 03/14 17:04 Order name: Vital Signs; Complete Time: 17:21 emerald Administered Medications: 16:20 Drug: Pepcid (famotidine) 20 mg Route: IVP; Site: left forearm; jg9 17:26 Follow up: Response: No adverse reaction jg9 16:25 Drug: NS 0.9% 1000 ml Route: IV; Rate: 1 bolus; Site: left forearm; jg9 17:20 Follow up: IV Status: Completed infusion; IV Intake: 1000ml jg9 16:30 Drug: foLIC Acid 1 mg Route: IVPB; Site: left forearm; jg9 17:26 Follow up: Response: No adverse reaction jg9 17:40 Follow up: IV Status: Completed infusion jg9 16:48 Drug: Rocephin (cefTRIAXone) 1 grams Route: IV; Rate: per protocol; Site: left forearm; jg9 17:20 Follow up: Response: No adverse reaction; IV Status: Completed infusion; IV Intake: [id number] 17:26 Drug: Banana Bag - (NS 0.9% 1000 ml, foLIC Acid 1 mg, Thiamine 100 mg, Multivitamin 1 jg9 amp) Route: IV; Rate: 125 ml/hr; Site: left forearm; 17:29 Not Given (Duplicate Order): NS 0.9% 1000 ml IV at 125 ml/hr continuous emerald 17:35 Drug: Magnesium Sulfate 1 grams Route: IVPB; Infused Over: 1 hrs; Site: left forearm; jg9 Disposition Summary: 03/14/22 17:15 Hospitalization Ordered Hospitalization Status: Observation emerald Provider: Uriah Parra cha Location: Telemetry/MedSurg (observation) emerald Condition: Fair eemrald Problem: new emerald Symptoms: have improved emerald Bed/Room Type: Standard emerald Room Assignment: 216(03/14/22 19:15) mw Diagnosis - Altered mental status, unspecified emerald - Weakness emerald - Hypomagnesemia emerald - Fall on same level, unspecified emerald - Fall (on) (from) other stairs and steps - 2 feet emerald - Dementia in other diseases classified elsewhere without behavioral disturbance emerald - Anemia, unspecified emerald Forms: - Medication Reconciliation Form emerald - SBAR form emerald Signatures: Dispatcher [employer] EDAnali Olivier RN RN Forest Kline MD MD cha Smirch, Shelby, RN RN ss Attema, Lee, MOTOR BUILDER [employer]ER-C [employer] BUILDER W[employer]ER-Cla1 Perla Robb RN RN jg9 Corrections: (The following items were deleted from the chart) 17:40 15:33 Oxygen Per Protocol ordered. emerald jg9 19:15 17:15 emerald marquez
--- NOTE | 2022-03-14 17:15 | ER ---
Nurse's Notes [facility] Name: David Lopez Age: 66 yrs Sex: Male : 1955 Arrival Date: 03/14/2022 Time: 14:47 Bed 4 Private MD: Diagnosis: Altered mental status, unspecified;Weakness;Hypomagnesemia;Fall on same level, unspecified;Fall (on) (from) other stairs and steps-2 feet;Dementia in other diseases classified elsewhere without behavioral disturbance;Anemia, unspecified Presentation: 03/14 14:47 Chief complaint: Patient states: Rolled out of bed this morning onto floor at 0730. ss Family reports that since he fell, he has not been speaking as much as he usually does. HX of dementia. Coronavirus screen: Client denies travel out of the [place] in the last 14 days. Ebola Screen: Patient denies exposure to infectious person. Patient denies travel to an Ebola-affected area in the 21 days before illness onset. 14:47 Method Of Arrival: [facility] 14:49 Initial Sepsis Screen: Does the patient meet any 2 criteria? No. Patient's initial ss sepsis screen is negative. Does the patient have a suspected source of infection? No. Patient's initial sepsis screen is negative. Risk Assessment: Do you want to hurt yourself or someone else? Patient reports no desire to harm self or others. Onset of symptoms was March 14, 2022. 14:49 Acuity: LEANNA 3 Triage Assessment: 15:00 General: Appears in no apparent distress. Behavior is calm, cooperative. Pain: Denies jg9 pain. Historical: - Allergies: 15:21 No Known Allergies; jg9 - Home Meds: 16:39 aspirin 81 mg Oral TbEC once daily [Active]; atorvastatin 80 mg Oral tab 1 tab once jg9 daily [Active]; buprenorphine HCl 8 mg sublingual subl every 8 hours [Active]; clonazepam 1 mg Oral tab 1 tab 2 times per day [Active]; clopidogrel 75 mg Oral tab 1 tab once daily [Active]; indomethacin 25 mg Oral cap 1 cap 2 times per day [Active]; Levemir U-100 Insulin 100 unit/mL subcutaneous soln 20 unit [Active]; memantine 10 mg Oral tab 1 tab 2 times per day [Active]; metformin 500 mg Oral Tb24 1 tab 2 times per day [Active]; pantoprazole 40 mg Oral TbEC 1 tab once daily [Active]; sotalol 80 mg Oral tab daily [Active]; venlafaxine 150 mg Oral tr24 once daily [Active]; - PMHx: 14:49 CVA; Hypertension; Diabetes - NIDDM; Parkinsons; ss - PSHx: 14:49 hip replacement; ss - Immunization history:: Adult Immunizations unknown. - Family history:: not pertinent. - Social history:: Smoking status: unknown. Screenin:20 Abuse screen: Denies threats or abuse. Denies injuries from another. Nutritional jg9 screening: No deficits noted. Tuberculosis screening: No symptoms or risk factors identified. Fall Risk Fall in past 12 months (25 points). IV access (20 points). Ambulatory Aid- None/Bed Rest/Nurse Assist (0 pts). Mental Status- Overestimates/Forgets Limitations (15 pts.). Assessment: 16:35 Reassessment: Family at bedside reports that patient buttocks region is red and jg9 starting to breakdown-no open ulcerations noted, patient will be q 2 hr turns. Patient from back to left side, vss, no distress. 18:49 Reassessment: bed alarm placed on bed, family at bedside reports that patient will try jg9 and get up and has fallen multiple times in the past few weeks. 19:00 : pressure ulcer appearing to be stage 2 or 3 noted to sacral reagion-family has been jg9 applying cream and dressing. Derm: Decubitus located on sacrum approximately 2.6 cm to 7.5 cm is stage III has erythematous edges. 19:10 Reassessment: Placed pulse ox on patients ear, provided family with warm blanket. No vc1 complaints or concerns at this time. Vital Signs: 14:50 BP 102 / 72; Pulse 78; Resp 18; Pulse Ox 97% on R/A; ss 15:00 BP 98 / 51; Pulse 77; Resp 14 S; Pulse Ox 100% on R/A; jg9 16:30 BP 122 / 71; Pulse 75; Resp 14 S; Pulse Ox 100% on R/A; jg9 17:00 BP 145 / 77; Pulse 85; Resp 24 S; Pulse Ox 98% on R/A; jg9 17:30 BP 141 / 69; Pulse 74; Resp 16 S; Pulse Ox 97% on R/A; jg9 18:30 BP 156 / 84; Pulse 84; Resp 21 S; Pulse Ox 94% on R/A; jg9 19:11 BP 107 / 79; Pulse 86; Resp 19; Pulse Ox 100% ; vc1 ED Course: 14:47 Patient arrived in ED. dh3 14:49 Triage completed. ss 14:49 Arm band placed on left wrist. ss 14:50 Maintain EMS IV. Dressing intact. Good blood return noted. Site clean \T\ dry. Gauge \T\ jg 9 site: 18 left fa. 14:52 Forest Guerra MD is Attending Physician. emerald 15:13 Perla Robb, RN is Primary Nurse. j9 16:03 CT Traumagram (Head C Spine CAP wo con) In Process Unspecified. EDMS 16:37 No apparent distress. Resting quietly. Pt visited by daughter, . jg9 16:37 Patient has correct armband on for positive identification. Bed in low position. Call jg9 light in reach. Side rails up X2. 16:48 XRAY Chest (1 view) In Process Unspecified. EDMS 17:05 Uriah Parra is Hospitalizing Provider. emerald 19:10 Primary Nurse role handed off by Perla Robb, RN vc1 19:10 Sharri Rosado, BERNY is Primary Nurse. vc1 19:37 No provider procedures requiring assistance completed. Patient admitted, IV remains in vc1 place. Administered Medications: 16:20 Drug: Pepcid (famotidine) 20 mg Route: IVP; Site: left forearm; jg9 17:26 Follow up: Response: No adverse reaction jg9 16:25 Drug: NS 0.9% 1000 ml Route: IV; Rate: 1 bolus; Site: left forearm; jg9 17:20 Follow up: IV Status: Completed infusion; IV Intake: 1000ml j9 16:30 Drug: foLIC Acid 1 mg Route: IVPB; Site: left forearm; jg9 17:26 Follow up: Response: No adverse reaction j9 17:40 Follow up: IV Status: Completed infusion j9 16:48 Drug: Rocephin (cefTRIAXone) 1 grams Route: IV; Rate: per protocol; Site: left forearm; jg9 17:20 Follow up: Response: No adverse reaction; IV Status: Completed infusion; IV Intake: [id number] 17:26 Drug: Banana Bag - (NS 0.9% 1000 ml, foLIC Acid 1 mg, Thiamine 100 mg, Multivitamin 1 jg9 amp) Route: IV; Rate: 125 ml/hr; Site: left forearm; 17:29 Not Given (Duplicate Order): NS 0.9% 1000 ml IV at 125 ml/hr continuous emerald 17:35 Drug: Magnesium Sulfate 1 grams Route: IVPB; Infused Over: 1 hrs; Site: left forearm; jg9 Medication: 19:12 VIS not applicable for this client. vc1 Intake: 17:20 IV: 10ml; Total: 10ml. jg9 17:20 IV: 1000ml; Total: 1010ml. jg9 Outcome: 17:15 Decision to Hospitalize by Provider. emerald 19:37 Admitted to Med/surg accompanied by tech, via stretcher, room 216, Report called to ammy Fulton RN 19:37 Condition: good 19:37 Instructed on the need for admit. 20:30 Patient left the ED. 1 Signatures: Dispatcher [employer] EDMS Forest Guerra MD MD cha Smirch, Shelby, RN RN Marjorie Brunner [facility] Perla Robb RN RN jg9 Sharri Rosado RN RN vc1 Corrections: (The following items were deleted from the chart) 14:49 14:47 Chief complaint: Patient states: Rolled out of bed this morning onto floor. Family reports that since he fell, he has not been speaking as much as he usually does. HX of dementia. ss
[2022-03-14] MEDS ORDERED: MAGNESIUM SULFATE 1 gm IVPB 1 GM/100 ML BAG IV ONE (17:34)
--- NOTE | 2022-03-14 18:20 | P.HP ---
Certification for Inpatient Patient admitted to: Observation With expected LOS: <2 Midnights Patient will require the following post-hospital care: None Practitioner: I am a practitioner with admitting privileges, knowledge of patient current condition, hospital course, and medical plan of care. Services: Services provided to patient in accordance with Admission requirements found in Title 42 Section 412.3 of the Code of Federal Regulations Patient History Date of Service: 03/14/22 Reason for admission: Falls, AMS History of Present Illness: 66-year-old male with history of atrial fibrillation, CVA, dementia, hypertension, hyperlipidemia who is primarily bedbound living at home with his presents the emergency department for AMS, frequent falls. Family reports he is fallen out of bed 3 times in the past week and again this morning around 730, he was on the ground for about 2 hours after a fall family feels as if patient is not back at his baseline mental status. They report that he is typically confused but he seems more confused and is talking less. He has nonfocal neurological exam he is globally confused his work-up in the emergency department was unremarkable aside from mild hypomagnesemia patient does appear very dry. ED provider wishes to admit under observation for further evaluation/management. Family reports that they have been in contact with [facility] and are working on possible placement, they feel as if they are having difficulty caring for him at home with his frequent falls and worsening mentation. We will consult social service technician as well. 6 Allergies No Known Allergies Allergy (Verified 08/12/18 00:38) Home Medications: Sotalol HCl [Betapace*] 80 mg PO DAILY 08/12/18 Atorvastatin Calcium [Lipitor] 80 mg PO DAILY #30 tablet 08/13/18 Metformin HCl [Metformin HCl ER] 1 tab PO BID 11/14/20 buprenorphine HCL [Buprenorphine HCl] 8 mg SL Q8HR 11/14/20 clonazePAM [Clonazepam] 1 mg PO BID 11/14/20 Pantoprazole [Protonix Tab*] 40 mg PO DAILY #40 tab 11/15/20 Ascorbic Acid [Vitamin C] 1 tab PO DAILY 09/13/21 Aspirin 1 tab PO DAILY 09/13/21 Cyanocobalamin (Vitamin B-12) [Vitamin B-12] 1 tab PO DAILY 09/13/21 Insulin Detemir [Levemir Flextouch] 20 unit SQ BID 09/13/21 Iron 65 mg PO DAILY 09/13/21 Memantine HCl [Namenda] 10 mg PO BID 09/13/21 Venlafaxine HCl [Venlafaxine HCl ER] 150 mg PO DAILY 12/23/21 Levofloxacin [Levaquin] 500 mg PO DAILY #12 tablet 12/24/21 - Past Medical/Surgical History Diabetic: Yes -: Diabetes mellitus type 2 insulin-dependent -: GERD -: BPH -: Depression -: HTN -: Chronic Pain -: History of asbestosis exposure -: Atrial fibrillation -: left kidney cancer 18 years ago -: CVA -: femur sx X3 -: neck surg -: [place] hip replacement -: right knee replacement -: left kidney removal -: back surgery Psychosocial/ Personal History: Patient lives at home - Family History Mother -: Diabetes Brother -: Diabetes - Social History Smoking Status: Never smoker Alcohol use: No CD- Drugs: No Caffeine use: No Place of Residence: Home Review of Systems is unable to be obtained Physical Examination - Physical Exam General: Alert, In no apparent distress, Oriented x2, Confused HEENT: Atraumatic, PERRLA, Other, EOMI, Sclerae nonicteric Neck: Supple, 2+ carotid pulse no bruit, No LAD, Without JVD or thyroid abnormality Respiratory: Clear to auscultation bilaterally, Normal air movement Cardiovascular: Regular rate/rhythm, Normal S1 S2 Capillary refill: <2 Seconds Gastrointestinal: Normal bowel sounds, No tenderness Musculoskeletal: No tenderness Integumentary: No rashes Neurological: Normal speech, Normal tone - Studies Laboratory Data (last 24 hrs) 03/14/22 15:45: PT 11.9, INR 1.08 03/14/22 15:45: WBC 5.3, Hgb 10.4 L, Hct 31.6 L, Plt Count 133 L 03/14/22 15:45: Sodium 142, Potassium 4.2, BUN 14, Creatinine 0.79, Glucose 119 H, Magnesium 1.6 L, Total Bilirubin 0.2, AST 30, ALT 15, Alkaline Phosphatase 141 H, Lipase 78 Assessment and Plan - Plan Assessment: Frequent falls, AMS versus worsening dementia Atrial fibrillation not on chronic anticoagulation Diabetes mellitus type 2insulin-dependent History of CVA Hypertension Hyperlipidemia Hypomagnesemia Plan: Frequent falls, AMS versus worsening dementia: Family reports overall worsening in patient's condition over the course of the last couple months but significantly worse over the course of the last 1 week or so. Family has hospital bed at home, patient is fallen out of the hospital bed 3 times in the past 1 week, again this morning he feels if they are having difficulty caring for him. There are no obvious causes for his altered mentation thus far his work-up. He does appear very dry we will continue IV fluids overnight consult neurology attempt obtain MRI. adoption services manager also consulted as family feels as if he would benefit with placement they have been in contact with [facility] and are in discussion with the DON at that facility. Informed patient family that is possible he may be discharged tomorrow and may need to complete that process on an outpatient basis but would attempt to assist in any way we can with social service technician. Atrial fibrillation not on chronic anticoagulation: Home medications continued, monitor on telemetry, rate controlled. Diabetes mellitus type 2insulin-dependent: ACH S Accu-Chek, sliding scale insulin. Patient on Levemir 20 units twice a day at home, family reports he has not been eating or drinking well we will just provide with sliding scale for now restart long-acting insulin if glucose is elevated History of CVA: Continue aspirin, Plavix, statin. Hypertension: Continue home medication Hyperlipidemia: Continue atorvastatin 80 mg Hypomagnesemia: Replaced in ED, protocol in place. DVT PPX: Lovenox Code status: Full Discharge Plan: Home Plan to discharge in: 24 Hours - Advance Directives Does patient have a Living Will: No Does patient have a Durable POA for Healthcare: Yes - Code Status/Comfort Care Code Status Assessed: Yes (Full code) Critical Care: No Time Spent Managing Pts Care (In Minutes): 70
[2022-03-14] MEDS: Ringers Lactate 1,000 ML IV SCH (20:07)
[2022-03-14] MEDS ORDERED: GABAPENTIN 400 MG CAP PO PRN (20:07)
[2022-03-14] MEDS ORDERED: ONDANSETRON 4 MG/2 ML VIAL IV PRN (20:07)
[2022-03-14] MEDS: INSULIN -REGULAR HUMAN 50 UNIT/0.5 ML ML SQ SCH (21:00)
[2022-03-14] MEDS ORDERED: ATORVASTATIN 80 MG TAB PO SCH (21:00)
[2022-03-14 22:29] VITALS: O2SAT 100
[2022-03-14] MEDS: MEMANTINE HCL 10 MG TABLET PO SCH (22:39)
[2022-03-14] MEDS: HEPARIN 5000 UNIT/ML 1 ML VIAL SQ SCH (22:39)
[2022-03-15 02:19] VITALS: BMI 24.3
[2022-03-15] MEDS: Ringers Lactate 1,000 ML IV SCH ×2 (04:00→16:07)
[2022-03-15 05:42] LABS: Hematocrit 29.3 % (39.6-49.0); Lymphocytes % 38.7 % (15.3-44.8); MCV 99.8 fL (80-100); MPV 7.8 fL (7.6-11.3); RBC Red Blood Cell Count 2.94 M/uL (4.33-5.43)
[2022-03-15] MEDS ORDERED: SOTALOL HCL 80 MG TAB PO SCH (06:00)
[2022-03-15 06:06] LABS: Albumin 2.5 g/dL (3.4-5.0); Bilirubin Total 0.3 mg/dL (0.2-1.0); Magnesium 1.9 mg/dL (1.8-2.4); Potassium 3.9 mmol/L (3.5-5.1); Protein, Total 6.6 g/dL (6.4-8.2)
[2022-03-15] MEDS: INSULIN -REGULAR HUMAN 50 UNIT/0.5 ML ML SQ SCH ×3 (07:30→17:22)
[2022-03-15] MEDS: HEPARIN 5000 UNIT/ML 1 ML VIAL SQ SCH (08:15)
[2022-03-15] MEDS: MEMANTINE HCL 10 MG TABLET PO SCH ×2 (08:15→08:54)
[2022-03-15] MEDS ORDERED: allopurinoL 300 MG TAB PO SCH (09:00)
[2022-03-15] MEDS ORDERED: ASPIRIN EC 81 MG TAB PO SCH (09:00)
[2022-03-15] MEDS ORDERED: BUPROPION HCL XL 150 MG TAB PO SCH (09:00)
[2022-03-15] MEDS ORDERED: POTASSIUM 25 MEQ EFFERV TAB PO ONE (09:00)
[2022-03-15] MEDS ORDERED: CLOPIDOGREL 75 MG TABLET PO SCH (09:00)
[2022-03-15] MEDS ORDERED: VENLAFAXINE HCL XR 75 MG CAP PO SCH (09:00)
[2022-03-15] MEDS ORDERED: GABAPENTIN 400 MG CAP PO SCH (14:00)
[2022-03-15] MEDS ORDERED: HOME MED 1 EA UNK (Gabapentin [Gabapentin] 800 MG Tablet) PO SCH (14:00)
--- NOTE | 2022-03-15 15:44 | P.DS ---
Admission Date: 03/14/22 Discharge Date: 03/15/22 Disposition: DC HOME/HOME HEALTH CARE Discharge Condition: FAIR Reason for Admission: Falls, AMS - Problems (1) Falls Current Visit: Yes Status: Acute (2) Dementia Current Visit: Yes Status: Acute (3) Decubitus ulcer of buttock, stage 2 Current Visit: No Status: Acute (4) DM2 (diabetes mellitus, type 2) Current Visit: No Status: Chronic Qualifiers: Brief History of Present Illness: 66-year-old male with history of atrial fibrillation, CVA, dementia, hypertension, hyperlipidemia who is primarily bedbound living at home with his presented to the emergency department for AMS, frequent falls. Family reports he is fallen out of bed 4 times in the past week, last fall was yesterday. Family felt patient was more confused than his baseline dementia. No focal deficits noted on neurologic exams in the ED. Emergency department work up was unremarkable aside from mild hypomagnesemia. Family reports that they have been in contact with [facility] and are working on possible placement. Patient placed under observation for further management. Hospital Course: Patient placed on observation on the medical floor and hydrated briefly with IV fluid. His mental status was at baseline on the medical floor. Labs and imaging reviewed and are unremarkable. Vitals are stable. Patient deemed medically stable for discharge. Patient is bedridden. Family state his bed broke during his last fall. He has stage II sacral decubitus ulcer. Family is requesting for a bed for the meantime as there is a process ongoing for his placement in a long-term care facility. Social service consulted to assist with arrangement for hospital bed and a eulalia ress. Vital Signs/Physical Exam: Temp Pulse Resp BP Pulse Ox 96.9 F 64 18 118/63 100 03/15/22 12:00 03/15/22 12:00 03/15/22 12:00 03/15/22 12:03/15/22 12:00 General: In no apparent distress, Confused HEENT: Mucous membr. moist/pink Neck: Supple, JVD not distended Respiratory: Clear to auscultation bilaterally, Normal air movement Cardiovascular: No edema, Regular rate/rhythm, Normal S1 S2 Gastrointestinal: Soft and benign, Non-distended Musculoskeletal: No swelling Neurological: Other (No focal motor deficit.) Laboratory Data at Discharge: WBC 5.2 K/uL (4.3-10.9) 03/15/22 05:05 Hgb 9.9 g/dL (13.6-17.9) L 03/15/22 05:05 Hct 29.3 % (39.6-49.0) L 03/15/22 05:05 Plt Count 110 K/uL (152-406) L 03/15/22 05:05 PT 11.9 SECONDS (9.5-12.5) 03/14/22 15:45 INR 1.08 03/14/22 15:45 Sodium 143 mmol/L (136-145) 03/15/22 05:05 Potassium 3.9 mmol/L (3.5-5.1) 03/15/22 05:05 BUN 9 mg/dL (7-18) 03/15/22 05:05 Creatinine 0.70 mg/dL (0.55-1.3) 03/15/22 05:05 Glucose 85 mg/dL (74-106) 03/15/22 05:05 Magnesium 1.9 mg/dL (1.8-2.4) 03/15/22 05:05 Total Bilirubin 0.3 mg/dL (0.2-1.0) 03/15/22 05:05 AST 21 U/L (15-37) 03/15/22 05:05 ALT 13 U/L (12-78) 03/15/22 05:05 Alkaline Phosphatase 120 U/L (45-117) H 03/15/22 05:05 Lipase 78 U/L (73-393) 03/14/22 15:45 Home Medications: Sotalol HCl [Betapace*] 80 mg PO DAILY 08/12/18 Atorvastatin Calcium [Lipitor] 80 mg PO DAILY #30 tablet 08/13/18 Metformin HCl [Metformin HCl ER] 1 tab PO BID 11/14/20 Pantoprazole [Protonix Tab*] 40 mg PO DAILY #40 tab 11/15/20 Ascorbic Acid [Vitamin C] 1 tab PO DAILY 09/13/21 Aspirin 1 tab PO DAILY 09/13/21 Insulin Detemir [Levemir Flextouch] 20 unit SQ BID 09/13/21 Iron 65 mg PO DAILY 09/13/21 Venlafaxine HCl [Venlafaxine HCl ER] 150 mg PO DAILY 12/23/21 Allopurinol 300 mg PO DAILY 03/15/22 Bupropion HCl [Wellbutrin Xl] 150 mg PO DAILY 03/15/22 Cholecalciferol (Vitamin D3) [Vitamin D3] 1 tab PO DAILY 03/15/22 Clopidogrel Bisulfate [Plavix*] 75 mg PO DAILY 03/15/22 Docusate [Colace Cap*] 100 mg PO DAILY 03/15/22 Gabapentin 800 mg PO TID 03/15/22 Indomethacin 25 mg PO BIDWM 03/15/22 Linaclotide [Linzess] 72 mg PO DAILY 03/15/22 Polyethylene Glycol 3350 [Miralax] 17 g PO DAILY 03/15/22 Quetiapine Fumarate [Seroquel] 25 mg PO BEDTIME 03/15/22 Venlafaxine HCl [Effexor XR] 37.5 mg PO DAILY AT SUPPER 03/15/22 Venlafaxine HCl [Effexor XR] 150 mg PO DAILY WITH BREAKFAST 03/15/22 clonazePAM [Klonopin*] 0.5 mg PO BID 03/15/22 Diet: ADA Activity: Fall precautions Followup: Bryant Loera DO [Primary Care Provider] - 1 Week
[2022-03-15] MEDS ORDERED: INDOMETHACIN 25 MG CAP PO SCH (17:00)
[2022-03-15] MEDS ORDERED: VENLAFAXINE HCL XR 37.5MG CAP PO SCH (17:00)
[2022-03-15] MEDS ORDERED: METFORMIN ER 500 MG TAB PO SCH (17:00)
[2022-03-15 18:47] VITALS: BP 142/71; TEMP 97
[2022-03-15] MEDS ORDERED: HOME MED 1 EA UNK (Insulin Detemir [Levemir Flextouch] 100 UNIT/ML Insuln.Pen) SQ SCH (21:00)
[2022-03-15] MEDS ORDERED: INSULIN GLARGINE 100 UNIT/ML SQ SCH (21:00)
[2022-03-16] MEDS ORDERED: VENLAFAXINE HCL XR 75 MG CAP PO SCH (08:00)
[2022-03-16] MEDS ORDERED: HOME MED 1 EA UNK (Venlafaxine Hcl [Effexor Xr] 150 MG Cap.Er.24h) PO SCH (08:00)
[2022-03-16] MEDS ORDERED: ATORVASTATIN 80 MG TAB PO SCH (09:00)
[2022-03-16] MEDS ORDERED: CLOPIDOGREL 75 MG TABLET PO SCH (09:00)
[2022-03-16] MEDS ORDERED: HOME MED 1 EA UNK (Linaclotide [Linzess] 72 MCG Capsule) PO SCH (09:00)
[2022-03-16] MEDS ORDERED: HOME MED 1 EA UNK (Ascorbic Acid [Vitamin C] 500 MG Capsule) PO SCH (09:00)
[2022-03-16] MEDS ORDERED: HOME MED 1 EA UNK (Iron [Iron] 18 MG Tablet) PO SCH (09:00)
[2022-03-16] MEDS ORDERED: SOTALOL HCL 80 MG TAB PO SCH (09:00)
[2022-03-16] MEDS ORDERED: ASCORBIC ACID 500 MG TABLET PO SCH (09:00)
[2022-03-16] MEDS ORDERED: FERROUS SULFATE 325 MG TAB PO SCH (09:00)
[2022-03-16] MEDS ORDERED: VITAMIN D 1000 UNIT TAB PO SCH (09:00)
[2022-03-16] MEDS ORDERED: PANTOPRAZOLE 40MG TABLET PO SCH (09:00)
[2022-03-16] MEDS ORDERED: HOME MED 1 EA UNK (Cholecalciferol (Vitamin D3) [Vitamin D3] 25 MCG Capsule) PO SCH (09:00)
[2022-03-16] MEDS ORDERED: BUPROPION HCL XL 150 MG TAB PO SCH (09:00)
[2022-03-16] MEDS ORDERED: ASPIRIN 81 MG CHEWABLE TABLET PO SCH (09:00)
[2022-03-16] MEDS ORDERED: POLYETHYL GLY 3350 17 GM/DOSE PO SCH (09:00)
[2022-03-16] MEDS ORDERED: DOCUSATE NA 100 MG CAP PO SCH (09:00)
[2022-03-16] MEDS ORDERED: allopurinoL 300 MG TAB PO SCH (09:00)
--- NOTE | 2022-03-17 08:23 | EKG ---
Test Date: 2022-03-14 Test Time: 14:38:45 Stamp Collector: ADRIAN MEASUREMENT RESULTS: Intervals: Rate: 76 MO: 176 QRSD: 90 QT: 404 QTc: 454 [place]: P: 35 MO: 176 QRS: 43 T: 23 INTERPRETIVE STATEMENTS: Normal sinus rhythm Normal ECG Compared to ECG 01/01/2022 15:30:08 T-wave abnormality no longer present Possible ischemia no longer present Electronically Signed On 03-17-22 08:12:33 CDT by Fransisco Edouard
== END 2022-03-15 19:00 | disposition home health service (06) ==
LOC: ER 14:45 → ERHOLD 18:06 → 2ND 19:28
PROVIDERS: ADMIT Internal Medicine; ATTEND Internal Medicine
DX: R41.82 Altered mental status, unspecified (principal); W06.XXXA Fall from bed, initial encounter; Y92.009 Unspecified place in unspecified non-institutional (private) residence as the place of occurrence of the external cause; F03.90 Unspecified dementia, unspecified severity, without behavioral disturbance, psychotic disturbance, mood disturbance, and anxiety; L89.302 Pressure ulcer of unspecified buttock, stage 2; E11.9 Type 2 diabetes mellitus without complications; I48.91 Unspecified atrial fibrillation; I10 Essential (primary) hypertension; E78.5 Hyperlipidemia, unspecified; E83.42 Hypomagnesemia; K21.9 Gastro-esophageal reflux disease without esophagitis; N40.0 Benign prostatic hyperplasia without lower urinary tract symptoms; D64.9 Anemia, unspecified; G89.29 Other chronic pain; R53.1 Weakness; F32.A Depression, unspecified; R29.6 Repeated falls; Z74.01 Bed confinement status; Z79.84 Long term (current) use of oral hypoglycemic drugs; Z79.82 Long term (current) use of aspirin; Z79.4 Long term (current) use of insulin; Z79.899 Other long term (current) drug therapy; Z20.822 Contact with and (suspected) exposure to COVID-19; Z86.73 Personal history of transient ischemic attack (TIA), and cerebral infarction without residual deficits; Z96.643 Presence of artificial hip joint, bilateral; Z96.651 Presence of right artificial knee joint; Z85.528 Personal history of other malignant neoplasm of kidney; Z90.5 Acquired absence of kidney; Z83.3 Family history of diabetes mellitus
CPT/HCPCS: 96365; 93005; 87040 ×2; 87088; 85025 ×2; 87086; 80048; 36415; 83735 ×2; 85610; 82947 ×4; 80076; 83605; 81003; 84484; 83690; 80053; 83880; 70450; 71250; 72125; 71045; 96375; 99285; 87811; J3411; J1644 ×2; J3475; J7120 ×2; J7030 ×2; G0378 ×3